=== PATIENT | female | born 1955 | race Caucasian/White ===

== ENCOUNTER 2016-07-24 06:30 | Day surgery (SDC) | payer MEDICARE, OTHER ==
[2016-07-21 16:26] VITALS: BMI 37.9
[~2016-07-24 06:30] MED LIST: ALPRAZolam 0.25 MG TAB PO PRN; ALPRAZolam 0.5 MG TAB PO PRN; ASPIRIN 325 MG TAB PO STA; ATORVASTATIN 80 MG TAB PO STA; NITROGLYCERIN SL TABS 0.4 MG TAB SUBLINGUAL PRN; SODIUM CHLORIDE 0.9% 1,000 ML in EMPTY BAG 1 BAG IV ONE
[2016-07-24 07:05] VITALS: TEMP 98.5
[2016-07-24] MEDS ORDERED: SODIUM CHLORIDE 0.9% 1,000 ML IV ONE (07:09)
[2016-07-24] MEDS ORDERED: LIDOCAINE 2% INJ 20 MG/ML (20 ML MDV) ONE (07:17)
[2016-07-24] MEDS ORDERED: MIDAZOLAM 2 MG/2 ML VIAL ONE (07:46)
[2016-07-24] MEDS ORDERED: MIDAZOLAM 2 MG/2 ML VIAL IVP ONE (07:47)
[2016-07-24] MEDS ORDERED: LIDOCAINE 2% INJ 20 MG/ML SQ ONE (07:48)
[2016-07-24] MEDS ORDERED: IOHEXOL 300 MG/ML 100 ML BOTTLE IV ONE (08:03)
[2016-07-24] MEDS ORDERED: RX INFO: IV CONTRAST WAS GIVEN 1 EACH MISC MISCELLANE PRN (08:05)
[2016-07-24] MEDS ORDERED: ATORVASTATIN 20 MG TAB PO STA (08:10)
[2016-07-24] MEDS ORDERED: SODIUM CHLORIDE 0.9% 1,000 ML IV SCH (08:15)
[2016-07-24 08:42] LABS: Cholesterol 149 mg/dL (<200); HDL Cholesterol 54 mg/dL (40-60); Triglycerides 65 mg/dL (<150)
--- NOTE | 2016-07-24 08:49 | CC ---
DATE OF SERVICE: INDICATION: Chest pain with abnormal stress test showing ischemia involving inferior wall. PROCEDURE NOTE: After obtaining informed consent, left heart catheterization and coronary angiogram are performed via the right femoral artery using standard Zachary catheters. Patient tolerated the procedure well without any obvious immediate complications. FINDINGS: 1. HEMODYNAMICS: Left ventricular end-diastolic pressure is 26 to 28 mm. There is no significant gradient across the aortic valve. 2. LEFT VENTRICULOGRAM: Left ventriculogram was not performed. 3. ANGIOGRAPHIC DATA: Left main coronary artery: Left main coronary artery is a normal size vessel and is free of stenosis. It divides into left anterior descending coronary artery and circumflex coronary artery. LAD shows a moderate atherosclerotic plaque in its midportion right at the origin of diagonal branch. It seems to be a 50% stenosis. Circumflex coronary artery is a nondominant vessel and is free of significant disease. Right coronary artery is a large dominant vessel and is free of significant stenosis. CONCLUSION: Moderate stenosis involving mid left anterior descending coronary artery right at the origin of diagonal branch. PLAN: Patient's chest discomfort was atypical. Stress test abnormality was in the inferior wall. Due to this, I am advising her medical therapy at this time with aspirin, beta blockers, nitrates and statins. If she has further episodes of chest pain, we are going to bring her back and perform angioplasty of the LAD. Thank you for allowing us to participate in the care of this pleasant lady.
[2016-07-24] MEDS ORDERED: ISOSORBIDE MONONITRATE ER 30 MG TAB.ER.24H PO SCH (09:00)
[2016-07-24] MEDS ORDERED: ATENOLOL 25 MG TAB PO SCH (09:00)
[2016-07-24 10:37] VITALS: RESP 18
[2016-07-24 11:30] VITALS: BP 132/70
== END 2016-07-24 16:10 | disposition home or self-care (01) ==
LOC: CATHCVL 06:30
PROVIDERS: ATTEND Internal Medicine Cardiovascular Disease
DX: I25.10 Atherosclerotic heart disease of native coronary artery without angina pectoris (principal); R94.39 Abnormal result of other cardiovascular function study; R07.2 Precordial pain; I10 Essential (primary) hypertension; E78.5 Hyperlipidemia, unspecified; Z79.82 Long term (current) use of aspirin; Z79.899 Other long term (current) drug therapy
CPT/HCPCS: 93458; 80061; C1894; C1769; J2001; J2250; Q9967

== ENCOUNTER 2016-07-26 21:33 | Observation (INO) | payer MEDICARE, OTHER ==
[2016-07-26 22:06] LABS: Basophils % (A) 0 %; CH 31.3; CHCM 32.7; Eosinophils # (A) 0.2 k/uL (0-0.7); Eosinophils % (A) 5 %; HCT 34.8 % (34.0-46.0); HDW 2.25; HGB 11.2 gm/dL (11.4-16.0); Luc # (Auto) 0.14; Luc % (Auto) 3; Lymphocytes # (A) 1.7 k/uL (1.0-4.8); Lymphocytes % (A) 36 %; MCHC 32.3 g/dL (31.0-37.0); MCV 95.9 fL (80.0-100.0); Mean Platelet Volume 8.1; Monocytes # (A) 0.2 k/uL (0-1.0); Monocytes % (A) 5 %; Neutrophils # (A) 2.4 k/uL (1.3-7.7); Neutrophils % (A) 51 %; RBC 3.63 m/uL (3.80-5.40); RDW 13.1 % (11.5-15.5); WBC 4.8 k/uL (3.8-10.6); WBC (Perox) 4.91
[2016-07-26 22:20] LABS: ALT 32 U/L (9-52); AST 26 U/L (14-36); Alkaline Phosphatase 84 U/L (38-126); Amylase 42 U/L (30-110); Anion Gap 8 mmol/L; Blood Urea Nitrogen 18 mg/dL (7-17); Calcium 8.9 mg/dL (8.4-10.2); Carbon Dioxide 30 mmol/L (22-30); Chloride 104 mmol/L (98-107); Glucose 108 mg/dL (74-99); Magnesium 1.7 mg/dL (1.6-2.3); Non-African American GFR(MDRD) 51 (>60 ml/min/1.73 sqM); Potassium 4.4 mmol/L (3.5-5.1); Sodium 142 mmol/L (137-145); Total Bilirubin 0.4 mg/dL (0.2-1.3); Total Protein 6.7 g/dL (6.3-8.2)
--- NOTE | 2016-07-26 22:24 | XR ---
EXAM: XR Chest, 1 View. CLINICAL HISTORY: Reason: chest pain TECHNIQUE: Frontal view of the chest. COMPARISON: Portal chest 06/02/2011 FINDINGS: Lungs: Lungs are clear Pleural space: Unremarkable. No pneumothorax. Heart: No cardiomegaly. Mediastinum: Unremarkable. Bones/joints: Unremarkable. IMPRESSION: No evidence of acute cardiopulmonary disease.
[2016-07-26 22:27] LABS: Creatine Kinase 99 U/L (30-135)
--- NOTE | 2016-07-26 22:35 | ED ---
Chest Pain HPI - General Chief Complaint: Chest Pain Stated Complaint: LALO/Chest Pain Time Seen by Provider: 07/26/16 21:47 Source: patient Mode of arrival: wheelchair Limitations: no limitations - History of Present Illness Initial Comments: This patient is 61-year-old woman who presents to be evaluated for substernal chest pain. She states that the pain is similar to pain she was having an last week when she had a heart catheterization. She was told she had a recurrence of similar pain to come back to the emergency department, as she may have to have stent placement. States that she was at rest today when the pain started, it is substernal, heavy sensation, and constant. She does not identify any worsening or relieving factors. MD Complaint: chest pain -: hour(s) Onset: during rest Pain Location: substernal Pain Radiation: LUE Severity: moderate Quality: heaviness Consistency: constant Improves With: nothing Worsens With: nothing Treatments Prior to Arrival: none - Related Data Home Medications Medication Instructions Recorded Confirmed Aspirin 81 mg PO DAILY 08/06/14 07/24/16 Cholecalciferol [Vitamin D3] 2,000 unit PO DAILY@1200 08/06/14 07/21/16 Citalopram Hydrobromide 40 mg PO DAILY 08/06/14 07/21/16 [Citalopram HBr] Cyanocobalamin [Vitamin B-12] 1,000 mcg PO Q2D 08/06/14 07/24/16 LORazepam [Ativan] 1 mg PO BID 08/06/14 07/21/16 Omeprazole [PriLOSEC] 40 mg PO AC-BRKFST 08/06/14 07/21/16 ARIPiprazole [Abilify] 20 mg PO DAILY 01/23/15 07/21/16 Ibuprofen [Motrin] 600 mg PO Q8HR PRN 01/23/15 07/24/16 QUEtiapine FUMARATE [SEROquel XR] 400 mg PO 1700 01/23/15 07/21/16 QUEtiapine [SEROquel] 400 mg PO HS 01/23/15 07/21/16 Atenolol [Tenormin] 25 mg PO DAILY 07/21/16 07/21/16 Gabapentin [Neurontin] 300 mg PO BID 07/21/16 07/21/16 Isosorbide Mononitrate [Isosorbide 30 mg PO DAILY 07/21/16 07/21/16 Mononitrate ER] Loratadine [Claritin] 10 mg PO DAILY 07/21/16 07/24/16 Sennosides [Senna] 8.6 mg PO BID 07/21/16 07/21/16 Acetaminophen [Pain Relief] 325 mg PO DIRECTED PRN 07/22/16 07/22/16 Nitroglycerin Sl Tabs [Nitrostat] 0.4 mg SUBLINGUAL Q5M PRN 07/22/16 07/22/16 Vit A/Vit C/Vit E/Zinc/Copper 1 cap PO DAILY 07/22/16 07/22/16 [ICAPS SOFTGEL] Allergies Allergy/AdvReac Type Severity Reaction Status Date / Time No Known Allergies Allergy Verified 07/21/16 16:09 Review of Systems ROS Statement: Those systems with pertinent positive or pertinent negative responses have been documented in the HPI. ROS Other: All systems not noted in ROS Statement are negative. Constitutional: Denies: fever, chills Respiratory: Denies: cough, dyspnea, wheezes Cardiovascular: Reports: as per HPI, chest pain. Denies: palpitations, dyspnea on exertion, orthopnea, edema, syncope Gastrointestinal: Denies: abdominal pain, nausea, vomiting Genitourinary: Denies: dysuria, frequency Skin: Denies: rash Neurological: Denies: headache, weakness EKG Findings - EKG Results: EKG: interpreted by CALE TORIBIO (Rate 81 bpm), sinus rhythm, normal axis, normal QRS, normal ST/T, no acute changes - [place], Pacemaker, Normal: Normal tracing: normal tracing Past Medical History Past Medical History: Asthma, CVA/TIA, Eye Disorder, GERD/Reflux, Hyperlipidemia , Hypertension Additional Past Medical History / Comment(s): Macular degeneration,bronchial asthma,Tamra-Caregiver at [facility] pt signs own consent. History of Any Multi-Drug Resistant Organisms: None Reported Past Surgical History: Back Surgery, Cholecystectomy, Ear Surgery, Hysterectomy , Tonsillectomy Additional Past Surgical History / Comment(s): eye surgery Past Anesthesia/Blood Transfusion Reactions: No Reported Reaction Past Psychological History: Anxiety, Schizoaffective Disorder Smoking Status: Never smoker Past Alcohol Use History: None Reported Past Drug Use History: None Reported - Past Family History Mother Family Medical History: Myocardial Infarction ([place]) Father Family Medical History: Cancer Additional Family Medical History / Comment(s): throat CA Brother(s) Family Medical History: Cancer Additional Family Medical History / Comment(s): liver General Exam Limitations: no limitations General appearance: alert, in no apparent distress Head exam: Present: atraumatic, normocephalic Eye exam: Present: normal appearance. Absent: scleral icterus, conjunctival injection ENT exam: Present: normal oropharynx Neck exam: Present: normal inspection Respiratory exam: Present: normal lung sounds bilaterally. Absent: respiratory distress, wheezes, rales, rhonchi, stridor Cardiovascular Exam: Present: regular rate, normal rhythm, normal heart sounds. Absent: systolic murmur, diastolic murmur, rubs, gallop GI/Abdominal exam: Present: soft. Absent: distended, tenderness, guarding, rebound, mass Extremities exam: Present: normal inspection, normal capillary refill. Absent: pedal edema, calf tenderness Back exam: Present: normal inspection. Absent: CVA tenderness (R), CVA tenderness (L) Neurological exam: Present: alert Skin exam: Present: warm, dry, intact, normal color. Absent: rash Course Vital Signs 07/26/16 07/26/16 07/26/16 21:37 22:31 22:44 Temperature 98.3 F 98 F Pulse Rate 81 69 72 Respiratory 20 20 18 Rate Blood Pressure 137/61 116/55 118/69 O2 Sat by Pulse 99 98 99 Oximetry 07/27/16 00:01 Temperature 97.7 F Pulse Rate 77 Respiratory 18 Rate Blood Pressure 142/83 O2 Sat by Pulse 98 Oximetry Disposition Clinical Impression: Chest pain Disposition: ADMITTED IP TO THIS HOSP Condition: Fair Instructions: Chest Pain (ED)
[2016-07-26 22:40] LABS: Creatine Kinase MB 0.9 ng/mL (0.0-2.4); Troponin I <0.012 ng/mL (0.000-0.034)
[2016-07-26] MEDS ORDERED: RX INFO: IV CONTRAST WAS GIVEN 1 EACH MISC MISCELLANE PRN (23:16)
--- NOTE | 2016-07-27 01:18 | CT ---
EXAM: CT Angiography Chest With Intravenous Contrast. CLINICAL HISTORY: Reason: Pain TECHNIQUE: Axial computed tomographic angiography images of the chest with intravenous contrast using pulmonary embolism protocol. CTDI is 13.20 mGy and DLP is 508.20 mGy-cm MIP reconstructed images were created and reviewed. COMPARISON: No relevant prior studies available. FINDINGS: Pulmonary arteries: No evidence of pulmonary emboli involving main pulmonary arteries or their major branches. Aorta: Heart size is within normal limits. No evidence of thoracic aortic aneurysm or dissection. Lungs: Strandy opacities anterior right upper lobe suggesting fibrotic scarring or subsegmental atelectasis. Strandy opacity involving the lingula and right lower lobe suggesting scarring or subsegmental atelectasis. Pleural space: No evidence of pericardial or pleural effusion. No pneumothorax. Heart: See above. Soft tissues: Unremarkable. Lymph nodes: Unremarkable. No enlarged lymph nodes. IMPRESSION: No evidence of pulmonary thromboembolic disease.
[2016-07-27] MEDS ORDERED: ENOXAPARIN 100 MG/ML SYRINGE SQ STA (01:31)
[2016-07-27] MEDS ORDERED: NITROGLYCERIN SL TABS 0.4 MG TAB SUBLINGUAL PRN (01:31)
[2016-07-27 02:23] VITALS: BMI 38.0
[2016-07-27 04:03] LABS: Creatine Kinase 78 U/L (30-135)
[2016-07-27 04:16] LABS: Creatine Kinase MB 0.8 ng/mL (0.0-2.4); Troponin I <0.012 ng/mL (0.000-0.034)
[2016-07-27] MEDS ORDERED: ISOSORBIDE MONONITRATE ER 30 MG TAB.ER.24H PO SCH (09:00)
[2016-07-27 11:30] LABS: Creatine Kinase 63 U/L (30-135)
[2016-07-27 11:40] LABS: Creatine Kinase MB 0.7 ng/mL (0.0-2.4)
[2016-07-27 11:44] LABS: Troponin I <0.012 ng/mL (0.000-0.034)
[2016-07-27] MEDS: CITALOPRAM HYDROBROMIDE 20 MG TAB PO SCH (11:52)
[2016-07-27] MEDS: SENNOSIDES 8.6 MG TAB PO SCH ×2 (11:52→20:28)
[2016-07-27] MEDS: ATENOLOL 25 MG TAB PO SCH (11:53)
[2016-07-27] MEDS: GABAPENTIN 300 MG CAP PO SCH ×2 (11:53→20:35)
[2016-07-27] MEDS: PANTOPRAZOLE 40 MG TABLET PO SCH (11:53)
[2016-07-27] MEDS: LORazepam 1 MG TAB PO SCH ×2 (11:56→20:31)
[2016-07-27] MEDS ORDERED: ISOSORBIDE MONONITRATE ER 30 MG TAB.ER.24H PO STA (12:19)
--- NOTE | 2016-07-27 12:40 | HP ---
DATE OF ADMISSION: Patient is a 61-year-old who came in with complaints of substernal chest pain. Patient had similar pain. Patient had a cardiac catheterization which showed 50% occlusion in the LAD. Patient was evaluated by Cardiology today. Patient was having some lightheadedness. Patient's pain was about 6/10 in severity, it lasted for a few minutes and patient denied any radiation of the chest pain. Patient denied any cough or runny nose. Patient's chest is nonpleuritic, not associated with food and patient had troponins that are negative. EKG's are normal sinus rhythm. Patient is being transferred to selective care as per recommendation from Cardiology with possibility of repeat cardiac catheterization. Patient had a recent cardiac cath which showed 58% occlusion in LAD as mentioned above because of the abnormal stress test. Patient's chest pain is nonreproducible. REVIEW OF SYSTEMS: CONSTITUTIONAL: No fever, no malaise, no fatigue. HEENT: No recent visual problems or hearing problems. Denied any sore throat. CARDIOVASCULAR: As described in HPI. PULMONARY: No shortness of breath, no cough, no hemoptysis. GASTROINTESTINAL: No diarrhea, no nausea, no vomiting, no abdominal pain. Normoactive bowel sounds. NEUROLOGICAL: No headaches, no weakness, no numbness. HEMATOLOGICAL: Denies any bleeding or petechiae. GENITOURINARY: Denies any burning micturition, frequency, or urgency. MUSCULOSKELETAL/RHEUMATOLOGICAL: Denies any joint pain, swelling, or any muscle pain. ENDOCRINE: Denies any polyuria or polydipsia. The rest of the 14 point review of systems is negative. Home medications include: 1. Aspirin. 2. Cholecalciferol. 3. Citalopram. 4. Cyanocobalamin. 5. Lorazepam. 6. Omeprazole. 7. Ibuprofen. 8. Seroquel. 9. Atenolol. 10. Gabapentin. 11. Isosorbide mononitrate. 12. Loratadine. 13. Senna. 14. Acetaminophen. 15. Sublingual nitroglycerin. 16. Vitamin supplementation. ALLERGIES: No known drug allergies. PAST MEDICAL HISTORY: Significant for CVA/TIA, gastroesophageal reflux disease, hyperlipidemia, hypertension, asthma, macular degeneration, bronchial asthma. Patient had a hysterectomy, tonsillectomy in the past. The patient has schizoaffective disorder. SOCIAL HISTORY: The patient denied any smoking, alcohol abuse or any drug abuse. FAMILY HISTORY: Mother had myocardial infarction. Denied any premature coronary artery disease. Father had throat cancer and brother had liver cancer. PHYSICAL EXAMINATION: Temperature 98.4, pulse of 79, respiratory rate of 16, blood pressure is 151/77, saturating at 94% on room air. GENERAL: The patient is alert and oriented x3, not in any acute distress. Well developed, well nourished. HEENT: Pupils are round and equally reacting to light. EOMI. No scleral icterus. No conjunctival pallor. Normocephalic, atraumatic. No pharyngeal erythema. No thyromegaly. CARDIOVASCULAR: S1 and S2 present. No murmurs, rubs, or gallops. PULMONARY: Chest is clear to auscultation, no wheezing or crackles. ABDOMEN: Soft, nontender, nondistended, normoactive bowel sounds. No palpable organomegaly. MUSCULOSKELETAL: No joint swelling or deformity. EXTREMITIES: No cyanosis, clubbing, or pedal edema. NEUROLOGICAL: Gross neurological examination did not reveal any focal deficits. SKIN: No rashes. LABORATORY DATA: EKG as mentioned above. Troponins as mentioned above. CBC, CMP are essentially abnormal for mildly elevated creatinine of 1.1. D-dimer is 3.96. CT angio of the chest did not show any pulmonary embolism. No pneumonic process in the x-ray. ASSESSMENT AND PLAN: 1. Chest pain; unsure of the exact etiology. Patient underwent cardiac catheterization which showed about 50% occlusion in the LAD. Further management as per Cardiology. 2. Gastroesophageal reflux disease. 3. Schizoaffective disorder. 4. Peripheral neuropathy for which patient is on Gabapentin, unsure of the etiology of neuropathy. 5. Hyperlipidemia. 6. Hypertension. 7. Asthma not in acute exacerbation. 8. History of cerebrovascular accident, transient ischemic attack in the past. PLAN: As per Cardiology, patient is being transferred to selective unit. Further management. Cardiac catheterization versus medical management as per Cardiology as recent cardiac did not show any stentible occlusion. I cannot find any other etiology for her chest pain, can be musculoskeletal though. Will continue the present medications including beta kathy. Patient has mild adrenal failure not sure whether patient has acute renal failure or CKD.
[2016-07-27] MEDS: VIT A,C & E-LUTEIN-MINERALS 1 EACH TAB PO SCH (13:10)
[2016-07-27] MEDS ORDERED: QUEtiapine XR 200 MG TAB.ER.24H PO SCH (17:00)
[2016-07-27] MEDS ORDERED: QUEtiapine 200 MG TAB PO SCH (21:00)
[2016-07-27] MEDS ORDERED: ACETAMINOPHEN TAB 325 MG TAB PO PRN (23:19)
[2016-07-28 06:46] LABS: Cholesterol 114 mg/dL (<200); HDL Cholesterol 53 mg/dL (40-60); Triglycerides 101 mg/dL (<150)
[2016-07-28] MEDS: CITALOPRAM HYDROBROMIDE 20 MG TAB PO SCH (08:51)
[2016-07-28] MEDS: PANTOPRAZOLE 40 MG TABLET PO SCH (08:51)
[2016-07-28] MEDS: SENNOSIDES 8.6 MG TAB PO SCH (08:51)
[2016-07-28] MEDS: ATENOLOL 25 MG TAB PO SCH (08:51)
[2016-07-28] MEDS: LORazepam 1 MG TAB PO SCH (08:51)
[2016-07-28] MEDS: GABAPENTIN 300 MG CAP PO SCH (08:52)
[2016-07-28] MEDS ORDERED: ISOSORBIDE MONONITRATE ER 60 MG TAB.ER.24H PO SCH (09:00)
[2016-07-28] MEDS ORDERED: ASPIRIN 325 MG TAB PO SCH (09:00)
[2016-07-28] MEDS: VIT A,C & E-LUTEIN-MINERALS 1 EACH TAB PO SCH (12:27)
[2016-07-28 13:11] VITALS: RESP 18
--- NOTE | 2016-07-28 14:16 | P.PN ---
Subjective Date of service 07/28/2016. Progress note being dictated for Dr. Mccarthy. Interval history: This a 61-year-old female admitted with chest pain and multiple other medical issues, including recent cardiac cath. Earlier this morning with episode of chest pain located at the base of the throat, level of hortensia radiating to bilateral sides of neck, greater on the right lasting greater than half an hour, relieved by 2 nitroglycerin sl. Afebrile, T-max 100.1. Objective - Vital Signs Vital signs: Vital Signs Temp 97.8 F 07/28/16 12:00 Pulse 58 L 07/28/16 12:00 Resp 18 07/28/16 12:00 BP 121/73 07/28/16 12:00 Pulse Ox 94 L 07/28/16 12:00 Intake & Output 07/27/16 07/28/16 07/28/16 18:59 06:59 18:59 Intake Total 836 0 600 Output Total 350 Balance 836 -350 600 Weight 97.7 kg Intake: Oral 836 0 600 Output: Urine 350 Other: Voiding Method Toilet Toilet # Voids 1 1 0 - Exam PHYSICAL EXAM: VITAL SIGNS: As above GENERAL: [Sitting up in bed, no acute distress] HEENT: [Pupils equal conjunctiva normal. No conjunctival pallor, normocephalic , atraumatic.] NECK: [Supple, no JVD] RESPIRATORY EFFORT:[Normal] LUNGS: [Clear to auscultation, no wheezing crackles or rhonchi] CARDIOVASCULAR[regular S1 and S2, no murmurs rubs or gallops, no edema] GI: [Abdomen soft, nontender, positive bowel sounds.] PSYCH: [Alert and oriented -3, mood and affect normal.] NEURO: No focal deficits, moves all 4 extremities ,strength and sensation intact - Labs CBC & Chem 7: 07/26/16 21:53 07/26/16 21:53 Assessment and Plan Plan: 1. [Chest pain, etiology unclear. Recent cardiac cath revealing 50% occluded LAD]. 2. [Gastroesophageal reflux disease]. 3. [Schizoaffective disorder]. 4. [Peripheral neuropathy ]. 5. [Hyperlipidemia]. 6. [Hypertension]. 7. [Asthma, no acute exacerbation of]. 8. History of CVA, TIA 9. Acute renal failure, possibly CKD, stage 3 Plan: Continue on current medication regime , beta kathy, monitoring and symptomatic treatment. Close monitoring of renal function with BMP pending. Follow closely with cardiology. Further recommendations to follow. The impression and plan of care has been dictated as directed. : I performed a H&P examination of this patient and discussed the same with the dictator. I agree with the dictator's note. Any additional findings/opinions/ etc. will be noted.
--- NOTE | 2016-07-28 15:54 | P.DS ---
Providers Date of admission: 07/27/16 01:33 Attending physician: Pardeep Connell Primary care physician: Loki Gomes [facility] Course: Final diagnoses: 1. [Chest pain, etiology unclear. Recent cardiac cath revealing 50% occluded LAD]. 2. [Gastroesophageal reflux disease]. 3. [Schizoaffective disorder]. 4. [Peripheral neuropathy ]. 5. [Hyperlipidemia]. 6. [Hypertension]. 7. [Asthma, no acute exacerbation of]. 8. History of CVA, TIA 9. Acute renal failure, possibly CKD, stage 3 Hospital course:This a 61-year-old female admitted with chest pain in a patient with cardiac cath last week which showed 58% occluded LAD and multiple other medical issues. EKG normal sinus rhythm, troponins negative 3. D-dimer elevated, CTA negative for PE. Evaluated by cardiology. Imdur added to med regime. Significant clinical improvement. Patient has been cleared for discharge by cardiology. Patient is being discharged home in a stable condition with guarded prognosis. Patient Condition at Discharge: Stable Plan - Discharge Summary New Discharge Prescriptions: Isosorbide Mononitrate ER [Imdur] 60 mg PO DAILY #30 tab.er.24h Discharge Medication List Cholecalciferol [Vitamin D3] 2,000 unit PO DAILY 08/06/14 [History] Citalopram Hydrobromide [Citalopram HBr] 40 mg PO DAILY 08/06/14 [History] Cyanocobalamin [Vitamin B-12] 1,000 mcg PO Q2D 08/06/14 [History] LORazepam [Ativan] 1 mg PO BID 08/06/14 [History] Omeprazole [PriLOSEC] 40 mg PO AC-BRKFST 08/06/14 [History] Atenolol [Tenormin] 25 mg PO DAILY 07/21/16 [History] Gabapentin [Neurontin] 300 mg PO BID 07/21/16 [History] Isosorbide Mononitrate [Isosorbide Mononitrate ER] 30 mg PO DAILY 07/21/16 [ History] Loratadine [Claritin] 10 mg PO DAILY 07/21/16 [History] Sennosides [Senna] 8.6 mg PO BID 07/21/16 [History] Acetaminophen [Pain Relief] 650 mg PO Q6H PRN 07/22/16 [History] Nitroglycerin Sl Tabs [Nitrostat] 0.4 mg SUBLINGUAL Q5M PRN 07/22/16 [History] Vit A/Vit C/Vit E/Zinc/Copper [ICAPS SOFTGEL] 1 cap PO DAILY 07/22/16 [History] ARIPiprazole [Abilify] 20 mg PO DAILY 07/27/16 [History] Aspirin EC [Ecotrin Low Dose] 81 mg PO DAILY 07/27/16 [History] Calcium Carbonate [Tums] 500 mg PO TID PRN 07/27/16 [History] QUEtiapine FUMARATE [Seroquel Xr] 400 mg PO DAILY@1600 07/27/16 [History] QUEtiapine [SEROquel] 400 mg PO HS 07/27/16 [History] Simvastatin [Zocor] 20 mg PO HS 07/27/16 [History] Isosorbide Mononitrate ER [Imdur] 60 mg PO DAILY #30 tab.er.24h 07/28/16 [Rx] Follow up Appointment(s)/Referral(s): Loki Gomes MD [Primary Care Provider] - 3 Days Patient Instructions/Handouts: Chest Pain (ED) Activity/Diet/Wound Care/Special Instructions: Pending cardiology clearance .Confirm cardiology follow-up appointment prior to discharge
[2016-07-28 16:04] VITALS: BP 110/68; PULSE 63; TEMP 98.1
--- NOTE | 2016-07-28 16:19 | P.PN ---
Subjective Principal diagnosis: Chest pain This is a 61-year-old female patient admitted to the hospital with symptoms of substernal chest discomfort. Patient did undergo cardiac catheterization recently which revealed a 50% occlusion in the LAD. These films were reviewed by Dr. Oleary, and a discussion was made with him by Dr. VC Hsu, decision was made to continue maximal medical therapy. Patient was seen and examined this morning, denies any further chest pain or difficulty in breathing. She's been up ambulating without any difficulty. The stable. Objective - Vital Signs Vital signs: Vital Signs Temp 98.1 F 07/28/16 15:40 Pulse 63 07/28/16 15:40 Resp 18 07/28/16 15:40 BP 110/68 07/28/16 15:40 Pulse Ox 92 L 07/28/16 15:40 Intake & Output 07/27/16 07/28/16 07/28/16 18:59 06:59 18:59 Intake Total 836 0 600 Output Total 350 Balance 836 -350 600 Weight 97.7 kg Intake: Oral 836 0 600 Output: Urine 350 Other: Voiding Method Toilet Toilet # Voids 1 1 0 - Exam PHYSICAL EXAMINATION: HEENT: Head is atraumatic, normocephalic. Pupils equal, round. Neck is supple. There is no elevated jugular venous pressure. HEART EXAMINATION: Heart S1, S2 normal. No murmur or gallop heard. CHEST EXAMINATION: Lungs are clear to auscultation and precussion. No chest wall tenderness is noted on palpation or with deep breathing. ABDOMEN: Soft, nontender. Bowel sounds are heard. No organomegaly noted. EXTREMITIES: 2+ peripheral pulses with no evidence of peripheral edema and no calf tenderness noted. NEUROLOGIC patient is awake, alert and oriented -3. . - Labs CBC & Chem 7: 07/26/16 21:53 07/26/16 21:53 Assessment and Plan (1) CAD (coronary artery disease) Status: Acute (2) GERD (gastroesophageal reflux disease) Status: Acute (3) Schizo affective schizophrenia Status: Acute (4) HTN (hypertension) Status: Acute (5) Hypertension Status: Acute (6) Asthma Status: Acute (7) CVA (cerebral vascular accident) Status: Acute (8) Chest pain Status: Acute Plan: Cardiology's perspective, patient may be able to be discharged home today. We' ll make a follow-up appointment for her to see Dr. Oleary in the office post discharge. DNP note has been reviewed, I agree with a documented findings and plan of care. Patient was seen and examined.
[2016-07-28 18:41] LABS: Anion Gap 8 mmol/L; Blood Urea Nitrogen 20 mg/dL (7-17); Carbon Dioxide 31 mmol/L (22-30); Chloride 103 mmol/L (98-107); Glucose 87 mg/dL (74-99); Non-African American GFR(MDRD) 55 (>60 ml/min/1.73 sqM); Potassium 5.1 mmol/L (3.5-5.1); Sodium 142 mmol/L (137-145)
--- NOTE | 2016-07-28 21:13 | CONS ---
DATE OF CONSULTATION: 07/27/2016 Mrs. Corey is a 61-year-old female who is seen for evaluation of chest pain. Patient's medical records were reviewed. Patient was admitted through the emergency room with the complaint of intermittent substernal and epigastric pain. The pain does not radiate to the arm, neck or jaw. This patient recently underwent cardiac catheterization 2 days ago. Patient was found to have only mild disease in the LAD and was advised medical treatment. Patient's films were the reviewed with Dr. Oleary. There is only mild disease in the LAD and does not require FFR. In view of that, I would recommend that the patient be treated medically. Patient's EKG and cardiac enzymes are normal. Physical examination at present reveals blood pressure to be 118/67 mmHg. Head/ENT examination is negative. Neck is supple. There is no increase in jugular venous pressure. Lungs are clinically clear to auscultation and percussion. Abdomen is negative. EXTREMITIES: Peripheral pulsations are 2+. EKG shows normal sinus rhythm without any acute ischemic changes. Cardiac enzymes are normal. Patient's cardiac catheterization films were reviewed. Patient has only mild disease in the mid LAD; does not require further evaluation with FFR and her stress test did not show any evidence of ischemia in LAD distribution. Clinically patient's chest pains are atypical angina pain. We will recommend symptomatic medical therapy. Patient will follow with Dr. Jade as an outpatient.
== END 2016-07-28 18:07 ==
LOC: EC 21:33 → 3OBS 07-27 01:33 → OBSVTOIN 07-27 11:18 → INTOOBSV 07-27 11:18 → 6SEL 07-27 18:43
PROVIDERS: ADMIT Hospitalist; ATTEND Hospitalist
DX: R07.89 Other chest pain (principal); R42 Dizziness and giddiness; F25.9 Schizoaffective disorder, unspecified; K21.9 Gastro-esophageal reflux disease without esophagitis; G62.9 Polyneuropathy, unspecified; E78.5 Hyperlipidemia, unspecified; I10 Essential (primary) hypertension; J45.909 Unspecified asthma, uncomplicated; N17.9 Acute kidney failure, unspecified; I25.10 Atherosclerotic heart disease of native coronary artery without angina pectoris; R79.89 Other specified abnormal findings of blood chemistry; F41.9 Anxiety disorder, unspecified; H35.30 Unspecified macular degeneration; Z79.82 Long term (current) use of aspirin; Z79.899 Other long term (current) drug therapy; Z86.73 Personal history of transient ischemic attack (TIA), and cerebral infarction without residual deficits; Z82.49 Family history of ischemic heart disease and other diseases of the circulatory system
CPT/HCPCS: 36415; 93005; 85379; 80061; 80053; 80048; 82150; 82550 ×2; 82553 ×2; 83690; 83735; 84484 ×2; 85025; 71010; 71275; 99285; 96372; G0378 ×3; Q9967; J1650

== ENCOUNTER 2016-12-04 19:09 | Inpatient (IN) | payer MEDICARE, OTHER ==
[2016-12-04] MEDS ORDERED: SODIUM CHLORIDE 0.9% 1,000 ML IV STA (19:37)
[2016-12-04] MEDS: SODIUM CHLORIDE 0.9% 1,000 ML IV STA ×4 (19:38→21:49)
[2016-12-04] MEDS ORDERED: methylPREDNISolone SOD SUCCI 125 MG/2 ML VIAL IV STA (19:38)
[2016-12-04] MEDS ORDERED: FAMOTIDINE 20 MG/2 ML VIAL IV STA (19:39)
[2016-12-04] MEDS ORDERED: NALOXONE 0.4 MG/ML 1 ML VIAL IV STA (19:40)
--- NOTE | 2016-12-04 19:43 | ED ---
General Adult HPI - General Chief complaint: Weakness Stated complaint: allergic reaction Time Seen by Provider: 12/04/16 19:31 Source: patient, EMS Mode of arrival: EMS - History of Present Illness Initial comments: This 61-year-old white female presents with the complaint of some weakness which is generalized as well as some shortness of breath which is been present for approximately 3 days. She then developed a hive-like moderately itchy rash starting at approximately 4:00 today. This is diffuse in nature. She denies any chest pain. She denies any new medications. She denies any insect stings. She's never had this similar type of rash. She denies any recent infections or fevers. She does present via EMS and did receive a breathing treatment as well as epinephrine and Benadryl and route. She is presenting with some slurred speech as well. She is hypotensive upon arrival. No other complaints or modifying factors. Overall she is a fairly poor historian. The patient admits on recheck that she may actually have been stung by something 2 days ago. She is unsure exactly what may have happened but she did get some significant swelling and induration in her left lateral breast and axillary region. There are no family members with her. She apparently is [facility]. 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 They relate that the rash came on tonight though. - Related Data Home Medications Medication Instructions Recorded Confirmed Cholecalciferol [Vitamin D3] 2,000 unit PO DAILY 08/06/14 12/04/16 Citalopram Hydrobromide 40 mg PO DAILY 08/06/14 12/04/16 [Citalopram HBr] Cyanocobalamin [Vitamin B-12] 1,000 mcg PO Q48H 08/06/14 12/04/16 LORazepam [Ativan] 1 mg PO BID 08/06/14 12/04/16 Omeprazole [PriLOSEC] 40 mg PO AC-BRKFST 08/06/14 12/04/16 Atenolol [Tenormin] 25 mg PO DAILY 07/21/16 12/04/16 Gabapentin [Neurontin] 300 mg PO BID 07/21/16 12/04/16 Loratadine [Claritin] 10 mg PO DAILY 07/21/16 12/04/16 Sennosides [Senna] 8.6 mg PO BID 07/21/16 12/04/16 Nitroglycerin Sl Tabs [Nitrostat] 0.4 mg SUBLINGUAL Q5M PRN 07/22/16 12/04/16 Vit A/Vit C/Vit E/Zinc/Copper 1 cap PO DAILY 07/22/16 12/04/16 [ICAPS SOFTGEL] Aspirin EC [Ecotrin Low Dose] 81 mg PO DAILY 07/27/16 12/04/16 Calcium Carbonate [Tums] 500 mg PO TID PRN 07/27/16 12/04/16 QUEtiapine FUMARATE [Seroquel Xr] 400 mg PO DAILY@1600 07/27/16 12/04/16 QUEtiapine [SEROquel] 400 mg PO HS 07/27/16 12/04/16 Simvastatin [Zocor] 20 mg PO HS 07/27/16 12/04/16 Ibuprofen [Motrin] 600 mg PO Q6H PRN 12/04/16 12/04/16 Allergies Allergy/AdvReac Type Severity Reaction Status Date / Time No Known Allergies Allergy Verified 12/04/16 20:00 Review of Systems ROS Statement: Those systems with pertinent positive or pertinent negative responses have been documented in the HPI. ROS Other: All systems not noted in ROS Statement are negative. 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 History of Any Multi-Drug Resistant Organisms: None Reported Past Surgical History: Back Surgery, Cholecystectomy, Ear Surgery, Heart Catheterization, Hysterectomy, Tonsillectomy Additional Past Surgical History / Comment(s): eye surgery, cardiac cath on 2016 with moderate stenosis of LAD noted - no stenting at that time recommend medical management and return for angioplasty if sx persist Past Anesthesia/Blood Transfusion Reactions: No Reported Reaction Past Psychological History: Anxiety, Schizoaffective Disorder Smoking Status: Never smoker Past Alcohol Use History: None Reported Past Drug Use History: None Reported - Past Family History Mother Family Medical History: Myocardial Infarction ([place]) Father Family Medical History: Cancer Additional Family Medical History / Comment(s): throat CA Brother(s) Family Medical History: Cancer Additional Family Medical History / Comment(s): liver General Exam - General Exam Comments Initial Comments: GENERAL: The patient is well nourished and well hydrated. VITAL SIGNS: Heart rate, blood pressure, respiratory rate reviewed as recorded in nurse's notes. EYES: Pupils are round and reactive. Extraocular movements are intact. No conjunctival / lid redness or swelling. ENT: No external evidence of injury, swelling, or ecchymosis. Airway is patent. Throat is clear. NECK: Nontender. No swelling or evidence of injury. No subcutaneous emphysema. Trachea is midline. No thyroid mass. HEART: Regular rate and rhythm. Good peripheral pulses. LUNGS/CHEST: Breath sounds clear and equal bilaterally. No rales, rhonchi, or wheezes. No ecchymosis, subcutaneous emphysema, or tenderness. ABDOMEN: Abdomen soft without tenderness. No palpable masses or organomegaly. No peritoneal signs. No abdominal wall swelling or ecchymosis. EXTREMITIES: No extremity tenderness. Normal muscle tone and function. No thoracolumbar tenderness. NEUROLOGIC: Sensation is grossly intact. Cranial nerve exam reveals face is symmetrical, tongue is midline, speech is slurred which is apparently chronic for her. SKIN: There is a diffuse erythematous hive-like rash noted throughout most of body. There is also induration and erythema with mild ecchymosis noted to the lateral breast and into the axillary region that extends posteriorly and into the proximal left arm. PSYCHIATRIC: Alert and oriented. Appropriate behavior and judgment. Course Vital Signs 12/04/16 12/04/16 12/04/16 19:17 19:29 19:51 Temperature 97.2 F L Pulse Rate 89 91 Respiratory 17 Rate Blood Pressure 82/46 76/52 98/56 O2 Sat by Pulse 93 L 95 Oximetry 12/04/16 12/04/16 12/04/16 20:03 20:20 20:26 Temperature Pulse Rate 91 100 Respiratory 89 H Rate Blood Pressure 78/52 89/62 O2 Sat by Pulse 100 98 Oximetry 12/04/16 20:36 Temperature Pulse Rate 95 Respiratory Rate Blood Pressure 103/62 O2 Sat by Pulse 100 Oximetry Medical Decision Making - Medical Decision Making The patient was seen and examined. All diagnostics are reviewed. The EKG shows a normal sinus rhythm at a rate of 92. There is no acute ST-T wave changes identified. The VT interval is 138, QRS duration is 84, and QTC intervals 440. An IV is established and she is hydrated. She remains hypotensive and receives additional IV fluids. Narcan is administered without any significant change in her condition. She also receives some Pepcid and Solu -Medrol intravenously and a DuoNeb breathing treatment. Due to her hypotension and possibility of an anaphylactic reaction she is administered 0.5 mg of epinephrine intramuscularly. The rash also looks like it potentially could be a an erythema multiforme type of rash. The rash disappears with the epinephrine given in the emergency department. It is felt as though she does have a cellulitis in her left axillary region and she is started on IV antibiotics. She does receive ample fluid hydration and is currently on her third liter of fluids. The chest x-ray does not show any acute processes. Does appear that she is in acute renal failure and this isn't markedly changed to previous labs done several months ago. Her d-dimer is significantly elevated as well. Due to her renal failure I am unable to perform a computed tomography scan of her thorax at this time and a PE is not definitively ruled out at this point. She'll be started on some heparin. The BNP is significantly elevated but there are no signs of heart failure on chest x-ray. The computed tomography scan of the brain was negative for acute process. Her CO2 is low likely representing dehydration and prerenal failure. She is agreeable to admission. Case is discussed with internal medicine and they are agreeable to admission with infectious disease to consult. It appears that she likely does have an anaphylaxis type of syndrome but also potentially a septic syndrome with the cellulitis. She will be admitted to the hospital for full admit. Approximately 30 minutes of critical care time is utilized and the treatment of the patient. - Lab Data Result diagrams: 12/04/16 19:36 12/04/16 19:36 Lab Results 12/04/16 12/04/16 12/04/16 Range/Units 19:36 19:36 19:36 WBC 4.5 (3.8-10.6) k/uL RBC 3.67 L (3.80-5.40) m/uL Hgb 11.9 (11.4-16.0) gm/dL Hct 34.7 (34.0-46.0) % MCV 94.5 (80.0-100.0) fL MCH 32.5 (25.0-35.0) pg MCHC 34.3 (31.0-37.0) g/dL RDW 12.3 (11.5-15.5) % Plt Count 186 (150-450) k/uL Neutrophils % (Manual) 58.0 % Band Neutrophils % 3.0 % Lymphocytes % (Manual) 12.0 % Monocytes % (Manual) 25.0 % Eosinophils % (Manual) 2.0 % Neutrophils # (Manual) 2.7 (1.3-7.7) k/uL Lymphocytes # (Manual) 0.5 L (1.0-4.8) k/uL Monocytes # (Manual) 1.1 H (0-1.0) k/uL Eosinophils # (Manual) 0.1 (0-0.7) k/uL Nucleated RBCs 0 (0-0) /100 WBC Polychromasia Present PT (9.0-12.0) sec INR (<1.2) APTT (22.0-30.0) sec D-Dimer (<0.60) mg/L FEU Sodium 127 L (137-145) mmol/L Potassium 4.3 (3.5-5.1) mmol/L Chloride 96 L (98-107) mmol/L Carbon Dioxide 18 L (22-30) mmol/L Anion Gap 13 mmol/L BUN 57 H (7-17) mg/dL Creatinine 3.40 H (0.52-1.04) mg/dL Est GFR (MDRD) Af Amer 17 (>60 ml/min/1.73 sqM) Est GFR (MDRD) Non-Af 14 (>60 ml/min/1.73 sqM) Glucose 130 H (74-99) mg/dL POC Glucose (mg/dL) (75-99) mg/dL POC Glu Psychology Fellow ID Plasma Lactic Acid Britton (0.7-2.0) mmol/L Calcium 8.4 (8.4-10.2) mg/dL Phosphorus 4.8 H (2.5-4.5) mg/dL Magnesium 1.8 (1.6-2.3) mg/dL Total Bilirubin 1.3 (0.2-1.3) mg/dL AST 53 H (14-36) U/L ALT 37 (9-52) U/L Alkaline Phosphatase 69 (38-126) U/L Total Creatine Kinase 567 H (30-135) U/L CK-MB (CK-2) 5.4 H* (0.0-2.4) ng/mL CK-MB (CK-2) Rel Index 1.0 Troponin I <0.012 (0.000-0.034) ng/mL NT-Pro-B Natriuret Pep pg/mL Total Protein 5.3 L (6.3-8.2) g/dL Albumin 2.6 L (3.5-5.0) g/dL Urine Color Urine Appearance (Clear) Urine pH (5.0-8.0) Ur Specific [place] (1.001-1.035) Urine Protein (Negative) Urine Glucose (UA) (Negative) Urine Ketones (Negative) Urine Blood (Negative) Urine Nitrite (Negative) Urine Bilirubin (Negative) Urine Urobilinogen (<2.0) mg/dL Ur Leukocyte Esterase (Negative) Urine RBC (0-5) /hpf Urine WBC (0-5) /hpf Urine Bacteria (None) /hpf Hyaline Casts (0-2) /lpf Urine Yeast (Budding) (None) /hpf Urine Opiates Screen (NotDetected) Ur Oxycodone Screen (NotDetected) Urine Methadone Screen (NotDetected) Ur Propoxyphene Screen (NotDetected) Ur Barbiturates Screen (NotDetected) U Tricyclic Antidepress (NotDetected) Ur Phencyclidine Scrn (NotDetected) Ur Amphetamines Screen (NotDetected) U Methamphetamines Scrn (NotDetected) U Benzodiazepines Scrn (NotDetected) Urine Cocaine Screen (NotDetected) U Marijuana (THC) Screen (NotDetected) 12/04/16 12/04/16 12/04/16 Range/Units 19:36 19:36 19:36 WBC (3.8-10.6) k/uL RBC (3.80-5.40) m/uL Hgb (11.4-16.0) gm/dL Hct (34.0-46.0) % MCV (80.0-100.0) fL MCH (25.0-35.0) pg MCHC (31.0-37.0) g/dL RDW (11.5-15.5) % Plt Count (150-450) k/uL Neutrophils % (Manual) % Band Neutrophils % % Lymphocytes % (Manual) % Monocytes % (Manual) % Eosinophils % (Manual) % Neutrophils # (Manual) (1.3-7.7) k/uL Lymphocytes # (Manual) (1.0-4.8) k/uL Monocytes # (Manual) (0-1.0) k/uL Eosinophils # (Manual) (0-0.7) k/uL Nucleated RBCs (0-0) /100 WBC Polychromasia PT 10.6 (9.0-12.0) sec INR 1.0 (<1.2) APTT 30.1 H (22.0-30.0) sec D-Dimer 5.28 H (<0.60) mg/L FEU Sodium (137-145) mmol/L Potassium (3.5-5.1) mmol/L Chloride (98-107) mmol/L Carbon Dioxide (22-30) mmol/L Anion Gap mmol/L BUN (7-17) mg/dL Creatinine (0.52-1.04) mg/dL Est GFR (MDRD) Af Amer (>60 ml/min/1.73 sqM) Est GFR (MDRD) Non-Af (>60 ml/min/1.73 sqM) Glucose (74-99) mg/dL POC Glucose (mg/dL) (75-99) mg/dL POC Glu Psychology Fellow ID Plasma Lactic Acid Britton 2.5 H* (0.7-2.0) mmol/L Calcium (8.4-10.2) mg/dL Phosphorus (2.5-4.5) mg/dL Magnesium (1.6-2.3) mg/dL Total Bilirubin (0.2-1.3) mg/dL AST (14-36) U/L ALT (9-52) U/L Alkaline Phosphatase (38-126) U/L Total Creatine Kinase (30-135) U/L CK-MB (CK-2) (0.0-2.4) ng/mL CK-MB (CK-2) Rel Index Troponin I (0.000-0.034) ng/mL NT-Pro-B Natriuret Pep 8270 pg/mL Total Protein (6.3-8.2) g/dL Albumin (3.5-5.0) g/dL Urine Color Urine Appearance (Clear) Urine pH (5.0-8.0) Ur Specific [place] (1.001-1.035) Urine Protein (Negative) Urine Glucose (UA) (Negative) Urine Ketones (Negative) Urine Blood (Negative) Urine Nitrite (Negative) Urine Bilirubin (Negative) Urine Urobilinogen (<2.0) mg/dL Ur Leukocyte Esterase (Negative) Urine RBC (0-5) /hpf Urine WBC (0-5) /hpf Urine Bacteria (None) /hpf Hyaline Casts (0-2) /lpf Urine Yeast (Budding) (None) /hpf Urine Opiates Screen (NotDetected) Ur Oxycodone Screen (NotDetected) Urine Methadone Screen (NotDetected) Ur Propoxyphene Screen (NotDetected) Ur Barbiturates Screen (NotDetected) U Tricyclic Antidepress (NotDetected) Ur Phencyclidine Scrn (NotDetected) Ur Amphetamines Screen (NotDetected) U Methamphetamines Scrn (NotDetected) U Benzodiazepines Scrn (NotDetected) Urine Cocaine Screen (NotDetected) U Marijuana (THC) Screen (NotDetected) 12/04/16 12/04/16 12/04/16 Range/Units 19:44 20:18 20:18 WBC (3.8-10.6) k/uL RBC (3.80-5.40) m/uL Hgb (11.4-16.0) gm/dL Hct (34.0-46.0) % MCV (80.0-100.0) fL MCH (25.0-35.0) pg MCHC (31.0-37.0) g/dL RDW (11.5-15.5) % Plt Count (150-450) k/uL Neutrophils % (Manual) % Band Neutrophils % % Lymphocytes % (Manual) % Monocytes % (Manual) % Eosinophils % (Manual) % Neutrophils # (Manual) (1.3-7.7) k/uL Lymphocytes # (Manual) (1.0-4.8) k/uL Monocytes # (Manual) (0-1.0) k/uL Eosinophils # (Manual) (0-0.7) k/uL Nucleated RBCs (0-0) /100 WBC Polychromasia PT (9.0-12.0) sec INR (<1.2) APTT (22.0-30.0) sec D-Dimer (<0.60) mg/L FEU Sodium (137-145) mmol/L Potassium (3.5-5.1) mmol/L Chloride (98-107) mmol/L Carbon Dioxide (22-30) mmol/L Anion Gap mmol/L BUN (7-17) mg/dL Creatinine (0.52-1.04) mg/dL Est GFR (MDRD) Af Amer (>60 ml/min/1.73 sqM) Est GFR (MDRD) Non-Af (>60 ml/min/1.73 sqM) Glucose (74-99) mg/dL POC Glucose (mg/dL) 137 H (75-99) mg/dL POC Glu Psychology Fellow Bill Amador Plasma Lactic Acid Britton (0.7-2.0) mmol/L Calcium (8.4-10.2) mg/dL Phosphorus (2.5-4.5) mg/dL Magnesium (1.6-2.3) mg/dL Total Bilirubin (0.2-1.3) mg/dL AST (14-36) U/L ALT (9-52) U/L Alkaline Phosphatase (38-126) U/L Total Creatine Kinase (30-135) U/L CK-MB (CK-2) (0.0-2.4) ng/mL CK-MB (CK-2) Rel Index Troponin I (0.000-0.034) ng/mL NT-Pro-B Natriuret Pep pg/mL Total Protein (6.3-8.2) g/dL Albumin (3.5-5.0) g/dL Urine Color Dark Brown Urine Appearance Cloudy H (Clear) Urine pH 5.0 (5.0-8.0) Ur Specific [place] 1.018 (1.001-1.035) Urine Protein 1+ H (Negative) Urine Glucose (UA) Negative (Negative) Urine Ketones Negative (Negative) Urine Blood Negative (Negative) Urine Nitrite Negative (Negative) Urine Bilirubin 1+ H (Negative) Urine Urobilinogen 4.0 (<2.0) mg/dL Ur Leukocyte Esterase Negative (Negative) Urine RBC 1 (0-5) /hpf Urine WBC 3 (0-5) /hpf Urine Bacteria Rare H (None) /hpf Hyaline Casts 4 H (0-2) /lpf Urine Yeast (Budding) Few H (None) /hpf Urine Opiates Screen Not Detected (NotDetected) Ur Oxycodone Screen Not Detected (NotDetected) Urine Methadone Screen Not Detected (NotDetected) Ur Propoxyphene Screen Not Detected (NotDetected) Ur Barbiturates Screen Not Detected (NotDetected) U Tricyclic Antidepress Detected H (NotDetected) Ur Phencyclidine Scrn Not Detected (NotDetected) Ur Amphetamines Screen Not Detected (NotDetected) U Methamphetamines Scrn Not Detected (NotDetected) U Benzodiazepines Scrn Detected H (NotDetected) Urine Cocaine Screen Not Detected (NotDetected) U Marijuana (THC) Screen Not Detected (NotDetected) Disposition Clinical Impression: Hypotension, Rash, Dyspnea, Hypoxia, Slurred speech, Anaphylactic reaction, Cellulitis, Acute kidney injury, Dehydration, Elevated d-dimer Disposition: ADMITTED IP TO THIS [facility] Condition: Fair Time of Disposition: 21:54 Decision Date: 12/04/16 Decision Time: 21:54
[2016-12-04 19:49] LABS: Glucose,Whole Blood 137 mg/dL (75-99)
[2016-12-04] MEDS ORDERED: EPINEPHrine 1 MG/ML 1 ML AMP IM STA (20:05)
[2016-12-04] MEDS ORDERED: IPRATROPIUM-ALBUTEROL 3 ML NEB INHALATION STA (20:05)
[2016-12-04 20:10] LABS: CH 31.7; CHCM 33.7; HCT 34.7 % (34.0-46.0); HDW 2.44; HGB 11.9 gm/dL (11.4-16.0); Immature Gran Flag Marked; MCH 32.5 pg (25.0-35.0); MCHC 34.3 g/dL (31.0-37.0); MCV 94.5 fL (80.0-100.0); RBC 3.67 m/uL (3.80-5.40); RDW 12.3 % (11.5-15.5); WBC 4.5 k/uL (3.8-10.6); WBC (Perox) 4.22
[2016-12-04 20:14] LABS: Calcium 8.4 mg/dL (8.4-10.2); Magnesium 1.8 mg/dL (1.6-2.3); Phosphorous 4.8 mg/dL (2.5-4.5); Potassium 4.3 mmol/L (3.5-5.1); Total Bilirubin 1.3 mg/dL (0.2-1.3); Total Protein 5.3 g/dL (6.3-8.2)
[2016-12-04 20:18] LABS: Partial Thromboplastin Time 30.1 sec (22.0-30.0); Prothrombin Time 10.6 sec (9.0-12.0)
[2016-12-04 20:25] LABS: Creatine Kinase 567 U/L (30-135)
[2016-12-04 20:37] LABS: Appearance,Urine Cloudy (Clear); Bacteria,Urine Rare /hpf; Bilirubin,Urine 1+ (Negative); Glucose,Urine (UA) Negative (Negative); Ketones,Urine Negative (Negative); Leukocyte Esterase,Urine Negative (Negative); Nitrite,Urine Negative (Negative); Particle Count 37964; Protein,Urine 1+ (Negative); RBC,Urine 1 /hpf (0-5); Specific Gravity,Urine 1.018 (1.001-1.035); UA Billing (MACRO vs. MICRO) MICRO; WBC,Urine 3 /hpf (0-5)
[2016-12-04 20:38] LABS: Troponin I <0.012 ng/mL (0.000-0.034)
[2016-12-04 20:43] LABS: Creatine Kinase MB 5.4 ng/mL (0.0-2.4)
[2016-12-04 20:46] LABS: Add Differential Manual Differential
[2016-12-04 20:50] LABS: Nucleated Red Blood Cells 0 /100 WBC (0-0); Polychromasia Present; Total Cells Counted 100
--- NOTE | 2016-12-04 21:19 | XR ---
EXAMINATION TYPE: XR chest 1V portable DATE OF EXAM: 12/04/2016 COMPARISON: 07/26/2016 HISTORY: Dyspnea TECHNIQUE: Single frontal view of the chest is obtained. FINDINGS: There is no focal air space opacity, pleural effusion, or pneumothorax seen. The cardiac silhouette size is within normal limits. The osseous structures are intact. IMPRESSION: No acute process.
--- NOTE | 2016-12-04 21:25 | CT ---
EXAMINATION TYPE: CT brain wo con DATE OF EXAM: 12/04/2016 COMPARISON: NONE HISTORY: Patient poor historian. Patient displays weakness. CT DLP: 758.1 mGycm. Automated exposure control for dose reduction was used. FINDINGS: There is no fracture or hemorrhage. No mass or mass effect. No definite new attenuation def ect. The paranasal sinuses are clear, as are the middle ear cavities and the mastoid sinus air cells. IMPRESSION: NO ACUTE PROCESS.
[2016-12-04] MEDS ORDERED: VANCOMYCIN 1,500 MG in SODIUM CHLORIDE 0.9% 250 ML IVPB STA (21:43)
[2016-12-04] MEDS ORDERED: AMPICILLIN-SULBACTAM 3 GM in SODIUM CHLORIDE 0.9% 100 ML IVPB STA (21:43)
[2016-12-04] MEDS ORDERED: IV VANCOMYCIN PER PHARMACY 1 EACH MISC MISCELLANE PRN (21:43)
[2016-12-04] MEDS ORDERED: HEPARIN SODIUM,PORCINE 10,000 UNIT/ML 1 ML VIAL IV ONE (21:44)
[2016-12-04] MEDS ORDERED: HEPARIN SODIUM,PORCINE 5,000 UNIT/ML 1 ML VIAL IV PRN (21:44)
[2016-12-04] MEDS: HEPARIN SODIUM,PORCINE/D5W PMX 25,000 UNIT in DEXTROSE/WATER 1 500ML.BAG IV SCH (22:12)
[2016-12-04] MEDS ORDERED: NALOXONE 0.4 MG/ML 1 ML VIAL IV PRN (22:32)
[2016-12-04] MEDS ORDERED: ONDANSETRON 4 MG/2 ML VIAL IVP PRN (22:32)
[2016-12-04] MEDS: SODIUM CHLORIDE 0.9% 1,000 ML IV SCH (23:12)
[2016-12-05] MEDS: diphenhydrAMINE 50 MG/ML 1 ML VIAL IVP SCH ×2 (00:10→06:01)
[2016-12-05 00:35] LABS: Creatine Kinase 657 U/L (30-135)
[2016-12-05 00:48] LABS: Troponin I <0.012 ng/mL (0.000-0.034)
[2016-12-05 01:01] LABS: Creatine Kinase MB 7.5 ng/mL (0.0-2.4)
[2016-12-05] MEDS: SODIUM CHLORIDE 0.9% 1,000 ML IV SCH ×2 (03:48→08:46)
[2016-12-05 04:36] LABS: CH 31.7; CHCM 32.6; HCT 32.9 % (34.0-46.0); HDW 2.42; Immature Gran Flag Marked; MCH 32.5 pg (25.0-35.0); MCHC 33.3 g/dL (31.0-37.0); MCV 97.4 fL (80.0-100.0); Mean Platelet Volume 8.4; RBC 3.38 m/uL (3.80-5.40); RDW 12.4 % (11.5-15.5); WBC 4.5 k/uL (3.8-10.6); WBC (Perox) 5.04
[2016-12-05 05:05] LABS: Add Differential Manual Differential
[2016-12-05 05:09] LABS: Nucleated Red Blood Cells 0 /100 WBC (0-0); Total Cells Counted 100
[2016-12-05 05:10] LABS: Manual Review Performed
[2016-12-05 05:59] LABS: Calcium 7.2 mg/dL (8.4-10.2); Magnesium 1.8 mg/dL (1.6-2.3); Phosphorous 4.9 mg/dL (2.5-4.5); Potassium 3.7 mmol/L (3.5-5.1)
[2016-12-05] MEDS: methylPREDNISolone SOD SUCCI 40 MG/ML 1 ML VIAL IV SCH ×2 (06:01→11:17)
[2016-12-05] MEDS: PANTOPRAZOLE 40 MG TABLET PO SCH (06:02)
[2016-12-05 07:58] LABS: Creatine Kinase 504 U/L (30-135)
[2016-12-05 08:10] LABS: Troponin I <0.012 ng/mL (0.000-0.034)
[2016-12-05 08:15] LABS: Creatine Kinase MB 7.8 ng/mL (0.0-2.4)
[2016-12-05] MEDS: SENNOSIDES 8.6 MG TAB PO SCH ×2 (08:38→21:21)
[2016-12-05] MEDS: ASPIRIN 81 MG CHEW PO SCH (08:38)
[2016-12-05] MEDS: GABAPENTIN 300 MG CAP PO SCH ×2 (08:38→20:54)
[2016-12-05] MEDS: CITALOPRAM HYDROBROMIDE 20 MG TAB PO SCH (08:38)
[2016-12-05] MEDS: LORATADINE 10 MG TAB PO SCH (08:39)
[2016-12-05] MEDS ORDERED: FAMOTIDINE 20 MG/2 ML VIAL IV SCH (09:00)
[2016-12-05] MEDS ORDERED: VANCOMYCIN 1,500 MG in SODIUM CHLORIDE 0.9% 250 ML IVPB ONE (09:00)
[2016-12-05] MEDS ORDERED: LORazepam 1 MG TAB PO SCH (09:00)
[2016-12-05] MEDS ORDERED: AMPICILLIN-SULBACTAM 3 GM in SODIUM CHLORIDE 0.9% 100 ML IVPB SCH (09:00)
[2016-12-05 10:28] LABS: Glucose,Whole Blood 162 mg/dL (75-99)
[2016-12-05] MEDS ORDERED: FLUMAZENIL 0.1 MG/ML 5 ML VIAL IVP ONE (11:30)
[2016-12-05] MEDS ORDERED: diphenhydrAMINE 50 MG/ML 1 ML VIAL IVP PRN (11:45)
[2016-12-05] MEDS ORDERED: FAMOTIDINE 20 MG TAB PO SCH (11:45)
[2016-12-05] MEDS: CHOLECALCIFEROL 1,000 UNIT TAB PO SCH (11:50)
[2016-12-05] MEDS: VIT A,C & E-LUTEIN-MINERALS 1 EACH TAB PO SCH (11:50)
[2016-12-05 11:52] LABS: ABG Base Excess -12.9 mmol/L; ABG HCO3 15 mmol/L (21-25); ABG Oxygen Saturation 98.7 % (94-97); ABG PCO2 45 mmHg (35-45); ABG PO2 191 mmHg (83-108)
[2016-12-05 11:53] LABS: ABG PH 7.16 (7.35-7.45)
[2016-12-05] MEDS: ALBUTEROL NEBULIZED 2.5 MG/3 ML INHALATION PRN ×2 (11:53→19:32)
[2016-12-05] MEDS: HEPARIN SODIUM,PORCINE/D5W PMX 25,000 UNIT in DEXTROSE/WATER 1 500ML.BAG IV SCH (11:55)
[2016-12-05] MEDS: methylPREDNISolone SOD SUCCI 125 MG/2 ML VIAL IV SCH ×2 (12:10→18:11)
[2016-12-05 12:16] LABS: Calcium 7.1 mg/dL (8.4-10.2); Magnesium 1.7 mg/dL (1.6-2.3); Potassium 4.1 mmol/L (3.5-5.1)
[2016-12-05] MEDS ORDERED: Magnesium Replacement Protocol 1 EACH MISC MISCELLANE PRN (12:37)
[2016-12-05] MEDS: MAGNESIUM SULFATE-D5W PMX 1 GM in DEXTROSE/WATER 1 100ML.BAG IVPB SCH ×2 (12:49→14:10)
[2016-12-05] MEDS ORDERED: DEXTROSE 5% IN WATER 1,000 ML with SODIUM BICARB (1 MEQ/ML) 150 ML IV ONE (13:00)
[2016-12-05 14:18] LABS: Glucose,Whole Blood 229 mg/dL (75-99)
[2016-12-05 14:30] LABS: Hemoglobin A1C 6.1 % (4.2-6.1)
[2016-12-05 15:36] LABS: Glucose,Whole Blood 201 mg/dL (75-99)
[2016-12-05] MEDS ORDERED: QUETIAPINE FUMARATE 400 MG PO SCH (16:00)
--- NOTE | 2016-12-05 17:21 | CONS ---
Diana Corey is a 61 year old female who presented to [facility] with generalized weakness. This had been associated with some shortness of breath for approximately three days. She developed moderately itchy rash 4 p.m. on the day of admission. This was diffuse in nature. She received breathing treatments as well as Epi pen and Benadryl by EMS. She subsequently was admitted to the hospital. She has a history of being mentally challenged and lives in a [facility]. She was given a dose of Ativan. Subsequently, she was found to be somnolent. Her oxygen saturation had about 49%. She subsequently was transferred emergently to the ICU. She was given Flomazinale and started to wake up. Past medical history is positive for asthma, coronary artery disease, CVA, TIA, gastroesophageal reflux disease, hyperlipidemia, hypertension, macular degeneration, cholecystectomy, back surgery, cardiac cath, tonsillectomy, hysterectomy, eye surgery, schizoaffective disorder. SOCIAL: The patient is a never smoker. Does not drink alcohol excessively. Family history is positive for [place] in her mother. Throat cancer in her father. Medications prior to admission were I-caps soft gel, Zocor, Senna, Seroquel XR, Prilosec, Nitrostat, Claritin, Ativan, Motrin, Neurontin, Vitamin B12, Citalopram, Vitamin D3, TUMS, Tenormin and low dose Ecotrin. Review of systems positive for obesity. On physical examination, blood pressure was 106/62. Respiratory rate is 16. Pulse rate is 99. O2 sat is 98%. HEENT reveals pupils that are equal. She has redundant tissue in the posterior pharynx. Chest revealed decreased breath sounds. Prolonged expiration. No clear wheeze. Cardiovascular system revealed an S1, S2. Abdomen is soft. There is trace pedal edema. Sodium is 131. Potassium 4.1. Chloride 108. Bicarb 13. BUN 54. Creatinine 2.5. White count 4.5. Hemoglobin 11.9. Tricyclic antidepressants were positive. Benzodiazepines were positive in the urine. IMPRESSION: 1. Acute allergic reaction, possible early anaphylaxis. 2. Acute respiratory failure. 3. Asthma with exacerbation. 4. Diabetes mellitus. 5. Possible obstructive sleep apnea. 6. Schizoaffective disorder. At this point in time, keep her on IV steroids. Aerosolized steroids. Benadryl and Pepcid. Continue on antibiotics. Avoid respiratory center suppressive drugs. Watch her closely in the ICU. She may require BIPAP versus intubation. Depending on how she does, we shall make further changes to her care. KRYSTYNA
--- NOTE | 2016-12-05 17:31 | P.CONS ---
History of Present Illness - Reason for Consult Consult date: 12/05/16 - Chief Complaint Generalized weakness - History of Present Illness 61-year-old female is underlying history of schizophrenia and is cared for in a assisted environment has been ill for approximately 3 days. It is noted by the current available evidence. She does have a caregiver that help with the information admission. She is having difficulties with her left axillary area with some drainage. Then it was noted that she suffered what was thought to be a bee sting on to the left arm area. Developed extensive rash and hives and some shortness of breath. She was treated with Benadryl as well as epinephrine and Solu-Medrol. She is brought to the intensive care unit. She 'sbeen hypotensive and was having difficulty with her speech. Speech however is at its baseline abnormal. She recovered from the hives. Continues to have extensive cellulitis of the left axillary area for which the infectious diseases consultation was requested The patient does respond to simple questions. Review of Systems ROS unobtainable: due to mental status Past Medical History Past Medical History: Asthma, Coronary Artery Disease (CAD), CVA/TIA, Eye Disorder, GERD/Reflux, Hyperlipidemia, Hypertension Additional Past Medical History / Comment(s): Macular degeneration,bronchial asthma,Atmra-Caregiver at [facility] pt signs own consent. History of Any Multi-Drug Resistant Organisms: None Reported Past Surgical History: Back Surgery, Cholecystectomy, Ear Surgery, Heart Catheterization, Hysterectomy, Tonsillectomy Additional Past Surgical History / Comment(s): eye surgery, cardiac cath on 2016 with moderate stenosis of LAD noted - no stenting at that time recommend medical management and return for angioplasty if sx persist Past Anesthesia/Blood Transfusion Reactions: No Reported Reaction Past Psychological History: Anxiety, Schizoaffective Disorder Additional Psychological History / Comment(s): Resident of a [facility] Smoking Status: Never smoker - Past Family History Mother Family Medical History: Myocardial Infarction (AR) Father Family Medical History: Cancer Additional Family Medical History / Comment(s): throat CA Brother(s) Family Medical History: Cancer Additional Family Medical History / Comment(s): liver Medications and Allergies Home Medications and Allergies Comment(s): Current Medications Acetaminophen (Tylenol Tab) 650 mg PO Q6HR PRN PRN Reason: Mild Pain or Fever > 100.5 Albuterol Sulfate (Ventolin Nebulized) 2.5 mg INHALATION RT-QID PRN PRN Reason: Shortness Of Breath Or Wheezing Last Admin: 12/05/16 11:53 Dose: 2.5 mg Aspirin (Aspirin) 81 mg PO DAILY [facility] Last Admin: 12/05/16 08:38 Dose: 81 mg Atorvastatin Calcium (Lipitor) 10 mg PO HS [facility] Budesonide (Pulmicort) 0.5 mg INHALATION RT-BID [facility] Calcium Carbonate/Glycine (Tums) 500 mg PO TID PRN PRN Reason: Indigestion Cholecalciferol (Vitamin D3) 2,000 unit PO 1200 [facility] Last Admin: 12/05/16 11:50 Dose: Not Given Citalopram Hydrobromide (Celexa) 40 mg PO DAILY [facility] Last Admin: 12/05/16 08:38 Dose: 40 mg Cyanocobalamin (Vitamin B-12) 1,000 mcg PO Q48H [facility] Diphenhydramine HCl (Benadryl) 12.5 mg IVP Q6H PRN PRN Reason: Rash Famotidine (Pepcid) 20 mg IV Q12HR [facility] Gabapentin (Neurontin) 300 mg PO BID [facility] Last Admin: 12/05/16 08:38 Dose: 300 mg Heparin Sodium (Porcine) (Heparin) 0 unit IV PER PROTOCOL PRN; Protocol PRN Reason: Low PTT Heparin Sodium/Dextrose 25,000 (unit/ IV Solution) 500 mls @ 36.25 mls/hr IV .[id number] [facility]; 18 UNITS/KG/HR PRN Reason: Protocol Last Admin: 12/05/16 11:55 Dose: Not Given Ampicillin Sodium/Sulbactam (Sodium 3 gm/ Sodium Chloride) 100 mls @ 100 mls/ hr IVPB Q12HR [facility] Last Admin: 12/05/16 08:45 Dose: 100 mls/hr Sodium Bicarbonate 150 ml/ (Dextrose/Water) 1,150 mls @ 50 mls/hr IV .Q23H ONE Stop: 12/06/16 11:59 Last Admin: 12/05/16 12:49 Dose: 50 mls/hr Insulin Human Lispro (Humalog) 0 unit SQ Q6HR [facility] PRN Reason: Protocol Loratadine (Claritin) 10 mg PO DAILY [facility] Last Admin: 12/05/16 08:39 Dose: 10 mg Methylprednisolone Sodium Succinate (Solu-Medrol) 60 mg IV Q6HR [facility] Last Admin: 12/05/16 12:10 Dose: Not Given Miscellaneous Information (Pharmacy To Dose Iv Vancomycin) 1 each MISCELLANE DIRECTED PRN PRN Reason: Per Protocol Miscellaneous Information (Magnesium Per Protocol) 1 each MISCELLANE DAILY PRN ; Protocol PRN Reason: Per Protocol Multivitamins/Minerals (Ivite) 1 each PO 1200 [facility] Last Admin: 12/05/16 11:50 Dose: Not Given Naloxone HCl (Narcan) 0.2 mg IV Q2M PRN PRN Reason: Opioid Reversal Ondansetron HCl (Zofran) 4 mg IVP Q4H PRN PRN Reason: Nausea And Vomiting Pantoprazole Sodium (Protonix) 40 mg PO [facility] Last Admin: 12/05/16 06:02 Dose: 40 mg Quetiapine Fumarate (Seroquel) 400 mg PO HS [facility] Quetiapine Fumarate (Seroquel Xr) 300 mg PO DAILY@1600 [facility] Last Admin: 12/05/16 15:13 Dose: Not Given Quetiapine Fumarate (Seroquel Xr) 100 mg PO DAILY@1600 [facility] Last Admin: 12/05/16 15:13 Dose: Not Given Senna (Senokot) 8.6 mg PO BID [facility] Last Admin: 12/05/16 08:38 Dose: 8.6 mg Home Medications Medication Instructions Recorded Confirmed Type Cholecalciferol [Vitamin D3] 2,000 unit PO DAILY 08/06/14 12/04/16 History Citalopram Hydrobromide 40 mg PO DAILY 08/06/14 12/04/16 History [Citalopram HBr] Cyanocobalamin [Vitamin B-12] 1,000 mcg PO Q48H 08/06/14 12/04/16 History LORazepam [Ativan] 1 mg PO BID 08/06/14 12/04/16 History Omeprazole [PriLOSEC] 40 mg PO [facility] 08/06/14 12/04/16 History Atenolol [Tenormin] 25 mg PO DAILY 07/21/16 12/04/16 History Gabapentin [Neurontin] 300 mg PO BID 07/21/16 12/04/16 History Loratadine [Claritin] 10 mg PO DAILY 07/21/16 12/04/16 History Sennosides [Senna] 8.6 mg PO BID 07/21/16 12/04/16 History Nitroglycerin Sl Tabs [Nitrostat] 0.4 mg SUBLINGUAL Q5M PRN 07/22/16 12/04/16 History Vit A/Vit C/Vit E/Zinc/Copper 1 cap PO DAILY 07/22/16 12/04/16 History [ICAPS SOFTGEL] Aspirin EC [Ecotrin Low Dose] 81 mg PO DAILY 07/27/16 12/04/16 History Calcium Carbonate [Tums] 500 mg PO TID PRN 07/27/16 12/04/16 History QUEtiapine FUMARATE [Seroquel Xr] 400 mg PO DAILY@1600 07/27/16 12/04/16 History QUEtiapine [SEROquel] 400 mg PO HS 07/27/16 12/04/16 History Simvastatin [Zocor] 20 mg PO HS 07/27/16 12/04/16 History Ibuprofen [Motrin] 600 mg PO Q6H PRN 12/04/16 12/04/16 History Allergies Allergy/AdvReac Type Severity Reaction Status Date / Time No Known Allergies Allergy Verified 12/04/16 20:00 Physical Exam Vitals: Vital Signs Temp Pulse Pulse Resp BP BP Pulse Ox 12/05/16 16:00 97.2 F L 92 14 83/52 97 12/05/16 15:50 91 14 85/54 98 12/05/16 15:40 92 14 85/54 98 12/05/16 15:33 14 12/05/16 15:30 96 14 85/54 97 12/05/16 15:20 92 14 85/54 98 12/05/16 15:10 90 14 85/54 98 12/05/16 15:00 89 14 85/54 98 12/05/16 14:50 91 14 93/56 98 12/05/16 14:40 96 14 93/56 98 12/05/16 14:30 95 14 93/56 98 12/05/16 14:20 93 14 93/56 98 12/05/16 14:10 92 16 93/56 98 12/05/16 14:00 94 16 93/56 98 12/05/16 13:50 97 16 106/62 98 12/05/16 13:40 99 16 106/62 98 12/05/16 13:30 101 H 16 106/62 98 12/05/16 13:20 106 H 16 106/62 98 12/05/16 13:10 104 H 16 106/62 98 12/05/16 13:00 109 H 16 106/62 98 12/05/16 12:50 109 H 16 108/56 98 12/05/16 12:49 98.4 F 109 H 16 108/56 98 12/05/16 12:06 118 H 12/05/16 12:00 18 12/05/16 11:53 103 H 12/05/16 08:00 98.8 F 86 18 96/64 98 12/05/16 03:48 88 18 12/05/16 03:43 97.1 F L 88 18 97/56 96 12/05/16 00:00 98 F 85 18 86/64 98 12/04/16 23:13 97.1 F L 12/04/16 22:59 92 16 82/49 96 12/04/16 21:41 89 18 85/51 98 12/04/16 21:21 91 18 90/60 96 12/04/16 20:36 95 103/62 100 12/04/16 20:26 100 12/04/16 20:20 91 89/62 98 12/04/16 20:03 89 78/52 100 12/04/16 19:51 91 98/56 95 12/04/16 19:29 76/52 12/04/16 19:17 97.2 F L 89 17 82/46 93 L Intake and Output 12/05/16 12/05/16 12/05/16 06:59 14:59 22:59 Intake Total 270.667 200 100 Output Total 890 135 Balance 270.667 -690 -35 Intake: IV 200 100 Dextrose 5% in Water 1, 100 100 000 ml @ 50 mls/hr IV . Q23H ONE with Sodium Bicarb (1 Meq/ml) 150 ml Rx#:[id number] Sodium Chloride 0.9% 1, 100 000 ml @ 100 mls/hr IV . Q10H STA Rx#:[id number] Intake, IV Titration 270.667 Amount Heparin Sodium,Porcine/ 270.667 D5w Pmx 25,000 unit In Dextrose/Water 1 500ml. bag @ 18 UNITS/KG/HR 36. 25 mls/hr IV .[id number] [facility] Rx#:[id number] Oral 0 Output: Urine 890 135 Other: Voiding Method Indwelling Catheter Indwelling Catheter # Voids 0 Weight 101.5 kg 61-year-old woman who appears older than her stated age. Occasionally open eyes to the exam. Occasional responses are noted. HEENT: Anicteric conjunctiva are pink and moist nasal mucosa grossly intact without significant lesions, there is no thrush. Oral mucosa is dry Neck: The neck is supple without significant lymphadenopathy or thyromegaly. Lungs: Good bilateral air entry without significant crackles or wheezing. There is no significant bronchial sounds. There is no egophony or dullness. Heart: Regular rate and rhythm with an audible S1-S2, no S3 no S4. There is no significant murmur click or rub, PMI was nondisplaced. Abdomen: Positive bowel sounds soft and nontender without palpable masses or organomegaly. There was no guarding or rebound. Extremities: The upper extremities have excellent pulses they are symmetric, no significant petechiae or telangiectasia. No splinter hemorrhages were noted. The left axillary area is evidence of the distinct pattern of erythema as well as a pustule at the midpoint of the axilla. Print material has been sent to the laboratory for culture there is no severe arm swelling. The lower extremities are free from significant lesions the peripheral pulses were 2+ and symmetric. Neuro: Arousable did have some interaction to some simple questions. In general withdrawn. Results CBC & Chem 7: 12/05/16 04:12 12/05/16 11:17 Labs: Abnormal Lab Results - Last 24 Hours (Table) 12/04/16 12/04/16 12/04/16 Range/Units 19:36 19:36 19:36 RBC 3.67 L (3.80-5.40) m/uL Hgb (11.4-16.0) gm/dL Hct (34.0-46.0) % Lymphocytes # (Manual) 0.5 L (1.0-4.8) k/uL Monocytes # (Manual) 1.1 H (0-1.0) k/uL APTT (22.0-30.0) sec D-Dimer (<0.60) mg/L FEU ABG pH (7.35-7.45) ABG pO2 (83-108) mmHg ABG HCO3 (21-25) mmol/L ABG O2 Saturation (94-97) % Sodium 127 L (137-145) mmol/L Chloride 96 L (98-107) mmol/L Carbon Dioxide 18 L (22-30) mmol/L BUN 57 H (7-17) mg/dL Creatinine 3.40 H (0.52-1.04) mg/dL Glucose 130 H (74-99) mg/dL POC Glucose (mg/dL) (75-99) mg/dL Plasma Lactic Acid Britton (0.7-2.0) mmol/L Calcium (8.4-10.2) mg/dL Phosphorus 4.8 H (2.5-4.5) mg/dL AST 53 H (14-36) U/L Total Creatine Kinase 567 H (30-135) U/L CK-MB (CK-2) 5.4 H* (0.0-2.4) ng/mL Total Protein 5.3 L (6.3-8.2) g/dL Albumin 2.6 L (3.5-5.0) g/dL Urine Appearance (Clear) Urine Protein (Negative) Urine Bilirubin (Negative) Urine Bacteria (None) /hpf Hyaline Casts (0-2) /lpf Urine Yeast (Budding) (None) /hpf U Tricyclic Antidepress (NotDetected) U Benzodiazepines Scrn (NotDetected) 12/04/16 12/04/16 12/04/16 Range/Units 19:36 19:36 19:44 RBC (3.80-5.40) m/uL Hgb (11.4-16.0) gm/dL Hct (34.0-46.0) % Lymphocytes # (Manual) (1.0-4.8) k/uL Monocytes # (Manual) (0-1.0) k/uL APTT 30.1 H (22.0-30.0) sec D-Dimer 5.28 H (<0.60) mg/L FEU ABG pH (7.35-7.45) ABG pO2 (83-108) mmHg ABG HCO3 (21-25) mmol/L ABG O2 Saturation (94-97) % Sodium (137-145) mmol/L Chloride (98-107) mmol/L Carbon Dioxide (22-30) mmol/L BUN (7-17) mg/dL Creatinine (0.52-1.04) mg/dL Glucose (74-99) mg/dL POC Glucose (mg/dL) 137 H (75-99) mg/dL Plasma Lactic Acid Britton 2.5 H* (0.7-2.0) mmol/L Calcium (8.4-10.2) mg/dL Phosphorus (2.5-4.5) mg/dL AST (14-36) U/L Total Creatine Kinase (30-135) U/L CK-MB (CK-2) (0.0-2.4) ng/mL Total Protein (6.3-8.2) g/dL Albumin (3.5-5.0) g/dL Urine Appearance (Clear) Urine Protein (Negative) Urine Bilirubin (Negative) Urine Bacteria (None) /hpf Hyaline Casts (0-2) /lpf Urine Yeast (Budding) (None) /hpf U Tricyclic Antidepress (NotDetected) U Benzodiazepines Scrn (NotDetected) 12/04/16 12/04/16 12/05/16 Range/Units 20:18 20:18 00:02 RBC (3.80-5.40) m/uL Hgb (11.4-16.0) gm/dL Hct (34.0-46.0) % Lymphocytes # (Manual) (1.0-4.8) k/uL Monocytes # (Manual) (0-1.0) k/uL APTT (22.0-30.0) sec D-Dimer (<0.60) mg/L FEU ABG pH (7.35-7.45) ABG pO2 (83-108) mmHg ABG HCO3 (21-25) mmol/L ABG O2 Saturation (94-97) % Sodium (137-145) mmol/L Chloride (98-107) mmol/L Carbon Dioxide (22-30) mmol/L BUN (7-17) mg/dL Creatinine (0.52-1.04) mg/dL Glucose (74-99) mg/dL POC Glucose (mg/dL) (75-99) mg/dL Plasma Lactic Acid Britton (0.7-2.0) mmol/L Calcium (8.4-10.2) mg/dL Phosphorus (2.5-4.5) mg/dL AST (14-36) U/L Total Creatine Kinase 657 H (30-135) U/L CK-MB (CK-2) 7.5 H* (0.0-2.4) ng/mL Total Protein (6.3-8.2) g/dL Albumin (3.5-5.0) g/dL Urine Appearance Cloudy H (Clear) Urine Protein 1+ H (Negative) Urine Bilirubin 1+ H (Negative) Urine Bacteria Rare H (None) /hpf Hyaline Casts 4 H (0-2) /lpf Urine Yeast (Budding) Few H (None) /hpf U Tricyclic Antidepress Detected H (NotDetected) U Benzodiazepines Scrn Detected H (NotDetected) 12/05/16 12/05/16 12/05/16 Range/Units 04:12 04:12 04:12 RBC 3.38 L (3.80-5.40) m/uL Hgb 11.0 L (11.4-16.0) gm/dL Hct 32.9 L (34.0-46.0) % Lymphocytes # (Manual) 0.2 L (1.0-4.8) k/uL Monocytes # (Manual) (0-1.0) k/uL APTT 146.6 H* (22.0-30.0) sec D-Dimer (<0.60) mg/L FEU ABG pH (7.35-7.45) ABG pO2 (83-108) mmHg ABG HCO3 (21-25) mmol/L ABG O2 Saturation (94-97) % Sodium 130 L (137-145) mmol/L Chloride (98-107) mmol/L Carbon Dioxide 16 L (22-30) mmol/L BUN 55 H (7-17) mg/dL Creatinine 2.70 H (0.52-1.04) mg/dL Glucose 173 H (74-99) mg/dL POC Glucose (mg/dL) (75-99) mg/dL Plasma Lactic Acid Britton (0.7-2.0) mmol/L Calcium 7.2 L (8.4-10.2) mg/dL Phosphorus 4.9 H (2.5-4.5) mg/dL AST (14-36) U/L Total Creatine Kinase (30-135) U/L CK-MB (CK-2) (0.0-2.4) ng/mL Total Protein (6.3-8.2) g/dL Albumin (3.5-5.0) g/dL Urine Appearance (Clear) Urine Protein (Negative) Urine Bilirubin (Negative) Urine Bacteria (None) /hpf Hyaline Casts (0-2) /lpf Urine Yeast (Budding) (None) /hpf U Tricyclic Antidepress (NotDetected) U Benzodiazepines Scrn (NotDetected) 12/05/16 12/05/16 12/05/16 Range/Units 07:24 10:17 11:17 RBC (3.80-5.40) m/uL Hgb (11.4-16.0) gm/dL Hct (34.0-46.0) % Lymphocytes # (Manual) (1.0-4.8) k/uL Monocytes # (Manual) (0-1.0) k/uL APTT 47.1 H (22.0-30.0) sec D-Dimer (<0.60) mg/L FEU ABG pH (7.35-7.45) ABG pO2 (83-108) mmHg ABG HCO3 (21-25) mmol/L ABG O2 Saturation (94-97) % Sodium (137-145) mmol/L Chloride (98-107) mmol/L Carbon Dioxide (22-30) mmol/L BUN (7-17) mg/dL Creatinine (0.52-1.04) mg/dL Glucose (74-99) mg/dL POC Glucose (mg/dL) 162 H (75-99) mg/dL Plasma Lactic Acid Britton (0.7-2.0) mmol/L Calcium (8.4-10.2) mg/dL Phosphorus (2.5-4.5) mg/dL AST (14-36) U/L Total Creatine Kinase 504 H (30-135) U/L CK-MB (CK-2) 7.8 H* (0.0-2.4) ng/mL Total Protein (6.3-8.2) g/dL Albumin (3.5-5.0) g/dL Urine Appearance (Clear) Urine Protein (Negative) Urine Bilirubin (Negative) Urine Bacteria (None) /hpf Hyaline Casts (0-2) /lpf Urine Yeast (Budding) (None) /hpf U Tricyclic Antidepress (NotDetected) U Benzodiazepines Scrn (NotDetected) 12/05/16 12/05/16 12/05/16 Range/Units 11:17 11:45 14:15 RBC (3.80-5.40) m/uL Hgb (11.4-16.0) gm/dL Hct (34.0-46.0) % Lymphocytes # (Manual) (1.0-4.8) k/uL Monocytes # (Manual) (0-1.0) k/uL APTT (22.0-30.0) sec D-Dimer (<0.60) mg/L FEU ABG pH 7.16 L* (7.35-7.45) ABG pO2 191 H (83-108) mmHg ABG HCO3 15 L (21-25) mmol/L ABG O2 Saturation 98.7 H (94-97) % Sodium 131 L (137-145) mmol/L Chloride 108 H (98-107) mmol/L Carbon Dioxide 13 L (22-30) mmol/L BUN 54 H (7-17) mg/dL Creatinine 2.50 H (0.52-1.04) mg/dL Glucose 163 H (74-99) mg/dL POC Glucose (mg/dL) 229 H (75-99) mg/dL Plasma Lactic Acid Britton (0.7-2.0) mmol/L Calcium 7.1 L (8.4-10.2) mg/dL Phosphorus (2.5-4.5) mg/dL AST (14-36) U/L Total Creatine Kinase (30-135) U/L CK-MB (CK-2) (0.0-2.4) ng/mL Total Protein (6.3-8.2) g/dL Albumin (3.5-5.0) g/dL Urine Appearance (Clear) Urine Protein (Negative) Urine Bilirubin (Negative) Urine Bacteria (None) /hpf Hyaline Casts (0-2) /lpf Urine Yeast (Budding) (None) /hpf U Tricyclic Antidepress (NotDetected) U Benzodiazepines Scrn (NotDetected) 12/05/16 Range/Units 15:35 RBC (3.80-5.40) m/uL Hgb (11.4-16.0) gm/dL Hct (34.0-46.0) % Lymphocytes # (Manual) (1.0-4.8) k/uL Monocytes # (Manual) (0-1.0) k/uL APTT (22.0-30.0) sec D-Dimer (<0.60) mg/L FEU ABG pH (7.35-7.45) ABG pO2 (83-108) mmHg ABG HCO3 (21-25) mmol/L ABG O2 Saturation (94-97) % Sodium (137-145) mmol/L Chloride (98-107) mmol/L Carbon Dioxide (22-30) mmol/L BUN (7-17) mg/dL Creatinine (0.52-1.04) mg/dL Glucose (74-99) mg/dL POC Glucose (mg/dL) 201 H (75-99) mg/dL Plasma Lactic Acid Britton (0.7-2.0) mmol/L Calcium (8.4-10.2) mg/dL Phosphorus (2.5-4.5) mg/dL AST (14-36) U/L Total Creatine Kinase (30-135) U/L CK-MB (CK-2) (0.0-2.4) ng/mL Total Protein (6.3-8.2) g/dL Albumin (3.5-5.0) g/dL Urine Appearance (Clear) Urine Protein (Negative) Urine Bilirubin (Negative) Urine Bacteria (None) /hpf Hyaline Casts (0-2) /lpf Urine Yeast (Budding) (None) /hpf U Tricyclic Antidepress (NotDetected) U Benzodiazepines Scrn (NotDetected) Microbiology - Last 24 Hours (Table) 12/04/16 21:30 Gram Stain - Preliminary Axilla - Left Wound Culture - Preliminary 12/04/16 20:18 Urine Culture - Preliminary Urine,Catheterized Laboratory Results WBC 4.5 k/uL (3.8-10.6) 12/05/16 04:12 RBC 3.38 m/uL (3.80-5.40) L 12/05/16 04:12 Hgb 11.0 gm/dL (11.4-16.0) L 12/05/16 04:12 Hct 32.9 % (34.0-46.0) L 12/05/16 04:12 MCV 97.4 fL (80.0-100.0) 12/05/16 04:12 MCH 32.5 pg (25.0-35.0) 12/05/16 04:12 MCHC 33.3 g/dL (31.0-37.0) 12/05/16 04:12 RDW 12.4 % (11.5-15.5) 12/05/16 04:12 Plt Count 172 k/uL (150-450) 12/05/16 04:12 Neutrophils % (Manual) 19.0 % 12/05/16 04:12 Band Neutrophils % 61.0 % 12/05/16 04:12 Lymphocytes % (Manual) 4.0 % 12/05/16 04:12 Monocytes % (Manual) 9.0 % 12/05/16 04:12 Eosinophils % (Manual) 2.0 % 12/04/16 19:36 Metamyelocytes % 7.0 % 12/05/16 04:12 Neutrophils # (Manual) 3.6 k/uL (1.3-7.7) 12/05/16 04:12 Lymphocytes # (Manual) 0.2 k/uL (1.0-4.8) L 12/05/16 04:12 Monocytes # (Manual) 0.4 k/uL (0-1.0) 12/05/16 04:12 Eosinophils # (Manual) 0.1 k/uL (0-0.7) 12/04/16 19:36 Nucleated RBCs 0 /100 WBC (0-0) 12/05/16 04:12 Manual Slide Review Performed 12/05/16 04:12 Polychromasia Present 12/04/16 19:36 PT 10.6 sec (9.0-12.0) 12/04/16 19:36 INR 1.0 (<1.2) 12/04/16 19:36 APTT 47.1 sec (22.0-30.0) H 12/05/16 11:17 D-Dimer 5.28 mg/L FEU (<0.60) H 12/04/16 19:36 Sample Site Left Radial 12/05/16 11:45 ABG pH 7.16 (7.35-7.45) L* 12/05/16 11:45 ABG pCO2 45 mmHg (35-45) 12/05/16 11:45 ABG pO2 191 mmHg (83-108) H 12/05/16 11:45 ABG HCO3 15 mmol/L (21-25) L 12/05/16 11:45 ABG O2 Saturation 98.7 % (94-97) H 12/05/16 11:45 ABG Base Excess -12.9 mmol/L 12/05/16 11:45 ABG Hematocrit 34 % (34.0-46.0) 12/05/16 11:45 FiO2 60 % 12/05/16 11:45 Sodium 131 mmol/L (137-145) L 12/05/16 11:17 Potassium 4.1 mmol/L (3.5-5.1) 12/05/16 11:17 Chloride 108 mmol/L (98-107) H 12/05/16 11:17 Carbon Dioxide 13 mmol/L (22-30) L 12/05/16 11:17 Anion Gap 10 mmol/L 12/05/16 11:17 BUN 54 mg/dL (7-17) H 12/05/16 11:17 Creatinine 2.50 mg/dL (0.52-1.04) H 12/05/16 11:17 Est GFR (MDRD) Af Amer 24 (>60 ml/min/1.73 sqM) 12/05/16 11:17 Est GFR (MDRD) Non-Af 20 (>60 ml/min/1.73 sqM) 12/05/16 11:17 Glucose 163 mg/dL (74-99) H 12/05/16 11:17 POC Glucose (mg/dL) 201 mg/dL (75-99) H 12/05/16 15:35 POC Glu [employer]unk [employer]er ID Megan Wilson 12/05/16 15:[address] Glu mg/dL 128 mg/dL 12/05/16 04:12 Hemoglobin A1c 6.1 % (4.2-6.1) 12/05/16 04:12 Lactic Ac Sepsis Rflx Y 12/04/16 20:23 Plasma Lactic Acid Britton 2.0 mmol/L (0.7-2.0) 12/05/16 00:02 Calcium 7.1 mg/dL (8.4-10.2) L 12/05/16 11:17 Phosphorus 4.9 mg/dL (2.5-4.5) H 12/05/16 04:12 Magnesium 1.7 mg/dL (1.6-2.3) 12/05/16 11:17 Total Bilirubin 1.3 mg/dL (0.2-1.3) 12/04/16 19:36 AST 53 U/L (14-36) H 12/04/16 19:36 ALT 37 U/L (9-52) 12/04/16 19:36 Alkaline Phosphatase 69 U/L (38-126) 12/04/16 19:36 Total Creatine Kinase 504 U/L (30-135) H 12/05/16 07:24 CK-MB (CK-2) 7.8 ng/mL (0.0-2.4) H* 12/05/16 07:24 CK-MB (CK-2) Rel Index 1.5 12/05/16 07:24 Troponin I <0.012 ng/mL (0.000-0.034) 12/05/16 07:24 NT-Pro-B Natriuret Pep 8270 pg/mL 12/04/16 19:36 Total Protein 5.3 g/dL (6.3-8.2) L 12/04/16 19:36 Albumin 2.6 g/dL (3.5-5.0) L 12/04/16 19:36 Urine Color Dark Brown 12/04/16 20:18 Urine Appearance Cloudy (Clear) H 12/04/16 20:18 Urine pH 5.0 (5.0-8.0) 12/04/16 20:18 Ur Specific [place] 1.018 (1.001-1.035) 12/04/16 20:18 Urine Protein 1+ (Negative) H 12/04/16 20:18 Urine Glucose (UA) Negative (Negative) 12/04/16 20:18 Urine Ketones Negative (Negative) 12/04/16 20:18 Urine Blood Negative (Negative) 12/04/16 20:18 Urine Nitrite Negative (Negative) 12/04/16 20:18 Urine Bilirubin 1+ (Negative) H 12/04/16 20:18 Urine Urobilinogen 4.0 mg/dL (<2.0) 12/04/16 20:18 Ur Leukocyte Esterase Negative (Negative) 12/04/16 20:18 Urine RBC 1 /hpf (0-5) 12/04/16 20:18 Urine WBC 3 /hpf (0-5) 12/04/16 20:18 Urine Bacteria Rare /hpf (None) H 12/04/16 20:18 Hyaline Casts 4 /lpf (0-2) H 12/04/16 20:18 Urine Yeast (Budding) Few /hpf (None) H 12/04/16 20:18 Urine Opiates Screen Not Detected (NotDetected) 12/04/16 20:18 Ur Oxycodone Screen Not Detected (NotDetected) 12/04/16 20:18 Urine Methadone Screen Not Detected (NotDetected) 12/04/16 20:18 Ur Propoxyphene Screen Not Detected (NotDetected) 12/04/16 20:18 Ur Barbiturates Screen Not Detected (NotDetected) 12/04/16 20:18 U Tricyclic Antidepress Detected (NotDetected) H 12/04/16 20:18 Ur Phencyclidine Scrn Not Detected (NotDetected) 12/04/16 20:18 Ur Amphetamines Screen Not Detected (NotDetected) 12/04/16 20:18 U Methamphetamines Scrn Not Detected (NotDetected) 12/04/16 20:18 U Benzodiazepines Scrn Detected (NotDetected) H 12/04/16 20:18 Urine Cocaine Screen Not Detected (NotDetected) 12/04/16 20:18 U Marijuana (THC) Screen Not Detected (NotDetected) 12/04/16 20:18 Microbiology 12/04/16 21:30 Axilla - Left Gram Stain - Preliminary 12/04/16 21:30 Axilla - Left Wound Culture - Preliminary 12/04/16 20:18 Urine,Catheterized Urine Culture - Preliminary Assessment and Plan (1) Anaphylactic reaction Status: Acute (2) Abscess of axilla, left Narrative/Plan: 61-year-old female presents from her [facility] with some increasing weakness. Admission without evidence of sepsis apparently in the base of the significant cellulitis and abscess to her left axillary area. She hasn't had the significant hives and swelling responded well to intervention with Benadryl , epinephrine and steroids. She apparently is improved from her admission. The extensive acidosis was noted and is being corrected. Antibiotic therapy was initiated with vancomycin and ampicillin sulbactam. Given her acute renal failure we'll avoid further doses of vancomycin in utilize Ceftaroline was to give coverage for MRSA as well as staph and strep which we, pathogens of the axillary area. Continue ongoing supportive care. Dry dressing for the drainage. Cultures in process. Despite her acidosis she does not have significant leukocytosis. The patient does have evidence of active infection. Continue ongoing supportive care. Nursing staff relates that her mental status as per her education professional is near her baseline. Does not appear to have significant concerns to infection of the central nervous system. Status: Acute
[2016-12-05 18:10] LABS: Glucose,Whole Blood 162 mg/dL (75-99)
[2016-12-05] MEDS: INSULIN LISPRO (humaLOG) 300 UNIT/3 ML VIAL SQ SCH (18:11)
[2016-12-05] MEDS: BUDESONIDE 0.5 MG/2 ML NEBU INHALATION SCH (19:32)
--- NOTE | 2016-12-05 19:34 | P.HPIM ---
History of Present Illness H&P Date: 12/05/16 Chief Complaint: Multiple problems This is a 61-year-old patient of visiting physicians Dr. Muro. Patient is resident [facility] a [facility]. Patient's chronic stable medical conditions include coronary artery disease with a 50% LAD lesion, GERD, hypertension, hyperlipidemia, schizoaffective disorder, anxiety, peripheral neuropathy and macular degeneration. Patient apparently for 3 days had noticed swelling and redness of the left arm not sure if something can better and presented to ER. Patient was found to be hypotensive with extensive rash and patient is given IV Solu-Medrol IV Benadryl and Pepcid and admitted to the medical floor. Patient became hypotensive and hypoxic was transferred to the intensive care unit with a consultation to critical care and infectious disease. Patient got a definite induration and redness in the left axillary area. Patient does confirm that she does use a razor in the left armpit. Patient was rather acidotic earlier was put on a bicarbonate drip patient also found to be in acute renal failure. Patient is on the high flow oxygen currently not able to give much of history that can answer simple questions. Significant past medical history Asthma, nonobstructive coronary artery disease with 50% LAD lesion, GERD, hyperlipidemia, hypertension, macular degeneration, schizoaffective disorder, anxiety, peripheral neuropathy. Review of Systems Review of systems-difficult to obtain as patient is rather lethargic on high flow oxygen not able to really give much of history Past Medical History Past Medical History: Asthma, Coronary Artery Disease (CAD), CVA/TIA, Eye Disorder, GERD/Reflux, Hyperlipidemia, Hypertension Additional Past Medical History / Comment(s): Macular degeneration,bronchial asthma,Tamra-Caregiver at [facility] states pt signs own consent. History of Any Multi-Drug Resistant Organisms: None Reported Past Surgical History: Back Surgery, Cholecystectomy, Ear Surgery, Heart Catheterization, Hysterectomy, Tonsillectomy Additional Past Surgical History / Comment(s): eye surgery, cardiac cath on 2016 with moderate stenosis of LAD noted - no stenting at that time recommend medical management and return for angioplasty if sx persist Past Anesthesia/Blood Transfusion Reactions: No Reported Reaction Past Psychological History: Anxiety, Schizoaffective Disorder Additional Psychological History / Comment(s): Resident of a jail Smoking Status: Never smoker - Past Family History Mother Family Medical History: Myocardial Infarction ([place]) Father Family Medical History: Cancer Additional Family Medical History / Comment(s): throat CA Brother(s) Family Medical History: Cancer Additional Family Medical History / Comment(s): liver Medications and Allergies Home Medications Medication Instructions Recorded Confirmed Type Cholecalciferol [Vitamin D3] 2,000 unit PO DAILY 08/06/14 12/04/16 History Citalopram Hydrobromide 40 mg PO DAILY 08/06/14 12/04/16 History [Citalopram HBr] Cyanocobalamin [Vitamin B-12] 1,000 mcg PO Q48H 08/06/14 12/04/16 History LORazepam [Ativan] 1 mg PO BID 08/06/14 12/04/16 History Omeprazole [PriLOSEC] 40 mg PO AC-BRKFST 08/06/14 12/04/16 History Atenolol [Tenormin] 25 mg PO DAILY 07/21/16 12/04/16 History Gabapentin [Neurontin] 300 mg PO BID 07/21/16 12/04/16 History Loratadine [Claritin] 10 mg PO DAILY 07/21/16 12/04/16 History Sennosides [Senna] 8.6 mg PO BID 07/21/16 12/04/16 History Nitroglycerin Sl Tabs [Nitrostat] 0.4 mg SUBLINGUAL Q5M PRN 07/22/16 12/04/16 History Vit A/Vit C/Vit E/Zinc/Copper 1 cap PO DAILY 07/22/16 12/04/16 History [ICAPS SOFTGEL] Aspirin EC [Ecotrin Low Dose] 81 mg PO DAILY 07/27/16 12/04/16 History Calcium Carbonate [Tums] 500 mg PO TID PRN 07/27/16 12/04/16 History QUEtiapine FUMARATE [Seroquel Xr] 400 mg PO DAILY@1600 07/27/16 12/04/16 History QUEtiapine [SEROquel] 400 mg PO HS 07/27/16 12/04/16 History Simvastatin [Zocor] 20 mg PO HS 07/27/16 12/04/16 History Ibuprofen [Motrin] 600 mg PO Q6H PRN 12/04/16 12/04/16 History Allergies Allergy/AdvReac Type Severity Reaction Status Date / Time No Known Allergies Allergy Verified 12/04/16 20:00 Physical Exam Vitals: VITAL SIGNS: Afebrile, heart rate about 110 respiration 22 blood pressure 106/62 , pulse of 98% on high flow oxygen GENERAL: Well built, BMI 37.2 sitting up, very short of breath with a Ventimask in place. EYES: Pupils equal. Conjunctiva normal. HEENT: External appearance of nose and ears normal, oral cavity grossly normal. NECK: JVD not raised; masses not palpable. HEART: First and second heart sounds are normal; no edema. LUNGS: Respiratory rate increased, diminished breath sounds prolonged expiration and wheezing. ABDOMEN: Soft, nontender, liver spleen not palpable, no masses palpable. LYMPHATICS: No lymph nodes palpable in the axilla and neck. PSYCH: Lethargic, able to answer simple questions and dozes off easilyl. NEUROLOGICAL: Cranial nerves grossly intact; no facial asymmetry, power and sensation grossly intact. Dermatological: 80 of induration cellulitis from the armpit and his left arm area, the diffuse rash and about is greatly improved Results CBC & Chem 7: 12/05/16 04:12 12/05/16 11:17 Labs: Investigations: White count 4.5, hemoglobin 11.9, it is 186, sodium 127, BUN 57, creatinine 3.40 , lactic acid 2.5, troponin negative Urine drenching positive for benzodiazepine and tricyclics Chest x-ray- Acute Thrombosis Risk Factor Assmnt - Choose All That Apply Each Factor Represents 1 point: Age 41-60 years, Medical pt on bed rest, Swollen legs (current) Thrombosis Risk Factor Assessment Total Risk Factor Score: 3 Thrombosis Risk Factor Assessment Level: Moderate Risk Assessment and Plan Plan: Assessment: -Acute ALLERGIC reaction could be from an insect bite exact cause unknown responded well -Acute exacerbation of intermittent asthma causing acute hypoxic respiratory failure -Coronary artery disease with nonobstructive 50% LAD lesion -GERD -Essential hypertension -Hyperlipidemia -Metabolic degeneration -Hyponatremia suspect hypoosmolar -Schizoaffective disorder, chronic -Anxiety disorder and otherwise specified -Peripheral neuropathy cause unknown -Acute metabolic encephalopathy multifactorial -Acute renal failure, nonoliguric probably ATN ATN, could be a prerenal component CODE STATUS full code Plan: Patient is put on aggressive bronchodilators, Dr. Elmore from infectious disease but the patient on iv ceftroline, also getting bicarbonate ip, and IV Solu-Medrol. Dr. Yamileth rosario from critical care is following the patient. Oxygen is being supplemented.
[2016-12-05] MEDS: ATORVASTATIN 10 MG TAB PO SCH (20:53)
[2016-12-05] MEDS: QUEtiapine 400 MG TAB PO SCH (20:54)
[2016-12-05] MEDS ORDERED: CEFTAROLINE FOSAMIL 600 MG in SODIUM CHLORIDE 0.9% 250 ML IVPB SCH (21:00)
[2016-12-05] MEDS: FAMOTIDINE 20 MG/2 ML VIAL IV SCH (21:21)
[2016-12-05] MEDS: DEXTROSE 5%-0.9% NACL 500 ML IV SCH (23:41)
[2016-12-06 00:06] LABS: Glucose,Whole Blood 211 mg/dL (75-99)
[2016-12-06] MEDS: INSULIN LISPRO (humaLOG) 300 UNIT/3 ML VIAL SQ SCH ×4 (00:19→18:14)
[2016-12-06] MEDS: methylPREDNISolone SOD SUCCI 125 MG/2 ML VIAL IV SCH ×4 (00:20→18:15)
[2016-12-06] MEDS ORDERED: SODIUM CHLORIDE 0.9% 500 ML IV ONE (01:05)
[2016-12-06 04:59] LABS: CH 31.7; CHCM 32.8; HCT 34.2 % (34.0-46.0); HDW 2.57; Immature Gran Flag Marked; MCH 31.3 pg (25.0-35.0); MCHC 32.2 g/dL (31.0-37.0); MCV 97.1 fL (80.0-100.0); Mean Platelet Volume 8.2; RBC 3.53 m/uL (3.80-5.40); RDW 12.6 % (11.5-15.5); WBC (Perox) 6.49
[2016-12-06 06:12] LABS: Add Differential Manual Differential
[2016-12-06 06:24] LABS: Glucose,Whole Blood 194 mg/dL (75-99)
[2016-12-06 06:25] LABS: Nucleated Red Blood Cells 0 /100 WBC (0-0); Total Cells Counted 200
[2016-12-06 06:26] LABS: Crenated RBC Present
[2016-12-06 06:27] LABS: Polychromasia Present
[2016-12-06 06:30] LABS: Toxic Vacuolation Present
[2016-12-06 06:37] LABS: Calcium 7.2 mg/dL (8.4-10.2); Magnesium 2.4 mg/dL (1.6-2.3); Potassium 3.2 mmol/L (3.5-5.1)
[2016-12-06] MEDS: HEPARIN SODIUM,PORCINE/D5W PMX 25,000 UNIT in DEXTROSE/WATER 1 500ML.BAG IV SCH ×2 (07:03→17:12)
[2016-12-06] MEDS ORDERED: Potassium Replacement Protocol 1 EACH MISC MISCELLANE PRN ×2 (07:09→18:18)
[2016-12-06] MEDS: BUDESONIDE 0.5 MG/2 ML NEBU INHALATION SCH ×2 (08:10→19:25)
[2016-12-06] MEDS: ALBUTEROL NEBULIZED 2.5 MG/3 ML INHALATION PRN ×3 (08:10→19:25)
[2016-12-06] MEDS: DEXTROSE 5%-0.9% NACL 500 ML IV SCH ×2 (08:58→08:59)
[2016-12-06] MEDS: CEFTAROLINE FOSAMIL 300 MG in SODIUM CHLORIDE 0.9% 250 ML IVPB SCH ×2 (09:00→21:36)
[2016-12-06] MEDS: POTASSIUM CHLORIDE 10 MEQ, LIDOCAINE 2% INJ 10 MG in SODIUM CHLORIDE 0.9% 100 ML IV SCH ×4 (09:00→20:30)
[2016-12-06] MEDS: FAMOTIDINE 20 MG/2 ML VIAL IV SCH ×2 (09:01→21:34)
--- NOTE | 2016-12-06 09:14 | P.PN ---
Subjective This is a 61-year-old female who came into emergency department with shortness of breath and generalized weakness that had been developing over the last 3-4 days. Apparently the patient was stung by a bee in her left axilla, the area became extremely itchy with a diffuse reddened rash. The patient states she also shaved her left axilla in the cellulitis developed. The patient became unresponsive and received an EpiPen injection as well as Benadryl with EMS. This patient lives at a assisted. In the emergency room the patient was noted to have a d-dimer of 5.28 so she was also started on heparin drip, which is currently therapeutic. She was also noted to the septic with a lactic acid of 2.5. Urine drug screen was completed and was positive for tricyclic antidepressants and benzodiazepines. She she was admitted to the medical floor and was also given a dose of Ativan. The patient became somnolent with oxygen saturations 49%. Subsequently she was transferred to the ICU. The patient has since been on BiPAP and her oxygen saturations have improved. However throughout the night the patient was hypotensive but maintained her urine output therefore she was given IV boluses which was effective in bringing up her blood pressure. Patient is also on Solu-Medrol, antibiotics and IV Benadryl. Patient is also noted to be acidotic tenderness on IV fluids of D5W with 3 A of bicarb at 50ml/hr. Wound culture of the left axilla has been taken and is presumptive staph aureus. Upon examination the patient's resting in bed on BiPAP she continues to be somewhat somnolent however responds to voice commands slowly. BiPAP settings IPAP of 12 EPAP of 5 FiO2 35% oxygen saturations 98%. Patient also has a history of being mentally challenged and slurs her speech as a baseline due to a deficit of a previous CVA/TIA. Objective - Vital Signs Vital signs: Vital Signs Temp 96.8 F L 12/05/16 20:30 Pulse 77 12/06/16 08:31 Resp 16 12/06/16 04:00 BP 105/63 12/06/16 08:00 Pulse Ox 96 12/06/16 08:00 Intake & Output 12/05/16 12/06/16 12/06/16 18:59 06:59 18:59 Intake Total 787.145 5455 100 Output Total 1105 1440 225 Balance -475.667 160 -125 Weight 110 kg Intake: IV 400 1600 100 Dextrose 5% in Water 1, 300 600 100 000 ml @ 50 mls/hr IV . Q23H ONE with Sodium Bicarb (1 Meq/ml) 150 ml Rx#:[id number] Dextrose 5%-0.9% NaCl 500 500 ml @ 999 mls/hr IV .Q31M [facility] Rx#:[id number] Sodium Chloride 0.9% 1, 100 000 ml @ 100 mls/hr IV . Q10H [facility] Rx#:[id number] Sodium Chloride 0.9% 500 500 ml @ 999 mls/hr IV .Q31M ONE Rx#:[id number] Intake, IV Titration 229.333 Amount Heparin Sodium,Porcine/ 229.333 D5w Pmx 25,000 unit In Dextrose/Water 1 500ml. bag @ 18 UNITS/KG/HR 36. 25 mls/hr IV .[id number] [facility] Rx#:[id number] Output: Urine 1105 1440 225 Other: Voiding Method Indwelling Catheter Indwelling Catheter - Exam GENERAL EXAM: Somewhat Somnolent, comfortable in no apparent distress. HEAD: Normocephalic. EYES: Normal reaction of pupils, equal size. Dry eyes NOSE: Clear with pink turbinates. THROAT: No erythema or exudates. NECK: No masses, no JVD. CHEST: No chest wall deformity. LUNGS: Equal air entry with no crackles, wheeze, rhonchi or dullness. CVS: S1 and S2 normal with no audible mumurs, regular rhythm. ABDOMEN: No hepatosplenomegaly, normal bowel sounds, no guarding or rigidity. EXTREMITIES: No edema noted, pedal pulses palpable. SKIN: Left axilla noted to have an definite indurated area of erythema the area is firm and hot. The small less than 1 cm pustule is noted in the middle of the axilla currently no drainage is seen. However previously the area was draining yesterday. CENTRAL NERVOUS SYSTEM: No focal deficits, tone is normal in all 4 extremities. - Labs CBC & Chem 7: 12/07/16 06:43 12/07/16 06:43 Labs: Abnormal Lab Results - Last 24 Hours (Table) 12/05/16 12/05/16 12/05/16 Range/Units 10:17 11:17 11:17 RBC (3.80-5.40) m/uL Hgb (11.4-16.0) gm/dL Plt Count (150-450) k/uL Lymphocytes # (Manual) (1.0-4.8) k/uL APTT 47.1 H (22.0-30.0) sec ABG pH (7.35-7.45) ABG pO2 (83-108) mmHg ABG HCO3 (21-25) mmol/L ABG O2 Saturation (94-97) % Sodium 131 L (137-145) mmol/L Potassium (3.5-5.1) mmol/L Chloride 108 H (98-107) mmol/L Carbon Dioxide 13 L (22-30) mmol/L BUN 54 H (7-17) mg/dL Creatinine 2.50 H (0.52-1.04) mg/dL Glucose 163 H (74-99) mg/dL POC Glucose (mg/dL) 162 H (75-99) mg/dL Calcium 7.1 L (8.4-10.2) mg/dL Magnesium (1.6-2.3) mg/dL 12/05/16 12/05/16 12/05/16 Range/Units 11:45 14:15 15:35 RBC (3.80-5.40) m/uL Hgb (11.4-16.0) gm/dL Plt Count (150-450) k/uL Lymphocytes # (Manual) (1.0-4.8) k/uL APTT (22.0-30.0) sec ABG pH 7.16 L* (7.35-7.45) ABG pO2 191 H (83-108) mmHg ABG HCO3 15 L (21-25) mmol/L ABG O2 Saturation 98.7 H (94-97) % Sodium (137-145) mmol/L Potassium (3.5-5.1) mmol/L Chloride (98-107) mmol/L Carbon Dioxide (22-30) mmol/L BUN (7-17) mg/dL Creatinine (0.52-1.04) mg/dL Glucose (74-99) mg/dL POC Glucose (mg/dL) 229 H 201 H (75-99) mg/dL Calcium (8.4-10.2) mg/dL Magnesium (1.6-2.3) mg/dL 12/05/16 12/06/16 12/06/16 Range/Units 18:08 00:04 04:25 RBC 3.53 L (3.80-5.40) m/uL Hgb 11.0 L (11.4-16.0) gm/dL Plt Count 128 L (150-450) k/uL Lymphocytes # (Manual) 0.4 L (1.0-4.8) k/uL APTT (22.0-30.0) sec ABG pH (7.35-7.45) ABG pO2 (83-108) mmHg ABG HCO3 (21-25) mmol/L ABG O2 Saturation (94-97) % Sodium (137-145) mmol/L Potassium (3.5-5.1) mmol/L Chloride (98-107) mmol/L Carbon Dioxide (22-30) mmol/L BUN (7-17) mg/dL Creatinine (0.52-1.04) mg/dL Glucose (74-99) mg/dL POC Glucose (mg/dL) 162 H 211 H (75-99) mg/dL Calcium (8.4-10.2) mg/dL Magnesium (1.6-2.3) mg/dL 12/06/16 12/06/16 12/06/16 Range/Units 05:29 05:29 06:22 RBC (3.80-5.40) m/uL Hgb (11.4-16.0) gm/dL Plt Count (150-450) k/uL Lymphocytes # (Manual) (1.0-4.8) k/uL APTT 64.1 H (22.0-30.0) sec ABG pH (7.35-7.45) ABG pO2 (83-108) mmHg ABG HCO3 (21-25) mmol/L ABG O2 Saturation (94-97) % Sodium 135 L (137-145) mmol/L Potassium 3.2 L (3.5-5.1) mmol/L Chloride 108 H (98-107) mmol/L Carbon Dioxide 16 L (22-30) mmol/L BUN 53 H (7-17) mg/dL Creatinine 1.80 H (0.52-1.04) mg/dL Glucose 193 H (74-99) mg/dL POC Glucose (mg/dL) 194 H (75-99) mg/dL Calcium 7.2 L (8.4-10.2) mg/dL Magnesium 2.4 H (1.6-2.3) mg/dL Microbiology - Last 24 Hours (Table) 12/04/16 20:18 Urine Culture - Final Urine,Catheterized 12/04/16 19:36 Blood Culture - Preliminary Blood No Growth after 24 hours 12/04/16 21:30 Gram Stain - Preliminary Axilla - Left Wound Culture - Preliminary Presumptive Staph aureus Assessment and Plan Plan: Assessment Anaphylaxis reaction Metabolic acidosis and elevated d-dimer due to severe sepsis, related to staph wound infection and acute renal failure Acute hypoxic respiratory failure, can not exclude PE at this time. Hypotension Left abscess of the axilla Cellulitis of the left axilla Schizoaffective disorder Anxiety Hypokalemic Morbid obesity Plan Medications have been reviewed and will be continued as ordered. We will continue to monitor her blood pressures closely as well as urine output. Currently the patient is hemodynamically stable. Patient is still somewhat somnolent, however does respond to voice commands. Continue with IV antibiotics , IV Benadryl and steroids. Replace electrolytes and monitor per protocol. Continue heparin, may do CTA when renal function improves. Continue with pulmonary hygiene, coughing and deep breathing exercises, and supportive care. Supplemental oxygen or BiPAP to maintain oxygen saturations of 92% or better. Continue nebulizer treatments. GI and DVT prophylaxis. Continue with Neuro, ID , and nephro consults and appreciate recommendations. We will continue to monitor labs/results and adjust treatment as necessary. Further recommendations pending. I performed an examination of the patient and discussed their management with the nurse practitioner. I have reviewed the nurse practitioner's note and agree with the documented findings and plan of care. Critical care consult time 60 min
--- NOTE | 2016-12-06 09:26 | P.NPCON ---
History of Present Illness - Reason for Consult acute renal failure - History of Present Illness Reason for consultation: Acute kidney injury History of present illness: Patient is a 61-year-old female seen in renal consultation for acute kidney injury. Patient's currently seen in the intensive care unit and she is a BiPAP in place. She is quite lethargic and not really responding much to verbal commands. Patient came to the hospital with generalized weakness and some dyspnea. She was noted to be extremely hypotensive on admission with systolic blood pressure in the 70s. She was noted to have a rash in her left upper extremity and there is a question of an insect sting. She is also noted to have erythema in her left axillary region and a culture was obtained which reveals staph aureus. She is currently maintained on IV antibiotics and infectious disease is following. Hemodynamically she is more stable now. She is currently maintained on isotonic sodium bicarbonate drip. She is not tolerating much oral intake at this time. Her creatinine was 3.4 on admission and is down to 1.8 today. She is nonoliguric. Her baseline creatinine is near 1. Vital signs are stable. General: The patient appeared well nourished and normally developed. HEENT: Head exam is unremarkable. Neck is without jugular venous distension. LUNGS: Lungs are clear to auscultation and percussion. Breath sounds decreased. HEART: Rate and Rhythm are regular. First and second heart sounds normal. No murmurs, rubs or gallops. ABDOMEN: Abdominal exam reveals normal bowel sounds. Non-tender and non- distended. No evidence of peritonitis. EXTREMITITES: No clubbing, cyanosis, or edema. Left axillary erythema noted. No obvious drainage. Past Medical History Past Medical History: Asthma, Coronary Artery Disease (CAD), CVA/TIA, Eye Disorder, GERD/Reflux, Hyperlipidemia, Hypertension Additional Past Medical History / Comment(s): Macular degeneration,bronchial asthma,Tamra-Caregiver at [facility] pt signs own consent. History of Any Multi-Drug Resistant Organisms: None Reported Past Surgical History: Back Surgery, Cholecystectomy, Ear Surgery, Heart Catheterization, Hysterectomy, Tonsillectomy Additional Past Surgical History / Comment(s): eye surgery, cardiac cath on 2016 with moderate stenosis of LAD noted - no stenting at that time recommend medical management and return for angioplasty if sx persist Past Anesthesia/Blood Transfusion Reactions: No Reported Reaction Past Psychological History: Anxiety, Schizoaffective Disorder Additional Psychological History / Comment(s): Resident of a correction Smoking Status: Never smoker - Past Family History Mother Family Medical History: Myocardial Infarction ([place]) Father Family Medical History: Cancer Additional Family Medical History / Comment(s): throat CA Brother(s) Family Medical History: Cancer Additional Family Medical History / Comment(s): liver Medications and Allergies Home Medications Medication Instructions Recorded Confirmed Type Cholecalciferol [Vitamin D3] 2,000 unit PO DAILY 08/06/14 12/04/16 History Citalopram Hydrobromide 40 mg PO DAILY 08/06/14 12/04/16 History [Citalopram HBr] Cyanocobalamin [Vitamin B-12] 1,000 mcg PO Q48H 08/06/14 12/04/16 History LORazepam [Ativan] 1 mg PO BID 08/06/14 12/04/16 History Omeprazole [PriLOSEC] 40 mg PO AC-BRKFST 08/06/14 12/04/16 History Atenolol [Tenormin] 25 mg PO DAILY 07/21/16 12/04/16 History Gabapentin [Neurontin] 300 mg PO BID 07/21/16 12/04/16 History Loratadine [Claritin] 10 mg PO DAILY 07/21/16 12/04/16 History Sennosides [Senna] 8.6 mg PO BID 07/21/16 12/04/16 History Nitroglycerin Sl Tabs [Nitrostat] 0.4 mg SUBLINGUAL Q5M PRN 07/22/16 12/04/16 History Vit A/Vit C/Vit E/Zinc/Copper 1 cap PO DAILY 07/22/16 12/04/16 History [ICAPS SOFTGEL] Aspirin EC [Ecotrin Low Dose] 81 mg PO DAILY 07/27/16 12/04/16 History Calcium Carbonate [Tums] 500 mg PO TID PRN 07/27/16 12/04/16 History QUEtiapine FUMARATE [Seroquel Xr] 400 mg PO DAILY@1600 07/27/16 12/04/16 History QUEtiapine [SEROquel] 400 mg PO HS 07/27/16 12/04/16 History Simvastatin [Zocor] 20 mg PO HS 07/27/16 12/04/16 History Ibuprofen [Motrin] 600 mg PO Q6H PRN 12/04/16 12/04/16 History Allergies Allergy/AdvReac Type Severity Reaction Status Date / Time No Known Allergies Allergy Verified 12/04/16 20:00 Physical Exam Vitals: Vital Signs Temp Pulse Pulse Resp BP Pulse Ox 12/06/16 09:00 78 100/64 97 12/06/16 08:31 77 12/06/16 08:30 97.6 F 77 102/64 97 12/06/16 08:10 78 12/06/16 08:00 78 105/63 96 12/06/16 07:30 79 92/62 97 12/06/16 07:00 76 91/59 95 12/06/16 06:30 77 99/66 97 12/06/16 06:00 72 91/54 97 12/06/16 05:30 73 98/55 97 12/06/16 05:00 74 97/59 98 12/06/16 04:30 73 94/58 97 12/06/16 04:00 75 86 16 93/62 97 12/06/16 03:30 75 98/57 97 12/06/16 03:00 74 99/57 98 12/06/16 02:30 73 94/55 97 12/06/16 02:00 82 100/63 98 12/06/16 01:30 74 78/47 96 12/06/16 01:00 77 75/50 97 12/06/16 00:30 78 74/50 97 12/06/16 00:00 76 86 16 76/45 97 12/05/16 23:32 76 79/50 97 12/05/16 23:30 76 79/50 97 12/05/16 23:00 84 71/49 96 12/05/16 22:30 77 84/52 97 12/05/16 22:00 79 75/46 97 12/05/16 21:30 77 84/54 97 12/05/16 21:00 90 16 84/54 97 12/05/16 20:30 96.8 F L 80 86/60 97 12/05/16 20:00 82 14 86/60 97 12/05/16 19:50 81 12/05/16 19:32 81 12/05/16 19:30 84 84/54 97 07/15/17 19:00 85 14 84/54 96 07/15/17 18:50 87 14 92/52 96 07/15/17 18:40 89 14 92/52 96 07/15/17 18:30 90 14 92/52 96 07/15/17 18:20 92 14 92/52 96 07/15/17 18:10 95 14 92/52 97 07/15/17 18:00 98 92/52 97 07/15/17 17:50 96 92/61 97 07/15/17 17:40 96 92/61 97 07/15/17 17:30 93 92/61 98 07/15/17 17:20 92 92/61 97 07/15/17 17:10 94 92/61 98 07/15/17 17:00 96 14 92/61 98 07/15/17 16:50 107 H 14 83/52 97 07/15/17 16:40 96 14 83/52 98 07/15/17 16:30 95 14 83/52 98 07/15/17 16:20 94 14 83/52 98 07/15/17 16:10 91 14 83/52 98 07/15/17 16:00 97.2 F L 92 14 83/52 97 07/15/17 15:50 91 14 85/54 98 07/15/17 15:40 92 14 85/54 98 07/15/17 15:33 14 07/15/17 15:30 96 14 85/54 97 07/15/17 15:20 92 14 85/54 98 07/15/17 15:10 90 14 85/54 98 07/15/17 15:00 89 14 85/54 98 07/15/17 14:50 91 14 93/56 98 07/15/17 14:40 96 14 93/56 98 07/15/17 14:30 95 14 93/56 98 07/15/17 14:20 93 14 93/56 98 07/15/17 14:10 92 16 93/56 98 07/15/17 14:00 94 16 93/56 98 07/15/17 13:50 97 16 106/62 98 07/15/17 13:40 99 16 106/62 98 07/15/17 13:30 101 H 16 106/62 98 07/15/17 13:20 106 H 16 106/62 98 07/15/17 13:10 104 H 16 106/62 98 12/05/16 13:00 109 H 16 106/62 98 12/05/16 12:50 109 H 16 108/56 98 12/05/16 12:49 98.4 F 109 H 16 108/56 98 12/05/16 12:06 118 H 12/05/16 12:00 18 12/05/16 11:53 103 H Intake and Output 12/05/16 12/06/16 12/06/16 22:59 06:59 14:59 Intake Total 400 1400 160 Output Total 765 890 300 Balance -365 510 -140 Intake: IV 400 1400 160 0.9 NACL 10 Dextrose 5% in Water 1, 400 400 150 000 ml @ 50 mls/hr IV . Q23H ONE with Sodium Bicarb (1 Meq/ml) 150 ml Rx#:[id number] Dextrose 5%-0.9% NaCl 500 500 ml @ 999 mls/hr IV .Q31M [facility] Rx#:[id number] Sodium Chloride 0.9% 500 500 ml @ 999 mls/hr IV .Q31M [facility] Rx#:[id number] Output: Urine 765 890 300 Other: Voiding Method Indwelling Catheter Indwelling Catheter Weight 110 kg Results - Lab Results Most recent lab results ABG pH 7.16 (7.35-7.45) L* 12/05/16 11:45 ABG pCO2 45 mmHg (35-45) 12/05/16 11:45 ABG pO2 191 mmHg (83-108) H 12/05/16 11:45 ABG HCO3 15 mmol/L (21-25) L 12/05/16 11:45 ABG O2 Saturation 98.7 % (94-97) H 12/05/16 11:45 Calcium 7.2 mg/dL (8.4-10.2) L 12/06/16 05:29 Phosphorus 4.9 mg/dL (2.5-4.5) H 12/05/16 04:12 Magnesium 2.4 mg/dL (1.6-2.3) H 12/06/16 05:29 12/06/16 04:25 12/06/16 05:29 Assessment and Plan Plan: Assessment: #1. Nonoliguric acute kidney injury mostly prerenal secondary to hypotension. Improving. Creatinine was 3.4 on admission and is down to 1.8 today. #2. Hypotension possibly related to anaphylactic reaction. Improved. #3. Metabolic acidosis secondary to acute kidney injury. Improving. #4. Hypovolemic hyponatremia. Improved with IV hydration. #5. Hypokalemia from renal potassium wasting with recovering renal function. Magnesium and replete. #6. Left axillary cellulitis with questionable insect sting. Plan: I will increase isotonic sodium bicarbonate drip to 75 mL an hour. Replace potassium. Avoid nephrotoxic agents and hypotensive episodes. Encourage oral intake as tolerated. Repeat electrolytes in the morning. Antibiotics per infectious disease recommendations. Thank you for the consultation. I will continue to follow the patient with you during her hospital stay.
[2016-12-06 11:31] LABS: ABG Base Excess -6.7 mmol/L; ABG HCO3 18 mmol/L (21-25); ABG PCO2 36 mmHg (35-45); ABG PH 7.32 (7.35-7.45); ABG PO2 102 mmHg (83-108); ABG TCO2 19 mmol/L (19-24)
[2016-12-06] MEDS: GABAPENTIN 300 MG CAP PO SCH ×2 (11:33→20:23)
[2016-12-06] MEDS: LORATADINE 10 MG TAB PO SCH (11:33)
[2016-12-06] MEDS: ASPIRIN 81 MG CHEW PO SCH (11:33)
[2016-12-06] MEDS: CITALOPRAM HYDROBROMIDE 20 MG TAB PO SCH (11:33)
[2016-12-06] MEDS: SENNOSIDES 8.6 MG TAB PO SCH ×2 (11:33→20:23)
[2016-12-06] MEDS: PANTOPRAZOLE 40 MG TABLET PO SCH (11:33)
[2016-12-06] MEDS ORDERED: DEXTROSE 5% IN WATER 1,000 ML with SODIUM BICARB (1 MEQ/ML) 150 ML IV ONE (12:30)
[2016-12-06 13:52] LABS: Glucose,Whole Blood 179 mg/dL (75-99)
[2016-12-06] MEDS: CHOLECALCIFEROL 1,000 UNIT TAB PO SCH (14:02)
[2016-12-06] MEDS: VIT A,C & E-LUTEIN-MINERALS 1 EACH TAB PO SCH (14:02)
[2016-12-06] MEDS: CYANOCOBALAMIN 500 MCG TAB PO SCH (14:02)
[2016-12-06 15:33] LABS: Potassium 3.3 mmol/L (3.5-5.1)
--- NOTE | 2016-12-06 16:05 | PN ---
DATE OF SERVICE: 12/06/16 The patient was seen again on 12/06/16. She is sleep but arousable. She continues to be on BIPAP. She is on heparin at this time because of the possibility of PE. Hemodynamically she is more stable today. On physical examination, her blood pressure is 107/57. Respiratory rate is 15. Pulse rate 83. O2 sat on 35% FIO2 is 96%. Labs revealed an ABG, pH 7.32, pCO2 36, pO2 102, bicarb 18. O2 sat 97%. Sodium 135. Potassium 3.2, chloride 108, bicarb 16, BUN 53, creatinine 1.8, magnesium 2.4. IMPRESSION: 1. Anaphylaxis with allergic reaction with which the patient is doing better. 2. Acute respiratory failure with hypercarbia which the patient is on bicarb. 3. Metabolic encephalopathy. 4. Hypokalemia. 5. Metabolic acidosis secondary to acute renal failure. 6. Possible pulmonary embolism as D. dimer is elevated though and CTA cannot be done at this time because of renal function. Continue heparin. When her renal function is optimized, considered doing CTA. Continue heparin. Continue BIPAP. Her prognosis at this time is fair. MTDD
[2016-12-06 16:21] LABS: Vitamin B12 >1000 pg/mL (239-931)
[2016-12-06 16:46] LABS: C Reactive Protein 401.6 mg/L (<10.0)
--- NOTE | 2016-12-06 17:45 | CONS ---
This is a 61 year old lady who has been transferred yesterday from the floor after becoming hypoxic with Ativan to the ICU. She is a resident of a [facility]. She has history of underlying schizophrenic issues. She has hypertension. Hyperlipidemia. She has some depression. She came into the hospital after being seen by visiting physicians. She has a question of an insect bite three days ago. After which she came into the hospital, had extensive rash, given Solu-Medrol, Pepcid and Ativan. Then became hypoxic and transferred to the ICU. I was asked to see her to rule out any myocardial ischemia. Apparently she had a previous cardiac cath that was performed by Dr. Jade in July of this year. Cardiac cath revealed moderate 50% stenosis in the mid LAD without significant disease in the dominant RCA or circumflex. LV gram was not performed. At that time, she had presented with what seems to be an episode of chest pain and also had an abnormal stress test suggesting inferior wall ischemic which turned out to be a false negative finding. LV end diastolic pressures were elevated. In July, the patient's presentation was mainly with an episode of chest discomfort. she did not have any major issues and there was question whether the LAD lesion was significant but on looking at angiogram, this seems to be insignificant lesion which does not require attention. Since her transfer to ICU, she remains somewhat drowsy but hemodynamically stable. Oxygenation has improved. She is resting comfortably and she has a BIPAP in place with which she has improved. She is however, lethargic and seems to respond inconsistently to verbal commands. Past medical history: 1. Noncritical CAD. 2. Hypertension. 3. Hyperlipidemia. 4. Also history of underlying psychiatric issues. Laboratory data suggests that her creatinine is up and she has improved urine output but still remains somewhat oliguric. Medications at home include: 1. Vitamin supplements. 2. Omeprazole. 3. Atenolol. 4. Seroquel. 5. Calcium supplements. 6. Aspirin 81 mg daily. 7. Motrin. 8. Simvastatin 20 mg daily. On examination, blood pressure is 108/70. Pulse rate is 80 per minute. HEENT limited examination is unremarkable. Neck is supple. Short and thick. I cannot appreciate JVD. Heart exam reveals S1, S2 with somewhat distant heart sounds. Lungs revealed bilateral diminished air entry. Abdomen soft. Lower extremities revealed diminished pulses. Trace edema. Central nervous system grossly within normal limits. EKG revealed sinus mechanism without significant ST-T changes. IMPRESSION: 1. Probable underlying chronic obstructive pulmonary disease/sleep apnea, on BIPAP. 2. Obesity. 3. Underlying schizophrenia with underlying depression as well. 4. Noncritical coronary artery disease. 5. No evidence to suggest ongoing myocardial ischemia. RECOMMENDATIONS: From a cardiac standpoint, I have no specific recommendations. I will obtain echocardiogram to assess LV function. Recent cardiac cath suggests that she has only moderate noncritical disease. The patient is being considered for a CT angio in view of her abnormal D. dimer and I do not have any major objection at this time. Her creatinine is somewhat high but if it okay with nephrology, we can proceed with CT angiography. The patient is on IV heparin. We will continue the same until the CT angiography results or VQ scan results are back. I will see the patient as needed. Thank you very much for the consult. KRYSTYNA
[2016-12-06 18:07] LABS: Glucose,Whole Blood 188 mg/dL (75-99)
[2016-12-06] MEDS: ATORVASTATIN 10 MG TAB PO SCH (20:22)
[2016-12-06] MEDS: QUEtiapine 400 MG TAB PO SCH (20:23)
--- NOTE | 2016-12-06 22:55 | P.CNNES ---
History of Present Illness Consult date: 12/06/16 Requesting physician: Adal Juarez Reason for Consult: Rule out CVA/TIA Chief complaint: CVA/TIAlethargy History of Present Illness: Neurology is being asked to consult on a 61-year-old female who presented to the emergency room with shortness of breath and generalized weakness that was developing over the last 3-4 days. Patient was stung by a bee in her left axilla, became itchy with diffuse reddened rash. The patient then shaved her axilla with a razor and developed cellulitis. Patient became unresponsive and received an epinephrine injection as well as Benadryl with EMS. Patient is a [facility] resident with unknown baseline cognitive function. Patient is known to be schizophrenic with a possible history of prior CVA or TIA. In the emergency room the patient was noted to have a d-dimer of 5.28. She was also started on heparin drip which is currently therapeutic. She is septic with a lactic acid of 2.5. Urine drug screen was completed and was positive for tricyclic antidepressants and benzodiazepines. She was originally admitted to the general medical floor and was also given Ativan. Patient became somnolent with oxygen saturations of 49%. Patient transferred to ICU. Patient then placed on BiPAP and oxygen saturations improved. Patient did have hypotensive occurrences during the nighttime but did maintain urine output. IV boluses were utilized to maintain elevated blood pressure. Patient is also on Solu- Medrol, antibiotics and IV Benadryl. Wound culture of left axilla is known to have staph aureus. On contact, the patient is supine in bed with BiPAP machine active. Patient has a history of being mentally challenged, slurred speech as her last known baseline. Providers have very limited information as to the prehospital/ preinfectious state cognitive function at this time. Patient would intermittently open her eyes to verbal commands but would also need redirection and slight sternal rub to maintain alertness. Review of Systems All systems not noted in HPI or negative Past Medical History Past Medical History: Asthma, Coronary Artery Disease (CAD), CVA/TIA, Eye Disorder, GERD/Reflux, Hyperlipidemia, Hypertension Additional Past Medical History / Comment(s): Macular degeneration,bronchial asthma,Tamra-Caregiver at [facility] states pt signs own consent. History of Any Multi-Drug Resistant Organisms: None Reported Past Surgical History: Back Surgery, Cholecystectomy, Ear Surgery, Heart Catheterization, Hysterectomy, Tonsillectomy Additional Past Surgical History / Comment(s): eye surgery, cardiac cath on 2016 with moderate stenosis of LAD noted - no stenting at that time recommend medical management and return for angioplasty if sx persist Past Anesthesia/Blood Transfusion Reactions: No Reported Reaction Past Psychological History: Anxiety, Schizoaffective Disorder Additional Psychological History / Comment(s): Resident of a correction Smoking Status: Never smoker - Past Family History Mother Family Medical History: Myocardial Infarction ([place]) Father Family Medical History: Cancer Additional Family Medical History / Comment(s): throat CA Brother(s) Family Medical History: Cancer Additional Family Medical History / Comment(s): liver Medications and Allergies Home Medications Medication Instructions Recorded Confirmed Type Cholecalciferol [Vitamin D3] 2,000 unit PO DAILY 08/06/14 12/04/16 History Citalopram Hydrobromide 40 mg PO DAILY 08/06/14 12/04/16 History [Citalopram HBr] Cyanocobalamin [Vitamin B-12] 1,000 mcg PO Q48H 08/06/14 12/04/16 History LORazepam [Ativan] 1 mg PO BID 08/06/14 12/04/16 History Omeprazole [PriLOSEC] 40 mg PO AC-BRKFST 08/06/14 12/04/16 History Atenolol [Tenormin] 25 mg PO DAILY 07/21/16 12/04/16 History Gabapentin [Neurontin] 300 mg PO BID 07/21/16 12/04/16 History Loratadine [Claritin] 10 mg PO DAILY 07/21/16 12/04/16 History Sennosides [Senna] 8.6 mg PO BID 07/21/16 12/04/16 History Nitroglycerin Sl Tabs [Nitrostat] 0.4 mg SUBLINGUAL Q5M PRN 07/22/16 12/04/16 History Vit A/Vit C/Vit E/Zinc/Copper 1 cap PO DAILY 07/22/16 12/04/16 History [ICAPS SOFTGEL] Aspirin EC [Ecotrin Low Dose] 81 mg PO DAILY 07/27/16 12/04/16 History Calcium Carbonate [Tums] 500 mg PO TID PRN 07/27/16 12/04/16 History QUEtiapine FUMARATE [Seroquel Xr] 400 mg PO DAILY@1600 07/27/16 12/04/16 History QUEtiapine [SEROquel] 400 mg PO HS 07/27/16 12/04/16 History Simvastatin [Zocor] 20 mg PO HS 07/27/16 12/04/16 History Ibuprofen [Motrin] 600 mg PO Q6H PRN 12/04/16 12/04/16 History Allergies Allergy/AdvReac Type Severity Reaction Status Date / Time No Known Allergies Allergy Verified 12/04/16 20:00 Physical Examination - Vital Signs Vital Signs: Vital Signs Temp Pulse Pulse Resp BP Pulse Ox 12/06/16 21:30 90 18 109/52 96 12/06/16 21:00 96 24 108/56 96 12/06/16 20:30 91 13 105/57 97 12/06/16 20:00 98.2 F 91 94 13 107/49 96 12/06/16 19:42 92 12/06/16 19:30 92 24 103/55 99 12/06/16 19:25 88 12/06/16 19:00 88 15 106/56 96 12/06/16 18:30 86 13 104/54 96 12/06/16 18:00 87 13 105/53 96 12/06/16 17:30 87 18 100/52 97 12/06/16 17:00 91 16 94/52 97 12/06/16 16:30 90 22 101/53 97 12/06/16 16:00 85 86 16 91/48 97 12/06/16 15:44 84 12/06/16 15:33 83 12/06/16 15:30 83 14 86/47 96 12/06/16 15:00 87 17 90/52 96 12/06/16 14:30 87 29 H 97/54 97 12/06/16 14:00 86 18 87/47 96 12/06/16 13:30 91 22 103/59 94 L 12/06/16 13:00 82 13 96/51 97 12/06/16 12:30 83 13 105/59 97 12/06/16 12:00 81 86 12 116/61 97 12/06/16 11:30 83 13 107/57 98 12/06/16 11:00 83 15 107/57 96 07/16/17 10:30 83 14 104/66 96 12/06/16 10:00 79 13 110/65 97 12/06/16 09:30 79 108/66 96 12/06/16 09:00 78 100/64 97 12/06/16 08:31 77 12/06/16 08:30 97.6 F 77 102/64 97 12/06/16 08:10 78 12/06/16 08:00 78 86 15 105/63 96 12/06/16 07:30 79 92/62 97 12/06/16 07:00 76 91/59 95 12/06/16 06:30 77 99/66 97 12/06/16 06:00 72 91/54 97 12/06/16 05:30 73 98/55 97 12/06/16 05:00 74 97/59 98 12/06/16 04:30 73 94/58 97 12/06/16 04:00 75 86 16 93/62 97 12/06/16 03:30 75 98/57 97 12/06/16 03:00 74 99/57 98 12/06/16 02:30 73 94/55 97 12/06/16 02:00 82 100/63 98 12/06/16 01:30 74 78/47 96 12/06/16 01:00 77 75/50 97 12/06/16 00:30 78 74/50 97 12/06/16 00:00 76 86 16 76/45 97 12/05/16 23:32 76 79/50 97 12/05/16 23:30 76 79/50 97 12/05/16 23:00 84 71/49 96 12/05/16 22:30 77 84/52 97 Intake and Output 12/06/16 12/06/16 12/06/16 06:59 14:59 22:59 Intake Total 1400 575 949.913 Output Total 890 710 755 Balance 510 -135 194.913 Intake: IV 1400 575 510 0.9 NACL 50 60 Dextrose 5% in Water 1, 400 525 450 000 ml @ 75 mls/hr IV . [id number] ONE with Sodium Bicarb (1 Meq/ml) 150 ml Rx#:[id number] Dextrose 5%-0.9% NaCl 500 500 ml @ 999 mls/hr IV .Q31M [facility] Rx#:[id number] Sodium Chloride 0.9% 500 500 ml @ 999 mls/hr IV .Q31M ONE Rx#:[id number] Intake, IV Titration 439.913 Amount Heparin Sodium,Porcine/ 439.913 D5w Pmx 25,000 unit In Dextrose/Water 1 500ml. bag @ 18 UNITS/KG/HR 36. 25 mls/hr IV .[id number] [facility] Rx#:[id number] Output: Urine 890 710 755 Other: Voiding Method Indwelling Catheter Indwelling Catheter Indwelling Catheter Weight 110 kg Constitutional: AOx1, cooperative, Fatigued HEENT: NC/AT, no facial asymmetry is seen. Throat: Supple, no masses Respiratory: Patient on BiPAP Cardiac: Regular rate and Rhythm GI: non tender, non distended Musculoskeletal: Planning Manager strengths are equal bilaterally 3/5, Lower extremity strengths are equal bilaterally at 3/5. Neurological: CN II-XII in tact, patient was AOx1, speech and language are Slurred, no unilateralizing weakness, no seizure activity note on physical exam. Sensation was normal. Integementary: cellulitis- left axilla Psychiatric: flat and appropriate Results Chest x-rayno acute process CT brainno acute process Abnormal pertinent laboratory blood work results: PH 7.3 Bicarbonate 18 Glucose 193 CRP 401.6 B12 greater than 1000 ESR 110 K+ 3.3 Na 135 Chloride 108 Carbon dioxide 16 BUN 53 Creatinine 1.8 Calcium 7.2 Magnesium 2.4 - Laboratory Findings CBC and BMP: 12/06/16 04:25 12/06/16 14:55 Abnormal Lab Findings: Abnormal Labs 12/04/16 12/04/16 12/04/16 19:36 19:36 19:36 RBC 3.67 L Hgb Hct Plt Count Lymphocytes # (Manual) 0.5 L Monocytes # (Manual) 1.1 H ESR APTT D-Dimer ABG pH ABG pO2 ABG HCO3 ABG O2 Saturation Sodium 127 L Potassium Chloride 96 L Carbon Dioxide 18 L BUN 57 H Creatinine 3.40 H Glucose 130 H POC Glucose (mg/dL) Plasma Lactic Acid Britton Calcium Phosphorus 4.8 H Magnesium AST 53 H Total Creatine Kinase 567 H CK-MB (CK-2) 5.4 H* C-Reactive Protein Total Protein 5.3 L Albumin 2.6 L Vitamin B12 Urine Appearance Urine Protein Urine Bilirubin Urine Bacteria Hyaline Casts Urine Yeast (Budding) U Tricyclic Antidepress U Benzodiazepines Scrn 12/04/16 12/04/16 12/04/16 19:36 19:36 19:44 RBC Hgb Hct Plt Count Lymphocytes # (Manual) Monocytes # (Manual) ESR APTT 30.1 H D-Dimer 5.28 H ABG pH ABG pO2 ABG HCO3 ABG O2 Saturation Sodium Potassium Chloride Carbon Dioxide BUN Creatinine Glucose POC Glucose (mg/dL) 137 H Plasma Lactic Acid Britton 2.5 H* Calcium Phosphorus Magnesium AST Total Creatine Kinase CK-MB (CK-2) C-Reactive Protein Total Protein Albumin Vitamin B12 Urine Appearance Urine Protein Urine Bilirubin Urine Bacteria Hyaline Casts Urine Yeast (Budding) U Tricyclic Antidepress U Benzodiazepines Scrn 12/04/16 12/04/16 12/05/16 20:18 20:18 00:02 RBC Hgb Hct Plt Count Lymphocytes # (Manual) Monocytes # (Manual) ESR APTT D-Dimer ABG pH ABG pO2 ABG HCO3 ABG O2 Saturation Sodium Potassium Chloride Carbon Dioxide BUN Creatinine Glucose POC Glucose (mg/dL) Plasma Lactic Acid Britton Calcium Phosphorus Magnesium AST Total Creatine Kinase 657 H CK-MB (CK-2) 7.5 H* C-Reactive Protein Total Protein Albumin Vitamin B12 Urine Appearance Cloudy H Urine Protein 1+ H Urine Bilirubin 1+ H Urine Bacteria Rare H Hyaline Casts 4 H Urine Yeast (Budding) Few H U Tricyclic Antidepress Detected H U Benzodiazepines Scrn Detected H 12/05/16 12/05/16 12/05/16 04:12 04:12 04:12 RBC 3.38 L Hgb 11.0 L Hct 32.9 L Plt Count Lymphocytes # (Manual) 0.2 L Monocytes # (Manual) ESR APTT 146.6 H* D-Dimer ABG pH ABG pO2 ABG HCO3 ABG O2 Saturation Sodium 130 L Potassium Chloride Carbon Dioxide 16 L BUN 55 H Creatinine 2.70 H Glucose 173 H POC Glucose (mg/dL) Plasma Lactic Acid Britton Calcium 7.2 L Phosphorus 4.9 H Magnesium AST Total Creatine Kinase CK-MB (CK-2) C-Reactive Protein Total Protein Albumin Vitamin B12 Urine Appearance Urine Protein Urine Bilirubin Urine Bacteria Hyaline Casts Urine Yeast (Budding) U Tricyclic Antidepress U Benzodiazepines Scrn 12/05/16 12/05/16 12/05/16 07:24 10:17 11:17 RBC Hgb Hct Plt Count Lymphocytes # (Manual) Monocytes # (Manual) ESR APTT 47.1 H D-Dimer ABG pH ABG pO2 ABG HCO3 ABG O2 Saturation Sodium Potassium Chloride Carbon Dioxide BUN Creatinine Glucose POC Glucose (mg/dL) 162 H Plasma Lactic Acid Britton Calcium Phosphorus Magnesium AST Total Creatine Kinase 504 H CK-MB (CK-2) 7.8 H* C-Reactive Protein Total Protein Albumin Vitamin B12 Urine Appearance Urine Protein Urine Bilirubin Urine Bacteria Hyaline Casts Urine Yeast (Budding) U Tricyclic Antidepress U Benzodiazepines Scrn 12/05/16 12/05/16 12/05/16 11:17 11:45 14:15 RBC Hgb Hct Plt Count Lymphocytes # (Manual) Monocytes # (Manual) ESR APTT D-Dimer ABG pH 7.16 L* ABG pO2 191 H ABG HCO3 15 L ABG O2 Saturation 98.7 H Sodium 131 L Potassium Chloride 108 H Carbon Dioxide 13 L BUN 54 H Creatinine 2.50 H Glucose 163 H POC Glucose (mg/dL) 229 H Plasma Lactic Acid Britton Calcium 7.1 L Phosphorus Magnesium AST Total Creatine Kinase CK-MB (CK-2) C-Reactive Protein Total Protein Albumin Vitamin B12 Urine Appearance Urine Protein Urine Bilirubin Urine Bacteria Hyaline Casts Urine Yeast (Budding) U Tricyclic Antidepress U Benzodiazepines Scrn 12/05/16 12/05/16 12/06/16 15:35 18:08 00:04 RBC Hgb Hct Plt Count Lymphocytes # (Manual) Monocytes # (Manual) ESR APTT D-Dimer ABG pH ABG pO2 ABG HCO3 ABG O2 Saturation Sodium Potassium Chloride Carbon Dioxide BUN Creatinine Glucose POC Glucose (mg/dL) 201 H 162 H 211 H Plasma Lactic Acid Britton Calcium Phosphorus Magnesium AST Total Creatine Kinase CK-MB (CK-2) C-Reactive Protein Total Protein Albumin Vitamin B12 Urine Appearance Urine Protein Urine Bilirubin Urine Bacteria Hyaline Casts Urine Yeast (Budding) U Tricyclic Antidepress U Benzodiazepines Scrn 12/06/16 12/06/16 12/06/16 04:25 05:29 05:29 RBC 3.53 L Hgb 11.0 L Hct Plt Count 128 L Lymphocytes # (Manual) 0.4 L Monocytes # (Manual) ESR APTT 64.1 H D-Dimer ABG pH ABG pO2 ABG HCO3 ABG O2 Saturation Sodium 135 L Potassium 3.2 L Chloride 108 H Carbon Dioxide 16 L BUN 53 H Creatinine 1.80 H Glucose 193 H POC Glucose (mg/dL) Plasma Lactic Acid Britton Calcium 7.2 L Phosphorus Magnesium 2.4 H AST Total Creatine Kinase CK-MB (CK-2) C-Reactive Protein Total Protein Albumin Vitamin B12 Urine Appearance Urine Protein Urine Bilirubin Urine Bacteria Hyaline Casts Urine Yeast (Budding) U Tricyclic Antidepress U Benzodiazepines Scrn 12/06/16 12/06/16 12/06/16 06:22 11:20 13:49 RBC Hgb Hct Plt Count Lymphocytes # (Manual) Monocytes # (Manual) ESR APTT D-Dimer ABG pH 7.32 L ABG pO2 ABG HCO3 18 L ABG O2 Saturation Sodium Potassium Chloride Carbon Dioxide BUN Creatinine Glucose POC Glucose (mg/dL) 194 H 179 H Plasma Lactic Acid Britton Calcium Phosphorus Magnesium AST Total Creatine Kinase CK-MB (CK-2) C-Reactive Protein Total Protein Albumin Vitamin B12 Urine Appearance Urine Protein Urine Bilirubin Urine Bacteria Hyaline Casts Urine Yeast (Budding) U Tricyclic Antidepress U Benzodiazepines Scrn 12/06/16 12/06/16 12/06/16 14:55 14:55 18:05 RBC Hgb Hct Plt Count Lymphocytes # (Manual) Monocytes # (Manual) ESR 110 H APTT D-Dimer ABG pH ABG pO2 ABG HCO3 ABG O2 Saturation Sodium Potassium 3.3 L Chloride Carbon Dioxide BUN Creatinine Glucose POC Glucose (mg/dL) 188 H Plasma Lactic Acid Britton Calcium Phosphorus Magnesium AST Total Creatine Kinase CK-MB (CK-2) C-Reactive Protein 401.6 H Total Protein Albumin Vitamin B12 >1000 H Urine Appearance Urine Protein Urine Bilirubin Urine Bacteria Hyaline Casts Urine Yeast (Budding) U Tricyclic Antidepress U Benzodiazepines Scrn Assessment and Plan (1) Acute metabolic encephalopathy Status: Acute (2) Hypokalemia Status: Acute (3) Metabolic acidosis Status: Acute (4) Acute kidney injury Status: Acute (5) Anaphylactic reaction Status: Acute (6) Cellulitis Status: Acute (7) Slurred speech Status: Acute (8) CAD (coronary artery disease) Status: Acute (9) Schizo affective schizophrenia Status: Acute Plan: Patient"s current status is multifactorial in etiology due to multiple conditions: Acute metabolic encephalopathy, schizoaffective/schizophrenia, acute kidney injury,Metabolic acidosis, hypokalemia. Further complicating patient's current condition is the fact that providers have very limited information as to the patient's normal functional baseline level and level of communicative ability and cognitive function. Patient's kidney status complicates the ability to obtain imaging with contrast. Patient's schizophrenia /schizoaffective disorder also complicates the ability to obtain imaging as the patient has difficulty maintaining her lack of movement to facilitate imaging. On exam, the patient's will respond to verbal stimuli when physically prompted. Musculoskeletal exam was equal bilaterally although weak in both the upper and lower extremities, patient would verbally respond to pain and withdraw. Patient would also intermittently answer providers questions during physical exam. Given the patient's complicated medical status, we will not reimage the brain at this time. Staff has been instructed to notify neurology with any neurological decline. If the patient should decline, stat imaging will be obtained and neurology contacted Immediately. We will order an EEG at this time. Other laboratory blood work has been requested to further investigate the patient's symptoms including vitamin A, E, K, JANAK antibody, Vitamin D. Continue to correct the known underlying correctable etiologies. Continue neuro checks as previously ordered. Status: Neurology will continue to follow and provide updates as needed or warranted I discussed the patient's pertinent medical information with Dr. Del Angel. He agrees with the plan of care as implemented.
[2016-12-07 00:12] LABS: Glucose,Whole Blood 205 mg/dL (75-99)
[2016-12-07] MEDS: INSULIN LISPRO (humaLOG) 300 UNIT/3 ML VIAL SQ SCH ×4 (01:08→17:31)
[2016-12-07] MEDS: HEPARIN SODIUM,PORCINE/D5W PMX 25,000 UNIT in DEXTROSE/WATER 1 500ML.BAG IV SCH ×2 (01:09→17:45)
[2016-12-07] MEDS: methylPREDNISolone SOD SUCCI 125 MG/2 ML VIAL IV SCH ×4 (01:09→17:28)
[2016-12-07] MEDS: POTASSIUM CHLORIDE 10 MEQ, LIDOCAINE 2% INJ 10 MG in SODIUM CHLORIDE 0.9% 100 ML IV SCH ×3 (03:35→23:28)
[2016-12-07] MEDS ORDERED: DEXTROSE 5% IN WATER 1,000 ML with SODIUM BICARB (1 MEQ/ML) 150 ML IV SCH (03:45)
[2016-12-07 06:23] LABS: Glucose,Whole Blood 172 mg/dL (75-99)
[2016-12-07 06:56] LABS: CH 31.6; CHCM 32.4; HCT 31.5 % (34.0-46.0); HDW 2.58; HGB 10.5 gm/dL (11.4-16.0); Immature Gran Flag Marked; MCH 32.5 pg (25.0-35.0); MCHC 33.3 g/dL (31.0-37.0); MCV 97.9 fL (80.0-100.0); Mean Platelet Volume 8.4; RBC 3.22 m/uL (3.80-5.40); RDW 13.3 % (11.5-15.5); WBC 10.9 k/uL (3.8-10.6); WBC (Perox) 11.07
[2016-12-07 07:08] LABS: Add Differential Manual Differential
[2016-12-07] MEDS: BUDESONIDE 0.5 MG/2 ML NEBU INHALATION SCH ×2 (07:12→19:38)
[2016-12-07] MEDS: ALBUTEROL NEBULIZED 2.5 MG/3 ML INHALATION PRN ×2 (07:12→11:16)
[2016-12-07 07:15] LABS: Band Neutrophils % 16.5 %; Manual Review Performed; Myelocytes % 0.5 %; Nucleated Red Blood Cells 0 /100 WBC (0-0); Total Cells Counted 200
--- NOTE | 2016-12-07 07:26 | PN ---
DATE OF SERVICE: 12/06/16 PRESENTING COMPLAINT: Short of breath. INTERVAL HISTORY: This is a patient who is resident of a custodial with multiple issues. Admitted with acute allergic reaction that has responded well to antihistaminics. Also had exacerbation of asthma. The patient remains on high flow BIPAP. Also, the patient has been on renal failure. The patient currently in the ICU. ( ). The patient really does not give much of history ( ) respond. Review of systems really cannot be done. Current medications are reviewed that include IV Ceftaroline, bicarbonate drip. IV heparin. On examination, temperature 97.6, pulse 77. Respirations 22. Blood pressure 102/64. Pulse ox 97% on BIPAP. General appearing lying in bed, lethargic but arousal. Eyes: Pupils equal, conjunctivae normal. Neck JVD unable to assess. Mass not palpable. Respiratory effort increased. Lungs decreased breath sounds. Cardiovascular: First and second sounds normal. No edema. Abdomen soft, nontender. Liver and spleen not palpable. Psychiatric: Lethargic, does follow commands. Investigations: White count 16. Hemoglobin 11. Platelets 128. Potassium 3.2. BUN 53, creatinine 1.80. ASSESSMENT: 1. Acute allergic reaction could be from an insect bite, exact cause unknown. Responded well, present on admission. 2. Acute exacerbation intermittent asthma causing acute hypoxic respiratory failure currently on BIPAP. 3. Coronary artery disease with nonobstructive 50% LAD lesion from a prior cardiac catheterization. 4. Gastroesophageal reflux disease. 5. Essential hypertension, history of currently hypotensive. 6. Hyperlipidemia. 7. Metabolic encephalopathy, multifactorial. 8. Hyponatremia suspect hyposmolar. 9. Schizoaffective disorder, chronic. 10. Anxiety disorder, not otherwise specified. 11. Peripheral neuropathy, cause unknown. 12. Acute renal failure, non-oliguric probably acute tubular necrosis, slow to respond. 13. CODE STATUS: FULL. PLAN: Continue current medication and treatment plan, supportive care. The patient being followed by multiple specialities, prognosis guarded. Follow in the ICU. KRYSTYNA
[2016-12-07 07:33] LABS: Calcium 7.4 mg/dL (8.4-10.2); Magnesium 2.3 mg/dL (1.6-2.3); Potassium 3.3 mmol/L (3.5-5.1)
[2016-12-07 08:39] LABS: Glucose,Whole Blood 148 mg/dL (75-99)
[2016-12-07] MEDS: PANTOPRAZOLE 40 MG TABLET PO SCH (08:41)
[2016-12-07] MEDS: GABAPENTIN 300 MG CAP PO SCH ×2 (08:41→21:29)
[2016-12-07] MEDS: ASPIRIN 81 MG CHEW PO SCH (08:41)
[2016-12-07] MEDS: FAMOTIDINE 20 MG/2 ML VIAL IV SCH (08:42)
[2016-12-07] MEDS: CITALOPRAM HYDROBROMIDE 20 MG TAB PO SCH (08:42)
[2016-12-07] MEDS: SENNOSIDES 8.6 MG TAB PO SCH ×2 (08:43→21:31)
[2016-12-07] MEDS: CEFTAROLINE FOSAMIL 300 MG in SODIUM CHLORIDE 0.9% 250 ML IVPB SCH (08:44)
[2016-12-07] MEDS: LORATADINE 10 MG TAB PO SCH (08:44)
--- NOTE | 2016-12-07 10:30 | P.PN ---
Subjective 12/06/16- This is a 61-year-old female who came into emergency department with shortness of breath and generalized weakness that had been developing over the last 3-4 days. Apparently the patient was stung by a bee in her left axilla, the area became extremely itchy with a diffuse reddened rash. The patient states she also shaved her left axilla in the cellulitis developed. The patient became unresponsive and received an EpiPen injection as well as Benadryl with EMS. This patient lives at a long term. In the emergency room the patient was noted to have a d-dimer of 5.28 so she was also started on heparin drip, which is currently therapeutic. She was also noted to the septic with a lactic acid of 2.5. Urine drug screen was completed and was positive for tricyclic antidepressants and benzodiazepines. She she was admitted to the medical floor and was also given a dose of Ativan. The patient became somnolent with oxygen saturations 49%. Subsequently she was transferred to the ICU. The patient has since been on BiPAP and her oxygen saturations have improved. However throughout the night the patient was hypotensive but maintained her urine output therefore she was given IV boluses which was effective in bringing up her blood pressure. Patient is also on Solu-Medrol, antibiotics and IV Benadryl. Patient is also noted to be acidotic tenderness on IV fluids of D5W with 3 A of bicarb at 50ml/hr. Wound culture of the left axilla has been taken and is presumptive staph aureus. Upon examination the patient's resting in bed on BiPAP she continues to be somewhat somnolent however responds to voice commands slowly. BiPAP settings IPAP of 12 EPAP of 5 FiO2 35% oxygen saturations 98%. Patient also has a history of being mentally challenged and slurs her speech as a baseline due to a deficit of a previous CVA /TIA. 12/08/15- upon examination today the patient's resting up in bed on 3 L of supplemental oxygen. Patient is alert and oriented 1. Patient is less lethargic today than yesterday. Liver the patient still becomes short of breath with exertion or extensive conversation. States labs were reviewed and her white count is now to 10.9, sodium 140 potassium 3.3 chloride 111 carbon dioxide 22 BUN 45 creatinine 1.3. Patient should have a VQ scan once okayed by nephrology. Objective - Vital Signs Vital signs: Vital Signs Temp 98.7 F 12/07/16 04:00 Pulse 88 12/07/16 07:32 Resp 13 12/07/16 07:00 BP 123/58 12/07/16 07:00 Pulse Ox 94 L 12/07/16 07:15 Intake & Output 12/06/16 12/07/16 12/07/16 18:59 06:59 18:59 Intake Total 915 1520.000 255 Output Total 1265 879 101 Balance -350 641.000 154 Weight 116.7 kg Intake: IV 915 1020 255 0.9 NACL 90 120 30 Dextrose 5% in Water 1, 825 900 225 000 ml @ 75 mls/hr IV . [id number] ONE with Sodium Bicarb (1 Meq/ml) 150 ml Rx#:[id number] Intake, IV Titration 500.000 Amount Heparin Sodium,Porcine/ 500.000 D5w Pmx 25,000 unit In Dextrose/Water 1 500ml. bag @ 18 UNITS/KG/HR 36. 25 mls/hr IV .[id number] [facility] Rx#:[id number] Output: Urine 1265 879 101 Other: Voiding Method Indwelling Catheter Indwelling Catheter - Exam GENERAL EXAM: Less somnolent today, comfortable in no apparent distress. HEAD: Normocephalic. EYES: Normal reaction of pupils, equal size. Dry eyes NOSE: Clear with pink turbinates. THROAT: No erythema or exudates. NECK: No masses, no JVD. CHEST: No chest wall deformity. LUNGS: Equal air entry with no crackles, wheeze, rhonchi or dullness. Diminished CVS: S1 and S2 normal with no audible mumurs, regular rhythm. ABDOMEN: No hepatosplenomegaly, normal bowel sounds, no guarding or rigidity. EXTREMITIES: No edema noted, pedal pulses palpable. SKIN: Left axilla noted to have an definite indurated area of erythema the area is firm and hot. The small less than 1 cm pustule is noted in the middle of the axilla currently no drainage is seen. However previously the area was draining yesterday. CENTRAL NERVOUS SYSTEM: No focal deficits, tone is normal in all 4 extremities. - Labs CBC & Chem 7: 12/07/16 06:43 12/07/16 06:43 Labs: Abnormal Lab Results - Last 24 Hours (Table) 12/06/16 12/06/16 12/06/16 Range/Units 11:20 13:49 14:55 WBC (3.8-10.6) k/uL RBC (3.80-5.40) m/uL Hgb (11.4-16.0) gm/dL Hct (34.0-46.0) % Neutrophils # (Manual) (1.3-7.7) k/uL Lymphocytes # (Manual) (1.0-4.8) k/uL ESR (0-20) mm/hr ABG pH 7.32 L (7.35-7.45) ABG HCO3 18 L (21-25) mmol/L Potassium 3.3 L (3.5-5.1) mmol/L Chloride (98-107) mmol/L BUN (7-17) mg/dL Creatinine (0.52-1.04) mg/dL Glucose (74-99) mg/dL POC Glucose (mg/dL) 179 H (75-99) mg/dL Calcium (8.4-10.2) mg/dL C-Reactive Protein 401.6 H (<10.0) mg/L Vitamin B12 >1000 H (239-931) pg/mL 12/06/16 12/06/16 12/07/16 Range/Units 14:55 18:05 00:10 WBC (3.8-10.6) k/uL RBC (3.80-5.40) m/uL Hgb (11.4-16.0) gm/dL Hct (34.0-46.0) % Neutrophils # (Manual) (1.3-7.7) k/uL Lymphocytes # (Manual) (1.0-4.8) k/uL ESR 110 H (0-20) mm/hr ABG pH (7.35-7.45) ABG HCO3 (21-25) mmol/L Potassium (3.5-5.1) mmol/L Chloride (98-107) mmol/L BUN (7-17) mg/dL Creatinine (0.52-1.04) mg/dL Glucose (74-99) mg/dL POC Glucose (mg/dL) 188 H 205 H (75-99) mg/dL Calcium (8.4-10.2) mg/dL C-Reactive Protein (<10.0) mg/L Vitamin B12 (239-931) pg/mL 12/07/16 12/07/16 12/07/16 Range/Units 00:17 06:21 06:43 WBC 10.9 H (3.8-10.6) k/uL RBC 3.22 L (3.80-5.40) m/uL Hgb 10.5 L (11.4-16.0) gm/dL Hct 31.5 L (34.0-46.0) % Neutrophils # (Manual) 10.3 H (1.3-7.7) k/uL Lymphocytes # (Manual) 0.4 L (1.0-4.8) k/uL ESR (0-20) mm/hr ABG pH (7.35-7.45) ABG HCO3 (21-25) mmol/L Potassium 3.1 L (3.5-5.1) mmol/L Chloride (98-107) mmol/L BUN (7-17) mg/dL Creatinine (0.52-1.04) mg/dL Glucose (74-99) mg/dL POC Glucose (mg/dL) 172 H (75-99) mg/dL Calcium (8.4-10.2) mg/dL C-Reactive Protein (<10.0) mg/L Vitamin B12 (239-931) pg/mL 12/07/16 12/07/16 Range/Units 06:43 08:36 WBC (3.8-10.6) k/uL RBC (3.80-5.40) m/uL Hgb (11.4-16.0) gm/dL Hct (34.0-46.0) % Neutrophils # (Manual) (1.3-7.7) k/uL Lymphocytes # (Manual) (1.0-4.8) k/uL ESR (0-20) mm/hr ABG pH (7.35-7.45) ABG HCO3 (21-25) mmol/L Potassium 3.3 L (3.5-5.1) mmol/L Chloride 111 H (98-107) mmol/L BUN 45 H (7-17) mg/dL Creatinine 1.30 H (0.52-1.04) mg/dL Glucose 155 H (74-99) mg/dL POC Glucose (mg/dL) 148 H (75-99) mg/dL Calcium 7.4 L (8.4-10.2) mg/dL C-Reactive Protein (<10.0) mg/L Vitamin B12 (239-931) pg/mL Microbiology - Last 24 Hours (Table) 12/04/16 19:36 Blood Culture - Preliminary Blood No Growth after 48 hours 12/04/16 21:30 Gram Stain - Final Axilla - Left Wound Culture - Final Staphylococcus aureus Assessment and Plan Plan: Assessment Anaphylaxis reaction Metabolic acidosis and elevated d-dimer due to severe sepsis, related to staph wound infection and acute renal failure Acute hypoxic respiratory failure, can not exclude PE at this time. Hypotension Left abscess of the axilla Cellulitis of the left axilla Schizoaffective disorder Anxiety Hypokalemic Morbid obesity Plan Medications have been reviewed and will be continued as ordered. Patient should have a VQ scan once okayed by nephrology. We will continue to monitor her blood pressures closely as well as urine output. Currently the patient is hemodynamically stable. Patient is still somewhat somnolent, however does respond to voice commands. Continue with IV antibiotics, IV Benadryl and steroids. Replace electrolytes and monitor per protocol. Continue heparin, may do CTA when renal function improves. Continue with pulmonary hygiene, coughing and deep breathing exercises, and supportive care. Supplemental oxygen or BiPAP to maintain oxygen saturations of 92% or better. Continue nebulizer treatments. GI and DVT prophylaxis. Continue with Neuro, ID, and nephro consults and appreciate recommendations. We will continue to monitor labs/results and adjust treatment as necessary. Further recommendations pending. I performed an examination of the patient and discussed their management with the nurse practitioner. I have reviewed the nurse practitioner's note and agree with the documented findings and plan of care.
--- NOTE | 2016-12-07 11:34 | P.PN ---
Subjective Patient is seen in follow-up for acute kidney injury. Her baseline creatinine is 1 and was elevated at 3.4 on admission. It is down to 1.3 today. She is nonoliguric. Patient presented with left axillary cellulitis and a questionable insect sting. She was also hypotensive on admission and did receive IV fluids. She is currently maintained on isotonic sodium bicarbonate drip. Hemodynamically she stable. Patient is still quite confused and is not a reliable historian. Vital signs are stable. General: The patient appeared well nourished and normally developed. HEENT: Head exam is unremarkable. Neck is without jugular venous distension. LUNGS: Scattered rhonchi. Breath sounds decreased. HEART: Rate and Rhythm are regular. First and second heart sounds normal. No murmurs, rubs or gallops. ABDOMEN: Abdominal exam reveals normal bowel sounds. Non-tender and non- distended. No evidence of peritonitis. EXTREMITITES: No clubbing, cyanosis, or edema. Objective - Vital Signs Vital signs: Vital Signs Temp 98.7 F 12/07/16 04:00 Pulse 94 12/07/16 11:27 Resp 13 12/07/16 07:00 BP 123/58 12/07/16 07:00 Pulse Ox 94 L 12/07/16 07:15 Intake & Output 12/06/16 12/07/16 12/07/16 18:59 06:59 18:59 Intake Total 915 1520.000 255 Output Total 1265 879 101 Balance -350 641.000 154 Weight 116.7 kg Intake: IV 915 1020 255 0.9 NACL 90 120 30 Dextrose 5% in Water 1, 825 900 225 000 ml @ 75 mls/hr IV . [id number] ONE with Sodium Bicarb (1 Meq/ml) 150 ml Rx#:[id number] Intake, IV Titration 500.000 Amount Heparin Sodium,Porcine/ 500.000 D5w Pmx 25,000 unit In Dextrose/Water 1 500ml. bag @ 18 UNITS/KG/HR 36. 25 mls/hr IV .[id number] [facility] Rx#:[id number] Output: Urine 1265 879 101 Other: Voiding Method Indwelling Catheter Indwelling Catheter - Labs CBC & Chem 7: 12/07/16 06:43 12/07/16 06:43 Labs: Abnormal Lab Results - Last 24 Hours (Table) 12/06/16 12/06/16 12/06/16 Range/Units 11:20 13:49 14:55 WBC (3.8-10.6) k/uL RBC (3.80-5.40) m/uL Hgb (11.4-16.0) gm/dL Hct (34.0-46.0) % Neutrophils # (Manual) (1.3-7.7) k/uL Lymphocytes # (Manual) (1.0-4.8) k/uL ESR (0-20) mm/hr ABG pH 7.32 L (7.35-7.45) ABG HCO3 18 L (21-25) mmol/L Potassium 3.3 L (3.5-5.1) mmol/L Chloride (98-107) mmol/L BUN (7-17) mg/dL Creatinine (0.52-1.04) mg/dL Glucose (74-99) mg/dL POC Glucose (mg/dL) 179 H (75-99) mg/dL Calcium (8.4-10.2) mg/dL C-Reactive Protein 401.6 H (<10.0) mg/L Vitamin B12 >1000 H (239-931) pg/mL 12/06/16 12/06/16 12/07/16 Range/Units 14:55 18:05 00:10 WBC (3.8-10.6) k/uL RBC (3.80-5.40) m/uL Hgb (11.4-16.0) gm/dL Hct (34.0-46.0) % Neutrophils # (Manual) (1.3-7.7) k/uL Lymphocytes # (Manual) (1.0-4.8) k/uL ESR 110 H (0-20) mm/hr ABG pH (7.35-7.45) ABG HCO3 (21-25) mmol/L Potassium (3.5-5.1) mmol/L Chloride (98-107) mmol/L BUN (7-17) mg/dL Creatinine (0.52-1.04) mg/dL Glucose (74-99) mg/dL POC Glucose (mg/dL) 188 H 205 H (75-99) mg/dL Calcium (8.4-10.2) mg/dL C-Reactive Protein (<10.0) mg/L Vitamin B12 (239-931) pg/mL 12/07/16 12/07/16 12/07/16 Range/Units 00:17 06:21 06:43 WBC 10.9 H (3.8-10.6) k/uL RBC 3.22 L (3.80-5.40) m/uL Hgb 10.5 L (11.4-16.0) gm/dL Hct 31.5 L (34.0-46.0) % Neutrophils # (Manual) 10.3 H (1.3-7.7) k/uL Lymphocytes # (Manual) 0.4 L (1.0-4.8) k/uL ESR (0-20) mm/hr ABG pH (7.35-7.45) ABG HCO3 (21-25) mmol/L Potassium 3.1 L (3.5-5.1) mmol/L Chloride (98-107) mmol/L BUN (7-17) mg/dL Creatinine (0.52-1.04) mg/dL Glucose (74-99) mg/dL POC Glucose (mg/dL) 172 H (75-99) mg/dL Calcium (8.4-10.2) mg/dL C-Reactive Protein (<10.0) mg/L Vitamin B12 (239-931) pg/mL 12/07/16 12/07/16 Range/Units 06:43 08:36 WBC (3.8-10.6) k/uL RBC (3.80-5.40) m/uL Hgb (11.4-16.0) gm/dL Hct (34.0-46.0) % Neutrophils # (Manual) (1.3-7.7) k/uL Lymphocytes # (Manual) (1.0-4.8) k/uL ESR (0-20) mm/hr ABG pH (7.35-7.45) ABG HCO3 (21-25) mmol/L Potassium 3.3 L (3.5-5.1) mmol/L Chloride 111 H (98-107) mmol/L BUN 45 H (7-17) mg/dL Creatinine 1.30 H (0.52-1.04) mg/dL Glucose 155 H (74-99) mg/dL POC Glucose (mg/dL) 148 H (75-99) mg/dL Calcium 7.4 L (8.4-10.2) mg/dL C-Reactive Protein (<10.0) mg/L Vitamin B12 (239-931) pg/mL Microbiology - Last 24 Hours (Table) 12/04/16 19:36 Blood Culture - Preliminary Blood No Growth after 48 hours 12/04/16 21:30 Gram Stain - Final Axilla - Left Wound Culture - Final Staphylococcus aureus Assessment and Plan Plan: Assessment: #1. Nonoliguric acute kidney injury mostly prerenal secondary to hypotension. Improving. Creatinine was 3.4 on admission and is down to 1.3 today. #2. Hypotension possibly related to anaphylactic reaction. Improved. #3. Metabolic acidosis secondary to acute kidney injury. Improving. #4. Hypovolemic hyponatremia. Improved with IV hydration. #5. Hypokalemia from renal potassium wasting with recovering renal function. Magnesium replete. #6. Left axillary cellulitis with questionable insect sting. Plan: I will change IV fluids 0.9% at 50 mL an hour. Replace potassium. Avoid nephrotoxic agents and hypotensive episodes. Encourage oral intake as tolerated. Repeat electrolytes in the morning. Antibiotics per infectious disease recommendations. Cleared for VQ scan from nephrology standpoint.
--- NOTE | 2016-12-07 11:44 | ECHOF ---
Referral Reason:elevated d dimer MEASUREMENTS -------- HEIGHT: 165.1 cm WEIGHT: 109.8 kg BP: 122/69 IVSd: 0.9 cm (0.6 - 1.1) LVIDd: 4.1 cm (3.9 - 5.3) LVPWd: 1.2 cm (0.6 - 1.1) IVSs: 1.0 cm LVIDs: 3.3 cm LVPWs: 1.3 cm Ao Diam: 3.0 cm (2.0 - 3.7) LA Diam: 3.3 cm (2.7 - 3.8) MV E Ike: 0.89 m/s MV DecT: 163 ms MV A Ike: 0.77 m/s MV E/A Ratio: 1.15 RAP: 5.00 mmHg RVSP: 16.30 mmHg FINDINGS -------- Sinus rhythm. This was a techncally difficult study with suboptimal views, , Definity utilized for enhancement of images. The left ventricular size is normal. There is mild concentric left ventricular hypertrophy. Overall left ventricular systolic function is normal with, an EF between 55 - 60 %. The right ventricle is normal in size. The left atrial size is normal. The right atrial size is normal. 1.5MG OF DEFINITY UTLIZED: 2 OR MORE WALL SEGMENTS NOT VISUALIZED. The aortic valve was not well visualized. The mitral valve was not well visualized. Mild mitral regurgitation is present. Mild tricuspid regurgitation present. There is no evidence of pulmonary hypertension. The right ventricular systolic pressure, as measured by Doppler, is 16.30mmHg. The pulmonic valve was not well visualized. The aortic root size is normal. There is no pericardial effusion. CONCLUSIONS -------- 1. Sinus rhythm. 2. Mild tricuspid regurgitation present. 3. There is no evidence of pulmonary hypertension. 4. The pulmonic valve was not well visualized. 5. The aortic root size is normal. 6. There is no pericardial effusion. 7. This was a techncally difficult study with suboptimal views, , Definity utilized for enhancement of images. 8. There is mild concentric left ventricular hypertrophy. 9. Overall left ventricular systolic function is normal with, an EF between 55 - 60 %. 10. The left atrial size is normal. 11. 1.5MG OF DEFINITY UTLIZED: 2 OR MORE WALL SEGMENTS NOT VISUALIZED. 12. The aortic valve was not well visualized. 13. The mitral valve was not well visualized. 14. Mild mitral regurgitation is present. STROBOSCOPE OPERATOR: Monserrat Lindsey RDCS
[2016-12-07] MEDS ORDERED: SODIUM CHLORIDE 0.9% 1,000 ML IV SCH (12:00)
[2016-12-07] MEDS: SODIUM CHLORIDE 0.9% 1,000 ML IV SCH ×2 (13:57→23:29)
[2016-12-07] MEDS: VIT A,C & E-LUTEIN-MINERALS 1 EACH TAB PO SCH (13:57)
[2016-12-07] MEDS: CHOLECALCIFEROL 1,000 UNIT TAB PO SCH (13:58)
[2016-12-07 14:10] LABS: Glucose,Whole Blood 191 mg/dL (75-99)
[2016-12-07] MEDS ORDERED: Potassium Replacement Protocol 1 EACH MISC MISCELLANE PRN (14:13)
[2016-12-07] MEDS: POTASSIUM CHLORIDE ER 20 MEQ TAB.ER PO SCH ×3 (14:27→17:28)
[2016-12-07] MEDS: METOPROLOL TARTRATE 25 MG TAB PO SCH ×2 (16:01→21:29)
--- NOTE | 2016-12-07 16:42 | P.PN ---
Subjective Principal diagnosis: Acute ALLERGIC reaction Ms. Corey is a 61-year-old patient of visiting physicians Dr. Muro. Patient is resident of a halfway called [facility]. Patient's chronic stable medical conditions include coronary artery disease with a 50% LAD lesion, GERD, hypertension, hyperlipidemia, schizoaffective disorder, anxiety, peripheral neuropathy and macular degeneration. Patient apparently for 3 days had noticed swelling and redness of the left arm not sure if something can better and presented to ER. Patient was found to be hypotensive with extensive rash and patient is given IV Solu-Medrol IV Benadryl and Pepcid and admitted to the medical floor. Patient became hypotensive and hypoxic was transferred to the intensive care unit with a consultation to critical care and infectious disease. Patient got a definite induration and redness in the left axillary area. Patient does confirm that she does use a razor in the left armpit. Patient was acidotic and was put on a bicarbonate drip patient also found to be in acute renal failure. Review of systems - patient is lethargic, she is being fed by the nurse now. She states that she is feeling very weak and tired. She denies having any chest pain or cough. No complaints of any abdominal pain nausea vomiting or diarrhea. She has difficulty in breathing at baseline and she is on 3 L of supplemental oxygen entry. Objective - Vital Signs Vital signs: Vital Signs Temp 98.7 F 12/07/16 04:00 Pulse 94 12/07/16 13:00 Resp 16 12/07/16 13:00 BP 142/69 12/07/16 13:00 Pulse Ox 93 L 12/07/16 13:00 Intake & Output 12/06/16 12/07/16 12/07/16 18:59 06:59 18:59 Intake Total 915 1520.000 545 Output Total 1265 879 296 Balance -350 641.000 249 Weight 116.7 kg Intake: IV 915 1020 545 0.9 NACL 90 120 70 Dextrose 5% in Water 1, 825 900 375 000 ml @ 75 mls/hr IV . [id number] ONE with Sodium Bicarb (1 Meq/ml) 150 ml Rx#:[id number] Sodium Chloride 0.9% 1, 100 000 ml @ 100 mls/hr IV . Q10H [facility] Rx#:[id number] Intake, IV Titration 500.000 Amount Heparin Sodium,Porcine/ 500.000 D5w Pmx 25,000 unit In Dextrose/Water 1 500ml. bag @ 18 UNITS/KG/HR 36. 25 mls/hr IV .[id number] [facility] Rx#:[id number] Output: Urine 1265 879 296 Other: Voiding Method Indwelling Catheter Indwelling Catheter Indwelling Catheter # Voids 0 - Exam ENERAL EXAM: Less somnolent today, comfortable in no apparent distress. HEAD: Normocephalic. EYES: Normal reaction of pupils, equal size. Dry eyes NECK: No masses, no JVD. LUNGS: Equal air entry with no crackles, wheeze, rhonchi or dullness. Diminished CVS: S1 and S2 normal with no audible mumurs, regular rhythm. ABDOMEN: No hepatosplenomegaly, normal bowel sounds, no guarding or rigidity. EXTREMITIES: No edema noted, pedal pulses palpable. SKIN: Left axilla noted to have an induration that is firm and hot. A small pustule is noted in the middle of the axilla currently no drainage is seen. CENTRAL NERVOUS SYSTEM: No focal deficits, tone is normal in all 4 extremities. - Labs CBC & Chem 7: 12/07/16 06:43 12/07/16 12:07 Labs: Abnormal Lab Results - Last 24 Hours (Table) 12/06/16 12/06/16 12/06/16 Range/Units 14:55 14:55 18:05 WBC (3.8-10.6) k/uL RBC (3.80-5.40) m/uL Hgb (11.4-16.0) gm/dL Hct (34.0-46.0) % Neutrophils # (Manual) (1.3-7.7) k/uL Lymphocytes # (Manual) (1.0-4.8) k/uL ESR 110 H (0-20) mm/hr Potassium (3.5-5.1) mmol/L Chloride (98-107) mmol/L BUN (7-17) mg/dL Creatinine (0.52-1.04) mg/dL Glucose (74-99) mg/dL POC Glucose (mg/dL) 188 H (75-99) mg/dL Calcium (8.4-10.2) mg/dL C-Reactive Protein 401.6 H (<10.0) mg/L Vitamin B12 >1000 H (239-931) pg/mL 12/07/16 12/07/16 12/07/16 Range/Units 00:10 00:17 06:21 WBC (3.8-10.6) k/uL RBC (3.80-5.40) m/uL Hgb (11.4-16.0) gm/dL Hct (34.0-46.0) % Neutrophils # (Manual) (1.3-7.7) k/uL Lymphocytes # (Manual) (1.0-4.8) k/uL ESR (0-20) mm/hr Potassium 3.1 L (3.5-5.1) mmol/L Chloride (98-107) mmol/L BUN (7-17) mg/dL Creatinine (0.52-1.04) mg/dL Glucose (74-99) mg/dL POC Glucose (mg/dL) 205 H 172 H (75-99) mg/dL Calcium (8.4-10.2) mg/dL C-Reactive Protein (<10.0) mg/L Vitamin B12 (239-931) pg/mL 12/07/16 12/07/16 12/07/16 Range/Units 06:43 06:43 08:36 WBC 10.9 H (3.8-10.6) k/uL RBC 3.22 L (3.80-5.40) m/uL Hgb 10.5 L (11.4-16.0) gm/dL Hct 31.5 L (34.0-46.0) % Neutrophils # (Manual) 10.3 H (1.3-7.7) k/uL Lymphocytes # (Manual) 0.4 L (1.0-4.8) k/uL ESR (0-20) mm/hr Potassium 3.3 L (3.5-5.1) mmol/L Chloride 111 H (98-107) mmol/L BUN 45 H (7-17) mg/dL Creatinine 1.30 H (0.52-1.04) mg/dL Glucose 155 H (74-99) mg/dL POC Glucose (mg/dL) 148 H (75-99) mg/dL Calcium 7.4 L (8.4-10.2) mg/dL C-Reactive Protein (<10.0) mg/L Vitamin B12 (239-931) pg/mL 12/07/16 12/07/16 Range/Units 12:07 14:08 WBC (3.8-10.6) k/uL RBC (3.80-5.40) m/uL Hgb (11.4-16.0) gm/dL Hct (34.0-46.0) % Neutrophils # (Manual) (1.3-7.7) k/uL Lymphocytes # (Manual) (1.0-4.8) k/uL ESR (0-20) mm/hr Potassium 3.1 L (3.5-5.1) mmol/L Chloride (98-107) mmol/L BUN (7-17) mg/dL Creatinine (0.52-1.04) mg/dL Glucose (74-99) mg/dL POC Glucose (mg/dL) 191 H (75-99) mg/dL Calcium (8.4-10.2) mg/dL C-Reactive Protein (<10.0) mg/L Vitamin B12 (239-931) pg/mL Microbiology - Last 24 Hours (Table) 12/04/16 19:36 Blood Culture - Preliminary Blood No Growth after 48 hours 12/04/16 21:30 Gram Stain - Final Axilla - Left Wound Culture - Final Staphylococcus aureus Assessment and Plan Plan: Assessment - Acute ALLERGIC reaction could be from an insect bite exact cause unknown responded well - Left axillary cellulitis -Acute exacerbation of intermittent asthma causing acute hypoxic respiratory failure -Coronary artery disease with nonobstructive 50% LAD lesion -GERD -Essential hypertension -Hyperlipidemia -Metabolic acidosis -Hyponatremia - hypovolemic hyponatremia -Schizoaffective disorder, chronic -Anxiety disorder and otherwise specified -Peripheral neuropathy cause unknown -Acute metabolic encephalopathy multifactorial -Acute renal failure, nonoliguric probably ATN DUE TO HYPOTENSION CODE STATUS full code PLAN Will continue the patient on ceftaroline as the cultures from the left axilla are growing staph aureus. As the patient has acute hypoxic respiratory failure and PE could not be excluded she is still continued on heparin drip. Nephrology did give an okay for the VQ scan today which will be done. Continue with steroids, breathing treatments, incentive spirometry. We'll continue with the rest of her medication regimen. Overall prognosis is guarded.
[2016-12-07] MEDS ORDERED: RX INFO: IV CONTRAST WAS GIVEN 1 EACH MISC MISCELLANE PRN (17:02)
[2016-12-07 17:32] LABS: Glucose,Whole Blood 154 mg/dL (75-99)
--- NOTE | 2016-12-07 17:38 | CT ---
EXAMINATION TYPE: CT angio chest DATE OF EXAM: 12/07/2016 5:26 PM COMPARISON: 07/26/2016 HISTORY: Difficulty breathing CT DLP: 834.80 mGycm Automated exposure control for dose reduction was used. CONTRAST: CTA scan of the thorax is performed with IV Contrast, patient injected with 100 mL of Omnipaque 350, pulmonary embolism protocol. There are 3-D post processed images.. FINDINGS: There is patchy infiltrate and atelectasis in both lower lobes and more on the left side. There are s mall bilateral pleural effusions. Heart is enlarged. There is no pericardial effusion. There is no ev idence of aortic aneurysm or dissection. There are large central pulmonary arteries consistent with pulmonary hypertension. I see no filling d efects in the pulmonary arteries. Exam is limited by patient size. IMPRESSION: NO EVIDENCE OF PULMONARY EMBOLISM. INTERSTITIAL PULMONARY INFILTRATES WITH SOME ATELECTASIS AT THE GWENDOLYN NG BASES AND SMALL PLEURAL EFFUSIONS. THIS IS PROBABLY CONGESTIVE HEART FAILURE. THIS APPEARS NEW COM PARED TO OLD EXAM. CARDIOMEGALY.
--- NOTE | 2016-12-07 18:36 | PN ---
Mrs. Corey is ( ) LAD with some COPD, probably sleep apnea syndrome. She is in the ICU. Elevated D. Dimer but she is on heparin. She is known to have non-critical CAD and normal LV function by echo. Vital signs are stable. S1, S2 heard normally but distant. Lungs revealed improved air entry. Abdomen and lower extremity exam is unremarkable. I am recommending that she can go ahead with hydration and proceed with CT angiography to rule out pulmonary embolism and continue heparin for the time being. I spoke to Dr. Mantilla who is in agreement with this approach. KRYSTYNA
--- NOTE | 2016-12-07 19:24 | P.PN ---
Subjective Principal diagnosis: Generalized weakness 61-year-old female is underlying history of schizophrenia and is cared for in a assisted environment has been ill for approximately 3 days. It is noted by the current available evidence. She does have a caregiver that help with the information admission. She is having difficulties with her left axillary area with some drainage. Then it was noted that she suffered what was thought to be a bee sting on to the left arm area. Developed extensive rash and hives and some shortness of breath. She was treated with Benadryl as well as epinephrine and Solu-Medrol. She is brought to the intensive care unit. She 'was hypotensive and was having difficulty with her speech. Speech however is at its baseline abnormal. She recovered from the hives. Continues to have cellulitis of the left axillary area The patient does respond to simple questions. Seems to be more comfortable today. Denied new symptoms. Objective - Vital Signs Vital signs: Vital Signs Temp 98.4 F 12/07/16 17:00 Pulse 82 12/07/16 18:00 Resp 15 12/07/16 18:00 BP 129/64 12/07/16 18:00 Pulse Ox 94 L 12/07/16 18:00 Intake & Output 12/07/16 12/07/16 12/08/16 06:59 18:59 06:59 Intake Total 8085.335 5790 Output Total 879 526 Balance 641.000 719 Weight 116.7 kg Intake: IV 1020 745 0.9 NACL 120 270 Dextrose 5% in Water 1, 900 375 000 ml @ 75 mls/hr IV . [id number] ONE with Sodium Bicarb (1 Meq/ml) 150 ml Rx#:[id number] Sodium Chloride 0.9% 1, 100 000 ml @ 100 mls/hr IV . Q10H STA Rx#:[id number] Intake, IV Titration 500.000 500 Amount Heparin Sodium,Porcine/ 500.000 500 D5w Pmx 25,000 unit In Dextrose/Water 1 500ml. bag @ 18 UNITS/KG/HR 36. 25 mls/hr IV .[id number] AMADA Rx#:[id number] Output: Urine 879 526 Other: Voiding Method Indwelling Catheter Indwelling Catheter # Voids 0 - Exam 61-year-old woman who appears older than her stated age. Occasionally open eyes to the exam. Occasional responses are noted. HEENT: Anicteric conjunctiva are pink and moist nasal mucosa grossly intact without significant lesions, there is no thrush. Oral mucosa is dry Neck: The neck is supple without significant lymphadenopathy or thyromegaly. Lungs: Good bilateral air entry without significant crackles or wheezing. There is no significant bronchial sounds. There is no egophony or dullness. Heart: Regular rate and rhythm with an audible S1-S2, no S3 no S4. There is no significant murmur click or rub, PMI was nondisplaced. Abdomen: Positive bowel sounds soft and nontender without palpable masses or organomegaly. There was no guarding or rebound. Extremities: The upper extremities have excellent pulses they are symmetric, no significant petechiae or telangiectasia. No splinter hemorrhages were noted. The left axillary area is evidence of the distinct pattern of erythema as well as a pustule at the midpoint of the axilla. There is no further purulent drainage at this time. The lower extremities are free from significant lesions the peripheral pulses were 2+ and symmetric. Neuro: Arousable did have some interaction to some simple questions. In general withdrawn. - Labs CBC & Chem 7: 12/07/16 06:43 12/07/16 12:07 Labs: Abnormal Lab Results - Last 24 Hours (Table) 12/07/16 12/07/16 12/07/16 Range/Units 00:10 00:17 06:21 WBC (3.8-10.6) k/uL RBC (3.80-5.40) m/uL Hgb (11.4-16.0) gm/dL Hct (34.0-46.0) % Neutrophils # (Manual) (1.3-7.7) k/uL Lymphocytes # (Manual) (1.0-4.8) k/uL Potassium 3.1 L (3.5-5.1) mmol/L Chloride (98-107) mmol/L BUN (7-17) mg/dL Creatinine (0.52-1.04) mg/dL Glucose (74-99) mg/dL POC Glucose (mg/dL) 205 H 172 H (75-99) mg/dL Calcium (8.4-10.2) mg/dL 12/07/16 12/07/16 12/07/16 Range/Units 06:43 06:43 08:36 WBC 10.9 H (3.8-10.6) k/uL RBC 3.22 L (3.80-5.40) m/uL Hgb 10.5 L (11.4-16.0) gm/dL Hct 31.5 L (34.0-46.0) % Neutrophils # (Manual) 10.3 H (1.3-7.7) k/uL Lymphocytes # (Manual) 0.4 L (1.0-4.8) k/uL Potassium 3.3 L (3.5-5.1) mmol/L Chloride 111 H (98-107) mmol/L BUN 45 H (7-17) mg/dL Creatinine 1.30 H (0.52-1.04) mg/dL Glucose 155 H (74-99) mg/dL POC Glucose (mg/dL) 148 H (75-99) mg/dL Calcium 7.4 L (8.4-10.2) mg/dL 12/07/16 12/07/16 12/07/16 Range/Units 12:07 14:08 17:31 WBC (3.8-10.6) k/uL RBC (3.80-5.40) m/uL Hgb (11.4-16.0) gm/dL Hct (34.0-46.0) % Neutrophils # (Manual) (1.3-7.7) k/uL Lymphocytes # (Manual) (1.0-4.8) k/uL Potassium 3.1 L (3.5-5.1) mmol/L Chloride (98-107) mmol/L BUN (7-17) mg/dL Creatinine (0.52-1.04) mg/dL Glucose (74-99) mg/dL POC Glucose (mg/dL) 191 H 154 H (75-99) mg/dL Calcium (8.4-10.2) mg/dL Microbiology - Last 24 Hours (Table) 12/04/16 19:36 Blood Culture - Preliminary Blood No Growth after 48 hours 12/04/16 21:30 Gram Stain - Final Axilla - Left Wound Culture - Final Staphylococcus aureus Laboratory Results WBC 10.9 k/uL (3.8-10.6) H 12/07/16 06:43 RBC 3.22 m/uL (3.80-5.40) L 12/07/16 06:43 Hgb 10.5 gm/dL (11.4-16.0) L 12/07/16 06:43 Hct 31.5 % (34.0-46.0) L 12/07/16 06:43 MCV 97.9 fL (80.0-100.0) 12/07/16 06:43 MCH 32.5 pg (25.0-35.0) 12/07/16 06:43 MCHC 33.3 g/dL (31.0-37.0) 12/07/16 06:43 RDW 13.3 % (11.5-15.5) 12/07/16 06:43 Plt Count 187 k/uL (150-450) 12/07/16 06:43 Neutrophils % (Manual) 78.0 % 12/07/16 06:43 Band Neutrophils % 16.5 % 12/07/16 06:43 Lymphocytes % (Manual) 4.0 % 12/07/16 06:43 Monocytes % (Manual) 1.0 % 12/07/16 06:43 Eosinophils % (Manual) 0.5 % 12/06/16 04:25 Metamyelocytes % 1.0 % 12/06/16 04:25 Myelocytes % 0.5 % 12/07/16 06:43 Neutrophils # (Manual) 10.3 k/uL (1.3-7.7) H 12/07/16 06:43 Lymphocytes # (Manual) 0.4 k/uL (1.0-4.8) L 12/07/16 06:43 Monocytes # (Manual) 0.1 k/uL (0-1.0) 12/07/16 06:43 Eosinophils # (Manual) 0.0 k/uL (0-0.7) 12/06/16 04:25 Nucleated RBCs 0 /100 WBC (0-0) 12/07/16 06:43 Manual Slide Review Performed 12/07/16 06:43 Toxic Vacuolation Present 12/06/16 04:25 Polychromasia Present 12/06/16 04:25 Poikilocytosis (manual Present 12/06/16 04:25 Anisocytosis (manual) Present 12/06/16 04:25 Crenated Cell Present 12/06/16 04:25 ESR 110 mm/hr (0-20) H 12/06/16 14:55 PT 10.6 sec (9.0-12.0) 12/04/16 19:36 INR 1.0 (<1.2) 12/04/16 19:36 APTT 64.1 sec (22.0-30.0) H 12/06/16 05:29 D-Dimer 5.28 mg/L FEU (<0.60) H 12/04/16 19:36 Sample Site rrad 12/06/16 11:20 ABG pH 7.32 (7.35-7.45) L 12/06/16 11:20 ABG pCO2 36 mmHg (35-45) 12/06/16 11:20 ABG pO2 102 mmHg (83-108) 12/06/16 11:20 ABG HCO3 18 mmol/L (21-25) L 12/06/16 11:20 ABG Total CO2 19 mmol/L (19-24) 12/06/16 11:20 ABG O2 Saturation 97.0 % (94-97) 12/06/16 11:20 ABG Base Excess -6.7 mmol/L 12/06/16 11:20 ABG Hematocrit 34 % (34.0-46.0) 12/05/16 11:45 FiO2 35 % 12/06/16 11:20 Sodium 140 mmol/L (137-145) 12/07/16 06:43 Potassium 3.1 mmol/L (3.5-5.1) L 12/07/16 12:07 Chloride 111 mmol/L (98-107) H 12/07/16 06:43 Carbon Dioxide 22 mmol/L (22-30) 12/07/16 06:43 Anion Gap 7 mmol/L 12/07/16 06:43 BUN 45 mg/dL (7-17) H 12/07/16 06:43 Creatinine 1.30 mg/dL (0.52-1.04) H 12/07/16 06:43 Est GFR (MDRD) Af Amer 51 (>60 ml/min/1.73 sqM) 12/07/16 06:43 Est GFR (MDRD) Non-Af 42 (>60 ml/min/1.73 sqM) 12/07/16 06:43 Glucose 155 mg/dL (74-99) H 12/07/16 06:43 POC Glucose (mg/dL) 154 mg/dL (75-99) H 12/07/16 17:31 POC Glu Credit Investigator ID Thalia Zhang 12/07/16 17:[address] Glu mg/dL 128 mg/dL 12/05/16 04:12 Hemoglobin A1c 6.1 % (4.2-6.1) 12/05/16 04:12 Lactic Ac Sepsis Rflx Y 12/04/16 20:23 Plasma Lactic Acid [place] 2.0 mmol/L (0.7-2.0) 12/05/16 00:02 Calcium 7.4 mg/dL (8.4-10.2) L 12/07/16 06:43 Phosphorus 3.0 mg/dL (2.5-4.5) 12/07/16 06:43 Magnesium 2.3 mg/dL (1.6-2.3) 12/07/16 06:43 Total Bilirubin 1.3 mg/dL (0.2-1.3) 12/04/16 19:36 AST 53 U/L (14-36) H 12/04/16 19:36 ALT 37 U/L (9-52) 12/04/16 19:36 Alkaline Phosphatase 69 U/L (38-126) 12/04/16 19:36 Total Creatine Kinase 504 U/L (30-135) H 12/05/16 07:24 CK-MB (CK-2) 7.8 ng/mL (0.0-2.4) H* 12/05/16 07:24 CK-MB (CK-2) Rel Index 1.5 12/05/16 07:24 Troponin I <0.012 ng/mL (0.000-0.034) 12/05/16 07:24 C-Reactive Protein 401.6 mg/L (<10.0) H 12/06/16 14:55 NT-Pro-B Natriuret Pep 8270 pg/mL 12/04/16 19:36 Total Protein 5.3 g/dL (6.3-8.2) L 12/04/16 19:36 Albumin 2.6 g/dL (3.5-5.0) L 12/04/16 19:36 Vitamin B12 >1000 pg/mL (239-931) H 12/06/16 14:55 Urine Color Dark Brown 12/04/16 20:18 Urine Appearance Cloudy (Clear) H 12/04/16 20:18 Urine pH 5.0 (5.0-8.0) 12/04/16 20:18 Ur Specific [place] 1.018 (1.001-1.035) 12/04/16 20:18 Urine Protein 1+ (Negative) H 12/04/16 20:18 Urine Glucose (UA) Negative (Negative) 12/04/16 20:18 Urine Ketones Negative (Negative) 12/04/16 20:18 Urine Blood Negative (Negative) 12/04/16 20:18 Urine Nitrite Negative (Negative) 12/04/16 20:18 Urine Bilirubin 1+ (Negative) H 12/04/16 20:18 Urine Urobilinogen 4.0 mg/dL (<2.0) 12/04/16 20:18 Ur Leukocyte Esterase Negative (Negative) 12/04/16 20:18 Urine RBC 1 /hpf (0-5) 12/04/16 20:18 Urine WBC 3 /hpf (0-5) 12/04/16 20:18 Urine Bacteria Rare /hpf (None) H 12/04/16 20:18 Hyaline Casts 4 /lpf (0-2) H 12/04/16 20:18 Urine Yeast (Budding) Few /hpf (None) H 12/04/16 20:18 Random Vancomycin 6.2 ug/mL 12/07/16 06:43 Urine Opiates Screen Not Detected (NotDetected) 12/04/16 20:18 Ur Oxycodone Screen Not Detected (NotDetected) 12/04/16 20:18 Urine Methadone Screen Not Detected (NotDetected) 12/04/16 20:18 Ur Propoxyphene Screen Not Detected (NotDetected) 12/04/16 20:18 Ur Barbiturates Screen Not Detected (NotDetected) 12/04/16 20:18 U Tricyclic Antidepress Detected (NotDetected) H 12/04/16 20:18 Ur Phencyclidine Scrn Not Detected (NotDetected) 12/04/16 20:18 Ur Amphetamines Screen Not Detected (NotDetected) 12/04/16 20:18 U Methamphetamines Scrn Not Detected (NotDetected) 12/04/16 20:18 U Benzodiazepines Scrn Detected (NotDetected) H 12/04/16 20:18 Urine Cocaine Screen Not Detected (NotDetected) 12/04/16 20:18 U Marijuana (THC) Screen Not Detected (NotDetected) 12/04/16 20:18 Microbiology 12/04/16 19:36 Blood Blood Culture - Preliminary No Growth after 48 hours 12/04/16 21:30 Axilla - Left Gram Stain - Final 12/04/16 21:30 Axilla - Left Wound Culture - Final Staphylococcus aureus 12/04/16 20:18 Urine,Catheterized Urine Culture - Final Assessment and Plan (1) Anaphylactic reaction Status: Acute (2) Abscess of axilla, left Narrative/Plan: 61-year-old female [facility] with some increasing weakness. Admission without evidence of sepsis apparently in the base of the significant cellulitis and abscess to her left axillary area. She hasn't had the significant hives and swelling responded well to intervention with Benadryl , epinephrine and steroids. She apparently is improved from her admission. The extensive acidosis was noted and is being corrected. Antibiotic therapy was initiated with vancomycin and ampicillin sulbactam. Given her acute renal failure we'll avoid further doses of vancomycin in utilize Ceftaroline was to give coverage for MRSA as well as staph and strep which we, pathogens of the axillary area. Continue ongoing supportive care. Dry dressing for the drainage. Cultures in process. The patient is now improved. Cultures have come back as MSSA. Ceftaroline is transitioned to Ancef 2 g IVPB back every 8 hours given her marked improved renal failure. Her acidosis is generally resolved. Overall she is improving. With the improved renal function CT angiogram is been requested to ensure she did not have a pulmonary embolus. With negative blood cultures though he no plan for outpatient intravenous antibiotic therapy. Status: Acute
[2016-12-07] MEDS ORDERED: ceFAZolin 2 GM in SODIUM CHLORIDE 0.9% 100 ML IVPB SCH (19:30)
[2016-12-07] MEDS ORDERED: CEFTAROLINE FOSAMIL 400 MG in SODIUM CHLORIDE 0.9% 250 ML IVPB SCH (21:00)
[2016-12-07] MEDS: QUEtiapine 400 MG TAB PO SCH (21:29)
[2016-12-07] MEDS: ATORVASTATIN 10 MG TAB PO SCH (21:29)
--- NOTE | 2016-12-07 22:07 | P.PN ---
Subjective Principal diagnosis: Altered mental status Patient is a 61-year-old female being followed by neurology with a history of schizophrenia and resides in an assisted-living/intermediate. Prior to presentation at the ED she had been feeling ill for approximately 3 days. Patient was bit by a bee in the left axillary area and developed synovitis. She is treated with Benadryl as well as epinephrine and Solu-Medrol. She is an brought to the intensive care unit. Patient was hypotensive and was having difficulty with her speech. Speech however is at baseline but is abnormally normal. Patient recovered from the reaction but continues to have cellulitis. Patient does respond to simple questions and will follow simple verbal commands. She does appear to be more comfortable and resting easily compared to yesterday. Patient is alert and oriented to place and name. Patient is currently resting in no acute distress. Patient was on room air at time of rounding. Objective - Vital Signs Vital signs: Vital Signs Temp 98.0 F 12/07/16 20:00 Pulse 91 12/07/16 21:00 Resp 21 12/07/16 21:00 BP 129/67 12/07/16 21:00 Pulse Ox 91 L 12/07/16 21:00 Intake & Output 12/07/16 12/07/16 12/08/16 06:59 18:59 06:59 Intake Total 5056.941 5958 300 Output Total 879 576 170 Balance 641.000 769 130 Weight 116.7 kg Intake: IV 1020 845 300 0.9 NACL 120 370 300 Dextrose 5% in Water 1, 900 375 000 ml @ 75 mls/hr IV . [id number] ONE with Sodium Bicarb (1 Meq/ml) 150 ml Rx#:[id number] Sodium Chloride 0.9% 1, 100 000 ml @ 100 mls/hr IV . Q10H STA Rx#:[id number] Intake, IV Titration 500.000 500 Amount Heparin Sodium,Porcine/ 500.000 500 D5w Pmx 25,000 unit In Dextrose/Water 1 500ml. bag @ 18 UNITS/KG/HR 36. 25 mls/hr IV .[id number] AMADA Rx#:[id number] Output: Urine 879 576 170 Other: Voiding Method Indwelling Catheter Indwelling Catheter Indwelling Catheter # Voids 0 - Exam Constitutional: AOx2, cooperative HEENT: NC/AT, no facial asymmetry is seen. Throat: Supple, no masses Respiratory: Patient transitioned from BiPAP to room air are present. Patient is in no acute distress Cardiac: Regular rate and Rhythm GI: non tender, non distended Musculoskeletal: [place] strengths are equal bilaterally 3/5, Lower extremity strengths are equal bilaterally at 3/5. Neurological: CN II-XII in tact, patient was AOx2, speech and language are Slurredl, no unilateralizing weakness, no seizure activity note on physical exam. Sensation was normal. Integementary: no rash, no erythema Psychiatric: mood and affect appropriate - Labs CBC & Chem 7: 12/07/16 06:43 12/07/16 19:31 Labs: Abnormal Lab Results - Last 24 Hours (Table) 12/07/16 12/07/16 12/07/16 Range/Units 00:10 00:17 06:21 WBC (3.8-10.6) k/uL RBC (3.80-5.40) m/uL Hgb (11.4-16.0) gm/dL Hct (34.0-46.0) % Neutrophils # (Manual) (1.3-7.7) k/uL Lymphocytes # (Manual) (1.0-4.8) k/uL Potassium 3.1 L (3.5-5.1) mmol/L Chloride (98-107) mmol/L BUN (7-17) mg/dL Creatinine (0.52-1.04) mg/dL Glucose (74-99) mg/dL POC Glucose (mg/dL) 205 H 172 H (75-99) mg/dL Calcium (8.4-10.2) mg/dL 12/07/16 12/07/16 12/07/16 Range/Units 06:43 06:43 08:36 WBC 10.9 H (3.8-10.6) k/uL RBC 3.22 L (3.80-5.40) m/uL Hgb 10.5 L (11.4-16.0) gm/dL Hct 31.5 L (34.0-46.0) % Neutrophils # (Manual) 10.3 H (1.3-7.7) k/uL Lymphocytes # (Manual) 0.4 L (1.0-4.8) k/uL Potassium 3.3 L (3.5-5.1) mmol/L Chloride 111 H (98-107) mmol/L BUN 45 H (7-17) mg/dL Creatinine 1.30 H (0.52-1.04) mg/dL Glucose 155 H (74-99) mg/dL POC Glucose (mg/dL) 148 H (75-99) mg/dL Calcium 7.4 L (8.4-10.2) mg/dL 12/07/16 12/07/16 12/07/16 Range/Units 12:07 14:08 17:31 WBC (3.8-10.6) k/uL RBC (3.80-5.40) m/uL Hgb (11.4-16.0) gm/dL Hct (34.0-46.0) % Neutrophils # (Manual) (1.3-7.7) k/uL Lymphocytes # (Manual) (1.0-4.8) k/uL Potassium 3.1 L (3.5-5.1) mmol/L Chloride (98-107) mmol/L BUN (7-17) mg/dL Creatinine (0.52-1.04) mg/dL Glucose (74-99) mg/dL POC Glucose (mg/dL) 191 H 154 H (75-99) mg/dL Calcium (8.4-10.2) mg/dL Microbiology - Last 24 Hours (Table) 12/04/16 19:36 Blood Culture - Preliminary Blood No Growth after 72 hours 12/04/16 21:30 Gram Stain - Final Axilla - Left Wound Culture - Final Staphylococcus aureus Assessment and Plan (1) Acute metabolic encephalopathy Status: Acute (2) Hypokalemia Status: Acute (3) Metabolic acidosis Status: Acute (4) Acute kidney injury Status: Acute (5) Anaphylactic reaction Status: Acute (6) Cellulitis Status: Acute (7) Slurred speech Status: Acute (8) CAD (coronary artery disease) Status: Acute (9) Schizo affective schizophrenia Status: Acute Plan: Patient"s current status is multifactorial in etiology due to multiple conditions: Acute metabolic encephalopathy, schizoaffective/schizophrenia, acute kidney injury,Metabolic acidosis, hypokalemia. Further complicating patient's current condition is the fact that providers have very limited information as to the patient's normal functional baseline level and level of communicative ability and cognitive function. Patient's kidney status complicates the ability to obtain imaging with contrast. Patient's schizophrenia /schizoaffective disorder also complicates the ability to obtain imaging as the patient has difficulty maintaining her lack of movement to facilitate imaging. On exam, the patient's will respond to verbal stimuli when physically prompted. Musculoskeletal exam was equal bilaterally although weak in both the upper and lower extremities, patient would verbally respond to pain and withdraw. Patient would also intermittently answer providers questions during physical exam. Patient does appear to be improving since yesterday. She is less agitated , resting more comfortably and is somewhat more verbally responsive. Continue to correct the known underlying correctable etiologies. Continue neuro checks as previously ordered. Status: Neurology will continue to follow On an as-needed basis. I discussed the patient's pertinent medical information with Dr. Del Angel. He agrees with the plan of care as implemented.
[2016-12-08 00:13] LABS: Glucose,Whole Blood 139 mg/dL (75-99)
[2016-12-08] MEDS: INSULIN LISPRO (humaLOG) 300 UNIT/3 ML VIAL SQ SCH ×5 (01:23→20:46)
[2016-12-08] MEDS: POTASSIUM CHLORIDE 10 MEQ, LIDOCAINE 2% INJ 10 MG in SODIUM CHLORIDE 0.9% 100 ML IV SCH (01:24)
[2016-12-08] MEDS: methylPREDNISolone SOD SUCCI 125 MG/2 ML VIAL IV SCH ×5 (01:26→23:31)
[2016-12-08] MEDS: ceFAZolin 2 GM in SODIUM CHLORIDE 0.9% 100 ML IVPB SCH ×4 (02:41→23:31)
[2016-12-08 05:59] LABS: Glucose,Whole Blood 137 mg/dL (75-99)
[2016-12-08 06:16] LABS: Basophils # (A) 0.1 k/uL (0-0.2); Basophils % (A) 0 %; CH 31.4; CHCM 32.1; Eosinophils % (A) 0 %; HCT 32.3 % (34.0-46.0); HDW 2.62; HGB 10.4 gm/dL (11.4-16.0); Immature Gran Flag Marked; Luc # (Auto) 0.09; Luc % (Auto) 1; Lymphocytes # (A) 0.3 k/uL (1.0-4.8); Lymphocytes % (A) 3 %; MCH 31.6 pg (25.0-35.0); MCHC 32.1 g/dL (31.0-37.0); MCV 98.6 fL (80.0-100.0); Mean Platelet Volume 8.6; Monocytes # (A) 0.3 k/uL (0-1.0); Monocytes % (A) 3 %; Neutrophils % (A) 93 %; RBC 3.28 m/uL (3.80-5.40); RDW 13.6 % (11.5-15.5); WBC 10.7 k/uL (3.8-10.6); WBC (Perox) 11.08
[2016-12-08 06:27] LABS: Magnesium 2.3 mg/dL (1.6-2.3); Potassium 4.4 mmol/L (3.5-5.1); Total Bilirubin 0.5 mg/dL (0.2-1.3); Total Protein 4.6 g/dL (6.3-8.2)
[2016-12-08] MEDS: ALBUTEROL NEBULIZED 2.5 MG/3 ML INHALATION PRN ×4 (07:41→20:24)
[2016-12-08] MEDS: BUDESONIDE 0.5 MG/2 ML NEBU INHALATION SCH ×2 (07:41→20:24)
[2016-12-08 08:37] LABS: Glucose,Whole Blood 125 mg/dL (75-99)
[2016-12-08] MEDS: PANTOPRAZOLE 40 MG TABLET PO SCH (10:06)
[2016-12-08 10:20] LABS: Manual Review Performed
[2016-12-08] MEDS: FAMOTIDINE 20 MG/2 ML VIAL IV SCH (10:22)
[2016-12-08] MEDS: ASPIRIN 81 MG CHEW PO SCH (10:22)
[2016-12-08] MEDS: METOPROLOL TARTRATE 25 MG TAB PO SCH ×3 (10:22→20:46)
[2016-12-08] MEDS: LORATADINE 10 MG TAB PO SCH (10:23)
[2016-12-08] MEDS: GABAPENTIN 300 MG CAP PO SCH ×2 (10:23→20:46)
[2016-12-08] MEDS: SENNOSIDES 8.6 MG TAB PO SCH ×2 (10:23→20:46)
[2016-12-08] MEDS: CITALOPRAM HYDROBROMIDE 20 MG TAB PO SCH (10:23)
--- NOTE | 2016-12-08 11:42 | P.PN ---
Subjective 12/06/16- This is a 61-year-old female who came into emergency department with shortness of breath and generalized weakness that had been developing over the last 3-4 days. Apparently the patient was stung by a bee in her left axilla, the area became extremely itchy with a diffuse reddened rash. The patient states she also shaved her left axilla in the cellulitis developed. The patient became unresponsive and received an EpiPen injection as well as Benadryl with EMS. This patient lives at a [facility]. In the emergency room the patient was noted to have a d-dimer of 5.28 so she was also started on heparin drip, which is currently therapeutic. She was also noted to the septic with a lactic acid of 2.5. Urine drug screen was completed and was positive for tricyclic antidepressants and benzodiazepines. She she was admitted to the medical floor and was also given a dose of Ativan. The patient became somnolent with oxygen saturations 49%. Subsequently she was transferred to the ICU. The patient has since been on BiPAP and her oxygen saturations have improved. However throughout the night the patient was hypotensive but maintained her urine output therefore she was given IV boluses which was effective in bringing up her blood pressure. Patient is also on Solu-Medrol, antibiotics and IV Benadryl. Patient is also noted to be acidotic tenderness on IV fluids of D5W with 3 A of bicarb at 50ml/hr. Wound culture of the left axilla has been taken and is presumptive staph aureus. Upon examination the patient's resting in bed on BiPAP she continues to be somewhat somnolent however responds to voice commands slowly. BiPAP settings IPAP of 12 EPAP of 5 FiO2 35% oxygen saturations 98%. Patient also has a history of being mentally challenged and slurs her speech as a baseline due to a deficit of a previous CVA /TIA. 12/08/15- upon examination today the patient's resting up in bed on 3 L of supplemental oxygen. Patient is alert and oriented 1. Patient is less lethargic today than yesterday. Liver the patient still becomes short of breath with exertion or extensive conversation. States labs were reviewed and her white count is now to 10.9, sodium 140 potassium 3.3 chloride 111 carbon dioxide 22 BUN 45 creatinine 1.3. Patient should have a VQ scan once okayed by nephrology. 12/09/15- on examination today the patient is resting up in bed on 2 L of supplemental oxygen. The patient continues to be very sleepy and currently we are investigating her home medication and dosage of Seroquel that she receives at the [facility] she attends. Excessive sleepiness could be due to this medication and we will hold at this time. Neuro is also on consults. Patient did have her CT a of the chest yesterday which showed no evidence of pulmonary embolism, interstitial pulmonary infiltrates with some atelectasis at the lung bases and small pleural effusions were noted. It is suggested on the impression this could be due to congestive heart failure. Cardiology is also on consult. Patient's heparin drip could be stopped due to no pulmonary embolism. Patient continues to be short of breath with exertion. hemodynamically she is much better. Objective - Vital Signs Vital signs: Vital Signs Temp 98.2 F 12/08/16 08:00 Pulse 96 12/08/16 11:00 Resp 16 12/08/16 11:00 BP 156/74 12/08/16 11:00 Pulse Ox 92 L 12/08/16 11:00 Intake & Output 12/07/16 12/08/16 12/08/16 18:59 06:59 18:59 Intake Total 1345 1698.640 400 Output Total 576 571 170 Balance 769 1127.640 230 Weight 117.5 kg Intake: IV 845 1300 400 0.9 NACL 370 1300 400 Dextrose 5% in Water 1, 375 000 ml @ 75 mls/hr IV . [id number] ONE with Sodium Bicarb (1 Meq/ml) 150 ml Rx#:[id number] Sodium Chloride 0.9% 1, 100 000 ml @ 100 mls/hr IV . Q10H [facility] Rx#:[id number] Intake, IV Titration 500 398.640 Amount Heparin Sodium,Porcine/ 500 398.640 D5w Pmx 25,000 unit In Dextrose/Water 1 500ml. bag @ 18 UNITS/KG/HR 36. 25 mls/hr IV .[id number] [facility] Rx#:[id number] Output: Urine 576 571 170 Other: Voiding Method Indwelling Catheter Indwelling Catheter Indwelling Catheter # Voids 0 - Exam GENERAL EXAM: Continued somnolent today, comfortable in no apparent distress. HEAD: Normocephalic. EYES: Normal reaction of pupils, equal size. Dry eyes NOSE: Clear with pink turbinates. THROAT: No erythema or exudates. NECK: No masses, no JVD. CHEST: No chest wall deformity. LUNGS: Equal air entry with no crackles, wheeze, rhonchi or dullness. Diminished CVS: S1 and S2 normal with no audible mumurs, regular rhythm. ABDOMEN: No hepatosplenomegaly, normal bowel sounds, no guarding or rigidity. EXTREMITIES: No edema noted, pedal pulses palpable. SKIN: Left axilla noted to have an definite indurated area of erythema the area is firm and hot. The small less than 1 cm pustule is noted in the middle of the axilla currently no drainage is seen. However previously the area was draining. CENTRAL NERVOUS SYSTEM: No focal deficits, tone is normal in all 4 extremities. - Labs CBC & Chem 7: 12/08/16 05:52 12/08/16 05:52 Labs: Abnormal Lab Results - Last 24 Hours (Table) 12/07/16 12/07/16 12/07/16 Range/Units 12:07 14:08 17:31 WBC (3.8-10.6) k/uL RBC (3.80-5.40) m/uL Hgb (11.4-16.0) gm/dL Hct (34.0-46.0) % Neutrophils # (1.3-7.7) k/uL Lymphocytes # (1.0-4.8) k/uL APTT (22.0-30.0) sec Potassium 3.1 L (3.5-5.1) mmol/L Chloride (98-107) mmol/L Carbon Dioxide (22-30) mmol/L BUN (7-17) mg/dL Creatinine (0.52-1.04) mg/dL Glucose (74-99) mg/dL POC Glucose (mg/dL) 191 H 154 H (75-99) mg/dL Calcium (8.4-10.2) mg/dL Total Protein (6.3-8.2) g/dL Albumin (3.5-5.0) g/dL 12/08/16 12/08/16 12/08/16 Range/Units 00:12 05:52 05:52 WBC 10.7 H (3.8-10.6) k/uL RBC 3.28 L (3.80-5.40) m/uL Hgb 10.4 L (11.4-16.0) gm/dL Hct 32.3 L (34.0-46.0) % Neutrophils # 10.0 H (1.3-7.7) k/uL Lymphocytes # 0.3 L (1.0-4.8) k/uL APTT (22.0-30.0) sec Potassium (3.5-5.1) mmol/L Chloride 113 H (98-107) mmol/L Carbon Dioxide 20 L (22-30) mmol/L BUN 48 H (7-17) mg/dL Creatinine 1.20 H (0.52-1.04) mg/dL Glucose 130 H (74-99) mg/dL POC Glucose (mg/dL) 139 H (75-99) mg/dL Calcium 8.0 L (8.4-10.2) mg/dL Total Protein 4.6 L (6.3-8.2) g/dL Albumin 2.1 L (3.5-5.0) g/dL 12/08/16 12/08/16 12/08/16 Range/Units 05:52 05:57 08:36 WBC (3.8-10.6) k/uL RBC (3.80-5.40) m/uL Hgb (11.4-16.0) gm/dL Hct (34.0-46.0) % Neutrophils # (1.3-7.7) k/uL Lymphocytes # (1.0-4.8) k/uL APTT 34.1 H (22.0-30.0) sec Potassium (3.5-5.1) mmol/L Chloride (98-107) mmol/L Carbon Dioxide (22-30) mmol/L BUN (7-17) mg/dL Creatinine (0.52-1.04) mg/dL Glucose (74-99) mg/dL POC Glucose (mg/dL) 137 H 125 H (75-99) mg/dL Calcium (8.4-10.2) mg/dL Total Protein (6.3-8.2) g/dL Albumin (3.5-5.0) g/dL Microbiology - Last 24 Hours (Table) 12/04/16 19:36 Blood Culture - Preliminary Blood No Growth after 72 hours Assessment and Plan Plan: Assessment Anaphylaxis reaction Metabolic acidosis and elevated d-dimer due to severe sepsis, related to staph wound infection and acute renal failure Acute hypoxic respiratory failure, Hypotension Left abscess of the axilla Cellulitis of the left axilla Schizoaffective disorder Anxiety Hypokalemic Morbid obesity Plan Patient could be downgraded to the selective care unit. Medications have been reviewed and will be continued as ordered. CTA has been reviewed heparin will be discontinued. We will continue to monitor her blood pressures closely as well as urine output. Currently the patient is hemodynamically stable. Patient is still somewhat somnolent, however does respond to voice commands, we are currently investigating her home medications that she receives at the [facility]. Continue with IV antibiotics, Benadryl and steroids. Replace electrolytes and monitor per protocol. Cultures have come back as MSSA. Antibiotics had been adjusted by infectious disease. Continue with pulmonary hygiene, coughing and deep breathing exercises, and supportive care. Supplemental oxygen or BiPAP to maintain oxygen saturations of 92% or better. Continue nebulizer treatments. GI and DVT prophylaxis. Continue with Neuro, ID , and nephro consults and appreciate recommendations. We will continue to monitor labs/results and adjust treatment as necessary. Further recommendations pending. I performed an examination of the patient and discussed their management with the nurse practitioner. I have reviewed the nurse practitioner's note and agree with the documented findings and plan of care.
[2016-12-08] MEDS: CHOLECALCIFEROL 1,000 UNIT TAB PO SCH (13:17)
[2016-12-08] MEDS: VIT A,C & E-LUTEIN-MINERALS 1 EACH TAB PO SCH (13:18)
[2016-12-08] MEDS: CYANOCOBALAMIN 500 MCG TAB PO SCH (13:18)
--- NOTE | 2016-12-08 14:05 | P.PN ---
Subjective Patient is seen in follow-up for acute kidney injury. Her baseline creatinine is 1 and was elevated at 3.4 on admission. It is down to 1.2 today. She is nonoliguric. Patient presented with left axillary cellulitis and a questionable insect sting. She was also hypotensive on admission and did receive IV fluids. She is currently maintained on normal saline at 100 mL an hour. Hemodynamically she stable. Patient is still quite confused and is not a reliable historian. She is a little more awake today. Vital signs are stable. General: The patient appeared well nourished and normally developed. HEENT: Head exam is unremarkable. Neck is without jugular venous distension. LUNGS: Scattered rhonchi. Breath sounds decreased. HEART: Rate and Rhythm are regular. First and second heart sounds normal. No murmurs, rubs or gallops. ABDOMEN: Abdominal exam reveals normal bowel sounds. Non-tender and non- distended. No evidence of peritonitis. EXTREMITITES: No clubbing, cyanosis, or edema. Objective - Vital Signs Vital signs: Vital Signs Temp 97.5 F L 12/08/16 12:00 Pulse 91 12/08/16 13:00 Resp 19 12/08/16 13:00 BP 134/67 12/08/16 13:00 Pulse Ox 92 L 12/08/16 13:00 Intake & Output 12/07/16 12/08/16 12/08/16 18:59 06:59 18:59 Intake Total 1345 1698.640 600 Output Total 576 571 290 Balance 769 1127.640 310 Weight 117.5 kg Intake: IV 845 1300 600 0.9 NACL 370 1300 600 Dextrose 5% in Water 1, 375 000 ml @ 75 mls/hr IV . [id number] ONE with Sodium Bicarb (1 Meq/ml) 150 ml Rx#:[id number] Sodium Chloride 0.9% 1, 100 000 ml @ 100 mls/hr IV . Q10H [facility] Rx#:[id number] Intake, IV Titration 500 398.640 Amount Heparin Sodium,Porcine/ 500 398.640 D5w Pmx 25,000 unit In Dextrose/Water 1 500ml. bag @ 18 UNITS/KG/HR 36. 25 mls/hr IV .[id number] [facility] Rx#:[id number] Output: Urine 576 571 290 Other: Voiding Method Indwelling Catheter Indwelling Catheter Indwelling Catheter # Voids 0 0 - Labs CBC & Chem 7: 12/08/16 05:52 12/08/16 05:52 Labs: Abnormal Lab Results - Last 24 Hours (Table) 12/07/16 12/07/16 12/08/16 Range/Units 14:08 17:31 00:12 WBC (3.8-10.6) k/uL RBC (3.80-5.40) m/uL Hgb (11.4-16.0) gm/dL Hct (34.0-46.0) % Neutrophils # (1.3-7.7) k/uL Lymphocytes # (1.0-4.8) k/uL APTT (22.0-30.0) sec Chloride (98-107) mmol/L Carbon Dioxide (22-30) mmol/L BUN (7-17) mg/dL Creatinine (0.52-1.04) mg/dL Glucose (74-99) mg/dL POC Glucose (mg/dL) 191 H 154 H 139 H (75-99) mg/dL Calcium (8.4-10.2) mg/dL Total Protein (6.3-8.2) g/dL Albumin (3.5-5.0) g/dL 12/08/16 12/08/16 12/08/16 Range/Units 05:52 05:52 05:52 WBC 10.7 H (3.8-10.6) k/uL RBC 3.28 L (3.80-5.40) m/uL Hgb 10.4 L (11.4-16.0) gm/dL Hct 32.3 L (34.0-46.0) % Neutrophils # 10.0 H (1.3-7.7) k/uL Lymphocytes # 0.3 L (1.0-4.8) k/uL APTT 34.1 H (22.0-30.0) sec Chloride 113 H (98-107) mmol/L Carbon Dioxide 20 L (22-30) mmol/L BUN 48 H (7-17) mg/dL Creatinine 1.20 H (0.52-1.04) mg/dL Glucose 130 H (74-99) mg/dL POC Glucose (mg/dL) (75-99) mg/dL Calcium 8.0 L (8.4-10.2) mg/dL Total Protein 4.6 L (6.3-8.2) g/dL Albumin 2.1 L (3.5-5.0) g/dL 12/08/16 12/08/16 Range/Units 05:57 08:36 WBC (3.8-10.6) k/uL RBC (3.80-5.40) m/uL Hgb (11.4-16.0) gm/dL Hct (34.0-46.0) % Neutrophils # (1.3-7.7) k/uL Lymphocytes # (1.0-4.8) k/uL APTT (22.0-30.0) sec Chloride (98-107) mmol/L Carbon Dioxide (22-30) mmol/L BUN (7-17) mg/dL Creatinine (0.52-1.04) mg/dL Glucose (74-99) mg/dL POC Glucose (mg/dL) 137 H 125 H (75-99) mg/dL Calcium (8.4-10.2) mg/dL Total Protein (6.3-8.2) g/dL Albumin (3.5-5.0) g/dL Microbiology - Last 24 Hours (Table) 12/04/16 19:36 Blood Culture - Preliminary Blood No Growth after 72 hours Assessment and Plan Plan: Assessment: #1. Nonoliguric acute kidney injury mostly prerenal secondary to hypotension. Improving. Creatinine was 3.4 on admission and is down to 1.2 today. Monitor for contrast-induced nephropathy as she did receive IV dye on December 07. #2. Hypotension possibly related to anaphylactic reaction. Improved. #3. Metabolic acidosis secondary to acute kidney injury. Improving. #4. Hypovolemic hyponatremia. Improved with IV hydration. #5. Hypokalemia from renal potassium wasting with recovering renal function. Magnesium replete. #6. Left axillary cellulitis with questionable insect sting. Plan: Decreased rate of IV fluids to 50 mL an hour. Avoid nephrotoxic agents and hypotensive episodes. Encourage oral intake as tolerated. Repeat electrolytes in the morning. Antibiotics per infectious disease recommendations. Add oral sodium bicarbonate supplementation.
[2016-12-08] MEDS: HEPARIN SODIUM,PORCINE/D5W PMX 25,000 UNIT in DEXTROSE/WATER 1 500ML.BAG IV SCH (15:51)
[2016-12-08] MEDS: SODIUM CHLORIDE 0.9% 1,000 ML IV SCH (16:15)
[2016-12-08] MEDS: HEPARIN SODIUM,PORCINE 5,000 UNIT/ML 1 ML VIAL SQ SCH ×2 (16:15→23:32)
[2016-12-08 16:48] LABS: Glucose,Whole Blood 198 mg/dL (75-99)
[2016-12-08 18:21] LABS: Vitamin D, 1, 25-Dihydroxy 88 pg/mL (20 - 79)
[2016-12-08 20:43] LABS: Glucose,Whole Blood 139 mg/dL (75-99)
[2016-12-08] MEDS: SODIUM BICARBONATE TAB 650 MG TAB PO SCH (20:46)
[2016-12-08] MEDS: ATORVASTATIN 10 MG TAB PO SCH (20:46)
--- NOTE | 2016-12-08 22:03 | P.PN ---
Subjective Principal diagnosis: Generalized weakness 61-year-old female is underlying history of schizophrenia and is cared for in a assisted environment has been ill for approximately 3 days. It is noted by the current available evidence. She does have a caregiver that help with the information admission. She is having difficulties with her left axillary area with some drainage. Then it was noted that she suffered what was thought to be a bee sting on to the left arm area. Developed extensive rash and hives and some shortness of breath. She was treated with Benadryl as well as epinephrine and Solu-Medrol. She is brought to the intensive care unit. She 'was hypotensive and was having difficulty with her speech. Speech however is at its baseline abnormal. She recovered from the hives. Continues to have cellulitis of the left axillary area The patient does respond to simple questions. Seems to be more comfortable today. Denied new symptoms. Moving out of ICU today Objective - Vital Signs Vital signs: Vital Signs Temp 97.3 F L 12/08/16 20:00 Pulse 88 12/08/16 20:39 Resp 18 12/08/16 20:00 BP 144/73 12/08/16 20:00 Pulse Ox 98 12/08/16 20:00 Intake & Output 12/08/16 12/08/16 12/09/16 06:59 18:59 06:59 Intake Total 8695.087 6315 Output Total 571 985 Balance 1127.640 115 Weight 117.5 kg Intake: IV 1300 1100 0.9 NACL 1300 1100 Intake, IV Titration 398.640 Amount Heparin Sodium,Porcine/ 398.640 D5w Pmx 25,000 unit In Dextrose/Water 1 500ml. bag @ 18 UNITS/KG/HR 36. 25 mls/hr IV .[id number] [facility] Rx#:[id number] Output: Urine 571 985 Straight 600 Other: Voiding Method Indwelling Catheter Indwelling Catheter # Voids 0 - Exam 61-year-old woman who appears older than her stated age. Occasionally open eyes to the exam. Occasional responses are noted. HEENT: Anicteric conjunctiva are pink and moist nasal mucosa grossly intact without significant lesions, there is no thrush. Oral mucosa is dry Neck: The neck is supple without significant lymphadenopathy or thyromegaly. Lungs: Good bilateral air entry without significant crackles or wheezing. There is no significant bronchial sounds. There is no egophony or dullness. Heart: Regular rate and rhythm with an audible S1-S2, no S3 no S4. There is no significant murmur click or rub, PMI was nondisplaced. Abdomen: Positive bowel sounds soft and nontender without palpable masses or organomegaly. There was no guarding or rebound. Extremities: The upper extremities have excellent pulses they are symmetric, no significant petechiae or telangiectasia. No splinter hemorrhages were noted. The left axillary area is evidence of the distinct pattern of erythema as well as a pustule at the midpoint of the axilla. There is no further purulent drainage at this time. The lower extremities are free from significant lesions the peripheral pulses were 2+ and symmetric. Neuro: Arousable did have some interaction to some simple questions. In general withdrawn. - Labs CBC & Chem 7: 12/08/16 05:52 12/08/16 05:52 Labs: Abnormal Lab Results - Last 24 Hours (Table) 12/06/16 12/08/16 12/08/16 Range/Units 14:55 00:12 05:52 WBC 10.7 H (3.8-10.6) k/uL RBC 3.28 L (3.80-5.40) m/uL Hgb 10.4 L (11.4-16.0) gm/dL Hct 32.3 L (34.0-46.0) % Neutrophils # 10.0 H (1.3-7.7) k/uL Lymphocytes # 0.3 L (1.0-4.8) k/uL APTT (22.0-30.0) sec Chloride (98-107) mmol/L Carbon Dioxide (22-30) mmol/L BUN (7-17) mg/dL Creatinine (0.52-1.04) mg/dL Glucose (74-99) mg/dL POC Glucose (mg/dL) 139 H (75-99) mg/dL Calcium (8.4-10.2) mg/dL Total Protein (6.3-8.2) g/dL Albumin (3.5-5.0) g/dL Vit D 1,25-Dihydroxy 88 H (20 - 79) pg/mL 12/08/16 12/08/16 12/08/16 Range/Units 05:52 05:52 05:57 WBC (3.8-10.6) k/uL RBC (3.80-5.40) m/uL Hgb (11.4-16.0) gm/dL Hct (34.0-46.0) % Neutrophils # (1.3-7.7) k/uL Lymphocytes # (1.0-4.8) k/uL APTT 34.1 H (22.0-30.0) sec Chloride 113 H (98-107) mmol/L Carbon Dioxide 20 L (22-30) mmol/L BUN 48 H (7-17) mg/dL Creatinine 1.20 H (0.52-1.04) mg/dL Glucose 130 H (74-99) mg/dL POC Glucose (mg/dL) 137 H (75-99) mg/dL Calcium 8.0 L (8.4-10.2) mg/dL Total Protein 4.6 L (6.3-8.2) g/dL Albumin 2.1 L (3.5-5.0) g/dL Vit D 1,25-Dihydroxy (20 - 79) pg/mL 12/08/16 12/08/16 12/08/16 Range/Units 08:36 16:45 20:41 WBC (3.8-10.6) k/uL RBC (3.80-5.40) m/uL Hgb (11.4-16.0) gm/dL Hct (34.0-46.0) % Neutrophils # (1.3-7.7) k/uL Lymphocytes # (1.0-4.8) k/uL APTT (22.0-30.0) sec Chloride (98-107) mmol/L Carbon Dioxide (22-30) mmol/L BUN (7-17) mg/dL Creatinine (0.52-1.04) mg/dL Glucose (74-99) mg/dL POC Glucose (mg/dL) 125 H 198 H 139 H (75-99) mg/dL Calcium (8.4-10.2) mg/dL Total Protein (6.3-8.2) g/dL Albumin (3.5-5.0) g/dL Vit D 1,25-Dihydroxy (20 - 79) pg/mL Microbiology - Last 24 Hours (Table) 12/04/16 19:36 Blood Culture - Preliminary Blood No Growth after 96 hours Laboratory Results WBC 10.7 k/uL (3.8-10.6) H 12/08/16 05:52 RBC 3.28 m/uL (3.80-5.40) L 12/08/16 05:52 Hgb 10.4 gm/dL (11.4-16.0) L 12/08/16 05:52 Hct 32.3 % (34.0-46.0) L 12/08/16 05:52 MCV 98.6 fL (80.0-100.0) 12/08/16 05:52 MCH 31.6 pg (25.0-35.0) 12/08/16 05:52 MCHC 32.1 g/dL (31.0-37.0) 12/08/16 05:52 RDW 13.6 % (11.5-15.5) 12/08/16 05:52 Plt Count 221 k/uL (150-450) 12/08/16 05:52 Neutrophils % 93 % 12/08/16 05:52 Neutrophils % (Manual) 78.0 % 12/07/16 06:43 Band Neutrophils % 16.5 % 12/07/16 06:43 Lymphocytes % 3 % 12/08/16 05:52 Lymphocytes % (Manual) 4.0 % 12/07/16 06:43 Monocytes % 3 % 12/08/16 05:52 Monocytes % (Manual) 1.0 % 12/07/16 06:43 Eosinophils % 0 % 12/08/16 05:52 Eosinophils % (Manual) 0.5 % 12/06/16 04:25 Basophils % 0 % 12/08/16 05:52 Metamyelocytes % 1.0 % 12/06/16 04:25 Myelocytes % 0.5 % 12/07/16 06:43 Neutrophils # 10.0 k/uL (1.3-7.7) H 12/08/16 05:52 Neutrophils # (Manual) 10.3 k/uL (1.3-7.7) H 12/07/16 06:43 Lymphocytes # 0.3 k/uL (1.0-4.8) L 12/08/16 05:52 Lymphocytes # (Manual) 0.4 k/uL (1.0-4.8) L 12/07/16 06:43 Monocytes # 0.3 k/uL (0-1.0) 12/08/16 05:52 Monocytes # (Manual) 0.1 k/uL (0-1.0) 12/07/16 06:43 Eosinophils # 0.0 k/uL (0-0.7) 12/08/16 05:52 Eosinophils # (Manual) 0.0 k/uL (0-0.7) 12/06/16 04:25 Basophils # 0.1 k/uL (0-0.2) 12/08/16 05:52 Nucleated RBCs 0 /100 WBC (0-0) 12/07/16 06:43 Manual Slide Review Performed 12/08/16 05:52 Toxic Vacuolation Present 12/06/16 04:25 Polychromasia Present 12/06/16 04:25 Poikilocytosis (manual Present 12/08/16 05:52 Anisocytosis (manual) Present 12/06/16 04:25 Crenated Cell Present 12/06/16 04:25 ESR 110 mm/hr (0-20) H 12/06/16 14:55 PT 10.6 sec (9.0-12.0) 12/04/16 19:36 INR 1.0 (<1.2) 12/04/16 19:36 APTT 34.1 sec (22.0-30.0) H 12/08/16 05:52 D-Dimer 5.28 mg/L FEU (<0.60) H 12/04/16 19:36 Sample Site rrad 12/06/16 11:20 ABG pH 7.32 (7.35-7.45) L 12/06/16 11:20 ABG pCO2 36 mmHg (35-45) 12/06/16 11:20 ABG pO2 102 mmHg (83-108) 12/06/16 11:20 ABG HCO3 18 mmol/L (21-25) L 12/06/16 11:20 ABG Total CO2 19 mmol/L (19-24) 12/06/16 11:20 ABG O2 Saturation 97.0 % (94-97) 12/06/16 11:20 ABG Base Excess -6.7 mmol/L 12/06/16 11:20 ABG Hematocrit 34 % (34.0-46.0) 12/05/16 11:45 FiO2 35 % 12/06/16 11:20 Sodium 140 mmol/L (137-145) 12/08/16 05:52 Potassium 4.4 mmol/L (3.5-5.1) 12/08/16 05:52 Chloride 113 mmol/L (98-107) H 12/08/16 05:52 Carbon Dioxide 20 mmol/L (22-30) L 12/08/16 05:52 Anion Gap 7 mmol/L 12/08/16 05:52 BUN 48 mg/dL (7-17) H 12/08/16 05:52 Creatinine 1.20 mg/dL (0.52-1.04) H 12/08/16 05:52 Est GFR (MDRD) Af Amer 56 (>60 ml/min/1.73 sqM) 12/08/16 05:52 Est GFR (MDRD) Non-Af 46 (>60 ml/min/1.73 sqM) 12/08/16 05:52 Glucose 130 mg/dL (74-99) H 12/08/16 05:52 POC Glucose (mg/dL) 139 mg/dL (75-99) H 12/08/16 20:41 POC Glu Plating Engineer ID Sis Kumar 12/08/16 20:[address] Glu mg/dL 128 mg/dL 12/05/16 04:12 Hemoglobin A1c 6.1 % (4.2-6.1) 12/05/16 04:12 Lactic Ac Sepsis Rflx Y 12/04/16 20:23 Plasma Lactic Acid Britton 2.0 mmol/L (0.7-2.0) 12/05/16 00:02 Calcium 8.0 mg/dL (8.4-10.2) L 12/08/16 05:52 Phosphorus 3.0 mg/dL (2.5-4.5) 12/07/16 06:43 Magnesium 2.3 mg/dL (1.6-2.3) 12/08/16 05:52 Total Bilirubin 0.5 mg/dL (0.2-1.3) 12/08/16 05:52 AST 28 U/L (14-36) 12/08/16 05:52 ALT 38 U/L (9-52) 12/08/16 05:52 Alkaline Phosphatase 79 U/L (38-126) 12/08/16 05:52 Total Creatine Kinase 504 U/L (30-135) H 12/05/16 07:24 CK-MB (CK-2) 7.8 ng/mL (0.0-2.4) H* 12/05/16 07:24 CK-MB (CK-2) Rel Index 1.5 12/05/16 07:24 Troponin I <0.012 ng/mL (0.000-0.034) 12/05/16 07:24 C-Reactive Protein 401.6 mg/L (<10.0) H 12/06/16 14:55 NT-Pro-B Natriuret Pep 8270 pg/mL 12/04/16 19:36 Total Protein 4.6 g/dL (6.3-8.2) L 12/08/16 05:52 Albumin 2.1 g/dL (3.5-5.0) L 12/08/16 05:52 Vitamin B12 >1000 pg/mL (239-931) H 12/06/16 14:55 Vit D 1,25-Dihydroxy 88 pg/mL (20 - 79) H 12/06/16 14:55 Urine Color Dark Brown 12/04/16 20:18 Urine Appearance Cloudy (Clear) H 12/04/16 20:18 Urine pH 5.0 (5.0-8.0) 12/04/16 20:18 Ur Specific [place] 1.018 (1.001-1.035) 12/04/16 20:18 Urine Protein 1+ (Negative) H 12/04/16 20:18 Urine Glucose (UA) Negative (Negative) 12/04/16 20:18 Urine Ketones Negative (Negative) 12/04/16 20:18 Urine Blood Negative (Negative) 12/04/16 20:18 Urine Nitrite Negative (Negative) 12/04/16 20:18 Urine Bilirubin 1+ (Negative) H 12/04/16 20:18 Urine Urobilinogen 4.0 mg/dL (<2.0) 12/04/16 20:18 Ur Leukocyte Esterase Negative (Negative) 12/04/16 20:18 Urine RBC 1 /hpf (0-5) 12/04/16 20:18 Urine WBC 3 /hpf (0-5) 12/04/16 20:18 Urine Bacteria Rare /hpf (None) H 12/04/16 20:18 Hyaline Casts 4 /lpf (0-2) H 12/04/16 20:18 Urine Yeast (Budding) Few /hpf (None) H 12/04/16 20:18 Random Vancomycin 6.2 ug/mL 12/07/16 06:43 Urine Opiates Screen Not Detected (NotDetected) 12/04/16 20:18 Ur Oxycodone Screen Not Detected (NotDetected) 12/04/16 20:18 Urine Methadone Screen Not Detected (NotDetected) 12/04/16 20:18 Ur Propoxyphene Screen Not Detected (NotDetected) 12/04/16 20:18 Ur Barbiturates Screen Not Detected (NotDetected) 12/04/16 20:18 U Tricyclic Antidepress Detected (NotDetected) H 12/04/16 20:18 Ur Phencyclidine Scrn Not Detected (NotDetected) 12/04/16 20:18 Ur Amphetamines Screen Not Detected (NotDetected) 12/04/16 20:18 U Methamphetamines Scrn Not Detected (NotDetected) 12/04/16 20:18 U Benzodiazepines Scrn Detected (NotDetected) H 12/04/16 20:18 Urine Cocaine Screen Not Detected (NotDetected) 12/04/16 20:18 U Marijuana (THC) Screen Not Detected (NotDetected) 12/04/16 20:18 JANAK Antibody <5 IU/mL (<5) 12/06/16 14:55 Microbiology 12/04/16 19:36 Blood Blood Culture - Preliminary No Growth after 96 hours 12/04/16 21:30 Axilla - Left Gram Stain - Final 12/04/16 21:30 Axilla - Left Wound Culture - Final Staphylococcus aureus 12/04/16 20:18 Urine,Catheterized Urine Culture - Final Assessment and Plan (1) Anaphylactic reaction Status: Acute (2) Abscess of axilla, left Narrative/Plan: 61-year-old female presents from her correction with some increasing weakness. Admission without evidence of sepsis apparently in the base of the significant cellulitis and abscess to her left axillary area. She hasn't had the significant hives and swelling responded well to intervention with Benadryl , epinephrine and steroids. She apparently is improved from her admission. The extensive acidosis was noted and is being corrected. Antibiotic therapy was initiated with vancomycin and ampicillin sulbactam. Given her acute renal failure we'll avoid further doses of vancomycin in utilize Ceftaroline was to give coverage for MRSA as well as staph and strep which we, pathogens of the axillary area. Continue ongoing supportive care. Dry dressing for the drainage. Cultures in process. The patient is now improved. Cultures have come back as MSSA. Ceftaroline is transitioned to Ancef 2 g IVPB back every 8 hours given her marked improved renal failure. Her acidosis is generally resolved. Overall she is improving. With the improved renal function CT angiogram has been performed without evidence of a pulmonary embolus. With negative blood cultures though he no plan for outpatient intravenous antibiotic therapy. Status: Acute
--- NOTE | 2016-12-08 22:35 | P.PN ---
Subjective Principal diagnosis: ALLERGIC reaction Ms. Corey is a 61-year-old patient of visiting physicians Dr. Muro. Patient is resident of a [facility] called [facility]. Patient's chronic stable medical conditions include coronary artery disease with a 50% LAD lesion, GERD, hypertension, hyperlipidemia, schizoaffective disorder, anxiety, peripheral neuropathy and macular degeneration. Patient apparently for 3 days had noticed swelling and redness of the left arm not sure if something can better and presented to ER. Patient was found to be hypotensive with extensive rash and patient is given IV Solu-Medrol IV Benadryl and Pepcid and admitted to the medical floor. Patient became hypotensive and hypoxic was transferred to the intensive care unit with a consultation to critical care and infectious disease. Patient got a definite induration and redness in the left axillary area. Patient does confirm that she does use a razor in the left armpit. Patient was acidotic and was put on a bicarbonate drip patient also found to be in acute renal failure. Review of systems - patient is lethargic, she is being fed by the nurse now. She states that she is feeling very weak and tired. She denies having any chest pain or cough. No complaints of any abdominal pain nausea vomiting or diarrhea. She has difficulty in breathing at baseline and she is on 3 L of supplemental oxygen entry. Objective - Vital Signs Vital signs: Vital Signs Temp 97.3 F L 12/08/16 20:00 Pulse 88 12/08/16 20:39 Resp 18 12/08/16 20:00 BP 144/73 12/08/16 20:00 Pulse Ox 98 12/08/16 20:00 Intake & Output 12/08/16 12/08/16 12/09/16 06:59 18:59 06:59 Intake Total 8314.239 8026 Output Total 571 985 Balance 1127.640 115 Weight 117.5 kg Intake: IV 1300 1100 0.9 NACL 1300 1100 Intake, IV Titration 398.640 Amount Heparin Sodium,Porcine/ 398.640 D5w Pmx 25,000 unit In Dextrose/Water 1 500ml. bag @ 18 UNITS/KG/HR 36. 25 mls/hr IV .[id number] [facility] Rx#:[id number] Output: Urine 571 985 Straight 600 Other: Voiding Method Indwelling Catheter Indwelling Catheter # Voids 0 - Exam ENERAL EXAM: Less somnolent today, comfortable in no apparent distress. HEAD: Normocephalic. EYES: Normal reaction of pupils, equal size. Dry eyes NECK: No masses, no JVD. LUNGS: Equal air entry with no crackles, wheeze, rhonchi or dullness. Diminished CVS: S1 and S2 normal with no audible mumurs, regular rhythm. ABDOMEN: No hepatosplenomegaly, normal bowel sounds, no guarding or rigidity. EXTREMITIES: No edema noted, pedal pulses palpable. SKIN: Left axilla noted to have an induration that is firm and hot. A small pustule is noted in the middle of the axilla currently no drainage is seen. CENTRAL NERVOUS SYSTEM: No focal deficits, tone is normal in all 4 extremities. - Labs CBC & Chem 7: 12/08/16 05:52 12/08/16 05:52 Labs: Abnormal Lab Results - Last 24 Hours (Table) 12/06/16 12/08/16 12/08/16 Range/Units 14:55 00:12 05:52 WBC 10.7 H (3.8-10.6) k/uL RBC 3.28 L (3.80-5.40) m/uL Hgb 10.4 L (11.4-16.0) gm/dL Hct 32.3 L (34.0-46.0) % Neutrophils # 10.0 H (1.3-7.7) k/uL Lymphocytes # 0.3 L (1.0-4.8) k/uL APTT (22.0-30.0) sec Chloride (98-107) mmol/L Carbon Dioxide (22-30) mmol/L BUN (7-17) mg/dL Creatinine (0.52-1.04) mg/dL Glucose (74-99) mg/dL POC Glucose (mg/dL) 139 H (75-99) mg/dL Calcium (8.4-10.2) mg/dL Total Protein (6.3-8.2) g/dL Albumin (3.5-5.0) g/dL Vit D 1,25-Dihydroxy 88 H (20 - 79) pg/mL 12/08/16 12/08/16 12/08/16 Range/Units 05:52 05:52 05:57 WBC (3.8-10.6) k/uL RBC (3.80-5.40) m/uL Hgb (11.4-16.0) gm/dL Hct (34.0-46.0) % Neutrophils # (1.3-7.7) k/uL Lymphocytes # (1.0-4.8) k/uL APTT 34.1 H (22.0-30.0) sec Chloride 113 H (98-107) mmol/L Carbon Dioxide 20 L (22-30) mmol/L BUN 48 H (7-17) mg/dL Creatinine 1.20 H (0.52-1.04) mg/dL Glucose 130 H (74-99) mg/dL POC Glucose (mg/dL) 137 H (75-99) mg/dL Calcium 8.0 L (8.4-10.2) mg/dL Total Protein 4.6 L (6.3-8.2) g/dL Albumin 2.1 L (3.5-5.0) g/dL Vit D 1,25-Dihydroxy (20 - 79) pg/mL 12/08/16 12/08/16 12/08/16 Range/Units 08:36 16:45 20:41 WBC (3.8-10.6) k/uL RBC (3.80-5.40) m/uL Hgb (11.4-16.0) gm/dL Hct (34.0-46.0) % Neutrophils # (1.3-7.7) k/uL Lymphocytes # (1.0-4.8) k/uL APTT (22.0-30.0) sec Chloride (98-107) mmol/L Carbon Dioxide (22-30) mmol/L BUN (7-17) mg/dL Creatinine (0.52-1.04) mg/dL Glucose (74-99) mg/dL POC Glucose (mg/dL) 125 H 198 H 139 H (75-99) mg/dL Calcium (8.4-10.2) mg/dL Total Protein (6.3-8.2) g/dL Albumin (3.5-5.0) g/dL Vit D 1,25-Dihydroxy (20 - 79) pg/mL Microbiology - Last 24 Hours (Table) 12/04/16 19:36 Blood Culture - Preliminary Blood No Growth after 96 hours Assessment and Plan Plan: Assessment - Acute ALLERGIC reaction could be from an insect bite exact cause unknown responded well - Left axillary cellulitis -Acute exacerbation of intermittent asthma causing acute hypoxic respiratory failure -Coronary artery disease with nonobstructive 50% LAD lesion -GERD -Essential hypertension -Hyperlipidemia -Metabolic acidosis -Hyponatremia - hypovolemic hyponatremia -Schizoaffective disorder, chronic -Anxiety disorder and otherwise specified -Peripheral neuropathy cause unknown -Acute metabolic encephalopathy multifactorial -Acute renal failure, nonoliguric probably ATN DUE TO HYPOTENSION CODE STATUS full code PLAN Patient's blood cultures were positive for MSSA so the antibiotic has been changed to cefazolin. Patient did get a CT for PE today that was negative for PE so the heparin drip was discontinued. Continue with steroids, breathing treatments, incentive spirometry. We'll continue with the rest of her medication regimen. Overall prognosis is guarded.
[2016-12-09 05:47] LABS: Glucose,Whole Blood 128 mg/dL (75-99)
[2016-12-09] MEDS: INSULIN LISPRO (humaLOG) 300 UNIT/3 ML VIAL SQ SCH ×4 (06:15→21:32)
[2016-12-09] MEDS: SODIUM CHLORIDE 0.9% 1,000 ML IV SCH (06:28)
[2016-12-09] MEDS: methylPREDNISolone SOD SUCCI 125 MG/2 ML VIAL IV SCH ×3 (06:29→17:18)
[2016-12-09 07:11] LABS: Vitamin E (Alpha Tocopherol) 1512 ug/dL (500-1800)
--- NOTE | 2016-12-09 08:41 | PN ---
Mrs. Corey had a CT angio which revealed no evidence of pulmonary embolism. She is doing better clinically and remains in sinus rhythm. She has noncritical CAD. Vital signs are stable. S1, S2 heard normally, but distantly. Lungs are clear. Abdomen and lower extremity exams are unchanged. Plan is to continue current medications, increase activity, move her telemetry and place her on subcu heparin and discontinue IV heparin. KRYSTYNA
[2016-12-09] MEDS: BUDESONIDE 0.5 MG/2 ML NEBU INHALATION SCH ×2 (08:47→20:11)
[2016-12-09] MEDS: ALBUTEROL NEBULIZED 2.5 MG/3 ML INHALATION PRN ×4 (08:47→20:11)
[2016-12-09] MEDS: CHOLECALCIFEROL 1,000 UNIT TAB PO SCH (10:02)
[2016-12-09] MEDS: HEPARIN SODIUM,PORCINE 5,000 UNIT/ML 1 ML VIAL SQ SCH ×2 (10:02→17:18)
[2016-12-09] MEDS: VIT A,C & E-LUTEIN-MINERALS 1 EACH TAB PO SCH (10:02)
[2016-12-09] MEDS: ASPIRIN 81 MG CHEW PO SCH (10:02)
[2016-12-09] MEDS: CITALOPRAM HYDROBROMIDE 20 MG TAB PO SCH (10:03)
[2016-12-09] MEDS: FAMOTIDINE 20 MG/2 ML VIAL IV SCH (10:03)
[2016-12-09] MEDS: LORATADINE 10 MG TAB PO SCH (10:04)
[2016-12-09] MEDS: METOPROLOL TARTRATE 25 MG TAB PO SCH ×3 (10:04→21:43)
[2016-12-09] MEDS: GABAPENTIN 300 MG CAP PO SCH ×2 (10:04→21:43)
[2016-12-09] MEDS: SENNOSIDES 8.6 MG TAB PO SCH ×2 (10:04→21:43)
[2016-12-09] MEDS: SODIUM BICARBONATE TAB 650 MG TAB PO SCH ×2 (10:05→21:43)
[2016-12-09 11:31] LABS: Glucose,Whole Blood 130 mg/dL (75-99)
--- NOTE | 2016-12-09 12:34 | P.PN ---
Subjective 12/06/16- This is a 61-year-old female who came into emergency department with shortness of breath and generalized weakness that had been developing over the last 3-4 days. Apparently the patient was stung by a bee in her left axilla, the area became extremely itchy with a diffuse reddened rash. The patient states she also shaved her left axilla in the cellulitis developed. The patient became unresponsive and received an EpiPen injection as well as Benadryl with EMS. This patient lives at a [facility]. In the emergency room the patient was noted to have a d-dimer of 5.28 so she was also started on heparin drip, which is currently therapeutic. She was also noted to the septic with a lactic acid of 2.5. Urine drug screen was completed and was positive for tricyclic antidepressants and benzodiazepines. She she was admitted to the medical floor and was also given a dose of Ativan. The patient became somnolent with oxygen saturations 49%. Subsequently she was transferred to the ICU. The patient has since been on BiPAP and her oxygen saturations have improved. However throughout the night the patient was hypotensive but maintained her urine output therefore she was given IV boluses which was effective in bringing up her blood pressure. Patient is also on Solu-Medrol, antibiotics and IV Benadryl. Patient is also noted to be acidotic tenderness on IV fluids of D5W with 3 A of bicarb at 50ml/hr. Wound culture of the left axilla has been taken and is presumptive staph aureus. Upon examination the patient's resting in bed on BiPAP she continues to be somewhat somnolent however responds to voice commands slowly. BiPAP settings IPAP of 12 EPAP of 5 FiO2 35% oxygen saturations 98%. Patient also has a history of being mentally challenged and slurs her speech as a baseline due to a deficit of a previous CVA /TIA. 12/08/15- upon examination today the patient's resting up in bed on 3 L of supplemental oxygen. Patient is alert and oriented 1. Patient is less lethargic today than yesterday. Liver the patient still becomes short of breath with exertion or extensive conversation. States labs were reviewed and her white count is now to 10.9, sodium 140 potassium 3.3 chloride 111 carbon dioxide 22 BUN 45 creatinine 1.3. Patient should have a VQ scan once okayed by nephrology. 12/09/15- on examination today the patient is resting up in bed on 2 L of supplemental oxygen. The patient continues to be very sleepy and currently we are investigating her home medication and dosage of Seroquel that she receives at the [facility] she attends. Excessive sleepiness could be due to this medication and we will hold at this time. Neuro is also on consults. Patient did have her CT a of the chest yesterday which showed no evidence of pulmonary embolism, interstitial pulmonary infiltrates with some atelectasis at the lung bases and small pleural effusions were noted. It is suggested on the impression this could be due to congestive heart failure. Cardiology is also on consult. Patient's heparin drip could be stopped due to no pulmonary embolism. Patient continues to be short of breath with exertion. hemodynamically she is much better. 12/09/16- the patient was downgraded yesterday from the ICU. Today she is seen on the selective care unit resting up in bed on 2-3 L of supplemental oxygen. She continues to be sleepy however less sleepy than yesterday. She does state she has intermittent shortness of breath with exertion. She denies any cough or congestion. Per the nursing staff the patient has been intermittently taking off her oxygen. The patient has been educated on the importance of keeping the oxygen on at this time. Her cellulitis is slowly improving. Mentation remains about the same. Objective - Vital Signs Vital signs: Vital Signs Temp 97.8 F 12/09/16 08:00 Pulse 72 12/09/16 12:20 Resp 18 12/09/16 08:00 BP 131/62 12/09/16 08:00 Pulse Ox 94 L 12/09/16 08:00 Intake & Output 12/08/16 12/09/16 12/09/16 18:59 06:59 18:59 Intake Total 1100 400 Output Total 985 500 Balance 115 -100 Intake: IV 1100 300 0.9 NACL 1100 300 Intake, IV Titration 100 Amount ceFAZolin 2 gm In Sodium 100 Chloride 0.9% 100 ml @ 100 mls/hr IVPB Q8HR [facility] Rx#:[id number] Output: Urine 985 500 Straight 600 500 Other: Voiding Method Indwelling Catheter Indwelling Catheter # Voids 0 - Exam GENERAL EXAM: Continued somnolent today, however less than previous, comfortable in no apparent distress. HEAD: Normocephalic. EYES: Normal reaction of pupils, equal size. Dry eyes NOSE: Clear with pink turbinates. THROAT: No erythema or exudates. NECK: No masses, no JVD. CHEST: No chest wall deformity. LUNGS: Equal air entry with no crackles, wheeze, rhonchi or dullness. Diminished CVS: S1 and S2 normal with no audible mumurs, regular rhythm. ABDOMEN: No hepatosplenomegaly, normal bowel sounds, no guarding or rigidity. EXTREMITIES: No edema noted, pedal pulses palpable. SKIN: Left axilla noted to have an definite indurated area of erythema the area is firm and hot. The small less than 1 cm pustule is noted in the middle of the axilla currently no drainage is seen. However previously the area was draining. Cellulitis improving CENTRAL NERVOUS SYSTEM: No focal deficits, tone is normal in all 4 extremities. - Labs CBC & Chem 7: 12/08/16 05:52 12/08/16 05:52 Labs: Abnormal Lab Results - Last 24 Hours (Table) 12/06/16 12/08/16 12/08/16 Range/Units 14:55 16:45 20:41 POC Glucose (mg/dL) 198 H 139 H (75-99) mg/dL Vit D 1,25-Dihydroxy 88 H (20 - 79) pg/mL 12/09/16 12/09/16 Range/Units 05:45 11:29 POC Glucose (mg/dL) 128 H 130 H (75-99) mg/dL Vit D 1,25-Dihydroxy (20 - 79) pg/mL Microbiology - Last 24 Hours (Table) 12/04/16 19:36 Blood Culture - Preliminary Blood No Growth after 96 hours Assessment and Plan Plan: Assessment Anaphylaxis reaction Metabolic acidosis and elevated d-dimer due to severe sepsis, related to staph wound infection and acute renal failure Acute hypoxic respiratory failure, Hypotension Left abscess of the axilla Cellulitis of the left axilla Schizoaffective disorder Anxiety Hypokalemic Morbid obesity Plan Medications have been reviewed and will be continued as ordered. We will continue to monitor her blood pressures closely as well as urine output. Currently the patient is hemodynamically stable. Continue with IV antibiotics, Benadryl and steroids. Replace electrolytes and monitor per protocol. Cultures have come back as MSSA. Antibiotics had been adjusted by infectious disease. Continue with pulmonary hygiene, coughing and deep breathing exercises , and supportive care. Supplemental oxygen or BiPAP to maintain oxygen saturations of 92% or better. Continue nebulizer treatments. GI and DVT prophylaxis. Continue with Neuro, ID, and nephro consults and appreciate recommendations. We will continue to monitor labs/results and adjust treatment as necessary. Further recommendations pending. I performed an examination of the patient and discussed their management with the nurse practitioner. I have reviewed the nurse practitioner's note and agree with the documented findings and plan of care.
[2016-12-09] MEDS: ceFAZolin 2 GM in SODIUM CHLORIDE 0.9% 100 ML IVPB SCH ×2 (13:26→17:18)
[2016-12-09 16:53] LABS: Glucose,Whole Blood 134 mg/dL (75-99)
[2016-12-09 20:46] LABS: Glucose,Whole Blood 131 mg/dL (75-99)
[2016-12-09] MEDS: ATORVASTATIN 10 MG TAB PO SCH (21:43)
--- NOTE | 2016-12-09 21:55 | P.PN ---
Subjective Principal diagnosis: Generalized weakness 61-year-old female is underlying history of schizophrenia and is cared for in a assisted environment has been ill for approximately 3 days. It is noted by the current available evidence. She does have a caregiver that help with the information admission. She is having difficulties with her left axillary area with some drainage. Then it was noted that she suffered what was thought to be a bee sting on to the left arm area. Developed extensive rash and hives and some shortness of breath. She was treated with Benadryl as well as epinephrine and Solu-Medrol. She is brought to the intensive care unit. She 'was hypotensive and was having difficulty with her speech. Speech however is at its baseline abnormal. She recovered from the hives. Continues to have cellulitis of the left axillary area The patient does respond to simple questions. Seems to be more comfortable today. Denied new symptoms. Doing well but has confusion, has a sitter for safety. Objective - Vital Signs Vital signs: Vital Signs Temp 99.0 F 12/09/16 20:00 Pulse 76 12/09/16 20:24 Resp 18 12/09/16 20:00 BP 133/63 12/09/16 20:00 Pulse Ox 95 12/09/16 20:00 Intake & Output 12/09/16 12/09/16 12/10/16 06:59 18:59 06:59 Intake Total 400 Output Total 500 600 700 Balance -100 -600 -700 Intake: IV 300 0.9 NACL 300 Intake, IV Titration 100 Amount ceFAZolin 2 gm In Sodium 100 Chloride 0.9% 100 ml @ 100 mls/hr IVPB Q8HR [facility] Rx#:[id number] Output: Urine 500 600 700 Straight 500 Other: Voiding Method Indwelling Catheter Indwelling Catheter - Exam 61-year-old woman who appears older than her stated age. Occasionally open eyes to the exam. Occasional responses are noted. HEENT: Anicteric conjunctiva are pink and moist nasal mucosa grossly intact without significant lesions, there is no thrush. Oral mucosa is dry Neck: The neck is supple without significant lymphadenopathy or thyromegaly. Lungs: Good bilateral air entry without significant crackles or wheezing. There is no significant bronchial sounds. There is no egophony or dullness. Heart: Regular rate and rhythm with an audible S1-S2, no S3 no S4. There is no significant murmur click or rub, PMI was nondisplaced. Abdomen: Positive bowel sounds soft and nontender without palpable masses or organomegaly. There was no guarding or rebound. Extremities: The upper extremities have excellent pulses they are symmetric, no significant petechiae or telangiectasia. No splinter hemorrhages were noted. The left axillary area is evidence of the distinct pattern of erythema as well as a pustule at the midpoint of the axilla. There is no further purulent drainage at this time. The lower extremities are free from significant lesions the peripheral pulses were 2+ and symmetric. Neuro: Arousable did have some interaction to some simple questions. In general withdrawn. - Labs CBC & Chem 7: 12/08/16 05:52 12/08/16 05:52 Labs: Abnormal Lab Results - Last 24 Hours (Table) 12/09/16 12/09/16 12/09/16 Range/Units 05:45 11:29 16:51 POC Glucose (mg/dL) 128 H 130 H 134 H (75-99) mg/dL 12/09/16 Range/Units 20:44 POC Glucose (mg/dL) 131 H (75-99) mg/dL Microbiology - Last 24 Hours (Table) 12/04/16 19:36 Blood Culture - Preliminary Blood No Growth after 96 hours Laboratory Results WBC 10.7 k/uL (3.8-10.6) H 12/08/16 05:52 RBC 3.28 m/uL (3.80-5.40) L 12/08/16 05:52 Hgb 10.4 gm/dL (11.4-16.0) L 12/08/16 05:52 Hct 32.3 % (34.0-46.0) L 12/08/16 05:52 MCV 98.6 fL (80.0-100.0) 12/08/16 05:52 MCH 31.6 pg (25.0-35.0) 12/08/16 05:52 MCHC 32.1 g/dL (31.0-37.0) 12/08/16 05:52 RDW 13.6 % (11.5-15.5) 12/08/16 05:52 Plt Count 221 k/uL (150-450) 12/08/16 05:52 Neutrophils % 93 % 12/08/16 05:52 Neutrophils % (Manual) 78.0 % 12/07/16 06:43 Band Neutrophils % 16.5 % 12/07/16 06:43 Lymphocytes % 3 % 12/08/16 05:52 Lymphocytes % (Manual) 4.0 % 12/07/16 06:43 Monocytes % 3 % 12/08/16 05:52 Monocytes % (Manual) 1.0 % 12/07/16 06:43 Eosinophils % 0 % 12/08/16 05:52 Eosinophils % (Manual) 0.5 % 12/06/16 04:25 Basophils % 0 % 12/08/16 05:52 Metamyelocytes % 1.0 % 12/06/16 04:25 Myelocytes % 0.5 % 12/07/16 06:43 Neutrophils # 10.0 k/uL (1.3-7.7) H 12/08/16 05:52 Neutrophils # (Manual) 10.3 k/uL (1.3-7.7) H 12/07/16 06:43 Lymphocytes # 0.3 k/uL (1.0-4.8) L 12/08/16 05:52 Lymphocytes # (Manual) 0.4 k/uL (1.0-4.8) L 12/07/16 06:43 Monocytes # 0.3 k/uL (0-1.0) 12/08/16 05:52 Monocytes # (Manual) 0.1 k/uL (0-1.0) 12/07/16 06:43 Eosinophils # 0.0 k/uL (0-0.7) 12/08/16 05:52 Eosinophils # (Manual) 0.0 k/uL (0-0.7) 12/06/16 04:25 Basophils # 0.1 k/uL (0-0.2) 12/08/16 05:52 Nucleated RBCs 0 /100 WBC (0-0) 12/07/16 06:43 Manual Slide Review Performed 12/08/16 05:52 Toxic Vacuolation Present 12/06/16 04:25 Polychromasia Present 12/06/16 04:25 Poikilocytosis (manual Present 12/08/16 05:52 Anisocytosis (manual) Present 12/06/16 04:25 Crenated Cell Present 12/06/16 04:25 ESR 110 mm/hr (0-20) H 12/06/16 14:55 PT 10.6 sec (9.0-12.0) 12/04/16 19:36 INR 1.0 (<1.2) 12/04/16 19:36 APTT 34.1 sec (22.0-30.0) H 12/08/16 05:52 D-Dimer 5.28 mg/L FEU (<0.60) H 12/04/16 19:36 Sample Site rrad 12/06/16 11:20 ABG pH 7.32 (7.35-7.45) L 12/06/16 11:20 ABG pCO2 36 mmHg (35-45) 12/06/16 11:20 ABG pO2 102 mmHg (83-108) 12/06/16 11:20 ABG HCO3 18 mmol/L (21-25) L 12/06/16 11:20 ABG Total CO2 19 mmol/L (19-24) 12/06/16 11:20 ABG O2 Saturation 97.0 % (94-97) 12/06/16 11:20 ABG Base Excess -6.7 mmol/L 12/06/16 11:20 ABG Hematocrit 34 % (34.0-46.0) 12/05/16 11:45 FiO2 35 % 12/06/16 11:20 Sodium 140 mmol/L (137-145) 12/08/16 05:52 Potassium 4.4 mmol/L (3.5-5.1) 12/08/16 05:52 Chloride 113 mmol/L (98-107) H 12/08/16 05:52 Carbon Dioxide 20 mmol/L (22-30) L 12/08/16 05:52 Anion Gap 7 mmol/L 12/08/16 05:52 BUN 48 mg/dL (7-17) H 12/08/16 05:52 Creatinine 1.20 mg/dL (0.52-1.04) H 12/08/16 05:52 Est GFR (MDRD) Af Amer 56 (>60 ml/min/1.73 sqM) 12/08/16 05:52 Est GFR (MDRD) Non-Af 46 (>60 ml/min/1.73 sqM) 12/08/16 05:52 Glucose 130 mg/dL (74-99) H 12/08/16 05:52 POC Glucose (mg/dL) 131 mg/dL (75-99) H 12/09/16 20:44 POC Glu [employer] ID Azul Matthew 12/09/16 20:[address] Glu mg/dL 128 mg/dL 12/05/16 04:12 Hemoglobin A1c 6.1 % (4.2-6.1) 12/05/16 04:12 Lactic Ac Sepsis Rflx Y 12/04/16 20:23 Plasma Lactic Acid Britton 2.0 mmol/L (0.7-2.0) 12/05/16 00:02 Calcium 8.0 mg/dL (8.4-10.2) L 12/08/16 05:52 Phosphorus 3.0 mg/dL (2.5-4.5) 12/07/16 06:43 Magnesium 2.3 mg/dL (1.6-2.3) 12/08/16 05:52 Total Bilirubin 0.5 mg/dL (0.2-1.3) 12/08/16 05:52 AST 28 U/L (14-36) 12/08/16 05:52 ALT 38 U/L (9-52) 12/08/16 05:52 Alkaline Phosphatase 79 U/L (38-126) 12/08/16 05:52 Total Creatine Kinase 504 U/L (30-135) H 12/05/16 07:24 CK-MB (CK-2) 7.8 ng/mL (0.0-2.4) H* 12/05/16 07:24 CK-MB (CK-2) Rel Index 1.5 12/05/16 07:24 Troponin I <0.012 ng/mL (0.000-0.034) 12/05/16 07:24 C-Reactive Protein 401.6 mg/L (<10.0) H 12/06/16 14:55 NT-Pro-B Natriuret Pep 8270 pg/mL 12/04/16 19:36 Total Protein 4.6 g/dL (6.3-8.2) L 12/08/16 05:52 Albumin 2.1 g/dL (3.5-5.0) L 12/08/16 05:52 Vitamin B12 >1000 pg/mL (239-931) H 12/06/16 14:55 Vit D 1,25-Dihydroxy 88 pg/mL (20 - 79) H 12/06/16 14:55 Alpha-Tocopherol 1512 ug/dL (500-1800) 12/06/16 14:55 Urine Color Dark Brown 12/04/16 20:18 Urine Appearance Cloudy (Clear) H 12/04/16 20:18 Urine pH 5.0 (5.0-8.0) 12/04/16 20:18 Ur Specific Brule 1.018 (1.001-1.035) 12/04/16 20:18 Urine Protein 1+ (Negative) H 12/04/16 20:18 Urine Glucose (UA) Negative (Negative) 12/04/16 20:18 Urine Ketones Negative (Negative) 12/04/16 20:18 Urine Blood Negative (Negative) 12/04/16 20:18 Urine Nitrite Negative (Negative) 12/04/16 20:18 Urine Bilirubin 1+ (Negative) H 12/04/16 20:18 Urine Urobilinogen 4.0 mg/dL (<2.0) 12/04/16 20:18 Ur Leukocyte Esterase Negative (Negative) 12/04/16 20:18 Urine RBC 1 /hpf (0-5) 12/04/16 20:18 Urine WBC 3 /hpf (0-5) 12/04/16 20:18 Urine Bacteria Rare /hpf (None) H 12/04/16 20:18 Hyaline Casts 4 /lpf (0-2) H 12/04/16 20:18 Urine Yeast (Budding) Few /hpf (None) H 12/04/16 20:18 Random Vancomycin 6.2 ug/mL 12/07/16 06:43 Urine Opiates Screen Not Detected (NotDetected) 12/04/16 20:18 Ur Oxycodone Screen Not Detected (NotDetected) 12/04/16 20:18 Urine Methadone Screen Not Detected (NotDetected) 12/04/16 20:18 Ur Propoxyphene Screen Not Detected (NotDetected) 12/04/16 20:18 Ur Barbiturates Screen Not Detected (NotDetected) 12/04/16 20:18 U Tricyclic Antidepress Detected (NotDetected) H 12/04/16 20:18 Ur Phencyclidine Scrn Not Detected (NotDetected) 12/04/16 20:18 Ur Amphetamines Screen Not Detected (NotDetected) 12/04/16 20:18 U Methamphetamines Scrn Not Detected (NotDetected) 12/04/16 20:18 U Benzodiazepines Scrn Detected (NotDetected) H 12/04/16 20:18 Urine Cocaine Screen Not Detected (NotDetected) 12/04/16 20:18 U Marijuana (THC) Screen Not Detected (NotDetected) 12/04/16 20:18 JANAK Antibody <5 IU/mL (<5) 12/06/16 14:55 Microbiology 12/04/16 19:36 Blood Blood Culture - Preliminary No Growth after 96 hours 12/04/16 21:30 Axilla - Left Gram Stain - Final 12/04/16 21:30 Axilla - Left Wound Culture - Final Staphylococcus aureus 12/04/16 20:18 Urine,Catheterized Urine Culture - Final Assessment and Plan (1) Anaphylactic reaction Status: Acute (2) Abscess of axilla, left Narrative/Plan: 61-year-old female [facility] with some increasing weakness. Admission without evidence of sepsis apparently in the base of the significant cellulitis and abscess to her left axillary area. She hasn't had the significant hives and swelling responded well to intervention with Benadryl , epinephrine and steroids. She apparently is improved from her admission. The extensive acidosis was noted and is being corrected. Antibiotic therapy was initiated with vancomycin and ampicillin sulbactam. Given her acute renal failure we'll avoid further doses of vancomycin in utilize Ceftaroline was to give coverage for MRSA as well as staph and strep which we, pathogens of the axillary area. Continue ongoing supportive care. Dry dressing for the drainage. Cultures in process. The patient is now improved. Cultures have come back as MSSA. Ceftaroline was transitioned to Ancef 2 g IVPB back every 8 hours given her marked improved renal failure. Continue for now. Her acidosis is generally resolved. Overall she is improving. With the improved renal function CT angiogram has been performed without evidence of a pulmonary embolus. With negative blood cultures will not plan for outpatient intravenous antibiotic therapy. Status: Acute
--- NOTE | 2016-12-09 22:11 | P.PN ---
Subjective Principal diagnosis: ALLERGIC reaction Ms. Corey is a 61-year-old patient of visiting physicians Dr. Muro. Patient is resident of a intermediate called [facility]. Patient's chronic stable medical conditions include coronary artery disease with a 50% LAD lesion, GERD, hypertension, hyperlipidemia, schizoaffective disorder, anxiety, peripheral neuropathy and macular degeneration. Patient apparently for 3 days had noticed swelling and redness of the left arm not sure if something can better and presented to ER. Patient was found to be hypotensive with extensive rash and patient is given IV Solu-Medrol IV Benadryl and Pepcid and admitted to the medical floor. Patient became hypotensive and hypoxic was transferred to the intensive care unit with a consultation to critical care and infectious disease. Patient got a definite induration and redness in the left axillary area. Patient does confirm that she does use a razor in the left armpit. Patient was acidotic and was put on a bicarbonate drip patient also found to be in acute renal failure. Patient's condition improved with IV antibiotics. She has been transferred out of the ICU yesterday. Review of systems - She states that she is feeling very weak and tired. She denies having any chest pain or cough. No complaints of any abdominal pain nausea vomiting or diarrhea. She has difficulty in breathing at baseline and she is on 3 L of supplemental oxygen entry. Objective - Vital Signs Vital signs: Vital Signs Temp 99.0 F 12/09/16 20:00 Pulse 76 12/09/16 20:24 Resp 18 12/09/16 20:00 BP 133/63 12/09/16 20:00 Pulse Ox 95 12/09/16 20:00 Intake & Output 12/09/16 12/09/16 12/10/16 06:59 18:59 06:59 Intake Total 400 Output Total 500 600 700 Balance -100 -600 -700 Intake: IV 300 0.9 NACL 300 Intake, IV Titration 100 Amount ceFAZolin 2 gm In Sodium 100 Chloride 0.9% 100 ml @ 100 mls/hr IVPB Q8HR [facility] Rx#:[id number] Output: Urine 500 600 700 Straight 500 Other: Voiding Method Indwelling Catheter Indwelling Catheter - Exam ENERAL EXAM: Less somnolent today, comfortable in no apparent distress. HEAD: Normocephalic. EYES: Normal reaction of pupils, equal size. Dry eyes NECK: No masses, no JVD. LUNGS: Equal air entry with no crackles, wheeze, rhonchi or dullness. Diminished CVS: S1 and S2 normal with no audible mumurs, regular rhythm. ABDOMEN: No hepatosplenomegaly, normal bowel sounds, no guarding or rigidity. EXTREMITIES: No edema noted, pedal pulses palpable. SKIN: Left axilla noted to have an induration that is firm and hot. A small pustule is noted in the middle of the axilla currently no drainage is seen. CENTRAL NERVOUS SYSTEM: No focal deficits, tone is normal in all 4 extremities. - Labs CBC & Chem 7: 12/08/16 05:52 12/08/16 05:52 Labs: Abnormal Lab Results - Last 24 Hours (Table) 12/09/16 12/09/16 12/09/16 Range/Units 05:45 11:29 16:51 POC Glucose (mg/dL) 128 H 130 H 134 H (75-99) mg/dL 12/09/16 Range/Units 20:44 POC Glucose (mg/dL) 131 H (75-99) mg/dL Microbiology - Last 24 Hours (Table) 12/04/16 19:36 Blood Culture - Preliminary Blood No Growth after 120 hours Assessment and Plan Plan: Assessment - Acute ALLERGIC reaction could be from an insect bite exact cause unknown responded well - Left axillary cellulitis -Acute exacerbation of intermittent asthma causing acute hypoxic respiratory failure -Coronary artery disease with nonobstructive 50% LAD lesion -GERD -Essential hypertension -Hyperlipidemia -Metabolic acidosis -Hyponatremia - hypovolemic hyponatremia -Schizoaffective disorder, chronic -Anxiety disorder and otherwise specified -Peripheral neuropathy cause unknown -Acute metabolic encephalopathy multifactorial -Acute renal failure, nonoliguric probably ATN DUE TO HYPOTENSION CODE STATUS full code PLAN Patient's blood cultures were positive for MSSA so the antibiotic has been changed to cefazolin. Patient did get a CT for PE today that was negative for PE so the heparin drip was discontinued. Continue with steroids, breathing treatments, incentive spirometry. We'll continue with the rest of her medication regimen. Overall prognosis is guarded.
[2016-12-10] MEDS: ceFAZolin 2 GM in SODIUM CHLORIDE 0.9% 100 ML IVPB SCH ×4 (00:04→23:42)
[2016-12-10] MEDS: HEPARIN SODIUM,PORCINE 5,000 UNIT/ML 1 ML VIAL SQ SCH ×4 (00:05→23:42)
[2016-12-10] MEDS: ACETAMINOPHEN TAB 325 MG TAB PO PRN ×2 (00:05→23:42)
[2016-12-10] MEDS: methylPREDNISolone SOD SUCCI 125 MG/2 ML VIAL IV SCH ×5 (00:05→23:42)
[2016-12-10 06:05] LABS: Glucose,Whole Blood 129 mg/dL (75-99)
[2016-12-10] MEDS: INSULIN LISPRO (humaLOG) 300 UNIT/3 ML VIAL SQ SCH ×4 (06:39→21:31)
[2016-12-10 06:40] LABS: Anion Gap 10 mmol/L; Blood Urea Nitrogen 55 mg/dL (7-17); Calcium 8.5 mg/dL (8.4-10.2); Carbon Dioxide 21 mmol/L (22-30); Chloride 118 mmol/L (98-107); Glucose 122 mg/dL (74-99); Non-African American GFR(MDRD) 51 (>60 ml/min/1.73 sqM); Potassium 4.4 mmol/L (3.5-5.1); Sodium 149 mmol/L (137-145)
[2016-12-10] MEDS: SODIUM CHLORIDE 0.9% 1,000 ML IV SCH (06:41)
[2016-12-10] MEDS: ALBUTEROL NEBULIZED 2.5 MG/3 ML INHALATION PRN ×4 (08:23→19:42)
[2016-12-10] MEDS: BUDESONIDE 0.5 MG/2 ML NEBU INHALATION SCH ×2 (08:23→19:42)
--- NOTE | 2016-12-10 08:38 | P.PN ---
Subjective Patient is seen in follow-up for acute kidney injury. Her baseline creatinine is 1 and was elevated at 3.4 on admission. It is down to 1.1 today. She is nonoliguric. Patient presented with left axillary cellulitis and a questionable insect sting. She was also hypotensive on admission and did receive IV fluids. She is currently maintained on normal saline at 50 mL an hour. Hemodynamically she stable. Patient is still quite confused and is not a reliable historian. Vital signs are stable. General: The patient appeared well nourished and normally developed. HEENT: Head exam is unremarkable. Neck is without jugular venous distension. LUNGS: Scattered rhonchi. Breath sounds decreased. HEART: Rate and Rhythm are regular. First and second heart sounds normal. No murmurs, rubs or gallops. ABDOMEN: Abdominal exam reveals normal bowel sounds. Non-tender and non- distended. No evidence of peritonitis. EXTREMITITES: No clubbing, cyanosis, or edema. Objective - Vital Signs Vital signs: Vital Signs Temp 98.1 F 12/10/16 03:19 Pulse 72 12/10/16 08:24 Resp 16 12/10/16 03:20 BP 128/62 12/10/16 03:19 Pulse Ox 94 L 12/10/16 08:24 Intake & Output 12/09/16 12/10/16 12/10/16 18:59 06:59 18:59 Intake Total 500 Output Total 600 700 Balance -600 -200 Intake: IV 500 0.9 NACL 500 Output: Urine 600 700 Other: Voiding Method Indwelling Catheter Indwelling Catheter - Labs CBC & Chem 7: 12/08/16 05:52 12/10/16 05:48 Labs: Abnormal Lab Results - Last 24 Hours (Table) 12/09/16 12/09/16 12/09/16 Range/Units 11:29 16:51 20:44 Sodium (137-145) mmol/L Chloride (98-107) mmol/L Carbon Dioxide (22-30) mmol/L BUN (7-17) mg/dL Creatinine (0.52-1.04) mg/dL Glucose (74-99) mg/dL POC Glucose (mg/dL) 130 H 134 H 131 H (75-99) mg/dL 12/10/16 12/10/16 Range/Units 05:48 06:02 Sodium 149 H (137-145) mmol/L Chloride 118 H (98-107) mmol/L Carbon Dioxide 21 L (22-30) mmol/L BUN 55 H (7-17) mg/dL Creatinine 1.10 H (0.52-1.04) mg/dL Glucose 122 H (74-99) mg/dL POC Glucose (mg/dL) 129 H (75-99) mg/dL Microbiology - Last 24 Hours (Table) 12/04/16 19:36 Blood Culture - Preliminary Blood No Growth after 120 hours Assessment and Plan Plan: Assessment: #1. Nonoliguric acute kidney injury mostly prerenal secondary to hypotension. Improving. Creatinine was 3.4 on admission and is down to 1.1 today. Monitor for contrast-induced nephropathy as she did receive IV dye on December 07. #2. Hypotension possibly related to anaphylactic reaction. Improved. #3. Metabolic acidosis secondary to acute kidney injury. Improving. #4. Hypernatremia secondary to lack of oral water intake. #5. Hypokalemia from renal potassium wasting with recovering renal function. Magnesium replete. Resolved. #6. Left axillary cellulitis with questionable insect sting. Plan: I will change IV fluids to half-normal saline to be run at 75 mL an hour. Avoid nephrotoxic agents and hypotensive episodes. Encourage oral intake as tolerated. Repeat electrolytes in the morning. Antibiotics per infectious disease recommendations. Continue oral sodium bicarbonate supplementation.
[2016-12-10] MEDS: SODIUM BICARBONATE TAB 650 MG TAB PO SCH ×2 (09:10→21:31)
[2016-12-10] MEDS: SODIUM CHLORIDE 0.45% 1,000 ML IV SCH ×2 (09:11→23:43)
[2016-12-10] MEDS: ASPIRIN 81 MG CHEW PO SCH (09:11)
[2016-12-10] MEDS: CITALOPRAM HYDROBROMIDE 20 MG TAB PO SCH (09:12)
[2016-12-10] MEDS: GABAPENTIN 300 MG CAP PO SCH ×2 (09:12→21:31)
[2016-12-10] MEDS: FAMOTIDINE 20 MG TAB PO SCH (09:12)
[2016-12-10] MEDS: METOPROLOL TARTRATE 25 MG TAB PO SCH ×3 (09:12→21:30)
[2016-12-10] MEDS: LORATADINE 10 MG TAB PO SCH (09:12)
[2016-12-10] MEDS: SENNOSIDES 8.6 MG TAB PO SCH ×2 (09:13→21:31)
--- NOTE | 2016-12-10 11:21 | P.PN ---
Subjective 12/06/16- This is a 61-year-old female who came into emergency department with shortness of breath and generalized weakness that had been developing over the last 3-4 days. Apparently the patient was stung by a bee in her left axilla, the area became extremely itchy with a diffuse reddened rash. The patient states she also shaved her left axilla in the cellulitis developed. The patient became unresponsive and received an EpiPen injection as well as Benadryl with EMS. This patient lives at a shelter. In the emergency room the patient was noted to have a d-dimer of 5.28 so she was also started on heparin drip, which is currently therapeutic. She was also noted to the septic with a lactic acid of 2.5. Urine drug screen was completed and was positive for tricyclic antidepressants and benzodiazepines. She she was admitted to the medical floor and was also given a dose of Ativan. The patient became somnolent with oxygen saturations 49%. Subsequently she was transferred to the ICU. The patient has since been on BiPAP and her oxygen saturations have improved. However throughout the night the patient was hypotensive but maintained her urine output therefore she was given IV boluses which was effective in bringing up her blood pressure. Patient is also on Solu-Medrol, antibiotics and IV Benadryl. Patient is also noted to be acidotic tenderness on IV fluids of D5W with 3 A of bicarb at 50ml/hr. Wound culture of the left axilla has been taken and is presumptive staph aureus. Upon examination the patient's resting in bed on BiPAP she continues to be somewhat somnolent however responds to voice commands slowly. BiPAP settings IPAP of 12 EPAP of 5 FiO2 35% oxygen saturations 98%. Patient also has a history of being mentally challenged and slurs her speech as a baseline due to a deficit of a previous CVA /TIA. 12/08/15- upon examination today the patient's resting up in bed on 3 L of supplemental oxygen. Patient is alert and oriented 1. Patient is less lethargic today than yesterday. Liver the patient still becomes short of breath with exertion or extensive conversation. States labs were reviewed and her white count is now to 10.9, sodium 140 potassium 3.3 chloride 111 carbon dioxide 22 BUN 45 creatinine 1.3. Patient should have a VQ scan once okayed by nephrology. 12/09/15- on examination today the patient is resting up in bed on 2 L of supplemental oxygen. The patient continues to be very sleepy and currently we are investigating her home medication and dosage of Seroquel that she receives at the shelter she attends. Excessive sleepiness could be due to this medication and we will hold at this time. Neuro is also on consults. Patient did have her CT a of the chest yesterday which showed no evidence of pulmonary embolism, interstitial pulmonary infiltrates with some atelectasis at the lung bases and small pleural effusions were noted. It is suggested on the impression this could be due to congestive heart failure. Cardiology is also on consult. Patient's heparin drip could be stopped due to no pulmonary embolism. Patient continues to be short of breath with exertion. hemodynamically she is much better. 12/09/16- the patient was downgraded yesterday from the ICU. Today she is seen on the selective care unit resting up in bed on 2-3 L of supplemental oxygen. She continues to be sleepy however less sleepy than yesterday. She does state she has intermittent shortness of breath with exertion. She denies any cough or congestion. Per the nursing staff the patient has been intermittently taking off her oxygen. The patient has been educated on the importance of keeping the oxygen on at this time. Her cellulitis is slowly improving. Mentation remains about the same. 12/10/16- on examination the patient is not orientated. The patient continuously mumbles and it is unclear whether she is trying to say. The patient's states this is not the patient's baseline. She is awake and can make eye contact, she listens when spoken to however she does not respond to commands. Apparently the patient did have oxygen saturations above 92% earlier this morning therefore she was switched to room air however on examination she is noted to have a decreased oxygen saturation in the 80s so supplemental oxygen is put back on the patient. The patient is known to continue to take her oxygen on and off intermittently. Education has been provided to the patient on importance of keeping her oxygen on at this time however is not clear if the patient is understanding due to her mentation. We will obtain stat ABGs as well as what neurology no about the patient's decline in mentation. Objective - Vital Signs Vital signs: Vital Signs Temp 97.6 F 12/10/16 08:00 Pulse 70 12/10/16 08:34 Resp 20 12/10/16 08:00 BP 132/76 12/10/16 08:00 Pulse Ox 94 L 12/10/16 08:24 Intake & Output 12/09/16 12/10/16 12/10/16 18:59 06:59 18:59 Intake Total 500 Output Total 600 700 Balance -600 -200 Intake: IV 500 0.9 NACL 500 Output: Urine 600 700 Other: Voiding Method Indwelling Catheter Indwelling Catheter - Exam GENERAL EXAM: Awake, slightly restless, in no apparent distress. HEAD: Normocephalic. EYES: Normal reaction of pupils, equal size. Dry eyes NOSE: Clear with pink turbinates. THROAT: No erythema or exudates. NECK: No masses, no JVD. CHEST: No chest wall deformity. LUNGS: Equal air entry with no crackles, wheeze, rhonchi or dullness. Diminished CVS: S1 and S2 normal with no audible mumurs, regular rhythm. ABDOMEN: No hepatosplenomegaly, normal bowel sounds, no guarding or rigidity. EXTREMITIES: No edema noted, pedal pulses palpable. SKIN: Left axilla noted to have an definite indurated area of erythema the area is firm and hot. The small less than 1 cm pustule is noted in the middle of the axilla currently no drainage is seen. However previously the area was draining. Cellulitis improving CENTRAL NERVOUS SYSTEM: No focal deficits, tone is normal in all 4 extremities. - Labs CBC & Chem 7: 12/08/16 05:52 12/10/16 05:48 Labs: Abnormal Lab Results - Last 24 Hours (Table) 12/09/16 12/09/16 12/09/16 Range/Units 11:29 16:51 20:44 Sodium (137-145) mmol/L Chloride (98-107) mmol/L Carbon Dioxide (22-30) mmol/L BUN (7-17) mg/dL Creatinine (0.52-1.04) mg/dL Glucose (74-99) mg/dL POC Glucose (mg/dL) 130 H 134 H 131 H (75-99) mg/dL 12/10/16 12/10/16 Range/Units 05:48 06:02 Sodium 149 H (137-145) mmol/L Chloride 118 H (98-107) mmol/L Carbon Dioxide 21 L (22-30) mmol/L BUN 55 H (7-17) mg/dL Creatinine 1.10 H (0.52-1.04) mg/dL Glucose 122 H (74-99) mg/dL POC Glucose (mg/dL) 129 H (75-99) mg/dL Microbiology - Last 24 Hours (Table) 12/04/16 19:36 Blood Culture - Preliminary Blood No Growth after 120 hours Assessment and Plan Plan: Assessment Anaphylaxis reaction Metabolic acidosis and elevated d-dimer due to severe sepsis, related to staph wound infection and acute renal failure Acute hypoxic respiratory failure, Hypotension Left abscess of the axilla Cellulitis of the left axilla Schizoaffective disorder Anxiety Hypokalemic Morbid obesity Plan We will obtain stat ABGs as well as update neurology on the patient's condition and mentation. Medications have been reviewed and will be continued as ordered. Continue with IV antibiotics, Benadryl and steroids. Replace electrolytes and monitor per protocol. Cultures have come back as MSSA. Antibiotics had been adjusted by infectious disease. Continue with pulmonary hygiene, coughing and deep breathing exercises, and supportive care. Supplemental oxygen or BiPAP to maintain oxygen saturations of 92% or better. Continue nebulizer treatments. GI and DVT prophylaxis. Continue with Neuro, ID , and nephro consults and appreciate recommendations. We will continue to monitor labs/results and adjust treatment as necessary. Further recommendations pending. I performed an examination of the patient and discussed their management with the nurse practitioner. I have reviewed the nurse practitioner's note and agree with the documented findings and plan of care.
[2016-12-10 11:59] LABS: ABG Base Excess -1.5 mmol/L; ABG HCO3 22 mmol/L (21-25); ABG PCO2 29 mmHg (35-45); ABG PH 7.49 (7.35-7.45); ABG PO2 83 mmHg (83-108); ABG TCO2 22 mmol/L (19-24)
[2016-12-10 12:06] LABS: Glucose,Whole Blood 130 mg/dL (75-99)
[2016-12-10] MEDS: CHOLECALCIFEROL 1,000 UNIT TAB PO SCH (12:09)
[2016-12-10] MEDS: CYANOCOBALAMIN 500 MCG TAB PO SCH (12:10)
[2016-12-10] MEDS: VIT A,C & E-LUTEIN-MINERALS 1 EACH TAB PO SCH (12:10)
[2016-12-10 16:45] LABS: Glucose,Whole Blood 143 mg/dL (75-99)
[2016-12-10 20:52] LABS: Glucose,Whole Blood 170 mg/dL (75-99)
[2016-12-10] MEDS: ATORVASTATIN 10 MG TAB PO SCH (21:31)
[2016-12-10 22:34] LABS: Vitamin K 73 pg/mL (80-1160)
[2016-12-11 00:28] LABS: Glucose,Whole Blood 195 mg/dL (75-99)
[2016-12-11 06:10] LABS: Glucose,Whole Blood 201 mg/dL (75-99)
[2016-12-11] MEDS: methylPREDNISolone SOD SUCCI 125 MG/2 ML VIAL IV SCH ×4 (06:36→23:55)
[2016-12-11] MEDS: INSULIN LISPRO (humaLOG) 300 UNIT/3 ML VIAL SQ SCH ×4 (06:36→21:59)
[2016-12-11 06:37] LABS: Basophils % (A) 0 %; CH 31.2; CHCM 31.9; Eosinophils % (A) 0 %; HCT 29.7 % (34.0-46.0); HDW 2.49; HGB 9.6 gm/dL (11.4-16.0); Luc # (Auto) 0.09; Luc % (Auto) 2; Lymphocytes # (A) 0.4 k/uL (1.0-4.8); Lymphocytes % (A) 7 %; MCH 31.8 pg (25.0-35.0); MCHC 32.3 g/dL (31.0-37.0); MCV 98.4 fL (80.0-100.0); Mean Platelet Volume 8.5; Monocytes # (A) 0.1 k/uL (0-1.0); Monocytes % (A) 2 %; Neutrophils # (A) 5.2 k/uL (1.3-7.7); Neutrophils % (A) 90 %; RBC 3.02 m/uL (3.80-5.40); RDW 13.6 % (11.5-15.5); WBC 5.7 k/uL (3.8-10.6); WBC (Perox) 6.11
[2016-12-11 07:24] LABS: Anion Gap 6 mmol/L; Blood Urea Nitrogen 49 mg/dL (7-17); Carbon Dioxide 26 mmol/L (22-30); Chloride 116 mmol/L (98-107); Glucose 178 mg/dL (74-99); Non-African American GFR(MDRD) 57 (>60 ml/min/1.73 sqM); Potassium 4.5 mmol/L (3.5-5.1); Sodium 148 mmol/L (137-145)
[2016-12-11] MEDS: ALBUTEROL NEBULIZED 2.5 MG/3 ML INHALATION PRN ×2 (07:41→19:28)
[2016-12-11] MEDS: BUDESONIDE 0.5 MG/2 ML NEBU INHALATION SCH ×2 (07:41→19:28)
--- NOTE | 2016-12-11 07:46 | P.PN ---
Subjective Patient is seen in follow-up for acute kidney injury. Her baseline creatinine is 1 and was elevated at 3.4 on admission. It is down to 1.0 today. She is nonoliguric. Patient presented with left axillary cellulitis and a questionable insect sting. She was also hypotensive on admission and did receive IV fluids. She is currently maintained on half-normal saline at 75 mL an hour. Hemodynamically she stable. Patient is still quite confused and is not a reliable historian but does seem improved today. Sodium level is a little improved at 148. Vital signs are stable. General: The patient appeared well nourished and normally developed. HEENT: Head exam is unremarkable. Neck is without jugular venous distension. LUNGS: Scattered rhonchi. Breath sounds decreased. HEART: Rate and Rhythm are regular. First and second heart sounds normal. No murmurs, rubs or gallops. ABDOMEN: Abdominal exam reveals normal bowel sounds. Non-tender and non- distended. No evidence of peritonitis. EXTREMITITES: No clubbing, cyanosis, or edema. Objective - Vital Signs Vital signs: Vital Signs Temp 98.2 F 12/11/16 04:57 Pulse 60 12/11/16 07:43 Resp 16 12/11/16 04:57 BP 119/61 12/11/16 04:57 Pulse Ox 96 12/11/16 07:43 Intake & Output 12/10/16 12/11/16 12/11/16 18:59 06:59 18:59 Intake Total 840 Output Total 700 950 Balance 140 -950 Weight 117.5 kg 122.9 kg Intake: IV 600 0.9 NACL 200 Sodium Chloride 0.45% 1, 300 000 ml @ 75 mls/hr IV . [id number] [facility] Rx#:[id number] ceFAZolin 2 gm In Sodium 100 Chloride 0.9% 100 ml @ 100 mls/hr IVPB Q8HR [facility] Rx#:[id number] Oral 240 Output: Urine 700 950 Other: Voiding Method Indwelling Catheter Indwelling Catheter # Bowel Movements 3 1 - Labs CBC & Chem 7: 12/11/16 05:52 12/11/16 05:52 Labs: Abnormal Lab Results - Last 24 Hours (Table) 12/06/16 12/10/16 12/10/16 Range/Units 14:55 11:45 12:04 RBC (3.80-5.40) m/uL Hgb (11.4-16.0) gm/dL Hct (34.0-46.0) % Lymphocytes # (1.0-4.8) k/uL ABG pH 7.49 H (7.35-7.45) ABG pCO2 29 L (35-45) mmHg Sodium (137-145) mmol/L Chloride (98-107) mmol/L BUN (7-17) mg/dL Glucose (74-99) mg/dL POC Glucose (mg/dL) 130 H (75-99) mg/dL Calcium (8.4-10.2) mg/dL Vitamin K 73 L (80-1160) pg/mL 12/10/16 12/10/16 12/11/16 Range/Units 16:43 20:49 00:26 RBC (3.80-5.40) m/uL Hgb (11.4-16.0) gm/dL Hct (34.0-46.0) % Lymphocytes # (1.0-4.8) k/uL ABG pH (7.35-7.45) ABG pCO2 (35-45) mmHg Sodium (137-145) mmol/L Chloride (98-107) mmol/L BUN (7-17) mg/dL Glucose (74-99) mg/dL POC Glucose (mg/dL) 143 H 170 H 195 H (75-99) mg/dL Calcium (8.4-10.2) mg/dL Vitamin K (80-1160) pg/mL 12/11/16 12/11/16 12/11/16 Range/Units 05:52 05:52 06:09 RBC 3.02 L (3.80-5.40) m/uL Hgb 9.6 L (11.4-16.0) gm/dL Hct 29.7 L (34.0-46.0) % Lymphocytes # 0.4 L (1.0-4.8) k/uL ABG pH (7.35-7.45) ABG pCO2 (35-45) mmHg Sodium 148 H (137-145) mmol/L Chloride 116 H (98-107) mmol/L BUN 49 H (7-17) mg/dL Glucose 178 H (74-99) mg/dL POC Glucose (mg/dL) 201 H (75-99) mg/dL Calcium 8.0 L (8.4-10.2) mg/dL Vitamin K (80-1160) pg/mL Microbiology - Last 24 Hours (Table) 12/04/16 19:36 Blood Culture - Final Blood No Growth after 144 hours Assessment and Plan Plan: Assessment: #1. Nonoliguric acute kidney injury mostly prerenal secondary to hypotension. Improving. Creatinine was 3.4 on admission and is down to 1.0 today. Monitor for contrast-induced nephropathy as she did receive IV dye on December 07. #2. Hypotension possibly related to anaphylactic reaction. Improved. #3. Metabolic acidosis secondary to acute kidney injury. Improving. #4. Hypernatremia secondary to lack of oral water intake. #5. Hypokalemia from renal potassium wasting with recovering renal function. Magnesium replete. Resolved. #6. Left axillary cellulitis with questionable insect sting. Plan: I Will increase rate of half-normal saline to be run at 100 mL an hour. Avoid nephrotoxic agents and hypotensive episodes. Encourage oral intake as tolerated. Repeat electrolytes in the morning. Antibiotics per infectious disease recommendations. Discontinue sodium bicarbonate.
[2016-12-11] MEDS: SODIUM CHLORIDE 0.45% 1,000 ML IV SCH ×2 (08:34→09:05)
--- NOTE | 2016-12-11 08:34 | XR ---
EXAMINATION TYPE: XR chest 1V portable DATE OF EXAM: 12/11/2016 COMPARISON: 12/04/2016 HISTORY: Shortness of breath TECHNIQUE: Single frontal view of the chest is obtained. FINDINGS: Postsurgical change overlying the cervical spine. There is left basilar infiltrate and sma ll effusion. Diffuse central interstitial pattern with no pneumothorax. IMPRESSION: 1. Left basilar infiltrate and small effusion with central interstitial pattern correlate for interst itial pneumonitis or venous congestion.
[2016-12-11] MEDS: HEPARIN SODIUM,PORCINE 5,000 UNIT/ML 1 ML VIAL SQ SCH ×3 (08:53→23:55)
[2016-12-11] MEDS: ASPIRIN 81 MG CHEW PO SCH (08:53)
[2016-12-11] MEDS: CITALOPRAM HYDROBROMIDE 20 MG TAB PO SCH (08:53)
[2016-12-11] MEDS: SENNOSIDES 8.6 MG TAB PO SCH ×2 (08:54→21:58)
[2016-12-11] MEDS: GABAPENTIN 300 MG CAP PO SCH ×2 (08:54→21:57)
[2016-12-11] MEDS: LORATADINE 10 MG TAB PO SCH (08:54)
[2016-12-11] MEDS: FAMOTIDINE 20 MG TAB PO SCH ×3 (08:54→22:50)
[2016-12-11] MEDS: METOPROLOL TARTRATE 25 MG TAB PO SCH ×3 (08:54→21:58)
[2016-12-11] MEDS: VIT A,C & E-LUTEIN-MINERALS 1 EACH TAB PO SCH (08:55)
[2016-12-11] MEDS: CHOLECALCIFEROL 1,000 UNIT TAB PO SCH (08:55)
[2016-12-11] MEDS: ceFAZolin 2 GM in SODIUM CHLORIDE 0.9% 100 ML IVPB SCH ×3 (09:05→23:55)
[2016-12-11 11:20] VITALS: BMI 45.1
--- NOTE | 2016-12-11 11:53 | P.PN ---
Subjective 12/06/16- This is a 61-year-old female who came into emergency department with shortness of breath and generalized weakness that had been developing over the last 3-4 days. Apparently the patient was stung by a bee in her left axilla, the area became extremely itchy with a diffuse reddened rash. The patient states she also shaved her left axilla in the cellulitis developed. The patient became unresponsive and received an EpiPen injection as well as Benadryl with EMS. This patient lives at a nursing home. In the emergency room the patient was noted to have a d-dimer of 5.28 so she was also started on heparin drip, which is currently therapeutic. She was also noted to the septic with a lactic acid of 2.5. Urine drug screen was completed and was positive for tricyclic antidepressants and benzodiazepines. She she was admitted to the medical floor and was also given a dose of Ativan. The patient became somnolent with oxygen saturations 49%. Subsequently she was transferred to the ICU. The patient has since been on BiPAP and her oxygen saturations have improved. However throughout the night the patient was hypotensive but maintained her urine output therefore she was given IV boluses which was effective in bringing up her blood pressure. Patient is also on Solu-Medrol, antibiotics and IV Benadryl. Patient is also noted to be acidotic tenderness on IV fluids of D5W with 3 A of bicarb at 50ml/hr. Wound culture of the left axilla has been taken and is presumptive staph aureus. Upon examination the patient's resting in bed on BiPAP she continues to be somewhat somnolent however responds to voice commands slowly. BiPAP settings IPAP of 12 EPAP of 5 FiO2 35% oxygen saturations 98%. Patient also has a history of being mentally challenged and slurs her speech as a baseline due to a deficit of a previous CVA /TIA. 12/08/15- upon examination today the patient's resting up in bed on 3 L of supplemental oxygen. Patient is alert and oriented 1. Patient is less lethargic today than yesterday. Liver the patient still becomes short of breath with exertion or extensive conversation. States labs were reviewed and her white count is now to 10.9, sodium 140 potassium 3.3 chloride 111 carbon dioxide 22 BUN 45 creatinine 1.3. Patient should have a VQ scan once okayed by nephrology. 12/09/15- on examination today the patient is resting up in bed on 2 L of supplemental oxygen. The patient continues to be very sleepy and currently we are investigating her home medication and dosage of Seroquel that she receives at the nursing home she attends. Excessive sleepiness could be due to this medication and we will hold at this time. Neuro is also on consults. Patient did have her CT a of the chest yesterday which showed no evidence of pulmonary embolism, interstitial pulmonary infiltrates with some atelectasis at the lung bases and small pleural effusions were noted. It is suggested on the impression this could be due to congestive heart failure. Cardiology is also on consult. Patient's heparin drip could be stopped due to no pulmonary embolism. Patient continues to be short of breath with exertion. hemodynamically she is much better. 12/09/16- the patient was downgraded yesterday from the ICU. Today she is seen on the selective care unit resting up in bed on 2-3 L of supplemental oxygen. She continues to be sleepy however less sleepy than yesterday. She does state she has intermittent shortness of breath with exertion. She denies any cough or congestion. Per the nursing staff the patient has been intermittently taking off her oxygen. The patient has been educated on the importance of keeping the oxygen on at this time. Her cellulitis is slowly improving. Mentation remains about the same. 12/10/16- on examination the patient is not orientated. The patient continuously mumbles and it is unclear whether she is trying to say. The patient's states this is not the patient's baseline. She is awake and can make eye contact, she listens when spoken to however she does not respond to commands. Apparently the patient did have oxygen saturations above 92% earlier this morning therefore she was switched to room air however on examination she is noted to have a decreased oxygen saturation in the 80s so supplemental oxygen is put back on the patient. The patient is known to continue to take her oxygen on and off intermittently. Education has been provided to the patient on importance of keeping her oxygen on at this time however is not clear if the patient is understanding due to her mentation. We will obtain stat ABGs as well as what neurology no about the patient's decline in mentation. 7/21/17-today and the patient is much more alert, continues with intermittent confusion. I am able to make out what he says speech is much more clear today however she still mumbles on occasion. More dynamically she is stable. Currently she is on 4 L of supplemental oxygen via nasal cannula. Oxygen saturations in the mid 90s. She does respond to commands today. She is keeping her oxygen on today as well. ABGs from yesterday were obtained and were normal. Patient is still being seen by nephrology. Labs and chest x-ray are reviewed. Chest x-ray shows left basilar infiltrate and small effusion with central interstitial pattern correlate for interstitial pneumonitis versus venous congestion. Objective - Vital Signs Vital signs: Vital Signs Temp 98.5 F 12/11/16 09:00 Pulse 81 12/11/16 09:00 Resp 18 12/11/16 09:00 BP 133/63 12/11/16 09:00 Pulse Ox 95 12/11/16 09:00 Intake & Output 12/10/16 12/11/16 12/11/16 18:59 06:59 18:59 Intake Total 840 250 Output Total 700 950 Balance 140 -950 250 Weight 117.5 kg 122.9 kg 122.9 kg Intake: IV 600 0.9 NACL 200 Sodium Chloride 0.45% 1, 300 000 ml @ 75 mls/hr IV . [id number] [facility] Rx#:[id number] ceFAZolin 2 gm In Sodium 100 Chloride 0.9% 100 ml @ 100 mls/hr IVPB Q8HR [facility] Rx#:[id number] Oral 240 250 Output: Urine 700 950 Other: Voiding Method Indwelling Catheter Indwelling Catheter Indwelling Catheter # Bowel Movements 3 1 - Exam GENERAL EXAM: Awake, intermittent confusion noted slightly restless, in no apparent distress. HEAD: Normocephalic. EYES: Normal reaction of pupils, equal size. Dry eyes NOSE: Clear with pink turbinates. THROAT: No erythema or exudates. NECK: No masses, no JVD. CHEST: No chest wall deformity. LUNGS: Equal air entry with no crackles, wheeze, rhonchi or dullness. Diminished CVS: S1 and S2 normal with no audible mumurs, regular rhythm. ABDOMEN: No hepatosplenomegaly, normal bowel sounds, no guarding or rigidity. EXTREMITIES: No edema noted, pedal pulses palpable. SKIN: Left axilla noted to have an definite indurated area of erythema the area is firm and hot. The small less than 1 cm pustule is noted in the middle of the axilla currently no drainage is seen. Cellulitis improving CENTRAL NERVOUS SYSTEM: No focal deficits, tone is normal in all 4 extremities. - Labs CBC & Chem 7: 12/11/16 05:52 12/11/16 05:52 Labs: Abnormal Lab Results - Last 24 Hours (Table) 12/06/16 12/10/16 12/10/16 Range/Units 14:55 11:45 12:04 RBC (3.80-5.40) m/uL Hgb (11.4-16.0) gm/dL Hct (34.0-46.0) % Lymphocytes # (1.0-4.8) k/uL ABG pH 7.49 H (7.35-7.45) ABG pCO2 29 L (35-45) mmHg Sodium (137-145) mmol/L Chloride (98-107) mmol/L BUN (7-17) mg/dL Glucose (74-99) mg/dL POC Glucose (mg/dL) 130 H (75-99) mg/dL Calcium (8.4-10.2) mg/dL Vitamin K 73 L (80-1160) pg/mL 12/10/16 12/10/16 12/11/16 Range/Units 16:43 20:49 00:26 RBC (3.80-5.40) m/uL Hgb (11.4-16.0) gm/dL Hct (34.0-46.0) % Lymphocytes # (1.0-4.8) k/uL ABG pH (7.35-7.45) ABG pCO2 (35-45) mmHg Sodium (137-145) mmol/L Chloride (98-107) mmol/L BUN (7-17) mg/dL Glucose (74-99) mg/dL POC Glucose (mg/dL) 143 H 170 H 195 H (75-99) mg/dL Calcium (8.4-10.2) mg/dL Vitamin K (80-1160) pg/mL 12/11/16 12/11/16 12/11/16 Range/Units 05:52 05:52 06:09 RBC 3.02 L (3.80-5.40) m/uL Hgb 9.6 L (11.4-16.0) gm/dL Hct 29.7 L (34.0-46.0) % Lymphocytes # 0.4 L (1.0-4.8) k/uL ABG pH (7.35-7.45) ABG pCO2 (35-45) mmHg Sodium 148 H (137-145) mmol/L Chloride 116 H (98-107) mmol/L BUN 49 H (7-17) mg/dL Glucose 178 H (74-99) mg/dL POC Glucose (mg/dL) 201 H (75-99) mg/dL Calcium 8.0 L (8.4-10.2) mg/dL Vitamin K (80-1160) pg/mL Microbiology - Last 24 Hours (Table) 12/04/16 19:36 Blood Culture - Final Blood No Growth after 144 hours - Imaging and Cardiology Chest x-ray: report reviewed, image reviewed Assessment and Plan Plan: Assessment Anaphylaxis reaction Metabolic acidosis and elevated d-dimer due to severe sepsis, related to staph wound infection and acute renal failure Acute hypoxic respiratory failure, Hypotension Left abscess of the axilla Cellulitis of the left axilla Schizoaffective disorder Anxiety Hypokalemic Morbid obesity Plan Social work and is currently working on ECF placement, on discharge. Medications have been reviewed and will be continued as ordered. Continue with IV antibiotics, Benadryl and steroids. Replace electrolytes and monitor per protocol. Cultures have come back as MSSA. Antibiotics had been adjusted by infectious disease. Continue with pulmonary hygiene, coughing and deep breathing exercises, and supportive care. Supplemental oxygen or BiPAP to maintain oxygen saturations of 92% or better. Continue nebulizer treatments. GI and DVT prophylaxis. Continue with Neuro, ID, and nephro consults and appreciate recommendations. We will continue to monitor labs/results and adjust treatment as necessary. Further recommendations pending. I performed an examination of the patient and discussed their management with the nurse practitioner. I have reviewed the nurse practitioner's note and agree with the documented findings and plan of care.
[2016-12-11 11:58] LABS: Glucose,Whole Blood 196 mg/dL (75-99)
[2016-12-11 17:07] LABS: Glucose,Whole Blood 140 mg/dL (75-99)
--- NOTE | 2016-12-11 21:48 | P.PN ---
Subjective Principal diagnosis: ALLERGIC reaction Ms. Corey is a 61-year-old patient of visiting physicians Dr. Muro. Patient is resident of a [facility] called [facility]. Patient's chronic stable medical conditions include coronary artery disease with a 50% LAD lesion, GERD, hypertension, hyperlipidemia, schizoaffective disorder, anxiety, peripheral neuropathy and macular degeneration. Patient apparently for 3 days had noticed swelling and redness of the left arm not sure if something can better and presented to ER. Patient was found to be hypotensive with extensive rash and patient is given IV Solu-Medrol IV Benadryl and Pepcid and admitted to the medical floor. Patient became hypotensive and hypoxic was transferred to the intensive care unit with a consultation to critical care and infectious disease. Patient got a definite induration and redness in the left axillary area. Patient does confirm that she does use a razor in the left armpit. Patient was acidotic and was put on a bicarbonate drip patient also found to be in acute renal failure. Patient's condition improved with IV antibiotics. On 12/10/16 - Pt was found to be Hypoxic , so ABG obtained and she was then placed on BiPAP . She is currently on Bipap not in respiratory distress. Review of systems - She states that she is feeling very weak and tired. She denies having any chest pain or cough. No complaints of any abdominal pain nausea vomiting or diarrhea. She has difficulty in breathing . Objective - Vital Signs Vital signs: Vital Signs Vital Signs Temp 97.6 F 12/10/16 08:00 Pulse 70 12/10/16 08:34 Resp 20 12/10/16 08:00 BP 132/76 12/10/16 08:00 Pulse Ox 94 L 12/10/16 08:24 Intake & Output 12/09/16 12/10/16 12/10/16 18:59 06:59 18:59 Intake Total 500 Output Total 600 700 Balance -600 -200 Intake: IV 500 0.9 NACL 500 Output: Urine 600 700 Other: Voiding Method Indwelling Catheter Indwelling Catheter - Exam ENERAL EXAM: Less somnolent today, comfortable in no apparent distress. HEAD: Normocephalic. EYES: Normal reaction of pupils, equal size. Dry eyes NECK: No masses, no JVD. LUNGS: Equal air entry . Diminished BS in all lung doyle. Coarse breath sounds at the lower bases. CVS: S1 and S2 normal with no audible mumurs, regular rhythm. ABDOMEN: No hepatosplenomegaly, normal bowel sounds, no guarding or rigidity. EXTREMITIES: No edema noted, pedal pulses palpable. SKIN: Left axilla noted to have an induration that is firm and hot. A small pustule is noted in the middle of the axilla currently no drainage is seen. CENTRAL NERVOUS SYSTEM: No focal deficits, tone is normal in all 4 extremities. - Labs CBC & Chem 7: 12/11/16 05:52 12/11/16 05:52 Labs: Abnormal Lab Results - Last 24 Hours (Table) 12/06/16 12/11/16 12/11/16 Range/Units 14:55 00:26 05:52 RBC (3.80-5.40) m/uL Hgb (11.4-16.0) gm/dL Hct (34.0-46.0) % Lymphocytes # (1.0-4.8) k/uL Sodium 148 H (137-145) mmol/L Chloride 116 H (98-107) mmol/L BUN 49 H (7-17) mg/dL Glucose 178 H (74-99) mg/dL POC Glucose (mg/dL) 195 H (75-99) mg/dL Calcium 8.0 L (8.4-10.2) mg/dL Vitamin K 73 L (80-1160) pg/mL 12/11/16 12/11/16 12/11/16 Range/Units 05:52 06:09 11:56 RBC 3.02 L (3.80-5.40) m/uL Hgb 9.6 L (11.4-16.0) gm/dL Hct 29.7 L (34.0-46.0) % Lymphocytes # 0.4 L (1.0-4.8) k/uL Sodium (137-145) mmol/L Chloride (98-107) mmol/L BUN (7-17) mg/dL Glucose (74-99) mg/dL POC Glucose (mg/dL) 201 H 196 H (75-99) mg/dL Calcium (8.4-10.2) mg/dL Vitamin K (80-1160) pg/mL 12/11/16 Range/Units 17:04 RBC (3.80-5.40) m/uL Hgb (11.4-16.0) gm/dL Hct (34.0-46.0) % Lymphocytes # (1.0-4.8) k/uL Sodium (137-145) mmol/L Chloride (98-107) mmol/L BUN (7-17) mg/dL Glucose (74-99) mg/dL POC Glucose (mg/dL) 140 H (75-99) mg/dL Calcium (8.4-10.2) mg/dL Vitamin K (80-1160) pg/mL Microbiology - Last 24 Hours (Table) 12/04/16 19:36 Blood Culture - Final Blood No Growth after 144 hours Assessment and Plan Plan: Assessment - Acute Hypoxic respiratory failure - placed on BiPAP - Acute ALLERGIC reaction could be from an insect bite exact cause unknown responded well - Left axillary cellulitis -Acute exacerbation of intermittent asthma causing acute hypoxic respiratory failure -Coronary artery disease with nonobstructive 50% LAD lesion -GERD -Essential hypertension -Hyperlipidemia -Metabolic acidosis -Hyponatremia - hypovolemic hyponatremia -Schizoaffective disorder, chronic -Anxiety disorder and otherwise specified -Peripheral neuropathy cause unknown -Acute metabolic encephalopathy multifactorial -Acute renal failure, nonoliguric probably ATN DUE TO HYPOTENSION CODE STATUS full code PLAN C/w Bi PAP. Patient's blood cultures were positive for MSSA so the antibiotic has been changed to cefazolin. Patient did get a CT for PE today that was negative for PE so the heparin drip was discontinued. Continue with steroids, breathing treatments, incentive spirometry. We'll continue with the rest of her medication regimen. Overall prognosis is guarded.
[2016-12-11 21:55] LABS: Glucose,Whole Blood 154 mg/dL (75-99)
--- NOTE | 2016-12-11 21:55 | P.PN ---
Subjective Principal diagnosis: Generalized weakness 61-year-old female is underlying history of schizophrenia and is cared for in a assisted environment has been ill for approximately 3 days. It is noted by the current available evidence. She does have a caregiver that help with the information admission. She is having difficulties with her left axillary area with some drainage. Then it was noted that she suffered what was thought to be a bee sting on to the left arm area. Developed extensive rash and hives and some shortness of breath. She was treated with Benadryl as well as epinephrine and Solu-Medrol. She is brought to the intensive care unit. She 'was hypotensive and was having difficulty with her speech. Speech however is at its baseline abnormal. She recovered from the hives. Continues to have cellulitis of the left axillary area The patient does respond to simple questions. Seems to be more comfortable today. Denied new symptoms. Doing Less confused able to answer that she is in the hospital. She's in the [facility]. Much improved mental status. Objective - Vital Signs Vital signs: Vital Signs Temp 97.9 F 12/11/16 15:45 Pulse 71 12/11/16 19:42 Resp 18 12/11/16 15:45 BP 151/72 12/11/16 15:45 Pulse Ox 96 12/11/16 15:45 Intake & Output 12/11/16 12/11/16 12/12/16 06:59 18:59 06:59 Intake Total 1105 Output Total 950 600 Balance -950 505 Weight 122.9 kg 122.9 kg Intake: Oral 1105 Output: Urine 950 600 Other: Voiding Method Indwelling Catheter Indwelling Catheter # Bowel Movements 1 1 - Exam 61-year-old woman who appears older than her stated age. Occasionally open eyes to the exam. Occasional responses are noted. HEENT: Anicteric conjunctiva are pink and moist nasal mucosa grossly intact without significant lesions, there is no thrush. Oral mucosa is dry Neck: The neck is supple without significant lymphadenopathy or thyromegaly. Lungs: Good bilateral air entry without significant crackles or wheezing. There is no significant bronchial sounds. There is no egophony or dullness. Heart: Regular rate and rhythm with an audible S1-S2, no S3 no S4. There is no significant murmur click or rub, PMI was nondisplaced. Abdomen: Positive bowel sounds soft and nontender without palpable masses or organomegaly. There was no guarding or rebound. Extremities: The upper extremities have excellent pulses they are symmetric, no significant petechiae or telangiectasia. No splinter hemorrhages were noted. The left axillary area is evidence of the distinct pattern of erythema as well as a pustule at the midpoint of the axilla. There is no further purulent drainage at this time. The lower extremities are free from significant lesions the peripheral pulses were 2+ and symmetric. Neuro: Arousable mproved mental status answering simple - Labs CBC & Chem 7: 12/11/16 05:52 12/11/16 05:52 Labs: Abnormal Lab Results - Last 24 Hours (Table) 12/06/16 12/11/16 12/11/16 Range/Units 14:55 00:26 05:52 RBC (3.80-5.40) m/uL Hgb (11.4-16.0) gm/dL Hct (34.0-46.0) % Lymphocytes # (1.0-4.8) k/uL Sodium 148 H (137-145) mmol/L Chloride 116 H (98-107) mmol/L BUN 49 H (7-17) mg/dL Glucose 178 H (74-99) mg/dL POC Glucose (mg/dL) 195 H (75-99) mg/dL Calcium 8.0 L (8.4-10.2) mg/dL Vitamin K 73 L (80-1160) pg/mL 12/11/16 12/11/16 12/11/16 Range/Units 05:52 06:09 11:56 RBC 3.02 L (3.80-5.40) m/uL Hgb 9.6 L (11.4-16.0) gm/dL Hct 29.7 L (34.0-46.0) % Lymphocytes # 0.4 L (1.0-4.8) k/uL Sodium (137-145) mmol/L Chloride (98-107) mmol/L BUN (7-17) mg/dL Glucose (74-99) mg/dL POC Glucose (mg/dL) 201 H 196 H (75-99) mg/dL Calcium (8.4-10.2) mg/dL Vitamin K (80-1160) pg/mL 07/21/17 Range/Units 17:04 RBC (3.80-5.40) m/uL Hgb (11.4-16.0) gm/dL Hct (34.0-46.0) % Lymphocytes # (1.0-4.8) k/uL Sodium (137-145) mmol/L Chloride (98-107) mmol/L BUN (7-17) mg/dL Glucose (74-99) mg/dL POC Glucose (mg/dL) 140 H (75-99) mg/dL Calcium (8.4-10.2) mg/dL Vitamin K (80-1160) pg/mL Microbiology - Last 24 Hours (Table) 12/04/16 19:36 Blood Culture - Final Blood No Growth after 144 hours Laboratory Results WBC 5.7 k/uL (3.8-10.6) 12/11/16 05:52 RBC 3.02 m/uL (3.80-5.40) L 12/11/16 05:52 Hgb 9.6 gm/dL (11.4-16.0) L 12/11/16 05:52 Hct 29.7 % (34.0-46.0) L 12/11/16 05:52 MCV 98.4 fL (80.0-100.0) 12/11/16 05:52 MCH 31.8 pg (25.0-35.0) 12/11/16 05:52 MCHC 32.3 g/dL (31.0-37.0) 12/11/16 05:52 RDW 13.6 % (11.5-15.5) 12/11/16 05:52 Plt Count 215 k/uL (150-450) 12/11/16 05:52 Neutrophils % 90 % 12/11/16 05:52 Neutrophils % (Manual) 78.0 % 12/07/16 06:43 Band Neutrophils % 16.5 % 12/07/16 06:43 Lymphocytes % 7 % 12/11/16 05:52 Lymphocytes % (Manual) 4.0 % 12/07/16 06:43 Monocytes % 2 % 12/11/16 05:52 Monocytes % (Manual) 1.0 % 12/07/16 06:43 Eosinophils % 0 % 12/11/16 05:52 Eosinophils % (Manual) 0.5 % 12/06/16 04:25 Basophils % 0 % 12/11/16 05:52 Metamyelocytes % 1.0 % 12/06/16 04:25 Myelocytes % 0.5 % 12/07/16 06:43 Neutrophils # 5.2 k/uL (1.3-7.7) 12/11/16 05:52 Neutrophils # (Manual) 10.3 k/uL (1.3-7.7) H 12/07/16 06:43 Lymphocytes # 0.4 k/uL (1.0-4.8) L 12/11/16 05:52 Lymphocytes # (Manual) 0.4 k/uL (1.0-4.8) L 12/07/16 06:43 Monocytes # 0.1 k/uL (0-1.0) 12/11/16 05:52 Monocytes # (Manual) 0.1 k/uL (0-1.0) 12/07/16 06:43 Eosinophils # 0.0 k/uL (0-0.7) 12/11/16 05:52 Eosinophils # (Manual) 0.0 k/uL (0-0.7) 12/06/16 04:25 Basophils # 0.0 k/uL (0-0.2) 12/11/16 05:52 Nucleated RBCs 0 /100 WBC (0-0) 12/07/16 06:43 Manual Slide Review Performed 12/08/16 05:52 Toxic Vacuolation Present 12/06/16 04:25 Polychromasia Present 12/06/16 04:25 Poikilocytosis (manual Present 12/08/16 05:52 Anisocytosis (manual) Present 12/06/16 04:25 Crenated Cell Present 12/06/16 04:25 ESR 110 mm/hr (0-20) H 12/06/16 14:55 PT 10.6 sec (9.0-12.0) 12/04/16 19:36 INR 1.0 (<1.2) 12/04/16 19:36 APTT 34.1 sec (22.0-30.0) H 12/08/16 05:52 D-Dimer 5.28 mg/L FEU (<0.60) H 12/04/16 19:36 Sample Site [facility] 12/10/16 11:45 ABG pH 7.49 (7.35-7.45) H 12/10/16 11:45 ABG pCO2 29 mmHg (35-45) L 12/10/16 11:45 ABG pO2 83 mmHg (83-108) 12/10/16 11:45 ABG HCO3 22 mmol/L (21-25) 12/10/16 11:45 ABG Total CO2 22 mmol/L (19-24) 12/10/16 11:45 ABG O2 Saturation 97.0 % (94-97) 12/10/16 11:45 ABG Base Excess -1.5 mmol/L 12/10/16 11:45 ABG Hematocrit 34 % (34.0-46.0) 12/05/16 11:45 FiO2 32 % 12/10/16 11:45 Sodium 148 mmol/L (137-145) H 12/11/16 05:52 Potassium 4.5 mmol/L (3.5-5.1) 12/11/16 05:52 Chloride 116 mmol/L (98-107) H 12/11/16 05:52 Carbon Dioxide 26 mmol/L (22-30) 12/11/16 05:52 Anion Gap 6 mmol/L 12/11/16 05:52 BUN 49 mg/dL (7-17) H 12/11/16 05:52 Creatinine 1.00 mg/dL (0.52-1.04) 12/11/16 05:52 Est GFR (MDRD) Af Amer >60 (>60 ml/min/1.73 sqM) 12/11/16 05:52 Est GFR (MDRD) Non-Af 57 (>60 ml/min/1.73 sqM) 12/11/16 05:52 Glucose 178 mg/dL (74-99) H 12/11/16 05:52 POC Glucose (mg/dL) 140 mg/dL (75-99) H 12/11/16 17:04 POC Glu Compliance Mgr ID Tanja Colbert 12/11/16 17:[address] Glu mg/dL 128 mg/dL 12/05/16 04:12 Hemoglobin A1c 6.1 % (4.2-6.1) 12/05/16 04:12 Lactic Ac Sepsis Rflx Y 12/04/16 20:23 Plasma Lactic Acid Britton 2.0 mmol/L (0.7-2.0) 12/05/16 00:02 Calcium 8.0 mg/dL (8.4-10.2) L 12/11/16 05:52 Phosphorus 3.0 mg/dL (2.5-4.5) 12/07/16 06:43 Magnesium 2.3 mg/dL (1.6-2.3) 12/08/16 05:52 Total Bilirubin 0.5 mg/dL (0.2-1.3) 12/08/16 05:52 AST 28 U/L (14-36) 12/08/16 05:52 ALT 38 U/L (9-52) 12/08/16 05:52 Alkaline Phosphatase 79 U/L (38-126) 12/08/16 05:52 Total Creatine Kinase 504 U/L (30-135) H 12/05/16 07:24 CK-MB (CK-2) 7.8 ng/mL (0.0-2.4) H* 12/05/16 07:24 CK-MB (CK-2) Rel Index 1.5 12/05/16 07:24 Troponin I <0.012 ng/mL (0.000-0.034) 12/05/16 07:24 C-Reactive Protein 401.6 mg/L (<10.0) H 12/06/16 14:55 NT-Pro-B Natriuret Pep 8270 pg/mL 12/04/16 19:36 Total Protein 4.6 g/dL (6.3-8.2) L 12/08/16 05:52 Albumin 2.1 g/dL (3.5-5.0) L 12/08/16 05:52 Vitamin B12 >1000 pg/mL (239-931) H 12/06/16 14:55 Vit D 1,25-Dihydroxy 88 pg/mL (20 - 79) H 12/06/16 14:55 Alpha-Tocopherol 1512 ug/dL (500-1800) 12/06/16 14:55 Vitamin K 73 pg/mL (80-1160) L 12/06/16 14:55 Urine Color Dark Brown 12/04/16 20:18 Urine Appearance Cloudy (Clear) H 12/04/16 20:18 Urine pH 5.0 (5.0-8.0) 12/04/16 20:18 Ur Specific Homer 1.018 (1.001-1.035) 12/04/16 20:18 Urine Protein 1+ (Negative) H 12/04/16 20:18 Urine Glucose (UA) Negative (Negative) 12/04/16 20:18 Urine Ketones Negative (Negative) 12/04/16 20:18 Urine Blood Negative (Negative) 12/04/16 20:18 Urine Nitrite Negative (Negative) 12/04/16 20:18 Urine Bilirubin 1+ (Negative) H 12/04/16 20:18 Urine Urobilinogen 4.0 mg/dL (<2.0) 12/04/16 20:18 Ur Leukocyte Esterase Negative (Negative) 12/04/16 20:18 Urine RBC 1 /hpf (0-5) 12/04/16 20:18 Urine WBC 3 /hpf (0-5) 12/04/16 20:18 Urine Bacteria Rare /hpf (None) H 12/04/16 20:18 Hyaline Casts 4 /lpf (0-2) H 12/04/16 20:18 Urine Yeast (Budding) Few /hpf (None) H 12/04/16 20:18 Random Vancomycin 6.2 ug/mL 12/07/16 06:43 Urine Opiates Screen Not Detected (NotDetected) 12/04/16 20:18 Ur Oxycodone Screen Not Detected (NotDetected) 12/04/16 20:18 Urine Methadone Screen Not Detected (NotDetected) 12/04/16 20:18 Ur Propoxyphene Screen Not Detected (NotDetected) 12/04/16 20:18 Ur Barbiturates Screen Not Detected (NotDetected) 12/04/16 20:18 U Tricyclic Antidepress Detected (NotDetected) H 12/04/16 20:18 Ur Phencyclidine Scrn Not Detected (NotDetected) 12/04/16 20:18 Ur Amphetamines Screen Not Detected (NotDetected) 12/04/16 20:18 U Methamphetamines Scrn Not Detected (NotDetected) 12/04/16 20:18 U Benzodiazepines Scrn Detected (NotDetected) H 12/04/16 20:18 Urine Cocaine Screen Not Detected (NotDetected) 12/04/16 20:18 U Marijuana (THC) Screen Not Detected (NotDetected) 12/04/16 20:18 JANAK Antibody <5 IU/mL (<5) 12/06/16 14:55 Microbiology 12/04/16 19:36 Blood Blood Culture - Final No Growth after 144 hours 12/04/16 21:30 Axilla - Left Gram Stain - Final 12/04/16 21:30 Axilla - Left Wound Culture - Final Staphylococcus aureus 12/04/16 20:18 Urine,Catheterized Urine Culture - Final Assessment and Plan (1) Anaphylactic reaction Status: Acute (2) Abscess of axilla, left Narrative/Plan: 61-year-old female presents from her shelter with some increasing weakness. Admission without evidence of sepsis apparently in the base of the significant cellulitis and abscess to her left axillary area. She hasn't had the significant hives and swelling responded well to intervention with Benadryl , epinephrine and steroids. She apparently is improved from her admission. The extensive acidosis was noted and is being corrected. Antibiotic therapy was initiated with vancomycin and ampicillin sulbactam. Given her acute renal failure we'll avoid further doses of vancomycin in utilize Ceftaroline was to give coverage for MRSA as well as staph and strep which we, pathogens of the axillary area. Continue ongoing supportive care. Dry dressing for the drainage. Cultures in process. The patient is now improved. Cultures have come back as MSSA. Ceftaroline was transitioned to Ancef 2 g IVPB back every 8 hours given her marked improved renal failure. Continue for now. Her acidosis is generally resolved. Overall she is improving. With the improved renal function CT angiogram has been performed without evidence of a pulmonary embolus. With negative blood cultures will not plan for outpatient intravenous antibiotic therapy. the axillary areas improving. Status: Acute
[2016-12-11] MEDS: ATORVASTATIN 10 MG TAB PO SCH (21:58)
--- NOTE | 2016-12-12 01:06 | P.PN ---
Subjective Principal diagnosis: ALLERGIC reaction Ms. Corey is a 61-year-old patient of visiting physicians Dr. Muro. Patient is resident of a [facility] called [facility]. Patient's chronic stable medical conditions include coronary artery disease with a 50% LAD lesion, GERD, hypertension, hyperlipidemia, schizoaffective disorder, anxiety, peripheral neuropathy and macular degeneration. Patient apparently for 3 days had noticed swelling and redness of the left arm not sure if something can better and presented to ER. Patient was found to be hypotensive with extensive rash and patient is given IV Solu-Medrol IV Benadryl and Pepcid and admitted to the medical floor. Patient became hypotensive and hypoxic was transferred to the intensive care unit with a consultation to critical care and infectious disease. Patient got a definite induration and redness in the left axillary area. Patient does confirm that she does use a razor in the left armpit. Patient was acidotic and was put on a bicarbonate drip patient also found to be in acute renal failure. Patient's condition improved with IV antibiotics. On 12/10/16 - Pt was found to be Hypoxic , so ABG obtained and she was then placed on BiPAP . She is currently on Bipap not in respiratory distress. On 12/11/16 Pt.s respiratory status much improved. saturating well on NC. was able to answer. no fever/chils. no overnight issues. Review of systems - She states that she is feeling very weak and tired. She denies having any chest pain or cough. No complaints of any abdominal pain nausea vomiting or diarrhea. She has difficulty in breathing . Objective - Vital Signs Vital signs: Vital Signs Temp 97.9 F 12/11/16 15:45 Pulse 71 12/11/16 19:42 Resp 18 12/11/16 15:45 BP 151/72 12/11/16 15:45 Pulse Ox 96 12/11/16 15:45 Intake & Output 12/11/16 12/11/16 12/12/16 06:59 18:59 06:59 Intake Total 1105 Output Total 950 600 Balance -950 505 Weight 122.9 kg 122.9 kg Intake: Oral 1105 Output: Urine 950 600 Other: Voiding Method Indwelling Catheter Indwelling Catheter # Bowel Movements 1 1 - Exam ENERAL EXAM: Less somnolent today, comfortable in no apparent distress. HEAD: Normocephalic. EYES: Normal reaction of pupils, equal size. Dry eyes NECK: No masses, no JVD. LUNGS: Equal air entry . Diminished BS in all lung doyle. Coarse breath sounds at the lower bases. CVS: S1 and S2 normal with no audible mumurs, regular rhythm. ABDOMEN: No hepatosplenomegaly, normal bowel sounds, no guarding or rigidity. EXTREMITIES: No edema noted, pedal pulses palpable. SKIN: Left axilla noted to have an induration that is firm and hot. A small pustule is noted in the middle of the axilla currently no drainage is seen. CENTRAL NERVOUS SYSTEM: No focal deficits, tone is normal in all 4 extremities. - Labs CBC & Chem 7: 12/11/16 05:52 12/11/16 05:52 Labs: Abnormal Lab Results - Last 24 Hours (Table) 12/11/16 12/11/16 12/11/16 Range/Units 00:26 05:52 05:52 RBC 3.02 L (3.80-5.40) m/uL Hgb 9.6 L (11.4-16.0) gm/dL Hct 29.7 L (34.0-46.0) % Lymphocytes # 0.4 L (1.0-4.8) k/uL Sodium 148 H (137-145) mmol/L Chloride 116 H (98-107) mmol/L BUN 49 H (7-17) mg/dL Glucose 178 H (74-99) mg/dL POC Glucose (mg/dL) 195 H (75-99) mg/dL Calcium 8.0 L (8.4-10.2) mg/dL 12/11/16 12/11/16 12/11/16 Range/Units 06:09 11:56 17:04 RBC (3.80-5.40) m/uL Hgb (11.4-16.0) gm/dL Hct (34.0-46.0) % Lymphocytes # (1.0-4.8) k/uL Sodium (137-145) mmol/L Chloride (98-107) mmol/L BUN (7-17) mg/dL Glucose (74-99) mg/dL POC Glucose (mg/dL) 201 H 196 H 140 H (75-99) mg/dL Calcium (8.4-10.2) mg/dL 12/11/16 Range/Units 21:38 RBC (3.80-5.40) m/uL Hgb (11.4-16.0) gm/dL Hct (34.0-46.0) % Lymphocytes # (1.0-4.8) k/uL Sodium (137-145) mmol/L Chloride (98-107) mmol/L BUN (7-17) mg/dL Glucose (74-99) mg/dL POC Glucose (mg/dL) 154 H (75-99) mg/dL Calcium (8.4-10.2) mg/dL Microbiology - Last 24 Hours (Table) 12/04/16 19:36 Blood Culture - Final Blood No Growth after 144 hours Assessment and Plan Plan: Assessment - Acute Hypoxic respiratory failure - resolved . was placed on BiPAP. on NC now. - Acute ALLERGIC reaction could be from an insect bite exact cause unknown responded well - Left axillary cellulitis -Acute exacerbation of intermittent asthma causing acute hypoxic respiratory failure -Coronary artery disease with non-obstructive 50% LAD lesion -GERD -Essential hypertension -Hyperlipidemia -Metabolic acidosis -Hyponatremia - hypovolemic hyponatremia -Schizoaffective disorder, chronic -Anxiety disorder and otherwise specified -Peripheral neuropathy cause unknown -Acute metabolic encephalopathy multifactorial -Acute renal failure, nonoliguric probably ATN DUE TO HYPOTENSION CODE STATUS full code PLAN -Patient's blood cultures were positive for MSSA so the antibiotic has been changed to cefazolin. - Continue with steroids, breathing treatments, incentive spirometry. We'll continue with the rest of her medication regimen. Overall prognosis is guarded. Awaiting final abx recommendations. possible ECF transfer. Time with Patient: Greater than 30
[2016-12-12] MEDS: SODIUM CHLORIDE 0.45% 1,000 ML IV SCH ×2 (03:47→15:40)
[2016-12-12] MEDS: CALCIUM CARBONATE 500 MG CHEWABLE PO PRN ×2 (04:18→13:08)
[2016-12-12] MEDS: methylPREDNISolone SOD SUCCI 125 MG/2 ML VIAL IV SCH ×3 (06:02→18:05)
[2016-12-12 07:49] LABS: Basophils % (A) 0 %; CH 31.7; Eosinophils % (A) 0 %; HCT 31.8 % (34.0-46.0); HDW 2.32; HGB 10.1 gm/dL (11.4-16.0); Hypochromasia Slight; Luc # (Auto) 0.07; Luc % (Auto) 1; Lymphocytes # (A) 0.4 k/uL (1.0-4.8); Lymphocytes % (A) 6 %; MCH 32.7 pg (25.0-35.0); MCHC 31.9 g/dL (31.0-37.0); MCV 102.6 fL (80.0-100.0); Macrocytosis Slight; Mean Platelet Volume 9.3; Monocytes # (A) 0.2 k/uL (0-1.0); Monocytes % (A) 3 %; Neutrophils # (A) 6.6 k/uL (1.3-7.7); Neutrophils % (A) 90 %; RDW 14.3 % (11.5-15.5); WBC 7.3 k/uL (3.8-10.6); WBC (Perox) 7.15
[2016-12-12 08:04] LABS: Anion Gap 6 mmol/L; Blood Urea Nitrogen 39 mg/dL (7-17); Carbon Dioxide 27 mmol/L (22-30); Chloride 109 mmol/L (98-107); Glucose 111 mg/dL (74-99); Non-African American GFR(MDRD) >60 (>60 ml/min/1.73 sqM); Potassium 4.4 mmol/L (3.5-5.1); Sodium 142 mmol/L (137-145)
[2016-12-12] MEDS: HEPARIN SODIUM,PORCINE 5,000 UNIT/ML 1 ML VIAL SQ SCH ×3 (08:12→23:25)
[2016-12-12] MEDS: INSULIN LISPRO (humaLOG) 300 UNIT/3 ML VIAL SQ SCH ×4 (08:12→21:25)
[2016-12-12] MEDS: ASPIRIN 81 MG CHEW PO SCH (08:13)
[2016-12-12] MEDS: GABAPENTIN 300 MG CAP PO SCH ×2 (08:13→21:25)
[2016-12-12] MEDS: LORATADINE 10 MG TAB PO SCH (08:13)
[2016-12-12] MEDS: FAMOTIDINE 20 MG TAB PO SCH ×2 (08:13→21:26)
[2016-12-12] MEDS: CITALOPRAM HYDROBROMIDE 20 MG TAB PO SCH (08:13)
[2016-12-12] MEDS: SENNOSIDES 8.6 MG TAB PO SCH ×2 (08:14→21:25)
[2016-12-12] MEDS: METOPROLOL TARTRATE 25 MG TAB PO SCH ×3 (08:14→21:25)
[2016-12-12 08:16] LABS: Glucose,Whole Blood 122 mg/dL (75-99)
[2016-12-12] MEDS: BUDESONIDE 0.5 MG/2 ML NEBU INHALATION SCH ×2 (09:06→20:11)
[2016-12-12] MEDS: ceFAZolin 2 GM in SODIUM CHLORIDE 0.9% 100 ML IVPB SCH ×3 (09:26→23:25)
[2016-12-12] MEDS: CYANOCOBALAMIN 500 MCG TAB PO SCH (11:56)
[2016-12-12] MEDS: CHOLECALCIFEROL 1,000 UNIT TAB PO SCH (11:56)
[2016-12-12] MEDS: VIT A,C & E-LUTEIN-MINERALS 1 EACH TAB PO SCH (11:57)
--- NOTE | 2016-12-12 12:11 | P.PN ---
Subjective 12/06/16- This is a 61-year-old female who came into emergency department with shortness of breath and generalized weakness that had been developing over the last 3-4 days. Apparently the patient was stung by a bee in her left axilla, the area became extremely itchy with a diffuse reddened rash. The patient states she also shaved her left axilla in the cellulitis developed. The patient became unresponsive and received an EpiPen injection as well as Benadryl with EMS. This patient lives at a longterm. In the emergency room the patient was noted to have a d-dimer of 5.28 so she was also started on heparin drip, which is currently therapeutic. She was also noted to the septic with a lactic acid of 2.5. Urine drug screen was completed and was positive for tricyclic antidepressants and benzodiazepines. She she was admitted to the medical floor and was also given a dose of Ativan. The patient became somnolent with oxygen saturations 49%. Subsequently she was transferred to the ICU. The patient has since been on BiPAP and her oxygen saturations have improved. However throughout the night the patient was hypotensive but maintained her urine output therefore she was given IV boluses which was effective in bringing up her blood pressure. Patient is also on Solu-Medrol, antibiotics and IV Benadryl. Patient is also noted to be acidotic tenderness on IV fluids of D5W with 3 A of bicarb at 50ml/hr. Wound culture of the left axilla has been taken and is presumptive staph aureus. Upon examination the patient's resting in bed on BiPAP she continues to be somewhat somnolent however responds to voice commands slowly. BiPAP settings IPAP of 12 EPAP of 5 FiO2 35% oxygen saturations 98%. Patient also has a history of being mentally challenged and slurs her speech as a baseline due to a deficit of a previous CVA /TIA. 12/08/15- upon examination today the patient's resting up in bed on 3 L of supplemental oxygen. Patient is alert and oriented 1. Patient is less lethargic today than yesterday. Liver the patient still becomes short of breath with exertion or extensive conversation. States labs were reviewed and her white count is now to 10.9, sodium 140 potassium 3.3 chloride 111 carbon dioxide 22 BUN 45 creatinine 1.3. Patient should have a VQ scan once okayed by nephrology. 12/09/15- on examination today the patient is resting up in bed on 2 L of supplemental oxygen. The patient continues to be very sleepy and currently we are investigating her home medication and dosage of Seroquel that she receives at the longterm she attends. Excessive sleepiness could be due to this medication and we will hold at this time. Neuro is also on consults. Patient did have her CT a of the chest yesterday which showed no evidence of pulmonary embolism, interstitial pulmonary infiltrates with some atelectasis at the lung bases and small pleural effusions were noted. It is suggested on the impression this could be due to congestive heart failure. Cardiology is also on consult. Patient's heparin drip could be stopped due to no pulmonary embolism. Patient continues to be short of breath with exertion. hemodynamically she is much better. 12/09/16- the patient was downgraded yesterday from the ICU. Today she is seen on the selective care unit resting up in bed on 2-3 L of supplemental oxygen. She continues to be sleepy however less sleepy than yesterday. She does state she has intermittent shortness of breath with exertion. She denies any cough or congestion. Per the nursing staff the patient has been intermittently taking off her oxygen. The patient has been educated on the importance of keeping the oxygen on at this time. Her cellulitis is slowly improving. Mentation remains about the same. 12/10/16- on examination the patient is not orientated. The patient continuously mumbles and it is unclear whether she is trying to say. The patient's states this is not the patient's baseline. She is awake and can make eye contact, she listens when spoken to however she does not respond to commands. Apparently the patient did have oxygen saturations above 92% earlier this morning therefore she was switched to room air however on examination she is noted to have a decreased oxygen saturation in the 80s so supplemental oxygen is put back on the patient. The patient is known to continue to take her oxygen on and off intermittently. Education has been provided to the patient on importance of keeping her oxygen on at this time however is not clear if the patient is understanding due to her mentation. We will obtain stat ABGs as well as what neurology no about the patient's decline in mentation. 7/21/17-today and the patient is much more alert, continues with intermittent confusion. I am able to make out what he says speech is much more clear today however she still mumbles on occasion. More dynamically she is stable. Currently she is on 4 L of supplemental oxygen via nasal cannula. Oxygen saturations in the mid 90s. She does respond to commands today. She is keeping her oxygen on today as well. ABGs from yesterday were obtained and were normal. Patient is still being seen by nephrology. Labs and chest x-ray are reviewed. Chest x-ray shows left basilar infiltrate and small effusion with central interstitial pattern correlate for interstitial pneumonitis versus venous congestion. 12/10 217 patient seen and evaluated examined today she is awake but intermittently confused as [facility] however continued to require supplemental oxygen oxygen saturation has been stable limited data reviewed radiographic studies reviewed as well Objective - Vital Signs Vital signs: Vital Signs Temp 97.6 F 12/12/16 07:00 Pulse 72 12/12/16 09:19 Resp 17 12/12/16 07:00 BP 148/74 12/12/16 07:00 Pulse Ox 96 12/12/16 00:00 Intake & Output 12/11/16 12/12/16 12/12/16 18:59 06:59 18:59 Intake Total 1105 800 Output Total 600 925 Balance 505 -125 Weight 122.9 kg Intake: IV 800 Sodium Chloride 0.45% 1, 700 000 ml @ 100 mls/hr IV . Q10H [facility]ADA Rx#:[id number] ceFAZolin 2 gm In Sodium 100 Chloride 0.9% 100 ml @ 100 mls/hr IVPB Q8HR [facility]ADA Rx#:[id number] Oral 1105 Output: Urine 600 925 Other: Voiding Method Indwelling Catheter Indwelling Catheter Indwelling Catheter # Bowel Movements 1 - Exam GENERAL EXAM: Awake, intermittent confusion noted slightly restless, in no apparent distress. HEAD: Normocephalic. EYES: Normal reaction of pupils, equal size. Dry eyes NOSE: Clear with pink turbinates. THROAT: No erythema or exudates. NECK: No masses, no JVD. CHEST: No chest wall deformity. LUNGS: Equal air entry with no crackles, wheeze, rhonchi or dullness. Diminished CVS: S1 and S2 normal with no audible mumurs, regular rhythm. ABDOMEN: No hepatosplenomegaly, normal bowel sounds, no guarding or rigidity. EXTREMITIES: No edema noted, pedal pulses palpable. SKIN: Left axilla noted to have an definite indurated area of erythema the area is firm and hot. The small less than 1 cm pustule is noted in the middle of the axilla currently no drainage is seen. Cellulitis improving CENTRAL NERVOUS SYSTEM: No focal deficits, tone is normal in all 4 extremities. - Labs CBC & Chem 7: 12/12/16 07:00 12/12/16 07:00 Labs: Abnormal Lab Results - Last 24 Hours (Table) 12/11/16 12/11/16 12/12/16 Range/Units 17:04 21:38 07:00 RBC (3.80-5.40) m/uL Hgb (11.4-16.0) gm/dL Hct (34.0-46.0) % MCV (80.0-100.0) fL Lymphocytes # (1.0-4.8) k/uL Chloride 109 H (98-107) mmol/L BUN 39 H (7-17) mg/dL Glucose 111 H (74-99) mg/dL POC Glucose (mg/dL) 140 H 154 H (75-99) mg/dL Calcium 8.0 L (8.4-10.2) mg/dL 12/12/16 12/12/16 Range/Units 07:00 08:09 RBC 3.10 L (3.80-5.40) m/uL Hgb 10.1 L (11.4-16.0) gm/dL Hct 31.8 L (34.0-46.0) % MCV 102.6 H (80.0-100.0) fL Lymphocytes # 0.4 L (1.0-4.8) k/uL Chloride (98-107) mmol/L BUN (7-17) mg/dL Glucose (74-99) mg/dL POC Glucose (mg/dL) 122 H (75-99) mg/dL Calcium (8.4-10.2) mg/dL Assessment and Plan Plan: Assessment Anaphylaxis reaction, related to bee sting Metabolic acidosis and elevated d-dimer due to severe sepsis, related to staph wound infection and acute renal failure Acute hypoxic respiratory failure, Hypotension Left abscess of the axilla, related to above and bee sting Cellulitis of the left axilla Schizoaffective disorder Anxiety Hypokalemic Morbid obesity Plan As noted previously, Social work and is currently working on ECF placement, on discharge. Medications have been reviewed and will be continued as ordered. Continue with IV antibiotics, Benadryl and steroids. Replace electrolytes and monitor per protocol. Cultures have come back as MSSA. Antibiotics had been adjusted by infectious disease. Continue with pulmonary hygiene, coughing and deep breathing exercises, and supportive care. Supplemental oxygen or BiPAP to maintain oxygen saturations of 92% or better. Continue nebulizer treatments. GI and DVT prophylaxis. She will likely need a polysomnogram an outpatient basis Continue with Neuro, ID, and nephro consults and appreciate recommendations. We will continue to monitor labs/results and adjust treatment as necessary. Further recommendations pending.
[2016-12-12 12:36] LABS: Glucose,Whole Blood 112 mg/dL (75-99)
[2016-12-12 18:07] LABS: Glucose,Whole Blood 138 mg/dL (75-99)
--- NOTE | 2016-12-12 19:28 | P.PN ---
Subjective Ms. Corey is a 61-year-old patient of visiting physicians Dr. Muro. Patient is resident of a [facility] called [facility]. Patient's chronic stable medical conditions include coronary artery disease with a 50% LAD lesion, GERD, hypertension, hyperlipidemia, schizoaffective disorder, anxiety, peripheral neuropathy and macular degeneration. Patient apparently for 3 days had noticed swelling and redness of the left arm not sure if something can better and presented to ER. Patient was found to be hypotensive with extensive rash and patient is given IV Solu-Medrol IV Benadryl and Pepcid and admitted to the medical floor. Patient became hypotensive and hypoxic was transferred to the intensive care unit with a consultation to critical care and infectious disease. Patient got a definite induration and redness in the left axillary area. Patient does confirm that she does use a razor in the left armpit. Patient was acidotic and was put on a bicarbonate drip patient also found to be in acute renal failure. Patient's condition improved with IV antibiotics. On 12/10/16 - Pt was found to be Hypoxic , so ABG obtained and she was then placed on BiPAP . She is currently on Bipap not in respiratory distress. On 12/11/16 Pt.s respiratory status much improved. saturating well on NC. was able to answer. no fever/chils. no overnight issues. Review of systems - She states that she is feeling very weak and tired. She denies having any chest pain or cough. No complaints of any abdominal pain nausea vomiting or diarrhea. She has difficulty in breathing . 12/12/16 states that she feels more cloudy today no fevers, chills, nausea, vomiting, diarrhea reported discharge from her axilla is reported - Exam GENERAL EXAM: Less somnolent today, comfortable in no apparent distress. HEAD: Normocephalic. EYES: Normal reaction of pupils, equal size. Dry eyes NECK: No masses, no JVD. LUNGS: Equal air entry . Diminished BS in all lung doyle. Coarse breath sounds at the lower bases. CVS: S1 and S2 normal with no audible mumurs, regular rhythm. ABDOMEN: No hepatosplenomegaly, normal bowel sounds, no guarding or rigidity. EXTREMITIES: No edema noted, pedal pulses palpable. SKIN: Left axilla noted to have an induration that is firm and hot. A small pustule is noted in the middle of the axilla currently drainage is seen. light yellowish foul smelling CENTRAL NERVOUS SYSTEM: No focal deficits, tone is normal in all 4 extremities. Assessment and Plan Plan: Assessment - Acute Hypoxic respiratory failure - resolved . was placed on BiPAP. on NC now. - Acute ALLERGIC reaction could be from an insect bite exact cause unknown responded well - Left axillary cellulitis -Acute exacerbation of intermittent asthma causing acute hypoxic respiratory failure -Coronary artery disease with non-obstructive 50% LAD lesion -GERD -Essential hypertension -Hyperlipidemia -Metabolic acidosis -Hyponatremia - hypovolemic hyponatremia -Schizoaffective disorder, chronic -Anxiety disorder and otherwise specified -Peripheral neuropathy cause unknown -Acute metabolic encephalopathy multifactorial -Acute renal failure, nonoliguric probably ATN DUE TO HYPOTENSION CODE STATUS full code PLAN will obtain a ct scan of the chest wall as pt has a lot of drainage. consideration for I/D continue iv abx DC IVF DVT prophylaxis Objective - Vital Signs Vital signs: Vital Signs Temp 98 F 12/12/16 15:00 Pulse 74 12/12/16 15:00 Resp 18 12/12/16 15:00 BP 140/81 12/12/16 15:00 Pulse Ox 91 L 12/12/16 15:00 Intake & Output 12/12/16 12/12/16 12/13/16 06:59 18:59 06:59 Intake Total 800 800 Output Total 925 600 Balance -125 200 Intake: IV 800 800 Sodium Chloride 0.45% 1, 700 800 000 ml @ 100 mls/hr IV . Q10H [facility]ADA Rx#:[id number] ceFAZolin 2 gm In Sodium 100 Chloride 0.9% 100 ml @ 100 mls/hr IVPB Q8HR [facility]ADA Rx#:[id number] Output: Urine 925 600 Other: Voiding Method Indwelling Catheter Indwelling Catheter - Labs CBC & Chem 7: 12/12/16 07:00 12/12/16 07:00 Labs: Abnormal Lab Results - Last 24 Hours (Table) 12/11/16 12/12/16 12/12/16 Range/Units 21:38 07:00 07:00 RBC 3.10 L (3.80-5.40) m/uL Hgb 10.1 L (11.4-16.0) gm/dL Hct 31.8 L (34.0-46.0) % MCV 102.6 H (80.0-100.0) fL Lymphocytes # 0.4 L (1.0-4.8) k/uL Chloride 109 H (98-107) mmol/L BUN 39 H (7-17) mg/dL Glucose 111 H (74-99) mg/dL POC Glucose (mg/dL) 154 H (75-99) mg/dL Calcium 8.0 L (8.4-10.2) mg/dL 12/12/16 12/12/16 12/12/16 Range/Units 08:09 12:11 18:04 RBC (3.80-5.40) m/uL Hgb (11.4-16.0) gm/dL Hct (34.0-46.0) % MCV (80.0-100.0) fL Lymphocytes # (1.0-4.8) k/uL Chloride (98-107) mmol/L BUN (7-17) mg/dL Glucose (74-99) mg/dL POC Glucose (mg/dL) 122 H 112 H 138 H (75-99) mg/dL Calcium (8.4-10.2) mg/dL
[2016-12-12] MEDS ORDERED: RX INFO: IV CONTRAST WAS GIVEN 1 EACH MISC MISCELLANE PRN (19:29)
[2016-12-12 20:21] LABS: Glucose,Whole Blood 136 mg/dL (75-99)
[2016-12-12] MEDS: ATORVASTATIN 10 MG TAB PO SCH (21:25)
[2016-12-12] MEDS: NYSTATIN 100,000 UNIT/ML SUSP 500,000 UNIT/5 ML CUP PO SCH (21:25)
[2016-12-12] MEDS: methylPREDNISolone SOD SUCCI 40 MG/ML 1 ML VIAL IV SCH (22:29)
[2016-12-13 07:47] LABS: Basophils % (A) 0 %; CH 31.6; CHCM 31.3; Eosinophils % (A) 0 %; HCT 33.7 % (34.0-46.0); HDW 2.22; HGB 10.7 gm/dL (11.4-16.0); Luc % (Auto) 1; Lymphocytes # (A) 0.6 k/uL (1.0-4.8); Lymphocytes % (A) 5 %; MCH 32.3 pg (25.0-35.0); MCHC 31.8 g/dL (31.0-37.0); MCV 101.5 fL (80.0-100.0); Macrocytosis Slight; Mean Platelet Volume 9.6; Monocytes # (A) 0.4 k/uL (0-1.0); Monocytes % (A) 3 %; Neutrophils # (A) 9.5 k/uL (1.3-7.7); Neutrophils % (A) 90 %; RBC 3.32 m/uL (3.80-5.40); RDW 13.8 % (11.5-15.5); WBC 10.5 k/uL (3.8-10.6); WBC (Perox) 11.08
[2016-12-13 07:55] LABS: ALT 23 U/L (9-52); AST 25 U/L (14-36); Alkaline Phosphatase 75 U/L (38-126); Anion Gap 4 mmol/L; Blood Urea Nitrogen 35 mg/dL (7-17); Calcium 8.4 mg/dL (8.4-10.2); Carbon Dioxide 29 mmol/L (22-30); Chloride 107 mmol/L (98-107); Glucose 93 mg/dL (74-99); Non-African American GFR(MDRD) >60 (>60 ml/min/1.73 sqM); Potassium 4.9 mmol/L (3.5-5.1); Sodium 140 mmol/L (137-145); Total Bilirubin 0.4 mg/dL (0.2-1.3); Total Protein 4.8 g/dL (6.3-8.2)
[2016-12-13 07:56] LABS: Glucose,Whole Blood 91 mg/dL (75-99)
[2016-12-13] MEDS: ALBUTEROL NEBULIZED 2.5 MG/3 ML INHALATION PRN ×3 (08:14→20:46)
[2016-12-13] MEDS: BUDESONIDE 0.5 MG/2 ML NEBU INHALATION SCH ×2 (08:14→20:44)
[2016-12-13] MEDS: SENNOSIDES 8.6 MG TAB PO SCH ×3 (08:34→20:14)
[2016-12-13] MEDS: NYSTATIN 100,000 UNIT/ML SUSP 500,000 UNIT/5 ML CUP PO SCH ×4 (08:34→20:15)
[2016-12-13] MEDS: METOPROLOL TARTRATE 25 MG TAB PO SCH ×3 (08:34→21:40)
[2016-12-13] MEDS: methylPREDNISolone SOD SUCCI 40 MG/ML 1 ML VIAL IV SCH ×2 (08:34→20:14)
[2016-12-13] MEDS: HEPARIN SODIUM,PORCINE 5,000 UNIT/ML 1 ML VIAL SQ SCH ×3 (08:35→23:25)
[2016-12-13] MEDS: ASPIRIN 81 MG CHEW PO SCH (08:35)
[2016-12-13] MEDS: LORATADINE 10 MG TAB PO SCH (08:35)
[2016-12-13] MEDS: FAMOTIDINE 20 MG TAB PO SCH ×2 (08:35→20:15)
[2016-12-13] MEDS: CITALOPRAM HYDROBROMIDE 20 MG TAB PO SCH (08:35)
[2016-12-13] MEDS: GABAPENTIN 300 MG CAP PO SCH ×2 (08:35→20:15)
[2016-12-13] MEDS: INSULIN LISPRO (humaLOG) 300 UNIT/3 ML VIAL SQ SCH ×4 (08:36→20:17)
[2016-12-13] MEDS: ceFAZolin 2 GM in SODIUM CHLORIDE 0.9% 100 ML IVPB SCH ×3 (08:36→23:24)
--- NOTE | 2016-12-13 09:25 | CT ---
EXAMINATION TYPE: CT upper extremity LT w con DATE OF EXAM: 12/13/2016 COMPARISON: NONE HISTORY: redness swelling under Lt armpit CT DLP: 366.1 mGycm TECHNIQUE: CT of the left shoulder was performed following the administration of contrast. Given tran ent's size or significant difficulty in patient positioning as well as extensive artifact. Portions o f the soft tissues are not included on the [id number]. CONTRAST: Performed with IV Contrast, patient injected with 100 mL of Omnipaque 300. FINDINGS: There is extensive artifact within the region of interest. There is advanced inflammatory phlegmon id entified within the region of the left axilla extending along the left lateral chest wall. A drainabl e collection is not identified with absolute certainty at this time. Several mildly prominent lymph n odes identified. The left shoulder is intact. No evidence for dislocation or fracture. Left-sided ple ural effusion incompletely imaged. IMPRESSION: LIMITED STUDY HOWEVER THERE IS MODERATE SIZED AREA OF INFLAMMATORY PHLEGMON IN THE REGION OF THE LEF T AXILLA EXTENDING ALONG THE LEFT LATERAL CHEST WALL. A DRAINABLE COLLECTION IS NOT APPRECIATED WITH ABSOLUTE CERTAINTY.
[2016-12-13] MEDS ORDERED: FUROSEMIDE 10 MG/ML 2 ML VIAL IV ONE (11:01)
[2016-12-13] MEDS: ALPRAZolam 0.5 MG TAB PO PRN (11:31)
--- NOTE | 2016-12-13 11:34 | P.PN ---
Subjective 12/06/16- This is a 61-year-old female who came into emergency department with shortness of breath and generalized weakness that had been developing over the last 3-4 days. Apparently the patient was stung by a bee in her left axilla, the area became extremely itchy with a diffuse reddened rash. The patient states she also shaved her left axilla in the cellulitis developed. The patient became unresponsive and received an EpiPen injection as well as Benadryl with EMS. This patient [facility] at a detention. In the emergency room the patient was noted to have a d-dimer of 5.28 so she was also started on heparin drip, which is currently therapeutic. She was also noted to the septic with a lactic acid of 2.5. Urine drug screen was completed and was positive for tricyclic antidepressants and benzodiazepines. She she was admitted to the medical floor and was also given a dose of Ativan. The patient became somnolent with oxygen saturations 49%. Subsequently she was transferred to the ICU. The patient has since been on BiPAP and her oxygen saturations have improved. However throughout the night the patient was hypotensive but maintained her urine output therefore she was given IV boluses which was effective in bringing up her blood pressure. Patient is also on Solu-Medrol, antibiotics and IV Benadryl. Patient is also noted to be acidotic tenderness on IV fluids of D5W with 3 A of bicarb at 50ml/hr. Wound culture of the left axilla has been taken and is presumptive staph aureus. Upon examination the patient's resting in bed on BiPAP she continues to be somewhat somnolent however responds to voice commands slowly. BiPAP settings IPAP of 12 EPAP of 5 FiO2 35% oxygen saturations 98%. Patient also has a history of being mentally challenged and slurs her speech as a baseline due to a deficit of a previous CVA /TIA. 12/08/15- upon examination today the patient's resting up in bed on 3 L of supplemental oxygen. Patient is alert and oriented 1. Patient is less lethargic today than yesterday. Liver the patient still becomes short of breath with exertion or extensive conversation. States labs were reviewed and her white count is now to 10.9, sodium 140 potassium 3.3 chloride 111 carbon dioxide 22 BUN 45 creatinine 1.3. Patient should have a VQ scan once okayed by nephrology. 12/09/15- on examination today the patient is resting up in bed on 2 L of supplemental oxygen. The patient continues to be very sleepy and currently we are investigating her home medication and dosage of Seroquel that she receives at the detention she att[facility]. Excessive sleepiness could be due to this medication and we will hold at this time. Neuro is also on consults. Patient did have her CT a of the chest yesterday which showed no evidence of pulmonary embolism, interstitial pulmonary infiltrates with some atelectasis at the lung bases and small pleural effusions were noted. It is suggested on the impression this could be due to congestive heart failure. Cardiology is also on consult. Patient's heparin drip could be stopped due to no pulmonary embolism. Patient continues to be short of breath with exertion. hemodynamically she is much better. 12/09/16- the patient was downgraded yesterday from the ICU. Today she is seen on the selective care unit resting up in bed on 2-3 L of supplemental oxygen. She continues to be sleepy however less sleepy than yesterday. She does state she has intermittent shortness of breath with exertion. She denies any cough or congestion. Per the nursing staff the patient has been intermittently taking off her oxygen. The patient has been educated on the importance of keeping the oxygen on at this time. Her cellulitis is slowly improving. Mentation remains about the same. 12/10/16- on examination the patient is not orientated. The patient continuously mumbles and it is unclear whether she is trying to say. The patient's states this is not the patient's baseline. She is awake and can make eye contact, she listens when spoken to however she does not respond to commands. Apparently the patient did have oxygen saturations above 92% earlier this morning therefore she was switched to room air however on examination she is noted to have a decreased oxygen saturation in the 80s so supplemental oxygen is put back on the patient. The patient is known to continue to take her oxygen on and off intermittently. Education has been provided to the patient on importance of keeping her oxygen on at this time however is not clear if the patient is understanding due to her mentation. We will obtain stat ABGs as well as what neurology no about the patient's decline in mentation. 12/11/16-today and the patient is much more alert, continues with intermittent confusion. I am able to make out what he says speech is much more clear today however she still mumbles on occasion. More dynamically she is stable. Currently she is on 4 L of supplemental oxygen via nasal cannula. Oxygen saturations in the mid 90s. She does respond to commands today. She is keeping her oxygen on today as well. ABGs from yesterday were obtained and were normal. Patient is still being seen by nephrology. Labs and chest x-ray are reviewed. Chest x-ray shows left basilar infiltrate and small effusion with central interstitial pattern correlate for interstitial pneumonitis versus venous congestion. patient seen and evaluated examined today she is awake but intermittently confused as any [facility] symptoms however continued to require supplemental oxygen oxygen saturation has been stable limited data reviewed radiographic studies reviewed as well 12/13/16, patient seen and evaluated examined regularly she is doing better more awake and alert breathing comfortably cuff congestion shortness of breath has improved she remains on broad IV cefazolin ID service is following Objective - Vital Signs Vital signs: Vital Signs Temp 98.2 F 12/13/16 07:00 Pulse 68 12/13/16 08:30 Resp 20 12/13/16 07:00 BP 161/77 12/13/16 07:00 Pulse Ox 97 12/13/16 07:00 Intake & Output 12/12/16 12/13/16 12/13/16 18:59 06:59 18:59 Intake Total 800 Output Total 600 700 Balance 200 -700 Intake: IV 800 Sodium Chloride 0.45% 1, 800 000 ml @ 100 mls/hr IV . Q10H [facility] Rx#:[id number] Output: Urine 600 700 Other: Voiding Method Indwelling Catheter Indwelling Catheter Indwelling Catheter # Bowel Movements 1 - Exam GENERAL EXAM: Awake, intermittent confusion noted slightly restless, in no apparent distress. HEAD: Normocephalic. EYES: Normal reaction of pupils, equal size. Dry eyes NOSE: Clear with pink turbinates. THROAT: No erythema or exudates. NECK: No masses, no JVD. CHEST: No chest wall deformity. LUNGS: Equal air entry with no crackles, wheeze, rhonchi or dullness. Diminished CVS: S1 and S2 normal with no audible mumurs, regular rhythm. ABDOMEN: No hepatosplenomegaly, normal bowel sounds, no guarding or rigidity. EXTREMITIES: No edema noted, pedal pulses palpable. SKIN: Left axilla noted to have an definite indurated area of erythema the area is firm and hot. The small less than 1 cm pustule is noted in the middle of the axilla currently no drainage is seen. Cellulitis improving CENTRAL NERVOUS SYSTEM: No focal deficits, tone is normal in all 4 extremities. - Labs CBC & Chem 7: 12/13/16 06:54 12/13/16 06:54 Labs: Abnormal Lab Results - Last 24 Hours (Table) 12/12/16 12/12/16 12/12/16 Range/Units 12:11 18:04 20:15 RBC (3.80-5.40) m/uL Hgb (11.4-16.0) gm/dL Hct (34.0-46.0) % MCV (80.0-100.0) fL Neutrophils # (1.3-7.7) k/uL Lymphocytes # (1.0-4.8) k/uL BUN (7-17) mg/dL POC Glucose (mg/dL) 112 H 138 H 136 H (75-99) mg/dL Total Protein (6.3-8.2) g/dL Albumin (3.5-5.0) g/dL 12/13/16 12/13/16 Range/Units 06:54 06:54 RBC 3.32 L (3.80-5.40) m/uL Hgb 10.7 L (11.4-16.0) gm/dL Hct 33.7 L (34.0-46.0) % MCV 101.5 H (80.0-100.0) fL Neutrophils # 9.5 H (1.3-7.7) k/uL Lymphocytes # 0.6 L (1.0-4.8) k/uL BUN 35 H (7-17) mg/dL POC Glucose (mg/dL) (75-99) mg/dL Total Protein 4.8 L (6.3-8.2) g/dL Albumin 2.2 L (3.5-5.0) g/dL Assessment and Plan Plan: Assessment Left abscess of the axilla, related to above and bee sting, Cellulitis of the left axilla Metabolic acidosis and elevated d-dimer due to severe sepsis, related to staph wound infection and acute renal failure Acute hypoxic respiratory failure, Hypotension Anaphylaxis reaction, related to bee sting Schizoaffective disorder Anxiety Hypokalemic Morbid obesity Plan As noted previously, Social work and is currently working on ECF placement, on discharge. Medications have been reviewed and will be continued as ordered. Continue with IV antibiotics, Benadryl and steroids. Replace electrolytes and monitor per protocol. Cultures have come back as MSSA. Antibiotics had been adjusted by infectious disease. Continue with pulmonary hygiene, coughing and deep breathing exercises, and supportive care. Supplemental oxygen or BiPAP to maintain oxygen saturations of 92% or better. Continue nebulizer treatments. GI and DVT prophylaxis. She will likely need a polysomnogram an outpatient basis Continue with Neuro, ID, and nephro consults and appreciate recommendations. We will continue to monitor labs/results and adjust treatment as necessary. Further recommendations pending. Time with Patient: Less than 30
[2016-12-13 11:53] LABS: Glucose,Whole Blood 96 mg/dL (75-99)
[2016-12-13] MEDS: CHOLECALCIFEROL 1,000 UNIT TAB PO SCH (12:46)
[2016-12-13] MEDS: VIT A,C & E-LUTEIN-MINERALS 1 EACH TAB PO SCH (12:46)
--- NOTE | 2016-12-13 14:44 | P.PN ---
Subjective Ms. Corey is a 61-year-old patient of visiting physicians Dr. Muro. Patient is resident of a custodial called [facility]. Patient's chronic stable medical conditions include coronary artery disease with a 50% LAD lesion, GERD, hypertension, hyperlipidemia, schizoaffective disorder, anxiety, peripheral neuropathy and macular degeneration. Patient apparently for 3 days had noticed swelling and redness of the left arm not sure if something can better and presented to ER. Patient was found to be hypotensive with extensive rash and patient is given IV Solu-Medrol IV Benadryl and Pepcid and admitted to the medical floor. Patient became hypotensive and hypoxic was transferred to the intensive care unit with a consultation to critical care and infectious disease. Patient got a definite induration and redness in the left axillary area. Patient does confirm that she does use a razor in the left armpit. Patient was acidotic and was put on a bicarbonate drip patient also found to be in acute renal failure. Patient's condition improved with IV antibiotics. On 12/10/16 - Pt was found to be Hypoxic , so ABG obtained and she was then placed on BiPAP . She is currently on Bipap not in respiratory distress. On 12/11/16 Pt.s respiratory status much improved. saturating well on NC. was able to answer. no fever/chils. no overnight issues. Review of systems - She states that she is feeling very weak and tired. She denies having any chest pain or cough. No complaints of any abdominal pain nausea vomiting or diarrhea. She has difficulty in breathing . 12/12/16 states that she feels more cloudy today no fevers, chills, nausea, vomiting, diarrhea reported discharge from her axilla is reported 06/26/2016 Patient states to be slightly improved however continues to have discharge from her axillary region No fevers chills nausea vomiting or diarrhea reported - Exam GENERAL EXAM: Less somnolent today, comfortable in no apparent distress. HEAD: Normocephalic. EYES: Normal reaction of pupils, equal size. Dry eyes NECK: No masses, no JVD. LUNGS: Equal air entry . Diminished BS in all lung doyle. Coarse breath sounds at the lower bases. CVS: S1 and S2 normal with no audible mumurs, regular rhythm. ABDOMEN: No hepatosplenomegaly, normal bowel sounds, no guarding or rigidity. EXTREMITIES: No edema noted, pedal pulses palpable. SKIN: Left axilla noted to have an induration that is firm and hot. A small pustule is noted in the middle of the axilla currently drainage is seen. light yellowish foul smelling CENTRAL NERVOUS SYSTEM: No focal deficits, tone is normal in all 4 extremities. Assessment and Plan Plan: Assessment - Acute Hypoxic respiratory failure - resolved . was placed on BiPAP. on NC now. - Acute ALLERGIC reaction could be from an insect bite exact cause unknown responded well - Left axillary cellulitis -Acute exacerbation of intermittent asthma causing acute hypoxic respiratory failure -Coronary artery disease with non-obstructive 50% LAD lesion -GERD -Essential hypertension -Hyperlipidemia -Metabolic acidosis -Hyponatremia - hypovolemic hyponatremia -Schizoaffective disorder, chronic -Anxiety disorder and otherwise specified -Peripheral neuropathy cause unknown -Acute metabolic encephalopathy multifactorial -Acute renal failure, nonoliguric probably ATN DUE TO HYPOTENSION CODE STATUS full code PLAN Computed tomography scan is reviewed however there is significant amount of drainage that is noted there is a large phlegmon there is no drainable pus cavity however will consult general surgery for a slight I/D in order to decrease the area of infection thereafter could be dressed appropriately and treated with antibiotics Objective - Vital Signs Vital signs: Vital Signs Temp 98.2 F 12/13/16 07:00 Pulse 72 12/13/16 12:16 Resp 20 12/13/16 07:00 BP 161/77 12/13/16 07:00 Pulse Ox 97 12/13/16 07:00 Intake & Output 12/12/16 12/13/16 12/13/16 18:59 06:59 18:59 Intake Total 800 Output Total 600 700 Balance 200 -700 Intake: IV 800 Sodium Chloride 0.45% 1, 800 000 ml @ 100 mls/hr IV . Q10H [facility] Rx#:[id number] Output: Urine 600 700 Other: Voiding Method Indwelling Catheter Indwelling Catheter Indwelling Catheter # Bowel Movements 1 - Labs CBC & Chem 7: 12/13/16 06:54 12/13/16 06:54 Labs: Abnormal Lab Results - Last 24 Hours (Table) 12/12/16 12/12/16 12/13/16 Range/Units 18:04 20:15 06:54 RBC 3.32 L (3.80-5.40) m/uL Hgb 10.7 L (11.4-16.0) gm/dL Hct 33.7 L (34.0-46.0) % MCV 101.5 H (80.0-100.0) fL Neutrophils # 9.5 H (1.3-7.7) k/uL Lymphocytes # 0.6 L (1.0-4.8) k/uL BUN (7-17) mg/dL POC Glucose (mg/dL) 138 H 136 H (75-99) mg/dL Total Protein (6.3-8.2) g/dL Albumin (3.5-5.0) g/dL 12/13/16 Range/Units 06:54 RBC (3.80-5.40) m/uL Hgb (11.4-16.0) gm/dL Hct (34.0-46.0) % MCV (80.0-100.0) fL Neutrophils # (1.3-7.7) k/uL Lymphocytes # (1.0-4.8) k/uL BUN 35 H (7-17) mg/dL POC Glucose (mg/dL) (75-99) mg/dL Total Protein 4.8 L (6.3-8.2) g/dL Albumin 2.2 L (3.5-5.0) g/dL
[2016-12-13 17:11] LABS: Glucose,Whole Blood 120 mg/dL (75-99)
[2016-12-13] MEDS: ACETAMINOPHEN TAB 325 MG TAB PO PRN (17:37)
[2016-12-13] MEDS: ATORVASTATIN 10 MG TAB PO SCH (20:13)
[2016-12-13 20:19] LABS: Glucose,Whole Blood 105 mg/dL (75-99)
[2016-12-14 07:19] LABS: Glucose,Whole Blood 79 mg/dL (75-99)
[2016-12-14] MEDS: INSULIN LISPRO (humaLOG) 300 UNIT/3 ML VIAL SQ SCH ×4 (08:18→22:23)
[2016-12-14 08:24] LABS: ALT 19 U/L (9-52); AST 24 U/L (14-36); Alkaline Phosphatase 68 U/L (38-126); Anion Gap 2 mmol/L; Blood Urea Nitrogen 25 mg/dL (7-17); Calcium 7.8 mg/dL (8.4-10.2); Carbon Dioxide 29 mmol/L (22-30); Chloride 104 mmol/L (98-107); Glucose 81 mg/dL (74-99); Non-African American GFR(MDRD) >60 (>60 ml/min/1.73 sqM); Potassium 4.1 mmol/L (3.5-5.1); Sodium 135 mmol/L (137-145); Total Bilirubin 0.4 mg/dL (0.2-1.3); Total Protein 4.6 g/dL (6.3-8.2)
[2016-12-14] MEDS: BUDESONIDE 0.5 MG/2 ML NEBU INHALATION SCH ×2 (08:38→20:47)
[2016-12-14] MEDS: ALBUTEROL NEBULIZED 2.5 MG/3 ML INHALATION PRN ×3 (08:38→20:47)
[2016-12-14] MEDS: HEPARIN SODIUM,PORCINE 5,000 UNIT/ML 1 ML VIAL SQ SCH ×3 (08:54→23:59)
[2016-12-14] MEDS: ceFAZolin 2 GM in SODIUM CHLORIDE 0.9% 100 ML IVPB SCH ×3 (08:54→23:59)
[2016-12-14] MEDS: CITALOPRAM HYDROBROMIDE 20 MG TAB PO SCH (08:54)
[2016-12-14] MEDS: ASPIRIN 81 MG CHEW PO SCH (08:54)
[2016-12-14] MEDS: FAMOTIDINE 20 MG TAB PO SCH ×2 (08:55→22:22)
[2016-12-14] MEDS: methylPREDNISolone SOD SUCCI 40 MG/ML 1 ML VIAL IV SCH ×2 (08:55→22:23)
[2016-12-14] MEDS: GABAPENTIN 300 MG CAP PO SCH ×2 (08:55→22:22)
[2016-12-14] MEDS: LORATADINE 10 MG TAB PO SCH (08:55)
[2016-12-14] MEDS: METOPROLOL TARTRATE 25 MG TAB PO SCH ×3 (08:56→22:24)
[2016-12-14] MEDS: NYSTATIN 100,000 UNIT/ML SUSP 500,000 UNIT/5 ML CUP PO SCH ×4 (08:56→22:24)
[2016-12-14] MEDS: SENNOSIDES 8.6 MG TAB PO SCH ×2 (08:59→22:24)
--- NOTE | 2016-12-14 10:12 | P.PN ---
Subjective Patient is seen in follow-up for acute kidney injury. Her baseline creatinine is 1 and was elevated at 3.4 on admission. It is down to 0.7 today. She is nonoliguric. Patient presented with left axillary cellulitis and a questionable insect sting. She was also hypotensive on admission and did receive IV fluids. She was then changed to half-normal saline due to hypernatremia. She is currently off all IV fluids. Sodium level today is 135. Hemodynamically she stable. She did undergo a CT of the upper extremity with contrast on December 13 which revealed moderate sized inflammation in the left axilla. Vital signs are stable. General: The patient appeared well nourished and normally developed. HEENT: Head exam is unremarkable. Neck is without jugular venous distension. LUNGS: Scattered rhonchi. Breath sounds decreased. HEART: Rate and Rhythm are regular. First and second heart sounds normal. No murmurs, rubs or gallops. ABDOMEN: Abdominal exam reveals normal bowel sounds. Non-tender and non- distended. No evidence of peritonitis. EXTREMITITES: No clubbing, cyanosis, or edema. Objective - Vital Signs Vital signs: Vital Signs Temp 98.4 F 12/14/16 07:00 Pulse 72 12/14/16 08:49 Resp 18 12/14/16 07:00 BP 152/74 12/14/16 07:00 Pulse Ox 97 12/14/16 08:39 Intake & Output 12/13/16 12/14/16 12/14/16 18:59 06:59 18:59 Intake Total 200 Output Total 1900 1825 750 Balance -1900 -1625 -750 Intake: IV 200 ceFAZolin 2 gm In Sodium 200 Chloride 0.9% 100 ml @ 100 mls/hr IVPB Q8HR [facility] Rx#:[id number] Output: Urine 1900 1825 750 Straight 1825 Other: Voiding Method Indwelling Catheter Indwelling Catheter # Bowel Movements 1 - Labs CBC & Chem 7: 12/13/16 06:54 12/14/16 07:39 Labs: Abnormal Lab Results - Last 24 Hours (Table) 12/13/16 12/13/16 12/14/16 Range/Units 17:08 20:16 07:39 Sodium 135 L (137-145) mmol/L BUN 25 H (7-17) mg/dL POC Glucose (mg/dL) 120 H 105 H (75-99) mg/dL Calcium 7.8 L (8.4-10.2) mg/dL Total Protein 4.6 L (6.3-8.2) g/dL Albumin 2.1 L (3.5-5.0) g/dL Assessment and Plan Plan: Assessment: #1. Nonoliguric acute kidney injury mostly prerenal secondary to hypotension. Resolved. Creatinine was 3.4 on admission and is down to 0.7 today. Monitor for contrast-induced nephropathy as she did receive IV dye on December 13. #2. Hypotension possibly related to anaphylactic reaction. Resolved. #3. Metabolic acidosis secondary to acute kidney injury. Resolved. #4. Hypernatremia secondary to lack of oral water intake. Resolved. #5. Hypokalemia from renal potassium wasting with recovering renal function. Magnesium replete. Resolved. #6. Left axillary cellulitis with questionable insect sting. Plan: Remains off all IV fluids. Avoid nephrotoxic agents and hypotensive episodes. Encourage oral intake as tolerated. Repeat electrolytes in the morning. Antibiotics per infectious disease recommendations.
[2016-12-14 11:44] LABS: Glucose,Whole Blood 119 mg/dL (75-99)
[2016-12-14] MEDS: VIT A,C & E-LUTEIN-MINERALS 1 EACH TAB PO SCH (12:02)
[2016-12-14] MEDS: CHOLECALCIFEROL 1,000 UNIT TAB PO SCH (12:02)
[2016-12-14] MEDS: CYANOCOBALAMIN 500 MCG TAB PO SCH (12:02)
[2016-12-14] MEDS ORDERED: FUROSEMIDE 10 MG/ML 4 ML VIAL IV STA (13:44)
--- NOTE | 2016-12-14 15:19 | P.PN ---
Subjective 12/06/16- This is a 61-year-old female who came into emergency department with shortness of breath and generalized weakness that had been developing over the last 3-4 days. Apparently the patient was stung by a bee in her left axilla, the area became extremely itchy with a diffuse reddened rash. The patient states she also shaved her left axilla in the cellulitis developed. The patient became unresponsive and received an EpiPen injection as well as Benadryl with EMS. This patient lives at a [facility]. In the emergency room the patient was noted to have a d-dimer of 5.28 so she was also started on heparin drip, which is currently therapeutic. She was also noted to the septic with a lactic acid of 2.5. Urine drug screen was completed and was positive for tricyclic antidepressants and benzodiazepines. She she was admitted to the medical floor and was also given a dose of Ativan. The patient became somnolent with oxygen saturations 49%. Subsequently she was transferred to the ICU. The patient has since been on BiPAP and her oxygen saturations have improved. However throughout the night the patient was hypotensive but maintained her urine output therefore she was given IV boluses which was effective in bringing up her blood pressure. Patient is also on Solu-Medrol, antibiotics and IV Benadryl. Patient is also noted to be acidotic tenderness on IV fluids of D5W with 3 A of bicarb at 50ml/hr. Wound culture of the left axilla has been taken and is presumptive staph aureus. Upon examination the patient's resting in bed on BiPAP she continues to be somewhat somnolent however responds to voice commands slowly. BiPAP settings IPAP of 12 EPAP of 5 FiO2 35% oxygen saturations 98%. Patient also has a history of being mentally challenged and slurs her speech as a baseline due to a deficit of a previous CVA /TIA. 12/08/15- upon examination today the patient's resting up in bed on 3 L of supplemental oxygen. Patient is alert and oriented 1. Patient is less lethargic today than yesterday. Liver the patient still becomes short of breath with exertion or extensive conversation. States labs were reviewed and her white count is now to 10.9, sodium 140 potassium 3.3 chloride 111 carbon dioxide 22 BUN 45 creatinine 1.3. Patient should have a VQ scan once okayed by nephrology. 12/09/15- on examination today the patient is resting up in bed on 2 L of supplemental oxygen. The patient continues to be very sleepy and currently we are investigating her home medication and dosage of Seroquel that she receives at the [facility] she attends. Excessive sleepiness could be due to this medication and we will hold at this time. Neuro is also on consults. Patient did have her CT a of the chest yesterday which showed no evidence of pulmonary embolism, interstitial pulmonary infiltrates with some atelectasis at the lung bases and small pleural effusions were noted. It is suggested on the impression this could be due to congestive heart failure. Cardiology is also on consult. Patient's heparin drip could be stopped due to no pulmonary embolism. Patient continues to be short of breath with exertion. hemodynamically she is much better. 12/09/16- the patient was downgraded yesterday from the ICU. Today she is seen on the selective care unit resting up in bed on 2-3 L of supplemental oxygen. She continues to be sleepy however less sleepy than yesterday. She does state she has intermittent shortness of breath with exertion. She denies any cough or congestion. Per the nursing staff the patient has been intermittently taking off her oxygen. The patient has been educated on the importance of keeping the oxygen on at this time. Her cellulitis is slowly improving. Mentation remains about the same. 12/10/16- on examination the patient is not orientated. The patient continuously mumbles and it is unclear whether she is trying to say. The patient's states this is not the patient's baseline. She is awake and can make eye contact, she listens when spoken to however she does not respond to commands. Apparently the patient did have oxygen saturations above 92% earlier this morning therefore she was switched to room air however on examination she is noted to have a decreased oxygen saturation in the 80s so supplemental oxygen is put back on the patient. The patient is known to continue to take her oxygen on and off intermittently. Education has been provided to the patient on importance of keeping her oxygen on at this time however is not clear if the patient is understanding due to her mentation. We will obtain stat ABGs as well as what neurology no about the patient's decline in mentation. 12/11/16-today and the patient is much more alert, continues with intermittent confusion. I am able to make out what he says speech is much more clear today however she still mumbles on occasion. More dynamically she is stable. Currently she is on 4 L of supplemental oxygen via nasal cannula. Oxygen saturations in the mid 90s. She does respond to commands today. She is keeping her oxygen on today as well. ABGs from yesterday were obtained and were normal. Patient is still being seen by nephrology. Labs and chest x-ray are reviewed. Chest x-ray shows left basilar infiltrate and small effusion with central interstitial pattern correlate for interstitial pneumonitis versus venous congestion. patient seen and evaluated examined today she is awake but intermittently confused as any [facility] symptoms however continued to require supplemental oxygen oxygen saturation has been stable limited data reviewed radiographic studies reviewed as well 12/13/16, patient seen and evaluated examined regularly she is doing better more awake and alert breathing comfortably cuff congestion shortness of breath has improved she remains on broad IV cefazolin ID service is following 12/14/16, patient is seen and examined today and is much more awake today. She continues to use supplemental oxygen. She continues to get short of breath with exertion. Patient does continue to complain of some oropharyngeal thrush. She is already on medications for this. CT of the left upper extremity is reviewed from yesterday which shows a limited study however there is a moderate- sized area of inflammatory phlegmon in the region of the left axilla extending along the left lateral chest wall, a drainable collection is not appreciated with absolute certainty. Objective - Vital Signs Vital signs: Vital Signs Temp 98.5 F 12/14/16 15:00 Pulse 73 12/14/16 15:00 Resp 18 12/14/16 15:00 BP 131/65 12/14/16 15:00 Pulse Ox 96 12/14/16 15:00 Intake & Output 12/13/16 12/14/16 12/14/16 18:59 06:59 18:59 Intake Total 200 Output Total 1900 1825 1750 Balance -1900 -1625 -1750 Intake: IV 200 ceFAZolin 2 gm In Sodium 200 Chloride 0.9% 100 ml @ 100 mls/hr IVPB Q8HR [facility] Rx#:[id number] Output: Urine 1900 1825 1750 Straight 1825 Other: Voiding Method Indwelling Catheter Indwelling Catheter Indwelling Catheter # Bowel Movements 1 - Exam GENERAL EXAM: Awake, intermittent confusion noted slightly restless, in no apparent distress. HEAD: Normocephalic. EYES: Normal reaction of pupils, equal size. Dry eyes NOSE: Clear with pink turbinates. THROAT: No erythema or exudates. Oropharyngeal thrush NECK: No masses, no JVD. CHEST: No chest wall deformity. LUNGS: Equal air entry with no crackles, wheeze, rhonchi or dullness. Diminished CVS: S1 and S2 normal with no audible mumurs, regular rhythm. ABDOMEN: No hepatosplenomegaly, normal bowel sounds, no guarding or rigidity. EXTREMITIES: No edema noted, pedal pulses palpable. SKIN: Left axilla noted to have an definite indurated area of erythema the area is firm and hot. The small less than 1 cm pustule is noted in the middle of the axilla currently no drainage is seen. Cellulitis improving CENTRAL NERVOUS SYSTEM: No focal deficits, tone is normal in all 4 extremities. - Labs CBC & Chem 7: 12/13/16 06:54 12/14/16 07:39 Labs: Abnormal Lab Results - Last 24 Hours (Table) 12/13/16 12/13/16 12/14/16 Range/Units 17:08 20:16 07:39 Sodium 135 L (137-145) mmol/L BUN 25 H (7-17) mg/dL POC Glucose (mg/dL) 120 H 105 H (75-99) mg/dL Calcium 7.8 L (8.4-10.2) mg/dL Total Protein 4.6 L (6.3-8.2) g/dL Albumin 2.1 L (3.5-5.0) g/dL 12/14/16 Range/Units 11:38 Sodium (137-145) mmol/L BUN (7-17) mg/dL POC Glucose (mg/dL) 119 H (75-99) mg/dL Calcium (8.4-10.2) mg/dL Total Protein (6.3-8.2) g/dL Albumin (3.5-5.0) g/dL Assessment and Plan Plan: Assessment Anaphylaxis reaction related to bee sting Metabolic acidosis and elevated d-dimer due to severe sepsis, related to staph wound infection and acute renal failure Acute hypoxic respiratory failure, Hypotension Left abscess of the axilla Cellulitis of the left axilla Schizoaffective disorder Anxiety Hypokalemic Morbid obesity Plan Social work and is currently working on ECF placement, on discharge. Medications have been reviewed and will be continued as ordered. Continue with nystatin for thrush. Continue with IV antibiotics, Benadryl and steroids. Replace electrolytes and monitor per protocol. Cultures have come back as MSSA. Antibiotics had been adjusted by infectious disease. Continue with pulmonary hygiene, coughing and deep breathing exercises, and supportive care. Supplemental oxygen or BiPAP to maintain oxygen saturations of 92% or better. She will require a polysomnogram in the outpatient setting. Continue nebulizer treatments. GI and DVT prophylaxis. Continue with Neuro, ID, and nephro consults and appreciate recommendations. We will continue to monitor labs/ results and adjust treatment as necessary. Further recommendations pending. I performed an examination of the patient and discussed their management with the nurse practitioner. I have reviewed the nurse practitioner's note and agree with the documented findings and plan of care.
[2016-12-14 17:15] LABS: Glucose,Whole Blood 122 mg/dL (75-99)
--- NOTE | 2016-12-14 17:31 | P.PN ---
Subjective Ms. Corey is a 61-year-old patient of visiting physicians Dr. Muro. Patient is resident of a [facility] called [facility]. Patient's chronic stable medical conditions include coronary artery disease with a 50% LAD lesion, GERD, hypertension, hyperlipidemia, schizoaffective disorder, anxiety, peripheral neuropathy and macular degeneration. Patient apparently for 3 days had noticed swelling and redness of the left arm not sure if something can better and presented to ER. Patient was found to be hypotensive with extensive rash and patient is given IV Solu-Medrol IV Benadryl and Pepcid and admitted to the medical floor. Patient became hypotensive and hypoxic was transferred to the intensive care unit with a consultation to critical care and infectious disease. Patient got a definite induration and redness in the left axillary area. Patient does confirm that she does use a razor in the left armpit. Patient was acidotic and was put on a bicarbonate drip patient also found to be in acute renal failure. Patient's condition improved with IV antibiotics. On 12/10/16 - Pt was found to be Hypoxic , so ABG obtained and she was then placed on BiPAP . She is currently on Bipap not in respiratory distress. On 12/11/16 Pt.s respiratory status much improved. saturating well on NC. was able to answer. no fever/chils. no overnight issues. Review of systems - She states that she is feeling very weak and tired. She denies having any chest pain or cough. No complaints of any abdominal pain nausea vomiting or diarrhea. She has difficulty in breathing . 12/12/16 states that she feels more cloudy today no fevers, chills, nausea, vomiting, diarrhea reported discharge from her axilla is reported 06/26/2016 Patient states to be slightly improved however continues to have discharge from her axillary region No fevers chills nausea vomiting or diarrhea reported 12/14/16 slightly improved continues to have drainage from her left axilla - Exam GENERAL EXAM: Less somnolent today, comfortable in no apparent distress. HEAD: Normocephalic. EYES: Normal reaction of pupils, equal size. Dry eyes NECK: No masses, no JVD. LUNGS: Equal air entry . Diminished BS in all lung doyle. Coarse breath sounds at the lower bases. CVS: S1 and S2 normal with no audible mumurs, regular rhythm. ABDOMEN: No hepatosplenomegaly, normal bowel sounds, no guarding or rigidity. EXTREMITIES: No edema noted, pedal pulses palpable. SKIN: Left axilla noted to have an induration that is firm and hot. A small pustule is noted in the middle of the axilla currently drainage is seen. light yellowish foul smelling extending into the upper left scapular region CENTRAL NERVOUS SYSTEM: No focal deficits, tone is normal in all 4 extremities. Assessment and Plan Plan: Assessment - Acute Hypoxic respiratory failure - resolved . was placed on BiPAP. on NC now. - Acute ALLERGIC reaction could be from an insect bite exact cause unknown responded well - Left axillary cellulitis -Acute exacerbation of intermittent asthma causing acute hypoxic respiratory failure -Coronary artery disease with non-obstructive 50% LAD lesion -GERD -Essential hypertension -Hyperlipidemia -Metabolic acidosis -Hyponatremia - hypovolemic hyponatremia -Schizoaffective disorder, chronic -Anxiety disorder and otherwise specified -Peripheral neuropathy cause unknown -Acute metabolic encephalopathy multifactorial -Acute renal failure, nonoliguric probably ATN DUE TO HYPOTENSION CODE STATUS full code PLAN Computed tomography scan is reviewed however there is significant amount of drainage that is noted there is a large phlegmon there is no drainable pus cavity however will consult general surgery for a slight I/D in order to decrease the area of infection thereafter could be dressed appropriately and treated with antibiotics one dose of lasix repeat cxr jermaine Objective - Vital Signs Vital signs: Vital Signs Temp 98.5 F 12/14/16 15:00 Pulse 73 12/14/16 15:00 Resp 18 12/14/16 15:00 BP 131/65 12/14/16 15:00 Pulse Ox 96 12/14/16 15:00 Intake & Output 12/13/16 12/14/16 12/14/16 18:59 06:59 18:59 Intake Total 200 Output Total 1900 1825 2650 Balance -1900 1625 -2650 Intake: IV 200 ceFAZolin 2 gm In Sodium 200 Chloride 0.9% 100 ml @ 100 mls/hr IVPB Q8HR [facility]PLACED [facility] Rx#:[id number] Output: Urine 1900 1825 2650 Straight 1825 Other: Voiding Method Indwelling Catheter Indwelling Catheter Indwelling Catheter # Bowel Movements 1 - Labs CBC & Chem 7: 12/13/16 06:54 12/14/16 07:39 Labs: Abnormal Lab Results - Last 24 Hours (Table) 12/13/16 12/14/16 12/14/16 Range/Units 20:16 07:39 11:38 Sodium 135 L (137-145) mmol/L BUN 25 H (7-17) mg/dL POC Glucose (mg/dL) 105 H 119 H (75-99) mg/dL Calcium 7.8 L (8.4-10.2) mg/dL Total Protein 4.6 L (6.3-8.2) g/dL Albumin 2.1 L (3.5-5.0) g/dL 12/14/16 Range/Units 17:13 Sodium (137-145) mmol/L BUN (7-17) mg/dL POC Glucose (mg/dL) 122 H (75-99) mg/dL Calcium (8.4-10.2) mg/dL Total Protein (6.3-8.2) g/dL Albumin (3.5-5.0) g/dL
--- NOTE | 2016-12-14 17:34 | P.GSCN ---
History of Present Illness Consult date: 12/14/16 Reason for Consult: Left axillary pain and induration History of present illness: This is a 7-year-old female who is admitted to hospital for treatment of left exercise. Patient developed pain and swelling in the area. She is currently on IV antibiotic. Her recent CAT scan shows no evidence of an abscess. Past Medical History Past Medical History: Asthma, Coronary Artery Disease (CAD), CVA/TIA, Eye Disorder, GERD/Reflux, Hyperlipidemia, Hypertension Additional Past Medical History / Comment(s): Macular degeneration,bronchial asthma,Tamra-Caregiver at [facility] pt signs own consent. History of Any Multi-Drug Resistant Organisms: None Reported Past Surgical History: Back Surgery, Cholecystectomy, Ear Surgery, Heart Catheterization, Hysterectomy, Tonsillectomy Additional Past Surgical History / Comment(s): eye surgery, cardiac cath on 2016 with moderate stenosis of LAD noted - no stenting at that time recommend medical management and return for angioplasty if sx persist Past Anesthesia/Blood Transfusion Reactions: No Reported Reaction Past Psychological History: Anxiety, Schizoaffective Disorder Additional Psychological History / Comment(s): Resident of [place] [facility] Smoking Status: Never smoker - Past Family History Mother Family Medical History: Myocardial Infarction ([place]) Father Family Medical History: Cancer Additional Family Medical History / Comment(s): throat CA Brother(s) Family Medical History: Cancer Additional Family Medical History / Comment(s): liver Medications and Allergies Home Medications Medication Instructions Recorded Confirmed Type Cholecalciferol [Vitamin D3] 2,000 unit PO DAILY 08/06/14 12/04/16 History Citalopram Hydrobromide 40 mg PO DAILY 08/06/14 12/04/16 History [Citalopram HBr] Cyanocobalamin [Vitamin B-12] 1,000 mcg PO Q48H 08/06/14 12/04/16 History LORazepam [Ativan] 1 mg PO BID 08/06/14 12/04/16 History Omeprazole [PriLOSEC] 40 mg PO AC-BRKFST 08/06/14 12/04/16 History Atenolol [Tenormin] 25 mg PO DAILY 07/21/16 12/04/16 History Gabapentin [Neurontin] 300 mg PO BID 07/21/16 12/04/16 History Loratadine [Claritin] 10 mg PO DAILY 07/21/16 12/04/16 History Sennosides [Senna] 8.6 mg PO BID 07/21/16 12/04/16 History Nitroglycerin Sl Tabs [Nitrostat] 0.4 mg SUBLINGUAL Q5M PRN 07/22/16 12/04/16 History Vit A/Vit C/Vit E/Zinc/Copper 1 cap PO DAILY 07/22/16 12/04/16 History [ICAPS SOFTGEL] Aspirin EC [Ecotrin Low Dose] 81 mg PO DAILY 07/27/16 12/04/16 History Calcium Carbonate [Tums] 500 mg PO TID PRN 07/27/16 12/04/16 History QUEtiapine FUMARATE [Seroquel Xr] 400 mg PO DAILY@1600 07/27/16 12/04/16 History QUEtiapine [SEROquel] 400 mg PO HS 07/27/16 12/04/16 History Simvastatin [Zocor] 20 mg PO HS 07/27/16 12/04/16 History Ibuprofen [Motrin] 600 mg PO Q6H PRN 12/04/16 12/04/16 History Allergies Allergy/AdvReac Type Severity Reaction Status Date / Time bee venom protein (honey bee) Allergy Anaphylaxis Verified 12/11/16 17:22 Surgical - Exam Vital Signs Temp Pulse Resp BP Pulse Ox 97.2 F L 89 17 82/46 93 L 12/04/16 19:17 12/04/16 19:17 12/04/16 19:17 12/04/16 19:17 12/04/16 19:17 Morbidly obese - General well developed, no distress - Eyes PERRL - ENT normal pinna - Respiratory normal expansion - Abdomen Abdomen: soft, non tender - Integumentary Slight area induration near the left axilla. There is no definite abscess cavity palpated. There is no significant drainage. Results - Labs 12/13/16 06:54 12/14/16 07:39 Abnormal Lab Results - Last 24 Hours (Table) 12/13/16 12/14/16 12/14/16 Range/Units 20:16 07:39 11:38 Sodium 135 L (137-145) mmol/L BUN 25 H (7-17) mg/dL POC Glucose (mg/dL) 105 H 119 H (75-99) mg/dL Calcium 7.8 L (8.4-10.2) mg/dL Total Protein 4.6 L (6.3-8.2) g/dL Albumin 2.1 L (3.5-5.0) g/dL 12/14/16 Range/Units 17:13 Sodium (137-145) mmol/L BUN (7-17) mg/dL POC Glucose (mg/dL) 122 H (75-99) mg/dL Calcium (8.4-10.2) mg/dL Total Protein (6.3-8.2) g/dL Albumin (3.5-5.0) g/dL Diabetes panel 12/14/16 Range/Units 07:39 Sodium 135 L (137-145) mmol/L Potassium 4.1 (3.5-5.1) mmol/L Chloride 104 (98-107) mmol/L Carbon Dioxide 29 (22-30) mmol/L BUN 25 H (7-17) mg/dL Creatinine 0.71 (0.52-1.04) mg/dL Glucose 81 (74-99) mg/dL Calcium 7.8 L (8.4-10.2) mg/dL AST 24 (14-36) U/L ALT 19 (9-52) U/L Alkaline Phosphatase 68 (38-126) U/L Total Protein 4.6 L (6.3-8.2) g/dL Albumin 2.1 L (3.5-5.0) g/dL Calcium panel 12/14/16 Range/Units 07:39 Calcium 7.8 L (8.4-10.2) mg/dL Albumin 2.1 L (3.5-5.0) g/dL Pituitary panel 12/14/16 Range/Units 07:39 Sodium 135 L (137-145) mmol/L Potassium 4.1 (3.5-5.1) mmol/L Chloride 104 (98-107) mmol/L Carbon Dioxide 29 (22-30) mmol/L BUN 25 H (7-17) mg/dL Creatinine 0.71 (0.52-1.04) mg/dL Glucose 81 (74-99) mg/dL Calcium 7.8 L (8.4-10.2) mg/dL Adrenal panel 12/14/16 Range/Units 07:39 Sodium 135 L (137-145) mmol/L Potassium 4.1 (3.5-5.1) mmol/L Chloride 104 (98-107) mmol/L Carbon Dioxide 29 (22-30) mmol/L BUN 25 H (7-17) mg/dL Creatinine 0.71 (0.52-1.04) mg/dL Glucose 81 (74-99) mg/dL Calcium 7.8 L (8.4-10.2) mg/dL Total Bilirubin 0.4 (0.2-1.3) mg/dL AST 24 (14-36) U/L ALT 19 (9-52) U/L Alkaline Phosphatase 68 (38-126) U/L Total Protein 4.6 L (6.3-8.2) g/dL Albumin 2.1 L (3.5-5.0) g/dL Assessment and Plan Plan: Left axillary cellulitis. Patient will continue receive IV antibiotic. There is no drainable abscess per CAT scan. We will follow with you.
[2016-12-14 19:59] LABS: Glucose,Whole Blood 113 mg/dL (75-99)
--- NOTE | 2016-12-14 21:22 | P.PN ---
Subjective Principal diagnosis: Generalized weakness 61-year-old female is underlying history of schizophrenia and is cared for in a assisted environment has been ill for approximately 3 days. It is noted by the current available evidence. She does have a caregiver that help with the information admission. She is having difficulties with her left axillary area with some drainage. Then it was noted that she suffered what was thought to be a bee sting on to the left arm area. Developed extensive rash and hives and some shortness of breath. She was treated with Benadryl as well as epinephrine and Solu-Medrol. She is brought to the intensive care unit. She 'was hypotensive and was having difficulty with her speech. Speech however is at its baseline abnormal. She recovered from the hives. Continues to have cellulitis of the left axillary area The patient does respond to simple questions. Seems to be more comfortable today. Denied new symptoms. Doing Less confused able to answer that she is in the hospital. She's in the [facility]. Much improved mental status. Computed tomography scan has been performed revealing evidence of some phlegmon the left axillary area Objective - Vital Signs Vital signs: Vital Signs Temp 98.5 F 12/14/16 15:00 Pulse 74 12/14/16 21:04 Resp 18 12/14/16 15:00 BP 131/65 12/14/16 15:00 Pulse Ox 96 12/14/16 15:00 Intake & Output 12/14/16 12/14/16 12/15/16 06:59 18:59 06:59 Intake Total 200 Output Total 1825 4050 Balance -1625 -4050 Intake: IV 200 ceFAZolin 2 gm In Sodium 200 Chloride 0.9% 100 ml @ 100 mls/hr IVPB Q8HR [facility] Rx#:[id number] Output: Urine 1825 4050 Straight 1825 Other: Voiding Method Indwelling Catheter Indwelling Catheter # Bowel Movements 1 - Exam 61-year-old woman who appears older than her stated age. Occasionally open eyes to the exam. Occasional responses are noted. HEENT: Anicteric conjunctiva are pink and moist nasal mucosa grossly intact without significant lesions, there is no thrush. Oral mucosa is dry Neck: The neck is supple without significant lymphadenopathy or thyromegaly. Lungs: Good bilateral air entry without significant crackles or wheezing. There is no significant bronchial sounds. There is no egophony or dullness. Heart: Regular rate and rhythm with an audible S1-S2, no S3 no S4. There is no significant murmur click or rub, PMI was nondisplaced. Abdomen: Positive bowel sounds soft and nontender without palpable masses or organomegaly. There was no guarding or rebound. Extremities: The upper extremities have excellent pulses they are symmetric, no significant petechiae or telangiectasia. No splinter hemorrhages were noted. The left axillary area is evidence of the improved erythema, the pustule is improved. There is no further purulent drainage at this time. The lower extremities are free from significant lesions the peripheral pulses were 2+ and symmetric. Neuro: Arousable mproved mental status answering simple - Labs CBC & Chem 7: 12/13/16 06:54 12/14/16 07:39 Labs: Abnormal Lab Results - Last 24 Hours (Table) 12/14/16 12/14/16 12/14/16 Range/Units 07:39 11:38 17:13 Sodium 135 L (137-145) mmol/L BUN 25 H (7-17) mg/dL POC Glucose (mg/dL) 119 H 122 H (75-99) mg/dL Calcium 7.8 L (8.4-10.2) mg/dL Total Protein 4.6 L (6.3-8.2) g/dL Albumin 2.1 L (3.5-5.0) g/dL 12/14/16 Range/Units 19:58 Sodium (137-145) mmol/L BUN (7-17) mg/dL POC Glucose (mg/dL) 113 H (75-99) mg/dL Calcium (8.4-10.2) mg/dL Total Protein (6.3-8.2) g/dL Albumin (3.5-5.0) g/dL Laboratory Results WBC 10.5 k/uL (3.8-10.6) 12/13/16 06:54 RBC 3.32 m/uL (3.80-5.40) L 12/13/16 06:54 Hgb 10.7 gm/dL (11.4-16.0) L 12/13/16 06:54 Hct 33.7 % (34.0-46.0) L 12/13/16 06:54 MCV 101.5 fL (80.0-100.0) H 12/13/16 06:54 MCH 32.3 pg (25.0-35.0) 12/13/16 06:54 MCHC 31.8 g/dL (31.0-37.0) 12/13/16 06:54 RDW 13.8 % (11.5-15.5) 12/13/16 06:54 Plt Count 275 k/uL (150-450) 12/13/16 06:54 Neutrophils % 90 % 12/13/16 06:54 Neutrophils % (Manual) 78.0 % 12/07/16 06:43 Band Neutrophils % 16.5 % 12/07/16 06:43 Lymphocytes % 5 % 12/13/16 06:54 Lymphocytes % (Manual) 4.0 % 12/07/16 06:43 Monocytes % 3 % 12/13/16 06:54 Monocytes % (Manual) 1.0 % 12/07/16 06:43 Eosinophils % 0 % 12/13/16 06:54 Eosinophils % (Manual) 0.5 % 12/06/16 04:25 Basophils % 0 % 12/13/16 06:54 Metamyelocytes % 1.0 % 12/06/16 04:25 Myelocytes % 0.5 % 12/07/16 06:43 Neutrophils # 9.5 k/uL (1.3-7.7) H 12/13/16 06:54 Neutrophils # (Manual) 10.3 k/uL (1.3-7.7) H 12/07/16 06:43 Lymphocytes # 0.6 k/uL (1.0-4.8) L 12/13/16 06:54 Lymphocytes # (Manual) 0.4 k/uL (1.0-4.8) L 12/07/16 06:43 Monocytes # 0.4 k/uL (0-1.0) 12/13/16 06:54 Monocytes # (Manual) 0.1 k/uL (0-1.0) 12/07/16 06:43 Eosinophils # 0.0 k/uL (0-0.7) 12/13/16 06:54 Eosinophils # (Manual) 0.0 k/uL (0-0.7) 12/06/16 04:25 Basophils # 0.0 k/uL (0-0.2) 12/13/16 06:54 Nucleated RBCs 0 /100 WBC (0-0) 12/07/16 06:43 Manual Slide Review Performed 12/08/16 05:52 Toxic Vacuolation Present 12/06/16 04:25 Polychromasia Present 12/06/16 04:25 Hypochromasia Slight 12/12/16 07:00 Poikilocytosis (manual Present 12/08/16 05:52 Anisocytosis (manual) Present 12/06/16 04:25 Macrocytosis Slight 12/13/16 06:54 Crenated Cell Present 12/06/16 04:25 ESR 110 mm/hr (0-20) H 12/06/16 14:55 PT 10.6 sec (9.0-12.0) 12/04/16 19:36 INR 1.0 (<1.2) 12/04/16 19:36 APTT 34.1 sec (22.0-30.0) H 12/08/16 05:52 D-Dimer 5.28 mg/L FEU (<0.60) H 12/04/16 19:36 Sample Site [facility] 12/10/16 11:45 ABG pH 7.49 (7.35-7.45) H 12/10/16 11:45 ABG pCO2 29 mmHg (35-45) L 12/10/16 11:45 ABG pO2 83 mmHg (83-108) 12/10/16 11:45 ABG HCO3 22 mmol/L (21-25) 12/10/16 11:45 ABG Total CO2 22 mmol/L (19-24) 12/10/16 11:45 ABG O2 Saturation 97.0 % (94-97) 12/10/16 11:45 ABG Base Excess -1.5 mmol/L 12/10/16 11:45 ABG Hematocrit 34 % (34.0-46.0) 12/05/16 11:45 FiO2 32 % 12/10/16 11:45 Sodium 135 mmol/L (137-145) L 12/14/16 07:39 Potassium 4.1 mmol/L (3.5-5.1) 12/14/16 07:39 Chloride 104 mmol/L (98-107) 12/14/16 07:39 Carbon Dioxide 29 mmol/L (22-30) 12/14/16 07:39 Anion Gap 2 mmol/L 12/14/16 07:39 BUN 25 mg/dL (7-17) H 12/14/16 07:39 Creatinine 0.71 mg/dL (0.52-1.04) 12/14/16 07:39 Est GFR (MDRD) Af Amer >60 (>60 ml/min/1.73 sqM) 12/14/16 07:39 Est GFR (MDRD) Non-Af >60 (>60 ml/min/1.73 sqM) 12/14/16 07:39 Glucose 81 mg/dL (74-99) 12/14/16 07:39 POC Glucose (mg/dL) 113 mg/dL (75-99) H 12/14/16 19:58 POC Glu Behavioral Health Counselor ID Shavon Nieves 12/14/16 19:[address] Glu mg/dL 128 mg/dL 12/05/16 04:12 Hemoglobin A1c 6.1 % (4.2-6.1) 12/05/16 04:12 Lactic Ac Sepsis Rflx Y 12/04/16 20:23 Plasma Lactic Acid Britton 2.0 mmol/L (0.7-2.0) 12/05/16 00:02 Calcium 7.8 mg/dL (8.4-10.2) L 12/14/16 07:39 Phosphorus 3.0 mg/dL (2.5-4.5) 12/07/16 06:43 Magnesium 2.3 mg/dL (1.6-2.3) 12/08/16 05:52 Total Bilirubin 0.4 mg/dL (0.2-1.3) 12/14/16 07:39 AST 24 U/L (14-36) 12/14/16 07:39 ALT 19 U/L (9-52) 12/14/16 07:39 Alkaline Phosphatase 68 U/L (38-126) 12/14/16 07:39 Total Creatine Kinase 504 U/L (30-135) H 12/05/16 07:24 CK-MB (CK-2) 7.8 ng/mL (0.0-2.4) H* 12/05/16 07:24 CK-MB (CK-2) Rel Index 1.5 12/05/16 07:24 Troponin I <0.012 ng/mL (0.000-0.034) 12/05/16 07:24 C-Reactive Protein 401.6 mg/L (<10.0) H 12/06/16 14:55 NT-Pro-B Natriuret Pep 8270 pg/mL 12/04/16 19:36 Total Protein 4.6 g/dL (6.3-8.2) L 12/14/16 07:39 Albumin 2.1 g/dL (3.5-5.0) L 12/14/16 07:39 Vitamin B12 >1000 pg/mL (239-931) H 12/06/16 14:55 Vit D 1,25-Dihydroxy 88 pg/mL (20 - 79) H 12/06/16 14:55 Alpha-Tocopherol 1512 ug/dL (500-1800) 12/06/16 14:55 Vitamin K 73 pg/mL (80-1160) L 12/06/16 14:55 Urine Color Dark Brown 12/04/16 20:18 Urine Appearance Cloudy (Clear) H 12/04/16 20:18 Urine pH 5.0 (5.0-8.0) 12/04/16 20:18 Ur Specific [place] 1.018 (1.001-1.035) 12/04/16 20:18 Urine Protein 1+ (Negative) H 12/04/16 20:18 Urine Glucose (UA) Negative (Negative) 12/04/16 20:18 Urine Ketones Negative (Negative) 12/04/16 20:18 Urine Blood Negative (Negative) 12/04/16 20:18 Urine Nitrite Negative (Negative) 12/04/16 20:18 Urine Bilirubin 1+ (Negative) H 12/04/16 20:18 Urine Urobilinogen 4.0 mg/dL (<2.0) 12/04/16 20:18 Ur Leukocyte Esterase Negative (Negative) 12/04/16 20:18 Urine RBC 1 /hpf (0-5) 12/04/16 20:18 Urine WBC 3 /hpf (0-5) 12/04/16 20:18 Urine Bacteria Rare /hpf (None) H 12/04/16 20:18 Hyaline Casts 4 /lpf (0-2) H 12/04/16 20:18 Urine Yeast (Budding) Few /hpf (None) H 12/04/16 20:18 Random Vancomycin 6.2 ug/mL 12/07/16 06:43 Urine Opiates Screen Not Detected (NotDetected) 12/04/16 20:18 Ur Oxycodone Screen Not Detected (NotDetected) 12/04/16 20:18 Urine Methadone Screen Not Detected (NotDetected) 12/04/16 20:18 Ur Propoxyphene Screen Not Detected (NotDetected) 12/04/16 20:18 Ur Barbiturates Screen Not Detected (NotDetected) 12/04/16 20:18 U Tricyclic Antidepress Detected (NotDetected) H 12/04/16 20:18 Ur Phencyclidine Scrn Not Detected (NotDetected) 12/04/16 20:18 Ur Amphetamines Screen Not Detected (NotDetected) 12/04/16 20:18 U Methamphetamines Scrn Not Detected (NotDetected) 12/04/16 20:18 U Benzodiazepines Scrn Detected (NotDetected) H 12/04/16 20:18 Urine Cocaine Screen Not Detected (NotDetected) 12/04/16 20:18 U Marijuana (THC) Screen Not Detected (NotDetected) 12/04/16 20:18 JANAK Antibody <5 IU/mL (<5) 12/06/16 14:55 Microbiology 12/04/16 19:36 Blood Blood Culture - Final No Growth after 144 hours 12/04/16 21:30 Axilla - Left Gram Stain - Final 12/04/16 21:30 Axilla - Left Wound Culture - Final Staphylococcus aureus 12/04/16 20:18 Urine,Catheterized Urine Culture - Final - Imaging and Cardiology CT scan - chest: report reviewed (Phlegmon without evidence of distinct abscess) Assessment and Plan (1) Anaphylactic reaction Status: Acute (2) Abscess of axilla, left Narrative/Plan: 61-year-old female presents from her residential with some increasing weakness. Admission without evidence of sepsis apparently in the base of the significant cellulitis and abscess to her left axillary area. She hasn't had the significant hives and swelling responded well to intervention with Benadryl , epinephrine and steroids. She apparently is improved from her admission. The extensive acidosis was noted and is being corrected. Antibiotic therapy was initiated with vancomycin and ampicillin sulbactam. Given her acute renal failure we'll avoid further doses of vancomycin in utilize Ceftaroline was to give coverage for MRSA as well as staph and strep which we, pathogens of the axillary area. Continue ongoing supportive care. Dry dressing for the drainage. Cultures in process. The patient is now improved. Cultures have come back as MSSA. Ceftaroline was transitioned to Ancef 2 g IVPB back every 8 hours given her marked improved renal failure. Continue for now. Her acidosis has resolved. Overall she is improving. With the improved renal function CT angiogram has been performed without evidence of a pulmonary embolus. With negative blood cultures will not plan for outpatient intravenous antibiotic therapy. the axillary areas improving. Computed tomography scan of the area was performed without evidence of an axillary abscess that can be drained. Continue antibiotic therapy. Status: Acute
[2016-12-14] MEDS: ATORVASTATIN 10 MG TAB PO SCH (22:22)
[2016-12-14] MEDS: ALPRAZolam 0.5 MG TAB PO PRN (23:59)
[2016-12-15 07:08] LABS: Glucose,Whole Blood 107 mg/dL (75-99)
[2016-12-15] MEDS: ALBUTEROL NEBULIZED 2.5 MG/3 ML INHALATION PRN ×2 (07:11→19:53)
[2016-12-15] MEDS: BUDESONIDE 0.5 MG/2 ML NEBU INHALATION SCH ×2 (07:11→19:53)
[2016-12-15] MEDS: INSULIN LISPRO (humaLOG) 300 UNIT/3 ML VIAL SQ SCH ×4 (07:29→21:45)
[2016-12-15 08:47] LABS: ALT 23 U/L (9-52); AST 25 U/L (14-36); Alkaline Phosphatase 69 U/L (38-126); Anion Gap 3 mmol/L; Blood Urea Nitrogen 20 mg/dL (7-17); Calcium 8.1 mg/dL (8.4-10.2); Carbon Dioxide 34 mmol/L (22-30); Chloride 98 mmol/L (98-107); Glucose 88 mg/dL (74-99); Non-African American GFR(MDRD) >60 (>60 ml/min/1.73 sqM); Potassium 4.9 mmol/L (3.5-5.1); Sodium 135 mmol/L (137-145); Total Bilirubin 0.5 mg/dL (0.2-1.3); Total Protein 4.8 g/dL (6.3-8.2)
[2016-12-15] MEDS: HEPARIN SODIUM,PORCINE 5,000 UNIT/ML 1 ML VIAL SQ SCH ×2 (08:53→16:32)
[2016-12-15] MEDS: ASPIRIN 81 MG CHEW PO SCH (08:53)
[2016-12-15] MEDS: ceFAZolin 2 GM in SODIUM CHLORIDE 0.9% 100 ML IVPB SCH ×2 (08:53→16:32)
[2016-12-15] MEDS: CITALOPRAM HYDROBROMIDE 20 MG TAB PO SCH (08:54)
[2016-12-15] MEDS: GABAPENTIN 300 MG CAP PO SCH ×2 (08:54→21:41)
[2016-12-15] MEDS: FAMOTIDINE 20 MG TAB PO SCH ×2 (08:54→21:42)
[2016-12-15] MEDS: METOPROLOL TARTRATE 25 MG TAB PO SCH ×3 (08:55→21:41)
[2016-12-15] MEDS: NYSTATIN 100,000 UNIT/ML SUSP 500,000 UNIT/5 ML CUP PO SCH ×4 (08:55→21:41)
[2016-12-15] MEDS: SENNOSIDES 8.6 MG TAB PO SCH ×2 (08:55→21:42)
[2016-12-15] MEDS: LORATADINE 10 MG TAB PO SCH (08:55)
[2016-12-15] MEDS: methylPREDNISolone SOD SUCCI 40 MG/ML 1 ML VIAL IV SCH ×2 (08:55→21:42)
[2016-12-15 09:04] LABS: Basophils % (A) 0 %; CHCM 31.9; Eosinophils % (A) 0 %; HCT 35.5 % (34.0-46.0); HDW 2.13; HGB 11.5 gm/dL (11.4-16.0); Luc # (Auto) 0.07; Luc % (Auto) 1; Lymphocytes # (A) 0.6 k/uL (1.0-4.8); Lymphocytes % (A) 7 %; MCH 32.8 pg (25.0-35.0); MCHC 32.5 g/dL (31.0-37.0); MCV 100.9 fL (80.0-100.0); Macrocytosis Slight; Mean Platelet Volume 8.9; Monocytes # (A) 0.3 k/uL (0-1.0); Monocytes % (A) 3 %; Neutrophils # (A) 6.9 k/uL (1.3-7.7); Neutrophils % (A) 88 %; RBC 3.52 m/uL (3.80-5.40); RDW 13.7 % (11.5-15.5); WBC 7.9 k/uL (3.8-10.6); WBC (Perox) 7.83
--- NOTE | 2016-12-15 11:24 | XR ---
EXAMINATION TYPE: XR chest 1V portable DATE OF EXAM: 12/15/2016 COMPARISON: Prior chest x-ray 12/11/2016 HISTORY: Shortness of breath, difficulty breathing TECHNIQUE: Single frontal view of the chest is obtained. FINDINGS: Patient is rotated. Postop change noted to the cervical spine. Heart size is again increas ed. Retrocardiac density is suspected. No evident pneumothorax. IMPRESSION: There may be left lower lobe atelectasis and possible associated effusion. Cardiomegaly. Rotated exam. Follow-up PA and lateral chest x-ray is suggested.
[2016-12-15 11:59] LABS: Glucose,Whole Blood 166 mg/dL (75-99)
--- NOTE | 2016-12-15 12:22 | P.PN ---
Subjective 12/06/16- This is a 61-year-old female who came into emergency department with shortness of breath and generalized weakness that had been developing over the last 3-4 days. Apparently the patient was stung by a bee in her left axilla, the area became extremely itchy with a diffuse reddened rash. The patient states she also shaved her left axilla in the cellulitis developed. The patient became unresponsive and received an EpiPen injection as well as Benadryl with EMS. This [facility] at a [facility]. In the emergency room the patient was noted to have a d-dimer of 5.28 so she was also started on heparin drip, which is currently therapeutic. She was also noted to the septic with a lactic acid of 2.5. Urine drug screen was completed and was positive for tricyclic antidepressants and benzodiazepines. She she was admitted to the medical floor and was also given a dose of Ativan. The patient became somnolent with oxygen saturations 49%. Subsequently she was transferred to the ICU. The patient has since been on BiPAP and her oxygen saturations have improved. However throughout the night the patient was hypotensive but maintained her urine output therefore she was given IV boluses which was effective in bringing up her blood pressure. Patient is also on Solu-Medrol, antibiotics and IV Benadryl. Patient is also noted to be acidotic tenderness on IV fluids of D5W with 3 A of bicarb at 50ml/hr. Wound culture of the left axilla has been taken and is presumptive staph aureus. Upon examination the patient's resting in bed on BiPAP she continues to be somewhat somnolent however responds to voice commands slowly. BiPAP settings IPAP of 12 EPAP of 5 FiO2 35% oxygen saturations 98%. Patient also has a history of being mentally challenged and slurs her speech as a baseline due to a deficit of a previous CVA /TIA. 12/08/15- upon examination today the patient's resting up in bed on 3 L of supplemental oxygen. Patient is alert and oriented 1. Patient is less lethargic today than yesterday. Liver the patient still becomes short of breath with exertion or extensive conversation. States labs were reviewed and her white count is now to 10.9, sodium 140 potassium 3.3 chloride 111 carbon dioxide 22 BUN 45 creatinine 1.3. Patient should have a VQ scan once okayed by nephrology. 12/09/15- on examination today the patient is resting up in bed on 2 L of supplemental oxygen. The patient continues to be very sleepy and currently we are investigating her home medication and dosage of Seroquel that she [facility] at the [facility]. Excessive sleepiness could be due to this medication and we will hold at this time. Neuro is also on consults. Patient did have her CT a of the chest yesterday which showed no evidence of pulmonary embolism, interstitial pulmonary infiltrates with some atelectasis at the lung bases and small pleural effusions were noted. It is suggested on the impression this could be due to congestive heart failure. Cardiology is also on consult. Patient's heparin drip could be stopped due to no pulmonary embolism. Patient continues to be short of breath with exertion. hemodynamically she is much better. 12/09/16- the patient was downgraded yesterday from the ICU. Today she is seen on the selective care unit resting up in bed on 2-3 L of supplemental oxygen. She continues to be sleepy however less sleepy than yesterday. She does state she has intermittent shortness of breath with exertion. She denies any cough or congestion. Per the nursing staff the patient has been intermittently taking off her oxygen. The patient has been educated on the importance of keeping the oxygen on at this time. Her cellulitis is slowly improving. Mentation remains about the same. 12/10/16- on examination the patient is not orientated. The patient continuously mumbles and it is unclear whether she is trying to say. The patient's states this is not the patient's baseline. She is awake and can make eye contact, she listens when spoken to however she does not respond to commands. Apparently the patient did have oxygen saturations above 92% earlier this morning therefore she was switched to room air however on examination she is noted to have a decreased oxygen saturation in the 80s so supplemental oxygen is put back on the patient. The patient is known to continue to take her oxygen on and off intermittently. Education has been provided to the patient on importance of keeping her oxygen on at this time however is not clear if the patient is understanding due to her mentation. We will obtain stat ABGs as well as what neurology no about the patient's decline in mentation. 12/11/16-today and the patient is much more alert, continues with intermittent confusion. I am able to make out what he says speech is much more clear today however she still mumbles on occasion. More dynamically she is stable. Currently she is on 4 L of supplemental oxygen via nasal cannula. Oxygen saturations in the mid 90s. She does respond to commands today. She is keeping her oxygen on today as well. ABGs from yesterday were obtained and were normal. Patient is still being seen by nephrology. Labs and chest x-ray are reviewed. Chest x-ray shows left basilar infiltrate and small effusion with central interstitial pattern correlate for interstitial pneumonitis versus venous congestion. patient seen and evaluated examined today she is awake but intermittently confused as any [facility] symptoms however continued to require supplemental oxygen oxygen saturation has been stable limited data reviewed radiographic studies reviewed as well 12/13/16, patient seen and evaluated examined regularly she is doing better more awake and alert breathing comfortably cuff congestion shortness of breath has improved she remains on broad IV cefazolin ID service is following 12/14/16, patient is seen and examined today and is much more awake today. She continues to use supplemental oxygen. She continues to get short of breath with exertion. Patient does continue to complain of some oropharyngeal thrush. She is already on medications for this. CT of the left upper extremity is reviewed from yesterday which shows a limited study however there is a moderate- sized area of inflammatory phlegmon in the region of the left axilla extending along the left lateral chest wall, a drainable collection is not appreciated with absolute certainty. 12/15/16 patient is seen and examined today and appears much more comfortable though. She is currently on room air. She does have intermittent shortness of breath with exertion. Her oropharyngeal thrush has improved. Surgical will not go forth with training due to lack of CT showing an abscess that can be drained. Blood cultures were negative therefore she will not need outpatient IV therapy. Labs are reviewed. Patient's portable chest x-ray does show left lower lobe atelectasis and possible associated effusion follow-up chest x-ray 2 view is advised. Objective - Vital Signs Vital signs: Vital Signs Temp 98.1 F 12/15/16 07:00 Pulse 68 12/15/16 07:27 Resp 16 12/15/16 07:00 BP 118/66 12/15/16 07:00 Pulse Ox 96 12/15/16 07:00 Intake & Output 12/14/16 12/15/16 12/15/16 18:59 06:59 18:59 Intake Total 690 Output Total 4050 1300 Balance -4050 -610 Intake: Oral 690 Output: Urine 4050 1300 Other: Voiding Method Indwelling Catheter Indwelling Catheter Indwelling Catheter # Bowel Movements 1 - Exam GENERAL EXAM: Awake, intermittent confusion noted slightly restless, in no apparent distress. HEAD: Normocephalic. EYES: Normal reaction of pupils, equal size. Dry eyes NOSE: Clear with pink turbinates. THROAT: No erythema or exudates. Oropharyngeal thrush NECK: No masses, no JVD. CHEST: No chest wall deformity. LUNGS: Equal air entry with no crackles, wheeze, rhonchi or dullness. Diminished CVS: S1 and S2 normal with no audible mumurs, regular rhythm. ABDOMEN: No hepatosplenomegaly, normal bowel sounds, no guarding or rigidity. EXTREMITIES: No edema noted, pedal pulses palpable. SKIN: Left axilla noted to have an definite indurated area of erythema the area is firm and hot. The small less than 1 cm pustule is noted in the middle of the axilla currently no drainage is seen. Cellulitis improving CENTRAL NERVOUS SYSTEM: No focal deficits, tone is normal in all 4 extremities. - Labs CBC & Chem 7: 12/15/16 08:07 12/15/16 08:07 Labs: Abnormal Lab Results - Last 24 Hours (Table) 12/14/16 12/14/16 12/15/16 Range/Units 17:13 19:58 07:00 RBC (3.80-5.40) m/uL MCV (80.0-100.0) fL Lymphocytes # (1.0-4.8) k/uL Sodium (137-145) mmol/L Carbon Dioxide (22-30) mmol/L BUN (7-17) mg/dL POC Glucose (mg/dL) 122 H 113 H 107 H (75-99) mg/dL Calcium (8.4-10.2) mg/dL Total Protein (6.3-8.2) g/dL Albumin (3.5-5.0) g/dL 12/15/16 12/15/16 12/15/16 Range/Units 08:07 08:07 11:56 RBC 3.52 L (3.80-5.40) m/uL MCV 100.9 H (80.0-100.0) fL Lymphocytes # 0.6 L (1.0-4.8) k/uL Sodium 135 L (137-145) mmol/L Carbon Dioxide 34 H (22-30) mmol/L BUN 20 H (7-17) mg/dL POC Glucose (mg/dL) 166 H (75-99) mg/dL Calcium 8.1 L (8.4-10.2) mg/dL Total Protein 4.8 L (6.3-8.2) g/dL Albumin 2.2 L (3.5-5.0) g/dL Assessment and Plan Plan: Assessment Anaphylaxis reaction related to bee sting Metabolic acidosis and elevated d-dimer due to severe sepsis, related to staph wound infection and acute renal failure Acute hypoxic respiratory failure, Hypotension Left abscess of the axilla Cellulitis of the left axilla Schizoaffective disorder Anxiety Hypokalemic Morbid obesity Plan We will obtain a two-view chest x-ray in the morning. Patient's mentation has improved. Medications have been reviewed and will be continued as ordered. Continue with IV antibiotics, Benadryl and steroids. Replace electrolytes and monitor per protocol. Cultures have come back as MSSA. Antibiotics had been adjusted by infectious disease. Continue with pulmonary hygiene, coughing and deep breathing exercises, and supportive care. Supplemental oxygen or BiPAP to maintain oxygen saturations of 92% or better. She will require a polysomnogram in the outpatient setting. Continue nebulizer treatments. GI and DVT prophylaxis. Continue with Neuro, ID, and nephro consults and appreciate recommendations. We will continue to monitor labs/results and adjust treatment as necessary. Further recommendations pending. I performed an examination of the patient and discussed their management with the nurse practitioner. I have reviewed the nurse practitioner's note and agree with the documented findings and plan of care.
[2016-12-15] MEDS: CHOLECALCIFEROL 1,000 UNIT TAB PO SCH (12:44)
[2016-12-15] MEDS: VIT A,C & E-LUTEIN-MINERALS 1 EACH TAB PO SCH (12:44)
[2016-12-15 17:22] LABS: Glucose,Whole Blood 122 mg/dL (75-99)
--- NOTE | 2016-12-15 17:40 | P.PN ---
Subjective Ms. Corey is a 61-year-old patient of visiting physicians Dr. Muro. Patient is resident of a [facility]. Patient's chronic stable medical conditions include coronary artery disease with a 50% LAD lesion, GERD, hypertension, hyperlipidemia, schizoaffective disorder, anxiety, peripheral neuropathy and macular degeneration. Patient apparently for 3 days had noticed swelling and redness of the left arm not sure if something can better and presented to ER. Patient was found to be hypotensive with extensive rash and patient is given IV Solu-Medrol IV Benadryl and Pepcid and admitted to the medical floor. Patient became hypotensive and hypoxic was transferred to the intensive care unit with a consultation to critical care and infectious disease. Patient got a definite induration and redness in the left axillary area. Patient does confirm that she does use a razor in the left armpit. Patient was acidotic and was put on a bicarbonate drip patient also found to be in acute renal failure. Patient's condition improved with IV antibiotics. On 12/10/16 - Pt was found to be Hypoxic , so ABG obtained and she was then placed on BiPAP . She is currently on Bipap not in respiratory distress. On 12/11/16 Pt.s respiratory status much improved. saturating well on NC. was able to answer. no fever/chils. no overnight issues. Review of systems - She states that she is feeling very weak and tired. She denies having any chest pain or cough. No complaints of any abdominal pain nausea vomiting or diarrhea. She has difficulty in breathing . 12/12/16 states that she feels more cloudy today no fevers, chills, nausea, vomiting, diarrhea reported discharge from her axilla is reported 06/26/2016 Patient states to be slightly improved however continues to have discharge from her axillary region No fevers chills nausea vomiting or diarrhea reported 12/14/16 slightly improved continues to have drainage from her left axilla 12/15/16 increased drainage is reported from the left axilla NO fevers - Exam GENERAL EXAM: Less somnolent today, comfortable in no apparent distress. HEAD: Normocephalic. EYES: Normal reaction of pupils, equal size. Dry eyes NECK: No masses, no JVD. LUNGS: Equal air entry . Diminished BS in all lung doyle. Coarse breath sounds at the lower bases. CVS: S1 and S2 normal with no audible mumurs, regular rhythm. ABDOMEN: No hepatosplenomegaly, normal bowel sounds, no guarding or rigidity. EXTREMITIES: No edema noted, pedal pulses palpable. SKIN: Left axilla noted to have an induration that is firm and hot. A small pustule is noted in the middle of the axilla currently drainage is seen. light yellowish foul smelling extending into the upper left scapular region CENTRAL NERVOUS SYSTEM: No focal deficits, tone is normal in all 4 extremities. Assessment and Plan Plan: Assessment - Acute Hypoxic respiratory failure - resolved . was placed on BiPAP. on NC now. - Acute ALLERGIC reaction could be from an insect bite exact cause unknown responded well - Left axillary cellulitis -Acute exacerbation of intermittent asthma causing acute hypoxic respiratory failure -Coronary artery disease with non-obstructive 50% LAD lesion -GERD -Essential hypertension -Hyperlipidemia -Metabolic acidosis -Hyponatremia - hypovolemic hyponatremia -Schizoaffective disorder, chronic -Anxiety disorder and otherwise specified -Peripheral neuropathy cause unknown -Acute metabolic encephalopathy multifactorial -Acute renal failure, nonoliguric probably ATN DUE TO HYPOTENSION CODE STATUS full code PLAN Computed tomography scan is reviewed however there is significant amount of drainage that is noted there is a large phlegmon there is no drainable pus cavity however will consult general surgery for a slight I/D in order to decrease the area of infection thereafter could be dressed appropriately and treated with antibiotics discussed regarding reeval with Dr Alvarez Objective - Vital Signs Vital signs: Vital Signs Temp 98.1 F 12/15/16 07:00 Pulse 68 12/15/16 07:27 Resp 16 12/15/16 07:00 BP 118/66 12/15/16 07:00 Pulse Ox 96 12/15/16 07:00 Intake & Output 12/14/16 12/15/16 12/15/16 18:59 06:59 18:59 Intake Total 690 100 Output Total 4050 1300 Balance -4050 -610 100 Weight 122.9 kg Intake: IV 100 ceFAZolin 2 gm In Sodium 100 Chloride 0.9% 100 ml @ 100 mls/hr IVPB Q8HR [facility] Rx#:[id number] Oral 690 Output: Urine 4050 1300 Other: Voiding Method Indwelling Catheter Indwelling Catheter Indwelling Catheter # Bowel Movements 1 - Labs CBC & Chem 7: 12/15/16 08:07 07/25/17 08:07 Labs: Abnormal Lab Results - Last 24 Hours (Table) 12/14/16 12/15/16 12/15/16 Range/Units 19:58 07:00 08:07 RBC 3.52 L (3.80-5.40) m/uL MCV 100.9 H (80.0-100.0) fL Lymphocytes # 0.6 L (1.0-4.8) k/uL Sodium (137-145) mmol/L Carbon Dioxide (22-30) mmol/L BUN (7-17) mg/dL POC Glucose (mg/dL) 113 H 107 H (75-99) mg/dL Calcium (8.4-10.2) mg/dL Total Protein (6.3-8.2) g/dL Albumin (3.5-5.0) g/dL 12/15/16 12/15/16 12/15/16 Range/Units 08:07 11:56 17:20 RBC (3.80-5.40) m/uL MCV (80.0-100.0) fL Lymphocytes # (1.0-4.8) k/uL Sodium 135 L (137-145) mmol/L Carbon Dioxide 34 H (22-30) mmol/L BUN 20 H (7-17) mg/dL POC Glucose (mg/dL) 166 H 122 H (75-99) mg/dL Calcium 8.1 L (8.4-10.2) mg/dL Total Protein 4.8 L (6.3-8.2) g/dL Albumin 2.2 L (3.5-5.0) g/dL
--- NOTE | 2016-12-15 19:17 | P.PN ---
Progress Note - Text The patient is resting comfortably in bed. She still has some pain near her left examined. There was some concern that she had some drainage. On exam her vital signs appear stable. Her white count was normal. The induration and cellulitis of the left insula has slightly improved. I do not feel an abscess which is drainable. Patient to receive IV antibiotic. We will reassess her in the a.m.
[2016-12-15 20:49] LABS: Glucose,Whole Blood 153 mg/dL (75-99)
[2016-12-15] MEDS: ATORVASTATIN 10 MG TAB PO SCH (21:42)
[2016-12-16] MEDS: ceFAZolin 2 GM in SODIUM CHLORIDE 0.9% 100 ML IVPB SCH ×4 (00:06→23:36)
[2016-12-16] MEDS: HEPARIN SODIUM,PORCINE 5,000 UNIT/ML 1 ML VIAL SQ SCH ×4 (00:06→23:18)
[2016-12-16] MEDS: ALPRAZolam 0.5 MG TAB PO PRN (00:29)
[2016-12-16 07:42] LABS: Glucose,Whole Blood 115 mg/dL (75-99)
[2016-12-16] MEDS: INSULIN LISPRO (humaLOG) 300 UNIT/3 ML VIAL SQ SCH ×4 (08:04→20:24)
[2016-12-16] MEDS: LORATADINE 10 MG TAB PO SCH (08:10)
[2016-12-16] MEDS: GABAPENTIN 300 MG CAP PO SCH ×2 (08:10→23:18)
[2016-12-16] MEDS: methylPREDNISolone SOD SUCCI 40 MG/ML 1 ML VIAL IV SCH ×2 (08:10→23:17)
[2016-12-16] MEDS: CITALOPRAM HYDROBROMIDE 20 MG TAB PO SCH (08:10)
[2016-12-16] MEDS: FAMOTIDINE 20 MG TAB PO SCH ×2 (08:11→23:18)
[2016-12-16] MEDS: NYSTATIN 100,000 UNIT/ML SUSP 500,000 UNIT/5 ML CUP PO SCH ×4 (08:11→23:18)
[2016-12-16] MEDS: SENNOSIDES 8.6 MG TAB PO SCH ×2 (08:12→23:18)
[2016-12-16] MEDS: METOPROLOL TARTRATE 25 MG TAB PO SCH ×3 (08:13→23:18)
[2016-12-16] MEDS: BUDESONIDE 0.5 MG/2 ML NEBU INHALATION SCH ×2 (09:03→20:34)
[2016-12-16 09:36] LABS: Anion Gap 2 mmol/L; Blood Urea Nitrogen 21 mg/dL (7-17); Calcium 7.6 mg/dL (8.4-10.2); Carbon Dioxide 31 mmol/L (22-30); Chloride 99 mmol/L (98-107); Glucose 92 mg/dL (74-99); Non-African American GFR(MDRD) >60 (>60 ml/min/1.73 sqM); Sodium 132 mmol/L (137-145)
[2016-12-16 09:44] LABS: Potassium 5.1 mmol/L (3.5-5.1)
--- NOTE | 2016-12-16 10:55 | P.PN ---
Subjective Patient is seen in follow-up for acute kidney injury. Her baseline creatinine is 1 and was elevated at 3.4 on admission. Acute kidney injury is now resolved. She is nonoliguric. Patient presented with left axillary cellulitis and a questionable insect sting. She was also hypotensive on admission and did receive IV fluids. She was then changed to half-normal saline due to hypernatremia. She is currently off all IV fluids. Sodium level today is 132. Hemodynamically she is stable. She did undergo a CT of the upper extremity with contrast on December 13 which revealed moderate sized inflammation in the left axilla. She scheduled to undergo drainage of abscess today. Vital signs are stable. General: The patient appeared well nourished and normally developed. HEENT: Head exam is unremarkable. Neck is without jugular venous distension. LUNGS: Scattered rhonchi. Breath sounds decreased. HEART: Rate and Rhythm are regular. First and second heart sounds normal. No murmurs, rubs or gallops. ABDOMEN: Abdominal exam reveals normal bowel sounds. Non-tender and non- distended. No evidence of peritonitis. EXTREMITITES: No clubbing, cyanosis, or edema. Objective - Vital Signs Vital signs: Vital Signs Temp 98.6 F 12/16/16 07:00 Pulse 67 12/16/16 08:00 Resp 18 12/16/16 08:00 BP 114/65 12/16/16 07:00 Pulse Ox 95 12/16/16 07:00 Intake & Output 12/15/16 12/16/16 12/16/16 18:59 06:59 18:59 Intake Total 100 1180 Output Total 1500 1600 Balance -1400 -420 Weight 122.9 kg 122.9 kg Intake: IV 100 ceFAZolin 2 gm In Sodium 100 Chloride 0.9% 100 ml @ 100 mls/hr IVPB Q8HR [facility] Rx#:[id number] Oral 1180 Output: Urine 1500 1600 Other: Voiding Method Indwelling Catheter Indwelling Catheter Indwelling Catheter # Bowel Movements 1 - Labs CBC & Chem 7: 12/15/16 08:07 12/16/16 08:21 Labs: Abnormal Lab Results - Last 24 Hours (Table) 12/15/16 12/15/16 12/15/16 Range/Units 11:56 17:20 20:48 Sodium (137-145) mmol/L Carbon Dioxide (22-30) mmol/L BUN (7-17) mg/dL POC Glucose (mg/dL) 166 H 122 H 153 H (75-99) mg/dL Calcium (8.4-10.2) mg/dL 12/16/16 12/16/16 Range/Units 07:22 08:21 Sodium 132 L (137-145) mmol/L Carbon Dioxide 31 H (22-30) mmol/L BUN 21 H (7-17) mg/dL POC Glucose (mg/dL) 115 H (75-99) mg/dL Calcium 7.6 L (8.4-10.2) mg/dL Assessment and Plan Plan: Assessment: #1. Nonoliguric acute kidney injury mostly prerenal secondary to hypotension. Resolved. Creatinine was 3.4 on admission and is down to 0.6 today. Monitor for contrast-induced nephropathy as she did receive IV dye on December 13. #2. Hypotension possibly related to anaphylactic reaction. Resolved. #3. Metabolic acidosis secondary to acute kidney injury. Resolved. #4. Hypernatremia secondary to lack of oral water intake. Resolved. Now hyponatremic. #5. Hypokalemia from renal potassium wasting with recovering renal function. Magnesium replete. Resolved. #6. Left axillary cellulitis with questionable insect sting. Plan: Remains off all IV fluids. Avoid nephrotoxic agents and hypotensive episodes. Encourage oral intake as tolerated. 1.2 L fluid restriction. Repeat electrolytes in the morning. Antibiotics per infectious disease recommendations.
[2016-12-16 11:34] LABS: Glucose,Whole Blood 109 mg/dL (75-99)
--- NOTE | 2016-12-16 12:31 | P.PN ---
Subjective 12/06/16- This is a 61-year-old female who came into emergency department with shortness of breath and generalized weakness that had been developing over the last 3-4 days. Apparently the patient was stung by a bee in her left axilla, the area became extremely itchy with a diffuse reddened rash. The patient states she also shaved her left axilla in the cellulitis developed. The patient became unresponsive and received an EpiPen injection as well as Benadryl with EMS. This patient lives at a custodial. In the emergency room the patient was noted to have a d-dimer of 5.28 so she was also started on heparin drip, which is currently therapeutic. She was also noted to the septic with a lactic acid of 2.5. Urine drug screen was completed and was positive for tricyclic antidepressants and benzodiazepines. She she was admitted to the medical floor and was also given a dose of Ativan. The patient became somnolent with oxygen saturations 49%. Subsequently she was transferred to the ICU. The patient has since been on BiPAP and her oxygen saturations have improved. However throughout the night the patient was hypotensive but maintained her urine output therefore she was given IV boluses which was effective in bringing up her blood pressure. Patient is also on Solu-Medrol, antibiotics and IV Benadryl. Patient is also noted to be acidotic tenderness on IV fluids of D5W with 3 A of bicarb at 50ml/hr. Wound culture of the left axilla has been taken and is presumptive staph aureus. Upon examination the patient's resting in bed on BiPAP she continues to be somewhat somnolent however responds to voice commands slowly. BiPAP settings IPAP of 12 EPAP of 5 FiO2 35% oxygen saturations 98%. Patient also has a history of being mentally challenged and slurs her speech as a baseline due to a deficit of a previous CVA /TIA. 12/08/15- upon examination today the patient's resting up in bed on 3 L of supplemental oxygen. Patient is alert and oriented 1. Patient is less lethargic today than yesterday. Liver the patient still becomes short of breath with exertion or extensive conversation. States labs were reviewed and her white count is now to 10.9, sodium 140 potassium 3.3 chloride 111 carbon dioxide 22 BUN 45 creatinine 1.3. Patient should have a VQ scan once okayed by nephrology. 12/09/15- on examination today the patient is resting up in bed on 2 L of supplemental oxygen. The patient continues to be very sleepy and currently we are investigating her home medication and dosage of Seroquel that she receives at the custodial she attends. Excessive sleepiness could be due to this medication and we will hold at this time. Neuro is also on consults. Patient did have her CT a of the chest yesterday which showed no evidence of pulmonary embolism, interstitial pulmonary infiltrates with some atelectasis at the lung bases and small pleural effusions were noted. It is suggested on the impression this could be due to congestive heart failure. Cardiology is also on consult. Patient's heparin drip could be stopped due to no pulmonary embolism. Patient continues to be short of breath with exertion. hemodynamically she is much better. 12/09/16- the patient was downgraded yesterday from the ICU. Today she is seen on the selective care unit resting up in bed on 2-3 L of supplemental oxygen. She continues to be sleepy however less sleepy than yesterday. She does state she has intermittent shortness of breath with exertion. She denies any cough or congestion. Per the nursing staff the patient has been intermittently taking off her oxygen. The patient has been educated on the importance of keeping the oxygen on at this time. Her cellulitis is slowly improving. Mentation remains about the same. 12/10/16- on examination the patient is not orientated. The patient continuously mumbles and it is unclear whether she is trying to say. The patient's states this is not the patient's baseline. She is awake and can make eye contact, she listens when spoken to however she does not respond to commands. Apparently the patient did have oxygen saturations above 92% earlier this morning therefore she was switched to room air however on examination she is noted to have a decreased oxygen saturation in the 80s so supplemental oxygen is put back on the patient. The patient is known to continue to take her oxygen on and off intermittently. Education has been provided to the patient on importance of keeping her oxygen on at this time however is not clear if the patient is understanding due to her mentation. We will obtain stat ABGs as well as what neurology no about the patient's decline in mentation. 12/11/16-today and the patient is much more alert, continues with intermittent confusion. I am able to make out what he says speech is much more clear today however she still mumbles on occasion. More dynamically she is stable. Currently she is on 4 L of supplemental oxygen via nasal cannula. Oxygen saturations in the mid 90s. She does respond to commands today. She is keeping her oxygen on today as well. ABGs from yesterday were obtained and were normal. Patient is still being seen by nephrology. Labs and chest x-ray are reviewed. Chest x-ray shows left basilar infiltrate and small effusion with central interstitial pattern correlate for interstitial pneumonitis versus venous congestion. patient seen and evaluated examined today she is awake but intermittently confused as any [facility] symptoms however continued to require supplemental oxygen oxygen saturation has been stable limited data reviewed radiographic studies reviewed as well 12/13/16, patient seen and evaluated examined regularly she is doing better more awake and alert breathing comfortably cuff congestion shortness of breath has improved she remains on broad IV cefazolin ID service is following 12/14/16, patient is seen and examined today and is much more awake today. She continues to use supplemental oxygen. She continues to get short of breath with exertion. Patient does continue to complain of some oropharyngeal thrush. She is already on medications for this. CT of the left upper extremity is reviewed from yesterday which shows a limited study however there is a moderate- sized area of inflammatory phlegmon in the region of the left axilla extending along the left lateral chest wall, a drainable collection is not appreciated with absolute certainty. 12/15/16 patient is seen and examined today and appears much more comfortable though. She is currently on room air. She does have intermittent shortness of breath with exertion. Her oropharyngeal thrush has improved. Surgical will not go forth with training due to lack of CT showing an abscess that can be drained. Blood cultures were negative therefore she will not need outpatient IV therapy. Labs are reviewed. Patient's portable chest x-ray does show left lower lobe atelectasis and possible associated effusion follow-up chest x-ray 2 view is advised. 12/16/16-patient is seen and examined today on rounds. We did order a 2 view x- ray to be done this morning however it has not been completed at this time currently we are waiting for those results. Patient continues on room air, continues to have intermittent shortness of breath with exertion. According to the nurse that the patient is going to go for an I&D today with surgical services. Currently we are unaware of what time. Has been increasing drainage from the left axilla wound site. Objective - Vital Signs Vital signs: Vital Signs Temp 98.6 F 12/16/16 07:00 Pulse 67 12/16/16 08:00 Resp 18 12/16/16 08:00 BP 114/65 12/16/16 07:00 Pulse Ox 95 12/16/16 07:00 Intake & Output 12/15/16 12/16/16 12/16/16 18:59 06:59 18:59 Intake Total 100 1180 Output Total 1500 1600 Balance -1400 -420 Weight 122.9 kg 122.9 kg Intake: IV 100 ceFAZolin 2 gm In Sodium 100 Chloride 0.9% 100 ml @ 100 mls/hr IVPB Q8HR [facility] Rx#:[id number] Oral 1180 Output: Urine 1500 1600 Other: Voiding Method Indwelling Catheter Indwelling Catheter Indwelling Catheter # Bowel Movements 1 - Exam GENERAL EXAM: Awake, intermittent confusion noted slightly restless, in no apparent distress. HEAD: Normocephalic. EYES: Normal reaction of pupils, equal size. Dry eyes NOSE: Clear with pink turbinates. THROAT: No erythema or exudates. Oropharyngeal thrush NECK: No masses, no JVD. CHEST: No chest wall deformity. LUNGS: Equal air entry with no crackles, wheeze, rhonchi or dullness. Diminished CVS: S1 and S2 normal with no audible mumurs, regular rhythm. ABDOMEN: No hepatosplenomegaly, normal bowel sounds, no guarding or rigidity. EXTREMITIES: No edema noted, pedal pulses palpable. SKIN: Left axilla noted to have an definite indurated area of erythema the area is firm and hot. The small pustule of the axilla currently increased in drainage. Cellulitis improving CENTRAL NERVOUS SYSTEM: No focal deficits, tone is normal in all 4 extremities. - Labs CBC & Chem 7: 12/15/16 08:07 12/16/16 08:21 Labs: Abnormal Lab Results - Last 24 Hours (Table) 12/15/16 12/15/16 12/16/16 Range/Units 17:20 20:48 07:22 Sodium (137-145) mmol/L Carbon Dioxide (22-30) mmol/L BUN (7-17) mg/dL POC Glucose (mg/dL) 122 H 153 H 115 H (75-99) mg/dL Calcium (8.4-10.2) mg/dL 12/16/16 12/16/16 Range/Units 08:21 11:05 Sodium 132 L (137-145) mmol/L Carbon Dioxide 31 H (22-30) mmol/L BUN 21 H (7-17) mg/dL POC Glucose (mg/dL) 109 H (75-99) mg/dL Calcium 7.6 L (8.4-10.2) mg/dL Assessment and Plan Plan: Assessment Anaphylaxis reaction related to bee sting Metabolic acidosis and elevated d-dimer due to severe sepsis, related to staph wound infection and acute renal failure Acute hypoxic respiratory failure, Hypotension Left abscess of the axilla Cellulitis of the left axilla Schizoaffective disorder Anxiety Hypokalemic Morbid obesity Plan Currently awaiting 2 view x-ray to be completed. Patient will go for an I&D of her left axilla today. Patient's mentation has improved. Medications have been reviewed and will be continued as ordered. Continue with IV antibiotics, Benadryl and steroids. Replace electrolytes and monitor per protocol. Cultures have come back as MSSA. Antibiotics had been adjusted by infectious disease. Continue with pulmonary hygiene, coughing and deep breathing exercises , and supportive care. Supplemental oxygen or BiPAP to maintain oxygen saturations of 92% or better. She will require a polysomnogram in the outpatient setting. Continue nebulizer treatments. GI and DVT prophylaxis. Continue with Neuro, ID, and nephro consults and appreciate recommendations. We will continue to monitor labs/results and adjust treatment as necessary. Further recommendations pending. I performed an examination of the patient and discussed their management with the nurse practitioner. I have reviewed the nurse practitioner's note and agree with the documented findings and plan of care.
--- NOTE | 2016-12-16 14:15 | XR ---
EXAMINATION TYPE: XR chest 2V DATE OF EXAM: 12/16/2016 HISTORY: shortness of breath. REFERENCE: Previous study dated 12/15/2016. FINDINGS: There has been a previous ACDF of the lower cervical spine. The heart is mildly enlarged. There is left lower lobe airspace disease. No definite pleural effusion s are seen. IMPRESSION: 1. CARDIOMEGALY. 2. AIRSPACE DISEASE VERSUS VOLUME LOSS, LEFT LOWER LOBE.
--- NOTE | 2016-12-16 16:42 | P.PN ---
Subjective Ms. Corey is a 61-year-old patient of visiting physicians Dr. Muro. Patient is resident of a senior care called [facility]. Patient's chronic stable medical conditions include coronary artery disease with a 50% LAD lesion, GERD, hypertension, hyperlipidemia, schizoaffective disorder, anxiety, peripheral neuropathy and macular degeneration. Patient apparently for 3 days had noticed swelling and redness of the left arm not sure if something can better and presented to ER. Patient was found to be hypotensive with extensive rash and patient is given IV Solu-Medrol IV Benadryl and Pepcid and admitted to the medical floor. Patient became hypotensive and hypoxic was transferred to the intensive care unit with a consultation to critical care and infectious disease. Patient got a definite induration and redness in the left axillary area. Patient does confirm that she does use a razor in the left armpit. Patient was acidotic and was put on a bicarbonate drip patient also found to be in acute renal failure. Patient's condition improved with IV antibiotics. On 12/10/16 - Pt was found to be Hypoxic , so ABG obtained and she was then placed on BiPAP . She is currently on Bipap not in respiratory distress. On 12/11/16 Pt.s respiratory status much improved. saturating well on NC. was able to answer. no fever/chils. no overnight issues. Review of systems - She states that she is feeling very weak and tired. She denies having any chest pain or cough. No complaints of any abdominal pain nausea vomiting or diarrhea. She has difficulty in breathing . 12/12/16 states that she feels more cloudy today no fevers, chills, nausea, vomiting, diarrhea reported discharge from her axilla is reported 06/26/2016 Patient states to be slightly improved however continues to have discharge from her axillary region No fevers chills nausea vomiting or diarrhea reported 12/14/16 slightly improved continues to have drainage from her left axilla 12/15/16 increased drainage is reported from the left axilla NO fevers - Exam GENERAL EXAM: Less somnolent today, comfortable in no apparent distress. HEAD: Normocephalic. EYES: Normal reaction of pupils, equal size. Dry eyes NECK: No masses, no JVD. LUNGS: Equal air entry . Diminished BS in all lung doyle. Coarse breath sounds at the lower bases. CVS: S1 and S2 normal with no audible mumurs, regular rhythm. ABDOMEN: No hepatosplenomegaly, normal bowel sounds, no guarding or rigidity. EXTREMITIES: No edema noted, pedal pulses palpable. SKIN: Left axilla noted to have an induration that is firm and hot. A small pustule is noted in the middle of the axilla currently drainage is seen. light yellowish foul smelling extending into the upper left scapular region CENTRAL NERVOUS SYSTEM: No focal deficits, tone is normal in all 4 extremities. Assessment and Plan Plan: Assessment - Acute Hypoxic respiratory failure - resolved . was placed on BiPAP. on NC now. - Acute ALLERGIC reaction could be from an insect bite exact cause unknown responded well - Left axillary cellulitis -Acute exacerbation of intermittent asthma causing acute hypoxic respiratory failure -Coronary artery disease with non-obstructive 50% LAD lesion -GERD -Essential hypertension -Hyperlipidemia -Metabolic acidosis -Hyponatremia - hypovolemic hyponatremia -Schizoaffective disorder, chronic -Anxiety disorder and otherwise specified -Peripheral neuropathy cause unknown -Acute metabolic encephalopathy multifactorial -Acute renal failure, nonoliguric probably ATN DUE TO HYPOTENSION CODE STATUS full code PLAN attempted to see the pt twice in the OR discussed the case with the RN and Dr Alvarez Objective - Vital Signs Vital signs: Vital Signs Temp 99.1 F 12/16/16 15:00 Pulse 64 12/16/16 16:00 Resp 18 12/16/16 16:00 BP 128/66 12/16/16 15:00 Pulse Ox 94 L 12/16/16 15:00 Intake & Output 12/15/16 12/16/16 12/16/16 18:59 06:59 18:59 Intake Total 100 1180 800 Output Total 1500 1600 2275 Balance -1400 420 -1475 Weight 122.9 kg 122.9 kg Intake: IV 100 800 Sodium Chloride 0.45% 1, 800 000 ml @ 100 mls/hr IV . Q10H AMADA Rx#:[id number] ceFAZolin 2 gm In Sodium 100 Chloride 0.9% 100 ml @ 100 mls/hr IVPB Q8HR AMADA Rx#:[id number] Oral 1180 Output: Urine 1500 1600 2275 Straight 675 Other: Voiding Method Indwelling Catheter Indwelling Catheter Indwelling Catheter # Voids 0 # Bowel Movements 1 1 - Labs CBC & Chem 7: 12/15/16 08:07 12/16/16 08:21 Labs: Abnormal Lab Results - Last 24 Hours (Table) 12/15/16 12/15/16 12/16/16 Range/Units 17:20 20:48 07:22 Sodium (137-145) mmol/L Carbon Dioxide (22-30) mmol/L BUN (7-17) mg/dL POC Glucose (mg/dL) 122 H 153 H 115 H (75-99) mg/dL Calcium (8.4-10.2) mg/dL 12/16/16 12/16/16 Range/Units 08:21 11:05 Sodium 132 L (137-145) mmol/L Carbon Dioxide 31 H (22-30) mmol/L BUN 21 H (7-17) mg/dL POC Glucose (mg/dL) 109 H (75-99) mg/dL Calcium 7.6 L (8.4-10.2) mg/dL
[2016-12-16] MEDS: CYANOCOBALAMIN 500 MCG TAB PO SCH (17:33)
[2016-12-16] MEDS: CHOLECALCIFEROL 1,000 UNIT TAB PO SCH (17:33)
[2016-12-16] MEDS: VIT A,C & E-LUTEIN-MINERALS 1 EACH TAB PO SCH (17:34)
[2016-12-16] MEDS: ASPIRIN 81 MG CHEW PO SCH (17:34)
[2016-12-16 18:02] LABS: Glucose,Whole Blood 74 mg/dL (75-99)
[2016-12-16 20:24] LABS: Glucose,Whole Blood 70 mg/dL (75-99)
[2016-12-16] MEDS ORDERED: IV FLUID CONTINUATION 1,000 ML IV ONE (20:59)
--- NOTE | 2016-12-16 21:02 | P.PN ---
Subjective Principal diagnosis: Generalized weakness 61-year-old female is underlying history of schizophrenia and is cared for in a assisted environment has been ill for approximately 3 days. It is noted by the current available evidence. She does have a caregiver that help with the information admission. She is having difficulties with her left axillary area with some drainage. Then it was noted that she suffered what was thought to be a bee sting on to the left arm area. Developed extensive rash and hives and some shortness of breath. She was treated with Benadryl as well as epinephrine and Solu-Medrol. She is brought to the intensive care unit. She 'was hypotensive and was having difficulty with her speech. Speech however is at its baseline abnormal. She recovered from the hives. Continues to have cellulitis of the left axillary area The patient does respond to simple questions. Seems to be more comfortable today. Denied new symptoms. Doing Less confused able to answer that she is in the hospital. She's in the [facility]. improved mental status. Computed tomography scan has been performed revealing evidence of some phlegmon the left axillary area Case is discussed with the hospitalist. Requesting that the surgeon consider incision and drainage of the area that appears to be fluctuant Objective - Vital Signs Vital signs: Vital Signs Temp 99.1 F 12/16/16 15:00 Pulse 64 12/16/16 16:00 Resp 18 12/16/16 16:00 BP 128/66 12/16/16 15:00 Pulse Ox 94 L 12/16/16 15:00 Intake & Output 12/16/16 12/16/16 12/17/16 06:59 18:59 06:59 Intake Total 1180 800 Output Total 1600 2750 Balance -420 -1950 Weight 122.9 kg Intake: IV 800 Sodium Chloride 0.45% 1, 800 000 ml @ 100 mls/hr IV . Q10H AMADA Rx#:[id number] Oral 1180 Output: Urine 1600 2750 Straight 1150 Other: Voiding Method Indwelling Catheter Indwelling Catheter # Voids 0 # Bowel Movements 1 1 - Exam 61-year-old woman who appears older than her stated age. Occasionally open eyes to the exam. Occasional responses are noted. HEENT: Anicteric conjunctiva are pink and moist nasal mucosa grossly intact without significant lesions, there is no thrush. Oral mucosa is dry Neck: The neck is supple without significant lymphadenopathy or thyromegaly. Lungs: Good bilateral air entry without significant crackles or wheezing. There is no significant bronchial sounds. There is no egophony or dullness. Heart: Regular rate and rhythm with an audible S1-S2, no S3 no S4. There is no significant murmur click or rub, PMI was nondisplaced. Abdomen: Positive bowel sounds soft and nontender without palpable masses or organomegaly. There was no guarding or rebound. Extremities: The upper extremities have excellent pulses they are symmetric, no significant petechiae or telangiectasia. No splinter hemorrhages were noted. The left axillary area is evidence of the improved erythema, the pustule is improved. Earlier there was significant drainage and there is the fluctuant area more posterior to the chest wall The lower extremities are free from significant lesions the peripheral pulses were 2+ and symmetric. Neuro: Arousable mproved mental status answering simple - Labs CBC & Chem 7: 12/15/16 08:07 12/16/16 08:21 Labs: Abnormal Lab Results - Last 24 Hours (Table) 12/16/16 12/16/16 12/16/16 Range/Units 07:22 08:21 11:05 Sodium 132 L (137-145) mmol/L Carbon Dioxide 31 H (22-30) mmol/L BUN 21 H (7-17) mg/dL POC Glucose (mg/dL) 115 H 109 H (75-99) mg/dL Calcium 7.6 L (8.4-10.2) mg/dL 12/16/16 12/16/16 Range/Units 17:37 20:21 Sodium (137-145) mmol/L Carbon Dioxide (22-30) mmol/L BUN (7-17) mg/dL POC Glucose (mg/dL) 74 L 70 L (75-99) mg/dL Calcium (8.4-10.2) mg/dL Laboratory Results WBC 7.9 k/uL (3.8-10.6) 12/15/16 08:07 RBC 3.52 m/uL (3.80-5.40) L 12/15/16 08:07 Hgb 11.5 gm/dL (11.4-16.0) 12/15/16 08:07 Hct 35.5 % (34.0-46.0) 12/15/16 08:07 MCV 100.9 fL (80.0-100.0) H 12/15/16 08:07 MCH 32.8 pg (25.0-35.0) 12/15/16 08:07 MCHC 32.5 g/dL (31.0-37.0) 12/15/16 08:07 RDW 13.7 % (11.5-15.5) 12/15/16 08:07 Plt Count 337 k/uL (150-450) 12/15/16 08:07 Neutrophils % 88 % 12/15/16 08:07 Neutrophils % (Manual) 78.0 % 12/07/16 06:43 Band Neutrophils % 16.5 % 12/07/16 06:43 Lymphocytes % 7 % 12/15/16 08:07 Lymphocytes % (Manual) 4.0 % 12/07/16 06:43 Monocytes % 3 % 12/15/16 08:07 Monocytes % (Manual) 1.0 % 12/07/16 06:43 Eosinophils % 0 % 12/15/16 08:07 Eosinophils % (Manual) 0.5 % 12/06/16 04:25 Basophils % 0 % 12/15/16 08:07 Metamyelocytes % 1.0 % 12/06/16 04:25 Myelocytes % 0.5 % 12/07/16 06:43 Neutrophils # 6.9 k/uL (1.3-7.7) 12/15/16 08:07 Neutrophils # (Manual) 10.3 k/uL (1.3-7.7) H 12/07/16 06:43 Lymphocytes # 0.6 k/uL (1.0-4.8) L 12/15/16 08:07 Lymphocytes # (Manual) 0.4 k/uL (1.0-4.8) L 12/07/16 06:43 Monocytes # 0.3 k/uL (0-1.0) 12/15/16 08:07 Monocytes # (Manual) 0.1 k/uL (0-1.0) 12/07/16 06:43 Eosinophils # 0.0 k/uL (0-0.7) 12/15/16 08:07 Eosinophils # (Manual) 0.0 k/uL (0-0.7) 12/06/16 04:25 Basophils # 0.0 k/uL (0-0.2) 12/15/16 08:07 Nucleated RBCs 0 /100 WBC (0-0) 12/07/16 06:43 Manual Slide Review Performed 12/08/16 05:52 Toxic Vacuolation Present 12/06/16 04:25 Polychromasia Present 12/06/16 04:25 Hypochromasia Slight 12/12/16 07:00 Poikilocytosis (manual Present 12/08/16 05:52 Anisocytosis (manual) Present 12/06/16 04:25 Macrocytosis Slight 12/15/16 08:07 Crenated Cell Present 12/06/16 04:25 ESR 110 mm/hr (0-20) H 12/06/16 14:55 PT 10.6 sec (9.0-12.0) 12/04/16 19:36 INR 1.0 (<1.2) 12/04/16 19:36 APTT 34.1 sec (22.0-30.0) H 12/08/16 05:52 D-Dimer 5.28 mg/L FEU (<0.60) H 12/04/16 19:36 Sample Site [facility] 12/10/16 11:45 ABG pH 7.49 (7.35-7.45) H 12/10/16 11:45 ABG pCO2 29 mmHg (35-45) L 12/10/16 11:45 ABG pO2 83 mmHg (83-108) 12/10/16 11:45 ABG HCO3 22 mmol/L (21-25) 12/10/16 11:45 ABG Total CO2 22 mmol/L (19-24) 12/10/16 11:45 ABG O2 Saturation 97.0 % (94-97) 12/10/16 11:45 ABG Base Excess -1.5 mmol/L 12/10/16 11:45 ABG Hematocrit 34 % (34.0-46.0) 12/05/16 11:45 FiO2 32 % 12/10/16 11:45 Sodium 132 mmol/L (137-145) L 12/16/16 08:21 Potassium 5.1 mmol/L (3.5-5.1) 12/16/16 08:21 Chloride 99 mmol/L (98-107) 12/16/16 08:21 Carbon Dioxide 31 mmol/L (22-30) H 12/16/16 08:21 Anion Gap 2 mmol/L 12/16/16 08:21 BUN 21 mg/dL (7-17) H 12/16/16 08:21 Creatinine 0.59 mg/dL (0.52-1.04) 12/16/16 08:21 Est GFR (MDRD) Af Amer >60 (>60 ml/min/1.73 sqM) 12/16/16 08:21 Est GFR (MDRD) Non-Af >60 (>60 ml/min/1.73 sqM) 12/16/16 08:21 Glucose 92 mg/dL (74-99) 12/16/16 08:21 POC Glucose (mg/dL) 70 mg/dL (75-99) L 12/16/16 20:21 POC Glu [employer] DALIA Areli Brian 12/16/16 20:[address] Glu mg/dL 128 mg/dL 12/05/16 04:12 Hemoglobin A1c 6.1 % (4.2-6.1) 12/05/16 04:12 Lactic Ac Sepsis Rflx Y 12/04/16 20:23 Plasma Lactic Acid Britton 2.0 mmol/L (0.7-2.0) 12/05/16 00:02 Calcium 7.6 mg/dL (8.4-10.2) L 12/16/16 08:21 Phosphorus 3.0 mg/dL (2.5-4.5) 12/07/16 06:43 Magnesium 2.3 mg/dL (1.6-2.3) 12/08/16 05:52 Total Bilirubin 0.5 mg/dL (0.2-1.3) 12/15/16 08:07 AST 25 U/L (14-36) 12/15/16 08:07 ALT 23 U/L (9-52) 12/15/16 08:07 Alkaline Phosphatase 69 U/L (38-126) 12/15/16 08:07 Total Creatine Kinase 504 U/L (30-135) H 12/05/16 07:24 CK-MB (CK-2) 7.8 ng/mL (0.0-2.4) H* 12/05/16 07:24 CK-MB (CK-2) Rel Index 1.5 12/05/16 07:24 Troponin I <0.012 ng/mL (0.000-0.034) 12/05/16 07:24 C-Reactive Protein 401.6 mg/L (<10.0) H 12/06/16 14:55 NT-Pro-B Natriuret Pep 8270 pg/mL 12/04/16 19:36 Total Protein 4.8 g/dL (6.3-8.2) L 12/15/16 08:07 Albumin 2.2 g/dL (3.5-5.0) L 12/15/16 08:07 Vitamin B12 >1000 pg/mL (239-931) H 12/06/16 14:55 Vit D 1,25-Dihydroxy 88 pg/mL (20 - 79) H 12/06/16 14:55 Alpha-Tocopherol 1512 ug/dL (500-1800) 12/06/16 14:55 Vitamin K 73 pg/mL (80-1160) L 12/06/16 14:55 Urine Color Dark Brown 12/04/16 20:18 Urine Appearance Cloudy (Clear) H 12/04/16 20:18 Urine pH 5.0 (5.0-8.0) 12/04/16 20:18 Ur Specific [place] 1.018 (1.001-1.035) 12/04/16 20:18 Urine Protein 1+ (Negative) H 12/04/16 20:18 Urine Glucose (UA) Negative (Negative) 12/04/16 20:18 Urine Ketones Negative (Negative) 12/04/16 20:18 Urine Blood Negative (Negative) 12/04/16 20:18 Urine Nitrite Negative (Negative) 12/04/16 20:18 Urine Bilirubin 1+ (Negative) H 12/04/16 20:18 Urine Urobilinogen 4.0 mg/dL (<2.0) 12/04/16 20:18 Ur Leukocyte Esterase Negative (Negative) 12/04/16 20:18 Urine RBC 1 /hpf (0-5) 12/04/16 20:18 Urine WBC 3 /hpf (0-5) 12/04/16 20:18 Urine Bacteria Rare /hpf (None) H 12/04/16 20:18 Hyaline Casts 4 /lpf (0-2) H 12/04/16 20:18 Urine Yeast (Budding) Few /hpf (None) H 12/04/16 20:18 Random Vancomycin 6.2 ug/mL 12/07/16 06:43 Urine Opiates Screen Not Detected (NotDetected) 12/04/16 20:18 Ur Oxycodone Screen Not Detected (NotDetected) 12/04/16 20:18 Urine Methadone Screen Not Detected (NotDetected) 12/04/16 20:18 Ur Propoxyphene Screen Not Detected (NotDetected) 12/04/16 20:18 Ur Barbiturates Screen Not Detected (NotDetected) 12/04/16 20:18 U Tricyclic Antidepress Detected (NotDetected) H 12/04/16 20:18 Ur Phencyclidine Scrn Not Detected (NotDetected) 12/04/16 20:18 Ur Amphetamines Screen Not Detected (NotDetected) 12/04/16 20:18 U Methamphetamines Scrn Not Detected (NotDetected) 12/04/16 20:18 U Benzodiazepines Scrn Detected (NotDetected) H 12/04/16 20:18 Urine Cocaine Screen Not Detected (NotDetected) 12/04/16 20:18 U Marijuana (THC) Screen Not Detected (NotDetected) 12/04/16 20:18 JANAK Antibody <5 IU/mL (<5) 12/06/16 14:55 Microbiology 12/04/16 19:36 Blood Blood Culture - Final No Growth after 144 hours 12/04/16 21:30 Axilla - Left Gram Stain - Final 12/04/16 21:30 Axilla - Left Wound Culture - Final Staphylococcus aureus 12/04/16 20:18 Urine,Catheterized Urine Culture - Final Assessment and Plan (1) Anaphylactic reaction Status: Acute (2) Abscess of axilla, left Narrative/Plan: 61-year-old female presents from her fdc with some increasing weakness. Admission without evidence of sepsis apparently in the base of the significant cellulitis and abscess to her left axillary area. She hasn't had the significant hives and swelling responded well to intervention with Benadryl , epinephrine and steroids. She apparently is improved from her admission. The extensive acidosis was noted and is being corrected. Antibiotic therapy was initiated with vancomycin and ampicillin sulbactam. Given her acute renal failure we'll avoid further doses of vancomycin in utilize Ceftaroline was to give coverage for MRSA as well as staph and strep which we, pathogens of the axillary area. Continue ongoing supportive care. Dry dressing for the drainage. Cultures in process. The patient is now improved. Cultures have come back as MSSA. Ceftaroline was transitioned to Ancef 2 g IVPB back every 8 hours given her marked improved renal failure. Continue for now. Her acidosis has resolved. Overall she is improving. With the improved renal function CT angiogram has been performed without evidence of a pulmonary embolus. The axillary area started to have more drainage. The area became more fluctuant. Surgeon has been contacted and will plan for incision and drainage of the site today. Over this will allow some further resolution. The findings at surgery will help develop the plans for antibiotics at discharge. Status: Acute
[2016-12-16] MEDS ORDERED: BUPIVACAIN-EPI 0.25%-1:200,000 30 ML VIAL SQ ONE (21:05)
[2016-12-16] MEDS ORDERED: LACTATED RINGERS 1,000 ML IV ONE (21:06)
[2016-12-16] MEDS ORDERED: PROPOFOL 10 MG/ML 20 ML VIAL IV ONE (21:06)
[2016-12-16] MEDS ORDERED: fentaNYL (PF) 50 MCG/ML 2 ML AMP ONE (21:06)
[2016-12-16] MEDS ORDERED: MIDAZOLAM 2 MG/2 ML VIAL ONE (21:06)
[2016-12-16] MEDS ORDERED: SUCCINYLCHOLINE CHLORIDE 100 MG/5 ML SYR IV ONE (21:06)
[2016-12-16] MEDS ORDERED: LIDOCAINE 1% INJ 10MG/ML (20 ML MDV) ONE (21:06)
--- NOTE | 2016-12-16 21:33 | P.OP ---
Date of Procedure: 12/16/16 Preoperative Diagnosis: Left axillary abscess Postoperative Diagnosis: Left axillary abscess Procedure(s) Performed: Incision and drainage of left axillary abscess Implants: Anesthesia: ANDRIY Surgeon: Darian Alvarez Estimated Blood Loss (ml): 25 Pathology: other (Culture) Condition: stable Disposition: PACU Indications for Procedure: Operative Findings: Description of Procedure: The patient's placed on the operative table in the supine position she received general anesthesia. Her left axilla was prepped and draped usual sterile fashion. A skin incision was made over the sella and a possible pocket was entered. This area was cultured. The incision was extended inferiorly. There was a large abscess cavity entered. cavity was irrigated. It was then packed with 3 inch Kerlix and 2 inch Kerlix. Patient tolerated the procedure well and was sent to recovery in stable condition.
[2016-12-16] MEDS ORDERED: ALBUTEROL NEBULIZED 2.5 MG/3 ML INHALATION ONE (21:42)
[2016-12-16 22:12] LABS: Glucose,Whole Blood 83 mg/dL (75-99)
[2016-12-16] MEDS: ATORVASTATIN 10 MG TAB PO SCH (23:17)
[2016-12-16] MEDS: HYDROmorphone 1 MG/ML 1 ML SYRINGE IVP PRN (23:23)
[2016-12-17] MEDS: BUDESONIDE 0.5 MG/2 ML NEBU INHALATION SCH ×2 (07:26→19:40)
[2016-12-17 07:39] LABS: Glucose,Whole Blood 117 mg/dL (75-99)
[2016-12-17] MEDS: ceFAZolin 2 GM in SODIUM CHLORIDE 0.9% 100 ML IVPB SCH ×2 (08:19→16:57)
[2016-12-17] MEDS: INSULIN LISPRO (humaLOG) 300 UNIT/3 ML VIAL SQ SCH ×4 (08:23→21:37)
[2016-12-17] MEDS: HEPARIN SODIUM,PORCINE 5,000 UNIT/ML 1 ML VIAL SQ SCH ×2 (08:24→16:57)
[2016-12-17] MEDS: FAMOTIDINE 20 MG TAB PO SCH ×2 (08:25→21:19)
[2016-12-17] MEDS: SENNOSIDES 8.6 MG TAB PO SCH ×2 (08:25→21:18)
[2016-12-17] MEDS: NYSTATIN 100,000 UNIT/ML SUSP 500,000 UNIT/5 ML CUP PO SCH ×4 (08:25→21:18)
[2016-12-17] MEDS: METOPROLOL TARTRATE 25 MG TAB PO SCH ×3 (08:25→21:19)
[2016-12-17] MEDS: methylPREDNISolone SOD SUCCI 40 MG/ML 1 ML VIAL IV SCH ×2 (08:26→21:19)
[2016-12-17] MEDS: CITALOPRAM HYDROBROMIDE 20 MG TAB PO SCH (08:28)
[2016-12-17] MEDS: GABAPENTIN 300 MG CAP PO SCH ×2 (08:28→21:19)
[2016-12-17] MEDS: LORATADINE 10 MG TAB PO SCH (08:28)
[2016-12-17] MEDS: ASPIRIN 81 MG CHEW PO SCH (08:29)
[2016-12-17 08:47] LABS: Anion Gap 2 mmol/L; Blood Urea Nitrogen 21 mg/dL (7-17); Calcium 7.9 mg/dL (8.4-10.2); Carbon Dioxide 31 mmol/L (22-30); Chloride 101 mmol/L (98-107); Glucose 105 mg/dL (74-99); Non-African American GFR(MDRD) >60 (>60 ml/min/1.73 sqM); Potassium 4.8 mmol/L (3.5-5.1); Sodium 134 mmol/L (137-145)
--- NOTE | 2016-12-17 09:33 | P.PN ---
Subjective Patient is seen in follow-up for acute kidney injury. Her baseline creatinine is 1 and was elevated at 3.4 on admission. Acute kidney injury is now resolved. She is nonoliguric. Patient presented with left axillary cellulitis and a questionable insect sting. She was also hypotensive on admission and did receive IV fluids. She was then changed to half-normal saline due to hypernatremia. She is currently off all IV fluids. Sodium level today is 134. Hemodynamically she is stable. She did undergo a CT of the upper extremity with contrast on December 13 which revealed moderate sized inflammation in the left axilla. She underwent incision and drainage of abscess on December 16. No active complaints at this time. Vital signs are stable. General: The patient appeared well nourished and normally developed. HEENT: Head exam is unremarkable. Neck is without jugular venous distension. LUNGS: Scattered rhonchi. Breath sounds decreased. HEART: Rate and Rhythm are regular. First and second heart sounds normal. No murmurs, rubs or gallops. ABDOMEN: Abdominal exam reveals normal bowel sounds. Non-tender and non- distended. No evidence of peritonitis. EXTREMITITES: No clubbing, cyanosis, or edema. Objective - Vital Signs Vital signs: Vital Signs Temp 98.2 F 12/17/16 07:00 Pulse 57 L 12/17/16 07:00 Resp 18 12/17/16 07:00 BP 119/58 12/17/16 07:00 Pulse Ox 99 12/17/16 07:00 Intake & Output 12/16/16 12/17/16 12/17/16 18:59 06:59 18:59 Intake Total 800 620 Output Total 2750 605 Balance -1949 15 Weight 122.9 kg Intake: IV 800 400 Sodium Chloride 0.45% 1, 800 000 ml @ 100 mls/hr IV . Q10H AMADA Rx#:[id number] ceFAZolin 2 gm In Sodium 100 Chloride 0.9% 100 ml @ 100 mls/hr IVPB Q8HR AMADA Rx#:[id number] Oral 220 Output: Urine 2750 600 Straight 1150 600 Estimated Blood Loss 5 Other: Voiding Method Indwelling Catheter Indwelling Catheter # Voids 0 # Bowel Movements 1 - Labs CBC & Chem 7: 12/15/16 08:07 12/17/16 07:27 Labs: Abnormal Lab Results - Last 24 Hours (Table) 12/16/16 12/16/16 12/16/16 Range/Units 08:21 11:05 17:37 Sodium 132 L (137-145) mmol/L Carbon Dioxide 31 H (22-30) mmol/L BUN 21 H (7-17) mg/dL Glucose (74-99) mg/dL POC Glucose (mg/dL) 109 H 74 L (75-99) mg/dL Calcium 7.6 L (8.4-10.2) mg/dL 12/16/16 12/17/16 12/17/16 Range/Units 20:21 07:05 07:27 Sodium 134 L (137-145) mmol/L Carbon Dioxide 31 H (22-30) mmol/L BUN 21 H (7-17) mg/dL Glucose 105 H (74-99) mg/dL POC Glucose (mg/dL) 70 L 117 H (75-99) mg/dL Calcium 7.9 L (8.4-10.2) mg/dL Assessment and Plan Plan: Assessment: #1. Nonoliguric acute kidney injury mostly prerenal secondary to hypotension. Resolved. Creatinine was 3.4 on admission and is down to 0.6 today. Monitor for contrast-induced nephropathy as she did receive IV dye on December 13. #2. Hypotension possibly related to anaphylactic reaction. Resolved. #3. Metabolic acidosis secondary to acute kidney injury. Resolved. #4. Hypernatremia secondary to lack of oral water intake. Resolved. Now hyponatremic. Improving. #5. Hypokalemia from renal potassium wasting with recovering renal function. Magnesium replete. Resolved. #6. Left axillary cellulitis with questionable insect sting status post incision and drainage on December 16. Plan: Remains off all IV fluids. Avoid nephrotoxic agents and hypotensive episodes. Encourage oral intake as tolerated. 1.2 L fluid restriction. Repeat electrolytes in the morning. Antibiotics per infectious disease recommendations.
[2016-12-17 11:24] LABS: Glucose,Whole Blood 158 mg/dL (75-99)
[2016-12-17] MEDS: CHOLECALCIFEROL 1,000 UNIT TAB PO SCH (12:31)
[2016-12-17] MEDS: VIT A,C & E-LUTEIN-MINERALS 1 EACH TAB PO SCH (12:31)
[2016-12-17] MEDS: HYDROmorphone 1 MG/ML 1 ML SYRINGE IVP PRN ×2 (13:10→21:38)
--- NOTE | 2016-12-17 15:26 | P.PN ---
Subjective Ms. Corey is a 61-year-old patient of visiting physicians Dr. Muro. Patient is resident of a skilled nursing called [facility]. Patient's chronic stable medical conditions include coronary artery disease with a 50% LAD lesion, GERD, hypertension, hyperlipidemia, schizoaffective disorder, anxiety, peripheral neuropathy and macular degeneration. Patient apparently for 3 days had noticed swelling and redness of the left arm not sure if something can better and presented to ER. Patient was found to be hypotensive with extensive rash and patient is given IV Solu-Medrol IV Benadryl and Pepcid and admitted to the medical floor. Patient became hypotensive and hypoxic was transferred to the intensive care unit with a consultation to critical care and infectious disease. Patient got a definite induration and redness in the left axillary area. Patient does confirm that she does use a razor in the left armpit. Patient was acidotic and was put on a bicarbonate drip patient also found to be in acute renal failure. Patient's condition improved with IV antibiotics. On 12/10/16 - Pt was found to be Hypoxic , so ABG obtained and she was then placed on BiPAP . She is currently on Bipap not in respiratory distress. On 12/11/16 Pt.s respiratory status much improved. saturating well on NC. was able to answer. no fever/chils. no overnight issues. Review of systems - She states that she is feeling very weak and tired. She denies having any chest pain or cough. No complaints of any abdominal pain nausea vomiting or diarrhea. She has difficulty in breathing . 12/12/16 states that she feels more cloudy today no fevers, chills, nausea, vomiting, diarrhea reported discharge from her axilla is reported 06/26/2016 Patient states to be slightly improved however continues to have discharge from her axillary region No fevers chills nausea vomiting or diarrhea reported 12/14/16 slightly improved continues to have drainage from her left axilla 12/15/16 increased drainage is reported from the left axilla NO fevers 12/17/2016 Patient is status post I&D a large abscess cavity was noted Dressing changes were done today. Patient states that she is feeling significantly better Denies having any fevers chills nausea vomiting or diarrhea - Exam GENERAL EXAM: Less somnolent today, comfortable in no apparent distress. HEAD: Normocephalic. EYES: Normal reaction of pupils, equal size. Dry eyes NECK: No masses, no JVD. LUNGS: Equal air entry . Diminished BS in all lung doyle. Coarse breath sounds at the lower bases. CVS: S1 and S2 normal with no audible mumurs, regular rhythm. ABDOMEN: No hepatosplenomegaly, normal bowel sounds, no guarding or rigidity. EXTREMITIES: No edema noted, pedal pulses palpable. SKIN: Dressing noted in the left axillary region No significant tenderness CENTRAL NERVOUS SYSTEM: No focal deficits, tone is normal in all 4 extremities. Assessment and Plan Plan: Assessment - Acute Hypoxic respiratory failure - resolved . was placed on BiPAP. on NC now. - Acute ALLERGIC reaction could be from an insect bite exact cause unknown responded well - Left axillary cellulitis -Acute exacerbation of intermittent asthma causing acute hypoxic respiratory failure -Coronary artery disease with non-obstructive 50% LAD lesion -GERD -Essential hypertension -Hyperlipidemia -Metabolic acidosis -Hyponatremia - hypovolemic hyponatremia -Schizoaffective disorder, chronic -Anxiety disorder and otherwise specified -Peripheral neuropathy cause unknown -Acute metabolic encephalopathy multifactorial -Acute renal failure, nonoliguric probably ATN DUE TO HYPOTENSION CODE STATUS full code Continue IV antibiotic A wound VAC on discharge was artery discussed with Dr. Elmore Patient will be discharged to a [facility] in the next 24 hours Objective - Vital Signs Vital signs: Vital Signs Temp 98.2 F 12/17/16 07:00 Pulse 57 L 12/17/16 08:00 Resp 18 12/17/16 08:00 BP 119/58 12/17/16 07:00 Pulse Ox 99 12/17/16 07:00 Intake & Output 12/16/16 12/17/16 12/17/16 18:59 06:59 18:59 Intake Total 800 620 Output Total 2750 605 Balance -1950 15 Weight 122.9 kg 122.9 kg Intake: IV 800 400 Sodium Chloride 0.45% 1, 800 000 ml @ 100 mls/hr IV . Q10H [facility]ADA Rx#:[id number] ceFAZolin 2 gm In Sodium 100 Chloride 0.9% 100 ml @ 100 mls/hr IVPB Q8HR [facility]ADA Rx#:[id number] Oral 220 Output: Urine 2750 600 Straight 1150 600 Estimated Blood Loss 5 Other: Voiding Method Indwelling Catheter Indwelling Catheter Indwelling Catheter # Voids 0 # Bowel Movements 1 - Labs CBC & Chem 7: 12/15/16 08:07 12/17/16 07:27 Labs: Abnormal Lab Results - Last 24 Hours (Table) 12/16/16 12/16/16 12/17/16 Range/Units 17:37 20:21 07:05 Sodium (137-145) mmol/L Carbon Dioxide (22-30) mmol/L BUN (7-17) mg/dL Glucose (74-99) mg/dL POC Glucose (mg/dL) 74 L 70 L 117 H (75-99) mg/dL Calcium (8.4-10.2) mg/dL 12/17/16 12/17/16 Range/Units 07:27 11:17 Sodium 134 L (137-145) mmol/L Carbon Dioxide 31 H (22-30) mmol/L BUN 21 H (7-17) mg/dL Glucose 105 H (74-99) mg/dL POC Glucose (mg/dL) 158 H (75-99) mg/dL Calcium 7.9 L (8.4-10.2) mg/dL Microbiology - Last 24 Hours (Table) 12/16/16 21:23 Anaerobic Culture - Preliminary Axilla - Left 12/16/16 21:23 Wound Culture - Preliminary Axilla - Left
--- NOTE | 2016-12-17 16:30 | P.PN ---
Subjective 12/06/16- This is a 61-year-old female who came into emergency department with shortness of breath and generalized weakness that had been developing over the last 3-4 days. Apparently the patient was stung by a bee in her left axilla, the area became extremely itchy with a diffuse reddened rash. The patient states she also shaved her left axilla in the cellulitis developed. The patient became unresponsive and received an EpiPen injection as well as Benadryl with EMS. This patient lives at a halfway. In the emergency room the patient was noted to have a d-dimer of 5.28 so she was also started on heparin drip, which is currently therapeutic. She was also noted to the septic with a lactic acid of 2.5. Urine drug screen was completed and was positive for tricyclic antidepressants and benzodiazepines. She she was admitted to the medical floor and was also given a dose of Ativan. The patient became somnolent with oxygen saturations 49%. Subsequently she was transferred to the ICU. The patient has since been on BiPAP and her oxygen saturations have improved. However throughout the night the patient was hypotensive but maintained her urine output therefore she was given IV boluses which was effective in bringing up her blood pressure. Patient is also on Solu-Medrol, antibiotics and IV Benadryl. Patient is also noted to be acidotic tenderness on IV fluids of D5W with 3 A of bicarb at 50ml/hr. Wound culture of the left axilla has been taken and is presumptive staph aureus. Upon examination the patient's resting in bed on BiPAP she continues to be somewhat somnolent however responds to voice commands slowly. BiPAP settings IPAP of 12 EPAP of 5 FiO2 35% oxygen saturations 98%. Patient also has a history of being mentally challenged and slurs her speech as a baseline due to a deficit of a previous CVA /TIA. 12/08/15- upon examination today the patient's resting up in bed on 3 L of supplemental oxygen. Patient is alert and oriented 1. Patient is less lethargic today than yesterday. Liver the patient still becomes short of breath with exertion or extensive conversation. States labs were reviewed and her white count is now to 10.9, sodium 140 potassium 3.3 chloride 111 carbon dioxide 22 BUN 45 creatinine 1.3. Patient should have a VQ scan once okayed by nephrology. 12/09/15- on examination today the patient is resting up in bed on 2 L of supplemental oxygen. The patient continues to be very sleepy and currently we are investigating her home medication and dosage of Seroquel that she receives at the halfway she attends. Excessive sleepiness could be due to this medication and we will hold at this time. Neuro is also on consults. Patient did have her CT a of the chest yesterday which showed no evidence of pulmonary embolism, interstitial pulmonary infiltrates with some atelectasis at the lung bases and small pleural effusions were noted. It is suggested on the impression this could be due to congestive heart failure. Cardiology is also on consult. Patient's heparin drip could be stopped due to no pulmonary embolism. Patient continues to be short of breath with exertion. hemodynamically she is much better. 12/09/16- the patient was downgraded yesterday from the ICU. Today she is seen on the selective care unit resting up in bed on 2-3 L of supplemental oxygen. She continues to be sleepy however less sleepy than yesterday. She does state she has intermittent shortness of breath with exertion. She denies any cough or congestion. Per the nursing staff the patient has been intermittently taking off her oxygen. The patient has been educated on the importance of keeping the oxygen on at this time. Her cellulitis is slowly improving. Mentation remains about the same. 12/10/16- on examination the patient is not orientated. The patient continuously mumbles and it is unclear whether she is trying to say. The patient's states this is not the patient's baseline. She is awake and can make eye contact, she listens when spoken to however she does not respond to commands. Apparently the patient did have oxygen saturations above 92% earlier this morning therefore she was switched to room air however on examination she is noted to have a decreased oxygen saturation in the 80s so supplemental oxygen is put back on the patient. The patient is known to continue to take her oxygen on and off intermittently. Education has been provided to the patient on importance of keeping her oxygen on at this time however is not clear if the patient is understanding due to her mentation. We will obtain stat ABGs as well as what neurology no about the patient's decline in mentation. 12/11/16-today and the patient is much more alert, continues with intermittent confusion. I am able to make out what he says speech is much more clear today however she still mumbles on occasion. More dynamically she is stable. Currently she is on 4 L of supplemental oxygen via nasal cannula. Oxygen saturations in the mid 90s. She does respond to commands today. She is keeping her oxygen on today as well. ABGs from yesterday were obtained and were normal. Patient is still being seen by nephrology. Labs and chest x-ray are reviewed. Chest x-ray shows left basilar infiltrate and small effusion with central interstitial pattern correlate for interstitial pneumonitis versus venous congestion. patient seen and evaluated examined today she is awake but intermittently confused as any [facility] symptoms however continued to require supplemental oxygen oxygen saturation has been stable limited data reviewed radiographic studies reviewed as well 12/13/16, patient seen and evaluated examined regularly she is doing better more awake and alert breathing comfortably cuff congestion shortness of breath has improved she remains on broad IV cefazolin ID service is following 12/14/16, patient is seen and examined today and is much more awake today. She continues to use supplemental oxygen. She continues to get short of breath with exertion. Patient does continue to complain of some oropharyngeal thrush. She is already on medications for this. CT of the left upper extremity is reviewed from yesterday which shows a limited study however there is a moderate- sized area of inflammatory phlegmon in the region of the left axilla extending along the left lateral chest wall, a drainable collection is not appreciated with absolute certainty. 12/15/16 patient is seen and examined today and appears much more comfortable though. She is currently on room air. She does have intermittent shortness of breath with exertion. Her oropharyngeal thrush has improved. Surgical will not go forth with training due to lack of CT showing an abscess that can be drained. Blood cultures were negative therefore she will not need outpatient IV therapy. Labs are reviewed. Patient's portable chest x-ray does show left lower lobe atelectasis and possible associated effusion follow-up chest x-ray 2 view is advised. 12/16/16-patient is seen and examined today on rounds. We did order a 2 view x- ray to be done this morning however it has not been completed at this time currently we are waiting for those results. Patient continues on room air, continues to have intermittent shortness of breath with exertion. According to the nurse that the patient is going to go for an I&D today with surgical services. Currently we are unaware of what time. Has been increasing drainage from the left axilla wound site. 12/17/16 upon examination today the patient's resting up in bed on room air. She states her breathing has improved. Patient did undergo an I&D with surgical services yesterday and a large abscess cavity was noted. The area was drained and currently has a dressing that is clean dry and intact. Patient states she is feeling significantly better. She has less pain to the abscess area. Cellulitis continues to improve. Patient has been afebrile. There has been mention of a possible wound VAC, although unclear if this will happen or not.. Objective - Vital Signs Vital signs: Vital Signs Temp 97.7 F 12/17/16 15:00 Pulse 64 12/17/16 15:38 Resp 18 12/17/16 15:38 BP 119/67 12/17/16 15:00 Pulse Ox 93 L 12/17/16 15:00 Intake & Output 12/16/16 12/17/16 12/17/16 18:59 06:59 18:59 Intake Total 800 620 100 Output Total 2750 605 2425 Balance -1949 Weight 122.9 kg 122.9 kg Intake: IV 800 400 100 Sodium Chloride 0.45% 1, 800 000 ml @ 100 mls/hr IV . Q10H [facility]ADA Rx#:[id number] ceFAZolin 2 gm In Sodium 100 100 Chloride 0.9% 100 ml @ 100 mls/hr IVPB Q8HR [facility]ADA Rx#:[id number] Oral 220 Output: Urine 2750 600 2425 Straight 1150 600 825 Estimated Blood Loss 5 Other: Voiding Method Indwelling Catheter Indwelling Catheter Indwelling Catheter # Voids 0 0 # Bowel Movements 1 - Exam GENERAL EXAM: Awake, intermittent confusion noted slightly restless, in no apparent distress. HEAD: Normocephalic. EYES: Normal reaction of pupils, equal size. Dry eyes NOSE: Clear with pink turbinates. THROAT: No erythema or exudates. NECK: No masses, no JVD. CHEST: No chest wall deformity. LUNGS: Equal air entry with no crackles, wheeze, rhonchi or dullness. Diminished CVS: S1 and S2 normal with no audible mumurs, regular rhythm. ABDOMEN: No hepatosplenomegaly, normal bowel sounds, no guarding or rigidity. EXTREMITIES: No edema noted, pedal pulses palpable. SKIN: Left axilla noted to have an definite indurated area of erythema the area , dressing noted to left axilla I&D site Cellulitis improving CENTRAL NERVOUS SYSTEM: No focal deficits, tone is normal in all 4 extremities. - Labs CBC & Chem 7: 12/15/16 08:07 12/17/16 07:27 Labs: Abnormal Lab Results - Last 24 Hours (Table) 12/16/16 12/16/16 12/17/16 Range/Units 17:37 20:21 07:05 Sodium (137-145) mmol/L Carbon Dioxide (22-30) mmol/L BUN (7-17) mg/dL Glucose (74-99) mg/dL POC Glucose (mg/dL) 74 L 70 L 117 H (75-99) mg/dL Calcium (8.4-10.2) mg/dL 12/17/16 12/17/16 Range/Units 07:27 11:17 Sodium 134 L (137-145) mmol/L Carbon Dioxide 31 H (22-30) mmol/L BUN 21 H (7-17) mg/dL Glucose 105 H (74-99) mg/dL POC Glucose (mg/dL) 158 H (75-99) mg/dL Calcium 7.9 L (8.4-10.2) mg/dL Microbiology - Last 24 Hours (Table) 12/16/16 21:23 Gram Stain - Preliminary Axilla - Left Wound Culture - Preliminary 12/16/16 21:23 Anaerobic Culture - Preliminary Axilla - Left Assessment and Plan Plan: Assessment Anaphylaxis reaction related to bee sting Metabolic acidosis and elevated d-dimer due to severe sepsis, related to staph wound infection and acute renal failure Acute hypoxic respiratory failure, Hypotension Left abscess of the axilla Cellulitis of the left axilla Schizoaffective disorder Anxiety Hypokalemic Morbid obesity Plan Patient could be discharged from a pulmonary standpoint in the near future. Discharge planning to a assisted facility has been suggested. Medications have been reviewed and will be continued as ordered. Continue with antibiotics. Replace electrolytes and monitor per protocol. Cultures have come back as MSSA. Antibiotics had been adjusted by infectious disease. Continue with pulmonary hygiene, coughing and deep breathing exercises, and supportive care. Supplemental oxygen or BiPAP to maintain oxygen saturations of 92% or better. She will require a polysomnogram in the outpatient setting. Continue nebulizer treatments. GI and DVT prophylaxis. Continue with Neuro, ID , and nephro consults and appreciate recommendations. We will continue to monitor labs/results and adjust treatment as necessary. Further recommendations pending. I performed an examination of the patient and discussed their management with the nurse practitioner. I have reviewed the nurse practitioner's note and agree with the documented findings and plan of care.
[2016-12-17 16:58] LABS: Glucose,Whole Blood 171 mg/dL (75-99)
--- NOTE | 2016-12-17 17:54 | P.PN ---
Progress Note - Text Patient is status post incision and drainage of her left axilla abscess. The abscess cavity was quite large at the time of surgery. A 3 inch Kerlix roll was used to pack the wound. Patient states she feels better. She's had some drainage from her eczema. On exam there is less swelling in the left eczema. There is decreased cellulitis. Status post incision and drainage of large left axillary abscess cavity. The patient may benefit from wound VAC. She will be seen by Dr. Elmore.
[2016-12-17 19:54] LABS: Glucose,Whole Blood 179 mg/dL (75-99)
[2016-12-17] MEDS: ATORVASTATIN 10 MG TAB PO SCH (21:19)
[2016-12-18] MEDS: ceFAZolin 2 GM in SODIUM CHLORIDE 0.9% 100 ML IVPB SCH ×4 (01:01→23:42)
[2016-12-18] MEDS: HEPARIN SODIUM,PORCINE 5,000 UNIT/ML 1 ML VIAL SQ SCH ×4 (01:01→23:43)
[2016-12-18 07:28] LABS: Glucose,Whole Blood 124 mg/dL (75-99)
[2016-12-18] MEDS: INSULIN LISPRO (humaLOG) 300 UNIT/3 ML VIAL SQ SCH ×4 (07:38→20:57)
[2016-12-18] MEDS: methylPREDNISolone SOD SUCCI 40 MG/ML 1 ML VIAL IV SCH ×2 (07:42→20:54)
[2016-12-18] MEDS: NYSTATIN 100,000 UNIT/ML SUSP 500,000 UNIT/5 ML CUP PO SCH ×4 (07:42→20:56)
[2016-12-18] MEDS: ASPIRIN 81 MG CHEW PO SCH (07:42)
[2016-12-18] MEDS: CITALOPRAM HYDROBROMIDE 20 MG TAB PO SCH (07:43)
[2016-12-18] MEDS: SENNOSIDES 8.6 MG TAB PO SCH ×2 (07:43→20:55)
[2016-12-18] MEDS: FAMOTIDINE 20 MG TAB PO SCH ×2 (07:43→20:54)
[2016-12-18] MEDS: LORATADINE 10 MG TAB PO SCH (07:43)
[2016-12-18] MEDS: GABAPENTIN 300 MG CAP PO SCH ×2 (07:44→20:54)
[2016-12-18] MEDS: METOPROLOL TARTRATE 25 MG TAB PO SCH ×3 (07:44→23:43)
[2016-12-18] MEDS: BUDESONIDE 0.5 MG/2 ML NEBU INHALATION SCH ×2 (07:50→19:45)
[2016-12-18 08:54] LABS: Anion Gap 2 mmol/L; Blood Urea Nitrogen 25 mg/dL (7-17); Calcium 8.2 mg/dL (8.4-10.2); Carbon Dioxide 32 mmol/L (22-30); Chloride 101 mmol/L (98-107); Glucose 103 mg/dL (74-99); Non-African American GFR(MDRD) >60 (>60 ml/min/1.73 sqM); Potassium 5.2 mmol/L (3.5-5.1); Sodium 135 mmol/L (137-145)
[2016-12-18] MEDS: HYDROmorphone 1 MG/ML 1 ML SYRINGE IVP PRN (09:17)
[2016-12-18] MEDS: VIT A,C & E-LUTEIN-MINERALS 1 EACH TAB PO SCH (11:31)
[2016-12-18] MEDS: CHOLECALCIFEROL 1,000 UNIT TAB PO SCH (11:31)
[2016-12-18] MEDS: CYANOCOBALAMIN 500 MCG TAB PO SCH (11:31)
[2016-12-18 11:58] LABS: Glucose,Whole Blood 158 mg/dL (75-99)
--- NOTE | 2016-12-18 12:44 | P.PN ---
Subjective 12/06/16- This is a 61-year-old female who came into emergency department with shortness of breath and generalized weakness that had been developing over the last 3-4 days. Apparently the patient was stung by a bee in her left axilla, the area became extremely itchy with a diffuse reddened rash. The patient states she also shaved her left axilla in the cellulitis developed. The patient became unresponsive and received an EpiPen injection as well as Benadryl with EMS. This patient lives at a prison. In the emergency room the patient was noted to have a d-dimer of 5.28 so she was also started on heparin drip, which is currently therapeutic. She was also noted to the septic with a lactic acid of 2.5. Urine drug screen was completed and was positive for tricyclic antidepressants and benzodiazepines. She she was admitted to the medical floor and was also given a dose of Ativan. The patient became somnolent with oxygen saturations 49%. Subsequently she was transferred to the ICU. The patient has since been on BiPAP and her oxygen saturations have improved. However throughout the night the patient was hypotensive but maintained her urine output therefore she was given IV boluses which was effective in bringing up her blood pressure. Patient is also on Solu-Medrol, antibiotics and IV Benadryl. Patient is also noted to be acidotic tenderness on IV fluids of D5W with 3 A of bicarb at 50ml/hr. Wound culture of the left axilla has been taken and is presumptive staph aureus. Upon examination the patient's resting in bed on BiPAP she continues to be somewhat somnolent however responds to voice commands slowly. BiPAP settings IPAP of 12 EPAP of 5 FiO2 35% oxygen saturations 98%. Patient also has a history of being mentally challenged and slurs her speech as a baseline due to a deficit of a previous CVA /TIA. 12/08/15- upon examination today the patient's resting up in bed on 3 L of supplemental oxygen. Patient is alert and oriented 1. Patient is less lethargic today than yesterday. Liver the patient still becomes short of breath with exertion or extensive conversation. States labs were reviewed and her white count is now to 10.9, sodium 140 potassium 3.3 chloride 111 carbon dioxide 22 BUN 45 creatinine 1.3. Patient should have a VQ scan once okayed by nephrology. 12/09/15- on examination today the patient is resting up in bed on 2 L of supplemental oxygen. The patient continues to be very sleepy and currently we are investigating her home medication and dosage of Seroquel that she receives at the prison she attends. Excessive sleepiness could be due to this medication and we will hold at this time. Neuro is also on consults. Patient did have her CT a of the chest yesterday which showed no evidence of pulmonary embolism, interstitial pulmonary infiltrates with some atelectasis at the lung bases and small pleural effusions were noted. It is suggested on the impression this could be due to congestive heart failure. Cardiology is also on consult. Patient's heparin drip could be stopped due to no pulmonary embolism. Patient continues to be short of breath with exertion. hemodynamically she is much better. 12/09/16- the patient was downgraded yesterday from the ICU. Today she is seen on the selective care unit resting up in bed on 2-3 L of supplemental oxygen. She continues to be sleepy however less sleepy than yesterday. She does state she has intermittent shortness of breath with exertion. She denies any cough or congestion. Per the nursing staff the patient has been intermittently taking off her oxygen. The patient has been educated on the importance of keeping the oxygen on at this time. Her cellulitis is slowly improving. Mentation remains about the same. 12/10/16- on examination the patient is not orientated. The patient continuously mumbles and it is unclear whether she is trying to say. The patient's states this is not the patient's baseline. She is awake and can make eye contact, she listens when spoken to however she does not respond to commands. Apparently the patient did have oxygen saturations above 92% earlier this morning therefore she was switched to room air however on examination she is noted to have a decreased oxygen saturation in the 80s so supplemental oxygen is put back on the patient. The patient is known to continue to take her oxygen on and off intermittently. Education has been provided to the patient on importance of keeping her oxygen on at this time however is not clear if the patient is understanding due to her mentation. We will obtain stat ABGs as well as what neurology no about the patient's decline in mentation. 12/11/16-today and the patient is much more alert, continues with intermittent confusion. I am able to make out what he says speech is much more clear today however she still mumbles on occasion. More dynamically she is stable. Currently she is on 4 L of supplemental oxygen via nasal cannula. Oxygen saturations in the mid 90s. She does respond to commands today. She is keeping her oxygen on today as well. ABGs from yesterday were obtained and were normal. Patient is still being seen by nephrology. Labs and chest x-ray are reviewed. Chest x-ray shows left basilar infiltrate and small effusion with central interstitial pattern correlate for interstitial pneumonitis versus venous congestion. patient seen and evaluated examined today she is awake but intermittently confused as any [facility] symptoms however continued to require supplemental oxygen oxygen saturation has been stable limited data reviewed radiographic studies reviewed as well 12/13/16, patient seen and evaluated examined regularly she is doing better more awake and alert breathing comfortably cuff congestion shortness of breath has improved she remains on broad IV cefazolin ID service is following 12/14/16, patient is seen and examined today and is much more awake today. She continues to use supplemental oxygen. She continues to get short of breath with exertion. Patient does continue to complain of some oropharyngeal thrush. She is already on medications for this. CT of the left upper extremity is reviewed from yesterday which shows a limited study however there is a moderate- sized area of inflammatory phlegmon in the region of the left axilla extending along the left lateral chest wall, a drainable collection is not appreciated with absolute certainty. 12/15/16 patient is seen and examined today and appears much more comfortable though. She is currently on room air. She does have intermittent shortness of breath with exertion. Her oropharyngeal thrush has improved. Surgical will not go forth with training due to lack of CT showing an abscess that can be drained. Blood cultures were negative therefore she will not need outpatient IV therapy. Labs are reviewed. Patient's portable chest x-ray does show left lower lobe atelectasis and possible associated effusion follow-up chest x-ray 2 view is advised. 12/16/16-patient is seen and examined today on rounds. We did order a 2 view x- ray to be done this morning however it has not been completed at this time currently we are waiting for those results. Patient continues on room air, continues to have intermittent shortness of breath with exertion. According to the nurse that the patient is going to go for an I&D today with surgical services. Currently we are unaware of what time. Has been increasing drainage from the left axilla wound site. 12/17/16 upon examination today the patient's resting up in bed on room air. She states her breathing has improved. Patient did undergo an I&D with surgical services yesterday and a large abscess cavity was noted. The area was drained and currently has a dressing that is clean dry and intact. Patient states she is feeling significantly better. She has less pain to the abscess area. Cellulitis continues to improve. Patient has been afebrile. There has been mention of a possible wound VAC, although unclear if this will happen or not. 12/18/16 upon examination today the patient's resting up in bed on room air. Breathing is currently at her baseline. Patient did undergo an I&D was surgical services on the and a large abscess cavity was drained. Dressing clean dry and intact. Patient continues to follow with infectious disease. Patient continues to be afebrile. Patient is currently being worked up to possibly go to rehab upon discharge.. Objective - Vital Signs Vital signs: Vital Signs Temp 98.5 F 12/18/16 07:00 Pulse 63 12/18/16 08:00 Resp 16 12/18/16 08:00 BP 134/69 12/18/16 07:00 Pulse Ox 93 L 12/18/16 07:51 Intake & Output 12/17/16 12/18/16 12/18/16 18:59 06:59 18:59 Intake Total 100 590 Output Total 2425 700 Balance -2325 -110 Weight 122.9 kg Intake: IV 100 ceFAZolin 2 gm In Sodium 100 Chloride 0.9% 100 ml @ 100 mls/hr IVPB Q8HR [facility] Rx#:[id number] Oral 590 Output: Urine 2425 700 Straight 825 Other: Voiding Method Indwelling Catheter Indwelling Catheter Indwelling Catheter # Voids 0 # Bowel Movements 1 - Exam GENERAL EXAM: Awake, intermittent confusion noted slightly restless, in no apparent distress. HEAD: Normocephalic. EYES: Normal reaction of pupils, equal size. Dry eyes NOSE: Clear with pink turbinates. THROAT: No erythema or exudates. NECK: No masses, no JVD. CHEST: No chest wall deformity. LUNGS: Equal air entry with no crackles, wheeze, rhonchi or dullness. Diminished CVS: S1 and S2 normal with no audible mumurs, regular rhythm. ABDOMEN: No hepatosplenomegaly, normal bowel sounds, no guarding or rigidity. EXTREMITIES: No edema noted, pedal pulses palpable. SKIN: Left axilla noted to have an definite indurated area of erythema the area , dressing noted to left axilla I&D site Cellulitis improving CENTRAL NERVOUS SYSTEM: No focal deficits, tone is normal in all 4 extremities. - Labs CBC & Chem 7: 12/15/16 08:07 12/18/16 07:36 Labs: Abnormal Lab Results - Last 24 Hours (Table) 12/17/16 12/17/16 12/18/16 Range/Units 16:55 19:53 07:13 Sodium (137-145) mmol/L Potassium (3.5-5.1) mmol/L Carbon Dioxide (22-30) mmol/L BUN (7-17) mg/dL Glucose (74-99) mg/dL POC Glucose (mg/dL) 171 H 179 H 124 H (75-99) mg/dL Calcium (8.4-10.2) mg/dL 12/18/16 12/18/16 Range/Units 07:36 11:50 Sodium 135 L (137-145) mmol/L Potassium 5.2 H (3.5-5.1) mmol/L Carbon Dioxide 32 H (22-30) mmol/L BUN 25 H (7-17) mg/dL Glucose 103 H (74-99) mg/dL POC Glucose (mg/dL) 158 H (75-99) mg/dL Calcium 8.2 L (8.4-10.2) mg/dL Microbiology - Last 24 Hours (Table) 12/16/16 21:23 Gram Stain - Preliminary Axilla - Left Wound Culture - Preliminary Presumptive Staph aureus 12/16/16 21:23 Anaerobic Culture - Preliminary Axilla - Left Assessment and Plan Plan: Assessment Anaphylaxis reaction related to bee sting Metabolic acidosis and elevated d-dimer due to severe sepsis, related to staph wound infection and acute renal failure Acute hypoxic respiratory failure, Hypotension Left abscess of the axilla Cellulitis of the left axilla Schizoaffective disorder Anxiety Hypokalemic Morbid obesity Plan Patient could be discharged from a pulmonary standpoint. Discharge planning to a snf facility has been suggested. Medications have been reviewed and will be continued as ordered. Continue with antibiotics. Replace electrolytes and monitor per protocol. Cultures have come back as MSSA. Antibiotics had been adjusted by infectious disease. Continue with pulmonary hygiene, coughing and deep breathing exercises, and supportive care. Supplemental oxygen or BiPAP to maintain oxygen saturations of 92% or better. She will require a polysomnogram in the outpatient setting. Continue nebulizer treatments. GI and DVT prophylaxis. . We will continue to monitor labs/ results and adjust treatment as necessary. Further recommendations pending. I performed an examination of the patient and discussed their management with the nurse practitioner. I have reviewed the nurse practitioner's note and agree with the documented findings and plan of care.
[2016-12-18] MEDS ORDERED: LIDOCAINE 2% INJ 20 MG/ML (20 ML MDV) ONE (14:39)
[2016-12-18] MEDS ORDERED: LIDOCAINE 2% INJ 20 MG/ML SQ ONE (15:04)
--- NOTE | 2016-12-18 15:43 | IR ---
EXAMINATION TYPE: IR cvc insert >=5 years DATE OF EXAM: 12/18/2016 COMPARISON: NONE CLINICAL HISTORY: Infection Needs long-term intravenous access for antibiotics. PROCEDURE: After informed consent, the skin overlying the right basilic vein was localized with ultrasound and n oted to be compressible and patent. An ultrasound image was obtained and submitted on the patient's chart. The overlying skin was prepped and draped and Lidocaine was used for local anesthesia. A ski n vero was made with a scalpel. Access was gained to the vein under ultrasound guidance with a 21 ga uge needle and a 0.018 inch wire was advanced. Access site was dilated with Peel-Away sheath and cat heter tailored to the appropriate length and advanced such that the distal tip is at the cavoatrial j unction. Spot image was obtained verifying placement. Catheter was fixed to the skin with suture an d a sterile dressing was placed following hemostasis. Catheter was aspirated and flushed with saline . Patient was discharged in stable condition without complication. Maximal barrier technique is util ized. Ultrasound image is documented on the chart. Ultrasound used with sterile technique. Fluoro time and fluoroscopic images submitted to document procedure: 24 intraoperative C-arm images, 0.6 minutes fluoroscopy time IMPRESSION: STATUS POST ULTRASOUND AND FLUOROSCOPIC GUIDED PICC LINE PLACEMENT, READY FOR USE. THIS PROCEDURE WAS PERFORMED BY THE UNDERSIGNED.
[2016-12-18] MEDS ORDERED: ceFAZolin 2 GM in SODIUM CHLORIDE 0.9% 100 ML IVPB SCH (16:00)
--- NOTE | 2016-12-18 16:25 | P.PN ---
Subjective Principal diagnosis: Left axillary abscess The patient is status post incision and drainage of left axillary abscess. She says it feels better. Objective - Vital Signs Vital signs: Vital Signs Temp 98.4 F 12/18/16 15:00 Pulse 76 12/18/16 15:00 Resp 16 12/18/16 15:21 BP 143/64 12/18/16 15:00 Pulse Ox 93 L 12/18/16 15:00 Intake & Output 12/17/16 12/18/16 12/18/16 18:59 06:59 18:59 Intake Total 100 590 100 Output Total 2425 700 700 Balance -2325 -110 -600 Weight 122.9 kg 122.9 kg Intake: IV 100 100 ceFAZolin 2 gm In Sodium 100 100 Chloride 0.9% 100 ml @ 100 mls/hr IVPB Q8HR [facility] Rx#:[id number] Oral 590 Output: Urine 2425 700 700 Straight 825 Other: Voiding Method Indwelling Catheter Indwelling Catheter Indwelling Catheter # Voids 0 0 # Bowel Movements 1 - Constitutional General appearance: Present: cooperative - Integumentary Integumentary Comment(s): Marked edema in both upper extremities. There is a incision in her left axilla with packing in place. No significant surrounding cellulitis today. The dressing will be changed by nursing this morning. - Labs CBC & Chem 7: 12/15/16 08:07 12/18/16 07:36 Labs: Abnormal Lab Results - Last 24 Hours (Table) 12/17/16 12/17/16 12/18/16 Range/Units 16:55 19:53 07:13 Sodium (137-145) mmol/L Potassium (3.5-5.1) mmol/L Carbon Dioxide (22-30) mmol/L BUN (7-17) mg/dL Glucose (74-99) mg/dL POC Glucose (mg/dL) 171 H 179 H 124 H (75-99) mg/dL Calcium (8.4-10.2) mg/dL 12/18/16 12/18/16 Range/Units 07:36 11:50 Sodium 135 L (137-145) mmol/L Potassium 5.2 H (3.5-5.1) mmol/L Carbon Dioxide 32 H (22-30) mmol/L BUN 25 H (7-17) mg/dL Glucose 103 H (74-99) mg/dL POC Glucose (mg/dL) 158 H (75-99) mg/dL Calcium 8.2 L (8.4-10.2) mg/dL Microbiology - Last 24 Hours (Table) 12/16/16 21:23 Gram Stain - Preliminary Axilla - Left Wound Culture - Preliminary Presumptive Staph aureus Assessment and Plan (1) Abscess of axilla, left Status: Acute Plan: Recommendation is start wound VAC. The abscess currently appears to be adequately drained. Continue IV antibiotics.
--- NOTE | 2016-12-18 16:53 | P.DS ---
Providers Date of admission: 12/04/16 21:54 Attending physician: Marvin Elizabeth Consults: 12/04/16 22:34 Consult Physician Urgent Consulting Provider: Simeon Mora Consult Reason/Comments: dypsnea, elevated d-dimer, r/o PE Do you want consulting provider notified?: Yes 12/05/16 12:05 Consult Physician Routine Consulting Provider: Medhat Mantilla Consult Reason/Comments: elevated creatnine Do you want consulting provider notified?: Yes 12/05/16 12:36 Consult Physician Routine Consulting Provider: Juan Juarez Consult Reason/Comments: elevated d dimer Do you want consulting provider notified?: Yes 12/05/16 12:38 Consult Physician Routine Consulting Provider: Matthew Elmore Consult Reason/Comments: cellulitis Do you want consulting provider notified?: Yes 12/06/16 01:01 Consult Physician Stat Consulting Provider: Shirley Del Angel Consult Reason/Comments: hx of cva/TIA, lethargy Do you want consulting provider notified?: Yes, Notify in am 12/13/16 10:59 Consult Physician Routine Consulting Provider: Darian Alvarez Consult Reason/Comments: left axilla abcess Do you want consulting provider notified?: Yes Primary care physician: [facility] Course: Ms. Corey is a 61-year-old patient of visiting physicians Dr. Muro. Patient is resident of a prison called [facility]. Patient's chronic stable medical conditions include coronary artery disease with a 50% LAD lesion, GERD, hypertension, hyperlipidemia, schizoaffective disorder, anxiety, peripheral neuropathy and macular degeneration. Patient apparently for 3 days had noticed swelling and redness of the left arm not sure if something can better and presented to ER. Patient was found to be hypotensive with extensive rash and patient is given IV Solu-Medrol IV Benadryl and Pepcid and admitted to the medical floor. Patient became hypotensive and hypoxic was transferred to the intensive care unit with a consultation to critical care and infectious disease. Patient got a definite induration and redness in the left axillary area. Patient does confirm that she does use a razor in the left armpit. Patient was acidotic and was put on a bicarbonate drip patient also found to be in acute renal failure. Patient's condition improved with IV antibiotics. On 12/10/16 - Pt was found to be Hypoxic , so ABG obtained and she was then placed on BiPAP . She is currently on Bipap not in respiratory distress. On 12/11/16 Pt.s respiratory status much improved. saturating well on NC. was able to answer. no fever/chils. no overnight issues. Review of systems - She states that she is feeling very weak and tired. She denies having any chest pain or cough. No complaints of any abdominal pain nausea vomiting or diarrhea. She has difficulty in breathing . 12/12/16 states that she feels more cloudy today no fevers, chills, nausea, vomiting, diarrhea reported discharge from her axilla is reported 06/26/2016 Patient states to be slightly improved however continues to have discharge from her axillary region No fevers chills nausea vomiting or diarrhea reported 12/14/16 slightly improved continues to have drainage from her left axilla 12/15/16 increased drainage is reported from the left axilla NO fevers 12/17/2016 Patient is status post I&D a large abscess cavity was noted Dressing changes were done today. Patient states that she is feeling significantly better Denies having any fevers chills nausea vomiting or diarrhea - Exam GENERAL EXAM: Less somnolent today, comfortable in no apparent distress. HEAD: Normocephalic. EYES: Normal reaction of pupils, equal size. Dry eyes NECK: No masses, no JVD. LUNGS: Equal air entry . Diminished BS in all lung doyle. Coarse breath sounds at the lower bases. CVS: S1 and S2 normal with no audible mumurs, regular rhythm. ABDOMEN: No hepatosplenomegaly, normal bowel sounds, no guarding or rigidity. EXTREMITIES: No edema noted, pedal pulses palpable. SKIN: Dressing noted in the left axillary region No significant tenderness CENTRAL NERVOUS SYSTEM: No focal deficits, tone is normal in all 4 extremities. Assessment and Plan Plan: Assessment - Acute Hypoxic respiratory failure - resolved . was placed on BiPAP. on NC now. - Acute ALLERGIC reaction could be from an insect bite exact cause unknown responded well - Left axillary cellulitis -Acute exacerbation of intermittent asthma causing acute hypoxic respiratory failure -Coronary artery disease with non-obstructive 50% LAD lesion -GERD -Essential hypertension -Hyperlipidemia -Metabolic acidosis -Hyponatremia - hypovolemic hyponatremia -Schizoaffective disorder, chronic -Anxiety disorder and otherwise specified -Peripheral neuropathy cause unknown -Acute metabolic encephalopathy multifactorial -Acute renal failure, nonoliguric probably ATN DUE TO HYPOTENSION CODE STATUS full code Continue IV antibiotic hence a PICC line is placed A wound VAC on discharge discussed with Dr. Elmore Patient [facility] Patient Condition at Discharge: Fair Plan - Discharge Summary New Discharge Prescriptions: New ALPRAZolam [Xanax] 0.5 mg PO TID PRN #10 tab PRN Reason: Anxiety Nystatin 100,000 Unit/ml Susp [Mycostatin Oral Susp] 500,000 unit PO QID dose Continue Omeprazole [PriLOSEC] 40 mg PO AC-BRKFST Cyanocobalamin [Vitamin B-12] 1,000 mcg PO Q48H Cholecalciferol [Vitamin D3] 2,000 unit PO DAILY Citalopram Hydrobromide [Citalopram HBr] 40 mg PO DAILY Atenolol [Tenormin] 25 mg PO DAILY Gabapentin [Neurontin] 300 mg PO BID Loratadine [Claritin] 10 mg PO DAILY Sennosides [Senna] 8.6 mg PO BID Nitroglycerin Sl Tabs [Nitrostat] 0.4 mg SUBLINGUAL Q5M PRN PRN Reason: Chest Pain Vit A/Vit C/Vit E/Zinc/Copper [ICAPS SOFTGEL] 1 cap PO DAILY QUEtiapine [SEROquel] 400 mg PO HS QUEtiapine FUMARATE [Seroquel Xr] 400 mg PO DAILY@1600 Calcium Carbonate [Tums] 500 mg PO TID PRN PRN Reason: Indigestion Simvastatin [Zocor] 20 mg PO HS Aspirin EC [Ecotrin Low Dose] 81 mg PO DAILY Discontinued LORazepam [Ativan] 1 mg PO BID Ibuprofen [Motrin] 600 mg PO Q6H PRN PRN Reason: Pain Discharge Medication List Cholecalciferol [Vitamin D3] 2,000 unit PO DAILY 08/06/14 [History] Citalopram Hydrobromide [Citalopram HBr] 40 mg PO DAILY 08/06/14 [History] Cyanocobalamin [Vitamin B-12] 1,000 mcg PO Q48H 08/06/14 [History] Omeprazole [PriLOSEC] 40 mg PO AC-BRKFST 08/06/14 [History] Atenolol [Tenormin] 25 mg PO DAILY 07/21/16 [History] Gabapentin [Neurontin] 300 mg PO BID 07/21/16 [History] Loratadine [Claritin] 10 mg PO DAILY 07/21/16 [History] Sennosides [Senna] 8.6 mg PO BID 07/21/16 [History] Nitroglycerin Sl Tabs [Nitrostat] 0.4 mg SUBLINGUAL Q5M PRN 07/22/16 [History] Vit A/Vit C/Vit E/Zinc/Copper [ICAPS SOFTGEL] 1 cap PO DAILY 07/22/16 [History] Aspirin EC [Ecotrin Low Dose] 81 mg PO DAILY 07/27/16 [History] Calcium Carbonate [Tums] 500 mg PO TID PRN 07/27/16 [History] QUEtiapine FUMARATE [Seroquel Xr] 400 mg PO DAILY@1600 07/27/16 [History] QUEtiapine [SEROquel] 400 mg PO HS 07/27/16 [History] Simvastatin [Zocor] 20 mg PO HS 07/27/16 [History] ALPRAZolam [Xanax] 0.5 mg PO TID PRN #10 tab 12/18/16 [Rx] Nystatin 100,000 Unit/ml Susp [Mycostatin Oral Susp] 500,000 unit PO QID dose 12/18/16 [Rx] Follow up Appointment(s)/Referral(s): Simeon Mora MD [STAFF PHYSICIAN] - 1 Week Darian Alvarez MD [STAFF PHYSICIAN] - 1 Week Activity/Diet/Wound Care/Special Instructions: use white foam with wound vac per Dr. Poole left axillary wound wound length =6cm,width=2cm,depth = 2.8cm tunneling [id number] =5.2cm tunneling at 3 oclock=0 tunneling at 6 oclock=5cm tunneling at 9oclock=4cm [ End ]
--- NOTE | 2016-12-18 16:57 | P.PN ---
Subjective Ms. Corey is a 61-year-old patient of visiting physicians Dr. Muro. Patient is resident of a [facility] called [facility]. Patient's chronic stable medical conditions include coronary artery disease with a 50% LAD lesion, GERD, hypertension, hyperlipidemia, schizoaffective disorder, anxiety, peripheral neuropathy and macular degeneration. Patient apparently for 3 days had noticed swelling and redness of the left arm not sure if something can better and presented to ER. Patient was found to be hypotensive with extensive rash and patient is given IV Solu-Medrol IV Benadryl and Pepcid and admitted to the medical floor. Patient became hypotensive and hypoxic was transferred to the intensive care unit with a consultation to critical care and infectious disease. Patient got a definite induration and redness in the left axillary area. Patient does confirm that she does use a razor in the left armpit. Patient was acidotic and was put on a bicarbonate drip patient also found to be in acute renal failure. Patient's condition improved with IV antibiotics. On 12/10/16 - Pt was found to be Hypoxic , so ABG obtained and she was then placed on BiPAP . She is currently on Bipap not in respiratory distress. On 12/11/16 Pt.s respiratory status much improved. saturating well on NC. was able to answer. no fever/chils. no overnight issues. Review of systems - She states that she is feeling very weak and tired. She denies having any chest pain or cough. No complaints of any abdominal pain nausea vomiting or diarrhea. She has difficulty in breathing . 12/12/16 states that she feels more cloudy today no fevers, chills, nausea, vomiting, diarrhea reported discharge from her axilla is reported 06/26/2016 Patient states to be slightly improved however continues to have discharge from her axillary region No fevers chills nausea vomiting or diarrhea reported 12/14/16 slightly improved continues to have drainage from her left axilla 12/15/16 increased drainage is reported from the left axilla NO fevers 12/17/2016 Patient is status post I&D a large abscess cavity was noted Dressing changes were done today. Patient states that she is feeling significantly better Denies having any fevers chills nausea vomiting or diarrhea - Exam GENERAL EXAM: Less somnolent today, comfortable in no apparent distress. HEAD: Normocephalic. EYES: Normal reaction of pupils, equal size. Dry eyes NECK: No masses, no JVD. LUNGS: Equal air entry . Diminished BS in all lung doyle. Coarse breath sounds at the lower bases. CVS: S1 and S2 normal with no audible mumurs, regular rhythm. ABDOMEN: No hepatosplenomegaly, normal bowel sounds, no guarding or rigidity. EXTREMITIES: No edema noted, pedal pulses palpable. SKIN: Dressing noted in the left axillary region No significant tenderness CENTRAL NERVOUS SYSTEM: No focal deficits, tone is normal in all 4 extremities. Assessment and Plan Plan: Assessment - Acute Hypoxic respiratory failure - resolved . was placed on BiPAP. on NC now. - Acute ALLERGIC reaction could be from an insect bite exact cause unknown responded well - Left axillary cellulitis -Acute exacerbation of intermittent asthma causing acute hypoxic respiratory failure -Coronary artery disease with non-obstructive 50% LAD lesion -GERD -Essential hypertension -Hyperlipidemia -Metabolic acidosis -Hyponatremia - hypovolemic hyponatremia -Schizoaffective disorder, chronic -Anxiety disorder and otherwise specified -Peripheral neuropathy cause unknown -Acute metabolic encephalopathy multifactorial -Acute renal failure, nonoliguric probably ATN DUE TO HYPOTENSION CODE STATUS full code Continue IV antibiotic A wound VAC on discharge was discussed with Dr. Elmore Patient will be discharged to a penitentiary Objective - Vital Signs Vital signs: Vital Signs Temp 98.4 F 12/18/16 15:00 Pulse 76 12/18/16 15:00 Resp 16 12/18/16 15:21 BP 143/64 12/18/16 15:00 Pulse Ox 93 L 12/18/16 15:00 Intake & Output 12/17/16 12/18/16 12/18/16 18:59 06:59 18:59 Intake Total 100 590 100 Output Total 2425 700 1200 Balance -2325 -110 -1100 Weight 122.9 kg 122.9 kg Intake: IV 100 100 ceFAZolin 2 gm In Sodium 100 100 Chloride 0.9% 100 ml @ 100 mls/hr IVPB Q8HR AMADA Rx#:[id number] Oral 590 Output: Urine 2425 700 1200 Straight 825 Other: Voiding Method Indwelling Catheter Indwelling Catheter Indwelling Catheter # Voids 0 0 # Bowel Movements 1 - Labs CBC & Chem 7: 12/15/16 08:07 12/18/16 07:36 Labs: Abnormal Lab Results - Last 24 Hours (Table) 12/17/16 12/17/16 12/18/16 Range/Units 16:55 19:53 07:13 Sodium (137-145) mmol/L Potassium (3.5-5.1) mmol/L Carbon Dioxide (22-30) mmol/L BUN (7-17) mg/dL Glucose (74-99) mg/dL POC Glucose (mg/dL) 171 H 179 H 124 H (75-99) mg/dL Calcium (8.4-10.2) mg/dL 12/18/16 12/18/16 Range/Units 07:36 11:50 Sodium 135 L (137-145) mmol/L Potassium 5.2 H (3.5-5.1) mmol/L Carbon Dioxide 32 H (22-30) mmol/L BUN 25 H (7-17) mg/dL Glucose 103 H (74-99) mg/dL POC Glucose (mg/dL) 158 H (75-99) mg/dL Calcium 8.2 L (8.4-10.2) mg/dL Microbiology - Last 24 Hours (Table) 12/16/16 21:23 Gram Stain - Preliminary Axilla - Left Wound Culture - Preliminary Presumptive Staph aureus
[2016-12-18 17:01] LABS: Glucose,Whole Blood 117 mg/dL (75-99)
--- NOTE | 2016-12-18 17:34 | P.PN ---
Subjective Principal diagnosis: Generalized weakness 61-year-old female is underlying history of schizophrenia and is cared for in a assisted environment has been ill for approximately 3 days. It is noted by the current available evidence. She does have a caregiver that help with the information admission. She is having difficulties with her left axillary area with some drainage. Then it was noted that she suffered what was thought to be a bee sting on to the left arm area. Developed extensive rash and hives and some shortness of breath. She was treated with Benadryl as well as epinephrine and Solu-Medrol. She is brought to the intensive care unit. She 'was hypotensive and was having difficulty with her speech. Speech however is at its baseline abnormal. She recovered from the hives. Continues to have cellulitis of the left axillary area The patient does respond to simple questions. Seems to be more comfortable today. Denied new symptoms. Doing Less confused able to answer that she is in the hospital. She's in the [facility]. improved mental status. Computed tomography scan has been performed revealing evidence of some phlegmon the left axillary area He has noted a case was discussed with the hospitalist and the surgeon. She's now had incision and drainage in the very large abscess cavity was found. It is packed with large amount of gauze. She is comfortable denies increased new discomforts Objective - Vital Signs Vital signs: Vital Signs Temp 98.4 F 12/18/16 15:00 Pulse 76 12/18/16 15:00 Resp 16 12/18/16 15:21 BP 143/64 12/18/16 15:00 Pulse Ox 93 L 12/18/16 15:00 Intake & Output 12/17/16 12/18/16 12/18/16 18:59 06:59 18:59 Intake Total 100 590 100 Output Total 2425 700 1200 Balance -2325 -110 -1100 Weight 122.9 kg 122.9 kg Intake: IV 100 100 ceFAZolin 2 gm In Sodium 100 100 Chloride 0.9% 100 ml @ 100 mls/hr IVPB Q8HR AMADA Rx#:[id number] Oral 590 Output: Urine 2425 700 1200 Straight 825 Other: Voiding Method Indwelling Catheter Indwelling Catheter Indwelling Catheter # Voids 0 0 # Bowel Movements 1 - Exam 61-year-old woman who appears older than her stated age. Occasionally open eyes to the exam. Occasional responses are noted. HEENT: Anicteric conjunctiva are pink and moist nasal mucosa grossly intact without significant lesions, there is no thrush. Oral mucosa is dry Neck: The neck is supple without significant lymphadenopathy or thyromegaly. Lungs: Good bilateral air entry without significant crackles or wheezing. There is no significant bronchial sounds. There is no egophony or dullness. Heart: Regular rate and rhythm with an audible S1-S2, no S3 no S4. There is no significant murmur click or rub, PMI was nondisplaced. Abdomen: Positive bowel sounds soft and nontender without palpable masses or organomegaly. There was no guarding or rebound. Extremities: The upper extremities have excellent pulses they are symmetric, no significant petechiae or telangiectasia. No splinter hemorrhages were noted. The surgical incision is noted. The large copious amounts of purulent material is no longer draining and the opened area. Large amount of gauze has been packed into the open ulceration. The surrounding erythema and tenderness have improved. The lower extremities are free from significant lesions the peripheral pulses were 2+ and symmetric. Neuro: Arousable mproved mental status answering simple questions - Labs CBC & Chem 7: 12/15/16 08:07 12/18/16 07:36 Labs: Abnormal Lab Results - Last 24 Hours (Table) 12/17/16 12/18/16 12/18/16 Range/Units 19:53 07:13 07:36 Sodium 135 L (137-145) mmol/L Potassium 5.2 H (3.5-5.1) mmol/L Carbon Dioxide 32 H (22-30) mmol/L BUN 25 H (7-17) mg/dL Glucose 103 H (74-99) mg/dL POC Glucose (mg/dL) 179 H 124 H (75-99) mg/dL Calcium 8.2 L (8.4-10.2) mg/dL 12/18/16 12/18/16 Range/Units 11:50 16:51 Sodium (137-145) mmol/L Potassium (3.5-5.1) mmol/L Carbon Dioxide (22-30) mmol/L BUN (7-17) mg/dL Glucose (74-99) mg/dL POC Glucose (mg/dL) 158 H 117 H (75-99) mg/dL Calcium (8.4-10.2) mg/dL Microbiology - Last 24 Hours (Table) 12/16/16 21:23 Gram Stain - Preliminary Axilla - Left Wound Culture - Preliminary Presumptive Staph aureus Laboratory Results WBC 7.9 k/uL (3.8-10.6) 12/15/16 08:07 RBC 3.52 m/uL (3.80-5.40) L 12/15/16 08:07 Hgb 11.5 gm/dL (11.4-16.0) 12/15/16 08:07 Hct 35.5 % (34.0-46.0) 12/15/16 08:07 MCV 100.9 fL (80.0-100.0) H 12/15/16 08:07 MCH 32.8 pg (25.0-35.0) 12/15/16 08:07 MCHC 32.5 g/dL (31.0-37.0) 12/15/16 08:07 RDW 13.7 % (11.5-15.5) 12/15/16 08:07 Plt Count 337 k/uL (150-450) 12/15/16 08:07 Neutrophils % 88 % 12/15/16 08:07 Neutrophils % (Manual) 78.0 % 12/07/16 06:43 Band Neutrophils % 16.5 % 12/07/16 06:43 Lymphocytes % 7 % 12/15/16 08:07 Lymphocytes % (Manual) 4.0 % 12/07/16 06:43 Monocytes % 3 % 12/15/16 08:07 Monocytes % (Manual) 1.0 % 12/07/16 06:43 Eosinophils % 0 % 12/15/16 08:07 Eosinophils % (Manual) 0.5 % 12/06/16 04:25 Basophils % 0 % 12/15/16 08:07 Metamyelocytes % 1.0 % 12/06/16 04:25 Myelocytes % 0.5 % 12/07/16 06:43 Neutrophils # 6.9 k/uL (1.3-7.7) 12/15/16 08:07 Neutrophils # (Manual) 10.3 k/uL (1.3-7.7) H 12/07/16 06:43 Lymphocytes # 0.6 k/uL (1.0-4.8) L 12/15/16 08:07 Lymphocytes # (Manual) 0.4 k/uL (1.0-4.8) L 12/07/16 06:43 Monocytes # 0.3 k/uL (0-1.0) 12/15/16 08:07 Monocytes # (Manual) 0.1 k/uL (0-1.0) 12/07/16 06:43 Eosinophils # 0.0 k/uL (0-0.7) 12/15/16 08:07 Eosinophils # (Manual) 0.0 k/uL (0-0.7) 12/06/16 04:25 Basophils # 0.0 k/uL (0-0.2) 12/15/16 08:07 Nucleated RBCs 0 /100 WBC (0-0) 12/07/16 06:43 Manual Slide Review Performed 12/08/16 05:52 Toxic Vacuolation Present 12/06/16 04:25 Polychromasia Present 12/06/16 04:25 Hypochromasia Slight 12/12/16 07:00 Poikilocytosis (manual Present 12/08/16 05:52 Anisocytosis (manual) Present 12/06/16 04:25 Macrocytosis Slight 12/15/16 08:07 Crenated Cell Present 12/06/16 04:25 ESR 110 mm/hr (0-20) H 12/06/16 14:55 PT 10.6 sec (9.0-12.0) 12/04/16 19:36 INR 1.0 (<1.2) 12/04/16 19:36 APTT 34.1 sec (22.0-30.0) H 12/08/16 05:52 D-Dimer 5.28 mg/L FEU (<0.60) H 12/04/16 19:36 Sample Site rbrac 12/10/16 11:45 ABG pH 7.49 (7.35-7.45) H 12/10/16 11:45 ABG pCO2 29 mmHg (35-45) L 12/10/16 11:45 ABG pO2 83 mmHg (83-108) 12/10/16 11:45 ABG HCO3 22 mmol/L (21-25) 12/10/16 11:45 ABG Total CO2 22 mmol/L (19-24) 12/10/16 11:45 ABG O2 Saturation 97.0 % (94-97) 12/10/16 11:45 ABG Base Excess -1.5 mmol/L 12/10/16 11:45 ABG Hematocrit 34 % (34.0-46.0) 12/05/16 11:45 FiO2 32 % 12/10/16 11:45 Sodium 135 mmol/L (137-145) L 12/18/16 07:36 Potassium 5.2 mmol/L (3.5-5.1) H 12/18/16 07:36 Chloride 101 mmol/L (98-107) 12/18/16 07:36 Carbon Dioxide 32 mmol/L (22-30) H 12/18/16 07:36 Anion Gap 2 mmol/L 12/18/16 07:36 BUN 25 mg/dL (7-17) H 12/18/16 07:36 Creatinine 0.56 mg/dL (0.52-1.04) 12/18/16 07:36 Est GFR (MDRD) Af Amer >60 (>60 ml/min/1.73 sqM) 12/18/16 07:36 Est GFR (MDRD) Non-Af >60 (>60 ml/min/1.73 sqM) 12/18/16 07:36 Glucose 103 mg/dL (74-99) H 12/18/16 07:36 POC Glucose (mg/dL) 117 mg/dL (75-99) H 12/18/16 16:51 POC Glu Sheeter Waxer Operator ID Ashwin Kerr 12/18/16 16:[address] Glu mg/dL 128 mg/dL 12/05/16 04:12 Hemoglobin A1c 6.1 % (4.2-6.1) 12/05/16 04:12 Lactic Ac Sepsis Rflx Y 12/04/16 20:23 Plasma Lactic Acid Britton 2.0 mmol/L (0.7-2.0) 12/05/16 00:02 Calcium 8.2 mg/dL (8.4-10.2) L 12/18/16 07:36 Phosphorus 3.0 mg/dL (2.5-4.5) 12/07/16 06:43 Magnesium 2.3 mg/dL (1.6-2.3) 12/08/16 05:52 Total Bilirubin 0.5 mg/dL (0.2-1.3) 12/15/16 08:07 AST 25 U/L (14-36) 12/15/16 08:07 ALT 23 U/L (9-52) 12/15/16 08:07 Alkaline Phosphatase 69 U/L (38-126) 12/15/16 08:07 Total Creatine Kinase 504 U/L (30-135) H 12/05/16 07:24 CK-MB (CK-2) 7.8 ng/mL (0.0-2.4) H* 12/05/16 07:24 CK-MB (CK-2) Rel Index 1.5 12/05/16 07:24 Troponin I <0.012 ng/mL (0.000-0.034) 12/05/16 07:24 C-Reactive Protein 401.6 mg/L (<10.0) H 12/06/16 14:55 NT-Pro-B Natriuret Pep 8270 pg/mL 12/04/16 19:36 Total Protein 4.8 g/dL (6.3-8.2) L 12/15/16 08:07 Albumin 2.2 g/dL (3.5-5.0) L 12/15/16 08:07 Vitamin B12 >1000 pg/mL (239-931) H 12/06/16 14:55 Vit D 1,25-Dihydroxy 88 pg/mL (20 - 79) H 12/06/16 14:55 Alpha-Tocopherol 1512 ug/dL (500-1800) 12/06/16 14:55 Vitamin K 73 pg/mL (80-1160) L 12/06/16 14:55 Urine Color Dark Brown 12/04/16 20:18 Urine Appearance Cloudy (Clear) H 12/04/16 20:18 Urine pH 5.0 (5.0-8.0) 12/04/16 20:18 Ur Specific [place] 1.018 (1.001-1.035) 12/04/16 20:18 Urine Protein 1+ (Negative) H 12/04/16 20:18 Urine Glucose (UA) Negative (Negative) 12/04/16 20:18 Urine Ketones Negative (Negative) 12/04/16 20:18 Urine Blood Negative (Negative) 12/04/16 20:18 Urine Nitrite Negative (Negative) 12/04/16 20:18 Urine Bilirubin 1+ (Negative) H 12/04/16 20:18 Urine Urobilinogen 4.0 mg/dL (<2.0) 12/04/16 20:18 Ur Leukocyte Esterase Negative (Negative) 12/04/16 20:18 Urine RBC 1 /hpf (0-5) 12/04/16 20:18 Urine WBC 3 /hpf (0-5) 12/04/16 20:18 Urine Bacteria Rare /hpf (None) H 12/04/16 20:18 Hyaline Casts 4 /lpf (0-2) H 12/04/16 20:18 Urine Yeast (Budding) Few /hpf (None) H 12/04/16 20:18 Random Vancomycin 6.2 ug/mL 12/07/16 06:43 Urine Opiates Screen Not Detected (NotDetected) 12/04/16 20:18 Ur Oxycodone Screen Not Detected (NotDetected) 12/04/16 20:18 Urine Methadone Screen Not Detected (NotDetected) 12/04/16 20:18 Ur Propoxyphene Screen Not Detected (NotDetected) 12/04/16 20:18 Ur Barbiturates Screen Not Detected (NotDetected) 12/04/16 20:18 U Tricyclic Antidepress Detected (NotDetected) H 12/04/16 20:18 Ur Phencyclidine Scrn Not Detected (NotDetected) 12/04/16 20:18 Ur Amphetamines Screen Not Detected (NotDetected) 12/04/16 20:18 U Methamphetamines Scrn Not Detected (NotDetected) 12/04/16 20:18 U Benzodiazepines Scrn Detected (NotDetected) H 12/04/16 20:18 Urine Cocaine Screen Not Detected (NotDetected) 12/04/16 20:18 U Marijuana (THC) Screen Not Detected (NotDetected) 12/04/16 20:18 JANAK Antibody <5 IU/mL (<5) 12/06/16 14:55 Microbiology 12/16/16 21:23 Axilla - Left Gram Stain - Preliminary 12/16/16 21:23 Axilla - Left Wound Culture - Preliminary Presumptive Staph aureus 12/16/16 21:23 Axilla - Left Anaerobic Culture - Preliminary 12/04/16 19:36 Blood Blood Culture - Final No Growth after 144 hours 12/04/16 21:30 Axilla - Left Gram Stain - Final 12/04/16 21:30 Axilla - Left Wound Culture - Final Staphylococcus aureus 12/04/16 20:18 Urine,Catheterized Urine Culture - Final Assessment and Plan (1) Anaphylactic reaction Status: Acute (2) Abscess of axilla, left Narrative/Plan: 61-year-old female presents from her intermediate with some increasing weakness. Admission without evidence of sepsis apparently in the base of the significant cellulitis and abscess to her left axillary area. She hasn't had the significant hives and swelling responded well to intervention with Benadryl , epinephrine and steroids. She apparently is improved from her admission. The extensive acidosis was noted and is being corrected. Antibiotic therapy was initiated with vancomycin and ampicillin sulbactam. Given her acute renal failure we'll avoid further doses of vancomycin in utilize Ceftaroline was to give coverage for MRSA as well as staph and strep which we, pathogens of the axillary area. Continue ongoing supportive care. Dry dressing for the drainage. Cultures in process. The patient is now improved. Cultures have come back as MSSA. Ceftaroline was transitioned to Ancef 2 g IVPB back every 8 hours given her marked improved renal failure. Continue for now. Her acidosis has resolved. Overall she is improving. With the improved renal function CT angiogram has been performed without evidence of a pulmonary embolus. The axillary area started to have more drainage. The area became more fluctuant. Surgeon surgeon was called. She's now been taking for the incision and drainage. The large cavity was found. It is been debrided. He is now packed. Once infection is improved within be a candidate for negative pressure therapy system to this area. This could be on Wednesday. If she transferred to the extended care facility continued interest anabolic therapy for [address] orders for the negative pressure therapy system next week. Status: Acute
[2016-12-18 20:13] LABS: Glucose,Whole Blood 129 mg/dL (75-99)
[2016-12-18] MEDS: ATORVASTATIN 10 MG TAB PO SCH (20:54)
[2016-12-19 06:57] LABS: Glucose,Whole Blood 118 mg/dL (75-99)
[2016-12-19] MEDS: BUDESONIDE 0.5 MG/2 ML NEBU INHALATION SCH ×2 (07:20→20:16)
[2016-12-19 07:57] LABS: Anion Gap 4 mmol/L; Blood Urea Nitrogen 21 mg/dL (7-17); Carbon Dioxide 30 mmol/L (22-30); Chloride 101 mmol/L (98-107); Glucose 100 mg/dL (74-99); Non-African American GFR(MDRD) >60 (>60 ml/min/1.73 sqM); Potassium 4.1 mmol/L (3.5-5.1); Sodium 135 mmol/L (137-145)
[2016-12-19] MEDS: METOPROLOL TARTRATE 25 MG TAB PO SCH ×3 (08:50→21:02)
[2016-12-19] MEDS: HEPARIN SODIUM,PORCINE 5,000 UNIT/ML 1 ML VIAL SQ SCH ×3 (08:50→23:51)
[2016-12-19] MEDS: SENNOSIDES 8.6 MG TAB PO SCH ×2 (08:50→21:03)
[2016-12-19] MEDS: GABAPENTIN 300 MG CAP PO SCH ×2 (08:50→21:03)
[2016-12-19] MEDS: CITALOPRAM HYDROBROMIDE 20 MG TAB PO SCH (08:50)
[2016-12-19] MEDS: FAMOTIDINE 20 MG TAB PO SCH ×2 (08:50→21:03)
[2016-12-19] MEDS: ASPIRIN 81 MG CHEW PO SCH (08:50)
[2016-12-19] MEDS: INSULIN LISPRO (humaLOG) 300 UNIT/3 ML VIAL SQ SCH ×4 (08:51→21:09)
[2016-12-19] MEDS: NYSTATIN 100,000 UNIT/ML SUSP 500,000 UNIT/5 ML CUP PO SCH ×4 (08:52→21:03)
[2016-12-19] MEDS: methylPREDNISolone SOD SUCCI 40 MG/ML 1 ML VIAL IV SCH ×2 (08:56→21:02)
--- NOTE | 2016-12-19 09:00 | PN ---
The patient is seen for followup for acute kidney injury. Her renal function has resolved and improved with the serum creatinine of 0.56 down from 3.4 mg/ dL. Potassium is noted to be mildly elevated at 5.2 mEq/L. Currently, patient is maintained on IV antibiotics. She is not on any IV fluids. On examination, blood pressure was 138/71, heart rate 71 per minute. She is afebrile. EXAMINATION OF THE HEART: S1 and S2. EXAMINATION OF LUNGS: Bilateral breath sounds are heard. ABDOMEN: Soft, nontender. Examination of lower extremities shows no significant edema in the lower extremities. Area of left axillary abscess is dressed. Labs are not available from today. Potassium was 5.2 yesterday. ASSESSMENT: 1. Acute kidney injury, currently resolved. 2. Mild hyperkalemia, not on any medications to precipitate hyperkalemia at this time. Will repeat labs from today. 3. Status post bee sting and left axillary abscess, maintained on antibiotics and improving. PLAN: Repeat labs today. ESTEBAND
[2016-12-19] MEDS: ceFAZolin 2 GM in SODIUM CHLORIDE 0.9% 100 ML IVPB SCH ×3 (09:02→23:51)
[2016-12-19 12:06] LABS: Glucose,Whole Blood 104 mg/dL (75-99)
[2016-12-19] MEDS: HYDROmorphone 1 MG/ML 1 ML SYRINGE IVP PRN (12:14)
--- NOTE | 2016-12-19 12:17 | P.PN ---
Progress Note - Text Plans are for a wound VAC to be placed early in the week. We'll initiate local wound care. Continue IV antibiotics.
--- NOTE | 2016-12-19 12:49 | P.PN ---
Subjective Principal diagnosis: 12/06/16- This is a 61-year-old female who came into emergency department with shortness of breath and generalized weakness that had been developing over the last 3-4 days. Apparently the patient was stung by a bee in her left axilla, the area became extremely itchy with a diffuse reddened rash. The patient states she also shaved her left axilla in the cellulitis developed. The patient became unresponsive and received an EpiPen injection as well as Benadryl with EMS. This patient lives at a assisted. In the emergency room the patient was noted to have a d-dimer of 5.28 so she was also started on heparin drip, which is currently therapeutic. She was also noted to the septic with a lactic acid of 2.5. Urine drug screen was completed and was positive for tricyclic antidepressants and benzodiazepines. She she was admitted to the medical floor and was also given a dose of Ativan. The patient became somnolent with oxygen saturations 49%. Subsequently she was transferred to the ICU. The patient has since been on BiPAP and her oxygen saturations have improved. However throughout the night the patient was hypotensive but maintained her urine output therefore she was given IV boluses which was effective in bringing up her blood pressure. Patient is also on Solu-Medrol, antibiotics and IV Benadryl. Patient is also noted to be acidotic tenderness on IV fluids of D5W with 3 A of bicarb at 50ml/hr. Wound culture of the left axilla has been taken and is presumptive staph aureus. Upon examination the patient's resting in bed on BiPAP she continues to be somewhat somnolent however responds to voice commands slowly. BiPAP settings IPAP of 12 EPAP of 5 FiO2 35% oxygen saturations 98%. Patient also has a history of being mentally challenged and slurs her speech as a baseline due to a deficit of a previous CVA /TIA. 12/08/15- upon examination today the patient's resting up in bed on 3 L of supplemental oxygen. Patient is alert and oriented 1. Patient is less lethargic today than yesterday. Liver the patient still becomes short of breath with exertion or extensive conversation. States labs were reviewed and her white count is now to 10.9, sodium 140 potassium 3.3 chloride 111 carbon dioxide 22 BUN 45 creatinine 1.3. Patient should have a VQ scan once okayed by nephrology. 12/09/15- on examination today the patient is resting up in bed on 2 L of supplemental oxygen. The patient continues to be very sleepy and currently we are investigating her home medication and dosage of Seroquel that she receives at the assisted she attends. Excessive sleepiness could be due to this medication and we will hold at this time. Neuro is also on consults. Patient did have her CT a of the chest yesterday which showed no evidence of pulmonary embolism, interstitial pulmonary infiltrates with some atelectasis at the lung bases and small pleural effusions were noted. It is suggested on the impression this could be due to congestive heart failure. Cardiology is also on consult. Patient's heparin drip could be stopped due to no pulmonary embolism. Patient continues to be short of breath with exertion. hemodynamically she is much better. 12/09/16- the patient was downgraded yesterday from the ICU. Today she is seen on the selective care unit resting up in bed on 2-3 L of supplemental oxygen. She continues to be sleepy however less sleepy than yesterday. She does state she has intermittent shortness of breath with exertion. She denies any cough or congestion. Per the nursing staff the patient has been intermittently taking off her oxygen. The patient has been educated on the importance of keeping the oxygen on at this time. Her cellulitis is slowly improving. Mentation remains about the same. 12/10/16- on examination the patient is not orientated. The patient continuously mumbles and it is unclear whether she is trying to say. The patient's states this is not the patient's baseline. She is awake and can make eye contact, she listens when spoken to however she does not respond to commands. Apparently the patient did have oxygen saturations above 92% earlier this morning therefore she was switched to room air however on examination she is noted to have a decreased oxygen saturation in the 80s so supplemental oxygen is put back on the patient. The patient is known to continue to take her oxygen on and off intermittently. Education has been provided to the patient on importance of keeping her oxygen on at this time however is not clear if the patient is understanding due to her mentation. We will obtain stat ABGs as well as what neurology no about the patient's decline in mentation. 12/11/16-today and the patient is much more alert, continues with intermittent confusion. I am able to make out what he says speech is much more clear today however she still mumbles on occasion. More dynamically she is stable. Currently she is on 4 L of supplemental oxygen via nasal cannula. Oxygen saturations in the mid 90s. She does respond to commands today. She is keeping her oxygen on today as well. ABGs from yesterday were obtained and were normal. Patient is still being seen by nephrology. Labs and chest x-ray are reviewed. Chest x-ray shows left basilar infiltrate and small effusion with central interstitial pattern correlate for interstitial pneumonitis versus venous congestion. patient seen and evaluated examined today she is awake but intermittently confused as any [facility] symptoms however continued to require supplemental oxygen oxygen saturation has been stable limited data reviewed radiographic studies reviewed as well 12/13/16, patient seen and evaluated examined regularly she is doing better more awake and alert breathing comfortably cuff congestion shortness of breath has improved she remains on broad IV cefazolin ID service is following 12/14/16, patient is seen and examined today and is much more awake today. She continues to use supplemental oxygen. She continues to get short of breath with exertion. Patient does continue to complain of some oropharyngeal thrush. She is already on medications for this. CT of the left upper extremity is reviewed from yesterday which shows a limited study however there is a moderate- sized area of inflammatory phlegmon in the region of the left axilla extending along the left lateral chest wall, a drainable collection is not appreciated with absolute certainty. 12/15/16 patient is seen and examined today and appears much more comfortable though. She is currently on room air. She does have intermittent shortness of breath with exertion. Her oropharyngeal thrush has improved. Surgical will not go forth with training due to lack of CT showing an abscess that can be drained. Blood cultures were negative therefore she will not need outpatient IV therapy. Labs are reviewed. Patient's portable chest x-ray does show left lower lobe atelectasis and possible associated effusion follow-up chest x-ray 2 view is advised. 12/16/16-patient is seen and examined today on rounds. We did order a 2 view x- ray to be done this morning however it has not been completed at this time currently we are waiting for those results. Patient continues on room air, continues to have intermittent shortness of breath with exertion. According to the nurse that the patient is going to go for an I&D today with surgical services. Currently we are unaware of what time. Has been increasing drainage from the left axilla wound site. 12/17/16 upon examination today the patient's resting up in bed on room air. She states her breathing has improved. Patient did undergo an I&D with surgical services yesterday and a large abscess cavity was noted. The area was drained and currently has a dressing that is clean dry and intact. Patient states she is feeling significantly better. She has less pain to the abscess area. Cellulitis continues to improve. Patient has been afebrile. There has been mention of a possible wound VAC, although unclear if this will happen or not. 12/18/16 upon examination today the patient's resting up in bed on room air. Breathing is currently at her baseline. Patient did undergo an I&D was surgical services on the and a large abscess cavity was drained. Dressing clean dry and intact. Patient continues to follow with infectious disease. Patient continues to be afebrile. Patient is currently being worked up to possibly go to rehab upon discharge.. 12/19/16, patient seen and evaluated and examined on fifth floor no obvious respiratory distress presents her shortness of breath has been stab she is recovering from IND postoperative day #3 Objective - Vital Signs Vital signs: Vital Signs Temp 98.1 F 12/19/16 07:00 Pulse 62 12/19/16 08:00 Resp 16 12/19/16 08:00 BP 121/70 12/19/16 07:00 Pulse Ox 91 L 12/19/16 07:20 Intake & Output 12/18/16 12/19/16 12/19/16 18:59 06:59 18:59 Intake Total 100 180 Output Total 1200 200 Balance -1100 180 -200 Weight 122.9 kg Intake: IV 100 100 ceFAZolin 2 gm In Sodium 100 100 Chloride 0.9% 100 ml @ 100 mls/hr IVPB Q8HR [facility] Rx#:[id number] Oral 80 Output: Urine 1200 200 Other: Voiding Method Indwelling Catheter Indwelling Catheter Indwelling Catheter # Voids 0 0 - Exam GENERAL EXAM: Awake, intermittent confusion noted slightly restless, in no apparent distress. HEAD: Normocephalic. EYES: Normal reaction of pupils, equal size. Dry eyes NOSE: Clear with pink turbinates. THROAT: No erythema or exudates. NECK: No masses, no JVD. CHEST: No chest wall deformity. LUNGS: Equal air entry with no crackles, wheeze, rhonchi or dullness. Diminished CVS: S1 and S2 normal with no audible mumurs, regular rhythm. ABDOMEN: No hepatosplenomegaly, normal bowel sounds, no guarding or rigidity. EXTREMITIES: No edema noted, pedal pulses palpable. SKIN: Left axilla noted to have an definite indurated area of erythema the area , dressing noted to left axilla I&D site Cellulitis improving CENTRAL NERVOUS SYSTEM: No focal deficits, tone is normal in all 4 extremities. - Labs CBC & Chem 7: 12/15/16 08:07 12/19/16 06:40 Labs: Abnormal Lab Results - Last 24 Hours (Table) 12/18/16 12/18/16 12/19/16 Range/Units 16:51 20:12 06:40 Sodium 135 L (137-145) mmol/L BUN 21 H (7-17) mg/dL Glucose 100 H (74-99) mg/dL POC Glucose (mg/dL) 117 H 129 H (75-99) mg/dL Calcium 8.0 L (8.4-10.2) mg/dL 12/19/16 12/19/16 Range/Units 06:55 12:05 Sodium (137-145) mmol/L BUN (7-17) mg/dL Glucose (74-99) mg/dL POC Glucose (mg/dL) 118 H 104 H (75-99) mg/dL Calcium (8.4-10.2) mg/dL Microbiology - Last 24 Hours (Table) 12/16/16 21:23 Gram Stain - Final Axilla - Left Wound Culture - Final Staphylococcus aureus Assessment and Plan Plan: Assessment Anaphylaxis reaction related to bee sting Metabolic acidosis and elevated d-dimer due to severe sepsis, related to staph wound infection and acute renal failure Acute hypoxic respiratory failure, Hypotension Left abscess of the axilla, related to MSSA Cellulitis of the left axilla Schizoaffective disorder Anxiety Hypokalemic Morbid obesity Plan Patient could be discharged from a pulmonary standpoint. Discharge planning to a [facility] facility has been suggested. Medications have been reviewed and will be continued as ordered. Continue with antibiotics. Replace electrolytes and monitor per protocol. Cultures have come back as MSSA. Antibiotics had been adjusted by infectious disease. Continue with pulmonary hygiene, coughing and deep breathing exercises, and supportive care. Supplemental oxygen or BiPAP to maintain oxygen saturations of 92% or better. She will require a polysomnogram in the outpatient setting. Continue nebulizer treatments. GI and DVT prophylaxis. . We will continue to monitor labs/ results and adjust treatment as necessary. Further recommendations pending. Time with Patient: Less than 30
[2016-12-19] MEDS: LORATADINE 10 MG TAB PO SCH (13:43)
[2016-12-19] MEDS: CHOLECALCIFEROL 1,000 UNIT TAB PO SCH (13:45)
[2016-12-19] MEDS: VIT A,C & E-LUTEIN-MINERALS 1 EACH TAB PO SCH (13:45)
[2016-12-19 17:08] LABS: Glucose,Whole Blood 137 mg/dL (75-99)
[2016-12-19 20:39] LABS: Glucose,Whole Blood 129 mg/dL (75-99)
[2016-12-19] MEDS: ATORVASTATIN 10 MG TAB PO SCH (21:02)
[2016-12-20 07:09] LABS: Anion Gap 3 mmol/L; Blood Urea Nitrogen 20 mg/dL (7-17); Calcium 8.2 mg/dL (8.4-10.2); Carbon Dioxide 32 mmol/L (22-30); Chloride 101 mmol/L (98-107); Glucose 111 mg/dL (74-99); Non-African American GFR(MDRD) >60 (>60 ml/min/1.73 sqM); Potassium 4.1 mmol/L (3.5-5.1); Sodium 136 mmol/L (137-145)
[2016-12-20 07:09] LABS: Glucose,Whole Blood 123 mg/dL (75-99)
[2016-12-20] MEDS: BUDESONIDE 0.5 MG/2 ML NEBU INHALATION SCH ×2 (07:26→20:18)
[2016-12-20] MEDS: METOPROLOL TARTRATE 25 MG TAB PO SCH ×3 (09:29→23:17)
[2016-12-20] MEDS: LORATADINE 10 MG TAB PO SCH (09:29)
[2016-12-20] MEDS: methylPREDNISolone SOD SUCCI 40 MG/ML 1 ML VIAL IV SCH ×2 (09:29→20:10)
[2016-12-20] MEDS: CITALOPRAM HYDROBROMIDE 20 MG TAB PO SCH (09:29)
[2016-12-20] MEDS: ASPIRIN 81 MG CHEW PO SCH (09:29)
[2016-12-20] MEDS: GABAPENTIN 300 MG CAP PO SCH ×2 (09:29→20:09)
[2016-12-20] MEDS: SENNOSIDES 8.6 MG TAB PO SCH ×2 (09:29→20:09)
[2016-12-20] MEDS: FAMOTIDINE 20 MG TAB PO SCH ×2 (09:29→20:09)
[2016-12-20] MEDS: HEPARIN SODIUM,PORCINE 5,000 UNIT/ML 1 ML VIAL SQ SCH ×3 (09:30→23:19)
[2016-12-20] MEDS: INSULIN LISPRO (humaLOG) 300 UNIT/3 ML VIAL SQ SCH ×4 (09:43→23:15)
[2016-12-20] MEDS: ceFAZolin 2 GM in SODIUM CHLORIDE 0.9% 100 ML IVPB SCH ×3 (09:43→23:19)
[2016-12-20] MEDS: NYSTATIN 100,000 UNIT/ML SUSP 500,000 UNIT/5 ML CUP PO SCH ×4 (10:13→23:17)
--- NOTE | 2016-12-20 10:23 | P.PN ---
Subjective Principal diagnosis: 12/06/16- This is a 61-year-old female who came into emergency department with shortness of breath and generalized weakness that had been developing over the last 3-4 days. Apparently the patient was stung by a bee in her left axilla, the area became extremely itchy with a diffuse reddened rash. The patient states she also shaved her left axilla in the cellulitis developed. The patient became unresponsive and received an EpiPen injection as well as Benadryl with EMS. This patient lives at a skilled nursing. In the emergency room the patient was noted to have a d-dimer of 5.28 so she was also started on heparin drip, which is currently therapeutic. She was also noted to the septic with a lactic acid of 2.5. Urine drug screen was completed and was positive for tricyclic antidepressants and benzodiazepines. She she was admitted to the medical floor and was also given a dose of Ativan. The patient became somnolent with oxygen saturations 49%. Subsequently she was transferred to the ICU. The patient has since been on BiPAP and her oxygen saturations have improved. However throughout the night the patient was hypotensive but maintained her urine output therefore she was given IV boluses which was effective in bringing up her blood pressure. Patient is also on Solu-Medrol, antibiotics and IV Benadryl. Patient is also noted to be acidotic tenderness on IV fluids of D5W with 3 A of bicarb at 50ml/hr. Wound culture of the left axilla has been taken and is presumptive staph aureus. Upon examination the patient's resting in bed on BiPAP she continues to be somewhat somnolent however responds to voice commands slowly. BiPAP settings IPAP of 12 EPAP of 5 FiO2 35% oxygen saturations 98%. Patient also has a history of being mentally challenged and slurs her speech as a baseline due to a deficit of a previous CVA /TIA. 12/08/15- upon examination today the patient's resting up in bed on 3 L of supplemental oxygen. Patient is alert and oriented 1. Patient is less lethargic today than yesterday. Liver the patient still becomes short of breath with exertion or extensive conversation. States labs were reviewed and her white count is now to 10.9, sodium 140 potassium 3.3 chloride 111 carbon dioxide 22 BUN 45 creatinine 1.3. Patient should have a VQ scan once okayed by nephrology. 12/09/15- on examination today the patient is resting up in bed on 2 L of supplemental oxygen. The patient continues to be very sleepy and currently we are investigating her home medication and dosage of Seroquel that she receives at the skilled nursing she attends. Excessive sleepiness could be due to this medication and we will hold at this time. Neuro is also on consults. Patient did have her CT a of the chest yesterday which showed no evidence of pulmonary embolism, interstitial pulmonary infiltrates with some atelectasis at the lung bases and small pleural effusions were noted. It is suggested on the impression this could be due to congestive heart failure. Cardiology is also on consult. Patient's heparin drip could be stopped due to no pulmonary embolism. Patient continues to be short of breath with exertion. hemodynamically she is much better. 12/09/16- the patient was downgraded yesterday from the ICU. Today she is seen on the selective care unit resting up in bed on 2-3 L of supplemental oxygen. She continues to be sleepy however less sleepy than yesterday. She does state she has intermittent shortness of breath with exertion. She denies any cough or congestion. Per the nursing staff the patient has been intermittently taking off her oxygen. The patient has been educated on the importance of keeping the oxygen on at this time. Her cellulitis is slowly improving. Mentation remains about the same. 12/10/16- on examination the patient is not orientated. The patient continuously mumbles and it is unclear whether she is trying to say. The patient's states this is not the patient's baseline. She is awake and can make eye contact, she listens when spoken to however she does not respond to commands. Apparently the patient did have oxygen saturations above 92% earlier this morning therefore she was switched to room air however on examination she is noted to have a decreased oxygen saturation in the 80s so supplemental oxygen is put back on the patient. The patient is known to continue to take her oxygen on and off intermittently. Education has been provided to the patient on importance of keeping her oxygen on at this time however is not clear if the patient is understanding due to her mentation. We will obtain stat ABGs as well as what neurology no about the patient's decline in mentation. 12/11/16-today and the patient is much more alert, continues with intermittent confusion. I am able to make out what he says speech is much more clear today however she still mumbles on occasion. More dynamically she is stable. Currently she is on 4 L of supplemental oxygen via nasal cannula. Oxygen saturations in the mid 90s. She does respond to commands today. She is keeping her oxygen on today as well. ABGs from yesterday were obtained and were normal. Patient is still being seen by nephrology. Labs and chest x-ray are reviewed. Chest x-ray shows left basilar infiltrate and small effusion with central interstitial pattern correlate for interstitial pneumonitis versus venous congestion. patient seen and evaluated examined today she is awake but intermittently confused as any [facility] symptoms however continued to require supplemental oxygen oxygen saturation has been stable limited data reviewed radiographic studies reviewed as well 12/13/16, patient seen and evaluated examined regularly she is doing better more awake and alert breathing comfortably cuff congestion shortness of breath has improved she remains on broad IV cefazolin ID service is following 12/14/16, patient is seen and examined today and is much more awake today. She continues to use supplemental oxygen. She continues to get short of breath with exertion. Patient does continue to complain of some oropharyngeal thrush. She is already on medications for this. CT of the left upper extremity is reviewed from yesterday which shows a limited study however there is a moderate- sized area of inflammatory phlegmon in the region of the left axilla extending along the left lateral chest wall, a drainable collection is not appreciated with absolute certainty. 12/15/16 patient is seen and examined today and appears much more comfortable though. She is currently on room air. She does have intermittent shortness of breath with exertion. Her oropharyngeal thrush has improved. Surgical will not go forth with training due to lack of CT showing an abscess that can be drained. Blood cultures were negative therefore she will not need outpatient IV therapy. Labs are reviewed. Patient's portable chest x-ray does show left lower lobe atelectasis and possible associated effusion follow-up chest x-ray 2 view is advised. 12/16/16-patient is seen and examined today on rounds. We did order a 2 view x- ray to be done this morning however it has not been completed at this time currently we are waiting for those results. Patient continues on room air, continues to have intermittent shortness of breath with exertion. According to the nurse that the patient is going to go for an I&D today with surgical services. Currently we are unaware of what time. Has been increasing drainage from the left axilla wound site. 12/17/16 upon examination today the patient's resting up in bed on room air. She states her breathing has improved. Patient did undergo an I&D with surgical services yesterday and a large abscess cavity was noted. The area was drained and currently has a dressing that is clean dry and intact. Patient states she is feeling significantly better. She has less pain to the abscess area. Cellulitis continues to improve. Patient has been afebrile. There has been mention of a possible wound VAC, although unclear if this will happen or not. 12/18/16 upon examination today the patient's resting up in bed on room air. Breathing is currently at her baseline. Patient did undergo an I&D was surgical services on the and a large abscess cavity was drained. Dressing clean dry and intact. Patient continues to follow with infectious disease. Patient continues to be afebrile. Patient is currently being worked up to possibly go to rehab upon discharge.. 12/19/16, patient seen and evaluated and examined on fifth floor no obvious respiratory distress presents her shortness of breath has been stab she is recovering from IND postoperative day #3 12/06/16- This is a 61-year-old female who came into emergency department with shortness of breath and generalized weakness that had been developing over the last 3-4 days. Apparently the patient was stung by a bee in her left axilla, the area became extremely itchy with a diffuse reddened rash. The patient states she also shaved her left axilla in the cellulitis developed. The patient became unresponsive and received an EpiPen injection as well as Benadryl with EMS. This patient lives at a skilled nursing. In the emergency room the patient was noted to have a d-dimer of 5.28 so she was also started on heparin drip, which is currently therapeutic. She was also noted to the septic with a lactic acid of 2.5. Urine drug screen was completed and was positive for tricyclic antidepressants and benzodiazepines. She she was admitted to the medical floor and was also given a dose of Ativan. The patient became somnolent with oxygen saturations 49%. Subsequently she was transferred to the ICU. The patient has since been on BiPAP and her oxygen saturations have improved. However throughout the night the patient was hypotensive but maintained her urine output therefore she was given IV boluses which was effective in bringing up her blood pressure. Patient is also on Solu-Medrol, antibiotics and IV Benadryl. Patient is also noted to be acidotic tenderness on IV fluids of D5W with 3 A of bicarb at 50ml/hr. Wound culture of the left axilla has been taken and is presumptive staph aureus. Upon examination the patient's resting in bed on BiPAP she continues to be somewhat somnolent however responds to voice commands slowly. BiPAP settings IPAP of 12 EPAP of 5 FiO2 35% oxygen saturations 98%. Patient also has a history of being mentally challenged and slurs her speech as a baseline due to a deficit of a previous CVA /TIA. 12/08/15- upon examination today the patient's resting up in bed on 3 L of supplemental oxygen. Patient is alert and oriented 1. Patient is less lethargic today than yesterday. Liver the patient still becomes short of breath with exertion or extensive conversation. States labs were reviewed and her white count is now to 10.9, sodium 140 potassium 3.3 chloride 111 carbon dioxide 22 BUN 45 creatinine 1.3. Patient should have a VQ scan once okayed by nephrology. 12/09/15- on examination today the patient is resting up in bed on 2 L of supplemental oxygen. The patient continues to be very sleepy and currently we are investigating her home medication and dosage of Seroquel that she receives at the skilled nursing she attends. Excessive sleepiness could be due to this medication and we will hold at this time. Neuro is also on consults. Patient did have her CT a of the chest yesterday which showed no evidence of pulmonary embolism, interstitial pulmonary infiltrates with some atelectasis at the lung bases and small pleural effusions were noted. It is suggested on the impression this could be due to congestive heart failure. Cardiology is also on consult. Patient's heparin drip could be stopped due to no pulmonary embolism. Patient continues to be short of breath with exertion. hemodynamically she is much better. 12/09/16- the patient was downgraded yesterday from the ICU. Today she is seen on the selective care unit resting up in bed on 2-3 L of supplemental oxygen. She continues to be sleepy however less sleepy than yesterday. She does state she has intermittent shortness of breath with exertion. She denies any cough or congestion. Per the nursing staff the patient has been intermittently taking off her oxygen. The patient has been educated on the importance of keeping the oxygen on at this time. Her cellulitis is slowly improving. Mentation remains about the same. 12/10/16- on examination the patient is not orientated. The patient continuously mumbles and it is unclear whether she is trying to say. The patient's states this is not the patient's baseline. She is awake and can make eye contact, she listens when spoken to however she does not respond to commands. Apparently the patient did have oxygen saturations above 92% earlier this morning therefore she was switched to room air however on examination she is noted to have a decreased oxygen saturation in the 80s so supplemental oxygen is put back on the patient. The patient is known to continue to take her oxygen on and off intermittently. Education has been provided to the patient on importance of keeping her oxygen on at this time however is not clear if the patient is understanding due to her mentation. We will obtain stat ABGs as well as what neurology no about the patient's decline in mentation. 12/11/16-today and the patient is much more alert, continues with intermittent confusion. I am able to make out what he says speech is much more clear today however she still mumbles on occasion. More dynamically she is stable. Currently she is on 4 L of supplemental oxygen via nasal cannula. Oxygen saturations in the mid 90s. She does respond to commands today. She is keeping her oxygen on today as well. ABGs from yesterday were obtained and were normal. Patient is still being seen by nephrology. Labs and chest x-ray are reviewed. Chest x-ray shows left basilar infiltrate and small effusion with central interstitial pattern correlate for interstitial pneumonitis versus venous congestion. patient seen and evaluated examined today she is awake but intermittently confused as any [employer] symptoms however continued to require supplemental oxygen oxygen saturation has been stable limited data reviewed radiographic studies reviewed as well 12/13/16, patient seen and evaluated examined regularly she is doing better more awake and alert breathing comfortably cuff congestion shortness of breath has improved she remains on broad IV cefazolin ID service is following Patient seen and evaluated examined during the rounds overall doing well remains on broad-spectrum antibiotics, patient has been found to have his staff in the wound shows MSSA Objective - Vital Signs Vital signs: Vital Signs Temp 98 F 12/20/16 07:00 Pulse 62 12/20/16 07:00 Resp 16 12/20/16 07:00 BP 130/61 12/20/16 07:00 Pulse Ox 93 L 12/20/16 07:00 Intake & Output 12/19/16 12/20/16 12/20/16 18:59 06:59 18:59 Intake Total 120 340 Output Total 1600 3000 Balance -1480 -2660 Intake: IV 100 ceFAZolin 2 gm In Sodium 100 Chloride 0.9% 100 ml @ 100 mls/hr IVPB Q8HR AMADA Rx#:[id number] Oral 120 240 Output: Urine 1600 3000 Straight 1200 2800 Other: Voiding Method Indwelling Catheter Indwelling Catheter # Voids 2 # Bowel Movements 1 - Exam GENERAL EXAM: Awake, intermittent confusion noted slightly restless, in no apparent distress. HEAD: Normocephalic. EYES: Normal reaction of pupils, equal size. Dry eyes NOSE: Clear with pink turbinates. THROAT: No erythema or exudates. NECK: No masses, no JVD. CHEST: No chest wall deformity. LUNGS: Equal air entry with no crackles, wheeze, rhonchi or dullness. Diminished CVS: S1 and S2 normal with no audible mumurs, regular rhythm. ABDOMEN: No hepatosplenomegaly, normal bowel sounds, no guarding or rigidity. EXTREMITIES: No edema noted, pedal pulses palpable. SKIN: Left axilla noted to have an definite indurated area of erythema the area , dressing noted to left axilla I&D site Cellulitis improving CENTRAL NERVOUS SYSTEM: No focal deficits, tone is normal in all 4 extremities. - Labs CBC & Chem 7: 12/15/16 08:07 12/20/16 06:41 Labs: Abnormal Lab Results - Last 24 Hours (Table) 12/19/16 12/19/16 12/19/16 Range/Units 12:05 17:07 20:28 Sodium (137-145) mmol/L Carbon Dioxide (22-30) mmol/L BUN (7-17) mg/dL Glucose (74-99) mg/dL POC Glucose (mg/dL) 104 H 137 H 129 H (75-99) mg/dL Calcium (8.4-10.2) mg/dL 12/20/16 12/20/16 Range/Units 06:41 06:56 Sodium 136 L (137-145) mmol/L Carbon Dioxide 32 H (22-30) mmol/L BUN 20 H (7-17) mg/dL Glucose 111 H (74-99) mg/dL POC Glucose (mg/dL) 123 H (75-99) mg/dL Calcium 8.2 L (8.4-10.2) mg/dL Microbiology - Last 24 Hours (Table) 12/16/16 21:23 Gram Stain - Final Axilla - Left Wound Culture - Final Staphylococcus aureus Assessment and Plan Plan: Assessment Anaphylaxis reaction related to bee sting Metabolic acidosis and elevated d-dimer due to severe sepsis, related to staph wound infection and acute renal failure Acute hypoxic respiratory failure, Hypotension Left abscess of the axilla, related to MSSA Cellulitis of the left axilla Schizoaffective disorder Anxiety Hypokalemic Morbid obesity Plan Patient could be discharged from a pulmonary standpoint. Discharge planning to a fdc facility has been suggested. Medications have been reviewed and will be continued as ordered. Continue with antibiotics. Replace electrolytes and monitor per protocol. Cultures have come back as MSSA. Antibiotics had been adjusted by infectious disease. Continue with pulmonary hygiene, coughing and deep breathing exercises, and supportive care. Supplemental oxygen or BiPAP to maintain oxygen saturations of 92% or better. She will require a polysomnogram in the outpatient setting. Continue nebulizer treatments. GI and DVT prophylaxis. . We will continue to monitor labs/ results and adjust treatment as necessary. Further recommendations pending. Time with Patient: Less than 30
--- NOTE | 2016-12-20 12:03 | P.PN ---
Progress Note - Text The patient is having less pain. Nursing is doing wound care. Anticipate that a wound VAC will be placed tomorrow.
[2016-12-20 12:08] LABS: Glucose,Whole Blood 116 mg/dL (75-99)
--- NOTE | 2016-12-20 12:45 | P.PN ---
<Carlotta Ibarra - Last Filed: 12/20/16 12:44> Progress Note - Text DATE OF SERVICE: 12/19/2016 PRESENTING COMPLAINT: Left arm redness and swelling INTERVAL HISTORY: This is a 61-year-old patient who presented with multiple medical problems, hypotensive extensive rash, acutely decompensated, taken to the ICU, found to have an induration in the left axilla, received antibiotic therapy and subsequently improved. Patient developed hypoxia and was placed on a BiPAP, subsequently improved. Has had continuous discharge from this induration in the left axilla since day of admission, and was noted to have increasing drainage and on 12/17/2016 patient had I&D of a large abscess located the left axilla. 12/19/2016: Patient's awake, able to answer questions, appears relaxed, states she most of her breakfast, had a bowel movement this morning, ambulatory with some assistance. REVIEW OF SYSTEMS: Done for constitutional ,cardiovascular, GI, pulmonary with relevant findings as above. CURRENT MEDICATIONS Ancef, Pulmicort, Ventolin, Xanax, Benadryl, Neurontin. PHYSICAL EXAM VITAL SIGNS: Temperature 98.5, pulse 63, respirations 16, blood pressure 134/69, oxygen saturation 94% on room air. GENERAL APPEARANCE: Lying in bed, not in distress. EYES: Pupils equal. Conjunctiva normal. NECK: JVD not raised. Mass not palpable. RESPIRATORY: Respiratory effort normal. Lungs clear to auscultation. CARDIOVASCULAR: First and second sounds normal. Generalized edema. ABDOMEN: Soft. Liver and spleen not palpable. No tenderness. No mass palpable. PSYCHIATRY: Alert and oriented x3. Mood and affect normal. NEUROLOGICAL: Able to answer simple straightforward questions. Alert and oriented 2-3 INVESTIGATIONS: Sodium 135, potassium 4.1, BUN 21, creatinine 0.65. Accu-Cheks noted ASSESSMENT: -Acute ALLERGIC reaction could be from an insect bite exact cause unknown responded well to antibiotic therapy -Left axillary cellulitis status post incision and drainage of large abscess. -Acute exacerbation of intermittent asthma causing acute hypoxic respiratory failure -Coronary artery disease with nonobstructive 50% LAD lesion -GERD -Essential hypertension -Hyperlipidemia -Metabolic acidosis -Hyponatremia, hypovolemic slowly improving -Schizoaffective disorder, chronic -Anxiety disorder not otherwise specified -Peripheral neuropathy, cause unknown -Acute metabolic encephalopathy multifactorial, resolving -Acute renal failure, nonoliguric probably ATN due to hypotension, resolved -CODE STATUS full code PLAN: Possible wound VAC placement on Wednesday, continue antibiotic therapy, possible discharge to half-way at the first of the week. Plan of care discussed with the patient and she is in agreement. RN SURGICAL statement: Patient was seen and examined by nurse practitioner Carlotta Ibarra and all elements of the case discussed with attending Dr. Elizabeth <Marvin Elizabeth - Last Filed: 12/20/16 12:56> Progress Note - Text Attending note. Date of service-12/19/2016 This patient was seen and examined by me . I reviewed the note of my nurse practitioner, Ms. Ibarra. Discussed with her, additional findings as below. Patient laying in bed. Did tolerate her diet.. Dressing of the left axilla. On examination: Afebrile, lungs decreased breath sounds, dressing the left axilla Investigations: Cultures growing staph aureus/MSSA and Peptostreptococcus Assessment and plan: Left axilla abscess status post I&D growing MSSA and Peptostreptococcus. Hyponatremia which improved Metabolic alkalosis -Continue current medication treatment plan we'll switch patient's IV Solu- Medrol to prednisone. antibiotics to continue patient will need inpatient rehab wound care to continue
--- NOTE | 2016-12-20 12:51 | P.PN ---
Progress Note - Text DATE OF SERVICE: 12/20/2016 PRESENTING COMPLAINT: Left arm redness and swelling INTERVAL HISTORY: This is a 61-year-old patient who presented with multiple medical problems, hypotensive extensive rash, acutely decompensated, taken to the ICU, found to have an induration in the left axilla, received antibiotic therapy and subsequently improved. Patient developed hypoxia and was placed on a BiPAP, subsequently improved. Has had continuous discharge from this induration in the left axilla since day of admission, and was noted to have increasing drainage and on 12/17/2016 patient had I&D of a large abscess located the left axilla. 12/19/2016: Patient's awake, able to answer questions, appears relaxed, states she most of her breakfast, had a bowel movement this morning, ambulatory with some assistance. 12/20/2016: Patient is awake, able to answer questions appears relaxed, has a good appetite , had a bowel movement this morning, ambulates in around the room, complains of left arm and axilla pain. REVIEW OF SYSTEMS: Done for constitutional ,cardiovascular, GI, pulmonary with relevant findings as above. CURRENT MEDICATIONS Ancef, Pulmicort, Ventolin, Xanax, Benadryl, Neurontin. PHYSICAL EXAM VITAL SIGNS: Temperature 98.0, pulse 62, respiratory rate 16, blood pressure 130/61, oxygen saturation 93% on room air. GENERAL APPEARANCE: Lying in bed, not in distress. EYES: Pupils equal. Conjunctiva normal. NECK: JVD not raised. Mass not palpable. RESPIRATORY: Respiratory effort normal. Lungs clear to auscultation. CARDIOVASCULAR: First and second sounds normal. Generalized edema. ABDOMEN: Soft. Liver and spleen not palpable. No tenderness. No mass palpable. PSYCHIATRY: Alert and oriented x3. Mood and affect normal. NEUROLOGICAL: Able to answer simple straightforward questions. Alert and oriented 2-3 INVESTIGATIONS: Sodium 136, potassium 4.1, BUN 20, creatinine 0.67. Accu-Cheks noted Left axilla culture: Peptostreptococcus, Staphylococcus aureus ASSESSMENT: -Acute ALLERGIC reaction could be from an insect bite exact cause unknown responded well to antibiotic therapy -Left axillary cellulitis status post incision and drainage of large abscess, growing staph aureus/MSSA and Peptostreptococcus -Acute exacerbation of intermittent asthma causing acute hypoxic respiratory failure -Coronary artery disease with nonobstructive 50% LAD lesion -GERD -Essential hypertension -Hyperlipidemia -Metabolic alkalosis -Hyponatremia, hypovolemic, improving -Schizoaffective disorder, chronic -Anxiety disorder not otherwise specified -Peripheral neuropathy, cause unknown -Acute metabolic encephalopathy multifactorial, resolving -Acute renal failure, nonoliguric probably ATN due to hypotension, resolved -CODE STATUS full code PLAN: Wound VAC placement on Wednesday per surgery, continue antibiotic therapy, possible discharge to longterm at the first of the week. Plan of care discussed with the patient and she is in agreement. PROJECT MANAGEMENT statement: Patient was seen and examined by nurse practitioner Carlotta Ibarra and all elements of the case discussed with attending Dr. Elizabeth
[2016-12-20] MEDS: VIT A,C & E-LUTEIN-MINERALS 1 EACH TAB PO SCH (15:20)
[2016-12-20] MEDS: CYANOCOBALAMIN 500 MCG TAB PO SCH (15:20)
[2016-12-20] MEDS: CHOLECALCIFEROL 1,000 UNIT TAB PO SCH (15:20)
[2016-12-20] MEDS: HYDROmorphone 1 MG/ML 1 ML SYRINGE IVP PRN (15:35)
[2016-12-20 17:15] LABS: Glucose,Whole Blood 137 mg/dL (75-99)
[2016-12-20] MEDS: ATORVASTATIN 10 MG TAB PO SCH (20:09)
[2016-12-20 20:50] LABS: Glucose,Whole Blood 124 mg/dL (75-99)
[2016-12-21 06:23] LABS: Basophils % (A) 0 %; CH 32.4; CHCM 32.7; Eosinophils % (A) 0 %; HCT 31.9 % (34.0-46.0); HDW 2.13; HGB 10.5 gm/dL (11.4-16.0); Luc # (Auto) 0.06; Luc % (Auto) 1; Lymphocytes # (A) 0.5 k/uL (1.0-4.8); Lymphocytes % (A) 5 %; MCH 32.5 pg (25.0-35.0); MCHC 32.8 g/dL (31.0-37.0); MCV 99.2 fL (80.0-100.0); Mean Platelet Volume 7.4; Monocytes # (A) 0.2 k/uL (0-1.0); Monocytes % (A) 2 %; Neutrophils # (A) 8.6 k/uL (1.3-7.7); Neutrophils % (A) 92 %; RBC 3.21 m/uL (3.80-5.40); RDW 14.1 % (11.5-15.5); WBC 9.4 k/uL (3.8-10.6); WBC (Perox) 10.26
[2016-12-21 06:47] LABS: Anion Gap 3 mmol/L; Blood Urea Nitrogen 20 mg/dL (7-17); Calcium 8.3 mg/dL (8.4-10.2); Carbon Dioxide 32 mmol/L (22-30); Chloride 100 mmol/L (98-107); Glucose 102 mg/dL (74-99); Non-African American GFR(MDRD) >60 (>60 ml/min/1.73 sqM); Potassium 4.1 mmol/L (3.5-5.1); Sodium 135 mmol/L (137-145)
[2016-12-21] MEDS: BUDESONIDE 0.5 MG/2 ML NEBU INHALATION SCH (07:42)
[2016-12-21 07:43] LABS: Glucose,Whole Blood 97 mg/dL (75-99)
[2016-12-21] MEDS: INSULIN LISPRO (humaLOG) 300 UNIT/3 ML VIAL SQ SCH ×2 (07:46→13:10)
[2016-12-21] MEDS: ceFAZolin 2 GM in SODIUM CHLORIDE 0.9% 100 ML IVPB SCH (07:47)
[2016-12-21] MEDS: HYDROmorphone 1 MG/ML 1 ML SYRINGE IVP PRN ×3 (07:47→15:19)
[2016-12-21 07:53] VITALS: BP 125/68; PULSE 60; RESP 16; TEMP 98.2
[2016-12-21] MEDS: HEPARIN SODIUM,PORCINE 5,000 UNIT/ML 1 ML VIAL SQ SCH (08:04)
[2016-12-21] MEDS: NYSTATIN 100,000 UNIT/ML SUSP 500,000 UNIT/5 ML CUP PO SCH ×2 (08:04→13:23)
[2016-12-21] MEDS: methylPREDNISolone SOD SUCCI 40 MG/ML 1 ML VIAL IV SCH (08:04)
[2016-12-21] MEDS: VIT A,C & E-LUTEIN-MINERALS 1 EACH TAB PO SCH (08:04)
[2016-12-21] MEDS: METOPROLOL TARTRATE 25 MG TAB PO SCH (08:04)
[2016-12-21] MEDS: LORATADINE 10 MG TAB PO SCH (08:04)
[2016-12-21] MEDS: CHOLECALCIFEROL 1,000 UNIT TAB PO SCH (08:05)
[2016-12-21] MEDS: GABAPENTIN 300 MG CAP PO SCH (08:05)
[2016-12-21] MEDS: CITALOPRAM HYDROBROMIDE 20 MG TAB PO SCH (08:05)
[2016-12-21] MEDS: FAMOTIDINE 20 MG TAB PO SCH (08:05)
[2016-12-21] MEDS: ASPIRIN 81 MG CHEW PO SCH (08:05)
[2016-12-21] MEDS: SENNOSIDES 8.6 MG TAB PO SCH (08:05)
--- NOTE | 2016-12-21 11:21 | P.PN ---
Subjective 12/06/16- This is a 61-year-old female who came into emergency department with shortness of breath and generalized weakness that had been developing over the last 3-4 days. Apparently the patient was stung by a bee in her left axilla, the area became extremely itchy with a diffuse reddened rash. The patient states she also shaved her left axilla in the cellulitis developed. The patient became unresponsive and received an EpiPen injection as well as Benadryl with EMS. This patient lives at a intermediate. In the emergency room the patient was noted to have a d-dimer of 5.28 so she was also started on heparin drip, which is currently therapeutic. She was also noted to the septic with a lactic acid of 2.5. Urine drug screen was completed and was positive for tricyclic antidepressants and benzodiazepines. She she was admitted to the medical floor and was also given a dose of Ativan. The patient became somnolent with oxygen saturations 49%. Subsequently she was transferred to the ICU. The patient has since been on BiPAP and her oxygen saturations have improved. However throughout the night the patient was hypotensive but maintained her urine output therefore she was given IV boluses which was effective in bringing up her blood pressure. Patient is also on Solu-Medrol, antibiotics and IV Benadryl. Patient is also noted to be acidotic tenderness on IV fluids of D5W with 3 A of bicarb at 50ml/hr. Wound culture of the left axilla has been taken and is presumptive staph aureus. Upon examination the patient's resting in bed on BiPAP she continues to be somewhat somnolent however responds to voice commands slowly. BiPAP settings IPAP of 12 EPAP of 5 FiO2 35% oxygen saturations 98%. Patient also has a history of being mentally challenged and slurs her speech as a baseline due to a deficit of a previous CVA /TIA. 12/08/15- upon examination today the patient's resting up in bed on 3 L of supplemental oxygen. Patient is alert and oriented 1. Patient is less lethargic today than yesterday. Liver the patient still becomes short of breath with exertion or extensive conversation. States labs were reviewed and her white count is now to 10.9, sodium 140 potassium 3.3 chloride 111 carbon dioxide 22 BUN 45 creatinine 1.3. Patient should have a VQ scan once okayed by nephrology. 12/09/15- on examination today the patient is resting up in bed on 2 L of supplemental oxygen. The patient continues to be very sleepy and currently we are investigating her home medication and dosage of Seroquel that she receives at the intermediate she attends. Excessive sleepiness could be due to this medication and we will hold at this time. Neuro is also on consults. Patient did have her CT a of the chest yesterday which showed no evidence of pulmonary embolism, interstitial pulmonary infiltrates with some atelectasis at the lung bases and small pleural effusions were noted. It is suggested on the impression this could be due to congestive heart failure. Cardiology is also on consult. Patient's heparin drip could be stopped due to no pulmonary embolism. Patient continues to be short of breath with exertion. hemodynamically she is much better. 12/09/16- the patient was downgraded yesterday from the ICU. Today she is seen on the selective care unit resting up in bed on 2-3 L of supplemental oxygen. She continues to be sleepy however less sleepy than yesterday. She does state she has intermittent shortness of breath with exertion. She denies any cough or congestion. Per the nursing staff the patient has been intermittently taking off her oxygen. The patient has been educated on the importance of keeping the oxygen on at this time. Her cellulitis is slowly improving. Mentation remains about the same. 12/10/16- on examination the patient is not orientated. The patient continuously mumbles and it is unclear whether she is trying to say. The patient's states this is not the patient's baseline. She is awake and can make eye contact, she listens when spoken to however she does not respond to commands. Apparently the patient did have oxygen saturations above 92% earlier this morning therefore she was switched to room air however on examination she is noted to have a decreased oxygen saturation in the 80s so supplemental oxygen is put back on the patient. The patient is known to continue to take her oxygen on and off intermittently. Education has been provided to the patient on importance of keeping her oxygen on at this time however is not clear if the patient is understanding due to her mentation. We will obtain stat ABGs as well as what neurology no about the patient's decline in mentation. 12/11/16-today and the patient is much more alert, continues with intermittent confusion. I am able to make out what he says speech is much more clear today however she still mumbles on occasion. More dynamically she is stable. Currently she is on 4 L of supplemental oxygen via nasal cannula. Oxygen saturations in the mid 90s. She does respond to commands today. She is keeping her oxygen on today as well. ABGs from yesterday were obtained and were normal. Patient is still being seen by nephrology. Labs and chest x-ray are reviewed. Chest x-ray shows left basilar infiltrate and small effusion with central interstitial pattern correlate for interstitial pneumonitis versus venous congestion. patient seen and evaluated examined today she is awake but intermittently confused as any [facility] symptoms however continued to require supplemental oxygen oxygen saturation has been stable limited data reviewed radiographic studies reviewed as well 12/13/16, patient seen and evaluated examined regularly she is doing better more awake and alert breathing comfortably cuff congestion shortness of breath has improved she remains on broad IV cefazolin ID service is following 12/14/16, patient is seen and examined today and is much more awake today. She continues to use supplemental oxygen. She continues to get short of breath with exertion. Patient does continue to complain of some oropharyngeal thrush. She is already on medications for this. CT of the left upper extremity is reviewed from yesterday which shows a limited study however there is a moderate- sized area of inflammatory phlegmon in the region of the left axilla extending along the left lateral chest wall, a drainable collection is not appreciated with absolute certainty. 12/15/16 patient is seen and examined today and appears much more comfortable though. She is currently on room air. She does have intermittent shortness of breath with exertion. Her oropharyngeal thrush has improved. Surgical will not go forth with training due to lack of CT showing an abscess that can be drained. Blood cultures were negative therefore she will not need outpatient IV therapy. Labs are reviewed. Patient's portable chest x-ray does show left lower lobe atelectasis and possible associated effusion follow-up chest x-ray 2 view is advised. 12/16/16-patient is seen and examined today on rounds. We did order a 2 view x- ray to be done this morning however it has not been completed at this time currently we are waiting for those results. Patient continues on room air, continues to have intermittent shortness of breath with exertion. According to the nurse that the patient is going to go for an I&D today with surgical services. Currently we are unaware of what time. Has been increasing drainage from the left axilla wound site. 12/17/16 upon examination today the patient's resting up in bed on room air. She states her breathing has improved. Patient did undergo an I&D with surgical services yesterday and a large abscess cavity was noted. The area was drained and currently has a dressing that is clean dry and intact. Patient states she is feeling significantly better. She has less pain to the abscess area. Cellulitis continues to improve. Patient has been afebrile. There has been mention of a possible wound VAC, although unclear if this will happen or not. 12/18/16 upon examination today the patient's resting up in bed on room air. Breathing is currently at her baseline. Patient did undergo an I&D was surgical services on the and a large abscess cavity was drained. Dressing clean dry and intact. Patient continues to follow with infectious disease. Patient continues to be afebrile. Patient is currently being worked up to possibly go to rehab upon discharge. 12/19/16, patient seen and evaluated and examined on fifth floor no obvious respiratory distress presents her shortness of breath has been stab she is recovering from IND postoperative day #3 . 12/20/16 Patient seen and evaluated examined during the rounds overall doing well remains on broad-spectrum antibiotics, patient has been found to have his staff in the wound shows MSSA 12/21/16 patient has been seen and examined and evaluated today during rounds. The patient is resting up in bed on room air. Patient states she no longer feels short of breath. Denies any cough or congestion. Patient is supposed to have a wound VAC placement today. She has a potential discharge later today after wound VAC or tomorrow. No overnight events. Afebrile. Patient will be going to a rehab facility upon discharge. Objective - Vital Signs Vital signs: Vital Signs Temp 98.2 F 12/21/16 07:00 Pulse 60 12/21/16 08:00 Resp 16 12/21/16 08:00 BP 125/68 12/21/16 07:00 Pulse Ox 94 L 12/21/16 07:00 Intake & Output 12/20/16 12/21/16 12/21/16 18:59 06:59 18:59 Intake Total 200 130 Output Total 575 1100 Balance -375 -970 Weight 122.9 kg Intake: IV 100 ceFAZolin 2 gm In Sodium 100 Chloride 0.9% 100 ml @ 100 mls/hr IVPB Q8HR [facility] Rx#:[id number] Oral 200 30 Output: Urine 575 1100 Straight 575 1100 Other: Voiding Method Indwelling Catheter Indwelling Catheter Indwelling Catheter # Voids 2 # Bowel Movements 1 - Exam GENERAL EXAM: Awake, intermittent confusion noted however improved, in no apparent distress. HEAD: Normocephalic. EYES: Normal reaction of pupils, equal size. Dry eyes NOSE: Clear with pink turbinates. THROAT: No erythema or exudates. NECK: No masses, no JVD. CHEST: No chest wall deformity. LUNGS: Equal air entry with no crackles, wheeze, rhonchi or dullness. Diminished CVS: S1 and S2 normal with no audible mumurs, regular rhythm. ABDOMEN: No hepatosplenomegaly, normal bowel sounds, no guarding or rigidity. EXTREMITIES: No edema noted, pedal pulses palpable. SKIN: Left axilla noted to have an definite indurated area of erythema the area , dressing noted to left axilla I&D site Cellulitis improving CENTRAL NERVOUS SYSTEM: No focal deficits, tone is normal in all 4 extremities. - Labs CBC & Chem 7: 12/21/16 06:10 12/21/16 06:10 Labs: Abnormal Lab Results - Last 24 Hours (Table) 12/20/16 12/20/16 12/20/16 Range/Units 12:06 17:13 20:47 RBC (3.80-5.40) m/uL Hgb (11.4-16.0) gm/dL Hct (34.0-46.0) % Neutrophils # (1.3-7.7) k/uL Lymphocytes # (1.0-4.8) k/uL Sodium (137-145) mmol/L Carbon Dioxide (22-30) mmol/L BUN (7-17) mg/dL Glucose (74-99) mg/dL POC Glucose (mg/dL) 116 H 137 H 124 H (75-99) mg/dL Calcium (8.4-10.2) mg/dL 12/21/16 12/21/16 Range/Units 06:10 06:10 RBC 3.21 L (3.80-5.40) m/uL Hgb 10.5 L (11.4-16.0) gm/dL Hct 31.9 L (34.0-46.0) % Neutrophils # 8.6 H (1.3-7.7) k/uL Lymphocytes # 0.5 L (1.0-4.8) k/uL Sodium 135 L (137-145) mmol/L Carbon Dioxide 32 H (22-30) mmol/L BUN 20 H (7-17) mg/dL Glucose 102 H (74-99) mg/dL POC Glucose (mg/dL) (75-99) mg/dL Calcium 8.3 L (8.4-10.2) mg/dL Microbiology - Last 24 Hours (Table) 12/16/16 21:23 Anaerobic Culture - Preliminary Axilla - Left Peptostreptococcus species Assessment and Plan Plan: Assessment Anaphylaxis reaction related to bee sting Metabolic acidosis and elevated d-dimer due to severe sepsis, related to staph wound infection and acute renal failure Acute hypoxic respiratory failure, Hypotension Left abscess of the axilla Cellulitis of the left axilla Schizoaffective disorder Anxiety Hypokalemic Morbid obesity Plan Patient could be discharged from a pulmonary standpoint. Discharge planning to a detention facility has been suggested. She is to have wound VAC placement today. All labs have been reviewed. Medications have been reviewed and will be continued as ordered. Continue with antibiotics. Replace electrolytes and monitor per protocol. Cultures have come back as MSSA. Antibiotics had been adjusted by infectious disease. Continue with pulmonary hygiene, coughing and deep breathing exercises, and supportive care. Supplemental oxygen or BiPAP to maintain oxygen saturations of 92% or better. She will require a polysomnogram in the outpatient setting. Continue nebulizer treatments. GI and DVT prophylaxis. . We will continue to monitor labs/ results and adjust treatment as necessary. Further recommendations pending. I performed an examination of the patient and discussed their management with the nurse practitioner. I have reviewed the nurse practitioner's note and agree with the documented findings and plan of care.
--- NOTE | 2016-12-21 11:26 | PN ---
DATE OF SERVICE: 12/20/2016 ATTENDING NOTE: This patient was seen and examined by me earlier today. I discussed this with my nurse practitioner Ms. Ibarra and reviewed her note. This patient with multiple problems including left axillary abscess, status post I&D. She is tolerating ( ). Has been out of bed with some assistance. ON EXAMINATION: Afebrile. Tenderness in the left axilla. LUNGS: Decreased breath sounds. ASSESSMENT: 1. Left axillary abscess growing MSSA and Peptostreptococcus. 2. Multiple medical other problems. 3. Hyponatremia, which improved. PLAN: Wound VAC will be placed. Looking at discharge planning to ECF. MTDD
[2016-12-21 12:14] LABS: Glucose,Whole Blood 150 mg/dL (75-99)
[2016-12-21] MEDS ORDERED: FUROSEMIDE 10 MG/ML 2 ML VIAL IV STA (13:08)
--- NOTE | 2016-12-21 14:28 | P.DS ---
Providers Date of admission: 12/04/16 21:54 Expected date of discharge: 12/21/16 Attending physician: Marvin Elizabeth Consults: 12/04/16 22:34 Consult Physician Urgent Consulting Provider: Simeon Mora Consult Reason/Comments: dypsnea, elevated d-dimer, r/o PE Do you want consulting provider notified?: Yes 12/05/16 12:05 Consult Physician Routine Consulting Provider: Medhat Mantilla Consult Reason/Comments: elevated creatnine Do you want consulting provider notified?: Yes 12/05/16 12:36 Consult Physician Routine Consulting Provider: Juan Juarez Consult Reason/Comments: elevated d dimer Do you want consulting provider notified?: Yes 12/05/16 12:38 Consult Physician Routine Consulting Provider: Matthew Elmore Consult Reason/Comments: cellulitis Do you want consulting provider notified?: Yes 12/06/16 01:01 Consult Physician Stat Consulting Provider: Shirley Del Angel Consult Reason/Comments: hx of cva/TIA, lethargy Do you want consulting provider notified?: Yes, Notify in am 12/13/16 10:59 Consult Physician Routine Consulting Provider: Darian Alvarez Consult Reason/Comments: left axilla abcess Do you want consulting provider notified?: Yes Primary care physician: Loki Gomes Hospital Course: Hospital course: This is a patient with multiple medical problems, admitted with what was felt to be insect bite and a rash. Patient found to have a large axilla abscess IND was carried out. Cultures positive for Peptostreptococcus and MSSA. Antibiotics will coordinate with Dr. Elmore of infectious disease. Patient initially was in the ICU. Walking with some assistance. Tolerating a diet. I DC trial of Mackenzie catheter will be done tomorrow morning. Patient will have a wound VAC in place. I discussed and Dr. Elmore today. Discharge planning more than 35 minutes Discharge diagnoses: -Acute ALLERGIC reaction could be from an insect bite exact cause unknown responded well to antibiotic therapy -Left axillary cellulitis status post incision and drainage of large abscess, growing staph aureus/MSSA and Peptostreptococcus -Acute exacerbation of intermittent asthma causing acute hypoxic respiratory failure -Coronary artery disease with nonobstructive 50% LAD lesion -GERD -Essential hypertension -Hyperlipidemia -Metabolic alkalosis -Hyponatremia, hypovolemic, improving -Schizoaffective disorder, chronic -Anxiety disorder not otherwise specified -Peripheral neuropathy, cause unknown -Acute metabolic encephalopathy multifactorial, resolving -Acute renal failure, nonoliguric probably ATN due to hypotension, resolved -CODE STATUS full code [facility]position: [facility] Patient Condition at Discharge: Fair Plan - Discharge Summary New Discharge Prescriptions: New Nystatin 100,000 Unit/ml Susp [Mycostatin Oral Susp] 500,000 unit PO QID dose predniSONE 20 mg PO DAILY #5 tab Albuterol Nebulized [Ventolin Nebulized] 2.5 mg INHALATION RT-QID PRN neb PRN Reason: Shortness Of Breath Or Wheezing Ancef 1 gm IVPB Q8HR #45 Budesonide [Pulmicort] 0.5 mg INHALATION RT-BID neb Metoprolol Tartrate [Lopressor] 25 mg PO TID tab Furosemide [Lasix] 20 mg PO DAILY #1 tab Continue Omeprazole [PriLOSEC] 40 mg PO AC-BRKFST Cyanocobalamin [Vitamin B-12] 1,000 mcg PO Q48H Cholecalciferol [Vitamin D3] 2,000 unit PO DAILY Citalopram Hydrobromide [Citalopram HBr] 40 mg PO DAILY Gabapentin [Neurontin] 300 mg PO BID Loratadine [Claritin] 10 mg PO DAILY Sennosides [Senna] 8.6 mg PO BID Nitroglycerin Sl Tabs [Nitrostat] 0.4 mg SUBLINGUAL Q5M PRN PRN Reason: Chest Pain Vit A/Vit C/Vit E/Zinc/Copper [ICAPS SOFTGEL] 1 cap PO DAILY QUEtiapine [SEROquel] 400 mg PO HS Calcium Carbonate [Tums] 500 mg PO TID PRN PRN Reason: Indigestion Simvastatin [Zocor] 20 mg PO HS Aspirin EC [Ecotrin Low Dose] 81 mg PO DAILY Discontinued LORazepam [Ativan] 1 mg PO BID Atenolol [Tenormin] 25 mg PO DAILY QUEtiapine FUMARATE [Seroquel Xr] 400 mg PO DAILY@1600 Ibuprofen [Motrin] 600 mg PO Q6H PRN PRN Reason: Pain Discharge Medication List Cholecalciferol [Vitamin D3] 2,000 unit PO DAILY 08/06/14 [History] Citalopram Hydrobromide [Citalopram HBr] 40 mg PO DAILY 08/06/14 [History] Cyanocobalamin [Vitamin B-12] 1,000 mcg PO Q48H 08/06/14 [History] Omeprazole [PriLOSEC] 40 mg PO AC-BRKFST 08/06/14 [History] Gabapentin [Neurontin] 300 mg PO BID 07/21/16 [History] Loratadine [Claritin] 10 mg PO DAILY 07/21/16 [History] Sennosides [Senna] 8.6 mg PO BID 07/21/16 [History] Nitroglycerin Sl Tabs [Nitrostat] 0.4 mg SUBLINGUAL Q5M PRN 07/22/16 [History] Vit A/Vit C/Vit E/Zinc/Copper [ICAPS SOFTGEL] 1 cap PO DAILY 07/22/16 [History] Aspirin EC [Ecotrin Low Dose] 81 mg PO DAILY 07/27/16 [History] Calcium Carbonate [Tums] 500 mg PO TID PRN 07/27/16 [History] QUEtiapine [SEROquel] 400 mg PO HS 07/27/16 [History] Simvastatin [Zocor] 20 mg PO HS 07/27/16 [History] Nystatin 100,000 Unit/ml Susp [Mycostatin Oral Susp] 500,000 unit PO QID dose 12/18/16 [Rx] predniSONE 20 mg PO DAILY #5 tab 12/18/16 [Rx] Albuterol Nebulized [Ventolin Nebulized] 2.5 mg INHALATION RT-QID PRN neb 12/21 [Rx] Ancef 1 gm IVPB Q8HR #45 12/21/16 [Rx] Budesonide [Pulmicort] 0.5 mg INHALATION RT-BID neb 12/21/16 [Rx] Furosemide [Lasix] 20 mg PO DAILY #1 tab 12/21/16 [Rx] Metoprolol Tartrate [Lopressor] 25 mg PO TID tab 12/21/16 [Rx] Follow up Appointment(s)/Referral(s): Thomas Chew MD [STAFF PHYSICIAN] - 12/22/16 Simeon Mora MD [STAFF PHYSICIAN] - 1 Week Darian Alvarez MD [STAFF PHYSICIAN] - 1 Week Ambulatory/Diagnostic Orders: Basic Metabolic Panel [LAB.AMB] Location: Determined By Patient Complete Blood Count w/diff [LAB.AMB] Location: Determined By Patient Activity/Diet/Wound Care/Special Instructions: use white foam with wound vac per Dr. Poole left axillary wound wound length =6cm,width=2cm,depth = 2.8cm tunneling [id number] =5.2cm tunneling at 3 oclock=0 tunneling at 6 oclock=5cm tunneling at 9oclock=4cm radha mackenzie trial at [facility] in am Discharge Disposition: TRANSFER TO SNF/ECF
[2016-12-21] MEDS: ALPRAZolam 0.5 MG TAB PO PRN (15:33)
--- NOTE | 2016-12-21 19:03 | P.PN ---
Subjective Principal diagnosis: Generalized weakness 61-year-old female is underlying history of schizophrenia and is cared for in a assisted environment has been ill for approximately 3 days. It is noted by the current available evidence. She does have a caregiver that help with the information admission. She is having difficulties with her left axillary area with some drainage. Then it was noted that she suffered what was thought to be a bee sting on to the left arm area. Developed extensive rash and hives and some shortness of breath. She was treated with Benadryl as well as epinephrine and Solu-Medrol. She is brought to the intensive care unit. She ' was hypotensive and was having difficulty with her speech. Speech however is at its baseline abnormal. She recovered from the hives. The patient does respond to simple questions. Seems to be more comfortable today. Denied new symptoms. Doing Less confused able to answer that she is in the hospital. She's in the [facility]. improved mental status. Computed tomography scan has been performed revealing evidence of some phlegmon the left axillary area He has noted a case was discussed with the hospitalist and the surgeon. She's now had incision and drainage in the very large abscess cavity was found. It is packed with large amount of gauze. She is comfortable denies increased new discomforts Objective - Vital Signs Vital signs: Vital Signs Temp 98.2 F 12/21/16 07:00 Pulse 60 12/21/16 08:00 Resp 16 12/21/16 08:00 BP 125/68 12/21/16 07:00 Pulse Ox 94 L 12/21/16 07:00 Intake & Output 12/20/16 12/21/16 12/21/16 18:59 06:59 18:59 Intake Total 200 130 510 Output Total 575 1100 1300 Balance -375 -970 -790 Weight 122.9 kg Intake: IV 100 ceFAZolin 2 gm In Sodium 100 Chloride 0.9% 100 ml @ 100 mls/hr IVPB Q8HR [facility] Rx#:[id number] Oral 200 30 510 Output: Urine 575 1100 1300 Straight 575 1100 500 Other: Voiding Method Indwelling Catheter Indwelling Catheter Indwelling Catheter # Voids 2 # Bowel Movements 1 - Exam 61-year-old woman who appears older than her stated age. Occasionally open eyes to the exam. Occasional responses are noted. HEENT: Anicteric conjunctiva are pink and moist nasal mucosa grossly intact without significant lesions, there is no thrush. Oral mucosa is dry Neck: The neck is supple without significant lymphadenopathy or thyromegaly. Lungs: Good bilateral air entry without significant crackles or wheezing. There is no significant bronchial sounds. There is no egophony or dullness. Heart: Regular rate and rhythm with an audible S1-S2, no S3 no S4. There is no significant murmur click or rub, PMI was nondisplaced. Abdomen: Positive bowel sounds soft and nontender without palpable masses or organomegaly. There was no guarding or rebound. Extremities: The upper extremities have excellent pulses they are symmetric, no significant petechiae or telangiectasia. No splinter hemorrhages were noted. The surgical incision is noted. The large copious amounts of purulent material is no longer draining and the opened area. Large amount of gauze has been packed into the open ulceration. The surrounding erythema and tenderness have improved. The lower extremities are free from significant lesions the peripheral pulses were 2+ and symmetric. Neuro: Arousable mproved mental status answering simple questions - Labs CBC & Chem 7: 12/21/16 06:10 12/21/16 06:10 Labs: Abnormal Lab Results - Last 24 Hours (Table) 12/20/16 12/21/16 12/21/16 Range/Units 20:47 06:10 06:10 RBC 3.21 L (3.80-5.40) m/uL Hgb 10.5 L (11.4-16.0) gm/dL Hct 31.9 L (34.0-46.0) % Neutrophils # 8.6 H (1.3-7.7) k/uL Lymphocytes # 0.5 L (1.0-4.8) k/uL Sodium 135 L (137-145) mmol/L Carbon Dioxide 32 H (22-30) mmol/L BUN 20 H (7-17) mg/dL Glucose 102 H (74-99) mg/dL POC Glucose (mg/dL) 124 H (75-99) mg/dL Calcium 8.3 L (8.4-10.2) mg/dL 12/21/16 Range/Units 12:04 RBC (3.80-5.40) m/uL Hgb (11.4-16.0) gm/dL Hct (34.0-46.0) % Neutrophils # (1.3-7.7) k/uL Lymphocytes # (1.0-4.8) k/uL Sodium (137-145) mmol/L Carbon Dioxide (22-30) mmol/L BUN (7-17) mg/dL Glucose (74-99) mg/dL POC Glucose (mg/dL) 150 H (75-99) mg/dL Calcium (8.4-10.2) mg/dL Laboratory Results WBC 9.4 k/uL (3.8-10.6) 12/21/16 06:10 RBC 3.21 m/uL (3.80-5.40) L 12/21/16 06:10 Hgb 10.5 gm/dL (11.4-16.0) L 12/21/16 06:10 Hct 31.9 % (34.0-46.0) L 12/21/16 06:10 MCV 99.2 fL (80.0-100.0) 12/21/16 06:10 MCH 32.5 pg (25.0-35.0) 12/21/16 06:10 MCHC 32.8 g/dL (31.0-37.0) 12/21/16 06:10 RDW 14.1 % (11.5-15.5) 12/21/16 06:10 Plt Count 316 k/uL (150-450) 12/21/16 06:10 Neutrophils % 92 % 12/21/16 06:10 Neutrophils % (Manual) 78.0 % 12/07/16 06:43 Band Neutrophils % 16.5 % 12/07/16 06:43 Lymphocytes % 5 % 12/21/16 06:10 Lymphocytes % (Manual) 4.0 % 12/07/16 06:43 Monocytes % 2 % 12/21/16 06:10 Monocytes % (Manual) 1.0 % 12/07/16 06:43 Eosinophils % 0 % 12/21/16 06:10 Eosinophils % (Manual) 0.5 % 12/06/16 04:25 Basophils % 0 % 12/21/16 06:10 Metamyelocytes % 1.0 % 12/06/16 04:25 Myelocytes % 0.5 % 12/07/16 06:43 Neutrophils # 8.6 k/uL (1.3-7.7) H 12/21/16 06:10 Neutrophils # (Manual) 10.3 k/uL (1.3-7.7) H 12/07/16 06:43 Lymphocytes # 0.5 k/uL (1.0-4.8) L 12/21/16 06:10 Lymphocytes # (Manual) 0.4 k/uL (1.0-4.8) L 12/07/16 06:43 Monocytes # 0.2 k/uL (0-1.0) 12/21/16 06:10 Monocytes # (Manual) 0.1 k/uL (0-1.0) 12/07/16 06:43 Eosinophils # 0.0 k/uL (0-0.7) 12/21/16 06:10 Eosinophils # (Manual) 0.0 k/uL (0-0.7) 12/06/16 04:25 Basophils # 0.0 k/uL (0-0.2) 12/21/16 06:10 Nucleated RBCs 0 /100 WBC (0-0) 12/07/16 06:43 Manual Slide Review Performed 12/08/16 05:52 Toxic Vacuolation Present 12/06/16 04:25 Polychromasia Present 12/06/16 04:25 Hypochromasia Slight 12/12/16 07:00 Poikilocytosis (manual Present 12/08/16 05:52 Anisocytosis (manual) Present 12/06/16 04:25 Macrocytosis Slight 12/15/16 08:07 Crenated Cell Present 12/06/16 04:25 ESR 110 mm/hr (0-20) H 12/06/16 14:55 PT 10.6 sec (9.0-12.0) 12/04/16 19:36 INR 1.0 (<1.2) 12/04/16 19:36 APTT 34.1 sec (22.0-30.0) H 12/08/16 05:52 D-Dimer 5.28 mg/L FEU (<0.60) H 12/04/16 19:36 Sample Site rbrac 12/10/16 11:45 ABG pH 7.49 (7.35-7.45) H 12/10/16 11:45 ABG pCO2 29 mmHg (35-45) L 12/10/16 11:45 ABG pO2 83 mmHg (83-108) 12/10/16 11:45 ABG HCO3 22 mmol/L (21-25) 12/10/16 11:45 ABG Total CO2 22 mmol/L (19-24) 12/10/16 11:45 ABG O2 Saturation 97.0 % (94-97) 12/10/16 11:45 ABG Base Excess -1.5 mmol/L 12/10/16 11:45 ABG Hematocrit 34 % (34.0-46.0) 12/05/16 11:45 FiO2 32 % 12/10/16 11:45 Sodium 135 mmol/L (137-145) L 12/21/16 06:10 Potassium 4.1 mmol/L (3.5-5.1) 12/21/16 06:10 Chloride 100 mmol/L (98-107) 12/21/16 06:10 Carbon Dioxide 32 mmol/L (22-30) H 12/21/16 06:10 Anion Gap 3 mmol/L 12/21/16 06:10 BUN 20 mg/dL (7-17) H 12/21/16 06:10 Creatinine 0.63 mg/dL (0.52-1.04) 12/21/16 06:10 Est GFR (MDRD) Af Amer >60 (>60 ml/min/1.73 sqM) 12/21/16 06:10 Est GFR (MDRD) Non-Af >60 (>60 ml/min/1.73 sqM) 12/21/16 06:10 Glucose 102 mg/dL (74-99) H 12/21/16 06:10 POC Glucose (mg/dL) 150 mg/dL (75-99) H 12/21/16 12:04 POC Glu [employer] ID Lisette Newsome 12/21/16 12:[address] Glu mg/dL 128 mg/dL 12/05/16 04:12 Hemoglobin A1c 6.1 % (4.2-6.1) 12/05/16 04:12 Lactic Ac Sepsis Rflx Y 12/04/16 20:23 Plasma Lactic Acid Britton 2.0 mmol/L (0.7-2.0) 12/05/16 00:02 Calcium 8.3 mg/dL (8.4-10.2) L 12/21/16 06:10 Phosphorus 3.0 mg/dL (2.5-4.5) 12/07/16 06:43 Magnesium 2.3 mg/dL (1.6-2.3) 12/08/16 05:52 Total Bilirubin 0.5 mg/dL (0.2-1.3) 12/15/16 08:07 AST 25 U/L (14-36) 12/15/16 08:07 ALT 23 U/L (9-52) 12/15/16 08:07 Alkaline Phosphatase 69 U/L (38-126) 12/15/16 08:07 Total Creatine Kinase 504 U/L (30-135) H 12/05/16 07:24 CK-MB (CK-2) 7.8 ng/mL (0.0-2.4) H* 12/05/16 07:24 CK-MB (CK-2) Rel Index 1.5 12/05/16 07:24 Troponin I <0.012 ng/mL (0.000-0.034) 12/05/16 07:24 C-Reactive Protein 401.6 mg/L (<10.0) H 12/06/16 14:55 NT-Pro-B Natriuret Pep 8270 pg/mL 12/04/16 19:36 Total Protein 4.8 g/dL (6.3-8.2) L 12/15/16 08:07 Albumin 2.2 g/dL (3.5-5.0) L 12/15/16 08:07 Vitamin B12 >1000 pg/mL (239-931) H 12/06/16 14:55 Vit D 1,25-Dihydroxy 88 pg/mL (20 - 79) H 12/06/16 14:55 Alpha-Tocopherol 1512 ug/dL (500-1800) 12/06/16 14:55 Vitamin K 73 pg/mL (80-1160) L 12/06/16 14:55 Urine Color Dark Brown 12/04/16 20:18 Urine Appearance Cloudy (Clear) H 12/04/16 20:18 Urine pH 5.0 (5.0-8.0) 12/04/16 20:18 Ur Specific [place] 1.018 (1.001-1.035) 12/04/16 20:18 Urine Protein 1+ (Negative) H 12/04/16 20:18 Urine Glucose (UA) Negative (Negative) 12/04/16 20:18 Urine Ketones Negative (Negative) 12/04/16 20:18 Urine Blood Negative (Negative) 12/04/16 20:18 Urine Nitrite Negative (Negative) 12/04/16 20:18 Urine Bilirubin 1+ (Negative) H 12/04/16 20:18 Urine Urobilinogen 4.0 mg/dL (<2.0) 12/04/16 20:18 Ur Leukocyte Esterase Negative (Negative) 12/04/16 20:18 Urine RBC 1 /hpf (0-5) 12/04/16 20:18 Urine WBC 3 /hpf (0-5) 12/04/16 20:18 Urine Bacteria Rare /hpf (None) H 12/04/16 20:18 Hyaline Casts 4 /lpf (0-2) H 12/04/16 20:18 Urine Yeast (Budding) Few /hpf (None) H 12/04/16 20:18 Random Vancomycin 6.2 ug/mL 12/07/16 06:43 Urine Opiates Screen Not Detected (NotDetected) 12/04/16 20:18 Ur Oxycodone Screen Not Detected (NotDetected) 12/04/16 20:18 Urine Methadone Screen Not Detected (NotDetected) 12/04/16 20:18 Ur Propoxyphene Screen Not Detected (NotDetected) 12/04/16 20:18 Ur Barbiturates Screen Not Detected (NotDetected) 12/04/16 20:18 U Tricyclic Antidepress Detected (NotDetected) H 12/04/16 20:18 Ur Phencyclidine Scrn Not Detected (NotDetected) 12/04/16 20:18 Ur Amphetamines Screen Not Detected (NotDetected) 12/04/16 20:18 U Methamphetamines Scrn Not Detected (NotDetected) 12/04/16 20:18 U Benzodiazepines Scrn Detected (NotDetected) H 12/04/16 20:18 Urine Cocaine Screen Not Detected (NotDetected) 12/04/16 20:18 U Marijuana (THC) Screen Not Detected (NotDetected) 12/04/16 20:18 JANAK Antibody <5 IU/mL (<5) 12/06/16 14:55 Microbiology 12/16/16 21:23 Axilla - Left Anaerobic Culture - Preliminary Peptostreptococcus species 12/16/16 21:23 Axilla - Left Gram Stain - Final 12/16/16 21:23 Axilla - Left Wound Culture - Final Staphylococcus aureus 12/04/16 19:36 Blood Blood Culture - Final No Growth after 144 hours 12/04/16 21:30 Axilla - Left Gram Stain - Final 12/04/16 21:30 Axilla - Left Wound Culture - Final Staphylococcus aureus 12/04/16 20:18 Urine,Catheterized Urine Culture - Final Assessment and Plan (1) Anaphylactic reaction Status: Acute (2) Abscess of axilla, left Narrative/Plan: 61-year-old female presents from her care home with some increasing weakness. Admission without evidence of sepsis apparently in the base of the significant cellulitis and abscess to her left axillary area. She hasn't had the significant hives and swelling responded well to intervention with Benadryl , epinephrine and steroids. She apparently is improved from her admission. The extensive acidosis was noted and is being corrected. Antibiotic therapy was initiated with vancomycin and ampicillin sulbactam. Given her acute renal failure we'll avoid further doses of vancomycin in utilize Ceftaroline was to give coverage for MRSA as well as staph and strep which we, pathogens of the axillary area. Continue ongoing supportive care. Dry dressing for the drainage. Cultures in process. The patient is now improved. Cultures have come back as MSSA. Ceftaroline was transitioned to Ancef 2 g IVPB back every 8 hours given her marked improved renal failure. Her acidosis has resolved. Overall she is improving. With the improved renal function CT angiogram has been performed without evidence of a pulmonary embolus. The axillary area started to have more drainage. The area became more fluctuant. Surgeon surgeon was called. She's now been taking for the incision and drainage. The large cavity was found. It is been debrided. He is now packed. Once infection is improved within be a candidate for negative pressure therapy system to this area. This could be on Wednesday. At the transfer to the extended care facility continued antibiotic therapy for [address] orders for the negative pressure therapy system next week. Status: Acute
== END 2016-12-21 15:38 | DRG 917 ==
LOC: EC 19:09 → 6SEL 21:54 → 6ICU 12-05 10:49 → 6SEL 12-08 15:30 → 5MS5E 12-11 17:36
PROVIDERS: ADMIT Hospitalist; ATTEND Hospitalist
PROC: 0T9B70Z Drainage of Bladder with Drainage Device, Via Natural or Artificial Opening (ICD-10-PCS; 2016-12-09)
PROC: 0X953ZZ Drainage of Left Axilla, Percutaneous Approach (ICD-10-PCS; 2016-12-16)
PROC: 02HV33Z Insertion of Infusion Device into Superior Vena Cava, Percutaneous Approach (ICD-10-PCS; principal; 2016-12-18 14:23)
DX: T63.441A Toxic effect of venom of bees, accidental (unintentional), initial encounter (principal); J96.01 Acute respiratory failure with hypoxia; N17.0 Acute kidney failure with tubular necrosis; R65.20 Severe sepsis without septic shock; G93.41 Metabolic encephalopathy; A41.9 Sepsis, unspecified organism; B37.89 Other sites of candidiasis; I95.9 Hypotension, unspecified; E87.1 Hypo-osmolality and hyponatremia; B37.0 Candidal stomatitis; L03.112 Cellulitis of left axilla; L02.412 Cutaneous abscess of left axilla; J45.21 Mild intermittent asthma with (acute) exacerbation; E87.0 Hyperosmolality and hypernatremia; E87.2 Acidosis; T78.2XXA Anaphylactic shock, unspecified, initial encounter; E86.0 Dehydration; E86.1 Hypovolemia; R34 Anuria and oliguria; E66.01 Morbid (severe) obesity due to excess calories; F25.9 Schizoaffective disorder, unspecified; I10 Essential (primary) hypertension; E78.5 Hyperlipidemia, unspecified; K21.9 Gastro-esophageal reflux disease without esophagitis; I25.10 Atherosclerotic heart disease of native coronary artery without angina pectoris; J44.9 Chronic obstructive pulmonary disease, unspecified; H35.30 Unspecified macular degeneration; E87.6 Hypokalemia; G47.30 Sleep apnea, unspecified; F41.9 Anxiety disorder, unspecified; R47.81 Slurred speech; F32.9 Major depressive disorder, single episode, unspecified; H04.129 Dry eye syndrome of unspecified lacrimal gland; L50.9 Urticaria, unspecified; G62.9 Polyneuropathy, unspecified; B95.61 Methicillin susceptible Staphylococcus aureus infection as the cause of diseases classified elsewhere; B99.8 Other infectious disease; L30.9 Dermatitis, unspecified; R53.1 Weakness; G47.33 Obstructive sleep apnea (adult) (pediatric); E87.5 Hyperkalemia; Z79.1 Long term (current) use of non-steroidal anti-inflammatories (NSAID); Z71.3 Dietary counseling and surveillance; Z80.0 Family history of malignant neoplasm of digestive organs; Z90.49 Acquired absence of other specified parts of digestive tract; Z86.73 Personal history of transient ischemic attack (TIA), and cerebral infarction without residual deficits; Z79.899 Other long term (current) drug therapy; Z82.49 Family history of ischemic heart disease and other diseases of the circulatory system; Z80.8 Family history of malignant neoplasm of other organs or systems; Z79.82 Long term (current) use of aspirin; Z90.710 Acquired absence of both cervix and uterus
CPT/HCPCS: 36415; 36569; 36600; 70450; 71010; 71020; 71275; 76937; 77001; 80048; 80053; 80202; 80306; 81001; 82550; 82553; 82607; 82652; 82805; 83036; 83519; 83605; 83735; 83880; 84100; 84132; 84446; 84484; 84597; 85025; 85379; 85610; 85652; 85730; 86140; 87040; 87070; 87075; 87077; 87086; 87186; 87205; 93005; 93308; 94640; 94660; 94760; 95819; 96361; 96365; 96372; 96375; 99291

== ENCOUNTER 2016-12-30 01:15 | Inpatient (IN) | payer MEDICARE, OTHER ==
[2016-12-30] MEDS ORDERED: SODIUM CHLORIDE 0.9% 1,000 ML IV STA ×2 (01:23)
[2016-12-30] MEDS ORDERED: KETOROLAC 30 MG/ML 1 ML VIAL IVP STA (01:23)
[2016-12-30] MEDS ORDERED: SODIUM CHLORIDE 0.9% 500 ML IV STA (01:23)
[2016-12-30] MEDS ORDERED: PIPERACILLIN-TAZOBACTAM 3.375 GM in DEXTROSE/WATER 1 50ML.BAG IVPB STA (01:23)
[2016-12-30] MEDS ORDERED: VANCOMYCIN IV PER PHARMACY 1 EACH MISC MISCELLANE PRN (01:23)
[2016-12-30] MEDS ORDERED: ACETAMINOPHEN IV (For NPO) 1,000 MG in EMPTY BAG 1 BAG IVPB STA (01:23)
[2016-12-30] MEDS ORDERED: VANCOMYCIN 1,500 MG in SODIUM CHLORIDE 0.9% 250 ML IVPB STA (01:30)
--- NOTE | 2016-12-30 01:33 | ED ---
General Adult HPI - General Chief complaint: Fever Stated complaint: infection Time Seen by Provider: 12/30/16 01:16 Source: patient, EMS, RN notes reviewed, old records reviewed Mode of arrival: EMS Limitations: no limitations - History of Present Illness Initial comments: This is a 7-year-old female to the ER for evaluation and transfer patient from assisted. Patient's and rule out sepsis, patient with new fever. Cough and difficulty breathing. Patient has underlying asthma. No recent prolonged hospital stay which included difficulty wound healing, current wound VAC with antibiotics for surrounding infection. Patient denies abdominal pain no nausea vomiting or diarrhea. Patient does not feel well. - Related Data Home Medications Medication Instructions Recorded Confirmed Cholecalciferol [Vitamin D3] 2,000 unit PO DAILY 08/06/14 12/04/16 Citalopram Hydrobromide 40 mg PO DAILY 08/06/14 12/04/16 [Citalopram HBr] Cyanocobalamin [Vitamin B-12] 1,000 mcg PO Q48H 08/06/14 12/04/16 Omeprazole [PriLOSEC] 40 mg PO AC-BRKFST 08/06/14 12/04/16 Gabapentin [Neurontin] 300 mg PO BID 07/21/16 12/04/16 Loratadine [Claritin] 10 mg PO DAILY 07/21/16 12/04/16 Sennosides [Senna] 8.6 mg PO BID 07/21/16 12/04/16 Nitroglycerin Sl Tabs [Nitrostat] 0.4 mg SUBLINGUAL Q5M PRN 07/22/16 12/04/16 Vit A/Vit C/Vit E/Zinc/Copper 1 cap PO DAILY 07/22/16 12/04/16 [ICAPS SOFTGEL] Aspirin EC [Ecotrin Low Dose] 81 mg PO DAILY 07/27/16 12/04/16 Calcium Carbonate [Tums] 500 mg PO TID PRN 07/27/16 12/04/16 QUEtiapine [SEROquel] 400 mg PO HS 07/27/16 12/04/16 Simvastatin [Zocor] 20 mg PO HS 07/27/16 12/04/16 Previous Rx's Medication Instructions Recorded Nystatin 100,000 Unit/ml Susp 500,000 unit PO QID dose 12/18/16 [Mycostatin Oral Susp] predniSONE 20 mg PO DAILY #5 tab 12/18/16 Albuterol Nebulized [Ventolin 2.5 mg INHALATION RT-QID PRN neb 12/21/16 Nebulized] Budesonide [Pulmicort] 0.5 mg INHALATION RT-BID neb 12/21/16 Furosemide [Lasix] 20 mg PO DAILY #1 tab 12/21/16 Metoprolol Tartrate [Lopressor] 25 mg PO TID tab 12/21/16 ceFAZolin [Kefzol] 2 gm IV Q8HR #45 bag 12/21/16 Allergies Allergy/AdvReac Type Severity Reaction Status Date / Time bee venom protein (honey bee) Allergy Anaphylaxis Verified 12/30/16 01:20 Review of Systems ROS Statement: Those systems with pertinent positive or pertinent negative responses have been documented in the HPI. ROS Other: All systems not noted in ROS Statement are negative. Past Medical History Past Medical History: Asthma, Coronary Artery Disease (CAD), CVA/TIA, Eye Disorder, GERD/Reflux, Hyperlipidemia, Hypertension Additional Past Medical History / Comment(s): Macular degeneration,bronchial asthma,Tamra-Caregiver at [facility] pt signs own consent. History of Any Multi-Drug Resistant Organisms: None Reported Past Surgical History: Back Surgery, Cholecystectomy, Ear Surgery, Heart Catheterization, Hysterectomy, Tonsillectomy Additional Past Surgical History / Comment(s): eye surgery, cardiac cath on 2016 with moderate stenosis of LAD noted - no stenting at that time recommend medical management and return for angioplasty if sx persist Past Anesthesia/Blood Transfusion Reactions: No Reported Reaction Past Psychological History: Anxiety, Schizoaffective Disorder Smoking Status: Never smoker Past Alcohol Use History: None Reported Past Drug Use History: None Reported - Past Family History Mother Family Medical History: Myocardial Infarction (MO) Father Family Medical History: Cancer Additional Family Medical History / Comment(s): throat CA Brother(s) Family Medical History: Cancer Additional Family Medical History / Comment(s): liver General Exam Limitations: no limitations General appearance: alert, in no apparent distress, anxious Head exam: Present: atraumatic, normocephalic, normal inspection Eye exam: Present: normal appearance, PERRL, EOMI. Absent: scleral icterus, conjunctival injection, periorbital swelling ENT exam: Present: normal exam, mucous membranes moist Neck exam: Present: normal inspection. Absent: tenderness, meningismus, lymphadenopathy Respiratory exam: Present: normal lung sounds bilaterally, wheezes, decreased breath sounds, prolonged expiratory. Absent: respiratory distress, rales, rhonchi, stridor Cardiovascular Exam: Present: normal rhythm, tachycardia, normal heart sounds. Absent: systolic murmur, diastolic murmur, rubs, gallop, clicks GI/Abdominal exam: Present: soft, normal bowel sounds. Absent: distended, tenderness, guarding, rebound, rigid Extremities exam: Present: normal inspection, full ROM, normal capillary refill. Absent: tenderness, pedal edema, joint swelling, calf tenderness Back exam: Present: normal inspection Neurological exam: Present: alert, oriented X3, CN II-XII intact Psychiatric exam: Present: normal affect, normal mood Skin exam: Present: warm, dry, intact, normal color. Absent: rash Course Vital Signs 12/30/16 12/30/16 01:21 02:24 Temperature 100 F H Pulse Rate 126 H 113 H Respiratory 20 20 Rate Blood Pressure 142/86 108/73 O2 Sat by Pulse 94 L 96 Oximetry - Reevaluation(s) Reevaluation #1: 12/30/16 02:39 Patient this point feels better with symptom control Medical Decision Making - Medical Decision Making 61 female in the ER for evaluation. Patient has existing soft tissue skin wound infection, patient now with superimposed pneumonia. Nosocomial, will be admitted for broad-spectrum antibiotics, patient also shortness of breath with underlying asthma. Breathing treatments - Lab Data Result diagrams: 12/30/16 01:20 12/30/16 01:20 Lab Results 12/30/16 12/30/16 12/30/16 Range/Units 01:20 01:20 01:20 WBC 10.0 (3.8-10.6) k/uL RBC 3.18 L (3.80-5.40) m/uL Hgb 10.0 L (11.4-16.0) gm/dL Hct 31.2 L (34.0-46.0) % MCV 98.2 (80.0-100.0) fL MCH 31.4 (25.0-35.0) pg MCHC 32.0 (31.0-37.0) g/dL RDW 13.9 (11.5-15.5) % Plt Count 176 (150-450) k/uL Neutrophils % 82 % Lymphocytes % 14 % Monocytes % 3 % Eosinophils % 0 % Basophils % 0 % Neutrophils # 8.2 H (1.3-7.7) k/uL Lymphocytes # 1.4 (1.0-4.8) k/uL Monocytes # 0.3 (0-1.0) k/uL Eosinophils # 0.0 (0-0.7) k/uL Basophils # 0.0 (0-0.2) k/uL PT (9.0-12.0) sec INR (<1.2) APTT (22.0-30.0) sec Sodium 130 L (137-145) mmol/L Potassium 3.3 L (3.5-5.1) mmol/L Chloride 87 L (98-107) mmol/L Carbon Dioxide 33 H (22-30) mmol/L Anion Gap 10 mmol/L BUN 30 H (7-17) mg/dL Creatinine 0.70 (0.52-1.04) mg/dL Est GFR (MDRD) Af Amer >60 (>60 ml/min/1.73 sqM) Est GFR (MDRD) Non-Af >60 (>60 ml/min/1.73 sqM) Glucose 160 H (74-99) mg/dL Plasma Lactic Acid Britton (0.7-2.0) mmol/L Calcium 8.6 (8.4-10.2) mg/dL Phosphorus 2.8 (2.5-4.5) mg/dL Magnesium 1.3 L (1.6-2.3) mg/dL Total Bilirubin 0.6 (0.2-1.3) mg/dL AST 25 (14-36) U/L ALT 24 (9-52) U/L Alkaline Phosphatase 116 (38-126) U/L Total Creatine Kinase <20 L (30-135) U/L CK-MB (CK-2) 0.4 (0.0-2.4) ng/mL CK-MB (CK-2) Rel Index 0.0 Troponin I <0.012 (0.000-0.034) ng/mL Total Protein 5.8 L (6.3-8.2) g/dL Albumin 2.8 L (3.5-5.0) g/dL 12/30/16 12/30/16 Range/Units 01:20 01:20 WBC (3.8-10.6) k/uL RBC (3.80-5.40) m/uL Hgb (11.4-16.0) gm/dL Hct (34.0-46.0) % MCV (80.0-100.0) fL MCH (25.0-35.0) pg MCHC (31.0-37.0) g/dL RDW (11.5-15.5) % Plt Count (150-450) k/uL Neutrophils % % Lymphocytes % % Monocytes % % Eosinophils % % Basophils % % Neutrophils # (1.3-7.7) k/uL Lymphocytes # (1.0-4.8) k/uL Monocytes # (0-1.0) k/uL Eosinophils # (0-0.7) k/uL Basophils # (0-0.2) k/uL PT 12.1 H (9.0-12.0) sec INR 1.2 H (<1.2) APTT 22.4 (22.0-30.0) sec Sodium (137-145) mmol/L Potassium (3.5-5.1) mmol/L Chloride (98-107) mmol/L Carbon Dioxide (22-30) mmol/L Anion Gap mmol/L BUN (7-17) mg/dL Creatinine (0.52-1.04) mg/dL Est GFR (MDRD) Af Amer (>60 ml/min/1.73 sqM) Est GFR (MDRD) Non-Af (>60 ml/min/1.73 sqM) Glucose (74-99) mg/dL Plasma Lactic Acid Britton 1.5 (0.7-2.0) mmol/L Calcium (8.4-10.2) mg/dL Phosphorus (2.5-4.5) mg/dL Magnesium (1.6-2.3) mg/dL Total Bilirubin (0.2-1.3) mg/dL AST (14-36) U/L ALT (9-52) U/L Alkaline Phosphatase (38-126) U/L Total Creatine Kinase (30-135) U/L CK-MB (CK-2) (0.0-2.4) ng/mL CK-MB (CK-2) Rel Index Troponin I (0.000-0.034) ng/mL Total Protein (6.3-8.2) g/dL Albumin (3.5-5.0) g/dL - Radiology Data Radiology results: report reviewed (Chest x-ray is positive for pneumonia), image reviewed Disposition Clinical Impression: Nosocomial pneumonia, Asthma Disposition: ADMITTED IP TO THIS [facility] Condition: Serious Referrals: Loki Gomes MD [Primary Care Provider] - 1-2 days
[2016-12-30 01:34] LABS: Basophils % (A) 0 %; CH 32.7; CHCM 33.4; Eosinophils % (A) 0 %; HCT 31.2 % (34.0-46.0); HDW 2.52; Luc # (Auto) 0.19; Luc % (Auto) 2; Lymphocytes # (A) 1.4 k/uL (1.0-4.8); Lymphocytes % (A) 14 %; MCH 31.4 pg (25.0-35.0); MCV 98.2 fL (80.0-100.0); Monocytes # (A) 0.3 k/uL (0-1.0); Monocytes % (A) 3 %; Neutrophils # (A) 8.2 k/uL (1.3-7.7); Neutrophils % (A) 82 %; RBC 3.18 m/uL (3.80-5.40); RDW 13.9 % (11.5-15.5); WBC (Perox) 10.22
[2016-12-30] MEDS ORDERED: ONDANSETRON 4 MG/2 ML VIAL IVP STA (01:44)
[2016-12-30] MEDS ORDERED: IPRATROPIUM-ALBUTEROL 3 ML NEB INHALATION STA (01:44)
[2016-12-30 01:45] LABS: ALT 24 U/L (9-52); AST 25 U/L (14-36); Alkaline Phosphatase 116 U/L (38-126); Anion Gap 10 mmol/L; Blood Urea Nitrogen 30 mg/dL (7-17); Calcium 8.6 mg/dL (8.4-10.2); Carbon Dioxide 33 mmol/L (22-30); Chloride 87 mmol/L (98-107); Glucose 160 mg/dL (74-99); INR 1.2 (<1.2); Magnesium 1.3 mg/dL (1.6-2.3); Non-African American GFR(MDRD) >60 (>60 ml/min/1.73 sqM); Partial Thromboplastin Time 22.4 sec (22.0-30.0); Phosphorus 2.8 mg/dL (2.5-4.5); Potassium 3.3 mmol/L (3.5-5.1); Prothrombin Time 12.1 sec (9.0-12.0); Sodium 130 mmol/L (137-145); Total Bilirubin 0.6 mg/dL (0.2-1.3); Total Protein 5.8 g/dL (6.3-8.2)
[2016-12-30 01:59] LABS: Creatine Kinase <20 U/L (30-135)
[2016-12-30 02:10] LABS: Creatine Kinase MB 0.4 ng/mL (0.0-2.4); Troponin I <0.012 ng/mL (0.000-0.034)
--- NOTE | 2016-12-30 02:33 | XR ---
EXAM: XR Chest, 2 Views CLINICAL HISTORY: Reason: Weakness TECHNIQUE: Frontal and lateral views of the chest. COMPARISON: Chest CT 07/26/16 and CXR 06/02/11, 07/26/16 and 12/16/16 FINDINGS: Lungs: Left lower lobe alveolar disease which may represent a pneumonia. Pleural space: Unremarkable. No pneumothorax. Heart: Unremarkable. No cardiomegaly. Mediastinum: Unremarkable. Bones/joints: Evidence of previous ACDF in the cervical spine. Soft tissues: Left-sided soft tissue gas of uncertain etiology. IMPRESSION: 1. Left lower lobe alveolar disease which may represent a pneumonia. 2. Left-sided soft tissue gas of uncertain etiology.
[2016-12-30] MEDS ORDERED: LEVOFLOXACIN 750MG-D5W PMX 750 MG in DEXTROSE/WATER 1 150ML.BAG IVPB STA (02:37)
[2016-12-30] MEDS ORDERED: PNEUMONIA PROTOCOL UTILIZED 1 EACH MISC PO PRN (02:37)
[2016-12-30 08:51] LABS: Appearance,Urine Cloudy (Clear); Bilirubin,Urine Negative (Negative); Calcium Oxalate Crystals,Urine Occasional /hpf; Glucose,Urine (UA) Negative (Negative); Ketones,Urine Trace (Negative); Leukocyte Esterase,Urine Moderate (Negative); Mucus,Urine Rare /hpf; Nitrite,Urine Negative (Negative); Particle Count 11392; Protein,Urine 1+ (Negative); RBC,Urine 5 /hpf (0-5); Specific Gravity,Urine 1.019 (1.001-1.035); Squamous Epithelial Cell,Urine 9 /hpf (0-4); UA Billing (MACRO vs. MICRO) MICRO; Urobilinogen,Urine <2.0 mg/dL (<2.0); WBC,Urine 19 /hpf (0-5)
[2016-12-30] MEDS ORDERED: ENOXAPARIN 40 MG/0.4 ML SYRINGE SQ SCH (09:00)
[2016-12-30] MEDS: IPRATROPIUM-ALBUTEROL 3 ML NEB INHALATION SCH ×5 (09:35→20:00)
[2016-12-30] MEDS ORDERED: VANCOMYCIN 1,750 MG in SODIUM CHLORIDE 0.9% 250 ML IVPB SCH ×2 (11:00→22:00)
--- NOTE | 2016-12-30 12:37 | P.HPIM ---
History of Present Illness H&P Date: 12/30/16 Chief Complaint: Tired History of present complaint: Patient was recently in the hospital initially what is felt to be insect bite and a rash. Patient subsequently had a large axilla abscess and incision and drainage was carried out. Cultures were positive for Peptostreptococcus and MSSA. Conrado Elmore infectious disease. Patient was discharged with the wound VAC. Patient's other chronic stable medical conditions include asthma, coronary artery disease with a 50% LAD lesion, GERD, hypertension, hyperlipidemia, schizoaffective disorder, anxiety disorder, peripheral neuropathy. Last admission patient also had acute renal failure that resolved. Patient was sent in from the [facility]. She has developed shingles in the neck and left upper chest area on the right side somewhat. painful with the vesicles in place. Patient doesn't think her breathing is different from her baseline and has a very slight cough. Wound VAC had been used and the F. She's been walking about 4 or 5 steps with a walker. She thinks her appetite is fair. Bowels are doing good. GEN.: Tired EYES: None HEENT: None NECK: None RESPIRATORY: None CARDIOVASCULAR: None GASTROINTESTINAL: None GENITOURINARY: None MUSCULOSKELETAL: Pain in the joints LYMPHATICS: None HEMATOLOGICAL: None PSYCHIATRY: [Anxious NEUROLOGICAL: None DERMATOLOGICAL: Abscess in the left axilla with the wound VAC in place, and shingles as above Past medical history: Left axilla abscesses growing MSSA and Peptostreptococcus, asthma, on artery disease with nonobstructive 50% LAD lesion, GERD, essential hypertension, hyperlipidemia, schizoaffective disorder, anxiety disorder not otherwise specified, peripheral neuropathy, TIA, hiatal hernia, uterine cancer with hysterectomy, tardive dyskinesia, migraines. Past surgical history: Adenoidectomy, back surgery, cholecystectomy, ear surgery, cardiac cath, history of acne, tonsillar be, IND of the left axilla, left eye surgery for lazy eye, myringotomy tubes, cardiac cath showing 50% LAD lesion Social history: Patient is a resident of [facility] using a walker drank alcohol occasionally no smoking Family history: Mother age of 72 probably from a heart attack Home medications: Medications reviewed in the computer and include Valtrex VITAL SIGNS: Temperature 100, pulse 126, respiration 20, blood pressure 142/86, pulse ox 94% on 2 L GENERAL: [Well-built, BMI 37.6 laying in bed somewhat uncomfortable,]. EYES: [Pupils equal. Conjunctiva jerry]l. HEENT: [External appearance of nose and ears normal, oral cavity grossly normal] . NECK: [JVD not raised; masses not palpable]. HEART: [First and second heart sounds are normal; no edema]. LUNGS:[ Respiratory rate normal; decreased breath]. ABDOMEN: [Soft, nontender, liver spleen not palpable, no masses palpable]. LYMPHATICS: [No lymph nodes palpable in the axilla and neck]. PSYCH: [Alert and oriented x3; mood and affect anxious l. NEUROLOGICAL: [Cranial nerves grossly intact; no facial asymmetry, power and sensation grossly intact patient has movements patient noted about a dyskinesia Axilla: Wound present DERMATOLOGICAL: Vesicles present on the right side of the neck and the adjoining part of the upper chest wall, tender fluid-filled Investigations: White count 10, hemoglobin 10, potassium 3.3, sodium 1:30, (30, creatinine 0.70 Chest [id number] infiltrate Assessment: -This patient who was in the hospital recently with axilla abscesses status post I&D presents with low-grade fever and tachycardia. This is likely from her axilla the fever. Patient has minimal respiratory symptoms if any and I doubt this is pneumonia -Intermittent asthma -Cor artery disease with nonobstructive 50% LAD lesion GERD Essential hypertension Hyperlipidemia Metabolic alkalosis Chronic tardive dyskinesia -Schizoaffective disorder chronic Anxiety disorder not otherwise specified -Peripheral neuropathy idiopathic -Cor status full -Herpes zoster type II in the neck and upper chest wall area Plan: Patient known to Dr. Mora from pulmonary and Dr. Elmore infectious disease, Dr. Desai from general surgery. We'll consult them for the same. Patient is already on Valtrex for the herpes zoster type II. Home medications were resumed. Wound VAC will be placed. Care was discussed with the patient. Antibiotics per Dr. Elmore. ]. Past Medical History Past Medical History: Asthma, Coronary Artery Disease (CAD), Cancer, Chest Pain / Angina, CVA/TIA, Eye Disorder, GERD/Reflux, Hyperlipidemia, Hypertension Additional Past Medical History / Comment(s): Pt recently admitted to [facility] on with allergic reaction possibly to insect bite, exacerbation of asthma, respiratory failure, L axillae cellulitis-cultures grew peptostreptococcus and MSSA-had I&D and has wound vac. 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 History of Any Multi-Drug Resistant Organisms: None Reported Past Surgical History: Adenoidectomy, Back Surgery, Cholecystectomy, Ear Surgery , Heart Catheterization, Hysterectomy, Tonsillectomy Additional Past Surgical History / Comment(s): I & D L axillae, L eye surgery for laxy eye, bilateral cataract removal, bilateral myringotomy/tubes, colonoscopy, cardiac cath on 07/24/2016 with moderate stenosis of LAD noted - no stenting at that time recommend medical management and return for angioplasty if sx persist Past Anesthesia/Blood Transfusion Reactions: No Reported Reaction Smoking Status: Never smoker - Past Family History Mother Family Medical History: Myocardial Infarction ([place]) Additional Family Medical History / Comment(s): Mother at 72 yrs. Father Family Medical History: Cancer Additional Family Medical History / Comment(s): throat CA. Father at 72 yrs. Brother(s) Family Medical History: Cancer Additional Family Medical History / Comment(s): liver Medications and Allergies Home Medications Medication Instructions Recorded Confirmed Type Cholecalciferol [Vitamin D3] 2,000 unit PO DAILY 08/06/14 12/30/16 History Citalopram Hydrobromide 40 mg PO DAILY 08/06/14 12/30/16 History [Citalopram HBr] Cyanocobalamin [Vitamin B-12] 1,000 mcg PO Q48H 08/06/14 12/30/16 History Gabapentin [Neurontin] 300 mg PO BID@0900,1700 07/21/16 12/30/16 History Loratadine [Claritin] 10 mg PO DAILY 07/21/16 12/30/16 History Sennosides [Senna] 8.6 mg PO BID@0900,1700 07/21/16 12/30/16 History Nitroglycerin Sl Tabs [Nitrostat] 0.4 mg SUBLINGUAL Q5M PRN 07/22/16 12/30/16 History Aspirin EC [Ecotrin Low Dose] 81 mg PO DAILY 07/27/16 12/30/16 History Calcium Carbonate [Tums] 500 mg PO TID PRN 07/27/16 12/30/16 History QUEtiapine [SEROquel] 400 mg PO HS 07/27/16 12/30/16 History Acetaminophen [Tylenol 8 Hour] 650 mg PO Q4H PRN 12/30/16 12/30/16 History Acetaminophen-Codeine 300-30mg 1 tab PO Q8H PRN 12/30/16 12/30/16 History [Tylenol #3] Albuterol Nebulized [Ventolin 2.5 mg INHALATION RT-Q6H PRN 12/30/16 12/30/16 History Nebulized] Amino Acids/Protein Hydrolys 30 ml PO BID 12/30/16 12/30/16 History [Pro-Stat Supplement] Atorvastatin [Lipitor] 10 mg PO HS 12/30/16 12/30/16 History Calamine/Zinc Oxide Lotion 1 applic TOPICAL Q6H PRN 12/30/16 12/30/16 History [Calamine Lotion] Dimethicone/Zinc Oxide [Inzo Zinc 1 applic TOPICAL DIRECTED PRN 12/30/1602/07 History Oxide Barrier Cream] Dimethicone/Zinc Oxide [Inzo Zinc 1 applic TOPICAL Q12H 12/30/16 12/30/16 History Oxide Barrier Cream] Ferrous Sulfate [Feosol] 325 mg PO DAILY@1700 12/30/16 12/30/16 History Omeprazole 20 mg PO AC-BRKFST 12/30/16 12/30/16 History Ondansetron [Zofran] 4 mg PO Q8HR PRN 12/30/16 12/30/16 History Potassium Chloride [Klor-Con 10] 10 meq PO DAILY 12/30/16 12/30/16 History Potassium Chloride [Klor-Con 20] 20 meq PO DIRECTED 12/30/16 12/30/16 History Vit C/E/Zn/Coppr/Lutein/Zeaxan 1 cap PO DAILY 12/30/16 12/30/16 History [Preservision Areds 2 Softgel] ceFAZolin [Kefzol] 2 gm IV TID@0600,1400,2200 12/30/16 12/30/16 History valACYclovir [Valtrex] 1,000 mg PO TID@0600,1400,2200 12/30/16 12/30/16 History Allergies Allergy/AdvReac Type Severity Reaction Status Date / Time bee venom protein (honey bee) Allergy Anaphylaxis Verified 12/30/16 06:57 Results CBC & Chem 7: 12/30/16 01:20 12/30/16 01:20
[2016-12-30] MEDS ORDERED: ALBUTEROL NEBULIZED 2.5 MG/3 ML INHALATION PRN (12:39)
[2016-12-30] MEDS ORDERED: ONDANSETRON 4 MG TAB PO PRN (12:39)
[2016-12-30] MEDS ORDERED: CALAMINE/ZINC OXIDE LOTION 177 ML BTL TOPICAL PRN (12:39)
[2016-12-30] MEDS ORDERED: CALCIUM CARBONATE 500 MG CHEWABLE PO PRN (12:39)
[2016-12-30] MEDS ORDERED: NITROGLYCERIN SL TABS 0.4 MG TAB SUBLINGUAL PRN (12:39)
[2016-12-30] MEDS ORDERED: NON-FORMULARY DRUG (Dimethicone/Zinc Oxide [Inzo Zinc Oxide Barrier Cream] 1 APPLIC) TOPICAL PRN (12:39)
[2016-12-30] MEDS: SODIUM CHLORIDE 0.9% 1,000 ML IV SCH ×2 (14:28→14:29)
[2016-12-30] MEDS: PIPERACILLIN-TAZOBACTAM 3.375 GM in DEXTROSE/WATER 1 50ML.BAG IVPB SCH ×3 (16:00→23:32)
[2016-12-30] MEDS: ZINC OXIDE 20% OINT 28.4 GM TUBE TOPICAL SCH ×2 (16:02→23:36)
[2016-12-30] MEDS: SENNOSIDES 8.6 MG TAB PO SCH (16:08)
[2016-12-30] MEDS: GABAPENTIN 300 MG CAP PO SCH (16:08)
[2016-12-30] MEDS: PANTOPRAZOLE 40 MG TABLET PO SCH (16:08)
[2016-12-30] MEDS: LORATADINE 10 MG TAB PO SCH (16:08)
[2016-12-30] MEDS: FERROUS SULFATE 325 MG TAB PO SCH (16:08)
[2016-12-30] MEDS: valACYclovir 500 MG TAB PO SCH ×2 (16:08→21:20)
[2016-12-30] MEDS: VIT A,C & E-LUTEIN-MINERALS 1 EACH TAB PO SCH (16:08)
[2016-12-30] MEDS: ASPIRIN 81 MG PO SCH (16:09)
[2016-12-30] MEDS: CITALOPRAM HYDROBROMIDE 20 MG TAB PO SCH (16:09)
[2016-12-30] MEDS: METOPROLOL TARTRATE 25 MG TAB PO SCH ×2 (16:09→21:20)
[2016-12-30] MEDS: CYANOCOBALAMIN 500 MCG TAB PO SCH (16:09)
[2016-12-30] MEDS: POTASSIUM CHLORIDE ER 10 MEQ TAB.ER.PRT PO SCH (16:09)
[2016-12-30] MEDS: ONDANSETRON 4 MG/2 ML VIAL IVP PRN (17:48)
[2016-12-30] MEDS: Acetaminophen-Codeine 300-30mg TAB PO PRN (19:43)
[2016-12-30] MEDS: BUDESONIDE 0.5 MG/2 ML NEBU INHALATION SCH (20:00)
[2016-12-30] MEDS ORDERED: NON-FORMULARY DRUG (Amino Acids/Protein Hydrolys [Pro-Stat Supplement] 30 ML) PO SCH (21:00)
[2016-12-30] MEDS ORDERED: POTASSIUM CHLORIDE ER 20 MEQ TAB.ER PO ONE (21:00)
[2016-12-30] MEDS: QUEtiapine 400 MG TAB PO SCH (21:20)
[2016-12-30] MEDS: ATORVASTATIN 10 MG TAB PO SCH (21:20)
--- NOTE | 2016-12-30 21:49 | P.CONS ---
History of Present Illness - Reason for Consult Consult date: 12/30/16 - Chief Complaint Pain to right neck - History of Present Illness 61-year-old female presents to the emergency center from the [facility] care facility where she has been receiving care for her significant abscess to her left axillary area status post incision and drainage. Apparently she started to have change in the drainage despite the wound VAC. She is having some increasing discomfort. She was becoming weak and tired. She then developed a significant rash that started at the base of the neck to the right side. It was a blistering rash that was extremely painful. She believes she had a low-grade fever. Because of her acute changes status she was sent to the emergency center and was admitted. With evidence of the significant rash and the ongoing infection to the left axillary area the infectious diseases consultation was requested. At this time she seems a bit more awake and alert than admission. She is able to relate to some pain at the left axillary area but it is not severe at this time. The wound VAC was minimally uncomfortable. She relates that her great amount of pain is to the right neck where she has the blistering rash. Does not believe she's had a high-grade fever or chills. Feels quite poorly overall. She's had some nausea without emesis. She denying significant abdominal pain at this time. She is not having significant cough or sputum production no hemoptysis. Review of Systems HEENT:Denies headache or acute visual change. Denies sinus or mouth discomforts. Denies neck stiffness or pain. Denies significant oral cavity pain. Denies difficulty on swallowing. Lungs: His breath is at baseline. Denies significant cough or sputum production. No hemoptysis. Cardiovascular: Denies significant shortness of breath, chest pain, chest wall pain, orthopnea, dyspnea on exertion, syncope Gastrointestinal:Denies nausea, vomiting, diarrhea, constipation, hematemesis, melena, hematochezia. No no significant change of bowel habit noticed. Musculoskeletal: denies significant myalgias or arthralgias. No new joint swelling. Denies new back pain. Skin: New blistering rash to the right neck. Neuro: Denies headache or visual change. Relates with her physical therapy her weakness was improving but is now feeling poorly again. No recent falls. Psychiatric: Chronic anxiety. Endocrine: Worsening fatigue and weight gain have occurred. Past Medical History Past Medical History: Asthma, Coronary Artery Disease (CAD), Cancer, Chest Pain / Angina, CVA/TIA, Eye Disorder, GERD/Reflux, Hyperlipidemia, Hypertension Additional Past Medical History / Comment(s): Pt recently admitted to [facility] on with allergic reaction possibly to insect bite, exacerbation of asthma, respiratory failure, L axillae cellulitis-cultures grew peptostreptococcus and MSSA-had I&D and has wound vac. 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 History of Any Multi-Drug Resistant Organisms: None Reported Past Surgical History: Adenoidectomy, Back Surgery, Cholecystectomy, Ear Surgery , Heart Catheterization, Hysterectomy, Tonsillectomy Additional Past Surgical History / Comment(s): I & D L axillae, L eye surgery for laxy eye, bilateral cataract removal, bilateral myringotomy/tubes, colonoscopy, cardiac cath on 07/24/2016 with moderate stenosis of LAD noted - no stenting at that time recommend medical management and return for angioplasty if sx persist Past Anesthesia/Blood Transfusion Reactions: No Reported Reaction Additional Psychological History / Comment(s): Is normally a resident of a prison Smoking Status: Never smoker - Past Family History Mother Family Medical History: Myocardial Infarction (OR) Additional Family Medical History / Comment(s): Mother at 72 yrs. Father Family Medical History: Cancer Additional Family Medical History / Comment(s): throat CA. Father at 72 yrs. Brother(s) Family Medical History: Cancer Additional Family Medical History / Comment(s): liver Medications and Allergies Home Medications and Allergies Comment(s): Current Medications Acetaminophen/Codeine Phosphate (Tylenol #3) 1 each PO Q8H PRN PRN Reason: mild/moderate pain Last Admin: 12/30/16 19:43 Dose: 1 each Albuterol Sulfate (Ventolin Nebulized) 2.5 mg INHALATION RT-Q6H PRN PRN Reason: Shortness Of Breath Or Wheezing Albuterol/Ipratropium (Duoneb 0.5 Mg-3 Mg/3 Ml Soln) 3 ml INHALATION RT-QID [facility]ADA Last Admin: 12/30/16 20:00 Dose: 3 ml Aspirin (Aspirin) 81 mg PO DAILY [facility] Last Admin: 12/30/16 16:09 Dose: 81 mg Atorvastatin Calcium (Lipitor) 10 mg PO HS [facility] Last Admin: 12/30/16 21:20 Dose: 10 mg Budesonide (Pulmicort) 0.5 mg INHALATION RT-BID [facility] Last Admin: 12/30/16 20:00 Dose: 0.5 mg Calamine (Calamine Lotion) 1 applic TOPICAL Q6H PRN PRN Reason: shoulder/chest rash Calcium Carbonate/Glycine (Tums) 500 mg PO TID PRN PRN Reason: Indigestion Cholecalciferol (Vitamin D3) 2,000 unit PO DAILY [facility] Citalopram Hydrobromide (Celexa) 40 mg PO DAILY [facility] Last Admin: 12/30/16 16:09 Dose: 40 mg Cyanocobalamin (Vitamin B-12) 1,000 mcg PO Q48H [facility] Last Admin: 12/30/16 16:09 Dose: 1,000 mcg Enoxaparin Sodium (Lovenox) 40 mg SQ DAILY [facility] Last Admin: 12/30/16 16:01 Dose: Not Given Ferrous Sulfate (Feosol) 325 mg PO DAILY@1700 [facility] Last Admin: 12/30/16 16:08 Dose: 325 mg Furosemide (Lasix) 20 mg PO DAILY [facility] Gabapentin (Neurontin) 300 mg PO BID@0900,1700 [facility] Last Admin: 12/30/16 16:08 Dose: 300 mg Levofloxacin 750 mg/ IV (Solution) 150 mls @ 100 mls/hr IVPB Q24H [facility] Stop: 01/12/17 09:01 Piperacillin/Tazobactam/ (Dextrose 3.375 gm/ IV Solution) 50 mls @ 12.5 mls/hr IVPB Q8HR [facility] Stop: 01/09/17 08:01 Last Admin: 12/30/16 16:07 Dose: 12.5 mls/hr Sodium Chloride (Saline 0.9%) 1,000 mls @ 100 mls/hr IV .Q10H [facility] Last Admin: 12/30/16 14:29 Dose: Not Given Vancomycin HCl 1,750 mg/ (Sodium Chloride) 250 mls @ 125 mls/hr IVPB Q12H [facility] Last Admin: 12/30/16 21:22 Dose: 125 mls/hr Loratadine (Claritin) 10 mg PO DAILY [facility] Last Admin: 12/30/16 16:08 Dose: 10 mg Metoprolol Tartrate (Lopressor) 25 mg PO TID [facility] Last Admin: 12/30/16 21:20 Dose: 25 mg Miscellaneous Information (Pneumonia Protocol Utilized) 1 each PO ONCE PRN PRN Reason: Per Protocol Multi-Ingredient Ointment (Zinc Oxide 20% Oint) 1 applic TOPICAL Q12H [facility] Last Admin: 12/30/16 16:02 Dose: Not Given Multivitamins/Minerals (Ivite) 1 each PO DAILY [facility] Last Admin: 12/30/16 16:08 Dose: 1 each Nitroglycerin (Nitrostat) 0.4 mg SUBLINGUAL Q5M PRN PRN Reason: Chest Pain Ondansetron HCl (Zofran) 4 mg IVP Q6HR PRN PRN Reason: Nausea And Vomiting Last Admin: 12/30/16 17:48 Dose: 4 mg Pantoprazole Sodium (Protonix) 40 mg PO AC-BRKFST [facility] Last Admin: 12/30/16 16:08 Dose: 40 mg Potassium Chloride (K-Dur 10) 10 meq PO DAILY [facility] Last Admin: 12/30/16 16:09 Dose: 10 meq Quetiapine Fumarate (Seroquel) 400 mg PO HS [facility] Last Admin: 12/30/16 21:20 Dose: 400 mg Senna (Senokot) 8.6 mg PO BID@0900,1700 [facility] Last Admin: 12/30/16 16:08 Dose: 8.6 mg Valacyclovir HCl (Valtrex) 1,000 mg PO TID@0600,1400,2200 [facility] Last Admin: 12/30/16 21:20 Dose: 1,000 mg Home Medications Medication Instructions Recorded Confirmed Type Cholecalciferol [Vitamin D3] 2,000 unit PO DAILY 08/06/14 12/30/16 History Citalopram Hydrobromide 40 mg PO DAILY 08/06/14 12/30/16 History [Citalopram HBr] Cyanocobalamin [Vitamin B-12] 1,000 mcg PO Q48H 08/06/14 12/30/16 History Gabapentin [Neurontin] 300 mg PO BID@0900,1700 07/21/16 12/30/16 History Loratadine [Claritin] 10 mg PO DAILY 07/21/16 12/30/16 History Sennosides [Senna] 8.6 mg PO BID@0900,1700 07/21/16 12/30/16 History Nitroglycerin Sl Tabs [Nitrostat] 0.4 mg SUBLINGUAL Q5M PRN 07/22/16 12/30/16 History Aspirin EC [Ecotrin Low Dose] 81 mg PO DAILY 07/27/16 12/30/16 History Calcium Carbonate [Tums] 500 mg PO TID PRN 07/27/16 12/30/16 History QUEtiapine [SEROquel] 400 mg PO HS 07/27/16 12/30/16 History Acetaminophen [Tylenol 8 Hour] 650 mg PO Q4H PRN 12/30/16 12/30/16 History Acetaminophen-Codeine 300-30mg 1 tab PO Q8H PRN 12/30/16 12/30/16 History [Tylenol #3] Albuterol Nebulized [Ventolin 2.5 mg INHALATION RT-Q6H PRN 12/30/16 12/30/16 History Nebulized] Amino Acids/Protein Hydrolys 30 ml PO BID 12/30/16 12/30/16 History [Pro-Stat Supplement] Atorvastatin [Lipitor] 10 mg PO HS 12/30/16 12/30/16 History Calamine/Zinc Oxide Lotion 1 applic TOPICAL Q6H PRN 12/30/16 12/30/16 History [Calamine Lotion] Dimethicone/Zinc Oxide [Inzo Zinc 1 applic TOPICAL DIRECTED PRN 12/30/1602/07 History Oxide Barrier Cream] Dimethicone/Zinc Oxide [Inzo Zinc 1 applic TOPICAL Q12H 12/30/16 12/30/16 History Oxide Barrier Cream] Ferrous Sulfate [Feosol] 325 mg PO DAILY@1700 12/30/16 12/30/16 History Omeprazole 20 mg PO AC-BRKFST 12/30/16 12/30/16 History Ondansetron [Zofran] 4 mg PO Q8HR PRN 12/30/16 12/30/16 History Potassium Chloride [Klor-Con 10] 10 meq PO DAILY 12/30/16 12/30/16 History Potassium Chloride [Klor-Con 20] 20 meq PO DIRECTED 12/30/16 12/30/16 History Vit C/E/Zn/Coppr/Lutein/Zeaxan 1 cap PO DAILY 12/30/16 12/30/16 History [Preservision Areds 2 Softgel] ceFAZolin [Kefzol] 2 gm IV TID@0600,1400,2200 12/30/16 12/30/16 History valACYclovir [Valtrex] 1,000 mg PO TID@0600,1400,2200 12/30/16 12/30/16 History Allergies Allergy/AdvReac Type Severity Reaction Status Date / Time bee venom protein (honey bee) Allergy Anaphylaxis Verified 12/30/16 06:57 Physical Exam Vitals: Vital Signs Temp Pulse Pulse Resp BP BP Pulse Ox 12/30/16 20:21 112 H 12/30/16 20:01 115 H 12/30/16 19:25 101.8 F H 128 H 17 116/64 95 12/30/16 16:00 118 H 12/30/16 15:52 110 H 12/30/16 15:39 108 H 12/30/16 15:05 98.3 F 118 H 18 130/57 97 12/30/16 09:51 92 12/30/16 09:35 92 12/30/16 07:20 97.8 F 91 18 122/71 97 12/30/16 06:16 98 16 122/76 94 L 12/30/16 04:15 99.3 F 95 20 121/55 95 12/30/16 02:24 113 H 20 108/73 96 12/30/16 01:21 100 F H 126 H 20 142/86 94 L Intake and Output 12/30/16 12/30/16 12/30/16 06:59 14:59 22:59 Intake Total 1360 Balance 1360 Intake: Intake, IV Titration 1000 Amount Levofloxacin 750Mg-D5w 150 Pmx 750 mg In Dextrose/ Water 1 150ml.bag @ 100 mls/hr IVPB Q24H [facility] Rx#: [id number] Sodium Chloride 0.9% 1, 600 000 ml @ 100 mls/hr IV . Q10H [facility] Rx#:[id number] Vancomycin 1,750 mg In 250 Sodium Chloride 0.9% 250 ml @ 125 mls/hr IVPB Q12H [facility] Rx#:[id number] Oral 360 Other: Voiding Method Incontinent Incontinent # Voids 2 Weight 99.337 kg 99.337 kg Patient Weight 12/31/16 06:59 Weight 99.337 kg 61-year-old woman who appears older than her stated age. More interactive than during her last hospital stay. But his still compromised. HEENT: Anicteric conjunctiva are pink and moist nasal mucosa grossly intact without significant lesions, there is no thrush. Oral mucosa is dry Neck: The neck is supple without significant lymphadenopathy or thyromegaly. Lungs: Good bilateral air entry without significant crackles or wheezing. There is no significant bronchial sounds. There is no egophony or dullness. Heart: Regular rate and rhythm with an audible S1-S2, no S3 no S4. There is no significant murmur click or rub, PMI was nondisplaced. Abdomen: Positive bowel sounds soft and nontender without palpable masses or organomegaly. There was no guarding or rebound. Extremities: The upper extremities have excellent pulses they are symmetric, no significant petechiae or telangiectasia. No splinter hemorrhages were noted. The left axillary area is evidence of site of the incision and drainage. The large cavity is noted. Please see the nursing photography for its site in measurement. There is evidence of some purulence at the base. Cultures have been obtained. Wound VAC was removed. Area was cleansed with saline and dressing is applied. It is slightly tender but not severely so. Skin: Evidence of the dermatomal rash onto the right neck onto the anterior chest wall. It does not penetrate over the midline of the shoulder. It is with vesicles are quite tender minimal erythema. Neuro: Arousable did interaction to some simple questions. In general withdrawn. More interactive than her last visit however. Results CBC & Chem 7: 12/30/16 01:20 12/30/16 01:20 Labs: Abnormal Lab Results - Last 24 Hours (Table) 12/30/16 12/30/16 12/30/16 Range/Units 01:20 01:20 01:20 RBC 3.18 L (3.80-5.40) m/uL Hgb 10.0 L (11.4-16.0) gm/dL Hct 31.2 L (34.0-46.0) % Neutrophils # 8.2 H (1.3-7.7) k/uL PT (9.0-12.0) sec INR (<1.2) Sodium 130 L (137-145) mmol/L Potassium 3.3 L (3.5-5.1) mmol/L Chloride 87 L (98-107) mmol/L Carbon Dioxide 33 H (22-30) mmol/L BUN 30 H (7-17) mg/dL Glucose 160 H (74-99) mg/dL Magnesium 1.3 L (1.6-2.3) mg/dL Total Creatine Kinase <20 L (30-135) U/L Total Protein 5.8 L (6.3-8.2) g/dL Albumin 2.8 L (3.5-5.0) g/dL Urine Appearance (Clear) Urine Protein (Negative) Urine Ketones (Negative) Ur Leukocyte Esterase (Negative) Urine WBC (0-5) /hpf Ur Squamous Epith Cells (0-4) /hpf Calcium Oxalate Crystal (None) /hpf Urine Mucus (None) /hpf Urine Yeast (Budding) (None) /hpf 12/30/16 12/30/16 Range/Units 01:20 08:30 RBC (3.80-5.40) m/uL Hgb (11.4-16.0) gm/dL Hct (34.0-46.0) % Neutrophils # (1.3-7.7) k/uL PT 12.1 H (9.0-12.0) sec INR 1.2 H (<1.2) Sodium (137-145) mmol/L Potassium (3.5-5.1) mmol/L Chloride (98-107) mmol/L Carbon Dioxide (22-30) mmol/L BUN (7-17) mg/dL Glucose (74-99) mg/dL Magnesium (1.6-2.3) mg/dL Total Creatine Kinase (30-135) U/L Total Protein (6.3-8.2) g/dL Albumin (3.5-5.0) g/dL Urine Appearance Cloudy H (Clear) Urine Protein 1+ H (Negative) Urine Ketones Trace H (Negative) Ur Leukocyte Esterase Moderate H (Negative) Urine WBC 19 H (0-5) /hpf Ur Squamous Epith Cells 9 H (0-4) /hpf Calcium Oxalate Crystal Occasional H (None) /hpf Urine Mucus Rare H (None) /hpf Urine Yeast (Budding) Many H (None) /hpf Microbiology - Last 24 Hours (Table) 12/30/16 08:30 Urine Culture - Preliminary Urine,Voided Laboratory Results WBC 10.0 k/uL (3.8-10.6) 12/30/16 01:20 RBC 3.18 m/uL (3.80-5.40) L 12/30/16 01:20 Hgb 10.0 gm/dL (11.4-16.0) L 12/30/16 01:20 Hct 31.2 % (34.0-46.0) L 12/30/16 01:20 MCV 98.2 fL (80.0-100.0) 12/30/16 01:20 MCH 31.4 pg (25.0-35.0) 12/30/16 01:20 MCHC 32.0 g/dL (31.0-37.0) 12/30/16 01:20 RDW 13.9 % (11.5-15.5) 12/30/16 01:20 Plt Count 176 k/uL (150-450) 12/30/16 01:20 Neutrophils % 82 % 12/30/16 01:20 Lymphocytes % 14 % 12/30/16 01:20 Monocytes % 3 % 12/30/16 01:20 Eosinophils % 0 % 12/30/16 01:20 Basophils % 0 % 12/30/16 01:20 Neutrophils # 8.2 k/uL (1.3-7.7) H 12/30/16 01:20 Lymphocytes # 1.4 k/uL (1.0-4.8) 12/30/16 01:20 Monocytes # 0.3 k/uL (0-1.0) 12/30/16 01:20 Eosinophils # 0.0 k/uL (0-0.7) 12/30/16 01:20 Basophils # 0.0 k/uL (0-0.2) 12/30/16 01:20 PT 12.1 sec (9.0-12.0) H 12/30/16 01:20 INR 1.2 (<1.2) H 12/30/16 01:20 APTT 22.4 sec (22.0-30.0) 12/30/16 01:20 Sodium 130 mmol/L (137-145) L 12/30/16 01:20 Potassium 3.3 mmol/L (3.5-5.1) L 12/30/16 01:20 Chloride 87 mmol/L (98-107) L 12/30/16 01:20 Carbon Dioxide 33 mmol/L (22-30) H 12/30/16 01:20 Anion Gap 10 mmol/L 12/30/16 01:20 BUN 30 mg/dL (7-17) H 12/30/16 01:20 Creatinine 0.70 mg/dL (0.52-1.04) 12/30/16 01:20 Est GFR (MDRD) Af Amer >60 (>60 ml/min/1.73 sqM) 12/30/16 01:20 Est GFR (MDRD) Non-Af >60 (>60 ml/min/1.73 sqM) 12/30/16 01:20 Glucose 160 mg/dL (74-99) H 12/30/16 01:20 Plasma Lactic Acid Britton 1.6 mmol/L (0.7-2.0) 12/30/16 10:36 Calcium 8.6 mg/dL (8.4-10.2) 12/30/16 01:20 Phosphorus 2.8 mg/dL (2.5-4.5) 12/30/16 01:20 Magnesium 1.3 mg/dL (1.6-2.3) L 12/30/16 01:20 Total Bilirubin 0.6 mg/dL (0.2-1.3) 12/30/16 01:20 AST 25 U/L (14-36) 12/30/16 01:20 ALT 24 U/L (9-52) 12/30/16 01:20 Alkaline Phosphatase 116 U/L (38-126) 12/30/16 01:20 Total Creatine Kinase <20 U/L (30-135) L 12/30/16 01:20 CK-MB (CK-2) 0.4 ng/mL (0.0-2.4) 12/30/16 01:20 CK-MB (CK-2) Rel Index 0.0 12/30/16 01:20 Troponin I <0.012 ng/mL (0.000-0.034) 12/30/16 01:20 Total Protein 5.8 g/dL (6.3-8.2) L 12/30/16 01:20 Albumin 2.8 g/dL (3.5-5.0) L 12/30/16 01:20 Urine Color Yellow 12/30/16 08:30 Urine Appearance Cloudy (Clear) H 12/30/16 08:30 Urine pH 6.0 (5.0-8.0) 12/30/16 08:30 Ur Specific Peck 1.019 (1.001-1.035) 12/30/16 08:30 Urine Protein 1+ (Negative) H 12/30/16 08:30 Urine Glucose (UA) Negative (Negative) 12/30/16 08:30 Urine Ketones Trace (Negative) H 12/30/16 08:30 Urine Blood Negative (Negative) 12/30/16 08:30 Urine Nitrite Negative (Negative) 12/30/16 08:30 Urine Bilirubin Negative (Negative) 12/30/16 08:30 Urine Urobilinogen <2.0 mg/dL (<2.0) 12/30/16 08:30 Ur Leukocyte Esterase Moderate (Negative) H 12/30/16 08:30 Urine RBC 5 /hpf (0-5) 12/30/16 08:30 Urine WBC 19 /hpf (0-5) H 12/30/16 08:30 Ur Squamous Epith Cells 9 /hpf (0-4) H 12/30/16 08:30 Calcium Oxalate Crystal Occasional /hpf (None) H 12/30/16 08:30 Urine Mucus Rare /hpf (None) H 12/30/16 08:30 Urine Yeast (Budding) Many /hpf (None) H 12/30/16 08:30 Microbiology 12/30/16 08:30 Urine,Voided Urine Culture - Preliminary Assessment and Plan (1) Varicella zoster Status: Acute (2) Schizo affective schizophrenia Status: Acute (3) Abscess of axilla, left Narrative/Plan: 61-year-old female presents from the extended care facility because of onset of severe rash to her right neck as well as low-grade fever and worsening overall status. Patient is evidence of the varicella-zoster of the right neck and upper chest. Classic blistering and tenderness is noted. She had been started on Valtrex and that shall continue. Steroids were not started and will not be initiated at this time. The patient has evidence of the extensive axillary abscesses status post incision and drainage. It is of decreased size with the local care of that she' s been receiving especially with the wound VAC. However now appears to have a secondary infection. Wound VAC is put on hold. We'll place silver dressing into the base. Further cultures obtained Antibiotic therapy with Zosyn will be utilized with covers for the MSSA, strep in the anaerobic gram-negative bacilli that were isolated. Repeat culture is in process. She does have moderate protein calorie malnutrition and will need further improved nutrition to help her healing. It appears that her psychiatric status is stable. Status: Acute (4) MSSA (methicillin susceptible Staphylococcus aureus) infection Status: Acute
[2016-12-31] MEDS ORDERED: DILTIAZEM 125 MG in SODIUM CHLORIDE 0.9% 100 ML IV SCH (02:45)
[2016-12-31] MEDS ORDERED: HEPARIN SODIUM,PORCINE 5,000 UNIT/ML 1 ML VIAL IV ONE (03:31)
[2016-12-31] MEDS ORDERED: HEPARIN SODIUM,PORCINE 5,000 UNIT/ML 1 ML VIAL IV PRN (03:31)
[2016-12-31 03:38] LABS: CH 32.2; CHCM 32.5; HDW 2.48; Immature Gran Flag Marked; MCH 31.1 pg (25.0-35.0); MCHC 31.3 g/dL (31.0-37.0); MCV 99.5 fL (80.0-100.0); Mean Platelet Volume 8.7; RBC 2.61 m/uL (3.80-5.40); RDW 13.5 % (11.5-15.5); WBC 8.1 k/uL (3.8-10.6); WBC (Perox) 8.69
[2016-12-31 03:42] LABS: Anion Gap 9 mmol/L; Blood Urea Nitrogen 24 mg/dL (7-17); Calcium 7.8 mg/dL (8.4-10.2); Carbon Dioxide 23 mmol/L (22-30); Chloride 96 mmol/L (98-107); Glucose 138 mg/dL (74-99); Non-African American GFR(MDRD) >60 (>60 ml/min/1.73 sqM); Potassium 3.7 mmol/L (3.5-5.1); Sodium 128 mmol/L (137-145)
[2016-12-31] MEDS: HEPARIN SODIUM,PORCINE/D5W PMX 25,000 UNIT in DEXTROSE/WATER 1 500ML.BAG IV SCH ×2 (04:13→23:25)
[2016-12-31] MEDS: SODIUM CHLORIDE 0.9% 1,000 ML IV SCH ×3 (04:13→21:23)
[2016-12-31] MEDS: Acetaminophen-Codeine 300-30mg TAB PO PRN ×3 (04:19→23:24)
[2016-12-31 04:21] LABS: INR 1.5 (<1.2); Partial Thromboplastin Time 28.6 sec (22.0-30.0); Prothrombin Time 14.8 sec (9.0-12.0)
[2016-12-31 04:26] LABS: HGB 8.1 gm/dL (11.4-16.0)
[2016-12-31] MEDS: METOPROLOL TARTRATE 25 MG TAB PO SCH ×3 (04:43→21:23)
[2016-12-31 05:07] LABS: Add Differential Manual Differential
[2016-12-31 05:11] LABS: Metamyelocytes % 1 %; Nucleated Red Blood Cells 0 /100 WBC (0-0); Total Cells Counted 200
[2016-12-31 05:12] LABS: Manual Review Performed
[2016-12-31] MEDS: valACYclovir 500 MG TAB PO SCH ×3 (06:34→21:22)
[2016-12-31] MEDS: PANTOPRAZOLE 40 MG TABLET PO SCH (06:34)
[2016-12-31] MEDS: IPRATROPIUM-ALBUTEROL 3 ML NEB INHALATION SCH ×4 (08:15→19:54)
[2016-12-31] MEDS: BUDESONIDE 0.5 MG/2 ML NEBU INHALATION SCH ×2 (08:15→19:54)
[2016-12-31] MEDS: PIPERACILLIN-TAZOBACTAM 3.375 GM in DEXTROSE/WATER 1 50ML.BAG IVPB SCH ×3 (08:36→23:25)
[2016-12-31] MEDS ORDERED: LEVOFLOXACIN 750MG-D5W PMX 750 MG in DEXTROSE/WATER 1 150ML.BAG IVPB SCH (09:00)
[2016-12-31] MEDS ORDERED: FUROSEMIDE 20 MG TAB PO SCH (09:00)
[2016-12-31] MEDS: GABAPENTIN 300 MG CAP PO SCH ×2 (09:01→16:57)
[2016-12-31] MEDS: VIT A,C & E-LUTEIN-MINERALS 1 EACH TAB PO SCH (09:01)
[2016-12-31] MEDS: CHOLECALCIFEROL 1,000 UNIT TAB PO SCH (09:01)
[2016-12-31] MEDS: SENNOSIDES 8.6 MG TAB PO SCH ×2 (09:01→16:57)
[2016-12-31] MEDS: CITALOPRAM HYDROBROMIDE 20 MG TAB PO SCH (09:01)
[2016-12-31] MEDS: LORATADINE 10 MG TAB PO SCH (09:02)
[2016-12-31] MEDS: ASPIRIN 81 MG PO SCH (09:02)
[2016-12-31] MEDS: POTASSIUM CHLORIDE ER 10 MEQ TAB.ER.PRT PO SCH (09:02)
--- NOTE | 2016-12-31 09:38 | P.CRDCN ---
History of Present Illness Consult date: 12/31/16 Chief complaint: Not feeling well History of present illness: This is a pleasant 61-year-old female patient who sees Dr. Jade as an outpatient with a past medical history significant for hypertension with no documentation of any coronary artery disease, congestive heart failure, or cardiac arrhythmia, presented to the hospital because she was not feeling well. The patient presented to the hospital with generalized weakness and fatigue as well as cough and fever. She had an insect bite a few weeks ago complicated by large abscess in the axilla on the left side. Currently the patient is on antibiotic but she is slightly hypotensive with heart rate in the 80s. We get involved in the care of the patient because during her hospitalization she went into an A. fib and subsequently she was started on Cardizem and drip and converted to normal sinus mechanism. The Cardizem drip was stopped because the patient was hypotensive. The patient has been maintaining normal sinus mechanism. She is not aware of any prior history of atrial fibrillation. Currently she is on metoprolol at 25 mg by mouth 3 times a day and also she is on heparin IV. Blood pressure is low but she is on IV fluid. She is on Lasix by mouth which I am going to stop at this point. Also I will obtain an echocardiogram was Doppler. Past Medical History Past Medical History: Asthma, Coronary Artery Disease (CAD), Cancer, Chest Pain / Angina, CVA/TIA, Eye Disorder, GERD/Reflux, Hyperlipidemia, Hypertension Additional Past Medical History / Comment(s): Pt recently admitted to [facility] on with allergic reaction possibly to insect bite, exacerbation of asthma, respiratory failure, L axillae cellulitis-cultures grew peptostreptococcus and MSSA-had I&D and has wound vac. 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 History of Any Multi-Drug Resistant Organisms: None Reported Past Surgical History: Adenoidectomy, Back Surgery, Cholecystectomy, Ear Surgery , Heart Catheterization, Hysterectomy, Tonsillectomy Additional Past Surgical History / Comment(s): I & D L axillae, L eye surgery for laxy eye, bilateral cataract removal, bilateral myringotomy/tubes, colonoscopy, cardiac cath on 07/24/2016 with moderate stenosis of LAD noted - no stenting at that time recommend medical management and return for angioplasty if sx persist Past Anesthesia/Blood Transfusion Reactions: No Reported Reaction Additional Psychological History / Comment(s): Is normally a resident of a [facility] Smoking Status: Never smoker - Past Family History Mother Family Medical History: Myocardial Infarction ([place]) Additional Family Medical History / Comment(s): Mother at 72 yrs. Father Family Medical History: Cancer Additional Family Medical History / Comment(s): throat CA. Father at 72 yrs. Brother(s) Family Medical History: Cancer Additional Family Medical History / Comment(s): liver Medications and Allergies Home Medications Medication Instructions Recorded Confirmed Type Cholecalciferol [Vitamin D3] 2,000 unit PO DAILY 08/06/14 12/30/16 History Citalopram Hydrobromide 40 mg PO DAILY 08/06/14 12/30/16 History [Citalopram HBr] Cyanocobalamin [Vitamin B-12] 1,000 mcg PO Q48H 08/06/14 12/30/16 History Gabapentin [Neurontin] 300 mg PO BID@0900,1700 07/21/16 12/30/16 History Loratadine [Claritin] 10 mg PO DAILY 07/21/16 12/30/16 History Sennosides [Senna] 8.6 mg PO BID@0900,1700 07/21/16 12/30/16 History Nitroglycerin Sl Tabs [Nitrostat] 0.4 mg SUBLINGUAL Q5M PRN 07/22/16 12/30/16 History Aspirin EC [Ecotrin Low Dose] 81 mg PO DAILY 07/27/16 12/30/16 History Calcium Carbonate [Tums] 500 mg PO TID PRN 07/27/16 12/30/16 History QUEtiapine [SEROquel] 400 mg PO HS 07/27/16 12/30/16 History Acetaminophen [Tylenol 8 Hour] 650 mg PO Q4H PRN 12/30/16 12/30/16 History Acetaminophen-Codeine 300-30mg 1 tab PO Q8H PRN 12/30/16 12/30/16 History [Tylenol #3] Albuterol Nebulized [Ventolin 2.5 mg INHALATION RT-Q6H PRN 12/30/16 12/30/16 History Nebulized] Amino Acids/Protein Hydrolys 30 ml PO BID 12/30/16 12/30/16 History [Pro-Stat Supplement] Atorvastatin [Lipitor] 10 mg PO HS 12/30/16 12/30/16 History Calamine/Zinc Oxide Lotion 1 applic TOPICAL Q6H PRN 12/30/16 12/30/16 History [Calamine Lotion] Dimethicone/Zinc Oxide [Inzo Zinc 1 applic TOPICAL DIRECTED PRN 12/30/1602/07 History Oxide Barrier Cream] Dimethicone/Zinc Oxide [Inzo Zinc 1 applic TOPICAL Q12H 12/30/16 12/30/16 History Oxide Barrier Cream] Ferrous Sulfate [Feosol] 325 mg PO DAILY@1700 12/30/16 12/30/16 History Omeprazole 20 mg PO AC-BRKFST 12/30/16 12/30/16 History Ondansetron [Zofran] 4 mg PO Q8HR PRN 12/30/16 12/30/16 History Potassium Chloride [Klor-Con 10] 10 meq PO DAILY 12/30/16 12/30/16 History Potassium Chloride [Klor-Con 20] 20 meq PO DIRECTED 12/30/16 12/30/16 History Vit C/E/Zn/Coppr/Lutein/Zeaxan 1 cap PO DAILY 12/30/16 12/30/16 History [Preservision Areds 2 Softgel] ceFAZolin [Kefzol] 2 gm IV TID@0600,1400,2200 12/30/16 12/30/16 History valACYclovir [Valtrex] 1,000 mg PO TID@0600,1400,2200 12/30/16 12/30/16 History Allergies Allergy/AdvReac Type Severity Reaction Status Date / Time bee venom protein (honey bee) Allergy Anaphylaxis Verified 12/30/16 06:57 Physical Exam Vitals: Vital Signs Temp Pulse Pulse Resp BP Pulse Ox 12/31/16 08:40 83 16 93/53 95 12/31/16 08:29 100 12/31/16 08:17 101 H 12/31/16 06:05 82/51 12/31/16 05:55 95/59 12/31/16 05:45 95/51 12/31/16 04:30 101 H 16 12/31/16 04:29 99.0 F 101 H 16 80/52 95 12/31/16 01:51 98.6 F 166 H 17 114/86 96 12/31/16 01:45 18 12/31/16 00:00 17 12/30/16 23:34 101.5 F H 12/30/16 21:31 99.5 F 12/30/16 20:21 112 H 12/30/16 20:01 115 H 12/30/16 20:00 17 12/30/16 19:25 101.8 F H 128 H 17 116/64 95 12/30/16 16:00 118 H 12/30/16 15:52 110 H 12/30/16 15:39 108 H 12/30/16 15:05 98.3 F 118 H 18 130/57 97 12/30/16 09:51 92 12/30/16 09:35 92 Intake and Output 12/30/16 12/31/16 12/31/16 22:59 06:59 14:59 Intake Total 353.417 Balance 353.417 Intake: Intake, IV Titration 353.417 Amount Diltiazem 125 mg In 13.417 Sodium Chloride 0.9% 100 ml @ 5 MG/HR 5 mls/hr IV .Q24H [facility] Rx#:[id number] Heparin Sodium,Porcine/ 40 D5w Pmx 25,000 unit In Dextrose/Water 1 500ml. bag @ 10.1 UNITS/KG/HR 20 .06 mls/hr IV .Q24H [facility] Rx#:[id number] Sodium Chloride 0.9% 1, 300 000 ml @ 100 mls/hr IV . Q10H [facility]ADA Rx#:[id number] Other: Voiding Method Incontinent Incontinent # Voids 2 1 - Constitutional General appearance: no acute distress - Respiratory Respiratory: bilateral: diminished - Cardiovascular Rhythm: regular Heart sounds: normal: S1, S2 Results 12/31/16 03:00 12/31/16 03:00 Coagulation 12/31/16 Range/Units 03:49 PT 14.8 H (9.0-12.0) sec APTT 28.6 (22.0-30.0) sec CBC 12/31/16 Range/Units 03:00 WBC 8.1 (3.8-10.6) k/uL RBC 2.61 L (3.80-5.40) m/uL Hgb 8.1 L D (11.4-16.0) gm/dL Hct 26.0 L (34.0-46.0) % Plt Count 147 L (150-450) k/uL Comprehensive Metabolic Panel 12/31/16 Range/Units 03:00 Sodium 128 L (137-145) mmol/L Potassium 3.7 (3.5-5.1) mmol/L Chloride 96 L (98-107) mmol/L Carbon Dioxide 23 (22-30) mmol/L BUN 24 H (7-17) mg/dL Creatinine 0.80 (0.52-1.04) mg/dL Glucose 138 H (74-99) mg/dL Calcium 7.8 L (8.4-10.2) mg/dL Current Medications Generic Name Dose Route Start Last Admin Trade Name Freq PRN Reason Stop Dose Admin Acetaminophen/Codeine Phosphate 1 each 12/30/16 12:39 12/31/16 04:19 Tylenol #3 PO 1 each Q8H PRN Administration mild/moderate pain Albuterol Sulfate 2.5 mg 12/30/16 12:39 Ventolin Nebulized INHALATION RT-Q6H PRN Shortness Of Breath Or Wheezing Albuterol/Ipratropium 3 ml 12/30/16 08:00 12/31/16 08:15 Duoneb 0.5 Mg-3 Mg/3 Ml Soln INHALATION 3 ml RT-QID AMADA Administration Aspirin 81 mg 12/30/16 13:00 12/31/16 09:02 Aspirin PO 81 mg DAILY AMADA Administration Atorvastatin Calcium 10 mg 12/30/16 21:00 12/30/16 21:20 Lipitor PO 10 mg HS AMADA Administration Budesonide 0.5 mg 12/30/16 20:00 12/31/16 08:15 Pulmicort INHALATION 0.5 mg RT-BID AMADA Administration Calamine 1 applic 12/30/16 12:39 Calamine Lotion TOPICAL Q6H PRN shoulder/chest rash Calcium Carbonate/Glycine 500 mg 12/30/16 12:39 Tums PO TID PRN Indigestion Cholecalciferol 2,000 unit 12/31/16 09:00 12/31/16 09:01 Vitamin D3 PO 2,000 unit DAILY [facility]ADA Administration Citalopram Hydrobromide 40 mg 12/30/16 13:05 12/31/16 09:01 Celexa PO 40 mg DAILY [facility]ADA Administration Cyanocobalamin 1,000 mcg 12/30/16 13:00 12/30/16 16:09 Vitamin B-12 PO 1,000 mcg Q48H [facility]ADA Administration Ferrous Sulfate 325 mg 12/30/16 17:00 12/30/16 16:08 Feosol PO 325 mg DAILY@1700 [facility]ADA Administration Gabapentin 300 mg 12/30/16 17:00 12/31/16 09:01 Neurontin PO 300 mg BID@0900,1700 [facility]ADA Administration Heparin Sodium (Porcine) 0 unit 12/31/16 03:31 Heparin IV PER PROTOCOL PRN Low PTT Protocol Levofloxacin 750 mg/ IV 150 mls @ 100 mls/hr 12/31/16 09:00 Solution IVPB 01/12/17 09:01 Q24H AMADA Piperacillin/Tazobactam/ 50 mls @ 12.5 mls/hr 12/30/16 08:00 12/31/16 08:36 Dextrose 3.375 gm/ IV Solution IVPB 01/09/17 08:01 12.5 mls/hr Q8HR AMADA Administration Sodium Chloride 1,000 mls @ 100 mls/hr 12/30/16 02:45 12/31/16 09:02 Saline 0.9% IV 100 mls/hr .Q10H AMADA Administration Heparin Sodium/Dextrose 25,000 500 mls @ 20.06 mls/hr 12/31/16 03:45 04:13 unit/ IV Solution IV 10.1 units/kg/hr .Q24H [facility]ADA 20.06 mls/hr Protocol Administration 10.1 UNITS/KG/HR Loratadine 10 mg 12/30/16 12:45 12/31/16 09:02 Claritin PO 10 mg DAILY AMADA Administration Metoprolol Tartrate 25 mg 12/30/16 16:00 12/31/16 04:43 Lopressor PO 25 mg TID AMADA Administration Miscellaneous Information 1 each 12/30/16 02:37 Pneumonia Protocol Utilized PO ONCE PRN Per Protocol Multi-Ingredient Ointment 1 applic 12/30/16 13:00 12/30/16 23:36 Zinc Oxide 20% Oint TOPICAL 1 applic Q12H [facility]ADA Administration Multivitamins/Minerals 1 each 12/30/16 12:45 12/31/16 09:01 Ivite PO 1 each DAILY [facility]ADA Administration Nitroglycerin 0.4 mg 12/30/16 12:39 Nitrostat SUBLINGUAL Q5M PRN Chest Pain Ondansetron HCl 4 mg 12/30/16 17:36 12/30/16 17:48 Zofran IVP 4 mg Q6HR PRN Administration Nausea And Vomiting Pantoprazole Sodium 40 mg 12/30/16 12:45 12/31/16 06:34 Protonix PO 40 mg AC-BRKFST AMADA Administration Potassium Chloride 10 meq 12/30/16 12:45 12/31/16 09:02 K-Dur 10 PO 10 meq DAILY AMADA Administration Quetiapine Fumarate 400 mg 12/30/16 21:00 12/30/16 21:20 Seroquel PO 400 mg HS AMADA Administration Senna 8.6 mg 12/30/16 17:00 12/31/16 09:01 Senokot PO 8.6 mg BID@0900,1700 AAMDA Administration Valacyclovir HCl 1,000 mg 12/30/16 14:00 12/31/16 06:34 Valtrex PO 1,000 mg TID@0600,1400,2200 AMADA Administration Intake and Output 12/30/16 12/31/16 12/31/16 22:59 06:59 14:59 Intake Total 353.417 Balance 353.417 Intake: Intake, IV Titration 353.417 Amount Diltiazem 125 mg In 13.417 Sodium Chloride 0.9% 100 ml @ 5 MG/HR 5 mls/hr IV .Q24H [facility]ADA Rx#:[id number] Heparin Sodium,Porcine/ 40 D5w Pmx 25,000 unit In Dextrose/Water 1 500ml. bag @ 10.1 UNITS/KG/HR 20 .06 mls/hr IV .Q24H [facility]ADA Rx#:[id number] Sodium Chloride 0.9% 1, 300 000 ml @ 100 mls/hr IV . Q10H [facility]ADA Rx#:[id number] Other: Voiding Method Incontinent Incontinent # Voids 2 1 12/31/16 03:00 12/31/16 03:00 Assessment and Plan Plan: This is a pleasant 61-year-old female patient who was admitted to the hospital with what it seems to be sepsis and currently she is on antibiotic. She developed an A. fib with RVR and converted to normal sinus mechanism. This is a newly diagnosed age of patient. I will continue the current dose of metoprolol which is 25 mg by mouth 3 times a day. Continue the heparin drip at this point. Obtain an echocardiogram was Doppler. Follow-up with the patient. I'm going to DC the Lasix in view of the low blood pressure.
[2016-12-31] MEDS ORDERED: Magnesium Replacement Protocol 1 EACH MISC MISCELLANE PRN (10:36)
[2016-12-31] MEDS ORDERED: Potassium Replacement Protocol 1 EACH MISC MISCELLANE PRN (10:36)
[2016-12-31] MEDS ORDERED: POTASSIUM CHLORIDE ER 20 MEQ TAB.ER PO SCH (11:00)
[2016-12-31] MEDS: MAGNESIUM SULFATE-D5W PMX 1 GM in DEXTROSE/WATER 1 100ML.BAG IVPB SCH ×3 (11:13→14:25)
--- NOTE | 2016-12-31 11:47 | ECHOF ---
Referral Reason:a.fib MEASUREMENTS -------- HEIGHT: 162.6 cm WEIGHT: 99.3 kg BP: 93/53 RVIDd: 2.4 cm (< 3.3) IVSd: 1.0 cm (0.6 - 1.1) LVIDd: 4.5 cm (3.9 - 5.3) LVPWd: 1.0 cm (0.6 - 1.1) IVSs: 1.3 cm LVIDs: 2.7 cm LVPWs: 1.3 cm LAESV Index (A-L): 25.35 ml/m Ao Diam: 2.7 cm (2.0 - 3.7) AV Cusp: 1.7 cm (1.5 - 2.6) LA Diam: 3.1 cm (2.7 - 3.8) MV EXCURSION: 20.130 mm (> 18.000) MV EF SLOPE: 116 mm/s (70 - 150) EPSS: 0.6 cm MV E Ike: 1.04 m/s MV DecT: 224 ms MV A Ike: 0.81 m/s MV E/A Ratio: 1.28 RAP: 5.00 mmHg RVSP: 33.51 mmHg FINDINGS -------- Sinus rhythm. This was a technically difficult study with suboptimal views. Overall left ventricular systolic function is normal with, an EF between 55 - 60 %. The right ventricle is normal in size and function. Normal LA size by volume 22+/-6 ml/m2. The right atrium is normal in size. 1.5mg of Definity was utilized for enhancement of images Aortic valve is trileaflet and is mildly thickened. There is no evidence of aortic regurgitation. There is no evidence of aortic stenosis. The mitral valve leaflets are mildly thickened. There is trace to mild mitral regurgitation. Trace tricuspid regurgitation present. There is no evidence of pulmonary hypertension. The right ventricular systolic pressure, as measured by Doppler, is 33.51mmHg. Trace/mild (physiologic) pulmonic regurgitation. The aortic root size is normal. Normal inferior vena cava with normal inspiratory collapse consistent with estimated right atrial pressure of 5 mmHg. The pericardium is normal. There is no pericardial effusion. CONCLUSIONS -------- 1. Sinus rhythm. 2. There is no evidence of pulmonary hypertension. 3. The right ventricular systolic pressure, as measured by Doppler, is 33.51mmHg. 4. Trace/mild (physiologic) pulmonic regurgitation. 5. The aortic root size is normal. 6. There is no pericardial effusion. 7. This was a technically difficult study with suboptimal views. 8. Overall left ventricular systolic function is normal with, an EF between 55 - 60 %. 9. Normal LA size by volume 22+/-6 ml/m2. 10. 1.5mg of Definity was utilized for enhancement of images 11. Aortic valve is trileaflet and is mildly thickened. 12. The mitral valve leaflets are mildly thickened. 13. There is trace to mild mitral regurgitation. 14. Trace tricuspid regurgitation present. SPARE PERSON: Manny Kaba RDCS
--- NOTE | 2016-12-31 13:55 | CDI ---
In responding to this query, please exercise your independent professional judgment. The [facility] Coding Staff and Clinical Documentation Specialists appreciate your assistance in clarifying documentation, maintaining compliance with coding guidelines, accurately documenting patients condition and capturing severity of illness. The fact that a question is asked does not imply that any particular answer is desired or expected. Communication forms are a method of clarifying documentation and are not made part of the Legal Health Record. Thank you in advance for your clarification. Last Revision, March 2015 Donta Brian [address] [place] [address] Documentation Clarification Form Date: 12/31/2016 1:45:00 PM From: Michaelle Shipley CCS, CCDS Admit Date: 12/30/2016 2:37:00 AM Patient Name: Diana Corey Visit Number: [id number] Discharge Date: Dr. Sukhdev Stevenson: Atrial fibrillation is documented in the cardiology consult as: We get involved in the care of the patient because during her hospitalization she went into an A. fib and subsequently she was started on Cardizem drip and converted to normal sinus mechanism. The Cardizem drip was stopped because the patient was hypotensive. The patient has been maintaining normal sinus mechanism. History: CAD w/known lesion, GERD, Hypertension, Hyperlipidemia. Clinical Indicators: 61 yo female. Presented with difficulty breathing & cough, has wound VAC for left axillary abscess, possibly new abscess. EKG/telemetry: R 108 sinus tachycardia. Treatment: Heparin drip started 12/31, Cardizem drip initially, O2 2Lnc, Cardiology consult. In your professional opinion, can you please clarify the type of atrial fibrillation, if known? Chronic/Permanent Paroxysmal Persistent Other, please specify Unable to determine Please document in your progress notes and discharge summary in order to capture severity of illness and risk of mortality. Include clinical findings that support your diagnosis. FYI: Press F11 to launch patient chart MTDD
--- NOTE | 2016-12-31 15:03 | XR ---
EXAMINATION TYPE: XR chest 1V portable DATE OF EXAM: 12/31/2016 COMPARISON: 12/30/2016 HISTORY: Pneumonia TECHNIQUE: Single frontal view of the chest is obtained. FINDINGS: Right-sided PICC line is noted is postsurgical change overlying the cervical spine. Heart is enlarged and there are surgical clips in the right upper quadrant of the abdomen. No overt congest ion or pneumothorax. No pleural effusion. IMPRESSION: 1. No acute infiltrate.
[2016-12-31] MEDS: FERROUS SULFATE 325 MG TAB PO SCH (16:57)
[2016-12-31] MEDS: ZINC OXIDE 20% OINT 28.4 GM TUBE TOPICAL SCH (16:58)
--- NOTE | 2016-12-31 20:20 | P.PN ---
Subjective Principal diagnosis: Pain to right neck 61-year-old female presents to the emergency center from the [facility] care facility where she has been receiving care for her significant abscess to her left axillary area status post incision and drainage. Apparently she started to have change in the drainage despite the wound VAC. She is having some increasing discomfort. She was becoming weak and tired. She then developed a significant rash that started at the base of the neck to the right side. It was a blistering rash that was extremely painful. She believes she had a low-grade fever. Because of her acute changes status she was sent to the emergency center and was admitted. With evidence of the significant rash and the ongoing infection to the left axillary area the infectious diseases consultation was requested. At this time she seems a bit more awake and alert than admission. She is able to relate to some pain at the left axillary area but it is not severe at this time. The wound VAC was minimally uncomfortable. She relates that her great amount of pain is to the right neck where she has the blistering rash. Does not believe she's had a high-grade fever or chills. Feels quite poorly overall. She's had some nausea without emesis. She denying significant abdominal pain at this time. She is not having significant cough or sputum production no hemoptysis. Feels slightly better today. Objective - Vital Signs Vital signs: Vital Signs Temp 97 F L 12/31/16 17:04 Pulse 88 12/31/16 20:03 Resp 16 12/31/16 17:04 BP 126/70 12/31/16 17:04 Pulse Ox 94 L 12/31/16 17:04 Intake & Output 12/31/16 12/31/16 01/01/17 06:59 18:59 06:59 Intake Total 429.176 6594.775 120 Output Total 300 Balance 790.154 7553.775 120 Intake: IV 160 Heparin Sodium,Porcine/ 160 D5w Pmx 25,000 unit In Dextrose/Water 1 500ml. bag @ 10.1 UNITS/KG/HR 20 .06 mls/hr IV .Q24H [facility] Rx#:[id number] Intake, IV Titration 369.676 5434.775 Amount Diltiazem 125 mg In 13.417 Sodium Chloride 0.9% 100 ml @ 5 MG/HR 5 mls/hr IV .Q24H [facility] Rx#:[id number] Heparin Sodium,Porcine/ 40 147.775 D5w Pmx 25,000 unit In Dextrose/Water 1 500ml. bag @ 10.1 UNITS/KG/HR 20 .06 mls/hr IV .Q24H [facility] Rx#:[id number] Levofloxacin 750Mg-D5w 150 Pmx 750 mg In Dextrose/ Water 1 150ml.bag @ 100 mls/hr IVPB Q24H [facility] Rx#: [id number] Magnesium Sulfate-D5w Pmx 300 1 gm In Dextrose/Water 1 100ml.bag @ 100 mls/hr IVPB Q1H [facility] Rx#: [id number] Piperacillin-Tazobactam 3 100 .375 gm In Dextrose/Water 1 50ml.bag @ 12.5 mls/hr IVPB Q8HR [facility] Rx#: [id number] Sodium Chloride 0.9% 1, 300 800 000 ml @ 100 mls/hr IV . Q10H [facility] Rx#:[id number] Oral 120 Output: Urine 300 Other: Voiding Method Incontinent Incontinent # Voids 1 2 - Exam 61-year-old woman who appears older than her stated age. More interactive than during her last hospital stay. But his still compromised. HEENT: Anicteric conjunctiva are pink and moist nasal mucosa grossly intact without significant lesions, there is no thrush. Oral mucosa is dry Neck: The neck is supple without significant lymphadenopathy or thyromegaly. Lungs: Good bilateral air entry without significant crackles or wheezing. There is no significant bronchial sounds. There is no egophony or dullness. Heart: Regular rate and rhythm with an audible S1-S2, no S3 no S4. There is no significant murmur click or rub, PMI was nondisplaced. Abdomen: Positive bowel sounds soft and nontender without palpable masses or organomegaly. There was no guarding or rebound. Extremities: The upper extremities have excellent pulses they are symmetric, no significant petechiae or telangiectasia. No splinter hemorrhages were noted. The left axillary area is evidence of site of the incision and drainage. The large cavity is noted. Please see the nursing photography for its site in measurement. There is evidence of some purulence at the base. Cultures have been obtained. Wound VAC was removed. Area was cleansed with saline and dressing is applied. It is slightly tender but not severely so. Skin: Evidence of the dermatomal rash onto the right neck onto the anterior chest wall. It does not penetrate over the midline of the shoulder. It is with vesicles are quite tender minimal erythema. Neuro: Arousable did interaction to some simple questions. More interactive than her last visit however. - Labs CBC & Chem 7: 12/31/16 03:00 12/31/16 03:00 Labs: Abnormal Lab Results - Last 24 Hours (Table) 12/31/16 12/31/16 12/31/16 Range/Units 03:00 03:00 03:00 RBC 2.61 L (3.80-5.40) m/uL Hgb 8.1 L D (11.4-16.0) gm/dL Hct 26.0 L (34.0-46.0) % Plt Count 147 L (150-450) k/uL Lymphocytes # (Manual) 0.97 L (1.0-4.8) k/uL PT (9.0-12.0) sec INR (<1.2) APTT (22.0-30.0) sec Sodium 128 L (137-145) mmol/L Chloride 96 L (98-107) mmol/L BUN 24 H (7-17) mg/dL Glucose 138 H (74-99) mg/dL Calcium 7.8 L (8.4-10.2) mg/dL Magnesium 1.0 L* (1.6-2.3) mg/dL 12/31/16 12/31/16 12/31/16 Range/Units 03:49 10:52 18:03 RBC (3.80-5.40) m/uL Hgb (11.4-16.0) gm/dL Hct (34.0-46.0) % Plt Count (150-450) k/uL Lymphocytes # (Manual) (1.0-4.8) k/uL PT 14.8 H (9.0-12.0) sec INR 1.5 H (<1.2) APTT 43.4 H 62.0 H (22.0-30.0) sec Sodium (137-145) mmol/L Chloride (98-107) mmol/L BUN (7-17) mg/dL Glucose (74-99) mg/dL Calcium (8.4-10.2) mg/dL Magnesium (1.6-2.3) mg/dL Microbiology - Last 24 Hours (Table) 12/30/16 03:15 Gram Stain - Preliminary Axilla - Left Wound Culture - Preliminary 12/30/16 08:30 Urine Culture - Final Urine,Voided 12/30/16 01:20 Blood Culture - Preliminary Blood No Growth after 24 hours Laboratory Results WBC 8.1 k/uL (3.8-10.6) 12/31/16 03:00 RBC 2.61 m/uL (3.80-5.40) L 12/31/16 03:00 Hgb 8.1 gm/dL (11.4-16.0) L D 12/31/16 03:00 Hct 26.0 % (34.0-46.0) L 12/31/16 03:00 MCV 99.5 fL (80.0-100.0) 12/31/16 03:00 MCH 31.1 pg (25.0-35.0) 12/31/16 03:00 MCHC 31.3 g/dL (31.0-37.0) 12/31/16 03:00 RDW 13.5 % (11.5-15.5) 12/31/16 03:00 Plt Count 147 k/uL (150-450) L 12/31/16 03:00 Neutrophils % 82 % 12/30/16 01:20 Neutrophils % (Manual) 51 % 12/31/16 03:00 Band Neutrophils % 33.0 % 12/31/16 03:00 Lymphocytes % 14 % 12/30/16 01:20 Lymphocytes % (Manual) 12 % 12/31/16 03:00 Monocytes % 3 % 12/30/16 01:20 Monocytes % (Manual) 3 % 12/31/16 03:00 Eosinophils % 0 % 12/30/16 01:20 Basophils % 0 % 12/30/16 01:20 Metamyelocytes % 1 % 12/31/16 03:00 Neutrophils # 8.2 k/uL (1.3-7.7) H 12/30/16 01:20 Neutrophils # (Manual) 6.80 k/uL (1.3-7.7) 12/31/16 03:00 Lymphocytes # 1.4 k/uL (1.0-4.8) 12/30/16 01:20 Lymphocytes # (Manual) 0.97 k/uL (1.0-4.8) L 12/31/16 03:00 Monocytes # 0.3 k/uL (0-1.0) 12/30/16 01:20 Monocytes # (Manual) 0.24 k/uL (0-1.0) 12/31/16 03:00 Eosinophils # 0.0 k/uL (0-0.7) 12/30/16 01:20 Basophils # 0.0 k/uL (0-0.2) 12/30/16 01:20 Nucleated RBCs 0 /100 WBC (0-0) 12/31/16 03:00 Manual Slide Review Performed 12/31/16 03:00 PT 14.8 sec (9.0-12.0) H 12/31/16 03:49 INR 1.5 (<1.2) H 12/31/16 03:49 APTT 62.0 sec (22.0-30.0) H 12/31/16 18:03 Sodium 128 mmol/L (137-145) L 12/31/16 03:00 Potassium 3.7 mmol/L (3.5-5.1) 12/31/16 03:00 Chloride 96 mmol/L (98-107) L 12/31/16 03:00 Carbon Dioxide 23 mmol/L (22-30) 12/31/16 03:00 Anion Gap 9 mmol/L 12/31/16 03:00 BUN 24 mg/dL (7-17) H 12/31/16 03:00 Creatinine 0.80 mg/dL (0.52-1.04) 12/31/16 03:00 Est GFR (MDRD) Af Amer >60 (>60 ml/min/1.73 sqM) 12/31/16 03:00 Est GFR (MDRD) Non-Af >60 (>60 ml/min/1.73 sqM) 12/31/16 03:00 Glucose 138 mg/dL (74-99) H 12/31/16 03:00 Plasma Lactic Acid [place]on 1.4 mmol/L (0.7-2.0) 12/31/16 02:50 Calcium 7.8 mg/dL (8.4-10.2) L 12/31/16 03:00 Phosphorus 2.8 mg/dL (2.5-4.5) 12/30/16 01:20 Magnesium 1.0 mg/dL (1.6-2.3) L* 12/31/16 03:00 Total Bilirubin 0.6 mg/dL (0.2-1.3) 12/30/16 01:20 AST 25 U/L (14-36) 12/30/16 01:20 ALT 24 U/L (9-52) 12/30/16 01:20 Alkaline Phosphatase 116 U/L (38-126) 12/30/16 01:20 Total Creatine Kinase <20 U/L (30-135) L 12/30/16 01:20 CK-MB (CK-2) 0.4 ng/mL (0.0-2.4) 12/30/16 01:20 CK-MB (CK-2) Rel Index 0.0 12/30/16 01:20 Troponin I <0.012 ng/mL (0.000-0.034) 12/30/16 01:20 Total Protein 5.8 g/dL (6.3-8.2) L 12/30/16 01:20 Albumin 2.8 g/dL (3.5-5.0) L 12/30/16 01:20 Urine Color Yellow 12/30/16 08:30 Urine Appearance Cloudy (Clear) H 12/30/16 08:30 Urine pH 6.0 (5.0-8.0) 12/30/16 08:30 Ur Specific [place] 1.019 (1.001-1.035) 12/30/16 08:30 Urine Protein 1+ (Negative) H 12/30/16 08:30 Urine Glucose (UA) Negative (Negative) 12/30/16 08:30 Urine Ketones Trace (Negative) H 12/30/16 08:30 Urine Blood Negative (Negative) 12/30/16 08:30 Urine Nitrite Negative (Negative) 12/30/16 08:30 Urine Bilirubin Negative (Negative) 12/30/16 08:30 Urine Urobilinogen <2.0 mg/dL (<2.0) 12/30/16 08:30 Ur Leukocyte Esterase Moderate (Negative) H 12/30/16 08:30 Urine RBC 5 /hpf (0-5) 12/30/16 08:30 Urine WBC 19 /hpf (0-5) H 12/30/16 08:30 Ur Squamous Epith Cells 9 /hpf (0-4) H 12/30/16 08:30 Calcium Oxalate Crystal Occasional /hpf (None) H 12/30/16 08:30 Urine Mucus Rare /hpf (None) H 12/30/16 08:30 Urine Yeast (Budding) Many /hpf (None) H 12/30/16 08:30 Microbiology 12/30/16 03:15 Axilla - Left Gram Stain - Preliminary 12/30/16 03:15 Axilla - Left Wound Culture - Preliminary 12/30/16 08:30 Urine,Voided Urine Culture - Final 12/30/16 01:20 Blood Blood Culture - Preliminary No Growth after 24 hours Assessment and Plan (1) Varicella zoster Status: Acute (2) Schizo affective schizophrenia Status: Acute (3) Abscess of axilla, left Narrative/Plan: 61-year-old female presents from the extended care facility because of onset of severe rash to her right neck as well as low-grade fever and worsening overall status. Patient is evidence of the varicella-zoster of the right neck and upper chest. Classic blistering and tenderness is noted. She had been started on Valtrex and that shall continue. Steroids were not started and will not be initiated at this time. The patient has evidence of the extensive axillary abscesses status post incision and drainage. It is of decreased size with the local care of that she' s been receiving especially with the wound VAC. However now appears to have a secondary infection. Wound VAC is put on hold. We'll place silver dressing into the base. Further cultures obtained Antibiotic therapy with Zosyn will be utilized with covers for the MSSA, strep in the anaerobic gram-negative bacilli that were isolated. Repeat culture is in process. She does have moderate protein calorie malnutrition and will need further improved nutrition to help her healing. It appears that her psychiatric status is stable. Status: Acute (4) MSSA (methicillin susceptible Staphylococcus aureus) infection Status: Acute
--- NOTE | 2016-12-31 20:22 | PN ---
DATE OF SERVICE: 12/31/2016 PRESENTING COMPLAINT: Shingles. INTERVAL HISTORY: This is a patient who was recently in the hospital with right axilla abscess with a wound V.A.C., readmitting with fever, supposed to be secondarily infected; also has shingles, for which she is on Valtrex. Patient appears more relaxed today. Did tolerate some diet. Patient last night had atrial fibrillation with rapid ventricular rate; has gone back into sinus rhythm ; hence moved to the telemetry floor. Lying in bed. Review of systems done for constitutional, cardiovascular, GI, pulmonary; relevant findings as above. Current medications are reviewed and include IV heparin, IV Levaquin, IV Zosyn and Valtrex. On examination, T-max 101.5, pulse 83, respiration 16, blood pressure 93/53, pulse ox 97% on nasal cannula. GENERAL APPEARANCE: Lying in bed. Tired-appearing. EYES: Pupils equal. Conjunctivae normal. NECK: JVD not raised. Mass not palpable. RESPIRATORY: Effort normal. LUNGS: Decreased breath sounds. CARDIOVASCULAR: First and second sounds normal. DERMATOLOGICAL: Patient has herpetic rash on the right side of the neck and the right upper chest wall with tender blisters. Dressing on the left axilla area. INVESTIGATIONS: Telemetry shows back in sinus rhythm. White count 8.1, hemoglobin 8.1. Sodium 128, potassium 3.7. Magnesium 1.0. ASSESSMENT: 1. Left axilla abscess with I&D on the last admission with secondary infection. 2. Intermittent asthma. 3. Paroxysmal atrial fibrillation, back into sinus rhythm. 4. Coronary artery disease with non-obstructive 50% LAD lesion. 5. Gastroesophageal reflux disease. 6. Essential hypertension. 7. Hyperlipidemia. 8. Metabolic alkalosis. 9. Chronic tardive dyskinesia. 10. Schizoaffective disorder, chronic. 11. Anxiety disorder, not otherwise specified. 12. Peripheral neuropathy, idiopathic. 13. CODE STATUS: FULL. 14. Herpes zoster, type II, acute, in the neck and upper chest wall area. PLAN: Antibiotics per Dr. Elmore. Patient looks a little bit settled. Cardiology was consulted. Patient is on IV heparin. Probably this is very brief ; will not need longer anticoagulation. Care was discussed with the patient. Dr. Elmore has held off the wound V.A.C. for right now. Given this short spell of atrial fibrillation, anticoagulation is not indicated. Beta kathy is appropriate. Keep a close eye on her blood pressure. Will follow. KRYSTYNA
[2016-12-31] MEDS: ATORVASTATIN 10 MG TAB PO SCH (21:22)
[2016-12-31] MEDS: QUEtiapine 400 MG TAB PO SCH (21:22)
[2017-01-01] MEDS: ZINC OXIDE 20% OINT 28.4 GM TUBE TOPICAL SCH ×2 (01:59→15:48)
[2017-01-01] MEDS: PANTOPRAZOLE 40 MG TABLET PO SCH (06:32)
[2017-01-01] MEDS: valACYclovir 500 MG TAB PO SCH (06:32)
[2017-01-01] MEDS: SODIUM CHLORIDE 0.9% 1,000 ML IV SCH ×2 (06:32→15:48)
[2017-01-01] MEDS: Acetaminophen-Codeine 300-30mg TAB PO PRN ×3 (06:35→23:01)
[2017-01-01 06:46] LABS: Basophils % (A) 0 %; CH 31.8; CHCM 31.2; Eosinophils % (A) 0 %; HCT 23.9 % (34.0-46.0); HDW 2.47; HGB 7.4 gm/dL (11.4-16.0); Hypochromasia Slight; Luc # (Auto) 0.16; Luc % (Auto) 2; Lymphocytes # (A) 0.9 k/uL (1.0-4.8); Lymphocytes % (A) 11 %; MCH 31.9 pg (25.0-35.0); MCHC 31.1 g/dL (31.0-37.0); MCV 102.6 fL (80.0-100.0); Macrocytosis Slight; Mean Platelet Volume 8.9; Monocytes # (A) 0.1 k/uL (0-1.0); Monocytes % (A) 2 %; Neutrophils % (A) 85 %; RBC 2.33 m/uL (3.80-5.40); RDW 13.7 % (11.5-15.5); WBC 8.3 k/uL (3.8-10.6); WBC (Perox) 8.96
[2017-01-01] MEDS: IPRATROPIUM-ALBUTEROL 3 ML NEB INHALATION SCH ×4 (08:24→20:05)
[2017-01-01] MEDS: BUDESONIDE 0.5 MG/2 ML NEBU INHALATION SCH ×2 (08:24→20:05)
[2017-01-01] MEDS: MAGNESIUM SULFATE-D5W PMX 1 GM in DEXTROSE/WATER 1 100ML.BAG IVPB SCH ×2 (08:25→09:38)
[2017-01-01 08:41] LABS: Calcium 7.8 mg/dL (8.4-10.2)
[2017-01-01] MEDS ORDERED: LEVOFLOXACIN 750 MG TAB PO SCH (09:00)
[2017-01-01] MEDS: PIPERACILLIN-TAZOBACTAM 3.375 GM in DEXTROSE/WATER 1 50ML.BAG IVPB SCH ×3 (09:38→23:00)
[2017-01-01] MEDS: CITALOPRAM HYDROBROMIDE 20 MG TAB PO SCH (09:41)
[2017-01-01] MEDS: METOPROLOL TARTRATE 25 MG TAB PO SCH ×3 (09:41→20:08)
[2017-01-01] MEDS: CHOLECALCIFEROL 1,000 UNIT TAB PO SCH (09:41)
[2017-01-01] MEDS: VIT A,C & E-LUTEIN-MINERALS 1 EACH TAB PO SCH (09:41)
[2017-01-01] MEDS: SENNOSIDES 8.6 MG TAB PO SCH ×2 (09:41→15:50)
[2017-01-01] MEDS: ASPIRIN 81 MG PO SCH (09:41)
[2017-01-01] MEDS: GABAPENTIN 300 MG CAP PO SCH ×2 (09:41→15:50)
[2017-01-01] MEDS: LORATADINE 10 MG TAB PO SCH (09:41)
[2017-01-01] MEDS: POTASSIUM CHLORIDE ER 10 MEQ TAB.ER.PRT PO SCH (09:41)
--- NOTE | 2017-01-01 11:09 | P.PN ---
Progress Note - Text This is a pleasant 61-year-old female patient who sees Dr. Jade as an outpatient with a past medical history significant for hypertension with no documentation of any coronary artery disease, congestive heart failure, or cardiac arrhythmia, presented to the hospital because she was not feeling well. The patient presented to the hospital with generalized weakness and fatigue as well as cough and fever. She had an insect bite a few weeks ago complicated by large abscess in the axilla on the left side. Currently the patient is on antibiotic but she is slightly hypotensive with heart rate in the 80s. We get involved in the care of the patient because during her hospitalization she went into an A. fib and subsequently she was started on Cardizem and drip and converted to normal sinus mechanism. The Cardizem drip was stopped because the patient was hypotensive. The patient has been maintaining normal sinus mechanism. She is not aware of any prior history of atrial fibrillation. Currently the patient is maintaining normal sinus mechanism was sinus tachycardia. The blood pressure continues to be on the low side. I am going to add digoxin to the current medical treatment and continue the metoprolol at 25 mg by mouth 3 times a day.
[2017-01-01] MEDS: CYANOCOBALAMIN 500 MCG TAB PO SCH (13:04)
[2017-01-01] MEDS: DIGOXIN 125 MCG TAB PO SCH (13:04)
[2017-01-01] MEDS: valACYclovir HCL 1,000 MG TABLET PO SCH ×2 (13:04→20:08)
--- NOTE | 2017-01-01 15:41 | P.GSCN ---
History of Present Illness Consult date: 01/01/17 Reason for Consult: History of left axillary abscess, left shoulder pain History of present illness: This is a 61-year-old female who underwent recent incision and drainage of a left axillary abscess. The patient was receiving care at a chronic care facility. She developed increased pain in her left shoulder. Patient was admitted to the hospital for possible wound infection. Patient then presented with a zoster inflammation of her shoulder. Patient has had minimal drainage from her wound. There is no evidence of any obvious wound infection. She is being currently seen by Dr. Elmore who is managing her zoster flareup. Past Medical History Past Medical History: Asthma, Coronary Artery Disease (CAD), Cancer, Chest Pain / Angina, CVA/TIA, Eye Disorder, GERD/Reflux, Hyperlipidemia, Hypertension Additional Past Medical History / Comment(s): Pt recently admitted to [facility] on with allergic reaction possibly to insect bite, exacerbation of asthma, respiratory failure, L axillae cellulitis-cultures grew peptostreptococcus and MSSA-had I&D and has wound vac. 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 History of Any Multi-Drug Resistant Organisms: None Reported Past Surgical History: Adenoidectomy, Back Surgery, Cholecystectomy, Ear Surgery , Heart Catheterization, Hysterectomy, Tonsillectomy Additional Past Surgical History / Comment(s): I & D L axillae, L eye surgery for laxy eye, bilateral cataract removal, bilateral myringotomy/tubes, colonoscopy, cardiac cath on 07/24/2016 with moderate stenosis of LAD noted - no stenting at that time recommend medical management and return for angioplasty if sx persist Past Anesthesia/Blood Transfusion Reactions: No Reported Reaction Additional Psychological History / Comment(s): Is normally a resident of a jail Smoking Status: Never smoker - Past Family History Mother Family Medical History: Myocardial Infarction ([place]) Additional Family Medical History / Comment(s): Mother at 72 yrs. Father Family Medical History: Cancer Additional Family Medical History / Comment(s): throat CA. Father at 72 yrs. Brother(s) Family Medical History: Cancer Additional Family Medical History / Comment(s): liver Medications and Allergies Home Medications Medication Instructions Recorded Confirmed Type Cholecalciferol [Vitamin D3] 2,000 unit PO DAILY 08/06/14 12/30/16 History Citalopram Hydrobromide 40 mg PO DAILY 08/06/14 12/30/16 History [Citalopram HBr] Cyanocobalamin [Vitamin B-12] 1,000 mcg PO Q48H 08/06/14 12/30/16 History Gabapentin [Neurontin] 300 mg PO BID@0900,1700 07/21/16 12/30/16 History Loratadine [Claritin] 10 mg PO DAILY 07/21/16 12/30/16 History Sennosides [Senna] 8.6 mg PO BID@0900,1700 07/21/16 12/30/16 History Nitroglycerin Sl Tabs [Nitrostat] 0.4 mg SUBLINGUAL Q5M PRN 07/22/16 12/30/16 History Aspirin EC [Ecotrin Low Dose] 81 mg PO DAILY 07/27/16 12/30/16 History Calcium Carbonate [Tums] 500 mg PO TID PRN 07/27/16 12/30/16 History QUEtiapine [SEROquel] 400 mg PO HS 07/27/16 12/30/16 History Acetaminophen [Tylenol 8 Hour] 650 mg PO Q4H PRN 12/30/16 12/30/16 History Acetaminophen-Codeine 300-30mg 1 tab PO Q8H PRN 12/30/16 12/30/16 History [Tylenol #3] Albuterol Nebulized [Ventolin 2.5 mg INHALATION RT-Q6H PRN 12/30/16 12/30/16 History Nebulized] Amino Acids/Protein Hydrolys 30 ml PO BID 12/30/16 12/30/16 History [Pro-Stat Supplement] Atorvastatin [Lipitor] 10 mg PO HS 12/30/16 12/30/16 History Calamine/Zinc Oxide Lotion 1 applic TOPICAL Q6H PRN 12/30/16 12/30/16 History [Calamine Lotion] Dimethicone/Zinc Oxide [Inzo Zinc 1 applic TOPICAL DIRECTED PRN 12/30/1602/07 History Oxide Barrier Cream] Dimethicone/Zinc Oxide [Inzo Zinc 1 applic TOPICAL Q12H 12/30/16 12/30/16 History Oxide Barrier Cream] Ferrous Sulfate [Feosol] 325 mg PO DAILY@1700 12/30/16 12/30/16 History Omeprazole 20 mg PO AC-BRKFST 12/30/16 12/30/16 History Ondansetron [Zofran] 4 mg PO Q8HR PRN 12/30/16 12/30/16 History Potassium Chloride [Klor-Con 10] 10 meq PO DAILY 12/30/16 12/30/16 History Potassium Chloride [Klor-Con 20] 20 meq PO DIRECTED 12/30/16 12/30/16 History Vit C/E/Zn/Coppr/Lutein/Zeaxan 1 cap PO DAILY 12/30/16 12/30/16 History [Preservision Areds 2 Softgel] ceFAZolin [Kefzol] 2 gm IV TID@0600,1400,2200 12/30/16 12/30/16 History valACYclovir [Valtrex] 1,000 mg PO TID@0600,1400,2200 12/30/16 12/30/16 History Allergies Allergy/AdvReac Type Severity Reaction Status Date / Time bee venom protein (honey bee) Allergy Anaphylaxis Verified 12/30/16 06:57 Surgical - Exam Vital Signs Temp Pulse Resp BP Pulse Ox 100 F H 126 H 20 142/86 94 L 12/30/16 01:21 12/30/16 01:21 12/30/16 01:21 12/30/16 01:21 12/30/16 01:21 - General well developed, no distress - Eyes PERRL - ENT normal pinna - Neck no masses - Respiratory normal expansion - Cardiovascular Rhythm: regular - Abdomen Abdomen: soft, non tender - Integumentary Left axillary wound. There is healthy granulation tissue the wound. There is no purulent drainage. There is an obvious zoster rash of the left shoulder. Results - Labs 01/01/17 06:07 01/01/17 06:07 Abnormal Lab Results - Last 24 Hours (Table) 12/31/16 01/01/17 01/01/17 Range/Units 18:03 06:07 06:07 RBC 2.33 L (3.80-5.40) m/uL Hgb 7.4 L (11.4-16.0) gm/dL Hct 23.9 L (34.0-46.0) % MCV 102.6 H (80.0-100.0) fL Lymphocytes # 0.9 L (1.0-4.8) k/uL APTT 62.0 H 62.6 H (22.0-30.0) sec Sodium (137-145) mmol/L Carbon Dioxide (22-30) mmol/L BUN (7-17) mg/dL Creatinine (0.52-1.04) mg/dL Glucose (74-99) mg/dL Calcium (8.4-10.2) mg/dL 01/01/17 Range/Units 06:07 RBC (3.80-5.40) m/uL Hgb (11.4-16.0) gm/dL Hct (34.0-46.0) % MCV (80.0-100.0) fL Lymphocytes # (1.0-4.8) k/uL APTT (22.0-30.0) sec Sodium 128 L (137-145) mmol/L Carbon Dioxide 20 L (22-30) mmol/L BUN 28 H (7-17) mg/dL Creatinine 1.25 H (0.52-1.04) mg/dL Glucose 110 H (74-99) mg/dL Calcium 7.8 L (8.4-10.2) mg/dL Microbiology - Last 24 Hours (Table) 01/01/17 12:58 Gram Stain - Preliminary Sputum Sputum Culture - Preliminary 12/30/16 03:15 Gram Stain - Preliminary Axilla - Left Wound Culture - Preliminary Ingrid albicans Group D Enterococcus 12/30/16 01:20 Blood Culture - Preliminary Blood No Growth after 48 hours 12/30/16 08:30 Urine Culture - Final Urine,Voided Diabetes panel 01/01/17 Range/Units 06:07 Sodium 128 L (137-145) mmol/L Potassium 4.0 (3.5-5.1) mmol/L Chloride 101 (98-107) mmol/L Carbon Dioxide 20 L (22-30) mmol/L BUN 28 H (7-17) mg/dL Creatinine 1.25 H (0.52-1.04) mg/dL Glucose 110 H (74-99) mg/dL Calcium 7.8 L (8.4-10.2) mg/dL Calcium panel 01/01/17 Range/Units 06:07 Calcium 7.8 L (8.4-10.2) mg/dL Pituitary panel 01/01/17 Range/Units 06:07 Sodium 128 L (137-145) mmol/L Potassium 4.0 (3.5-5.1) mmol/L Chloride 101 (98-107) mmol/L Carbon Dioxide 20 L (22-30) mmol/L BUN 28 H (7-17) mg/dL Creatinine 1.25 H (0.52-1.04) mg/dL Glucose 110 H (74-99) mg/dL Calcium 7.8 L (8.4-10.2) mg/dL Adrenal panel 01/01/17 Range/Units 06:07 Sodium 128 L (137-145) mmol/L Potassium 4.0 (3.5-5.1) mmol/L Chloride 101 (98-107) mmol/L Carbon Dioxide 20 L (22-30) mmol/L BUN 28 H (7-17) mg/dL Creatinine 1.25 H (0.52-1.04) mg/dL Glucose 110 H (74-99) mg/dL Calcium 7.8 L (8.4-10.2) mg/dL Assessment and Plan Plan: Status post debridement of left breast abscess. Patient had local wound care. She'll be managed by the medical team. No surgical intervention is planned.
[2017-01-01] MEDS: FERROUS SULFATE 325 MG TAB PO SCH (15:50)
--- NOTE | 2017-01-01 16:10 | US ---
EXAMINATION TYPE: US venous doppler duplex UE LT DATE OF EXAM: 01/01/2017 COMPARISON: CT CLINICAL HISTORY: R/O DVT. Left arm swelling, wound in left axilla SIDE PERFORMED: Left left lower arm edema noted, axilla vessels deferred due to dressing over area of open wound. Edema ch annels present within the left lower arm. Left Arm: Negative for DVT Grayscale, color Doppler, spectral Doppler imaging performed of deep veins of the left upper extremit y IMPRESSION: Grayscale, color doppler, spectral doppler imaging performed of the deep veins of the upper extremity . There is normal flow, compress ability and vascular waveforms. No evident deep venous thrombosis in the veins evaluated of the left upper extremity. No superficial venous thrombosis.
[2017-01-01] MEDS: QUEtiapine 400 MG TAB PO SCH (20:08)
[2017-01-01] MEDS: HEPARIN SODIUM,PORCINE/D5W PMX 25,000 UNIT in DEXTROSE/WATER 1 500ML.BAG IV SCH (20:08)
[2017-01-01] MEDS: ATORVASTATIN 10 MG TAB PO SCH (20:08)
[2017-01-02] MEDS: SODIUM CHLORIDE 0.9% 1,000 ML IV SCH ×3 (02:02→22:47)
[2017-01-02] MEDS: ZINC OXIDE 20% OINT 28.4 GM TUBE TOPICAL SCH ×2 (02:02→09:42)
[2017-01-02 06:14] LABS: CH 31.2; CHCM 31.5; HCT 24.3 % (34.0-46.0); HDW 2.55; HGB 7.7 gm/dL (11.4-16.0); Immature Gran Flag Marked; MCH 31.6 pg (25.0-35.0); MCHC 31.8 g/dL (31.0-37.0); MCV 99.4 fL (80.0-100.0); Mean Platelet Volume 7.7; RBC 2.44 m/uL (3.80-5.40); RDW 13.3 % (11.5-15.5); WBC 8.2 k/uL (3.8-10.6)
[2017-01-02] MEDS: valACYclovir HCL 1,000 MG TABLET PO SCH ×3 (06:18→22:48)
[2017-01-02] MEDS: PANTOPRAZOLE 40 MG TABLET PO SCH (06:18)
[2017-01-02] MEDS: Acetaminophen-Codeine 300-30mg TAB PO PRN (06:19)
[2017-01-02 07:06] LABS: Add Differential Manual Differential
[2017-01-02 07:07] LABS: Calcium 8.3 mg/dL (8.4-10.2); Magnesium 2.2 mg/dL (1.6-2.3); Potassium 3.8 mmol/L (3.5-5.1)
[2017-01-02 07:08] LABS: Nucleated Red Blood Cells 0 /100 WBC (0-0)
[2017-01-02 07:14] LABS: Metamyelocytes % 3 %; Polychromasia Present; Total Cells Counted 200
[2017-01-02] MEDS: BUDESONIDE 0.5 MG/2 ML NEBU INHALATION SCH ×2 (08:10→20:34)
[2017-01-02] MEDS: IPRATROPIUM-ALBUTEROL 3 ML NEB INHALATION SCH ×4 (08:10→20:34)
[2017-01-02] MEDS ORDERED: DIGOXIN 125 MCG TAB PO SCH (09:00)
[2017-01-02] MEDS: LORATADINE 10 MG TAB PO SCH (09:40)
[2017-01-02] MEDS: CITALOPRAM HYDROBROMIDE 20 MG TAB PO SCH (09:40)
[2017-01-02] MEDS: POTASSIUM CHLORIDE ER 10 MEQ TAB.ER.PRT PO SCH (09:40)
[2017-01-02] MEDS: CHOLECALCIFEROL 1,000 UNIT TAB PO SCH (09:40)
[2017-01-02] MEDS: ASPIRIN 81 MG PO SCH (09:41)
[2017-01-02] MEDS: FERROUS SULFATE 325 MG TAB PO SCH (09:41)
[2017-01-02] MEDS: GABAPENTIN 300 MG CAP PO SCH ×2 (09:41→18:09)
[2017-01-02] MEDS: VIT A,C & E-LUTEIN-MINERALS 1 EACH TAB PO SCH (09:41)
[2017-01-02] MEDS: DIGOXIN 125 MCG TAB PO SCH (09:41)
[2017-01-02] MEDS: METOPROLOL TARTRATE 25 MG TAB PO SCH ×3 (09:41→22:47)
[2017-01-02] MEDS: SENNOSIDES 8.6 MG TAB PO SCH ×2 (09:41→18:09)
[2017-01-02] MEDS: PIPERACILLIN-TAZOBACTAM 3.375 GM in DEXTROSE/WATER 1 50ML.BAG IVPB SCH ×2 (10:16→18:09)
--- NOTE | 2017-01-02 10:34 | P.PN ---
Progress Note - Text The patient is improving. She has less pain over her left shoulder. Her wound is stable. There is no significant drainage. Status post drainage of left axillary abscess 2 weeks ago. Patient's zoster rash will be managed by medicine. No surgical intervention is planned.
--- NOTE | 2017-01-02 11:02 | P.PN ---
Progress Note - Text This is a pleasant 61-year-old female patient who sees Dr. Jade as an outpatient with a past medical history significant for hypertension with no documentation of any coronary artery disease, congestive heart failure, or cardiac arrhythmia, presented to the hospital because she was not feeling well. The patient presented to the hospital with generalized weakness and fatigue as well as cough and fever. She had an insect bite a few weeks ago complicated by large abscess in the axilla on the left side. Currently the patient is on antibiotic but she is slightly hypotensive with heart rate in the 80s. We get involved in the care of the patient because during her hospitalization she went into an A. fib and subsequently she was started on Cardizem and drip and converted to normal sinus mechanism. The Cardizem drip was stopped because the patient was hypotensive. The patient has been maintaining normal sinus mechanism. She is not aware of any prior history of atrial fibrillation. Currently the patient is maintaining normal sinus mechanism was sinus tachycardia. We'll continue the patient on the current medical treatment. I'll well DC the heparin and start the patient on oral anticoagulation.
--- NOTE | 2017-01-02 13:51 | XR ---
EXAMINATION TYPE: XR chest 1V portable DATE OF EXAM: 01/02/2017 Comparison: 12/31/2016 Clinical History: 61-year-old female is of breath, suspect aspiration Findings: Right PICC tip at the mid SVC. ACDF hardware. Heart is borderline to mildly enlarged. Diffuse interstitial and vascular prominence has increased fr om prior. Patchy retrocardiac opacity appears new. Impression: Worsening interstitial lung disease and patchy retrocardiac opacity. Correlate to exclude CHF. Underl nataly interstitial infiltrates such as from aspiration not excluded.
--- NOTE | 2017-01-02 14:41 | XR ---
EXAMINATION TYPE: XR abdomen 1V DATE OF EXAM: 01/02/2017 CLINICAL DATA: 61-year-old female with edema, PHH COMPARISON: None FINDINGS: Severe air distention of the stomach. Dilated small bowel loops are also noted in the left abdomen me asuring up to 4.3 cm. While there is some colonic gas on the right, there is overall paucity of colon ic gas on the left and within the pelvis. Supine imaging limited for assessment of free air. IMPRESSION: Correlate for a generalized ileus or small bowel obstruction given small bowel loops dilated up to 4. 2 cm and marked distention of the stomach.
[2017-01-02] MEDS: APIXABAN 2.5 MG TABLET PO SCH ×2 (15:08→22:47)
--- NOTE | 2017-01-02 15:27 | P.PN ---
Subjective Principal diagnosis: Pain to right neck 61-year-old female presents to the emergency center from the [facility] care facility where she has been receiving care for her significant abscess to her left axillary area status post incision and drainage. Apparently she started to have change in the drainage despite the wound VAC. She is having some increasing discomfort. She was becoming weak and tired. She then developed a significant rash that started at the base of the neck to the right side. It was a blistering rash that was extremely painful. She believes she had a low-grade fever. Because of her acute changes status she was sent to the emergency center and was admitted. With evidence of the significant rash and the ongoing infection to the left axillary area the infectious diseases consultation was requested. At this time she seems a bit more awake and alert than admission. She is able to relate to some pain at the left axillary area but it is not severe at this time. The wound VAC was minimally uncomfortable. She relates that her great amount of pain is to the right neck where she has the blistering rash. Does not believe she's had a high-grade fever or chills. Feels quite poorly overall. She's had some nausea without emesis. She denying significant abdominal pain at this time. She is not having significant cough or sputum production no hemoptysis. Feels better today. Drainage is improved. Less pain to the left axilla. Otherwise been having some shortness of breath. Objective - Vital Signs Vital signs: Vital Signs Temp 97.3 F L 01/02/17 08:00 Pulse 86 01/02/17 12:00 Resp 17 01/02/17 12:00 BP 101/55 01/02/17 12:00 Pulse Ox 97 01/02/17 12:00 Intake & Output 01/01/17 01/02/17 01/02/17 18:59 06:59 18:59 Intake Total 700 1566.318 337 Balance 700 1566.318 337 Intake: IV 160 192 Heparin Sodium,Porcine/ 160 192 D5w Pmx 25,000 unit In Dextrose/Water 1 500ml. bag @ 10.1 UNITS/KG/HR 20 .06 mls/hr IV .Q24H [facility] Rx#:[id number] Intake, IV Titration 300 1374.318 Amount Heparin Sodium,Porcine/ 574.318 D5w Pmx 25,000 unit In Dextrose/Water 1 500ml. bag @ 10.1 UNITS/KG/HR 20 .06 mls/hr IV .Q24H [facility] Rx#:[id number] Magnesium Sulfate-D5w Pmx 200 1 gm In Dextrose/Water 1 100ml.bag @ 100 mls/hr IVPB Q1H [facility] Rx#: [id number] Piperacillin-Tazobactam 3 100 .375 gm In Dextrose/Water 1 50ml.bag @ 12.5 mls/hr IVPB Q8HR [facility] Rx#: [id number] Sodium Chloride 0.9% 1, 800 000 ml @ 100 mls/hr IV . Q10H [facility] Rx#:[id number] Oral 240 337 Other: Voiding Method Bedpan Bedpan Bedpan Incontinent Incontinent Incontinent # Voids 2 1 1 - Exam 61-year-old woman who appears older than her stated age. More interactive than during her last hospital stay. But his still compromised. HEENT: Anicteric conjunctiva are pink and moist nasal mucosa grossly intact without significant lesions, there is no thrush. Oral mucosa is dry Neck: The neck is supple without significant lymphadenopathy or thyromegaly. Lungs: Good bilateral air entry without significant crackles or wheezing. There is no significant bronchial sounds. There is no egophony or dullness. Heart: Regular rate and rhythm with an audible S1-S2, no S3 no S4. There is no significant murmur click or rub, PMI was nondisplaced. Abdomen: Positive bowel sounds soft and nontender without palpable masses or organomegaly. There was no guarding or rebound. Extremities: The upper extremities have excellent pulses they are symmetric, no significant petechiae or telangiectasia. No splinter hemorrhages were noted. The left axillary area is evidence of site of the incision and drainage. The cavity is noted. Please see the nursing photography for its site measurement. There is evidence of some purulence at the base. Cultures have been obtained. . Area was cleansed with saline and silver rope dressing is applied. It is slightly tender but not severely so. Skin: Evidence of the dermatomal rash onto the right neck onto the anterior chest wall. It does not penetrate over the midline of the shoulder. The vesicles are drying. It has not extended. Much less tender. Neuro: Arousable did interaction to some simple questions. More interactive than her last visit however. - Labs CBC & Chem 7: 01/02/17 05:53 01/02/17 05:53 Labs: Abnormal Lab Results - Last 24 Hours (Table) 01/02/17 01/02/17 01/02/17 Range/Units 05:53 05:53 05:53 RBC 2.44 L (3.80-5.40) m/uL Hgb 7.7 L (11.4-16.0) gm/dL Hct 24.3 L (34.0-46.0) % APTT 47.8 H (22.0-30.0) sec Sodium 130 L (137-145) mmol/L BUN 31 H (7-17) mg/dL Creatinine 1.47 H (0.52-1.04) mg/dL Calcium 8.3 L (8.4-10.2) mg/dL Microbiology - Last 24 Hours (Table) 12/30/16 03:15 Gram Stain - Preliminary Axilla - Left Wound Culture - Preliminary Ingrid albicans Enterococcus faecalis Presumptive Staph aureus 12/30/16 01:20 Blood Culture - Preliminary Blood No Growth after 72 hours 01/01/17 12:58 Gram Stain - Preliminary Sputum Sputum Culture - Preliminary Laboratory Results WBC 8.2 k/uL (3.8-10.6) 01/02/17 05:53 RBC 2.44 m/uL (3.80-5.40) L 01/02/17 05:53 Hgb 7.7 gm/dL (11.4-16.0) L 01/02/17 05:53 Hct 24.3 % (34.0-46.0) L 01/02/17 05:53 MCV 99.4 fL (80.0-100.0) 01/02/17 05:53 MCH 31.6 pg (25.0-35.0) 01/02/17 05:53 MCHC 31.8 g/dL (31.0-37.0) 01/02/17 05:53 RDW 13.3 % (11.5-15.5) 01/02/17 05:53 Plt Count 208 k/uL (150-450) 01/02/17 05:53 Neutrophils % 85 % 01/01/17 06:07 Neutrophils % (Manual) 70 % 01/02/17 05:53 Band Neutrophils % 2.0 % 01/02/17 05:53 Lymphocytes % 11 % 01/01/17 06:07 Lymphocytes % (Manual) 20 % 01/02/17 05:53 Monocytes % 2 % 01/01/17 06:07 Monocytes % (Manual) 5 % 01/02/17 05:53 Eosinophils % 0 % 01/01/17 06:07 Eosinophils % (Manual) 1 % 01/02/17 05:53 Basophils % 0 % 01/01/17 06:07 Metamyelocytes % 3 % 01/02/17 05:53 Neutrophils # 7.0 k/uL (1.3-7.7) 01/01/17 06:07 Neutrophils # (Manual) 5.90 k/uL (1.3-7.7) 01/02/17 05:53 Lymphocytes # 0.9 k/uL (1.0-4.8) L 01/01/17 06:07 Lymphocytes # (Manual) 1.64 k/uL (1.0-4.8) 01/02/17 05:53 Monocytes # 0.1 k/uL (0-1.0) 01/01/17 06:07 Monocytes # (Manual) 0.41 k/uL (0-1.0) 01/02/17 05:53 Eosinophils # 0.0 k/uL (0-0.7) 01/01/17 06:07 Eosinophils # (Manual) 0.08 k/uL (0-0.7) 01/02/17 05:53 Basophils # 0.0 k/uL (0-0.2) 01/01/17 06:07 Nucleated RBCs 0 /100 WBC (0-0) 01/02/17 05:53 Manual Slide Review Performed 12/31/16 03:00 Polychromasia Present 01/02/17 05:53 Hypochromasia Slight 01/01/17 06:07 Macrocytosis Slight 01/01/17 06:07 PT 14.8 sec (9.0-12.0) H 12/31/16 03:49 INR 1.5 (<1.2) H 12/31/16 03:49 APTT 47.8 sec (22.0-30.0) H 01/02/17 05:53 Sodium 130 mmol/L (137-145) L 01/02/17 05:53 Potassium 3.8 mmol/L (3.5-5.1) 01/02/17 05:53 Chloride 100 mmol/L (98-107) 01/02/17 05:53 Carbon Dioxide 22 mmol/L (22-30) 01/02/17 05:53 Anion Gap 8 mmol/L 01/02/17 05:53 BUN 31 mg/dL (7-17) H 01/02/17 05:53 Creatinine 1.47 mg/dL (0.52-1.04) H 01/02/17 05:53 Est GFR (MDRD) Af Amer 44 (>60 ml/min/1.73 sqM) 01/02/17 05:53 Est GFR (MDRD) Non-Af 36 (>60 ml/min/1.73 sqM) 01/02/17 05:53 Glucose 78 mg/dL (74-99) 01/02/17 05:53 Plasma Lactic Acid Britton 1.4 mmol/L (0.7-2.0) 12/31/16 02:50 Calcium 8.3 mg/dL (8.4-10.2) L 01/02/17 05:53 Phosphorus 2.8 mg/dL (2.5-4.5) 12/30/16 01:20 Magnesium 2.2 mg/dL (1.6-2.3) 01/02/17 05:53 Total Bilirubin 0.6 mg/dL (0.2-1.3) 12/30/16 01:20 AST 25 U/L (14-36) 12/30/16 01:20 ALT 24 U/L (9-52) 12/30/16 01:20 Alkaline Phosphatase 116 U/L (38-126) 12/30/16 01:20 Total Creatine Kinase <20 U/L (30-135) L 12/30/16 01:20 CK-MB (CK-2) 0.4 ng/mL (0.0-2.4) 12/30/16 01:20 CK-MB (CK-2) Rel Index 0.0 12/30/16 01:20 Troponin I <0.012 ng/mL (0.000-0.034) 12/30/16 01:20 Total Protein 5.8 g/dL (6.3-8.2) L 12/30/16 01:20 Albumin 2.8 g/dL (3.5-5.0) L 12/30/16 01:20 Urine Color Yellow 12/30/16 08:30 Urine Appearance Cloudy (Clear) H 12/30/16 08:30 Urine pH 6.0 (5.0-8.0) 12/30/16 08:30 Ur Specific Brethren 1.019 (1.001-1.035) 12/30/16 08:30 Urine Protein 1+ (Negative) H 12/30/16 08:30 Urine Glucose (UA) Negative (Negative) 12/30/16 08:30 Urine Ketones Trace (Negative) H 12/30/16 08:30 Urine Blood Negative (Negative) 12/30/16 08:30 Urine Nitrite Negative (Negative) 12/30/16 08:30 Urine Bilirubin Negative (Negative) 12/30/16 08:30 Urine Urobilinogen <2.0 mg/dL (<2.0) 12/30/16 08:30 Ur Leukocyte Esterase Moderate (Negative) H 12/30/16 08:30 Urine RBC 5 /hpf (0-5) 12/30/16 08:30 Urine WBC 19 /hpf (0-5) H 12/30/16 08:30 Ur Squamous Epith Cells 9 /hpf (0-4) H 12/30/16 08:30 Calcium Oxalate Crystal Occasional /hpf (None) H 12/30/16 08:30 Urine Mucus Rare /hpf (None) H 12/30/16 08:30 Urine Yeast (Budding) Many /hpf (None) H 12/30/16 08:30 Microbiology 12/30/16 03:15 Axilla - Left Gram Stain - Preliminary 12/30/16 03:15 Axilla - Left Wound Culture - Preliminary Ingrid albicans Enterococcus faecalis Presumptive Staph aureus 12/30/16 01:20 Blood Blood Culture - Preliminary No Growth after 72 hours 01/01/17 12:58 Sputum Gram Stain - Preliminary 01/01/17 12:58 Sputum Sputum Culture - Preliminary 12/30/16 08:30 Urine,Voided Urine Culture - Final Assessment and Plan (1) Varicella zoster Status: Acute (2) Schizo affective schizophrenia Status: Acute (3) Abscess of axilla, left Narrative/Plan: 61-year-old female presents from the [facility] care facility because of onset of severe rash to her right neck as well as low-grade fever and worsening overall status. Patient is evidence of the varicella-zoster of the right neck and upper chest. Classic blistering and tenderness is noted. She had been started on Valtrex and that shall continue. Steroids were not started and will not be initiated at this time. The patient has evidence of the extensive axillary abscesses status post incision and drainage. It is of decreased size with the local care of that she' s been receiving especially with the wound VAC. However now appears to have a secondary infection. Wound VAC is put on hold. We'll place silver dressing into the base. Further cultures obtained Antibiotic therapy with Zosyn will be utilized with covers for the MSSA, strep in the anaerobic gram-negative bacilli that were isolated. Enterococcus also isolated for which the piperacillin will give adequate coverage . She does have moderate protein calorie malnutrition and will need further improved nutrition to help her healing. It appears that her psychiatric status is stable. Status: Acute (4) MSSA (methicillin susceptible Staphylococcus aureus) infection Status: Acute
[2017-01-02] MEDS ORDERED: APIXABAN 5 MG TAB PO SCH (21:00)
[2017-01-02] MEDS: QUEtiapine 400 MG TAB PO SCH (22:47)
[2017-01-02] MEDS: ATORVASTATIN 10 MG TAB PO SCH (22:47)
[2017-01-03] MEDS: PIPERACILLIN-TAZOBACTAM 3.375 GM in DEXTROSE/WATER 1 50ML.BAG IVPB SCH ×3 (00:27→16:24)
[2017-01-03] MEDS: ZINC OXIDE 20% OINT 28.4 GM TUBE TOPICAL SCH ×3 (03:02→21:29)
[2017-01-03] MEDS: SODIUM CHLORIDE 0.9% 1,000 ML IV SCH ×2 (06:28→17:09)
[2017-01-03] MEDS: valACYclovir HCL 1,000 MG TABLET PO SCH ×2 (06:29→16:24)
[2017-01-03] MEDS: PANTOPRAZOLE 40 MG TABLET PO SCH (06:29)
[2017-01-03 06:52] LABS: Basophils % (A) 0 %; CH 31.7; CHCM 31.1; Eosinophils % (A) 1 %; HCT 24.2 % (34.0-46.0); HDW 2.49; HGB 7.5 gm/dL (11.4-16.0); Hypochromasia Slight; Immature Gran Flag Moderate; Luc # (Auto) 0.11; Luc % (Auto) 2; Lymphocytes % (A) 14 %; MCH 31.7 pg (25.0-35.0); MCV 102.4 fL (80.0-100.0); Macrocytosis Slight; Mean Platelet Volume 8.4; Monocytes # (A) 0.1 k/uL (0-1.0); Monocytes % (A) 2 %; Neutrophils # (A) 5.6 k/uL (1.3-7.7); Neutrophils % (A) 81 %; RBC 2.36 m/uL (3.80-5.40); RDW 13.7 % (11.5-15.5); WBC 6.9 k/uL (3.8-10.6); WBC (Perox) 7.74
[2017-01-03 07:00] LABS: Calcium 8.3 mg/dL (8.4-10.2); Potassium 3.6 mmol/L (3.5-5.1)
[2017-01-03 07:07] LABS: Manual Review Performed; Polychromasia Present
--- NOTE | 2017-01-03 07:16 | PN ---
DATE OF SERVICE: 01/01/17 PRESENTING COMPLAINT: Shingles. INTERVAL HISTORY: This patient was seen by me on 01/01/17. The patient appears a bit more relaxed. Did have paroxysmal atrial fibrillation. Now back in sinus rhythm. Lying in bed, more comfortable. Wound VAC remains to be off. Getting antibiotics. Still trouble with shingles on the right side of the neck. Review of systems was done for constitutional, cardiovascular, GI, pulmonary. Relevant findings as above. Current medications are reviewed. That include: IV heparin, po Levaquin, IV Zosyn, Valtrex. On examination, temperature 97.8, pulse 106. Respirations 16. Blood pressure 105/52. Pulse ox 92% on room air. General appearance lying up in bed, less anxious appearing. Eyes: Pupils equal. Conjunctivae normal. Neck: JVD not raised. Respiratory effort normal. Lungs diminished breath sounds. Cardiovascular: First and second sounds normal. No edema. Abdomen soft, nontender. Liver and spleen not palpable. Dermatological: Herpetic rash on the right side of the neck and upper chest wall with tender blisters. Dressing on the left axilla. Investigations: Telemetry shows sinus rhythm. White count 8.3. Hemoglobin 7.4. Sodium 128. BUN 28, creatinine 1.25. ASSESSMENT: 1. Left axillae abscess with I&D on the last admission with secondary infection, currently off wound VAC. Slow to respond. 2. Intermittent asthma. 3. Paroxysmal atrial fibrillation. Has been in sinus rhythm. 4. Coronary artery disease with nonobstructive lesion 50% LAD. 5. Gastroesophageal reflux disease. 6. Essential hypertension. 7. Hyperlipidemia. 8. Metabolic alkalosis. 9. Chronic tardive dyskinesia. 10. Schizoaffective disorder, chronic. 11. Anxiety disorder, not otherwise specified. 12. Peripheral neuropathy, idiopathy. 13. CODE STATUS: FULL. 14. Herpes zoster Type 2 acute in the neck and upper chest wall area. PLAN: Continue current medication and treatment plan. Antibiotics in the form of Levaquin and Zosyn per Dr. Elmore. Wound VAC remains ( ) local wound care is continued. The patients atrial fibrillation was short lived. We will let cardiology decide about anticoagulation. Care was discussed with the patient. KRYSTYNA
[2017-01-03] MEDS: GABAPENTIN 300 MG CAP PO SCH ×2 (07:47→17:10)
[2017-01-03] MEDS: CITALOPRAM HYDROBROMIDE 20 MG TAB PO SCH (07:48)
[2017-01-03] MEDS: METOPROLOL TARTRATE 25 MG TAB PO SCH ×3 (07:48→22:18)
[2017-01-03] MEDS: APIXABAN 2.5 MG TABLET PO SCH ×2 (07:48→22:18)
[2017-01-03] MEDS: CHOLECALCIFEROL 1,000 UNIT TAB PO SCH (07:49)
[2017-01-03] MEDS: CYANOCOBALAMIN 500 MCG TAB PO SCH (07:49)
[2017-01-03] MEDS: VIT A,C & E-LUTEIN-MINERALS 1 EACH TAB PO SCH (07:49)
[2017-01-03] MEDS: LORATADINE 10 MG TAB PO SCH (07:49)
[2017-01-03] MEDS: POTASSIUM CHLORIDE ER 10 MEQ TAB.ER.PRT PO SCH (07:49)
[2017-01-03] MEDS: DIGOXIN 125 MCG TAB PO SCH (07:49)
[2017-01-03] MEDS: ASPIRIN 81 MG PO SCH (07:50)
[2017-01-03] MEDS: SENNOSIDES 8.6 MG TAB PO SCH ×2 (07:50→17:10)
[2017-01-03] MEDS ORDERED: LEVOFLOXACIN 750 MG TAB PO SCH (09:00)
[2017-01-03] MEDS: IPRATROPIUM-ALBUTEROL 3 ML NEB INHALATION SCH ×4 (09:19→21:38)
[2017-01-03] MEDS: BUDESONIDE 0.5 MG/2 ML NEBU INHALATION SCH ×2 (09:19→21:38)
--- NOTE | 2017-01-03 10:18 | P.PN ---
Progress Note - Text This is a pleasant 61-year-old female patient who sees Dr. Jade as an outpatient with a past medical history significant for hypertension with no documentation of any coronary artery disease, congestive heart failure, or cardiac arrhythmia, presented to the hospital because she was not feeling well. The patient presented to the hospital with generalized weakness and fatigue as well as cough and fever. She had an insect bite a few weeks ago complicated by large abscess in the axilla on the left side. We get involved in the care of the patient because during her hospitalization she went into an A. fib and subsequently she was started on Cardizem and drip and converted to normal sinus mechanism. The Cardizem drip was stopped because the patient was hypotensive. The patient has been maintaining normal sinus mechanism. She is not aware of any prior history of atrial fibrillation. Currently the patient is maintaining normal sinus mechanism was sinus tachycardia. We'll continue the patient on the current medical treatment. She was started on oral anticoagulation yesterday. From the cardiac vascular standpoint of view, there is no need for any further cardiac workup and will follow-up with the patient on when necessary case.
[2017-01-03] MEDS ORDERED: RX INFO: IV CONTRAST WAS GIVEN 1 EACH MISC MISCELLANE PRN (10:28)
--- NOTE | 2017-01-03 10:28 | P.PN ---
Progress Note - Text The patient is resting comfortably in her bed. She states she has some mild abdominal pain. She still feels bloated. There is some bilious fluid in her NG tube. On exam her vital signs are stable. Her abdomen is soft, there is some distention. There is some mild tenderness throughout. Ileus versus partial small bowel charge. Patient undergo computed tomography scan of the abdomen and pelvis today.
--- NOTE | 2017-01-03 11:30 | PN ---
DATE OF SERVICE: 01/02/2017 PRESENTING COMPLAINT: Nausea. INTERVAL HISTORY: This is a patient in the hospital recently with left axilla abscess status post I&D. Had a wound VAC that has now been discontinued. Readmitted with secondary infection, on antibiotics per Dr. Elmore. Patient also has acute shingles on right-sided neck and upper chest wall. The shingles appear actually much improved. The patient threw up her breakfast. Abdomen is distended. Has not had a bowel movement she states for at least 3 or 4 days. Has got some edema. Started on Eliquis by cardiology. REVIEW OF SYSTEMS: CONSTITUTIONAL: None. CARDIOVASCULAR: None. : Findings as above. PULMONARY: Findings as above. CURRENT MEDICATIONS: Reviewed and include Levaquin and IV Zosyn. On examination, temperature 97.3, pulse 89, respirations 20, blood pressure 105/ 53, pulse ox 95% on 2 liters. GENERAL APPEARANCE: Laying in bed, tired appearing. EYES: Pupils equal. Conjunctivae normal. NECK: JVP not raised. Mass not palpable. RESPIRATORY EFFORT: Normal. LUNGS: Decreased breath sounds. CARDIOVASCULAR: First and second sounds normal. Edema present. ABDOMEN: Distended. Hypertympanitic bowel sounds. Liver and spleen not palpable. PSYCHIATRY: Alert and oriented x3. Mood and affect normal. DERMATOLOGIC: Herpetic rash on the right side of the neck and right upper chest wall. Tenderness has gone down. Dressing in the left axilla area. INVESTIGATIONS: X-ray reviewed by me shows dilated loops of bowel, no air fluid level. White count 8.2. Potassium 3.8. BUN 21, creatinine 1.47. Sodium 130. ASSESSMENT: 1. Acute bowel obstruction versus ileus, likely the latter, probably from immobility. 2. Left axilla abscess with incision and drainage on the last admission, now with secondary infection. 3. Insulin-dependent diabetes mellitus. 4. Paroxysmal atrial fibrillation, back on sinus rhythm, started on Eliquis by cardiology. 5. Coronary artery disease, nonobstructive, 50% left anterior descending lesion. 6. Gastroesophageal reflux disease. 7. Essential hypertension. 8. Hyperlipidemia. 9. Metabolic alkalosis. 10. Chronic dysdiadochokinesia. 11. Schizophrenic disorder, chronic. 12. Anxiety disorder, not otherwise specified. 13. Peripheral neuropathy, idiopathic. 14. CODE STATUS: FULL. 15. Herpes zoster, type 2, acute in the neck and upper chest wall area. PLAN: I called Dr. Alvarez, discussed with him. We will go ahead and put an NG tube for right now to low intermittent suction. Will hold off the suction to give her oral medications. Care was discussed with Dr. Alvarez. Follow. MTDD
[2017-01-03] MEDS: IOHEXOL 350 MG/ML 25 ML BOTTLE (ORAL USE) PO PRN ×2 (11:45→12:52)
--- NOTE | 2017-01-03 13:02 | P.CNPUL ---
History of Present Illness Consult date: 01/03/17 Reason for consult: dyspnea History of present illness: A 67-year-old female patient, halfway resident, presented to the hospital because of pain in her right neck area. The patient is currently being treated for shingles in her right neck and chest area. She is also found to have an abscess in her left axilla for which he underwent an incision and drainage and a once back was applied. ID was also evaluating this patient and handling the antibiotic treatment. The wound VAC itself was uncomfortable. This was subsequently removed and appropriate packing was applied. No fever. No chills. No emesis. Cultures showing Ingrid albicans, Enterococcus faecalis and MSSA. Currently the patient is on IV Zosyn. The patient subsequently started having feeling of bloating and developed abdominal distention. A fasting amount of the abdomen was done and showed ileus/bowel obstruction PA general surgery consultation was obtained. NG tube was placed and there is significant amount of output more than 600 mL since the NG tube was inserted. Currently the patient is resting comfortably in bed. No signs of any respiratory distress. She is on 2 L of oxygen nasal cannula. No cough or sputum production. No clear-cut history of aspiration. The patient apparently was throwing up earlier. The patient is denying have abdominal pain. Abdomen seems to be less distended. There is extensive lower extremity edema. The patient also has issues with proximity fibrillation and her current rhythm is sinus. She was started on anti-coagulation with cardiology. She is known to have coronary artery disease and she is also diabetic, insulin-dependent. She suffers from schizophrenic disorder. CODE STATUS is full. Review of Systems A full review of systems cannot be obtained. He had based on my conversation with the patient, she is resting comfortably in bed. She has chronic schizophrenia and she is chronically debilitated. Lower extremity edema is also chronic. Denies having any chest pain. Denies having any shortness of breath at this point. Abdomen is less distended and the patient is feeling more comfortable tolerating the NG tube. Past Medical History Past Medical History: Asthma, Coronary Artery Disease (CAD), Cancer, Chest Pain / Angina, CVA/TIA, Eye Disorder, GERD/Reflux, Hyperlipidemia, Hypertension Additional Past Medical History / Comment(s): Bronchial asthma, obesity, chronic lower extremity edema, L axillae cellulitis/abscess-cultures grew peptostreptococcus and MSSA-had I&D and has wound vac. 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, R eye macular degeneration, bronchial asthma, TIA, hiatal hernia, uterine cancer with hysterectomy, tardive dyskinesia, peripheral neuropathy cause unknown, migraines, sinus problems him a coronary artery disease with 50% lesion of the LAD, paroxysmal atrial fibrillation, hypertension , acid reflux, schizophrenic disorder, anxiety, peripheral neuropathy History of Any Multi-Drug Resistant Organisms: None Reported Past Surgical History: Adenoidectomy, Back Surgery, Cholecystectomy, Ear Surgery , Heart Catheterization, Hysterectomy, Tonsillectomy Additional Past Surgical History / Comment(s): I & D L axillae, L eye surgery for laxy eye, bilateral cataract removal, bilateral myringotomy/tubes, colonoscopy, cardiac cath on 07/24/2016 with moderate stenosis of LAD noted - no stenting at that time recommend medical management and return for angioplasty if sx persist Past Anesthesia/Blood Transfusion Reactions: No Reported Reaction Additional Psychological History / Comment(s): Is normally a [facility] Smoking Status: Never smoker - Past Family History Mother Family Medical History: Myocardial Infarction ([place]) Additional Family Medical History / Comment(s): Mother at 72 yrs. Father Family Medical History: Cancer Additional Family Medical History / Comment(s): throat CA. Father at 72 yrs. Brother(s) Family Medical History: Cancer Additional Family Medical History / Comment(s): liver Medications and Allergies Home Medications Medication Instructions Recorded Confirmed Type Cholecalciferol [Vitamin D3] 2,000 unit PO DAILY 08/06/14 12/30/16 History Citalopram Hydrobromide 40 mg PO DAILY 08/06/14 12/30/16 History [Citalopram HBr] Cyanocobalamin [Vitamin B-12] 1,000 mcg PO Q48H 08/06/14 12/30/16 History Gabapentin [Neurontin] 300 mg PO BID@0900,1700 07/21/16 12/30/16 History Loratadine [Claritin] 10 mg PO DAILY 07/21/16 12/30/16 History Sennosides [Senna] 8.6 mg PO BID@0900,1700 07/21/16 12/30/16 History Nitroglycerin Sl Tabs [Nitrostat] 0.4 mg SUBLINGUAL Q5M PRN 07/22/16 12/30/16 History Aspirin EC [Ecotrin Low Dose] 81 mg PO DAILY 07/27/16 12/30/16 History Calcium Carbonate [Tums] 500 mg PO TID PRN 07/27/16 12/30/16 History QUEtiapine [SEROquel] 400 mg PO HS 07/27/16 12/30/16 History Acetaminophen [Tylenol 8 Hour] 650 mg PO Q4H PRN 12/30/16 12/30/16 History Acetaminophen-Codeine 300-30mg 1 tab PO Q8H PRN 12/30/16 12/30/16 History [Tylenol #3] Albuterol Nebulized [Ventolin 2.5 mg INHALATION RT-Q6H PRN 12/30/16 12/30/16 History Nebulized] Amino Acids/Protein Hydrolys 30 ml PO BID 12/30/16 12/30/16 History [Pro-Stat Supplement] Atorvastatin [Lipitor] 10 mg PO HS 12/30/16 12/30/16 History Calamine/Zinc Oxide Lotion 1 applic TOPICAL Q6H PRN 12/30/16 12/30/16 History [Calamine Lotion] Dimethicone/Zinc Oxide [Inzo Zinc 1 applic TOPICAL DIRECTED PRN 12/30/1602/07 History Oxide Barrier Cream] Dimethicone/Zinc Oxide [Inzo Zinc 1 applic TOPICAL Q12H 12/30/16 12/30/16 History Oxide Barrier Cream] Ferrous Sulfate [Feosol] 325 mg PO DAILY@1700 12/30/16 12/30/16 History Omeprazole 20 mg PO AC-BRKFST 12/30/16 12/30/16 History Ondansetron [Zofran] 4 mg PO Q8HR PRN 12/30/16 12/30/16 History Potassium Chloride [Klor-Con 10] 10 meq PO DAILY 12/30/16 12/30/16 History Potassium Chloride [Klor-Con 20] 20 meq PO DIRECTED 12/30/16 12/30/16 History Vit C/E/Zn/Coppr/Lutein/Zeaxan 1 cap PO DAILY 12/30/16 12/30/16 History [Preservision Areds 2 Softgel] ceFAZolin [Kefzol] 2 gm IV TID@0600,1400,2200 12/30/16 12/30/16 History valACYclovir [Valtrex] 1,000 mg PO TID@0600,1400,2200 12/30/16 12/30/16 History Allergies Allergy/AdvReac Type Severity Reaction Status Date / Time bee venom protein (honey bee) Allergy Anaphylaxis Verified 12/30/16 06:57 Physical Exam Vitals: Vital Signs Temp Pulse Pulse Resp BP Pulse Ox 01/03/17 09:36 88 01/03/17 09:25 92 01/03/17 08:00 98.1 F 95 18 124/61 97 01/03/17 04:00 98 F 92 18 103/51 96 01/03/17 00:00 97.2 F L 88 18 97/55 97 01/02/17 20:00 97.1 F L 93 18 93/54 95 01/02/17 16:00 97.6 F 84 18 96/59 97 Intake and Output 01/02/17 01/03/17 01/03/17 22:59 06:59 14:59 Intake Total 750 0 Output Total 150 Balance 600 0 Intake: Intake, IV Titration 750 Amount Piperacillin-Tazobactam 3 50 .375 gm In Dextrose/Water 1 50ml.bag @ 12.5 mls/hr IVPB Q8HR [facility] Rx#: [id number] Sodium Chloride 0.9% 1, 700 000 ml @ 100 mls/hr IV . Q10H [facility] Rx#:[id number] Oral 0 Output: Gastric Drainage 150 Other: Voiding Method Bedpan Bedpan Diaper Incontinent Incontinent Incontinent # Voids 1 1 1 Weight 100.1 kg Head exam was generally normal. There was no scleral icterus or corneal arcus. Mucous membranes were moist. The patient is resting comfortably in bed and there is no signs of any respiratory distress or failure at this point. NG tube in place.Neck was supple and without jugular venous distension, thyromegaly , or carotid bruits. Carotids were easily palpable bilaterally. There was no adenopathy. Lung sounds are diminished bilaterally and there is few bibasilar crackles. Heart sounds are regular, normal S1-S2 and there is no significant murmurs appreciated. Abdomen is less distended compared to yesterday. Bowel sounds are present. There are however sluggish. No direct tenderness to no rebound tenderness. No guarding. Organs cannot be accurately palpated. Extremities reveal extensive edema both in the upper and lower extremities more than legs. No cyanosis or clubbing at this point. Skin, the patient has a dried up herpetic lesion over the right chest and neck area. Tenderness is improved. The left axillary abscess has been drained and the area is packed. No surrounding satellite is at this point. Psychiatric the patient is alert and awake and she follows some simple commands. No focal neurological deficit at this point. She has underlying schizophrenia. Results - Laboratory Findings CBC and BMP: 01/03/17 05:50 01/03/17 05:50 PT/INR, D-dimer PT 14.8 sec (9.0-12.0) H 12/31/16 03:49 INR 1.5 (<1.2) H 12/31/16 03:49 Abnormal lab findings: Abnormal Labs 12/30/16 12/30/16 12/30/16 01:20 01:20 01:20 RBC 3.18 L Hgb 10.0 L Hct 31.2 L MCV Plt Count Neutrophils # 8.2 H Lymphocytes # Lymphocytes # (Manual) PT INR APTT Sodium 130 L Potassium 3.3 L Chloride 87 L Carbon Dioxide 33 H BUN 30 H Creatinine Glucose 160 H Calcium Magnesium 1.3 L Total Creatine Kinase <20 L Total Protein 5.8 L Albumin 2.8 L Urine Appearance Urine Protein Urine Ketones Ur Leukocyte Esterase Urine WBC Ur Squamous Epith Cells Calcium Oxalate Crystal Urine Mucus Urine Yeast (Budding) 12/30/16 12/30/16 12/31/16 01:20 08:30 03:00 RBC 2.61 L Hgb 8.1 L D Hct 26.0 L MCV Plt Count 147 L Neutrophils # Lymphocytes # Lymphocytes # (Manual) 0.97 L PT 12.1 H INR 1.2 H APTT Sodium Potassium Chloride Carbon Dioxide BUN Creatinine Glucose Calcium Magnesium Total Creatine Kinase Total Protein Albumin Urine Appearance Cloudy H Urine Protein 1+ H Urine Ketones Trace H Ur Leukocyte Esterase Moderate H Urine WBC 19 H Ur Squamous Epith Cells 9 H Calcium Oxalate Crystal Occasional H Urine Mucus Rare H Urine Yeast (Budding) Many H 12/31/16 12/31/16 12/31/16 03:00 03:00 03:49 RBC Hgb Hct MCV Plt Count Neutrophils # Lymphocytes # Lymphocytes # (Manual) PT 14.8 H INR 1.5 H APTT Sodium 128 L Potassium Chloride 96 L Carbon Dioxide BUN 24 H Creatinine Glucose 138 H Calcium 7.8 L Magnesium 1.0 L* Total Creatine Kinase Total Protein Albumin Urine Appearance Urine Protein Urine Ketones Ur Leukocyte Esterase Urine WBC Ur Squamous Epith Cells Calcium Oxalate Crystal Urine Mucus Urine Yeast (Budding) 12/31/16 12/31/16 01/01/17 10:52 18:03 06:07 RBC 2.33 L Hgb 7.4 L Hct 23.9 L MCV 102.6 H Plt Count Neutrophils # Lymphocytes # 0.9 L Lymphocytes # (Manual) PT INR APTT 43.4 H 62.0 H Sodium Potassium Chloride Carbon Dioxide BUN Creatinine Glucose Calcium Magnesium Total Creatine Kinase Total Protein Albumin Urine Appearance Urine Protein Urine Ketones Ur Leukocyte Esterase Urine WBC Ur Squamous Epith Cells Calcium Oxalate Crystal Urine Mucus Urine Yeast (Budding) 01/01/17 01/01/17 01/02/17 06:07 06:07 05:53 RBC 2.44 L Hgb 7.7 L Hct 24.3 L MCV Plt Count Neutrophils # Lymphocytes # Lymphocytes # (Manual) PT INR APTT 62.6 H Sodium 128 L Potassium Chloride Carbon Dioxide 20 L BUN 28 H Creatinine 1.25 H Glucose 110 H Calcium 7.8 L Magnesium Total Creatine Kinase Total Protein Albumin Urine Appearance Urine Protein Urine Ketones Ur Leukocyte Esterase Urine WBC Ur Squamous Epith Cells Calcium Oxalate Crystal Urine Mucus Urine Yeast (Budding) 01/02/17 01/02/17 01/03/17 05:53 05:53 05:50 RBC 2.36 L Hgb 7.5 L Hct 24.2 L MCV 102.4 H Plt Count Neutrophils # Lymphocytes # Lymphocytes # (Manual) PT INR APTT 47.8 H Sodium 130 L Potassium Chloride Carbon Dioxide BUN 31 H Creatinine 1.47 H Glucose Calcium 8.3 L Magnesium Total Creatine Kinase Total Protein Albumin Urine Appearance Urine Protein Urine Ketones Ur Leukocyte Esterase Urine WBC Ur Squamous Epith Cells Calcium Oxalate Crystal Urine Mucus Urine Yeast (Budding) 01/03/17 05:50 RBC Hgb Hct MCV Plt Count Neutrophils # Lymphocytes # Lymphocytes # (Manual) PT INR APTT Sodium 132 L Potassium Chloride Carbon Dioxide 21 L BUN 33 H Creatinine 1.37 H Glucose 61 L Calcium 8.3 L Magnesium Total Creatine Kinase Total Protein Albumin Urine Appearance Urine Protein Urine Ketones Ur Leukocyte Esterase Urine WBC Ur Squamous Epith Cells Calcium Oxalate Crystal Urine Mucus Urine Yeast (Budding) - Diagnostic Findings Chest x-ray: image reviewed Assessment and Plan Plan: Assessment 1 left axillary abscess, status post incision and drainage with surrounding cellulitis. Cultures are showing Enterococcus faecalis and MSSA. The patient currently on IV Zosyn. The wound is packed. ID and general surgery are both on the case 2 small bowel obstruction/ileus, status post NG tube insertion, currently nothing by mouth 3 approximately 2 fibrillation currently in sinus rhythm 4 coronary artery disease with 50% lesion in the LAD 5 chronic lower extremities edema 6 schizophrenic disorder 7 hypertension 8 hyperlipidemia 9 generalized anxiety disorder 10 peripheral neuropathy 11 is independent diabetes mellitus 12 limited atelectatic changes in lung bases bilaterally, no signs of any acute respiratory failure 13 bronchial asthma currently inactive in stable 14 acute kidney injury, creatinine stable. 15 shingles affecting the right chest area, improved currently on Valtrex. Plan Bowel rest. NG tube in place. Gen. surgery is on the case. ID is on the case regarding the abscess and the patient is on the appropriate antibiotics. Monitor renal function. Respiratory status is stable. Aspiration precautions. We'll continue to follow.
--- NOTE | 2017-01-03 14:23 | P.PN ---
Subjective 67-year-old female came in for left axillary abscess. Abscess was drained during her previous hospitalization which appears to be infected again. And patient has a wound VAC in place. Inpatient the wound cultures are positive mild the bacterial including enterococcus, MSSA and patient is presently on Zosyn to cover anaerobes as well. I discontinue levofloxacin. Patient and that ended up having ileus versus partial small bowel obstruction for which patient will undergo abdominal CAT scan patient has an NG tube. And the patient went into atrial fibrillation couple days ago patient is presently rate controlled is on a small dose of her lip was and patient has acute renal failure secondary to intravascular volume depletion secondary to bowel obstruction and significant NG tube drainage yesterday. Patient did has minimal drainage today because of which I'll continue her on 100 mL of normal saline and the recheck the Trileptal lites and kidney function tomorrow. Patient does have some peripheral edema because of which I'm not hydrating headache aggressively. patient denied any chest pain palpitations, dysuria, denied any abdominal pain. Objective - Vital Signs Vital signs: Vital Signs Temp 98.1 F 01/03/17 08:00 Pulse 83 01/03/17 12:00 Resp 17 01/03/17 12:00 BP 103/58 01/03/17 12:00 Pulse Ox 99 01/03/17 12:00 Intake & Output 01/02/17 01/03/17 01/03/17 18:59 06:59 18:59 Intake Total 397 750 550 Output Total 150 Balance 397 600 550 Weight 100.1 kg Intake: Intake, IV Titration 750 550 Amount Piperacillin-Tazobactam 3 50 50 .375 gm In Dextrose/Water 1 50ml.bag @ 12.5 mls/hr IVPB Q8HR [facility] Rx#: [id number] Sodium Chloride 0.9% 1, 700 500 000 ml @ 100 mls/hr IV . Q10H [facility] Rx#:[id number] Oral 397 0 Output: Gastric Drainage 150 Other: Voiding Method Bedpan Bedpan Incontinent Incontinent Incontinent # Voids 1 1 1 - Exam PHYSICAL EXAMINATION: GENERAL: The patient is alert and oriented x3, not in any acute distress. Well developed, well nourished. HEENT: Pupils are round and equally reacting to light. EOMI. No scleral icterus. No conjunctival pallor. Normocephalic, atraumatic. No pharyngeal erythema. No thyromegaly. CARDIOVASCULAR: S1 and S2 present. No murmurs, rubs, or gallops. PULMONARY: Chest is clear to auscultation, no wheezing or crackles. ABDOMEN: Mildly distended abdomen sluggish bowel sounds patient has an NG tube in place. MUSCULOSKELETAL: No joint swelling or deformity. EXTREMITIES: No cyanosis, clubbing, or pedal edema. Does have left axillary abscess post packing and patient has a wound VAC in place. NEUROLOGICAL: Gross neurological examination did not reveal any focal deficits. SKIN: No rashes. - Labs CBC & Chem 7: 01/03/17 05:50 01/03/17 05:50 Labs: Abnormal Lab Results - Last 24 Hours (Table) 01/03/17 01/03/17 Range/Units 05:50 05:50 RBC 2.36 L (3.80-5.40) m/uL Hgb 7.5 L (11.4-16.0) gm/dL Hct 24.2 L (34.0-46.0) % MCV 102.4 H (80.0-100.0) fL Sodium 132 L (137-145) mmol/L Carbon Dioxide 21 L (22-30) mmol/L BUN 33 H (7-17) mg/dL Creatinine 1.37 H (0.52-1.04) mg/dL Glucose 61 L (74-99) mg/dL Calcium 8.3 L (8.4-10.2) mg/dL Microbiology - Last 24 Hours (Table) 12/30/16 03:15 Gram Stain - Preliminary Axilla - Left Wound Culture - Preliminary Ingrid albicans Enterococcus faecalis Staphylococcus aureus 12/30/16 01:20 Blood Culture - Preliminary Blood No Growth after 96 hours Assessment and Plan Plan: 1 left axillary abscess, status post incision and drainage with surrounding cellulitis. Cultures are showing Enterococcus faecalis and MSSA. The patient currently on IV Zosyn. The wound is packed. ID and general surgery are both on the case 2 small bowel obstruction/ileus, status post NG tube insertion, currently nothing by mouth 3 paroxysmal atrial fibrillation currently in sinus rhythm: Patient is on anticoagulation with Apaxiban. 4 coronary artery disease with 50% lesion in the LAD 5 chronic lower extremities edema 6 schizophrenic disorder 7 hypertension 8 hyperlipidemia 9 generalized anxiety disorder 10 peripheral neuropathy 11 Type 2 diabetes mellitus 12 acute renal failure and tachycardia: Secondary to intravascular depletion from significant NG tube drainage which is expected to improve with IV fluids. 13 bronchial asthma not in acute exacerbation 13 shingles affecting the right chest area, improved currently on Valtrex. For above-mentioned chronic medical problems patient will be continued on present medications will monitor and titrate as needed.
[2017-01-03] MEDS: FERROUS SULFATE 325 MG TAB PO SCH (17:09)
--- NOTE | 2017-01-03 19:31 | CT ---
EXAMINATION TYPE: CT abdomen pelvis wo con DATE OF EXAM: 01/03/2017 COMPARISON: Radiograph obtained on January 02. HISTORY: PNA, Fever and Sepsis CT DLP: 1902.30 mGycm Automated exposure control for dose reduction was used. TECHNIQUE: Helical acquisition of images was performed from the lung bases through the pelvis. FINDINGS: LUNG BASES: There is an opacity in the left lung base which likely represents a pneumonia. There is a lso dependent atelectasis noted bilaterally. There is a wound noted in the right chest wall. With ext ensive subcutaneous emphysema. LIVER/GB: Surgical clips are noted in the gallbladder fossa. The liver is unremarkable. PANCREAS: Diffuse fatty atrophy of the pancreas is noted. SPLEEN: No significant abnormality is seen. ADRENALS: No significant abnormality is seen. KIDNEYS: Mild hydronephrosis is noted in both kidneys which could be due to the patient not voiding a s the urinary bladder is very distended. FREE AIR: No free air is visualized RETROPERITONEAL ADENOPATHY: None visualized REPRODUCTIVE ORGANS: No significant abnormality is seen URINARY BLADDER: Urinary bladder is very distended. PELVIC ADENOPATHY: None visualized. OSSEOUS STRUCTURES: No significant abnormality is seen. BOWEL: No significant abnormality is seen. OTHER: None IMPRESSION: PATIENT URINARY BLADDER IS VERY DISTENDED AND THERE IS MILD HYDRONEPHROSIS. THE ETIOLOGY OF THE HYDRO NEPHROSIS IS FELT TO BE THE LACK OF VOIDING. Findings were discussed over the phone with the patient's nurse [place] by Dr. Shelton. It is unknown whe ther the patient has voided but the patient's nurse will investigate.
[2017-01-03] MEDS: valACYclovir 500 MG TAB PO SCH (22:17)
[2017-01-03] MEDS: QUEtiapine 400 MG TAB PO SCH (22:18)
[2017-01-03] MEDS: ATORVASTATIN 10 MG TAB PO SCH (22:18)
[2017-01-03] MEDS: Acetaminophen-Codeine 300-30mg TAB PO PRN (22:34)
[2017-01-04] MEDS: PIPERACILLIN-TAZOBACTAM 3.375 GM in DEXTROSE/WATER 1 50ML.BAG IVPB SCH ×4 (00:04→23:47)
[2017-01-04] MEDS: valACYclovir HCL 1,000 MG TABLET PO SCH (02:03)
[2017-01-04] MEDS: SODIUM CHLORIDE 0.9% 1,000 ML IV SCH (05:34)
[2017-01-04] MEDS: PANTOPRAZOLE 40 MG TABLET PO SCH (05:47)
[2017-01-04] MEDS: valACYclovir 500 MG TAB PO SCH ×3 (05:47→22:21)
[2017-01-04 06:31] LABS: Basophils % (A) 0 %; CH 31.7; CHCM 30.6; Eosinophils % (A) 1 %; HCT 24.6 % (34.0-46.0); HGB 7.4 gm/dL (11.4-16.0); Hypochromasia Slight; Luc % (Auto) 2; Lymphocytes # (A) 0.9 k/uL (1.0-4.8); Lymphocytes % (A) 17 %; MCH 31.2 pg (25.0-35.0); MCV 104.1 fL (80.0-100.0); Macrocytosis Slight; Mean Platelet Volume 8.4; Monocytes # (A) 0.2 k/uL (0-1.0); Monocytes % (A) 3 %; Neutrophils # (A) 4.2 k/uL (1.3-7.7); Neutrophils % (A) 77 %; RBC 2.36 m/uL (3.80-5.40); RDW 14.1 % (11.5-15.5); WBC 5.4 k/uL (3.8-10.6); WBC (Perox) 5.93
[2017-01-04 06:56] LABS: Calcium 8.4 mg/dL (8.4-10.2); Potassium 3.5 mmol/L (3.5-5.1)
[2017-01-04 07:03] LABS: Glucose,Whole Blood 45 mg/dL (75-99)
[2017-01-04] MEDS: IPRATROPIUM-ALBUTEROL 3 ML NEB INHALATION SCH ×4 (07:08→19:24)
[2017-01-04] MEDS: BUDESONIDE 0.5 MG/2 ML NEBU INHALATION SCH ×2 (07:08→19:23)
[2017-01-04] MEDS: DEXTROSE 5%-0.9% NACL 1,000 ML IV SCH ×2 (07:29→17:50)
[2017-01-04 07:35] LABS: Glucose,Whole Blood 63 mg/dL (75-99)
[2017-01-04 08:34] LABS: Glucose,Whole Blood 86 mg/dL (75-99)
[2017-01-04] MEDS: APIXABAN 2.5 MG TABLET PO SCH ×2 (09:30→22:04)
[2017-01-04] MEDS: ASPIRIN 81 MG PO SCH (09:31)
[2017-01-04] MEDS: CHOLECALCIFEROL 1,000 UNIT TAB PO SCH (09:31)
[2017-01-04] MEDS: CITALOPRAM HYDROBROMIDE 20 MG TAB PO SCH (09:31)
[2017-01-04] MEDS: GABAPENTIN 300 MG CAP PO SCH ×2 (09:31→17:50)
[2017-01-04] MEDS: DIGOXIN 125 MCG TAB PO SCH (09:31)
[2017-01-04] MEDS: LORATADINE 10 MG TAB PO SCH (09:32)
[2017-01-04] MEDS: VIT A,C & E-LUTEIN-MINERALS 1 EACH TAB PO SCH (09:32)
[2017-01-04] MEDS: SENNOSIDES 8.6 MG TAB PO SCH ×2 (09:32→17:50)
[2017-01-04] MEDS: METOPROLOL TARTRATE 25 MG TAB PO SCH ×3 (09:32→22:04)
[2017-01-04] MEDS: POTASSIUM CHLORIDE ER 10 MEQ TAB.ER.PRT PO SCH (09:32)
--- NOTE | 2017-01-04 13:53 | P.PN ---
Subjective Principal diagnosis: Acute left axillary abscess, status post incision and drainage. A 67-year-old female patient, correction resident, presented to the hospital because of pain in her right neck area. The patient is currently being treated for shingles in her right neck and chest area. She is also found to have an abscess in her left axilla for which he underwent an incision and drainage and a wound VAC was applied. ID was also evaluating this patient and handling the antibiotic treatment. The wound VAC itself was uncomfortable. This was subsequently removed and appropriate packing was applied. No fever. No chills. No emesis. Cultures showing Ingrid albicans, Enterococcus faecalis and MSSA. Currently the patient is on IV Zosyn. The patient subsequently started having feeling of bloating and developed abdominal distention. A fasting amount of the abdomen was done and showed ileus/bowel obstruction PA general surgery consultation was obtained. NG tube was placed and there is significant amount of output more than 600 mL since the NG tube was inserted. Currently the patient is resting comfortably in bed. No signs of any respiratory distress. She is on 2 L of oxygen nasal cannula. No cough or sputum production. No clear-cut history of aspiration. The patient apparently was throwing up earlier. The patient is denying have abdominal pain. Abdomen seems to be less distended. There is extensive lower extremity edema. The patient also has issues with proximity fibrillation and her current rhythm is sinus. She was started on anti-coagulation with cardiology. She is known to have coronary artery disease and she is also diabetic, insulin-dependent. She suffers from schizophrenic disorder. CODE STATUS is full. Patient was reevaluated today on 01/04/2017, basically she is about the same, remains on IV antibiotics, her wound VAC has been removed, patient is not in any form of distress. CBC showed WBC count of 5.4 hemoglobin is 7.4 BUN is 34 creatinine is 1.38. Blood sugar seems to be running low earlier today. That is being addressed by the admitting physician. Objective - Vital Signs Vital signs: Vital Signs Temp 97 F L 01/04/17 12:00 Pulse 99 01/04/17 12:00 Resp 20 01/04/17 12:00 BP 114/60 01/04/17 12:00 Pulse Ox 94 L 01/04/17 12:00 Intake & Output 01/03/17 01/04/17 01/04/17 18:59 06:59 18:59 Intake Total 550 800 Output Total 300 400 Balance 250 400 Weight 0 g 0 g Intake: Intake, IV Titration 550 800 Amount Piperacillin-Tazobactam 3 50 100 .375 gm In Dextrose/Water 1 50ml.bag @ 12.5 mls/hr IVPB Q8HR [facility] Rx#: [id number] Sodium Chloride 0.9% 1, 500 700 000 ml @ 100 mls/hr IV . Q10H [facility] Rx#:[id number] Oral 0 Output: Gastric Drainage 300 400 Other: Voiding Method Incontinent Incontinent Incontinent # Voids 1 1 1 - Exam Head exam was generally normal. There was no scleral icterus or corneal arcus. Mucous membranes were moist. The patient is resting comfortably in bed and there is no signs of any respiratory distress or failure at this point. NG tube in place.Neck was supple and without jugular venous distension, thyromegaly , or carotid bruits. Carotids were easily palpable bilaterally. There was no adenopathy. Lung sounds are diminished bilaterally and there is few bibasilar crackles. Heart sounds are regular, normal S1-S2 and there is no significant murmurs appreciated. Abdomen is less distended compared to yesterday. Bowel sounds are present. There are however sluggish. No direct tenderness to no rebound tenderness. No guarding. Organs cannot be accurately palpated. Extremities reveal extensive edema both in the upper and lower extremities more than legs. No cyanosis or clubbing at this point. Skin, the patient has a dried up herpetic lesion over the right chest and neck area. Tenderness is improved. The left axillary abscess has been drained and the area is packed. No surrounding satellite is at this point. Psychiatric the patient is alert and awake and she follows some simple commands. No focal neurological deficit at this point. She has underlying schizophrenia. - Labs CBC & Chem 7: 01/04/17 06:12 01/04/17 06:12 Labs: Abnormal Lab Results - Last 24 Hours (Table) 01/04/17 01/04/17 01/04/17 Range/Units 06:12 06:12 07:02 RBC 2.36 L (3.80-5.40) m/uL Hgb 7.4 L (11.4-16.0) gm/dL Hct 24.6 L (34.0-46.0) % MCV 104.1 H (80.0-100.0) fL MCHC 30.0 L (31.0-37.0) g/dL Lymphocytes # 0.9 L (1.0-4.8) k/uL Sodium 136 L (137-145) mmol/L Carbon Dioxide 17 L (22-30) mmol/L BUN 34 H (7-17) mg/dL Creatinine 1.38 H (0.52-1.04) mg/dL Glucose 42 L* (74-99) mg/dL POC Glucose (mg/dL) 45 L (75-99) mg/dL 01/04/17 Range/Units 07:33 RBC (3.80-5.40) m/uL Hgb (11.4-16.0) gm/dL Hct (34.0-46.0) % MCV (80.0-100.0) fL MCHC (31.0-37.0) g/dL Lymphocytes # (1.0-4.8) k/uL Sodium (137-145) mmol/L Carbon Dioxide (22-30) mmol/L BUN (7-17) mg/dL Creatinine (0.52-1.04) mg/dL Glucose (74-99) mg/dL POC Glucose (mg/dL) 63 L (75-99) mg/dL Microbiology - Last 24 Hours (Table) 12/30/16 03:15 Gram Stain - Final Axilla - Left Wound Culture - Final Ingrid albicans Enterococcus faecalis Staphylococcus aureus 01/01/17 12:58 Gram Stain - Final Sputum Sputum Culture - Final 12/30/16 01:20 Blood Culture - Preliminary Blood No Growth after 120 hours Assessment and Plan Plan: 1 left axillary abscess, status post incision and drainage with surrounding cellulitis. Cultures are showing Enterococcus faecalis and MSSA. The patient currently on IV Zosyn. The wound is packed. ID and general surgery are both on the case 2 small bowel obstruction/ileus, status post NG tube insertion, currently nothing by mouth 3 approximately 2 fibrillation currently in sinus rhythm 4 coronary artery disease with 50% lesion in the LAD 5 chronic lower extremities edema 6 schizophrenic disorder 7 hypertension 8 hyperlipidemia 9 generalized anxiety disorder 10 peripheral neuropathy 11 is independent diabetes mellitus 12 limited atelectatic changes in lung bases bilaterally, no signs of any acute respiratory failure 13 bronchial asthma currently inactive in stable 14 acute kidney injury, creatinine stable. 15 shingles affecting the right chest area, improved currently on Valtrex. Recommendation: Continue present treatment plan, patient is being followed by many consultants, we will sign off, and see on when necessary basis. Time with Patient: Less than 30
[2017-01-04] MEDS: FERROUS SULFATE 325 MG TAB PO SCH (17:49)
--- NOTE | 2017-01-04 17:56 | P.PN ---
Progress Note - Text the patient is resting comfortably in her bed. She is denying any significant abdominal pain. Her NG tube has put out approximately 400 mL during the day today. On exam her vital signs are stable. Her abdomen is soft. There is minimal epigastric tenderness. There is no rebound or guarding. Patient's CAT scan shows no sign of any intestinal obstruction. Patient's ileus is resolving. Hopefully we'll discontinue her NG tube in the a.m.
[2017-01-04] MEDS: ZINC OXIDE 20% OINT 28.4 GM TUBE TOPICAL SCH (17:57)
--- NOTE | 2017-01-04 20:37 | P.PN ---
Subjective Principal diagnosis: Pain to right neck 61-year-old female presents to the emergency center from the [facility] care facility where she has been receiving care for her significant abscess to her left axillary area status post incision and drainage. Apparently she started to have change in the drainage despite the wound VAC. She is having some increasing discomfort. She was becoming weak and tired. She then developed a significant rash that started at the base of the neck to the right side. It was a blistering rash that was extremely painful. She believes she had a low-grade fever. Because of her acute changes status she was sent to the emergency center and was admitted. With evidence of the significant rash and the ongoing infection to the left axillary area the infectious diseases consultation was requested. At this time she seems a bit more awake and alert than admission. She is able to relate to some pain at the left axillary area but it is not severe at this time. The wound VAC was minimally uncomfortable. She relates that her great amount of pain is to the right neck where she has the blistering rash. Does not believe she's had a high-grade fever or chills. Feels quite poorly overall. She's had some nausea without emesis. She denying significant abdominal pain at this time. She is not having significant cough or sputum production no hemoptysis. Feels better today. Drainage is improved. Less pain to the left axilla. Otherwise been having some shortness of breath. Objective - Vital Signs Vital signs: Vital Signs Temp 97.4 F L 01/04/17 16:00 Pulse 98 01/04/17 16:00 Resp 20 01/04/17 16:00 BP 105/66 01/04/17 16:00 Pulse Ox 94 L 01/04/17 16:00 Intake & Output 01/04/17 01/04/17 01/05/17 06:59 18:59 06:59 Intake Total 800 Output Total 400 Balance 400 Weight 0 g 99.337 kg Intake: Intake, IV Titration 800 Amount Piperacillin-Tazobactam 3 100 .375 gm In Dextrose/Water 1 50ml.bag @ 12.5 mls/hr IVPB Q8HR [facility] Rx#: [id number] Sodium Chloride 0.9% 1, 700 000 ml @ 100 mls/hr IV . Q10H [facility] Rx#:[id number] Output: Gastric Drainage 400 Other: Voiding Method Incontinent Incontinent # Voids 1 4 - Exam 61-year-old woman who appears older than her stated age. More interactive than during her last hospital stay. But his still compromised. HEENT: Anicteric conjunctiva are pink and moist nasal mucosa grossly intact without significant lesions, there is no thrush. Oral mucosa is dry Neck: The neck is supple without significant lymphadenopathy or thyromegaly. Lungs: Good bilateral air entry without significant crackles or wheezing. There is no significant bronchial sounds. There is no egophony or dullness. Heart: Regular rate and rhythm with an audible S1-S2, no S3 no S4. There is no significant murmur click or rub, PMI was nondisplaced. Abdomen: Positive bowel sounds soft and nontender without palpable masses or organomegaly. There was no guarding or rebound. Extremities: The upper extremities have excellent pulses they are symmetric, no significant petechiae or telangiectasia. No splinter hemorrhages were noted. The left axillary area is evidence of site of the incision and drainage. The cavity is noted. Please see the nursing photography for its site measurement. There is evidence of some purulence at the base. Cultures have been obtained. . Area was cleansed with saline and silver rope dressing is applied. It is slightly tender but not severely so. Skin: Evidence of the dermatomal rash onto the right neck onto the anterior chest wall. It does not penetrate over the midline of the shoulder. The vesicles are drying. It has not extended. Much less tender. Neuro: Arousable did interaction to some simple questions. More interactive than her last visit however. - Labs CBC & Chem 7: 01/04/17 06:12 01/04/17 06:12 Labs: Abnormal Lab Results - Last 24 Hours (Table) 01/04/17 01/04/17 01/04/17 Range/Units 06:12 06:12 07:02 RBC 2.36 L (3.80-5.40) m/uL Hgb 7.4 L (11.4-16.0) gm/dL Hct 24.6 L (34.0-46.0) % MCV 104.1 H (80.0-100.0) fL MCHC 30.0 L (31.0-37.0) g/dL Lymphocytes # 0.9 L (1.0-4.8) k/uL Sodium 136 L (137-145) mmol/L Carbon Dioxide 17 L (22-30) mmol/L BUN 34 H (7-17) mg/dL Creatinine 1.38 H (0.52-1.04) mg/dL Glucose 42 L* (74-99) mg/dL POC Glucose (mg/dL) 45 L (75-99) mg/dL 01/04/17 Range/Units 07:33 RBC (3.80-5.40) m/uL Hgb (11.4-16.0) gm/dL Hct (34.0-46.0) % MCV (80.0-100.0) fL MCHC (31.0-37.0) g/dL Lymphocytes # (1.0-4.8) k/uL Sodium (137-145) mmol/L Carbon Dioxide (22-30) mmol/L BUN (7-17) mg/dL Creatinine (0.52-1.04) mg/dL Glucose (74-99) mg/dL POC Glucose (mg/dL) 63 L (75-99) mg/dL Microbiology - Last 24 Hours (Table) 12/30/16 03:15 Gram Stain - Final Axilla - Left Wound Culture - Final Ingrid albicans Enterococcus faecalis Staphylococcus aureus 01/01/17 12:58 Gram Stain - Final Sputum Sputum Culture - Final 12/30/16 01:20 Blood Culture - Preliminary Blood No Growth after 120 hours Laboratory Results WBC 5.4 k/uL (3.8-10.6) 01/04/17 06:12 RBC 2.36 m/uL (3.80-5.40) L 01/04/17 06:12 Hgb 7.4 gm/dL (11.4-16.0) L 01/04/17 06:12 Hct 24.6 % (34.0-46.0) L 01/04/17 06:12 MCV 104.1 fL (80.0-100.0) H 01/04/17 06:12 MCH 31.2 pg (25.0-35.0) 01/04/17 06:12 MCHC 30.0 g/dL (31.0-37.0) L 01/04/17 06:12 RDW 14.1 % (11.5-15.5) 01/04/17 06:12 Plt Count 271 k/uL (150-450) 01/04/17 06:12 Neutrophils % 77 % 01/04/17 06:12 Neutrophils % (Manual) 70 % 01/02/17 05:53 Band Neutrophils % 2.0 % 01/02/17 05:53 Lymphocytes % 17 % 01/04/17 06:12 Lymphocytes % (Manual) 20 % 01/02/17 05:53 Monocytes % 3 % 01/04/17 06:12 Monocytes % (Manual) 5 % 01/02/17 05:53 Eosinophils % 1 % 01/04/17 06:12 Eosinophils % (Manual) 1 % 01/02/17 05:53 Basophils % 0 % 01/04/17 06:12 Metamyelocytes % 3 % 01/02/17 05:53 Neutrophils # 4.2 k/uL (1.3-7.7) 01/04/17 06:12 Neutrophils # (Manual) 5.90 k/uL (1.3-7.7) 01/02/17 05:53 Lymphocytes # 0.9 k/uL (1.0-4.8) L 01/04/17 06:12 Lymphocytes # (Manual) 1.64 k/uL (1.0-4.8) 01/02/17 05:53 Monocytes # 0.2 k/uL (0-1.0) 01/04/17 06:12 Monocytes # (Manual) 0.41 k/uL (0-1.0) 01/02/17 05:53 Eosinophils # 0.0 k/uL (0-0.7) 01/04/17 06:12 Eosinophils # (Manual) 0.08 k/uL (0-0.7) 01/02/17 05:53 Basophils # 0.0 k/uL (0-0.2) 01/04/17 06:12 Nucleated RBCs 0 /100 WBC (0-0) 01/02/17 05:53 Manual Slide Review Performed 01/03/17 05:50 Polychromasia Present 01/03/17 05:50 Hypochromasia Slight 01/04/17 06:12 Poikilocytosis (manual Present 01/03/17 05:50 Macrocytosis Slight 01/04/17 06:12 PT 14.8 sec (9.0-12.0) H 12/31/16 03:49 INR 1.5 (<1.2) H 12/31/16 03:49 APTT 29.1 sec (22.0-30.0) 01/03/17 05:50 Sodium 136 mmol/L (137-145) L 01/04/17 06:12 Potassium 3.5 mmol/L (3.5-5.1) 01/04/17 06:12 Chloride 107 mmol/L (98-107) 01/04/17 06:12 Carbon Dioxide 17 mmol/L (22-30) L 01/04/17 06:12 Anion Gap 12 mmol/L 01/04/17 06:12 BUN 34 mg/dL (7-17) H 01/04/17 06:12 Creatinine 1.38 mg/dL (0.52-1.04) H 01/04/17 06:12 Est GFR (MDRD) Af Amer 47 (>60 ml/min/1.73 sqM) 01/04/17 06:12 Est GFR (MDRD) Non-Af 39 (>60 ml/min/1.73 sqM) 01/04/17 06:12 Glucose 42 mg/dL (74-99) L* 01/04/17 06:12 POC Glucose (mg/dL) 86 mg/dL (75-99) 01/04/17 08:14 POC Glu Rip Sawyer DALIA Vickie Raya 01/04/17 08:14 Plasma Lactic Acid Britton 1.4 mmol/L (0.7-2.0) 12/31/16 02:50 Calcium 8.4 mg/dL (8.4-10.2) 01/04/17 06:12 Phosphorus 2.8 mg/dL (2.5-4.5) 12/30/16 01:20 Magnesium 2.2 mg/dL (1.6-2.3) 01/02/17 05:53 Total Bilirubin 0.6 mg/dL (0.2-1.3) 12/30/16 01:20 AST 25 U/L (14-36) 12/30/16 01:20 ALT 24 U/L (9-52) 12/30/16 01:20 Alkaline Phosphatase 116 U/L (38-126) 12/30/16 01:20 Total Creatine Kinase <20 U/L (30-135) L 12/30/16 01:20 CK-MB (CK-2) 0.4 ng/mL (0.0-2.4) 12/30/16 01:20 CK-MB (CK-2) Rel Index 0.0 12/30/16 01:20 Troponin I <0.012 ng/mL (0.000-0.034) 12/30/16 01:20 Total Protein 5.8 g/dL (6.3-8.2) L 12/30/16 01:20 Albumin 2.8 g/dL (3.5-5.0) L 12/30/16 01:20 Urine Color Yellow 12/30/16 08:30 Urine Appearance Cloudy (Clear) H 12/30/16 08:30 Urine pH 6.0 (5.0-8.0) 12/30/16 08:30 Ur Specific [place] 1.019 (1.001-1.035) 12/30/16 08:30 Urine Protein 1+ (Negative) H 12/30/16 08:30 Urine Glucose (UA) Negative (Negative) 12/30/16 08:30 Urine Ketones Trace (Negative) H 12/30/16 08:30 Urine Blood Negative (Negative) 12/30/16 08:30 Urine Nitrite Negative (Negative) 12/30/16 08:30 Urine Bilirubin Negative (Negative) 12/30/16 08:30 Urine Urobilinogen <2.0 mg/dL (<2.0) 12/30/16 08:30 Ur Leukocyte Esterase Moderate (Negative) H 12/30/16 08:30 Urine RBC 5 /hpf (0-5) 12/30/16 08:30 Urine WBC 19 /hpf (0-5) H 12/30/16 08:30 Ur Squamous Epith Cells 9 /hpf (0-4) H 12/30/16 08:30 Calcium Oxalate Crystal Occasional /hpf (None) H 12/30/16 08:30 Urine Mucus Rare /hpf (None) H 12/30/16 08:30 Urine Yeast (Budding) Many /hpf (None) H 12/30/16 08:30 Microbiology 12/30/16 03:15 Axilla - Left Gram Stain - Final 12/30/16 03:15 Axilla - Left Wound Culture - Final Ingrid albicans Enterococcus faecalis Staphylococcus aureus 01/01/17 12:58 Sputum Gram Stain - Final 01/01/17 12:58 Sputum Sputum Culture - Final 12/30/16 01:20 Blood Blood Culture - Preliminary No Growth after 120 hours 12/30/16 08:30 Urine,Voided Urine Culture - Final Assessment and Plan (1) Varicella zoster Status: Acute (2) Schizo affective schizophrenia Status: Acute (3) Abscess of axilla, left Narrative/Plan: 61-year-old female presents from the [facility] care facility because of onset of severe rash to her right neck as well as low-grade fever and worsening overall status. Patient is evidence of the varicella-zoster of the right neck and upper chest. Classic blistering and tenderness is noted. She had been started on Valtrex will complete soon. Steroids were not started and will not be initiated at this time. The patient has evidence of the extensive axillary abscesses status post incision and drainage. It is of decreased size with the local care of that she' s been receiving especially with the wound VAC. However now appears to have a secondary infection. Wound VAC is put on hold. We'll place silver dressing into the base. Further cultures obtained Antibiotic therapy with Zosyn will be utilized with covers for the MSSA, strep in the anaerobic gram-negative bacilli that were isolated. Enterococcus also isolated for which the piperacillin will give adequate coverage . She does have moderate protein calorie malnutrition and will need further improved nutrition to help her healing. It appears that her psychiatric status is stable. Status: Acute (4) MSSA (methicillin susceptible Staphylococcus aureus) infection Status: Acute
[2017-01-04] MEDS: QUEtiapine 400 MG TAB PO SCH (22:04)
[2017-01-04] MEDS: ATORVASTATIN 10 MG TAB PO SCH (22:04)
--- NOTE | 2017-01-04 22:26 | P.PN ---
Subjective Principal diagnosis: Left axillary abscess 67-year-old female came in for left axillary abscess. Abscess was drained during her previous hospitalization which appears to be infected again. And patient has a wound VAC in place. Inpatient the wound cultures are positive mild the bacterial including enterococcus, MSSA and patient is presently on Zosyn to cover anaerobes as well. I discontinue levofloxacin. Patient and that ended up having ileus versus partial small bowel obstruction for which patient will undergo abdominal CAT scan patient has an NG tube. And the patient went into atrial fibrillation couple days ago patient is presently rate controlled is on a small dose of her lip was and patient has acute renal failure secondary to intravascular volume depletion secondary to bowel obstruction and significant NG tube drainage yesterday. Patient did has minimal drainage today because of which I'll continue her on 100 mL of normal saline and the recheck the Trileptal lites and kidney function tomorrow. Patient does have some peripheral edema because of which I'm not hydrating headache aggressively. patient denied any chest pain palpitations, dysuria, denied any abdominal pain. On 01/04/2017 Patient denies any new complaints left axillary pain improved only work was removed. No fever no chills. Her CBCs and 40s this morning. Patient is currently nothing by mouth and is on NG tube. Abdominal pain improved computed tomography scan of the abdomen did not show any obstruction. Pulmonary and general surgery and ID is following this patient. Objective - Vital Signs Vital signs: Vital Signs Temp 97.4 F L 01/04/17 16:00 Pulse 98 01/04/17 16:00 Resp 20 01/04/17 16:00 BP 105/66 01/04/17 16:00 Pulse Ox 94 L 01/04/17 16:00 Intake & Output 01/04/17 01/04/17 01/05/17 06:59 18:59 06:59 Intake Total 800 Output Total 400 Balance 400 Weight 0 g 99.337 kg Intake: Intake, IV Titration 800 Amount Piperacillin-Tazobactam 3 100 .375 gm In Dextrose/Water 1 50ml.bag @ 12.5 mls/hr IVPB Q8HR [facility] Rx#: [id number] Sodium Chloride 0.9% 1, 700 000 ml @ 100 mls/hr IV . Q10H [facility] Rx#:[id number] Output: Gastric Drainage 400 Other: Voiding Method Incontinent Incontinent # Voids 1 4 - Exam GENERAL: The patient is alert and oriented x3, not in any acute distress. Well developed, well nourished. HEENT: Pupils are round and equally reacting to light. EOMI. No scleral icterus. No conjunctival pallor. Normocephalic, atraumatic. No pharyngeal erythema. No thyromegaly. CARDIOVASCULAR: S1 and S2 present. No murmurs, rubs, or gallops. PULMONARY: Chest is clear to auscultation, no wheezing or crackles. ABDOMEN: Mildly distended abdomen sluggish bowel sounds patient has an NG tube in place. MUSCULOSKELETAL: No joint swelling or deformity. EXTREMITIES: No cyanosis, clubbing, or pedal edema. Does have left axillary abscess post packing and patient has a wound VAC in place. NEUROLOGICAL: Gross neurological examination did not reveal any focal deficits. SKIN: No rashes. - Labs CBC & Chem 7: 01/04/17 06:12 01/04/17 06:12 Labs: Abnormal Lab Results - Last 24 Hours (Table) 01/04/17 01/04/17 01/04/17 Range/Units 06:12 06:12 07:02 RBC 2.36 L (3.80-5.40) m/uL Hgb 7.4 L (11.4-16.0) gm/dL Hct 24.6 L (34.0-46.0) % MCV 104.1 H (80.0-100.0) fL MCHC 30.0 L (31.0-37.0) g/dL Lymphocytes # 0.9 L (1.0-4.8) k/uL Sodium 136 L (137-145) mmol/L Carbon Dioxide 17 L (22-30) mmol/L BUN 34 H (7-17) mg/dL Creatinine 1.38 H (0.52-1.04) mg/dL Glucose 42 L* (74-99) mg/dL POC Glucose (mg/dL) 45 L (75-99) mg/dL 01/04/17 Range/Units 07:33 RBC (3.80-5.40) m/uL Hgb (11.4-16.0) gm/dL Hct (34.0-46.0) % MCV (80.0-100.0) fL MCHC (31.0-37.0) g/dL Lymphocytes # (1.0-4.8) k/uL Sodium (137-145) mmol/L Carbon Dioxide (22-30) mmol/L BUN (7-17) mg/dL Creatinine (0.52-1.04) mg/dL Glucose (74-99) mg/dL POC Glucose (mg/dL) 63 L (75-99) mg/dL Microbiology - Last 24 Hours (Table) 12/30/16 03:15 Gram Stain - Final Axilla - Left Wound Culture - Final Ingrid albicans Enterococcus faecalis Staphylococcus aureus 01/01/17 12:58 Gram Stain - Final Sputum Sputum Culture - Final 12/30/16 01:20 Blood Culture - Preliminary Blood No Growth after 120 hours Assessment and Plan Plan: 1 left axillary abscess, status post incision and drainage with surrounding cellulitis. Cultures are showing Enterococcus faecalis and MSSA. The patient currently on IV Zosyn. The wound is packed. ID and general surgery are both on the case. Wound VAC was removed. 2 small bowel obstruction/ileus, status post NG tube insertion, currently nothing by mouth. Abdominal pain improved, anticipate discontinue NG tube tomorrow. 3 paroxysmal atrial fibrillation currently in sinus rhythm: Patient is on anticoagulation with Apaxiban. 4 coronary artery disease with 50% lesion in the LAD 5 chronic lower extremities edema 6 schizophrenic disorder 7 hypertension 8 hyperlipidemia 9 generalized anxiety disorder 10 peripheral neuropathy 11 Type 2 diabetes mellitus 12 acute renal failure and tachycardia: Secondary to intravascular depletion from significant NG tube drainage which is expected to improve with IV fluids. 13 bronchial asthma not in acute exacerbation 13 shingles affecting the right chest area, improved currently on Valtrex. For above-mentioned chronic medical problems patient will be continued on present medications. will monitor and titrate as needed. Time with Patient: Greater than 30
[2017-01-05] MEDS: ZINC OXIDE 20% OINT 28.4 GM TUBE TOPICAL SCH ×3 (04:32→23:33)
[2017-01-05] MEDS: DEXTROSE 5%-0.9% NACL 1,000 ML IV SCH ×3 (06:25→23:32)
[2017-01-05] MEDS: valACYclovir 500 MG TAB PO SCH ×3 (06:25→20:29)
[2017-01-05] MEDS: PANTOPRAZOLE 40 MG TABLET PO SCH (06:26)
[2017-01-05 07:41] LABS: Calcium 8.3 mg/dL (8.4-10.2)
[2017-01-05 07:54] LABS: Potassium 4.7 mmol/L (3.5-5.1)
[2017-01-05 08:28] LABS: CH 31.1; CHCM 32.2; HCT 25.3 % (34.0-46.0); HDW 2.87; HGB 8.6 gm/dL (11.4-16.0); Immature Gran Flag Marked; MCH 33.1 pg (25.0-35.0); MCHC 34.2 g/dL (31.0-37.0); Mean Platelet Volume 8.2; RBC 2.61 m/uL (3.80-5.40); RDW 13.8 % (11.5-15.5); WBC 8.4 k/uL (3.8-10.6); WBC (Perox) 8.21
[2017-01-05 08:29] LABS: MCV 96.9 fL (80.0-100.0)
[2017-01-05 08:30] LABS: Glucose,Whole Blood 128 mg/dL (75-99)
[2017-01-05] MEDS: PIPERACILLIN-TAZOBACTAM 3.375 GM in DEXTROSE/WATER 1 50ML.BAG IVPB SCH ×3 (09:16→23:32)
[2017-01-05] MEDS: IPRATROPIUM-ALBUTEROL 3 ML NEB INHALATION SCH ×4 (09:32→20:04)
[2017-01-05] MEDS: BUDESONIDE 0.5 MG/2 ML NEBU INHALATION SCH ×2 (09:32→20:03)
[2017-01-05] MEDS: CITALOPRAM HYDROBROMIDE 20 MG TAB PO SCH (09:46)
[2017-01-05] MEDS: APIXABAN 2.5 MG TABLET PO SCH ×2 (09:46→20:29)
[2017-01-05] MEDS: CHOLECALCIFEROL 1,000 UNIT TAB PO SCH (09:46)
[2017-01-05] MEDS: ASPIRIN 81 MG PO SCH (09:46)
[2017-01-05] MEDS: POTASSIUM CHLORIDE ER 10 MEQ TAB.ER.PRT PO SCH (09:47)
[2017-01-05] MEDS: GABAPENTIN 300 MG CAP PO SCH ×2 (09:47→16:03)
[2017-01-05] MEDS: METOPROLOL TARTRATE 25 MG TAB PO SCH ×3 (09:47→20:29)
[2017-01-05] MEDS: SENNOSIDES 8.6 MG TAB PO SCH ×2 (09:47→16:03)
[2017-01-05] MEDS: LORATADINE 10 MG TAB PO SCH (09:47)
[2017-01-05] MEDS: DIGOXIN 125 MCG TAB PO SCH (09:47)
[2017-01-05] MEDS: VIT A,C & E-LUTEIN-MINERALS 1 EACH TAB PO SCH (09:48)
[2017-01-05] MEDS: CYANOCOBALAMIN 500 MCG TAB PO SCH (09:48)
[2017-01-05 10:50] LABS: Add Differential Manual Differential
[2017-01-05 10:56] LABS: Band Neutrophils % 1.5 %; Metamyelocytes % 2 %; Myelocytes % 3 %; Nucleated Red Blood Cells 0 /100 WBC (0-0); Total Cells Counted 200
[2017-01-05 10:57] LABS: Manual Review Performed; Polychromasia Present
--- NOTE | 2017-01-05 11:46 | CDI ---
In responding to this query, please exercise your independent professional judgment. The [facility] Coding Staff and Clinical Documentation Specialists appreciate your assistance in clarifying documentation, maintaining compliance with coding guidelines, accurately documenting patients condition and capturing severity of illness. The fact that a question is asked does not imply that any particular answer is desired or expected. Communication forms are a method of clarifying documentation and are not made part of the Legal Health Record. Thank you in advance for your clarification. Last Revision, Jun 2016 Donta Brian [address] [place] [address] Documentation Clarification Form Date: 01/05/2017 11:26:00 AM Resubmitted 01/18/2017 08:42 am From: Michaelle Shipley CCS, CCDS Resubmitted 02/23/2017 08:03 am Admit Date: 12/30/2016 2:37:00 AM Patient Name: Diana Corey Visit Number: [id number] Discharge Date: Dr. Vernon Dao: 61 yo female, Previous admit with possible inset bite & rash left axilla area, had I&D (12/17) for a large axilla abscess under general anesthesia. Developed ileus or SBO this admission. Discharged with packing & wound VAC to [facility], [facility]. Also had acute renal failure, resolved. History/Risk Factors: GERD, Cholecystectomy. Clinical Indicators: Per 01/03 attending progress note: Patient threw up her breakfast, abdomen is distended, has not had a bowel movement for at least 3 or 4 days, some edema. Receiving antibiotics: po Levaquin & IV Zosyn. Abdominal XR: Dilated loops of bowel. Diagnosed with acute bowel obstruction versus ileus, likely the latter, probably from immobility. Treatment: NGT inserted. IV fluids cont'd. Surgery & ID following. In order to accurately reflect this patients severity of illness, please clarify if the post-operative diagnosis (Ileus or bowel obstruction) is: An expected post-procedural or post-surgical condition Integral to the procedure Inherent to the procedure An unexpected post-procedural or post-surgical condition, related to surgical care Other, please specify Unable to determine Please document in your progress notes and discharge summary in order to capture severity of illness and risk of mortality. Include clinical findings that support your diagnosis. FYI: Press F11 to launch patient chart MTDD
[2017-01-05 12:06] LABS: Glucose,Whole Blood 133 mg/dL (75-99)
--- NOTE | 2017-01-05 12:40 | P.PN ---
Subjective Principal diagnosis: A 67-year-old female patient, alf resident, presented to the hospital because of pain in her right neck area. The patient is currently being treated for shingles in her right neck and chest area. She is also found to have an abscess in her left axilla for which he underwent an incision and drainage and a wound VAC was applied. ID was also evaluating this patient and handling the antibiotic treatment. The wound VAC itself was uncomfortable. This was subsequently removed and appropriate packing was applied. No fever. No chills. No emesis. Cultures showing Ingrid albicans, Enterococcus faecalis and MSSA. Currently the patient is on IV Zosyn. The patient subsequently started having feeling of bloating and developed abdominal distention. A fasting amount of the abdomen was done and showed ileus/bowel obstruction PA general surgery consultation was obtained. NG tube was placed and there is significant amount of output more than 600 mL since the NG tube was inserted. Currently the patient is resting comfortably in bed. No signs of any respiratory distress. She is on 2 L of oxygen nasal cannula. No cough or sputum production. No clear-cut history of aspiration. The patient apparently was throwing up earlier. The patient is denying have abdominal pain. Abdomen seems to be less distended. There is extensive lower extremity edema. The patient also has issues with proximity fibrillation and her current rhythm is sinus. She was started on anti-coagulation with cardiology. She is known to have coronary artery disease and she is also diabetic, insulin-dependent. She suffers from schizophrenic disorder. CODE STATUS is full. Patient was reevaluated today on 01/04/2017, basically she is about the same, remains on IV antibiotics, her wound VAC has been removed, patient is not in any form of distress. CBC showed WBC count of 5.4 hemoglobin is 7.4 BUN is 34 creatinine is 1.38. Blood sugar seems to be running low earlier today. That is being addressed by the admitting physician. Patient seen and evaluated examined today on , she has a NG tube she is mildly short of breath but denies any chest pain labs culture results had been reviewed and comfortably otherwise Objective - Vital Signs Vital signs: Vital Signs Temp 97.1 F L 01/05/17 06:21 Pulse 84 01/05/17 09:43 Resp 16 01/05/17 09:43 BP 109/58 01/05/17 09:43 Pulse Ox 97 01/05/17 09:43 Intake & Output 01/04/17 01/05/17 01/05/17 18:59 06:59 18:59 Intake Total 1000 Balance 1000 Weight 99.337 kg Intake: IV 1000 Dextrose 5%-0.9% NaCl 1, 1000 000 ml @ 100 mls/hr IV . Q10H [facility] Rx#:[id number] Other: Voiding Method Incontinent Diaper Diaper Incontinent Incontinent # Voids 4 1 GENERAL: The patient is alert and oriented x3, not in any acute distress. Well developed, well nourished. HEENT: Pupils are round and equally reacting to light. EOMI. No scleral icterus. No conjunctival pallor. Normocephalic, atraumatic. No pharyngeal erythema. No thyromegaly. CARDIOVASCULAR: S1 and S2 present. No murmurs, rubs, or gallops. PULMONARY: Chest is clear to auscultation, no wheezing or crackles. ABDOMEN: Mildly distended abdomen sluggish bowel sounds patient has an NG tube in place. MUSCULOSKELETAL: No joint swelling or deformity. EXTREMITIES: No cyanosis, clubbing, or pedal edema. Does have left axillary abscess post packing and patient has a wound VAC in place. NEUROLOGICAL: Gross neurological examination did not reveal any focal deficits. SKIN: No rashes. - Labs CBC & Chem 7: 01/05/17 06:36 01/05/17 06:36 Labs: Abnormal Lab Results - Last 24 Hours (Table) 01/05/17 01/05/17 01/05/17 Range/Units 06:36 06:36 08:10 RBC 2.61 L (3.80-5.40) m/uL Hgb 8.6 L (11.4-16.0) gm/dL Hct 25.3 L (34.0-46.0) % Chloride 113 H (98-107) mmol/L Carbon Dioxide 19 L (22-30) mmol/L BUN 33 H (7-17) mg/dL Creatinine 1.13 H (0.52-1.04) mg/dL Glucose 108 H (74-99) mg/dL POC Glucose (mg/dL) 128 H (75-99) mg/dL Calcium 8.3 L (8.4-10.2) mg/dL 01/05/17 Range/Units 12:02 RBC (3.80-5.40) m/uL Hgb (11.4-16.0) gm/dL Hct (34.0-46.0) % Chloride (98-107) mmol/L Carbon Dioxide (22-30) mmol/L BUN (7-17) mg/dL Creatinine (0.52-1.04) mg/dL Glucose (74-99) mg/dL POC Glucose (mg/dL) 133 H (75-99) mg/dL Calcium (8.4-10.2) mg/dL Microbiology - Last 24 Hours (Table) 12/30/16 03:15 Gram Stain - Final Axilla - Left Wound Culture - Final Ingrid albicans Enterococcus faecalis Staphylococcus aureus 12/30/16 01:20 Blood Culture - Final Blood No Growth after 144 hours 01/01/17 12:58 Gram Stain - Final Sputum Sputum Culture - Final Assessment and Plan Plan: 1 left axillary abscess, status post incision and drainage with surrounding cellulitis. Cultures are showing Enterococcus faecalis and MSSA. The patient currently on IV Zosyn. The wound is packed. ID and general surgery are both on the case. Wound VAC was removed. 2 small bowel obstruction/ileus, status post NG tube insertion, currently nothing by mouth. Abdominal pain improved, anticipate discontinue NG tube tomorrow. 3 obstructive sleep apnea and paroxysmal atrial fibrillation currently in sinus rhythm: Patient is on anticoagulation with Apaxiban., Patient to be evaluated for a sleep study on outpatient setting, component of obesity hypoventilation, continue to follow clinical course closely 4 coronary artery disease with 50% lesion in the LAD 5 chronic lower extremities edema 6 schizophrenic disorder 7 hypertension 8 hyperlipidemia 9 generalized anxiety disorder 10 peripheral neuropathy 11 Type 2 diabetes mellitus 12 acute renal failure and tachycardia: Secondary to intravascular depletion from significant NG tube drainage which is expected to improve with IV fluids. 13 bronchial asthma not in acute exacerbation 13 shingles affecting the right chest area, improved currently on Valtrex. For above-mentioned chronic medical problems patient will be continued on present medications. will monitor and titrate as needed. Time with Patient: Greater than 30
[2017-01-05] MEDS: Acetaminophen-Codeine 300-30mg TAB PO PRN (16:01)
[2017-01-05] MEDS: FERROUS SULFATE 325 MG TAB PO SCH (16:02)
--- NOTE | 2017-01-05 17:48 | P.PN ---
Progress Note - Text The patient states she feels better. On exam her vital signs appear stable. Her abdomen soft. There is less distention. Patient is a gastric tube can be removed today she will start on clear liquid diet.
[2017-01-05] MEDS: QUEtiapine 400 MG TAB PO SCH (20:29)
[2017-01-05] MEDS: ATORVASTATIN 10 MG TAB PO SCH (20:29)
--- NOTE | 2017-01-05 23:35 | P.PN ---
Subjective Principal diagnosis: Left axillary abscess 67-year-old female came in for left axillary abscess. Abscess was drained during her previous hospitalization which appears to be infected again. And patient has a wound VAC in place. Inpatient the wound cultures are positive mild the bacterial including enterococcus, MSSA and patient is presently on Zosyn to cover anaerobes as well. I discontinue levofloxacin. Patient and that ended up having ileus versus partial small bowel obstruction for which patient will undergo abdominal CAT scan patient has an NG tube. And the patient went into atrial fibrillation couple days ago patient is presently rate controlled is on a small dose of her lip was and patient has acute renal failure secondary to intravascular volume depletion secondary to bowel obstruction and significant NG tube drainage yesterday. Patient did has minimal drainage today because of which I'll continue her on 100 mL of normal saline and the recheck the Trileptal lites and kidney function tomorrow. Patient does have some peripheral edema because of which I'm not hydrating headache aggressively. patient denied any chest pain palpitations, dysuria, denied any abdominal pain. On 01/04/2017 Patient denies any new complaints left axillary pain improved only work was removed. No fever no chills. Her CBCs and 40s this morning. Patient is currently nothing by mouth and is on NG tube. Abdominal pain improved computed tomography scan of the abdomen did not show any obstruction. Pulmonary and general surgery and ID is following this patient. 01/05/2017. Patient did improve symptomatically. No nausea. Abdominal pain improved. Dialysis is planning for discontinuation of NG tube. Patient continues to be afebrile no acute or new tissues. Objective - Vital Signs Vital signs: Vital Signs Temp 97.1 F L 01/05/17 20:00 Pulse 70 01/05/17 20:00 Resp 16 01/05/17 20:00 BP 97/58 01/05/17 20:00 Pulse Ox 100 01/05/17 20:00 Intake & Output 01/05/17 01/05/17 01/06/17 06:59 18:59 06:59 Intake Total 1000 Balance 1000 Intake: IV 1000 Dextrose 5%-0.9% NaCl 1, 1000 000 ml @ 100 mls/hr IV . Q10H [facility] Rx#:[id number] Other: Voiding Method Diaper Diaper Incontinent Incontinent # Voids 1 - Exam GENERAL: The patient is alert and oriented x3, not in any acute distress. Well developed, well nourished. HEENT: Pupils are round and equally reacting to light. EOMI. No scleral icterus. No conjunctival pallor. Normocephalic, atraumatic. No pharyngeal erythema. No thyromegaly. CARDIOVASCULAR: S1 and S2 present. No murmurs, rubs, or gallops. PULMONARY: Chest is clear to auscultation, no wheezing or crackles. ABDOMEN: Mildly distended abdomen sluggish bowel sounds patient has an NG tube in place. MUSCULOSKELETAL: No joint swelling or deformity. EXTREMITIES: No cyanosis, clubbing, or pedal edema. Does have left axillary abscess post packing and patient has a wound VAC in place. NEUROLOGICAL: Gross neurological examination did not reveal any focal deficits. SKIN: No rashes. - Labs CBC & Chem 7: 01/05/17 06:36 01/05/17 06:36 Labs: Abnormal Lab Results - Last 24 Hours (Table) 01/05/17 01/05/17 01/05/17 Range/Units 06:36 06:36 08:10 RBC 2.61 L (3.80-5.40) m/uL Hgb 8.6 L (11.4-16.0) gm/dL Hct 25.3 L (34.0-46.0) % Chloride 113 H (98-107) mmol/L Carbon Dioxide 19 L (22-30) mmol/L BUN 33 H (7-17) mg/dL Creatinine 1.13 H (0.52-1.04) mg/dL Glucose 108 H (74-99) mg/dL POC Glucose (mg/dL) 128 H (75-99) mg/dL Calcium 8.3 L (8.4-10.2) mg/dL 01/05/17 Range/Units 12:02 RBC (3.80-5.40) m/uL Hgb (11.4-16.0) gm/dL Hct (34.0-46.0) % Chloride (98-107) mmol/L Carbon Dioxide (22-30) mmol/L BUN (7-17) mg/dL Creatinine (0.52-1.04) mg/dL Glucose (74-99) mg/dL POC Glucose (mg/dL) 133 H (75-99) mg/dL Calcium (8.4-10.2) mg/dL Microbiology - Last 24 Hours (Table) 12/30/16 03:15 Gram Stain - Final Axilla - Left Wound Culture - Final Ingrid albicans Enterococcus faecalis Staphylococcus aureus 12/30/16 01:20 Blood Culture - Final Blood No Growth after 144 hours Assessment and Plan Plan: 1 left axillary abscess, status post incision and drainage with surrounding cellulitis. Cultures are showing Enterococcus faecalis and MSSA. The patient currently on IV Zosyn. The wound is packed. ID and general surgery are both on the case. Wound VAC was removed. 2 small bowel obstruction/ileus, status post NG tube insertion, currently nothing by mouth. Abdominal pain improved, anticipate discontinue NG tube. 3 paroxysmal atrial fibrillation currently in sinus rhythm: Patient is on anticoagulation with Apaxiban. 4 coronary artery disease with 50% lesion in the LAD 5 chronic lower extremities edema 6 schizophrenic disorder 7 hypertension 8 hyperlipidemia 9 generalized anxiety disorder 10 peripheral neuropathy 11 Type 2 diabetes mellitus 12 acute renal failure and tachycardia: Secondary to intravascular depletion from significant NG tube drainage which is expected to improve with IV fluids. 13 bronchial asthma not in acute exacerbation 13 shingles affecting the right chest area, improved currently on Valtrex. For above-mentioned chronic medical problems patient will be continued on present medications. will monitor and titrate as needed.
[2017-01-06 00:10] LABS: Glucose,Whole Blood 117 mg/dL (75-99)
[2017-01-06 05:43] LABS: Glucose,Whole Blood 107 mg/dL (75-99)
[2017-01-06] MEDS: PANTOPRAZOLE 40 MG TABLET PO SCH (06:38)
[2017-01-06] MEDS: valACYclovir HCL 1,000 MG TABLET PO SCH ×3 (06:38→22:25)
[2017-01-06 06:59] LABS: CH 31.5; CHCM 32.4; HCT 26.5 % (34.0-46.0); HDW 2.83; HGB 8.5 gm/dL (11.4-16.0); Immature Gran Flag Marked; MCH 31.6 pg (25.0-35.0); MCHC 32.3 g/dL (31.0-37.0); MCV 97.8 fL (80.0-100.0); Mean Platelet Volume 7.3; RBC 2.71 m/uL (3.80-5.40); RDW 13.8 % (11.5-15.5); WBC 8.2 k/uL (3.8-10.6); WBC (Perox) 8.15
[2017-01-06] MEDS: BUDESONIDE 0.5 MG/2 ML NEBU INHALATION SCH ×2 (07:27→20:31)
[2017-01-06] MEDS: IPRATROPIUM-ALBUTEROL 3 ML NEB INHALATION SCH ×4 (07:27→20:31)
[2017-01-06 07:41] LABS: Add Differential Manual Differential
[2017-01-06 07:45] LABS: Manual Review Performed; Metamyelocytes % 3 %; Myelocytes % 1 %; Nucleated Red Blood Cells 0 /100 WBC (0-0); Total Cells Counted 200
[2017-01-06 07:46] LABS: Polychromasia Present; Toxic Granulation Present
[2017-01-06] MEDS: PIPERACILLIN-TAZOBACTAM 3.375 GM in DEXTROSE/WATER 1 50ML.BAG IVPB SCH ×2 (08:17→15:57)
[2017-01-06] MEDS: APIXABAN 2.5 MG TABLET PO SCH ×2 (08:18→22:24)
[2017-01-06] MEDS: CHOLECALCIFEROL 1,000 UNIT TAB PO SCH (08:18)
[2017-01-06] MEDS: ASPIRIN 81 MG PO SCH (08:18)
[2017-01-06] MEDS: CITALOPRAM HYDROBROMIDE 20 MG TAB PO SCH (08:19)
[2017-01-06] MEDS: POTASSIUM CHLORIDE ER 10 MEQ TAB.ER.PRT PO SCH (08:20)
[2017-01-06] MEDS: LORATADINE 10 MG TAB PO SCH (08:20)
[2017-01-06] MEDS: METOPROLOL TARTRATE 25 MG TAB PO SCH ×3 (08:20→22:24)
[2017-01-06] MEDS: DIGOXIN 125 MCG TAB PO SCH (08:20)
[2017-01-06] MEDS: SENNOSIDES 8.6 MG TAB PO SCH ×2 (08:21→15:52)
[2017-01-06] MEDS: VIT A,C & E-LUTEIN-MINERALS 1 EACH TAB PO SCH (08:21)
[2017-01-06] MEDS: GABAPENTIN 300 MG CAP PO SCH ×2 (08:21→15:52)
--- NOTE | 2017-01-06 11:18 | P.PN ---
Subjective Interval history this patient is seen and examined and evaluated today 2016 on the selective care unit. Patient is resting up in bed on 2 L of supplemental oxygen. She has intermittent shortness of breath with a cough and congestion. She did have her NG tube removed yesterday. She has been tolerating food and fluids this morning. Is any abdominal pain at this time. Wound culture has been completed and shows Ingrid albicans, enterococcus faecalis and staphylococcal aureus. Urine, sputum and blood cultures have been negative so far. She has been afebrile no further complaints. Objective - Vital Signs Vital signs: Vital Signs Temp 97.7 F 01/06/17 03:43 Pulse 88 01/06/17 07:41 Resp 16 01/06/17 03:43 BP 115/62 01/06/17 03:43 Pulse Ox 94 L 01/06/17 03:43 Intake & Output 01/05/17 01/06/17 01/06/17 18:59 06:59 18:59 Intake Total 1100 50 Balance 1100 50 Intake: IV 1100 Dextrose 5%-0.9% NaCl 1, 1100 000 ml @ 100 mls/hr IV . Q10H [facility] Rx#:[id number] Oral 50 Other: Voiding Method Diaper Diaper Incontinent Incontinent - Exam GENERAL EXAM: Alert, active, comfortable in no apparent distress. HEAD: Normocephalic. EYES: Normal reaction of pupils, equal size. NOSE: Clear with pink turbinates. THROAT: No erythema or exudates. NECK: No masses, no JVD. CHEST: No chest wall deformity. LUNGS: Equal air entry with no crackles, wheeze, rhonchi or dullness. Bases diminished CVS: S1 and S2 normal with no audible mumurs, regular rhythm. ABDOMEN: No hepatosplenomegaly, normal bowel sounds, no guarding or rigidity. EXTREMITIES: No edema noted, pedal pulses palpable. Agent does have a left axillary early dressing with packing clean dry and intact. SKIN: No rashes CENTRAL NERVOUS SYSTEM: No focal deficits, tone is normal in all 4 extremities. - Labs CBC & Chem 7: 01/06/17 06:45 01/06/17 08:11 Labs: Abnormal Lab Results - Last 24 Hours (Table) 01/05/17 01/06/17 01/06/17 Range/Units 12:02 00:08 05:34 RBC (3.80-5.40) m/uL Hgb (11.4-16.0) gm/dL Hct (34.0-46.0) % Metamyelocytes # (Man) (0) k/uL Myelocytes # (Manual) (0) k/uL Potassium (3.5-5.1) mmol/L POC Glucose (mg/dL) 133 H 117 H 107 H (75-99) mg/dL 01/06/17 01/06/17 Range/Units 06:45 08:11 RBC 2.71 L (3.80-5.40) m/uL Hgb 8.5 L (11.4-16.0) gm/dL Hct 26.5 L (34.0-46.0) % Metamyelocytes # (Man) 0.25 H (0) k/uL Myelocytes # (Manual) 0.08 H (0) k/uL Potassium 3.2 L (3.5-5.1) mmol/L POC Glucose (mg/dL) (75-99) mg/dL Microbiology - Last 24 Hours (Table) 12/30/16 03:15 Gram Stain - Final Axilla - Left Wound Culture - Final Ingrid albicans Enterococcus faecalis Staphylococcus aureus Assessment and Plan Plan: Assessment Left axillary abscess, status post I&D with surrounding cellulitis Small bowel obstruction/ileus Obstructive sleep apnea Paroxysmal atrial fibrillation, currently sinus rhythm Coronary artery disease Chronic lower extremity edema Schizophrenic disorder Hypertension Generalized anxiety disorder Peripheral neuropathy Diabetes mellitus type 2 Acute renal failure secondary to intravascular depletion Shingles affecting the right chest area, improved Plan Medications have been reviewed and will be continued as ordered. Appreciate consults and recommendations. Continue with pulmonary hygiene, coughing and deep breathing exercises, and supportive care. Supplemental oxygen to maintain oxygen saturations of 92% or better. Continue nebulizer treatments. GI and DVT prophylaxis. We will continue to monitor labs/results and adjust treatment as necessary. Further recommendations pending. I performed an examination of the patient and discussed their management with the nurse practitioner. I have reviewed the nurse practitioner's note and agree with the documented findings and plan of care.
[2017-01-06 11:46] LABS: Glucose,Whole Blood 153 mg/dL (75-99)
[2017-01-06] MEDS: MAGNESIUM SULFATE-D5W PMX 1 GM in DEXTROSE/WATER 1 100ML.BAG IVPB SCH ×2 (12:03→13:19)
[2017-01-06] MEDS: POTASSIUM CHLORIDE ER 20 MEQ TAB.ER PO SCH ×2 (12:04→13:20)
[2017-01-06] MEDS: ZINC OXIDE 20% OINT 28.4 GM TUBE TOPICAL SCH (12:07)
[2017-01-06] MEDS: Acetaminophen-Codeine 300-30mg TAB PO PRN (12:09)
[2017-01-06] MEDS: FERROUS SULFATE 325 MG TAB PO SCH (15:52)
[2017-01-06 18:07] LABS: Glucose,Whole Blood 160 mg/dL (75-99)
[2017-01-06] MEDS: ATORVASTATIN 10 MG TAB PO SCH (22:24)
[2017-01-06] MEDS: QUEtiapine 400 MG TAB PO SCH (22:24)
[2017-01-07 00:31] LABS: Glucose,Whole Blood 119 mg/dL (75-99)
[2017-01-07] MEDS: PIPERACILLIN-TAZOBACTAM 3.375 GM in DEXTROSE/WATER 1 50ML.BAG IVPB SCH ×4 (00:46→23:11)
--- NOTE | 2017-01-07 01:17 | P.PN ---
Subjective Principal diagnosis: Left axillary abscess 67-year-old female came in for left axillary abscess. Abscess was drained during her previous hospitalization which appears to be infected again. And patient has a wound VAC in place. Inpatient the wound cultures are positive mild the bacterial including enterococcus, MSSA and patient is presently on Zosyn to cover anaerobes as well. I discontinue levofloxacin. Patient and that ended up having ileus versus partial small bowel obstruction for which patient will undergo abdominal CAT scan patient has an NG tube. And the patient went into atrial fibrillation couple days ago patient is presently rate controlled is on a small dose of her lip was and patient has acute renal failure secondary to intravascular volume depletion secondary to bowel obstruction and significant NG tube drainage yesterday. Patient did has minimal drainage today because of which I'll continue her on 100 mL of normal saline and the recheck the Trileptal lites and kidney function tomorrow. Patient does have some peripheral edema because of which I'm not hydrating headache aggressively. patient denied any chest pain palpitations, dysuria, denied any abdominal pain. On 01/04/2017 Patient denies any new complaints left axillary pain improved only work was removed. No fever no chills. Her CBCs and 40s this morning. Patient is currently nothing by mouth and is on NG tube. Abdominal pain improved computed tomography scan of the abdomen did not show any obstruction. Pulmonary and general surgery and ID is following this patient. 01/05/2017. Patient did improve symptomatically. No nausea. Abdominal pain improved. Dialysis is planning for discontinuation of NG tube. Patient continues to be afebrile no acute or new tissues. 01/06/2017 Patient denied any complaints of abdominal pain today. Patient failed swallow solution and barium swallow was ordered. Currently patient is nothing by mouth. NG tube was removed. No fever no chills. Patient was on D5 normal saline. Objective - Vital Signs Vital signs: Vital Signs Temp 98.7 F 01/06/17 17:36 Pulse 90 01/06/17 20:44 Resp 22 01/06/17 17:36 BP 104/85 01/06/17 17:36 Pulse Ox 98 01/06/17 20:31 Intake & Output 01/06/17 01/06/17 01/07/17 06:59 18:59 06:59 Intake Total 1100 700 Balance 1100 700 Weight 99.337 kg Intake: IV 1100 300 Dextrose 5%-0.9% NaCl 1, 1100 300 000 ml @ 100 mls/hr IV . Q10H [facility] Rx#:[id number] Intake, IV Titration 350 Amount Magnesium Sulfate-D5w Pmx 300 1 gm In Dextrose/Water 1 100ml.bag @ 100 mls/hr IVPB Q1H [facility] Rx#: [id number] Piperacillin-Tazobactam 3 50 .375 gm In Dextrose/Water 1 50ml.bag @ 12.5 mls/hr IVPB Q8HR [facility] Rx#: [id number] Oral 50 Other: Voiding Method Diaper Diaper Incontinent Incontinent - Exam GENERAL: The patient is alert and oriented x3, not in any acute distress. Well developed, well nourished. HEENT: Pupils are round and equally reacting to light. EOMI. No scleral icterus. No conjunctival pallor. Normocephalic, atraumatic. No pharyngeal erythema. No thyromegaly. CARDIOVASCULAR: S1 and S2 present. No murmurs, rubs, or gallops. PULMONARY: Chest is clear to auscultation, no wheezing or crackles. ABDOMEN: Mildly distended abdomen sluggish bowel sounds. MUSCULOSKELETAL: No joint swelling or deformity. EXTREMITIES: No cyanosis, clubbing, or pedal edema. Does have left axillary abscess post packing and patient has a wound VAC in place. NEUROLOGICAL: Gross neurological examination did not reveal any focal deficits. SKIN: No rashes. - Labs CBC & Chem 7: 01/06/17 06:45 01/06/17 15:04 Labs: Abnormal Lab Results - Last 24 Hours (Table) 01/06/17 01/06/17 01/06/17 Range/Units 00:08 05:34 06:45 RBC 2.71 L (3.80-5.40) m/uL Hgb 8.5 L (11.4-16.0) gm/dL Hct 26.5 L (34.0-46.0) % Metamyelocytes # (Man) 0.25 H (0) k/uL Myelocytes # (Manual) 0.08 H (0) k/uL Potassium (3.5-5.1) mmol/L POC Glucose (mg/dL) 117 H 107 H (75-99) mg/dL 01/06/17 01/06/17 01/06/17 Range/Units 08:11 11:41 18:02 RBC (3.80-5.40) m/uL Hgb (11.4-16.0) gm/dL Hct (34.0-46.0) % Metamyelocytes # (Man) (0) k/uL Myelocytes # (Manual) (0) k/uL Potassium 3.2 L (3.5-5.1) mmol/L POC Glucose (mg/dL) 153 H 160 H (75-99) mg/dL Assessment and Plan Plan: 1 difficulty swallowing. Patient is currently nothing by mouth and barium swallow was ordered. 1 left axillary abscess, status post incision and drainage with surrounding cellulitis. Cultures are showing Enterococcus faecalis and MSSA. The patient currently on IV Zosyn. The wound is packed. ID and general surgery are both on the case. Wound VAC was removed. 2 small bowel obstruction/ileus, status post NG tube insertion. Abdominal pain improved, discontinued NG tube. 3 paroxysmal atrial fibrillation currently in sinus rhythm: Patient is on anticoagulation with Apaxiban. 4 coronary artery disease with 50% lesion in the LAD 5 chronic lower extremities edema 6 schizophrenic disorder 7 hypertension 8 hyperlipidemia 9 generalized anxiety disorder 10 peripheral neuropathy 11 Type 2 diabetes mellitus 12 acute renal failure and tachycardia: Secondary to intravascular depletion from significant NG tube drainage which is expected to improve with IV fluids. 13 bronchial asthma not in acute exacerbation 13 shingles affecting the right chest area, improved currently on Valtrex. For above-mentioned chronic medical problems patient will be continued on present medications. will monitor and titrate as needed.
[2017-01-07] MEDS: ZINC OXIDE 20% OINT 28.4 GM TUBE TOPICAL SCH ×2 (02:18→13:17)
[2017-01-07 06:02] LABS: Glucose,Whole Blood 104 mg/dL (75-99)
[2017-01-07] MEDS: BUDESONIDE 0.5 MG/2 ML NEBU INHALATION SCH ×2 (07:26→19:47)
[2017-01-07] MEDS: IPRATROPIUM-ALBUTEROL 3 ML NEB INHALATION SCH ×4 (07:26→19:47)
[2017-01-07] MEDS: valACYclovir HCL 1,000 MG TABLET PO SCH ×3 (07:36→21:04)
[2017-01-07 08:23] LABS: CH 31.1; CHCM 31.8; HCT 24.4 % (34.0-46.0); HDW 2.86; HGB 8.1 gm/dL (11.4-16.0); Hypochromasia Slight; Immature Gran Flag Marked; MCH 32.8 pg (25.0-35.0); MCHC 33.4 g/dL (31.0-37.0); MCV 98.3 fL (80.0-100.0); Mean Platelet Volume 7.1; RBC 2.48 m/uL (3.80-5.40); RDW 14.2 % (11.5-15.5); WBC 10.1 k/uL (3.8-10.6); WBC (Perox) 9.65
[2017-01-07] MEDS: PANTOPRAZOLE 40 MG/10 ML VIAL IVP SCH (08:59)
[2017-01-07 09:53] LABS: Anion Gap 5 mmol/L; Blood Urea Nitrogen 30 mg/dL (7-17); Calcium 8.2 mg/dL (8.4-10.2); Carbon Dioxide 21 mmol/L (22-30); Chloride 111 mmol/L (98-107); Glucose 90 mg/dL (74-99); Magnesium 1.9 mg/dL (1.6-2.3); Non-African American GFR(MDRD) >60 (>60 ml/min/1.73 sqM); Sodium 137 mmol/L (137-145)
[2017-01-07 10:15] LABS: Potassium 4.5 mmol/L (3.5-5.1)
--- NOTE | 2017-01-07 10:15 | FL ---
EXAMINATION TYPE: MODIFIED SWALLOW / DEGLUTITION STUDY DATE OF EXAM: 01/06/2017 CLINICAL HISTORY: Dysphagia and cough TECHNIQUE: Deglutition study is performed utilizing thin liquid barium, honey and nectar thick liqui d barium, barium thick applesauce, and barium coated cracker. COMPARISON: None. FINDINGS: The oral and pharyngeal phases show satisfactory initiation and propagation with all modali ties tested. Normal mastication is seen with solid modalities tested. There is no evidence of penet ration or aspiration with any modality tested. No significant pharyngeal residue was appreciated. IMPRESSION: Normal deglutition study. Please refer to speech therapist notes for further details if necessary.
[2017-01-07 10:47] LABS: Add Differential Manual Differential
[2017-01-07 10:54] LABS: Band Neutrophils % 1 %; Nucleated Red Blood Cells 0 /100 WBC (0-0); Total Cells Counted 100
[2017-01-07] MEDS: VIT A,C & E-LUTEIN-MINERALS 1 EACH TAB PO SCH (11:12)
[2017-01-07] MEDS: SENNOSIDES 8.6 MG TAB PO SCH ×2 (11:13→16:19)
[2017-01-07] MEDS: LORATADINE 10 MG TAB PO SCH (11:13)
[2017-01-07] MEDS: ASPIRIN 81 MG PO SCH (11:13)
[2017-01-07] MEDS: METOPROLOL TARTRATE 25 MG TAB PO SCH ×3 (11:13→21:04)
[2017-01-07] MEDS: APIXABAN 2.5 MG TABLET PO SCH ×2 (11:13→21:03)
[2017-01-07] MEDS: CHOLECALCIFEROL 1,000 UNIT TAB PO SCH (11:13)
[2017-01-07] MEDS: DIGOXIN 125 MCG TAB PO SCH (11:13)
[2017-01-07] MEDS: GABAPENTIN 300 MG CAP PO SCH ×2 (11:13→16:19)
[2017-01-07] MEDS: POTASSIUM CHLORIDE ER 10 MEQ TAB.ER.PRT PO SCH (11:13)
[2017-01-07] MEDS: CITALOPRAM HYDROBROMIDE 20 MG TAB PO SCH (11:13)
[2017-01-07 12:40] LABS: Glucose,Whole Blood 109 mg/dL (75-99)
[2017-01-07] MEDS: CYANOCOBALAMIN 500 MCG TAB PO SCH (13:17)
--- NOTE | 2017-01-07 13:28 | P.PN ---
Subjective Interval history: 01/06/17- this patient is seen and examined and evaluated today 01/06/2017 on the selective care unit. Patient is resting up in bed on 2 L of supplemental oxygen. She has intermittent shortness of breath with a cough and congestion. She did have her NG tube removed yesterday. She has been tolerating food and fluids this morning. Is any abdominal pain at this time. Wound culture has been completed and shows Ingrid albicans, enterococcus faecalis and staphylococcal aureus. Urine, sputum and blood cultures have been negative so far. She has been afebrile no further complaints. 01/07/17- patient underwent a barium swallow study this morning those results are not readily available at this time. Apparently the patient did fail her swallow evaluation at bedside yesterday. She was made nothing by mouth after failing the evening of impending barium swallow study. Currently the patient's resting up in bed on 3 LPM, of supplemental oxygen. Continues to have shortness of breath with activity or exertion. Continues with cough and congestion however has not brought up any sputum. Objective - Vital Signs Vital signs: Vital Signs Temp 97.2 F L 01/07/17 07:00 Pulse 77 01/07/17 08:00 Resp 18 01/07/17 11:00 BP 112/67 01/07/17 07:00 Pulse Ox 100 01/07/17 07:00 Intake & Output 01/06/17 01/07/17 01/07/17 18:59 06:59 18:59 Intake Total 700 Balance 700 Weight 99.337 kg 99.337 kg Intake: IV 300 Dextrose 5%-0.9% NaCl 1, 300 000 ml @ 100 mls/hr IV . Q10H [facility] Rx#:[id number] Intake, IV Titration 350 Amount Magnesium Sulfate-D5w Pmx 300 1 gm In Dextrose/Water 1 100ml.bag @ 100 mls/hr IVPB Q1H [facility] Rx#: [id number] Piperacillin-Tazobactam 3 50 .375 gm In Dextrose/Water 1 50ml.bag @ 12.5 mls/hr IVPB Q8HR [facility] Rx#: [id number] Oral 50 Other: Voiding Method Diaper Diaper Diaper Incontinent Incontinent Incontinent # Voids 1 - Exam GENERAL EXAM: Alert, active, comfortable in no apparent distress. HEAD: Normocephalic. EYES: Normal reaction of pupils, equal size. NOSE: Clear with pink turbinates. THROAT: No erythema or exudates. NECK: No masses, no JVD. CHEST: No chest wall deformity. LUNGS: Equal air entry slightly coarse with no crackles, wheeze, rhonchi or dullness. Bases diminished CVS: S1 and S2 normal with no audible mumurs, regular rhythm. ABDOMEN: No hepatosplenomegaly, normal bowel sounds, no guarding or rigidity. EXTREMITIES: No edema noted, pedal pulses palpable. Agent does have a left axillary early dressing with packing clean dry and intact. SKIN: No rashes CENTRAL NERVOUS SYSTEM: No focal deficits, tone is normal in all 4 extremities. - Labs CBC & Chem 7: 01/07/17 08:12 01/07/17 08:12 Labs: Abnormal Lab Results - Last 24 Hours (Table) 01/06/17 01/07/17 01/07/17 Range/Units 18:02 00:20 05:57 RBC (3.80-5.40) m/uL Hgb (11.4-16.0) gm/dL Hct (34.0-46.0) % Lymphocytes # (Manual) (1.0-4.8) k/uL Chloride (98-107) mmol/L Carbon Dioxide (22-30) mmol/L BUN (7-17) mg/dL POC Glucose (mg/dL) 160 H 119 H 104 H (75-99) mg/dL Calcium (8.4-10.2) mg/dL 01/07/17 01/07/17 01/07/17 Range/Units 08:12 08:12 12:35 RBC 2.48 L (3.80-5.40) m/uL Hgb 8.1 L (11.4-16.0) gm/dL Hct 24.4 L (34.0-46.0) % Lymphocytes # (Manual) 5.35 H (1.0-4.8) k/uL Chloride 111 H (98-107) mmol/L Carbon Dioxide 21 L (22-30) mmol/L BUN 30 H (7-17) mg/dL POC Glucose (mg/dL) 109 H (75-99) mg/dL Calcium 8.2 L (8.4-10.2) mg/dL Assessment and Plan Plan: Assessment Left axillary abscess, status post I&D with surrounding cellulitis Small bowel obstruction/ileus Obstructive sleep apnea Paroxysmal atrial fibrillation, currently sinus rhythm Coronary artery disease Chronic lower extremity edema Schizophrenic disorder Hypertension Generalized anxiety disorder Peripheral neuropathy Diabetes mellitus type 2 Acute renal failure secondary to intravascular depletion Shingles affecting the right chest area, improved Plan Medications have been reviewed and will be continued as ordered. Await barium swallow study results. Appreciate consults and recommendations. Continue with pulmonary hygiene, coughing and deep breathing exercises, and supportive care. Supplemental oxygen to maintain oxygen saturations of 92% or better. Continue nebulizer treatments. GI and DVT prophylaxis. We will continue to monitor labs/ results and adjust treatment as necessary. Further recommendations pending. I performed an examination of the patient and discussed their management with the nurse practitioner. I have reviewed the nurse practitioner's note and agree with the documented findings and plan of care.
[2017-01-07] MEDS: FERROUS SULFATE 325 MG TAB PO SCH (16:19)
[2017-01-07 17:06] LABS: Glucose,Whole Blood 90 mg/dL (75-99)
[2017-01-07] MEDS: QUEtiapine 400 MG TAB PO SCH (21:04)
[2017-01-07] MEDS: ATORVASTATIN 10 MG TAB PO SCH (21:04)
--- NOTE | 2017-01-07 22:56 | P.PN ---
Subjective Principal diagnosis: Pain to right neck 61-year-old female presents to the emergency center from the [facility] care facility where she has been receiving care for her significant abscess to her left axillary area status post incision and drainage. Apparently she started to have change in the drainage despite the wound VAC. She is having some increasing discomfort. She was becoming weak and tired. She then developed a significant rash that started at the base of the neck to the right side. It was a blistering rash that was extremely painful. She believes she had a low-grade fever. Because of her acute changes status she was sent to the emergency center and was admitted. With evidence of the significant rash and the ongoing infection to the left axillary area the infectious diseases consultation was requested. At this time she seems a bit more awake and alert than admission. She is able to relate to some pain at the left axillary area but it is not severe at this time. The wound VAC was minimally uncomfortable. She relates that her great amount of pain is to the right neck where she has the blistering rash. Does not believe she's had a high-grade fever or chills. Feels quite poorly overall. She's had some nausea without emesis. She denying significant abdominal pain at this time. She is not having significant cough or sputum production no hemoptysis. Feels better today. Ate better today Drainage is improved. Less pain to the left axilla. Otherwise been having shortness of breath. Objective - Vital Signs Vital signs: Vital Signs Temp 97.8 F 01/07/17 15:00 Pulse 77 01/07/17 15:56 Resp 18 01/07/17 18:29 BP 110/55 01/07/17 15:00 Pulse Ox 95 01/07/17 15:00 Intake & Output 01/07/17 01/07/17 01/08/17 06:59 18:59 06:59 Intake Total 250 Balance 250 Weight 99.337 kg Intake: IV 250 D5 @ 50ml/hr 200 Piperacillin-Tazobactam 3 50 .375 gm In Dextrose/Water 1 50ml.bag @ 12.5 mls/hr IVPB Q8HR [facility] Rx#: [id number] Other: Voiding Method Diaper Diaper Incontinent Incontinent # Voids 1 - Exam 61-year-old woman who appears older than her stated age. More interactive than during her last hospital stay. But his still compromised. HEENT: Anicteric conjunctiva are pink and moist nasal mucosa grossly intact without significant lesions, there is no thrush. Oral mucosa is dry Neck: The neck is supple without significant lymphadenopathy or thyromegaly. Lungs: Good bilateral air entry without significant crackles or wheezing. There is no significant bronchial sounds. There is no egophony or dullness. Heart: Regular rate and rhythm with an audible S1-S2, no S3 no S4. There is no significant murmur click or rub, PMI was nondisplaced. Abdomen: Positive bowel sounds soft and nontender without palpable masses or organomegaly. There was no guarding or rebound. Extremities: The upper extremities have excellent pulses they are symmetric, no significant petechiae or telangiectasia. No splinter hemorrhages were noted. The left axillary area is evidence of site of the incision and drainage. The cavity is noted. Please see the nursing photography for its site measurement. There is evidence of some purulence at the base. Cultures have been obtained. . Area was cleansed with saline and silver rope dressing is applied. It is slightly tender but not severely so. Skin: Evidence of the dermatomal rash onto the right neck onto the anterior chest wall. It does not penetrate over the midline of the shoulder. The vesicles are drying. It has not extended. Much less tender. Neuro: Arousable did interaction to some simple questions. More interactive - Labs CBC & Chem 7: 01/07/17 08:12 01/07/17 08:12 Labs: Abnormal Lab Results - Last 24 Hours (Table) 01/07/17 01/07/17 01/07/17 Range/Units 00:20 05:57 08:12 RBC (3.80-5.40) m/uL Hgb (11.4-16.0) gm/dL Hct (34.0-46.0) % Lymphocytes # (Manual) (1.0-4.8) k/uL Chloride 111 H (98-107) mmol/L Carbon Dioxide 21 L (22-30) mmol/L BUN 30 H (7-17) mg/dL POC Glucose (mg/dL) 119 H 104 H (75-99) mg/dL Calcium 8.2 L (8.4-10.2) mg/dL 01/07/17 01/07/17 Range/Units 08:12 12:35 RBC 2.48 L (3.80-5.40) m/uL Hgb 8.1 L (11.4-16.0) gm/dL Hct 24.4 L (34.0-46.0) % Lymphocytes # (Manual) 5.35 H (1.0-4.8) k/uL Chloride (98-107) mmol/L Carbon Dioxide (22-30) mmol/L BUN (7-17) mg/dL POC Glucose (mg/dL) 109 H (75-99) mg/dL Calcium (8.4-10.2) mg/dL Laboratory Results WBC 10.1 k/uL (3.8-10.6) 01/07/17 08:12 RBC 2.48 m/uL (3.80-5.40) L 01/07/17 08:12 Hgb 8.1 gm/dL (11.4-16.0) L 01/07/17 08:12 Hct 24.4 % (34.0-46.0) L 01/07/17 08:12 MCV 98.3 fL (80.0-100.0) 01/07/17 08:12 MCH 32.8 pg (25.0-35.0) 01/07/17 08:12 MCHC 33.4 g/dL (31.0-37.0) 01/07/17 08:12 RDW 14.2 % (11.5-15.5) 01/07/17 08:12 Plt Count 303 k/uL (150-450) 01/07/17 08:12 Neutrophils % 77 % 01/04/17 06:12 Neutrophils % (Manual) 42 % 01/07/17 08:12 Band Neutrophils % 1 % 01/07/17 08:12 Lymphocytes % 17 % 01/04/17 06:12 Lymphocytes % (Manual) 53 % 01/07/17 08:12 Monocytes % 3 % 01/04/17 06:12 Monocytes % (Manual) 4 % 01/07/17 08:12 Eosinophils % 1 % 01/04/17 06:12 Eosinophils % (Manual) 1 % 01/06/17 06:45 Basophils % 0 % 01/04/17 06:12 Metamyelocytes % 3 % 01/06/17 06:45 Myelocytes % 1 % 01/06/17 06:45 Neutrophils # 4.2 k/uL (1.3-7.7) 01/04/17 06:12 Neutrophils # (Manual) 4.30 k/uL (1.3-7.7) 01/07/17 08:12 Lymphocytes # 0.9 k/uL (1.0-4.8) L 01/04/17 06:12 Lymphocytes # (Manual) 5.35 k/uL (1.0-4.8) H 01/07/17 08:12 Monocytes # 0.2 k/uL (0-1.0) 01/04/17 06:12 Monocytes # (Manual) 0.40 k/uL (0-1.0) 01/07/17 08:12 Eosinophils # 0.0 k/uL (0-0.7) 01/04/17 06:12 Eosinophils # (Manual) 0.08 k/uL (0-0.7) 01/06/17 06:45 Basophils # 0.0 k/uL (0-0.2) 01/04/17 06:12 Metamyelocytes # (Man) 0.25 k/uL (0) H 01/06/17 06:45 Myelocytes # (Manual) 0.08 k/uL (0) H 01/06/17 06:45 Nucleated RBCs 0 /100 WBC (0-0) 01/07/17 08:12 Manual Slide Review Performed 01/06/17 06:45 Toxic Granulation Present 01/06/17 06:45 Polychromasia Present 01/06/17 06:45 Hypochromasia Slight 01/07/17 08:12 Poikilocytosis (manual Present 01/07/17 08:12 Anisocytosis (manual) Present 01/07/17 08:12 Macrocytosis Slight 01/04/17 06:12 PT 14.8 sec (9.0-12.0) H 12/31/16 03:49 INR 1.5 (<1.2) H 12/31/16 03:49 APTT 29.1 sec (22.0-30.0) 01/03/17 05:50 Sodium 137 mmol/L (137-145) 01/07/17 08:12 Potassium 4.5 mmol/L (3.5-5.1) 01/07/17 08:12 Chloride 111 mmol/L (98-107) H 01/07/17 08:12 Carbon Dioxide 21 mmol/L (22-30) L 01/07/17 08:12 Anion Gap 5 mmol/L 01/07/17 08:12 BUN 30 mg/dL (7-17) H 01/07/17 08:12 Creatinine 0.94 mg/dL (0.52-1.04) 01/07/17 08:12 Est GFR (MDRD) Af Amer >60 (>60 ml/min/1.73 sqM) 01/07/17 08:12 Est GFR (MDRD) Non-Af >60 (>60 ml/min/1.73 sqM) 01/07/17 08:12 Glucose 90 mg/dL (74-99) 01/07/17 08:12 POC Glucose (mg/dL) 90 mg/dL (75-99) 01/07/17 17:05 POC Glu [facility]adoop Admin ID Rodriguez Erica 01/07/17 17:05 Plasma Lactic Acid Britton 1.4 mmol/L (0.7-2.0) 12/31/16 02:50 Calcium 8.2 mg/dL (8.4-10.2) L 01/07/17 08:12 Phosphorus 2.8 mg/dL (2.5-4.5) 12/30/16 01:20 Magnesium 1.9 mg/dL (1.6-2.3) 01/07/17 08:12 Total Bilirubin 0.6 mg/dL (0.2-1.3) 12/30/16 01:20 AST 25 U/L (14-36) 12/30/16 01:20 ALT 24 U/L (9-52) 12/30/16 01:20 Alkaline Phosphatase 116 U/L (38-126) 12/30/16 01:20 Total Creatine Kinase <20 U/L (30-135) L 12/30/16 01:20 CK-MB (CK-2) 0.4 ng/mL (0.0-2.4) 12/30/16 01:20 CK-MB (CK-2) Rel Index 0.0 12/30/16 01:20 Troponin I <0.012 ng/mL (0.000-0.034) 12/30/16 01:20 Total Protein 5.8 g/dL (6.3-8.2) L 12/30/16 01:20 Albumin 2.8 g/dL (3.5-5.0) L 12/30/16 01:20 Urine Color Yellow 12/30/16 08:30 Urine Appearance Cloudy (Clear) H 12/30/16 08:30 Urine pH 6.0 (5.0-8.0) 12/30/16 08:30 Ur Specific [place] 1.019 (1.001-1.035) 12/30/16 08:30 Urine Protein 1+ (Negative) H 12/30/16 08:30 Urine Glucose (UA) Negative (Negative) 12/30/16 08:30 Urine Ketones Trace (Negative) H 12/30/16 08:30 Urine Blood Negative (Negative) 12/30/16 08:30 Urine Nitrite Negative (Negative) 12/30/16 08:30 Urine Bilirubin Negative (Negative) 12/30/16 08:30 Urine Urobilinogen <2.0 mg/dL (<2.0) 12/30/16 08:30 Ur Leukocyte Esterase Moderate (Negative) H 12/30/16 08:30 Urine RBC 5 /hpf (0-5) 12/30/16 08:30 Urine WBC 19 /hpf (0-5) H 12/30/16 08:30 Ur Squamous Epith Cells 9 /hpf (0-4) H 12/30/16 08:30 Calcium Oxalate Crystal Occasional /hpf (None) H 12/30/16 08:30 Urine Mucus Rare /hpf (None) H 12/30/16 08:30 Urine Yeast (Budding) Many /hpf (None) H 12/30/16 08:30 Microbiology 12/30/16 03:15 Axilla - Left Gram Stain - Final 12/30/16 03:15 Axilla - Left Wound Culture - Final Ingrid albicans Enterococcus faecalis Staphylococcus aureus 12/30/16 01:20 Blood Blood Culture - Final No Growth after 144 hours 01/01/17 12:58 Sputum Gram Stain - Final 01/01/17 12:58 Sputum Sputum Culture - Final 12/30/16 08:30 Urine,Voided Urine Culture - Final Assessment and Plan (1) Varicella zoster Status: Acute (2) Schizo affective schizophrenia Status: Acute (3) Abscess of axilla, left Narrative/Plan: 61-year-old female presents from the extended care facility because of onset of severe rash to her right neck as well as low-grade fever and worsening overall status. Patient is evidence of the varicella-zoster of the right neck and upper chest. Classic blistering and tenderness is noted. She had been started on Valtrex will complete soon. Steroids were not started and will not be initiated at this time. The patient has evidence of the extensive axillary abscesses status post incision and drainage. It is of decreased size with the local care of that she' s been receiving especially with the wound VAC. However now appears to have a secondary infection. Wound VAC is put on hold. We'll place silver dressing into the base. Further cultures obtained Antibiotic therapy with Zosyn will be utilized with covers for the MSSA, strep in the anaerobic gram-negative bacilli that were isolated. Enterococcus also isolated for which the piperacillin will give adequate coverage . She does have moderate protein calorie malnutrition and will need further improved nutrition to help her healing. It appears that her psychiatric status is stable. Status: Acute (4) MSSA (methicillin susceptible Staphylococcus aureus) infection Status: Acute
[2017-01-08 00:30] LABS: Glucose,Whole Blood 102 mg/dL (75-99)
[2017-01-08] MEDS: ZINC OXIDE 20% OINT 28.4 GM TUBE TOPICAL SCH ×3 (00:41→23:46)
[2017-01-08 06:08] LABS: Glucose,Whole Blood 91 mg/dL (75-99)
[2017-01-08] MEDS: valACYclovir HCL 1,000 MG TABLET PO SCH ×3 (06:11→21:30)
[2017-01-08] MEDS: BUDESONIDE 0.5 MG/2 ML NEBU INHALATION SCH ×2 (07:11→20:09)
[2017-01-08] MEDS: IPRATROPIUM-ALBUTEROL 3 ML NEB INHALATION SCH ×4 (07:11→20:09)
[2017-01-08] MEDS: GABAPENTIN 300 MG CAP PO SCH ×2 (08:27→16:36)
[2017-01-08] MEDS: LORATADINE 10 MG TAB PO SCH (08:27)
[2017-01-08] MEDS: APIXABAN 2.5 MG TABLET PO SCH ×2 (08:27→21:30)
[2017-01-08] MEDS: ASPIRIN 81 MG PO SCH (08:27)
[2017-01-08] MEDS: SENNOSIDES 8.6 MG TAB PO SCH ×2 (08:27→16:36)
[2017-01-08] MEDS: DIGOXIN 125 MCG TAB PO SCH (08:27)
[2017-01-08] MEDS: CHOLECALCIFEROL 1,000 UNIT TAB PO SCH (08:27)
[2017-01-08] MEDS: METOPROLOL TARTRATE 25 MG TAB PO SCH ×3 (08:27→21:30)
[2017-01-08] MEDS: PIPERACILLIN-TAZOBACTAM 3.375 GM in DEXTROSE/WATER 1 50ML.BAG IVPB SCH ×3 (08:27→23:46)
[2017-01-08] MEDS: VIT A,C & E-LUTEIN-MINERALS 1 EACH TAB PO SCH (08:27)
[2017-01-08] MEDS: CITALOPRAM HYDROBROMIDE 20 MG TAB PO SCH (08:27)
[2017-01-08] MEDS: POTASSIUM CHLORIDE ER 10 MEQ TAB.ER.PRT PO SCH (08:27)
[2017-01-08] MEDS: PANTOPRAZOLE 40 MG/10 ML VIAL IVP SCH (08:27)
[2017-01-08 12:16] LABS: Glucose,Whole Blood 102 mg/dL (75-99)
--- NOTE | 2017-01-08 12:35 | P.PN ---
Subjective Interval history: 01/06/17- this patient is seen and examined and evaluated today 01/06/2017 on the selective care unit. Patient is resting up in bed on 2 L of supplemental oxygen. She has intermittent shortness of breath with a cough and congestion. She did have her NG tube removed yesterday. She has been tolerating food and fluids this morning. Is any abdominal pain at this time. Wound culture has been completed and shows Ingrid albicans, enterococcus faecalis and staphylococcal aureus. Urine, sputum and blood cultures have been negative so far. She has been afebrile no further complaints. 01/07/17- patient underwent a barium swallow study this morning those results are not readily available at this time. Apparently the patient did fail her swallow evaluation at bedside yesterday. She was made nothing by mouth after failing the evening of impending barium swallow study. Currently the patient's resting up in bed on 3 LPM, of supplemental oxygen. Continues to have shortness of breath with activity or exertion. Continues with cough and congestion however has not brought up any sputum. 01/08/17- patient is being seen and examined and evaluated today on rounds. Currently she is resting up in bed on 3 L of nasal cannula. She continues to have shortness of breath with activity and exertion. She states her cough and congestion has significantly improved. Patient is being worked up for discharge planning back to rehab facility in the near future. Barium swallow study from yesterday was negative. Labs and reports have been reviewed. She is afebrile no overnight events. Continues to have some discomfort to the wound areas. Objective - Vital Signs Vital signs: Vital Signs Temp 96.2 F L 01/07/17 23:00 Pulse 88 01/08/17 11:50 Resp 16 01/08/17 08:00 BP 96/55 01/07/17 23:00 Pulse Ox 100 01/07/17 23:00 Intake & Output 01/07/17 01/08/17 01/08/17 18:59 06:59 18:59 Intake Total 250 Balance 250 Weight 99.337 kg Intake: IV 250 D5 @ 50ml/hr 200 Piperacillin-Tazobactam 3 50 .375 gm In Dextrose/Water 1 50ml.bag @ 12.5 mls/hr IVPB Q8HR [facility] Rx#: [id number] Other: Voiding Method Diaper Diaper Diaper Incontinent Incontinent Incontinent # Voids 1 - Exam GENERAL EXAM: Alert, active, comfortable in no apparent distress. HEAD: Normocephalic. EYES: Normal reaction of pupils, equal size. NOSE: Clear with pink turbinates. THROAT: No erythema or exudates. NECK: No masses, no JVD. CHEST: No chest wall deformity. LUNGS: Equal air entry slightly coarse with no crackles, wheeze, rhonchi or dullness. Bases diminished CVS: S1 and S2 normal with no audible mumurs, regular rhythm. ABDOMEN: No hepatosplenomegaly, normal bowel sounds, no guarding or rigidity. EXTREMITIES: No edema noted, pedal pulses palpable. Patient does have a left axillary early dressing with packing clean dry and intact. Tender SKIN: No rashes, shingles rash on right neck and anterior chest wall. Tender CENTRAL NERVOUS SYSTEM: No focal deficits, tone is normal in all 4 extremities. - Labs CBC & Chem 7: 01/07/17 08:12 01/07/17 08:12 Labs: Abnormal Lab Results - Last 24 Hours (Table) 01/07/17 01/08/17 01/08/17 Range/Units 12:35 00:27 12:15 POC Glucose (mg/dL) 109 H 102 H 102 H (75-99) mg/dL Assessment and Plan Plan: Assessment Left axillary abscess, status post I&D with surrounding cellulitis Small bowel obstruction/ileus Obstructive sleep apnea Paroxysmal atrial fibrillation, currently sinus rhythm Coronary artery disease Chronic lower extremity edema Schizophrenic disorder Hypertension Generalized anxiety disorder Peripheral neuropathy Diabetes mellitus type 2 Acute renal failure secondary to intravascular depletion Shingles affecting the right chest area, improved Plan Discharge planning in place to go back to extended care facility. It is unclear whether she will have a wound pack placed or not at this time. Labs and reports have been reviewed. Medications have been reviewed and will be continued as ordered. Appreciate consults and recommendations. Continue with pulmonary hygiene, coughing and deep breathing exercises, and supportive care. Supplemental oxygen to maintain oxygen saturations of 92% or better. Continue nebulizer treatments. GI and DVT prophylaxis. We will continue to monitor labs/ results and adjust treatment as necessary. Further recommendations pending. I performed an examination of the patient and discussed their management with the nurse practitioner. I have reviewed the nurse practitioner's note and agree with the documented findings and plan of care.
[2017-01-08] MEDS: FERROUS SULFATE 325 MG TAB PO SCH (16:36)
[2017-01-08 18:20] LABS: Glucose,Whole Blood 121 mg/dL (75-99)
[2017-01-08] MEDS: QUEtiapine 400 MG TAB PO SCH (21:30)
[2017-01-08] MEDS: ATORVASTATIN 10 MG TAB PO SCH (21:30)
--- NOTE | 2017-01-08 23:32 | P.PN ---
Subjective Principal diagnosis: Left axillary abscess 67-year-old female came in for left axillary abscess. Abscess was drained during her previous hospitalization which appears to be infected again. And patient has a wound VAC in place. Inpatient the wound cultures are positive mild the bacterial including enterococcus, MSSA and patient is presently on Zosyn to cover anaerobes as well. I discontinue levofloxacin. Patient and that ended up having ileus versus partial small bowel obstruction for which patient will undergo abdominal CAT scan patient has an NG tube. And the patient went into atrial fibrillation couple days ago patient is presently rate controlled is on a small dose of her lip was and patient has acute renal failure secondary to intravascular volume depletion secondary to bowel obstruction and significant NG tube drainage yesterday. Patient did has minimal drainage today because of which I'll continue her on 100 mL of normal saline and the recheck the Trileptal lites and kidney function tomorrow. Patient does have some peripheral edema because of which I'm not hydrating headache aggressively. patient denied any chest pain palpitations, dysuria, denied any abdominal pain. On 01/04/2017 Patient denies any new complaints left axillary pain improved only work was removed. No fever no chills. Her CBCs and 40s this morning. Patient is currently nothing by mouth and is on NG tube. Abdominal pain improved computed tomography scan of the abdomen did not show any obstruction. Pulmonary and general surgery and ID is following this patient. 01/05/2017. Patient did improve symptomatically. No nausea. Abdominal pain improved. Dialysis is planning for discontinuation of NG tube. Patient continues to be afebrile no acute or new tissues. 01/06/2017 Patient denied any complaints of abdominal pain today. Patient failed swallow solution and barium swallow was ordered. Currently patient is nothing by mouth. NG tube was removed. No fever no chills. Patient was on D5 normal saline. 01/07/2017 Patient had normal barium swallow study. Started on diet. Otherwise patient denied any fever or chills. No abdominal pain. Patient did have small bowel movement yesterday. No acute overnight issues. Continued on IV antibiotics. Objective - Vital Signs Vital signs: Vital Signs Temp 97.8 F 01/07/17 15:00 Pulse 77 01/07/17 15:56 Resp 18 01/07/17 18:29 BP 110/55 01/07/17 15:00 Pulse Ox 95 01/07/17 15:00 Intake & Output 01/07/17 01/07/17 01/08/17 06:59 18:59 06:59 Intake Total 250 Balance 250 Weight 99.337 kg Intake: IV 250 D5 @ 50ml/hr 200 Piperacillin-Tazobactam 3 50 .375 gm In Dextrose/Water 1 50ml.bag @ 12.5 mls/hr IVPB Q8HR [facility] Rx#: [id number] Other: Voiding Method Diaper Diaper Incontinent Incontinent # Voids 1 - Exam GENERAL: The patient is alert and oriented x3, not in any acute distress. Well developed, well nourished. HEENT: Pupils are round and equally reacting to light. EOMI. No scleral icterus. No conjunctival pallor. Normocephalic, atraumatic. No pharyngeal erythema. No thyromegaly. CARDIOVASCULAR: S1 and S2 present. No murmurs, rubs, or gallops. PULMONARY: Chest is clear to auscultation, no wheezing or crackles. ABDOMEN: Mildly distended abdomen sluggish bowel sounds. MUSCULOSKELETAL: No joint swelling or deformity. EXTREMITIES: No cyanosis, clubbing, or pedal edema. Does have left axillary abscess post packing and patient has a wound VAC in place. NEUROLOGICAL: Gross neurological examination did not reveal any focal deficits. SKIN: No rashes. - Labs CBC & Chem 7: 01/07/17 08:12 01/07/17 08:12 Labs: Abnormal Lab Results - Last 24 Hours (Table) 01/07/17 01/07/17 01/07/17 Range/Units 00:20 05:57 08:12 RBC (3.80-5.40) m/uL Hgb (11.4-16.0) gm/dL Hct (34.0-46.0) % Lymphocytes # (Manual) (1.0-4.8) k/uL Chloride 111 H (98-107) mmol/L Carbon Dioxide 21 L (22-30) mmol/L BUN 30 H (7-17) mg/dL POC Glucose (mg/dL) 119 H 104 H (75-99) mg/dL Calcium 8.2 L (8.4-10.2) mg/dL 01/07/17 01/07/17 Range/Units 08:12 12:35 RBC 2.48 L (3.80-5.40) m/uL Hgb 8.1 L (11.4-16.0) gm/dL Hct 24.4 L (34.0-46.0) % Lymphocytes # (Manual) 5.35 H (1.0-4.8) k/uL Chloride (98-107) mmol/L Carbon Dioxide (22-30) mmol/L BUN (7-17) mg/dL POC Glucose (mg/dL) 109 H (75-99) mg/dL Calcium (8.4-10.2) mg/dL Assessment and Plan Plan: 1 difficulty swallowing. Status post removal of NG tube. Patient does have normal barium study. Started on diet tolerating.. 1 left axillary abscess, status post incision and drainage with surrounding cellulitis. Cultures are showing Enterococcus faecalis and MSSA. The patient currently on IV Zosyn. ID and general surgery are both on the case. Wound VAC was removed. Conjunctivae antibiotics as per ID. 2 small bowel obstruction/ileus, status post NG tube insertion. Abdominal pain improved, discontinued NG tube. 3 paroxysmal atrial fibrillation currently in sinus rhythm: Patient is on anticoagulation with Apaxiban. 4 coronary artery disease with 50% lesion in the LAD 5 chronic lower extremities edema 6 schizophrenic disorder 7 hypertension 8 hyperlipidemia 9 generalized anxiety disorder 10 peripheral neuropathy 11 Type 2 diabetes mellitus 12 acute renal failure and tachycardia: Secondary to intravascular depletion from significant NG tube drainage which is expected to improve with IV fluids. 13 bronchial asthma not in acute exacerbation 13 shingles affecting the right chest area, improved currently on Valtrex. For above-mentioned chronic medical problems patient will be continued on present medications. will monitor and titrate as needed.
--- NOTE | 2017-01-08 23:38 | P.PN ---
Subjective Principal diagnosis: Left axillary abscess 67-year-old female came in for left axillary abscess. Abscess was drained during her previous hospitalization which appears to be infected again. And patient has a wound VAC in place. Inpatient the wound cultures are positive mild the bacterial including enterococcus, MSSA and patient is presently on Zosyn to cover anaerobes as well. I discontinue levofloxacin. Patient and that ended up having ileus versus partial small bowel obstruction for which patient will undergo abdominal CAT scan patient has an NG tube. And the patient went into atrial fibrillation couple days ago patient is presently rate controlled is on a small dose of her lip was and patient has acute renal failure secondary to intravascular volume depletion secondary to bowel obstruction and significant NG tube drainage yesterday. Patient did has minimal drainage today because of which I'll continue her on 100 mL of normal saline and the recheck the Trileptal lites and kidney function tomorrow. Patient does have some peripheral edema because of which I'm not hydrating headache aggressively. patient denied any chest pain palpitations, dysuria, denied any abdominal pain. On 01/04/2017 Patient denies any new complaints left axillary pain improved only work was removed. No fever no chills. Her CBCs and 40s this morning. Patient is currently nothing by mouth and is on NG tube. Abdominal pain improved computed tomography scan of the abdomen did not show any obstruction. Pulmonary and general surgery and ID is following this patient. 01/05/2017. Patient did improve symptomatically. No nausea. Abdominal pain improved. Dialysis is planning for discontinuation of NG tube. Patient continues to be afebrile no acute or new tissues. 01/06/2017 Patient denied any complaints of abdominal pain today. Patient failed swallow solution and barium swallow was ordered. Currently patient is nothing by mouth. NG tube was removed. No fever no chills. Patient was on D5 normal saline. 01/07/2017 Patient had normal barium swallow study. Started on diet. Otherwise patient denied any fever or chills. No abdominal pain. Patient did have small bowel movement yesterday. No acute overnight issues. Continued on IV antibiotics. 01/08/2017 Patient is tolerating by mouth diet. Currently on IV antibiotics for enterococcus staph wound infection. Rash over the right neck and anterior chest much improved now. No fever no chills. Anticipate discharge to extricated facility with final antibiotic recommendations. Objective - Vital Signs Vital signs: Vital Signs Temp 97.6 F 01/08/17 15:00 Pulse 86 01/08/17 16:16 Resp 18 01/08/17 15:00 BP 114/62 01/08/17 15:00 Pulse Ox 98 01/08/17 15:00 Intake & Output 01/08/17 01/08/17 01/09/17 06:59 18:59 06:59 Other: Voiding Method Diaper Diaper Incontinent Incontinent # Voids 1 2 - Exam GENERAL: The patient is alert and oriented x3, not in any acute distress. Well developed, well nourished. HEENT: Pupils are round and equally reacting to light. EOMI. No scleral icterus. No conjunctival pallor. Normocephalic, atraumatic. No pharyngeal erythema. No thyromegaly. CARDIOVASCULAR: S1 and S2 present. No murmurs, rubs, or gallops. Anterior chest wall rash improved PULMONARY: Chest is clear to auscultation, no wheezing or crackles. ABDOMEN: Mildly distended abdomen sluggish bowel sounds. MUSCULOSKELETAL: No joint swelling or deformity. EXTREMITIES: No cyanosis, clubbing, or pedal edema. Does have left axillary abscess post packing and patient has a wound VAC in place. NEUROLOGICAL: Gross neurological examination did not reveal any focal deficits. SKIN: No rashes. - Labs CBC & Chem 7: 01/07/17 08:12 01/07/17 08:12 Labs: Abnormal Lab Results - Last 24 Hours (Table) 01/08/17 01/08/17 01/08/17 Range/Units 00:27 12:15 18:18 POC Glucose (mg/dL) 102 H 102 H 121 H (75-99) mg/dL Assessment and Plan Plan: 1 difficulty swallowing. Status post removal of NG tube. Patient does have normal barium study. Started on diet tolerating.. 1 left axillary abscess, status post incision and drainage with surrounding cellulitis. Cultures are showing Enterococcus faecalis and MSSA. The patient currently on IV Zosyn. ID and general surgery are both on the case. Wound VAC was removed. Continue antibiotics in the form of Zosyn as per ID. 2 small bowel obstruction/ileus, status post NG tube insertion. Abdominal pain improved, discontinued NG tube. 3 paroxysmal atrial fibrillation currently in sinus rhythm: Patient is on anticoagulation with Apaxiban. 4 coronary artery disease with 50% lesion in the LAD 5 chronic lower extremities edema 6 schizophrenic disorder 7 hypertension 8 hyperlipidemia 9 generalized anxiety disorder 10 peripheral neuropathy 11 Type 2 diabetes mellitus 12 acute renal failure and tachycardia: Secondary to intravascular depletion from significant NG tube drainage which is expected to improve with IV fluids. 13 bronchial asthma not in acute exacerbation 13 shingles affecting the right chest area, improved. currently on Valtrex. For above-mentioned chronic medical problems patient will be continued on present medications. will monitor and titrate as needed.
[2017-01-09 01:21] LABS: Glucose,Whole Blood 84 mg/dL (75-99)
[2017-01-09] MEDS: valACYclovir HCL 1,000 MG TABLET PO SCH ×3 (06:14→21:02)
[2017-01-09 07:13] LABS: Glucose,Whole Blood 93 mg/dL (75-99)
[2017-01-09] MEDS: VIT A,C & E-LUTEIN-MINERALS 1 EACH TAB PO SCH (08:21)
[2017-01-09] MEDS: CITALOPRAM HYDROBROMIDE 20 MG TAB PO SCH (08:21)
[2017-01-09] MEDS: SENNOSIDES 8.6 MG TAB PO SCH ×2 (08:22→16:30)
[2017-01-09] MEDS: LORATADINE 10 MG TAB PO SCH (08:22)
[2017-01-09] MEDS: CHOLECALCIFEROL 1,000 UNIT TAB PO SCH (08:22)
[2017-01-09] MEDS: GABAPENTIN 300 MG CAP PO SCH ×2 (08:22→16:30)
[2017-01-09] MEDS: DIGOXIN 125 MCG TAB PO SCH (08:22)
[2017-01-09] MEDS: METOPROLOL TARTRATE 25 MG TAB PO SCH ×3 (08:22→21:02)
[2017-01-09] MEDS: PANTOPRAZOLE 40 MG TABLET PO SCH (08:23)
[2017-01-09] MEDS: PIPERACILLIN-TAZOBACTAM 3.375 GM in DEXTROSE/WATER 1 50ML.BAG IVPB SCH (08:23)
[2017-01-09] MEDS: ASPIRIN 81 MG PO SCH (08:23)
[2017-01-09] MEDS: APIXABAN 2.5 MG TABLET PO SCH ×2 (08:23→20:41)
[2017-01-09] MEDS: POTASSIUM CHLORIDE ER 10 MEQ TAB.ER.PRT PO SCH (08:30)
[2017-01-09] MEDS: IPRATROPIUM-ALBUTEROL 3 ML NEB INHALATION SCH ×5 (08:58→19:46)
[2017-01-09] MEDS: BUDESONIDE 0.5 MG/2 ML NEBU INHALATION SCH ×2 (08:58→19:46)
--- NOTE | 2017-01-09 09:25 | P.PN ---
Progress Note - Text Patient is being seen for Dr. Alvarez in his absence. The patient is stable. She is trying to eat some breakfast this morning. States she doesn't have an appetite. No nausea or vomiting. The abscess cavity in the left axilla is clear open and clean draining seropurulent material on the bandage. No significant cellulitis around it. The exam otherwise is unchanged. Abdomen is somewhat obese. Soft. Difficult to evaluate because of her weight. Does not appear to be distended. No significant tenderness. Impression. Resolving ileus. Improving abscess left axilla. Recommendation. Continued medical management. We will follow periodically.
[2017-01-09 12:15] LABS: Glucose,Whole Blood 95 mg/dL (75-99)
--- NOTE | 2017-01-09 12:46 | P.PN ---
Subjective Interval history: 01/06/17- this patient is seen and examined and evaluated today 01/06/2017 on the selective care unit. Patient is resting up in bed on 2 L of supplemental oxygen. She has intermittent shortness of breath with a cough and congestion. She did have her NG tube removed yesterday. She has been tolerating food and fluids this morning. Is any abdominal pain at this time. Wound culture has been completed and shows Ingrid albicans, enterococcus faecalis and staphylococcal aureus. Urine, sputum and blood cultures have been negative so far. She has been afebrile no further complaints. 01/07/17- patient underwent a barium swallow study this morning those results are not readily available at this time. Apparently the patient did fail her swallow evaluation at bedside yesterday. She was made nothing by mouth after failing the evening of impending barium swallow study. Currently the patient's resting up in bed on 3 LPM, of supplemental oxygen. Continues to have shortness of breath with activity or exertion. Continues with cough and congestion however has not brought up any sputum. 01/08/17- patient is being seen and examined and evaluated today on rounds. Currently she is resting up in bed on 3 L of nasal cannula. She continues to have shortness of breath with activity and exertion. She states her cough and congestion has significantly improved. Patient is being worked up for discharge planning back to rehab facility in the near future. Barium swallow study from yesterday was negative. Labs and reports have been reviewed. She is afebrile no overnight events. Continues to have some discomfort to the wound areas. 01/09/17- patient has been seen and examined and evaluated today on the fourth floor. Currently she is resting up in bed on 3 L of supplemental oxygen. Has minimal cough or congestion. Continues with shortness of breath with exertion. She did have a large bowel movement yesterday evening per the nurse. He has a good appetite and has been tolerating her diet well. She is afebrile, no overnight events. Objective - Vital Signs Vital signs: Vital Signs Temp 97.6 F 01/09/17 07:00 Pulse 92 01/09/17 11:43 Resp 18 01/09/17 07:00 BP 109/58 01/09/17 07:00 Pulse Ox 94 L 01/09/17 07:00 Intake & Output 01/08/17 01/09/17 01/09/17 18:59 06:59 18:59 Other: Voiding Method Diaper Diaper Diaper Incontinent Incontinent Incontinent # Voids 2 1 - Exam GENERAL EXAM: Alert, active, comfortable in no apparent distress. HEAD: Normocephalic. EYES: Normal reaction of pupils, equal size. NOSE: Clear with pink turbinates. THROAT: No erythema or exudates. NECK: No masses, no JVD. CHEST: No chest wall deformity. LUNGS: Equal air entry slightly coarse with no crackles, wheeze, rhonchi or dullness. Bases diminished CVS: S1 and S2 normal with no audible mumurs, regular rhythm. ABDOMEN: No hepatosplenomegaly, normal bowel sounds, no guarding or rigidity. EXTREMITIES: No edema noted, pedal pulses palpable. Patient does have a left axillary early dressing with packing clean dry and intact. Tender SKIN: No rashes, shingles rash on right neck and anterior chest wall. Tender CENTRAL NERVOUS SYSTEM: No focal deficits, tone is normal in all 4 extremities. - Labs CBC & Chem 7: 01/07/17 08:12 01/07/17 08:12 Labs: Abnormal Lab Results - Last 24 Hours (Table) 01/08/17 Range/Units 18:18 POC Glucose (mg/dL) 121 H (75-99) mg/dL Assessment and Plan Plan: Assessment Left axillary abscess, status post I&D with surrounding cellulitis Small bowel obstruction/ileus Obstructive sleep apnea Paroxysmal atrial fibrillation, currently sinus rhythm Coronary artery disease Chronic lower extremity edema Schizophrenic disorder Hypertension Generalized anxiety disorder Peripheral neuropathy Diabetes mellitus type 2 Acute renal failure secondary to intravascular depletion Shingles affecting the right chest area, improved Plan Patient can be cleared from a pulmonary standpoint for discharge. Discharge planning in place to go back to extended care facility. It is unclear whether she will have a wound pack placed or not at this time. Labs and reports have been reviewed. Medications have been reviewed and will be continued as ordered. Appreciate consults and recommendations. Continue with pulmonary hygiene, coughing and deep breathing exercises, and supportive care. Supplemental oxygen to maintain oxygen saturations of 92% or better. Continue nebulizer treatments. GI and DVT prophylaxis. We will continue to monitor labs/ results and adjust treatment as necessary. Further recommendations pending. I performed an examination of the patient and discussed their management with the nurse practitioner. I have reviewed the nurse practitioner's note and agree with the documented findings and plan of care.
[2017-01-09] MEDS: ZINC OXIDE 20% OINT 28.4 GM TUBE TOPICAL SCH (13:40)
[2017-01-09] MEDS: CYANOCOBALAMIN 500 MCG TAB PO SCH (13:40)
[2017-01-09] MEDS: FERROUS SULFATE 325 MG TAB PO SCH (16:30)
[2017-01-09 17:14] LABS: Glucose,Whole Blood 117 mg/dL (75-99)
[2017-01-09] MEDS: ONDANSETRON 4 MG/2 ML VIAL IVP PRN (17:20)
--- NOTE | 2017-01-09 18:31 | XR ---
EXAMINATION TYPE: XR abdomen 1V DATE OF EXAM: 01/09/2017 COMPARISON: NONE INDICATION: Previous abnormal abdomen, nausea vomiting abdominal pain TECHNIQUE: Single view abdomen supine view FINDINGS: Dilated small bowel loops are within the mid abdomen. The stomach is distended with air. Contrast is within the colon. Psoas margins are poorly visualized due to body habitus. No organomegaly is present. Cholecystectomy clips are in the right upper quadrant. IMPRESSION: 1. Findings appear suggestive for ileus, similar to prior study. The stomach is distended with air. C ontrast passes through to the colon.
[2017-01-09] MEDS: QUEtiapine 400 MG TAB PO SCH (20:41)
[2017-01-09] MEDS: ATORVASTATIN 10 MG TAB PO SCH (20:42)
[2017-01-10 00:09] LABS: Glucose,Whole Blood 102 mg/dL (75-99)
[2017-01-10] MEDS: ONDANSETRON 4 MG/2 ML VIAL IVP PRN (00:11)
--- NOTE | 2017-01-10 01:25 | P.PN ---
Subjective Principal diagnosis: Left axillary abscess 67-year-old female came in for left axillary abscess. Abscess was drained during her previous hospitalization which appears to be infected again. And patient has a wound VAC in place. Inpatient the wound cultures are positive mild the bacterial including enterococcus, MSSA and patient is presently on Zosyn to cover anaerobes as well. I discontinue levofloxacin. Patient and that ended up having ileus versus partial small bowel obstruction for which patient will undergo abdominal CAT scan patient has an NG tube. And the patient went into atrial fibrillation couple days ago patient is presently rate controlled is on a small dose of her lip was and patient has acute renal failure secondary to intravascular volume depletion secondary to bowel obstruction and significant NG tube drainage yesterday. Patient did has minimal drainage today because of which I'll continue her on 100 mL of normal saline and the recheck the Trileptal lites and kidney function tomorrow. Patient does have some peripheral edema because of which I'm not hydrating headache aggressively. patient denied any chest pain palpitations, dysuria, denied any abdominal pain. On 01/04/2017 Patient denies any new complaints left axillary pain improved only work was removed. No fever no chills. Her CBCs and 40s this morning. Patient is currently nothing by mouth and is on NG tube. Abdominal pain improved computed tomography scan of the abdomen did not show any obstruction. Pulmonary and general surgery and ID is following this patient. 01/05/2017. Patient did improve symptomatically. No nausea. Abdominal pain improved. Dialysis is planning for discontinuation of NG tube. Patient continues to be afebrile no acute or new tissues. 01/06/2017 Patient denied any complaints of abdominal pain today. Patient failed swallow solution and barium swallow was ordered. Currently patient is nothing by mouth. NG tube was removed. No fever no chills. Patient was on D5 normal saline. 01/07/2017 Patient had normal barium swallow study. Started on diet. Otherwise patient denied any fever or chills. No abdominal pain. Patient did have small bowel movement yesterday. No acute overnight issues. Continued on IV antibiotics. 01/08/2017 Patient is tolerating by mouth diet. Currently on IV antibiotics for enterococcus staph wound infection. Rash over the right neck and anterior chest much improved now. No fever no chills. Anticipate discharge to extricated facility with final antibiotic recommendations. 01/09/2017 Patient complains of abdominal discomfort today. Tolerating diet. Continues to be on IV antibiotics. No chest pain or trouble. Patient is passing flatus. No fever no chills no chest pain or shortness breath Objective - Vital Signs Vital signs: Vital Signs Temp 97.4 F L 01/09/17 15:00 Pulse 91 01/09/17 15:00 Resp 18 01/09/17 15:00 BP 112/66 01/09/17 15:00 Pulse Ox 95 01/09/17 15:00 Intake & Output 01/09/17 01/09/17 01/10/17 06:59 18:59 06:59 Intake Total 480 Output Total 3 Balance 477 Intake: Oral 480 Output: Emesis 3 Other: Voiding Method Diaper Diaper Incontinent Incontinent # Voids 1 3 # Bowel Movements 1 - Exam GENERAL: The patient is alert and oriented x3, not in any acute distress. Well developed, well nourished. HEENT: Pupils are round and equally reacting to light. EOMI. No scleral icterus. No conjunctival pallor. Normocephalic, atraumatic. No pharyngeal erythema. No thyromegaly. CARDIOVASCULAR: S1 and S2 present. No murmurs, rubs, or gallops. Anterior chest wall rash improved PULMONARY: Chest is clear to auscultation, no wheezing or crackles. ABDOMEN: Mildly distended abdomen sluggish bowel sounds. MUSCULOSKELETAL: No joint swelling or deformity. EXTREMITIES: No cyanosis, clubbing, or pedal edema. Does have left axillary abscess post packing and patient has a wound VAC in place. NEUROLOGICAL: Gross neurological examination did not reveal any focal deficits. SKIN: No rashes. - Labs CBC & Chem 7: 01/07/17 08:12 01/07/17 08:12 Labs: Abnormal Lab Results - Last 24 Hours (Table) 01/09/17 Range/Units 17:10 POC Glucose (mg/dL) 117 H (75-99) mg/dL Assessment and Plan Plan: 1 difficulty swallowing. Status post removal of NG tube. Patient does have normal barium study. Started on diet tolerating.. 1 left axillary abscess, status post incision and drainage with surrounding cellulitis. Cultures are showing Enterococcus faecalis and MSSA. The patient currently on IV Zosyn. ID and general surgery are both on the case. Wound VAC was removed. Continue antibiotics in the form of Zosyn as per ID. 2 small bowel obstruction/ileus, status post NG tube insertion. Abdominal pain improved, discontinued NG tube. 3 paroxysmal atrial fibrillation currently in sinus rhythm: Patient is on anticoagulation with Apaxiban. 4 coronary artery disease with 50% lesion in the LAD 5 chronic lower extremities edema 6 schizophrenic disorder 7 hypertension 8 hyperlipidemia 9 generalized anxiety disorder 10 peripheral neuropathy 11 Type 2 diabetes mellitus 12 acute renal failure and tachycardia: Secondary to intravascular depletion from significant NG tube drainage which is expected to improve with IV fluids. 13 bronchial asthma not in acute exacerbation 13 shingles affecting the right chest area, improved. currently on Valtrex. For above-mentioned chronic medical problems patient will be continued on present medications. will monitor and titrate as needed.
[2017-01-10] MEDS: ZINC OXIDE 20% OINT 28.4 GM TUBE TOPICAL SCH ×2 (06:08→12:53)
[2017-01-10] MEDS: valACYclovir HCL 1,000 MG TABLET PO SCH ×3 (06:09→21:21)
[2017-01-10 06:48] LABS: Glucose,Whole Blood 80 mg/dL (75-99)
[2017-01-10] MEDS: IPRATROPIUM-ALBUTEROL 3 ML NEB INHALATION SCH ×4 (08:15→19:26)
[2017-01-10] MEDS: BUDESONIDE 0.5 MG/2 ML NEBU INHALATION SCH ×2 (08:15→19:26)
[2017-01-10 08:41] LABS: Basophils % (A) 0 %; CH 31.9; CHCM 31.1; Eosinophils % (A) 0 %; HCT 24.1 % (34.0-46.0); HDW 2.69; HGB 7.2 gm/dL (11.4-16.0); Hypochromasia Slight; Luc # (Auto) 0.18; Luc % (Auto) 2; Lymphocytes # (A) 1.6 k/uL (1.0-4.8); Lymphocytes % (A) 15 %; MCH 30.7 pg (25.0-35.0); MCHC 29.9 g/dL (31.0-37.0); MCV 102.9 fL (80.0-100.0); Macrocytosis Slight; Mean Platelet Volume 7.7; Monocytes # (A) 0.4 k/uL (0-1.0); Monocytes % (A) 3 %; Neutrophils # (A) 8.6 k/uL (1.3-7.7); Neutrophils % (A) 80 %; RBC 2.34 m/uL (3.80-5.40); WBC 10.7 k/uL (3.8-10.6); WBC (Perox) 11.37
[2017-01-10] MEDS: APIXABAN 2.5 MG TABLET PO SCH ×2 (08:45→21:20)
[2017-01-10] MEDS: PANTOPRAZOLE 40 MG TABLET PO SCH (08:45)
[2017-01-10] MEDS: CHOLECALCIFEROL 1,000 UNIT TAB PO SCH (08:45)
[2017-01-10] MEDS: ASPIRIN 81 MG PO SCH (08:45)
[2017-01-10] MEDS: DIGOXIN 125 MCG TAB PO SCH (08:45)
[2017-01-10] MEDS: POTASSIUM CHLORIDE ER 10 MEQ TAB.ER.PRT PO SCH (08:46)
[2017-01-10] MEDS: GABAPENTIN 300 MG CAP PO SCH ×2 (08:46→16:44)
[2017-01-10] MEDS: CITALOPRAM HYDROBROMIDE 20 MG TAB PO SCH (08:46)
[2017-01-10] MEDS: METOPROLOL TARTRATE 25 MG TAB PO SCH ×3 (08:46→21:21)
[2017-01-10] MEDS: LORATADINE 10 MG TAB PO SCH (08:46)
[2017-01-10] MEDS: SENNOSIDES 8.6 MG TAB PO SCH ×2 (08:46→16:44)
[2017-01-10] MEDS: VIT A,C & E-LUTEIN-MINERALS 1 EACH TAB PO SCH (08:47)
[2017-01-10 08:50] LABS: Anion Gap 7 mmol/L; Blood Urea Nitrogen 22 mg/dL (7-17); Calcium 8.8 mg/dL (8.4-10.2); Carbon Dioxide 27 mmol/L (22-30); Chloride 105 mmol/L (98-107); Glucose 63 mg/dL (74-99); Non-African American GFR(MDRD) 51 (>60 ml/min/1.73 sqM); Potassium 3.9 mmol/L (3.5-5.1); Sodium 139 mmol/L (137-145)
--- NOTE | 2017-01-10 09:15 | XR ---
EXAMINATION TYPE: XR abdomen 1V DATE OF EXAM: 01/10/2017 COMPARISON: 01/09/2017 INDICATION: Pain history of ileus TECHNIQUE: Single view abdomen supine view FINDINGS: Contrast remains within the colon. Small bowel loops containing air remain present. The nasogastric t ube is been placed into the stomach with decompression of the stomach. Tip is in the left upper quadr ant of the abdomen. Psoas margins are normal. No organomegaly is present. IMPRESSION: 1. Ileus versus obstruction. 2. Placement of a nasogastric tube decompressing stomach air
[2017-01-10] MEDS: PIPERACILLIN-TAZOBACTAM 3.375 GM in DEXTROSE/WATER 1 50ML.BAG IVPB SCH ×3 (11:09→23:48)
[2017-01-10 12:04] LABS: Glucose,Whole Blood 80 mg/dL (75-99)
--- NOTE | 2017-01-10 12:16 | P.PN ---
Subjective Interval history: 01/06/17- this patient is seen and examined and evaluated today 01/06/2017 on the selective care unit. Patient is resting up in bed on 2 L of supplemental oxygen. She has intermittent shortness of breath with a cough and congestion. She did have her NG tube removed yesterday. She has been tolerating food and fluids this morning. Is any abdominal pain at this time. Wound culture has been completed and shows Ingrid albicans, enterococcus faecalis and staphylococcal aureus. Urine, sputum and blood cultures have been negative so far. She has been afebrile no further complaints. 01/07/17- patient underwent a barium swallow study this morning those results are not readily available at this time. Apparently the patient did fail her swallow evaluation at bedside yesterday. She was made nothing by mouth after failing the evening of impending barium swallow study. Currently the patient's resting up in bed on 3 LPM, of supplemental oxygen. Continues to have shortness of breath with activity or exertion. Continues with cough and congestion however has not brought up any sputum. 01/08/17- patient is being seen and examined and evaluated today on rounds. Currently she is resting up in bed on 3 L of nasal cannula. She continues to have shortness of breath with activity and exertion. She states her cough and congestion has significantly improved. Patient is being worked up for discharge planning back to rehab facility in the near future. Barium swallow study from yesterday was negative. Labs and reports have been reviewed. She is afebrile no overnight events. Continues to have some discomfort to the wound areas. 01/09/17- patient has been seen and examined and evaluated today on the fourth floor. Currently she is resting up in bed on 3 L of supplemental oxygen. Has minimal cough or congestion. Continues with shortness of breath with exertion. She did have a large bowel movement yesterday evening per the nurse. He has a good appetite and has been tolerating her diet well. She is afebrile, no overnight events. 01/10/17- patient is being seen examined and evaluated today on the fourth floor. Patient did have an abdominal x-ray last night and again this morning. Abdominal x-ray results shows ileus versus obstruction. An NG tube has also been placed and has had significant coffee ground output. Patient states she does feel slightly bloated. She continues to have shortness of breath with exertion. Does complain of some diffuse abdominal discomfort today. Objective - Vital Signs Vital signs: Vital Signs Temp 97.9 F 01/10/17 07:00 Pulse 64 01/10/17 07:00 Resp 18 01/10/17 07:00 BP 120/56 01/10/17 07:00 Pulse Ox 95 01/10/17 07:00 Intake & Output 01/09/17 01/10/17 01/10/17 18:59 06:59 18:59 Intake Total 480 Output Total 3 800 Balance 477 -800 Intake: Oral 480 Output: Gastric Drainage 800 Emesis 3 Other: Voiding Method Diaper Diaper Incontinent Incontinent Incontinent # Voids 3 1 # Bowel Movements 1 - Exam GENERAL EXAM: Alert, active, comfortable in no apparent distress. HEAD: Normocephalic. EYES: Normal reaction of pupils, equal size. NOSE: Clear with pink turbinates. NG tube present with dark coffee ground output THROAT: No erythema or exudates. NECK: No masses, no JVD. CHEST: No chest wall deformity. LUNGS: Equal air entry slightly coarse with no crackles, wheeze, rhonchi or dullness. Bases diminished CVS: S1 and S2 normal with no audible mumurs, regular rhythm. ABDOMEN: No hepatosplenomegaly, normal bowel sounds, no guarding or rigidity. EXTREMITIES: No edema noted, pedal pulses palpable. Patient does have a left axillary early dressing with packing clean dry and intact. Tender SKIN: No rashes, shingles rash on right neck and anterior chest wall. Tender CENTRAL NERVOUS SYSTEM: No focal deficits, tone is normal in all 4 extremities. - Labs CBC & Chem 7: 01/10/17 07:46 01/10/17 07:46 Labs: Abnormal Lab Results - Last 24 Hours (Table) 01/09/17 01/10/17 01/10/17 Range/Units 17:10 00:07 07:46 WBC 10.7 H (3.8-10.6) k/uL RBC 2.34 L (3.80-5.40) m/uL Hgb 7.2 L (11.4-16.0) gm/dL Hct 24.1 L (34.0-46.0) % MCV 102.9 H (80.0-100.0) fL MCHC 29.9 L (31.0-37.0) g/dL Neutrophils # 8.6 H (1.3-7.7) k/uL BUN (7-17) mg/dL Creatinine (0.52-1.04) mg/dL Glucose (74-99) mg/dL POC Glucose (mg/dL) 117 H 102 H (75-99) mg/dL 01/10/17 Range/Units 07:46 WBC (3.8-10.6) k/uL RBC (3.80-5.40) m/uL Hgb (11.4-16.0) gm/dL Hct (34.0-46.0) % MCV (80.0-100.0) fL MCHC (31.0-37.0) g/dL Neutrophils # (1.3-7.7) k/uL BUN 22 H (7-17) mg/dL Creatinine 1.10 H (0.52-1.04) mg/dL Glucose 63 L (74-99) mg/dL POC Glucose (mg/dL) (75-99) mg/dL Assessment and Plan Plan: Assessment Left axillary abscess, status post I&D with surrounding cellulitis Small bowel obstruction/ileus Obstructive sleep apnea Paroxysmal atrial fibrillation, currently sinus rhythm Coronary artery disease Chronic lower extremity edema Schizophrenic disorder Hypertension Generalized anxiety disorder Peripheral neuropathy Diabetes mellitus type 2 Acute renal failure secondary to intravascular depletion Shingles affecting the right chest area, improved Plan Discharge is currently being held at this time due to ileus/obstruction. Discharge planning in place to go back to extended care facility when stable. Labs and reports have been reviewed. Medications have been reviewed and will be continued as ordered. Appreciate consults and recommendations. Continue with pulmonary hygiene, coughing and deep breathing exercises, and supportive care. Supplemental oxygen to maintain oxygen saturations of 92% or better. Continue nebulizer treatments. GI and DVT prophylaxis. We will continue to monitor labs/results and adjust treatment as necessary. Further recommendations pending. I performed an examination of the patient and discussed their management with the nurse practitioner. I have reviewed the nurse practitioner's note and agree with the documented findings and plan of care.
--- NOTE | 2017-01-10 12:33 | P.PN ---
Progress Note - Text The patient had a few episodes of vomiting yesterday afternoon. Abdominal x- ray showed a distended stomach. There is contrast in the colon from her recent computed tomography scan however. NG tube was placed the yesterday. She feels much better. Had some diarrhea yesterday. Stool studies were negative for C. diff. On examination the patient is awake alert has NG tube in place. Greenish fluid in it. No fever. Vitals are stable. Abdomen is soft not particularly distended. No mass or organomegaly or hernias noted. Impression :ileus probably gastric ileus or gastroparesis. Recommendation. Continue NG tube. Repeat x-rays in the next day or 2. We will add Reglan.
[2017-01-10] MEDS: METOCLOPRAMIDE 5 MG/ML 2 ML VIAL IVP SCH ×3 (12:52→23:46)
[2017-01-10] MEDS ORDERED: METOCLOPRAMIDE 5 MG/ML 2 ML VIAL IVP SCH (16:00)
[2017-01-10] MEDS: FERROUS SULFATE 325 MG TAB PO SCH (16:44)
[2017-01-10] MEDS: DEXTROSE 5%-0.9% NACL 1,000 ML IV SCH (16:54)
[2017-01-10 18:25] LABS: Glucose,Whole Blood 84 mg/dL (75-99)
[2017-01-10] MEDS ORDERED: DEXTROSE 4 GM CHEWABLE ONE (21:15)
[2017-01-10] MEDS: ATORVASTATIN 10 MG TAB PO SCH (21:20)
[2017-01-10] MEDS: QUEtiapine 400 MG TAB PO SCH (21:21)
[2017-01-10 21:28] LABS: Glucose,Whole Blood 78 mg/dL (75-99)
[2017-01-11 00:03] LABS: Glucose,Whole Blood 89 mg/dL (75-99)
--- NOTE | 2017-01-11 01:27 | P.PN ---
Subjective Principal diagnosis: Left axillary abscess 67-year-old female came in for left axillary abscess. Abscess was drained during her previous hospitalization which appears to be infected again. And patient has a wound VAC in place. Inpatient the wound cultures are positive mild the bacterial including enterococcus, MSSA and patient is presently on Zosyn to cover anaerobes as well. I discontinue levofloxacin. Patient and that ended up having ileus versus partial small bowel obstruction for which patient will undergo abdominal CAT scan patient has an NG tube. And the patient went into atrial fibrillation couple days ago patient is presently rate controlled is on a small dose of her lip was and patient has acute renal failure secondary to intravascular volume depletion secondary to bowel obstruction and significant NG tube drainage yesterday. Patient did has minimal drainage today because of which I'll continue her on 100 mL of normal saline and the recheck the Trileptal lites and kidney function tomorrow. Patient does have some peripheral edema because of which I'm not hydrating headache aggressively. patient denied any chest pain palpitations, dysuria, denied any abdominal pain. On 01/04/2017 Patient denies any new complaints left axillary pain improved only work was removed. No fever no chills. Her CBCs and 40s this morning. Patient is currently nothing by mouth and is on NG tube. Abdominal pain improved computed tomography scan of the abdomen did not show any obstruction. Pulmonary and general surgery and ID is following this patient. 01/05/2017. Patient did improve symptomatically. No nausea. Abdominal pain improved. Dialysis is planning for discontinuation of NG tube. Patient continues to be afebrile no acute or new tissues. 01/06/2017 Patient denied any complaints of abdominal pain today. Patient failed swallow solution and barium swallow was ordered. Currently patient is nothing by mouth. NG tube was removed. No fever no chills. Patient was on D5 normal saline. 01/07/2017 Patient had normal barium swallow study. Started on diet. Otherwise patient denied any fever or chills. No abdominal pain. Patient did have small bowel movement yesterday. No acute overnight issues. Continued on IV antibiotics. 01/08/2017 Patient is tolerating by mouth diet. Currently on IV antibiotics for enterococcus staph wound infection. Rash over the right neck and anterior chest much improved now. No fever no chills. Anticipate discharge to extricated facility with final antibiotic recommendations. 01/09/2017 Patient complains of abdominal discomfort today. Tolerating diet. Continues to be on IV antibiotics. No chest pain or trouble. Patient is passing flatus. No fever no chills no chest pain or shortness breath 01/10/2017 Patient was found to have ileus again and was placed on NG tube. No fever no chills. No chest pain no trouble breath Objective - Vital Signs Vital signs: Vital Signs Temp 97.5 F L 01/10/17 14:07 Pulse 90 01/10/17 15:42 Resp 18 01/10/17 14:07 BP 98/52 01/10/17 14:07 Pulse Ox 96 01/10/17 14:07 Intake & Output 01/10/17 01/10/17 01/11/17 06:59 18:59 06:59 Output Total 800 600 Balance -800 -600 Output: Gastric Drainage 800 600 Other: Voiding Method Diaper Incontinent Incontinent # Voids 1 1 - Exam GENERAL: The patient is alert and oriented x3, not in any acute distress. Well developed, well nourished. HEENT: Pupils are round and equally reacting to light. EOMI. No scleral icterus. No conjunctival pallor. Normocephalic, atraumatic. No pharyngeal erythema. No thyromegaly. CARDIOVASCULAR: S1 and S2 present. No murmurs, rubs, or gallops. Anterior chest wall rash improved PULMONARY: Chest is clear to auscultation, no wheezing or crackles. ABDOMEN: Mildly distended abdomen sluggish bowel sounds. NG tube in place MUSCULOSKELETAL: No joint swelling or deformity. EXTREMITIES: No cyanosis, clubbing, or pedal edema. Does have left axillary wound NEUROLOGICAL: Gross neurological examination did not reveal any focal deficits. SKIN: No rashes. - Labs CBC & Chem 7: 01/10/17 07:46 01/10/17 07:46 Labs: Abnormal Lab Results - Last 24 Hours (Table) 01/10/17 01/10/17 01/10/17 Range/Units 00:07 07:46 07:46 WBC 10.7 H (3.8-10.6) k/uL RBC 2.34 L (3.80-5.40) m/uL Hgb 7.2 L (11.4-16.0) gm/dL Hct 24.1 L (34.0-46.0) % MCV 102.9 H (80.0-100.0) fL MCHC 29.9 L (31.0-37.0) g/dL Neutrophils # 8.6 H (1.3-7.7) k/uL BUN 22 H (7-17) mg/dL Creatinine 1.10 H (0.52-1.04) mg/dL Glucose 63 L (74-99) mg/dL POC Glucose (mg/dL) 102 H (75-99) mg/dL Assessment and Plan Plan: 1 difficulty swallowing. Status post removal of NG tube. Patient does have normal barium study. Started on diet tolerating.. 1 left axillary abscess, status post incision and drainage with surrounding cellulitis. Cultures are showing Enterococcus faecalis and MSSA. The patient currently on IV Zosyn. ID and general surgery are both on the case. Wound VAC was removed. Continue antibiotics in the form of Zosyn as per ID. 2 small bowel obstruction/ileus, status post NG tube insertion. Abdominal pain improved, discontinued NG tube. Patient was again having ileus on 01/09/2017 and was placed back on NG tube. 3 paroxysmal atrial fibrillation currently in sinus rhythm: Patient is on anticoagulation with Apaxiban. 4 coronary artery disease with 50% lesion in the LAD 5 chronic lower extremities edema 6 schizophrenic disorder 7 hypertension 8 hyperlipidemia 9 generalized anxiety disorder 10 peripheral neuropathy 11 Type 2 diabetes mellitus 12 acute renal failure and tachycardia: Secondary to intravascular depletion from significant NG tube drainage which is expected to improve with IV fluids. 13 bronchial asthma not in acute exacerbation 13 shingles affecting the right chest area, improved. currently on Valtrex. For above-mentioned chronic medical problems patient will be continued on present medications. will monitor and titrate as needed.
[2017-01-11] MEDS: ZINC OXIDE 20% OINT 28.4 GM TUBE TOPICAL SCH ×2 (05:04→14:16)
[2017-01-11] MEDS: valACYclovir HCL 1,000 MG TABLET PO SCH ×3 (06:36→21:36)
[2017-01-11] MEDS: METOCLOPRAMIDE 5 MG/ML 2 ML VIAL IVP SCH ×3 (06:37→18:57)
[2017-01-11 06:59] LABS: Glucose,Whole Blood 89 mg/dL (75-99)
[2017-01-11] MEDS: IPRATROPIUM-ALBUTEROL 3 ML NEB INHALATION SCH ×4 (07:18→19:28)
[2017-01-11] MEDS: BUDESONIDE 0.5 MG/2 ML NEBU INHALATION SCH ×2 (07:18→19:28)
[2017-01-11] MEDS: PIPERACILLIN-TAZOBACTAM 3.375 GM in DEXTROSE/WATER 1 50ML.BAG IVPB SCH ×2 (09:07→16:45)
[2017-01-11] MEDS: ASPIRIN 81 MG PO SCH (10:10)
[2017-01-11] MEDS: VIT A,C & E-LUTEIN-MINERALS 1 EACH TAB PO SCH (10:11)
[2017-01-11] MEDS: CHOLECALCIFEROL 1,000 UNIT TAB PO SCH (10:11)
[2017-01-11] MEDS: LORATADINE 10 MG TAB PO SCH (10:11)
[2017-01-11] MEDS: GABAPENTIN 300 MG CAP PO SCH ×2 (10:11→16:49)
[2017-01-11] MEDS: SENNOSIDES 8.6 MG TAB PO SCH ×2 (10:11→16:49)
[2017-01-11] MEDS: CITALOPRAM HYDROBROMIDE 20 MG TAB PO SCH (10:11)
[2017-01-11] MEDS: METOPROLOL TARTRATE 25 MG TAB PO SCH ×3 (10:11→21:35)
[2017-01-11] MEDS: POTASSIUM CHLORIDE ER 10 MEQ TAB.ER.PRT PO SCH (10:12)
[2017-01-11] MEDS: APIXABAN 2.5 MG TABLET PO SCH ×2 (10:12→21:35)
[2017-01-11] MEDS: DIGOXIN 125 MCG TAB PO SCH (10:12)
[2017-01-11] MEDS: PANTOPRAZOLE 40 MG/10 ML VIAL IVP SCH (10:12)
[2017-01-11] MEDS: ONDANSETRON 4 MG/2 ML VIAL IVP PRN (10:20)
--- NOTE | 2017-01-11 11:21 | P.PN ---
Subjective Interval history: 01/06/17- this patient is seen and examined and evaluated today 01/06/2017 on the selective care unit. Patient is resting up in bed on 2 L of supplemental oxygen. She has intermittent shortness of breath with a cough and congestion. She did have her NG tube removed yesterday. She has been tolerating food and fluids this morning. Is any abdominal pain at this time. Wound culture has been completed and shows Ingrid albicans, enterococcus faecalis and staphylococcal aureus. Urine, sputum and blood cultures have been negative so far. She has been afebrile no further complaints. 01/07/17- patient underwent a barium swallow study this morning those results are not readily available at this time. Apparently the patient did fail her swallow evaluation at bedside yesterday. She was made nothing by mouth after failing the evening of impending barium swallow study. Currently the patient's resting up in bed on 3 LPM, of supplemental oxygen. Continues to have shortness of breath with activity or exertion. Continues with cough and congestion however has not brought up any sputum. 01/08/17- patient is being seen and examined and evaluated today on rounds. Currently she is resting up in bed on 3 L of nasal cannula. She continues to have shortness of breath with activity and exertion. She states her cough and congestion has significantly improved. Patient is being worked up for discharge planning back to rehab facility in the near future. Barium swallow study from yesterday was negative. Labs and reports have been reviewed. She is afebrile no overnight events. Continues to have some discomfort to the wound areas. 01/09/17- patient has been seen and examined and evaluated today on the fourth floor. Currently she is resting up in bed on 3 L of supplemental oxygen. Has minimal cough or congestion. Continues with shortness of breath with exertion. She did have a large bowel movement yesterday evening per the nurse. He has a good appetite and has been tolerating her diet well. She is afebrile, no overnight events. 01/10/17- patient is being seen examined and evaluated today on the fourth floor. Patient did have an abdominal x-ray last night and again this morning. Abdominal x-ray results shows ileus versus obstruction. An NG tube has also been placed and has had significant coffee ground output. Patient states she does feel slightly bloated. She continues to have shortness of breath with exertion. Does complain of some diffuse abdominal discomfort today. 01/11/17- patient is being seen examined and evaluated today on the floor. She continues to have an NG tube with coffee-ground fluid obtained. She is also being seen by surgical services. She continues to feel bloated in her abdomen. Continues with diffuse abdominal discomfort. Shortness of breath with exertion. She does have a cough denies any congestion or sputum production. Afebrile, no overnight events no further complaints. Objective - Vital Signs Vital signs: Vital Signs Temp 97.4 F L 01/11/17 07:00 Pulse 86 01/11/17 11:00 Resp 16 01/11/17 07:00 BP 118/56 01/11/17 07:00 Pulse Ox 94 L 01/11/17 07:00 Intake & Output 01/10/17 01/11/17 01/11/17 18:59 06:59 18:59 Intake Total 0 Output Total 600 Balance -600 0 Intake: Oral 0 Output: Gastric Drainage 600 Other: Voiding Method Incontinent Incontinent # Voids 1 2 - Exam GENERAL EXAM: Alert, active, comfortable in no apparent distress. HEAD: Normocephalic. EYES: Normal reaction of pupils, equal size. NOSE: Clear with pink turbinates. NG tube present with dark coffee ground output THROAT: No erythema or exudates. NECK: No masses, no JVD. CHEST: No chest wall deformity. LUNGS: Equal air entry slightly coarse with no crackles, wheeze, rhonchi or dullness. Bases diminished CVS: S1 and S2 normal with no audible mumurs, regular rhythm. ABDOMEN: No hepatosplenomegaly, normal bowel sounds, no guarding or rigidity. EXTREMITIES: No edema noted, pedal pulses palpable. Patient does have a left axillary early dressing with packing clean dry and intact. Tender SKIN: No rashes, shingles rash on right neck and anterior chest wall. Tender CENTRAL NERVOUS SYSTEM: No focal deficits, tone is normal in all 4 extremities. - Labs CBC & Chem 7: 01/10/17 07:46 01/10/17 07:46 Assessment and Plan Plan: Assessment Left axillary abscess, status post I&D with surrounding cellulitis Small bowel obstruction/ileus Obstructive sleep apnea Paroxysmal atrial fibrillation, currently sinus rhythm Coronary artery disease Chronic lower extremity edema Schizophrenic disorder Hypertension Generalized anxiety disorder Peripheral neuropathy Diabetes mellitus type 2 Acute renal failure secondary to intravascular depletion Shingles affecting the right chest area, improved Plan Discharge is currently being held at this time due to ileus/obstruction. Discharge planning in place to go back to extended care facility when stable. Labs and reports have been reviewed. Medications have been reviewed and will be continued as ordered. Appreciate consults and recommendations. Continue with pulmonary hygiene, coughing and deep breathing exercises, and supportive care. Supplemental oxygen to maintain oxygen saturations of 92% or better. Continue nebulizer treatments. GI and DVT prophylaxis. We will continue to monitor labs/results and adjust treatment as necessary. Further recommendations pending. I performed an examination of the patient and discussed their management with the nurse practitioner. I have reviewed the nurse practitioner's note and agree with the documented findings and plan of care.
--- NOTE | 2017-01-11 11:54 | CDI ---
In responding to this query, please exercise your independent professional judgment. The [facility] Coding Staff and Clinical Documentation Specialists appreciate your assistance in clarifying documentation, maintaining compliance with coding guidelines, accurately documenting patients condition and capturing severity of illness. The fact that a question is asked does not imply that any particular answer is desired or expected. Communication forms are a method of clarifying documentation and are not made part of the Legal Health Record. Thank you in advance for your clarification. Last Revision, March 2015 Donta Brian [address] [place] [address] Documentation Clarification Form Date: 01/11/2017 11:46:00 AM From: Michaelle Shipley CCS, CCDS Admit Date: 01/08/2017 4:27:00 PM Patient Name: Arjun Barker Visit Number: [id number] Discharge Date: Dr. Jc Hoff: 78 yo male presented with near syncopal episode and new onset of paroxysmal atrial fibrillation and atrial flutter. Documented acute on chronic renal failure with worsening kidney function, unclear etiology. History/Risk Factors: Hypertension with left ventricular hypertrophy, moderate pulmonary hypertension and diastolic CHF. Also history of chronic hypoxic respiratory failure requiring 24/7 home O2. Admission BUN: 46, Admission Creatinine: 2.61, GFR: 24 Clinical Indicators: Presentation as above. Treatment: Heparin & Cardizem drips, minimal IV hydration, O2 4Lnc, pending cardiac ablation. In order to capture the severity of condition, please clarify if the condition signifies: CKD Stage 1 (GFR > 90) CKD Stage 2 (GFR 60-89) CKD Stage 3 (GFR 30-59) CKD Stage 4 (GFR 15-29) CKD Stage 5 (GFR <15) ESRD Unable to determine Other condition, please specify Please document in your progress notes and discharge summary in order to capture severity of illness and risk of mortality. Include clinical findings that support your diagnosis. FYI: Press F11 to launch patient chart. KRYSTYNA
[2017-01-11 12:32] LABS: Glucose,Whole Blood 76 mg/dL (75-99)
--- NOTE | 2017-01-11 14:13 | P.PN ---
<Donna Barton M - Last Filed: 01/11/17 13:59> Subjective 61-year-old female being seen this morning on rounds. Currently resting in bed. The nasal gastric tube has been clamped. Patient states there is less abdominal pain this morning. Patient had an episode the day before of nausea vomiting. Patient states the symptoms have improved. Stool studies were negative for evidence of C. diff. Patients being treated for resolving ileus. Patient initially was followed by surgical service for an incision and drainage of an abscess in the left axillary area. Patient currently is being followed by infectious disease. The abscess in the left axillary showed no significant cellulitis this morning packing is in place moderate amount of drainage serous noted on the 4 x 4 over the packing Objective - Vital Signs Vital signs: Vital Signs Temp 97.4 F L 01/11/17 07:00 Pulse 86 01/11/17 11:00 Resp 16 01/11/17 08:00 BP 118/56 01/11/17 07:00 Pulse Ox 94 L 01/11/17 07:00 Intake & Output 01/10/17 01/11/17 01/11/17 18:59 06:59 18:59 Intake Total 0 Output Total 600 Balance -600 0 Intake: Oral 0 Output: Gastric Drainage 600 Other: Voiding Method Incontinent Incontinent Incontinent # Voids 1 2 - Exam Physical exam 61-year-old female sitting up in bed nasal gastric tube clamped is pleasant oriented 3 Lungs essentially clear adequate air movement Heart S1 and S2 audible regular denying chest pain Abdomen obese soft bowel tones present no stool incontinently urine no reports of nausea vomiting no emesis Extremity trace pedal edema bilaterally - Labs CBC & Chem 7: 01/10/17 07:46 01/10/17 07:46 Assessment and Plan Plan: Impression Episode this admission nausea vomiting x-ray shows evidence of an ileus Loose stools with stool studies negative for C. diff Episode of diffuse abdominal discomfort suspect due to an ileus Schizoaffective schizophrenia Present on admission varicella zoster Present on admission abscess left axillary Moderate protein calorie malnutrition Status post incision and drainage left axillary abscess wound VAC on hold Plan Repeat an abdominal x-ray in the morning Continue the nasal gastric tube keep npo Continue with the Reglan 5 mg IV every 6 scheduled DVT and GI prophylaxis Further surgical recommendations pending Donna Barton dictating for dr pineda covering for dr haley The above impression and plan of care have been discussed and directed by signing physician. Donna Barton nurse practitioner acting as scribe for signing physician. <Vernon Pineda - Last Filed: 01/11/17 18:39> Objective - Vital Signs Vital signs: Vital Signs Temp 97 F L 01/11/17 15:00 Pulse 84 01/11/17 15:00 Resp 16 01/11/17 16:00 BP 99/44 01/11/17 15:00 Pulse Ox 98 01/11/17 15:00 Intake & Output 01/10/17 01/11/17 01/11/17 18:59 06:59 18:59 Intake Total 0 Output Total 600 Balance -600 0 Intake: Oral 0 Output: Gastric Drainage 600 Other: Voiding Method Incontinent Incontinent Incontinent # Voids 1 2 3 - Labs CBC & Chem 7: 01/10/17 07:46 01/10/17 07:46 Assessment and Plan Plan: Agree with above. Patient appears comfortable. She is passing flatus. Denies any bowel movement. Will review abdominal x-rays tomorrow and if improved plan discontinuation of nasogastric tube with initiation of diet.
[2017-01-11] MEDS: CYANOCOBALAMIN 500 MCG TAB PO SCH (14:15)
[2017-01-11] MEDS: DEXTROSE 5%-0.9% NACL 1,000 ML IV SCH (14:16)
[2017-01-11] MEDS: FERROUS SULFATE 325 MG TAB PO SCH (16:48)
[2017-01-11 18:10] LABS: Glucose,Whole Blood 76 mg/dL (75-99)
[2017-01-11] MEDS: QUEtiapine 400 MG TAB PO SCH (21:35)
[2017-01-11] MEDS: ATORVASTATIN 10 MG TAB PO SCH (21:35)
[2017-01-11] MEDS: HYDROmorphone 1 MG/ML 1 ML SYRINGE IVP PRN (21:41)
--- NOTE | 2017-01-11 22:52 | P.PN ---
Subjective Principal diagnosis: Pain to right neck 61-year-old female presents to the emergency center from the [facility] care facility where she has been receiving care for her significant abscess to her left axillary area status post incision and drainage. Apparently she started to have change in the drainage despite the wound VAC. She is having some increasing discomfort. She was becoming weak and tired. She then developed a significant rash that started at the base of the neck to the right side. It was a blistering rash that was extremely painful. She believes she had a low-grade fever. Because of her acute changes status she was sent to the emergency center and was admitted. With evidence of the significant rash and the ongoing infection to the left axillary area the infectious diseases consultation was requested. At this time she seems a bit more awake and alert than admission. She is able to relate to some pain at the left axillary area but it is not severe at this time. The wound VAC was minimally uncomfortable. She relates that her great amount of pain is to the right neck where she has the blistering rash. Does not believe she's had a high-grade fever or chills. Feels quite poorly overall. She's had some nausea without emesis. She denying significant abdominal pain at this time. She is not having significant cough or sputum production no hemoptysis. Developed ileus and an NG tube was placed. Denies much abdominal pain today. The axillary ulceration remains problematic. it will be unpacked and repacked today. Objective - Vital Signs Vital signs: Vital Signs Temp 97 F L 01/11/17 15:00 Pulse 84 01/11/17 15:00 Resp 16 01/11/17 16:00 BP 99/44 01/11/17 15:00 Pulse Ox 98 01/11/17 15:00 Intake & Output 01/11/17 01/11/17 01/12/17 06:59 18:59 06:59 Intake Total 0 Output Total 50 Balance 0 -50 Intake: Oral 0 Output: Gastric Drainage 50 Other: Voiding Method Incontinent Incontinent # Voids 2 3 - Exam 61-year-old woman who appears older than her stated age. More interactive than during her last hospital stay. But his still compromised. HEENT: Anicteric conjunctiva are pink and moist nasal mucosa grossly intact without significant lesions, there is no thrush. Oral mucosa is dry Neck: The neck is supple without significant lymphadenopathy or thyromegaly. Lungs: Good bilateral air entry without significant crackles or wheezing. There is no significant bronchial sounds. There is no egophony or dullness. Heart: Regular rate and rhythm with an audible S1-S2, no S3 no S4. There is no significant murmur click or rub, PMI was nondisplaced. Abdomen: Positive bowel sounds soft and nontender without palpable masses or organomegaly. There was no guarding or rebound. Extremities: The upper extremities have excellent pulses they are symmetric, no significant petechiae or telangiectasia. No splinter hemorrhages were noted. The left axillary area is evidence of site of the incision and drainage. The area is cleansed today is packed with rolled gauze. The entire 2 inch gauze packing of the cavity. Given the odor and lack of improvement will change the dressing products to Dakin's Skin: The VZV rash has resolved to the right neck area. Neuro: Arousable did interaction to some simple questions. - Labs CBC & Chem 7: 01/10/17 07:46 01/10/17 07:46 Assessment and Plan (1) Varicella zoster Status: Acute (2) Schizo affective schizophrenia Status: Acute (3) Abscess of axilla, left Narrative/Plan: 61-year-old female presents from the extended care facility because of onset of severe rash to her right neck as well as low-grade fever and worsening overall status. Patient is evidence of the varicella-zoster of the right neck and upper chest. Has now resolved. The patient has evidence of the extensive axillary abscesses status post incision and drainage. Site is and recultured. Continue antibiotic therapy at this time. Local wound care will be with Dakin's packed into the large axillary ulceration utilizing the 2 inch roll gauze. Negative pressure therapy is on hold due to the ongoing infection at this site. Antibiotic therapy with Zosyn will be utilized with covers for the MSSA, strep in the anaerobic gram-negative bacilli that were isolated. Enterococcus also isolated for which the piperacillin will give adequate coverage . She does have moderate protein calorie malnutrition and will need further improved nutrition to help her healing. It appears that her psychiatric status is stable. Status: Acute (4) MSSA (methicillin susceptible Staphylococcus aureus) infection Status: Acute
[2017-01-12] MEDS: METOCLOPRAMIDE 5 MG/ML 2 ML VIAL IVP SCH ×4 (01:17→17:15)
[2017-01-12] MEDS: PIPERACILLIN-TAZOBACTAM 3.375 GM in DEXTROSE/WATER 1 50ML.BAG IVPB SCH ×3 (01:18→15:30)
[2017-01-12 01:51] LABS: Glucose,Whole Blood 80 mg/dL (75-99)
[2017-01-12] MEDS ORDERED: DEXTROSE 4 GM CHEWABLE ONE ×2 (06:16→12:48)
[2017-01-12] MEDS: valACYclovir HCL 1,000 MG TABLET PO SCH ×3 (06:18→22:02)
[2017-01-12 06:20] LABS: Glucose,Whole Blood 67 mg/dL (75-99)
[2017-01-12] MEDS: ZINC OXIDE 20% OINT 28.4 GM TUBE TOPICAL SCH ×2 (06:20→11:12)
[2017-01-12 07:39] LABS: Glucose,Whole Blood 75 mg/dL (75-99)
[2017-01-12 07:39] LABS: Glucose,Whole Blood 78 mg/dL (75-99)
[2017-01-12] MEDS: IPRATROPIUM-ALBUTEROL 3 ML NEB INHALATION SCH ×4 (07:50→19:35)
[2017-01-12] MEDS: BUDESONIDE 0.5 MG/2 ML NEBU INHALATION SCH ×2 (07:50→19:35)
[2017-01-12] MEDS: HYDROmorphone 1 MG/ML 1 ML SYRINGE IVP PRN (08:13)
[2017-01-12] MEDS: GABAPENTIN 300 MG CAP PO SCH ×2 (08:13→17:11)
[2017-01-12] MEDS: PANTOPRAZOLE 40 MG/10 ML VIAL IVP SCH (08:13)
[2017-01-12] MEDS: DIGOXIN 125 MCG TAB PO SCH (08:14)
[2017-01-12] MEDS: POTASSIUM CHLORIDE ER 10 MEQ TAB.ER.PRT PO SCH (08:14)
[2017-01-12] MEDS: CITALOPRAM HYDROBROMIDE 20 MG TAB PO SCH (08:14)
[2017-01-12] MEDS: APIXABAN 2.5 MG TABLET PO SCH (08:14)
[2017-01-12] MEDS: METOPROLOL TARTRATE 25 MG TAB PO SCH ×3 (08:14→22:02)
[2017-01-12] MEDS: LORATADINE 10 MG TAB PO SCH (08:15)
[2017-01-12] MEDS: VIT A,C & E-LUTEIN-MINERALS 1 EACH TAB PO SCH (08:15)
[2017-01-12] MEDS: ASPIRIN 81 MG PO SCH (08:15)
[2017-01-12] MEDS: DEXTROSE 5%-0.9% NACL 1,000 ML IV SCH ×6 (08:15→17:11)
[2017-01-12] MEDS: SENNOSIDES 8.6 MG TAB PO SCH ×2 (08:15→17:11)
[2017-01-12] MEDS: CHOLECALCIFEROL 1,000 UNIT TAB PO SCH (08:15)
[2017-01-12 08:18] LABS: Basophils % (A) 1 %; CH 32.1; CHCM 30.8; Eosinophils # (A) 0.1 k/uL (0-0.7); Eosinophils % (A) 1 %; HCT 23.1 % (34.0-46.0); HDW 2.76; Hypochromasia Slight; Luc # (Auto) 0.14; Luc % (Auto) 2; Lymphocytes # (A) 1.6 k/uL (1.0-4.8); Lymphocytes % (A) 22 %; MCH 31.2 pg (25.0-35.0); MCHC 29.8 g/dL (31.0-37.0); MCV 104.6 fL (80.0-100.0); Macrocytosis Slight; Mean Platelet Volume 7.8; Monocytes # (A) 0.3 k/uL (0-1.0); Monocytes % (A) 5 %; Neutrophils # (A) 5.1 k/uL (1.3-7.7); Neutrophils % (A) 70 %; RBC 2.21 m/uL (3.80-5.40); RDW 15.5 % (11.5-15.5); WBC 7.3 k/uL (3.8-10.6); WBC (Perox) 7.64
[2017-01-12 08:21] LABS: HGB 6.9 gm/dL (11.4-16.0)
--- NOTE | 2017-01-12 09:49 | P.PN ---
Subjective Principal diagnosis: Patient seen and evaluated exam and clinically patient is not much change breathing. Denies any chest pain still of issues associated abdominal discomfort any ileus-like changes general surgery is following from [facility] standpoint cough congestion or shortness of breath is stable and improved Interval history: 01/06/17- this patient is seen and examined and evaluated today 01/06/2017 on the selective care unit. Patient is resting up in bed on 2 L of supplemental oxygen. She has intermittent shortness of breath with a cough and congestion. She did have her NG tube removed yesterday. She has been tolerating food and fluids this morning. Is any abdominal pain at this time. Wound culture has been completed and shows Ingrid albicans, enterococcus faecalis and staphylococcal aureus. Urine, sputum and blood cultures have been negative so far. She has been afebrile no further complaints. 01/07/17- patient underwent a barium swallow study this morning those results are not readily available at this time. Apparently the patient did fail her swallow evaluation at bedside yesterday. She was made nothing by mouth after failing the evening of impending barium swallow study. Currently the patient's resting up in bed on 3 LPM, of supplemental oxygen. Continues to have shortness of breath with activity or exertion. Continues with cough and congestion however has not brought up any sputum. 01/08/17- patient is being seen and examined and evaluated today on rounds. Currently she is resting up in bed on 3 L of nasal cannula. She continues to have shortness of breath with activity and exertion. She states her cough and congestion has significantly improved. Patient is being worked up for discharge planning back to rehab facility in the near future. Barium swallow study from yesterday was negative. Labs and reports have been reviewed. She is afebrile no overnight events. Continues to have some discomfort to the wound areas. 01/09/17- patient has been seen and examined and evaluated today on the fourth floor. Currently she is resting up in bed on 3 L of supplemental oxygen. Has minimal cough or congestion. Continues with shortness of breath with exertion. She did have a large bowel movement yesterday evening per the nurse. He has a good appetite and has been tolerating her diet well. She is afebrile, no overnight events. 01/10/17- patient is being seen examined and evaluated today on the fourth floor. Patient did have an abdominal x-ray last night and again this morning. Abdominal x-ray results shows ileus versus obstruction. An NG tube has also been placed and has had significant coffee ground output. Patient states she does feel slightly bloated. She continues to have shortness of breath with exertion. Does complain of some diffuse abdominal discomfort today. 01/11/17- patient is being seen examined and evaluated today on the floor. She continues to have an NG tube with coffee-ground fluid obtained. She is also being seen by surgical services. She continues to feel bloated in her abdomen. Continues with diffuse abdominal discomfort. Shortness of breath with exertion. She does have a cough denies any congestion or sputum production. Afebrile, no overnight events no further complaints. Objective - Vital Signs Vital signs: Vital Signs Temp 97.7 F 01/12/17 07:00 Pulse 87 01/12/17 08:10 Resp 16 01/12/17 07:00 BP 104/52 01/12/17 07:00 Pulse Ox 96 01/12/17 07:00 Intake & Output 01/11/17 01/12/17 01/12/17 18:59 06:59 18:59 Intake Total 0 Output Total 50 Balance -50 Intake: Oral 0 Output: Gastric Drainage 50 Other: Voiding Method Incontinent Incontinent # Voids 3 4 1 # Bowel Movements 1 - Exam GENERAL EXAM: Alert, active, comfortable in no apparent distress. HEAD: Normocephalic. EYES: Normal reaction of pupils, equal size. NOSE: Clear with pink turbinates. NG tube present with dark coffee ground output THROAT: No erythema or exudates. NECK: No masses, no JVD. CHEST: No chest wall deformity. LUNGS: Equal air entry slightly coarse with no crackles, wheeze, rhonchi or dullness. Bases diminished CVS: S1 and S2 normal with no audible mumurs, regular rhythm. ABDOMEN: No hepatosplenomegaly, normal bowel sounds, no guarding or rigidity. EXTREMITIES: No edema noted, pedal pulses palpable. Patient does have a left axillary early dressing with packing clean dry and intact. Tender SKIN: No rashes, shingles rash on right neck and anterior chest wall. Tender CENTRAL NERVOUS SYSTEM: No focal deficits, tone is normal in all 4 extremities. - Labs CBC & Chem 7: 01/12/17 07:37 01/10/17 07:46 Labs: Abnormal Lab Results - Last 24 Hours (Table) 01/12/17 01/12/17 Range/Units 06:12 07:37 RBC 2.21 L (3.80-5.40) m/uL Hgb 6.9 L* (11.4-16.0) gm/dL Hct 23.1 L (34.0-46.0) % MCV 104.6 H (80.0-100.0) fL MCHC 29.8 L (31.0-37.0) g/dL Plt Count 471 H (150-450) k/uL POC Glucose (mg/dL) 67 L (75-99) mg/dL Assessment and Plan Plan: Assessment Left axillary abscess, status post I&D with surrounding cellulitis Small bowel obstruction/ileus Obstructive sleep apnea Paroxysmal atrial fibrillation, currently sinus rhythm Coronary artery disease Chronic lower extremity edema Schizophrenic disorder Hypertension Generalized anxiety disorder Peripheral neuropathy Diabetes mellitus type 2 Acute renal failure secondary to intravascular depletion Shingles affecting the right chest area, improved Plan Discharge is currently being held at this time due to ileus/obstruction. Discharge planning in place to go back to extended care facility when stable. Labs and reports have been reviewed. Medications have been reviewed and will be continued as ordered. Appreciate consults and recommendations. Continue with pulmonary hygiene, coughing and deep breathing exercises, and supportive care. Supplemental oxygen to maintain oxygen saturations of 92% or better. Continue nebulizer treatments. GI and DVT prophylaxis. We will continue to monitor labs/results and adjust treatment as necessary. Further recommendations pending. Time with Patient: Greater than 30
--- NOTE | 2017-01-12 10:42 | XR ---
2 view abdomen HISTORY: Follow-up ileus, NG tube 2 views of the abdomen submitted on 4 images and correlated to prior abdomen film 01/10/2017, CT 2016 There is an NG tube coiled within the stomach. Contrast material is present within the colon, surgica l clips are present right upper quadrant. Retrocardiac density is present with some air bronchograms, days or bandlike area of increased attenuation also present at the right lung base. There is a PICC line present, distal tip is not seen. No pneumoperitoneum is evident. Abnormal attenuation in the lef t axilla compatible with wound. IMPRESSION: Correlate to exclude basilar pneumonia. Bowel obstruction is not evident. Contrast is cou rsing to the level of the rectum. Additional findings above.
[2017-01-12] MEDS: SODIUM HYPOCHLORITE 0.5% 480 ML BOT MISCELLANE SCH ×2 (10:57→22:03)
--- NOTE | 2017-01-12 11:41 | P.PN ---
<Donna Barton - Last Filed: 01/12/17 11:33> Subjective Female being seen by surgical service. Patient is status post left axillary abscess incision and drainage with surrounding cellulitis. Patient developed an ileus currently has a nasal gastric tube in place clamped. The plan is to start TPN for nutritional support. Abdomen is soft incontinent of urine no stool Dressing to the left axillary moderate amount of serous drainage noted packing into the left axillary area. The repeat chest x-ray this morning show bowel obstruction is not evident. Correlate to exclude basilar pneumonia Objective - Vital Signs Vital signs: Vital Signs Temp 97.7 F 01/12/17 07:00 Pulse 87 01/12/17 08:10 Resp 16 01/12/17 08:00 BP 104/52 01/12/17 07:00 Pulse Ox 96 01/12/17 07:00 Intake & Output 01/11/17 01/12/17 01/12/17 18:59 06:59 18:59 Intake Total 0 Output Total 50 Balance -50 Weight 99.337 kg Intake: Oral 0 Output: Gastric Drainage 50 Other: Voiding Method Incontinent Incontinent Incontinent # Voids 3 4 1 # Bowel Movements 1 - Exam Physical exam 61-year-old female resting in bed with nasal gastric tube clamped awake alert currently denying nausea vomiting Lungs anterior essentially clear with adequate air movement nasal cannula 3 L Heart S1-S2 audible and regular Abdomen obese soft a few hypoactive bowel tones noted nasal gastric tube clamped no facial grimacing with palpitation to the abdominal wall no nausea incontinent a urine Extremities bilateral pedal edema noted - Labs CBC & Chem 7: 01/12/17 07:37 01/10/17 07:46 Labs: Abnormal Lab Results - Last 24 Hours (Table) 01/12/17 01/12/17 Range/Units 06:12 07:37 RBC 2.21 L (3.80-5.40) m/uL Hgb 6.9 L* (11.4-16.0) gm/dL Hct 23.1 L (34.0-46.0) % MCV 104.6 H (80.0-100.0) fL MCHC 29.8 L (31.0-37.0) g/dL Plt Count 471 H (150-450) k/uL POC Glucose (mg/dL) 67 L (75-99) mg/dL Assessment and Plan Plan: Impression Episode this admission nausea vomiting x-ray shows evidence of an ileus Loose stools with stool studies negative for C. diff Episode of diffuse abdominal discomfort suspect due to an ileus Schizoaffective schizophrenia Present on admission varicella zoster Present on admission abscess left axillary Moderate protein calorie malnutrition Status post incision and drainage left axillary abscess wound VAC on hold Repeat two-view of the abdomen done on the 12 of January bowel obstruction is not evident Plan We'll start TPN per PICC line for nutritional support did discuss with the attending Continue the nasal gastric tube keep clamped keep npo Continue with the Reglan 5 mg IV every 6 scheduled DVT and GI prophylaxis Further surgical recommendations pending IV antibiotics per infectious diseases recommendations Dr. Elmore following Continue further recommendations by pulmonary service Donna Barton dictating for dr pineda covering for dr haley The above impression and plan of care have been discussed and directed by signing physician. Donna Barton nurse practitioner acting as scribe for signing physician. <Vernon Pineda - Last Filed: 01/12/17 12:49> Objective - Vital Signs Vital signs: Vital Signs Temp 97.7 F 01/12/17 07:00 Pulse 88 01/12/17 11:46 Resp 16 01/12/17 08:00 BP 104/52 01/12/17 07:00 Pulse Ox 96 01/12/17 07:00 Intake & Output 01/11/17 01/12/17 01/12/17 18:59 06:59 18:59 Intake Total 0 Output Total 50 Balance -50 Weight 99.337 kg Intake: Oral 0 Output: Gastric Drainage 50 Other: Voiding Method Incontinent Incontinent Incontinent # Voids 3 4 1 # Bowel Movements 1 - Labs CBC & Chem 7: 01/12/17 07:37 01/10/17 07:46 Labs: Abnormal Lab Results - Last 24 Hours (Table) 01/12/17 01/12/17 01/12/17 Range/Units 06:12 07:37 11:58 RBC 2.21 L (3.80-5.40) m/uL Hgb 6.9 L* (11.4-16.0) gm/dL Hct 23.1 L (34.0-46.0) % MCV 104.6 H (80.0-100.0) fL MCHC 29.8 L (31.0-37.0) g/dL Plt Count 471 H (150-450) k/uL POC Glucose (mg/dL) 67 L 66 L (75-99) mg/dL Assessment and Plan Plan: Patient seems to be doing well. X-rays nonspecific. Denies abdominal pain. She states that she is hungry. We'll remove the nasogastric tube at this point. Begin a liquid diet. We'll follow with you.
[2017-01-12 11:59] LABS: Glucose,Whole Blood 66 mg/dL (75-99)
[2017-01-12] MEDS ORDERED: DEXTROSE 4 GM CHEWABLE PO STA (12:09)
[2017-01-12 13:02] LABS: Glucose,Whole Blood 78 mg/dL (75-99)
[2017-01-12 15:58] LABS: Ionized Calcium 5.3 mg/dL (4.5-5.3)
[2017-01-12 16:14] LABS: Anion Gap 7 mmol/L; Blood Urea Nitrogen 16 mg/dL (7-17); Calcium 8.4 mg/dL (8.4-10.2); Carbon Dioxide 25 mmol/L (22-30); Chloride 109 mmol/L (98-107); Glucose 71 mg/dL (74-99); Magnesium 1.5 mg/dL (1.6-2.3); Non-African American GFR(MDRD) >60 (>60 ml/min/1.73 sqM); Phosphorus 3.7 mg/dL (2.5-4.5); Potassium 3.5 mmol/L (3.5-5.1); Sodium 141 mmol/L (137-145)
[2017-01-12] MEDS: MAGNESIUM SULFATE-D5W PMX 1 GM in DEXTROSE/WATER 1 100ML.BAG IVPB SCH ×2 (17:10→18:12)
[2017-01-12] MEDS: FERROUS SULFATE 325 MG TAB PO SCH (17:11)
[2017-01-12 17:36] LABS: Glucose,Whole Blood 144 mg/dL (75-99)
--- NOTE | 2017-01-12 17:39 | P.PN ---
Progress Note - Text DATE OF SERVICE: 01/11/2017 PRESENTING COMPLAINT: Tired INTERVAL HISTORY: 61-year-old female who was sent from the [facility], developed shingles in her neck left upper chest area and on the right somewhat painful vesicles. Patient had an extensive hospital stay not too long ago she developed a large axilla abscess secondary to an insect bite. At that time incision and drainage was completed, culture positive for Peptostreptococcus and MSSA, patient was started on Cipro per Dr. Elmore of infectious disease. There was also a wound VAC in place. Wound VAC was discontinued due to increased drainage concerns for infection. Patient developed a small bowel obstruction versus ileus on , NG tube placed, subsequently removed on 01/06/2017 and started on a liquid diet advance as tolerated. 01/09/2017 patient developed abdominal discomfort and on 01/10/2017 patient was found to have a second ileus NG tube replaced at that time. 01/11/2017: Patient seen in follow-up, no acute overnight events. NG tube remains in place patient complains of abdominal pain, not passing any gas, remains nothing by mouth. Left axilla continues to pain the patient, she complains that it smells. REVIEW OF SYSTEMS: Done for constitutional ,cardiovascular, GI, pulmonary with relevant findings as above. CURRENT MEDICATIONS DuoNeb, Eliquis, aspirin, Lipitor, Pulmicort, Tums, Protonix, piperacillin and tazobactam IV, Seroquel, PHYSICAL EXAM VITAL SIGNS: Temperature 97.7, pulse 79, respiratory rate 16, blood pressure 104/52, oxygen saturation 96% on 3 L nasal cannula. GENERAL APPEARANCE: Lying in bed, not in distress. EYES: Pupils equal. Conjunctiva normal. NECK: JVD not raised. Mass not palpable. RESPIRATORY: Respiratory effort normal. Lungs diminished with occasional scattered rhonchi to auscultation. CARDIOVASCULAR: First and second sounds normal. No edema. ABDOMEN: Soft. Liver and spleen not palpable. No tenderness. No mass palpable. PSYCHIATRY: Alert and oriented x3. Mood and affect normal. INTEGUMENT: Left axilla with dressing in place, Dakin solution wet-to-dry dressing utilized. Left upper neck and chest area vesicles healed. INVESTIGATIONS: Accu-Cheks noted ASSESSMENT: -Herpes zoster type II in the neck and upper chest wall area, improving -Unspecified open wound of left axilla, status post incision and drainage, wound VAC placement, wound VAC removal, slow to respond -Coronary artery disease with nonobstructive 50% LAD lesion -Gastroesophageal reflux disease. -Essential hypertension. -Hyperlipidemia. -Metabolic alkalosis, resolved -Chronic tardive dyskinesia. -Schizoaffective disorder chronic. -Anxiety disorder not otherwise specified. -Peripheral neuropathy idiopathic. -CODE STATUS full code PLAN: Continue NG tube to low intermittent suction, evaluate ileus tomorrow with x- ray with possibility of NG tube being removed. Continue dressing changes and antibiotic therapy for left axilla infection. Plan of care discussed at the bedside with patient and she is agreeable. VETERINARY SURGERY TECHNOLOGIST statement: Patient was seen and examined by nurse practitioner Carlotta Ibarra and all elements of the case discussed with attending Dr. Elizabeth
--- NOTE | 2017-01-12 17:47 | P.PN ---
<Carlotta Ibarra - Last Filed: 01/12/17 17:42> Progress Note - Text DATE OF SERVICE: 01/12/2017 PRESENTING COMPLAINT: Tired INTERVAL HISTORY: 61-year-old female who was sent from the [facility], developed shingles in her neck left upper chest area and on the right somewhat painful vesicles. Patient had an extensive hospital stay not too long ago she developed a large axilla abscess secondary to an insect bite. At that time incision and drainage was completed, culture positive for Peptostreptococcus and MSSA, patient was started on Cipro per Dr. Elmore of infectious disease. There was also a wound VAC in place. Wound VAC was discontinued due to increased drainage concerns for infection. Patient developed a small bowel obstruction versus ileus on , NG tube placed, subsequently removed on 01/06/2017 and started on a liquid diet advance as tolerated. 01/09/2017 patient developed abdominal discomfort and on 01/10/2017 patient was found to have a second ileus NG tube replaced at that time. 01/12/2017: Patient seen in follow-up no acute overnight events. NG tube remains in place, patient states her abdominal pain is better today, passing some gas, remains nothing by mouth. Discussed with surgery nutritional support TPN to be added today. Left axilla pain improved, she doesn't like the smell of the Dakin solution. 01/11/2017: Patient seen in follow-up, no acute overnight events. NG tube remains in place patient complains of abdominal pain, not passing any gas, remains nothing by mouth. Left axilla continues to pain the patient, she complains that it smells. REVIEW OF SYSTEMS: Done for constitutional ,cardiovascular, GI, pulmonary with relevant findings as above. CURRENT MEDICATIONS DuoNeb, Eliquis, aspirin, Lipitor, Pulmicort, Tums, Protonix, piperacillin and tazobactam IV, Seroquel, PHYSICAL EXAM VITAL SIGNS: 97.7 temperature, pulse 79, respiratory rate 16, blood pressure 05/27/1950, oxygen saturation 96% on 3 L nasal cannula. GENERAL APPEARANCE: Lying in bed, not in distress. EYES: Pupils equal. Conjunctiva normal. NECK: JVD not raised. Mass not palpable. RESPIRATORY: Respiratory effort normal. Lungs diminished with some scattered rhonchi to auscultation. CARDIOVASCULAR: First and second sounds normal. Moderate edema. ABDOMEN: Soft. Liver and spleen not palpable. No tenderness. No mass palpable. PSYCHIATRY: Alert and oriented x3. Mood and affect normal. INTEGUMENT: Left axilla with dressing in place, Dakin solution wet-to-dry dressing utilized. Left upper neck and chest area vesicles healed. INVESTIGATIONS: Hemoglobin 6.9, Accu-Cheks noted ASSESSMENT: -Herpes zoster type II in the neck and upper chest wall area, improving -Unspecified open wound of left axilla, status post incision and drainage, wound VAC placement, wound VAC removal, slow to respond -Coronary artery disease with nonobstructive 50% LAD lesion -Gastroesophageal reflux disease. -Essential hypertension. -Hyperlipidemia. -Metabolic alkalosis, resolved -Chronic tardive dyskinesia. -Schizoaffective disorder chronic. -Anxiety disorder not otherwise specified. -Peripheral neuropathy idiopathic. -CODE STATUS full code PLAN: Add TPN to patient's regimen per surgery, Continue dressing changes and antibiotic therapy for left axilla infection. Discharge planning for the next 24 -48 hours Plan of care discussed at the bedside with patient and she is agreeable. TUBE BENDER statement: Patient was seen and examined by nurse practitioner Carlotta Ibarra and all elements of the case discussed with attending Dr. Elizabeth <Marvin Elizabeth - Last Filed: 01/12/17 22:57> Progress Note - Text Date of service 01/12/2017 Attending note: This patient was seen and examined by me. Discussed with my nurse practitioner Miss Ibarra. TPN started this morning. NG tube was taken out. Patient had a large bowel movement today. Had a small bowel last night. Feels better. Shingles pain is greatly improved On examination: Abdomen soft, decreased tenderness, pulses present, lungs-decreased breath sounds Assessment and plan: Acute bowel obstruction with improvement. NG tube is out. Started on ice chips. TPN started. Care discussed with the patient. Looks much better today.
[2017-01-12] MEDS ORDERED: MVI, ADULT NO.4 WITH VIT K 10 ML, TRACE (CONC-1ML/DOSE) 1 ML in AMINO ACID 5%-D25W+LYTE... IV ONE ×3 (18:00)
[2017-01-12 21:10] LABS: Glucose,Whole Blood 128 mg/dL (75-99)
[2017-01-12] MEDS: APIXABAN 5 MG TAB PO SCH (22:02)
[2017-01-12] MEDS: ATORVASTATIN 10 MG TAB PO SCH (22:03)
[2017-01-12] MEDS: QUEtiapine 400 MG TAB PO SCH (22:03)
[2017-01-13] MEDS: PIPERACILLIN-TAZOBACTAM 3.375 GM in DEXTROSE/WATER 1 50ML.BAG IVPB SCH ×3 (00:11→15:37)
[2017-01-13] MEDS: METOCLOPRAMIDE 5 MG/ML 2 ML VIAL IVP SCH ×4 (00:13→17:18)
[2017-01-13] MEDS: ZINC OXIDE 20% OINT 28.4 GM TUBE TOPICAL SCH ×2 (01:17→13:06)
[2017-01-13] MEDS: valACYclovir HCL 1,000 MG TABLET PO SCH ×3 (06:28→21:41)
[2017-01-13] MEDS: IPRATROPIUM-ALBUTEROL 3 ML NEB INHALATION SCH ×4 (07:23→20:01)
[2017-01-13] MEDS: BUDESONIDE 0.5 MG/2 ML NEBU INHALATION SCH ×2 (07:23→20:01)
[2017-01-13 07:34] LABS: Glucose,Whole Blood 144 mg/dL (75-99)
[2017-01-13] MEDS: SENNOSIDES 8.6 MG TAB PO SCH ×2 (07:48→17:08)
[2017-01-13] MEDS: HYDROmorphone 1 MG/ML 1 ML SYRINGE IVP PRN (07:56)
[2017-01-13] MEDS: FAT EMULSION 20% 250 ML in EMPTY BAG 1 BAG IV SCH (08:03)
[2017-01-13] MEDS: POTASSIUM CHLORIDE ER 10 MEQ TAB.ER.PRT PO SCH (08:11)
[2017-01-13] MEDS: METOPROLOL TARTRATE 25 MG TAB PO SCH ×3 (08:11→21:42)
[2017-01-13] MEDS: PANTOPRAZOLE 40 MG/10 ML VIAL IVP SCH (08:11)
[2017-01-13] MEDS: VIT A,C & E-LUTEIN-MINERALS 1 EACH TAB PO SCH (08:12)
[2017-01-13] MEDS: GABAPENTIN 300 MG CAP PO SCH ×2 (08:12→17:08)
[2017-01-13] MEDS: CITALOPRAM HYDROBROMIDE 20 MG TAB PO SCH (08:12)
[2017-01-13] MEDS: CHOLECALCIFEROL 1,000 UNIT TAB PO SCH (08:12)
[2017-01-13] MEDS: LORATADINE 10 MG TAB PO SCH (08:12)
[2017-01-13] MEDS: ASPIRIN 81 MG PO SCH (08:12)
[2017-01-13] MEDS: APIXABAN 5 MG TAB PO SCH ×2 (08:12→21:41)
[2017-01-13] MEDS: DIGOXIN 125 MCG TAB PO SCH (08:13)
[2017-01-13 08:35] LABS: Basophils % (A) 1 %; CH 32.2; CHCM 30.9; Eosinophils # (A) 0.1 k/uL (0-0.7); Eosinophils % (A) 1 %; HCT 25.9 % (34.0-46.0); HDW 2.84; HGB 7.8 gm/dL (11.4-16.0); Hypochromasia Moderate; Luc # (Auto) 0.13; Luc % (Auto) 2; Lymphocytes # (A) 2.1 k/uL (1.0-4.8); Lymphocytes % (A) 28 %; MCH 31.6 pg (25.0-35.0); MCHC 30.1 g/dL (31.0-37.0); MCV 104.8 fL (80.0-100.0); Macrocytosis Moderate; Mean Platelet Volume 7.4; Monocytes # (A) 0.3 k/uL (0-1.0); Monocytes % (A) 4 %; Neutrophils # (A) 4.9 k/uL (1.3-7.7); Neutrophils % (A) 65 %; RBC 2.47 m/uL (3.80-5.40); RDW 15.8 % (11.5-15.5); WBC 7.6 k/uL (3.8-10.6); WBC (Perox) 7.97
[2017-01-13 08:38] LABS: Ionized Calcium 5.1 mg/dL (4.5-5.3)
[2017-01-13 08:50] LABS: Anion Gap 4 mmol/L; Blood Urea Nitrogen 14 mg/dL (7-17); Calcium 8.3 mg/dL (8.4-10.2); Carbon Dioxide 27 mmol/L (22-30); Chloride 107 mmol/L (98-107); Glucose 128 mg/dL (74-99); Magnesium 1.7 mg/dL (1.6-2.3); Non-African American GFR(MDRD) >60 (>60 ml/min/1.73 sqM); Phosphorus 2.9 mg/dL (2.5-4.5); Potassium 3.4 mmol/L (3.5-5.1); Sodium 138 mmol/L (137-145)
--- NOTE | 2017-01-13 11:45 | PN ---
DATE OF SERVICE: 01/11/2017 PRESENTING COMPLAINT: Bowel obstruction. INTERVAL HISTORY: This is a patient who was in the hospital recently with left axillary abscess, status post I&D. Had a wound VAC before she was admitted to this admission. This admission, patient was readmitted with secondary infection and also had acute shingles on the right neck and upper chest wall. On 01/02/17, the patient was found to have acute bowel obstruction/ileus. NG tube was placed. Continues to have ileus. Patient also had run of atrial fibrillation. The patient is lying in bed. NG tube remains in place. Some abdominal pain. Had some small bowel movement. Review of systems done for constitutional, cardiovascular, GI, pulmonary; relevant findings as above. Current medications are reviewed and include DuoNeb, Eliquis, IV fluids, IV Zosyn and Valtrex. On examination, temperature 97, pulse 84, respirations 16, blood pressure 99/44 , pulse ox 98% on 3 L. GENERAL APPEARANCE: Lying in bed, tired appearing. EYES: Pupils equal. Conjunctivae normal. NECK: JVD unable to assess. Mass not palpable. RESPIRATORY: Effort normal. LUNGS: Decreased breath sounds. CARDIOVASCULAR: First and second sounds normal. Mild edema. ABDOMEN: Mild distention. Liver and spleen not palpable. Bowel sounds are sluggish. RIGHT CHEST: Chest wall healing zoster ( ) lesions. INVESTIGATIONS: White count 10.7, hemoglobin 7.2. Potassium 3.9. BUN 22, creatinine 1.0. Accu-Cheks noted. Patient's abdominal x-ray showing ileus versus obstruction. ASSESSMENT: 1. Acute bowel obstruction with ileus, slow to respond. NG tube remains in place. 2. Left axillary abscess with I&D from the last admission with secondary infection. 3. Diabetes mellitus type 2, chronically on insulin. 4. Paroxysmal atrial fibrillation, back in sinus rhythm, on Eliquis. 5. Coronary artery disease, nonobstructive 50% left anterior descending artery lesion. 6. Gastroesophageal reflux disease. 7. Essential hypertension. 8. Hyperlipidemia. 9. Metabolic alkalosis. 10. Schizophrenia disorder, chronic. 11. Anxiety disorder, not otherwise specified. 12. Peripheral neuropathy idiopathic. 13. CODE STATUS: FULL. 14. Herpes zoster type 2, acute in the neck and upper chest wall, improved. PLAN: Will talk to Dr. Bhesania. In the meantime, will go and order TPN and lipids in the morning. Care was discussed with the patient. Prognosis guarded. MTDD
[2017-01-13] MEDS ORDERED: POTASSIUM CHLORIDE 20 MEQ in WATER FOR INJECTION 1 100ML.BAG IVPB ONE (12:00)
[2017-01-13] MEDS: SODIUM HYPOCHLORITE 0.5% 480 ML BOT MISCELLANE SCH ×2 (12:13→21:42)
[2017-01-13 12:24] LABS: Glucose,Whole Blood 161 mg/dL (75-99)
[2017-01-13] MEDS: CYANOCOBALAMIN 500 MCG TAB PO SCH (13:05)
--- NOTE | 2017-01-13 15:27 | P.PN ---
<MickDonna M - Last Filed: 01/13/17 15:06> Subjective 61-year-old female seen on rounds this morning is awake and alert sitting up in bed. The nasal gastric tube has been DC'd yesterday. Currently patient is indicating not having any abdominal pain is incontinent of urine had 1 bowel movement last evening. No stool this morning currently the patient is stating she did not like clear liquids and has no appetite. Patient states if I tried to eat something does not cause pain I do not feel nauseated when questioning. Bowel tones are present Patient is being followed by surgical service status post incision and drainage of a left axillary abscess. Currently there is a dressing and packing in place to the left axillary area. In the interim the patient had developed an ileus did have the nasal gastric tube placed which has been removed. Patient currently is on TPN for nutritional support Objective - Vital Signs Vital signs: Vital Signs Temp 97.6 F 01/13/17 07:00 Pulse 71 01/13/17 08:00 Resp 16 01/13/17 08:00 BP 94/55 01/13/17 07:00 Pulse Ox 99 01/13/17 07:00 Intake & Output 01/12/17 01/13/17 01/13/17 18:59 06:59 18:59 Intake Total 500 175 Balance 500 175 Weight 99.337 kg 103 kg Intake: Oral 500 175 Other: Voiding Method Incontinent Incontinent Incontinent # Voids 1 3 1 # Bowel Movements 1 - Exam Physical exam 61-year-old female resting in bed increasingly more awake and alert this morning is currently denying abdominal pain when questioning Lungs anterior essentially clear with adequate air movement nasal cannula 3 L Heart S1-S2 audible and regular Abdomen obese soft nondistended nontender bowel tones present no facial grimacing with palpitation to the abdominal wall incontinent urine no stool this morning. Patient states does not like clear liquids Extremities bilateral pedal edema noted - Labs CBC & Chem 7: 01/13/17 08:09 01/13/17 08:09 Labs: Abnormal Lab Results - Last 24 Hours (Table) 01/12/17 01/12/17 01/12/17 Range/Units 07:37 17:31 20:58 RBC (3.80-5.40) m/uL Hgb (11.4-16.0) gm/dL Hct (34.0-46.0) % MCV (80.0-100.0) fL MCHC (31.0-37.0) g/dL RDW (11.5-15.5) % Plt Count (150-450) k/uL Potassium (3.5-5.1) mmol/L Chloride 109 H (98-107) mmol/L Glucose 71 L (74-99) mg/dL POC Glucose (mg/dL) 144 H 128 H (75-99) mg/dL Calcium (8.4-10.2) mg/dL Magnesium 1.5 L (1.6-2.3) mg/dL 01/13/17 01/13/17 01/13/17 Range/Units 07:32 08:09 08:09 RBC 2.47 L (3.80-5.40) m/uL Hgb 7.8 L (11.4-16.0) gm/dL Hct 25.9 L (34.0-46.0) % MCV 104.8 H (80.0-100.0) fL MCHC 30.1 L (31.0-37.0) g/dL RDW 15.8 H (11.5-15.5) % Plt Count 526 H (150-450) k/uL Potassium 3.4 L (3.5-5.1) mmol/L Chloride (98-107) mmol/L Glucose 128 H (74-99) mg/dL POC Glucose (mg/dL) 144 H (75-99) mg/dL Calcium 8.3 L (8.4-10.2) mg/dL Magnesium (1.6-2.3) mg/dL 01/13/17 Range/Units 12:22 RBC (3.80-5.40) m/uL Hgb (11.4-16.0) gm/dL Hct (34.0-46.0) % MCV (80.0-100.0) fL MCHC (31.0-37.0) g/dL RDW (11.5-15.5) % Plt Count (150-450) k/uL Potassium (3.5-5.1) mmol/L Chloride (98-107) mmol/L Glucose (74-99) mg/dL POC Glucose (mg/dL) 161 H (75-99) mg/dL Calcium (8.4-10.2) mg/dL Magnesium (1.6-2.3) mg/dL Assessment and Plan Plan: Impression Episode this admission nausea vomiting x-ray shows evidence of an ileus Loose stools with stool studies negative for C. diff Episode of diffuse abdominal discomfort suspect due to an ileus Schizoaffective schizophrenia Present on admission varicella zoster Present on admission abscess left axillary Moderate protein calorie malnutrition Status post incision and drainage left axillary abscess wound VAC on hold Repeat two-view of the abdomen done on the 12 of January bowel obstruction is not evident Plan Continue TPN per PICC line for nutritional support did discuss with the attending Continue with the Reglan 5 mg IV every 6 scheduled DVT and GI prophylaxis Further surgical recommendations pending IV antibiotics per infectious diseases recommendations Dr. Elmore following Continue further recommendations by pulmonary service Donna Barton dictating for dr pineda covering for dr haley The above impression and plan of care have been discussed and directed by signing physician. Donna Barton nurse practitioner acting as scribe for signing physician. <Vernon Pineda - Last Filed: 01/13/17 19:29> Objective - Vital Signs Vital signs: Vital Signs Temp 97.1 F L 01/13/17 15:00 Pulse 71 01/13/17 16:00 Resp 14 01/13/17 16:00 BP 104/59 01/13/17 15:00 Pulse Ox 99 01/13/17 15:00 Intake & Output 01/13/17 01/13/17 01/14/17 06:59 18:59 06:59 Intake Total 375 Balance 375 Weight 103 kg Intake: Oral 375 Other: Voiding Method Incontinent Incontinent # Voids 3 1 - Labs CBC & Chem 7: 01/13/17 08:09 01/13/17 08:09 Labs: Abnormal Lab Results - Last 24 Hours (Table) 01/12/17 01/13/17 01/13/17 Range/Units 20:58 07:32 08:09 RBC 2.47 L (3.80-5.40) m/uL Hgb 7.8 L (11.4-16.0) gm/dL Hct 25.9 L (34.0-46.0) % MCV 104.8 H (80.0-100.0) fL MCHC 30.1 L (31.0-37.0) g/dL RDW 15.8 H (11.5-15.5) % Plt Count 526 H (150-450) k/uL Potassium (3.5-5.1) mmol/L Glucose (74-99) mg/dL POC Glucose (mg/dL) 128 H 144 H (75-99) mg/dL Calcium (8.4-10.2) mg/dL 01/13/17 01/13/17 01/13/17 Range/Units 08:09 12:22 16:45 RBC (3.80-5.40) m/uL Hgb (11.4-16.0) gm/dL Hct (34.0-46.0) % MCV (80.0-100.0) fL MCHC (31.0-37.0) g/dL RDW (11.5-15.5) % Plt Count (150-450) k/uL Potassium 3.4 L (3.5-5.1) mmol/L Glucose 128 H (74-99) mg/dL POC Glucose (mg/dL) 161 H 127 H (75-99) mg/dL Calcium 8.3 L (8.4-10.2) mg/dL Assessment and Plan Plan: As above. Patient says her abdominal pain is improving. She points to the right lower quadrant today. Abdominal examination reveals mild bilateral lower quadrant tenderness. She did have a bowel movement yesterday evening. She is tolerating her full liquids at this time in small volume.
[2017-01-13 16:48] LABS: Glucose,Whole Blood 127 mg/dL (75-99)
[2017-01-13] MEDS: FERROUS SULFATE 325 MG TAB PO SCH (17:08)
[2017-01-13] MEDS: MVI, ADULT NO.4 WITH VIT K 10 ML, TRACE (CONC-1ML/DOSE) 1 ML in AMINO ACID 5%-D25W+LYTE... IV SCH ×3 (17:11)
--- NOTE | 2017-01-13 17:28 | P.PN ---
<Carlotta Ibarra Wilder - Last Filed: 01/13/17 17:28> Progress Note - Text DATE OF SERVICE: 01/13/2017 PRESENTING COMPLAINT: Tired INTERVAL HISTORY: 61-year-old female who was sent from the [facility], developed shingles in her neck right upper chest area and on the right somewhat painful vesicles. Patient had an extensive hospital stay not too long ago she developed a large axilla abscess secondary to an insect bite. At that time incision and drainage was completed, culture positive for Peptostreptococcus and MSSA, patient was started on Cipro per Dr. Elmore of infectious disease. There was also a wound VAC in place. Wound VAC was discontinued due to increased drainage concerns for infection. Patient developed a small bowel obstruction versus ileus on , NG tube placed, subsequently removed on 01/06/2017 and started on a liquid diet advance as tolerated. 01/09/2017 patient developed abdominal discomfort and on 01/10/2017 patient was found to have a second ileus NG tube replaced at that time. 01/13/2017: Patient seen in follow-up no acute events overnight. NG tube is out, complains of some left lower quadrant abdominal pain. Had a large BM yesterday able to tolerate some of her liquid diet. TPN for nutritional support continues with lipids. Left axilla continues to be painful and slow to improve local wound care continues per ID. Shingles vesicles crusted over, pain improving 01/12/2017: Patient seen in follow-up no acute overnight events. NG tube remains in place, patient states her abdominal pain is better today, passing some gas, remains nothing by mouth. Discussed with surgery nutritional support TPN to be added today. Left axilla pain improved 01/11/2017: Patient seen in follow-up, no acute overnight events. NG tube remains in place patient complains of abdominal pain, not passing any gas, remains nothing by mouth. Left axilla continues to pain the patient, she complains that it smells. REVIEW OF SYSTEMS: Done for constitutional ,cardiovascular, GI, pulmonary integument with relevant findings as above. CURRENT MEDICATIONS DuoNeb, Eliquis, aspirin, Lipitor, Pulmicort, Tums, Protonix, piperacillin and tazobactam IV, Seroquel, PHYSICAL EXAM VITAL SIGNS: Temperature 97.6, pulse 71, respiratory rate 16, blood pressure 94/55, oxygen saturation 99% on 3 L. GENERAL APPEARANCE: Lying in bed, not in distress. EYES: Pupils equal. Conjunctiva normal. NECK: JVD not raised. Mass not palpable. RESPIRATORY: Respiratory effort normal. Lungs diminished with some scattered rhonchi to auscultation. CARDIOVASCULAR: First and second sounds normal. Moderate edema. ABDOMEN: Soft. Liver and spleen not palpable. Left lower quadrant tenderness. No mass palpable. PSYCHIATRY: Alert and oriented x3. Mood and affect normal. INTEGUMENT: Left axilla with dressing in place, Dakin solution wet-to-dry dressing utilized. Left upper neck and chest area vesicles healed. INVESTIGATIONS: Hemoglobin 7.8 potassium 3.4, Accu-Cheks noted ASSESSMENT: -Herpes zoster type II in the neck and upper chest wall area, improving -Unspecified open wound of left axilla, status post incision and drainage, wound VAC placement, wound VAC removal, slow to respond -Acute bowel obstruction with improvement -Coronary artery disease with nonobstructive 50% LAD lesion -Gastroesophageal reflux disease. -Essential hypertension. -Hyperlipidemia. -Metabolic alkalosis, resolved -Chronic tardive dyskinesia. -Schizoaffective disorder chronic. -Anxiety disorder not otherwise specified. -Peripheral neuropathy idiopathic. -Hypokalemia likely hypoosmolar, supplemented. -CODE STATUS full code PLAN: Add TPN to patient's regimen per surgery, potassium supplemented, Continue dressing changes and antibiotic therapy for left axilla infection. Plan of care discussed at the bedside with patient and she is agreeable. SKIING TEACHER statement: Patient was seen and examined by nurse practitioner Carlotta Ibarra and all elements of the case discussed with attending Dr. Elizabeth <Marvin Elizabeth - Last Filed: 01/13/17 21:21> Progress Note - Text Attending note. Date of service-01/13/2017 This patient was seen and examined by me . I reviewed the note of my nurse practitioner, Ms. Ibarra. Discussed with her, additional findings as below. Patient continues to better. NG tube is out. Had a large bowel movement yesterday. Did tolerate some liquids. Appears more comfortable laying in bed Getting TPN On examination: Lungs-decreased breath sounds, psych AAO 3 and anxious appearing, abdomen-soft , mild tenderness bowel sounds present Investigations: Assessment and plan: Acute bowel obstruction/ileus with clinical improvement. Diet be advanced per surgery, currently clear liquids today morning. Continue TPN.
[2017-01-13 21:23] LABS: Glucose,Whole Blood 111 mg/dL (75-99)
[2017-01-13] MEDS: QUEtiapine 400 MG TAB PO SCH (21:39)
[2017-01-13] MEDS: ATORVASTATIN 10 MG TAB PO SCH (21:39)
[2017-01-14] MEDS: METOCLOPRAMIDE 5 MG/ML 2 ML VIAL IVP SCH ×4 (00:31→17:08)
[2017-01-14] MEDS: PIPERACILLIN-TAZOBACTAM 3.375 GM in DEXTROSE/WATER 1 50ML.BAG IVPB SCH ×3 (00:31→16:59)
[2017-01-14] MEDS: ZINC OXIDE 20% OINT 28.4 GM TUBE TOPICAL SCH ×2 (01:12→13:09)
[2017-01-14] MEDS: valACYclovir HCL 1,000 MG TABLET PO SCH ×3 (06:36→22:24)
[2017-01-14 07:10] LABS: Glucose,Whole Blood 104 mg/dL (75-99)
[2017-01-14] MEDS: IPRATROPIUM-ALBUTEROL 3 ML NEB INHALATION SCH ×4 (07:48→20:09)
[2017-01-14] MEDS: BUDESONIDE 0.5 MG/2 ML NEBU INHALATION SCH ×2 (07:48→20:09)
[2017-01-14 08:34] LABS: Ionized Calcium 5.3 mg/dL (4.5-5.3)
[2017-01-14 09:02] LABS: Anion Gap 2 mmol/L; Blood Urea Nitrogen 16 mg/dL (7-17); Calcium 8.4 mg/dL (8.4-10.2); Carbon Dioxide 30 mmol/L (22-30); Chloride 107 mmol/L (98-107); Glucose 88 mg/dL (74-99); Magnesium 1.5 mg/dL (1.6-2.3); Non-African American GFR(MDRD) >60 (>60 ml/min/1.73 sqM); Phosphorus 2.8 mg/dL (2.5-4.5); Potassium 4.1 mmol/L (3.5-5.1); Sodium 139 mmol/L (137-145)
[2017-01-14] MEDS: GABAPENTIN 300 MG CAP PO SCH ×2 (09:18→16:57)
[2017-01-14] MEDS: METOPROLOL TARTRATE 25 MG TAB PO SCH ×3 (09:18→22:24)
[2017-01-14] MEDS: VIT A,C & E-LUTEIN-MINERALS 1 EACH TAB PO SCH (09:18)
[2017-01-14] MEDS: DIGOXIN 125 MCG TAB PO SCH (09:18)
[2017-01-14] MEDS: SENNOSIDES 8.6 MG TAB PO SCH ×2 (09:18→16:58)
[2017-01-14] MEDS: CITALOPRAM HYDROBROMIDE 20 MG TAB PO SCH (09:19)
[2017-01-14] MEDS: LORATADINE 10 MG TAB PO SCH (09:19)
[2017-01-14] MEDS: POTASSIUM CHLORIDE ER 10 MEQ TAB.ER.PRT PO SCH (09:19)
[2017-01-14] MEDS: APIXABAN 5 MG TAB PO SCH ×2 (09:19→22:24)
[2017-01-14] MEDS: CHOLECALCIFEROL 1,000 UNIT TAB PO SCH (09:19)
[2017-01-14] MEDS: ASPIRIN 81 MG PO SCH (09:19)
[2017-01-14] MEDS: SODIUM HYPOCHLORITE 0.5% 480 ML BOT MISCELLANE SCH ×2 (09:20→20:38)
[2017-01-14] MEDS: PANTOPRAZOLE 40 MG/10 ML VIAL IVP SCH (09:20)
--- NOTE | 2017-01-14 10:03 | P.PN ---
Subjective Principal diagnosis: Patient seen and evaluated during the rounds again patient NG tube has been removed still have intermittent pain patient finally started having bowel movements Patient seen and evaluated exam and clinically patient is not much change breathing. Denies any chest pain still of issues associated abdominal discomfort any ileus-like changes general surgery is following from [facility] standpoint cough congestion or shortness of breath is stable and improved Interval history: 01/06/17- this patient is seen and examined and evaluated today 01/06/2017 on the selective care unit. Patient is resting up in bed on 2 L of supplemental oxygen. She has intermittent shortness of breath with a cough and congestion. She did have her NG tube removed yesterday. She has been tolerating food and fluids this morning. Is any abdominal pain at this time. Wound culture has been completed and shows Ingrid albicans, enterococcus faecalis and staphylococcal aureus. Urine, sputum and blood cultures have been negative so far. She has been afebrile no further complaints. 01/07/17- patient underwent a barium swallow study this morning those results are not readily available at this time. Apparently the patient did fail her swallow evaluation at bedside yesterday. She was made nothing by mouth after failing the evening of impending barium swallow study. Currently the patient's resting up in bed on 3 LPM, of supplemental oxygen. Continues to have shortness of breath with activity or exertion. Continues with cough and congestion however has not brought up any sputum. 01/08/17- patient is being seen and examined and evaluated today on rounds. Currently she is resting up in bed on 3 L of nasal cannula. She continues to have shortness of breath with activity and exertion. She states her cough and congestion has significantly improved. Patient is being worked up for discharge planning back to rehab facility in the near future. Barium swallow study from yesterday was negative. Labs and reports have been reviewed. She is afebrile no overnight events. Continues to have some discomfort to the wound areas. 01/09/17- patient has been seen and examined and evaluated today on the fourth floor. Currently she is resting up in bed on 3 L of supplemental oxygen. Has minimal cough or congestion. Continues with shortness of breath with exertion. She did have a large bowel movement yesterday evening per the nurse. He has a good appetite and has been tolerating her diet well. She is afebrile, no overnight events. 01/10/17- patient is being seen examined and evaluated today on the fourth floor. Patient did have an abdominal x-ray last night and again this morning. Abdominal x-ray results shows ileus versus obstruction. An NG tube has also been placed and has had significant coffee ground output. Patient states she does feel slightly bloated. She continues to have shortness of breath with exertion. Does complain of some diffuse abdominal discomfort today. 01/11/17- patient is being seen examined and evaluated today on the floor. She continues to have an NG tube with coffee-ground fluid obtained. She is also being seen by surgical services. She continues to feel bloated in her abdomen. Continues with diffuse abdominal discomfort. Shortness of breath with exertion. She does have a cough denies any congestion or sputum production. Afebrile, no overnight events no further complaints. Objective - Vital Signs Vital signs: Vital Signs Temp 96.1 F L 01/14/17 07:00 Pulse 86 01/14/17 08:06 Resp 1 L 01/14/17 07:00 BP 101/51 01/14/17 07:00 Pulse Ox 91 L 01/14/17 07:00 Intake & Output 01/13/17 01/14/17 01/14/17 18:59 06:59 18:59 Intake Total 375 Balance 375 Weight 103 kg 104.5 kg Intake: Oral 375 Other: Voiding Method Incontinent Incontinent # Voids 1 3 # Bowel Movements 1 - Exam GENERAL EXAM: Alert, active, comfortable in no apparent distress. HEAD: Normocephalic. EYES: Normal reaction of pupils, equal size. NOSE: Clear with pink turbinates. NG tube present with dark coffee ground output THROAT: No erythema or exudates. NECK: No masses, no JVD. CHEST: No chest wall deformity. LUNGS: Equal air entry slightly coarse with no crackles, wheeze, rhonchi or dullness. Bases diminished CVS: S1 and S2 normal with no audible mumurs, regular rhythm. ABDOMEN: No hepatosplenomegaly, normal bowel sounds, no guarding or rigidity. EXTREMITIES: No edema noted, pedal pulses palpable. Patient does have a left axillary early dressing with packing clean dry and intact. Tender SKIN: No rashes, shingles rash on right neck and anterior chest wall. Tender CENTRAL NERVOUS SYSTEM: No focal deficits, tone is normal in all 4 extremities. - Labs CBC & Chem 7: 08/23/17 08:09 01/14/17 07:51 Labs: Abnormal Lab Results - Last 24 Hours (Table) 01/13/17 01/13/17 01/13/17 Range/Units 12:22 16:45 21:21 POC Glucose (mg/dL) 161 H 127 H 111 H (75-99) mg/dL Magnesium (1.6-2.3) mg/dL 01/14/17 01/14/17 Range/Units 06:54 07:51 POC Glucose (mg/dL) 104 H (75-99) mg/dL Magnesium 1.5 L (1.6-2.3) mg/dL Assessment and Plan Plan: Assessment Left axillary abscess, status post I&D with surrounding cellulitis Small bowel obstruction/ileus Obstructive sleep apnea Paroxysmal atrial fibrillation, currently sinus rhythm Coronary artery disease Chronic lower extremity edema Schizophrenic disorder Hypertension Generalized anxiety disorder Peripheral neuropathy Diabetes mellitus type 2 Acute renal failure secondary to intravascular depletion Shingles affecting the right chest area, improved Plan Discharge is currently being held at this time due to ileus/obstruction. Discharge planning in place to go back to extended care facility when stable. Labs and reports have been reviewed. Medications have been reviewed and will be continued as ordered. Appreciate consults and recommendations. Continue with pulmonary hygiene, coughing and deep breathing exercises, and supportive care. Supplemental oxygen to maintain oxygen saturations of 92% or better. Continue nebulizer treatments. GI and DVT prophylaxis. We will continue to monitor labs/results and adjust treatment as necessary. Further recommendations pending.
[2017-01-14 12:53] LABS: Glucose,Whole Blood 140 mg/dL (75-99)
[2017-01-14] MEDS: MAGNESIUM SULFATE-D5W PMX 1 GM in DEXTROSE/WATER 1 100ML.BAG IVPB SCH ×3 (13:09→17:39)
--- NOTE | 2017-01-14 13:58 | P.PN ---
<Carlotta Ibarra Wilder - Last Filed: 01/14/17 18:25> Progress Note - Text DATE OF SERVICE: 01/14/2017 PRESENTING COMPLAINT: Tired INTERVAL HISTORY: 61-year-old female who was sent from the [facility], developed shingles in her neck right upper chest area and on the right somewhat painful vesicles. Patient had an extensive hospital stay not too long ago she developed a large axilla abscess secondary to an insect bite. At that time incision and drainage was completed, culture positive for Peptostreptococcus and MSSA, patient was started on Cipro per Dr. Elmore of infectious disease. There was also a wound VAC in place. Wound VAC was discontinued due to increased drainage concerns for infection. Patient developed a small bowel obstruction versus ileus on , NG tube placed, subsequently removed on 01/06/2017 and started on a liquid diet advance as tolerated. 01/09/2017 patient developed abdominal discomfort and on 01/10/2017 patient was found to have a second ileus NG tube replaced at that time. 01/14/2017: Patient seen in follow-up no acute overnight events. Continues to complain of left lower quadrant abdominal pain, had a very large BM last night. Tolerating about 30% of her liquid diet, TPN/lipids continue for nutritional support. Left axilla continues to be painful, slow to respond to local wound care, continues per ID. Shingles vesicles to the right shoulder and neck crusted over , pain improving. 01/13/2017: Patient seen in follow-up no acute events overnight. NG tube is out, complains of some left lower quadrant abdominal pain. Had a large BM yesterday able to tolerate some of her liquid diet. TPN for nutritional support continues with lipids. Left axilla continues to be painful and slow to improve local wound care continues per ID. Shingles vesicles on right neck and shoulder crusted over, pain improving 01/12/2017: Patient seen in follow-up no acute overnight events. NG tube remains in place, patient states her abdominal pain is better today, passing some gas, remains nothing by mouth. Discussed with surgery nutritional support TPN to be added today. Left axilla pain improved 01/11/2017: Patient seen in follow-up, no acute overnight events. NG tube remains in place patient complains of abdominal pain, not passing any gas, remains nothing by mouth. Left axilla continues to pain the patient, she complains that it smells. REVIEW OF SYSTEMS: Done for constitutional ,cardiovascular, GI, pulmonary integument with relevant findings as above. CURRENT MEDICATIONS DuoNeb, Eliquis, aspirin, Lipitor, Pulmicort, Tums, Protonix, piperacillin and tazobactam IV, Seroquel, Valtrex. PHYSICAL EXAM VITAL SIGNS: Temperature 96.1, pulse 70, respiratory rate 18, blood pressure 101/51, oxygen saturation 91% on 3 L. GENERAL APPEARANCE: Lying in bed, not in distress. EYES: Pupils equal. Conjunctiva normal. NECK: JVD not raised. Mass not palpable. RESPIRATORY: Respiratory effort normal. Lungs diminished with some scattered rhonchi to auscultation. CARDIOVASCULAR: First and second sounds normal. Moderate edema. ABDOMEN: Soft. Liver and spleen not palpable. Left lower quadrant tenderness. PSYCHIATRY: Alert and oriented x3. Mood and affect normal. INTEGUMENT: Left axilla with dressing in place, Dakin solution wet-to-dry dressing utilized. Right upper neck and chest area vesicles healed. INVESTIGATIONS: Magnesium 1.5 Accu-Cheks noted ASSESSMENT: -Herpes zoster type II in the right neck and right upper chest wall area, improving -Unspecified open wound of left axilla, status post incision and drainage, wound VAC placement, wound VAC removal, slow to respond -Acute bowel obstruction with clinical improvement -Coronary artery disease with nonobstructive 50% LAD lesion -Gastroesophageal reflux disease. -Essential hypertension. -Hyperlipidemia. -Metabolic alkalosis, resolved -Chronic tardive dyskinesia. -Schizoaffective disorder chronic. -Anxiety disorder not otherwise specified. -Peripheral neuropathy idiopathic. -Hypokalemia likely hypoosmolar, supplemented. -acute urinary retention -CODE STATUS full code PLAN: Add TPN to patient's regimen per surgery, magnesium supplemented, diet advanced per surgery. Continue dressing changes and antibiotic therapy for left axilla infection. Plan of care discussed at the bedside with patient and she is agreeable. [employer]GEMENT CONSULTANT statement: Patient was seen and examined by nurse practitioner Carlotta Ibarra and all elements of the case discussed with attending Dr. Elizabeth <Marvin Elizabeth - Last Filed: 01/15/17 16:17> Progress Note - Text Attending note. Date of service-01/14/2017 This patient was seen and examined by me . Discussed the patient with my nurse practitioner Ms. Ibarra. Patient feeling better. Had large amount of urinary retention, 2000 mL obtained by Bell catheter. Eating better laying in bed more comfortable On examination: Lungs-decreased breath sounds, abdomen soft decreased tenderness, psych-Hill 3 Investigations: Potassium 4.1 Accu-Cheks noted Assessment and plan: Acute urinary retention, responded to Bell catheter. Other medical conditions improving. Overall doing better. Discharge antibiotics to be decided by Dr. Elmore. Care was discussed with the patient. Eating and having bowel movements better.
--- NOTE | 2017-01-14 14:34 | CDI ---
In responding to this query, please exercise your independent professional judgment. The [facility] Coding Staff and Clinical Documentation Specialists appreciate your assistance in clarifying documentation, maintaining compliance with coding guidelines, accurately documenting patients condition and capturing severity of illness. The fact that a question is asked does not imply that any particular answer is desired or expected. Communication forms are a method of clarifying documentation and are not made part of the Legal Health Record. Thank you in advance for your clarification. Last Revision, August 2016 Donta Brian [address] [facility] [place] [address] Documentation Clarification Form Date: 01/14/2017 2:04:00 PM From: Michaelle Shipley, [place], CCDS Admit Date: 12/30/2016 2:37:00 AM Patient Name: Diana Corey Visit Number: [id number] Discharge Date: Dr. Marvin Elizabeth: EC: 61 yo female admitted from retirement with fever, cough, LALO and non healing wound in left axilla, status post I&D, wound VAC placement and antibiotic treatment on recent admission. History: CAD with stent, Asthma, CVA, Hypertension & Macular Degeneration. Clinical Indicators: Existing soft tissue skin wound infection, per ER note, with superimposed pneumonia. Admit for broad spectrum antibiotics and breathing treatments. Has ostomy. VS: T 100, P 126, R 20, BP 142/86, PO 94 2Lnc. LAB: WBC (10.0), Neut 8.2, BUN 30, Gluc 160. UA: cloudy, 1+ prot, tr ket, mod est, WBC 19. Blood cx: neg, Would Cx: Catherine albicans, Enterococcus faecalis, Staphylococcus aureus. Treatment: Accuchecks, Nutritional supplements, IV Vanco, IV Toradol, IV Zosyn, IV Levaquin, IV fl rate 100, IV fluid bolus x2, Albuterol INH, IV Zofran. Consult: ID, Surgery, Pulmonary In your professional opinion, please clarify if these findings signify one of the following conditions, whether the condition is POA, and cause, if known: Sepsis, ruled out SIRS, without underlying infectious process Sepsis Severe Sepsis Septic Shock Unable to determine Other, please specify Present on Admission: Yes No * Identify the (suspected) organism * Link or clarify if there is associated (due to/with): - Organ failure - Shock It was sepsis present on admission secondary to left axilla infection with catherine albicans enterococcus faecalis and staphlococcus aureus. There was shock associated with the diagnosis. Carlotta Ibarra [facility]- Please document in your progress notes and discharge summary in order to capture severity of illness and risk of mortality. Include clinical findings that support your diagnosis. FYI: Press F11 to launch patient chart. KRYSTYNA
[2017-01-14] MEDS: MVI, ADULT NO.4 WITH VIT K 10 ML, TRACE (CONC-1ML/DOSE) 1 ML in AMINO ACID 5%-D25W+LYTE... IV SCH ×3 (14:41)
[2017-01-14] MEDS ORDERED: HYDROcodone/APAP 7.5-325MG 1 EACH TAB PO PRN (14:48)
[2017-01-14 15:03] VITALS: BMI 39.5
--- NOTE | 2017-01-14 15:40 | P.PN ---
Subjective Principal diagnosis: Abdominal pain Patient says her abdominal pain the lower abdomen is about the same as it was yesterday. She did have a large bowel movement. Denies nausea. Asking for more to eat. Objective - Vital Signs Vital signs: Vital Signs Temp 97.2 F L 01/14/17 15:00 Pulse 81 01/14/17 15:00 Resp 18 01/14/17 15:30 BP 111/45 01/14/17 15:00 Pulse Ox 98 01/14/17 15:00 Intake & Output 01/13/17 01/14/17 01/14/17 18:59 06:59 18:59 Intake Total 375 1011 Balance 375 1011 Weight 103 kg 104.5 kg 104.5 kg Intake: Intake, IV Titration 1011 Amount Mvi, Adult No.4 with Vit 1011 K 10 ml Trace (Conc-1Ml/ Dose) 1 ml In Amino Acid 5%-D25w+Lytes*E* 1,000 ml @ 60 mls/hr IV .[id number] [facility] Rx#:[id number] Oral 375 Other: Voiding Method Incontinent Incontinent # Voids 1 3 # Bowel Movements 1 - Exam Abdomen: Soft, nondistended, mild fullness in the lower midabdomen, mild tenderness - Labs CBC & Chem 7: 01/13/17 08:09 01/14/17 07:51 Labs: Abnormal Lab Results - Last 24 Hours (Table) 01/13/17 01/13/17 01/14/17 Range/Units 16:45 21:21 06:54 POC Glucose (mg/dL) 127 H 111 H 104 H (75-99) mg/dL Magnesium (1.6-2.3) mg/dL 01/14/17 01/14/17 Range/Units 07:51 12:24 POC Glucose (mg/dL) 140 H (75-99) mg/dL Magnesium 1.5 L (1.6-2.3) mg/dL Assessment and Plan (1) Ileus Narrative/Plan: Patient's prior CAT scan was reviewed. Her bladder at that time was quite distended. We'll order a bladder scan at this time. She may require Bell catheter placement. Continue advancing diet as tolerated. We'll sign off at this point. Please contact if needed. Status: Acute
[2017-01-14] MEDS: FERROUS SULFATE 325 MG TAB PO SCH (16:58)
[2017-01-14 17:07] LABS: Glucose,Whole Blood 138 mg/dL (75-99)
[2017-01-14] MEDS: OXYBUTYNIN CHLORIDE 5 MG TAB PO SCH (20:33)
[2017-01-14] MEDS: ATORVASTATIN 10 MG TAB PO SCH (20:33)
[2017-01-14] MEDS: QUEtiapine 400 MG TAB PO SCH (20:37)
[2017-01-14 20:46] LABS: Glucose,Whole Blood 179 mg/dL (75-99)
[2017-01-14] MEDS ORDERED: POLYETHYLENE GLYCOL 3350 17 GM POWD.PACK PO SCH (21:00)
--- NOTE | 2017-01-14 21:06 | P.PN ---
Subjective Principal diagnosis: Pain to right neck 61-year-old female presents to the emergency center from the [facility] care facility where she has been receiving care for her significant abscess to her left axillary area status post incision and drainage. Apparently she started to have change in the drainage despite the wound VAC. She is having some increasing discomfort. She was becoming weak and tired. She then developed a significant rash that started at the base of the neck to the right side. It was a blistering rash that was extremely painful. She believes she had a low-grade fever. Because of her acute changes status she was sent to the emergency center and was admitted. With evidence of the significant rash and the ongoing infection to the left axillary area the infectious diseases consultation was requested. At this time she seems a bit more awake and alert than admission. She is able to relate to some pain at the left axillary area but it is not severe at this time. The wound VAC was minimally uncomfortable. She relates that her great amount of pain is to the right neck where she has the blistering rash. Does not believe she's had a high-grade fever or chills. Feels quite poorly overall. She's had some nausea without emesis. She denying significant abdominal pain at this time. She is not having significant cough or sputum production no hemoptysis. Developed ileus and an NG tube was placed. Denies much abdominal pain today. The axillary ulceration remains problematic. it was unpacked and repacked today. Objective - Vital Signs Vital signs: Vital Signs Temp 97.2 F L 01/14/17 15:00 Pulse 81 01/14/17 15:00 Resp 18 01/14/17 15:30 BP 111/45 01/14/17 15:00 Pulse Ox 98 01/14/17 15:00 Intake & Output 01/14/17 01/14/17 01/15/17 06:59 18:59 06:59 Intake Total 1011 Output Total 4500 Balance -3489 Weight 104.5 kg 104.5 kg Intake: Intake, IV Titration 1011 Amount Mvi, Adult No.4 with Vit 1011 K 10 ml Trace (Conc-1Ml/ Dose) 1 ml In Amino Acid 5%-D25w+Lytes*E* 1,000 ml @ 60 mls/hr IV .[id number] [facility] Rx#:[id number] Output: Urine 4500 Straight 2000 Other: Voiding Method Incontinent # Voids 3 # Bowel Movements 1 1 - Exam 61-year-old woman who appears older than her stated age. More interactive than during her last hospital stay. But his still compromised. HEENT: Anicteric conjunctiva are pink and moist nasal mucosa grossly intact without significant lesions, there is no thrush. Oral mucosa is dry Neck: The neck is supple without significant lymphadenopathy or thyromegaly. Lungs: Good bilateral air entry without significant crackles or wheezing. There is no significant bronchial sounds. There is no egophony or dullness. Heart: Regular rate and rhythm with an audible S1-S2, no S3 no S4. There is no significant murmur click or rub, PMI was nondisplaced. Abdomen: Positive bowel sounds soft and nontender without palpable masses or organomegaly. There was no guarding or rebound. Extremities: The upper extremities have excellent pulses they are symmetric, no significant petechiae or telangiectasia. No splinter hemorrhages were noted. The left axillary area is evidence of site of the incision and drainage. The area is cleansed today is packed with rolled gauze. The entire 2 inch gauze packing of the cavity. Given the odor and lack of improvement will change the dressing products to Dakin's Skin: The VZV rash has resolved to the right neck area. Neuro: Arousable did interaction to some simple questions. - Labs CBC & Chem 7: 01/13/17 08:09 01/14/17 07:51 Labs: Abnormal Lab Results - Last 24 Hours (Table) 01/13/17 01/14/17 01/14/17 Range/Units 21:21 06:54 07:51 POC Glucose (mg/dL) 111 H 104 H (75-99) mg/dL Magnesium 1.5 L (1.6-2.3) mg/dL 01/14/17 01/14/17 01/14/17 Range/Units 12:24 16:42 20:44 POC Glucose (mg/dL) 140 H 138 H 179 H (75-99) mg/dL Magnesium (1.6-2.3) mg/dL Laboratory Results WBC 7.6 k/uL (3.8-10.6) 01/13/17 08:09 RBC 2.47 m/uL (3.80-5.40) L 01/13/17 08:09 Hgb 7.8 gm/dL (11.4-16.0) L 01/13/17 08:09 Hct 25.9 % (34.0-46.0) L 01/13/17 08:09 MCV 104.8 fL (80.0-100.0) H 01/13/17 08:09 MCH 31.6 pg (25.0-35.0) 01/13/17 08:09 MCHC 30.1 g/dL (31.0-37.0) L 01/13/17 08:09 RDW 15.8 % (11.5-15.5) H 01/13/17 08:09 Plt Count 526 k/uL (150-450) H 01/13/17 08:09 Neutrophils % 65 % 01/13/17 08:09 Neutrophils % (Manual) 42 % 01/07/17 08:12 Band Neutrophils % 1 % 01/07/17 08:12 Lymphocytes % 28 % 01/13/17 08:09 Lymphocytes % (Manual) 53 % 01/07/17 08:12 Monocytes % 4 % 01/13/17 08:09 Monocytes % (Manual) 4 % 01/07/17 08:12 Eosinophils % 1 % 01/13/17 08:09 Eosinophils % (Manual) 1 % 01/06/17 06:45 Basophils % 1 % 01/13/17 08:09 Metamyelocytes % 3 % 01/06/17 06:45 Myelocytes % 1 % 01/06/17 06:45 Neutrophils # 4.9 k/uL (1.3-7.7) 01/13/17 08:09 Neutrophils # (Manual) 4.30 k/uL (1.3-7.7) 01/07/17 08:12 Lymphocytes # 2.1 k/uL (1.0-4.8) 01/13/17 08:09 Lymphocytes # (Manual) 5.35 k/uL (1.0-4.8) H 01/07/17 08:12 Monocytes # 0.3 k/uL (0-1.0) 01/13/17 08:09 Monocytes # (Manual) 0.40 k/uL (0-1.0) 01/07/17 08:12 Eosinophils # 0.1 k/uL (0-0.7) 01/13/17 08:09 Eosinophils # (Manual) 0.08 k/uL (0-0.7) 01/06/17 06:45 Basophils # 0.0 k/uL (0-0.2) 01/13/17 08:09 Metamyelocytes # (Man) 0.25 k/uL (0) H 01/06/17 06:45 Myelocytes # (Manual) 0.08 k/uL (0) H 01/06/17 06:45 Nucleated RBCs 0 /100 WBC (0-0) 01/07/17 08:12 Manual Slide Review Performed 01/06/17 06:45 Toxic Granulation Present 01/06/17 06:45 Polychromasia Present 01/06/17 06:45 Hypochromasia Moderate 01/13/17 08:09 Poikilocytosis (manual Present 01/07/17 08:12 Anisocytosis (manual) Present 01/07/17 08:12 Macrocytosis Moderate 01/13/17 08:09 PT 14.8 sec (9.0-12.0) H 12/31/16 03:49 INR 1.5 (<1.2) H 12/31/16 03:49 APTT 29.1 sec (22.0-30.0) 01/03/17 05:50 Sodium 139 mmol/L (137-145) 01/14/17 07:51 Potassium 4.1 mmol/L (3.5-5.1) 01/14/17 07:51 Chloride 107 mmol/L (98-107) 01/14/17 07:51 Carbon Dioxide 30 mmol/L (22-30) 01/14/17 07:51 Anion Gap 2 mmol/L 01/14/17 07:51 BUN 16 mg/dL (7-17) 01/14/17 07:51 Creatinine 0.88 mg/dL (0.52-1.04) 01/14/17 07:51 Est GFR (MDRD) Af Amer >60 (>60 ml/min/1.73 sqM) 01/14/17 07:51 Est GFR (MDRD) Non-Af >60 (>60 ml/min/1.73 sqM) 01/14/17 07:51 Glucose 88 mg/dL (74-99) 01/14/17 07:51 POC Glucose (mg/dL) 179 mg/dL (75-99) H 01/14/17 20:44 POC Glu Board Hammer Operator Pilar Khanna 01/14/17 20:44 Plasma Lactic Acid Britton 1.4 mmol/L (0.7-2.0) 12/31/16 02:50 Calcium 8.4 mg/dL (8.4-10.2) 01/14/17 07:51 Ionized Calcium Dov 5.3 mg/dL (4.5-5.3) 01/14/17 07:51 Phosphorus 2.8 mg/dL (2.5-4.5) 01/14/17 07:51 Magnesium 1.5 mg/dL (1.6-2.3) L 01/14/17 07:51 Total Bilirubin 0.6 mg/dL (0.2-1.3) 12/30/16 01:20 AST 25 U/L (14-36) 12/30/16 01:20 ALT 24 U/L (9-52) 12/30/16 01:20 Alkaline Phosphatase 116 U/L (38-126) 12/30/16 01:20 Total Creatine Kinase <20 U/L (30-135) L 12/30/16 01:20 CK-MB (CK-2) 0.4 ng/mL (0.0-2.4) 12/30/16 01:20 CK-MB (CK-2) Rel Index 0.0 12/30/16 01:20 Troponin I <0.012 ng/mL (0.000-0.034) 12/30/16 01:20 Total Protein 5.8 g/dL (6.3-8.2) L 12/30/16 01:20 Albumin 2.8 g/dL (3.5-5.0) L 12/30/16 01:20 Triglycerides 64 mg/dL (<150) 01/12/17 07:37 Urine Color Yellow 12/30/16 08:30 Urine Appearance Cloudy (Clear) H 12/30/16 08:30 Urine pH 6.0 (5.0-8.0) 12/30/16 08:30 Ur Specific [place] 1.019 (1.001-1.035) 12/30/16 08:30 Urine Protein 1+ (Negative) H 12/30/16 08:30 Urine Glucose (UA) Negative (Negative) 12/30/16 08:30 Urine Ketones Trace (Negative) H 12/30/16 08:30 Urine Blood Negative (Negative) 12/30/16 08:30 Urine Nitrite Negative (Negative) 12/30/16 08:30 Urine Bilirubin Negative (Negative) 12/30/16 08:30 Urine Urobilinogen <2.0 mg/dL (<2.0) 12/30/16 08:30 Ur Leukocyte Esterase Moderate (Negative) H 12/30/16 08:30 Urine RBC 5 /hpf (0-5) 12/30/16 08:30 Urine WBC 19 /hpf (0-5) H 12/30/16 08:30 Ur Squamous Epith Cells 9 /hpf (0-4) H 12/30/16 08:30 Calcium Oxalate Crystal Occasional /hpf (None) H 12/30/16 08:30 Urine Mucus Rare /hpf (None) H 12/30/16 08:30 Urine Yeast (Budding) Many /hpf (None) H 12/30/16 08:30 Microbiology 12/30/16 03:15 Axilla - Left Gram Stain - Final 12/30/16 03:15 Axilla - Left Wound Culture - Final Ingrid albicans Enterococcus faecalis Staphylococcus aureus 12/30/16 01:20 Blood Blood Culture - Final No Growth after 144 hours 01/01/17 12:58 Sputum Gram Stain - Final 01/01/17 12:58 Sputum Sputum Culture - Final 12/30/16 08:30 Urine,Voided Urine Culture - Final Assessment and Plan (1) Varicella zoster Status: Acute (2) Schizo affective schizophrenia Status: Acute (3) Abscess of axilla, left Narrative/Plan: 61-year-old female presents from the [facility] care facility because of onset of severe rash to her right neck as well as low-grade fever and worsening overall status. Patient is evidence of the varicella-zoster of the right neck and upper chest. Has now resolved. The patient has evidence of the extensive axillary abscesses status post incision and drainage. Site is and recultured. Continue antibiotic therapy at this time. Local wound care will be with Dakin's packed into the large axillary ulceration utilizing the 2 inch roll gauze. Negative pressure therapy is on hold due to the ongoing infection at this site. Will be re-Considered in the next several days. Antibiotic therapy with Zosyn will be utilized with covers for the MSSA, strep in the anaerobic gram-negative bacilli that were isolated. Enterococcus also isolated for which the piperacillin will give adequate coverage . She does have moderate protein calorie malnutrition and will need further improved nutrition to help her healing. It appears that her psychiatric status is stable. Status: Acute (4) MSSA (methicillin susceptible Staphylococcus aureus) infection Status: Acute
[2017-01-14 22:30] VITALS: PULSE 74
[2017-01-15] MEDS: METOCLOPRAMIDE 5 MG/ML 2 ML VIAL IVP SCH ×3 (00:26→12:18)
[2017-01-15] MEDS: ZINC OXIDE 20% OINT 28.4 GM TUBE TOPICAL SCH ×2 (00:26→12:18)
[2017-01-15] MEDS: PIPERACILLIN-TAZOBACTAM 3.375 GM in DEXTROSE/WATER 1 50ML.BAG IVPB SCH ×2 (00:26→09:10)
[2017-01-15] MEDS: valACYclovir HCL 1,000 MG TABLET PO SCH ×2 (06:48→12:19)
[2017-01-15] MEDS: MVI, ADULT NO.4 WITH VIT K 10 ML, TRACE (CONC-1ML/DOSE) 1 ML in AMINO ACID 5%-D25W+LYTE... IV SCH ×3 (07:30)
[2017-01-15 07:42] LABS: Glucose,Whole Blood 114 mg/dL (75-99)
[2017-01-15 07:47] VITALS: BP 101/61; RESP 16; TEMP 98.1
[2017-01-15] MEDS: FAT EMULSION 20% 250 ML in EMPTY BAG 1 BAG IV SCH (08:30)
[2017-01-15] MEDS: IPRATROPIUM-ALBUTEROL 3 ML NEB INHALATION SCH ×2 (08:37→11:55)
[2017-01-15] MEDS: BUDESONIDE 0.5 MG/2 ML NEBU INHALATION SCH (08:37)
[2017-01-15] MEDS: PANTOPRAZOLE 40 MG/10 ML VIAL IVP SCH (09:10)
[2017-01-15] MEDS: VIT A,C & E-LUTEIN-MINERALS 1 EACH TAB PO SCH (09:11)
[2017-01-15] MEDS: GABAPENTIN 300 MG CAP PO SCH (09:11)
[2017-01-15] MEDS: APIXABAN 5 MG TAB PO SCH (09:11)
[2017-01-15] MEDS: CHOLECALCIFEROL 1,000 UNIT TAB PO SCH (09:11)
[2017-01-15] MEDS: CITALOPRAM HYDROBROMIDE 20 MG TAB PO SCH (09:11)
[2017-01-15] MEDS: SODIUM HYPOCHLORITE 0.5% 480 ML BOT MISCELLANE SCH (09:11)
[2017-01-15] MEDS: DIGOXIN 125 MCG TAB PO SCH (09:11)
[2017-01-15] MEDS: LORATADINE 10 MG TAB PO SCH (09:11)
[2017-01-15] MEDS: METOPROLOL TARTRATE 25 MG TAB PO SCH (09:11)
[2017-01-15] MEDS: ASPIRIN 81 MG PO SCH (09:11)
[2017-01-15] MEDS: OXYBUTYNIN CHLORIDE 5 MG TAB PO SCH (09:11)
[2017-01-15] MEDS: SENNOSIDES 8.6 MG TAB PO SCH (09:11)
[2017-01-15 09:24] LABS: Anion Gap 2 mmol/L; Blood Urea Nitrogen 24 mg/dL (7-17); Calcium 8.1 mg/dL (8.4-10.2); Carbon Dioxide 31 mmol/L (22-30); Chloride 105 mmol/L (98-107); Glucose 118 mg/dL (74-99); Magnesium 1.7 mg/dL (1.6-2.3); Non-African American GFR(MDRD) >60 (>60 ml/min/1.73 sqM); Phosphorus 2.8 mg/dL (2.5-4.5); Potassium 4.4 mmol/L (3.5-5.1); Sodium 138 mmol/L (137-145)
[2017-01-15 09:43] LABS: Ionized Calcium 5.3 mg/dL (4.5-5.3)
--- NOTE | 2017-01-15 11:57 | P.DS ---
<Carlotta Ibarra Wilder - Last Filed: 01/15/17 11:27> Providers Date of admission: 12/30/16 02:37 Expected date of discharge: 01/15/17 Attending physician: Marvin Elizabeth Consults: 12/30/16 12:38 Consult Physician Routine Consulting Provider: Darain Alvarez Consult Reason/Comments: axilla abscess Do you want consulting provider notified?: Yes Consult Physician Routine Consulting Provider: Matthew Elmore Consult Reason/Comments: fever/axilla abscess Do you want consulting provider notified?: Yes 12/30/16 12:39 Consult Physician Routine Consulting Provider: Simeon Mora Consult Reason/Comments: fever Do you want consulting provider notified?: Yes 01/02/17 14:19 Consult Physician Routine Consulting Provider: Srinivasa Snider Consult Reason/Comments: aspiration Do you want consulting provider notified?: Yes Primary care physician: [facility] Course: FINAL DIAGNOSES: -Herpes zoster type II in the right neck and right upper chest wall area, improving -Unspecified open wound of left axilla, status post incision and drainage, wound VAC placement, wound VAC removal, slow to respond -Acute bowel obstruction with clinical improvement -Coronary artery disease with nonobstructive 50% LAD lesion -Gastroesophageal reflux disease. -Essential hypertension. -Hyperlipidemia. -Metabolic alkalosis, resolved -Chronic tardive dyskinesia. -Schizoaffective disorder chronic. -Anxiety disorder not otherwise specified. -Peripheral neuropathy idiopathic. -Hypokalemia likely hypoosmolar, supplemented. -acute urinary retention -CODE STATUS full code HOSPTIAL COURSE: 61-year-old female was sent from [facility] with shingles on her right neck and upper chest, status post I&D left axilla secondary to an insect bite. Valtrex started for the shingles, patient whom cultures revealed anaerobic gram- negative bacilli and enterococcus.continued on Zosyn to provide coverage for enterococcus with local dressing changes with Dakin solution wet-to-dry dressings per ID. Developed a small bowel obstruction versus ileus NG tube placed subclinically removed started on liquid diet. Patient then again developed abdominal discomfort, found to have a second ileus, NG tube replaced and TPN initiated for nutritional support per surgery and subsequently removed. Lower abdominal pain persisted, developed urinary retention found to have 2000 mL's in her bladder, Mackenzie placed with resolution of abdominal pain. Patient is tolerating her diet, moving her bowels overall condition has improved and is stable for discharge back to [facility]. Patient will continue on IV antibiotic therapy per ID at the nursing facility. PHYSICAL EXAM: CARDIOVASCULAR: First and second sounds noted moderate edema RESPIRATORY: Effort normal, diminished breath sounds bilaterally GI: Left or right lower quadrant tenderness on palpation, liver and spleen not palpable INTEGUMENT: Right shoulder/right neck area with crusted vesicles no weeping noted, left axilla with wet-to-dry dressing in place, : Mackenzie in place for urinary retention Patient was seen and examined by nurse practitioner Carlotta Ibarra in all elements of the case discussed with attending Dr. Elizabeth DISPOSITION: Return to [facility] Patient Condition at Discharge: Stable Plan - Discharge Summary New Discharge Prescriptions: New Apixaban [Eliquis] 5 mg PO BID tab Digoxin [Lanoxin] 125 mcg PO DAILY tab Oxybutynin Chloride [Ditropan] 5 mg PO BID tab Piperacillin-Tazobactam [Zosyn] 3.375 gm IVPB Q8HR #30 bag Polyethylene Glycol 3350 [Miralax] 17 gm PO HS pack Continue Cyanocobalamin [Vitamin B-12] 1,000 mcg PO Q48H Cholecalciferol [Vitamin D3] 2,000 unit PO DAILY Citalopram Hydrobromide [Citalopram HBr] 40 mg PO DAILY Gabapentin [Neurontin] 300 mg PO BID@0900,1700 Loratadine [Claritin] 10 mg PO DAILY Sennosides [Senna] 8.6 mg PO BID@0900,1700 Nitroglycerin Sl Tabs [Nitrostat] 0.4 mg SUBLINGUAL Q5M PRN PRN Reason: Chest Pain QUEtiapine [SEROquel] 400 mg PO HS Calcium Carbonate [Tums] 500 mg PO TID PRN PRN Reason: Indigestion Aspirin EC [Ecotrin Low Dose] 81 mg PO DAILY Budesonide [Pulmicort] 0.5 mg INHALATION RT-BID neb Metoprolol Tartrate [Lopressor] 25 mg PO TID tab Ondansetron [Zofran] 4 mg PO Q8HR PRN PRN Reason: Nausea Dimethicone/Zinc Oxide [Inzo Zinc Oxide Barrier Cream] 1 applic TOPICAL Q12H Calamine/Zinc Oxide Lotion [Calamine Lotion] 1 applic TOPICAL Q6H PRN PRN Reason: shoulder/chest rash Albuterol Nebulized [Ventolin Nebulized] 2.5 mg INHALATION RT-Q6H PRN PRN Reason: Shortness Of Breath Or Wheezing valACYclovir [Valtrex] 1,000 mg PO TID@0600,1400,2200 Amino Acids/Protein Hydrolys [Pro-Stat Supplement] 30 ml PO BID Vit C/E/Zn/Coppr/Lutein/Zeaxan [Preservision Areds 2 Softgel] 1 cap PO DAILY Atorvastatin [Lipitor] 10 mg PO HS Omeprazole 20 mg PO AC-BRKFST Ferrous Sulfate [Iron (65 MG Elemental)] 325 mg PO DAILY@1700 Dimethicone/Zinc Oxide [Inzo Zinc Oxide Barrier Cream] 1 applic TOPICAL DIRECTED PRN PRN Reason: skin protectant Acetaminophen-Codeine 300-30mg [Tylenol w/codeine #3] 1 tab PO Q8H PRN #30 PRN Reason: mild/moderate pain Discontinued Furosemide [Lasix] 20 mg PO DAILY #1 tab Potassium Chloride [Klor-Con 20] 20 meq PO DIRECTED Acetaminophen [Tylenol 8 Hour] 650 mg PO Q4H PRN PRN Reason: Pain ceFAZolin [Kefzol] 2 gm IV TID@0600,1400,2200 Potassium Chloride [Klor-Con 10] 10 meq PO DAILY Discharge Medication List Cholecalciferol [Vitamin D3] 2,000 unit PO DAILY 08/06/14 [History] Citalopram Hydrobromide [Citalopram HBr] 40 mg PO DAILY 08/06/14 [History] Cyanocobalamin [Vitamin B-12] 1,000 mcg PO Q48H 08/06/14 [History] Gabapentin [Neurontin] 300 mg PO BID@0900,1700 07/21/16 [History] Loratadine [Claritin] 10 mg PO DAILY 07/21/16 [History] Sennosides [Senna] 8.6 mg PO BID@0900,1700 07/21/16 [History] Nitroglycerin Sl Tabs [Nitrostat] 0.4 mg SUBLINGUAL Q5M PRN 07/22/16 [History] Aspirin EC [Ecotrin Low Dose] 81 mg PO DAILY 07/27/16 [History] Calcium Carbonate [Tums] 500 mg PO TID PRN 07/27/16 [History] QUEtiapine [SEROquel] 400 mg PO HS 07/27/16 [History] Budesonide [Pulmicort] 0.5 mg INHALATION RT-BID neb 12/21/16 [Rx] Metoprolol Tartrate [Lopressor] 25 mg PO TID tab 12/21/16 [Rx] Albuterol Nebulized [Ventolin Nebulized] 2.5 mg INHALATION RT-Q6H PRN 12/30/16 [ History] Amino Acids/Protein Hydrolys [Pro-Stat Supplement] 30 ml PO BID 12/30/16 [ History] Atorvastatin [Lipitor] 10 mg PO HS 12/30/16 [History] Calamine/Zinc Oxide Lotion [Calamine Lotion] 1 applic TOPICAL Q6H PRN 12/30/16 [ History] Dimethicone/Zinc Oxide [Inzo Zinc Oxide Barrier Cream] 1 applic TOPICAL DIRECTED PRN 12/30/16 [History] Dimethicone/Zinc Oxide [Inzo Zinc Oxide Barrier Cream] 1 applic TOPICAL Q12H 02/07 [History] Ferrous Sulfate [Iron (65 MG Elemental)] 325 mg PO DAILY@1700 12/30/16 [History] Omeprazole 20 mg PO AC-BRKFST 12/30/16 [History] Ondansetron [Zofran] 4 mg PO Q8HR PRN 12/30/16 [History] Vit C/E/Zn/Coppr/Lutein/Zeaxan [Preservision Areds 2 Softgel] 1 cap PO DAILY 02/07 [History] valACYclovir [Valtrex] 1,000 mg PO TID@0600,1400,2200 12/30/16 [History] Acetaminophen-Codeine 300-30mg [Tylenol w/codeine #3] 1 tab PO Q8H PRN #30 [Rx] Apixaban [Eliquis] 5 mg PO BID tab 01/15/17 [Rx] Digoxin [Lanoxin] 125 mcg PO DAILY tab 01/15/17 [Rx] Oxybutynin Chloride [Ditropan] 5 mg PO BID tab 01/15/17 [Rx] Piperacillin-Tazobactam [Zosyn] 3.375 gm IVPB Q8HR #30 bag 01/15/17 [Rx] Polyethylene Glycol 3350 [Miralax] 17 gm PO HS pack 01/15/17 [Rx] Follow up Appointment(s)/Referral(s): Jaden Geronimo DO [STAFF PHYSICIAN] - 01/16/17 Loki Gomes MD [Primary Care Provider] - As Needed Darian Alvarez MD [STAFF PHYSICIAN] - 1 Week Patient Instructions/Handouts: Pneumonia (DC) Activity/Diet/Wound Care/Special Instructions: Soft diet Dressing change to left axilla twice daily with Dakins, 2 inch gauze packing and cover ABD. Maintain oxygen via nasal cannula to keep O2 sats greater than 94%. Change positions every 2 hours while awake. Maintain mackenzie due to retention. Reevaluate per facility protocol. Discharge Disposition: TRANSFER TO SNF/ECF <Marvin Elizabeth - Last Filed: 01/15/17 16:20> Hospital Course: Attending note. Date of service-01/15/2017 This patient was seen and examined by me . Discussed the patient with my nurse practitioner Ms. Ibarra. Feeling better. Tardive tolerating some diet. Abdominal pain better. Had a bowel movement. Mackenzie cath in place. On examination: Lungs have decreased breath sounds. Abdomen soft minimal tenderness, Mackenzie in place, psych-answering questions appropriately Investigations: Potassium 4.4 Assessment and plan: Acute herpes zoster type II with clinical improvement. Acute bowel obstruction resolved. Acute urine retention multifactorial with a Mackenzie cath in place. Discussed with Dr. Elmore. IV Zosyn for 10 more days and follow with him. Discharged to ECF. Discharge planning more than 35 minutes
[2017-01-15 12:13] LABS: Glucose,Whole Blood 125 mg/dL (75-99)
[2017-01-15] MEDS: CYANOCOBALAMIN 500 MCG TAB PO SCH (12:19)
--- NOTE | 2017-01-16 22:06 | PN ---
Ms. Corey is seen, evaluated and examined during rounds. She is overall awake and alert. No obvious distress present. The patient is being followed by infectious disease service and general surgery. Hemodynamic status is marginal but stable. Her care plan reviewed with the primary service. Her blood pressure 100/50. Respiratory rate is 16 to 18. Saturation 90 to 94% on 3 L oxygen. She remains afebrile. HEENT: Otherwise unremarkable. Neck supple. Lungs good air entry bilaterally. Heart regular rate and rhythm. S1, S2 audible. Abdomen is distended but soft, hyperactive bowel sounds. Mild tenderness cannot be excluded. Extremities: Trace edema. Neurological: Otherwise awake and alert. The left axilla is covered with dressing. IMPRESSION: 1. Left axillary wound status post I&D with wound VAC. 2. History of herpes zoster. 3. Dyslipidemia. 4. Hypertension. 5. Hypertensive cardiovascular disease. 6. Obstructive sleep apnea. 7. Small bowel obstruction. PLAN: As above. Continue supportive care. Increase activity as tolerated. Follow up on outpatient setting for consideration of sleep study. Will follow. KRYSTYNA
--- NOTE | 2017-01-18 08:38 | CDI ---
In responding to this query, please exercise your independent professional judgment. The [facility] Coding Staff and Clinical Documentation Specialists appreciate your assistance in clarifying documentation, maintaining compliance with coding guidelines, accurately documenting patients condition and capturing severity of illness. The fact that a question is asked does not imply that any particular answer is desired or expected. Communication forms are a method of clarifying documentation and are not made part of the Legal Health Record. Thank you in advance for your clarification. Last Revision, August 2016 Donta Brian [address] [facility] [place] [address] Documentation Clarification Form Date: 01/14/2017 2:04:00 PM From: Michaelle Shipley, [place], CCDS Admit Date: 12/30/2016 2:37:00 AM Patient Name: Diana Corey Visit Number: [id number] Discharge Date: 01/15/2017 Dr. Marvin Elizabeth: EC: 61 yo female admitted from senior living with fever, cough, LALO and non healing wound in left axilla, status post wound VAC placement and antibiotic treatment on recent admission. History/Risk Factors: CAD with stent, Asthma, CVA, Hypertension & Macular Degeneration. Clinical Indicators: Existing soft tissue skin wound infection, per ER note, with superimposed pneumonia. Admit for broad spectrum antibiotics and breathing treatments. Has ostomy. VS: T 100, P 126, R 20, BP 142/86, PO 94 2Lnc. LAB: WBC (10.0), Neut 8.2, BUN 30, Gluc 160. UA: cloudy, 1+ prot, tr ket, mod karie, WBC 19. Blood cx: neg, Would Cx: Ingrid albicans, Enterococcus faecalis, Staphylococcus aureus. Treatment: Accuchecks, Nutritional supplements, IV Vanco, IV Toradol, IV Zosyn, IV Levaquin, IV fl rate 100, IV fluid bolus x2, Albuterol INH, IV Zofran. Consult: ID, Surgery, Pulmonary In your professional opinion, please clarify if these findings signify one of the following conditions, whether the condition is POA, and cause, if known: Sepsis, ruled out SIRS, without underlying infectious process Sepsis Severe Sepsis Septic Shock Unable to determine Other, please specify Present on Admission: Yes No * Identify the (suspected) organism * Link or clarify if there is associated (due to/with): - Organ failure - Shock Please document in your progress notes and discharge summary in order to capture severity of illness and risk of mortality. Include clinical findings that support your diagnosis. FYI: Press F11 to launch patient chart. KRYSTYNA
--- NOTE | 2017-01-21 12:18 | CDI ---
In responding to this query, please exercise your independent professional judgment. The [facility] Coding Staff and Clinical Documentation Specialists appreciate your assistance in clarifying documentation, maintaining compliance with coding guidelines, accurately documenting patients condition and capturing severity of illness. The fact that a question is asked does not imply that any particular answer is desired or expected. Communication forms are a method of clarifying documentation and are not made part of the Legal Health Record. Thank you in advance for your clarification. Last Revision, August 2016 Donta Brian [address] [place] [address] Documentation Clarification Form Date: 01/14/2017 2:04:00 PM Resubmitted 01/21/2017 12:14 pm From: Michaelle Shipley CCS, CCDS Admit Date: 12/30/2016 2:37:00 AM Patient Name: Diana Corey Visit Number: [id number] Discharge Date: 01/15/2017 Dr. Marvin Elizabeth: EC: 61 yo female admitted from long-term with fever, cough, LALO and non healing wound in left axilla, status post wound VAC placement and antibiotic treatment on recent admission. History/Risk Factors: CAD with stent, Asthma, CVA, Hypertension & Macular Degeneration. Clinical Indicators: Existing soft tissue skin wound infection, per ER note, with superimposed pneumonia. Admit for broad spectrum antibiotics and breathing treatments. Has ostomy. VS: T 100, P 126, R 20, BP 142/86, PO 94 2Lnc. LAB: WBC (10.0), Neut 8.2, BUN 30, Gluc 160. UA: cloudy, 1+ prot, tr ketones, mod esterase, WBC 19. Blood cx: neg, Would Cx: Ingrid albicans, Enterococcus faecalis, Staphylococcus aureus. Treatment: Accuchecks, Nutritional supplements, IV Vanco, IV Toradol, IV Zosyn, IV Levaquin, IV fl rate 100, IV fluid bolus x2, Albuterol INH, IV Zofran. Consult: Infectious disease, Surgery, Pulmonary In your professional opinion, please clarify if these findings signify one of the following conditions, whether the condition is POA, and cause, if known: Sepsis, ruled out SIRS, without underlying infectious process Sepsis Severe Sepsis Septic Shock Unable to determine OR ruled out Other, please specify Present on Admission: Yes No * Identify the (suspected) organism * Link or clarify if there is associated (due to/with): - Organ failure - Shock Please document in your progress notes and discharge summary in order to capture severity of illness and risk of mortality. Include clinical findings that support your diagnosis. FYI: Press F11 to launch patient chart. KRYSTYNA
--- NOTE | 2017-01-27 10:08 | DS ---
DISCHARGE SUMMARY ADDENDUM: DATE OF ADMISSION: 12/30/2016 DATE OF DISCHARGE: 01/15/2017 FINAL DIAGNOSIS: Wound of the left axilla with a status post I&D previously with secondary infection now causing sepsis, present on admission. MMODL / IJN: [id number] /
--- NOTE | 2017-03-04 12:33 | CDI ---
In responding to this query, please exercise your independent professional judgment. The [facility] Coding Staff and Clinical Documentation Specialists appreciate your assistance in clarifying documentation, maintaining compliance with coding guidelines, accurately documenting patients condition and capturing severity of illness. The fact that a question is asked does not imply that any particular answer is desired or expected. Communication forms are a method of clarifying documentation and are not made part of the Legal Health Record. Thank you in advance for your clarification. Last Revision, Jun 2016 Donta Brian [address] [place] [address] Documentation Clarification Form Date: 01/05/2017 11:26:00 AM From: Michaelle Shipley CCS, CCDS Admit Date: 12/30/2016 2:37:00 AM Patient Name: Diana Corey Visit Number: [id number] Discharge Date: 01/15/3017 Dr. Vernon Dao: 61 yo female, Previous admit with possible inset bite & rash left axilla area, had I&D for a large axilla abscess under general anesthesia. Cultures: Peptostreptococcus & MSSA. Discharged with packing & wound VAC to [facility]. Also had acute renal failure, resolved. History/Risk Factors: GERD, Cholecystectomy. This admission, has shingles in neck & left upper chest area on the right, has wound VAC. Bowels were good. Developed bowel obstruction or ileus this admission. Clinical Indicators: Per 01/03 attending progress note: Patient threw up her breakfast, abdomen is distended, has not had a bowel movement for at least 3 or 4 days, some edema. Receiving antibiotics: po Levaquin & IV Zosyn. Abdominal XR: Dilated loops of bowel. Diagnosed with acute bowel obstruction versus ileus, likely the latter, probably from immobility. Treatment: NGT inserted. IV fluids cont'd. Surgery & ID following. In order to accurately reflect this patients severity of illness, please clarify if the post-operative diagnosis (bowel obstruction or ileus) is: An expected post-procedural or post-surgical condition Integral to the procedure Inherent to the procedure An unexpected post-procedural or post-surgical condition, related to surgical care Other, please specify Unable to determine Please document in your progress notes and discharge summary in order to capture severity of illness and risk of mortality. Include clinical findings that support your diagnosis. FYI: Press F11 to launch patient chart MTDD
--- NOTE | 2017-03-06 10:38 | P.PN ---
Subjective Progress Note Date: 01/13/17 Principal diagnosis: 01/13/2017, Patient seen and evaluated during the rounds again patient NG tube has been removed still have intermittent pain patient finally started having bowel movements. Denies any chest pain, overall issues associated abdominal discomfort any ileus-like changes slightly better now patient is being followed by general surgery, cough congestion or shortness of breath is stable and improved Interval history: 01/06/17- this patient is seen and examined and evaluated today 01/06/2017 on the selective care unit. Patient is resting up in bed on 2 L of supplemental oxygen. She has intermittent shortness of breath with a cough and congestion. She did have her NG tube removed yesterday. She has been tolerating food and fluids this morning. Is any abdominal pain at this time. Wound culture has been completed and shows Ingrid albicans, enterococcus faecalis and staphylococcal aureus. Urine, sputum and blood cultures have been negative so far. She has been afebrile no further complaints. 01/07/17- patient underwent a barium swallow study this morning those results are not readily available at this time. Apparently the patient did fail her swallow evaluation at bedside yesterday. She was made nothing by mouth after failing the evening of impending barium swallow study. Currently the patient's resting up in bed on 3 LPM, of supplemental oxygen. Continues to have shortness of breath with activity or exertion. Continues with cough and congestion however has not brought up any sputum. 01/08/17- patient is being seen and examined and evaluated today on rounds. Currently she is resting up in bed on 3 L of nasal cannula. She continues to have shortness of breath with activity and exertion. She states her cough and congestion has significantly improved. Patient is being worked up for discharge planning back to rehab facility in the near future. Barium swallow study from yesterday was negative. Labs and reports have been reviewed. She is afebrile no overnight events. Continues to have some discomfort to the wound areas. 01/09/17- patient has been seen and examined and evaluated today on the fourth floor. Currently she is resting up in bed on 3 L of supplemental oxygen. Has minimal cough or congestion. Continues with shortness of breath with exertion. She did have a large bowel movement yesterday evening per the nurse. He has a good appetite and has been tolerating her diet well. She is afebrile, no overnight events. 01/10/17- patient is being seen examined and evaluated today on the fourth floor. Patient did have an abdominal x-ray last night and again this morning. Abdominal x-ray results shows ileus versus obstruction. An NG tube has also been placed and has had significant coffee ground output. Patient states she does feel slightly bloated. She continues to have shortness of breath with exertion. Does complain of some diffuse abdominal discomfort today. 01/11/17- patient is being seen examined and evaluated today on the floor. She continues to have an NG tube with coffee-ground fluid obtained. She is also being seen by surgical services. She continues to feel bloated in her abdomen. Continues with diffuse abdominal discomfort. Shortness of breath with exertion. She does have a cough denies any congestion or sputum production. Afebrile, no overnight events no further complaints. Objective - Vital Signs Vital signs: Vital Signs Temp 98.1 F 01/15/17 07:00 Pulse 74 01/15/17 07:00 Resp 16 01/15/17 07:00 BP 101/61 01/15/17 07:00 Pulse Ox 99 01/15/17 07:00 - Exam GENERAL EXAM: Alert, active, comfortable in no apparent distress. HEAD: Normocephalic. EYES: Normal reaction of pupils, equal size. NOSE: Clear with pink turbinates. NG tube present with dark coffee ground output THROAT: No erythema or exudates. NECK: No masses, no JVD. CHEST: No chest wall deformity. LUNGS: Equal air entry slightly coarse with no crackles, wheeze, rhonchi or dullness. Bases diminished CVS: S1 and S2 normal with no audible mumurs, regular rhythm. ABDOMEN: No hepatosplenomegaly, normal bowel sounds, no guarding or rigidity. EXTREMITIES: No edema noted, pedal pulses palpable. Patient does have a left axillary early dressing with packing clean dry and intact. Tender SKIN: No rashes, shingles rash on right neck and anterior chest wall. Tender CENTRAL NERVOUS SYSTEM: No focal deficits, tone is normal in all 4 extremities. - Labs CBC & Chem 7: 01/13/17 08:09 01/15/17 08:27 Assessment and Plan Plan: Assessment Left axillary abscess, status post I&D with surrounding cellulitis Small bowel obstruction/ileus Obstructive sleep apnea Paroxysmal atrial fibrillation, currently sinus rhythm Coronary artery disease Chronic lower extremity edema Schizophrenic disorder Hypertension Generalized anxiety disorder Peripheral neuropathy Diabetes mellitus type 2 Acute renal failure secondary to intravascular depletion Shingles affecting the right chest area, improved Plan Discharge is currently being held at this time due to ileus/obstruction. Discharge planning in place to go back to extended care facility when stable. Labs and reports have been reviewed. Medications have been reviewed and will be continued as ordered. Appreciate consults and recommendations. Continue with pulmonary hygiene, coughing and deep breathing exercises, and supportive care. Supplemental oxygen to maintain oxygen saturations of 92% or better. Continue nebulizer treatments. GI and DVT prophylaxis. We will continue to monitor labs/results and adjust treatment as necessary. Further recommendations pending. Time with Patient: Less than 30
--- NOTE | 2017-03-17 12:37 | P.PN ---
Progress Note - Text Progress Note Date: 03/17/17 Patient developed a suspected ileus during her postoperative state. This is an unexpected finding. This is likely related to her immobility and not her recent surgery.
== END 2017-01-15 14:24 | DRG 872 ==
LOC: EC 01:15 → 4MS4W 02:37 → 3SUR 04:40 → 6SEL 12-31 02:59 → 4MS4W 01-06 17:35
PROVIDERS: ADMIT Hospitalist; ATTEND Hospitalist
PROC: 3E0436Z Introduction of Nutritional Substance into Central Vein, Percutaneous Approach (ICD-10-PCS; 2016-12-30)
PROC: 0D9670Z Drainage of Stomach with Drainage Device, Via Natural or Artificial Opening (ICD-10-PCS; principal; 2017-01-02)
DX: A41.9 Sepsis, unspecified organism (principal); N17.9 Acute kidney failure, unspecified; E87.3 Alkalosis; I95.9 Hypotension, unspecified; E44.0 Moderate protein-calorie malnutrition; K56.7 Ileus, unspecified; B02.9 Zoster without complications; I11.9 Hypertensive heart disease without heart failure; L03.112 Cellulitis of left axilla; L02.412 Cutaneous abscess of left axilla; F25.9 Schizoaffective disorder, unspecified; I48.0 Paroxysmal atrial fibrillation; E86.9 Volume depletion, unspecified; G60.9 Hereditary and idiopathic neuropathy, unspecified; E11.9 Type 2 diabetes mellitus without complications; G24.01 Drug induced subacute dyskinesia; B95.61 Methicillin susceptible Staphylococcus aureus infection as the cause of diseases classified elsewhere; I25.10 Atherosclerotic heart disease of native coronary artery without angina pectoris; J45.20 Mild intermittent asthma, uncomplicated; K21.9 Gastro-esophageal reflux disease without esophagitis; E78.5 Hyperlipidemia, unspecified; F41.1 Generalized anxiety disorder; S41.102A Unspecified open wound of left upper arm, initial encounter; E87.6 Hypokalemia; R32 Unspecified urinary incontinence; H35.30 Unspecified macular degeneration; G47.33 Obstructive sleep apnea (adult) (pediatric); E66.9 Obesity, unspecified; R33.9 Retention of urine, unspecified; G43.909 Migraine, unspecified, not intractable, without status migrainosus; K44.9 Diaphragmatic hernia without obstruction or gangrene; Z79.82 Long term (current) use of aspirin; Z79.51 Long term (current) use of inhaled steroids; Z79.2 Long term (current) use of antibiotics; Z79.899 Other long term (current) drug therapy; Z86.73 Personal history of transient ischemic attack (TIA), and cerebral infarction without residual deficits; Z85.42 Personal history of malignant neoplasm of other parts of uterus; Z90.710 Acquired absence of both cervix and uterus; Z90.49 Acquired absence of other specified parts of digestive tract; Z91.030 Bee allergy status
CPT/HCPCS: 36415; 71010; 71020; 74000; 74020; 74176; 74230; 80048; 80053; 81001; 82150; 82330; 82550; 82553; 83605; 83690; 83735; 84100; 84132; 84478; 84484; 85025; 85610; 85730; 87040; 87070; 87077; 87086; 87186; 87205; 93005; 93306; 94640; 94760; 96365; 96366; 96367; 96375; 99285

== ENCOUNTER 2017-01-18 21:35 | Inpatient (IN) | payer MEDICARE, OTHER ==
[2017-01-18] MEDS ORDERED: SODIUM CHLORIDE 0.9% 1,000 ML IV STA (22:22)
[2017-01-18] MEDS ORDERED: SODIUM CHLORIDE 0.9% 500 ML IV STA (22:22)
[2017-01-18] MEDS ORDERED: ACETAMINOPHEN TAB 500 MG TAB PO STA (22:23)
[2017-01-18] MEDS ORDERED: LEVOFLOXACIN 750MG-D5W PMX 750 MG in DEXTROSE/WATER 1 150ML.BAG IVPB STA (22:24)
--- NOTE | 2017-01-18 22:27 | ED ---
General Adult HPI - General Chief complaint: Recheck/Abnormal Lab/Rx Stated complaint: low hemoglobin Time Seen by Provider: 01/18/17 22:12 Source: patient, EMS Mode of arrival: EMS Limitations: no limitations - History of Present Illness Initial comments: This 61-year-old white female presents with a complaint of low hemoglobin. She states that she had some routine labs today and was called and told that her hemoglobin is 6.3. She is currently on aspirin as well as Eloquis. She denies any blood in her stool or black tarry stools. She denies any known blood loss. She also presents with a temperature of 101. She was unaware of any fever at home. She has had occasional cough which is nonproductive in nature. She denies any chest pain, shortness of breath, abdominal pain, or rashes. She does have a indwelling Bell catheter but denies frequent urinary infections. 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 She does have a wound VAC on this area with subsequent swelling and erythema which she states is essentially unchanged. No other complaints or modifying factors. - Related Data Home Medications Medication Instructions Recorded Confirmed Cholecalciferol [Vitamin D3] 2,000 unit PO DAILY 08/06/14 01/18/17 Citalopram Hydrobromide 40 mg PO DAILY 08/06/14 01/18/17 [Citalopram HBr] Cyanocobalamin [Vitamin B-12] 1,000 mcg PO Q48H 08/06/14 01/18/17 Gabapentin [Neurontin] 300 mg PO BID@0900,1700 07/21/16 01/18/17 Loratadine [Claritin] 10 mg PO DAILY 07/21/16 01/18/17 Sennosides [Senna] 8.6 mg PO BID@0900,1700 07/21/16 01/18/17 Nitroglycerin Sl Tabs [Nitrostat] 0.4 mg SUBLINGUAL Q5M PRN 07/22/16 01/18/17 Aspirin EC [Ecotrin Low Dose] 81 mg PO DAILY 07/27/16 01/18/17 Calcium Carbonate [Tums] 500 mg PO TID PRN 07/27/16 01/18/17 QUEtiapine [SEROquel] 400 mg PO HS 07/27/16 01/18/17 Albuterol Nebulized [Ventolin 2.5 mg INHALATION RT-Q6H PRN 12/30/16 01/18/17 Nebulized] Amino Acids/Protein Hydrolys 30 ml PO BID 12/30/16 01/18/17 [Pro-Stat Supplement] Atorvastatin [Lipitor] 10 mg PO HS 12/30/16 01/18/17 Calamine/Zinc Oxide Lotion 1 applic TOPICAL Q6H PRN 12/30/16 01/18/17 [Calamine Lotion] Ferrous Sulfate [Iron (65 MG 325 mg PO DAILY@1700 12/30/16 01/18/17 Elemental)] Omeprazole 20 mg PO AC-BRKFST 12/30/16 01/18/17 Ondansetron [Zofran] 4 mg PO Q8HR PRN 12/30/16 01/18/17 Vit C/E/Zn/Coppr/Lutein/Zeaxan 1 cap PO DAILY 12/30/16 01/18/17 [Preservision Areds 2 Softgel] Acetaminophen [Tylenol] 650 mg PO Q4H PRN 01/18/17 01/18/17 Previous Rx's Medication Instructions Recorded Budesonide [Pulmicort] 0.5 mg INHALATION RT-BID neb 12/21/16 Metoprolol Tartrate [Lopressor] 25 mg PO TID tab 12/21/16 Acetaminophen-Codeine 300-30mg 1 tab PO Q8H PRN #30 01/15/17 [Tylenol w/codeine #3] Apixaban [Eliquis] 5 mg PO BID tab 01/15/17 Digoxin [Lanoxin] 125 mcg PO DAILY tab 01/15/17 Oxybutynin Chloride [Ditropan] 5 mg PO BID tab 01/15/17 Piperacillin-Tazobactam [Zosyn] 3.375 gm IVPB Q8HR #30 bag 01/15/17 Polyethylene Glycol 3350 [Miralax] 17 gm PO HS pack 01/15/17 Allergies Allergy/AdvReac Type Severity Reaction Status Date / Time bee venom protein (honey bee) Allergy Anaphylaxis Verified 12/30/16 06:57 lorazepam [From Ativan] Allergy Unknown Verified 01/18/17 22:22 Review of Systems ROS Statement: Those systems with pertinent positive or pertinent negative responses have been documented in the HPI. ROS Other: All systems not noted in ROS Statement are negative. Past Medical History Past Medical History: Asthma, Coronary Artery Disease (CAD), Cancer, Chest Pain / Angina, CVA/TIA, Eye Disorder, GERD/Reflux, Hyperlipidemia, Hypertension Additional Past Medical History / Comment(s): Bronchial asthma, obesity, chronic lower extremity edema, L axillae cellulitis/abscess-cultures grew peptostreptococcus and MSSA-had I&D and has wound vac. 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, R eye macular degeneration, bronchial asthma, TIA, hiatal hernia, uterine cancer with hysterectomy, tardive dyskinesia, peripheral neuropathy cause unknown, migraines, sinus problems him a coronary artery disease with 50% lesion of the LAD, paroxysmal atrial fibrillation, hypertension , acid reflux, schizophrenic disorder, anxiety, peripheral neuropathy History of Any Multi-Drug Resistant Organisms: None Reported Past Surgical History: Adenoidectomy, Back Surgery, Cholecystectomy, Ear Surgery , Heart Catheterization, Hysterectomy, Tonsillectomy Additional Past Surgical History / Comment(s): I & D L axillae, L eye surgery for laxy eye, bilateral cataract removal, bilateral myringotomy/tubes, colonoscopy, cardiac cath on 07/24/2016 with moderate stenosis of LAD noted - no stenting at that time recommend medical management and return for angioplasty if sx persist Past Anesthesia/Blood Transfusion Reactions: No Reported Reaction Past Psychological History: Anxiety, Depression, Schizoaffective Disorder Smoking Status: Never smoker Past Alcohol Use History: None Reported Past Drug Use History: None Reported - Past Family History Mother Family Medical History: Myocardial Infarction ([place]) Additional Family Medical History / Comment(s): Mother at 72 yrs. Father Family Medical History: Cancer Additional Family Medical History / Comment(s): throat CA. Father at 72 yrs. Brother(s) Family Medical History: Cancer Additional Family Medical History / Comment(s): liver General Exam - General Exam Comments Initial Comments: GENERAL: The patient is well nourished and well hydrated. VITAL SIGNS: Heart rate, blood pressure, respiratory rate reviewed as recorded in nurse's notes. EYES: Pupils are round and reactive. Extraocular movements are intact. No conjunctival / lid redness or swelling. ENT: No external evidence of injury, swelling, or ecchymosis. Airway is patent. Throat is clear. NECK: Nontender. No swelling or evidence of injury. No subcutaneous emphysema. Trachea is midline. No thyroid mass. HEART: Regular rate and rhythm. Good peripheral pulses. LUNGS/CHEST: Breath sounds clear and equal bilaterally. No rales, rhonchi, or wheezes. No ecchymosis, subcutaneous emphysema, or tenderness. ABDOMEN: Abdomen soft without tenderness. No palpable masses or organomegaly. No peritoneal signs. No abdominal wall swelling or ecchymosis. EXTREMITIES: No extremity tenderness. Normal muscle tone and function. No thoracolumbar tenderness. NEUROLOGIC: Sensation is grossly intact. Cranial nerve exam reveals face is symmetrical, tongue is midline, speech is clear. SKIN: No abrasions or ecchymosis is noted. There is a wound VAC noted to the left upper chest. There is some surrounding erythema laterally. There is some mild fluid drainage which is clear in nature. PSYCHIATRIC: Alert and oriented. Appropriate behavior and judgment. Limitations: no limitations Course Vital Signs 01/18/17 21:45 Temperature 101 F H Pulse Rate 78 Respiratory 20 Rate Blood Pressure 99/56 O2 Sat by Pulse 97 Oximetry Medical Decision Making - Medical Decision Making The patient was seen and examined. All diagnostics were reviewed. The patient had a temperature of 101 and receives some Tylenol. Levaquin was given empirically intravenously. A type and screen is process. The hemoglobin is low at 6.8 and she is transfused 1 unit of packed red blood cells. Her urine does show significant evidence of urinary tract infection and a culture is taken. The laboratory also shows a significant decrease in her magnesium and this is replaced. There are other incidental abnormalities in her labs. The Hemoccult test was positive. This felt as though her anemia may be related to a GI bleed. Her fever is likely due to the urinary tract infection with indwelling Bell catheter. The possibility of this being related to her left chest wall and certainly is possible as well. Overall, it is felt as though she would require admission to the hospital for further treatment. She is agreeable. Case will be discussed with internal medicine in the near future. - Lab Data Result diagrams: 01/18/17 21:55 01/18/17 21:55 Lab Results 01/18/17 01/18/17 01/18/17 Range/Units 21:55 21:55 21:55 WBC 4.7 (3.8-10.6) k/uL RBC 2.18 L (3.80-5.40) m/uL Hgb 6.8 L* (11.4-16.0) gm/dL Hct 21.9 L (34.0-46.0) % MCV 100.8 H (80.0-100.0) fL MCH 31.4 (25.0-35.0) pg MCHC 31.2 (31.0-37.0) g/dL RDW 16.1 H (11.5-15.5) % Plt Count 383 (150-450) k/uL Neutrophils % 49 % Lymphocytes % 39 % Monocytes % 6 % Eosinophils % 2 % Basophils % 1 % Neutrophils # 2.3 (1.3-7.7) k/uL Lymphocytes # 1.8 (1.0-4.8) k/uL Monocytes # 0.3 (0-1.0) k/uL Eosinophils # 0.1 (0-0.7) k/uL Basophils # 0.0 (0-0.2) k/uL Hypochromasia Slight Anisocytosis Slight Macrocytosis Slight PT (9.0-12.0) sec INR (<1.2) APTT (22.0-30.0) sec Sodium 137 (137-145) mmol/L Potassium 4.4 (3.5-5.1) mmol/L Chloride 104 (98-107) mmol/L Carbon Dioxide 30 (22-30) mmol/L Anion Gap 3 mmol/L BUN 27 H (7-17) mg/dL Creatinine 0.90 (0.52-1.04) mg/dL Est GFR (MDRD) Af Amer >60 (>60 ml/min/1.73 sqM) Est GFR (MDRD) Non-Af >60 (>60 ml/min/1.73 sqM) Glucose 107 H (74-99) mg/dL Calcium 8.0 L (8.4-10.2) mg/dL Phosphorus 4.0 (2.5-4.5) mg/dL Magnesium 1.3 L (1.6-2.3) mg/dL Total Bilirubin <0.1 L (0.2-1.3) mg/dL AST 27 (14-36) U/L ALT 27 (9-52) U/L Alkaline Phosphatase 95 (38-126) U/L Total Creatine Kinase <20 L (30-135) U/L CK-MB (CK-2) 0.5 (0.0-2.4) ng/mL CK-MB (CK-2) Rel Index Troponin I <0.012 (0.000-0.034) ng/mL Total Protein 4.7 L (6.3-8.2) g/dL Albumin 1.9 L (3.5-5.0) g/dL Urine Color Urine Appearance (Clear) Urine pH (5.0-8.0) Ur Specific [place] (1.001-1.035) Urine Protein (Negative) Urine Glucose (UA) (Negative) Urine Ketones (Negative) Urine Blood (Negative) Urine Nitrite (Negative) Urine Bilirubin (Negative) Urine Urobilinogen (<2.0) mg/dL Ur Leukocyte Esterase (Negative) Urine RBC (0-5) /hpf Urine WBC (0-5) /hpf Urine Mucus (None) /hpf Stool Occult Blood (Negative) Digoxin 1.0 ng/mL Blood Type Blood Type Recheck Antibody Screen Spec Expiration Date 01/18/17 01/18/17 01/18/17 Range/Units 21:55 21:55 21:55 WBC (3.8-10.6) k/uL RBC (3.80-5.40) m/uL Hgb (11.4-16.0) gm/dL Hct (34.0-46.0) % MCV (80.0-100.0) fL MCH (25.0-35.0) pg MCHC (31.0-37.0) g/dL RDW (11.5-15.5) % Plt Count (150-450) k/uL Neutrophils % % Lymphocytes % % Monocytes % % Eosinophils % % Basophils % % Neutrophils # (1.3-7.7) k/uL Lymphocytes # (1.0-4.8) k/uL Monocytes # (0-1.0) k/uL Eosinophils # (0-0.7) k/uL Basophils # (0-0.2) k/uL Hypochromasia Anisocytosis Macrocytosis PT 11.2 (9.0-12.0) sec INR 1.1 (<1.2) APTT 25.5 (22.0-30.0) sec Sodium (137-145) mmol/L Potassium (3.5-5.1) mmol/L Chloride (98-107) mmol/L Carbon Dioxide (22-30) mmol/L Anion Gap mmol/L BUN (7-17) mg/dL Creatinine (0.52-1.04) mg/dL Est GFR (MDRD) Af Amer (>60 ml/min/1.73 sqM) Est GFR (MDRD) Non-Af (>60 ml/min/1.73 sqM) Glucose (74-99) mg/dL Calcium (8.4-10.2) mg/dL Phosphorus (2.5-4.5) mg/dL Magnesium (1.6-2.3) mg/dL Total Bilirubin (0.2-1.3) mg/dL AST (14-36) U/L ALT (9-52) U/L Alkaline Phosphatase (38-126) U/L Total Creatine Kinase (30-135) U/L CK-MB (CK-2) (0.0-2.4) ng/mL CK-MB (CK-2) Rel Index Troponin I (0.000-0.034) ng/mL Total Protein (6.3-8.2) g/dL Albumin (3.5-5.0) g/dL Urine Color Yellow Urine Appearance Cloudy H (Clear) Urine pH 6.5 (5.0-8.0) Ur Specific [place] 1.013 (1.001-1.035) Urine Protein 1+ H (Negative) Urine Glucose (UA) Negative (Negative) Urine Ketones Negative (Negative) Urine Blood Large H (Negative) Urine Nitrite Negative (Negative) Urine Bilirubin Negative (Negative) Urine Urobilinogen <2.0 (<2.0) mg/dL Ur Leukocyte Esterase Large H (Negative) Urine RBC >182 H (0-5) /hpf Urine WBC 79 H (0-5) /hpf Urine Mucus Rare H (None) /hpf Stool Occult Blood (Negative) Digoxin ng/mL Blood Type O Positive Blood Type Recheck No Antibody Screen NEGATIVE Spec Expiration Date 01/21/2017 - 235401/18/17 Range/Units 23:00 WBC (3.8-10.6) k/uL RBC (3.80-5.40) m/uL Hgb (11.4-16.0) gm/dL Hct (34.0-46.0) % MCV (80.0-100.0) fL MCH (25.0-35.0) pg MCHC (31.0-37.0) g/dL RDW (11.5-15.5) % Plt Count (150-450) k/uL Neutrophils % % Lymphocytes % % Monocytes % % Eosinophils % % Basophils % % Neutrophils # (1.3-7.7) k/uL Lymphocytes # (1.0-4.8) k/uL Monocytes # (0-1.0) k/uL Eosinophils # (0-0.7) k/uL Basophils # (0-0.2) k/uL Hypochromasia Anisocytosis Macrocytosis PT (9.0-12.0) sec INR (<1.2) APTT (22.0-30.0) sec Sodium (137-145) mmol/L Potassium (3.5-5.1) mmol/L Chloride (98-107) mmol/L Carbon Dioxide (22-30) mmol/L Anion Gap mmol/L BUN (7-17) mg/dL Creatinine (0.52-1.04) mg/dL Est GFR (MDRD) Af Amer (>60 ml/min/1.73 sqM) Est GFR (MDRD) Non-Af (>60 ml/min/1.73 sqM) Glucose (74-99) mg/dL Calcium (8.4-10.2) mg/dL Phosphorus (2.5-4.5) mg/dL Magnesium (1.6-2.3) mg/dL Total Bilirubin (0.2-1.3) mg/dL AST (14-36) U/L ALT (9-52) U/L Alkaline Phosphatase (38-126) U/L Total Creatine Kinase (30-135) U/L CK-MB (CK-2) (0.0-2.4) ng/mL CK-MB (CK-2) Rel Index Troponin I (0.000-0.034) ng/mL Total Protein (6.3-8.2) g/dL Albumin (3.5-5.0) g/dL Urine Color Urine Appearance (Clear) Urine pH (5.0-8.0) Ur Specific [place] (1.001-1.035) Urine Protein (Negative) Urine Glucose (UA) (Negative) Urine Ketones (Negative) Urine Blood (Negative) Urine Nitrite (Negative) Urine Bilirubin (Negative) Urine Urobilinogen (<2.0) mg/dL Ur Leukocyte Esterase (Negative) Urine RBC (0-5) /hpf Urine WBC (0-5) /hpf Urine Mucus (None) /hpf Stool Occult Blood Positive H (Negative) Digoxin ng/mL Blood Type Blood Type Recheck Antibody Screen Spec Expiration Date Disposition Clinical Impression: Anemia, Fever, Cough, UTI (urinary tract infection), Open chest wound, Chronic indwelling Bell catheter, Hypomagnesemia Disposition: ADMITTED IP TO THIS HOSP Condition: Fair Time of Disposition: 23:14 Decision Date: 01/18/17 Decision Time: 23:14
[2017-01-18 22:51] LABS: Appearance,Urine Cloudy (Clear); Bilirubin,Urine Negative (Negative); Glucose,Urine (UA) Negative (Negative); Ketones,Urine Negative (Negative); Leukocyte Esterase,Urine Large (Negative); Mucus,Urine Rare /hpf; Nitrite,Urine Negative (Negative); PH, Urine 6.5 (5.0-8.0); Particle Count 3179; Protein,Urine 1+ (Negative); RBC,Urine >182 /hpf (0-5); Specific Gravity,Urine 1.013 (1.001-1.035); UA Billing (MACRO vs. MICRO) MICRO; Urobilinogen,Urine <2.0 mg/dL (<2.0); WBC,Urine 79 /hpf (0-5)
[2017-01-18 22:55] LABS: Anisocytosis Slight; Basophils % (A) 1 %; CH 31.8; CHCM 31.7; Eosinophils # (A) 0.1 k/uL (0-0.7); Eosinophils % (A) 2 %; HCT 21.9 % (34.0-46.0); HDW 2.86; Hypochromasia Slight; Luc # (Auto) 0.15; Luc % (Auto) 3; Lymphocytes # (A) 1.8 k/uL (1.0-4.8); Lymphocytes % (A) 39 %; MCH 31.4 pg (25.0-35.0); MCHC 31.2 g/dL (31.0-37.0); MCV 100.8 fL (80.0-100.0); Macrocytosis Slight; Monocytes # (A) 0.3 k/uL (0-1.0); Monocytes % (A) 6 %; Neutrophils # (A) 2.3 k/uL (1.3-7.7); Neutrophils % (A) 49 %; RBC 2.18 m/uL (3.80-5.40); RDW 16.1 % (11.5-15.5); WBC 4.7 k/uL (3.8-10.6); WBC (Perox) 4.71
[2017-01-18 22:59] LABS: INR 1.1 (<1.2); Partial Thromboplastin Time 25.5 sec (22.0-30.0); Prothrombin Time 11.2 sec (9.0-12.0)
[2017-01-18 23:01] LABS: HGB 6.8 gm/dL (11.4-16.0)
[2017-01-18 23:10] LABS: ALT 27 U/L (9-52); AST 27 U/L (14-36); Alkaline Phosphatase 95 U/L (38-126); Anion Gap 3 mmol/L; Blood Urea Nitrogen 27 mg/dL (7-17); Carbon Dioxide 30 mmol/L (22-30); Chloride 104 mmol/L (98-107); Glucose 107 mg/dL (74-99); Magnesium 1.3 mg/dL (1.6-2.3); Non-African American GFR(MDRD) >60 (>60 ml/min/1.73 sqM); Potassium 4.4 mmol/L (3.5-5.1); Sodium 137 mmol/L (137-145); Total Bilirubin <0.1 mg/dL (0.2-1.3); Total Protein 4.7 g/dL (6.3-8.2)
[2017-01-18 23:14] LABS: Creatine Kinase <20 U/L (30-135)
[2017-01-18 23:26] LABS: Creatine Kinase MB 0.5 ng/mL (0.0-2.4); Troponin I <0.012 ng/mL (0.000-0.034)
[2017-01-18] MEDS ORDERED: NALOXONE 0.4 MG/ML 1 ML VIAL IV PRN (23:51)
[2017-01-18] MEDS ORDERED: ONDANSETRON 4 MG/2 ML VIAL IVP PRN (23:51)
[2017-01-18] MEDS ORDERED: ACETAMINOPHEN TAB 325 MG TAB PO PRN ×2 (23:51→23:54)
[2017-01-18] MEDS ORDERED: CALAMINE/ZINC OXIDE LOTION 177 ML BTL TOPICAL PRN (23:54)
[2017-01-18] MEDS ORDERED: CALCIUM CARBONATE 500 MG CHEWABLE PO PRN (23:54)
[2017-01-18] MEDS ORDERED: NITROGLYCERIN SL TABS 0.4 MG TAB SUBLINGUAL PRN (23:54)
[2017-01-19] MEDS ORDERED: PIPERACILLIN-TAZOBACTAM 3.375 GM VIAL IVPB SCH
[2017-01-19] MEDS ORDERED: SODIUM CHLORIDE 0.9% 1,000 ML IV STA (00:05)
[2017-01-19] MEDS: MAGNESIUM SULFATE-D5W PMX 1 GM in DEXTROSE/WATER 1 100ML.BAG IVPB SCH ×2 (00:16→02:44)
--- NOTE | 2017-01-19 00:20 | XR ---
EXAM: XR Chest, 2 Views CLINICAL HISTORY: Reason: Weakness TECHNIQUE: Frontal and lateral views of the chest. COMPARISON: 12/16/2016. FINDINGS: Lungs: Findings suggestive of mild pulmonary edema. Left lower lobe airspace disease is again seen, interval improvement since prior study. Pleural space: Probable small left pleural effusion. No pneumothorax. Heart: Unremarkable. No cardiomegaly. Mediastinum: Unremarkable. Bones/joints: Unchanged. Tubes, lines and devices: Right-sided central venous line is seen with tip overlying SVC. IMPRESSION: 1. Airspace disease involving the left lower lobe, likely representing pneumonia, interval improvement since prior study. 2. Findings suggestive of mild pulmonary edema.
[2017-01-19] MEDS: PIPERACILLIN-TAZOBACTAM 3.375 GM in DEXTROSE/WATER 1 50ML.BAG IVPB SCH ×4 (00:43→23:19)
[2017-01-19] MEDS: CYANOCOBALAMIN 500 MCG TAB PO SCH (04:57)
[2017-01-19 06:39] LABS: Anisocytosis Slight; CH 31.6; CHCM 32.4; HCT 24.2 % (34.0-46.0); HGB 8.1 gm/dL (11.4-16.0); Hypochromasia Slight; MCH 32.9 pg (25.0-35.0); MCHC 33.5 g/dL (31.0-37.0); MCV 98.1 fL (80.0-100.0); Macrocytosis Slight; Mean Platelet Volume 7.1; RBC 2.47 m/uL (3.80-5.40); RDW 16.3 % (11.5-15.5); WBC 5.9 k/uL (3.8-10.6); WBC (Perox) 5.83
[2017-01-19 06:58] LABS: Anion Gap 3 mmol/L; Blood Urea Nitrogen 26 mg/dL (7-17); Calcium 7.8 mg/dL (8.4-10.2); Carbon Dioxide 28 mmol/L (22-30); Chloride 109 mmol/L (98-107); Glucose 76 mg/dL (74-99); Magnesium 1.9 mg/dL (1.6-2.3); Non-African American GFR(MDRD) >60 (>60 ml/min/1.73 sqM); Phosphorous 3.9 mg/dL (2.5-4.5); Potassium 4.3 mmol/L (3.5-5.1); Sodium 140 mmol/L (137-145)
[2017-01-19] MEDS: ALBUTEROL NEBULIZED 2.5 MG/3 ML INHALATION PRN ×2 (07:15→20:17)
[2017-01-19] MEDS: BUDESONIDE 0.5 MG/2 ML NEBU INHALATION SCH ×2 (07:15→20:17)
[2017-01-19 07:57] LABS: Add Differential Manual Differential; Manual Review Performed
[2017-01-19 08:01] LABS: Band Neutrophils % 1 %; Metamyelocytes % 1 %; Myelocytes % 2 %; Nucleated Red Blood Cells 0 /100 WBC (0-0); Total Cells Counted 200
[2017-01-19] MEDS ORDERED: NON-FORMULARY DRUG (Amino Acids/Protein Hydrolys [Pro-Stat Supplement] 30 ML) PO SCH (09:00)
[2017-01-19] MEDS: CHOLECALCIFEROL 1,000 UNIT TAB PO SCH (09:01)
[2017-01-19] MEDS: FERROUS SULFATE 325 MG TAB PO SCH (09:01)
[2017-01-19] MEDS: VIT A,C & E-LUTEIN-MINERALS 1 EACH TAB PO SCH (09:01)
[2017-01-19] MEDS: OXYBUTYNIN CHLORIDE 5 MG TAB PO SCH ×2 (09:01→19:58)
[2017-01-19] MEDS: GABAPENTIN 300 MG CAP PO SCH ×2 (09:01→16:33)
[2017-01-19] MEDS: DIGOXIN 125 MCG TAB PO SCH (09:02)
[2017-01-19] MEDS: LORATADINE 10 MG TAB PO SCH (09:02)
[2017-01-19] MEDS: CITALOPRAM HYDROBROMIDE 20 MG TAB PO SCH (09:02)
[2017-01-19] MEDS: METOPROLOL TARTRATE 25 MG TAB PO SCH ×3 (09:02→20:00)
[2017-01-19] MEDS: PANTOPRAZOLE 40 MG/10 ML VIAL IV SCH (09:18)
[2017-01-19] MEDS: LEVOFLOXACIN 750MG-D5W PMX 750 MG in DEXTROSE/WATER 1 150ML.BAG IVPB SCH (09:18)
[2017-01-19] MEDS: SENNOSIDES 8.6 MG TAB PO SCH ×2 (09:19→16:34)
[2017-01-19 10:18] VITALS: BMI 39.7
--- NOTE | 2017-01-19 11:00 | P.CONS ---
History of Present Illness - Reason for Consult Consult date: 01/19/17 GI bleed Requesting physician: Marvin Elizabeth - History of Present Illness 61-year-old female PMH paroxysmal atrial fibrillation, CAD, GERD, hypertension, hyperlipidemia schizophrenia, MSSA, herpes zoster type II, left axilla abscess status post I & D 12/16/16 presents to the hospital with a low hemoglobin and fever of 101. Consult for evaluation of GI bleed. Recently hospitalized and discharged on 01/15 small bowel obstruction versus ileus development of shingles and ongoing left axilla wound possible aspiration pneumonia. Admission hemoglobin and 6.6. MCV 103. Platelets 327. INR 1.1. BUN 27. Creatinine 0.9. Platelets 327. Upon review of previous medical records over the last few weeks hemoglobin was as low as 6.9 on 01/12/2017 but on average between 8-10. She was discharged on Eliquis and aspirin. Stool occult blood positive. Last dose of Eliquis 01/18. She denies overt GI bleeding such as hematemesis hematochezia melena. CT abdomen and pelvis 01/03/2017 reported a very distended bladder. No significant abnormalities seen in the bowel. History of colonoscopy several years ago no EGD. Denies abdominal pain. No history of GI bleed. Review of Systems Constitutional: Denies fever, chills, sweats, weight gain, or loss. HEENT: Negative for migraines, blurred vision or loss, earaches, drainage, tinnitus, oral mucosal lesions, dysphagia, or odynophagia. CARDIAC: CAD. Paroxysmal atrial fibrillation. Negative for chest pain, arrhythmias, or palpitation. RESPIRATORY: Asthma. Negative for shortness of breath, hemoptysis, cough, or sputum production. GI: See HPI for pertinent findings. : Negative for hematuria, urgency, frequency, polyuria, or dysuria. GYNc: Denies possibility of . Negative vaginal discharge. MUSCULOSKELETAL: Peripheral neuropathy. Negative for muscle aches, swelling, arthritis, and arthralgias. NEUROLOGIC: CVA/TIA. ENDOCRINE: Negative for thyroid problems. SKIN: Shingles. Negative for rash or itching. PSYCHIATRIC: Anxiety. Schizophrenia. All systems: negative (See HPI) Past Medical History Past Medical History: Asthma, Coronary Artery Disease (CAD), Cancer, Chest Pain / Angina, CVA/TIA, Eye Disorder, GERD/Reflux, Hyperlipidemia, Hypertension Additional Past Medical History / Comment(s): Bronchial asthma, obesity, chronic lower extremity edema, L axillae cellulitis/abscess-cultures grew peptostreptococcus and MSSA-had I&D and has wound vac. 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, R eye macular degeneration, bronchial asthma, TIA, hiatal hernia, uterine cancer with hysterectomy, tardive dyskinesia, peripheral neuropathy cause unknown, migraines, sinus problems him a coronary artery disease with 50% lesion of the LAD, paroxysmal atrial fibrillation, hypertension , acid reflux, schizophrenic disorder, anxiety, peripheral neuropathy History of Any Multi-Drug Resistant Organisms: None Reported Past Surgical History: Adenoidectomy, Back Surgery, Cholecystectomy, Ear Surgery , Heart Catheterization, Hysterectomy, Tonsillectomy Additional Past Surgical History / Comment(s): I & D L axillae, L eye surgery for laxy eye, bilateral cataract removal, bilateral myringotomy/tubes, colonoscopy, cardiac cath on 07/24/2016 with moderate stenosis of LAD noted - no stenting at that time recommend medical management and return for angioplasty if sx persist Past Anesthesia/Blood Transfusion Reactions: No Reported Reaction Past Psychological History: Anxiety, Depression, Schizoaffective Disorder Additional Psychological History / Comment(s): Is normally a resident of a retirement Smoking Status: Never smoker Past Alcohol Use History: None Reported Additional Past Alcohol Use History / Comment(s): Pt states she used to drink occasionally but has not had any alcohol since 2006. Denies alcoholism. Past Drug Use History: None Reported - Past Family History Mother Family Medical History: Myocardial Infarction (AR) Additional Family Medical History / Comment(s): Mother at 72 yrs. Father Family Medical History: Cancer Additional Family Medical History / Comment(s): throat CA. Father at 72 yrs. Brother(s) Family Medical History: Cancer Additional Family Medical History / Comment(s): liver Medications and Allergies Home Medications Medication Instructions Recorded Confirmed Type Cholecalciferol [Vitamin D3] 2,000 unit PO DAILY 08/06/14 01/18/17 History Citalopram Hydrobromide 40 mg PO DAILY 08/06/14 01/18/17 History [Citalopram HBr] Cyanocobalamin [Vitamin B-12] 1,000 mcg PO Q48H 08/06/14 01/18/17 History Gabapentin [Neurontin] 300 mg PO BID@0900,1700 07/21/16 01/18/17 History Loratadine [Claritin] 10 mg PO DAILY 07/21/16 01/18/17 History Sennosides [Senna] 8.6 mg PO BID@0900,1700 07/21/16 01/18/17 History Nitroglycerin Sl Tabs [Nitrostat] 0.4 mg SUBLINGUAL Q5M PRN 07/22/16 01/18/17 History Aspirin EC [Ecotrin Low Dose] 81 mg PO DAILY 07/27/16 01/18/17 History Calcium Carbonate [Tums] 500 mg PO TID PRN 07/27/16 01/18/17 History QUEtiapine [SEROquel] 400 mg PO HS 07/27/16 01/18/17 History Albuterol Nebulized [Ventolin 2.5 mg INHALATION RT-Q6H PRN 12/30/16 01/18/17 History Nebulized] Amino Acids/Protein Hydrolys 30 ml PO BID 12/30/16 01/18/17 History [Pro-Stat Supplement] Atorvastatin [Lipitor] 10 mg PO HS 12/30/16 01/18/17 History Calamine/Zinc Oxide Lotion 1 applic TOPICAL Q6H PRN 12/30/16 01/18/17 History [Calamine Lotion] Ferrous Sulfate [Iron (65 MG 325 mg PO DAILY@1700 12/30/16 01/18/17 History Elemental)] Omeprazole 20 mg PO AC-BRKFST 12/30/16 01/18/17 History Ondansetron [Zofran] 4 mg PO Q8HR PRN 12/30/16 01/18/17 History Vit C/E/Zn/Coppr/Lutein/Zeaxan 1 cap PO DAILY 12/30/16 01/18/17 History [Preservision Areds 2 Softgel] Acetaminophen [Tylenol] 650 mg PO Q4H PRN 01/18/17 01/18/17 History Allergies Allergy/AdvReac Type Severity Reaction Status Date / Time bee venom protein (honey bee) Allergy Anaphylaxis Verified 12/30/16 06:57 lorazepam [From Ativan] Allergy Unknown Verified 01/18/17 22:22 Physical Exam Vitals: Vital Signs Temp Pulse Pulse Resp BP BP Pulse Ox 01/19/17 07:17 80 01/19/17 04:23 97.0 F L 62 17 84/48 98 01/19/17 04:19 97.0 F L 61 18 94/49 94 L 01/19/17 02:26 98 F 73 16 91/50 97 01/19/17 02:09 97.9 F 73 16 91/50 01/19/17 01:47 98.6 F 66 18 84/54 01/19/17 01:13 97.9 F 64 18 100/52 96 01/19/17 00:41 66 18 91/52 96 01/19/17 00:18 80 18 88/55 96 01/18/17 23:57 99.0 F 93 18 80/51 96 01/18/17 21:45 101 F H 78 20 99/56 97 Intake and Output 01/18/17 01/19/17 01/19/17 22:59 06:59 14:59 Intake Total 1060 Balance 1060 Intake: Intake, IV Titration 700 Amount Levofloxacin 750Mg-D5w 150 Pmx 750 mg In Dextrose/ Water 1 150ml.bag @ 100 mls/hr IVPB DAILY [facility] Rx# :[id number] Magnesium Sulfate-D5w Pmx 200 1 gm In Dextrose/Water 1 100ml.bag @ 100 mls/hr IVPB Q1H [facility] Rx#: [id number] Piperacillin-Tazobactam 3 50 .375 gm In Dextrose/Water 1 50ml.bag @ 12.5 mls/hr IVPB Q8HR [facility] Rx#: [id number] Sodium Chloride 0.9% 1, 300 000 ml @ 100 mls/hr IV . Q10H [facility] Rx#:[id number] Blood Product 310 Rc As-1 Unit 310 [id number] Other 50 Rc As-1 Unit 50 [id number] Other: Voiding Method Indwelling Catheter Weight 99.337 kg 105 kg General appearance: The patient is alert, oriented, in no acute distress. HET: Head is normocephalic and atraumatic. Pupils are equal and reactive. Oropharynx is clear without lesions. Neck: Supple without lymphadenopathy. Trachea midline. Heart: S1 S2. Regular rate and rhythm. Lungs: No crackles or wheezes are heard. Abdomen: Soft, nontender, nondistended with bowel sounds. No peritoneal signs. No palpable organomegaly or masses. Extremities: Left upper extremity +3 edema. Left axillary wound with packing dressing serosanguineous fluid. Bell with clear bruce urine. Radial pedal pulses palpable 2/4 bilaterally. Neurological: No focal deficits. Strength and sensation are grossly intact. Results CBC & Chem 7: 01/20/17 05:50 01/20/17 05:50 Labs: Abnormal Lab Results - Last 24 Hours (Table) 01/18/17 01/18/17 01/18/17 Range/Units 21:55 21:55 21:55 RBC 2.18 L (3.80-5.40) m/uL Hgb 6.8 L* (11.4-16.0) gm/dL Hct 21.9 L (34.0-46.0) % MCV 100.8 H (80.0-100.0) fL RDW 16.1 H (11.5-15.5) % Chloride (98-107) mmol/L BUN 27 H (7-17) mg/dL Glucose 107 H (74-99) mg/dL Calcium 8.0 L (8.4-10.2) mg/dL Magnesium 1.3 L (1.6-2.3) mg/dL Total Bilirubin <0.1 L (0.2-1.3) mg/dL Total Creatine Kinase <20 L (30-135) U/L Total Protein 4.7 L (6.3-8.2) g/dL Albumin 1.9 L (3.5-5.0) g/dL Urine Appearance (Clear) Urine Protein (Negative) Urine Blood (Negative) Ur Leukocyte Esterase (Negative) Urine RBC (0-5) /hpf Urine WBC (0-5) /hpf Urine Mucus (None) /hpf Stool Occult Blood (Negative) Crossmatch 01/18/17 01/18/17 01/18/17 Range/Units 21:55 21:55 23:00 RBC (3.80-5.40) m/uL Hgb (11.4-16.0) gm/dL Hct (34.0-46.0) % MCV (80.0-100.0) fL RDW (11.5-15.5) % Chloride (98-107) mmol/L BUN (7-17) mg/dL Glucose (74-99) mg/dL Calcium (8.4-10.2) mg/dL Magnesium (1.6-2.3) mg/dL Total Bilirubin (0.2-1.3) mg/dL Total Creatine Kinase (30-135) U/L Total Protein (6.3-8.2) g/dL Albumin (3.5-5.0) g/dL Urine Appearance Cloudy H (Clear) Urine Protein 1+ H (Negative) Urine Blood Large H (Negative) Ur Leukocyte Esterase Large H (Negative) Urine RBC >182 H (0-5) /hpf Urine WBC 79 H (0-5) /hpf Urine Mucus Rare H (None) /hpf Stool Occult Blood Positive H (Negative) Crossmatch See Detail 01/19/17 01/19/17 Range/Units 05:52 05:52 RBC 2.47 L (3.80-5.40) m/uL Hgb 8.1 L (11.4-16.0) gm/dL Hct 24.2 L (34.0-46.0) % MCV (80.0-100.0) fL RDW 16.3 H (11.5-15.5) % Chloride 109 H (98-107) mmol/L BUN 26 H (7-17) mg/dL Glucose (74-99) mg/dL Calcium 7.8 L (8.4-10.2) mg/dL Magnesium (1.6-2.3) mg/dL Total Bilirubin (0.2-1.3) mg/dL Total Creatine Kinase (30-135) U/L Total Protein (6.3-8.2) g/dL Albumin (3.5-5.0) g/dL Urine Appearance (Clear) Urine Protein (Negative) Urine Blood (Negative) Ur Leukocyte Esterase (Negative) Urine RBC (0-5) /hpf Urine WBC (0-5) /hpf Urine Mucus (None) /hpf Stool Occult Blood (Negative) Crossmatch Assessment and Plan (1) Anemia Narrative/Plan: Macrocytic anemia. Possible GI bleed on dual antiplatelet medication and positive Hemoccult testing with suspected component of acute blood loss. Status: Acute (2) Fever Status: Acute (3) Abscess of axilla, left Status: Acute (4) Paroxysmal atrial fibrillation Status: Chronic Plan: 1. Continue to hold Eliquis. Prefer holding Eliquis 48 hours before proceeding with endoscopic exams. Continue aspirin therapy. 2. Liquid diet. CBC monitoring. Iron indices. 3. Tentative plans to proceed with EGD colonoscopy on . The life manager has discussed the risks, benefits and alternative therapies for the above-mentioned procedure and for both sedation/analgesia as well as necessary blood product administration, if indicated, as they pertain to this patient. The patient has indicated understanding and acceptance of the risks and procedures discussed. Thank you for this kind referral and the opportunity to participate in the care of your patient. This consultation was discussed with Dr. Smith. The impression and plan of care have been directed as dictated.
[2017-01-19] MEDS: Acetaminophen-Codeine 300-30mg TAB PO PRN ×2 (12:05→19:59)
[2017-01-19] MEDS: POLYETHYLENE GLYCOL 3350 17 GM POWD.PACK PO SCH (19:58)
[2017-01-19] MEDS: ATORVASTATIN 10 MG TAB PO SCH (19:58)
[2017-01-19] MEDS: QUEtiapine 400 MG TAB PO SCH (19:59)
[2017-01-20 06:23] LABS: Anisocytosis Slight; Basophils % (A) 1 %; CH 31.3; CHCM 32.1; Eosinophils # (A) 0.1 k/uL (0-0.7); Eosinophils % (A) 3 %; HCT 23.3 % (34.0-46.0); HDW 3.37; HGB 7.7 gm/dL (11.4-16.0); Hypochromasia Slight; Luc # (Auto) 0.12; Luc % (Auto) 2; Lymphocytes # (A) 2.3 k/uL (1.0-4.8); Lymphocytes % (A) 44 %; MCH 32.2 pg (25.0-35.0); MCHC 32.9 g/dL (31.0-37.0); MCV 98.1 fL (80.0-100.0); Macrocytosis Slight; Monocytes # (A) 0.4 k/uL (0-1.0); Monocytes % (A) 7 %; Neutrophils # (A) 2.3 k/uL (1.3-7.7); Neutrophils % (A) 44 %; RBC 2.38 m/uL (3.80-5.40); RDW 16.3 % (11.5-15.5); WBC 5.3 k/uL (3.8-10.6); WBC (Perox) 5.51
[2017-01-20 06:50] LABS: Anion Gap 3 mmol/L; Blood Urea Nitrogen 17 mg/dL (7-17); Calcium 7.9 mg/dL (8.4-10.2); Carbon Dioxide 29 mmol/L (22-30); Chloride 110 mmol/L (98-107); Glucose 65 mg/dL (74-99); Non-African American GFR(MDRD) >60 (>60 ml/min/1.73 sqM); Potassium 4.1 mmol/L (3.5-5.1); Sodium 142 mmol/L (137-145)
[2017-01-20] MEDS: DIGOXIN 125 MCG TAB PO SCH (08:08)
[2017-01-20] MEDS: GABAPENTIN 300 MG CAP PO SCH ×2 (08:09→16:04)
[2017-01-20] MEDS: OXYBUTYNIN CHLORIDE 5 MG TAB PO SCH ×2 (08:09→21:11)
[2017-01-20] MEDS: VIT A,C & E-LUTEIN-MINERALS 1 EACH TAB PO SCH (08:09)
[2017-01-20] MEDS: METOPROLOL TARTRATE 25 MG TAB PO SCH ×3 (08:09→21:11)
[2017-01-20] MEDS: SENNOSIDES 8.6 MG TAB PO SCH ×2 (08:09→15:52)
[2017-01-20] MEDS: LORATADINE 10 MG TAB PO SCH (08:09)
[2017-01-20] MEDS: CITALOPRAM HYDROBROMIDE 20 MG TAB PO SCH (08:09)
[2017-01-20] MEDS: CHOLECALCIFEROL 1,000 UNIT TAB PO SCH (08:09)
[2017-01-20] MEDS: PANTOPRAZOLE 40 MG/10 ML VIAL IV SCH (08:11)
[2017-01-20] MEDS: PIPERACILLIN-TAZOBACTAM 3.375 GM in DEXTROSE/WATER 1 50ML.BAG IVPB SCH ×3 (08:12→23:34)
[2017-01-20] MEDS: ALBUTEROL NEBULIZED 2.5 MG/3 ML INHALATION PRN ×2 (08:41→20:27)
[2017-01-20] MEDS: BUDESONIDE 0.5 MG/2 ML NEBU INHALATION SCH ×2 (08:41→20:27)
[2017-01-20] MEDS: Acetaminophen-Codeine 300-30mg TAB PO PRN ×2 (09:43→21:11)
[2017-01-20] MEDS: LEVOFLOXACIN 750MG-D5W PMX 750 MG in DEXTROSE/WATER 1 150ML.BAG IVPB SCH (09:44)
--- NOTE | 2017-01-20 10:46 | P.PN ---
Subjective Principal diagnosis: anemia 61-year-old female admitted with anemia and positive Hemoccult receiving dual antiplatelet therapy. No witnessed episodes of hematemesis hematochezia melena. Denies abdominal pain. Hemoglobin 7.7. Received 1 unit of blood since admission. Objective - Vital Signs Vital signs: Vital Signs Temp 97.5 F L 01/20/17 08:00 Pulse 68 01/20/17 09:00 Resp 16 01/20/17 08:00 BP 106/52 01/20/17 08:00 Pulse Ox 96 01/20/17 08:00 Intake & Output 01/19/17 01/20/17 01/20/17 18:59 06:59 18:59 Intake Total 450 150 Output Total 1200 1425 Balance -750 -1275 Weight 105 kg 104.5 kg Intake: Intake, IV Titration 150 50 Amount Levofloxacin 750Mg-D5w 100 Pmx 750 mg In Dextrose/ Water 1 150ml.bag @ 100 mls/hr IVPB DAILY [facility] Rx# :[id number] Piperacillin-Tazobactam 3 50 50 .375 gm In Dextrose/Water 1 50ml.bag @ 12.5 mls/hr IVPB Q8HR [facility] Rx#: [id number] Oral 300 100 Output: Urine 1200 1425 Other: Voiding Method Indwelling Catheter Indwelling Catheter - Exam General appearance: The patient is alert, oriented, in no acute distress. HET: Head is normocephalic and atraumatic. Pupils are equal and reactive. Oropharynx is clear without lesions. Neck: Supple without lymphadenopathy. Trachea midline. Heart: S1 S2. Regular rate and rhythm. Lungs: No crackles or wheezes are heard. Abdomen: Soft, nontender, nondistended with bowel sounds. No peritoneal signs. No palpable organomegaly or masses. Extremities: Left upper extremity +3 edema. Left axillary wound with packing dressing serosanguineous fluid. Bell with clear bruce urine. Radial pedal pulses palpable 2/4 bilaterally. Neurological: No focal deficits. Strength and sensation are grossly inta - Labs CBC & Chem 7: 01/20/17 05:50 01/20/17 05:50 Labs: Abnormal Lab Results - Last 24 Hours (Table) 01/20/17 01/20/17 Range/Units 05:50 05:50 RBC 2.38 L (3.80-5.40) m/uL Hgb 7.7 L (11.4-16.0) gm/dL Hct 23.3 L (34.0-46.0) % RDW 16.3 H (11.5-15.5) % Chloride 110 H (98-107) mmol/L Glucose 65 L (74-99) mg/dL Calcium 7.9 L (8.4-10.2) mg/dL Microbiology - Last 24 Hours (Table) 01/18/17 21:55 Blood Culture - Preliminary Blood No Growth after 24 hours 01/18/17 21:55 Urine Culture - Preliminary Urine,Catheterized Assessment and Plan (1) Anemia Narrative/Plan: Macrocytic anemia. Possible GI bleed on dual antiplatelet medication and positive Hemoccult testing with suspected component of acute blood loss. Status: Acute (2) Fever Status: Acute (3) Abscess of axilla, left Status: Acute (4) Paroxysmal atrial fibrillation Status: Chronic Plan: 1. EGD colonoscopy tomorrow. Assessment and plan a care discussed with Dr. Smith
--- NOTE | 2017-01-20 13:06 | HP ---
DATE OF ADMISSION: 01/18/2017 PRESENTING COMPLAINT: Low hemoglobin. HISTORY OF PRESENTING COMPLAINT: This is a pleasant patient who was just recently discharged from the hospital on 01/15/17. The patient then was admitted on 12/30/16. The patient was admitted on last admission for acute herpes zoster type 2 on the right chest wall and also had a bowel obstruction for which she had NG tube in for quite some time. Eventually, was tolerating a diet by the time she was discharged. She had received TPN lipids. The patient also has an axilla wound status post I&D with a wound VAC, being followed by Dr. Alvarez. Other stable conditions include coronary artery disease, GERD, hypertension, hyperlipidemia, schizoaffective disorder, anxiety disorder, peripheral neuropathy, acute urinary retention and paroxysmal atrial fibrillation for which she was put on Eliquis. The patient also was getting IV Zosyn. The patient is resident of [facility]. Patient also, when presented, had a fever of 101. The patient is not really much aware of that. No cough. Denied any urinary symptoms. Bowel movements have been good. REVIEW OF SYSTEMS: CONSTITUTIONAL: Tired. HEENT: None. RESPIRATORY: None. CARDIOVASCULAR: None. GASTROINTESTINAL: None. GENITOURINARY: Urinary incontinence. DERMATOLOGIC: Left axilla wound. Right upper chest wall and neck herpes zoster , healing well. LYMPHATICS: None. PSYCHIATRY: Anxiety, schizoaffective disorder. NEUROLOGIC: Peripheral neuropathy. PAST MEDICAL HISTORY: 1. Herpes zoster 2 in the right upper neck and chest wall. 2. Left axilla wound status post I&D. 3. Coronary artery disease with known obstructive 50% LAD lesion. 4. Paroxysmal atrial fibrillation. 5. GERD. 6. Hypertension. 7. Hyperlipidemia. 8. Chronic tardive dyskinesia. 9. Schizoaffective disorder, chronic. 10. Anxiety disorder. 11. Peripheral neuropathy, idiopathic. 12. Right eye macular degeneration. 13. Hiatal hernia. 14. Uterine cancer. 15. Hysterectomy. PAST SURGICAL HISTORY: Adenoidectomy, back surgery, cholecystectomy, cardiac cath, tonsillectomy, left eye surgery for lazy eye, bilateral cataract surgery, bilateral myringotomy with tubes, cardiac cath in July of this year showing 50 % stenosis to LAD. SOCIAL HISTORY: The patient is normally a resident of [facility]. Drinks alcohol occasionally, ( ). No smoking. FAMILY HISTORY: Mother at age of 72 possibly from heart attack. HOME MEDICATIONS: 1. Zofran 4 mg q8 p.r.n. 2. Nitrostat 0.4 sublingual q5 p.r.n. 3. Tylenol 650 mg q4 p.r.n. 4. Vitamin B12 1000 mcg p.o. 48 hours. 5. TUMS 500 mg t.i.d. p.r.n. 6. Calamine lotion, topical, q6 p.r.n. 7. Ventolin 2.5 mg nebulizer q6 p.r.n. 8. Tylenol #3 one tablet q8 p.r.n. 9. Zosyn 3.375 gm IV piggyback q8. 10. Senna 8.6 mg p.o. b.i.d. 11. Lopressor 25 p.o. t.i.d. 12. Ditropan 5 mg p.o. b.i.d. 13. Prostat supplement 30 mL p.o. b.i.d. 14. Neurontin 100 mg p.o. b.i.d. 15. Pulmicort 0.5 mg inhalation b.i.d. 16. Eliquis 5 mg p.o. b.i.d. 17. Preservation one capsule p.o. daily. 18. Seroquel 400 mg p.o. q.h.s. 19. Vitamin D3, 2000 units per daily. 20. Omeprazole 20 mg at breakfast. 21. Claritin 10 mg p.o. daily. 22. MiraLAX 15 gm p.o. q.h.s. 23. Iron 325 mg p.o. daily at 5 p.m. 24. Digoxin 125 mcg p.o. daily. 25. Celexa 40 mg p.o. daily. 26. Lipitor 10 mg p.o. q.h.s. 27. Aspirin 81 mg p.o. daily. ALLERGIES: HONEY BEE AND ATIVAN. PHYSICAL EXAMINATION: VITAL SIGNS ON PRESENTATION: Temperature 101, pulse 78, respirations 20, blood pressure 99/56, pulse ox 97% on 2 liters. GENERAL APPEARANCE: Well built, BMI 39, laying in bed, tired appearing. EYES: Pupils equal. Conjunctivae normal. HENT: Oral cavity dry mucous membranes. NECK: Short, thick. JVD unable to assess. Mass not palpable. RESPIRATORY EFFORT: Normal. LUNGS: Diminished breath sounds. CARDIOVASCULAR: First and second sounds normal. Minimal edema. ABDOMEN: Soft, nontender. Liver and spleen not palpable. LYMPHATIC: No lymph node palpable in the neck. PSYCHIATRY: Alert and oriented x3. Mood and affect were normal. DERMATOLOGIC: Heeled lesions in the right upper chest wall from herpes zoster and wound in the left axilla. INVESTIGATIONS; White count 4.7, hemoglobin 6.8, platelets 383. Potassium 4.4 , BUN 27, creatinine 0.90. UA positive. Stool occult positive. Urine culture pending. Patient's culture from 12/30/16, left axilla had grown catherine, Enterococcus faecalis and staph aureus. ASSESSMENT: 1. Acute blood loss anemia, likely gastrointestinal. Patient has been on Eliquis. Requiring blood transfusion, one unit of blood was given. 2. Recent herpes zoster 2 on the right neck and right upper chest wall, now healed. 3. Left axilla wound status post incision and drainage, growing multiple organisms. Has been on wound VAC. 4. Coronary artery disease, nonobstructive 50% left anterior descending lesion. 5. Paroxysmal atrial fibrillation. 6. Gastroesophageal reflux disease. 7. Essential hypertension. 8. Hyperlipidemia. 9. Chronic tardive dyskinesia. 10. Schizophrenia disorder, chronic. 11. Anxiety disorder, not otherwise specified. 12. Peripheral neuropathy, idiopathic. 13. Obesity, body mass index 39.7. 14. Febrile. This well could be from a urinary tract infection. PLAN: Home medications are resumed. Patient is on IV Zosyn and Levaquin. Consultation to GI and infectious disease have been made. Care was discussed with the patient. Overall prognosis guarded. MTDD
[2017-01-20 13:51] LABS: % Iron Saturation 23.2 % (20-50)
[2017-01-20] MEDS ORDERED: PEG 3350-NA SULF,BICARB,CL/KCL 4,000 ML BOTTLE PO ONE (14:00)
--- NOTE | 2017-01-20 15:26 | P.CONS ---
History of Present Illness - Reason for Consult Consult date: 01/20/17 Wound care - History of Present Illness 61-year-old female recently hospitalized from December 29 through January 15 for her significant abscess to her left axillary area status post incision and drainage. Patient was discharged with a PICC line in place to the right arm and on Zosyn to complete another 10 days. Patient return to [facility] emergency center due to low hemoglobin which was 6.3 at [facility]. Upon arrival to [facility] and hostile she is found to have a fever of 101, white count was 4.7. Urinalysis was cloudy, blood large, the blister is large, RBCs greater than 182, WBC 79. Stool for occult blood was positive. Patient is on aspirin and eliquis for paroxysmal atrial fibrillation. She was started on Levaquin and Zosyn and admitted to the selective care unit. Her chest x-ray showed airspace disease involving the left lower lobe pneumonia interval improvement and mild pulmonary edema. Patient states that she has a chronic Bell catheter for urinary retention and this was placed on January 14. Urinalysis is cloudy, blood large, leukoesterase large, RBCs greater than 182, WBC 79. Regarding her left chest axilla wound, patient has had a wound VAC in place [facility] at the [facility]. Blood culture showing no growth after [address] Smith is on consult with plan for upper and lower scopes on . Review of Systems All systems: negative Constitutional: Denies chills, Denies fever Eyes: denies blurred vision, denies pain Ears, nose, mouth and throat: Denies headache, Denies sore throat Cardiovascular: Denies chest pain, Denies shortness of breath Respiratory: Denies cough Gastrointestinal: Denies abdominal pain, Denies diarrhea, Denies nausea, Denies vomiting Genitourinary: Denies dysuria, Denies hematuria Musculoskeletal: Denies myalgias Integumentary: Reports wounds, Denies pruritus, Denies rash Neurological: Denies numbness, Denies weakness Psychiatric: Denies anxiety, Denies depression Endocrine: Denies fatigue, Denies weight change Past Medical History Past Medical History: Asthma, Coronary Artery Disease (CAD), Cancer, Chest Pain / Angina, CVA/TIA, Eye Disorder, GERD/Reflux, Hyperlipidemia, Hypertension Additional Past Medical History / Comment(s): Bronchial asthma, obesity, chronic lower extremity edema, L axillae cellulitis/abscess-cultures grew peptostreptococcus and MSSA-had I&D and has wound vac. 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, R eye macular degeneration, bronchial asthma, TIA, hiatal hernia, uterine cancer with hysterectomy, tardive dyskinesia, peripheral neuropathy cause unknown, migraines, sinus problems him a coronary artery disease with 50% lesion of the LAD, paroxysmal atrial fibrillation, hypertension , acid reflux, schizophrenic disorder, anxiety, peripheral neuropathy History of Any Multi-Drug Resistant Organisms: None Reported Past Surgical History: Adenoidectomy, Back Surgery, Cholecystectomy, Ear Surgery , Heart Catheterization, Hysterectomy, Tonsillectomy Additional Past Surgical History / Comment(s): I & D L axillae, L eye surgery for laxy eye, bilateral cataract removal, bilateral myringotomy/tubes, colonoscopy, cardiac cath on 07/24/2016 with moderate stenosis of LAD noted - no stenting at that time recommend medical management and return for angioplasty if sx persist Past Anesthesia/Blood Transfusion Reactions: No Reported Reaction Past Psychological History: Anxiety, Depression, Schizoaffective Disorder Additional Psychological History / Comment(s): Is normally a resident of a long-term Smoking Status: Never smoker Past Alcohol Use History: None Reported Additional Past Alcohol Use History / Comment(s): Pt states she used to drink occasionally but has not had any alcohol since 2006. Denies alcoholism. Past Drug Use History: None Reported - Past Family History Mother Family Medical History: Myocardial Infarction (SD) Additional Family Medical History / Comment(s): Mother at 72 yrs. Father Family Medical History: Cancer Additional Family Medical History / Comment(s): throat CA. Father at 72 yrs. Brother(s) Family Medical History: Cancer Additional Family Medical History / Comment(s): liver Medications and Allergies Home Medications Medication Instructions Recorded Confirmed Type Cholecalciferol [Vitamin D3] 2,000 unit PO DAILY 08/06/14 01/18/17 History Citalopram Hydrobromide 40 mg PO DAILY 08/06/14 01/18/17 History [Citalopram HBr] Cyanocobalamin [Vitamin B-12] 1,000 mcg PO Q48H 08/06/14 01/18/17 History Gabapentin [Neurontin] 300 mg PO BID@0900,1700 07/21/16 01/18/17 History Loratadine [Claritin] 10 mg PO DAILY 07/21/16 01/18/17 History Sennosides [Senna] 8.6 mg PO BID@0900,1700 07/21/16 01/18/17 History Nitroglycerin Sl Tabs [Nitrostat] 0.4 mg SUBLINGUAL Q5M PRN 07/22/16 01/18/17 History Aspirin EC [Ecotrin Low Dose] 81 mg PO DAILY 07/27/16 01/18/17 History Calcium Carbonate [Tums] 500 mg PO TID PRN 07/27/16 01/18/17 History QUEtiapine [SEROquel] 400 mg PO HS 07/27/16 01/18/17 History Albuterol Nebulized [Ventolin 2.5 mg INHALATION RT-Q6H PRN 12/30/16 01/18/17 History Nebulized] Amino Acids/Protein Hydrolys 30 ml PO BID 12/30/16 01/18/17 History [Pro-Stat Supplement] Atorvastatin [Lipitor] 10 mg PO HS 12/30/16 01/18/17 History Calamine/Zinc Oxide Lotion 1 applic TOPICAL Q6H PRN 12/30/16 01/18/17 History [Calamine Lotion] Ferrous Sulfate [Iron (65 MG 325 mg PO DAILY@1700 12/30/16 01/18/17 History Elemental)] Omeprazole 20 mg PO AC-BRKFST 12/30/16 01/18/17 History Ondansetron [Zofran] 4 mg PO Q8HR PRN 12/30/16 01/18/17 History Vit C/E/Zn/Coppr/Lutein/Zeaxan 1 cap PO DAILY 12/30/16 01/18/17 History [Preservision Areds 2 Softgel] Acetaminophen [Tylenol] 650 mg PO Q4H PRN 01/18/17 01/18/17 History Allergies Allergy/AdvReac Type Severity Reaction Status Date / Time bee venom protein (honey bee) Allergy Anaphylaxis Verified 12/30/16 06:57 lorazepam [From Ativan] Allergy Unknown Verified 01/18/17 22:22 Physical Exam Vitals: Vital Signs Temp Pulse Pulse Resp BP Pulse Ox 01/20/17 09:00 68 01/20/17 08:42 68 01/20/17 08:00 97.5 F L 74 16 106/52 96 01/20/17 04:00 97.5 F L 67 18 100/48 94 L 01/19/17 23:51 67 18 80/53 99 01/19/17 20:30 68 01/19/17 20:18 68 01/19/17 20:00 98.1 F 69 19 94/52 96 01/19/17 16:00 65 18 115/56 94 L Intake and Output 01/19/17 01/20/17 01/20/17 22:59 06:59 14:59 Intake Total 150 480 Output Total 400 1425 Balance -250 -1425 480 Intake: Intake, IV Titration 50 Amount Piperacillin-Tazobactam 3 50 .375 gm In Dextrose/Water 1 50ml.bag @ 12.5 mls/hr IVPB Q8HR [facility] Rx#: [id number] Oral 100 480 Output: Urine 400 1425 Other: Voiding Method Indwelling Catheter Indwelling Catheter Weight 104.5 kg Gen: This is a 61-year-old morbidly obese female. She is in bed and appears to be comfortable. HEENT: Head is atraumatic, normocephalic. Pupils equal, round. Sclerae is anicteric. Conjunctiva pale. Mucous membranes of the mouth are very dry. NECK: Supple. No JVD. No lymphadenopathy. No thyromegaly. LUNGS: Diminished to the bilateral bases. No wheezing.. No intercostal retractions. HEART: Irregular rate and rhythm. No murmur. ABDOMEN: Morbidly obese. Soft. Bowel sounds are present. No masses. Tenderness to the bilateral lower quadrants. EXTREMITIES: Right arm has PICC line in place with no tenderness, erythema. Left axilla has dry dressing in place. No breakthrough bleeding or drainage. Surrounding erythema. Surrounding area very tender to touch. NEUROLOGICAL: Patient is awake, alert and oriented x3. Cranial nerves 2 through 12 are grossly intact. Results Results: Laboratory Results WBC 5.3 k/uL (3.8-10.6) 01/20/17 05:50 RBC 2.38 m/uL (3.80-5.40) L 01/20/17 05:50 Hgb 7.7 gm/dL (11.4-16.0) L 01/20/17 05:50 Hct 23.3 % (34.0-46.0) L 01/20/17 05:50 MCV 98.1 fL (80.0-100.0) 01/20/17 05:50 MCH 32.2 pg (25.0-35.0) 01/20/17 05:50 MCHC 32.9 g/dL (31.0-37.0) 01/20/17 05:50 RDW 16.3 % (11.5-15.5) H 01/20/17 05:50 Plt Count 308 k/uL (150-450) 01/20/17 05:50 Neutrophils % 44 % 01/20/17 05:50 Neutrophils % (Manual) 37 % 01/19/17 05:52 Band Neutrophils % 1 % 01/19/17 05:52 Lymphocytes % 44 % 01/20/17 05:50 Lymphocytes % (Manual) 49 % 01/19/17 05:52 Monocytes % 7 % 01/20/17 05:50 Monocytes % (Manual) 12 % 01/19/17 05:52 Eosinophils % 3 % 01/20/17 05:50 Basophils % 1 % 01/20/17 05:50 Metamyelocytes % 1 % 01/19/17 05:52 Myelocytes % 2 % 01/19/17 05:52 Neutrophils # 2.3 k/uL (1.3-7.7) 01/20/17 05:50 Neutrophils # (Manual) 2.20 k/uL (1.3-7.7) 01/19/17 05:52 Lymphocytes # 2.3 k/uL (1.0-4.8) 01/20/17 05:50 Lymphocytes # (Manual) 2.89 k/uL (1.0-4.8) 01/19/17 05:52 Monocytes # 0.4 k/uL (0-1.0) 01/20/17 05:50 Monocytes # (Manual) 0.71 k/uL (0-1.0) 01/19/17 05:52 Eosinophils # 0.1 k/uL (0-0.7) 01/20/17 05:50 Basophils # 0.0 k/uL (0-0.2) 01/20/17 05:50 Metamyelocytes # (Man) 0.06 k/uL (0) H 01/19/17 05:52 Myelocytes # (Manual) 0.12 k/uL (0) H 01/19/17 05:52 Nucleated RBCs 0 /100 WBC (0-0) 01/19/17 05:52 Manual Slide Review Performed 01/19/17 05:52 Hypochromasia Slight 01/20/17 05:50 Poikilocytosis (manual Present 01/19/17 05:52 Anisocytosis Slight 01/20/17 05:50 Macrocytosis Slight 01/20/17 05:50 PT 11.2 sec (9.0-12.0) 01/18/17 21:55 INR 1.1 (<1.2) 01/18/17 21:55 APTT 25.5 sec (22.0-30.0) 01/18/17 21:55 Sodium 142 mmol/L (137-145) 01/20/17 05:50 Potassium 4.1 mmol/L (3.5-5.1) 01/20/17 05:50 Chloride 110 mmol/L (98-107) H 01/20/17 05:50 Carbon Dioxide 29 mmol/L (22-30) 01/20/17 05:50 Anion Gap 3 mmol/L 01/20/17 05:50 BUN 17 mg/dL (7-17) 01/20/17 05:50 Creatinine 0.88 mg/dL (0.52-1.04) 01/20/17 05:50 Est GFR (MDRD) Af Amer >60 (>60 ml/min/1.73 sqM) 01/20/17 05:50 Est GFR (MDRD) Non-Af >60 (>60 ml/min/1.73 sqM) 01/20/17 05:50 Glucose 65 mg/dL (74-99) L 01/20/17 05:50 Plasma Lactic Acid Britton 1.3 mmol/L (0.7-2.0) 01/18/17 21:55 Calcium 7.9 mg/dL (8.4-10.2) L 01/20/17 05:50 Phosphorus 3.9 mg/dL (2.5-4.5) 01/19/17 05:52 Magnesium 1.9 mg/dL (1.6-2.3) 01/19/17 05:52 Iron 35 ug/dL (37-170) L 01/20/17 05:50 TIBC 151 ug/dL (265-497) L 01/20/17 05:50 % Saturation 23.2 % (20-50) 01/20/17 05:50 Total Bilirubin <0.1 mg/dL (0.2-1.3) L 01/18/17 21:55 AST 27 U/L (14-36) 01/18/17 21:55 ALT 27 U/L (9-52) 01/18/17 21:55 Alkaline Phosphatase 95 U/L (38-126) 01/18/17 21:55 Total Creatine Kinase <20 U/L (30-135) L 01/18/17 21:55 CK-MB (CK-2) 0.5 ng/mL (0.0-2.4) 01/18/17 21:55 CK-MB (CK-2) Rel Index 01/18/17 21:55 Troponin I <0.012 ng/mL (0.000-0.034) 01/18/17 21:55 Total Protein 4.7 g/dL (6.3-8.2) L 01/18/17 21:55 Albumin 1.9 g/dL (3.5-5.0) L 01/18/17 21:55 Urine Color Yellow 01/18/17 21:55 Urine Appearance Cloudy (Clear) H 01/18/17 21:55 Urine pH 6.5 (5.0-8.0) 01/18/17 21:55 Ur Specific [place] 1.013 (1.001-1.035) 01/18/17 21:55 Urine Protein 1+ (Negative) H 01/18/17 21:55 Urine Glucose (UA) Negative (Negative) 01/18/17 21:55 Urine Ketones Negative (Negative) 01/18/17 21:55 Urine Blood Large (Negative) H 01/18/17 21:55 Urine Nitrite Negative (Negative) 01/18/17 21:55 Urine Bilirubin Negative (Negative) 01/18/17 21:55 Urine Urobilinogen <2.0 mg/dL (<2.0) 01/18/17 21:55 Ur Leukocyte Esterase Large (Negative) H 01/18/17 21:55 Urine RBC >182 /hpf (0-5) H 01/18/17 21:55 Urine WBC 79 /hpf (0-5) H 01/18/17 21:55 Urine Mucus Rare /hpf (None) H 01/18/17 21:55 Stool Occult Blood Positive (Negative) H 01/18/17 23:00 Digoxin 1.0 ng/mL 01/18/17 21:55 Blood Type O Positive 01/18/17 21:55 Blood Type Recheck No 01/18/17 21:55 Antibody Screen NEGATIVE 01/18/17 21:55 Crossmatch See Detail 01/18/17 21:55 Spec Expiration Date 01/21/2017 - 20501/18/17 21:55 CBC & Chem 7: 01/20/17 05:50 01/20/17 05:50 Labs: Abnormal Lab Results - Last 24 Hours (Table) 01/20/17 01/20/17 Range/Units 05:50 05:50 RBC 2.38 L (3.80-5.40) m/uL Hgb 7.7 L (11.4-16.0) gm/dL Hct 23.3 L (34.0-46.0) % RDW 16.3 H (11.5-15.5) % Chloride 110 H (98-107) mmol/L Glucose 65 L (74-99) mg/dL Calcium 7.9 L (8.4-10.2) mg/dL Microbiology - Last 24 Hours (Table) 01/18/17 21:55 Blood Culture - Preliminary Blood No Growth after 24 hours 01/18/17 21:55 Urine Culture - Preliminary Urine,Catheterized Assessment and Plan Plan: This is a 61-year-old female who is well-known to ID service for treatment of an abscess in the left axilla with Zosyn. She has been maintained on a wound VAC. Local wound care will be addressed. She is currently on IV antibiotics in form of Levaquin and Zosyn. She now appears to have an acute urinary tract infection most likely due to the Bell catheter. Urine culture is in progress. Blood culture is showing no growth after 24 hours. She is being worked up and evaluated for acute GI bleed with acute blood loss anemia. Continue supportive care. Further recommendations as patient progresses. The above dictated assessment and findings were discussed with Dr. Elmore. The impression and plan of care have been directed as dictated. Corine Light nurse practitioner acting as scribe for Dr. Elmore.
[2017-01-20] MEDS: FERROUS SULFATE 325 MG TAB PO SCH (16:04)
--- NOTE | 2017-01-20 16:32 | P.PN ---
<Carlotta Ibarra - Last Filed: 01/20/17 16:10> Progress Note - Text DATE OF SERVICE: 01/20/2017 PRESENTING COMPLAINT: Low hemoglobin HISTORY OF PRESENT ILLNESS: 61-year-old female with recent discharged on 01/15/2017. Follow-up labs had been completed patient was found to have hemoglobin of 6.7 and was advised to be evaluated. Patient was on aspirin as well as Eliquis, denied any blood in her stools or any tarry black stools. Admitted for the same. Received 1 unit of packed red cells in the emergency department. INTERVAL HISTORY: 01/20/2017: Patient lying in the bed appears comfortable. Hemoglobin is 7.7 down from 8.1, no acute signs or symptoms of anemia/bleeding. Remains in atrial fibrillation, Eliquis on hold for tentative plans for EGD colonoscopy on . Tolerating her diet eating 75-100%, up with assistance, as BM prior to admission. Local wound care to left axilla status post I&D. REVIEW OF SYSTEMS: Done for constitutional ,cardiovascular, GI, pulmonary, integumentary with relevant findings as above. CURRENT MEDICATIONS Tylenol 3, Lipitor, Pulmicort, cholecalciferol levofloxacin Claritin, Neurontin , digoxin due to pain, Protonix, Zosyn, MiraLAX. PHYSICAL EXAM VITAL SIGNS: Temperature 97.8, pulse 72, respirations 16, blood pressure 116/58, oxygen saturation 99% on room air. GENERAL APPEARANCE: Lying in bed, not in distress. EYES: Pupils equal. Conjunctiva normal. NECK: JVD unable to assess. Mass not palpable. RESPIRATORY: Respiratory effort normal. Lungs diminished to auscultation. CARDIOVASCULAR: Irregular rhythm. No edema. ABDOMEN: Soft. Liver and spleen not palpable. No tenderness. No mass palpable. PSYCHIATRY: Alert and oriented x3. Mood and affect normal. INTEGUMENTARY: Healing lesions to the right upper chest wall from herpes zoster and complex wound in the left axilla with wet-to-dry dressing. INVESTIGATIONS: Hemoglobin 7.7, chloride 110, calcium 7.9, iron 35, TIBC 151 Urine culture: Ingrid albicans ASSESSMENT: -Acute blood loss anemia, likely gastrointestinal. Patient has been on Eliquis and aspirin, requiring a transfusion, 1 unit of blood was given. -Recent herpes zoster's 2 on the right neck and right upper chest wall now healed. -Left axilla wound status post incision and drainage growing multiple organisms. Has been on a wound VAC. -Coronary artery disease, obstructive 50% left anterior descending lesion. -Paroxysmal atrial fibrillation. -GERD -Essential hypertension. -Hyperlipidemia. -Chronic tardive dyskinesia. -Schizophrenia disorder, chronic. -Anxiety disorder not otherwise specific. -Peripheral neuropathy, idiopathic. -Obesity body mass index 39.7 point. -Febrile, likely urinary tract infection, improving PLAN: EGD/colonoscopy scheduled tentatively for tomorrow with GI, continue local wound care per ID recommendations as well as antibiotic therapy for urinary tract infection as well as axilla wound. Plan of care discussed with patient she is in agreement. 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 Elizabeth <Marvin Elizabeth - Last Filed: 01/20/17 18:25> Progress Note - Text Attending note. Date of service-01/20/2017 This patient was seen and examined by me . Discussed the patient with my nurse practitioner Ms. Ibarra. Admitted with anemia felt to be GI. Patient was on Eliquis and aspirin. Awaiting endoscopy on . Laying in bed tired appearing. Some abdominal pain. On examination: Abdomen-mid abdomen slight tenderness to, psych AO 3 Investigations: Hemoglobin 7.7 Assessment and plan: Acute blood loss anemia likely GI patient is an Eliquis and aspirin. Pending endoscopy. Eliquis held. Left axilla wound has been on wound VAC. Continue current medication treatment plan. Follow H&H. Pending Endoscopy
[2017-01-20] MEDS: ATORVASTATIN 10 MG TAB PO SCH (21:10)
[2017-01-20] MEDS: POLYETHYLENE GLYCOL 3350 17 GM POWD.PACK PO SCH (21:11)
[2017-01-20] MEDS: QUEtiapine 400 MG TAB PO SCH (21:11)
[2017-01-20] MEDS: CYANOCOBALAMIN 500 MCG TAB PO SCH (21:12)
--- NOTE | 2017-01-20 23:17 | P.CON ---
Consult Note - . Consult date: 01/20/17 Assessment/Plan:: 61-year-old female recently hospitalized from December 29 through January 15 for her significant abscess to her left axillary area status post incision and drainage. Patient was discharged with a PICC line in place to the right arm and on Zosyn to complete another 10 days. Patient return to [facility] emergency center due to low hemoglobin which was 6.3 at [facility]. Upon arrival to the ER she is found to have a fever of 101, white count was 4.7. Urinalysis was cloudy, blood large, the blister is large, RBCs greater than 182, WBC 79. Stool for occult blood was positive. Patient is on aspirin and eliquis for paroxysmal atrial fibrillation. She was started on Levaquin and Zosyn and admitted to the selective care unit. Her chest x-ray showed airspace disease involving the left lower lobe pneumonia interval improvement and mild pulmonary edema. Patient states that she has a chronic Bell catheter for urinary retention and this was placed on January 14. Urinalysis is cloudy, blood large, leukoesterase large, RBCs greater than 182, WBC 79. Regarding her left chest axilla wound, patient has had a wound VAC in place while at the custodial. Blood culture showing no growth after [address] Smith is on consult with plan for upper and lower scopes on . Please see the consult note as dictated by nurse practitioner Mrs. Corine Light. This 61-year-old relates that she was feeling poorly while she was extended care. Blood work was done that showed evidence of her significant anemia. Is evidence of a gastrointestinal bleed. She will undergo endoscopy tomorrow. She is currently receiving antibiotic therapy with Zosyn from significant infection to her left axillary area.local wound are is contine with the Dakins solution. If she resolves her current illnesses she then becomes a candidate for negative pressure therapy hopefully the near future. We will monitor for any further infection at this time. I agree with evaluation, assessment and plan as dictated by nurse practitioner Mrs. Corine Light.
[2017-01-21 06:45] LABS: Basophils % (A) 1 %; CH 31.1; CHCM 31.9; Eosinophils # (A) 0.1 k/uL (0-0.7); Eosinophils % (A) 2 %; HDW 3.15; HGB 7.4 gm/dL (11.4-16.0); Hypochromasia Slight; Luc # (Auto) 0.12; Luc % (Auto) 3; Lymphocytes # (A) 2.2 k/uL (1.0-4.8); Lymphocytes % (A) 45 %; MCH 31.8 pg (25.0-35.0); MCHC 32.4 g/dL (31.0-37.0); MCV 98.1 fL (80.0-100.0); Macrocytosis Slight; Monocytes # (A) 0.4 k/uL (0-1.0); Monocytes % (A) 8 %; Neutrophils % (A) 41 %; RBC 2.34 m/uL (3.80-5.40); RDW 15.9 % (11.5-15.5); WBC 4.9 k/uL (3.8-10.6); WBC (Perox) 4.86
[2017-01-21 06:57] LABS: Manual Review Performed
[2017-01-21 07:11] LABS: Anion Gap 3 mmol/L; Blood Urea Nitrogen 13 mg/dL (7-17); Calcium 7.8 mg/dL (8.4-10.2); Carbon Dioxide 31 mmol/L (22-30); Chloride 108 mmol/L (98-107); Glucose 61 mg/dL (74-99); Non-African American GFR(MDRD) >60 (>60 ml/min/1.73 sqM); Potassium 3.9 mmol/L (3.5-5.1); Sodium 142 mmol/L (137-145)
[2017-01-21] MEDS: SENNOSIDES 8.6 MG TAB PO SCH ×2 (08:20→17:37)
[2017-01-21] MEDS: PIPERACILLIN-TAZOBACTAM 3.375 GM in DEXTROSE/WATER 1 50ML.BAG IVPB SCH ×2 (08:53→17:37)
[2017-01-21] MEDS: LEVOFLOXACIN 750MG-D5W PMX 750 MG in DEXTROSE/WATER 1 150ML.BAG IVPB SCH (08:53)
[2017-01-21] MEDS: VIT A,C & E-LUTEIN-MINERALS 1 EACH TAB PO SCH (08:56)
[2017-01-21] MEDS: METOPROLOL TARTRATE 25 MG TAB PO SCH ×3 (08:56→20:34)
[2017-01-21] MEDS: LORATADINE 10 MG TAB PO SCH (08:56)
[2017-01-21] MEDS: GABAPENTIN 300 MG CAP PO SCH ×2 (08:56→17:37)
[2017-01-21] MEDS: DIGOXIN 125 MCG TAB PO SCH (08:56)
[2017-01-21] MEDS: PANTOPRAZOLE 40 MG/10 ML VIAL IV SCH (08:57)
[2017-01-21] MEDS: CITALOPRAM HYDROBROMIDE 20 MG TAB PO SCH (08:57)
[2017-01-21] MEDS: CHOLECALCIFEROL 1,000 UNIT TAB PO SCH (08:57)
[2017-01-21] MEDS: OXYBUTYNIN CHLORIDE 5 MG TAB PO SCH ×2 (08:57→20:33)
[2017-01-21] MEDS: BUDESONIDE 0.5 MG/2 ML NEBU INHALATION SCH ×2 (09:18→19:57)
[2017-01-21] MEDS: ALBUTEROL NEBULIZED 2.5 MG/3 ML INHALATION PRN ×2 (09:18→19:57)
[2017-01-21] MEDS ORDERED: SODIUM HYPOCHLORITE 0.5% 480 ML BOT MISCELLANE SCH ×2 (12:15→22:00)
[2017-01-21] MEDS ORDERED: LIDOCAINE 1% INJ 10MG/ML (20 ML MDV) ONE (14:52)
[2017-01-21] MEDS ORDERED: IV FLUID CONTINUATION 1,000 ML IV ONE (14:52)
[2017-01-21] MEDS ORDERED: PROPOFOL 10 MG/ML 20 ML VIAL IV ONE (14:52)
[2017-01-21] MEDS ORDERED: GLYCOPYRROLATE 0.2 MG/ML 2 ML VIAL ONE (14:52)
--- NOTE | 2017-01-21 15:37 | P.PCN ---
Date of Procedure: 01/21/17 Preoperative Diagnosis: Postoperative Diagnosis: Procedure(s) Performed: Procedure: 1. Esophagogastroduodenoscopy. 2. Total colonoscopy. Preoperative diagnosis: Anemia and Hemoccult-positive stools. Preoperative diagnosis: 1. Small sliding hiatal hernia with no obvious esophagitis or complicated reflux disease. 2. Mild gastritis with no ulcers or active bleeding. 3. Sigmoid diverticulosis with no evidence of acute diverticulitis, strictures, polyps, cancer, angiodysplasia or bleeding. Preparation: GoLYTELY prep. Sedation: Was provided by anesthesia. Brief clinical history: The patient is a 61-year-old female admitted with anemia and positive Hemoccult receiving dual antiplatelet therapy. No witnessed episodes of hematemesis or hematochezia or melena. Denies abdominal pain. Hemoglobin 7.7. Received 1 unit of blood since admission. No recent colonoscopy or EGD. The details are summarized in the history and physical and dictated consultation and progress notes. This evaluation is to assess for a source of bleeding. Procedure: With the patient on her left lateral decubitus position and after informed consent and adequate sedation, I passed the Olympus-GIF 160 video upper endoscope through the cricopharyngeus down the esophagus. GE junction was around 39 cm from the incisors and there was a very small sliding hiatal hernia. The esophagus did not show any erosions, ulcers, strictures, Lord's esophagus or any mucosal tears or varices. No evidence of bleeding. The endoscope was then passed into the stomach which was insufflated with air and inspected in detail including the retroflex view in the cardia. There was some diffuse mottling and erythema and occasional small circular areas of submucosal hemorrhage but no ulcers, erosions or active bleeding. Pyloric channel, duodenal bulb, post bulbar area and descending duodenum appeared healthy. All esophageal ,gastric and duodenal secretions were clear or bilious in color without any evidence of bleeding. No biopsies were indicated. The endoscope was then withdrawn and I proceeded with the colonoscopy. Perianal area did not show any fissures or fistulas. There were no masses felt on digital rectal examination. The Olympus CFQ 160L video colonoscope was then inserted in the rectum in the usual fashion and advanced to the cecum. There were several diverticular orifices seen scattered in the sigmoid with no evidence of acute diverticulitis or strictures. No polyps or tumors were seen. The mucosa appeared healthy without any evidence of colitis. No angiodysplasia or other potential sources of bleeding. I retroflexed the endoscope in the rectum before the endoscope was withdrawn. The patient tolerated the procedure well. Plan: The patient was reassured. Will allow diet as tolerated. Consideration can be made for capsule endoscopy if her problem recurs after restarting her antiplatelet therapy in the future. Implants: Indications for Procedure: Operative Findings: Description of Procedure:
--- NOTE | 2017-01-21 17:15 | P.PN ---
<Carlotta Ibarra - Last Filed: 01/21/17 17:54> Progress Note - Text DATE OF SERVICE: 01/21/2017 PRESENTING COMPLAINT: Low hemoglobin HISTORY OF PRESENT ILLNESS: 61-year-old female with recent discharged on 01/15/2017. Follow-up labs had been completed patient was found to have hemoglobin of 6.7 and was advised to be evaluated. Patient was on aspirin as well as Eliquis, denied any blood in her stools or any tarry black stools. Admitted for the same. Received 1 unit of packed red cells in the emergency department. INTERVAL HISTORY: 01/21/2017: Patient seen in follow-up today. Appears comfortable, no bleeding, hemoglobin 7.4, remains in atrial fibrillation with Eliquis on hold for colonoscopy EGD today. Remains nothing by mouth for procedure, up with assistance, BM 2016. Local wound care to left axilla continues per ID. 01/20/2017: Patient lying in the bed appears comfortable. Hemoglobin is 7.7 down from 8.1, no acute signs or symptoms of anemia/bleeding. Remains in atrial fibrillation, Eliquis on hold for tentative plans for EGD colonoscopy on . Tolerating her diet eating 75-100%, up with assistance, as BM prior to admission. Local wound care to left axilla status post I&D. Antibiotic therapy of levofloxacin and Zosyn continues for axilla wound. REVIEW OF SYSTEMS: Done for constitutional ,cardiovascular, GI, pulmonary, integumentary with relevant findings as above. CURRENT MEDICATIONS Tylenol 3, Lipitor, Pulmicort, cholecalciferol levofloxacin Claritin, Neurontin , digoxin due to pain, Protonix, Zosyn, MiraLAX. PHYSICAL EXAM VITAL SIGNS: Temperature 98.3, pulse 75, blood pressure 106/56, oxygen saturation 98% on 2 L respiratory rate 18. GENERAL APPEARANCE: Lying in bed, not in distress. EYES: Pupils equal. Conjunctiva normal. NECK: JVD unable to assess. Mass not palpable. RESPIRATORY: Respiratory effort normal. Lungs diminished to auscultation. CARDIOVASCULAR: Irregular rhythm. No edema. ABDOMEN: Soft. Liver and spleen not palpable. Mild tenderness mid abdomen. No mass palpable. PSYCHIATRY: Alert and oriented x3. Mood and affect normal. INTEGUMENTARY: Healing lesions to the right upper chest wall from herpes zoster and complex wound in the left axilla with wet-to-dry dressing. INVESTIGATIONS: Hemoglobin 7.7, chloride 110, calcium 7.9, iron 35, TIBC 151 Urine culture: Ingrid albicans ASSESSMENT: -Acute blood loss anemia, likely gastrointestinal. Patient has been on Eliquis and aspirin, requiring a transfusion, 1 unit of blood was given. -Recent herpes zoster's 2 on the right neck and right upper chest wall now healed. -Left axilla wound status post incision and drainage growing multiple organisms. Has been on a wound VAC. -Coronary artery disease, obstructive 50% left anterior descending lesion. -Paroxysmal atrial fibrillation. -GERD -Essential hypertension. -Hyperlipidemia. -Chronic tardive dyskinesia. -Schizophrenia disorder, chronic. -Anxiety disorder not otherwise specific. -Peripheral neuropathy, idiopathic. -Obesity body mass index 39.7 point. -Febrile, likely urinary tract infection, improving PLAN: EGD colonoscopy scheduled for 1:30 today, local wound care and antibiotic therapy continues per ID. Tentative discharge planning in the next 24-48 hours. Plan of care discussed with patient at the bedside she is in agreement. We will follow closely. ENFORCEMENT OFFICER statement: Patient was seen and examined by nurse practitioner Carlotta Ibarra and all elements of the case discussed with attending Dr. Elizabeth <Marvin Elizabeth - Last Filed: 01/21/17 18:06> Progress Note - Text Attending note. Date of service-01/21/2017 This patient was seen and examined by me . Discussed the patient with my nurse practitioner Ms. Ibarra. Admitted with anemia. Had endoscopy today. Showed gastritis and diverticulosis. On examination: Abdomen-mild tenderness. Patient awake answering questions comfortable Investigations: Hemoglobin 7.4 Assessment and plan: Gastritis and diverticulosis as per endoscopy. Patient be able to go back on Eliquis shortly. Looking and hopefully discharge tomorrow. Ingrid albicans in the urine.-Will get ID input. Discussed with patient.
[2017-01-21] MEDS: FERROUS SULFATE 325 MG TAB PO SCH (17:37)
--- NOTE | 2017-01-21 19:08 | P.PN ---
Subjective Principal diagnosis: Fever 61-year-old female recently hospitalized from December 29 through January 15 for her significant abscess to her left axillary area status post incision and drainage. Patient was discharged with a PICC line in place to the right arm and on Zosyn to complete another 10 days. Patient return to [facility] emergency center due to low hemoglobin which was 6.3 at [facility]. Upon arrival to [facility] and hostile she is found to have a fever of 101, white count was 4.7. Urinalysis was cloudy, blood large, the blister is large, RBCs greater than 182, WBC 79. Stool for occult blood was positive. Patient is on aspirin and eliquis for paroxysmal atrial fibrillation. She was started on Levaquin and Zosyn and admitted to the selective care unit. Her chest x-ray showed airspace disease involving the left lower lobe pneumonia interval improvement and mild pulmonary edema. Patient states that she has a chronic Bell catheter for urinary retention and this was placed on January 14. Urinalysis is cloudy, blood large, leukoesterase large, RBCs greater than 182, WBC 79. Regarding her left chest axilla wound, patient has had a wound VAC in place while at the [place]. Blood culture showing no growth after 24 hours. Patient has taken in her full dose of GoLYTELY and has had what appears to be a good prep and will have her upper and lower endoscopies later this afternoon. She has no other new complaints. Pain is under good control. Objective - Vital Signs Vital signs: Vital Signs Temp 98.0 F 01/21/17 15:00 Pulse 80 01/21/17 15:00 Resp 18 01/21/17 15:00 BP 127/56 01/21/17 15:00 Pulse Ox 98 01/21/17 15:00 Intake & Output 01/21/17 01/21/17 01/22/17 06:59 18:59 06:59 Intake Total 4050 200 Output Total 600 1150 Balance 3450 -950 Weight 105 kg Intake: IV 200 Intake, IV Titration 50 Amount Piperacillin-Tazobactam 3 50 .375 gm In Dextrose/Water 1 50ml.bag @ 12.5 mls/hr IVPB Q8HR AMADA Rx#: [id number] Oral 4000 Output: Urine 600 1150 Other: Voiding Method Indwelling Catheter Indwelling Catheter # Voids 1 1 # Bowel Movements 2 - Exam Gen: This is a 61-year-old morbidly obese female. She is in bed and appears to be comfortable. HEENT: Head is atraumatic, normocephalic. Pupils equal, round. Sclerae is anicteric. Conjunctiva pale. Mucous membranes of the mouth are very dry. NECK: Supple. No JVD. No lymphadenopathy. No thyromegaly. LUNGS: Diminished to the bilateral bases. No wheezing.. No intercostal retractions. HEART: Irregular rate and rhythm. No murmur. ABDOMEN: Morbidly obese. Soft. Bowel sounds are present. No masses. Tenderness to the bilateral lower quadrants. EXTREMITIES: Right arm has PICC line in place with no tenderness, erythema. Left axilla has been evaluated. A full role of 2 inch roll gauze with Dakin solution is packed into the area. She'll some tenderness to the surrounding area. Overall improving and less odor with the use of Dakin's. NEUROLOGICAL: Patient is awake, alert and oriented x3. - Labs CBC & Chem 7: 01/21/17 05:48 01/21/17 05:48 Labs: Abnormal Lab Results - Last 24 Hours (Table) 01/21/17 01/21/17 Range/Units 05:48 05:48 RBC 2.34 L (3.80-5.40) m/uL Hgb 7.4 L (11.4-16.0) gm/dL Hct 23.0 L (34.0-46.0) % RDW 15.9 H (11.5-15.5) % Chloride 108 H (98-107) mmol/L Carbon Dioxide 31 H (22-30) mmol/L Glucose 61 L (74-99) mg/dL Calcium 7.8 L (8.4-10.2) mg/dL Microbiology - Last 24 Hours (Table) 01/18/17 21:55 Blood Culture - Preliminary Blood No Growth after 48 hours 01/18/17 21:55 Urine Culture - Final Urine,Catheterized Ingrid albicans Laboratory Results WBC 4.9 k/uL (3.8-10.6) 01/21/17 05:48 RBC 2.34 m/uL (3.80-5.40) L 01/21/17 05:48 Hgb 7.4 gm/dL (11.4-16.0) L 01/21/17 05:48 Hct 23.0 % (34.0-46.0) L 01/21/17 05:48 MCV 98.1 fL (80.0-100.0) 01/21/17 05:48 MCH 31.8 pg (25.0-35.0) 01/21/17 05:48 MCHC 32.4 g/dL (31.0-37.0) 01/21/17 05:48 RDW 15.9 % (11.5-15.5) H 01/21/17 05:48 Plt Count 293 k/uL (150-450) 01/21/17 05:48 Neutrophils % 41 % 01/21/17 05:48 Neutrophils % (Manual) 37 % 01/19/17 05:52 Band Neutrophils % 1 % 01/19/17 05:52 Lymphocytes % 45 % 01/21/17 05:48 Lymphocytes % (Manual) 49 % 01/19/17 05:52 Monocytes % 8 % 01/21/17 05:48 Monocytes % (Manual) 12 % 01/19/17 05:52 Eosinophils % 2 % 01/21/17 05:48 Basophils % 1 % 01/21/17 05:48 Metamyelocytes % 1 % 01/19/17 05:52 Myelocytes % 2 % 01/19/17 05:52 Neutrophils # 2.0 k/uL (1.3-7.7) 01/21/17 05:48 Neutrophils # (Manual) 2.20 k/uL (1.3-7.7) 01/19/17 05:52 Lymphocytes # 2.2 k/uL (1.0-4.8) 01/21/17 05:48 Lymphocytes # (Manual) 2.89 k/uL (1.0-4.8) 01/19/17 05:52 Monocytes # 0.4 k/uL (0-1.0) 01/21/17 05:48 Monocytes # (Manual) 0.71 k/uL (0-1.0) 01/19/17 05:52 Eosinophils # 0.1 k/uL (0-0.7) 01/21/17 05:48 Basophils # 0.0 k/uL (0-0.2) 01/21/17 05:48 Metamyelocytes # (Man) 0.06 k/uL (0) H 01/19/17 05:52 Myelocytes # (Manual) 0.12 k/uL (0) H 01/19/17 05:52 Nucleated RBCs 0 /100 WBC (0-0) 01/19/17 05:52 Manual Slide Review Performed 01/21/17 05:48 Hypochromasia Slight 01/21/17 05:48 Poikilocytosis (manual Present 01/19/17 05:52 Anisocytosis Slight 01/20/17 05:50 Macrocytosis Slight 01/21/17 05:48 PT 11.2 sec (9.0-12.0) 01/18/17 21:55 INR 1.1 (<1.2) 01/18/17 21:55 APTT 25.5 sec (22.0-30.0) 01/18/17 21:55 Sodium 142 mmol/L (137-145) 01/21/17 05:48 Potassium 3.9 mmol/L (3.5-5.1) 01/21/17 05:48 Chloride 108 mmol/L (98-107) H 01/21/17 05:48 Carbon Dioxide 31 mmol/L (22-30) H 01/21/17 05:48 Anion Gap 3 mmol/L 01/21/17 05:48 BUN 13 mg/dL (7-17) 01/21/17 05:48 Creatinine 0.85 mg/dL (0.52-1.04) 01/21/17 05:48 Est GFR (MDRD) Af Amer >60 (>60 ml/min/1.73 sqM) 01/21/17 05:48 Est GFR (MDRD) Non-Af >60 (>60 ml/min/1.73 sqM) 01/21/17 05:48 Glucose 61 mg/dL (74-99) L 01/21/17 05:48 Plasma Lactic Acid Britton 1.3 mmol/L (0.7-2.0) 01/18/17 21:55 Calcium 7.8 mg/dL (8.4-10.2) L 01/21/17 05:48 Phosphorus 3.9 mg/dL (2.5-4.5) 01/19/17 05:52 Magnesium 1.9 mg/dL (1.6-2.3) 01/19/17 05:52 Iron 35 ug/dL (37-170) L 01/20/17 05:50 TIBC 151 ug/dL (265-497) L 01/20/17 05:50 % Saturation 23.2 % (20-50) 01/20/17 05:50 Ferritin 400.8 ng/mL (10.0-291.0) H 01/18/17 21:55 Total Bilirubin <0.1 mg/dL (0.2-1.3) L 01/18/17 21:55 AST 27 U/L (14-36) 01/18/17 21:55 ALT 27 U/L (9-52) 01/18/17 21:55 Alkaline Phosphatase 95 U/L (38-126) 01/18/17 21:55 Total Creatine Kinase <20 U/L (30-135) L 01/18/17 21:55 CK-MB (CK-2) 0.5 ng/mL (0.0-2.4) 01/18/17 21:55 CK-MB (CK-2) Rel Index 01/18/17 21:55 Troponin I <0.012 ng/mL (0.000-0.034) 01/18/17 21:55 Total Protein 4.7 g/dL (6.3-8.2) L 01/18/17 21:55 Albumin 1.9 g/dL (3.5-5.0) L 01/18/17 21:55 Urine Color Yellow 01/18/17 21:55 Urine Appearance Cloudy (Clear) H 01/18/17 21:55 Urine pH 6.5 (5.0-8.0) 01/18/17 21:55 Ur Specific [place] 1.013 (1.001-1.035) 01/18/17 21:55 Urine Protein 1+ (Negative) H 01/18/17 21:55 Urine Glucose (UA) Negative (Negative) 01/18/17 21:55 Urine Ketones Negative (Negative) 01/18/17 21:55 Urine Blood Large (Negative) H 01/18/17 21:55 Urine Nitrite Negative (Negative) 01/18/17 21:55 Urine Bilirubin Negative (Negative) 01/18/17 21:55 Urine Urobilinogen <2.0 mg/dL (<2.0) 01/18/17 21:55 Ur Leukocyte Esterase Large (Negative) H 01/18/17 21:55 Urine RBC >182 /hpf (0-5) H 01/18/17 21:55 Urine WBC 79 /hpf (0-5) H 01/18/17 21:55 Urine Mucus Rare /hpf (None) H 01/18/17 21:55 Stool Occult Blood Positive (Negative) H 01/18/17 23:00 Digoxin 1.0 ng/mL 01/18/17 21:55 Blood Type O Positive 01/18/17 21:55 Blood Type Recheck No 01/18/17 21:55 Antibody Screen NEGATIVE 01/18/17 21:55 Crossmatch See Detail 01/18/17 21:55 Spec Expiration Date 01/21/2017 - 8841 01/18/17 21:55 Microbiology 01/18/17 21:55 Blood Blood Culture - Preliminary No Growth after 48 hours 01/18/17 21:55 Urine,Catheterized Urine Culture - Final Ingrid albicans Assessment and Plan (1) Abscess of axilla, left Narrative/Plan: This 61-year-old relates that she was feeling poorly while she was extended care. Blood work was done that showed evidence of her significant anemia. Is evidence of a gastrointestinal bleed. She will undergo endoscopy tomorrow. She is currently receiving antibiotic therapy with Zosyn from significant infection to her left axillary area.local wound are is contine with the Dakins solution. If she resolves her current illnesses she then becomes a candidate for negative pressure therapy hopefully the near future. We'll have her endoscopy later today. Continue current antibiotic therapy for now. Urinalysis with some yeast. Does not appear to have evidence of urinary tract infection at this time. Status: Acute (2) GI bleed Status: Acute
[2017-01-21] MEDS: ATORVASTATIN 10 MG TAB PO SCH (20:33)
[2017-01-21] MEDS: Acetaminophen-Codeine 300-30mg TAB PO PRN (20:34)
[2017-01-21] MEDS: POLYETHYLENE GLYCOL 3350 17 GM POWD.PACK PO SCH (20:34)
[2017-01-21] MEDS: QUEtiapine 400 MG TAB PO SCH (20:34)
[2017-01-22] MEDS: PIPERACILLIN-TAZOBACTAM 3.375 GM in DEXTROSE/WATER 1 50ML.BAG IVPB SCH ×3 (00:01→17:30)
[2017-01-22] MEDS: LEVOFLOXACIN 750MG-D5W PMX 750 MG in DEXTROSE/WATER 1 150ML.BAG IVPB SCH (07:48)
[2017-01-22] MEDS: PANTOPRAZOLE 40 MG/10 ML VIAL IV SCH (07:50)
[2017-01-22] MEDS: SENNOSIDES 8.6 MG TAB PO SCH (07:50)
[2017-01-22] MEDS: METOPROLOL TARTRATE 25 MG TAB PO SCH ×2 (07:51→17:31)
[2017-01-22] MEDS: OXYBUTYNIN CHLORIDE 5 MG TAB PO SCH (07:51)
[2017-01-22] MEDS: GABAPENTIN 300 MG CAP PO SCH (07:51)
[2017-01-22] MEDS: CITALOPRAM HYDROBROMIDE 20 MG TAB PO SCH (07:51)
[2017-01-22] MEDS: VIT A,C & E-LUTEIN-MINERALS 1 EACH TAB PO SCH (07:51)
[2017-01-22] MEDS: LORATADINE 10 MG TAB PO SCH (07:52)
[2017-01-22] MEDS: Acetaminophen-Codeine 300-30mg TAB PO PRN (07:52)
[2017-01-22] MEDS: DIGOXIN 125 MCG TAB PO SCH (07:52)
[2017-01-22] MEDS: CHOLECALCIFEROL 1,000 UNIT TAB PO SCH (07:52)
[2017-01-22 08:05] LABS: Anisocytosis Slight; Basophils % (A) 0 %; CHCM 32.2; Eosinophils # (A) 0.1 k/uL (0-0.7); Eosinophils % (A) 2 %; HCT 23.3 % (34.0-46.0); HDW 2.98; HGB 7.3 gm/dL (11.4-16.0); Luc # (Auto) 0.09; Luc % (Auto) 2; Lymphocytes # (A) 2.1 k/uL (1.0-4.8); Lymphocytes % (A) 36 %; MCH 31.5 pg (25.0-35.0); MCHC 31.5 g/dL (31.0-37.0); MCV 100.1 fL (80.0-100.0); Macrocytosis Slight; Mean Platelet Volume 7.1; Monocytes # (A) 0.4 k/uL (0-1.0); Monocytes % (A) 6 %; Neutrophils # (A) 3.1 k/uL (1.3-7.7); Neutrophils % (A) 54 %; RBC 2.32 m/uL (3.80-5.40); RDW 16.1 % (11.5-15.5); WBC 5.7 k/uL (3.8-10.6); WBC (Perox) 5.61
[2017-01-22 08:30] LABS: Anion Gap 4 mmol/L; Blood Urea Nitrogen 10 mg/dL (7-17); Calcium 7.9 mg/dL (8.4-10.2); Carbon Dioxide 30 mmol/L (22-30); Chloride 106 mmol/L (98-107); Glucose 72 mg/dL (74-99); Non-African American GFR(MDRD) 56 (>60 ml/min/1.73 sqM); Potassium 3.9 mmol/L (3.5-5.1); Sodium 140 mmol/L (137-145)
[2017-01-22] MEDS: ALBUTEROL NEBULIZED 2.5 MG/3 ML INHALATION PRN (08:40)
[2017-01-22] MEDS: BUDESONIDE 0.5 MG/2 ML NEBU INHALATION SCH (08:40)
--- NOTE | 2017-01-22 14:49 | P.DS ---
<Carlotta Ibarra - Last Filed: 01/22/17 14:18> Providers Date of admission: 01/18/17 23:51 Expected date of discharge: 01/22/17 Attending physician: Marvin Elizabeth Consults: 01/19/17 16:44 Consult Physician Routine Consulting Provider: Matthew Elmore Consult Reason/Comments: Wound care Do you want consulting provider notified?: Yes Primary care physician: Thomas Medinaqvi Hospital Course: FINAL DIAGNOSES: -Acute blood loss anemia, likely gastrointestinal. Patient has been on Eliquis and aspirin, requiring a transfusion, 2 units of blood was given. -Recent herpes zoster's 2 on the right neck and right upper chest wall now healed. -Left axilla wound status post incision and drainage growing multiple organisms. Has been on a wound VAC. -Coronary artery disease, obstructive 50% left anterior descending lesion. -Paroxysmal atrial fibrillation. -GERD -Essential hypertension. -Hyperlipidemia. -Chronic tardive dyskinesia. -Schizophrenia disorder, chronic. -Anxiety disorder not otherwise specific. -Peripheral neuropathy, idiopathic. -Obesity body mass index 39.7 point. -Febrile, likely urinary tract infection HOSPTIAL COURSE: 61-year-old female recently discharged on 01/15/2017. Follow-up labs revealed hemoglobin of 6.7 and was admitted to be reevaluated for bleeding. On aspirin and Eliquis which were held. GI and infectious disease consulted. GI recommended Patient have an EGD colonoscopy which revealed small sliding hiatal hernia no esophagitis or complicated reflux disease, mild gastritis with no ulcers or active bleeding, sigmoid diverticulosis with no evidence of acute diverticulitis strictures polyps or cancer or bleeding. Eliquis to be resumed in 5 days and aspirin is been stopped. Should patient sustain a drop in hemoglobin Eliquis should be stopped. Infectious disease consulted to follow left axilla wound and antibiotic therapy which was treated on previous admission. Patient will be sent back on Unasyn 3 g every 6 hours for 2 weeks and wound will be continued to be evaluated by Dr. Elmore for negative pressure wound therapy. Patient has had no signs or symptoms of bleeding, hemoglobin stabilized. Patient will be transferred back to [facility]. PHYSICAL EXAM: CARDIOVASCULAR: Irregular rhythm mild edema RESPIRATORY: Effort normal, lungs diminished to auscultation GI: Soft, liver and spleen not palpable, mild tenderness to mid abdomen. No mass palpable. PSYCHIATRY: Alert and oriented 3 mood and affect a little flat. Patient was seen and examined by nurse practitioner Carlotta Ibarra in all elements of the case discussed with attending Dr. Elizabeth DISPOSITION: [facility] on the [facility] Patient Condition at Discharge: Fair Plan - Discharge Summary New Discharge Prescriptions: New Ampicillin-Sulbactam [Unasyn] 3 gm IVPB Q6HR 14 Days Continue Cyanocobalamin [Vitamin B-12] 1,000 mcg PO Q48H Cholecalciferol [Vitamin D3] 2,000 unit PO DAILY Citalopram Hydrobromide [Citalopram HBr] 40 mg PO DAILY Gabapentin [Neurontin] 300 mg PO BID@0900,1700 Sennosides [Senna] 8.6 mg PO BID@0900,1700 Nitroglycerin Sl Tabs [Nitrostat] 0.4 mg SUBLINGUAL Q5M PRN PRN Reason: Chest Pain QUEtiapine [SEROquel] 400 mg PO HS Calcium Carbonate [Tums] 500 mg PO TID PRN PRN Reason: Indigestion Budesonide [Pulmicort] 0.5 mg INHALATION RT-BID neb Metoprolol Tartrate [Lopressor] 25 mg PO TID tab Ondansetron [Zofran] 4 mg PO Q8HR PRN PRN Reason: Nausea Calamine/Zinc Oxide Lotion [Calamine Lotion] 1 applic TOPICAL Q6H PRN PRN Reason: shoulder/chest rash Albuterol Nebulized [Ventolin Nebulized] 2.5 mg INHALATION RT-Q6H PRN PRN Reason: Shortness Of Breath Or Wheezing Amino Acids/Protein Hydrolys [Pro-Stat Supplement] 30 ml PO BID Vit C/E/Zn/Coppr/Lutein/Zeaxan [Preservision Areds 2 Softgel] 1 cap PO DAILY Atorvastatin [Lipitor] 10 mg PO HS Omeprazole 20 mg PO AC-BRKFST Ferrous Sulfate [Iron (65 MG Elemental)] 325 mg PO DAILY@1700 Apixaban [Eliquis] 5 mg PO BID tab Digoxin [Lanoxin] 125 mcg PO DAILY tab Oxybutynin Chloride [Ditropan] 5 mg PO BID tab Polyethylene Glycol 3350 [Miralax] 17 gm PO HS pack Acetaminophen-Codeine 300-30mg [Tylenol w/codeine #3] 1 tab PO Q8H PRN #30 PRN Reason: mild/moderate pain Acetaminophen [Tylenol] 650 mg PO Q4H PRN PRN Reason: Mild Pain Discontinued Loratadine [Claritin] 10 mg PO DAILY Aspirin EC [Ecotrin Low Dose] 81 mg PO DAILY Piperacillin-Tazobactam [Zosyn] 3.375 gm IVPB Q8HR #30 bag Discharge Medication List Cholecalciferol [Vitamin D3] 2,000 unit PO DAILY 08/06/14 [History] Citalopram Hydrobromide [Citalopram HBr] 40 mg PO DAILY 08/06/14 [History] Cyanocobalamin [Vitamin B-12] 1,000 mcg PO Q48H 08/06/14 [History] Gabapentin [Neurontin] 300 mg PO BID@0900,1700 07/21/16 [History] Sennosides [Senna] 8.6 mg PO BID@0900,1700 07/21/16 [History] Nitroglycerin Sl Tabs [Nitrostat] 0.4 mg SUBLINGUAL Q5M PRN 07/22/16 [History] Calcium Carbonate [Tums] 500 mg PO TID PRN 07/27/16 [History] QUEtiapine [SEROquel] 400 mg PO HS 07/27/16 [History] Budesonide [Pulmicort] 0.5 mg INHALATION RT-BID neb 12/21/16 [Rx] Metoprolol Tartrate [Lopressor] 25 mg PO TID tab 12/21/16 [Rx] Albuterol Nebulized [Ventolin Nebulized] 2.5 mg INHALATION RT-Q6H PRN 12/30/16 [ History] Amino Acids/Protein Hydrolys [Pro-Stat Supplement] 30 ml PO BID 12/30/16 [ History] Atorvastatin [Lipitor] 10 mg PO HS 12/30/16 [History] Calamine/Zinc Oxide Lotion [Calamine Lotion] 1 applic TOPICAL Q6H PRN 12/30/16 [ History] Ferrous Sulfate [Iron (65 MG Elemental)] 325 mg PO DAILY@1700 12/30/16 [History] Omeprazole 20 mg PO AC-BRKFST 12/30/16 [History] Ondansetron [Zofran] 4 mg PO Q8HR PRN 12/30/16 [History] Vit C/E/Zn/Coppr/Lutein/Zeaxan [Preservision Areds 2 Softgel] 1 cap PO DAILY 02/07 [History] Acetaminophen-Codeine 300-30mg [Tylenol w/codeine #3] 1 tab PO Q8H PRN #30 [Rx] Apixaban [Eliquis] 5 mg PO BID tab 01/15/17 [Rx] Digoxin [Lanoxin] 125 mcg PO DAILY tab 01/15/17 [Rx] Oxybutynin Chloride [Ditropan] 5 mg PO BID tab 01/15/17 [Rx] Polyethylene Glycol 3350 [Miralax] 17 gm PO HS pack 01/15/17 [Rx] Acetaminophen [Tylenol] 650 mg PO Q4H PRN 01/18/17 [History] Ampicillin-Sulbactam [Unasyn] 3 gm IVPB Q6HR 14 Days 01/22/17 [Rx] Discharge Disposition: TRANSFER TO SNF/ECF <Marvin Elizabeth - Last Filed: 01/22/17 22:50> Hospital Course: Attending note. Date of service-01/22/2017 This patient was seen and examined by me . Discussed the patient with my nurse practitioner Ms. Ibarra. Blood pressure running on the lower side. We will transfuse 1 unit of blood and discharge the patient. On examination: Abdomen soft nontender psychiatry answering questions Investigations: Hemoglobin 7.3 Assessment and plan: Because of low blood pressure. Transfuse 1 unit of blood. Aspirin stopped. Because of paroxysmal atrial fibrillation resume Eliquis. The patient bleeds again and Eliquis may have to be stopped. Though no obvious source of bleeding was found. Per Dr. Elmore 2 more weeks of IV Unasyn. Discharge planning more than 35 minutes.
[2017-01-22 15:55] VITALS: RESP 16
[2017-01-22 16:09] VITALS: BP 92/53; PULSE 78; TEMP 98.9
[2017-01-23] MEDS ORDERED: LEVOFLOXACIN 750 MG TAB PO SCH (09:00)
== END 2017-01-22 18:31 | DRG 377 ==
LOC: EC 21:35 → SUPCPDRO 21:35 → 6SEL 23:51 → 4MS4W 01-21 12:15
PROVIDERS: ADMIT Hospitalist; ATTEND Hospitalist
PROC: 30233N1 Transfusion of Nonautologous Red Blood Cells into Peripheral Vein, Percutaneous Approach (ICD-10-PCS; 2017-01-19)
PROC: 0DJ08ZZ Inspection of Upper Intestinal Tract, Via Natural or Artificial Opening Endoscopic (ICD-10-PCS; principal; 2017-01-21 15:05)
PROC: 0DJD8ZZ Inspection of Lower Intestinal Tract, Via Natural or Artificial Opening Endoscopic (ICD-10-PCS; 2017-01-21 15:05)
DX: K92.2 Gastrointestinal hemorrhage, unspecified (principal); J18.9 Pneumonia, unspecified organism; T83.511A Infection and inflammatory reaction due to indwelling urethral catheter, initial encounter; N39.0 Urinary tract infection, site not specified; D62 Acute posthemorrhagic anemia; L02.412 Cutaneous abscess of left axilla; I48.0 Paroxysmal atrial fibrillation; B02.9 Zoster without complications; E83.42 Hypomagnesemia; E66.01 Morbid (severe) obesity due to excess calories; I10 Essential (primary) hypertension; G24.01 Drug induced subacute dyskinesia; F25.9 Schizoaffective disorder, unspecified; D53.9 Nutritional anemia, unspecified; E78.5 Hyperlipidemia, unspecified; F41.9 Anxiety disorder, unspecified; G60.9 Hereditary and idiopathic neuropathy, unspecified; H35.30 Unspecified macular degeneration; I25.10 Atherosclerotic heart disease of native coronary artery without angina pectoris; J45.909 Unspecified asthma, uncomplicated; K21.9 Gastro-esophageal reflux disease without esophagitis; K29.70 Gastritis, unspecified, without bleeding; K44.9 Diaphragmatic hernia without obstruction or gangrene; K57.30 Diverticulosis of large intestine without perforation or abscess without bleeding; F32.9 Major depressive disorder, single episode, unspecified; G43.909 Migraine, unspecified, not intractable, without status migrainosus; Z68.39 Body mass index [BMI] 39.0-39.9, adult; Z79.01 Long term (current) use of anticoagulants; Z79.82 Long term (current) use of aspirin; Z79.899 Other long term (current) drug therapy; Z85.42 Personal history of malignant neoplasm of other parts of uterus; Z82.49 Family history of ischemic heart disease and other diseases of the circulatory system; Y84.6 Urinary catheterization as the cause of abnormal reaction of the patient, or of later complication, without mention of misadventure at the time of the procedure
CPT/HCPCS: 36415; 43235; 45378; 71020; 80048; 80053; 80162; 81001; 82272; 82550; 82553; 82728; 83540; 83550; 83605; 83735; 84100; 84484; 85025; 85610; 85730; 86850; 86900; 86901; 86920; 87040; 87086; 93005; 94640; 94760; 96365; 96366; 96367; 96368; 99285

== ENCOUNTER 2017-02-24 18:56 | Inpatient (IN) | payer MEDICARE, OTHER ==
--- NOTE | 2017-02-24 19:45 | ED ---
Psych HPI - General Source: patient, EMS Mode of arrival: EMS Limitations: physical limitation - History of Present Illness MD Complaint: suicidal ideation Onset/Timin -: days(s) Associated Psychiatric Symptoms: depression, suicidal ideation History of same: Yes Quality: constant Worsens With: none Context: significant life stressor Associated Symptoms: denies other symptoms Treatments Prior to Arrival: none If Self Harm: admits thoughts of self harm, has plan <Deni Brantley - Last Filed: 02/24/17 20:54> <Jordi Berrios - Last Filed: 02/25/17 16:13> <Jordi Parr - Last Filed: 02/25/17 18:35> - General Chief Complaint: Psychiatric Symptoms Stated Complaint: Mental Health Time Seen by Provider: 02/24/17 19:01 - History of Present Illness Initial Comments: This is a 61-year-old female presents from extended care facility who presents with a chief complaint of depression, suicidal ideations. Patient states that she is currently extended care facility secondary to debility from an infected wound she had in her left axilla. Patient states that being at the home and seeing everybody else make progress when she feels that she is not is making her depressed. The patient has a history of depression in the past, her last hospitalization for psychiatric issue was 10 years ago. Patient says that she does have a significant history of previous suicide attempts. Patient states that she was asked at the alf if she had any thoughts or plans of hurting herself, she replied that she did, initially intended to choke herself with her oxygen cord or the call light button. On initial evaluation, patient is calm and cooperative. Vital signs are stable. Patient does have one other complaint of dysuria. (Deni Brantley) - Related Data Home Medications Medication Instructions Recorded Confirmed RX: Cholecalciferol [Vitamin D3] 2,000 unit PO HS 08/06/14 02/25/17 RX: Citalopram Hydrobromide 40 mg PO DAILY 08/06/14 02/25/17 [Citalopram HBr] RX: Cyanocobalamin [Vitamin B-12] 1,000 mcg PO Q48H 08/06/14 02/25/17 RX: Gabapentin [Neurontin] 300 mg PO BID@0900,1700 07/21/16 02/25/17 RX: Nitroglycerin Sl Tabs 0.4 mg SUBLINGUAL Q5M PRN 07/22/16 02/25/17 [Nitrostat] RX: Calcium Carbonate [Tums] 500 mg PO TID PRN 07/27/16 02/25/17 RX: QUEtiapine [SEROquel] 400 mg PO HS 07/27/16 02/25/17 RX: Albuterol Nebulized [Ventolin 2.5 mg INHALATION RT-Q6H PRN 12/30/16 02/25/17 Nebulized] RX: Atorvastatin [Lipitor] 10 mg PO HS 12/30/16 02/25/17 RX: Calamine/Zinc Oxide Lotion 1 applic TOPICAL Q6H PRN 12/30/16 02/25/17 [Calamine Lotion] RX: Ferrous Sulfate [Iron (65 MG 325 mg PO DAILY@1700 12/30/16 02/25/17 Elemental)] RX: Omeprazole 20 mg PO AC-BID 12/30/16 02/25/17 RX: Ondansetron [Zofran] 4 mg PO Q8HR PRN 12/30/16 02/25/17 RX: Vit C/E/Zn/Coppr/Lutein/Zeaxan 1 cap PO DAILY 12/30/16 02/25/17 [Preservision Areds 2 Softgel] RX: Acetaminophen [Tylenol] 650 mg PO Q4H PRN 01/18/17 02/25/17 Amino Acids/Protein Hydrolys 30 ml PO BID 02/16/17 02/25/17 [Pro-Stat Supplement] Artificial Tears-Hypromellose 2 drops RIGHT EYE Q4H PRN 02/25/17 02/25/17 [Artificial Tear Drops] Calazime 1 applic TOPICAL Q12H PRN 02/25/17 02/25/17 Clotrimazole/Betamethasone Dip 1 applic TOPICAL BID PRN 02/25/17 02/25/17 [Lotrisone Cream] Oxybutynin Xl [Ditropan Xl] 5 mg PO BID 02/25/17 02/25/17 RX: Lactulose 10 gm PO BID PRN 02/25/17 02/25/17 RX: Metoprolol Tartrate [Lopressor] 25 mg PO Q8H 02/25/17 02/25/17 Tobramycin 0.3% Ophth Soln [Tobrex 1 drop BOTH EYES Q4H 02/25/17 02/25/17 0.3% Ophth Soln] traMADol HCL [Ultram] 100 mg PO Q6H PRN 02/25/17 02/25/17 Previous Rx's Medication Instructions Recorded RX: Budesonide [Pulmicort] 0.5 mg INHALATION RT-BID neb 12/21/16 RX: Acetaminophen-Codeine 300-30mg 1 tab PO Q8H PRN #30 01/15/17 [Tylenol w/codeine #3] RX: Apixaban [Eliquis] 5 mg PO BID tab 01/15/17 RX: Digoxin [Lanoxin] 125 mcg PO DAILY tab 01/15/17 Allergies Allergy/AdvReac Type Severity Reaction Status Date / Time bee venom protein (honey bee) Allergy Anaphylaxis Verified 02/25/17 07:06 lorazepam [From Ativan] Allergy Unknown Verified 02/25/17 07:06 Review of Systems ROS Other: All systems not noted in ROS Statement are negative. Constitutional: Denies: fever Eyes: Denies: vision change ENT: Denies: congestion Endocrine: Denies: fatigue Gastrointestinal: Denies: abdominal pain Genitourinary: Reports: dysuria Neurological: Denies: headache Psychiatric: Reports: depression <Deni Brantley - Last Filed: 02/24/17 20:54> ROS Other: All systems not noted in ROS Statement are negative. <Jordi Berrios - Last Filed: 02/25/17 16:13> ROS Other: All systems not noted in ROS Statement are negative. <Jordi Parr - Last Filed: 02/25/17 18:35> ROS Statement: Those systems with pertinent positive or pertinent negative responses have been documented in the HPI. Past Medical History Past Medical History: Asthma, Coronary Artery Disease (CAD), Cancer, Chest Pain / Angina, CVA/TIA, Eye Disorder, GERD/Reflux, Hyperlipidemia, Hypertension Additional Past Medical History / Comment(s): Bronchial asthma, obesity, chronic lower extremity edema, L axillae cellulitis/abscess-cultures grew peptostreptococcus and MSSA-had I&D . 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, R eye macular degeneration, bronchial asthma, TIA, hiatal hernia, uterine cancer with hysterectomy, tardive dyskinesia, peripheral neuropathy cause unknown, migraines, sinus problems has coronary artery disease with 50% lesion of the LAD , paroxysmal atrial fibrillation, hypertension, acid reflux, schizophrenic disorder, anxiety, peripheral neuropathy History of Any Multi-Drug Resistant Organisms: None Reported Past Surgical History: Adenoidectomy, Back Surgery, Cholecystectomy, Ear Surgery , Heart Catheterization, Hysterectomy, Tonsillectomy Additional Past Surgical History / Comment(s): I & D L axillae, L eye surgery for lazy eye, bilateral cataract removal, bilateral myringotomy/tubes, colonoscopy, cardiac cath on 07/24/2016 with moderate stenosis of LAD noted - no stenting at that time recommend medical management and return for angioplasty if sx persist Past Anesthesia/Blood Transfusion Reactions: No Reported Reaction Past Psychological History: Anxiety, Depression, Schizoaffective Disorder Smoking Status: Never smoker Past Alcohol Use History: None Reported Past Drug Use History: None Reported - Past Family History Mother Family Medical History: Myocardial Infarction ([place]) Additional Family Medical History / Comment(s): Mother at 72 yrs. Father Family Medical History: Cancer Additional Family Medical History / Comment(s): throat CA. Father at 72 yrs. Brother(s) Family Medical History: Cancer Additional Family Medical History / Comment(s): liver <Deni Brantley - Last Filed: 02/24/17 20:54> General Exam Limitations: no limitations General appearance: alert, in no apparent distress Head exam: Present: atraumatic, normocephalic Eye exam: Present: normal appearance Respiratory exam: Present: normal lung sounds bilaterally Cardiovascular Exam: Present: regular rate, normal rhythm, normal heart sounds GI/Abdominal exam: Present: soft Rectal exam: Present: deferred Extremities exam: Present: normal inspection Neurological exam: Present: alert, oriented X3 Psychiatric exam: Present: depressed, suicidal ideation Skin exam: Present: warm, dry, intact, other (Patient has a wound VAC in place in the left axilla, the wound appears clean, well-maintained. There is no surrounding erythema or visible drainage.) <Deni Brantley - Last Filed: 02/24/17 20:54> Course <Deni Brantley - Filed: 02/24/17 20:54> <Jordi Berrios - Last Filed: 02/25/17 16:13> <Jordi Parr - Last Filed: 02/25/17 18:35> Vital Signs 02/24/17 02/25/17 19:10 06:55 Temperature 98.5 F 98.8 F Pulse Rate 92 101 H Respiratory 18 18 Rate Blood Pressure 148/81 154/67 O2 Sat by Pulse 96 93 L Oximetry - Reevaluation(s) Reevaluation #1: 02/25/17 18:34 Spoke with psychiatry, as well as EP, as well as admitting physician, further management will be done to get patient stable from a psychiatric point of view ( Jordi Parr) Medical Decision Making <Deni Brantley - Last Filed: 02/24/17 20:54> <Jordi Berrios - Last Filed: 02/25/17 16:13> - Lab Data Result diagrams: 02/25/17 16:27 02/25/17 16:27 <Jordi Parr - Last Filed: 02/25/17 18:35> - Medical Decision Making Patient presents with chief complaint of suicidal ideations, and suicidal plan. Patient will have a breathalyzer test, and be cleared for evaluation by EPS. We'll send a urinalysis as patient is complaining of dysuria, and urine is grossly contaminated at bedside. 8:54 PM Urinalysis shows strong evidence of urinary tract infection. A urine culture was sent, the patient was given her first dose of Bactrim in the emergency department. I wrote her a prescription for Bactrim. She was evaluated by EPS, they're going to attempt to place her in a geriatric psychiatric facility. This case will be signed out to the care of Dr. Chapin. (Deni Brantley) Dr. Parr taking over the care of this patient at 5 PM (Jordi Berrios) 61 female in the ER for evaluation of psychiatric and suicidal disease, patient will be admitted for psychiatric evaluation and treatment, patient's unsafe patient for floor secondary to decreased mobility no mobility state as well as wound VAC. Psychiatry did see patient here in the emergency room patient will be continued to be followed (Jordi Parr) - Lab Data Lab Results 10/09/0702/25/17 02/25/17 Range/Units 19:45 16:27 16:27 WBC 7.2 (3.8-10.6) k/uL RBC 3.08 L (3.80-5.40) m/uL Hgb 9.4 L (11.4-16.0) gm/dL Hct 30.0 L (34.0-46.0) % MCV 97.4 (80.0-100.0) fL MCH 30.6 (25.0-35.0) pg MCHC 31.5 (31.0-37.0) g/dL RDW 15.1 (11.5-15.5) % Plt Count 319 (150-450) k/uL Neutrophils % 63 % Lymphocytes % 25 % Monocytes % 6 % Eosinophils % 4 % Basophils % 1 % Neutrophils # 4.5 (1.3-7.7) k/uL Lymphocytes # 1.8 (1.0-4.8) k/uL Monocytes # 0.4 (0-1.0) k/uL Eosinophils # 0.3 (0-0.7) k/uL Basophils # 0.0 (0-0.2) k/uL Sodium 139 (137-145) mmol/L Potassium 3.8 (3.5-5.1) mmol/L Chloride 106 (98-107) mmol/L Carbon Dioxide 27 (22-30) mmol/L Anion Gap 6 mmol/L BUN 14 (7-17) mg/dL Creatinine 0.80 (0.52-1.04) mg/dL Est GFR (MDRD) Af Amer >60 (>60 ml/min/1.73 sqM) Est GFR (MDRD) Non-Af >60 (>60 ml/min/1.73 sqM) Glucose 98 (74-99) mg/dL Calcium 9.0 (8.4-10.2) mg/dL Total Bilirubin 0.2 (0.2-1.3) mg/dL AST 54 H (14-36) U/L ALT 47 (9-52) U/L Alkaline Phosphatase 120 (38-126) U/L Total Protein 5.7 L (6.3-8.2) g/dL Albumin 2.6 L (3.5-5.0) g/dL TSH 3.590 (0.465-4.680) mIU/L Urine Color Yellow Urine Appearance Cloudy H (Clear) Urine pH 6.5 (5.0-8.0) Ur Specific [place] 1.014 (1.001-1.035) Urine Protein 2+ H (Negative) Urine Glucose (UA) Negative (Negative) Urine Ketones Negative (Negative) Urine Blood Large H (Negative) Urine Nitrite Positive H (Negative) Urine Bilirubin Negative (Negative) Urine Urobilinogen <2.0 (<2.0) mg/dL Ur Leukocyte Esterase Large H (Negative) Urine RBC >182 H (0-5) /hpf Urine WBC 117 H (0-5) /hpf Urine WBC Clumps Few H (None) /hpf Urine Bacteria Rare H (None) /hpf Urine Mucus Rare H (None) /hpf Urine Yeast (Budding) Rare H (None) /hpf Disposition <Deni Brantley - Last Filed: 02/24/17 20:54> <Jordi Berrios - Last Filed: 02/25/17 16:13> <Jordi Parr - Last Filed: 02/25/17 18:35> Clinical Impression: Suicidal ideation Disposition: ADMITTED IP TO THIS HOSP Condition: Fair Referrals: Loki Gomes MD [Primary Care Provider] - 1-2 days
[2017-02-24 20:02] LABS: Appearance,Urine Cloudy (Clear); Bacteria,Urine Rare /hpf; Bilirubin,Urine Negative (Negative); Glucose,Urine (UA) Negative (Negative); Ketones,Urine Negative (Negative); Leukocyte Esterase,Urine Large (Negative); Mucus,Urine Rare /hpf; Nitrite,Urine Positive (Negative); PH, Urine 6.5 (5.0-8.0); Particle Count 20534; Protein,Urine 2+ (Negative); RBC,Urine >182 /hpf (0-5); Specific Gravity,Urine 1.014 (1.001-1.035); UA Billing (MACRO vs. MICRO) MICRO; Urobilinogen,Urine <2.0 mg/dL (<2.0); WBC,Urine 117 /hpf (0-5)
[2017-02-24] MEDS ORDERED: SULFAMETHOX-TMP 800-160MG 1 EACH TAB PO STA (20:22)
[2017-02-25] MEDS ORDERED: Acetaminophen-Codeine 300-30mg TAB PO STA ×2 (02:05→10:27)
[2017-02-25] MEDS ORDERED: HYDROCORTISONE 1% CREAM 30 GM TUBE TOPICAL PRN (06:13)
--- NOTE | 2017-02-25 06:32 | CDI ---
Documentation Clarification OP Dear Deni Win Please do addendum to ED report for missing clinical impression. Thank you, Agus Lima Premium Auditor If you have any questions, please contact Process Excellence Manager at [phone] [facility]
[2017-02-25] MEDS: SULFAMETHOX-TMP 800-160MG 1 EACH TAB PO SCH (10:32)
[2017-02-25 16:31] LABS: Basophils % (A) 1 %; CH 31.4; CHCM 32.4; Eosinophils # (A) 0.3 k/uL (0-0.7); Eosinophils % (A) 4 %; HDW 2.37; HGB 9.4 gm/dL (11.4-16.0); Luc # (Auto) 0.15; Luc % (Auto) 2; Lymphocytes # (A) 1.8 k/uL (1.0-4.8); Lymphocytes % (A) 25 %; MCH 30.6 pg (25.0-35.0); MCHC 31.5 g/dL (31.0-37.0); MCV 97.4 fL (80.0-100.0); Mean Platelet Volume 7.9; Monocytes # (A) 0.4 k/uL (0-1.0); Monocytes % (A) 6 %; Neutrophils # (A) 4.5 k/uL (1.3-7.7); Neutrophils % (A) 63 %; RBC 3.08 m/uL (3.80-5.40); RDW 15.1 % (11.5-15.5); WBC 7.2 k/uL (3.8-10.6); WBC (Perox) 7.24
[2017-02-25 16:48] LABS: ALT 47 U/L (9-52); AST 54 U/L (14-36); Alkaline Phosphatase 120 U/L (38-126); Anion Gap 6 mmol/L; Blood Urea Nitrogen 14 mg/dL (7-17); Carbon Dioxide 27 mmol/L (22-30); Chloride 106 mmol/L (98-107); Glucose 98 mg/dL (74-99); Non-African American GFR(MDRD) >60 (>60 ml/min/1.73 sqM); Potassium 3.8 mmol/L (3.5-5.1); Sodium 139 mmol/L (137-145); Total Bilirubin 0.2 mg/dL (0.2-1.3); Total Protein 5.7 g/dL (6.3-8.2)
[2017-02-25] MEDS ORDERED: SODIUM CHLORIDE 0.9% 1,000 ML IV ONE (18:31)
--- NOTE | 2017-02-25 20:53 | P.CN ---
Psychiatric Consult - . Consult:: Formal Consult to chemo: Briefly, Patient seen and evaluated in the ER prior to her being admitted onto the medical floor. Patient is a 61 year old female with a history of schizoaffective disorder, bipolar type. She currently requires inpatient psychiatric care due to a depressive episode and suicidal ideation but due to her wound vac requires inpatient admission to a facility capable of providing both psychiatric and wound care. This would ideally be a med/psych unit where patient could receive said services. Patient is calm, cooperative, pleasant. Her Serouquel has been increased to help with her AHs that have worsened over the last 2 weeks, and the patient has been started on bacolofen for muscle cramps and spasms and to help with sleep. Recommendations: * increase Seroquel to 600-mg PO QHS * decrease Celexa to 20-mg PO QAM * start Baclofen 10-mg PO QID PRN for muscle spasms/pain * patient will require inpatient med/psych admission once a bed is available ~ Rusty Centeno DO
[2017-02-25 23:00] LABS: Creatine Kinase 29 U/L (30-135)
[2017-02-25 23:12] LABS: Creatine Kinase MB 0.4 ng/mL (0.0-2.4); Troponin I <0.012 ng/mL (0.000-0.034)
[2017-02-26 00:26] VITALS: BMI 38.8
[2017-02-26] MEDS: BACLOFEN 10 MG TAB PO SCH ×5 (00:39→21:20)
[2017-02-26] MEDS: QUEtiapine 200 MG TAB PO SCH ×2 (00:39→20:04)
[2017-02-26] MEDS ORDERED: ARTIFICIAL TEARS-HYPROMELLOSE DROPS 15 ML BTL RIGHT EYE PRN (01:04)
[2017-02-26] MEDS ORDERED: CALAMINE/ZINC OXIDE LOTION 177 ML BTL TOPICAL PRN (01:04)
[2017-02-26] MEDS ORDERED: LACTULOSE 20 GM/30 ML CUP PO PRN (01:04)
[2017-02-26] MEDS ORDERED: NITROGLYCERIN SL TABS 0.4 MG TAB SUBLINGUAL PRN (01:04)
[2017-02-26] MEDS ORDERED: traMADol 50 MG TAB PO PRN (01:04)
[2017-02-26] MEDS ORDERED: CLOTRIMAZOLE/BETAMETH 1-0.05% CREAM 45 GM TUBE TOPICAL PRN (01:04)
[2017-02-26] MEDS ORDERED: CALAZIME TOPICAL PRN (01:04)
[2017-02-26] MEDS ORDERED: CALCIUM CARBONATE 500 MG CHEWABLE PO PRN (01:04)
[2017-02-26] MEDS ORDERED: ONDANSETRON 4 MG/2 ML VIAL IVP PRN (01:08)
[2017-02-26] MEDS: SULFAMETHOX-TMP 800-160MG 1 EACH TAB PO SCH ×3 (01:11→20:05)
[2017-02-26] MEDS: Acetaminophen-Codeine 300-30mg TAB PO PRN (01:51)
[2017-02-26] MEDS: DIGOXIN 125 MCG TAB PO SCH (07:51)
[2017-02-26] MEDS: CYANOCOBALAMIN 500 MCG TAB PO SCH (07:51)
[2017-02-26] MEDS: CITALOPRAM HYDROBROMIDE 20 MG TAB PO SCH (07:51)
[2017-02-26] MEDS: PANTOPRAZOLE 40 MG TABLET PO SCH ×2 (07:51→17:09)
[2017-02-26] MEDS: OXYBUTYNIN XL 5 MG TAB.ER.24 PO SCH ×2 (07:52→20:05)
[2017-02-26] MEDS: METOPROLOL TARTRATE 25 MG TAB PO SCH ×2 (07:52→17:09)
[2017-02-26] MEDS: GABAPENTIN 300 MG CAP PO SCH ×2 (07:52→17:09)
[2017-02-26] MEDS: VIT A,C & E-LUTEIN-MINERALS 1 EACH TAB PO SCH (07:53)
[2017-02-26] MEDS: ALBUTEROL NEBULIZED 2.5 MG/3 ML INHALATION PRN ×2 (08:18→20:08)
[2017-02-26] MEDS: BUDESONIDE 0.5 MG/2 ML NEBU INHALATION SCH ×2 (08:18→20:08)
[2017-02-26] MEDS ORDERED: NON-FORMULARY DRUG (Amino Acids/Protein Hydrolys [Pro-Stat Supplement] 30 ML) PO SCH (09:00)
[2017-02-26] MEDS ORDERED: CITALOPRAM HYDROBROMIDE 20 MG TAB PO SCH (09:00)
[2017-02-26] MEDS ORDERED: ENOXAPARIN 40 MG/0.4 ML SYRINGE SQ SCH (09:00)
[2017-02-26] MEDS ORDERED: ASPIRIN 81 MG PO SCH (09:30)
--- NOTE | 2017-02-26 09:50 | P.CRDCN ---
History of Present Illness Consult date: 02/26/17 History of present illness: This is a 61-year-old female patient of Dr. Jade. Past medical history significant for chronic stable coronary artery disease on chronic medical therapy, hyperlipidemia, hypertension and paroxysmal atrial fibrillation on long-term anticoagulation. She is being hospitalized for suicidal ideations and chronic infection. She came to the hospital from the [facility] after making statements about wanting to take her life. Upon examination she is seen sitting up in bed talking on the phone. She is in no acute distress. She states she had an episode of stabbing sharp chest pain yesterday evening while she was being brought in to her room on the fourth floor. She states to her it was more of an anxiety reaction because she was very upset after being in the emergency department for over 24 hours. She denies shortness of breath, dizziness or radiation of the pain to the arm neck jaw or back. She states she became mildly nauseous when this pain began felt very hot and flushed. These symptoms subsided on their own. Thus far she has had only one troponin drawn and it is negative. Potassium 3.8 , B1 14, creatinine 0.8, hemoglobin 9.4, TSH 3.5. Most recent echocardiogram was performed in December 2016 showed preserved left ventricular function with an ejection fraction of 55-60%. She underwent cardiac catheterization in July 2016 which showed a 50% LAD lesion in the mid-portion at the origin of the diagonal branch. No stents were placed at that time she was placed on maximum medical therapy. All other arteries were free of significant disease at that time. Last month during an admission for her wound care she was found to be in paroxysmal atrial fibrillation and was treated with digoxin, Lopressor and placed on long-term anticoagulation with Eliquis. She last saw Dr. Jade in the office in July 2016 and at that time her Imdur was decreased from 90 mg a day to 60 mg a day. She is not currently on Imdur since last admission. This will be addressed as an outpatient. Review of Systems CONSTITUTIONAL: Complains of fever and chills. EYES: Denies blurred vision. Denies vision changes. Denies eye pain. EARS, NOSE, MOUTH & THROAT: Denies headache. Denies sore throat. Denies ear pain. CARDIOVASCULAR: Complains of chest pain. Denies shortness of breath. Denies orthopnea. Denies PND. Denies palpitations. RESPIRATORY: Denies cough. GASTROINTESTINAL: Denies abdominal pain. Denies diarrhea. Denies constipation. Denies nausea. Denies vomitng. MUSCULOSKELETAL: Denies myalgias. INTEGUMENTARY: Denies pruitis. Denies rash. Chronic wound to left axilla. NEUROLOGIC: Denies numbness. Denies tingling. Denies weakness. PSYCHIATRIC: Complains of anxiety about being in the hospital and depression regarding ongoing wound and poor prognosis. ENDOCRINE: Denies fatigue. Denies weight change. Denies polydipsia. Denies polyurina. GENITOURINARY: Denies burning, hematuria or urgency with micturation. Complains of pain at catheter site. HEMATOLOGIC: Denies history of anemia. Denies bleeding. Past Medical History Past Medical History: Asthma, Coronary Artery Disease (CAD), Cancer, Chest Pain / Angina, CVA/TIA, Eye Disorder, GERD/Reflux, Hyperlipidemia, Hypertension Additional Past Medical History / Comment(s): Bronchial asthma, obesity, chronic lower extremity edema, L axillae cellulitis/abscess-cultures grew peptostreptococcus and MSSA-had I&D . Other hx: shingles/staph, R eye macular degeneration, TIA, hiatal hernia, uterine cancer with hysterectomy, tardive dyskinesia, peripheral neuropathy cause unknown, migraines, sinus problems has coronary artery disease with 50% lesion of the LAD, paroxysmal atrial fibrillation, hypertension, acid reflux, schizophrenic disorder, anxiety, peripheral neuropathy, wound vac, PICC line (removed), retention w/ chronic Bell. History of Any Multi-Drug Resistant Organisms: None Reported Past Surgical History: Adenoidectomy, Back Surgery, Cholecystectomy, Ear Surgery , Heart Catheterization, Hysterectomy, Tonsillectomy Additional Past Surgical History / Comment(s): I & D L axillae, L eye surgery for lazy eye, bilateral cataract removal, bilateral myringotomy/tubes, colonoscopy, cardiac cath on 07/24/2016 with moderate stenosis of LAD noted - no stenting at that time recommend medical management and return for angioplasty if sx persist Past Anesthesia/Blood Transfusion Reactions: No Reported Reaction Past Psychological History: Anxiety, Depression, Schizoaffective Disorder Additional Psychological History / Comment(s): Is normally a resident of a [facility]. Smoking Status: Never smoker Past Alcohol Use History: None Reported Additional Past Alcohol Use History / Comment(s): Pt states she used to drink occasionally but has not had any alcohol since 2006. Denies alcoholism. Past Drug Use History: None Reported - Past Family History Mother Family Medical History: Myocardial Infarction (SD) Additional Family Medical History / Comment(s): Mother at 72 yrs. Father Family Medical History: Cancer Additional Family Medical History / Comment(s): Throat cancer; father at 72 yrs. Brother(s) Family Medical History: Cancer Additional Family Medical History / Comment(s): Liver cancer Medications and Allergies Home Medications Medication Instructions Recorded Confirmed Type Cholecalciferol [Vitamin D3] 2,000 unit PO HS 08/06/14 02/25/17 History Citalopram Hydrobromide 40 mg PO DAILY 08/06/14 02/25/17 History [Citalopram HBr] Cyanocobalamin [Vitamin B-12] 1,000 mcg PO Q48H 08/06/14 02/25/17 History Gabapentin [Neurontin] 300 mg PO BID@0900,1700 07/21/16 02/25/17 History Nitroglycerin Sl Tabs [Nitrostat] 0.4 mg SUBLINGUAL Q5M PRN 07/22/16 02/25/17 History Calcium Carbonate [Tums] 500 mg PO TID PRN 07/27/16 02/25/17 History QUEtiapine [SEROquel] 400 mg PO HS 07/27/16 02/25/17 History Budesonide [Pulmicort] 0.5 mg INHALATION RT-BID neb 12/21/16 02/25/17 Rx Albuterol Nebulized [Ventolin 2.5 mg INHALATION RT-Q6H PRN 12/30/16 02/25/17 History Nebulized] Atorvastatin [Lipitor] 10 mg PO HS 12/30/16 02/25/17 History Calamine/Zinc Oxide Lotion 1 applic TOPICAL Q6H PRN 12/30/16 02/25/17 History [Calamine Lotion] Ferrous Sulfate [Iron (65 MG 325 mg PO DAILY@1700 12/30/16 02/25/17 History Elemental)] Omeprazole 20 mg PO AC-BID 12/30/16 02/25/17 History Ondansetron [Zofran] 4 mg PO Q8HR PRN 12/30/16 02/25/17 History Vit C/E/Zn/Coppr/Lutein/Zeaxan 1 cap PO DAILY 12/30/16 02/25/17 History [Preservision Areds 2 Softgel] Acetaminophen-Codeine 300-30mg 1 tab PO Q8H PRN #30 01/15/17 02/25/17 Rx [Tylenol w/codeine #3] Apixaban [Eliquis] 5 mg PO BID tab 01/15/17 02/25/17 Rx Digoxin [Lanoxin] 125 mcg PO DAILY tab 01/15/17 02/25/17 Rx Acetaminophen [Tylenol] 650 mg PO Q4H PRN 01/18/17 02/25/17 History Amino Acids/Protein Hydrolys 30 ml PO BID 02/16/17 02/25/17 History [Pro-Stat Supplement] Artificial Tears-Hypromellose 2 drops RIGHT EYE Q4H PRN 02/25/17 02/25/17 History [Artificial Tear Drops] Calazime 1 applic TOPICAL Q12H PRN 02/25/17 02/25/17 History Clotrimazole/Betamethasone Dip 1 applic TOPICAL BID PRN 02/25/17 02/25/17 History [Lotrisone Cream] Lactulose 10 gm PO BID PRN 02/25/17 02/25/17 History Metoprolol Tartrate [Lopressor] 25 mg PO Q8H 02/25/17 02/25/17 History Oxybutynin Xl [Ditropan Xl] 5 mg PO BID 02/25/17 02/25/17 History Tobramycin 0.3% Ophth Soln [Tobrex 1 drop BOTH EYES Q4H 02/25/17 02/25/17 History 0.3% Ophth Soln] traMADol HCL [Ultram] 100 mg PO Q6H PRN 02/25/17 02/25/17 History Allergies Allergy/AdvReac Type Severity Reaction Status Date / Time bee venom protein (honey bee) Allergy Anaphylaxis Verified 02/25/17 07:06 lorazepam [From Ativan] Allergy Unknown Verified 02/25/17 07:06 Physical Exam Vitals: Vital Signs Temp Pulse Pulse Resp BP BP Pulse Ox 02/26/17 08:31 100 02/26/17 08:21 100 02/26/17 07:00 98.6 F 108 H 18 119/54 92 L 02/25/17 23:00 99.2 F 97 16 129/78 93 L 02/25/17 19:35 101.0 F H 105 H 16 124/89 92 L 02/25/17 19:28 100.1 F H 99 17 133/67 96 Intake and Output 02/25/17 02/26/17 02/26/17 22:59 06:59 14:59 Intake Total 300 Output Total 250 1150 Balance 50 -1150 Intake: Oral 300 Output: Urine 250 1150 Other: Voiding Method Indwelling Catheter # Voids 1 1 Weight 99.5 kg GENERAL: This is a 61-year-old female in no apparent distress at the time of my examination. Morbid obesity. Appears older than stated age. HEENT: Head is atraumatic, normocephalic. Pupils are equal, round. Sclerae anicteric. Conjunctivae are clear. Mucous membranes of the mouth are moist. Neck is supple. There is no jugular venous distention. No carotid bruit is heard. LUNGS: Clear to auscultation no wheezes, rales or rhonchi. No chest wall tenderness is noted on palpation or with deep breathing. Breathing treatment ongoing during assessment. HEART: Regular rate and rhythm without murmurs, rubs or gallops. S1 and S2 heard. ABDOMEN: Soft, nontender. Bowel sounds are heard. No organomegaly noted. EXTREMITIES: 2+ peripheral pulses with no evidence of peripheral edema and no calf tenderness noted. Wound vac to left axilla. NEUROLOGIC: Patient is awake, alert and oriented x3. Results 02/25/17 16:27 02/25/17 16:27 Cardiac Enzymes 02/25/17 02/25/17 Range/Units 16:27 22:15 AST 54 H (14-36) U/L CK-MB (CK-2) 0.4 (0.0-2.4) ng/mL Troponin I <0.012 (0.000-0.034) ng/mL CBC 02/25/17 Range/Units 16:27 WBC 7.2 (3.8-10.6) k/uL RBC 3.08 L (3.80-5.40) m/uL Hgb 9.4 L (11.4-16.0) gm/dL Hct 30.0 L (34.0-46.0) % Plt Count 319 (150-450) k/uL Comprehensive Metabolic Panel 02/25/17 Range/Units 16:27 Sodium 139 (137-145) mmol/L Potassium 3.8 (3.5-5.1) mmol/L Chloride 106 (98-107) mmol/L Carbon Dioxide 27 (22-30) mmol/L BUN 14 (7-17) mg/dL Creatinine 0.80 (0.52-1.04) mg/dL Glucose 98 (74-99) mg/dL Calcium 9.0 (8.4-10.2) mg/dL AST 54 H (14-36) U/L ALT 47 (9-52) U/L Alkaline Phosphatase 120 (38-126) U/L Total Protein 5.7 L (6.3-8.2) g/dL Albumin 2.6 L (3.5-5.0) g/dL Current Medications Generic Name Dose Route Start Last Admin Trade Name Freq PRN Reason Stop Dose Admin Acetaminophen 650 mg 02/26/17 01:04 Tylenol Tab PO Q4H PRN Mild Pain Acetaminophen/Codeine Phosphate 1 each 02/26/17 01:04 02/26/17 01:51 Tylenol #3 PO 1 each Q8H PRN Administration moderate pain Albuterol Sulfate 2.5 mg 02/26/17 01:04 02/26/17 08:18 Ventolin Nebulized INHALATION 2.5 mg RT-Q6H PRN Administration Shortness Of Breath Or Wheezing Artificial Tears 2 drops 02/26/17 01:04 Artificial Tear Drops RIGHT EYE Q4H PRN DRY EYES Atorvastatin Calcium 10 mg 02/26/17 21:00 Lipitor PO HS AMADA Baclofen 10 mg 02/25/17 22:00 02/26/17 07:51 Lioresal PO 10 mg QID AMADA Administration Betamethasone/Clotrimazole 1 applic 02/26/17 01:04 Lotrisone TOPICAL BID PRN RASH/REDNESS Budesonide 0.5 mg 02/26/17 08:00 02/26/17 08:18 Pulmicort INHALATION 0.5 mg RT-BID AMADA Administration Calamine 1 applic 02/26/17 01:04 Calamine Lotion TOPICAL Q6H PRN shoulder/chest rash Calcium Carbonate/Glycine 500 mg 02/26/17 01:04 Tums PO TID PRN Indigestion Cholecalciferol 2,000 unit 02/26/17 21:00 Vitamin D3 PO HS [facility] Citalopram Hydrobromide 20 mg 02/26/17 09:00 02/26/17 07:51 Celexa PO 20 mg DAILY [facility] Administration Cyanocobalamin 1,000 mcg 02/26/17 09:00 02/26/17 07:51 Vitamin B-12 PO 1,000 mcg Q48H [facility] Administration Digoxin 125 mcg 02/26/17 09:00 02/26/17 07:51 Lanoxin PO 125 mcg DAILY [facility] Administration Enoxaparin Sodium 40 mg 02/26/17 09:00 02/26/17 07:52 Lovenox SQ 40 mg DAILY [facility] Administration Ferrous Sulfate 325 mg 02/26/17 17:00 Feosol PO DAILY@1700 [facility] Gabapentin 300 mg 02/26/17 09:00 02/26/17 07:52 Neurontin PO 300 mg BID@0900,1700 [facility] Administration Hydrocortisone 1 applic 02/25/17 06:13 02/25/17 06:40 Hydrocortisone 1% Cream TOPICAL 1 applic BID PRN Administration Skin Irritation Lactulose 10 gm 02/26/17 01:04 Cephulac PO BID PRN Constipation Metoprolol Tartrate 25 mg 02/26/17 09:00 02/26/17 07:52 Lopressor PO 25 mg Q8H [facility] Administration Multivitamins/Minerals 1 each 02/26/17 09:00 02/26/17 07:53 Ivite PO 1 each DAILY [facility] Administration Nitroglycerin 0.4 mg 02/26/17 01:04 Nitrostat SUBLINGUAL Q5M PRN Chest Pain Ondansetron HCl 4 mg 02/26/17 01:08 02/26/17 01:51 Zofran IVP 4 mg Q6HR PRN Administration Nausea And Vomiting Oxybutynin Chloride 5 mg 02/26/17 09:00 02/26/17 07:52 Ditropan Xl PO 5 mg BID [facility] Administration Pantoprazole Sodium 40 mg 02/26/17 07:30 02/26/17 07:51 Protonix PO 40 mg AC-BID [facility] Administration Quetiapine Fumarate 600 mg 02/25/17 21:00 02/26/17 00:39 Seroquel PO 600 mg HS [facility] Administration Tobramycin 1 drops 02/26/17 01:15 Tobrex BOTH EYES Q4H [facility] Tramadol HCl 100 mg 02/26/17 01:04 Ultram PO Q6H PRN MODERATE Pain Trimethoprim/Sulfamethoxazole 1 each 02/25/17 09:30 02/26/17 07:53 Bactrim Ds PO 1 each BID [facility] Administration Intake and Output 02/25/17 02/26/17 02/26/17 22:59 06:59 14:59 Intake Total 300 Output Total 250 1150 Balance 50 -1150 Intake: Oral 300 Output: Urine 250 1150 Other: Voiding Method Indwelling Catheter # Voids 1 1 Weight 99.5 kg 02/25/17 16:27 02/25/17 16:27 EKG Interpretations (text) EKG reveals sinus tachycardia with a heart rate of 101 with nonspecific T-wave abnormalities. Assessment and Plan Plan: ASSESSMENT 1. Chest pain, atypical 2. History of chronic stable coronary artery disease on maximum medical therapy 3. Paroxysmal atrial fibrillation with controlled ventricular response on long- term anticoagulation 4. Dyslipidemia PLAN Continue to obtain serial cardiac enzymes and EKGs. This patient on cardiac rotary drier to evaluate for any abnormal arrhythmia. From cardiac perspective this patient's episode of chest pain sounds to be anxiety related. We will rule out with cardiac enzymes. We will put her back on extended release nitrate Imdur 60 mg daily. Continue all cardiac medications as previously ordered. Upon discharge she should follow up with Dr. Jade. The above impression and plan of care have been discussed and directed by the signing physician. Bianka Chery, nurse practitioner, acting as scribe for signing physician.
[2017-02-26] MEDS: APIXABAN 5 MG TAB PO SCH ×2 (09:55→20:04)
[2017-02-26] MEDS: ISOSORBIDE MONONITRATE ER 60 MG TAB.ER.24H PO SCH (11:46)
--- NOTE | 2017-02-26 15:51 | HP ---
HISTORY AND PHYSICAL DATE OF ADMISSION: 02/25/2017 DATE OF SERVICE: 02/26/2017 PRESENTING COMPLAINT: Suicidal ideation. HISTORY OF PRESENTING COMPLAINT: This is a 61-year-old patient known to me from prior admissions, a resident of [facility]. The patient has an axilla wound, chronic, with a wound VAC in place. Patient's chronic stable medical conditions include coronary artery disease, GERD, hypertension, hyperlipidemia, schizoaffective disorder, anxiety, peripheral neuropathy, paroxysmal atrial fibrillation. At the [facility] she was able to do some parallel bars. Patient became rather depressed and told one of the aides at the skilled nursing that she wanted to pull the oxygen thing around her neck and strangulate herself; hence she was brought down here to the ER. Because of medical reasons she was not admitted to the psychiatric unit and because of wound VAC being in place. Otherwise, patient is tolerating a diet. She is able to communicate. REVIEW OF SYSTEMS: CONSTITUTIONAL: Tired. HEENT: None. RESPIRATORY: None. CARDIOVASCULAR: None. GASTROINTESTINAL: None. GENITOURINARY: Urinary incontinence. DERMATOLOGICAL: Left axilla wound. LYMPHATICS: None. PSYCHIATRY: Depressed, suicidal. NEUROLOGICAL: Peripheral neuropathy. PAST MEDICAL HISTORY: 1. Herpes zoster, type 2. 2. Left axillary wound. 3. Coronary artery disease with non-obstructive 50% LAD lesion. 4. Paroxysmal atrial fibrillation. 5. GERD. 6. Hypertension. 7. Hyperlipidemia. 8. Chronic tardive dyskinesia. 9. Schizoaffective disorder. 10.Anxiety disorder. 11.Peripheral neuropathy. 12.Right eye macular degeneration. 13.Hiatal hernia. 14.Uterine cancer. PAST SURGICAL HISTORY: 1. Adenoidectomy. 2. Back surgery. 3. Cholecystectomy. 4. Cardiac catheterization. 5. Tonsillectomy. 6. Left eye surgery for lazy eye. 7. Bilateral cataract surgery. 8. Bilateral myringotomy with tubes. 9. Cardiac catheterization in July of this year showing 50% LAD lesion. SOCIAL HISTORY: Patient used to [facility] a [facility]. Currently staying at [facility]. No smoking. Alcohol rarely. FAMILY HISTORY: Mother at the age of 72, possibly from heart attack. HOME MEDICATIONS: 1. Ultram 100 mg q.6 p.r.n. 2. PreserVision soft gel 1 capsule p.o. daily. 3. Tobrex 0.3% 1 drop to both eyes q.4. 4. Seroquel 400 mg at bedtime. 5. Ditropan XL 5 mg p.o. b.i.d. 6. Zofran 4 mg p.o. q.8 p.r.n. 7. Omeprazole 20 mg p.o. b.i.d. 8. Nitrostat 0.4 sublingually q.5 p.r.n. 9. Lopressor 25 mg p.o. q.8. 10.Lactulose 10 grams p.o. b.i.d. p.r.n. 11.Neurontin 300 mg p.o. b.i.d. 12.Iron 325 p.o. daily. 13.Digoxin 125 mcg p.o. daily. 14.Vitamin B12 1000 mcg p.o. q.48. 15.Lotrisone 1 application topically b.i.d. p.r.n. 16.Celexa 40 mg p.o. daily. 17.Vitamin D3 2000 units p.o. at bedtime. 18.TUMS 500 units p.o. t.i.d. p.r.n. 19.Calazime topically q.12 p.r.n. 20.Calamine lotion topically q.6 p.r.n. 21.Pulmicort 0.5 inhalation b.i.d. 22.Lipitor 10 mg p.o. at bedtime. 23.Artificial Tears 2 drops right eye q.4 p.r.n. 24.Eliquis 5 mg p.o. b.i.d. 25.Pro Stat supplement 30 mL p.o. b.i.d. 26.Ventolin 2.5 q.6 p.r.n. 27.Tylenol 3 one tablet q.8 p.r.n. 28.Tylenol 650 mg q.4 p.r.n. ALLERGIES: 1. HONEY BEE. 2. ATIVAN. PHYSICAL EXAMINATION: VITAL SIGNS ON PRESENTATION: Temperature 99.3, pulse 94, respiration 16, blood pressure 118/55, pulse ox 93% on 2 L. Patient was noted to have a fever of 101. GENERAL APPEARANCE: Lying in bed. Comfortable. EYES: Pupils equal. Conjunctivae normal. HEENT: Oral cavity normal. NECK: JVD unable to assess. Mass not palpable. RESPIRATORY: Effort normal. LUNGS: Fair air entry. CARDIOVASCULAR: First and second sounds normal. No edema. ABDOMEN: Soft, nontender. Liver and spleen not palpable. LYMPHATIC: No lymph node palpable in neck or axillae. PSYCHIATRY: Patient is awake, able to answer simple questions, though depressed- appearing. Does say she is suicidal. DERMATOLOGIC: Wound VAC in the left axilla. INVESTIGATIONS: White count 7.2, hemoglobin 9.4, potassium 3.8. UA positive. ASSESSMENT: 1. Major depression with suicidal ideation. 2. Acute urinary tract infection. 3. 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 4. Coronary artery disease with non-obstructive 50% LAD lesion. 5. Gastroesophageal reflux disease. 6. Essential hypertension. 7. Hyperlipidemia. 8. Schizoaffective disorder, chronic. 9. Anxiety disorder. 10.Peripheral neuropathy, idiopathic. 11.Hiatal hernia. 12.Medical debility. PLAN: Home medications are resumed. Dr. Elmore from Infectious Disease is consulted; also Psychiatry Dr. Centeno was consulted. Patient has a sitter at the bedside. I will see if the wound VAC is still needed. Antibiotics will be coordinated by Dr. Elmore. MMODL / IJN: [id number] /
[2017-02-26] MEDS: FERROUS SULFATE 325 MG TAB PO SCH (17:09)
[2017-02-26] MEDS: TOBRAMYCIN 0.3% OPHTH DROPS 5 ML BTL BOTH EYES SCH ×3 (17:09→23:24)
[2017-02-26] MEDS: CHOLECALCIFEROL 1,000 UNIT TAB PO SCH (20:04)
[2017-02-26] MEDS: ATORVASTATIN 10 MG TAB PO SCH (20:04)
[2017-02-26] MEDS: ACETAMINOPHEN TAB 325 MG TAB PO PRN (20:15)
[2017-02-26] MEDS ORDERED: QUEtiapine 400 MG TAB PO SCH (21:00)
--- NOTE | 2017-02-26 23:36 | P.CONS ---
History of Present Illness - Reason for Consult Consult date: 02/26/17 - Chief Complaint Left axillary abscess - History of Present Illness 61-year-old female known to the infectious disease service from her recent hospitalizations is brought back to hospital. Having ongoing difficulties with her psychiatric illness. She does have difficulties medically with a significant abscess and ulcer to the left axillary area. This was incised and drained several weeks ago. Negative pressure therapy is been utilized. She's been following the wound healing center with Dr. sade vides. Is also been evaluated by the ID service there. Because of her needs to be transferred to an inpatient psychiatric facility further any nausea was requested regarding her wound care. The patient herself is quite desponded. She is arousable but a poor historian at this time. Further information does come from the chart. Review of Systems ROS unobtainable: due to mental status Past Medical History Past Medical History: Asthma, Coronary Artery Disease (CAD), Cancer, Chest Pain / Angina, CVA/TIA, Eye Disorder, GERD/Reflux, Hyperlipidemia, Hypertension Additional Past Medical History / Comment(s): Bronchial asthma, obesity, chronic lower extremity edema, L axillae cellulitis/abscess-cultures grew peptostreptococcus and MSSA-had I&D . Other hx: shingles/staph, R eye macular degeneration, TIA, hiatal hernia, uterine cancer with hysterectomy, tardive dyskinesia, peripheral neuropathy cause unknown, migraines, sinus problems has coronary artery disease with 50% lesion of the LAD, paroxysmal atrial fibrillation, hypertension, acid reflux, schizophrenic disorder, anxiety, peripheral neuropathy, wound vac, PICC line (removed), retention w/ chronic Bell. History of Any Multi-Drug Resistant Organisms: None Reported Past Surgical History: Adenoidectomy, Back Surgery, Cholecystectomy, Ear Surgery , Heart Catheterization, Hysterectomy, Tonsillectomy Additional Past Surgical History / Comment(s): I & D L axillae, L eye surgery for lazy eye, bilateral cataract removal, bilateral myringotomy/tubes, colonoscopy, cardiac cath on 07/24/2016 with moderate stenosis of LAD noted - no stenting at that time recommend medical management and return for angioplasty if sx persist Past Anesthesia/Blood Transfusion Reactions: No Reported Reaction Past Psychological History: Anxiety, Depression, Schizoaffective Disorder Additional Psychological History / Comment(s): Is normally a resident of a [facility]. Smoking Status: Never smoker Past Alcohol Use History: None Reported Additional Past Alcohol Use History / Comment(s): Pt states she used to drink occasionally but has not had any alcohol since 2006. Denies alcoholism. Past Drug Use History: None Reported - Past Family History Mother Family Medical History: Myocardial Infarction (VT) Additional Family Medical History / Comment(s): Mother at 72 yrs. Father Family Medical History: Cancer Additional Family Medical History / Comment(s): Throat cancer; father at 72 yrs. Brother(s) Family Medical History: Cancer Additional Family Medical History / Comment(s): Liver cancer Medications and Allergies Home Medications and Allergies Comment(s): Current Medications Acetaminophen (Tylenol Tab) 650 mg PO Q4H PRN PRN Reason: Mild Pain Last Admin: 02/26/17 20:15 Dose: 650 mg Acetaminophen/Codeine Phosphate (Tylenol #3) 1 each PO Q8H PRN PRN Reason: moderate pain Last Admin: 02/26/17 01:51 Dose: 1 each Albuterol Sulfate (Ventolin Nebulized) 2.5 mg INHALATION RT-Q6H PRN PRN Reason: Shortness Of Breath Or Wheezing Last Admin: 02/26/17 20:08 Dose: 2.5 mg Apixaban (Eliquis) 5 mg PO BID [facility] Last Admin: 02/26/17 20:04 Dose: 5 mg Artificial Tears (Artificial Tear Drops) 2 drops RIGHT EYE Q4H PRN PRN Reason: DRY EYES Atorvastatin Calcium (Lipitor) 10 mg PO [facility] Last Admin: 02/26/17 20:04 Dose: 10 mg Baclofen (Lioresal) 10 mg PO QID [facility] Last Admin: 02/26/17 21:20 Dose: 10 mg Betamethasone/Clotrimazole (Lotrisone) 1 applic TOPICAL BID PRN PRN Reason: RASH/REDNESS Budesonide (Pulmicort) 0.5 mg INHALATION RT-BID [facility] Last Admin: 02/26/17 20:08 Dose: 0.5 mg Calamine (Calamine Lotion) 1 applic TOPICAL Q6H PRN PRN Reason: shoulder/chest rash Calcium Carbonate/Glycine (Tums) 500 mg PO TID PRN PRN Reason: Indigestion Cholecalciferol (Vitamin D3) 2,000 unit PO [facility] Last Admin: 02/26/17 20:04 Dose: 2,000 unit Citalopram Hydrobromide (Celexa) 20 mg PO DAILY [facility] Last Admin: 02/26/17 07:51 Dose: 20 mg Cyanocobalamin (Vitamin B-12) 1,000 mcg PO Q48H [facility] Last Admin: 02/26/17 07:51 Dose: 1,000 mcg Digoxin (Lanoxin) 125 mcg PO DAILY [facility] Last Admin: 02/26/17 07:51 Dose: 125 mcg Ferrous Sulfate (Feosol) 325 mg PO DAILY@1700 [facility] Last Admin: 02/26/17 17:09 Dose: 325 mg Gabapentin (Neurontin) 300 mg PO BID@0900,1700 [facility] Last Admin: 02/26/17 17:09 Dose: 300 mg Hydrocortisone (Hydrocortisone 1% Cream) 1 applic TOPICAL BID PRN PRN Reason: Skin Irritation Last Admin: 02/25/17 06:40 Dose: 1 applic Isosorbide Mononitrate (Imdur) 60 mg PO DAILY [facility] Last Admin: 02/26/17 11:46 Dose: 60 mg Lactulose (Cephulac) 10 gm PO BID PRN PRN Reason: Constipation Metoprolol Tartrate (Lopressor) 25 mg PO Q8H [facility] Last Admin: 02/26/17 17:09 Dose: 25 mg Multivitamins/Minerals (Ivite) 1 each PO DAILY [facility] Last Admin: 02/26/17 07:53 Dose: 1 each Nitroglycerin (Nitrostat) 0.4 mg SUBLINGUAL Q5M PRN PRN Reason: Chest Pain Ondansetron HCl (Zofran) 4 mg IVP Q6HR PRN PRN Reason: Nausea And Vomiting Last Admin: 02/26/17 01:51 Dose: 4 mg Oxybutynin Chloride (Ditropan Xl) 5 mg PO BID [facility] Last Admin: 02/26/17 20:05 Dose: 5 mg Pantoprazole Sodium (Protonix) 40 mg PO AC-BID [facility] Last Admin: 02/26/17 17:09 Dose: 40 mg Quetiapine Fumarate (Seroquel) 600 mg PO HS [facility] Last Admin: 02/26/17 20:04 Dose: 600 mg Tobramycin (Tobrex) 1 drops BOTH EYES Q4HR [facility] Last Admin: 02/26/17 23:24 Dose: 1 drops Tramadol HCl (Ultram) 100 mg PO Q6H PRN PRN Reason: MODERATE Pain Trimethoprim/Sulfamethoxazole (Bactrim Ds) 1 each PO BID [facility] Last Admin: 02/26/17 20:05 Dose: 1 each Home Medications Medication Instructions Recorded Confirmed Type Cholecalciferol [Vitamin D3] 2,000 unit PO HS 08/06/14 02/25/17 History Citalopram Hydrobromide 40 mg PO DAILY 08/06/14 02/25/17 History [Citalopram HBr] Cyanocobalamin [Vitamin B-12] 1,000 mcg PO Q48H 08/06/14 02/25/17 History Gabapentin [Neurontin] 300 mg PO BID@0900,1700 07/21/16 02/25/17 History Nitroglycerin Sl Tabs [Nitrostat] 0.4 mg SUBLINGUAL Q5M PRN 07/22/16 02/25/17 History Calcium Carbonate [Tums] 500 mg PO TID PRN 07/27/16 02/25/17 History QUEtiapine [SEROquel] 400 mg PO HS 07/27/16 02/25/17 History Budesonide [Pulmicort] 0.5 mg INHALATION RT-BID neb 12/21/16 02/25/17 Rx Albuterol Nebulized [Ventolin 2.5 mg INHALATION RT-Q6H PRN 12/30/16 02/25/17 History Nebulized] Atorvastatin [Lipitor] 10 mg PO HS 12/30/16 02/25/17 History Calamine/Zinc Oxide Lotion 1 applic TOPICAL Q6H PRN 12/30/16 02/25/17 History [Calamine Lotion] Ferrous Sulfate [Iron (65 MG 325 mg PO DAILY@1700 12/30/16 02/25/17 History Elemental)] Omeprazole 20 mg PO AC-BID 12/30/16 02/25/17 History Ondansetron [Zofran] 4 mg PO Q8HR PRN 12/30/16 02/25/17 History Vit C/E/Zn/Coppr/Lutein/Zeaxan 1 cap PO DAILY 12/30/16 02/25/17 History [Preservision Areds 2 Softgel] Acetaminophen-Codeine 300-30mg 1 tab PO Q8H PRN #30 01/15/17 02/25/17 Rx [Tylenol w/codeine #3] Apixaban [Eliquis] 5 mg PO BID tab 01/15/17 02/25/17 Rx Digoxin [Lanoxin] 125 mcg PO DAILY tab 01/15/17 02/25/17 Rx Acetaminophen [Tylenol] 650 mg PO Q4H PRN 01/18/17 02/25/17 History Amino Acids/Protein Hydrolys 30 ml PO BID 02/16/17 02/25/17 History [Pro-Stat Supplement] Artificial Tears-Hypromellose 2 drops RIGHT EYE Q4H PRN 02/25/17 02/25/17 History [Artificial Tear Drops] Calazime 1 applic TOPICAL Q12H PRN 02/25/17 02/25/17 History Clotrimazole/Betamethasone Dip 1 applic TOPICAL BID PRN 02/25/17 02/25/17 History [Lotrisone Cream] Lactulose 10 gm PO BID PRN 02/25/17 02/25/17 History Metoprolol Tartrate [Lopressor] 25 mg PO Q8H 02/25/17 02/25/17 History Oxybutynin Xl [Ditropan Xl] 5 mg PO BID 02/25/17 02/25/17 History Tobramycin 0.3% Ophth Soln [Tobrex 1 drop BOTH EYES Q4H 02/25/17 02/25/17 History 0.3% Ophth Soln] traMADol HCL [Ultram] 100 mg PO Q6H PRN 02/25/17 02/25/17 History Allergies Allergy/AdvReac Type Severity Reaction Status Date / Time bee venom protein (honey bee) Allergy Anaphylaxis Verified 02/25/17 07:06 lorazepam [From Ativan] Allergy Unknown Verified 02/25/17 07:06 Physical Exam Vitals: Vital Signs Temp Pulse Pulse Resp BP Pulse Ox 02/26/17 20:23 79 02/26/17 20:08 74 02/26/17 20:05 72 114/59 02/26/17 15:00 98.6 F 85 18 111/59 94 L 02/26/17 08:31 100 02/26/17 08:21 100 02/26/17 07:00 98.6 F 108 H 18 119/54 92 L Intake and Output 02/26/17 02/26/17 02/27/17 14:59 22:59 06:59 Intake Total 120 Output Total 350 Balance 120 -350 Intake: Oral 120 Output: Urine 350 Other: Voiding Method Indwelling Catheter Indwelling Catheter # Voids 1 # Bowel Movements 0 Weight 99.5 kg Patient Weight 02/27/17 06:59 Weight 99.5 kg Gen: This is a 61-year-old morbidly obese female. She is in bed and appears to be comfortable. HEENT: Head is atraumatic, normocephalic. Pupils equal, round. Sclerae is anicteric. Conjunctiva pale. Mucous membranes of the mouth are very dry. NECK: Supple. No JVD. No lymphadenopathy. No thyromegaly. LUNGS: Diminished to the bilateral bases. No wheezing.. No intercostal retractions. HEART: Irregular rate and rhythm. No murmur. ABDOMEN: Morbidly obese. Soft. Bowel sounds are present. No masses. Tenderness to the bilateral lower quadrants. EXTREMITIES: Prior PICC line site is noted without erythema. The patient self removed the line. Left axilla had a negative pressure wound therapy system in place. This is removed. And please refer to the nursing photography and measurements for the left axillary ulceration. Much improved from the last evaluation.Again drainage. NEUROLOGICAL: Patient is arousable but not very conversational Results CBC & Chem 7: 02/25/17 16:27 02/25/17 16:27 Labs: Microbiology - Last 24 Hours (Table) 02/25/17 05:22 Urine Culture - Preliminary Urine,Voided Group D Enterococcus Laboratory Results WBC 7.2 k/uL (3.8-10.6) 02/25/17 16:27 RBC 3.08 m/uL (3.80-5.40) L 02/25/17 16:27 Hgb 9.4 gm/dL (11.4-16.0) L 02/25/17 16:27 Hct 30.0 % (34.0-46.0) L 02/25/17 16:27 MCV 97.4 fL (80.0-100.0) 02/25/17 16:27 MCH 30.6 pg (25.0-35.0) 02/25/17 16:27 MCHC 31.5 g/dL (31.0-37.0) 02/25/17 16:27 RDW 15.1 % (11.5-15.5) 02/25/17 16:27 Plt Count 319 k/uL (150-450) 02/25/17 16:27 Neutrophils % 63 % 02/25/17 16:27 Lymphocytes % 25 % 02/25/17 16:27 Monocytes % 6 % 02/25/17 16:27 Eosinophils % 4 % 02/25/17 16:27 Basophils % 1 % 02/25/17 16:27 Neutrophils # 4.5 k/uL (1.3-7.7) 02/25/17 16:27 Lymphocytes # 1.8 k/uL (1.0-4.8) 02/25/17 16:27 Monocytes # 0.4 k/uL (0-1.0) 02/25/17 16:27 Eosinophils # 0.3 k/uL (0-0.7) 02/25/17 16:27 Basophils # 0.0 k/uL (0-0.2) 02/25/17 16:27 Sodium 139 mmol/L (137-145) 02/25/17 16:27 Potassium 3.8 mmol/L (3.5-5.1) 02/25/17 16:27 Chloride 106 mmol/L (98-107) 02/25/17 16:27 Carbon Dioxide 27 mmol/L (22-30) 02/25/17 16:27 Anion Gap 6 mmol/L 02/25/17 16:27 BUN 14 mg/dL (7-17) 02/25/17 16:27 Creatinine 0.80 mg/dL (0.52-1.04) 02/25/17 16:27 Est GFR (MDRD) Af Amer >60 (>60 ml/min/1.73 sqM) 02/25/17 16:27 Est GFR (MDRD) Non-Af >60 (>60 ml/min/1.73 sqM) 02/25/17 16:27 Glucose 98 mg/dL (74-99) 02/25/17 16:27 Calcium 9.0 mg/dL (8.4-10.2) 02/25/17 16:27 Total Bilirubin 0.2 mg/dL (0.2-1.3) 02/25/17 16:27 AST 54 U/L (14-36) H 02/25/17 16:27 ALT 47 U/L (9-52) 02/25/17 16:27 Alkaline Phosphatase 120 U/L (38-126) 02/25/17 16:27 Total Creatine Kinase 29 U/L (30-135) L 02/25/17 22:15 CK-MB (CK-2) 0.4 ng/mL (0.0-2.4) 02/25/17 22:15 CK-MB (CK-2) Rel Index 1.4 02/25/17 22:15 Troponin I <0.012 ng/mL (0.000-0.034) 02/26/17 09:06 Total Protein 5.7 g/dL (6.3-8.2) L 02/25/17 16: Albumin 2.6 g/dL (3.5-5.0) L 02/25/17 16:27 TSH 3.590 mIU/L (0.465-4.680) 02/25/17 16:27 Urine Color Yellow 02/24/17 19:45 Urine Appearance Cloudy (Clear) H 02/24/17 19:45 Urine pH 6.5 (5.0-8.0) 02/24/17 19:45 Ur Specific [place] 1.014 (1.001-1.035) 02/24/17 19:45 Urine Protein 2+ (Negative) H 02/24/17 19:45 Urine Glucose (UA) Negative (Negative) 02/24/17 19:45 Urine Ketones Negative (Negative) 02/24/17 19:45 Urine Blood Large (Negative) H 02/24/17 19:45 Urine Nitrite Positive (Negative) H 02/24/17 19:45 Urine Bilirubin Negative (Negative) 02/24/17 19:45 Urine Urobilinogen <2.0 mg/dL (<2.0) 02/24/17 19:45 Ur Leukocyte Esterase Large (Negative) H 02/24/17 19:45 Urine RBC >182 /hpf (0-5) H 02/24/17 19:45 Urine WBC 117 /hpf (0-5) H 02/24/17 19:45 Urine WBC Clumps Few /hpf (None) H 02/24/17 19:45 Urine Bacteria Rare /hpf (None) H 02/24/17 19:45 Urine Mucus Rare /hpf (None) H 02/24/17 19:45 Urine Yeast (Budding) Rare /hpf (None) H 02/24/17 19:45 Microbiology 02/25/17 05:22 Urine,Voided Urine Culture - Preliminary Group D Enterococcus Assessment and Plan (1) Abscess of axilla, left Narrative/Plan: 61-year-old female well-known to the infectious disease service presents to Hospital for further evaluation of the significant ulceration to her left axillary area. It however. The patient was brought to hospital because of worsening psychiatric issues. She is noted to be in need of placement in a radical psychiatric facility. There is great concerns because the negative pressure therapy system and its presence inhibiting her ability to be cared for other facilities. The ulceration is reviewed. At one point in time was more than 7 cm in depth. Now it is approximately 1 cm in depth. This is a marked improvement. We can discontinue the negative pressure therapy system using Aquacel silver rope to back and in the area utilize gauze to secure it. This can be changed Wednesday and Fridays. Nurses are instructed. There is evidence of urinary tract infection enterococcus is likely present. The Bactrim will be ineffective and Macrobid as requested. When she is medically cleared she may then go to the psychiatric facility on local wound care as noted with the Aquacel silver rope and 7 days of Macrobid for her urinary tract infection. Status: Acute (2) UTI (urinary tract infection) Status: Acute
[2017-02-27] MEDS: NITROFURANTOIN MONOHYD/M-CRYST 100 MG CAP PO SCH ×3 (01:07→20:08)
[2017-02-27] MEDS: METOPROLOL TARTRATE 25 MG TAB PO SCH ×4 (01:08→23:45)
--- NOTE | 2017-02-27 01:21 | P.CN ---
Psychiatric Consult - . Consult date: 02/26/17 Consult:: Vital Signs Temp 97.7 F 02/26/17 23:00 Pulse 77 02/27/17 01:08 Resp 16 02/26/17 23:05 BP 96/45 02/27/17 01:08 Pulse Ox 94 L 02/26/17 23:05 Intake & Output 02/26/17 02/26/17 02/27/17 06:59 18:59 06:59 Intake Total 300 120 Output Total 1400 350 Balance -1100 120 -350 Weight 99.5 kg 99.5 kg Intake: Oral 300 120 Output: Urine 1400 350 Other: Voiding Method Indwelling Catheter Indwelling Catheter Indwelling Catheter # Voids 1 1 # Bowel Movements 0 Laboratory Last Values WBC 7.2 k/uL (3.8-10.6) 02/25/17 16:27 RBC 3.08 m/uL (3.80-5.40) L 02/25/17 16:27 Hgb 9.4 gm/dL (11.4-16.0) L 02/25/17 16:27 Hct 30.0 % (34.0-46.0) L 02/25/17 16:27 MCV 97.4 fL (80.0-100.0) 02/25/17 16:27 MCH 30.6 pg (25.0-35.0) 02/25/17 16:27 MCHC 31.5 g/dL (31.0-37.0) 02/25/17 16:27 RDW 15.1 % (11.5-15.5) 02/25/17 16:27 Plt Count 319 k/uL (150-450) 02/25/17 16:27 Neutrophils % 63 % 02/25/17 16:27 Lymphocytes % 25 % 02/25/17 16:27 Monocytes % 6 % 02/25/17 16:27 Eosinophils % 4 % 02/25/17 16:27 Basophils % 1 % 02/25/17 16:27 Neutrophils # 4.5 k/uL (1.3-7.7) 02/25/17 16:27 Lymphocytes # 1.8 k/uL (1.0-4.8) 02/25/17 16:27 Monocytes # 0.4 k/uL (0-1.0) 02/25/17 16:27 Eosinophils # 0.3 k/uL (0-0.7) 02/25/17 16:27 Basophils # 0.0 k/uL (0-0.2) 02/25/17 16:27 Sodium 139 mmol/L (137-145) 02/25/17 16:27 Potassium 3.8 mmol/L (3.5-5.1) 02/25/17 16:27 Chloride 106 mmol/L (98-107) 02/25/17 16:27 Carbon Dioxide 27 mmol/L (22-30) 02/25/17 16:27 Anion Gap 6 mmol/L 02/25/17 16:27 BUN 14 mg/dL (7-17) 02/25/17 16:27 Creatinine 0.80 mg/dL (0.52-1.04) 02/25/17 16:27 Est GFR (MDRD) Af Amer >60 (>60 ml/min/1.73 sqM) 02/25/17 16:27 Est GFR (MDRD) Non-Af >60 (>60 ml/min/1.73 sqM) 02/25/17 16:27 Glucose 98 mg/dL (74-99) 02/25/17 16:27 Calcium 9.0 mg/dL (8.4-10.2) 02/25/17 16:27 Total Bilirubin 0.2 mg/dL (0.2-1.3) 02/25/17 16:27 AST 54 U/L (14-36) H 02/25/17 16:27 ALT 47 U/L (9-52) 02/25/17 16:27 Alkaline Phosphatase 120 U/L (38-126) 02/25/17 16:27 Total Creatine Kinase 29 U/L (30-135) L 02/25/17 22:15 CK-MB (CK-2) 0.4 ng/mL (0.0-2.4) 02/25/17 22:15 CK-MB (CK-2) Rel Index 1.4 02/25/17 22:15 Troponin I <0.012 ng/mL (0.000-0.034) 02/26/17 09:06 Total Protein 5.7 g/dL (6.3-8.2) L 02/25/17 16:27 Albumin 2.6 g/dL (3.5-5.0) L 02/25/17 16:27 TSH 3.590 mIU/L (0.465-4.680) 02/25/17 16:27 Urine Color Yellow 02/24/17 19:45 Urine Appearance Cloudy (Clear) H 02/24/17 19:45 Urine pH 6.5 (5.0-8.0) 02/24/17 19:45 Ur Specific [place] 1.014 (1.001-1.035) 02/24/17 19:45 Urine Protein 2+ (Negative) H 02/24/17 19:45 Urine Glucose (UA) Negative (Negative) 02/24/17 19:45 Urine Ketones Negative (Negative) 02/24/17 19:45 Urine Blood Large (Negative) H 02/24/17 19:45 Urine Nitrite Positive (Negative) H 02/24/17 19:45 Urine Bilirubin Negative (Negative) 02/24/17 19:45 Urine Urobilinogen <2.0 mg/dL (<2.0) 02/24/17 19:45 Ur Leukocyte Esterase Large (Negative) H 02/24/17 19:45 Urine RBC >182 /hpf (0-5) H 02/24/17 19:45 Urine WBC 117 /hpf (0-5) H 02/24/17 19:45 Urine WBC Clumps Few /hpf (None) H 02/24/17 19:45 Urine Bacteria Rare /hpf (None) H 02/24/17 19:45 Urine Mucus Rare /hpf (None) H 02/24/17 19:45 Urine Yeast (Budding) Rare /hpf (None) H 02/24/17 19:45 HPI: Patient is a 61 year old female who presented the ER from an extended care facility chief complaint of suicidal ideation with plan and depression. Patient has a history of schizoaffective disorder, bipolar type. She reports that is currently at an extended care facility due to debility from an infection in her left axilla. Patient does not feel like she is making progress , and this has lead to a increased depression. She has a history of multiple psychiatric hospitalizations, suicide attempts, and comorbid medical problems. Her last psychiatric hospitalization was over 10 years ago. Recently at [facility], she states that had been having suicidal thoughts and was asked at by staff if she had any thoughts of wanting to harm herself and patient endorsed hanging by strangling herself with an oxygen cord. Today, patient is laying in bed. Her tremors that she described as tardive dyskinesia in the ER are much suppressed by baclofen started in the ED. This make them unlikely to be TD, but nonetheless patient is very grateful. At this time, patient's wound vac has been removed, she is now on the medical floor and much more comfortable. She reports that she has had time to consider her situation and she truly does not want to . She identifies her and family as reasons to live. will visit patient tomorrow. At this time, she denies SI/HI/AVH. PSYCHIATRIC HISTORY: History of schizoaffective disorder, bipolar type (patient is able to clearly describe past manic episodes) multiple hospitalizations, multiple suicide attempts, first attempt was most severe when patient OD'd at the age of 17 and ended up on dialysis for 6-months. PMH: Past Medical History: Asthma, Coronary Artery Disease (CAD), Cancer, Chest Pain / Angina, CVA/TIA, Eye Disorder, GERD/Reflux, Hyperlipidemia, Hypertension Additional Past Medical History / Comment(s): Bronchial asthma, obesity, chronic lower extremity edema, L axillae cellulitis/abscess-cultures grew peptostreptococcus and MSSA-had I&D . Other hx: shingles/staph, R eye macular degeneration, TIA, hiatal hernia, uterine cancer with hysterectomy, tardive dyskinesia, peripheral neuropathy cause unknown, migraines, sinus problems has coronary artery disease with 50% lesion of the LAD, paroxysmal atrial fibrillation, hypertension, acid reflux, schizophrenic disorder, anxiety, peripheral neuropathy, wound vac, PICC line (removed), retention w/ chronic Bell. History of Any Multi-Drug Resistant Organisms: None Reported Past Surgical History: Adenoidectomy, Back Surgery, Cholecystectomy, Ear Surgery , Heart Catheterization, Hysterectomy, Tonsillectomy Additional Past Surgical History / Comment(s): I & D L axillae, L eye surgery for lazy eye, bilateral cataract removal, bilateral myringotomy/tubes, colonoscopy, cardiac cath on 07/24/2016 with moderate stenosis of LAD noted - no stenting at that time recommend medical management and return for angioplasty if sx persist Past Anesthesia/Blood Transfusion Reactions: No Reported Reaction Past Psychological History: Anxiety, Depression, Schizoaffective Disorder Additional Psychological History / Comment(s): Is normally a resident of a [place] [facility]. Smoking Status: Never smoker Past Alcohol Use History: None Reported Additional Past Alcohol Use History / Comment(s): Pt states she used to drink occasionally but has not had any alcohol since 2006. Denies alcoholism. Past Drug Use History: None Reported STRENGTHS/WEAKNESSES: fair insight into medical and mental illness/ chronic medical illnesses INTELLECTUAL FUNCTIONING: average MENTAL STATUS EXAM: Appearance: alert, dressed in hospital garb, appears stated age, unable to ambulate Behavior: psychomotor agitation++, LE tremors, fair eye contact Attitude: cooperative Speech: normal rate, rhythm, fluency, articulation; volume; and prosody; primary language: [place]kin[place] Mood: anxious Affect: congruent, restricted Thought processes: linear Thought content: patient does not appear to be responding to internal stimuli; patient denies auditory and visual hallucinations, no delusions appreciated Insight: fair Judgment: fair Assessment and Plan (1) Schizoaffective disorder, bipolar type Narrative/Plan: * continue Seroquel 600-mg PO QHS * continue Celexa 20-mg PO QAM Status: Acute Plan: * patient will be admitted to inpatient psychiatry once medically stable on voluntary status * discontinue suicide precautions, patient is no longer acutely suicidal and is has thus far been compliant and cooperative with treatment * Psychiatry will follow Time with Patient: Greater than 30
[2017-02-27] MEDS: SODIUM CHLORIDE 0.9% 1,000 ML IV SCH ×4 (01:47→23:46)
[2017-02-27] MEDS: TOBRAMYCIN 0.3% OPHTH DROPS 5 ML BTL BOTH EYES SCH ×6 (04:33→23:45)
[2017-02-27] MEDS: BACLOFEN 10 MG TAB PO SCH ×4 (07:39→21:21)
[2017-02-27] MEDS: DIGOXIN 125 MCG TAB PO SCH (07:47)
[2017-02-27] MEDS: OXYBUTYNIN XL 5 MG TAB.ER.24 PO SCH ×2 (07:47→20:09)
[2017-02-27] MEDS: PANTOPRAZOLE 40 MG TABLET PO SCH ×2 (07:48→17:10)
[2017-02-27] MEDS: GABAPENTIN 300 MG CAP PO SCH ×2 (07:48→17:09)
[2017-02-27] MEDS: ISOSORBIDE MONONITRATE ER 60 MG TAB.ER.24H PO SCH (07:49)
[2017-02-27] MEDS: CITALOPRAM HYDROBROMIDE 20 MG TAB PO SCH (07:49)
[2017-02-27] MEDS: APIXABAN 5 MG TAB PO SCH ×2 (07:50→20:09)
[2017-02-27] MEDS: VIT A,C & E-LUTEIN-MINERALS 1 EACH TAB PO SCH (08:13)
[2017-02-27] MEDS: BUDESONIDE 0.5 MG/2 ML NEBU INHALATION SCH ×2 (08:47→19:56)
--- NOTE | 2017-02-27 16:04 | P.PN ---
Progress Note - Text Progress Note Date: 02/27/17 DATE OF SERVICE: 02/27/2017 PRESENTING COMPLAINT: suicidal ideation HISTORY OF PRESENT ILLNESS: 61-year-old patient resident Sabino JJ. Has a history of an axilla wound chronic wound VAC in place. Because of her complicated course and slow recovery time, patient has become depressed regarding her slow process. Verbalized to one of the nursing aides that she wanted to put the oxygen tubing around her neck and strangulated herself admitted for the same. INTERVAL HISTORY: 02/27/2017: No acute overnight events,sitting up in a chair, patient continues to feel somewhat depressed although improving,patient seen by psychiatryand not feeling acutely suicidal bedside sitter has been discontinued. Infectious disease seen the patient and recommends stopping the wound VAC. We'll continue with local dressing changes to the axilla.patient is tolerating her diet able to get up with assistance. REVIEW OF SYSTEMS: Done for constitutional ,cardiovascular, GI, pulmonary, integument with relevant findings as above. CURRENT MEDICATIONS Tylenol No. 3, Eliquis, Lipitor, baclofen 10 mg by mouth 4 times a day, Lotrisone,Pulmicort, Feosol, gabapentin, Imdur, lactulose 10 g by mouth twice a day, Lopressor 25 mg by mouth every 8 hours, Macrobid 100 mg by mouth twice a day, Ditropan XL 5 mg by mouth twice a day, Protonix 40 mg by mouth before meals twice a day, Seroquel 600 mg by mouth at bedtime. PHYSICAL EXAM VITAL SIGNS: temperature 96.7, pulse 74, respiratory rate 17, blood pressure 116/64, oxygen saturation 93% on 2 L. GENERAL APPEARANCE: sitting up in a chair at the bedside appears a bit low. EYES: Pupils equal. Conjunctiva normal. NECK: JVD not raised. Mass not palpable. RESPIRATORY: Respiratory effort normal. Lungs diminished bilaterally to auscultation. CARDIOVASCULAR: First and second sounds normal. mild edema. ABDOMEN: Soft. Liver and spleen not palpable. No tenderness. No mass palpable. PSYCHIATRY: Alert and oriented x3. Mood and affect lowl. 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 -Gastroesophageal reflux disease. -Essential hypertension. -Hyperlipidemia. -Schizoaffective disorder, chronic. -Anxiety disorder. -Peripheral neuropathy, idiopathic. -Hiatal hernia. -Medical debility. PLAN: Macrobid added for urinary tract infection,wound VAC removed and local dressing changes to the left axilla on Wednesdays and Fridays with Aquasol rope and gauze to secure in place, psychiatry will continue to follow the patient until she is admitted to inpatient psychiatric unit.plan of care discussed with the patient the bedside she is in agreement we will follow closely. BABY STROLLER RENTAL CLERK statement: Patient was seen and examined by nurse practitioner Carlotta Ibarra and all elements of the case discussed with attending Dr. Elizabeth
[2017-02-27] MEDS: FERROUS SULFATE 325 MG TAB PO SCH (17:09)
[2017-02-27] MEDS: ATORVASTATIN 10 MG TAB PO SCH (20:08)
[2017-02-27] MEDS: QUEtiapine 200 MG TAB PO SCH (20:08)
[2017-02-27] MEDS: CHOLECALCIFEROL 1,000 UNIT TAB PO SCH (20:09)
--- NOTE | 2017-02-27 21:52 | PN ---
PROGRESS NOTE DATE OF SERVICE: 02/27/2017. ATTENDING NOTE: This patient was seen and examined by me. I discussed with my nurse practitioner, Ms. Ibarra. This patient admitted with suicidal ideation. Doing better today, eating better. Seen by Dr. Elmore from infectious disease, who has discontinued the wound VAC. The patient also has a UTI for which antibiotics have been changed to Macrobid. Sitting up in a chair. EXAMINATION: Afebrile, blood pressure 116/64. LUNGS: Clear. CARDIOVASCULAR: 1st and 2nd sounds normal. Awake, sitting up, more comfortable. INVESTIGATIONS: White count 7, hemoglobin 9.4. Urine cultures growing Enterococcus gallinarum and yeast species. ASSESSMENT: Acute urinary tract infection with culture positive for the stent Enterococcus gallinarum. PLAN: Macrobid has been added. Wound care per Dr. Elmore. Follow. Because patient may be requiring a medical bed, the patient this time has not been sent down to the psych unit. MMODL / IJN: [id number] /
[2017-02-28] MEDS: TOBRAMYCIN 0.3% OPHTH DROPS 5 ML BTL BOTH EYES SCH ×5 (04:39→21:40)
[2017-02-28] MEDS: CYANOCOBALAMIN 500 MCG TAB PO SCH (08:03)
[2017-02-28] MEDS: GABAPENTIN 300 MG CAP PO SCH ×2 (08:03→17:06)
[2017-02-28] MEDS: OXYBUTYNIN XL 5 MG TAB.ER.24 PO SCH ×2 (08:03→21:41)
[2017-02-28] MEDS: APIXABAN 5 MG TAB PO SCH ×2 (08:03→21:41)
[2017-02-28] MEDS: PANTOPRAZOLE 40 MG TABLET PO SCH ×2 (08:03→17:07)
[2017-02-28] MEDS: CITALOPRAM HYDROBROMIDE 20 MG TAB PO SCH (08:03)
[2017-02-28] MEDS: METOPROLOL TARTRATE 25 MG TAB PO SCH ×3 (08:04→21:41)
[2017-02-28] MEDS: BACLOFEN 10 MG TAB PO SCH ×4 (08:04→21:41)
[2017-02-28] MEDS: VIT A,C & E-LUTEIN-MINERALS 1 EACH TAB PO SCH (08:04)
[2017-02-28] MEDS: NITROFURANTOIN MONOHYD/M-CRYST 100 MG CAP PO SCH ×2 (08:04→21:41)
[2017-02-28] MEDS: ISOSORBIDE MONONITRATE ER 60 MG TAB.ER.24H PO SCH (08:04)
[2017-02-28] MEDS: DIGOXIN 125 MCG TAB PO SCH (08:04)
[2017-02-28] MEDS: BUDESONIDE 0.5 MG/2 ML NEBU INHALATION SCH ×2 (08:44→19:54)
[2017-02-28] MEDS: ALBUTEROL NEBULIZED 2.5 MG/3 ML INHALATION PRN (08:44)
--- NOTE | 2017-02-28 09:22 | P.PN ---
Subjective Progress Note Date: 02/27/17 Principal diagnosis: abscess left axilla 61-year-old female known to the infectious disease service from her recent hospitalizations is brought back to hospital. Having ongoing difficulties with her psychiatric illness. She does have difficulties medically with a significant abscess and ulcer to the left axillary area. This was incised and drained several weeks ago. Negative pressure therapy is been utilized. She's been following the wound healing center with Dr. sade vides. Is also been evaluated by the ID service there. Because of her needs to be transferred to an inpatient psychiatric facility further any nausea was requested regarding her wound care. The patient herself is quite desponded. She is arousable but a poor historian at this time. Further information does come from the chart. The patient is feeling somewhat better today. Wound VAC was removed yesterday. And with this she is having much less pain. Her affect was much brighter and more interactive with this observer them with the nursing staff. The staff comments on patient's lack of interaction and were very surprised that she opened her eyes and communicated with me. Objective - Vital Signs Vital signs: Vital Signs Temperature is 98.1 Blood pressure is 112/52 Heart rate is 73 respiratory rate is 16 - Exam Gen: This is a 61-year-old morbidly obese female. She is in bed and appears to be comfortable. HEENT: Head is atraumatic, normocephalic. Pupils equal, round. Sclerae is anicteric. Conjunctiva pale. Mucous membranes of the mouth are very dry. NECK: Supple. No JVD. No lymphadenopathy. No thyromegaly. LUNGS: Diminished to the bilateral bases. No wheezing.. No intercostal retractions. HEART: Irregular rate and rhythm. No murmur. ABDOMEN: Morbidly obese. Soft. Bowel sounds are present. No masses. Tenderness to the bilateral lower quadrants. EXTREMITIES: Prior PICC line site is noted without erythema. The patient self removed the line. Left axilla had a negative pressure wound therapy system in place. This is removed. And please refer to the nursing photography and measurements for the left axillary ulceration. Much improved from the last evaluation.Again drainage. NEUROLOGICAL: Patient is arousable is more interactive in conversation today. She is very pleased that the wound VAC has been removed because she is having so much less pain. - Labs CBC & Chem 7: 02/25/17 16:27 02/25/17 16:27 Labs: Microbiology - Last 24 Hours (Table) 02/25/17 05:22 Urine Culture - Preliminary Urine,Voided Enterococcus gallinarum Yeast species Laboratory Results WBC 7.2 k/uL (3.8-10.6) 02/25/17 16:27 RBC 3.08 m/uL (3.80-5.40) L 02/25/17 16:27 Hgb 9.4 gm/dL (11.4-16.0) L 02/25/17 16:27 Hct 30.0 % (34.0-46.0) L 02/25/17 16:27 MCV 97.4 fL (80.0-100.0) 02/25/17 16:27 MCH 30.6 pg (25.0-35.0) 02/25/17 16:27 MCHC 31.5 g/dL (31.0-37.0) 02/25/17 16:27 RDW 15.1 % (11.5-15.5) 02/25/17 16:27 Plt Count 319 k/uL (150-450) 02/25/17 16:27 Neutrophils % 63 % 02/25/17 16:27 Lymphocytes % 25 % 02/25/17 16:27 Monocytes % 6 % 02/25/17 16:27 Eosinophils % 4 % 02/25/17 16:27 Basophils % 1 % 02/25/17 16:27 Neutrophils # 4.5 k/uL (1.3-7.7) 02/25/17 16:27 Lymphocytes # 1.8 k/uL (1.0-4.8) 02/25/17 16:27 Monocytes # 0.4 k/uL (0-1.0) 02/25/17 16:27 Eosinophils # 0.3 k/uL (0-0.7) 02/25/17 16:27 Basophils # 0.0 k/uL (0-0.2) 02/25/17 16:27 Sodium 139 mmol/L (137-145) 02/25/17 16:27 Potassium 3.8 mmol/L (3.5-5.1) 02/25/17 16:27 Chloride 106 mmol/L (98-107) 02/25/17 16:27 Carbon Dioxide 27 mmol/L (22-30) 02/25/17 16:27 Anion Gap 6 mmol/L 02/25/17 16:27 BUN 14 mg/dL (7-17) 02/25/17 16:27 Creatinine 0.80 mg/dL (0.52-1.04) 02/25/17 16:27 Est GFR (MDRD) Af Amer >60 (>60 ml/min/1.73 sqM) 02/25/17 16:27 Est GFR (MDRD) Non-Af >60 (>60 ml/min/1.73 sqM) 02/25/17 16:27 Glucose 98 mg/dL (74-99) 02/25/17 16:27 Calcium 9.0 mg/dL (8.4-10.2) 02/25/17 16:27 Total Bilirubin 0.2 mg/dL (0.2-1.3) 02/25/17 16:27 AST 54 U/L (14-36) H 02/25/17 16:27 ALT 47 U/L (9-52) 02/25/17 16:27 Alkaline Phosphatase 120 U/L (38-126) 02/25/17 16:27 Total Creatine Kinase 29 U/L (30-135) L 02/25/17 22:15 CK-MB (CK-2) 0.4 ng/mL (0.0-2.4) 02/25/17 22:15 CK-MB (CK-2) Rel Index 1.4 02/25/17 22:15 Troponin I <0.012 ng/mL (0.000-0.034) 02/26/17 09:06 Total Protein 5.7 g/dL (6.3-8.2) L 02/25/17 16:27 Albumin 2.6 g/dL (3.5-5.0) L 02/25/17 16:27 TSH 3.590 mIU/L (0.465-4.680) 02/25/17 16:27 Urine Color Yellow 02/24/17 19:45 Urine Appearance Cloudy (Clear) H 02/24/17 19:45 Urine pH 6.5 (5.0-8.0) 02/24/17 19:45 Ur Specific [place] 1.014 (1.001-1.035) 02/24/17 19:45 Urine Protein 2+ (Negative) H 02/24/17 19:45 Urine Glucose (UA) Negative (Negative) 02/24/17 19:45 Urine Ketones Negative (Negative) 02/24/17 19:45 Urine Blood Large (Negative) H 02/24/17 19:45 Urine Nitrite Positive (Negative) H 02/24/17 19:45 Urine Bilirubin Negative (Negative) 02/24/17 19:45 Urine Urobilinogen <2.0 mg/dL (<2.0) 02/24/17 19:45 Ur Leukocyte Esterase Large (Negative) H 02/24/17 19:45 Urine RBC >182 /hpf (0-5) H 02/24/17 19:45 Urine WBC 117 /hpf (0-5) H 02/24/17 19:45 Urine WBC Clumps Few /hpf (None) H 02/24/17 19:45 Urine Bacteria Rare /hpf (None) H 02/24/17 19:45 Urine Mucus Rare /hpf (None) H 02/24/17 19:45 Urine Yeast (Budding) Rare /hpf (None) H 02/24/17 19:45 Microbiology 02/25/17 05:22 Urine,Voided Urine Culture - Preliminary Enterococcus gallinarum Yeast species Assessment and Plan (1) Abscess of axilla, left Narrative/Plan: 61-year-old female well-known to the infectious disease service presents to Hospital for further evaluation of the significant ulceration to her left axillary area. It however. The patient was brought to hospital because of worsening psychiatric issues. She is noted to be in need of placement in a radical psychiatric facility. There is great concerns because the negative pressure therapy system and its presence inhibiting her ability to be cared for other facilities. The ulceration is reviewed. At one point in time was more than 7 cm in depth. Now it is approximately 1 cm in depth. This is a marked improvement. We can discontinue the negative pressure therapy system using Aquacel silver rope to back and in the area utilize gauze to secure it. This can be changed Wednesday and Fridays. Nurses are instructed. There is evidence of urinary tract infection enterococcus is likely present. The Bactrim will be ineffective and Macrobid as requested. When she is medically cleared she may then go to the psychiatric facility on local wound care as noted with the Aquacel silver rope and 7 days of Macrobid for her urinary tract infection. Status: Acute (2) UTI (urinary tract infection) Status: Acute
[2017-02-28] MEDS: ACETAMINOPHEN TAB 325 MG TAB PO PRN ×2 (13:56→18:57)
--- NOTE | 2017-02-28 14:55 | P.PN ---
Progress Note - Text Progress Note Date: 02/28/17 DATE OF SERVICE: 02/28/2017 PRESENTING COMPLAINT: suicidal ideation HISTORY OF PRESENT ILLNESS: 61-year-old patient resident Sabino JJ. Has a history of an axilla wound chronic wound VAC in place. Because of her complicated course and slow recovery time, patient has become depressed regarding her slow process. Verbalized to one of the nursing aides that she wanted to put the oxygen tubing around her neck and strangulated herself admitted for the same. INTERVAL HISTORY: 02/28/2017: No acute overnight events, lying in bed, patient's mood does not characterize what she is feeling. Outwardly seems bright and perky, when asked about how she feels continues to feel sad and depressed. Not feeling acutely suicidal. Wound VAC removed by ID. Continue local dressing changes to axilla. Tolerating her diet up with assistance.agreeable to work with physical therapy. 02/27/2017: No acute overnight events,sitting up in a chair, patient continues to feel somewhat depressed although improving,patient seen by psychiatryand not feeling acutely suicidal bedside sitter has been discontinued. Infectious disease seen the patient and recommends stopping the wound VAC. We'll continue with local dressing changes to the axilla.patient is tolerating her diet able to get up with assistance. REVIEW OF SYSTEMS: Done for constitutional ,cardiovascular, GI, pulmonary, integument with relevant findings as above. CURRENT MEDICATIONS Tylenol No. 3, Eliquis, Lipitor, baclofen 10 mg by mouth 4 times a day, Lotrisone,Pulmicort, Feosol, gabapentin, Imdur, lactulose 10 g by mouth twice a day, Lopressor 25 mg by mouth every 8 hours, Macrobid 100 mg by mouth twice a day, Ditropan XL 5 mg by mouth twice a day, Protonix 40 mg by mouth before meals twice a day, Seroquel 600 mg by mouth at bedtime. PHYSICAL EXAM VITAL SIGNS: temperature 97.3, pulse 78, respiratory rate 18, blood pressure 115/67, oxygen saturation 94% on 2 L. GENERAL APPEARANCE: sitting up in The bed appears more perky, didn't know my name but recognized me. EYES: Pupils equal. Conjunctiva normal. NECK: JVD not raised. Mass not palpable. RESPIRATORY: Respiratory effort normal. Lungs diminished bilaterally to auscultation. CARDIOVASCULAR: First and second sounds normal. mild edema. ABDOMEN: Soft. Liver and spleen not palpable. No tenderness. No mass palpable. PSYCHIATRY: Alert and oriented x3. Mood and affect lowl. INTEGUMENT: Left axilla dressing in place wound VAC removed no drainage noted INVESTIGATIONS: none new ASSESSMENT: -schizoaffective disorder, bipolar type with suicidal ideation, present on admission. 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 -Gastroesophageal reflux disease. -Essential hypertension. -Hyperlipidemia. -Anxiety not otherwise specified -Peripheral neuropathy, idiopathic. -Hiatal hernia. -Medical debility. PLAN: continue Seroquel and Celexa per psychiatry to the plan to admit to inpatient psychiatry once medically stable.local dressing changes per infectious disease, work with physical therapy for gait training and strengthening. We'll continue to follow closely, plan of care discussed with the patient at the bedside she is in agreement. CONTINUOUS IMPROVEMENT COACH statement: Patient was seen and examined by nurse practitioner Carlotta Ibarra and all elements of the case discussed with attending Dr. Elizabeth
[2017-02-28] MEDS: FERROUS SULFATE 325 MG TAB PO SCH (17:06)
[2017-02-28] MEDS: ATORVASTATIN 10 MG TAB PO SCH (21:41)
[2017-02-28] MEDS: CHOLECALCIFEROL 1,000 UNIT TAB PO SCH (21:41)
[2017-02-28] MEDS: QUEtiapine 200 MG TAB PO SCH (21:41)
[2017-03-01] MEDS: TOBRAMYCIN 0.3% OPHTH DROPS 5 ML BTL BOTH EYES SCH ×7 (01:03→23:51)
--- NOTE | 2017-03-01 06:09 | PN ---
PROGRESS NOTE DATE OF SERVICE: 02/28/2017 ATTENDING NOTE: Patient was seen and examined by me. I discussed with nurse practitioner, Fred. Patient doing much better. Sitting up. is at bedside, playing cards. Actually far more cheerful. Wound VAC has been off. PHYSICAL EXAMINATION: On examination, afebrile. Blood pressure 105/67. LUNGS: Fair air entry. CARDIOVASCULAR: First and second sounds normal. White count 7.2. Potassium 3.8, ASSESSMENT: 1. Schizoaffective disorder, bipolar type with suicidal ideation, present on admission, now much improved. 2. Acute urinary tract infection, positive for Enterococcus gallinarum. PLAN: Overall, patient is doing better. Looking patient to go to a psychiatry facility. mop worker involved. Care was discussed with the patient and at the bedside. MMODL / IJN: [id number] /
[2017-03-01] MEDS: BUDESONIDE 0.5 MG/2 ML NEBU INHALATION SCH ×2 (07:32→20:26)
[2017-03-01] MEDS: METOPROLOL TARTRATE 25 MG TAB PO SCH ×3 (08:24→22:02)
[2017-03-01] MEDS: CITALOPRAM HYDROBROMIDE 20 MG TAB PO SCH (08:24)
[2017-03-01] MEDS: PANTOPRAZOLE 40 MG TABLET PO SCH ×2 (08:24→17:50)
[2017-03-01] MEDS: DIGOXIN 125 MCG TAB PO SCH (08:24)
[2017-03-01] MEDS: GABAPENTIN 300 MG CAP PO SCH ×2 (08:24→17:50)
[2017-03-01] MEDS: NITROFURANTOIN MONOHYD/M-CRYST 100 MG CAP PO SCH ×2 (08:25→21:27)
[2017-03-01] MEDS: ISOSORBIDE MONONITRATE ER 60 MG TAB.ER.24H PO SCH (08:25)
[2017-03-01] MEDS: OXYBUTYNIN XL 5 MG TAB.ER.24 PO SCH ×2 (08:25→21:28)
[2017-03-01] MEDS: BACLOFEN 10 MG TAB PO SCH ×4 (08:25→21:28)
[2017-03-01] MEDS: APIXABAN 5 MG TAB PO SCH ×2 (08:25→21:26)
[2017-03-01 09:55] LABS: Anion Gap 8 mmol/L; Blood Urea Nitrogen 7 mg/dL (7-17); Calcium 9.4 mg/dL (8.4-10.2); Carbon Dioxide 22 mmol/L (22-30); Chloride 112 mmol/L (98-107); Glucose 119 mg/dL (74-99); Non-African American GFR(MDRD) >60 (>60 ml/min/1.73 sqM); Potassium 4.5 mmol/L (3.5-5.1); Sodium 142 mmol/L (137-145)
[2017-03-01 10:03] LABS: Basophils % (A) 1 %; CH 30.9; CHCM 30.6; Eosinophils # (A) 0.2 k/uL (0-0.7); Eosinophils % (A) 6 %; HCT 33.9 % (34.0-46.0); HDW 2.38; HGB 10.2 gm/dL (11.4-16.0); Hypochromasia Slight; Luc # (Auto) 0.08; Luc % (Auto) 2; Lymphocytes # (A) 1.6 k/uL (1.0-4.8); Lymphocytes % (A) 42 %; MCH 30.5 pg (25.0-35.0); MCHC 30.1 g/dL (31.0-37.0); MCV 101.4 fL (80.0-100.0); Macrocytosis Slight; Mean Platelet Volume 7.2; Monocytes # (A) 0.2 k/uL (0-1.0); Monocytes % (A) 4 %; Neutrophils # (A) 1.7 k/uL (1.3-7.7); Neutrophils % (A) 45 %; RBC 3.34 m/uL (3.80-5.40); RDW 14.9 % (11.5-15.5); WBC 3.8 k/uL (3.8-10.6); WBC (Perox) 4.16
[2017-03-01] MEDS: VIT A,C & E-LUTEIN-MINERALS 1 EACH TAB PO SCH (10:20)
--- NOTE | 2017-03-01 12:51 | P.PN ---
Progress Note - Text Progress Note Date: 03/01/17 Vital Signs Temp 97.2 F L 03/01/17 07:00 Pulse 76 03/01/17 07:40 Resp 16 03/01/17 07:00 BP 108/62 03/01/17 07:00 Pulse Ox 96 03/01/17 07:00 Interval History: Patient interviewed sitting in her room in chair. Patient is more awake today than previous interview. She states that she has had time to reflect on her situation after her visited over the weekend and she wants to be able to walk again. Patient stated that she was able to walk on the parallel bars this weekend with PT which gave her hope for the first time in a long time. At this time, patient denies SI/HI/AVH. Mood is euthymic, affect is reactive, mobile, congruent. talked with patient on the phone briefly while during this interview and agrees that it would best for patient to discharge back to inpatient rehabilitation. Mental Status Exam: Appearance: alert, dressed in hospital garb, appears stated age, unable to ambulate Behavior: psychomotor agitation+, LE tremors, fair eye contact Attitude: cooperative Speech: normal rate, rhythm, fluency, articulation; volume; and prosody; primary language: Sami Mood: anxious Affect: congruent, restricted Thought processes: linear Thought content: patient does not appear to be responding to internal stimuli; patient denies auditory and visual hallucinations, no delusions appreciated, denies SI/HI Insight: fair Judgment: fair Plan: * continue Seroquel 600-mg PO QHS * continue Celexa 20-mg PO QAM * patient no longer meets criteria for inpatient admission to mental health; patient is no longer suicidal and has been compliant and cooperative with treatment * Psychiatry will follow
[2017-03-01] MEDS: Acetaminophen-Codeine 300-30mg TAB PO PRN (13:22)
--- NOTE | 2017-03-01 14:58 | P.DS ---
Providers Date of admission: 02/27/17 09:07 Expected date of discharge: 03/01/17 Attending physician: Marvin Elizabeth Consults: 02/25/17 18:33 Consult Physician Routine Consulting Provider: Rusyt Centeno Consult Reason/Comments: SI Do you want consulting provider notified?: Yes 02/26/17 12:06 Consult Physician Routine Consulting Provider: Matthew Elmore Consult Reason/Comments: wound vac, known to pt Do you want consulting provider notified?: Yes [facility]: FINAL DIAGNOSES: -schizoaffective disorder, bipolar type with suicidal ideation, present on admission. -Acute urinary tract infection,urine culture positive for enterococcus gallinarum -Chronic left axilla wound local dressing change per infectious disease -Coronary artery disease with nonobstructive 50% LAD lesion. -Gastroesophageal reflux disease. -Essential hypertension. -Hyperlipidemia. -Anxiety not otherwise specified -Peripheral neuropathy, idiopathic. -Hiatal hernia. -Medical debility. HOSPTIAL COURSE: 61-year-old patient resides at [facility], has a history of an left axilla wound chronic wound VAC in place due to her complicated course of recovery time patient became more depressed regarding her slow progress verbalized to one of the nurse aids that she wanted to put the oxygen tubing around her neck and strangulate herself, she was admitted for the same.home medications ordered, infectious disease and psychiatry were both consulted. Infectious disease evaluated the wound, came to the determination that wound healing has greatly improved, wound VAC is no longer necessary to promote healing and aqua cell silver rope secured with gauze will be sufficient to continue to promote wound healing. Patient was also found to have urinary tract infection for which current antibiotic therapy would not be sufficient, was switched to Macrobid for 7 days. Psychiatry evaluated the patient concluded patient doesn't fact have schizoaffective disorder, bipolar type recommended continuation of Seroquel was increased doses 600 mg at bedtime and Celexa 20 mg in the morning, additionally fell an inpatient psychiatry admission once patient is medically stable will be appropriate. Patient was no longer actively suicidal bedside sitter was discontinued, patient remained compliant throughout her stay and cooperative with treatment. follow-up exam from psychiatry has found patient is no longer appropriate for inpatient psychiatry admission,patient is no longer suicidal has been compliant and cooperative with all treatment. patient and wish for the patient to return to inpatient rehab. Bell catheter to remain in place upon discharge back to [facility]. Patient has a history of urinary retention, once at [facility] she will be evaluated for removal of said Bell. Overall patient is no longer suicidal, agreeable to work with physical therapy has a strong desire to improve her overall health, anxious to return to rehab to continue the work that she has started, tolerating her diet, transfers with assistance, moving her bowels. Overall condition stable and appropriate for discharge back to the rehabilitation Center. PHYSICAL EXAM: CARDIOVASCULAR: first and second sound noted, no edema RESPIRATORY: respiratory effort normal, lungs diminished bilaterally to auscultation. MUSCULOSKELETAL:some lower extremity weakness noted, fatigues quickly requires assistance with transfers. PSYCHIATRY: Alert and oriented 3 mood and affect, appropriate for the situation , appears to be happy to be returning to the rehabilitation Center. Patient was seen and examined by nurse practitioner Carlotta Ibarra in all elements of the case discussed with attending Dr. Elizabeth DISPOSITION:discharge to [facility] Patient Condition at Discharge: Stable Plan - Discharge Summary New Discharge Prescriptions: New Citalopram Hydrobromide [CeleXA] 20 mg PO DAILY tab Hydrocortisone Cream [Hydrocortisone 1% Cream] 1 applic TOPICAL BID PRN dose PRN Reason: Skin Irritation Isosorbide Mononitrate ER [Imdur] 60 mg PO DAILY tab Baclofen [Lioresal] 5 mg PO Q6H PRN #20 tablet PRN Reason: Spasms Nitrofurantoin Monohyd/M-Cryst [Macrobid] 100 mg PO Q12HR #8 cap traMADol HCL [Ultram] 50 mg PO Q6HR PRN #20 tab PRN Reason: Pain Continue Cyanocobalamin [Vitamin B-12] 1,000 mcg PO Q48H Cholecalciferol [Vitamin D3] 2,000 unit PO HS Gabapentin [Neurontin] 300 mg PO BID@0900,1700 Nitroglycerin Sl Tabs [Nitrostat] 0.4 mg SUBLINGUAL Q5M PRN PRN Reason: Chest Pain Calcium Carbonate [Tums] 500 mg PO TID PRN PRN Reason: Indigestion Budesonide [Pulmicort] 0.5 mg INHALATION RT-BID neb Ondansetron [Zofran] 4 mg PO Q8HR PRN PRN Reason: Nausea Calamine/Zinc Oxide Lotion [Calamine Lotion] 1 applic TOPICAL Q6H PRN PRN Reason: shoulder/chest rash Albuterol Nebulized [Ventolin Nebulized] 2.5 mg INHALATION RT-Q6H PRN PRN Reason: Shortness Of Breath Or Wheezing Vit C/E/Zn/Coppr/Lutein/Zeaxan [Preservision Areds 2 Softgel] 1 cap PO DAILY Atorvastatin [Lipitor] 10 mg PO HS Omeprazole 20 mg PO AC-BID Ferrous Sulfate [Iron (65 MG Elemental)] 325 mg PO DAILY@1700 Apixaban [Eliquis] 5 mg PO BID tab Digoxin [Lanoxin] 125 mcg PO DAILY tab Amino Acids/Protein Hydrolys [Pro-Stat Supplement] 30 ml PO BID Artificial Tears-Hypromellose [Artificial Tear Drops] 2 drops RIGHT EYE Q4H PRN PRN Reason: DRY EYES Tobramycin 0.3% Ophth Soln [Tobrex 0.3% Ophth Soln] 1 drop BOTH EYES Q4H Metoprolol Tartrate [Lopressor] 25 mg PO Q8H Lactulose 10 gm PO BID PRN PRN Reason: Constipation Oxybutynin Xl [Ditropan XL] 5 mg PO BID Clotrimazole/Betamethasone Dip [Lotrisone Cream] 1 applic TOPICAL BID PRN PRN Reason: RASH/REDNESS Calazime 1 applic TOPICAL Q12H PRN PRN Reason: REDNESS Acetaminophen-Codeine 300-30mg [Tylenol w/codeine #3] 1 tab PO Q8H PRN #30 PRN Reason: mild/moderate pain Changed QUEtiapine [SEROquel] 600 mg PO HS #45 Discontinued Citalopram Hydrobromide [Citalopram HBr] 40 mg PO DAILY Acetaminophen [Tylenol] 650 mg PO Q4H PRN PRN Reason: Mild Pain Discharge Medication List Cholecalciferol [Vitamin D3] 2,000 unit PO HS 08/06/14 [History] Cyanocobalamin [Vitamin B-12] 1,000 mcg PO Q48H 08/06/14 [History] Gabapentin [Neurontin] 300 mg PO BID@0900,1700 07/21/16 [History] Nitroglycerin Sl Tabs [Nitrostat] 0.4 mg SUBLINGUAL Q5M PRN 07/22/16 [History] Calcium Carbonate [Tums] 500 mg PO TID PRN 07/27/16 [History] Budesonide [Pulmicort] 0.5 mg INHALATION RT-BID neb 12/21/16 [Rx] Albuterol Nebulized [Ventolin Nebulized] 2.5 mg INHALATION RT-Q6H PRN 12/30/16 [ History] Atorvastatin [Lipitor] 10 mg PO HS 12/30/16 [History] Calamine/Zinc Oxide Lotion [Calamine Lotion] 1 applic TOPICAL Q6H PRN 12/30/16 [ History] Ferrous Sulfate [Iron (65 MG Elemental)] 325 mg PO DAILY@1700 12/30/16 [History] Omeprazole 20 mg PO AC-BID 12/30/16 [History] Ondansetron [Zofran] 4 mg PO Q8HR PRN 12/30/16 [History] Vit C/E/Zn/Coppr/Lutein/Zeaxan [Preservision Areds 2 Softgel] 1 cap PO DAILY 02/07 [History] Apixaban [Eliquis] 5 mg PO BID tab 01/15/17 [Rx] Digoxin [Lanoxin] 125 mcg PO DAILY tab 01/15/17 [Rx] Amino Acids/Protein Hydrolys [Pro-Stat Supplement] 30 ml PO BID 02/16/17 [ History] Artificial Tears-Hypromellose [Artificial Tear Drops] 2 drops RIGHT EYE Q4H PRN 02/25/17 [History] Calazime 1 applic TOPICAL Q12H PRN 02/25/17 [History] Clotrimazole/Betamethasone Dip [Lotrisone Cream] 1 applic TOPICAL BID PRN [History] Lactulose 10 gm PO BID PRN 02/25/17 [History] Metoprolol Tartrate [Lopressor] 25 mg PO Q8H 02/25/17 [History] Oxybutynin Xl [Ditropan XL] 5 mg PO BID 02/25/17 [History] Tobramycin 0.3% Ophth Soln [Tobrex 0.3% Ophth Soln] 1 drop BOTH EYES Q4H [History] Acetaminophen-Codeine 300-30mg [Tylenol w/codeine #3] 1 tab PO Q8H PRN #30 02/07 [Rx] Baclofen [Lioresal] 5 mg PO Q6H PRN #20 tablet 03/01/17 [Rx] Citalopram Hydrobromide [CeleXA] 20 mg PO DAILY tab 03/01/17 [Rx] Hydrocortisone Cream [Hydrocortisone 1% Cream] 1 applic TOPICAL BID PRN dose [Rx] Isosorbide Mononitrate ER [Imdur] 60 mg PO DAILY tab 03/01/17 [Rx] Nitrofurantoin Monohyd/M-Cryst [Macrobid] 100 mg PO Q12HR #8 cap 03/01/17 [Rx] QUEtiapine [SEROquel] 600 mg PO HS #45 03/01/17 [Rx] traMADol HCL [Ultram] 50 mg PO Q6HR PRN #20 tab 03/01/17 [Rx] Follow up Appointment(s)/Referral(s): Thomas Chew MD [STAFF PHYSICIAN] - 03/02/17 Matthew Elmore MD [STAFF PHYSICIAN] - 10 Days Loki Gomes MD [Primary Care Provider] - As Needed Brown Jade MD [STAFF PHYSICIAN] - 2 Weeks Ambulatory/Diagnostic Orders: Basic Metabolic Panel [LAB.AMB] Location: Determined By Patient Complete Blood Count w/diff [LAB.AMB] Location: Determined By Patient Activity/Diet/Wound Care/Special Instructions: pureed dysphagia diet I Wound Care to Left Axilla: Pack with Aquacel rope secure with gauze and tape should be done on Wednesday and Wednesday Discharge Disposition: TRANSFER TO PSYCH HOSP/UNIT
[2017-03-01] MEDS: FERROUS SULFATE 325 MG TAB PO SCH (17:50)
[2017-03-01] MEDS: ATORVASTATIN 10 MG TAB PO SCH (21:26)
--- NOTE | 2017-03-01 21:27 | P.PN ---
Subjective Progress Note Date: 03/01/17 Principal diagnosis: abscess left axilla 61-year-old female known to the infectious disease service from her recent hospitalizations is brought back to hospital. Having ongoing difficulties with her psychiatric illness. She does have difficulties medically with a significant abscess and ulcer to the left axillary area. This was incised and drained several weeks ago. Negative pressure therapy is been utilized. She's been following the wound healing center with Dr. sade vides. Is also been evaluated by the ID service there. Because of her needs to be transferred to an inpatient psychiatric facility further any nausea was requested regarding her wound care. The patient herself is quite desponded. She is arousable but a poor historian at this time. Further information does come from the chart. The patient is feeling somewhat better today. Wound VAC was removed yesterday. And with this she is having much less pain. Her affect was much brighter and more interactive with this observer them with the nursing staff. Does continue to have a waxing and waning mental status. Objective - Vital Signs Vital signs: Vital Signs Temp 98.2 F 03/01/17 15:00 Pulse 73 03/01/17 15:00 Resp 16 03/01/17 15:00 BP 124/64 03/01/17 15:00 Pulse Ox 97 03/01/17 15:00 Intake & Output 03/01/17 03/01/17 03/02/17 06:59 18:59 06:59 Intake Total 1500 300 Output Total 600 1800 700 Balance 900 -1500 -700 Intake: Intake, IV Titration 1000 Amount Sodium Chloride 0.9% 1, 1000 000 ml @ 100 mls/hr IV . Q10H [facility] Rx#:[id number] Oral 500 300 Output: Urine 600 1800 700 Other: Voiding Method Indwelling Catheter Indwelling Catheter # Bowel Movements 1 - Exam Gen: This is a 61-year-old morbidly obese female. She is in bed and appears to be comfortable. HEENT: Head is atraumatic, normocephalic. Pupils equal, round. Sclerae is anicteric. Conjunctiva pale. Mucous membranes of the mouth are very dry. NECK: Supple. No JVD. No lymphadenopathy. No thyromegaly. LUNGS: Diminished to the bilateral bases. No wheezing.. No intercostal retractions. HEART: Irregular rate and rhythm. No murmur. ABDOMEN: Morbidly obese. Soft. Bowel sounds are present. No masses. Tenderness to the bilateral lower quadrants. EXTREMITIES: Prior PICC line site is noted without erythema. The patient self removed the line. Left axilla is now packed with the silver alginate rope which is much less uncomfortable, please refer to the nursing photography and measurements for the left axillary ulceration. Much improved from the last evaluation. there is the lack of significant drainage at this time. NEUROLOGICAL: Patient is arousable is more interactive in conversation today. She is very pleased that the wound VAC has been removed because she is having so much less pain. - Labs CBC & Chem 7: 03/01/17 09:07 03/01/17 09:07 Labs: Abnormal Lab Results - Last 24 Hours (Table) 03/01/17 03/01/17 Range/Units : 09:07 RBC 3.34 L (3.80-5.40) m/uL Hgb 10.2 L (11.4-16.0) gm/dL Hct 33.9 L (34.0-46.0) % MCV 101.4 H (80.0-100.0) fL MCHC 30.1 L (31.0-37.0) g/dL Chloride 112 H (98-107) mmol/L Glucose 119 H (74-99) mg/dL Laboratory Results WBC 3.8 k/uL (3.8-10.6) 03/01/17 09:07 RBC 3.34 m/uL (3.80-5.40) L 03/01/17 09:07 Hgb 10.2 gm/dL (11.4-16.0) L 03/01/17 09:07 Hct 33.9 % (34.0-46.0) L 03/01/17 09:07 MCV 101.4 fL (80.0-100.0) H 03/01/17 09:07 MCH 30.5 pg (25.0-35.0) 03/01/17 09:07 MCHC 30.1 g/dL (31.0-37.0) L 03/01/17 09:07 RDW 14.9 % (11.5-15.5) 03/01/17 09:07 Plt Count 300 k/uL (150-450) 03/01/17 09:07 Neutrophils % 45 % 03/01/17 09:07 Lymphocytes % 42 % 03/01/17 09:07 Monocytes % 4 % 03/01/17 09:07 Eosinophils % 6 % 03/01/17 09:07 Basophils % 1 % 03/01/17 09:07 Neutrophils # 1.7 k/uL (1.3-7.7) 03/01/17 09:07 Lymphocytes # 1.6 k/uL (1.0-4.8) 03/01/17 09:07 Monocytes # 0.2 k/uL (0-1.0) 03/01/17 09:07 Eosinophils # 0.2 k/uL (0-0.7) 03/01/17 09:07 Basophils # 0.0 k/uL (0-0.2) 03/01/17 09:07 Hypochromasia Slight 03/01/17 09:07 Macrocytosis Slight 03/01/17 09:07 Sodium 142 mmol/L (137-145) 03/01/17 09:07 Potassium 4.5 mmol/L (3.5-5.1) 03/01/17 09:07 Chloride 112 mmol/L (98-107) H 03/01/17 09:07 Carbon Dioxide 22 mmol/L (22-30) 03/01/17 09:07 Anion Gap 8 mmol/L 03/01/17 09:07 BUN 7 mg/dL (7-17) 03/01/17 09:07 Creatinine 0.82 mg/dL (0.52-1.04) 03/01/17 09:07 Est GFR (MDRD) Af Amer >60 (>60 ml/min/1.73 sqM) 03/01/17 09:07 Est GFR (MDRD) Non-Af >60 (>60 ml/min/1.73 sqM) 03/01/17 09:07 Glucose 119 mg/dL (74-99) H 03/01/17 09:07 Calcium 9.4 mg/dL (8.4-10.2) 03/01/17 09:07 Total Bilirubin 0.2 mg/dL (0.2-1.3) 02/25/17 16:27 AST 54 U/L (14-36) H 02/25/17 16:27 ALT 47 U/L (9-52) 02/25/17 16:27 Alkaline Phosphatase 120 U/L (38-126) 02/25/17 16:27 Total Creatine Kinase 29 U/L (30-135) L 02/25/17 22:15 CK-MB (CK-2) 0.4 ng/mL (0.0-2.4) 02/25/17 22:15 CK-MB (CK-2) Rel Index 1.4 02/25/17 22:15 Troponin I <0.012 ng/mL (0.000-0.034) 02/26/17 09:06 Total Protein 5.7 g/dL (6.3-8.2) L 02/25/17 16:27 Albumin 2.6 g/dL (3.5-5.0) L 02/25/17 16:27 TSH 3.590 mIU/L (0.465-4.680) 02/25/17 16:27 Urine Color Yellow 02/24/17 19:45 Urine Appearance Cloudy (Clear) H 02/24/17 19:45 Urine pH 6.5 (5.0-8.0) 02/24/17 19:45 Ur Specific [place] 1.014 (1.001-1.035) 02/24/17 19:45 Urine Protein 2+ (Negative) H 02/24/17 19:45 Urine Glucose (UA) Negative (Negative) 02/24/17 19:45 Urine Ketones Negative (Negative) 02/24/17 19:45 Urine Blood Large (Negative) H 02/24/17 19:45 Urine Nitrite Positive (Negative) H 02/24/17 19:45 Urine Bilirubin Negative (Negative) 02/24/17 19:45 Urine Urobilinogen <2.0 mg/dL (<2.0) 02/24/17 19:45 Ur Leukocyte Esterase Large (Negative) H 02/24/17 19:45 Urine RBC >182 /hpf (0-5) H 02/24/17 19:45 Urine WBC 117 /hpf (0-5) H 02/24/17 19:45 Urine WBC Clumps Few /hpf (None) H 02/24/17 19:45 Urine Bacteria Rare /hpf (None) H 02/24/17 19:45 Urine Mucus Rare /hpf (None) H 02/24/17 19:45 Urine Yeast (Budding) Rare /hpf (None) H 02/24/17 19:45 Microbiology 02/25/17 05:22 Urine,Voided Urine Culture - Final Enterococcus gallinarum Ingrid albicans Assessment and Plan (1) Abscess of axilla, left Narrative/Plan: 61-year-old female well-known to the infectious disease service presents to Hospital for further evaluation of the significant ulceration to her left axillary area. It however. The patient was brought to hospital because of worsening psychiatric issues. She is noted to be in need of placement in a radical psychiatric facility. There is great concerns because the negative pressure therapy system and its presence inhibiting her ability to be cared for other facilities. The ulceration is reviewed. At one point in time was more than 7 cm in depth. Now it is approximately 1 cm in depth. This is a marked improvement. The negative pressure therapy system was discontinued and ulcer packed with Aquacel silver rope to back and in the area utilize gauze to secure it. This can be changed Wednesday and Fridays. Nurses are instructed. There is evidence of urinary tract infection enterococcus is likely present. The Bactrim will be ineffective and Macrobid was requested. When she is medically cleared she may then go to the psychiatric facility on local wound care as noted with the Aquacel silver rope and 7 days of Macrobid for her urinary tract infection. Status: Acute (2) UTI (urinary tract infection) Status: Acute
[2017-03-01] MEDS: CHOLECALCIFEROL 1,000 UNIT TAB PO SCH (21:28)
[2017-03-01] MEDS: QUEtiapine 200 MG TAB PO SCH (21:28)
[2017-03-02] MEDS: TOBRAMYCIN 0.3% OPHTH DROPS 5 ML BTL BOTH EYES SCH ×5 (05:38→20:12)
[2017-03-02] MEDS: BUDESONIDE 0.5 MG/2 ML NEBU INHALATION SCH ×2 (07:26→19:57)
[2017-03-02] MEDS: ALBUTEROL NEBULIZED 2.5 MG/3 ML INHALATION PRN (07:26)
[2017-03-02] MEDS: METOPROLOL TARTRATE 25 MG TAB PO SCH ×3 (08:28→22:11)
[2017-03-02] MEDS: PANTOPRAZOLE 40 MG TABLET PO SCH ×2 (08:29→17:02)
[2017-03-02] MEDS: APIXABAN 5 MG TAB PO SCH ×2 (08:30→20:13)
[2017-03-02] MEDS: CITALOPRAM HYDROBROMIDE 20 MG TAB PO SCH (08:31)
[2017-03-02] MEDS: BACLOFEN 10 MG TAB PO SCH ×4 (08:31→22:10)
[2017-03-02] MEDS: CYANOCOBALAMIN 500 MCG TAB PO SCH (08:32)
[2017-03-02] MEDS: ISOSORBIDE MONONITRATE ER 60 MG TAB.ER.24H PO SCH (08:34)
[2017-03-02] MEDS: DIGOXIN 125 MCG TAB PO SCH (08:34)
[2017-03-02] MEDS: GABAPENTIN 300 MG CAP PO SCH ×2 (08:34→17:02)
[2017-03-02] MEDS: NITROFURANTOIN MONOHYD/M-CRYST 100 MG CAP PO SCH ×2 (08:35→20:14)
[2017-03-02] MEDS: VIT A,C & E-LUTEIN-MINERALS 1 EACH TAB PO SCH (08:35)
[2017-03-02] MEDS: OXYBUTYNIN XL 5 MG TAB.ER.24 PO SCH ×2 (08:35→20:14)
[2017-03-02] MEDS ORDERED: RX INFO: IV CONTRAST WAS GIVEN 1 EACH MISC MISCELLANE PRN (10:33)
--- NOTE | 2017-03-02 11:04 | CT ---
EXAMINATION TYPE: CT brain wo con DATE OF EXAM: 03/02/2017 COMPARISON: 12/04/2016 HISTORY: Code stroke CT DLP: 1012.[address] of the brain was performed. The ventricles, basal cisterns and sulci overlying the cerebral convexities demonstrate mild enlargem ent. Remote occipital insults noted. There is no evidence for intracranial hemorrhage or sulcal effacement. There is decreased attenuation about the periventricular white matter and deep white matter of both c erebral hemispheres, compatible with chronic small vessel ischemia. Differential diagnosis does inclu de demyelination. No mass effects are seen.No midline shift. Osseous calvarium is intact. If symptoms persist consider MRI. IMPRESSION: 1. Age related atrophic and chronic small vessel ischemic change without acute intracranial process s een at this time.
--- NOTE | 2017-03-02 11:41 | CT ---
EXAMINATION TYPE: CT angio head neck DATE OF EXAM: 03/02/2017 COMPARISON: NONE HISTORY: Altered mental status CT DLP: 320.20 mGycm CONTRAST: Performed with IV Contrast, patient injected with 65 ml mL of Omnipaque 350. Combination Contrast CTA cervical carotids and [place] CTA cervical carotids with 3-D recons truction Contrast CTA of the cervical carotids was performed 3-D reconstruction imaging obtained at a separate workstation. Right carotid system: Mild plaque is seen of the right common carotid artery. There is mild plaque a lso noted at the carotid bulb and proximal ICA. No significant diameter reduction. ECA is patent. Right vertebral artery appears unremarkable. Left carotid system: Mild plaque is seen of the left common carotid artery. There is mild plaque als o noted at the carotid bulb and proximal ICS. No significant diameter reduction. ECA is patent. Lef t vertebral artery appears unremarkable. IMPRESSION: 1. No significant diameter reduction to account for the patient's symptoms. CTA [place] with 3-D reconstruction Contrast CTA of the [place] was performed 3-D reconstruction imaging obtained at a separate workstation. Vertebrobasilar system as well as intracranial portions of the internal carotid arteries and their ma ria tributaries are patent. I do not see evidence for sizable aneurysm or vascular malformation. Pl ease note MRI provides greater sensitivity and specificity. Visualized brain appears grossly unremar kable. IMPRESSION: 1. No siginificant abnormality.
[2017-03-02 11:58] LABS: Cholesterol 130 mg/dL (<200); HDL Cholesterol 40 mg/dL (40-60)
[2017-03-02 12:13] LABS: Glucose,Whole Blood 122 mg/dL (75-99)
[2017-03-02] MEDS: ASPIRIN 81 MG PO SCH (12:21)
[2017-03-02] MEDS: ACETAMINOPHEN TAB 325 MG TAB PO PRN ×2 (13:57→20:17)
[2017-03-02] MEDS: FERROUS SULFATE 325 MG TAB PO SCH (17:02)
--- NOTE | 2017-03-02 17:27 | P.PN ---
Progress Note - Text Progress Note Date: 03/01/17 DATE OF SERVICE: 03/01/2017 PRESENTING COMPLAINT: suicidal ideation HISTORY OF PRESENT ILLNESS: 61-year-old patient resident [facility]. Has a history of an axilla wound chronic wound VAC in place. Because of her complicated course and slow recovery time, patient has become depressed regarding her slow process. Verbalized to one of the nursing aides that she wanted to put the oxygen tubing around her neck and strangulated herself admitted for the same. INTERVAL HISTORY: 03/01/2017: No acute overnight events, patient sitting up in a chair, states she feels really good. Discussion was had with psychiatry patient is no longer a candidate for inpatient mental health admission she is no longer suicidal and feels that it would not be beneficial at this point. Psychiatry will continue to follow. Anxious to get back to [facility] and get back in the rehab and get stronger and go home. Transfers with assistance, tolerating her diet eating roughly 75-100% of each meal, moved her bowels. 02/28/2017: No acute overnight events, lying in bed, patient's mood does not characterize what she is feeling. Outwardly seems bright and perky, when asked about how she feels continues to feel sad and depressed. Not feeling acutely suicidal. Wound VAC removed by ID. Continue local dressing changes to axilla. Tolerating her diet up with assistance.agreeable to work with physical therapy. 02/27/2017: No acute overnight events,sitting up in a chair, patient continues to feel somewhat depressed although improving,patient seen by psychiatryand not feeling acutely suicidal bedside sitter has been discontinued. Infectious disease seen the patient and recommends stopping the wound VAC. We'll continue with local dressing changes to the axilla.patient is tolerating her diet able to get up with assistance. REVIEW OF SYSTEMS: Done for constitutional ,cardiovascular, GI, pulmonary, integument with relevant findings as above. CURRENT MEDICATIONS Tylenol No. 3, Eliquis, Lipitor, baclofen 10 mg by mouth 4 times a day, Lotrisone,Pulmicort, Feosol, gabapentin, Imdur, lactulose 10 g by mouth twice a day, Lopressor 25 mg by mouth every 8 hours, Macrobid 100 mg by mouth twice a day, Ditropan XL 5 mg by mouth twice a day, Protonix 40 mg by mouth before meals twice a day, Seroquel 600 mg by mouth at bedtime. PHYSICAL EXAM VITAL SIGNS: Temperature 97.2, pulse 75, respiratory rate 16, blood pressure 108/62, oxygen saturation 96% on room air. GENERAL APPEARANCE: sitting up in a chair appears more perky, Name and called it out EYES: Pupils equal. Conjunctiva normal. NECK: JVD not raised. Mass not palpable. RESPIRATORY: Respiratory effort normal. Lungs diminished bilaterally to auscultation. CARDIOVASCULAR: First and second sounds normal. mild edema. ABDOMEN: Soft. Liver and spleen not palpable. No tenderness. No mass palpable. PSYCHIATRY: Alert and oriented x3. Mood and affect lowl. INTEGUMENT: Left axilla dressing in place wound VAC removed no drainage noted INVESTIGATIONS: none new ASSESSMENT: -schizoaffective disorder, bipolar type with suicidal ideation, present on admission. 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 -Gastroesophageal reflux disease. -Essential hypertension. -Hyperlipidemia. -Anxiety not otherwise specified -Peripheral neuropathy, idiopathic. -Hiatal hernia. -Medical debility. PLAN: continue Seroquel and Celexa per psychiatry, patient no longer meets inpatient criteria for mental health admission plans to transfer patient back to [facility]. When bed available. Plan of care discussed with the patient the bedside she is in agreement. We'll follow EXTRACORPOREAL TECHNICIAN statement: Patient was seen and examined by nurse practitioner Carlotta Ibarra and all elements of the case discussed with attending Dr. Elizabeth
--- NOTE | 2017-03-02 17:47 | P.PN ---
Progress Note - Text Progress Note Date: 03/02/17 DATE OF SERVICE: 03/02/2017 PRESENTING COMPLAINT: suicidal ideation HISTORY OF PRESENT ILLNESS: 61-year-old patient resident Sabino JJ. Has a history of an axilla wound chronic wound VAC in place. Because of her complicated course and slow recovery time, patient has become depressed regarding her slow process. Verbalized to one of the nursing aides that she wanted to put the oxygen tubing around her neck and strangulated herself admitted for the same. INTERVAL HISTORY: 03/02/2017: Seeing the patient in follow-up, patient was unable to verbalize my name or her own name to me on exam. Right sided facial drooping noted unable to use her right hand, patient did appear to know what she wanted to say but was not able to verbalize. Code stroke called, stroke protocols initiated, on rounds with attending physician patient did appear to be somewhat better, although minor right-sided facial drooping continue to be present, continue to have some difficulty with word finding. Patient does have a history of stroke. Neurology consulted 03/01/2017: No acute overnight events, patient sitting up in a chair, states she feels really good. Discussion was had with psychiatry patient is no longer a candidate for inpatient mental health admission she is no longer suicidal and feels that it would not be beneficial at this point. Psychiatry will continue to follow. Anxious to get back to [facility] and get back in the rehab and get stronger and go home. Transfers with assistance, tolerating her diet eating roughly 75-100% of each meal, moved her bowels. 02/28/2017: No acute overnight events, lying in bed, patient's mood does not characterize what she is feeling. Outwardly seems bright and perky, when asked about how she feels continues to feel sad and depressed. Not feeling acutely suicidal. Wound VAC removed by ID. Continue local dressing changes to axilla. Tolerating her diet up with assistance.agreeable to work with physical therapy. 02/27/2017: No acute overnight events,sitting up in a chair, patient continues to feel somewhat depressed although improving,patient seen by psychiatryand not feeling acutely suicidal bedside sitter has been discontinued. Infectious disease seen the patient and recommends stopping the wound VAC. We'll continue with local dressing changes to the axilla.patient is tolerating her diet able to get up with assistance. REVIEW OF SYSTEMS: Done for constitutional ,cardiovascular, GI, pulmonary, integument with relevant findings as above. CURRENT MEDICATIONS Tylenol No. 3, Eliquis, Lipitor, baclofen 10 mg by mouth 4 times a day, Lotrisone,Pulmicort, Feosol, gabapentin, Imdur, lactulose 10 g by mouth twice a day, Lopressor 25 mg by mouth every 8 hours, Macrobid 100 mg by mouth twice a day, Ditropan XL 5 mg by mouth twice a day, Protonix 40 mg by mouth before meals twice a day, Seroquel 600 mg by mouth at bedtime. PHYSICAL EXAM VITAL SIGNS: Temperature 98.2, pulse 84, respirations 16, blood pressure 119/66, oxygen saturation 94% on room air. GENERAL APPEARANCE: Sitting up in bed, not able to verbalize her name, was able to recognize me. EYES: Pupils equal. Conjunctiva normal. NECK: JVD not raised. Mass not palpable. RESPIRATORY: Respiratory effort normal. Lungs diminished bilaterally to auscultation. CARDIOVASCULAR: First and second sounds normal. mild edema. ABDOMEN: Soft. Liver and spleen not palpable. No tenderness. No mass palpable. PSYCHIATRY: Unable to determine given patient's current condition NEUROLOGIC: Difficulty with speech, difficulty following command unable to perform push pull, INTEGUMENT: Left axilla dressing in place wound VAC removed no drainage noted INVESTIGATIONS: Accu-Cheks noted Brain CT: Age-related atrophic and chronic small vessel ischemic changes without acute intracranial process seen at this time. CT angiography: No significant diameter reduction to The patient's symptoms, CTA g[place] of [place] with 3-D reconstruction, no significant abnormality. Urine culture: Enterococcus, gallinarum ASSESSMENT: -Acute stroke difficulty finding words, performing activity, right-sided facial droop, imaging negative for an acute infarct, based on clinical symptoms in a patient with a prior history of stroke -schizoaffective disorder, bipolar type with suicidal ideation, present on admission, improving -Acute urinary tract infection,urine culture positive for enterococcus gallinarum improving -Chronic left axilla wound local dressing change per infectious disease -Coronary artery disease with nonobstructive 50% LAD lesion. -Gastroesophageal reflux disease. -Essential hypertension. -Hyperlipidemia. -Anxiety not otherwise specified -Peripheral neuropathy, idiopathic. -Hiatal hernia. -Medical debility. PLAN: continue Seroquel and Celexa per psychiatry, PT/OT and speech on consult, Lipitor added to patient's regimen neurology consulted await their input, patient was due to transfer back to [facility] discharge has been held for the time being. Patient transferred to [facility] selective for closer monitoring, plan of care discussed with the patient the bedside she is in agreement. We will follow closely. THIRD GRADE TEACHER statement: Patient was seen and examined by nurse practitioner Carltota Ibarra and all elements of the case discussed with attending Dr. Elizabeth
[2017-03-02] MEDS: CHOLECALCIFEROL 1,000 UNIT TAB PO SCH (20:13)
[2017-03-02] MEDS: QUEtiapine 200 MG TAB PO SCH (20:14)
[2017-03-02] MEDS ORDERED: ATORVASTATIN 40 MG TAB PO SCH (21:00)
--- NOTE | 2017-03-02 22:15 | P.PN ---
Subjective Progress Note Date: 03/02/17 Principal diagnosis: abscess left axilla 61-year-old female known to the infectious disease service from her recent hospitalizations is brought back to hospital. Having ongoing difficulties with her psychiatric illness. She does have difficulties medically with a significant abscess and ulcer to the left axillary area. This was incised and drained several weeks ago. Negative pressure therapy is been utilized. She's been following the wound healing center with Dr. sade vides. Is also been evaluated by the ID service there. Because of her needs to be transferred to an inpatient psychiatric facility further any nausea was requested regarding her wound care. The patient herself is quite desponded. She is arousable but a poor historian at this time. Further information does come from the chart. The patient is feeling somewhat better today. Wound VAC was removed and with this she is having much less pain. Her affect continues to wax and wane. However today she had a change of her neurological status. 18 was called. She was moved to intensive care unit. Nursing staff relates that she has now much improved. Objective - Vital Signs Vital signs: Vital Signs Temp 98.6 F 03/02/17 20:00 Pulse 72 03/02/17 20:07 Resp 14 03/02/17 20:00 BP 141/76 03/02/17 19:00 Pulse Ox 97 03/02/17 20:00 Intake & Output 03/02/17 03/02/17 03/03/17 06:59 18:59 06:59 Intake Total 600 1440 Output Total 1750 555 200 Balance -1150 885 -200 Weight 99.5 kg Intake: Oral 600 1440 Output: Urine 1750 555 200 Other: Voiding Method Indwelling Catheter Indwelling Catheter Indwelling Catheter # Voids 1 # Bowel Movements 1 - Exam Gen: This is a 61-year-old morbidly obese female. She is in bed and appears to be comfortable. HEENT: Head is atraumatic, normocephalic. Pupils equal, round. Sclerae is anicteric. Conjunctiva pale. Mucous membranes of the mouth are very dry. NECK: Supple. No JVD. No lymphadenopathy. No thyromegaly. LUNGS: Diminished to the bilateral bases. No wheezing.. No intercostal retractions. HEART: Irregular rate and rhythm. No murmur. ABDOMEN: Morbidly obese. Soft. Bowel sounds are present. No masses. Tenderness to the bilateral lower quadrants. EXTREMITIES: Prior PICC line site is noted without erythema. The patient self removed the line. Left axilla is now packed with the silver alginate rope which is much less uncomfortable, please refer to the nursing photography and measurements for the left axillary ulceration. Much improved from the last evaluation. there is the lack of significant drainage at this time. NEUROLOGICAL: Patient is arousable is more interactive and conversation today. She is very pleased that the wound VAC has been removed because she is having so much less pain. - Labs CBC & Chem 7: 03/01/17 09:07 03/01/17 09:07 Labs: Abnormal Lab Results - Last 24 Hours (Table) 03/01/17 03/02/17 Range/Units : 12:10 POC Glucose (mg/dL) 122 H (75-99) mg/dL Triglycerides 190 H (<150) mg/dL Laboratory Results WBC 3.8 k/uL (3.8-10.6) 03/01/17 09:07 RBC 3.34 m/uL (3.80-5.40) L 03/01/17 09:07 Hgb 10.2 gm/dL (11.4-16.0) L 03/01/17 09:07 Hct 33.9 % (34.0-46.0) L 03/01/17 09:07 MCV 101.4 fL (80.0-100.0) H 03/01/17 09:07 MCH 30.5 pg (25.0-35.0) 03/01/17 09:07 MCHC 30.1 g/dL (31.0-37.0) L 03/01/17 09:07 RDW 14.9 % (11.5-15.5) 03/01/17 09:07 Plt Count 300 k/uL (150-450) 03/01/17 09:07 Neutrophils % 45 % 03/01/17 09:07 Lymphocytes % 42 % 03/01/17 09:07 Monocytes % 4 % 03/01/17 09:07 Eosinophils % 6 % 03/01/17 09:07 Basophils % 1 % 03/01/17 09:07 Neutrophils # 1.7 k/uL (1.3-7.7) 03/01/17 09:07 Lymphocytes # 1.6 k/uL (1.0-4.8) 03/01/17 09:07 Monocytes # 0.2 k/uL (0-1.0) 03/01/17 09:07 Eosinophils # 0.2 k/uL (0-0.7) 03/01/17 09:07 Basophils # 0.0 k/uL (0-0.2) 03/01/17 09:07 Hypochromasia Slight 03/01/17 09:07 Macrocytosis Slight 03/01/17 09:07 Sodium 142 mmol/L (137-145) 03/01/17 09:07 Potassium 4.5 mmol/L (3.5-5.1) 03/01/17 09:07 Chloride 112 mmol/L (98-107) H 03/01/17 09:07 Carbon Dioxide 22 mmol/L (22-30) 03/01/17 09:07 Anion Gap 8 mmol/L 03/01/17 09:07 BUN 7 mg/dL (7-17) 03/01/17 09:07 Creatinine 0.82 mg/dL (0.52-1.04) 03/01/17 09:07 Est GFR (MDRD) Af Amer >60 (>60 ml/min/1.73 sqM) 03/01/17 09:07 Est GFR (MDRD) Non-Af >60 (>60 ml/min/1.73 sqM) 03/01/17 09:07 Glucose 119 mg/dL (74-99) H 03/01/17 09:07 POC Glucose (mg/dL) 122 mg/dL (75-99) H 03/02/17 12:10 POC Glu Technical Support Intern DALIA Neema John 03/02/17 12:10 Calcium 9.4 mg/dL (8.4-10.2) 03/01/17 09:07 Total Bilirubin 0.2 mg/dL (0.2-1.3) 02/25/17 16:27 AST 54 U/L (14-36) H 02/25/17 16:27 ALT 47 U/L (9-52) 02/25/17 16:27 Alkaline Phosphatase 120 U/L (38-126) 02/25/17 16:27 Total Creatine Kinase 29 U/L (30-135) L 02/25/17 22:15 CK-MB (CK-2) 0.4 ng/mL (0.0-2.4) 02/25/17 22:15 CK-MB (CK-2) Rel Index 1.4 02/25/17 22:15 Troponin I <0.012 ng/mL (0.000-0.034) 02/26/17 09:06 Total Protein 5.7 g/dL (6.3-8.2) L 02/25/17 16:27 Albumin 2.6 g/dL (3.5-5.0) L 02/25/17 16:27 Triglycerides 190 mg/dL (<150) H 03/01/17 09:07 Cholesterol 130 mg/dL (<200) 03/01/17 09:07 LDL Cholesterol, Calc 52 mg/dL (0-99) 03/01/17 09:07 HDL Cholesterol 40 mg/dL (40-60) 03/01/17 09:07 TSH 3.590 mIU/L (0.465-4.680) 02/25/17 16:27 Urine Color Yellow 02/24/17 19:45 Urine Appearance Cloudy (Clear) H 02/24/17 19:45 Urine pH 6.5 (5.0-8.0) 02/24/17 19:45 Ur Specific Boykins 1.014 (1.001-1.035) 02/24/17 19:45 Urine Protein 2+ (Negative) H 02/24/17 19:45 Urine Glucose (UA) Negative (Negative) 02/24/17 19:45 Urine Ketones Negative (Negative) 02/24/17 19:45 Urine Blood Large (Negative) H 02/24/17 19:45 Urine Nitrite Positive (Negative) H 02/24/17 19:45 Urine Bilirubin Negative (Negative) 02/24/17 19:45 Urine Urobilinogen <2.0 mg/dL (<2.0) 02/24/17 19:45 Ur Leukocyte Esterase Large (Negative) H 02/24/17 19:45 Urine RBC >182 /hpf (0-5) H 02/24/17 19:45 Urine WBC 117 /hpf (0-5) H 02/24/17 19:45 Urine WBC Clumps Few /hpf (None) H 02/24/17 19:45 Urine Bacteria Rare /hpf (None) H 02/24/17 19:45 Urine Mucus Rare /hpf (None) H 02/24/17 19:45 Urine Yeast (Budding) Rare /hpf (None) H 02/24/17 19:45 Microbiology 02/25/17 05:22 Urine,Voided Urine Culture - Final Enterococcus gallinarum Ingrid albicans Assessment and Plan (1) Abscess of axilla, left Narrative/Plan: 61-year-old female well-known to the infectious disease service presents to Hospital for further evaluation of the significant ulceration to her left axillary area. It however. The patient was brought to hospital because of worsening psychiatric issues. She is noted to be in need of placement in a radical psychiatric facility. There is great concerns because the negative pressure therapy system and its presence inhibiting her ability to be cared for other facilities. The ulceration is reviewed. At one point in time was more than 7 cm in depth. Now it is approximately 1 cm in depth. This is a marked improvement. The negative pressure therapy system was discontinued and ulcer packed with Aquacel silver rope to back and in the area utilize gauze to secure it. This can be changed Wednesday and Fridays. Nurses are instructed. There is evidence of urinary tract infection enterococcus is likely present. The Bactrim will be ineffective and Macrobid was requested. A 18 was called with code stroke with concerns to the change of her mental status. Since computed tomography scan is normal. Neurological follow-up is in progress. She is now improved this afternoon. We'll move out of the ICU soon. When she is medically cleared she may then go to the psychiatric facility on local wound care as noted with the Aquacel silver rope and 7 days of Macrobid for her urinary tract infection. Status: Acute (2) UTI (urinary tract infection) Status: Acute
--- NOTE | 2017-03-02 23:07 | PN ---
PROGRESS NOTE DATE OF SERVICE: 03/02/2017 ATTENDING NOTE: This patient was seen and examined by me. I discussed with the nurse practitioner, Ms. Ibarra. This patient was admitted with suicidal ideation. That actually is improved. This morning, the patient's speech became altered. I came down to see the patient. EXAMINATION: On examination, there was weakness on the left side of the face. Mouth was pulled a bit to the right. A stat CT scan came back negative. A CT angio that was done did not show any abnormalities. The patient is added on baby aspirin. Lipitor was increased to 40 mg a day. Sent up to the [facility] for stroke protocol. Neuro checks are in place. Patient will be observed at least 24 more hours, go from there. MMODL / IJN: [id number] /
--- NOTE | 2017-03-02 23:49 | PN ---
PROGRESS NOTE ATTENDING NOTE: This patient was seen and examined by me on 03/01/17. I discussed the case with my nurse practitioner, Ms. Ibarra. Patient was admitted with suicidal ideation; now doing better, tolerating a diet. Looking at going back to the ECF. Sitting up. PHYSICAL EXAMINATION: LUNGS: Fair air entry. CARDIOVASCULAR: First and second sounds normal. INVESTIGATIONS: White count 3.8, hemoglobin 10.2, potassium 4.5. ASSESSMENT: Schizophrenic disorder with bipolar with suicidal ideation, now improved. Continue current medication and treatment plan. Patient is getting treatment for UTI. Looking at the patient going to the ECF. MMODL / IJN: [id number] /
[2017-03-03] MEDS: TOBRAMYCIN 0.3% OPHTH DROPS 5 ML BTL BOTH EYES SCH ×4 (00:16→12:54)
[2017-03-03 05:57] LABS: Anion Gap 9 mmol/L; Blood Urea Nitrogen 9 mg/dL (7-17); Calcium 9.4 mg/dL (8.4-10.2); Carbon Dioxide 26 mmol/L (22-30); Chloride 108 mmol/L (98-107); Glucose 94 mg/dL (74-99); Non-African American GFR(MDRD) >60 (>60 ml/min/1.73 sqM); Potassium 4.1 mmol/L (3.5-5.1); Sodium 143 mmol/L (137-145)
[2017-03-03 05:59] LABS: CH 30.9; CHCM 30.9; HCT 33.9 % (34.0-46.0); HDW 2.38; HGB 10.5 gm/dL (11.4-16.0); Hypochromasia Slight; MCH 31.1 pg (25.0-35.0); MCV 100.5 fL (80.0-100.0); Macrocytosis Slight; Mean Platelet Volume 7.3; RBC 3.37 m/uL (3.80-5.40); RDW 14.7 % (11.5-15.5); WBC 4.4 k/uL (3.8-10.6); WBC (Perox) 4.46
[2017-03-03 06:22] LABS: Add Differential Manual Differential
[2017-03-03 06:25] LABS: Manual Review Performed; Nucleated Red Blood Cells 0 /100 WBC (0-0); Total Cells Counted 100
--- NOTE | 2017-03-03 06:39 | P.CNNES ---
History of Present Illness Consult date: 03/02/17 Reason for Consult: Patient with symptoms of acute stroke. History of Present Illness: This patient is a 61-year-old right-handed white female who was admitted to [facility] on 02/25/2017 as a transfer from [facility]. Patient has had recent hospitalizations for treatment of a abscess and also to her left axillary area. This was incised and drained several weeks ago. She had been following up in the wound care center for further treatment. She had to use a wound VAC for further treatment of this abscess area. Apparently while at the [facility] she had told several of the nursing staff there that she was feeling very depressed. She does have a history of schizoaffective disorder and has been seen and treated by psychiatry. She had told the nursing staff and several aides at the detention that she wanted to strangulate herself with her oxygen tubing. For this reason she was transferred to [facility] for further evaluation and possible admission to the inpatient psychiatric unit. Early this morning at about 10:27 AM the patient showed signs of acute stroke with bilateral arm and leg weakness. Apparently the admitting physician noted left-sided weakness and initiated a code stroke. Patient was transferred to the ICU for close monitoring. Late this evening she was transferred back to the medical floor where she is seen today. At this time the patient is arousable and is able to answer questions. She does not show any acute signs of stroke or focal weakness. During the code stroke she was evaluated via the stroke robotic by Dr. Hernández. Her initial NIH stroke scale was noted to be 13. Her repeat NIH showed a significant improvement in her score was noted to be 6.0. The neural interventionalists did not feel she was a candidate for TPA. She did not require mechanical thrombectomy. They recommended that she be admitted for complete stroke evaluation. As noted she showed significant improvement and was transferred to [facility] where she is now residing. Patient states she is unaware which side she had extreme weakness in her arms and legs. She is able to move all extremities at this time. She does have a known history of underlying paroxysmal atrial fibrillation. She is being treated for this condition and was taking Eliquis. The patient denies any headache or focal weakness at this time. Apparently this morning when the primary care physician evaluated her she showed right- sided facial drooping and right hand weakness. She is able to move both extremities without any focal weakness at this time. She was sent for any acute CAT scan of the brain following this event in the ICU. The CAT scan is reported to show age-related atrophy and chronic small vessel ischemic changes. There was no evidence of acute stroke or hemorrhage. She also underwent CTA of the head and neck. This is reported to be negative with no significant abnormalities. The patient is being followed by psychiatry for treatment of her schizoaffective disorder which is of bipolar type. She is currently on a combination of Seroquel and Celexa. She will be admitted to the inpatient psychiatric service once she is medically stable on a voluntary status. Suicide precautions were removed by psychiatry. She is now resting comfortably and neurology has been consulted for further evaluation and recommendations. Review of Systems Constitutional: Denies chills, Denies fever Eyes: denies blurred vision, denies pain Ears, nose, mouth and throat: Denies headache, Denies sore throat Cardiovascular: Denies chest pain, Denies shortness of breath Respiratory: Denies cough Gastrointestinal: Denies abdominal pain, Denies diarrhea, Denies nausea, Denies vomiting Genitourinary: Denies dysuria, Denies hematuria Musculoskeletal: Denies myalgias Integumentary: Denies pruritus, Denies rash Neurological: Reports aphasia, Reports change in mentation, Reports change in speech, Reports confusion, Reports paresthesias, Reports tingling, Denies numbness, Denies weakness Psychiatric: Reports disorientation, Reports memory loss, Reports mood swings, Denies anxiety, Denies depression Endocrine: Denies fatigue, Denies weight change Past Medical History Past Medical History: Asthma, Coronary Artery Disease (CAD), Cancer, Chest Pain / Angina, CVA/TIA, Eye Disorder, GERD/Reflux, Hyperlipidemia, Hypertension Additional Past Medical History / Comment(s): Bronchial asthma, obesity, chronic lower extremity edema, L axillae cellulitis/abscess-cultures grew peptostreptococcus and MSSA-had I&D . Other hx: shingles/staph, R eye macular degeneration, TIA, hiatal hernia, uterine cancer with hysterectomy, tardive dyskinesia, peripheral neuropathy cause unknown, migraines, sinus problems has coronary artery disease with 50% lesion of the LAD, paroxysmal atrial fibrillation, hypertension, acid reflux, schizophrenic disorder, anxiety, peripheral neuropathy, wound vac, PICC line (removed), retention w/ chronic Bell. History of Any Multi-Drug Resistant Organisms: None Reported Past Surgical History: Adenoidectomy, Back Surgery, Cholecystectomy, Ear Surgery , Heart Catheterization, Hysterectomy, Tonsillectomy Additional Past Surgical History / Comment(s): I & D L axillae, L eye surgery for lazy eye, bilateral cataract removal, bilateral myringotomy/tubes, colonoscopy, cardiac cath on 07/24/2016 with moderate stenosis of LAD noted - no stenting at that time recommend medical management and return for angioplasty if sx persist Past Anesthesia/Blood Transfusion Reactions: No Reported Reaction Past Psychological History: Anxiety, Depression, Schizoaffective Disorder Additional Psychological History / Comment(s): Is normally a resident of a [facility]. Smoking Status: Never smoker Past Alcohol Use History: None Reported Additional Past Alcohol Use History / Comment(s): Pt states she used to drink occasionally but has not had any alcohol since 2006. Denies alcoholism. Past Drug Use History: None Reported - Past Family History Mother Family Medical History: Myocardial Infarction (CT) Additional Family Medical History / Comment(s): Mother at 72 yrs. Father Family Medical History: Cancer Additional Family Medical History / Comment(s): Throat cancer; father at 72 yrs. Brother(s) Family Medical History: Cancer Additional Family Medical History / Comment(s): Liver cancer Medications and Allergies Home Medications Medication Instructions Recorded Confirmed Type Cholecalciferol [Vitamin D3] 2,000 unit PO HS 08/06/14 02/25/17 History Cyanocobalamin [Vitamin B-12] 1,000 mcg PO Q48H 08/06/14 02/25/17 History Gabapentin [Neurontin] 300 mg PO BID@0900,1700 07/21/16 02/25/17 History Nitroglycerin Sl Tabs [Nitrostat] 0.4 mg SUBLINGUAL Q5M PRN 07/22/16 02/25/17 History Calcium Carbonate [Tums] 500 mg PO TID PRN 07/27/16 02/25/17 History Budesonide [Pulmicort] 0.5 mg INHALATION RT-BID neb 12/21/16 02/25/17 Rx Albuterol Nebulized [Ventolin 2.5 mg INHALATION RT-Q6H PRN 12/30/16 02/25/17 History Nebulized] Atorvastatin [Lipitor] 10 mg PO HS 12/30/16 02/25/17 History Calamine/Zinc Oxide Lotion 1 applic TOPICAL Q6H PRN 12/30/16 02/25/17 History [Calamine Lotion] Ferrous Sulfate [Iron (65 MG 325 mg PO DAILY@1700 12/30/16 02/25/17 History Elemental)] Omeprazole 20 mg PO AC-BID 12/30/16 02/25/17 History Ondansetron [Zofran] 4 mg PO Q8HR PRN 12/30/16 02/25/17 History Vit C/E/Zn/Coppr/Lutein/Zeaxan 1 cap PO DAILY 12/30/16 02/25/17 History [Preservision Areds 2 Softgel] Apixaban [Eliquis] 5 mg PO BID tab 01/15/17 02/25/17 Rx Digoxin [Lanoxin] 125 mcg PO DAILY tab 01/15/17 02/25/17 Rx Amino Acids/Protein Hydrolys 30 ml PO BID 02/16/17 02/25/17 History [Pro-Stat Supplement] Artificial Tears-Hypromellose 2 drops RIGHT EYE Q4H PRN 02/25/17 02/25/17 History [Artificial Tear Drops] Calazime 1 applic TOPICAL Q12H PRN 02/25/17 02/25/17 History Clotrimazole/Betamethasone Dip 1 applic TOPICAL BID PRN 02/25/17 02/25/17 History [Lotrisone Cream] Lactulose 10 gm PO BID PRN 02/25/17 02/25/17 History Metoprolol Tartrate [Lopressor] 25 mg PO Q8H 02/25/17 02/25/17 History Oxybutynin Xl [Ditropan XL] 5 mg PO BID 02/25/17 02/25/17 History Tobramycin 0.3% Ophth Soln [Tobrex 1 drop BOTH EYES Q4H 02/25/17 02/25/17 History 0.3% Ophth Soln] Acetaminophen-Codeine 300-30mg 1 tab PO Q8H PRN #30 03/01/17 Rx [Tylenol w/codeine #3] Baclofen [Lioresal] 5 mg PO Q6H PRN #20 tablet 03/01/17 Rx Citalopram Hydrobromide [CeleXA] 20 mg PO DAILY tab 03/01/17 Rx Hydrocortisone Cream 1 applic TOPICAL BID PRN dose 03/01/17 Rx [Hydrocortisone 1% Cream] Isosorbide Mononitrate ER [Imdur] 60 mg PO DAILY tab 03/01/17 Rx Nitrofurantoin Monohyd/M-Cryst 100 mg PO Q12HR #8 cap 03/01/17 Rx [Macrobid] QUEtiapine [SEROquel] 600 mg PO HS #45 03/01/17 Rx traMADol HCL [Ultram] 50 mg PO Q6HR PRN #20 tab 03/01/17 Rx Allergies Allergy/AdvReac Type Severity Reaction Status Date / Time bee venom protein (honey bee) Allergy Anaphylaxis Verified 02/25/17 07:06 lorazepam [From Ativan] Allergy Unknown Verified 02/25/17 07:06 Physical Examination - Vital Signs Vital Signs: Vital Signs Temp Pulse Pulse Resp BP BP Pulse Ox 03/02/17 20:07 72 03/02/17 20:00 98.6 F 74 14 97 03/02/17 19:58 72 03/02/17 19:00 71 12 141/76 98 03/02/17 18:40 70 15 141/76 98 03/02/17 18:30 70 13 141/76 98 03/02/17 18:20 66 10 L 141/76 98 03/02/17 18:10 67 13 141/76 98 03/02/17 18:00 65 20 141/76 99 03/02/17 17:50 68 21 141/76 96 03/02/17 17:40 71 20 108/65 100 03/02/17 17:30 66 14 108/65 98 03/02/17 17:20 69 50 H 108/65 99 03/02/17 17:10 66 29 H 98/54 98 03/02/17 17:00 83 18 98/54 98 03/02/17 16:50 64 16 66/31 95 03/02/17 16:40 66 16 97/43 96 03/02/17 16:30 71 15 97/43 96 03/02/17 16:20 76 18 97/43 98 03/02/17 16:10 80 15 116/63 97 03/02/17 16:00 82 97 15 116/63 97 03/02/17 15:50 85 19 116/63 98 03/02/17 15:40 78 22 117/58 97 03/02/17 15:30 81 24 117/58 97 03/02/17 15:20 88 20 117/58 97 03/02/17 15:10 82 16 107/56 96 03/02/17 15:00 97.8 F 81 97 15 107/56 117/58 96 03/02/17 14:50 80 11 L 107/56 95 03/02/17 14:40 77 32 H 116/69 96 03/02/17 14:30 88 17 116/69 97 03/02/17 14:20 90 11 L 116/69 93 L 03/02/17 14:10 23 125/67 98 03/02/17 14:00 80 17 125/67 98 03/02/17 13:50 78 18 125/67 97 03/02/17 13:40 78 14 111/81 99 03/02/17 13:30 106 H 22 111/81 97 03/02/17 13:20 110 H 16 111/81 98 03/02/17 13:10 77 13 129/58 98 03/02/17 13:00 98.0 F 75 20 129/58 97 03/02/17 12:50 85 15 129/58 96 03/02/17 12:40 83 11 L 119/58 98 03/02/17 12:30 84 17 119/58 97 03/02/17 12:20 99.7 F H 85 11 L 119/58 97 03/02/17 12:10 82 03/02/17 11:48 82 18 103/45 95 03/02/17 11:30 16 116/85 94 L 03/02/17 11:11 90 16 119/66 94 L 03/02/17 10:28 98.2 F 84 16 119/66 94 L 03/02/17 07:40 62 03/02/17 07:27 68 95 03/02/17 07:00 96.9 F L 63 18 102/60 100 03/01/17 22:46 97.9 F 64 16 121/69 97 Intake and Output 03/02/17 03/02/17 03/02/17 06:59 14:59 22:59 Intake Total 720 720 Output Total 600 100 655 Balance -600 620 65 Intake: Oral 720 720 Output: Urine 600 100 655 Other: Voiding Method Indwelling Catheter Indwelling Catheter Indwelling Catheter # Voids 1 # Bowel Movements 1 Weight 99.5 kg 99.5 kg Patient Weight 03/03/17 06:59 Weight 99.5 kg - Constitutional General appearance: average body habitus, cooperative - EENT EENT: PERRL, mucous membranes moist - Respiratory Respiratory: lungs clear, normal breath sounds - Cardiovascular Cardiovascular: regular rate, normal S1, normal S2 Extremities: no peripheral edema bilaterally - Gastrointestinal Gastrointestinal: normoactive bowel sounds - Integumentary Integumentary: normal - Neurologic Cranial nerve examination: PERRL, EOMI, VFF, V1/V2/V3 grossly intact, face symmetric, intact gag reflex, intact corneal reflex, normal palatal elevation Speech examination: intact Sensorimotor examination: intact Motor examination - right side: 4/5: biceps, triceps, wrist flexion, wrist extension, home appliance technician, hip flexors, knee extensors, dorsiflexion, toe extension (EHL) , plantarflexion Motor examination - left side: 4/5: biceps, triceps, wrist flexion, wrist extension, home appliance technician, hip flexors, knee extensors, dorsiflexion, toe extension (EHL) , plantarflexion Detailed sensory examination: intact Reflex and gait examination: intact Reflexes: 1+: ankle, bicep, knee, tricep - Musculoskeletal Musculoskeletal: no pain - Psychiatric Psychiatric: mood/affect appropriate, cooperative Results - Laboratory Findings CBC and BMP: 03/03/17 05:14 03/03/17 05:14 Abnormal Lab Findings: Abnormal Labs 02/24/17 02/25/17 02/25/17 19:45 16:27 16:27 RBC 3.08 L Hgb 9.4 L Hct 30.0 L MCV MCHC Chloride Glucose POC Glucose (mg/dL) AST 54 H Total Creatine Kinase Total Protein 5.7 L Albumin 2.6 L Triglycerides Urine Appearance Cloudy H Urine Protein 2+ H Urine Blood Large H Urine Nitrite Positive H Ur Leukocyte Esterase Large H Urine RBC >182 H Urine WBC 117 H Urine WBC Clumps Few H Urine Bacteria Rare H Urine Mucus Rare H Urine Yeast (Budding) Rare H 02/25/17 03/01/17 03/01/17 22:15 09:07 09:07 RBC 3.34 L Hgb 10.2 L Hct 33.9 L MCV 101.4 H MCHC 30.1 L Chloride 112 H Glucose 119 H POC Glucose (mg/dL) AST Total Creatine Kinase 29 L Total Protein Albumin Triglycerides Urine Appearance Urine Protein Urine Blood Urine Nitrite Ur Leukocyte Esterase Urine RBC Urine WBC Urine WBC Clumps Urine Bacteria Urine Mucus Urine Yeast (Budding) 03/01/17 03/02/17 09:07 12:10 RBC Hgb Hct MCV MCHC Chloride Glucose POC Glucose (mg/dL) 122 H AST Total Creatine Kinase Total Protein Albumin Triglycerides 190 H Urine Appearance Urine Protein Urine Blood Urine Nitrite Ur Leukocyte Esterase Urine RBC Urine WBC Urine WBC Clumps Urine Bacteria Urine Mucus Urine Yeast (Budding) Assessment and Plan (1) TIA (transient ischemic attack) Status: Acute Code(s): G45.9 - TRANSIENT CEREBRAL ISCHEMIC ATTACK, UNSPECIFIED (2) Acute encephalopathy Status: Acute Code(s): G93.40 - ENCEPHALOPATHY, UNSPECIFIED (3) Schizoaffective disorder, bipolar type Status: Acute Code(s): F25.0 - SCHIZOAFFECTIVE DISORDER, BIPOLAR TYPE (4) Suicidal ideation Status: Acute Code(s): R45.851 - SUICIDAL IDEATIONS (5) Abscess of axilla, left Status: Acute Code(s): L02.412 - CUTANEOUS ABSCESS OF LEFT AXILLA Plan: This patient is a 61-year-old right-handed white female who was initially admitted to the ICU for treatment of recent and recurrent abscess. Patient had an episode this morning at 10:27 AM in which she showed focal weakness and sudden change in her neurological status. A code stroke was initiated and she was evaluated by the neuro public health microbiologist Dr. Hernández. Her initial NIH stroke scale was 13 and repeat evaluation revealed her NIH to significantly improve and was noted to be 6.0. Patient underwent acute computed tomography scan of the brain and CTA angiogram of the head and neck. Both of these studies were negative. She was not deemed to be a candidate for TPA or thrombectomy. She was subsequently transferred out of the ICU and is now one selective care. Patient seems to be back to baseline level of function. She does have a underlying history of schizoaffective disorder bipolar type and is being followed by psychiatry. She is waiting possible transfer into the inpatient psychiatric unit she did have mention of possible suicidal ideation at the detention. The patient neurologically at this time is stable. As noted her neuroimaging studies were all negative. She was knocked deemed to be a candidate for TPA. Her clinical history still suggest possibility of TIA. We have recommended a complete stroke evaluation. MRI of the brain has been recommended. At this time the patient is near baseline level of function. She shows no focal weakness. She does have history of underlying tardive dyskinesia in the past. We will continue to follow her progress closely along with further input from psychiatry. Her overall prognosis at this time remains very guarded. Time with Patient: Greater than 30
[2017-03-03] MEDS: METOPROLOL TARTRATE 25 MG TAB PO SCH (06:47)
[2017-03-03] MEDS: PANTOPRAZOLE 40 MG TABLET PO SCH (06:47)
[2017-03-03] MEDS: BUDESONIDE 0.5 MG/2 ML NEBU INHALATION SCH (07:41)
[2017-03-03] MEDS: ALBUTEROL NEBULIZED 2.5 MG/3 ML INHALATION PRN (07:41)
[2017-03-03] MEDS: DIGOXIN 125 MCG TAB PO SCH (10:21)
[2017-03-03] MEDS: APIXABAN 5 MG TAB PO SCH (10:21)
[2017-03-03] MEDS: BACLOFEN 10 MG TAB PO SCH ×2 (10:21→12:54)
[2017-03-03] MEDS: GABAPENTIN 300 MG CAP PO SCH (10:21)
[2017-03-03] MEDS: ASPIRIN 81 MG PO SCH (10:21)
[2017-03-03] MEDS: CITALOPRAM HYDROBROMIDE 20 MG TAB PO SCH (10:21)
[2017-03-03] MEDS: OXYBUTYNIN XL 5 MG TAB.ER.24 PO SCH (10:22)
[2017-03-03] MEDS: ISOSORBIDE MONONITRATE ER 60 MG TAB.ER.24H PO SCH (10:22)
[2017-03-03] MEDS: VIT A,C & E-LUTEIN-MINERALS 1 EACH TAB PO SCH (10:22)
[2017-03-03] MEDS: NITROFURANTOIN MONOHYD/M-CRYST 100 MG CAP PO SCH (10:22)
--- NOTE | 2017-03-03 13:06 | CT ---
EXAMINATION TYPE: CT brain wo con DATE OF EXAM: 03/03/2017 HISTORY: Follow up CT DLP: 1272 mGycm. Automated Exposure Control for Dose Reduction was Utilized. TECHNIQUE: CT scan of the head is performed without contrast. COMPARISON: CT brain dated from yesterday. FINDINGS: There is no acute intracranial hemorrhage or midline shift identified. There is diffuse v entricular and sulcal prominence consistent with diffuse age-related cerebral atrophy. Hyperostosis f rontalis is present. The globes are intact and the visualized sinuses are clear. Localizer shows pa rtial visualization of surgical change in the cervical spine with metallic disc material and anterior fusion plate. IMPRESSION: No acute intracranial hemorrhage or midline shift. There is mild diffuse age-related ce rebral atrophy and minimal chronic small vessel ischemic change noted. No significant change from pr ior.
--- NOTE | 2017-03-03 14:47 | DS ---
DISCHARGE SUMMARY DATE OF ADMISSION: 02/27/17. DATE OF DISCHARGE: 03/03/17. FINAL DIAGNOSIS: 1. Schizoaffective disorder, bipolar type with acute suicidal ideation. Present on admission. 2. Acute stroke probably in the right MCA territory in a right-handed patient likely ischemic in nature. 3. Acute urinary tract infection with cultures positive for enterococcus . 4. Chronic left axilla wound, had a wound VAC in place. Now discontinued. 5. Coronary artery disease with nonobstructive lesion, LAD 50%. 6. Gastroesophageal reflux disease. 7. Essential hypertension. 8. Hyperlipidemia. 9. Anxiety, not otherwise specified. 10.Peripheral neuropathy idiopathic. 11.Hiatal hernia. 12.Medical debility. HOSPITAL COURSE: This patient is a resident of [facility], came in with suicidal ideation. Wanted to tie her oxygen cord around her neck. The patient has a diagnosis of schizoaffective disorder, seen by Dr. Centeno from psychiatry. Patient doing much better now. The patient in the meantime clinically had a stroke with weakness on the left side of the face which actually had improved. The patient did have a CT scan of the brain and CT angio of the brain that came back to be unremarkable. The patient is quite back to her baseline. The wound VAC has been discontinued by Dr. Elmore. The patient has a UTI as above, completing a course of Macrobid for the same. On examination lungs decreased breath sounds. CARDIOVASCULAR: First and second are normal. Patient is answering questions. The patient at baseline does speak slowly. Dr. Jade did see the patient for some chest pain. He did add extended release Imdur. CONSULTATIONS: Dr. Elmore, infectious disease. Dr. Ramsey from Neurology and Dr. Centeno from Psychiatry and Dr. Sammy Jade from cardiology. DISCHARGE MEDICATIONS: 1. Vitamin D3 2000 units p.o. q.h.s. 2. Vitamin B12 1000 mcg p.o. q.48 hours. 3. Neurontin 300 mg p.o. b.i.d. 4. Nitrostat 0.4 sublingual q.5 p.r.n. 5. Tums 500 mg p.o. t.i.d. p.r.n. 6. Pulmicort 0.5 inhalation b.i.d. 7. Ventolin 2.5 q.6h p.r.n. 8. Lipitor 10 mg q.h.s. 9. Calamine lotion topical q.6h p.r.n. 10.Iron 325 p.o. daily. 11.Omeprazole 20 mg a.c. b.i.d. 12.Zofran 4 mg q.8h p.r.n. 13. one capsule p.o. daily. 14.Eliquis 5 mg p.o. b.i.d. 15.Digoxin 125 mcg p.o. daily. 16.ProStat supplement 30 mL p.o. b.i.d. 17.Artificial Tears 2 drops right eye q.4h p.r.n. 18.Lotrisone cream topical b.i.d. p.r.n. 19.Lactulose 10 grams p.o. b.i.d. p.r.n. 20.Lopressor 25 mg p.o. q.8. 21.Ditropan XL 5 mg p.o. b.i.d. 22.Tobrex 0.3% one drop to both eyes q.4. 23.Tylenol number 3 one tab q.8h p.r.n. 24.Baclofen 5 mg p.o. q.8h p.r.n. 25.Celexa 20 mg p.o. daily. 26.Hydrocortisone 1% topical b.i.d. p.r.n. 27.Imdur ER 60 mg p.o. daily. 28.Macrobid 100 mg p.o. q.12 8 capsules. 29.Seroquel 600 mg p.o. q.h.s. 30.Ultram 50 mg q.6h hours p.r.n. DISPOSITION: [facility]. Follow with Dr. Chew at [facility], Dr. Elmore in 10 days. Visiting physician, Dr. Gomes after discharge. Dr. Sammy Jade in 2 weeks. Discharge planning more than 35 minutes. MMODL / IJN: [id number] /
[2017-03-03 17:16] VITALS: BP 141/69; PULSE 64; RESP 16; TEMP 97.1
--- NOTE | 2017-03-03 20:04 | P.PN ---
Subjective Progress Note Date: 03/03/17 Principal diagnosis: abscess left axilla 61-year-old female known to the infectious disease service from her recent hospitalizations is brought back to hospital. Having ongoing difficulties with her psychiatric illness. She does have difficulties medically with a significant abscess and ulcer to the left axillary area. This was incised and drained several weeks ago. Negative pressure therapy is been utilized. She's been following the wound healing center with Dr. sade vides. Is also been evaluated by the ID service there. Because of her needs to be transferred to an inpatient psychiatric facility further any nausea was requested regarding her wound care. The patient herself is quite desponded. She is arousable but a poor historian at this time. Further information does come from the chart. The patient is feeling somewhat better today. Wound VAC was removed and with this she is having much less pain. Her affect continues to wax and wane. she had a change of her neurological status. An A team was called. She was moved to intensive care unit. Nursing staff relates that she has now much improved. She was seen by Neuro and not thought to have new CVA but possible TIA Objective - Vital Signs Vital signs: Vital Signs Temp 97.1 F L 03/03/17 17:15 Pulse 64 03/03/17 17:15 Resp 16 03/03/17 17:15 BP 141/69 03/03/17 17:15 Pulse Ox 93 L 03/03/17 08:00 Intake & Output 03/03/17 03/03/17 03/04/17 06:59 18:59 06:59 Intake Total 400 Output Total 1650 Balance -1650 400 Weight 99.5 kg Intake: Oral 400 Output: Urine 1650 Other: Voiding Method Indwelling Catheter Indwelling Catheter # Voids 1 - Exam Gen: This is a 61-year-old morbidly obese female. She is in bed and appears to be comfortable. HEENT: Head is atraumatic, normocephalic. Pupils equal, round. Sclerae is anicteric. Conjunctiva pale. Mucous membranes of the mouth are very dry. NECK: Supple. No JVD. No lymphadenopathy. No thyromegaly. LUNGS: Diminished to the bilateral bases. No wheezing.. No intercostal retractions. HEART: Irregular rate and rhythm. No murmur. ABDOMEN: Morbidly obese. Soft. Bowel sounds are present. No masses. Tenderness to the bilateral lower quadrants. EXTREMITIES: Prior PICC line site is noted without erythema. The patient self removed the line. Left axilla is now packed with the silver alginate rope which is much less uncomfortable, please refer to the nursing photography and measurements for the left axillary ulceration. Much improved from the last evaluation. there is the lack of significant drainage at this time. NEUROLOGICAL: Patient is arousable is more interactive and conversation today. She is very pleased that the wound VAC has been removed because she is having so much less pain. - Labs CBC & Chem 7: 03/03/17 05:14 03/03/17 05:14 Labs: Abnormal Lab Results - Last 24 Hours (Table) 03/03/17 03/03/17 Range/Units 05:14 05:14 RBC 3.37 L (3.80-5.40) m/uL Hgb 10.5 L (11.4-16.0) gm/dL Hct 33.9 L (34.0-46.0) % MCV 100.5 H (80.0-100.0) fL Chloride 108 H (98-107) mmol/L Laboratory Results WBC 4.4 k/uL (3.8-10.6) 03/03/17 05:14 RBC 3.37 m/uL (3.80-5.40) L 03/03/17 05:14 Hgb 10.5 gm/dL (11.4-16.0) L 03/03/17 05:14 Hct 33.9 % (34.0-46.0) L 03/03/17 05:14 MCV 100.5 fL (80.0-100.0) H 03/03/17 05:14 MCH 31.1 pg (25.0-35.0) 03/03/17 05:14 MCHC 31.0 g/dL (31.0-37.0) 03/03/17 05:14 RDW 14.7 % (11.5-15.5) 03/03/17 05:14 Plt Count 281 k/uL (150-450) 03/03/17 05:14 Neutrophils % 45 % 03/01/17 09:07 Neutrophils % (Manual) 44 % 03/03/17 05:14 Lymphocytes % 42 % 03/01/17 09:07 Lymphocytes % (Manual) 44 % 03/03/17 05:14 Monocytes % 4 % 03/01/17 09:07 Monocytes % (Manual) 4 % 03/03/17 05:14 Eosinophils % 6 % 03/01/17 09:07 Eosinophils % (Manual) 8 % 03/03/17 05:14 Basophils % 1 % 03/01/17 09:07 Neutrophils # 1.7 k/uL (1.3-7.7) 03/01/17 09:07 Neutrophils # (Manual) 1.94 k/uL (1.3-7.7) 03/03/17 05:14 Lymphocytes # 1.6 k/uL (1.0-4.8) 03/01/17 09:07 Lymphocytes # (Manual) 1.94 k/uL (1.0-4.8) 03/03/17 05:14 Monocytes # 0.2 k/uL (0-1.0) 03/01/17 09:07 Monocytes # (Manual) 0.18 k/uL (0-1.0) 03/03/17 05:14 Eosinophils # 0.2 k/uL (0-0.7) 03/01/17 09:07 Eosinophils # (Manual) 0.35 k/uL (0-0.7) 03/03/17 05:14 Basophils # 0.0 k/uL (0-0.2) 03/01/17 09:07 Nucleated RBCs 0 /100 WBC (0-0) 03/03/17 05:14 Manual Slide Review Performed 03/03/17 05:14 Hypochromasia Slight 03/03/17 05:14 Macrocytosis Slight 03/03/17 05:14 Sodium 143 mmol/L (137-145) 03/03/17 05:14 Potassium 4.1 mmol/L (3.5-5.1) 03/03/17 05:14 Chloride 108 mmol/L (98-107) H 03/03/17 05:14 Carbon Dioxide 26 mmol/L (22-30) 03/03/17 05:14 Anion Gap 9 mmol/L 03/03/17 05:14 BUN 9 mg/dL (7-17) 03/03/17 05:14 Creatinine 0.76 mg/dL (0.52-1.04) 03/03/17 05:14 Est GFR (MDRD) Af Amer >60 (>60 ml/min/1.73 sqM) 03/03/17 05:14 Est GFR (MDRD) Non-Af >60 (>60 ml/min/1.73 sqM) 03/03/17 05:14 Glucose 94 mg/dL (74-99) 03/03/17 05:14 POC Glucose (mg/dL) 122 mg/dL (75-99) H 03/02/17 12:10 POC Glu Casing Worker ID Neema John 03/02/17 12:10 Calcium 9.4 mg/dL (8.4-10.2) 03/03/17 05:14 Total Bilirubin 0.2 mg/dL (0.2-1.3) 02/25/17 16:27 AST 54 U/L (14-36) H 02/25/17 16:27 ALT 47 U/L (9-52) 02/25/17 16:27 Alkaline Phosphatase 120 U/L (38-126) 02/25/17 16:27 Total Creatine Kinase 29 U/L (30-135) L 02/25/17 22:15 CK-MB (CK-2) 0.4 ng/mL (0.0-2.4) 02/25/17 22:15 CK-MB (CK-2) Rel Index 1.4 02/25/17 22:15 Troponin I <0.012 ng/mL (0.000-0.034) 02/26/17 09:06 Total Protein 5.7 g/dL (6.3-8.2) L 02/25/17 16:27 Albumin 2.6 g/dL (3.5-5.0) L 02/25/17 16:27 Triglycerides 190 mg/dL (<150) H 03/01/17 09:07 Cholesterol 130 mg/dL (<200) 03/01/17 09:07 LDL Cholesterol, Calc 52 mg/dL (0-99) 03/01/17 09:07 HDL Cholesterol 40 mg/dL (40-60) 03/01/17 09:07 TSH 3.590 mIU/L (0.465-4.680) 02/25/17 16:27 Urine Color Yellow 02/24/17 19:45 Urine Appearance Cloudy (Clear) H 02/24/17 19:45 Urine pH 6.5 (5.0-8.0) 02/24/17 19:45 Ur Specific [place] 1.014 (1.001-1.035) 02/24/17 19:45 Urine Protein 2+ (Negative) H 02/24/17 19:45 Urine Glucose (UA) Negative (Negative) 02/24/17 19:45 Urine Ketones Negative (Negative) 02/24/17 19:45 Urine Blood Large (Negative) H 02/24/17 19:45 Urine Nitrite Positive (Negative) H 02/24/17 19:45 Urine Bilirubin Negative (Negative) 02/24/17 19:45 Urine Urobilinogen <2.0 mg/dL (<2.0) 02/24/17 19:45 Ur Leukocyte Esterase Large (Negative) H 02/24/17 19:45 Urine RBC >182 /hpf (0-5) H 02/24/17 19:45 Urine WBC 117 /hpf (0-5) H 02/24/17 19:45 Urine WBC Clumps Few /hpf (None) H 02/24/17 19:45 Urine Bacteria Rare /hpf (None) H 02/24/17 19:45 Urine Mucus Rare /hpf (None) H 02/24/17 19:45 Urine Yeast (Budding) Rare /hpf (None) H 02/24/17 19:45 Microbiology 02/25/17 05:22 Urine,Voided Urine Culture - Final Enterococcus gallinarum Ingrid albicans - Imaging and Cardiology CT Scan - head: report reviewed (no new CVA) Assessment and Plan (1) Abscess of axilla, left Narrative/Plan: 61-year-old female well-known to the infectious disease service presents to Hospital for further evaluation of the significant ulceration to her left axillary area. It however. The patient was brought to hospital because of worsening psychiatric issues. She is noted to be in need of placement in a radical psychiatric facility. There is great concerns because the negative pressure therapy system and its presence inhibiting her ability to be cared for other facilities. The ulceration is reviewed. At one point in time was more than 7 cm in depth. Now it is approximately 1 cm in depth. This is a marked improvement. The negative pressure therapy system was discontinued and ulcer packed with Aquacel silver rope to back and in the area utilize gauze to secure it. This can be changed Wednesday and Fridays. Nurses are instructed. There is evidence of urinary tract infection enterococcus is likely present. The Bactrim will be ineffective and Macrobid was requested. A 18 was called with code stroke with concerns to the change of her mental status. Since computed tomography scan is normal. Neurological follow-up is in progress. She is now improved this afternoon. We'll move out of the ICU soon. She appears ready for transfer to the psychiatric facility with local wound care as noted with the Aquacel silver rope tot he axilla and 7 days of Macrobid for her urinary tract infection. Status: Acute (2) UTI (urinary tract infection) Status: Acute
--- NOTE | 2017-03-03 23:20 | EEG ---
ELECTROENCEPHALOGRAM REPORT DATE OF EE03/03/2017. REFERRING PHYSICIAN: Dr. Elizabeth. INTERPRETING PHYSICIAN: Dr. Hanane Ramsey MD. INDICATION FOR EXAMINATION: This patient is a 61-year-old female with a history of tardive dyskinesia and altered mental status. The patient recently treated for acute stroke-like symptoms. AGE: 61. EEG FINDINGS: A routine 21-channel awake digital EEG recording was accomplished utilizing the 10-20 international system with bipolar and referential montages. The background activity in the most alert resting state consists of a low to medium amplitude, poorly developed, poorly sustained 5 Hz activity over the posterior head regions. This posterior rhythm attenuates to eye opening. There is a small amount of low amplitude 18-20 Hz beta activity seen maximally over the anterior head regions. Muscle and movement artifact was observed on a few occasions during the tracing. Hyperventilation was not performed. Photic stimulation at flash frequencies of 2-30 Hz produced a minimal occipital driving response. No epileptiform discharges were seen. IMPRESSION: This EEG gives evidence of a severe widespread diffuse disturbance in cerebral function. The EEG failed to reveal any focal, lateralized or epileptiform abnormalities. Clinical correlation is recommended. MMODL / IJN: [id number] /
== END 2017-03-03 18:32 | DRG 689 ==
LOC: EC 18:56 → 4MS4W 02-25 18:32 → OBSVTOIN 02-27 09:07 → 6ICU 03-02 11:58 → 6SEL 03-02 21:02
PROVIDERS: ADMIT Hospitalist; ATTEND Hospitalist
DX: N39.0 Urinary tract infection, site not specified (principal); I63.9 Cerebral infarction, unspecified; G93.40 Encephalopathy, unspecified; R45.851 Suicidal ideations; I48.0 Paroxysmal atrial fibrillation; I10 Essential (primary) hypertension; G24.01 Drug induced subacute dyskinesia; L02.412 Cutaneous abscess of left axilla; F32.9 Major depressive disorder, single episode, unspecified; F25.0 Schizoaffective disorder, bipolar type; G60.9 Hereditary and idiopathic neuropathy, unspecified; I25.10 Atherosclerotic heart disease of native coronary artery without angina pectoris; K21.9 Gastro-esophageal reflux disease without esophagitis; E78.5 Hyperlipidemia, unspecified; F41.9 Anxiety disorder, unspecified; K44.9 Diaphragmatic hernia without obstruction or gangrene; R53.81 Other malaise; J45.909 Unspecified asthma, uncomplicated; R29.706 NIHSS score 6; H35.30 Unspecified macular degeneration; B95.2 Enterococcus as the cause of diseases classified elsewhere; R33.9 Retention of urine, unspecified; Z91.030 Bee allergy status; Z88.8 Allergy status to other drugs, medicaments and biological substances; Z79.01 Long term (current) use of anticoagulants; Z79.899 Other long term (current) drug therapy; Z90.49 Acquired absence of other specified parts of digestive tract; Z98.41 Cataract extraction status, right eye; Z98.42 Cataract extraction status, left eye; Z86.69 Personal history of other diseases of the nervous system and sense organs; Z86.19 Personal history of other infectious and parasitic diseases; Z90.710 Acquired absence of both cervix and uterus; Z82.49 Family history of ischemic heart disease and other diseases of the circulatory system; Z80.8 Family history of malignant neoplasm of other organs or systems; Z91.5 Personal history of self-harm; Z80.0 Family history of malignant neoplasm of digestive organs; Z86.73 Personal history of transient ischemic attack (TIA), and cerebral infarction without residual deficits
CPT/HCPCS: 36415; 70450; 70496; 70498; 80048; 80053; 80061; 81001; 82075; 82550; 82553; 84443; 84484; 85025; 87077; 87086; 87186; 93005; 94640; 94760; 95819; 99285

== ENCOUNTER 2018-02-13 01:03 | Emergency (ER) | payer MEDICARE, OTHER ==
[2018-02-13 01:19] VITALS: TEMP 97.5
[2018-02-13] MEDS ORDERED: MORPHINE SULFATE 4 MG/ML SYRINGE IV STA (01:59)
[2018-02-13] MEDS ORDERED: ONDANSETRON 4 MG/2 ML VIAL IM STA (02:00)
[2018-02-13 02:10] LABS: Albumin 3.5 g/dL (3.5-5.0); Basophils % (A) 0 %; Calcium 8.8 mg/dL (8.4-10.2); Eosinophils # (A) 0.2 k/uL (0-0.7); Eosinophils % (A) 2 %; HCT 36.6 % (34.0-46.0); HGB 12.1 gm/dL (11.4-16.0); Lymphocytes # (A) 2.8 k/uL (1.0-4.8); Lymphocytes % (A) 35 %; MCH 30.7 pg (25.0-35.0); MCV 92.8 fL (80.0-100.0); Magnesium 1.6 mg/dL (1.6-2.3); Mean Platelet Volume 7.2; Monocytes # (A) 0.3 k/uL (0-1.0); Monocytes % (A) 3 %; Neutrophils # (A) 4.7 k/uL (1.3-7.7); Neutrophils % (A) 58 %; Platelet Count 245 k/uL (150-450); Potassium 3.6 mmol/L (3.5-5.1); RBC 3.94 m/uL (3.80-5.40); RDW 12.7 % (11.5-15.5); Total Bilirubin 0.2 mg/dL (0.2-1.3); Total Protein 6.3 g/dL (6.3-8.2); WBC 8.2 k/uL (3.8-10.6)
[2018-02-13] MEDS ORDERED: ONDANSETRON 4 MG/2 ML VIAL IVP STA (02:10)
[2018-02-13 02:20] LABS: D-Dimer 0.27 mg/L FEU (<0.60); Partial Thromboplastin Time 24.3 sec (22.0-30.0); Prothrombin Time 10.1 sec (9.0-12.0)
--- NOTE | 2018-02-13 02:23 | XR ---
EXAMINATION TYPE: XR chest 2V DATE OF EXAM: 02/13/2018 COMPARISON: 01/18/2017 HISTORY: Chest pain TECHNIQUE: Frontal and lateral views of the chest are obtained. FINDINGS: Heart and mediastinum are normal. Lungs are clear. Costophrenic angles are clear. There is no heart failure. There are chest leads. IMPRESSION: Normal chest. There is clearing of left lower lobe pneumonia compared to old exam.
[2018-02-13 02:26] LABS: Creatine Kinase 38 U/L (30-135)
[2018-02-13 02:37] LABS: Creatine Kinase MB 0.4 ng/mL (0.0-2.4); Troponin I <0.012 ng/mL (0.000-0.034)
--- NOTE | 2018-02-13 03:08 | ED ---
Chest Pain HPI - General Chief Complaint: Chest Pain Stated Complaint: Chest Pain Time Seen by Provider: 02/13/18 01:07 Source: patient Mode of arrival: EMS Limitations: no limitations - History of Present Illness Initial Comments: This patient is a 62-year-old woman who presents to be evaluated for right upper chest pain. It started approximately 10:30 PM tonight while she was sitting. The patient states that it is an aching. The pains moderate in intensity. It does get worse with movement. She has not noted any relieving factors. The pain does seem to radiate to her right upper arm. She has not noted any other related symptoms. They did try to give her some nitroglycerin at the long-term care facility and it did not really affect the pain. MD Complaint: chest pain Onset/Timin -: hour(s) Onset: during rest Pain Location: right chest Pain Radiation: RUE Severity: moderate Quality: aching Consistency: constant Improves With: nothing Worsens With: movement Treatments Prior to Arrival: nitroglycerin - Related Data Home Medications Medication Instructions Recorded Confirmed Cholecalciferol [Vitamin D3] 2,000 unit PO HS 08/06/14 02/13/18 Cyanocobalamin [Vitamin B-12] 1,000 mcg PO Q48H 08/06/14 02/13/18 Gabapentin [Neurontin] 300 mg PO BID@0900,1700 07/21/16 02/13/18 Nitroglycerin Sl Tabs [Nitrostat] 0.4 mg SUBLINGUAL Q5M PRN 07/22/16 02/13/18 Calcium Carbonate [Tums] 500 mg PO TID PRN 07/27/16 02/13/18 Albuterol Nebulized [Ventolin 2.5 mg INHALATION RT-Q6H PRN 12/30/16 02/13/18 Nebulized] Atorvastatin [Lipitor] 10 mg PO HS 12/30/16 02/13/18 Calamine/Zinc Oxide Lotion 1 applic TOPICAL Q6H PRN 12/30/16 02/13/18 [Calamine Lotion] Ferrous Sulfate [Iron (65 MG 325 mg PO DAILY@1700 12/30/16 02/13/18 Elemental)] Omeprazole 20 mg PO AC-BID 12/30/16 02/13/18 Ondansetron [Zofran] 4 mg PO Q8HR PRN 12/30/16 02/13/18 Vit C/E/Zn/Coppr/Lutein/Zeaxan 1 cap PO DAILY 12/30/16 02/13/18 [Preservision Areds 2 Softgel] Amino Acids/Protein Hydrolys 30 ml PO BID 02/16/17 02/13/18 [Pro-Stat Supplement] Artificial Tears-Hypromellose 2 drops RIGHT EYE Q4H PRN 02/25/17 02/13/18 [Artificial Tear Drops] Calazime 1 applic TOPICAL Q12H PRN 02/25/17 02/13/18 Clotrimazole/Betamethasone Dip 1 applic TOPICAL BID PRN 02/25/17 02/13/18 [Lotrisone Cream] Lactulose 10 gm PO BID PRN 02/25/17 02/13/18 Metoprolol Tartrate [Lopressor] 25 mg PO Q8H 02/25/17 02/13/18 Oxybutynin Xl [Ditropan XL] 5 mg PO BID 02/25/17 02/13/18 Tobramycin 0.3% Ophth Soln [Tobrex 1 drop BOTH EYES Q4H 02/25/17 02/13/18 0.3% Ophth Soln] Ferrous Sulfate [Feosol] 325 mg PO DAILY 03/09/17 02/13/18 Vit C/E/Zn/Coppr/Lutein/Zeaxan 1 each PO DAILY 03/09/17 02/13/18 [Preservision Areds 2 Softgel] Previous Rx's Medication Instructions Recorded Budesonide [Pulmicort] 0.5 mg INHALATION RT-BID neb 12/21/16 Apixaban [Eliquis] 5 mg PO BID tab 01/15/17 Digoxin [Lanoxin] 125 mcg PO DAILY tab 01/15/17 Acetaminophen-Codeine 300-30mg 1 tab PO Q8H PRN #30 03/01/17 [Tylenol w/codeine #3] Baclofen [Lioresal] 5 mg PO Q6H PRN #20 tablet 03/01/17 Citalopram Hydrobromide [CeleXA] 20 mg PO DAILY tab 03/01/17 Hydrocortisone Cream 1 applic TOPICAL BID PRN dose 03/01/17 [Hydrocortisone 1% Cream] Isosorbide Mononitrate ER [Imdur] 60 mg PO DAILY tab 03/01/17 Nitrofurantoin Monohyd/M-Cryst 100 mg PO Q12HR #8 cap 03/01/17 [Macrobid] QUEtiapine [SEROquel] 600 mg PO HS #45 03/01/17 traMADol HCL [Ultram] 50 mg PO Q6HR PRN #20 tab 03/01/17 Allergies Allergy/AdvReac Type Severity Reaction Status Date / Time bee venom protein (honey bee) Allergy Anaphylaxis Verified 03/09/17 13:06 lorazepam [From Ativan] Allergy Unknown Verified 03/09/17 13:06 Review of Systems ROS Statement: Those systems with pertinent positive or pertinent negative responses have been documented in the HPI. ROS Other: All systems not noted in ROS Statement are negative. Constitutional: Denies: fever, weakness ENT: Denies: throat pain Respiratory: Denies: cough, dyspnea Cardiovascular: Reports: as per HPI, chest pain. Denies: palpitations, orthopnea, edema, syncope Gastrointestinal: Denies: abdominal pain, nausea, vomiting Genitourinary: Denies: dysuria, hematuria Musculoskeletal: Denies: back pain Skin: Denies: rash Neurological: Denies: headache, weakness, numbness, paresthesias EKG Findings - EKG Results: EKG: interpreted by CATARINO, sinus rhythm (Rate 73 bpm), normal axis, normal QRS - Blocks, [place], Hypertrophy, ST Abn: Repolarization changes or abnormalities: nonspecific abnormality, ST segment, and/or T wave Past Medical History Past Medical History: Heart Failure, COPD, Diabetes Mellitus Additional Past Medical History / Comment(s): Bronchial asthma, obesity, chronic lower extremity edema, L axillae cellulitis/abscess-cultures grew peptostreptococcus and MSSA-had I&D . Other hx: shingles/staph, R eye macular degeneration, TIA, hiatal hernia, uterine cancer with hysterectomy, tardive dyskinesia, peripheral neuropathy cause unknown, migraines, sinus problems has coronary artery disease with 50% lesion of the LAD, paroxysmal atrial fibrillation, hypertension, acid reflux, schizophrenic disorder, anxiety, peripheral neuropathy, wound vac, PICC line (removed), retention w/ chronic Bell. History of Any Multi-Drug Resistant Organisms: None Reported Past Surgical History: Adenoidectomy, Back Surgery, Cholecystectomy, Ear Surgery , Heart Catheterization, Hysterectomy, Tonsillectomy Additional Past Surgical History / Comment(s): I & D L axillae, L eye surgery for lazy eye, bilateral cataract removal, bilateral myringotomy/tubes, colonoscopy, cardiac cath on 07/24/2016 with moderate stenosis of LAD noted - no stenting at that time recommend medical management and return for angioplasty if sx persist Past Anesthesia/Blood Transfusion Reactions: No Reported Reaction Past Psychological History: Anxiety, Depression, Schizoaffective Disorder Smoking Status: Never smoker Past Alcohol Use History: None Reported Past Drug Use History: None Reported - Past Family History Mother Family Medical History: Myocardial Infarction ([place]) Additional Family Medical History / Comment(s): Mother at 72 yrs. Father Family Medical History: Cancer Additional Family Medical History / Comment(s): Throat cancer; father at 72 yrs. Brother(s) Family Medical History: Cancer Additional Family Medical History / Comment(s): Liver cancer General Exam Limitations: no limitations General appearance: alert, in no apparent distress Head exam: Present: atraumatic, normocephalic Eye exam: Present: normal appearance ENT exam: Present: normal oropharynx Neck exam: Present: normal inspection, full ROM. Absent: tenderness Respiratory exam: Present: normal lung sounds bilaterally, chest wall tenderness (Palpation reproduce patient's symptoms). Absent: respiratory distress, wheezes, rales, rhonchi, stridor, accessory muscle use, decreased breath sounds, prolonged expiratory Cardiovascular Exam: Present: regular rate, normal rhythm, normal heart sounds. Absent: systolic murmur, diastolic murmur, rubs, gallop GI/Abdominal exam: Present: soft. Absent: distended, tenderness, guarding, rebound, rigid, mass Extremities exam: Present: normal inspection, normal capillary refill. Absent: pedal edema, calf tenderness Back exam: Present: normal inspection. Absent: CVA tenderness (R), CVA tenderness (L) Neurological exam: Present: alert Skin exam: Present: warm, dry, intact, normal color. Absent: rash Course Vital Signs 02/13/18 02/13/18 02/13/18 01:06 02:12 03:07 Temperature 97.5 F L Pulse Rate 74 72 70 Respiratory 20 20 20 Rate Blood Pressure 145/78 130/80 119/76 O2 Sat by Pulse 96 95 94 L Oximetry 02/13/18 04:07 Temperature Pulse Rate 68 Respiratory 18 Rate Blood Pressure 151/85 O2 Sat by Pulse 99 Oximetry Disposition Clinical Impression: Chest wall pain Disposition: HOME SELF-CARE Condition: Good Instructions: Chest Pain (ED) Is patient prescribed a controlled substance at d/c from ED?: No Referrals: Loki Gomes MD [Primary Care Provider] - 1-2 days
[2018-02-13 04:51] VITALS: RESP 18
[2018-02-13 05:47] VITALS: BP 153/90; PULSE 66
== END 2018-02-13 06:00 | disposition home or self-care (01) ==
LOC: EC 01:03
DX: R07.89 Other chest pain (principal); I50.9 Heart failure, unspecified; I11.0 Hypertensive heart disease with heart failure; J44.9 Chronic obstructive pulmonary disease, unspecified; E11.42 Type 2 diabetes mellitus with diabetic polyneuropathy; I48.91 Unspecified atrial fibrillation; K21.9 Gastro-esophageal reflux disease without esophagitis; F20.9 Schizophrenia, unspecified; F41.9 Anxiety disorder, unspecified; F32.9 Major depressive disorder, single episode, unspecified; Z79.899 Other long term (current) drug therapy; Z91.030 Bee allergy status; Z88.8 Allergy status to other drugs, medicaments and biological substances; Z95.818 Presence of other cardiac implants and grafts; Z53.8 Procedure and treatment not carried out for other reasons
CPT/HCPCS: 36415; 93005; 85379; 80053; 82150; 82550; 82553; 83690; 83735; 84484; 85025; 85610; 85730; 71046; 99285; 96374; 96375; J2270; J2405

== ENCOUNTER 2018-11-05 01:21 | Inpatient (IN) | payer MEDICARE, OTHER ==
[2018-11-05] MEDS ORDERED: ASPIRIN 81 MG PO STA (02:05)
[2018-11-05] MEDS ORDERED: SODIUM CHLORIDE 0.9% 1,000 ML IV STA (02:05)
[2018-11-05] MEDS ORDERED: ACETAMINOPHEN TAB 325 MG TAB PO STA (02:06)
[2018-11-05] MEDS ORDERED: methylPREDNISolone SOD SUCCI 125 MG/2 ML VIAL IV STA (02:15)
[2018-11-05] MEDS ORDERED: IPRATROPIUM-ALBUTEROL 3 ML NEB INHALATION STA ×2 (02:15→03:16)
[2018-11-05] MEDS ORDERED: cefTRIAXone IN SWFI 1,000 MG/10 ML SYRINGE IVP STA (02:15)
--- NOTE | 2018-11-05 02:39 | XR ---
EXAM: XR Chest, 2 Views CLINICAL HISTORY: ITS.REASON XR Reason: Chest Pain TECHNIQUE: Frontal and lateral views of the chest. COMPARISON: 02/13/2018. FINDINGS: Lungs: Small right pleural effusion with basilar atelectasis/infiltrate. Pleural space: No pneumothorax. Heart: Mildly prominent cardiomediastinal silhouette, may be related to technique or other etiology. Mediastinum: See above. Bones/joints: No acute fracture. IMPRESSION: 1. Small right pleural effusion with basilar atelectasis/infiltrate. 2. Mildly prominent cardiomediastinal silhouette, may be related to technique or other etiology.
[2018-11-05 03:02] LABS: Basophils % (A) 0 %; Eosinophils # (A) 0.3 k/uL (0-0.7); Eosinophils % (A) 4 %; HCT 39.8 % (34.0-46.0); Lymphocytes % (A) 26 %; MCHC 32.6 g/dL (31.0-37.0); MCV 91.9 fL (80.0-100.0); Mean Platelet Volume 7.5; Monocytes # (A) 0.4 k/uL (0-1.0); Monocytes % (A) 5 %; Neutrophils # (A) 4.8 k/uL (1.3-7.7); Neutrophils % (A) 64 %; Platelet Count 223 k/uL (150-450); RBC 4.33 m/uL (3.80-5.40); RDW 12.8 % (11.5-15.5); WBC 7.6 k/uL (3.8-10.6)
[2018-11-05 03:12] LABS: INR 0.9 (<1.2); Partial Thromboplastin Time 24.8 sec (22.0-30.0); Prothrombin Time 9.9 sec (9.0-12.0)
[2018-11-05 03:22] LABS: ALT 18 U/L (9-52); AST 23 U/L (14-36); African American GFR (CKD) >90 (>60 ml/min/1.73 sqM); Alkaline Phosphatase 110 U/L (38-126); Anion Gap 10 mmol/L; Blood Urea Nitrogen 15 mg/dL (7-17); Calcium 9.1 mg/dL (8.4-10.2); Carbon Dioxide 26 mmol/L (22-30); Chloride 104 mmol/L (98-107); Glucose 131 mg/dL (74-99); Magnesium 1.8 mg/dL (1.6-2.3); Potassium 3.7 mmol/L (3.5-5.1); Sodium 140 mmol/L (137-145); Total Bilirubin 0.5 mg/dL (0.2-1.3); Total Protein 6.8 g/dL (6.3-8.2)
--- NOTE | 2018-11-05 03:39 | ED ---
SOB HPI - General Source: patient, EMS Mode of arrival: EMS <Dana Canchola - Last Filed: 11/05/18 04:36> <Nyla Chapin - Last Filed: 11/05/18 22:13> - General Chief Complaint: Shortness of Breath Stated Complaint: LALO Time Seen by Provider: 11/05/18 02:05 - History of Present Illness Initial Comments: 63-year-old female presenting today for chief complaint of shortness of breath. Patient states she feels as though she has "bronchitis or pneumonia". She states she has had cough with green sputum production for the past 2 days, she states she has had chills she states she has occasional sharp pain in the center of her chest. Patient denies any upper extremity paresthesias nausea vomiting epigastric pain shoulder pain. Patient denies hemoptysis, history of cancer, unilateral leg swelling, history of DVT/PE. Patient denies any chest pressure. Patient states she has history of COPD and has increased wheezing. Remaining ROS (-). Upon arrival patient oxygen saturation low, HR 90's. Patient is febrile. Patient was given 1 DuoNeb treatment prior to arrival in the emergency department. Patient denies any recent hospitalizations within the last 90 days. (Dana Canchola) - Related Data Home Medications Medication Instructions Recorded Confirmed Gabapentin [Neurontin] 300 mg PO BID@0900,1700 07/21/16 11/05/18 Atorvastatin [Lipitor] 10 mg PO HS 12/30/16 11/05/18 Omeprazole 20 mg PO DAILY PRN 12/30/16 11/05/18 Vit C/E/Zn/Coppr/Lutein/Zeaxan 1 cap PO DAILY 12/30/16 11/05/18 [Preservision Areds 2 Softgel] Metoprolol Tartrate [Lopressor] 25 mg PO BID 02/25/17 11/05/18 Oxybutynin Xl [Ditropan XL] 5 mg PO BID 02/25/17 11/05/18 Citalopram Hydrobromide [CeleXA] 40 mg PO DAILY 11/05/18 11/05/18 Furosemide [Lasix] 20 mg PO DAILY 11/05/18 11/05/18 cloZAPine [Clozaril] 150 mg PO DAILY 06/15/19 06/15/19 metFORMIN HCL [Glucophage] 500 mg PO DAILY 11/05/18 11/05/18 Previous Rx's Medication Instructions Recorded Apixaban [Eliquis] 5 mg PO BID tab 01/15/17 Digoxin [Lanoxin] 125 mcg PO DAILY tab 01/15/17 Isosorbide Mononitrate ER [Imdur] 60 mg PO DAILY tab 03/01/17 Allergies Allergy/AdvReac Type Severity Reaction Status Date / Time bee venom protein (honey bee) Allergy Anaphylaxis Verified 11/05/18 08:37 lorazepam [From Ativan] Allergy Unknown Verified 11/05/18 08:37 Review of Systems ROS Other: All systems not noted in ROS Statement are negative. <Dana Canchola L - Last Filed: 11/05/18 04:36> ROS Other: All systems not noted in ROS Statement are negative. <Nyla Chapin P - Last Filed: 11/05/18 22:13> ROS Statement: Those systems with pertinent positive or pertinent negative responses have been documented in the HPI. Past Medical History Past Medical History: Heart Failure, COPD, Diabetes Mellitus Additional Past Medical History / Comment(s): Bronchial asthma, obesity, chronic lower extremity edema, L axillae cellulitis/abscess-cultures grew peptostr eptococcus and MSSA-had I&D . Other hx: shingles/staph, R eye macular degeneration, TIA, hiatal hernia, uterine cancer with hysterectomy, tardive dyskinesia, peripheral neuropathy cause unknown, migraines, sinus problems has coronary artery disease with 50% lesion of the LAD, paroxysmal atrial fib rillation, hypertension, acid reflux, schizophrenic disorder, anxiety, peripheral neuropathy, wound vac, PICC line (removed), retention w/ chronic Bell. History of Any Multi-Drug Resistant Organisms: None Reported Past Surgical History: Adenoidectomy, Back Surgery, Cholecystectomy, Ear Surgery, Heart Catheterization, Hysterectomy, Tonsillectomy Additional Past Surgical History / Comment(s): I & D L axillae, L eye surgery for lazy eye, bilateral cataract removal, bilateral myringotomy/tubes, colonoscopy, cardiac cath on 07/24/2016 with moderate stenosis of LAD noted - no stenting at that time recommend medical management and return for angioplasty if sx persist Past Anesthesia/Blood Transfusion Reactions: No Reported Reaction Past Psychological History: Anxiety, Depression, Schizoaffective Disorder Smoking Status: Never smoker Past Alcohol Use History: None Reported Past Drug Use History: None Reported - Past Family History Mother Family Medical History: Myocardial Infarction ([place]) Additional Family Medical History / Comment(s): Mother at 72 yrs. Father Family Medical History: Cancer Additional Family Medical History / Comment(s): Throat cancer; father at 72 yrs. Brother(s) Family Medical History: Cancer Additional Family Medical History / Comment(s): Liver cancer <Dana Canchola - Last Filed: 11/05/18 04:36> General Exam <Dana Canchola - Last Filed: 11/05/18 04:36> - General Exam Comments Initial Comments: General: The patient is awake and alert, in no distress Eye: Pupils are equal, round and reactive to light, extra-ocular movements are intact. No nystagmus. There is normal conjunctiva bilaterally. No signs of icterus. Ears, nose, mouth and throat: There are moist mucous membranes and no oral lesions. Neck: The neck is supple, there is no tenderness or JVD. Cardiovascular: There is a regular rate and rhythm. No murmur, rub or gallop is appreciated. Respiratory: Coarse lung sounds with expiratory wheeze and diminished air movement. r+Respirations are mildly-labored, breath sounds are equal, patient is speaking in full sentences. No stridos. Rale right lung base, diffuse rhonchi. Gastrointestinal: Soft, non-distended, non-tender abdomen without masses or organomegaly noted. There is no rebound or guarding present. No CVA tenderness. Bowel sounds are unremarkable. Musculoskeletal: Normal ROM, no tenderness. Strength 5/5. Sensation intact. Radial pulses equal bilaterally 2+. Neurological: A&O x 3. CN II-XII intact, There are no obvious motor or sensory deficits. Coordination appears grossly intact. Speech is normal. Skin: Skin is warm and dry and no rashes or lesions are noted. no LE pitting edema. Psychiatric: Cooperative, appropriate mood & affect, normal judgment. (Dana Canchola) Course Vital Signs 11/05/18 11/05/18 11/05/18 01:38 02:32 02:39 Temperature 101.3 F H Pulse Rate 91 90 93 Respiratory 20 22 20 Rate Blood Pressure 137/76 O2 Sat by Pulse 90 L Oximetry 11/05/18 11/05/18 11/05/18 03:45 03:56 04:09 Temperature 98.9 F Pulse Rate 92 91 92 Respiratory 19 Rate Blood Pressure 133/63 O2 Sat by Pulse 94 L Oximetry 11/05/18 06:15 Temperature 98.4 F Pulse Rate 106 H Respiratory 20 Rate Blood Pressure 120/61 O2 Sat by Pulse 93 L Oximetry Medical Decision Making - Lab Data Result diagrams: 11/05/18 01:35 11/05/18 01:35 <Dana Canchola - Last Filed: 11/05/18 04:36> - Lab Data Result diagrams: 11/05/18 01:35 11/05/18 11:46 <Nyla Chapin - Last Filed: 11/05/18 22:13> - Medical Decision Making 63-year-old male presenting today for evaluation of shortness of breath and upper respiratory symptoms. Patient states that she believes she has bronchitis or pneumonia. Patient febrile upon arrival. Patient hypoxic. Patient has history of COPD diffuse coarse lung sounds with right lower Rales on examination. Patient has diffuse expiratory wheeze. Patient given 1 DuoNeb treatment minor improvement of wheeze. Patient received second treatment emergency department. Imaging studies of the chest reveal a developing right lower lobe infiltrate, I feel this correlates clinically with pneumonia. Patient is no significant leukocytosis. Lactic acid is elevated. Patient will received IV hydration. Patient EKG was reviewed by my attending provider Dr. Chapin. No convinced evidence of ACS, troponin (-). She was dilated and person by the attending provider Dr. Chapin she is agreeable care plan and admission at this time. Patient has not had any recent admissions. Patient given 1g IVP ceftrixaone in the emergency department, does not appears septic and blood cultures are pending. Patient transferred to the floor in stable condition. I spoke with admitting provider Dr. Perkins who accepted admission. (Dana Canchola) I personally saw and evaluated the patient, I reviewed the patient's history, imaging and labs and agree with plan for admission for sepsis secondary to community-acquired pneumonia. Patient to be admitted to [facility] er PCP preference. (Nyla Chapin) - Lab Data Lab Results 11/05/18 11/05/18 11/05/18 Range/Units 01:35 01:35 01:35 WBC 7.6 (3.8-10.6) k/uL RBC 4.33 (3.80-5.40) m/uL Hgb 13.0 (11.4-16.0) gm/dL Hct 39.8 (34.0-46.0) % MCV 91.9 (80.0-100.0) fL MCH 30.0 (25.0-35.0) pg MCHC 32.6 (31.0-37.0) g/dL RDW 12.8 (11.5-15.5) % Plt Count 223 (150-450) k/uL Neutrophils % 64 % Lymphocytes % 26 % Monocytes % 5 % Eosinophils % 4 % Basophils % 0 % Neutrophils # 4.8 (1.3-7.7) k/uL Lymphocytes # 2.0 (1.0-4.8) k/uL Monocytes # 0.4 (0-1.0) k/uL Eosinophils # 0.3 (0-0.7) k/uL Basophils # 0.0 (0-0.2) k/uL PT (9.0-12.0) sec INR (<1.2) APTT (22.0-30.0) sec Sodium 140 (137-145) mmol/L Potassium 3.7 (3.5-5.1) mmol/L Chloride 104 (98-107) mmol/L Carbon Dioxide 26 (22-30) mmol/L Anion Gap 10 mmol/L BUN 15 (7-17) mg/dL Creatinine 0.80 (0.52-1.04) mg/dL Est GFR (CKD-EPI)AfAm >90 (>60 ml/min/1.73 sqM) Est GFR (CKD-EPI)NonAf 80 (>60 ml/min/1.73 sqM) Glucose 131 H (74-99) mg/dL Plasma Lactic Acid Britton (0.7-2.0) mmol/L Calcium 9.1 (8.4-10.2) mg/dL Magnesium 1.8 (1.6-2.3) mg/dL Total Bilirubin 0.5 (0.2-1.3) mg/dL AST 23 (14-36) U/L ALT 18 (9-52) U/L Alkaline Phosphatase 110 (38-126) U/L Troponin I (0.000-0.034) ng/mL NT-Pro-B Natriuret Pep 83 pg/mL Total Protein 6.8 (6.3-8.2) g/dL Albumin 4.0 (3.5-5.0) g/dL 11/05/18 11/05/18 11/05/18 Range/Units 01:35 01:35 01:35 WBC (3.8-10.6) k/uL RBC (3.80-5.40) m/uL Hgb (11.4-16.0) gm/dL Hct (34.0-46.0) % MCV (80.0-100.0) fL MCH (25.0-35.0) pg MCHC (31.0-37.0) g/dL RDW (11.5-15.5) % Plt Count (150-450) k/uL Neutrophils % % Lymphocytes % % Monocytes % % Eosinophils % % Basophils % % Neutrophils # (1.3-7.7) k/uL Lymphocytes # (1.0-4.8) k/uL Monocytes # (0-1.0) k/uL Eosinophils # (0-0.7) k/uL Basophils # (0-0.2) k/uL PT 9.9 (9.0-12.0) sec INR 0.9 (<1.2) APTT 24.8 (22.0-30.0) sec Sodium (137-145) mmol/L Potassium (3.5-5.1) mmol/L Chloride (98-107) mmol/L Carbon Dioxide (22-30) mmol/L Anion Gap mmol/L BUN (7-17) mg/dL Creatinine (0.52-1.04) mg/dL Est GFR (CKD-EPI)AfAm (>60 ml/min/1.73 sqM) Est GFR (CKD-EPI)NonAf (>60 ml/min/1.73 sqM) Glucose (74-99) mg/dL Plasma Lactic Acid Britton 2.8 H* (0.7-2.0) mmol/L Calcium (8.4-10.2) mg/dL Magnesium (1.6-2.3) mg/dL Total Bilirubin (0.2-1.3) mg/dL AST (14-36) U/L ALT (9-52) U/L Alkaline Phosphatase (38-126) U/L Troponin I <0.012 (0.000-0.034) ng/mL NT-Pro-B Natriuret Pep pg/mL Total Protein (6.3-8.2) g/dL Albumin (3.5-5.0) g/dL Disposition Is patient prescribed a controlled substance at d/c from ED?: No Time of Disposition: 04:05 Decision to Admit Reason: Admit from EC Decision Date: 11/05/18 Decision Time: 04:05 <Dana Canchola - Last Filed: 11/05/18 04:36> <Nyla Chapin - Last Filed: 11/05/18 22:13> Clinical Impression: Pneumonia, Shortness of breath, Cough, Hypoxia, Lactic acidosis Disposition: ADMITTED IP TO THIS HOSP Condition: Stable
[2018-11-05] MEDS ORDERED: IPRATROPIUM-ALBUTEROL 3 ML NEB INHALATION PRN ×3 (04:05→12:51)
[2018-11-05] MEDS ORDERED: AZITHROMYCIN 500 MG TAB PO STA (04:48)
--- NOTE | 2018-11-05 05:23 | P.HPIM ---
History of Present Illness H&P Date: 11/05/18 The patient is a 63 yo F with a PMH of COPD, Afib on Eliquis, HTN, HLD, and CAD presented to the ED for 2 days of cough productive of green phlegm with fever and chills. Patient reports that she was in her usual state of health when these symptoms began. She reports occasional substernal sharp pleuritic chest pain as well as wheezing and SOB, though notes compliance to her inhalers. She otherwise denied sick contacts, nausea, vomiting, or palpitations. Further denied headaches, dizziness, weakness, or numbness. Endorsed some chronic LE swelling bilaterally though denied calf pain, warmth, or redness. She underwent an extensive evaluation in the ED w/ Tmax of 101.3, with SpO2 of 90% via NC, with CXR revealing R basilar infiltrate with developing infiltrate vs atalectasis. Laboratory evaluation revealed lactic acid 2.8, WBC 7.6, Hgb 13, platelets 223, BNP 83, Trop < 0.012, BUN 15, and Cr 0.8. The patient is being admitted to the medicine service for sepsis from community acquired pneumonia. Review of Systems Pertinent positives and negatives as discussed in HPI, a complete review of systems was performed and all other systems are negative. Past Medical History Past Medical History: COPD, Diabetes Mellitus, Hyperlipidemia, Hypertension Additional Past Medical History / Comment(s): Bronchial asthma, obesity, chronic lower extremity edema, L axillae cellulitis/abscess-cultures grew peptos treptococcus and MSSA-had I&D . Other hx: shingles/staph, R eye macular degeneration, TIA, hiatal hernia, uterine cancer with hysterectomy, tardive dyskinesia, peripheral neuropathy cause unknown, migraines, sinus problems has coronary artery disease with 50% lesion of the LAD, paroxysmal atrial f ibrillation, hypertension, acid reflux, schizophrenic disorder, anxiety, peripheral neuropathy, wound vac, PICC line (removed), retention w/ chronic Bell. History of Any Multi-Drug Resistant Organisms: None Reported Past Surgical History: Adenoidectomy, Back Surgery, Cholecystectomy, Ear Surgery, Heart Catheterization, Hysterectomy, Tonsillectomy Additional Past Surgical History / Comment(s): I & D L axillae, L eye surgery for lazy eye, bilateral cataract removal, bilateral myringotomy/tubes, colonoscopy, cardiac cath on 07/24/2016 with moderate stenosis of LAD noted - no stenting at that time recommend medical management and return for angioplasty if sx persist Past Anesthesia/Blood Transfusion Reactions: No Reported Reaction Past Psychological History: Anxiety, Depression, Schizoaffective Disorder Smoking Status: Never smoker Past Alcohol Use History: None Reported Past Drug Use History: None Reported - Past Family History Mother Family Medical History: Myocardial Infarction ([place]) Additional Family Medical History / Comment(s): Mother at 72 yrs. Father Family Medical History: Cancer Additional Family Medical History / Comment(s): Throat cancer; father at 72 yrs. Brother(s) Family Medical History: Cancer Additional Family Medical History / Comment(s): Liver cancer Medications and Allergies Home Medications Medication Instructions Recorded Confirmed Type Cholecalciferol [Vitamin D3 (25 2,000 unit PO HS 08/06/14 02/13/18 History Mcg = 1000 Iu)] Cyanocobalamin [Vitamin B-12] 1,000 mcg PO Q48H 08/06/14 02/13/18 History Gabapentin [Neurontin] 300 mg PO BID@0900,1700 07/21/16 02/13/18 History Nitroglycerin Sl Tabs [Nitrostat] 0.4 mg SUBLINGUAL Q5M PRN 07/22/16 02/13/18 History Calcium Carbonate [Tums] 500 mg PO TID PRN 07/27/16 02/13/18 History Budesonide [Pulmicort] 0.5 mg INHALATION RT-BID neb 12/21/16 02/13/18 Rx Albuterol Nebulized [Ventolin 2.5 mg INHALATION RT-Q6H PRN 12/30/16 02/13/18 History Nebulized] Atorvastatin [Lipitor] 10 mg PO HS 12/30/16 02/13/18 History Calamine/Zinc Oxide Lotion 1 applic TOPICAL Q6H PRN 12/30/16 02/13/18 History [Calamine Lotion] Ferrous Sulfate [Iron (65 MG 325 mg PO DAILY@1700 12/30/16 02/13/18 History Elemental)] Omeprazole 20 mg PO AC-BID 12/30/16 02/13/18 History Ondansetron [Zofran] 4 mg PO Q8HR PRN 12/30/16 02/13/18 History Vit C/E/Zn/Coppr/Lutein/Zeaxan 1 cap PO DAILY 12/30/16 02/13/18 History [Preservision Areds 2 Softgel] Apixaban [Eliquis] 5 mg PO BID tab 01/15/17 02/13/18 Rx Digoxin [Lanoxin] 125 mcg PO DAILY tab 01/15/17 02/13/18 Rx Amino Acids/Protein Hydrolys 30 ml PO BID 02/16/17 02/13/18 History [Pro-Stat Supplement] Artificial Tears-Hypromellose 2 drops RIGHT EYE Q4H PRN 02/25/17 02/13/18 History [Artificial Tear Drops] Calazime 1 applic TOPICAL Q12H PRN 02/25/17 02/13/18 History Clotrimazole/Betamethasone Dip 1 applic TOPICAL BID PRN 02/25/17 02/13/18 History [Lotrisone Cream] Lactulose 10 gm PO BID PRN 02/25/17 02/13/18 History Metoprolol Tartrate [Lopressor] 25 mg PO Q8H 02/25/17 02/13/18 History Oxybutynin Xl [Ditropan XL] 5 mg PO BID 02/25/17 02/13/18 History Tobramycin 0.3% Ophth Soln [Tobrex 1 drop BOTH EYES Q4H 02/25/17 02/13/18 History 0.3% Ophth Soln] Acetaminophen-Codeine 300-30mg 1 tab PO Q8H PRN #30 03/01/17 02/13/18 Rx [Tylenol w/codeine #3] Baclofen [Lioresal] 5 mg PO Q6H PRN #20 tablet 03/01/17 02/13/18 Rx Citalopram Hydrobromide [CeleXA] 20 mg PO DAILY tab 03/01/17 02/13/18 Rx Hydrocortisone Cream 1 applic TOPICAL BID PRN dose 03/01/17 02/13/18 Rx [Hydrocortisone 1% Cream] Isosorbide Mononitrate ER [Imdur] 60 mg PO DAILY tab 03/01/17 02/13/18 Rx Nitrofurantoin Monohyd/M-Cryst 100 mg PO Q12HR #8 cap 03/01/17 02/13/18 Rx [Macrobid] QUEtiapine [SEROquel] 600 mg PO HS #45 03/01/17 02/13/18 Rx traMADol HCL [Ultram] 50 mg PO Q6HR PRN #20 tab 03/01/17 02/13/18 Rx Ferrous Sulfate [Feosol] 325 mg PO DAILY 03/09/17 02/13/18 History Vit C/E/Zn/Coppr/Lutein/Zeaxan 1 each PO DAILY 03/09/17 02/13/18 History [Preservision Areds 2 Softgel] Allergies Allergy/AdvReac Type Severity Reaction Status Date / Time bee venom protein (honey bee) Allergy Anaphylaxis Verified 11/05/18 01:41 lorazepam [From Ativan] Allergy Unknown Verified 11/05/18 01:41 Physical Exam Vitals: Vital Signs Temp Pulse Resp BP Pulse Ox 11/05/18 04:09 92 11/05/18 03:56 91 11/05/18 03:45 98.9 F 92 19 133/63 94 L 11/05/18 02:39 93 20 11/05/18 02:32 90 22 11/05/18 01:38 101.3 F H 91 20 137/76 90 L Intake and Output 11/04/18 11/04/18 11/05/18 14:59 22:59 06:59 Other: Weight 86.183 kg General: non toxic, in mild respirator distress, appears at stated age, obese Derm: no unusual rashes/lesions no unusual ecchymoses, warm, dry Head: atraumatic, normocephalic, symmetric Eyes: EOMI, no lid lag, anicteric sclera, pupils equal round reactive to light ENT: Nose and ears atraumatic, no thrush, no pharyngeal erythema Neck: No thyromegaly, no cervical lymphadenopathy, trachea midline, supple Mouth: no lip lesion, mucus membranes moist Cardiovascular: S1S2 reg, mildly tachycardic, no murmur, positive posterior tibial pulse bilateral, 1+ bbil LE pitting edema, capillary refill less than 2 seconds Lungs: Bilateral wheezing w/ coarse breath sounds diffusely, no accessory muscle use Abdominal: soft, nontender to palpation, no guarding, no appreciable organomegaly, normal bowel sounds Ext: no gross muscle atrophy, muscle strength 5 out of 5 in all 4 extremities grossly, no contractures, Neuro: CN II-XI grossly intact, light touch intact all 4 extremities, finger to nose within normal limits, Psych: Alert, oriented, appropriate affect Results CBC & Chem 7: 11/05/18 01:35 11/05/18 01:35 Labs: Abnormal Lab Results - Last 24 Hours (Table) 11/05/18 11/05/18 Range/Units 01:35 01:35 Glucose 131 H (74-99) mg/dL Plasma Lactic Acid Britton 2.8 H* (0.7-2.0) mmol/L Assessment and Plan Plan: Severe sepsis secondary to Community acquired pneumonia -C/w Azithromycin and Ceftriaxone -C/w IVFs -Monitor lactate until normalcy Acute COPD exacerbation in setting of pneumonia -C/w Bronchodilators -C/w Prednisone oral daily Paroxysmal Afib on Eliquis -Resume home dose of Eliquis HTN -Hold antihypertensives in setting of severe sepsis -Resume as warranted HLD, CAD, Depression, Anxiety -Resume home medications DVT prophylaxis -Eliquis The patient is admitted with an anticipated greater than 2 midnight stay for evaluation of sepsis from pneumonia. CODE STATUS:No Code w/ instructions Discussed with: Patient Anticipated discharge date: 11/07/[address]: Home A total of 45 minutes was spent on the care of this complex patient more than 50% of the time was spent in counseling and care coordination.
[2018-11-05 06:52] LABS: Glucose,Whole Blood 214 mg/dL (75-99)
[2018-11-05] MEDS: IPRATROPIUM-ALBUTEROL 3 ML NEB INHALATION SCH ×6 (07:17→22:47)
[2018-11-05] MEDS: AZITHROMYCIN 500 MG TAB PO SCH (08:32)
[2018-11-05] MEDS ORDERED: predniSONE 20 MG TAB PO SCH (09:00)
[2018-11-05] MEDS ORDERED: PANTOPRAZOLE 40 MG TABLET PO PRN (09:20)
[2018-11-05] MEDS: SODIUM CHLORIDE 0.9% 500 ML 500 ML IV SCH ×4 (10:38→12:04)
[2018-11-05] MEDS: FUROSEMIDE 20 MG TAB PO SCH ×2 (10:38→10:44)
[2018-11-05] MEDS: METOPROLOL TARTRATE 25 MG TAB PO SCH ×2 (10:44→22:27)
[2018-11-05] MEDS: CITALOPRAM HYDROBROMIDE 20 MG TAB PO SCH (10:44)
[2018-11-05] MEDS: APIXABAN 5 MG TAB PO SCH ×2 (10:44→22:26)
[2018-11-05] MEDS: DIGOXIN 125 MCG TAB PO SCH (10:45)
[2018-11-05] MEDS: cloZAPine 100 MG TAB PO SCH (10:45)
[2018-11-05] MEDS: ISOSORBIDE MONONITRATE ER 60 MG TAB.ER.24H PO SCH (10:46)
[2018-11-05] MEDS: OXYBUTYNIN XL 5 MG TAB.ER.24 PO SCH ×2 (10:47→22:27)
[2018-11-05 11:47] LABS: Glucose,Whole Blood 211 mg/dL (75-99)
[2018-11-05 13:24] LABS: African American GFR (CKD) >90 (>60 ml/min/1.73 sqM); Anion Gap 17 mmol/L; Blood Urea Nitrogen 12 mg/dL (7-17); Calcium 8.7 mg/dL (8.4-10.2); Carbon Dioxide 15 mmol/L (22-30); Chloride 111 mmol/L (98-107); Glucose 228 mg/dL (74-99); Potassium 3.8 mmol/L (3.5-5.1); Sodium 143 mmol/L (137-145)
[2018-11-05 14:10] LABS: ABG HCO3 16 mmol/L (21-25); ABG Oxygen Saturation 98.3 % (94-97); ABG PCO2 27 mmHg (35-45); ABG PH 7.38 (7.35-7.45); ABG PO2 113 mmHg (83-108); ABG TCO2 17 mmol/L (19-24); Allen Test Performed? Yes
[2018-11-05] MEDS ORDERED: SODIUM CHLORIDE 0.9% 1,000 ML IV ONE ×3 (14:43→21:04)
[2018-11-05] MEDS ORDERED: INSULIN ASPART (NovoLOG) 100 UNIT/ML VIAL SQ PRN (14:44)
[2018-11-05] MEDS: SODIUM CHLORIDE 0.9% 1,000 ML IV SCH (15:42)
[2018-11-05] MEDS: GABAPENTIN 300 MG CAP PO SCH (15:45)
[2018-11-05] MEDS: methylPREDNISolone SOD SUCCI 125 MG/2 ML VIAL IV SCH (15:45)
[2018-11-05 17:19] LABS: Glucose,Whole Blood 210 mg/dL (75-99)
[2018-11-05] MEDS: INSULIN ASPART (NovoLOG) 100 UNIT/ML VIAL SQ SCH ×2 (17:37→22:26)
[2018-11-05] MEDS ORDERED: RX INFO: IV CONTRAST WAS GIVEN 1 EACH MISC MISCELLANE PRN (19:59)
[2018-11-05 20:09] LABS: Glucose,Whole Blood 207 mg/dL (75-99)
--- NOTE | 2018-11-05 21:31 | CT ---
EXAMINATION TYPE: CT chest w con DATE OF EXAM: 11/05/2018 COMPARISON: 12/07/2016 HISTORY: 63-year-old female Shortness of breath and elevated lactic. TECHNIQUE: Contiguous axial scanning of the chest after the administration of 100 mL of Isovue 300. Coronal/sagittal reconstructions performed. CT DLP: 549mGycm. Automatic exposure control utilized for a dose reduction. FINDINGS: Heart normal size without pericardial effusion. Borderline caliber to the main pulmonary arteries measuring up to 2.5 cm on the right. Possible under lying pulmonary arterial hypertension. Aorta normal caliber with conventional branching anatomy. Some scattered calcified mediastinal lymph nodes compatible with granulomatous disease. No thoracic l ymphadenopathy. Scarring in the left axilla possibly from prior surgery. This may correlated clinical ly. There is right lower lobe collapse and consolidation with multiple air bronchograms. Right middle and lower lobar bronchial narrowing is noted. Bands of atelectasis or scarring at the posterior left bas e. No pleural effusion. Visualized upper abdomen shows cholecystectomy clips and fatty infiltration of the pancreas. Calcifie d granulomas within the spleen. Bones: ACF hardware. No osseous destructive process. IMPRESSION: 1. Right lower lobe collapse and consolidation. Underlying pneumonia should be excluded on clinical b asis. There is narrowing of the right middle lobe and right lower lobe bronchi. Possibly from broncho malacia. Mucous plugging or broncholith (given adjacent calcified lymph nodes) are also consideration s. 2. Possible pulmonary arterial hypertension. 3. Apparent scarring at the left axilla. Query prior surgery here.
--- NOTE | 2018-11-05 22:04 | P.PN ---
Progress Note - Text Progress Note Date: 11/05/18 Notified by the RN at 8 pm that the patient continues to be short of breath and had an elevated lactate of 11 earlier in the day. Patient seen and examined at the bedside. Patient was verbal and notes that she feels as though she hasn't improved since admission and continues to feel short of breath. She otherwise denied chest pain, fever, or additional complaints. General: Non-toxic, in mild resp distress, appears stated age Cardiovascular: S1/S2 wnl, tachycardic no murmurs, rubs, or gallops Lungs: Bilateral scattered ronchi w/ mild wheezing, no rales appreciated, normal respiratory effort, no accessory muscle use Abdominal: Soft, non-tender, non-distended, no guarding, rebound, or rigidity Skin: Warm, dry Extremities: Trace LE edema sukhjinder, no contractures Psychiatric: Alert and oriented to person, place and time, appropriate affect Neuro: CN II-XII grossly intact, Strength 5/5 in all 4 extremities, Speech intact, Sensation to light touch grossly intact throughout Assessment/Plan Sepsis from community acquired pneumonia, with SOB likely due to the pneumonia w/ component of COPD -Patient's oxygen requirement's increased and currently on High-flow NC at 8 L, w/ SpO2 94 % -Will upgrade patient to Selective in light of increased oxygen requirements -CT Chest w/ contrast reviewed - consistent w/ pneumonia -C/w current management w/ Abxs, IVFs, IV steroids and breathing treatments -Lactate improved, will continue to recheck until normal -Pulmonary consulted
[2018-11-05] MEDS: ATORVASTATIN 10 MG TAB PO SCH (22:26)
[2018-11-05] MEDS: guaiFENesin 600 MG TABLET.ER PO SCH (22:27)
[2018-11-06] MEDS: methylPREDNISolone SOD SUCCI 125 MG/2 ML VIAL IV SCH ×5 (00:37→23:26)
[2018-11-06] MEDS: SODIUM CHLORIDE 0.9% 1,000 ML IV SCH ×3 (00:39→21:28)
[2018-11-06 01:47] LABS: Hemoglobin A1C 6.6 % (4.0-6.0)
[2018-11-06] MEDS: IPRATROPIUM-ALBUTEROL 3 ML NEB INHALATION SCH ×6 (04:08→23:31)
[2018-11-06 05:43] LABS: Glucose,Whole Blood 160 mg/dL (75-99)
[2018-11-06 06:31] LABS: Glucose,Whole Blood 175 mg/dL (75-99)
[2018-11-06] MEDS: INSULIN ASPART (NovoLOG) 100 UNIT/ML VIAL SQ SCH ×4 (06:38→21:49)
[2018-11-06 07:03] LABS: Basophils % (A) 0 %; Eosinophils % (A) 0 %; HCT 36.3 % (34.0-46.0); HGB 11.5 gm/dL (11.4-16.0); Lymphocytes # (A) 0.8 k/uL (1.0-4.8); Lymphocytes % (A) 6 %; MCH 29.2 pg (25.0-35.0); MCHC 31.6 g/dL (31.0-37.0); MCV 92.5 fL (80.0-100.0); Monocytes # (A) 0.2 k/uL (0-1.0); Monocytes % (A) 1 %; Neutrophils # (A) 12.1 k/uL (1.3-7.7); Neutrophils % (A) 92 %; Platelet Count 241 k/uL (150-450); RBC 3.92 m/uL (3.80-5.40); RDW 13.1 % (11.5-15.5); WBC 13.2 k/uL (3.8-10.6)
[2018-11-06 07:21] LABS: African American GFR (CKD) >90 (>60 ml/min/1.73 sqM); Anion Gap 7 mmol/L; Blood Urea Nitrogen 12 mg/dL (7-17); Calcium 8.6 mg/dL (8.4-10.2); Carbon Dioxide 22 mmol/L (22-30); Chloride 115 mmol/L (98-107); Glucose 161 mg/dL (74-99); Potassium 4.1 mmol/L (3.5-5.1); Sodium 144 mmol/L (137-145)
[2018-11-06] MEDS: AZITHROMYCIN 500 MG TAB PO SCH (08:35)
[2018-11-06] MEDS: CITALOPRAM HYDROBROMIDE 20 MG TAB PO SCH (08:35)
[2018-11-06] MEDS: APIXABAN 5 MG TAB PO SCH ×2 (08:35→21:49)
[2018-11-06] MEDS: cloZAPine 100 MG TAB PO SCH (08:35)
[2018-11-06] MEDS: GABAPENTIN 300 MG CAP PO SCH ×2 (08:36→18:08)
[2018-11-06] MEDS: DIGOXIN 125 MCG TAB PO SCH (08:36)
[2018-11-06] MEDS: guaiFENesin 600 MG TABLET.ER PO SCH ×2 (08:36→21:48)
[2018-11-06] MEDS: ISOSORBIDE MONONITRATE ER 60 MG TAB.ER.24H PO SCH (08:37)
[2018-11-06] MEDS: OXYBUTYNIN XL 5 MG TAB.ER.24 PO SCH ×2 (08:37→21:48)
[2018-11-06] MEDS: METOPROLOL TARTRATE 25 MG TAB PO SCH ×2 (08:37→21:48)
--- NOTE | 2018-11-06 09:25 | P.PN ---
Subjective Progress Note Date: 11/06/18 Principal diagnosis: Patient seen and examined at bedside, reports that she's feeling a little bit better today. Patient continues on high flow nasal cannula @ 9. Serum lactate still elevated at 3.8 last night, patient no longer tachycardic, afebrile overnight with a mild leukocytosis of 13.[address] of the chest showing right lobe collapse and consolidation, with narrowing of the right middle lobe and right lower lobe bronchi, with possible mucus plugging. Objective - Vital Signs Vital signs: Vital Signs Temp 97.6 F 11/06/18 04:00 Pulse 88 11/06/18 07:51 Resp 22 11/06/18 04:00 BP 132/76 11/06/18 04:00 Pulse Ox 93 L 11/06/18 04:08 Intake & Output 11/05/18 11/06/18 11/06/18 18:59 06:59 18:59 Intake Total 120 2390 Balance 120 2390 Weight 91.3 kg Intake: IV 20 Invasive Line 1 20 Intake, IV Titration 2250 Amount Sodium Chloride 0.9% 1, 200 000 ml @ 100 mls/hr IV . Q10H [facility]ADA Rx#:[id number] Sodium Chloride 0.9% 1, 1000 000 ml @ 999 mls/hr IV . Q1H1M ONE Rx#:[id number] Sodium Chloride 0.9% 1, 1000 000 ml @ 999 mls/hr IV . Q1H1M ONE Rx#:[id number] cefTRIAXone 1 gm In 50 Sodium Chloride 0.9% 50 ml @ 100 mls/hr IVPB HS AMADA Rx#:[id number] Oral 120 120 Other: Voiding Method Toilet Bedside Commode # Voids 600 1 - Exam Constitutional: No acute distress, conversant, pleasant Eyes: Anicteric sclerae, moist conjunctiva, no lid-lag, PERRLA ENMT: NC/AT,Oropharynx clear, no erythema, exudates Neck:Supple, FROM, no masses, or JVD, No carotid bruits; No thyromegaly Lungs: Diminished in the bases, right-sided rales and rhonchi, no crackles Cardiovascular: Heart regular in rate and rhythm, No murmurs, gallops, or rubs, +1.5 peripheral edema Abdominal: Soft Nontender, nom distended, no guarding, no rebound or rigidity, Normoactive bowel sounds No hepatomegaly, No splenomegaly, No palpable mass No abdominal wall hernia noted Skin: Normal temperature, tone, texture, turgor, No induration No subcutaneous nodules, No rash, lesions, No ulcers Extremities:No digital cyanosis No clubbing, Pedal pulses intact and symmetrical Radial pulses intact and symmetrical Normal gait and station, No calf tenderness Psychiatric: Alert and oriented to person, place and time, Appropriate affect Intact judgement Neuro: Muscles Strength 5/5 in all 4 extremities, Sensation to light touch grossly present throughout, Cranial nerves II-XII grossly intact. No focal sensory deficits - Labs CBC & Chem 7: 11/06/18 06:14 11/06/18 06:14 Labs: Abnormal Lab Results - Last 24 Hours (Table) 11/05/18 11/05/18 11/05/18 Range/Units 11:46 11:46 11:46 WBC (3.8-10.6) k/uL Neutrophils # (1.3-7.7) k/uL Lymphocytes # (1.0-4.8) k/uL ABG pCO2 (35-45) mmHg ABG pO2 (83-108) mmHg ABG HCO3 (21-25) mmol/L ABG Total CO2 (19-24) mmol/L ABG O2 Saturation (94-97) % Chloride 111 H (98-107) mmol/L Carbon Dioxide 15 L (22-30) mmol/L Glucose 228 H (74-99) mg/dL POC Glucose (mg/dL) 211 H (75-99) mg/dL Hemoglobin A1c (4.0-6.0) % Plasma Lactic Acid Britton 11.2 H* (0.7-2.0) mmol/L 11/05/18 11/05/18 11/05/18 Range/Units 11:46 14:05 17:18 WBC (3.8-10.6) k/uL Neutrophils # (1.3-7.7) k/uL Lymphocytes # (1.0-4.8) k/uL ABG pCO2 27 L (35-45) mmHg ABG pO2 113 H (83-108) mmHg ABG HCO3 16 L (21-25) mmol/L ABG Total CO2 17 L (19-24) mmol/L ABG O2 Saturation 98.3 H (94-97) % Chloride (98-107) mmol/L Carbon Dioxide (22-30) mmol/L Glucose (74-99) mg/dL POC Glucose (mg/dL) 210 H (75-99) mg/dL Hemoglobin A1c 6.6 H (4.0-6.0) % Plasma Lactic Acid Britton (0.7-2.0) mmol/L 11/05/18 11/05/18 11/05/18 Range/Units 19:43 20:09 23:50 WBC (3.8-10.6) k/uL Neutrophils # (1.3-7.7) k/uL Lymphocytes # (1.0-4.8) k/uL ABG pCO2 (35-45) mmHg ABG pO2 (83-108) mmHg ABG HCO3 (21-25) mmol/L ABG Total CO2 (19-24) mmol/L ABG O2 Saturation (94-97) % Chloride (98-107) mmol/L Carbon Dioxide (22-30) mmol/L Glucose (74-99) mg/dL POC Glucose (mg/dL) 207 H (75-99) mg/dL Hemoglobin A1c (4.0-6.0) % Plasma Lactic Acid Britton 5.8 H* 3.8 H* (0.7-2.0) mmol/L 11/06/18 11/06/18 11/06/18 Range/Units 05:41 06:14 06:14 WBC 13.2 H (3.8-10.6) k/uL Neutrophils # 12.1 H (1.3-7.7) k/uL Lymphocytes # 0.8 L (1.0-4.8) k/uL ABG pCO2 (35-45) mmHg ABG pO2 (83-108) mmHg ABG HCO3 (21-25) mmol/L ABG Total CO2 (19-24) mmol/L ABG O2 Saturation (94-97) % Chloride 115 H (98-107) mmol/L Carbon Dioxide (22-30) mmol/L Glucose 161 H (74-99) mg/dL POC Glucose (mg/dL) 160 H (75-99) mg/dL Hemoglobin A1c (4.0-6.0) % Plasma Lactic Acid Britton (0.7-2.0) mmol/L 11/06/18 Range/Units 06:30 WBC (3.8-10.6) k/uL Neutrophils # (1.3-7.7) k/uL Lymphocytes # (1.0-4.8) k/uL ABG pCO2 (35-45) mmHg ABG pO2 (83-108) mmHg ABG HCO3 (21-25) mmol/L ABG Total CO2 (19-24) mmol/L ABG O2 Saturation (94-97) % Chloride (98-107) mmol/L Carbon Dioxide (22-30) mmol/L Glucose (74-99) mg/dL POC Glucose (mg/dL) 175 H (75-99) mg/dL Hemoglobin A1c (4.0-6.0) % Plasma Lactic Acid Britton (0.7-2.0) mmol/L Microbiology - Last 24 Hours (Table) 11/05/18 01:30 Blood Culture - Preliminary Blood No Growth after 24 hours Assessment and Plan (1) Severe sepsis Narrative/Plan: * The patient respiratory failure due to severe pneumonia with mucous plugging and COPD exacerbation * Remains normotensive and tachycardia has resolved, metabolic acidosis/ lactic acidosis is improving we'll discontinue any further rechecks at this time * Patient remains afebrile, mild leukocytosis (possibly secondary to steroids) * Continue empiric IV antibiotics with azithromycin and Rocephin Current Visit: Yes Status: Acute Code(s): A41.9 - SEPSIS, UNSPECIFIED ORGANISM; R65.20 - SEVERE SEPSIS WITHOUT SEPTIC SHOCK SNOMED Code(s): 77351176 (2) Acute respiratory failure with hypoxia Narrative/Plan: * Multifactorial secondary to community-acquired pneumonia in the setting of acute COPD exacerbation with possible mucus plugging * Continue supplemental oxygen currently on high flow to maintain oxygen sa turations * Continue breathing treatments * Pulmonary has been consult and Current Visit: Yes Status: Acute Code(s): J96.01 - ACUTE RESPIRATORY FAILURE WITH HYPOXIA SNOMED Code(s): 80322970 (3) Community acquired pneumonia Current Visit: Yes Status: Acute Code(s): J18.9 - PNEUMONIA, UNSPECIFIED ORG ANISM SNOMED Code(s): 150450799 (4) COPD with acute exacerbation Narrative/Plan: * Triggered by pneumonia and sepsis * Continue systemic steroids with Solu-Medrol 60 mg iv q 6, continue A/A Duo nebs Q 4 and PRN Current Visit: Yes Status: Acute Code(s): J44.1 - CHRONIC OBSTRUCTIVE PULMONARY DISEASE W (ACUTE) EXACERBATION SNOMED Code(s): 196409043 (5) Essential hypertension Narrative/Plan: * Blood pressure stable controlled on current home regimen * Continue metoprolol and Lasix Current Visit: Yes Status: Acute Code(s): I10 - ESSENTIAL (PRIMARY) HYPERTENSION SNOMED Code(s): 93389192 Plan: * Disposition * Anticipated discharge 2-3 days * Follow up with consultants recommendations
--- NOTE | 2018-11-06 11:23 | P.CNPUL ---
History of Present Illness Consult date: 11/06/18 Reason for consult: pneumonia History of present illness: 3-year-old female patient was hospitalized for a right lower lobe pneumonia. The patient lives in an AFC home and she is known to have asthma chronic paroxysmal atrial fibrillation maintained on long-term medical condition with Eliquis, hypertension and hyperlipidemia. She is also known to have coronary artery disease. She also has prison history of psychiatric disorder includin g schizophrenia and a component of tardive dyskinesia. Has been expressing increased dyspnea cough venous sputum production of fever and chills. She was admitted to the hospital and she was diagnosed having a right lower lobe pneumonia pH of present with some pleuritic chest pain increased shortness of breath. She was given Rocephin and Zithromax and admitted to the medical floor. Initial lactic acid level was at 2.8. Subsequently overnight lactic acid level gradually went up. Lactic acid level peaked at 11.2 and subsequently dropped down to 3.8. During this time the patient was receiving IV antibiotics and fluids. She continued to be awake and alert and there was no lethargy or alte red mentation. No further worsening in respiratory distress. A review the CAT scan of the chest that was on overnight and is clearly shows a right lower lobe pneumonia involving the posterior-superior segment which obviously raises the concern for aspiration. Nevertheless, the patient seems to be swallowing her food fine without any major difficulties. This morning, she is on 9 L of oxygen by nasal cannula with a pulse ox of 93% she is afebrile she is not tachycardic and her heart rate is sinus at the rate of 90. No nausea. No vomiting. No abdominal pain. He is receiving also IV fluids with normal state rate of 100 mL an hour. Overnight she was given more fluids and lites fluid balance is +2.5 L. Review of Systems Constitutional: Reports fatigue, Reports lethargy, Reports poor appetite, Reports weakness Eyes: denies blurred vision, denies bulging eye, denies decreased vision Ears: deny: decreased hearing, ear discharge, earache, tinnitus Ears, nose, mouth and throat: Reports as per HPI Cardiovascular: Reports decreased exercise tolerance, Reports dyspnea on exertion Respiratory: Reports cough, Reports cough with sputum, Reports dyspnea Gastrointestinal: Denies abdominal pain, Denies diarrhea, Denies nausea, Denies vomiting Genitourinary: Reports as per HPI Musculoskeletal: Reports as per HPI Musculoskeletal: absent: ankle pain, ankle stiffness, ankle swelling Integumentary: Reports as per HPI Neurological: Reports as per HPI Psychiatric: Reports as per HPI Endocrine: Reports as per HPI Hematologic/Lymphatic: Reports as per HPI Allergic/Immunologic: Reports as per HPI Past Medical History Past Medical History: COPD, Diabetes Mellitus, Hyperlipidemia, Hypertension Additional Past Medical History / Comment(s): Bronchial asthma, obesity, chronic lower extremity edema, L axillae cellulitis/abscess-cultures grew peptostreptococcus and MSSA-had I&D . Other hx: shingles/staph, R eye macular degeneration, TIA, hiatal hernia, uterine cancer with hysterectomy, tardive dyskinesia, peripheral neuropathy cause unknown, migraines, sinus problems has coronary artery disease with 50% lesion of the LAD, paroxysmal atrial fibrillation, hypertension, acid reflux, schizophrenic disorder, anxiety, peripheral neuropathy, wound vac, PICC line (removed), retention w/ chronic Bell. History of Any Multi-Drug Resistant Organisms: None Reported Past Surgical History: Adenoidectomy, Back Surgery, Cholecystectomy, Ear Surgery, Heart Catheterization, Hysterectomy, Tonsillectomy Additional Past Surgical History / Comment(s): I & D L axillae, L eye surgery for lazy eye, bilateral cataract removal, bilateral myringotomy/tubes, colonoscopy, cardiac cath on 07/24/2016 with moderate stenosis of LAD noted - no stenting at that time recommend medical management and return for angioplasty if sx persist Past Anesthesia/Blood Transfusion Reactions: No Reported Reaction Past Psychological History: Anxiety, Depression, Schizoaffective Disorder Additional Psychological History / Comment(s): Is normally a resident of a skilled nursing. [facility] Smoking Status: Never smoker Past Alcohol Use History: None Reported Additional Past Alcohol Use History / Comment(s): Pt states she used to drink occasionally but has not had any alcohol since 2006. Denies alcoholism. Past Drug Use History: None Reported - Past Family History Mother Family Medical History: Myocardial Infarction ([place]) Additional Family Medical History / Comment(s): Mother at 72 yrs. Father Family Medical History: Cancer Additional Family Medical History / Comment(s): Throat cancer; father at 72 yrs. Brother(s) Family Medical History: Cancer Additional Family Medical History / Comment(s): Liver cancer Medications and Allergies Home Medications Medication Instructions Recorded Confirmed Type Gabapentin [Neurontin] 300 mg PO BID@0900,1700 07/21/16 11/05/18 History Atorvastatin [Lipitor] 10 mg PO HS 12/30/16 11/05/18 History Omeprazole 20 mg PO DAILY PRN 12/30/16 11/05/18 History Vit C/E/Zn/Coppr/Lutein/Zeaxan 1 cap PO DAILY 12/30/16 11/05/18 History [Preservision Areds 2 Softgel] Apixaban [Eliquis] 5 mg PO BID tab 01/15/17 11/05/18 Rx Digoxin [Lanoxin] 125 mcg PO DAILY tab 01/15/17 11/05/18 Rx Metoprolol Tartrate [Lopressor] 25 mg PO BID 02/25/17 11/05/18 History Oxybutynin Xl [Ditropan XL] 5 mg PO BID 02/25/17 11/05/18 History Isosorbide Mononitrate ER [Imdur] 60 mg PO DAILY tab 03/01/17 11/05/18 Rx Citalopram Hydrobromide [CeleXA] 40 mg PO DAILY 11/05/18 11/05/18 History Furosemide [Lasix] 20 mg PO DAILY 11/05/18 11/05/18 History cloZAPine [Clozaril] 150 mg PO DAILY 11/05/18 11/05/18 History metFORMIN HCL [Glucophage] 500 mg PO DAILY 11/05/18 11/05/18 History Allergies Allergy/AdvReac Type Severity Reaction Status Date / Time bee venom protein (honey bee) Allergy Anaphylaxis Verified 11/05/18 08:37 lorazepam [From Ativan] Allergy Unknown Verified 11/05/18 08:37 Physical Exam Vitals: Vital Signs Temp Pulse Pulse Pulse Resp BP Pulse Ox 11/06/18 11:08 88 11/06/18 08:15 98.0 F 96 18 122/75 93 L 11/06/18 07:51 88 11/06/18 07:41 92 11/06/18 04:18 80 11/06/18 04:08 75 93 L 11/06/18 04:00 97.6 F 86 22 132/76 95 11/06/18 02:00 98.4 F 106 H 106 H 24 123/59 91 L 06/16/19 00:19 93 L 11/05/18 23:03 105 H 11/05/18 22:48 96 11/05/18 22:30 97.8 F 105 H 20 125/68 93 L 11/05/18 21:05 97.6 F 105 H 22 115/58 94 L 11/05/18 20:00 92 L 11/05/18 19:52 109 H 11/05/18 19:45 101 H 11/05/18 19:43 111 H 89 L 11/05/18 19:30 97.8 F 106 H 23 101/57 93 L 11/05/18 16:11 108 H 11/05/18 15:57 104 H 11/05/18 15:16 101 H 18 11/05/18 12:42 98 F 101 H 18 130/76 92 L Intake and Output 11/05/18 11/06/18 11/06/18 22:59 06:59 14:59 Intake Total 2370 20 250 Output Total 300 Balance 2370 20 -50 Intake: IV 20 10 Invasive Line 1 20 10 Intake, IV Titration 2250 Amount Sodium Chloride 0.9% 1, 200 000 ml @ 100 mls/hr IV . Q10H AMADA Rx#:[id number] Sodium Chloride 0.9% 1, 1000 000 ml @ 999 mls/hr IV . Q1H1M ONE Rx#:[id number] Sodium Chloride 0.9% 1, 1000 000 ml @ 999 mls/hr IV . Q1H1M ONE Rx#:[id number] cefTRIAXone 1 gm In 50 Sodium Chloride 0.9% 50 ml @ 100 mls/hr IVPB HS AMADA Rx#:[id number] Oral 120 240 Output: Urine 300 Other: Voiding Method Toilet Bedside Commode Bedside Commode # Voids 1 1 Weight 91.3 kg General: non toxic, in mild respirator distress, appears at stated age, obese Derm: no unusual rashes/lesions no unusual ecchymoses, warm, dry Head: Head exam was generally normal. There was no scleral icterus or corneal arcus. Mucous membranes were moist. Eyes: Neck was supple and without jugular venous distension, thyromegaly, or carotid bruits. Carotids were easily palpable bilaterally. There was no adenopathy. Mouth: no lip lesion, mucus membranes moist Cardiovascular: S1S2 reg, mildly tachycardic, no murmur, positive posterior tibial pulse bilateral, 1+ sukhjinder LE pitting edema, capillary refill less than 2 seconds Lungs: Bilateral wheezing w/ coarse breath sounds diffusely, no accessory muscle use and there are coarse crackles in lung bases mainly on the right lung base. Abdominal: soft, nontender to palpation, no guarding, no appreciable organomegaly, normal bowel sounds Ext: no gross muscle atrophy, muscle strength 5 out of 5 in all 4 extremities grossly, no contractures, Neuro: CN II-XI grossly intact, light touch intact all 4 extremities, finger to nose within normal limits, Psych: Alert, oriented, appropriate affect Examination of the skin revealed no evidence of significant rashes, suspicious appearing nevi or other concerning lesions. Results - Laboratory Findings CBC and BMP: 11/06/18 06:14 11/06/18 06:14 ABG ABG pH 7.38 (7.35-7.45) 11/05/18 14:05 ABG pCO2 27 mmHg (35-45) L 11/05/18 14:05 ABG pO2 113 mmHg (83-108) H 11/05/18 14:05 ABG O2 Saturation 98.3 % (94-97) H 11/05/18 14:05 PT/INR, D-dimer PT 9.9 sec (9.0-12.0) 11/05/18 01:35 INR 0.9 (<1.2) 11/05/18 01:35 Abnormal lab findings: Abnormal Labs 11/05/18 11/05/18 11/05/18 01:35 01:35 06:30 WBC Neutrophils # Lymphocytes # ABG pCO2 ABG pO2 ABG HCO3 ABG Total CO2 ABG O2 Saturation Chloride Carbon Dioxide Glucose 131 H POC Glucose (mg/dL) Hemoglobin A1c Plasma Lactic Acid Britton 2.8 H* 5.0 H* 11/05/18 11/05/18 11/05/18 06:50 11:46 11:46 WBC Neutrophils # Lymphocytes # ABG pCO2 ABG pO2 ABG HCO3 ABG Total CO2 ABG O2 Saturation Chloride Carbon Dioxide Glucose POC Glucose (mg/dL) 214 H 211 H Hemoglobin A1c Plasma Lactic Acid Britton 11.2 H* 11/05/18 11/05/18 11/05/18 11:46 11:46 14:05 WBC Neutrophils # Lymphocytes # ABG pCO2 27 L ABG pO2 113 H ABG HCO3 16 L ABG Total CO2 17 L ABG O2 Saturation 98.3 H Chloride 111 H Carbon Dioxide 15 L Glucose 228 H POC Glucose (mg/dL) Hemoglobin A1c 6.6 H Plasma Lactic Acid Britton 11/05/18 11/05/18 11/05/18 17:18 19:43 20:09 WBC Neutrophils # Lymphocytes # ABG pCO2 ABG pO2 ABG HCO3 ABG Total CO2 ABG O2 Saturation Chloride Carbon Dioxide Glucose POC Glucose (mg/dL) 210 H 207 H Hemoglobin A1c Plasma Lactic Acid Britton 5.8 H* 11/05/18 11/06/18 11/06/18 23:50 05:41 06:14 WBC 13.2 H Neutrophils # 12.1 H Lymphocytes # 0.8 L ABG pCO2 ABG pO2 ABG HCO3 ABG Total CO2 ABG O2 Saturation Chloride Carbon Dioxide Glucose POC Glucose (mg/dL) 160 H Hemoglobin A1c Plasma Lactic Acid Britton 3.8 H* 11/06/18 11/06/18 06:14 06:30 WBC Neutrophils # Lymphocytes # ABG pCO2 ABG pO2 ABG HCO3 ABG Total CO2 ABG O2 Saturation Chloride 115 H Carbon Dioxide Glucose 161 H POC Glucose (mg/dL) 175 H Hemoglobin A1c Plasma Lactic Acid Britton - Diagnostic Findings Chest x-ray: image reviewed CT scan - chest: image reviewed Assessment and Plan Plan: 1 right lower lobe pneumonia involving the posteriorsegment of the right lower lobe. The CAT scan was reviewed and there is also a questionable narrowing of the right lower lobe bronchus, consider mucous plugging/tracheal bronchomalacia. 2 mediastinal lymph node calcification with questionable bronchiolith adjacent to the right lower lobe bronchus, a marker of a previous granulomatous infection of the lung. 3 lactic acidosis, improving 4 acute hypoxic respiratory failure and shortness of breath secondary to above 5 chronic bronchial asthma with some exacerbation secondary to above 6 history paroxysmal atrial fibrillation currently in sinus rhythm 7 history of schizophrenia 8 hypertension 9 diabetes mellitus 10 hyperlipidemia 11 chronic lower extremity edema 12 previous history of left axillary abscess/cellulitis with MSSA post I&D 13 history of shingles 14 macular degeneration 15 history of coronary artery disease with 50% lesion in the LAD 16 peripheral neuropathy 17 chronic anxiety 18 chronic migraines. 19 peripheral neuropathy Plan Agree on the current antibiotic coverage with the possibility of need antibiotic coverage to Zosyn if no improvement in the right lower lobe pneumonia. It may be useful to the bronchoscopy at a later stage to evaluate the patency of the right lower lobe knowing that there is just lymph node calcification with possible bronchiolitis formation in the right lower lobe. Lactic acid level is improving. She is more stable compared to yesterday. We'll continue to follow.
[2018-11-06 11:48] LABS: Glucose,Whole Blood 171 mg/dL (75-99)
[2018-11-06 12:26] LABS: Appearance,Urine Clear (Clear); Bilirubin,Urine Negative (Negative); Blood,Urine Negative (Negative); Color,Urine Light Yellow; Glucose,Urine (UA) Negative (Negative); Ketones,Urine Negative (Negative); Leukocyte Esterase,Urine Negative (Negative); Nitrite,Urine Negative (Negative); Protein,Urine Negative (Negative); Specific Gravity,Urine 1.021 (1.001-1.035); Urobilinogen,Urine <2.0 mg/dL (<2.0)
[2018-11-06 17:13] LABS: Glucose,Whole Blood 151 mg/dL (75-99)
[2018-11-06 20:57] LABS: Glucose,Whole Blood 182 mg/dL (75-99)
[2018-11-06] MEDS: ATORVASTATIN 10 MG TAB PO SCH (21:49)
[2018-11-07] MEDS: IPRATROPIUM-ALBUTEROL 3 ML NEB INHALATION SCH ×5 (03:44→19:46)
[2018-11-07] MEDS: methylPREDNISolone SOD SUCCI 125 MG/2 ML VIAL IV SCH ×3 (06:09→17:04)
[2018-11-07] MEDS: SODIUM CHLORIDE 0.9% 1,000 ML IV SCH ×2 (06:10→19:49)
[2018-11-07 06:12] LABS: HCT 35.3 % (34.0-46.0); MCH 28.9 pg (25.0-35.0); MCHC 31.1 g/dL (31.0-37.0); Mean Platelet Volume 7.3; Platelet Count 263 k/uL (150-450); RBC 3.79 m/uL (3.80-5.40); RDW 13.4 % (11.5-15.5); WBC 13.5 k/uL (3.8-10.6)
[2018-11-07 06:21] LABS: Glucose,Whole Blood 188 mg/dL (75-99)
[2018-11-07 06:23] LABS: African American GFR (CKD) >90 (>60 ml/min/1.73 sqM); Anion Gap 6 mmol/L; Blood Urea Nitrogen 20 mg/dL (7-17); Calcium 8.8 mg/dL (8.4-10.2); Carbon Dioxide 23 mmol/L (22-30); Chloride 114 mmol/L (98-107); Glucose 174 mg/dL (74-99); Potassium 3.9 mmol/L (3.5-5.1); Sodium 143 mmol/L (137-145)
[2018-11-07] MEDS: INSULIN ASPART (NovoLOG) 100 UNIT/ML VIAL SQ SCH ×4 (06:58→21:28)
[2018-11-07] MEDS: GABAPENTIN 300 MG CAP PO SCH ×2 (08:31→17:04)
[2018-11-07] MEDS: OXYBUTYNIN XL 5 MG TAB.ER.24 PO SCH ×2 (08:31→19:47)
[2018-11-07] MEDS: guaiFENesin 600 MG TABLET.ER PO SCH ×2 (08:31→19:47)
[2018-11-07] MEDS: ISOSORBIDE MONONITRATE ER 60 MG TAB.ER.24H PO SCH (08:31)
[2018-11-07] MEDS: CITALOPRAM HYDROBROMIDE 20 MG TAB PO SCH (08:31)
[2018-11-07] MEDS: DIGOXIN 125 MCG TAB PO SCH (08:31)
[2018-11-07] MEDS: FUROSEMIDE 20 MG TAB PO SCH (08:31)
[2018-11-07] MEDS: AZITHROMYCIN 500 MG TAB PO SCH (08:32)
[2018-11-07] MEDS: cloZAPine 100 MG TAB PO SCH (08:32)
[2018-11-07] MEDS: METOPROLOL TARTRATE 25 MG TAB PO SCH ×2 (08:32→19:47)
[2018-11-07] MEDS: APIXABAN 5 MG TAB PO SCH ×2 (08:32→19:47)
--- NOTE | 2018-11-07 10:23 | XR ---
EXAMINATION TYPE: XR chest 1V DATE OF EXAM: 11/07/2018 COMPARISON: 11/05/2018 HISTORY: 63-year-old female acute respiratory failure with hypoxia TECHNIQUE: Single frontal view of the chest is obtained. FINDINGS: Heart upper limits of normal in size. Focal peripheral left basilar opacity. ACF hardware. IMPRESSION: Focal peripheral left basilar infiltrate, possible pneumonia.
[2018-11-07 11:57] LABS: Glucose,Whole Blood 174 mg/dL (75-99)
--- NOTE | 2018-11-07 13:22 | P.PN ---
Subjective Progress Note Date: 11/07/18 Patient seen and examined at bedside, reports that she's feeling a little bit better today. Patient continues on high flow nasal cannula @ 10L patient no longer tachycardicbut was overnight, afebrile overnight with a mild leukocytosis of 13.5 . nurses expressing concern that the patient might be volume overloaded, CT of the chest showing right lobe collapse and consolidation, with narrowing of the right middle lobe and right lower lobe bronchi, with possible mucus plugging. chest x-ray done today indicates focal peripheral left basilar infiltrate. Objective - Vital Signs Vital signs: Vital Signs Temp 97.8 F 11/07/18 12:17 Pulse 100 11/07/18 13:08 Resp 28 H 11/07/18 12:17 BP 122/70 11/07/18 12:17 Pulse Ox 90 L 11/07/18 12:17 Intake & Output 11/06/18 11/07/18 11/07/18 18:59 06:59 18:59 Intake Total 990 40 120 Output Total 300 Balance 690 40 120 Weight 92.6 kg Intake: IV 30 Invasive Line 1 30 Intake, IV Titration 40 Amount Sodium Chloride 0.9% 1, 40 000 ml @ 100 mls/hr IV . Q10H AMADA Rx#:[id number] Oral 960 120 Output: Urine 300 Other: Voiding Method Bedside Commode Bedside Commode Bedside Commode # Voids 1 1 - Exam Constitutional: No acute distress, conversant, pleasant Eyes: Anicteric sclerae, moist conjunctiva, no lid-lag, PERRLA ENMT: NC/AT,Oropharynx clear, no erythema, exudates Neck:Supple, FROM, no masses, or JVD, No carotid bruits; No thyromegaly Lungs: Diminished in the bases, left-sided rales and rhonchi, no crackles Cardiovascular: Heart regular in rate and rhythm, No murmurs, gallops, or rubs, +1.5 peripheral edema Abdominal: Soft Nontender, nom distended, no guarding, no rebound or rigidity, Normoactive bowel sounds No hepatomegaly, No splenomegaly, No palpable mass No abdominal wall hernia noted Skin: Normal temperature, tone, texture, turgor, No induration No subcutaneous nodules, No rash, lesions, No ulcers Extremities:No digital cyanosis No clubbing, Pedal pulses intact and symmetrical Radial pulses intact and symmetrical Normal gait and station, No calf tenderness Psychiatric: Alert and oriented to person, place and time, Appropriate affect Intact judgement Neuro: Muscles Strength 5/5 in all 4 extremities, Sensation to light touch grossly present throughout, Cranial nerves II-XII grossly intact. No focal sensory deficits - Labs CBC & Chem 7: 11/07/18 05:52 11/07/18 05:52 Labs: Abnormal Lab Results - Last 24 Hours (Table) 11/06/18 11/06/18 11/07/18 Range/Units 16:57 20:56 05:52 WBC 13.5 H (3.8-10.6) k/uL RBC 3.79 L (3.80-5.40) m/uL Hgb 11.0 L (11.4-16.0) gm/dL Chloride (98-107) mmol/L BUN (7-17) mg/dL Glucose (74-99) mg/dL POC Glucose (mg/dL) 151 H 182 H (75-99) mg/dL 11/07/18 11/07/18 11/07/18 Range/Units 05:52 06:19 11:55 WBC (3.8-10.6) k/uL RBC (3.80-5.40) m/uL Hgb (11.4-16.0) gm/dL Chloride 114 H (98-107) mmol/L BUN 20 H (7-17) mg/dL Glucose 174 H (74-99) mg/dL POC Glucose (mg/dL) 188 H 174 H (75-99) mg/dL Microbiology - Last 24 Hours (Table) 11/05/18 01:30 Blood Culture - Preliminary Blood No Growth after 48 hours Assessment and Plan (1) Severe sepsis Narrative/Plan: * The patient respiratory failure due to severe pneumonia with mucous plugging and COPD exacerbation * Remains normotensive and tachycardia has resolved, metabolic acidosis/ lactic acidosis is improving we'll discontinue any further rechecks at this time * Patient remains afebrile, mild leukocytosis (possibly secondary to steroids) * Continue empiric IV antibiotics with azithromycin and Rocephin Current Visit: Yes Status: Acute Code(s): A41.9 - SEPSIS, UNSPECIFIED ORGANISM; R65.20 - SEVERE SEPSIS WITHOUT SEPTIC SHOCK SNOMED Code(s): 31841023 (2) Acute respiratory failure with hypoxia Narrative/Plan: * Multifactorial secondary to community-acquired pneumonia in the setting of a cute COPD exacerbation with possible mucus plugging * Continue supplemental oxygen currently on high flow to maintain oxygen saturations * Continue breathing treatments * Pulmonary has been consulted to evaluate for possible bronchoscopy Current Visit: Yes Status: Acute Code(s): J96.01 - ACUTE RESPIRATORY FAILURE WITH HYPOXIA SNOMED Code(s): 86891197 (3) Community acquired pneumonia Current Visit: Yes Status: Acute Code(s): J18.9 - PNEUMONIA, UNSPECIFIED ORGANISM SNOMED Code(s): 595291838 (4) COPD with acute exacerbation Narrative/Plan: * Triggered by pneumonia and sepsis * Continue systemic steroids with Solu-Medrol 60 mg iv q 6, continue A/A Duo nebs Q 4 and PRN Current Visit: Yes Status: Acute Code(s): J44.1 - CHRONIC OBSTRUCTIVE PULMON JAMARCUS DISEASE W (ACUTE) EXACERBATION SNOMED Code(s): 182449892 (5) Essential hypertension Narrative/Plan: * Blood pressure stable controlled on current home regimen * Continue metoprolol and Lasix Current Visit: Yes Status: Acute Code(s): I10 - ESSENTIAL (PRIMARY) HYPERTENSION SNOMED Code(s): 67555088 Plan: * Disposition * Anticipated discharge 2-3 days * Follow up with consultants recommendations
--- NOTE | 2018-11-07 14:58 | P.PN ---
Subjective Progress Note Date: 11/07/18 Principal diagnosis: Right lower lobe pneumonia 63-year-old female patient was hospitalized for a right lower lobe pneumonia. The patient lives in an AFC home and she is known to have asthma chronic paroxysmal atrial fibrillation maintained on long-term medical condition with E liquis, hypertension and hyperlipidemia. She is also known to have coronary artery disease. 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 Has been expressing increased dyspnea cough venous sputum production of fever and chills. She was admitted to the hospital and she was diagnosed having a right lower lobe pneumonia pH of present with some pleuritic chest pain increased shortness of breath. She was given Rocephin and Zithromax and admitted to the medical floor. Initial lactic acid level was at 2.8. Subsequently overnight lactic acid level gradually went up. Lactic acid level peaked at 11.2 and subsequently dropped down to 3.8. During this time the patient was receiving IV antibiotics and fluids. She continued to be awake and alert and there was no lethargy or altered mentation. No further worsening in respiratory distress. A review the CAT scan of the chest that was on overnight and is clearly shows a right lower lobe pneumonia involving the posterior-superior segment which obviously raises the concern for aspiration. Nevertheless, the patient seems to be swallowing her food fine without any major difficulties. This morning, she is on 9 L of oxygen by nasal cannula with a pulse ox of 93% she is afebrile she is not tachycardic and her heart rate is sinus at the rate of 90. No nausea. No vomi ting. No abdominal pain. He is receiving also IV fluids with normal state rate of 100 mL an hour. Overnight she was given more fluids and lites fluid balance is +2.5 L. The patient is seen today 11/07/2018 in follow-up on the selective care unit. She is currently resting comfortably in bed. Awake and alert in no acute distress. She still has a loose nonproductive cough. Requiring 10 L high flow nasal cannula to maintain O2 saturations in the 90s. Somewhat tachypneic. Currently afebrile. Hemodynamically stable. His x-ray continues to show focal peripheral left basilar infiltrate. Blood culture showing no growth thus far. White count 13.5. Hemoglobin 11.0. Creatinine 0.77. ProBNP 1920. Currently on DuoNeb inhalations, ceftriaxone and azithromycin, IV Solu-Medrol. Objective - Vital Signs Vital signs: Vital Signs Temp 97.8 F 11/07/18 12:17 Pulse 100 11/07/18 13:08 Resp 28 H 11/07/18 12:17 BP 122/70 11/07/18 12:17 Pulse Ox 90 L 11/07/18 12:17 Intake & Output 11/06/18 11/07/18 11/07/18 18:59 06:59 18:59 Intake Total 990 40 120 Output Total 300 Balance 690 40 120 Weight 92.6 kg Intake: IV 30 Invasive Line 1 30 Intake, IV Titration 40 Amount Sodium Chloride 0.9% 1, 40 000 ml @ 100 mls/hr IV . Q10H AMADA Rx#:[id number] Oral 960 120 Output: Urine 300 Other: Voiding Method Bedside Commode Bedside Commode Bedside Commode # Voids 1 1 - Exam General:, Pleasant 63-year-old female patient in mild respirator distress, requiring 10 L high flow nasal cannula to maintain O2 saturations in the 90s. Derm: no unusual rashes/lesions no unusual ecchymoses, warm, dry Head: Head exam was generally normal. There was no scleral icterus or corneal arcus. Mucous membranes were moist. Eyes: Neck was supple and without jugular venous distension, thyromegaly, or carotid bruits. Carotids were easily palpable bilaterally. There was no adenopathy. Mouth: no lip lesion, mucus membranes moist Cardiovascular: S1S2 reg, mildly tachycardic, no murmur, positive posterior tibial pulse bilateral, 1+ sukhjinder LE pitting edema, capillary refill less than 2 seconds Lungs: Bilateral wheezing w/ coarse breath sounds diffusely, no accessory muscle use and there are coarse crackles in lung bases mainly on the right lung base. Abdominal: soft, nontender to palpation, no guarding, no appreciable organomegaly, normal bowel sounds Ext: no gross muscle atrophy, muscle strength 5 out of 5 in all 4 extremities grossly, no contractures, Neuro: CN II-XI grossly intact, light touch intact all 4 extremities, finger to nose within normal limits, Psych: Alert, oriented, appropriate affect Examination of the skin revealed no evidence of significant rashes, suspicious appearing nevi or other concerning lesions. - Labs CBC & Chem 7: 11/07/18 05:52 11/07/18 05:52 Labs: Abnormal Lab Results - Last 24 Hours (Table) 11/06/18 11/06/18 11/07/18 Range/Units 16:57 20:56 05:52 WBC 13.5 H (3.8-10.6) k/uL RBC 3.79 L (3.80-5.40) m/uL Hgb 11.0 L (11.4-16.0) gm/dL Chloride (98-107) mmol/L BUN (7-17) mg/dL Glucose (74-99) mg/dL POC Glucose (mg/dL) 151 H 182 H (75-99) mg/dL 11/07/18 11/07/18 11/07/18 Range/Units 05:52 06:19 11:55 WBC (3.8-10.6) k/uL RBC (3.80-5.40) m/uL Hgb (11.4-16.0) gm/dL Chloride 114 H (98-107) mmol/L BUN 20 H (7-17) mg/dL Glucose 174 H (74-99) mg/dL POC Glucose (mg/dL) 188 H 174 H (75-99) mg/dL Microbiology - Last 24 Hours (Table) 11/05/18 01:30 Blood Culture - Preliminary Blood No Growth after 48 hours Assessment and Plan Assessment: Impression: 1 right lower lobe pneumonia involving the posteriorsegment of the right lower lobe. The CAT scan was reviewed and there is also a questionable narrowing of the right lower lobe bronchus, consider mucous plugging/tracheal bronchomalacia. 2 mediastinal lymph node calcification with questionable bronchiolith adjacent to the right lower lobe bronchus, a marker of a previous granulomatous infection of the lung. 3 lactic acidosis, improving 4 acute hypoxic respiratory failure and shortness of breath secondary to above 5 chronic bronchial asthma with some exacerbation secondary to above 6 history paroxysmal atrial fibrillation currently in sinus rhythm 7 history of schizophrenia 8 hypertension 9 diabetes mellitus 10 hyperlipidemia 11 chronic lower extremity edema 12 previous history of left axillary abscess/cellulitis with MSSA post I&D 13 history of shingles 14 macular degeneration 15 history of coronary artery disease with 50% lesion in the LAD 16 peripheral neuropathy 17 chronic anxiety 18 chronic migraines. 19 peripheral neuropathy Plan: The patient was seen and evaluated by Dr. Ozuna. We'll continue with the current treatment plan for now including ceftriaxone and azithromycin, bronchodilators and IV Solu-Medrol. She may benefit from a bronchoscopy with BAL if no significant improvement. Titrate down the FiO2 as tolerated. We'll continue to follow. I, the cosigning physician, performed a history & physical examination of the patient. Lungs sounds bilateral scattered rhonchi, crackles in the right posterior base. Maintaining good O2 saturations in the 90s on 10 L high flow nasal cannula.. I discussed the assessment and plan of care with my nurse practitioner, Fernanda Mendoza. I attest to the above note as dictated by her.
[2018-11-07 17:08] LABS: Glucose,Whole Blood 199 mg/dL (75-99)
[2018-11-07] MEDS: ATORVASTATIN 10 MG TAB PO SCH (19:47)
[2018-11-07 21:03] LABS: Glucose,Whole Blood 189 mg/dL (75-99)
[2018-11-08] MEDS: IPRATROPIUM-ALBUTEROL 3 ML NEB INHALATION SCH ×7 (00:27→23:27)
[2018-11-08] MEDS: methylPREDNISolone SOD SUCCI 125 MG/2 ML VIAL IV SCH ×5 (02:36→23:53)
[2018-11-08] MEDS: SODIUM CHLORIDE 0.9% 1,000 ML IV SCH ×3 (02:39→23:51)
[2018-11-08 06:12] LABS: Glucose,Whole Blood 208 mg/dL (75-99)
[2018-11-08] MEDS: INSULIN ASPART (NovoLOG) 100 UNIT/ML VIAL SQ SCH ×4 (06:56→21:28)
[2018-11-08] MEDS: FUROSEMIDE 20 MG TAB PO SCH (07:50)
[2018-11-08] MEDS: AZITHROMYCIN 500 MG TAB PO SCH (07:50)
[2018-11-08] MEDS: ISOSORBIDE MONONITRATE ER 60 MG TAB.ER.24H PO SCH (07:50)
[2018-11-08] MEDS: OXYBUTYNIN XL 5 MG TAB.ER.24 PO SCH ×2 (07:50→21:29)
[2018-11-08] MEDS: APIXABAN 5 MG TAB PO SCH ×2 (07:50→21:28)
[2018-11-08] MEDS: GABAPENTIN 300 MG CAP PO SCH ×2 (07:50→17:46)
[2018-11-08] MEDS: DIGOXIN 125 MCG TAB PO SCH (07:51)
[2018-11-08] MEDS: guaiFENesin 600 MG TABLET.ER PO SCH ×2 (07:51→21:28)
[2018-11-08] MEDS: METOPROLOL TARTRATE 25 MG TAB PO SCH ×2 (07:51→21:28)
[2018-11-08] MEDS: cloZAPine 100 MG TAB PO SCH (07:51)
[2018-11-08] MEDS: CITALOPRAM HYDROBROMIDE 20 MG TAB PO SCH (07:51)
[2018-11-08 11:40] LABS: Glucose,Whole Blood 241 mg/dL (75-99)
--- NOTE | 2018-11-08 14:02 | P.PN ---
Subjective Progress Note Date: 11/08/18 Principal diagnosis: Patient seen and examined at bedside, reports that she's feeling a little bit better today. Patient continues on high flow nasal cannula @ 9. Serum lactate still elevated at 3.8 last night, patient no longer tachycardic, afebrile overnight with a mild leukocytosis of 13.[address] of the chest showing right lobe collapse and consolidation, with narrowing of the right middle lobe and right lower lobe bronchi, with possible mucus plugging. Patient seen and examined at bedside sitting up in chair, still short of breath but reports that she is doing fine, patient having increasing O2 requirements up to 13 L high flow cannula with borderline acceptable oxygen saturations of high 80s to low 90s. Pulmonary following Objective - Vital Signs Vital signs: Vital Signs Temp 97.5 F L 11/08/18 12:13 Pulse 79 11/08/18 12:13 Resp 24 11/08/18 12:13 BP 132/71 11/08/18 12:13 Pulse Ox 93 L 11/08/18 12:13 Intake & Output 11/07/18 11/08/18 11/08/18 18:59 06:59 18:59 Intake Total 600 0 Balance 600 0 Weight 93.2 kg Intake: Oral 600 0 Other: Voiding Method Bedside Commode Bedside Commode Bedside Commode # Voids 2 1 - Exam Constitutional: Moderate respiratory distress, conversant, pleasant Eyes: Anicteric sclerae, moist conjunctiva, no lid-lag, PERRLA ENMT: NC/AT,Oropharynx clear, no erythema, exudates Neck:Supple, FROM, no masses, or JVD, No carotid bruits; No thyromegaly Lungs: Coarse airway sounds Diminished in the bases, left-sided rales and rhonchi, no crackles on 13 L high flow nasal cannula Cardiovascular: Heart regular in rate and rhythm, No murmurs, gallops, or rubs, +1.5 peripheral edema Abdominal: Soft Nontender, nom distended, no guarding, no rebound or rigidity, Normoactive bowel sounds No hepatomegaly, No splenomegaly, No palpable mass No abdominal wall hernia noted Skin: Normal temperature, tone, texture, turgor, No induration No subcutaneous nodules, No rash, lesions, No ulcers Extremities:No digital cyanosis No clubbing, Pedal pulses intact and symmetri christina Radial pulses intact and symmetrical Normal gait and station, No calf tenderness Psychiatric: Alert and oriented to person, place and time, Appropriate affect Intact judgement Neuro: Muscles Strength 5/5 in all 4 extremities, Sensation to light touch grossly present throughout, Cranial nerves II-XII grossly intact. No focal sensory deficits - Labs CBC & Chem 7: 11/07/18 05:52 11/07/18 05:52 Labs: Abnormal Lab Results - Last 24 Hours (Table) 11/07/18 11/07/18 11/08/18 Range/Units 16:53 20:45 06:11 POC Glucose (mg/dL) 199 H 189 H 208 H (75-99) mg/dL 11/08/18 Range/Units 11:26 POC Glucose (mg/dL) 241 H (75-99) mg/dL Microbiology - Last 24 Hours (Table) 11/05/18 01:30 Blood Culture - Preliminary Blood No Growth after 72 hours Assessment and Plan (1) Severe sepsis Narrative/Plan: * The patient respiratory failure due to severe pneumonia with mucous plugging and COPD exacerbation * Remains normotensive and tachycardia has resolved, metabolic acidosis/ lactic acidosis is improving we'll discontinue any further rechecks at this time * Patient remains afebrile, mild leukocytosis (possibly secondary to steroids) * Continue empiric IV antibiotics with azithromycin and Rocephin Current Visit: Yes Status: Acute Code(s): A41.9 - SEPSIS, UNSPECIFIED ORGANISM; R65.20 - SEVERE SEPSIS WITHOUT SEPTIC SHOCK SNOMED Code(s): 43109936 (2) Acute respiratory failure with hypoxia Narrative/Plan: * Multifactorial secondary to community-acquired pneumonia in the setting of acute COPD exacerbation with possible mucus plugging (continue CPT therapy) * Continue supplemental oxygen currently on high flow with increasing O2 requirements up to 13 L now * Continue breathing treatments * Pulmonary has been consulted to evaluate for possible bronchoscopy hopefully they will proceed with that today or tomorrow Current Visit: Yes Status: Acute Code(s): J96.01 - ACUTE RESPIRATORY FAILURE WITH HYPOXIA SNOMED Code(s): 38395973 (3) Community acquired pneumonia Current Visit: Yes Status: Acute Code(s): J18.9 - PNEUMONIA, UNSPECIFIED ORGANISM SNOMED Code(s): 682148225 (4) COPD with acute exacerbation Narrative/Plan: * Triggered by pneumonia and sepsis * Continue systemic steroids with Solu-Medrol 60 mg iv q 6, continue A/A Duo nebs Q 4 and PRN Current Visit: Yes Status: Acute Code(s): J44.1 - CHRONIC OBSTRUCTIVE PULMONARY DISEASE W (ACUTE) EXACERBATION SNOMED Code(s): 463659579 (5) Essential hypertension Narrative/Plan: * Blood pressure stable controlled on current home regimen * Continue metoprolol and Lasix Current Visit: Yes Status: Acute Code(s): I10 - ESSENTIAL (PRIMARY) HYPERTENSION SNOMED Code(s): 17922483 Plan: * Disposition * Anticipated discharge to be determined by course * Follow up with consultants recommendations hopefully patient can have a bronchoscopy tomorrow
--- NOTE | 2018-11-08 15:38 | P.PN ---
Subjective Progress Note Date: 11/08/18 Principal diagnosis: Right lower lobe pneumonia 63-year-old female patient was hospitalized for a right lower lobe pneumonia. The patient lives in an AFC home and she is known to have asthma chronic paroxysmal atrial fibrillation maintained on long-term medical condition with E liquis, hypertension and hyperlipidemia. She is also known to have coronary artery disease. 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 Has been expressing increased dyspnea cough venous sputum production of fever and chills. She was admitted to the hospital and she was diagnosed having a right lower lobe pneumonia pH of present with some pleuritic chest pain increased shortness of breath. She was given Rocephin and Zithromax and admitted to the medical floor. Initial lactic acid level was at 2.8. Subsequently overnight lactic acid level gradually went up. Lactic acid level peaked at 11.2 and subsequently dropped down to 3.8. During this time the patient was receiving IV antibiotics and fluids. She continued to be awake and alert and there was no lethargy or altered mentation. No further worsening in respiratory distress. A review the CAT scan of the chest that was on overnight and is clearly shows a right lower lobe pneumonia involving the posterior-superior segment which obviously raises the concern for aspiration. Nevertheless, the patient seems to be swallowing her food fine without any major difficulties. This morning, she is on 9 L of oxygen by nasal cannula with a pulse ox of 93% she is afebrile she is not tachycardic and her heart rate is sinus at the rate of 90. No nausea. No vomi ting. No abdominal pain. He is receiving also IV fluids with normal state rate of 100 mL an hour. Overnight she was given more fluids and lites fluid balance is +2.5 L. The patient is seen today 11/07/2018 in follow-up on the selective care unit. She is currently resting comfortably in bed. Awake and alert in no acute distress. She still has a loose nonproductive cough. Requiring 10 L high flow nasal cannula to maintain O2 saturations in the 90s. Somewhat tachypneic. Currently afebrile. Hemodynamically stable. His x-ray continues to show focal peripheral left basilar infiltrate. Blood culture showing no growth thus far. White count 13.5. Hemoglobin 11.0. Creatinine 0.77. ProBNP 1920. Currently on DuoNeb inhalations, ceftriaxone and azithromycin, IV Solu-Medrol. The patient is seen today 11/08/2018 in follow-up on the selective care unit. She remains awake and alert. She continues with a loose congested cough. No able to expectorate small amounts. She remains quite hypoxic requiring 15 L high flow nasal cannula. She's been afebrile. Hemodynamically stable. She is continued on bronchodilators, IV Solu-Medrol, antibiotics in the form of ceftriaxone and azithromycin. Blood culture reveals no growth. The plan is for bronchoscopy with BAL tomorrow morning. Objective - Vital Signs Vital signs: Vital Signs Temp 97.5 F L 11/08/18 12:13 Pulse 79 11/08/18 12:13 Resp 24 11/08/18 12:13 BP 132/71 11/08/18 12:13 Pulse Ox 93 L 11/08/18 12:13 Intake & Output 11/07/18 11/08/18 11/08/18 18:59 06:59 18:59 Intake Total 600 0 Balance 600 0 Weight 93.2 kg Intake: Oral 600 0 Other: Voiding Method Bedside Commode Bedside Commode Bedside Commode # Voids 2 1 - Exam General:, Pleasant 63-year-old female patient in mild respiratory distress, requiring 15 L high flow nasal cannula to maintain O2 saturations in the 90s. Derm: no unusual rashes/lesions no unusual ecchymoses, warm, dry Head: Head exam was generally normal. There was no scleral icterus or corneal arcus. Mucous membranes were moist. Eyes: Neck was supple and without jugular venous distension, thyromegaly, or carotid bruits. Carotids were easily palpable bilaterally. There was no adenopathy. Mouth: no lip lesion, mucus membranes moist Cardiovascular: S1S2 reg, mildly tachycardic, no murmur, positive posterior tibial pulse bilateral, 1+ sukhjinder LE pitting edema, capillary refill less than 2 seconds Lungs: Bilateral wheezing w/ coarse breath sounds diffusely, no accessory muscle use and there are coarse crackles in lung bases mainly on the right lung base. Abdominal: soft, nontender to palpation, no guarding, no appreciable organomeg cari, normal bowel sounds Ext: no gross muscle atrophy, muscle strength 5 out of 5 in all 4 extremities grossly, no contractures, Neuro: CN II-XI grossly intact, light touch intact all 4 extremities, finger to nose within normal limits, Psych: Alert, oriented, appropriate affect Examination of the skin revealed no evidence of significant rashes, suspicious appearing nevi or other concerning lesions. - Labs CBC & Chem 7: 11/07/18 05:52 11/07/18 05:52 Labs: Abnormal Lab Results - Last 24 Hours (Table) 11/07/18 11/07/18 11/08/18 Range/Units 16:53 20:45 06:11 POC Glucose (mg/dL) 199 H 189 H 208 H (75-99) mg/dL 11/08/18 Range/Units 11:26 POC Glucose (mg/dL) 241 H (75-99) mg/dL Microbiology - Last 24 Hours (Table) 11/05/18 01:30 Blood Culture - Preliminary Blood No Growth after 72 hours Assessment and Plan Assessment: Impression: 1 right lower lobe pneumonia involving the posteriorsegment of the right lower lobe. The CAT scan was reviewed and there is also a questionable narrowing of the right lower lobe bronchus, consider mucous plugging/tracheal bronchomalacia. The plan is for bronchoscopy with BAL 11/09/2017. 2 mediastinal lymph node calcification with questionable bronchiolith adjacent to the right lower lobe bronchus, a marker of a previous granulomatous infection of the lung. 3 lactic acidosis, improving 4 acute hypoxic respiratory failure and shortness of breath secondary to above 5 chronic bronchial asthma with some exacerbation secondary to above 6 history paroxysmal atrial fibrillation currently in sinus rhythm 7 history of schizophrenia 8 hypertension 9 diabetes mellitus 10 hyperlipidemia 11 chronic lower extremity edema 12 previous history of left axillary abscess/cellulitis with MSSA post I&D 13 history of shingles 14 macular degeneration 15 history of coronary artery disease with 50% lesion in the LAD 16 peripheral neuropathy 17 chronic anxiety 18 chronic migraines. 19 peripheral neuropathy Plan: The patient was seen and evaluated by Dr. Ozuna. We will plan for bronchoscopy with BAL in the a.m. We'll continue with the current treatment plan for now including ceftriaxone and azithromycin, bronchodilators and IV Solu-Medrol. Titrate down the FiO2 as tolerated. We'll continue to follow and make further recommendations based on her clinical status. I, the cosigning physician, performed a history & physical examination of the patient. Lungs sounds bilateral scattered rhonchi, crackles in the right posterior base. Maintaining good O2 saturations in the 90s on 15 L high flow nasal cannula.. I discussed the assessment and plan of care with my nurse practitioner, Fernanda Mendoza. I attest to the above note as dictated by her.
[2018-11-08 17:17] LABS: Glucose,Whole Blood 165 mg/dL (75-99)
[2018-11-08 21:01] LABS: Glucose,Whole Blood 237 mg/dL (75-99)
[2018-11-08] MEDS: ATORVASTATIN 10 MG TAB PO SCH (21:28)
[2018-11-09] MEDS: IPRATROPIUM-ALBUTEROL 3 ML NEB INHALATION SCH ×6 (04:14→23:37)
[2018-11-09] MEDS: methylPREDNISolone SOD SUCCI 125 MG/2 ML VIAL IV SCH ×4 (06:35→23:42)
[2018-11-09] MEDS: INSULIN ASPART (NovoLOG) 100 UNIT/ML VIAL SQ SCH ×4 (06:39→21:59)
[2018-11-09 06:47] LABS: Glucose,Whole Blood 177 mg/dL (75-99)
[2018-11-09 06:58] LABS: Basophils % (A) 0 %; Eosinophils # (A) 0.1 k/uL (0-0.7); Eosinophils % (A) 1 %; HCT 35.7 % (34.0-46.0); HGB 11.6 gm/dL (11.4-16.0); Lymphocytes # (A) 0.9 k/uL (1.0-4.8); Lymphocytes % (A) 9 %; MCH 29.8 pg (25.0-35.0); MCHC 32.6 g/dL (31.0-37.0); MCV 91.6 fL (80.0-100.0); Mean Platelet Volume 7.4; Monocytes # (A) 0.2 k/uL (0-1.0); Monocytes % (A) 2 %; Neutrophils % (A) 88 %; Platelet Count 242 k/uL (150-450); RDW 13.4 % (11.5-15.5); WBC 10.3 k/uL (3.8-10.6)
[2018-11-09] MEDS: SODIUM CHLORIDE 0.9% 1,000 ML IV SCH ×2 (07:56→23:42)
[2018-11-09] MEDS: GABAPENTIN 300 MG CAP PO SCH ×2 (11:34→16:43)
[2018-11-09] MEDS: guaiFENesin 600 MG TABLET.ER PO SCH ×2 (11:35→21:58)
[2018-11-09 12:21] LABS: Glucose,Whole Blood 191 mg/dL (75-99)
[2018-11-09] MEDS ORDERED: LIDOCAINE 1% INJ 10MG/ML (20 ML MDV) ONE (12:33)
[2018-11-09] MEDS ORDERED: PROPOFOL 10 MG/ML 20 ML VIAL IV ONE (12:33)
[2018-11-09] MEDS ORDERED: LIDOCAINE 2% INJ 20 MG/ML INTRATRACH ONE (12:55)
[2018-11-09] MEDS ORDERED: IV FLUID CONTINUATION 1,000 ML IV ONE (12:59)
--- NOTE | 2018-11-09 13:30 | P.PN ---
Subjective Progress Note Date: 11/09/18 Principal diagnosis: Right lower lobe pneumonia 63-year-old female patient was hospitalized for a right lower lobe pneumonia. The patient lives in an AFC home and she is known to have asthma chronic paroxysmal atrial fibrillation maintained on long-term medical condition with E liquis, hypertension and hyperlipidemia. She is also known to have coronary artery disease. 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 Has been expressing increased dyspnea cough venous sputum production of fever and chills. She was admitted to the hospital and she was diagnosed having a right lower lobe pneumonia pH of present with some pleuritic chest pain increased shortness of breath. She was given Rocephin and Zithromax and admitted to the medical floor. Initial lactic acid level was at 2.8. Subsequently overnight lactic acid level gradually went up. Lactic acid level peaked at 11.2 and subsequently dropped down to 3.8. During this time the patient was receiving IV antibiotics and fluids. She continued to be awake and alert and there was no lethargy or altered mentation. No further worsening in respiratory distress. A review the CAT scan of the chest that was on overnight and is clearly shows a right lower lobe pneumonia involving the posterior-superior segment which obviously raises the concern for aspiration. Nevertheless, the patient seems to be swallowing her food fine without any major difficulties. This morning, she is on 9 L of oxygen by nasal cannula with a pulse ox of 93% she is afebrile she is not tachycardic and her heart rate is sinus at the rate of 90. No nausea. No vomi ting. No abdominal pain. He is receiving also IV fluids with normal state rate of 100 mL an hour. Overnight she was given more fluids and lites fluid balance is +2.5 L. The patient is seen today 11/07/2018 in follow-up on the selective care unit. She is currently resting comfortably in bed. Awake and alert in no acute distress. She still has a loose nonproductive cough. Requiring 10 L high flow nasal cannula to maintain O2 saturations in the 90s. Somewhat tachypneic. Currently afebrile. Hemodynamically stable. His x-ray continues to show focal peripheral left basilar infiltrate. Blood culture showing no growth thus far. White count 13.5. Hemoglobin 11.0. Creatinine 0.77. ProBNP 1920. Currently on DuoNeb inhalations, ceftriaxone and azithromycin, IV Solu-Medrol. The patient is seen today 11/08/2018 in follow-up on the selective care unit. She remains awake and alert. She continues with a loose congested cough. No able to expectorate small amounts. She remains quite hypoxic requiring 15 L high flow nasal cannula. She's been afebrile. Hemodynamically stable. She is continued on bronchodilators, IV Solu-Medrol, antibiotics in the form of ceftriaxone and azithromycin. Blood culture reveals no growth. The plan is for bronchoscopy with BAL tomorrow morning. The patient is seen today 11/09/2018 in follow-up on the selective care unit. She is awake and alert in no acute distress. Breathing a little bit easier today as compared to yesterday. Still with a loose nonproductive cough. Quite congested. She is down to 10 L high flow nasal cannula and maintaining good O2 saturations in the upper 90s. She's been afebrile. Hemodynamically stable. She remains on ceftriaxone and azithromycin. The plan is for bronchoscopy with BAL today. Objective - Vital Signs Vital signs: Vital Signs Temp 97.7 F 11/09/18 11:58 Pulse 77 11/09/18 11:58 Resp 24 11/09/18 11:58 BP 139/75 11/09/18 12:00 Pulse Ox 96 11/09/18 11:58 Intake & Output 11/08/18 11/09/18 11/09/18 18:59 06:59 18:59 Intake Total 200 100 Balance 200 100 Weight 91.5 kg Intake: IV 100 Oral 200 0 Other: Voiding Method Bedside Commode Bedside Commode Bedside Commode # Voids 3 1 - Exam General:, Pleasant 63-year-old female patient in mild respiratory distress, requiring 10 L high flow nasal cannula to maintain O2 saturations in the 90s. Derm: no unusual rashes/lesions no unusual ecchymoses, warm, dry Head: Head exam was generally normal. There was no scleral icterus or corneal arcus. Mucous membranes were moist. Eyes: Neck was supple and without jugular venous distension, thyromegaly, or carotid bruits. Carotids were easily palpable bilaterally. There was no adenopathy. Mouth: no lip lesion, mucus membranes moist Cardiovascular: S1S2 reg, mildly tachycardic, no murmur, positive posterior tibial pulse bilateral, 1+ sukhjinder LE pitting edema, capillary refill less than 2 seconds Lungs: Bilateral wheezing w/ coarse breath sounds diffusely, no accessory muscle use and there are coarse crackles in lung bases mainly on the right lung base. Abdominal: soft, nontender to palpation, no guarding, no appreciable organomeg cari, normal bowel sounds Ext: no gross muscle atrophy, muscle strength 5 out of 5 in all 4 extremities grossly, no contractures, Neuro: CN II-XI grossly intact, light touch intact all 4 extremities, finger to nose within normal limits, Psych: Alert, oriented, appropriate affect Examination of the skin revealed no evidence of significant rashes, suspicious appearing nevi or other concerning lesions. - Labs CBC & Chem 7: 11/09/18 06:39 11/07/18 05:52 Labs: Abnormal Lab Results - Last 24 Hours (Table) 11/08/18 11/08/18 11/09/18 Range/Units 17:09 21:00 06:36 Neutrophils # (1.3-7.7) k/uL Lymphocytes # (1.0-4.8) k/uL POC Glucose (mg/dL) 165 H 237 H 177 H (75-99) mg/dL 11/09/18 11/09/18 Range/Units 06:39 12:03 Neutrophils # 9.0 H (1.3-7.7) k/uL Lymphocytes # 0.9 L (1.0-4.8) k/uL POC Glucose (mg/dL) 191 H (75-99) mg/dL Microbiology - Last 24 Hours (Table) 11/05/18 01:30 Blood Culture - Preliminary Blood No Growth after 96 hours Assessment and Plan Assessment: Impression: 1 right lower lobe pneumonia involving the posterior segment of the right lower lobe. The CAT scan was reviewed and there is also a questionable narrowing of the right lower lobe bronchus, consider mucous plugging/tracheal bronchomalacia. The plan is for bronchoscopy with BAL today. 2 mediastinal lymph node calcification with questionable bronchiolith adjacent to the right lower lobe bronchus, a marker of a previous granulomatous infection of the lung. 3 lactic acidosis, improving 4 acute hypoxic respiratory failure and shortness of breath secondary to above 5 chronic bronchial asthma with some exacerbation secondary to above 6 history paroxysmal atrial fibrillation currently in sinus rhythm 7 history of schizophrenia 8 hypertension 9 diabetes mellitus 10 hyperlipidemia 11 chronic lower extremity edema 12 previous history of left axillary abscess/cellulitis with MSSA post I&D 13 history of shingles 14 macular degeneration 15 history of coronary artery disease with 50% lesion in the LAD 16 peripheral neuropathy 17 chronic anxiety 18 chronic migraines. 19 peripheral neuropathy Plan: The patient was seen and evaluated by Dr. Ozuna. We will plan for bronchoscopy with BAL today. Continue to titrate down the FiO2 as tolerated. We'll continue with the current treatment plan for now including ceftriaxone and azithromycin, bronchodilators and IV Solu-Medrol. We'll continue to follow and make further recommendations based on her clinical status. I, the cosigning physician, performed a history & physical examination of the patient. Lungs sounds bilateral scattered rhonchi, crackles in the right posterior base. Maintaining good O2 saturations in the 90s on 10 L high flow nasal cannula.. I discussed the assessment and plan of care with my nurse practitioner, Fernanda Mendoza. I attest to the above note as dictated by her.
--- NOTE | 2018-11-09 16:20 | P.PN ---
Subjective Progress Note Date: 11/09/18 Patient seen and examined at bedside sitting up in chair, still short of breath but reports that she is doing fine, patient having increasing O2 requirements up to 10 L high flow cannula with borderline acceptable oxygen saturations of high 80s to low 90s. Pulmonary following plan for bronchoscopy with BAL today Objective - Vital Signs Vital signs: Vital Signs Temp 97.7 F 11/09/18 11:58 Pulse 70 11/09/18 15:37 Resp 24 11/09/18 11:58 BP 139/75 11/09/18 12:00 Pulse Ox 94 L 11/09/18 15:23 Intake & Output 11/08/18 11/09/18 11/09/18 18:59 06:59 18:59 Intake Total 200 340 Balance 200 340 Weight 91.5 kg Intake: IV 100 Oral 200 240 Other: Voiding Method Bedside Commode Bedside Commode Bedside Commode # Voids 3 1 - Exam Constitutional: Moderate respiratory distress, conversant, pleasant Eyes: Anicteric sclerae, moist conjunctiva, no lid-lag, PERRLA ENMT: NC/AT,Oropharynx clear, no erythema, exudates Neck:Supple, FROM, no masses, or JVD, No carotid bruits; No thyromegaly Lungs: Coarse airway sounds Diminished in the bases, left-sided rales and rhonchi, no crackles on 13 L high flow nasal cannula Cardiovascular: Heart regular in rate and rhythm, No murmurs, gallops, or rubs, +1.5 peripheral edema Abdominal: Soft Nontender, nom distended, no guarding, no rebound or rigidity, Normoactive bowel sounds No hepatomegaly, No splenomegaly, No palpable mass No abdominal wall hernia noted Skin: Normal temperature, tone, texture, turgor, No induration No subcutaneous nodules, No rash, lesions, No ulcers Extremities:No digital cyanosis No clubbing, Pedal pulses intact and symmetrical Radial pulses intact and symmetrical Normal gait and station, No calf tenderness Psychiatric: Alert and oriented to person, place and time, Appropriate affect Intact judgement Neuro: Muscles Strength 5/5 in all 4 extremities, Sensation to light touch grossly present throughout, Cranial nerves II-XII grossly intact. No focal sensory deficits - Labs CBC & Chem 7: 11/09/18 06:39 11/07/18 05:52 Labs: Abnormal Lab Results - Last 24 Hours (Table) 11/08/18 11/08/18 11/09/18 Range/Units 17:09 21:00 06:36 Neutrophils # (1.3-7.7) k/uL Lymphocytes # (1.0-4.8) k/uL POC Glucose (mg/dL) 165 H 237 H 177 H (75-99) mg/dL 11/09/18 11/09/18 Range/Units 06:39 12:03 Neutrophils # 9.0 H (1.3-7.7) k/uL Lymphocytes # 0.9 L (1.0-4.8) k/uL POC Glucose (mg/dL) 191 H (75-99) mg/dL Microbiology - Last 24 Hours (Table) 11/05/18 01:30 Blood Culture - Preliminary Blood No Growth after 96 hours Assessment and Plan (1) Severe sepsis Narrative/Plan: * The patient respiratory failure due to severe pneumonia with mucous plugging and COPD exacerbation * Remains normotensive and tachycardia has resolved, metabolic acidosis/ lactic acidosis is improving we'll discontinue any further rechecks at this time * Patient remains afebrile, mild leukocytosis (possibly secondary to steroids) * Continue empiric IV antibiotics with azithromycin and Rocephin Current Visit: Yes Status: Resolved Code(s): A41.9 - SEPSIS, UNSPECIFIED ORGANISM; R65.20 - SEVERE SEPSIS WITHOUT SEPTIC SHOCK SNOMED Code(s): 90196722 (2) Acute respiratory failure with hypoxia Narrative/Plan: * Multifactorial secondary to community-acquired pneumonia in the setting of acute COPD exacerbation with possible mucus plugging (continue CPT therapy) * Continue supplemental oxygen currently on high flow with increasing O2 requirements up to 13 L now * Continue breathing treatments * Pulmonary has been consulted to evaluate for possible bronchoscopy hopefully they will proceed with that today or tomorrow Current Visit: Yes Status: Acute Code(s): J96.01 - ACUTE RESPIRATORY FAILURE WITH HYPOXIA SNOMED Code(s): 94334561 (3) Community acquired pneumonia Current Visit: Yes Status: Acute Code(s): J18.9 - PNEUMONIA, UNSPECIFIED ORGANISM SNOMED Code(s): 988026218 (4) COPD with acute exacerbation Narrative/Plan: * Triggered by pneumonia and sepsis * Continue systemic steroids with Solu-Medrol 60 mg iv q 6, continue A/A Duo nebs Q 4 and PRN Current Visit: Yes Status: Acute Code(s): J44.1 - CHRONIC OBSTRUCTIVE PULMONARY DISEASE W (ACUTE) EXACERBATION SNOMED Code(s): 423128618 (5) Essential hypertension Narrative/Plan: * Blood pressure stable controlled on current home regimen * Continue metoprolol and Lasix Current Visit: Yes Status: Acute Code(s): I10 - ESSENTIAL (PRIMARY) HYPERTENSION SNOMED Code(s): 97213060 Plan: * Disposition * Anticipated discharge to be determined by course * Follow up with consultants recommendations hopefully patient can have a bronchoscopy today
[2018-11-09] MEDS: cloZAPine 100 MG TAB PO SCH (16:42)
[2018-11-09] MEDS: AZITHROMYCIN 500 MG TAB PO SCH (16:42)
[2018-11-09] MEDS: FUROSEMIDE 20 MG TAB PO SCH (16:43)
[2018-11-09] MEDS: CITALOPRAM HYDROBROMIDE 20 MG TAB PO SCH (16:43)
[2018-11-09] MEDS: METOPROLOL TARTRATE 25 MG TAB PO SCH ×2 (16:43→22:47)
[2018-11-09] MEDS: OXYBUTYNIN XL 5 MG TAB.ER.24 PO SCH ×2 (16:43→22:48)
[2018-11-09] MEDS: ISOSORBIDE MONONITRATE ER 60 MG TAB.ER.24H PO SCH (16:43)
[2018-11-09] MEDS: DIGOXIN 125 MCG TAB PO SCH (16:43)
[2018-11-09] MEDS: APIXABAN 5 MG TAB PO SCH ×2 (16:44→21:58)
[2018-11-09 16:58] LABS: Glucose,Whole Blood 169 mg/dL (75-99)
[2018-11-09 17:08] LABS: Appearance,BF Blood Tinged; Color,BF Colorless; Nucleated Cells, Body Fluid 1860 /uL; RBC, Body Fluid 980 /uL
[2018-11-09 17:32] LABS: Mononuclear WBC,Body Fluid 7 %; Polynuclear WBC,Body Fluid 92 %
--- NOTE | 2018-11-09 20:16 | PCN ---
PROCEDURE NOTE PROCEDURE PERFORMED: Bronchoscopy and bronchoalveolar lavage of both lungs, and random bronchial washings. PREOPERATIVE DIAGNOSES: Acute hypoxic respiratory failure secondary to pneumonia and difficulty clearing secretions. POSTOPERATIVE DIAGNOSES: Acute hypoxic respiratory failure secondary to pneumonia and difficulty clearing secretions. Evidence of tracheobronchomalacia. ANESTHESIA: IV conscious sedation. DESCRIPTION OF PROCEDURE: The patient was prepared according to the bronchoscopy protocol. O2 was applied via high-flow nasal cannula. We monitored her O2 saturation continuously, blood pressure was intermittently monitored. Cardiac rhythm was continuously monitored. The patient was placed in the supine position, and after adequate IV conscious sedation, a bite block was applied, and the bronchoscope was advanced through the bite block down to the area of the vocal cords. Purulent secretions noted around the vocal cords and these were suctioned. Lidocaine applied over the vocal cords. The bronchoscope was advanced further down. Thorough examination was done of the trachea, hortensia, right upper lobe, right middle lobe, right lower lobe, left upper lobe lingula and left lower lobe. There was evidence of tracheomalacia, there was evidence of significant purulent secretions, specifically more so in the right lower lobe, right middle lobe and left lower lobe. Bronchoalveolar lavage of these lobes was done. Purulent secretions were noted to be minimal in the other lobes including the right upper lobe and right middle lobe. These were suctioned easily and also done on the left upper lobe and lingula. The lavage fluid was sent for different diagnostic studies. The procedure was well tolerated and no evidence of any immediate complication. MMODL / IJN: [id number] /
[2018-11-09 21:14] LABS: Glucose,Whole Blood 212 mg/dL (75-99)
[2018-11-09] MEDS: ATORVASTATIN 10 MG TAB PO SCH (21:58)
[2018-11-10] MEDS: IPRATROPIUM-ALBUTEROL 3 ML NEB INHALATION SCH ×6 (03:30→23:46)
[2018-11-10 06:19] LABS: Glucose,Whole Blood 187 mg/dL (75-99)
[2018-11-10] MEDS: INSULIN ASPART (NovoLOG) 100 UNIT/ML VIAL SQ SCH ×4 (06:54→21:53)
[2018-11-10] MEDS: SODIUM CHLORIDE 0.9% 1,000 ML IV SCH ×2 (06:54→12:16)
[2018-11-10] MEDS: methylPREDNISolone SOD SUCCI 125 MG/2 ML VIAL IV SCH ×3 (06:54→18:03)
[2018-11-10] MEDS: APIXABAN 5 MG TAB PO SCH ×2 (09:31→21:54)
[2018-11-10] MEDS: AZITHROMYCIN 500 MG TAB PO SCH (09:31)
[2018-11-10] MEDS: guaiFENesin 600 MG TABLET.ER PO SCH ×2 (09:31→21:54)
[2018-11-10] MEDS: CITALOPRAM HYDROBROMIDE 20 MG TAB PO SCH (09:32)
[2018-11-10] MEDS: DIGOXIN 125 MCG TAB PO SCH (09:32)
[2018-11-10] MEDS: FUROSEMIDE 20 MG TAB PO SCH (09:32)
[2018-11-10] MEDS: ISOSORBIDE MONONITRATE ER 60 MG TAB.ER.24H PO SCH (09:32)
[2018-11-10] MEDS: METOPROLOL TARTRATE 25 MG TAB PO SCH ×2 (09:32→21:54)
[2018-11-10] MEDS: GABAPENTIN 300 MG CAP PO SCH ×2 (09:32→17:39)
[2018-11-10] MEDS: cloZAPine 100 MG TAB PO SCH (09:33)
[2018-11-10] MEDS: OXYBUTYNIN XL 5 MG TAB.ER.24 PO SCH ×2 (09:33→21:54)
--- NOTE | 2018-11-10 10:14 | CDI ---
Documentation Clarification Form Date: 11/10/2018 From: Marisa Johnson RN CCDS Admit Date: 11/05/2018 5:28:00 AM Patient Name: iDana Corey Visit Number: [id number] Discharge Date: ATTENTION: The Clinical Documentation Specialists (CDI) and [facility] Coding Staff appreciate your assistance in clarifying documentation. Please respond to the clarification below the line at the bottom and electronically sign. The CDI & [facility] Coding staff will review the response and follow-up if needed. Please note: Queries are made part of the Legal Health Record. If you have any questions, please contact the author of this message via ITS. Dr. Marvin Elizabeth MD Heart Failure is documented in the ED report under past medical history. History/Risk Factors: 63 year old female presents to the ED via EMS for shortness of breath. Medical history of Bronchial Asthma /COPD, DM, Bronchial asthma ,HTN, obesity, chronic lower extremity edema Clinical Indicators: VS/Pulse OX: 137/76 91 101.3 20 90% nasal cannula Chest X Ray: 11/05/2018 Small right pleural effusion with basilar atelectasis/ infiltrate. Mildly prominent cardiomediastinal silhouette, may be related to technique or other etiology Treatment: In your professional opinion, can you please clarify the acuity and type of CHF if known? Acute Systolic Heart Failure Chronic Systolic Heart failure Acute on Chronic Systolic Heart Failure Acute Diastolic Heart Failure Chronic Diastolic Heart Failure Acute on Chronic Diastolic Heart Failure Acute Systolic & Diastolic Heart Failure Chronic Systolic & Diastolic Heart Failure Acute on Chronic Systolic & Diastolic Heart Failure Heart Failure ruled out. Unable to Determine Other, please specify (Last Revision: August 2017) NO CHF MTDD
[2018-11-10 12:03] LABS: Glucose,Whole Blood 187 mg/dL (75-99)
--- NOTE | 2018-11-10 15:51 | P.PN ---
Subjective Progress Note Date: 11/10/18 Principal diagnosis: Right lower lobe pneumonia 63-year-old female patient was hospitalized for a right lower lobe pneumonia. The patient lives in an AFC home and she is known to have asthma chronic paroxysmal atrial fibrillation maintained on long-term medical condition with E liquis, hypertension and hyperlipidemia. She is also known to have coronary artery disease. 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 Has been expressing increased dyspnea cough venous sputum production of fever and chills. She was admitted to the hospital and she was diagnosed having a right lower lobe pneumonia pH of present with some pleuritic chest pain increased shortness of breath. She was given Rocephin and Zithromax and admitted to the medical floor. Initial lactic acid level was at 2.8. Subsequently overnight lactic acid level gradually went up. Lactic acid level peaked at 11.2 and subsequently dropped down to 3.8. During this time the patient was receiving IV antibiotics and fluids. She continued to be awake and alert and there was no lethargy or altered mentation. No further worsening in respiratory distress. A review the CAT scan of the chest that was on overnight and is clearly shows a right lower lobe pneumonia involving the posterior-superior segment which obviously raises the concern for aspiration. Nevertheless, the patient seems to be swallowing her food fine without any major difficulties. This morning, she is on 9 L of oxygen by nasal cannula with a pulse ox of 93% she is afebrile she is not tachycardic and her heart rate is sinus at the rate of 90. No nausea. No vomi ting. No abdominal pain. He is receiving also IV fluids with normal state rate of 100 mL an hour. Overnight she was given more fluids and lites fluid balance is +2.5 L. The patient is seen today 11/07/2018 in follow-up on the selective care unit. She is currently resting comfortably in bed. Awake and alert in no acute distress. She still has a loose nonproductive cough. Requiring 10 L high flow nasal cannula to maintain O2 saturations in the 90s. Somewhat tachypneic. Currently afebrile. Hemodynamically stable. His x-ray continues to show focal peripheral left basilar infiltrate. Blood culture showing no growth thus far. White count 13.5. Hemoglobin 11.0. Creatinine 0.77. ProBNP 1920. Currently on DuoNeb inhalations, ceftriaxone and azithromycin, IV Solu-Medrol. The patient is seen today 11/08/2018 in follow-up on the selective care unit. She remains awake and alert. She continues with a loose congested cough. No able to expectorate small amounts. She remains quite hypoxic requiring 15 L high flow nasal cannula. She's been afebrile. Hemodynamically stable. She is continued on bronchodilators, IV Solu-Medrol, antibiotics in the form of ceftriaxone and azithromycin. Blood culture reveals no growth. The plan is for bronchoscopy with BAL tomorrow morning. The patient is seen today 11/09/2018 in follow-up on the selective care unit. She is awake and alert in no acute distress. Breathing a little bit easier today as compared to yesterday. Still with a loose nonproductive cough. Quite congested. She is down to 10 L high flow nasal cannula and maintaining good O2 saturations in the upper 90s. She's been afebrile. Hemodynamically stable. She remains on ceftriaxone and azithromycin. The plan is for bronchoscopy with BAL today. The patient is seen today 11/10/2017 in follow-up on the selective care unit. Currently sitting up in a chair at the bedside. Awake and alert in no acute distress. Breathing quite a bit better today as compared to yesterday. She did undergo bronchoscopy with BAL cultures are pending. She remains on ceftriaxone and azithromycin for now. Continued on bronchodilators and IV Solu-Medrol. Maintaining good O2 saturations and down to 2 L high flow nasal cannula. Objective - Vital Signs Vital signs: Vital Signs Temp 97.7 F 11/10/18 12:25 Pulse 65 11/10/18 12:25 Resp 16 11/10/18 13:48 BP 144/82 11/10/18 12:25 Pulse Ox 95 11/10/18 13:48 Intake & Output 11/09/18 11/10/18 11/10/18 18:59 06:59 18:59 Intake Total 390 290 480 Balance 390 290 480 Weight 90.5 kg Intake: IV 100 Intake, IV Titration 290 Amount Sodium Chloride 0.9% 1, 240 000 ml @ 100 mls/hr IV . Q10H [facility]ADA Rx#:[id number] cefTRIAXone 1 gm In 50 Sodium Chloride 0.9% 50 ml @ 100 mls/hr IVPB HS [facility]ADA Rx#:[id number] Oral 290 480 Other: Voiding Method Bedside Commode Bedside Commode # Voids 1 1 - Exam General:, Pleasant 63-year-old female patient in mild respiratory distress, requiring 2 L nasal cannula to maintain O2 saturations in the 90s. Derm: no unusual rashes/lesions no unusual ecchymoses, warm, dry Head: Head exam was generally normal. There was no scleral icterus or corneal arcus. Mucous membranes were moist. Eyes: Neck was supple and without jugular venous distension, thyromegaly, or carotid bruits. Carotids were easily palpable bilaterally. There was no adenopathy. Mouth: no lip lesion, mucus membranes moist Cardiovascular: S1S2 reg, mildly tachycardic, no murmur, positive posterior tibial pulse bilateral, 1+ sukhjinder LE pitting edema, capillary refill less than 2 seconds Lungs: Bilateral wheezing w/ coarse breath sounds diffusely, no accessory muscle use and there are coarse crackles in lung bases mainly on the right lung base. Abdominal: soft, nontender to palpation, no guarding, no appreciable organomegaly, normal bowel sounds Ext: no gross muscle atrophy, muscle strength 5 out of 5 in all 4 extremities grossly, no contractures, Neuro: CN II-XI grossly intact, light touch intact all 4 extremities, finger to nose within normal limits, Psych: Alert, oriented, appropriate affect Examination of the skin revealed no evidence of significant rashes, suspicious appearing nevi or other concerning lesions. - Labs CBC & Chem 7: 11/09/18 06:39 11/07/18 05:52 Labs: Abnormal Lab Results - Last 24 Hours (Table) 11/09/18 11/09/18 11/10/18 Range/Units 16:50 21:13 06:17 POC Glucose (mg/dL) 169 H 212 H 187 H (75-99) mg/dL 11/10/18 Range/Units 12:01 POC Glucose (mg/dL) 187 H (75-99) mg/dL Microbiology - Last 24 Hours (Table) 11/05/18 01:30 Blood Culture - Preliminary Blood No Growth after 120 hours 11/09/18 12:50 Acid Fast Bacilli Smear - Final Bronchial Washings - Random Acid Fast Bacilli Culture - Preliminary 11/09/18 12:50 Fungal Culture - Preliminary Bronchial Washings - Random 11/09/18 12:50 Bronchial Washings Culture - Preliminary Bronchial Washings - Random Assessment and Plan Assessment: Impression: 1 right lower lobe pneumonia involving the posterior segment of the right lower lobe. The CAT scan was reviewed and there is also a questionable narrowing of the right lower lobe bronchus, consider mucous plugging/tracheal bronchomalacia. She did undergo bronchoscopy with BAL. Cultures are pending. 2 mediastinal lymph node calcification with questionable bronchiolith adjacent to the right lower lobe bronchus, a marker of a previous granulomatous infection of the lung. 3 lactic acidosis, improving 4 acute hypoxic respiratory failure and shortness of breath secondary to above 5 chronic bronchial asthma with some exacerbation secondary to above 6 history paroxysmal atrial fibrillation currently in sinus rhythm 7 history of schizophrenia 8 hypertension 9 diabetes mellitus 10 hyperlipidemia 11 chronic lower extremity edema 12 previous history of left axillary abscess/cellulitis with MSSA post I&D 13 history of shingles 14 macular degeneration 15 history of coronary artery disease with 50% lesion in the LAD 16 peripheral neuropathy 17 chronic anxiety 18 chronic migraines. 19 peripheral neuropathy Plan: The patient was seen and evaluated by Dr. Ozuna. Bronchoscopy with BAL performed yesterday. Cultures are pending. Remains on ceftriaxone and azithromycin. Improved significantly. Down to 2 L/m per nasal cannula maintain good O2 saturations in the 90s. We'll continue with the current treatment plan for now including bronchodilators and IV Solu-Medrol. Repeat chest x-ray in a.m. We'll continue to follow and make further recommendations based on her clinical status. Possible discharge in the a.m. I, the cosigning physician, performed a history & physical examination of the patient. Lungs sounds bilateral crackles in the right posterior base. Maintaining good O2 saturations in the 90s on 2 L high flow nasal cannula.. I discussed the assessment and plan of care with my nurse practitioner, Fernanda Mendoza . I attest to the above note as dictated by her.
[2018-11-10 16:30] LABS: Glucose,Whole Blood 209 mg/dL (75-99)
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
[2018-11-10 20:45] LABS: Glucose,Whole Blood 210 mg/dL (75-99)
[2018-11-10] MEDS: ATORVASTATIN 10 MG TAB PO SCH (21:54)
--- NOTE | 2018-11-10 22:42 | P.PN ---
Progress Note - Text Progress Note Date: 11/10/18 Presenting complaint: Shortness Interval history: Admitted with pneumonia. Acute hypoxic respiratory failure. Status post bronchoscopy. Today-this morning I saw the patient patient is on 7 L of oxygen. Did tolerate some diet. Asking to go home. Bit of congestion. Did bring up some phlegm. Late in the afternoon I was reported that patient was a bit confused. And also was possibly hallucinating was using the large knife to cut a wire. Apparently she was seeing people in the room. When I talked to earlier today she was not having any of these symptoms. Patient wanted to know from me that when can she go back to work. She to go home. Review of systems: Was done for constitutional, cardiovascular, GI, pulmonary. relevant finding as above Current medications are reviewed and include: DuoNeb, Eliquis, Zithromax, ceftriaxone, by mouth Lasix, Neurontin, IV Solu-Medrol, IV saline On examination: VITAL SIGNS: 97.9, 74, 16, 131/83, 95% on 7 L GENERAL APPEARANCE: Average build. Sitting at the edge of bed, slightly short of breath. HEENT: Normal external appearance of nose and ear. Oral cavity normal EYES: Pupils equal. Conjunctiva normal. NECK: JVD not raised. Mass not palpable. RESPIRATORY: Respiratory effort increased, decreased breath sounds and minimal wheezing. CARDIOVASCULAR: First and second sounds normal. No edema. ABDOMEN: Soft. Liver and spleen not palpable. No tenderness. No mass palpable. PSYCHIATRY: Alert and oriented x3. Mood and affect some anxiety. Investigations: Accu-Cheks noted, 187, 187, 209 [place] culture results are pending Assessment: -Right lower lobe pneumonia suspected gram-negative organism -Acute hypoxic respiratory failure from pneumonia -Suspect underlying acute delirium probably from high flow oxygen and will try to taper down the oxygen. -Diabetes mellitus type 2 chronically on oral hypoglycemic uncontrolled with hyperglycemia -Hyperlipidemia -Essential hypertension -Obesity BMI 35.3 -Hiatal hernia -Peripheral neuropathy idiopathic -GERD -Schizoaffective disorder, bipolar type Plan: Patient possibly had acute delirium earlier today. Did tell the nurse to scale back on the oxygen. Liters oxygen requirement had come down to 2% to the pulse ox greater than 92%. There may be element of steroid psychosis also cut back on the Solu-Medrol. Psychiatry consultation was done.
[2018-11-11] MEDS: LACTATED RINGERS 1,000 ML IV SCH (01:06)
[2018-11-11] MEDS: IPRATROPIUM-ALBUTEROL 3 ML NEB INHALATION SCH ×5 (03:25→20:57)
[2018-11-11 06:04] LABS: Glucose,Whole Blood 164 mg/dL (75-99)
[2018-11-11] MEDS: INSULIN ASPART (NovoLOG) 100 UNIT/ML VIAL SQ SCH ×4 (06:47→20:59)
[2018-11-11] MEDS: cloZAPine 100 MG TAB PO SCH (08:00)
[2018-11-11] MEDS: CITALOPRAM HYDROBROMIDE 20 MG TAB PO SCH (08:01)
[2018-11-11] MEDS: guaiFENesin 600 MG TABLET.ER PO SCH ×2 (08:01→20:59)
[2018-11-11] MEDS: ISOSORBIDE MONONITRATE ER 60 MG TAB.ER.24H PO SCH (08:01)
[2018-11-11] MEDS: APIXABAN 5 MG TAB PO SCH ×2 (08:02→20:59)
[2018-11-11] MEDS: METOPROLOL TARTRATE 25 MG TAB PO SCH ×2 (08:02→20:59)
[2018-11-11] MEDS: GABAPENTIN 300 MG CAP PO SCH ×2 (08:02→17:37)
[2018-11-11] MEDS: DIGOXIN 125 MCG TAB PO SCH (08:02)
[2018-11-11] MEDS: FUROSEMIDE 20 MG TAB PO SCH (08:03)
[2018-11-11] MEDS: methylPREDNISolone SOD SUCCI 40 MG/ML 1 ML VIAL IV SCH ×2 (08:03→20:59)
--- NOTE | 2018-11-11 09:08 | XR ---
EXAMINATION TYPE: XR chest 2V DATE OF EXAM: 11/11/2018 COMPARISON: 11/07/2018 TECHNIQUE: PA and lateral views submitted. HISTORY: Shortness of breath FINDINGS: Bilateral consolidation small effusion. Heart is enlarged and there is an interstitial pattern. No pn eumothorax. IMPRESSION: 1. Stable findings compatible with bilateral infiltrate and small effusion. Superimposed interstitial pneumonitis or venous congestion in the differential diagnosis.
[2018-11-11] MEDS: OXYBUTYNIN XL 5 MG TAB.ER.24 PO SCH ×2 (09:34→20:59)
[2018-11-11 11:42] LABS: Glucose,Whole Blood 123 mg/dL (75-99)
--- NOTE | 2018-11-11 15:06 | P.PN ---
Progress Note - Text Progress Note Date: 11/11/18 Interval History: Patient is a 63-year-old female who was seen today in follow- up to a consultation. Patient was sitting up in a chair in her room and stated that she was doing much better today. She reported to me that she was no longer having visual hallucinations and patient was more alert and not confused. Patient stated that she was thinking clearer, she reported no other complaints at this time. Mental Status: Appearance/Attitude: Patient is dressed in a hospital gown, sitting in a chair in no acute distress makes eye contact and was cooperative Behavior: Patient does not display any psychomotor agitation or retardation Speech/Language: Patient's speech was spontaneous and of normal volume and rhythm and she was coherent Thought Process: Patient was goal-directed there is no evidence of loose associations or flight of ideas Thought Content: Patient denied any auditory or visual hallucinations, no delusions or paranoid ideation were elicited. Patient reports that she is feeling better today, her thinking is clear and she is not feeling as confused. Patient reports that she is eating and was getting ready to go for a walk. Suicidal/Homicidal Ideation: Patient denied any current suicidal or homicidal ideation Sensorium/Cognition: Patient is alert and oriented to person, place and time, patient could discuss her reasons for admission to the hospital Mood/Affect: Patient's mood was pleasant and her affect is appropriate Insight/Judgment: Patient insight and judgment are fair Assessment: Patient was seen today and she is much more alert, much less confused and was aware of where she was and why she was in the hospital patient reported no longer having visual hallucinations. Patient reported that she was feeling much better and had been feeling confused. Plan: Patient's delirium is resolving, would continue her current psychotropic medications at their current doses. I will sign off the case if there are any further questions or concerns please don't hesitate to contact me.
--- NOTE | 2018-11-11 15:57 | P.PN ---
Subjective Progress Note Date: 11/11/18 Principal diagnosis: Right lower lobe pneumonia 63-year-old female patient was hospitalized for a right lower lobe pneumonia. The patient lives in an AFC home and she is known to have asthma chronic paroxysmal atrial fibrillation maintained on long-term medical condition with E liquis, hypertension and hyperlipidemia. She is also known to have coronary artery disease. 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 Has been expressing increased dyspnea cough venous sputum production of fever and chills. She was admitted to the hospital and she was diagnosed having a right lower lobe pneumonia pH of present with some pleuritic chest pain increased shortness of breath. She was given Rocephin and Zithromax and admitted to the medical floor. Initial lactic acid level was at 2.8. Subsequently overnight lactic acid level gradually went up. Lactic acid level peaked at 11.2 and subsequently dropped down to 3.8. During this time the patient was receiving IV antibiotics and fluids. She continued to be awake and alert and there was no lethargy or altered mentation. No further worsening in respiratory distress. A review the CAT scan of the chest that was on overnight and is clearly shows a right lower lobe pneumonia involving the posterior-superior segment which obviously raises the concern for aspiration. Nevertheless, the patient seems to be swallowing her food fine without any major difficulties. This morning, she is on 9 L of oxygen by nasal cannula with a pulse ox of 93% she is afebrile she is not tachycardic and her heart rate is sinus at the rate of 90. No nausea. No vomi ting. No abdominal pain. He is receiving also IV fluids with normal state rate of 100 mL an hour. Overnight she was given more fluids and lites fluid balance is +2.5 L. The patient is seen today 11/07/2018 in follow-up on the selective care unit. She is currently resting comfortably in bed. Awake and alert in no acute distress. She still has a loose nonproductive cough. Requiring 10 L high flow nasal cannula to maintain O2 saturations in the 90s. Somewhat tachypneic. Currently afebrile. Hemodynamically stable. His x-ray continues to show focal peripheral left basilar infiltrate. Blood culture showing no growth thus far. White count 13.5. Hemoglobin 11.0. Creatinine 0.77. ProBNP 1920. Currently on DuoNeb inhalations, ceftriaxone and azithromycin, IV Solu-Medrol. The patient is seen today 11/08/2018 in follow-up on the selective care unit. She remains awake and alert. She continues with a loose congested cough. No able to expectorate small amounts. She remains quite hypoxic requiring 15 L high flow nasal cannula. She's been afebrile. Hemodynamically stable. She is continued on bronchodilators, IV Solu-Medrol, antibiotics in the form of ceftriaxone and azithromycin. Blood culture reveals no growth. The plan is for bronchoscopy with BAL tomorrow morning. The patient is seen today 11/09/2018 in follow-up on the selective care unit. She is awake and alert in no acute distress. Breathing a little bit easier today as compared to yesterday. Still with a loose nonproductive cough. Quite congested. She is down to 10 L high flow nasal cannula and maintaining good O2 saturations in the upper 90s. She's been afebrile. Hemodynamically stable. She remains on ceftriaxone and azithromycin. The plan is for bronchoscopy with BAL today. The patient is seen today 11/10/2017 in follow-up on the selective care unit. Currently sitting up in a chair at the bedside. Awake and alert in no acute distress. Breathing quite a bit better today as compared to yesterday. She did undergo bronchoscopy with BAL cultures are pending. She remains on ceftriaxone and azithromycin for now. Continued on bronchodilators and IV Solu-Medrol. Maintaining good O2 saturations and down to 2 L high flow nasal cannula. The patient is seen today 11/11/2018 in follow-up on the selective care unit. She is awake and alert in no acute distress. She is up in a chair at the bedside. Doing much better with an occasional dry nonproductive cough. No worsening shortness of breath. Maintaining good O2 saturations in the 90s on room air. She's been afebrile. Hemodynamically stable. Bronchial wash cultures reveal no growth. She remains on bronchodilators and ceftriaxone. Objective - Vital Signs Vital signs: Vital Signs Temp 97.7 F 11/11/18 11:43 Pulse 76 11/11/18 13:19 Resp 16 11/11/18 11:43 BP 144/82 11/11/18 11:43 Pulse Ox 94 L 11/11/18 11:43 Intake & Output 11/10/18 11/11/18 11/11/18 18:59 06:59 18:59 Intake Total 480 480 Output Total 2950 Balance 480 -2470 Weight 91.5 kg 91.5 kg Intake: Oral 480 480 Output: Urine 2950 Other: Voiding Method Bedside Commode Bedside Commode Bedside Commode # Voids 1 2 1 - Exam General:, Pleasant 63-year-old female patient in no acute distress, on room air, maintaining O2 saturations in the 90s. Derm: no unusual rashes/lesions no unusual ecchymoses, warm, dry Head: Head exam was generally normal. There was no scleral icterus or corneal arcus. Mucous membranes were moist. Eyes: Neck was supple and without jugular venous distension, thyromegaly, or carotid bruits. Carotids were easily palpable bilaterally. There was no adenopathy. Mouth: no lip lesion, mucus membranes moist Cardiovascular: S1S2 reg, mildly tachycardic, no murmur, positive posterior tibial pulse bilateral, 1+ sukhjinder LE pitting edema, capillary refill less than 2 seconds Lungs: Few scattered rhonchi, diminished Abdominal: soft, nontender to palpation, no guarding, no appreciable organomegaly, normal bowel sounds Ext: no gross muscle atrophy, muscle strength 5 out of 5 in all 4 extremities grossly, no contractures, Neuro: CN II-XI grossly intact, light touch intact all 4 extremities, finger to nose within normal limits, Psych: Alert, oriented, appropriate affect Examination of the skin revealed no evidence of significant rashes, suspicious appearing nevi or other concerning lesions. - Labs CBC & Chem 7: 11/09/18 06:39 11/07/18 05:52 Labs: Abnormal Lab Results - Last 24 Hours (Table) 11/10/18 11/10/18 11/11/18 Range/Units 16:28 20:36 06:02 POC Glucose (mg/dL) 209 H 210 H 164 H (75-99) mg/dL 11/11/18 Range/Units 11:40 POC Glucose (mg/dL) 123 H (75-99) mg/dL Microbiology - Last 24 Hours (Table) 11/09/18 12:50 Gram Stain - Final Bronchial Washings - Random Bronchial Washings Culture - Final 11/05/18 01:30 Blood Culture - Final Blood No Growth after 144 hours Assessment and Plan Assessment: Impression: 1 right lower lobe pneumonia involving the posterior segment of the right lower lobe. The CAT scan was reviewed and there is also a questionable narrowing of the right lower lobe bronchus, consider mucous plugging/tracheal bronchomalacia. She did undergo bronchoscopy with BAL. Cultures are negative. 2 mediastinal lymph node calcification with questionable bronchiolith adjacent to the right lower lobe bronchus, a marker of a previous granulomatous infection of the lung. 3 lactic acidosis, improving 4 acute hypoxic respiratory failure and shortness of breath secondary to above 5 chronic bronchial asthma with some exacerbation secondary to above 6 history paroxysmal atrial fibrillation currently in sinus rhythm 7 history of schizophrenia 8 hypertension 9 diabetes mellitus 10 hyperlipidemia 11 chronic lower extremity edema 12 previous history of left axillary abscess/cellulitis with MSSA post I&D 13 history of shingles 14 macular degeneration 15 history of coronary artery disease with 50% lesion in the LAD 16 peripheral neuropathy 17 chronic anxiety 18 chronic migraines. 19 peripheral neuropathy Plan: The patient was seen and evaluated by Dr. Ozuna. His x-ray reviewed. She is improved clinically. On room air. Continue bronchodilators and antibiotics. Increase her activity as tolerated. Sitter at the bedside. We'll continue to follow and make further recommendations based on her clinical status. Possible discharge in the a.m. I, the cosigning physician, performed a history & physical examination of the patient. Lungs sounds few scattered rhonchi, diminished. Maintaining good O2 saturations in the 90s on room air.. I discussed the assessment and plan of care with my nurse practitioner, Fernanda Mendoza. I attest to the above note as dictated by her.
[2018-11-11 16:52] LABS: Glucose,Whole Blood 187 mg/dL (75-99)
[2018-11-11 20:42] LABS: Glucose,Whole Blood 132 mg/dL (75-99)
[2018-11-11] MEDS: ATORVASTATIN 10 MG TAB PO SCH (20:59)
--- NOTE | 2018-11-11 22:38 | P.PN ---
Progress Note - Text Progress Note Date: 11/11/18 Presenting complaint: Shortness Interval history: Admitted with pneumonia. Acute hypoxic respiratory failure. Status post bronchoscopy. Today-patient oxygen was scaled down yesterday. Daily down to room air. Eating about 25-30% of her meals. Keeps insisting upon going home. Did have a bowel movement. Is currently bit of a cough. Still intermittently delirious Review of systems: Was done for constitutional, cardiovascular, GI, pulmonary. relevant finding as above Current medications are reviewed and include: DuoNeb, Eliquis, Zithromax, ceftriaxone, by mouth Lasix, Neurontin, IV Solu-Medrol, IV saline On examination: VITAL SIGNS: 97.9, 71, 16, 06/15/1967, 94% room air GENERAL APPEARANCE: Sitting up in a chair, looking better. HEENT: Normal external appearance of nose and ear. Oral cavity normal EYES: Pupils equal. Conjunctiva normal. NECK: JVD not raised. Mass not palpable. RESPIRATORY: Respiratory effort increased, decreased breath sounds and minimal wheezing. CARDIOVASCULAR: First and second sounds normal. No edema. ABDOMEN: Soft. Liver and spleen not palpable. No tenderness. No mass palpable. PSYCHIATRY: Alert and oriented x3. Mood and affect some anxiety. Investigations: Accu-Cheks noted, 164, 123, 187 [place] culture results -normal respiratory kush Assessment: -Right lower lobe pneumonia suspected gram-negative organism, but clinical improvement -Acute hypoxic respiratory failure from pneumonia, but clinical improvement -Suspect underlying acute delirium probably from high flow oxygen and will try to taper down the oxygen. -Diabetes mellitus type 2 chronically on oral hypoglycemic uncontrolled with hyperglycemia -Hyperlipidemia -Essential hypertension -Obesity BMI 35.3 -Hiatal hernia -Peripheral neuropathy idiopathic -GERD -Schizoaffective disorder, bipolar type Plan: Patient oxygen is come down nicely. We'll also cut back on Solu-Medrol. That may help with the delirium which is actually improving. Continue current medication treatment plan. Encourage the patient to ambulate. Should be able to be switched over to oral antibiotics tomorrow. Also switch to oral prednisone in the morning.
[2018-11-12] MEDS: IPRATROPIUM-ALBUTEROL 3 ML NEB INHALATION SCH ×7 (01:22→23:26)
[2018-11-12] MEDS: LACTATED RINGERS 1,000 ML IV SCH ×2 (03:39→20:55)
[2018-11-12 06:30] LABS: Glucose,Whole Blood 157 mg/dL (75-99)
[2018-11-12] MEDS: INSULIN ASPART (NovoLOG) 100 UNIT/ML VIAL SQ SCH ×4 (06:50→20:51)
[2018-11-12] MEDS: GABAPENTIN 300 MG CAP PO SCH ×2 (08:30→17:58)
[2018-11-12] MEDS: ISOSORBIDE MONONITRATE ER 60 MG TAB.ER.24H PO SCH (08:30)
[2018-11-12] MEDS: CITALOPRAM HYDROBROMIDE 20 MG TAB PO SCH (08:30)
[2018-11-12] MEDS: DIGOXIN 125 MCG TAB PO SCH (08:30)
[2018-11-12] MEDS: CEFDINIR 300 MG CAP PO SCH ×2 (08:31→20:52)
[2018-11-12] MEDS: OXYBUTYNIN XL 5 MG TAB.ER.24 PO SCH ×2 (08:31→20:52)
[2018-11-12] MEDS: APIXABAN 5 MG TAB PO SCH ×2 (08:31→20:52)
[2018-11-12] MEDS: guaiFENesin 600 MG TABLET.ER PO SCH ×2 (08:31→20:52)
[2018-11-12] MEDS: METOPROLOL TARTRATE 25 MG TAB PO SCH ×2 (08:31→20:52)
[2018-11-12] MEDS: FUROSEMIDE 20 MG TAB PO SCH (08:31)
[2018-11-12] MEDS: predniSONE 20 MG TAB PO SCH (08:31)
[2018-11-12] MEDS: cloZAPine 100 MG TAB PO SCH (08:32)
--- NOTE | 2018-11-12 11:30 | P.PN ---
Subjective Progress Note Date: 11/12/18 Principal diagnosis: Right lower lobe pneumonia 63-year-old female patient was hospitalized for a right lower lobe pneumonia. The patient lives in an AFC home and she is known to have asthma chronic paroxysmal atrial fibrillation maintained on long-term medical condition with E liquis, hypertension and hyperlipidemia. She is also known to have coronary artery disease. 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 Has been expressing increased dyspnea cough venous sputum production of fever and chills. She was admitted to the hospital and she was diagnosed having a right lower lobe pneumonia pH of present with some pleuritic chest pain increased shortness of breath. She was given Rocephin and Zithromax and admitted to the medical floor. Initial lactic acid level was at 2.8. Subsequently overnight lactic acid level gradually went up. Lactic acid level peaked at 11.2 and subsequently dropped down to 3.8. During this time the patient was receiving IV antibiotics and fluids. She continued to be awake and alert and there was no lethargy or altered mentation. No further worsening in respiratory distress. A review the CAT scan of the chest that was on overnight and is clearly shows a right lower lobe pneumonia involving the posterior-superior segment which obviously raises the concern for aspiration. Nevertheless, the patient seems to be swallowing her food fine without any major difficulties. This morning, she is on 9 L of oxygen by nasal cannula with a pulse ox of 93% she is afebrile she is not tachycardic and her heart rate is sinus at the rate of 90. No nausea. No vomi ting. No abdominal pain. He is receiving also IV fluids with normal state rate of 100 mL an hour. Overnight she was given more fluids and lites fluid balance is +2.5 L. The patient is seen today 11/07/2018 in follow-up on the selective care unit. She is currently resting comfortably in bed. Awake and alert in no acute distress. She still has a loose nonproductive cough. Requiring 10 L high flow nasal cannula to maintain O2 saturations in the 90s. Somewhat tachypneic. Currently afebrile. Hemodynamically stable. His x-ray continues to show focal peripheral left basilar infiltrate. Blood culture showing no growth thus far. White count 13.5. Hemoglobin 11.0. Creatinine 0.77. ProBNP 1920. Currently on DuoNeb inhalations, ceftriaxone and azithromycin, IV Solu-Medrol. The patient is seen today 11/08/2018 in follow-up on the selective care unit. She remains awake and alert. She continues with a loose congested cough. No able to expectorate small amounts. She remains quite hypoxic requiring 15 L high flow nasal cannula. She's been afebrile. Hemodynamically stable. She is continued on bronchodilators, IV Solu-Medrol, antibiotics in the form of ceftriaxone and azithromycin. Blood culture reveals no growth. The plan is for bronchoscopy with BAL tomorrow morning. The patient is seen today 11/09/2018 in follow-up on the selective care unit. She is awake and alert in no acute distress. Breathing a little bit easier today as compared to yesterday. Still with a loose nonproductive cough. Quite congested. She is down to 10 L high flow nasal cannula and maintaining good O2 saturations in the upper 90s. She's been afebrile. Hemodynamically stable. She remains on ceftriaxone and azithromycin. The plan is for bronchoscopy with BAL today. The patient is seen today 11/10/2017 in follow-up on the selective care unit. Currently sitting up in a chair at the bedside. Awake and alert in no acute distress. Breathing quite a bit better today as compared to yesterday. She did undergo bronchoscopy with BAL cultures are pending. She remains on ceftriaxone and azithromycin for now. Continued on bronchodilators and IV Solu-Medrol. Maintaining good O2 saturations and down to 2 L high flow nasal cannula. The patient is seen today 11/11/2018 in follow-up on the selective care unit. She is awake and alert in no acute distress. She is up in a chair at the bedside. Doing much better with an occasional dry nonproductive cough. No worsening shortness of breath. Maintaining good O2 saturations in the 90s on room air. She's been afebrile. Hemodynamically stable. Bronchial wash cultures reveal no growth. She remains on bronchodilators and ceftriaxone. The patient is seen today 11/12/2018 in follow-up on the selective care unit. She is currently sitting up at the bedside. Awake and alert in no acute distress. Currently maintaining good O2 saturations in the upper 90s on 4 L/m per nasal cannula. She's afebrile. Hemodynamically stable. Cultures from the bronchial wash reveal no growth. Negative for malignancy. Currently on Omnicef. Objective - Vital Signs Vital signs: Vital Signs Temp 97.8 F 11/12/18 08:34 Pulse 82 11/12/18 08:34 Resp 18 11/12/18 08:34 BP 133/68 11/12/18 08:34 Pulse Ox 96 11/12/18 08:34 Intake & Output 11/11/18 11/12/18 11/12/18 18:59 06:59 18:59 Intake Total 960 Output Total 3250 900 Balance -2290 -900 Weight 91.5 kg 90.9 kg Intake: Oral 960 Output: Urine 3250 900 Other: Voiding Method Bedside Commode Bedside Commode Bedside Commode # Voids 1 2 # Bowel Movements 1 - Exam General: Pleasant 63-year-old female patient in no acute distress, on 4L/min per nasal canula maintaining O2 saturations in the 90s. Derm: no unusual rashes/lesions no unusual ecchymoses, warm, dry Head: Head exam was generally normal. There was no scleral icterus or corneal arcus. Mucous membranes were moist. Eyes: Neck was supple and without jugular venous distension, thyromegaly, or carotid bruits. Carotids were easily palpable bilaterally. There was no adenopathy. Mouth: Mucus membranes moist Cardiovascular: S1 S2 reg, mildly tachycardic, no murmur, positive posterior tibial pulse bilateral, 1+ sukhjinder LE pitting edema, capillary refill less than 2 seconds Lungs: Few scattered rhonchi, diminished Abdominal: soft, nontender to palpation, no guarding, no appreciable organomegaly, normal bowel sounds Ext: no gross muscle atrophy, muscle strength 5 out of 5 in all 4 extremities grossly, no contractures, Neuro: CN II-XI grossly intact, light touch intact all 4 extremities, finger to nose within normal limits, Psych: Alert, oriented, appropriate affect Examination of the skin revealed no evidence of significant rashes, suspicious appearing nevi or other concerning lesions. - Labs CBC & Chem 7: 11/09/18 06:39 11/07/18 05:52 Labs: Abnormal Lab Results - Last 24 Hours (Table) 11/09/18 11/11/18 11/11/18 Range/Units 12:50 11:40 16:50 POC Glucose (mg/dL) 123 H 187 H (75-99) mg/dL Viral Test See Below H 11/11/18 11/12/18 Range/Units 20:40 06:29 POC Glucose (mg/dL) 132 H 157 H (75-99) mg/dL Viral Test Microbiology - Last 24 Hours (Table) 11/09/18 12:50 Gram Stain - Final Bronchial Washings - Random Bronchial Washings Culture - Final Assessment and Plan Assessment: Impression: 1 right lower lobe pneumonia involving the posterior segment of the right lower lobe. The CAT scan was reviewed and there is also a questionable narrowing of the right lower lobe bronchus, consider mucous plugging/tracheal bronchomalacia. She did undergo bronchoscopy with BAL. Cultures are negative. Pathology negative. Early on Omnicef. 2 mediastinal lymph node calcification with questionable bronchiolith adjacent to the right lower lobe bronchus, a marker of a previous granulomatous infection of the lung. 3 lactic acidosis, improving 4 acute hypoxic respiratory failure and shortness of breath secondary to above 5 chronic bronchial asthma with some exacerbation secondary to above 6 history paroxysmal atrial fibrillation currently in sinus rhythm 7 history of schizophrenia 8 hypertension 9 diabetes mellitus 10 hyperlipidemia 11 chronic lower extremity edema 12 previous history of left axillary abscess/cellulitis with MSSA post I&D 13 history of shingles 14 macular degeneration 15 history of coronary artery disease with 50% lesion in the LAD 16 peripheral neuropathy 17 chronic anxiety 18 chronic migraines. 19 peripheral neuropathy Plan: The patient was seen and evaluated by Dr. Ozuna. She is improved clinically. May need to be evaluated for home oxygen. Currently on Omnicef. Continue bronchodilators. Increase her activity as tolerated. We'll continue to follow and make further recommendations based on her clinical status. I, the cosigning physician, performed a history & physical examination of the patient. Lungs sounds few scattered rhonchi, diminished. Maintaining good O2 saturations in the 90s on 4 L/m per nasal cannula.. I discussed the assessment and plan of care with my nurse practitioner, Fernanda Mendoza. I attest to the above note as dictated by her.
[2018-11-12 12:21] LABS: Glucose,Whole Blood 138 mg/dL (75-99)
[2018-11-12 18:04] LABS: Glucose,Whole Blood 175 mg/dL (75-99)
[2018-11-12 20:21] LABS: Glucose,Whole Blood 139 mg/dL (75-99)
[2018-11-12] MEDS: ATORVASTATIN 10 MG TAB PO SCH (20:52)
--- NOTE | 2018-11-12 21:46 | P.PN ---
Progress Note - Text Progress Note Date: 11/12/18 Presenting complaint: Shortness Interval history: Admitted with pneumonia. Acute hypoxic respiratory failure. Status post bronchoscopy. Today-sitting up in a chair. On nasal cannula 4 L. Coughing and bringing up sputum. Slightly short of breath. Did tolerate her breakfast. Review of systems: Was done for constitutional, cardiovascular, GI, pulmonary. relevant finding as above Current medications are reviewed and include: DuoNeb, Eliquis, Omnicef by mouth Lasix, Neurontin, by mouth prednisone, On examination: VITAL SIGNS: 98.3, 84, 16, 121/59, 91% on 4 L GENERAL APPEARANCE: Sitting up in a chair, awake HEENT: Normal external appearance of nose and ear. Oral cavity normal EYES: Pupils equal. Conjunctiva normal. NECK: JVD not raised. Mass not palpable. RESPIRATORY: Respiratory effort increased, decreased breath sounds and minimal wheezing. CARDIOVASCULAR: First and second sounds normal. No edema. ABDOMEN: Soft. Liver and spleen not palpable. No tenderness. No mass palpable. PSYCHIATRY: Alert and oriented x3. Mood and affect some anxiety. Investigations: Accu-Cheks 157, 138, 135 [place] culture results -normal respiratory kush Assessment: -Right lower lobe pneumonia suspected gram-negative organism, but clinical improvement -Acute hypoxic respiratory failure from pneumonia, but clinical improvement -Suspect underlying acute delirium probably from high flow oxygen improving. -Diabetes mellitus type 2 chronically on oral hypoglycemic uncontrolled with hyperglycemia -Hyperlipidemia -Essential hypertension -Obesity BMI 35.3 -Hiatal hernia -Peripheral neuropathy idiopathic -GERD -Schizoaffective disorder, bipolar type Plan: Overall patient doing better. On 4 L oxygen. On oral antibiotic. Oral prednisone. The may be some fluid overload. We'll give some Lasix in the morning. Care was discussed with the patient.
[2018-11-13] MEDS: IPRATROPIUM-ALBUTEROL 3 ML NEB INHALATION SCH ×6 (02:59→23:08)
[2018-11-13 06:01] LABS: Glucose,Whole Blood 116 mg/dL (75-99)
[2018-11-13] MEDS: INSULIN ASPART (NovoLOG) 100 UNIT/ML VIAL SQ SCH ×4 (06:09→22:30)
[2018-11-13] MEDS: FUROSEMIDE 10 MG/ML 4 ML VIAL IV SCH ×2 (06:16→12:14)
[2018-11-13] MEDS: GABAPENTIN 300 MG CAP PO SCH ×2 (08:20→16:53)
[2018-11-13] MEDS: APIXABAN 5 MG TAB PO SCH ×2 (08:20→19:40)
[2018-11-13] MEDS: DIGOXIN 125 MCG TAB PO SCH (08:20)
[2018-11-13] MEDS: guaiFENesin 600 MG TABLET.ER PO SCH ×2 (08:20→19:39)
[2018-11-13] MEDS: OXYBUTYNIN XL 5 MG TAB.ER.24 PO SCH ×2 (08:20→19:39)
[2018-11-13] MEDS: predniSONE 20 MG TAB PO SCH (08:20)
[2018-11-13] MEDS: METOPROLOL TARTRATE 25 MG TAB PO SCH ×2 (08:20→19:39)
[2018-11-13] MEDS: CEFDINIR 300 MG CAP PO SCH (08:20)
[2018-11-13] MEDS: CITALOPRAM HYDROBROMIDE 20 MG TAB PO SCH (08:20)
[2018-11-13] MEDS: ISOSORBIDE MONONITRATE ER 60 MG TAB.ER.24H PO SCH (08:20)
[2018-11-13] MEDS: cloZAPine 100 MG TAB PO SCH (08:20)
[2018-11-13 12:40] LABS: Glucose,Whole Blood 203 mg/dL (75-99)
--- NOTE | 2018-11-13 13:49 | P.PN ---
Subjective Progress Note Date: 11/13/18 Principal diagnosis: acute community-acquired right lower lobe pneumonia 63-year-old female patient was hospitalized for a right lower lobe pneumonia. The patient lives in an AFC home and she is known to have asthma chronic paroxysmal atrial fibrillation maintained on long-term medical condition with Eliquis, hypertension and hyperlipidemia. She is also known to have coronary artery disease. She also has fci history of psychiatric disorder including schizophrenia and a component of tardive dyskinesia. Has been expressing increased dyspnea cough venous sputum production of fever and chills. She was admitted to the hospital and she was diagnosed having a right lower lobe pneumonia pH of present with some pleuritic chest pain increased shortness of breath. She was given Rocephin and Zithromax and admitted to the medical floor. Initial lactic acid level was at 2.8. Subsequently overnight lactic acid level gradually went up. Lactic acid level peaked at 11.2 and subsequently dropped down to 3.8. During this time the patient was receiving IV antibiotics and fluids. She continued to be awake and alert and there was no lethargy or altered mentation. No further worsening in respiratory distress. A review the CAT scan of the chest that was on overnight and is clearly shows a right lower lobe pneumonia involving the posterior-superior segment which obviously raises the concern for aspiration. Nevertheless, the patient seems to be swallowing her food fine without any major difficulties. This morning, she is on 9 L of oxygen by nasal cannula with a pulse ox of 93% she is afebrile she is not tachycardic and her heart rate is sinus at the rate of 90. No nausea. No vomiting. No abdominal pain. He is receiving also IV fluids with normal state rate of 100 mL an hour. Overnight she was given more fluids and lites fluid balance is +2.5 L. The patient is seen today 11/07/2018 in follow-up on the selective care unit. She is currently resting comfortably in bed. Awake and alert in no acute distress. She still has a loose nonproductive cough. Requiring 10 L high flow nasal cannula to maintain O2 saturations in the 90s. Somewhat tachypneic. Currently afebrile. Hemodynamically stable. His x-ray continues to show focal peripheral left basilar infiltrate. Blood culture showing no growth thus far. White count 13.5. Hemoglobin 11.0. Creatinine 0.77. ProBNP 1920. Currently on DuoNeb inhalations, ceftriaxone and azithromycin, IV Solu-Medrol. The patient is seen today 11/08/2018 in follow-up on the selective care unit. She remains awake and alert. She continues with a loose congested cough. No able to expectorate small amounts. She remains quite hypoxic requiring 15 L high flow nasal cannula. She's been afebrile. Hemodynamically stable. She is continued on bronchodilators, IV Solu-Medrol, antibiotics in the form of ceftriaxone and azithromycin. Blood culture reveals no growth. The plan is for bronchoscopy with BAL tomorrow morning. The patient is seen today 11/09/2018 in follow-up on the selective care unit. She is awake and alert in no acute distress. Breathing a little bit easier today as compared to yesterday. Still with a loose nonproductive cough. Quite congested. She is down to 10 L high flow nasal cannula and maintaining good O2 saturations in the upper 90s. She's been afebrile. Hemodynamically stable. She remains on ceftriaxone and azithromycin. The plan is for bronchoscopy with BAL today. The patient is seen today 11/10/2017 in follow-up on the selective care unit. Currently sitting up in a chair at the bedside. Awake and alert in no acute distress. Breathing quite a bit better today as compared to yesterday. She did undergo bronchoscopy with BAL cultures are pending. She remains on ceftriaxone and azithromycin for now. Continued on bronchodilators and IV Solu-Medrol. Maintaining good O2 saturations and down to 2 L high flow nasal cannula. The patient is seen today 11/11/2018 in follow-up on the selective care unit. She is awake and alert in no acute distress. She is up in a chair at the bedside. Doing much better with an occasional dry nonproductive cough. No worsening shortness of breath. Maintaining good O2 saturations in the 90s on room air. She's been afebrile. Hemodynamically stable. Bronchial wash cultures reveal no growth. She remains on bronchodilators and ceftriaxone. The patient is seen today 11/12/2018 in follow-up on the selective care unit. She is currently sitting up at the bedside. Awake and alert in no acute distress. Currently maintaining good O2 saturations in the upper 90s on 4 L/m per nasal cannula. She's afebrile. Hemodynamically stable. Cultures from the bronchial wash reveal no growth. Negative for malignancy. Currently on Omnicef. Patient was reevaluated today on 11/13/2018, patient is getting worse again, she has more cough more wheezing, and more shortness of breath, back on 4 L nasal cannula, and her physical examination is clearly consistent with worsening pulmonary findings with diffuse crackles and rhonchi and wheezes bilaterally. I have a strong feeling that the patient may have to be bronchoscoped again.she felt much better post bronchoscopy for few days, but now her pulmonary status is clearly deteriorating again. Objective - Vital Signs Vital signs: Vital Signs Temp 98.1 F 11/13/18 12:00 Pulse 92 11/13/18 12:03 Resp 22 11/13/18 12:00 BP 109/58 11/13/18 12:00 Pulse Ox 91 L 11/13/18 12:00 Intake & Output 11/12/18 11/13/18 11/13/18 18:59 06:59 18:59 Output Total 1300 Balance -1300 Weight 89.6 kg Output: Urine 1300 Other: Voiding Method Bedside Commode Bedside Commode Bedside Commode # Voids 1 2 - Exam Physical Exam: Revealed a 63-year-old female in no distress, on 4 L nasal cannula. Head: Atraumatic, normocephalic. HEENT:[Neck is supple.] [No neck masses.] [No thyromegaly.] [No JVD.]moist mucous membranes, no thrush. Chest: [diffuse crackles and rhonchi and wheezes bilaterally. Symmetrical chest expansion, no chest wall tenderness. Cardiac Exam: [Normal S1 and S2, no S3 gallop, no murmur.] Abdomen: [Soft, nontender, no megaly, no rebound, no guarding, normal bowel sounds.] Extremities: [No clubbing, no edema, no cyanosis.] Neurological Exam: [No focal neurologic deficit.]alert oriented 3. Skin: No rashes. Lymphatics: No lymphadenopathy. - Labs CBC & Chem 7: 11/09/18 06:39 11/07/18 05:52 Labs: Abnormal Lab Results - Last 24 Hours (Table) 11/12/18 11/12/18 11/13/18 Range/Units 17:52 20:19 05:59 POC Glucose (mg/dL) 175 H 139 H 116 H (75-99) mg/dL 11/13/18 Range/Units 12:19 POC Glucose (mg/dL) 203 H (75-99) mg/dL Assessment and Plan Assessment: 1 acute community-acquired pneumonia mostly involving the right lower lobe, status post bronchoscopy and lavage, but cultures were nondiagnostic. Patient is developing worsening pulmonary symptoms hence the patient may have to be bronchoscoped again. She did have significant tracheomalacia, and I believe repeat bronchoscopy will likely be appropriate. Doubt that the patient could be discharged home with her present condition. 2 mediastinal lymph node calcification with questionable bronchiolith adjacent to the right lower lobe bronchus, a marker of a previous granulomatous infection of the lung. 3 lactic acidosis, Resolved 4 acute hypoxic respiratory failure and shortness of breath secondary to above 5 chronic bronchial asthma with some exacerbation secondary to above 6 history paroxysmal atrial fibrillation currently in sinus rhythm 7 history of schizophrenia 8 hypertension 9 diabetes mellitus 10 hyperlipidemia 11 chronic lower extremity edema 12 previous history of left axillary abscess/cellulitis with MSSA post I&D 13 history of shingles 14 macular degeneration 15 history of coronary artery disease with 50% lesion in the LAD 16 peripheral neuropathy 17 chronic anxiety 18 chronic migraines. 19 peripheral neuropathy Recommendation:placed patient back on IV antibiotics, high-dose of steroids, continue bronchodilators, she will be assessed by Dr. Dr. Bunch in the morning, she may have to be considered for possible repeat bronchoscopy and lavage. Prog nosis obviously is poor and guarded. Time with Patient: Less than 30
[2018-11-13] MEDS: methylPREDNISolone SOD SUCCI 125 MG/2 ML VIAL IV SCH ×3 (16:53→23:47)
[2018-11-13] MEDS: AMOXIC-POT CLAV 875-125MG 1 EACH TAB PO SCH ×2 (16:53→19:45)
[2018-11-13 17:37] LABS: Glucose,Whole Blood 168 mg/dL (75-99)
[2018-11-13] MEDS: ATORVASTATIN 10 MG TAB PO SCH (19:40)
--- NOTE | 2018-11-13 20:59 | P.PN ---
Progress Note - Text Progress Note Date: 11/13/18 Presenting complaint: Shortness Interval history: Admitted with pneumonia. Acute hypoxic respiratory failure. Status post bronchoscopy. Today-s up in a chair.. Still has a cough. Did tolerate some meals.. On nasal cannula. Still congested Review of systems: Was done for constitutional, cardiovascular, GI, pulmonary. relevant finding as above Current medications are reviewed and include: DuoNeb every 4, Eliquis, Omnicef discontinued, started on Augmentin Lasix, Neurontin, put back on IV Solu-Medrol, On examination: VITAL SIGNS: 98.1, 72, 22, 109/58, 91% on 4 L GENERAL APPEARANCE: Sitting up in a chair, tired, but sleepy HEENT: Normal external appearance of nose and ear. Oral cavity normal EYES: Pupils equal. Conjunctiva normal. NECK: JVD not raised. Mass not palpable. RESPIRATORY: Respiratory effort increased, decreased breath sounds and minimal wheezing. Some crackles CARDIOVASCULAR: First and second sounds normal. No edema. ABDOMEN: Soft. Liver and spleen not palpable. No tenderness. No mass palpable. PSYCHIATRY: Head lethargic but answering questions Investigations: Accu-Cheks noted-116, 203, 168 ProBNP 220 Assessment: -Right lower lobe pneumonia suspected gram-negative organism, but clinical improvement -Acute hypoxic respiratory failure from pneumonia, slow to respond -Persistent bronchial asthma with some exacerbation -Suspect underlying acute delirium probably from high flow oxygen improving., That she did improve -Diabetes mellitus type 2 chronically on oral hypoglycemic uncontrolled with hyperglycemia -Hyperlipidemia -Essential hypertension -Obesity BMI 35.3 -Hiatal hernia -Peripheral neuropathy idiopathic -GERD -Schizoaffective disorder, bipolar type Plan: Seen by Dr. Busch earlier today. He is put the patient back on IV Solu- Medrol. Also switched to Augmentin. He suggested repeated bronchoscopy. Which is not a bad idea. Repeat labs in the morning
[2018-11-13] MEDS ORDERED: NITROGLYCERIN SL TABS 0.4 MG TAB SUBLINGUAL STA (21:16)
[2018-11-13 21:30] LABS: Glucose,Whole Blood 179 mg/dL (75-99)
[2018-11-13 21:52] LABS: ABG Base Excess 7.1 mmol/L; ABG HCO3 31 mmol/L (21-25); ABG Oxygen Saturation 97.7 % (94-97); ABG PCO2 43 mmHg (35-45); ABG PH 7.47 (7.35-7.45); ABG PO2 95 mmHg (83-108); ABG TCO2 32 mmol/L (19-24); Allen Test Performed? Yes
--- NOTE | 2018-11-13 22:43 | CT ---
EXAM: CT Angiography Chest With Intravenous Contrast CLINICAL HISTORY: ITS.REASON CT Reason: possible PE TECHNIQUE: Axial computed tomographic angiography images of the chest with intravenous contrast using pulmonary embolism protocol. CTDI is 12.07 mGy and DLP is 292.2 mGy-cm. This CT exam was performed using one or more of the following dose reduction techniques: automated exposure control, adjustment of the mA and/or kV according to patient size, and/or use of iterative reconstruction technique. MIP reconstructed images were created and reviewed. COMPARISON: No relevant prior studies available. FINDINGS: Pulmonary arteries: Possible eccentric filling defect in a pulmonary arterial branch to the right upper lobe (series 401, image 38). This could represent a small chronic embolus or artifact. No evidence of an acute pulmonary embolus. Aorta: No acute findings. No thoracic aortic aneurysm. Lungs: Bilateral lower lobe atelectasis/pneumonitis. More focal consolidation in the left lower lobe. Correlate for infectious symptoms. Pleural space: Unremarkable. No significant effusion. No pneumothorax. Heart: Unremarkable. No cardiomegaly. No significant pericardial effusion. No evidence of RV dysfunction. Bones/joints: No acute fracture. No dislocation. Soft tissues: Unremarkable. Lymph nodes: Calcified mediastinal lymph nodes. IMPRESSION: No acute pulmonary embolus. Possible eccentric filling defect. Pulmonary arterial branch the right upper lobe. This could represent a small chronic embolus or artifact. Bilateral lower lobe atelectasis versus pneumonitis. Consolidative opacity in the left lower lobe more worrisome for an infectious process.
[2018-11-13] MEDS: LACTATED RINGERS 1,000 ML IV SCH (23:34)
[2018-11-14] MEDS: IPRATROPIUM-ALBUTEROL 3 ML NEB INHALATION SCH ×5 (02:30→20:06)
[2018-11-14 06:26] LABS: Glucose,Whole Blood 156 mg/dL (75-99)
[2018-11-14] MEDS: methylPREDNISolone SOD SUCCI 125 MG/2 ML VIAL IV SCH ×4 (06:29→23:48)
[2018-11-14] MEDS: INSULIN ASPART (NovoLOG) 100 UNIT/ML VIAL SQ SCH ×4 (06:30→21:33)
[2018-11-14 06:31] LABS: Basophils % (A) 0 %; Eosinophils % (A) 0 %; HCT 39.1 % (34.0-46.0); HGB 12.6 gm/dL (11.4-16.0); Lymphocytes # (A) 0.7 k/uL (1.0-4.8); Lymphocytes % (A) 6 %; MCH 29.7 pg (25.0-35.0); MCHC 32.1 g/dL (31.0-37.0); MCV 92.5 fL (80.0-100.0); Mean Platelet Volume 7.1; Monocytes # (A) 0.2 k/uL (0-1.0); Monocytes % (A) 1 %; Neutrophils # (A) 12.1 k/uL (1.3-7.7); Neutrophils % (A) 92 %; Platelet Count 240 k/uL (150-450); RBC 4.23 m/uL (3.80-5.40); RDW 12.9 % (11.5-15.5); WBC 13.1 k/uL (3.8-10.6)
[2018-11-14 06:41] LABS: African American GFR (CKD) >90 (>60 ml/min/1.73 sqM); Anion Gap 7 mmol/L; Blood Urea Nitrogen 31 mg/dL (7-17); Calcium 8.7 mg/dL (8.4-10.2); Carbon Dioxide 30 mmol/L (22-30); Chloride 102 mmol/L (98-107); Glucose 168 mg/dL (74-99); Potassium 4.8 mmol/L (3.5-5.1); Sodium 139 mmol/L (137-145)
[2018-11-14] MEDS: ISOSORBIDE MONONITRATE ER 60 MG TAB.ER.24H PO SCH (08:27)
[2018-11-14] MEDS: cloZAPine 100 MG TAB PO SCH (08:27)
[2018-11-14] MEDS: guaiFENesin 600 MG TABLET.ER PO SCH ×2 (08:27→20:43)
[2018-11-14] MEDS: OXYBUTYNIN XL 5 MG TAB.ER.24 PO SCH ×2 (08:27→20:43)
[2018-11-14] MEDS: APIXABAN 5 MG TAB PO SCH ×2 (08:27→20:43)
[2018-11-14] MEDS: METOPROLOL TARTRATE 25 MG TAB PO SCH ×2 (08:27→20:43)
[2018-11-14] MEDS: DIGOXIN 125 MCG TAB PO SCH (08:27)
[2018-11-14] MEDS: AMOXIC-POT CLAV 875-125MG 1 EACH TAB PO SCH ×2 (08:27→20:43)
[2018-11-14] MEDS: GABAPENTIN 300 MG CAP PO SCH ×2 (08:27→17:14)
[2018-11-14] MEDS: CITALOPRAM HYDROBROMIDE 20 MG TAB PO SCH (08:27)
--- NOTE | 2018-11-14 09:19 | CDI ---
Documentation Clarification Form Date: 11/14/2018 8:43:22 AM From: Marisa Johnson RN CCDS Phone: [phone] Admit Date: 11/05/2018 5:28:00 AM Patient Name: Diana Corey Visit Number: [id number] Discharge Date: ATTENTION: The Clinical Documentation Specialists (CDI) and [facility] Coding Staff appreciate your assistance in clarifying documentation. Please respond to the clarification below the line at the bottom and electronically sign. The CDI & [facility] Coding staff will review the response and follow-up if needed. Please note: Queries are made part of the Legal Health Record. If you have any questions, please contact the author of this message via ITS. Dr. Marvin Elizabeth The diagnosis Sepsis was documented in the [facility] through November 09, [address] Perkins, but is not consistently noted in subsequent documentation. History/Risk Factors: 64 year old female presents to the ED with a productive cough fever and chills. Medical history COPD, DM , HTN. Clinical Indicators: Vss 137/76 91 101.3 20 90% Wbc 1.6; Hgb 13.0; Pco2 27; ABG p02 113; Hco3 15; CO2 17, ) oxygen saturation 98.3; lasctic acid 2.8; 5.0; 112; Treatment: Tylenol; Rocpehin ivpb ; Azithromax po d/cd, 5L 0.9ns ivfl; Omnicef po d/cd changed to Augmentin po Please clarify if Sepsis was: Sepsis Present/active this admission Sepsis Treated and resolved this admission Sepsis Ruled out Other, please specify Clinically unable to determine (Last Revision: February 2018-New) sepsis , POA MTDD
--- NOTE | 2018-11-14 11:02 | XR ---
EXAMINATION TYPE: XR chest 1V portable DATE OF EXAM: 11/14/2018 COMPARISON: Prior chest x-ray 11/11/[address] 11/13/2018 HISTORY: Pneumonia TECHNIQUE: Single frontal view of the chest is obtained. FINDINGS: Postop changes are noted to the cervical spine. There are overlying cardiac leads. Patchy retrocardiac density, blunting of the left costophrenic angle persists. Heart size is stable. Bandlik e area of increased attenuation at the right hilar region may represent subsegmental atelectasis. The re is no pneumothorax. IMPRESSION: Correlate for left lower lobe pneumonia, basilar atelectasis, follow-up recommended.
[2018-11-14 11:35] LABS: Glucose,Whole Blood 180 mg/dL (75-99)
--- NOTE | 2018-11-14 13:02 | P.PN ---
Progress Note - Text Progress Note Date: 11/14/18 Presenting complaint: Shortness Interval history: Admitted with pneumonia. Acute hypoxic respiratory failure. Status post bronchoscopy. Today-tired and lethargic though arousable. Back on high flow oxygen. He ate some diet. Congested. Bring up phlegm. Review of systems: Was done for constitutional, cardiovascular, GI, pulmonary. relevant finding as above Current medications are reviewed and include: DuoNeb every 4, Eliquis, Omnicef discontinued, started on Augmentin Lasix, Neurontin, put back on IV Solu-Medrol, On examination: VITAL SIGNS: 97.8, 80, 16, 110/51, 94% on 10 L GENERAL APPEARANCE: Sitting up in a chair, tired, lethargic HEENT: Normal external appearance of nose and ear. Oral cavity normal EYES: Pupils equal. Conjunctiva normal. NECK: JVD not raised. Mass not palpable. RESPIRATORY: Respiratory effort increased, decreased breath sounds and minimal wheezing. Some crackles CARDIOVASCULAR: First and second sounds normal. No edema. ABDOMEN: Soft. Liver and spleen not palpable. No tenderness. No mass palpable. PSYCHIATRY: lethargic but answering questions Investigations: White count 13.1 hemoglobin 12.6 potassium 4.8 Assessment: -Right lower lobe pneumonia suspected gram-negative organism, but clinically worsening -Acute hypoxic respiratory failure from pneumonia, worsening -Persistent bronchial asthma with worsening -Suspect underlying acute delirium probably from high flow oxygen improving., That she did improve -Diabetes mellitus type 2 chronically on oral hypoglycemic uncontrolled with hyperglycemia -Hyperlipidemia -Essential hypertension -Obesity BMI 35.3 -Hiatal hernia -Peripheral neuropathy idiopathic -GERD -Schizoaffective disorder, bipolar type Plan: Patient is clinically looking worse and also requiring more oxygen. Did communicate to Mrs. Sanchez DUBOSE from pulmonary service for possible repeat bronchoscopy with lavage. Meantime antibiotic steroids bronchodilators to continue. We'll add nebulized steroids
--- NOTE | 2018-11-14 14:39 | P.CRDCN ---
History of Present Illness Consult date: 11/14/18 Requesting physician: Marvin Elizabeth Consult reason: chest pain Chief complaint: Productive cough, fever and chills History of present illness: Is is a 63-year-old female admitted to the hospital with right lower lobe pneumonia. She resides in an adult foster retirement, history of asthma, paroxysmal atrial fibrillation, maintained on Eliquis, hypertension, hyperlipidemia. She states that she follows regularly with Dr. Villegas in the office. She has had prior cardiac catheterization several years ago which revealed a 50% lesion in her LAD. Patient also has known schizophrenia and a component of dyskinesia. She presented to the hospital with symptoms of productive cough with associated fever and chills. She is receiving treatment for pneumonia, pulmonary is following. She did have one bronchoscopy performed with lavage since she's been here. Last evening patient had some symptoms of chest discomfort which a cardiology consultation is requested. According to the patient, the pain that she had was a sharp stabbing pain in the right side of her chest, chest wall continues to be somewhat tender on palpation today. Blood pressure 110/50 with a heart rate in the 80s, 94% on 10 L of oxygen. White cell count today 13.1, hemoglobin 12.6, platelet count 240. Sodium 139, potassium 4.8, UN 31 and creatinine 0.8. Troponin 0.012 with a BNP of 220. At the time of our examination this morning, she is currently chest pain-free. Patient continues to have a significant cough, diffuse crackles and rhonchi bilaterally. Pulmonary intense to do another bronch. Past Medical History Past Medical History: COPD, Diabetes Mellitus, Hyperlipidemia, Hypertension Additional Past Medical History / Comment(s): Bronchial asthma, obesity, chronic lower extremity edema, L axillae cellulitis/abscess-cultures grew pep tostreptococcus and MSSA-had I&D . Other hx: shingles/staph, R eye macular degeneration, TIA, hiatal hernia, uterine cancer with hysterectomy, tardive dyskinesia, peripheral neuropathy cause unknown, migraines, sinus problems has coronary artery disease with 50% lesion of the LAD, paroxysmal atrial fibrillation, hypertension, acid reflux, schizophrenic disorder, anxiety, peripheral neuropathy, wound vac, PICC line (removed), retention w/ chronic Bell. History of Any Multi-Drug Resistant Organisms: None Reported Past Surgical History: Adenoidectomy, Back Surgery, Cholecystectomy, Ear Surgery, Heart Catheterization, Hysterectomy, Tonsillectomy Additional Past Surgical History / Comment(s): I & D L axillae, L eye surgery for lazy eye, bilateral cataract removal, bilateral myringotomy/tubes, colonoscopy, cardiac cath on 07/24/2016 with moderate stenosis of LAD noted - no stenting at that time recommend medical management and return for angioplasty if sx persist Past Anesthesia/Blood Transfusion Reactions: No Reported Reaction Past Psychological History: Anxiety, Depression, Schizoaffective Disorder Additional Psychological History / Comment(s): Is normally a resident of a detention. [facility] Smoking Status: Never smoker Past Alcohol Use History: None Reported Additional Past Alcohol Use History / Comment(s): Pt states she used to drink occasionally but has not had any alcohol since 2006. Denies alcoholism. Past Drug Use History: None Reported - Past Family History Mother Family Medical History: Myocardial Infarction ([place]) Additional Family Medical History / Comment(s): Mother at 72 yrs. Father Family Medical History: Cancer Additional Family Medical History / Comment(s): Throat cancer; father at 72 yrs. Brother(s) Family Medical History: Cancer Additional Family Medical History / Comment(s): Liver cancer Medications and Allergies Home Medications Medication Instructions Recorded Confirmed Type Gabapentin [Neurontin] 300 mg PO BID@0900,1700 07/21/16 11/05/18 History Atorvastatin [Lipitor] 10 mg PO HS 12/30/16 11/05/18 History Omeprazole 20 mg PO DAILY PRN 12/30/16 11/05/18 History Vit C/E/Zn/Coppr/Lutein/Zeaxan 1 cap PO DAILY 12/30/16 11/05/18 History [Preservision Areds 2 Softgel] Apixaban [Eliquis] 5 mg PO BID tab 01/15/17 11/05/18 Rx Digoxin [Lanoxin] 125 mcg PO DAILY tab 01/15/17 11/05/18 Rx Metoprolol Tartrate [Lopressor] 25 mg PO BID 02/25/17 11/05/18 History Oxybutynin Xl [Ditropan XL] 5 mg PO BID 02/25/17 11/05/18 History Isosorbide Mononitrate ER [Imdur] 60 mg PO DAILY tab 03/01/17 11/05/18 Rx Citalopram Hydrobromide [CeleXA] 40 mg PO DAILY 11/05/18 11/05/18 History Furosemide [Lasix] 20 mg PO DAILY 11/05/18 11/05/18 History cloZAPine [Clozaril] 150 mg PO DAILY 11/05/18 11/05/18 History metFORMIN HCL [Glucophage] 500 mg PO DAILY 11/05/18 11/05/18 History Allergies Allergy/AdvReac Type Severity Reaction Status Date / Time bee venom protein (honey bee) Allergy Anaphylaxis Verified 11/05/18 08:37 lorazepam [From Ativan] Allergy Unknown Verified 11/05/18 08:37 Physical Exam Vitals: Vital Signs Temp Pulse Pulse Resp BP Pulse Ox 11/14/18 12:16 84 11/14/18 12:08 80 11/14/18 12:00 97.8 F 80 16 110/51 94 L 11/14/18 09:04 76 11/14/18 08:53 74 94 L 11/14/18 08:33 98.1 F 74 21 122/57 92 L 11/14/18 03:29 65 15 11/14/18 03:25 65 15 116/65 92 L 11/14/18 02:39 68 18 11/14/18 02:30 69 18 11/13/18 23:45 69 17 11/13/18 23:44 69 17 112/71 92 L 11/13/18 23:24 66 16 11/13/18 23:09 68 16 11/13/18 20:43 95 11/13/18 20:42 93 11/13/18 20:33 94 11/13/18 20:00 98.3 F 85 20 123/56 93 L 11/13/18 16:20 86 11/13/18 16:11 82 92 L 11/13/18 16:00 98.2 F 60 16 113/59 93 L Intake and Output 11/13/18 11/14/18 11/14/18 22:59 06:59 14:59 Intake Total 400 300 Balance 400 300 Intake: Oral 400 300 Other: Voiding Method Bedside Commode Bedside Commode Bedside Commode # Voids 2 Weight 86.9 kg PHYSICAL EXAMINATION: GENERAL: She 3-year-old female in no acute distress at the time of my examination HEENT: Head is atraumatic, normocephalic. Pupils equal, round. Sclera anic teric. Conjunctiva are clear. Mucous membranes of the mouth are moist. Neck is supple. There is no elevated jugular venous pressure. No carotid bruit is heard. HEART EXAMINATION: S1 and S2 systolic murmur is heard. CHEST EXAMINATION: Lungs reveal diffuse wheezes, rhonchi and crackles bilatera lly. ABDOMEN: Soft, nontender. Bowel sounds are heard. No organomegaly noted. EXTREMITIES: 2+ peripheral pulses with no evidence of peripheral edema and no calf tenderness noted. NEUROLOGIC patient is awake, alert and oriented 3 . . Results 11/14/18 06:08 11/14/18 06:08 Cardiac Enzymes 11/13/18 Range/Units 21:43 Troponin I <0.012 (0.000-0.034) ng/mL CBC 11/14/18 Range/Units 06:08 WBC 13.1 H (3.8-10.6) k/uL RBC 4.23 (3.80-5.40) m/uL Hgb 12.6 (11.4-16.0) gm/dL Hct 39.1 (34.0-46.0) % Plt Count 240 (150-450) k/uL Comprehensive Metabolic Panel 11/14/18 Range/Units 06:08 Sodium 139 (137-145) mmol/L Potassium 4.8 (3.5-5.1) mmol/L Chloride 102 (98-107) mmol/L Carbon Dioxide 30 (22-30) mmol/L BUN 31 H (7-17) mg/dL Creatinine 0.81 (0.52-1.04) mg/dL Glucose 168 H (74-99) mg/dL Calcium 8.7 (8.4-10.2) mg/dL Current Medications Generic Name Dose Route Start Last Admin Trade Name Freq PRN Reason Stop Dose Admin Albuterol/Ipratropium 3 ml 11/05/18 05:30 11/14/18 12:05 Duoneb 0.5 Mg-3 Mg/3 Ml Soln INHALATION 3 ml Q4H AMADA Administration Albuterol/Ipratropium 3 ml 11/05/18 12:51 Duoneb 0.5 Mg-3 Mg/3 Ml Soln INHALATION Q4H PRN Shortness Of Breath Or Wheezing Amoxicillin/Clavulanate Potassium 1 each 11/13/18 14:00 11/14/18 08:27 Augmentin 875-125 PO 1 each Q12HR AMADA Administration Apixaban 5 mg 11/05/18 09:30 11/14/18 08:27 Eliquis PO 5 mg BID AMADA Administration Atorvastatin Calcium 10 mg 11/05/18 21:00 11/13/18 19:40 Lipitor PO 10 mg HS AMADA Administration Budesonide 1 mg 11/14/18 13:03 Pulmicort INHALATION RT-BID AMADA Citalopram Hydrobromide 40 mg 11/05/18 09:30 11/14/18 08:27 Celexa PO 40 mg DAILY AMADA Administration Clozapine 150 mg 11/05/18 09:30 11/14/18 08:27 Clozaril PO 11/16/18 23:00 150 mg DAILY AMADA Administration Digoxin 125 mcg 11/05/18 09:30 11/14/18 08:27 Lanoxin PO 125 mcg DAILY AMADA Administration Formoterol Fumarate 20 mcg 11/14/18 20:00 Perforomist INHALATION RT-BID AMADA Gabapentin 300 mg 11/05/18 17:00 11/14/18 08:27 Neurontin PO 300 mg BID@0900,1700 AMADA Administration Guaifenesin 1,200 mg 11/05/18 22:15 11/14/18 08:27 Mucinex PO 1,200 mg Q12HR AMADA Administration Lactated Ringer's 1,000 mls @ 10 mls/hr 11/10/18 22:45 11/13/18 23:34 Lactated Ringers IV Not Given .Q24H [facility] Insulin Aspart 0 unit 11/05/18 17:30 11/14/18 12:11 Novolog SQ 2 unit ACHS AMADA Administration Protocol Isosorbide Mononitrate 60 mg 11/05/18 09:30 11/14/18 08:27 Imdur PO 60 mg DAILY AMADA Administration Methylprednisolone Sodium Succinate 60 mg 11/13/18 14:00 11/14/18 12:10 Solu-Medrol IV 60 mg Q6HR AMADA Administration Metoprolol Tartrate 25 mg 11/05/18 09:30 11/14/18 08:27 Lopressor PO 25 mg BID AMADA Administration Oxybutynin Chloride 5 mg 11/05/18 09:30 11/14/18 08:27 Ditropan Xl PO 5 mg BID AMADA Administration Pantoprazole Sodium 40 mg 11/05/18 09:20 Protonix PO DAILY PRN Heartburn Intake and Output 11/13/18 11/14/18 11/14/18 22:59 06:59 14:59 Intake Total 400 300 Balance 400 300 Intake: Oral 400 300 Other: Voiding Method Bedside Commode Bedside Commode Bedside Commode # Voids 2 Weight 86.9 kg 11/14/18 06:08 11/14/18 06:08 EKG Interpretations (text) Initial EKG showed normal sinus rhythm with nonspecific ST-T wave changes in the anterior lateral leads. Repeat EKG performed today did not reveal any significant changes. Assessment and Plan Plan: Assessment and plan 1 acute community-acquired pneumonia mostly involving the right lower lobe, status post bronchoscopy and lavage, but cultures were nondiagnostic. Repeat bronchoscopy scheduled today. 2 mediastinal lymph node calcification with questionable bronchiolith adjacent to the right lower lobe bronchus, a marker of a previous granulomatous infection of the lung. 3 lactic acidosis, Resolved 4 acute hypoxic respiratory failure and shortness of breath secondary to above 5 chronic bronchial asthma with some exacerbation secondary to above 6 history paroxysmal atrial fibrillation currently in sinus rhythm, on Eliquis for anticoagulation 7 history of schizophrenia 8 hypertension 9 diabetes mellitus 10 hyperlipidemia 11 chronic lower extremity edema 12 previous history of left axillary abscess/cellulitis with MSSA post I&D 13 history of shingles 14 macular degeneration 15 history of coronary artery disease with 50% lesion in the LAD 16 peripheral neuropathy 17 chronic anxiety 18 chest pain, atypical in nature. Troponins negative times one. EKG shows normal sinus rhythm with ST-T wave changes in the anterior lateral leads, repeat EKG performed today does not reveal any significant changes. Plan We will obtain an echocardiogram with Doppler study. 10 you Eliquis 5 mg twice a day along with Lipitor, Lanoxin, Imdur, Metoprolol. DNP note has been reviewed, I agree with a documented findings and plan of care. Patient was seen and examined.
--- NOTE | 2018-11-14 15:20 | PN ---
PROGRESS NOTE PULMONARY/CRITICAL CARE PROGRESS NOTE: DATE OF SERVICE: 11/14/2018 This is a 63-year-old female who was admitted with a diagnosis of acute community- acquired pneumonia, mostly involving the right lower lobe. Anyway, the patient is status post bronchoscopy and lavage. This was done a couple days ago by Dr. Ozuna on 11/09, I believe. Anyway, the patient is still having significant cough and phlegm. She has a hard time coughing up any phlegm. She does suffer from tracheobronchomalacia. The patient will be scheduled for repeat bronchoscopy either Wednesday or Wednesday. In addition, she was admitted with a diagnosis of lactic acidosis, which has resolved itself, acute hypoxemic respiratory failure, chronic bronchial asthma, paroxysmal atrial fibrillation, schizophrenia, hypertension, diabetes, hyperlipidemia, chronic lower extremity edema, history of left axillary abscess/cellulitis, shingles, macular degeneration, CAD, peripheral neuropathy, chronic anxiety, chronic migraines, and peripheral neuropathy. The patient was sitting in the bed. She does have a cough reminiscent of somebody with tracheobronchomalacia. Her cough is harsh, but she does have a hard time getting things up. She is agreeable to repeat bronchoscopy. Current vital signs are reviewed. Temperature 97.8, heart rate 80, respiratory rate 16, blood pressure 110/51 mean 70, 10 L high flow saturations are 94%. She appears in no acute distress. She does not have any conversational dyspnea. She does have a very harsh cough. There is no audible wheezing or use of accessory muscles. HEENT: Examination is grossly unremarkable. Nasal O2 in place. NECK: Supple. Full range of motion. No adenopathy. Neck veins are flat. CARDIOVASCULAR: Examination reveals regular rhythm and rate. Heart rate 84. S1, S2 normal. Heart sounds are distant. LUNGS: Reveal diffuse coarse rhonchi. No expiratory wheezes. No crackles. Breath sounds diminished throughout. ABDOMEN: Soft. Bowel sounds are heard. EXTREMITIES: Intact. No cyanosis, clubbing, or edema. SKIN: Without rash. NEUROLOGIC: Examination is brief but nonfocal. Microbiologic studies are thus far negative. Labs are reviewed. White count 13.1, hemoglobin 12.6, hematocrit 39.1, platelet count is normal. She had a blood gas yesterday showing a pO2 of 95, pCO2 of 43 and pH is 7.47. This is consistent with mild metabolic alkalosis. Sodium, potassium, chloride, CO2 all normal. Anion gap is 7. BUN and creatinine were 31 and 0.81. Medications are reviewed. Problem list is reviewed. ASSESSMENT: 1. Acute community-acquired pneumonia, status post bronchoscopy and BAL, on November 09, with sampling thus far being negative. 2. Severe tracheobronchomalacia. 3. Mediastinal lymph node count occasion with possible broncholith. 4. Lactic acidosis, resolved. 5. Acute hypoxemic respiratory failure. 6. Chronic bronchial asthma. 7. History of paroxysmal atrial fibrillation. 8. History of schizophrenia. 9. Hypertension. 10.Diabetes. 11.Hyperlipidemia. 12.Chronic lower extremity edema. 13.Previous history of left axillary abscess cellulitis with methicillin sensitive Staphylococcus aureus. 14.History of shingles. 15.Macular degeneration. 16.History of coronary artery disease with 50% lesion in the left anterior descending artery. 17.Peripheral neuropathy. 18.Chronic anxiety. 19.Chronic migraines. PLAN: The patient seems to be doing a bit better. She is having a difficult time clearing secretions. Her cough is wet and congested and very heavy. The patient will be scheduled for repeat bronchoscopy. Additional recommendations and suggestions are forthcoming. Prognosis is guarded. Labs, x-rays, medications and the lytes were all reviewed. MMODL / IJN: [id number] /
[2018-11-14] MEDS: BUDESONIDE 1 MG/2 ML NEBU INHALATION SCH ×2 (16:08→20:06)
[2018-11-14 16:39] LABS: Glucose,Whole Blood 151 mg/dL (75-99)
[2018-11-14] MEDS: FORMOTEROL FUMARATE 20 MCG/2 ML NEBU INHALATION SCH (20:06)
[2018-11-14] MEDS: ATORVASTATIN 10 MG TAB PO SCH (20:43)
[2018-11-14 21:26] LABS: Glucose,Whole Blood 243 mg/dL (75-99)
[2018-11-14] MEDS: LACTATED RINGERS 1,000 ML IV SCH (23:28)
[2018-11-15] MEDS: IPRATROPIUM-ALBUTEROL 3 ML NEB INHALATION SCH ×6 (01:36→20:40)
[2018-11-15 06:47] LABS: Glucose,Whole Blood 197 mg/dL (75-99)
[2018-11-15] MEDS: methylPREDNISolone SOD SUCCI 125 MG/2 ML VIAL IV SCH ×3 (06:50→17:42)
[2018-11-15] MEDS: INSULIN ASPART (NovoLOG) 100 UNIT/ML VIAL SQ SCH ×4 (06:50→21:19)
[2018-11-15 06:52] LABS: Basophils % (A) 0 %; Eosinophils # (A) 0.1 k/uL (0-0.7); Eosinophils % (A) 1 %; HCT 37.4 % (34.0-46.0); HGB 12.2 gm/dL (11.4-16.0); Lymphocytes # (A) 0.6 k/uL (1.0-4.8); Lymphocytes % (A) 5 %; MCH 29.4 pg (25.0-35.0); MCHC 32.7 g/dL (31.0-37.0); MCV 89.7 fL (80.0-100.0); Mean Platelet Volume 8.5; Monocytes # (A) 0.3 k/uL (0-1.0); Monocytes % (A) 2 %; Neutrophils # (A) 12.3 k/uL (1.3-7.7); Neutrophils % (A) 92 %; Platelet Count 236 k/uL (150-450); RBC 4.17 m/uL (3.80-5.40); WBC 13.4 k/uL (3.8-10.6)
[2018-11-15 07:07] LABS: African American GFR (CKD) >90 (>60 ml/min/1.73 sqM); Anion Gap 11 mmol/L; Calcium 8.8 mg/dL (8.4-10.2); Carbon Dioxide 20 mmol/L (22-30); Chloride 107 mmol/L (98-107); Glucose 186 mg/dL (74-99); Sodium 138 mmol/L (137-145)
[2018-11-15 07:09] LABS: Blood Urea Nitrogen 35 mg/dL (7-17); Potassium 4.8 mmol/L (3.5-5.1)
[2018-11-15] MEDS: BUDESONIDE 1 MG/2 ML NEBU INHALATION SCH ×2 (08:41→20:40)
[2018-11-15] MEDS: FORMOTEROL FUMARATE 20 MCG/2 ML NEBU INHALATION SCH ×2 (08:42→20:40)
[2018-11-15] MEDS: guaiFENesin 600 MG TABLET.ER PO SCH ×2 (09:49→21:11)
[2018-11-15] MEDS: AMOXIC-POT CLAV 875-125MG 1 EACH TAB PO SCH ×2 (09:49→21:11)
[2018-11-15] MEDS: GABAPENTIN 300 MG CAP PO SCH ×2 (09:49→17:42)
[2018-11-15] MEDS: DIGOXIN 125 MCG TAB PO SCH (09:49)
[2018-11-15] MEDS: ISOSORBIDE MONONITRATE ER 60 MG TAB.ER.24H PO SCH (09:49)
[2018-11-15] MEDS: CITALOPRAM HYDROBROMIDE 20 MG TAB PO SCH (09:49)
[2018-11-15] MEDS: APIXABAN 5 MG TAB PO SCH ×2 (09:49→21:11)
[2018-11-15] MEDS: cloZAPine 100 MG TAB PO SCH (09:49)
[2018-11-15] MEDS: METOPROLOL TARTRATE 25 MG TAB PO SCH ×2 (09:49→21:11)
[2018-11-15] MEDS: OXYBUTYNIN XL 5 MG TAB.ER.24 PO SCH ×2 (09:49→21:11)
[2018-11-15 11:22] LABS: Glucose,Whole Blood 204 mg/dL (75-99)
--- NOTE | 2018-11-15 11:38 | P.PN ---
Subjective Progress Note Date: 11/15/18 Principal diagnosis: Right lower lobe pneumonia 63-year-old female patient was hospitalized for a right lower lobe pneumonia. The patient lives in an AFC home and she is known to have asthma chronic paroxysmal atrial fibrillation maintained on long-term medical condition with E liquis, hypertension and hyperlipidemia. She is also known to have coronary artery disease. 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 Has been expressing increased dyspnea cough venous sputum production of fever and chills. She was admitted to the hospital and she was diagnosed having a right lower lobe pneumonia pH of present with some pleuritic chest pain increased shortness of breath. She was given Rocephin and Zithromax and admitted to the medical floor. Initial lactic acid level was at 2.8. Subsequently overnight lactic acid level gradually went up. Lactic acid level peaked at 11.2 and subsequently dropped down to 3.8. During this time the patient was receiving IV antibiotics and fluids. She continued to be awake and alert and there was no lethargy or altered mentation. No further worsening in respiratory distress. A review the CAT scan of the chest that was on overnight and is clearly shows a right lower lobe pneumonia involving the posterior-superior segment which obviously raises the concern for aspiration. Nevertheless, the patient seems to be swallowing her food fine without any major difficulties. This morning, she is on 9 L of oxygen by nasal cannula with a pulse ox of 93% she is afebrile she is not tachycardic and her heart rate is sinus at the rate of 90. No nausea. No vomi ting. No abdominal pain. He is receiving also IV fluids with normal state rate of 100 mL an hour. Overnight she was given more fluids and lites fluid balance is +2.5 L. The patient is seen today 11/15/2018 in follow-up on the selective care unit. She is currently sitting up in a chair at the bedside. Awake and alert in no acute distress. She is still having ongoing loose nonproductive cough. Still unable to bring up secretions. The plan is to probably repeat her bronchoscopy with BAL tomorrow. She remains on DuoNeb inhalations, Pulmicort and Perforomist inhalations, IV Solu-Medrol, antibiotics in the form of Augmentin. She has been slow to progress. Initial bronchial wash reveals no growth. Some Ingrid only. Objective - Vital Signs Vital signs: Vital Signs Temp 98 F 11/15/18 04:00 Pulse 80 11/15/18 09:08 Resp 18 11/15/18 04:00 BP 145/69 11/15/18 04:00 Pulse Ox 91 L 11/15/18 04:00 Intake & Output 11/14/18 11/15/18 11/15/18 18:59 06:59 18:59 Intake Total 720 800 240 Output Total 300 150 Balance 420 800 90 Weight 86.3 kg Intake: Oral 720 800 240 Output: Urine 300 150 Other: Voiding Method Bedside Commode Bedside Commode # Voids 1 2 1 - Exam General: Pleasant 63-year-old female patient in no acute distress, on 10L/min per nasal canula maintaining O2 saturations in the 90s. Derm: no unusual rashes/lesions no unusual ecchymoses, warm, dry Head: Head exam was generally normal. There was no scleral icterus or corneal arcus. Mucous membranes were moist. Eyes: Neck was supple and without jugular venous distension, thyromegaly, or carotid bruits. Carotids were easily palpable bilaterally. There was no adenopathy. Mouth: Mucus membranes moist Cardiovascular: S1 S2 reg, mildly tachycardic, no murmur, positive posterior tibial pulse bilateral, 1+ sukhjinder LE pitting edema, capillary refill less than 2 seconds Lungs: Few scattered rhonchi, diminished Abdominal: soft, nontender to palpation, no guarding, no appreciable organomegaly, normal bowel sounds Ext: no gross muscle atrophy, muscle strength 5 out of 5 in all 4 extremities grossly, no contractures, Neuro: CN II-XI grossly intact, light touch intact all 4 extremities, finger to nose within normal limits, Psych: Alert, oriented, appropriate affect Examination of the skin revealed no evidence of significant rashes, suspicious appearing nevi or other concerning lesions. - Labs CBC & Chem 7: 11/15/18 06:08 11/15/18 06:08 Labs: Abnormal Lab Results - Last 24 Hours (Table) 11/14/18 11/14/18 11/14/18 Range/Units 11:33 16:35 21:24 WBC (3.8-10.6) k/uL Neutrophils # (1.3-7.7) k/uL Lymphocytes # (1.0-4.8) k/uL Carbon Dioxide (22-30) mmol/L BUN (7-17) mg/dL Glucose (74-99) mg/dL POC Glucose (mg/dL) 180 H 151 H 243 H (75-99) mg/dL 11/15/18 11/15/18 11/15/18 Range/Units 06:08 06:08 06:45 WBC 13.4 H (3.8-10.6) k/uL Neutrophils # 12.3 H (1.3-7.7) k/uL Lymphocytes # 0.6 L (1.0-4.8) k/uL Carbon Dioxide 20 L (22-30) mmol/L BUN 35 H (7-17) mg/dL Glucose 186 H (74-99) mg/dL POC Glucose (mg/dL) 197 H (75-99) mg/dL 11/15/18 Range/Units 11:20 WBC (3.8-10.6) k/uL Neutrophils # (1.3-7.7) k/uL Lymphocytes # (1.0-4.8) k/uL Carbon Dioxide (22-30) mmol/L BUN (7-17) mg/dL Glucose (74-99) mg/dL POC Glucose (mg/dL) 204 H (75-99) mg/dL Microbiology - Last 24 Hours (Table) 11/09/18 12:50 Fungal Culture - Preliminary Bronchial Washings - Random Ingrid albicans Assessment and Plan Assessment: Impression: 1 right lower lobe pneumonia involving the posterior segment of the right lower lobe. She did undergo bronchoscopy with BAL. Cultures are negative. Pathology negative. Currently on Augmentin. 2 mediastinal lymph node calcification with questionable bronchiolith adjacent to the right lower lobe bronchus, a marker of a previous granulomatous infection of the lung. 3 lactic acidosis, improving 4 acute hypoxic respiratory failure and shortness of breath secondary to above 5 chronic bronchial asthma with some exacerbation secondary to above 6 history paroxysmal atrial fibrillation currently in sinus rhythm 7 history of schizophrenia 8 hypertension 9 diabetes mellitus 10 hyperlipidemia 11 chronic lower extremity edema 12 previous history of left axillary abscess/cellulitis with MSSA post I&D 13 history of shingles 14 macular degeneration 15 history of coronary artery disease with 50% lesion in the LAD 16 peripheral neuropathy 17 chronic anxiety 18 chronic migraines. 19 peripheral neuropathy Plan: The patient was seen and evaluated by Dr. Basha. She has been slow to progress and back on 10 L high flow nasal cannula. We'll plan to perform a repeat bronchoscopy with BAL tomorrow. Continue Augmentin, bronchodilators, IV Solu- Medrol. We'll continue to follow and make further recommendations based on her clinical status. I, the cosigning physician, performed a history & physical examination of the patient. Lungs sounds few scattered rhonchi, diminished. Maintaining good O2 saturations in the 90s on 10 L/m per nasal cannula.. I discussed the assessment and plan of care with my nurse practitioner, Fernanda Mendoza. I attest to the above note as dictated by her.
--- NOTE | 2018-11-15 11:57 | ECHOF ---
Referral Reason:chest pain MEASUREMENTS -------- HEIGHT: 160.0 cm WEIGHT: 86.6 kg BP: 110/51 RVIDd: 2.9 cm (< 3.3) IVSd: 1.7 cm (0.6 - 1.1) LVIDd: 2.4 cm (3.9 - 5.3) LVPWd: 1.8 cm (0.6 - 1.1) IVSs: 2.0 cm LVIDs: 1.7 cm LVPWs: 2.0 cm Ao Diam: 2.8 cm (2.0 - 3.7) AV Cusp: 2.0 cm (1.5 - 2.6) LA Diam: 3.2 cm (2.7 - 3.8) MV EXCURSION: 17.245 mm (> 18.000) MV EF SLOPE: 101 mm/s (70 - 150) EPSS: 0.3 cm MV E Ike: 0.63 m/s MV DecT: 246 ms MV A Ike: 0.84 m/s MV E/A Ratio: 0.76 RAP: 5.00 mmHg RVSP: 19.00 mmHg FINDINGS -------- Sinus rhythm. This was a technically difficult study with suboptimal views. The left ventricular size is normal. There is severe concentric left ventricular hypertrophy. Ove rall left ventricular systolic function is normal with, an EF between 65 - 70 %. The right ventricle is normal in size. The left atrial size is normal. The right atrial size is normal. Lumason used The aortic valve is trileaflet and appears structurally normal. The mitral valve leaflets are mildly thickened. Mild mitral annular calcification present. There is trace mitral regurgitation. Mild tricuspid regurgitation present. Right ventricular systolic pressure is normal at < 35 mmHg. The right ventricular systolic pressure, as measured by Doppler, is 19.00mmHg. There is no pulmonic regurgitation present. The aortic root size is normal. IVC Not well visulized. There is no pericardial effusion. CONCLUSIONS -------- 1. Sinus rhythm. 2. This was a technically difficult study with suboptimal views. 3. The left ventricular size is normal. 4. There is severe concentric left ventricular hypertrophy. 5. Overall left ventricular systolic function is normal with, an EF between 65 - 70 %. 6. The right ventricle is normal in size. 7. The left atrial size is normal. 8. The right atrial size is normal. 9. Lumason used 10. The aortic valve is trileaflet and appears structurally normal. 11. The mitral valve leaflets are mildly thickened. 12. Mild mitral annular calcification present. 13. There is trace mitral regurgitation. 14. Mild tricuspid regurgitation present. 15. Right ventricular systolic pressure is normal at < 35 mmHg. 16. There is no pulmonic regurgitation present. 17. The aortic root size is normal. 18. IVC Not well visulized. 19. There is no pericardial effusion. ASSEMBLER MOVEMENT: Thalia Aviles RDCS
[2018-11-15 16:58] LABS: Glucose,Whole Blood 212 mg/dL (75-99)
[2018-11-15] MEDS: ATORVASTATIN 10 MG TAB PO SCH (21:11)
[2018-11-15 21:20] LABS: Glucose,Whole Blood 187 mg/dL (75-99)
--- NOTE | 2018-11-15 22:39 | P.PN ---
Progress Note - Text Progress Note Date: 11/15/18 Presenting complaint: Shortness of breath Interval history: Admitted with pneumonia. Acute hypoxic respiratory failure. Status post bronchoscopy. Patient did respond to bronchoscopy and lavage. Has progressively gotten worse. Today-short of breath. Congested. Bring up sputum. On high flow oxygen. Did tolerate some diet. Sitting up in a chair. Review of systems: Was done for constitutional, cardiovascular, GI, pulmonary. relevant finding as above Current medications are reviewed and include: DuoNeb every 4, Eliquis, Omnicef discontinued, started on Augmentin Lasix, Neurontin, put back on IV Solu-Medrol, On examination: VITAL SIGNS: 97.7, 72, 16, 1 30 x 70, 94% on 8 L GENERAL APPEARANCE: Sitting up in a chair, but more awake today HEENT: Normal external appearance of nose and ear. Oral cavity normal EYES: Pupils equal. Conjunctiva normal. NECK: JVD not raised. Mass not palpable. RESPIRATORY: Respiratory effort increased, decreased breath sounds and minimal wheezing. Some crackles CARDIOVASCULAR: First and second sounds normal. No edema. ABDOMEN: Soft. Liver and spleen not palpable. No tenderness. No mass palpable. PSYCHIATRY: lethargic but answering questions Investigations: White count 13.4, hemoglobin 12.2, potassium 4.8, BUN 35, creatinine 0.75 Assessment: -Right lower lobe pneumonia suspected gram-negative organism, but clinically worsening -Acute hypoxic respiratory failure from pneumonia, worsening -Persistent bronchial asthma with worsening -Suspect underlying acute delirium probably from high flow oxygen improving., That she did improve -Diabetes mellitus type 2 chronically on oral hypoglycemic uncontrolled with hyperglycemia -Hyperlipidemia -Essential hypertension -Obesity BMI 35.3 -Hiatal hernia -Peripheral neuropathy idiopathic -GERD -Schizoaffective disorder, bipolar type Plan: Continue current medication treatment plan including steroids. Awaiting a bronchoscopy and lavage that'll be done tomorrow. Discussed with the patient.
[2018-11-15] MEDS: methylPREDNISolone SOD SUCCI 40 MG/ML 1 ML VIAL IV SCH (22:49)
[2018-11-16] MEDS ORDERED: IPRATROPIUM-ALBUTEROL 3 ML NEB ONE ×2
[2018-11-16] MEDS: LACTATED RINGERS 1,000 ML IV SCH (06:02)
[2018-11-16 06:26] LABS: Basophils % (A) 0 %; Eosinophils % (A) 0 %; HCT 38.3 % (34.0-46.0); HGB 12.6 gm/dL (11.4-16.0); Lymphocytes # (A) 0.6 k/uL (1.0-4.8); Lymphocytes % (A) 4 %; MCH 30.1 pg (25.0-35.0); MCHC 32.9 g/dL (31.0-37.0); MCV 91.4 fL (80.0-100.0); Mean Platelet Volume 7.8; Monocytes # (A) 0.3 k/uL (0-1.0); Monocytes % (A) 2 %; Neutrophils # (A) 12.5 k/uL (1.3-7.7); Neutrophils % (A) 93 %; Platelet Count 246 k/uL (150-450); RBC 4.19 m/uL (3.80-5.40); WBC 13.5 k/uL (3.8-10.6)
[2018-11-16 06:30] LABS: Glucose,Whole Blood 176 mg/dL (75-99)
[2018-11-16] MEDS: INSULIN ASPART (NovoLOG) 100 UNIT/ML VIAL SQ SCH ×4 (06:41→20:58)
[2018-11-16 06:53] LABS: Calcium 8.8 mg/dL (8.4-10.2); Potassium 4.7 mmol/L (3.5-5.1)
[2018-11-16] MEDS: FORMOTEROL FUMARATE 20 MCG/2 ML NEBU INHALATION SCH ×2 (07:27→21:04)
[2018-11-16] MEDS: IPRATROPIUM-ALBUTEROL 3 ML NEB INHALATION SCH ×6 (07:27→23:15)
[2018-11-16] MEDS: BUDESONIDE 1 MG/2 ML NEBU INHALATION SCH ×2 (07:27→21:04)
[2018-11-16] MEDS: methylPREDNISolone SOD SUCCI 40 MG/ML 1 ML VIAL IV SCH ×3 (08:58→22:47)
[2018-11-16] MEDS: ISOSORBIDE MONONITRATE ER 60 MG TAB.ER.24H PO SCH (08:59)
[2018-11-16] MEDS: DIGOXIN 125 MCG TAB PO SCH (08:59)
[2018-11-16] MEDS: GABAPENTIN 300 MG CAP PO SCH ×2 (08:59→17:59)
[2018-11-16] MEDS: METOPROLOL TARTRATE 25 MG TAB PO SCH ×2 (08:59→20:58)
[2018-11-16] MEDS: AMOXIC-POT CLAV 875-125MG 1 EACH TAB PO SCH ×2 (09:00→20:58)
[2018-11-16] MEDS ORDERED: PROPOFOL 10 MG/ML 20 ML VIAL IV ONE (11:04)
[2018-11-16] MEDS ORDERED: LACTATED RINGERS 1,000 ML IV ONE (11:04)
[2018-11-16] MEDS ORDERED: LIDOCAINE 1% INJ 10MG/ML (20 ML MDV) ONE (11:04)
[2018-11-16] MEDS ORDERED: MIDAZOLAM 2 MG/2 ML VIAL ONE (11:04)
[2018-11-16] MEDS ORDERED: KETAMINE 10 MG/ML 20 ML VIAL ONE (11:04)
[2018-11-16] MEDS ORDERED: LIDOCAINE 2% INJ 20 MG/ML INTRATRACH ONE (11:12)
--- NOTE | 2018-11-16 11:41 | PCN ---
PROCEDURE NOTE PROCEDURE: Bronchoscopy, airway examination, therapeutic lavage, BAL. PREOPERATIVE DIAGNOSIS: Retained secretions and tracheobronchomalacia. POSTOPERATIVE DIAGNOSIS: Retained secretions, acute bronchitis and tracheobronchomalacia. OPERATORS: Dr. Bunch and Dr. Mendoza. PROCEDURE: There was informed consent and universal timeout. The patient's procedure took place in room #1 endoscopy area. Anesthesia provided general anesthesia and unconscious sedation. After the patient was adequately sedated and being fully monitored, the bronchoscope was inserted through the right nostril. It passed through the right nasopharynx into the oropharynx. The hypopharynx was identified and topicalized. The hypopharyngeal structures including anterior commissure, true cords, false cords, arytenoids, piriform sinuses, right and left vallecula and epiglottis all appeared normal. After topicalization, the bronchoscope was pushed through the glottic opening into the trachea. There was thick purulent yellow secretions noted throughout the trachea. Tracheal hortensia was sharp. The right and left mainstem were topicalized. The right upper lobe and its 3 segments, right middle lobe and its 2 segments, right lower lobe and its 5 segments the left upper lobe and its 2 segments, the lingula and its 2 segments and the left lower lobe and its 4 segments all had similar findings of diffuse airway erythema and hyperemia. There was some mild mucosal friability. There were thick secretions noted throughout. The patient had a significant amount of tracheobronchomalacia noted. The bronchoscope was wedged into the right middle lobe. The BAL took place. Once the fluid was recovered, the bronchoscope was used to cleanse the rest of the airways. A saline was used in assisting the process of removing airway secretions. The patient tolerated the procedure well. There was no immediate complication. The patient's vital signs were stable. The bronchoscope was withdrawn and the patient will be recovered. There was no immediate complication. The fluid will be sent to the laboratory for analysis. MMODL / IJN: [id number] /
[2018-11-16] MEDS: cloZAPine 100 MG TAB PO SCH (12:12)
[2018-11-16] MEDS: guaiFENesin 600 MG TABLET.ER PO SCH ×2 (12:12→20:58)
[2018-11-16] MEDS: CITALOPRAM HYDROBROMIDE 20 MG TAB PO SCH (12:12)
[2018-11-16] MEDS: APIXABAN 5 MG TAB PO SCH ×2 (12:13→20:58)
[2018-11-16] MEDS: OXYBUTYNIN XL 5 MG TAB.ER.24 PO SCH ×2 (12:13→20:58)
[2018-11-16 12:14] LABS: Glucose,Whole Blood 179 mg/dL (75-99)
--- NOTE | 2018-11-16 13:26 | P.PN ---
Subjective Progress Note Date: 11/16/18 Principal diagnosis: Right lower lobe pneumonia 63-year-old female patient was hospitalized for a right lower lobe pneumonia. The patient lives in an AFC home and she is known to have asthma chronic paroxysmal atrial fibrillation maintained on long-term medical condition with E liquis, hypertension and hyperlipidemia. She is also known to have coronary artery disease. 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 Has been expressing increased dyspnea cough venous sputum production of fever and chills. She was admitted to the hospital and she was diagnosed having a right lower lobe pneumonia pH of present with some pleuritic chest pain increased shortness of breath. She was given Rocephin and Zithromax and admitted to the medical floor. Initial lactic acid level was at 2.8. Subsequently overnight lactic acid level gradually went up. Lactic acid level peaked at 11.2 and subsequently dropped down to 3.8. During this time the patient was receiving IV antibiotics and fluids. She continued to be awake and alert and there was no lethargy or altered mentation. No further worsening in respiratory distress. A review the CAT scan of the chest that was on overnight and is clearly shows a right lower lobe pneumonia involving the posterior-superior segment which obviously raises the concern for aspiration. Nevertheless, the patient seems to be swallowing her food fine without any major difficulties. This morning, she is on 9 L of oxygen by nasal cannula with a pulse ox of 93% she is afebrile she is not tachycardic and her heart rate is sinus at the rate of 90. No nausea. No vomi ting. No abdominal pain. He is receiving also IV fluids with normal state rate of 100 mL an hour. Overnight she was given more fluids and lites fluid balance is +2.5 L. The patient is seen today 11/15/2018 in follow-up on the selective care unit. She is currently sitting up in a chair at the bedside. Awake and alert in no acute distress. She is still having ongoing loose nonproductive cough. Still unable to bring up secretions. The plan is to probably repeat her bronchoscopy with BAL tomorrow. She remains on DuoNeb inhalations, Pulmicort and Perforomist inhalations, IV Solu-Medrol, antibiotics in the form of Augmentin. She has been slow to progress. Initial bronchial wash reveals no growth. Some Ingrid only. The patient was seen today 11/16/2018 in follow-up on the selective care unit. She is awake and alert in no acute distress. She continues with a loose nonproductive cough. Cough of tracheobronchomalacia. She is still requiring 10 L high flow nasal cannula to maintain O2 saturations in the 90s. She's been afebrile. Hemodynamically stable. White count 13.5. Hemoglobin 12.6. Creatinine 0.84. The plan is for repeat bronchoscopy with BAL today. She is continued on Augmentin, steroids and bronchodilators. Objective - Vital Signs Vital signs: Vital Signs Temp 98.1 F 11/16/18 12:00 Pulse 66 11/16/18 12:00 Resp 18 11/16/18 12:00 BP 151/78 11/16/18 12:00 Pulse Ox 96 11/16/18 12:00 Intake & Output 11/15/18 11/16/18 11/16/18 18:59 06:59 18:59 Intake Total 480 100 Output Total 1050 500 200 Balance -570 -500 -100 Weight 88.5 kg Intake: IV 100 Oral 480 Output: Urine 1050 500 200 Other: Voiding Method Bedside Commode Bedside Commode Bedside Commode # Voids 1 1 - Exam General: Pleasant 63-year-old female patient in mild respiratory distress, on 10L/min per nasal canula maintaining O2 saturations in the 90s. Derm: no unusual rashes/lesions no unusual ecchymoses, warm, dry Head: Head exam was generally normal. There was no scleral icterus or corneal arcus. Mucous membranes were moist. Eyes: Neck was supple and without jugular venous distension, thyromegaly, or carotid bruits. Carotids were easily palpable bilaterally. There was no adenopathy. Mouth: Mucus membranes moist Cardiovascular: S1 S2 reg, mildly tachycardic, no murmur, positive posterior tibial pulse bilateral, 1+ sukhjinder LE pitting edema, capillary refill less than 2 seconds Lungs: Few scattered rhonchi, diminished Abdominal: soft, nontender to palpation, no guarding, no appreciable organomegaly, normal bowel sounds Ext: no gross muscle atrophy, muscle strength 5 out of 5 in all 4 extremities grossly, no contractures, Neuro: CN II-XI grossly intact, light touch intact all 4 extremities, finger to nose within normal limits, Psych: Alert, oriented, Examination of the skin revealed no evidence of significant rashes, suspicious appearing nevi or other concerning lesions. - Labs CBC & Chem 7: 11/16/18 05:45 11/16/18 05:45 Labs: Abnormal Lab Results - Last 24 Hours (Table) 11/15/18 11/15/18 11/16/18 Range/Units 16:52 21:16 05:45 WBC (3.8-10.6) k/uL Neutrophils # (1.3-7.7) k/uL Lymphocytes # (1.0-4.8) k/uL BUN 31 H (7-17) mg/dL Glucose 179 H (74-99) mg/dL POC Glucose (mg/dL) 212 H 187 H (75-99) mg/dL 11/16/18 11/16/18 11/16/18 Range/Units 05:45 06:12 12:05 WBC 13.5 H (3.8-10.6) k/uL Neutrophils # 12.5 H (1.3-7.7) k/uL Lymphocytes # 0.6 L (1.0-4.8) k/uL BUN (7-17) mg/dL Glucose (74-99) mg/dL POC Glucose (mg/dL) 176 H 179 H (75-99) mg/dL Assessment and Plan Assessment: Impression: 1 right lower lobe pneumonia involving the posterior segment of the right lower lobe. She did undergo bronchoscopy with BAL. Cultures are negative. Pathology negative. Currently on Augmentin. 2 mediastinal lymph node calcification with questionable bronchiolith adjacent to the right lower lobe bronchus, a marker of a previous granulomatous infection of the lung. 3 lactic acidosis, improving 4 acute hypoxic respiratory failure and shortness of breath secondary to above 5 chronic bronchial asthma with some exacerbation secondary to above 6 history paroxysmal atrial fibrillation currently in sinus rhythm 7 history of schizophrenia 8 hypertension 9 diabetes mellitus 10 hyperlipidemia 11 chronic lower extremity edema 12 previous history of left axillary abscess/cellulitis with MSSA post I&D 13 history of shingles 14 macular degeneration 15 history of coronary artery disease with 50% lesion in the LAD 16 peripheral neuropathy 17 chronic anxiety 18 chronic migraines. 19 peripheral neuropathy Plan: The patient was seen and evaluated by Dr. Bunch. She has been slow to progress and back on 10 L high flow nasal cannula. Bronchoscopy with BAL performed again today. Cultures pending. Continue Augmentin, bronchodilators, IV Solu-Medrol. Increase her activity as tolerated. We'll continue to follow and make further recommendations based on her clinical status. I, the cosigning physician, performed a history & physical examination of the patient. Lungs sounds few scattered rhonchi, diminished. Maintaining good O2 saturations in the 90s on 10 L/m per nasal cannula.. I discussed the assessment and plan of care with my nurse practitioner, Fernanda Mendoza. I attest to the above note as dictated by her.
[2018-11-16 14:27] LABS: Appearance,BF Cloudy; Color,BF Red; Nucleated Cells, Body Fluid 400 /uL; RBC, Body Fluid 29100 /uL
[2018-11-16 14:32] LABS: Mononuclear WBC,Body Fluid 7 %; Polynuclear WBC,Body Fluid 93 %; Total Cells Counted,Body Fluid 100
[2018-11-16 17:23] LABS: Glucose,Whole Blood 174 mg/dL (75-99)
--- NOTE | 2018-11-16 20:39 | P.PN ---
Progress Note - Text Progress Note Date: 11/16/18 Presenting complaint: Shortness of breath Interval history: Admitted with pneumonia. Acute hypoxic respiratory failure. Status post bronchoscopy. Patient did respond to bronchoscopy and lavage. Has progressively gotten worse. Today-patient's status post repeat bronchoscopy today. A lot of secretions were suctioned out. Feels a bit better.. Still some raspiness in the chest. Did tolerate some diet. Sitting up in a chair. Review of systems: Was done for constitutional, cardiovascular, GI, pulmonary. relevant finding as above Current medications are reviewed and include: DuoNeb every 4, Eliquis, Omnicef discontinued, started on Augmentin Lasix, Neurontin, put back on IV Solu-Medrol, On examination: VITAL SIGNS: 97.6, 74, 18, 107/55, 93% on 8 L GENERAL APPEARANCE: Sitting up in a chair, awake but tired HEENT: Normal external appearance of nose and ear. Oral cavity normal EYES: Pupils equal. Conjunctiva normal. NECK: JVD not raised. Mass not palpable. RESPIRATORY: Respiratory effort increased, decreased breath sounds and minimal wheezing. Scattered crackles CARDIOVASCULAR: First and second sounds normal. No edema. ABDOMEN: Soft. Liver and spleen not palpable. No tenderness. No mass palpable. PSYCHIATRY: Awake answering questions but tired Investigations: White count 13.5, hemoglobin 12.6, potassium 4.7, BUN 31, creatinine 0.84 Assessment: -Right lower lobe pneumonia suspected gram-negative organism, but clinically worsening -Acute hypoxic respiratory failure from pneumonia, worsening -Persistent bronchial asthma with worsening -Suspect underlying acute delirium probably from high flow oxygen improving., That she did improve -Diabetes mellitus type 2 chronically on oral hypoglycemic uncontrolled with hyperglycemia -Hyperlipidemia -Essential hypertension -Obesity BMI 35.3 -Hiatal hernia -Peripheral neuropathy idiopathic -GERD -Schizoaffective disorder, bipolar type Plan: Patient status post repeat bronchoscopy with lavage today. Continue with steroids. Also Mucinex. We will also add Claritin-D. Follow with pulmonary
[2018-11-16 20:45] LABS: Glucose,Whole Blood 183 mg/dL (75-99)
[2018-11-16] MEDS: ATORVASTATIN 10 MG TAB PO SCH (20:58)
[2018-11-16] MEDS: LORATADINE-PSEUDOEPH 5-120 MG 1 EACH TAB.ER.12H PO SCH (22:47)
[2018-11-17] MEDS: IPRATROPIUM-ALBUTEROL 3 ML NEB INHALATION SCH ×4 (04:20→16:17)
[2018-11-17 06:28] LABS: African American GFR (CKD) >90 (>60 ml/min/1.73 sqM); Anion Gap 5 mmol/L; Blood Urea Nitrogen 35 mg/dL (7-17); Calcium 8.4 mg/dL (8.4-10.2); Carbon Dioxide 25 mmol/L (22-30); Chloride 104 mmol/L (98-107); Glucose 173 mg/dL (74-99); Sodium 134 mmol/L (137-145)
[2018-11-17 06:39] LABS: Glucose,Whole Blood 167 mg/dL (75-99)
[2018-11-17] MEDS: INSULIN ASPART (NovoLOG) 100 UNIT/ML VIAL SQ SCH ×3 (06:58→16:51)
[2018-11-17] MEDS: LACTATED RINGERS 1,000 ML IV SCH ×2 (07:00→08:33)
[2018-11-17] MEDS: FORMOTEROL FUMARATE 20 MCG/2 ML NEBU INHALATION SCH (07:10)
[2018-11-17] MEDS: BUDESONIDE 1 MG/2 ML NEBU INHALATION SCH (07:34)
[2018-11-17] MEDS: methylPREDNISolone SOD SUCCI 40 MG/ML 1 ML VIAL IV SCH ×2 (08:28→15:37)
[2018-11-17] MEDS: METOPROLOL TARTRATE 25 MG TAB PO SCH (08:29)
[2018-11-17] MEDS: DIGOXIN 125 MCG TAB PO SCH (08:29)
[2018-11-17] MEDS: LORATADINE-PSEUDOEPH 5-120 MG 1 EACH TAB.ER.12H PO SCH (08:29)
[2018-11-17] MEDS: ISOSORBIDE MONONITRATE ER 60 MG TAB.ER.24H PO SCH (08:30)
[2018-11-17] MEDS: CITALOPRAM HYDROBROMIDE 20 MG TAB PO SCH (08:30)
[2018-11-17] MEDS: cloZAPine 100 MG TAB PO SCH (08:31)
[2018-11-17] MEDS: AMOXIC-POT CLAV 875-125MG 1 EACH TAB PO SCH (08:31)
[2018-11-17] MEDS: guaiFENesin 600 MG TABLET.ER PO SCH (08:31)
[2018-11-17] MEDS: GABAPENTIN 300 MG CAP PO SCH ×2 (08:32→16:51)
[2018-11-17] MEDS: APIXABAN 5 MG TAB PO SCH (08:32)
[2018-11-17] MEDS: OXYBUTYNIN XL 5 MG TAB.ER.24 PO SCH (08:32)
[2018-11-17 11:35] LABS: Glucose,Whole Blood 141 mg/dL (75-99)
[2018-11-17 14:20] VITALS: PULSE 65; RESP 18
[2018-11-17 14:21] VITALS: BP 109/58; TEMP 97.8
[2018-11-17 14:49] VITALS: BMI 33.5
--- NOTE | 2018-11-17 16:23 | P.PN ---
Subjective Progress Note Date: 11/17/18 Principal diagnosis: Right lower lobe pneumonia 63-year-old female patient was hospitalized for a right lower lobe pneumonia. The patient lives in an AFC home and she is known to have asthma chronic paroxysmal atrial fibrillation maintained on long-term medical condition with E liquis, hypertension and hyperlipidemia. She is also known to have coronary artery disease. 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 Has been expressing increased dyspnea cough venous sputum production of fever and chills. She was admitted to the hospital and she was diagnosed having a right lower lobe pneumonia pH of present with some pleuritic chest pain increased shortness of breath. She was given Rocephin and Zithromax and admitted to the medical floor. Initial lactic acid level was at 2.8. Subsequently overnight lactic acid level gradually went up. Lactic acid level peaked at 11.2 and subsequently dropped down to 3.8. During this time the patient was receiving IV antibiotics and fluids. She continued to be awake and alert and there was no lethargy or altered mentation. No further worsening in respiratory distress. A review the CAT scan of the chest that was on overnight and is clearly shows a right lower lobe pneumonia involving the posterior-superior segment which obviously raises the concern for aspiration. Nevertheless, the patient seems to be swallowing her food fine without any major difficulties. This morning, she is on 9 L of oxygen by nasal cannula with a pulse ox of 93% she is afebrile she is not tachycardic and her heart rate is sinus at the rate of 90. No nausea. No vomi ting. No abdominal pain. He is receiving also IV fluids with normal state rate of 100 mL an hour. Overnight she was given more fluids and lites fluid balance is +2.5 L. The patient is seen today 11/15/2018 in follow-up on the selective care unit. She is currently sitting up in a chair at the bedside. Awake and alert in no acute distress. She is still having ongoing loose nonproductive cough. Still unable to bring up secretions. The plan is to probably repeat her bronchoscopy with BAL tomorrow. She remains on DuoNeb inhalations, Pulmicort and Perforomist inhalations, IV Solu-Medrol, antibiotics in the form of Augmentin. She has been slow to progress. Initial bronchial wash reveals no growth. Some Ingrid only. The patient was seen today 11/16/2018 in follow-up on the selective care unit. She is awake and alert in no acute distress. She continues with a loose nonproductive cough. Cough of tracheobronchomalacia. She is still requiring 10 L high flow nasal cannula to maintain O2 saturations in the 90s. She's been afebrile. Hemodynamically stable. White count 13.5. Hemoglobin 12.6. Creatinine 0.84. The plan is for repeat bronchoscopy with BAL today. She is continued on Augmentin, steroids and bronchodilators. On 11/17/2018 patient seen in follow-up in selective care unit. She is awake and alert, no acute distress, she is currently on 7 L of oxygen, with a pulse ox of 94%, she is and bleeding about the room, she is breathing easier, less congested, afebrile, hemodynamically stable. Underwent repeat bronchoscopy with BAL yesterday, with removal of pulmonary secretions, cultures are still pending at this time, preliminary Gram stain showed many polymorphonuclear leukocytes, rare epithelial cells, and rare budding yeast, final cultures in progress, no fever or chills. Labs have been reviewed, CBC, BMP was done only, showing serum sodium 134, potassium is 5.0, chloride is 104, CO2 is 25, B1 is 35, creatinine 0.67. Patient is on oral Augmentin at this time, Pulmicort and Perforomist, Venessa, improving, patient can be considered for discharge home today. Objective - Vital Signs Vital signs: Vital Signs Temp 97.8 F 11/17/18 12:00 Pulse 65 11/17/18 12:00 Resp 18 11/17/18 12:00 BP 109/58 11/17/18 12:00 Pulse Ox 94 L 11/17/18 12:00 Intake & Output 11/16/18 11/17/18 11/17/18 18:59 06:59 18:59 Intake Total 442 240 Output Total 1000 750 500 Balance -558 -750 -260 Weight 85.7 kg 85.7 kg Intake: IV 100 Oral 342 240 Output: Urine 1000 750 500 Other: Voiding Method Bedside Commode Bedside Commode Bedside Commode # Voids 1 1 0 # Bowel Movements 1 - Exam GENERAL EXAM: Alert, doesn't, 63-year-old white female, 7 L of oxygen, with a pulse ox of 94%, comfortable in no apparent distress. HEAD: Normocephalic/atraumatic. EYES: Normal reaction of pupils, equal size. Conjunctiva pink, sclera white. NOSE: Clear with pink turbinates. THROAT: No erythema or exudates. NECK: No masses, no JVD, no thyroid enlargement, no adenopathy. CHEST: No chest wall deformity. Symmetrical expansion. LUNGS: Equal air entry with scattered rhonchi, good air entry noted bilaterally, no wheezing CVS: Regular rate and rhythm, normal S1 and S2, no gallops, no murmurs, no rubs ABDOMEN: Soft, nontender. No hepatosplenomegaly, normal bowel sounds, no guarding or rigidity. EXTREMITIES: No clubbing, no edema, no cyanosis, 2+ pulses and upper and lower extremities. MUSCULOSKELETAL: Muscle strength and tone normal. SPINE: No scoliosis or deformity SKIN: No rashes CENTRAL NERVOUS SYSTEM: Alert and oriented -3. No focal deficits, tone is normal in all 4 extremities. PSYCHIATRIC: Alert and oriented -3. Appropriate affect. Intact judgment and insight. - Labs CBC & Chem 7: 11/16/18 05:45 11/17/18 05:38 Labs: Abnormal Lab Results - Last 24 Hours (Table) 11/16/18 11/16/18 11/17/18 Range/Units 17:21 20:44 05:38 Sodium 134 L (137-145) mmol/L BUN 35 H (7-17) mg/dL Glucose 173 H (74-99) mg/dL POC Glucose (mg/dL) 174 H 183 H (75-99) mg/dL 11/17/18 11/17/18 Range/Units 06:36 11:32 Sodium (137-145) mmol/L BUN (7-17) mg/dL Glucose (74-99) mg/dL POC Glucose (mg/dL) 167 H 141 H (75-99) mg/dL Microbiology - Last 24 Hours (Table) 11/16/18 11:00 Gram Stain - Preliminary Bronchoalviolar Lavage - Right Bronchial Washings Culture - Preliminary 11/16/18 11:00 Acid Fast Bacilli Smear - Final Bronchoalviolar Lavage - Right Acid Fast Bacilli Culture - Preliminary 11/16/18 11:00 Fungal Culture - Preliminary Bronchoalviolar Lavage - Right Assessment and Plan Plan: Assessment: 1 right lower lobe pneumonia involving the posterior segment of the right lower lobe. She did undergo bronchoscopy with BAL. Cultures are negative. Pathology negative. Currently on Augmentin. 2 mediastinal lymph node calcification with questionable bronchiolith adjacent to the right lower lobe bronchus, a marker of a previous granulomatous infection of the lung. 3 lactic acidosis, improving 4 acute hypoxic respiratory failure and shortness of breath secondary to above 5 chronic bronchial asthma with some exacerbation secondary to above 6 history paroxysmal atrial fibrillation currently in sinus rhythm 7 history of schizophrenia 8 hypertension 9 diabetes mellitus 10 hyperlipidemia 11 chronic lower extremity edema 12 previous history of left axillary abscess/cellulitis with MSSA post I&D 13 history of shingles 14 macular degeneration 15 history of coronary artery disease with 50% lesion in the LAD 16 peripheral neuropathy 17 chronic anxiety 18 chronic migraines. 19 peripheral neuropathy Plan: We'll continue current antibiotic coverage, patient from pulmonary perspective is stable, improving, underwent repeat bronchoscopy with BAL yesterday, bronchial wash cultures are pending, no fever or chills, continue bronchodilators, Solu-Medrol, weaning FiO2, increase activity as tolerated, she can consider for discharge home from pulmonary perspective, she will need outpatient follow-up in the office with Dr. Rdz in 7-10 days I performed a history & physical examination of the patient and discussed their management with my nurse practitioner, Maryann Bradford. I reviewed the nurse practitioner's note and agree with the documented findings and plan of care. Lung sounds are positive for a few scattered rhonchi,. The findings and the impression was discussed with the patient. I attest to the documentation by the nurse practitioner. Time with Patient: Less than 30
--- NOTE | 2018-11-18 22:08 | P.DS ---
Providers Date of admission: 11/05/18 05:28 Expected date of discharge: 11/17/18 Attending physician: Marvin Elizabeth Consults: 11/05/18 21:55 Consult Physician Urgent Consulting Provider: Srinivasa Snider Consult Reason/Comments: COPD, Pneumonia Do you want consulting provider notified?: Yes 11/10/18 12:01 Consult Physician Routine Consulting Provider: Marion Trejo Consult Reason/Comments: AMS, hallucinations Do you want consulting provider notified?: Yes 11/14/18 07:00 Consult Physician Routine Consulting Provider: Brown Jade Consult Reason/Comments: chest pain Do you want consulting provider notified?: Yes, Notify in am Primary care physician: Loki Gomes Hospital Course: Discharge diagnosis: -Right lower lobe pneumonia suspected gram-negative organism, but clinically worsening -Acute hypoxic respiratory failure from pneumonia, worsening -Persistent bronchial asthma with worsening -Suspect underlying acute delirium probably from high flow oxygen improving., That she did improve -Diabetes mellitus type 2 chronically on oral hypoglycemic uncontrolled with hyperglycemia -Hyperlipidemia -Essential hypertension -Obesity BMI 35.3 -Hiatal hernia -Peripheral neuropathy idiopathic -GERD -Schizoaffective disorder, bipolar type Hospital course: Admitted with pneumonia. Acute hypoxic respiratory failure. Status post bronchoscopy. Patient did respond to bronchoscopy and lavage. Has progressively gotten worse. Patient had to repeat bronchoscopy and lavage as she again failed of secretions. By the time of discharging much better. Oxygen requirement greatly calmed down. Following a diet. Discussion discharge planning more than 35 minutes Consultation: Dr. Ozuna/Dr. Bunch from pulmonary On examination: VITAL SIGNS: 97.8, 65, 18, 100 oxygen requirement did come down to 4 L GENERAL APPEARANCE: Sitting up in a chair, awake HEENT: Normal external appearance of nose and ear. Oral cavity normal EYES: Pupils equal. Conjunctiva normal. NECK: JVD not raised. Mass not palpable. RESPIRATORY: Respiratory effort increased, decreased breath sounds and minimal wheezing. Minimum crackles CARDIOVASCULAR: First and second sounds normal. No edema. ABDOMEN: Soft. Liver and spleen not palpable. No tenderness. No mass palpable. PSYCHIATRY: Awake answering questions but tired Investigations: Potassium 5 creatinine 0.67 Bronchial washings have shown Ingrid albicans Patient Condition at Discharge: Stable Plan - Discharge Summary New Discharge Prescriptions: New Amoxic-Pot Clav 875-125Mg [Augmentin 875-125] 1 each PO Q12HR #10 tab Loratadine [Claritin] 5 mg PO BID #20 tab predniSONE 10 mg PO DAILY #30 tab Continue Gabapentin [Neurontin] 300 mg PO BID@0900,1700 Vit C/E/Zn/Coppr/Lutein/Zeaxan [Preservision Areds 2 Softgel] 1 cap PO DAILY Atorvastatin [Lipitor] 10 mg PO HS Omeprazole 20 mg PO DAILY PRN PRN Reason: Heartburn Apixaban [Eliquis] 5 mg PO BID tab Digoxin [Lanoxin] 125 mcg PO DAILY tab Metoprolol Tartrate [Lopressor] 25 mg PO BID Oxybutynin Xl [Ditropan XL] 5 mg PO BID Isosorbide Mononitrate ER [Imdur] 60 mg PO DAILY tab cloZAPine [Clozaril] 150 mg PO DAILY metFORMIN HCL [Glucophage] 500 mg PO DAILY Citalopram Hydrobromide [CeleXA] 40 mg PO DAILY Discontinued Furosemide [Lasix] 20 mg PO DAILY Discharge Medication List Gabapentin [Neurontin] 300 mg PO BID@0900,1700 07/21/16 [History] Atorvastatin [Lipitor] 10 mg PO HS 12/30/16 [History] Omeprazole 20 mg PO DAILY PRN 12/30/16 [History] Vit C/E/Zn/Coppr/Lutein/Zeaxan [Preservision Areds 2 Softgel] 1 cap PO DAILY 12/30/16 [History] Apixaban [Eliquis] 5 mg PO BID tab 01/15/17 [Rx] Digoxin [Lanoxin] 125 mcg PO DAILY tab 01/15/17 [Rx] Metoprolol Tartrate [Lopressor] 25 mg PO BID 02/25/17 [History] Oxybutynin Xl [Ditropan XL] 5 mg PO BID 02/25/17 [History] Isosorbide Mononitrate ER [Imdur] 60 mg PO DAILY tab 03/01/17 [Rx] Citalopram Hydrobromide [CeleXA] 40 mg PO DAILY 11/05/18 [History] cloZAPine [Clozaril] 150 mg PO DAILY 11/05/18 [History] metFORMIN HCL [Glucophage] 500 mg PO DAILY 11/05/18 [History] Amoxic-Pot Clav 875-125Mg [Augmentin 875-125] 1 each PO Q12HR #10 tab 11/17/18 [Rx] Loratadine [Claritin] 5 mg PO BID #20 tab 11/17/18 [Rx] predniSONE 10 mg PO DAILY #30 tab 11/17/18 [Rx] Follow up Appointment(s)/Referral(s): [facility] [NON-STAFF] - Fernanda Mendoza NPC [Nurse Practitioner] - 11/30/18 3:45 pm (Wednesday) Loki Gomes MD [Primary Care Provider] - 1-2 days ([facility] will arrange post hospital follow up. RN called and notified them of pending DC.) Patient Instructions/Handouts: Pneumonia (DC), Flexible Bronchoscopy (DC) Activity/Diet/Wound Care/Special Instructions: Rex Valerio to provide discharge transportation, They were contacted, will arrive around 17:00 [facility] [phone] Call [phone] before pt leaves hospital to have O2 concentrator delivered Discharge Disposition: TRANSFER TO SNF/ECF
== END 2018-11-17 18:11 | DRG 853 ==
LOC: EC 01:21 → 3NMEDONC 05:28 → 3SCARD 23:12
PROVIDERS: ADMIT Hospitalist; ATTEND Hospitalist
PROC: 0B9C8ZZ Drainage of Right Upper Lung Lobe, Via Natural or Artificial Opening Endoscopic (ICD-10-PCS; 2018-11-09)
PROC: 0B9G8ZZ Drainage of Left Upper Lung Lobe, Via Natural or Artificial Opening Endoscopic (ICD-10-PCS; 2018-11-09)
PROC: 0B9D8ZZ Drainage of Right Middle Lung Lobe, Via Natural or Artificial Opening Endoscopic (ICD-10-PCS; 2018-11-09)
PROC: 0B9J8ZX Drainage of Left Lower Lung Lobe, Via Natural or Artificial Opening Endoscopic, Diagnostic (ICD-10-PCS; 2018-11-09)
PROC: 0B9D8ZX Drainage of Right Middle Lung Lobe, Via Natural or Artificial Opening Endoscopic, Diagnostic (ICD-10-PCS; 2018-11-09)
PROC: 0B9F8ZX Drainage of Right Lower Lung Lobe, Via Natural or Artificial Opening Endoscopic, Diagnostic (ICD-10-PCS; 2018-11-09)
PROC: 0B9H8ZZ Drainage of Lung Lingula, Via Natural or Artificial Opening Endoscopic (ICD-10-PCS; principal; 2018-11-09 12:25)
PROC: 0B9M8ZZ Drainage of Bilateral Lungs, Via Natural or Artificial Opening Endoscopic (ICD-10-PCS; 2018-11-16)
PROC: 0B9D8ZX Drainage of Right Middle Lung Lobe, Via Natural or Artificial Opening Endoscopic, Diagnostic (ICD-10-PCS; 2018-11-16)
DX: A41.9 Sepsis, unspecified organism (principal); J18.1 Lobar pneumonia, unspecified organism; J96.01 Acute respiratory failure with hypoxia; E87.2 Acidosis; J44.0 Chronic obstructive pulmonary disease with (acute) lower respiratory infection; J44.1 Chronic obstructive pulmonary disease with (acute) exacerbation; J45.901 Unspecified asthma with (acute) exacerbation; R45.851 Suicidal ideations; E87.4 Mixed disorder of acid-base balance; F25.0 Schizoaffective disorder, bipolar type; K21.9 Gastro-esophageal reflux disease without esophagitis; I25.10 Atherosclerotic heart disease of native coronary artery without angina pectoris; I10 Essential (primary) hypertension; Z66 Do not resuscitate; Z91.5 Personal history of self-harm; E11.65 Type 2 diabetes mellitus with hyperglycemia; E78.5 Hyperlipidemia, unspecified; I48.2 Chronic atrial fibrillation; I11.0 Hypertensive heart disease with heart failure; I50.9 Heart failure, unspecified; J20.9 Acute bronchitis, unspecified; J98.09 Other diseases of bronchus, not elsewhere classified; R07.89 Other chest pain; H35.30 Unspecified macular degeneration; R45.850 Homicidal ideations; R65.20 Severe sepsis without septic shock; E66.9 Obesity, unspecified; Z68.35 Body mass index [BMI] 35.0-35.9, adult; G43.909 Migraine, unspecified, not intractable, without status migrainosus; G62.9 Polyneuropathy, unspecified; K44.9 Diaphragmatic hernia without obstruction or gangrene; F41.9 Anxiety disorder, unspecified; G24.9 Dystonia, unspecified; Z79.01 Long term (current) use of anticoagulants; Z79.84 Long term (current) use of oral hypoglycemic drugs; Z79.899 Other long term (current) drug therapy; Z85.42 Personal history of malignant neoplasm of other parts of uterus; Z86.19 Personal history of other infectious and parasitic diseases; Z86.73 Personal history of transient ischemic attack (TIA), and cerebral infarction without residual deficits; Z90.710 Acquired absence of both cervix and uterus; Z80.0 Family history of malignant neoplasm of digestive organs; Z80.8 Family history of malignant neoplasm of other organs or systems; Z82.49 Family history of ischemic heart disease and other diseases of the circulatory system
CPT/HCPCS: 31624; 36415; 36600; 71045; 71046; 71260; 71275; 80048; 80053; 81003; 82805; 83036; 83605; 83735; 83880; 84484; 85025; 85027; 85610; 85730; 87040; 87070; 87102; 87116; 87205; 87206; 87252; 87496; 87498; 87502; 87529; 87634; 87798; 88108; 88305; 89050; 93306; 94640; 94660; 94667; 94668; 94760; 96361; 96374; 96375; 99285

== ENCOUNTER 2019-05-18 19:52 | Observation (INO) | payer MEDICARE, OTHER ==
--- NOTE | 2019-05-18 20:02 | ED ---
Chest Pain HPI - General Stated Complaint: Chest Pain Time Seen by Provider: 05/18/19 19:55 Source: RN notes reviewed, old records reviewed Limitations: no limitations - History of Present Illness Initial Comments: This is a 63-year-old female here for evaluation she reports history of coronary artery disease but no prior stenting. Patient is presenting with chest pain of the chest pain and heaviness left-sided jaw pain with shortness of breath. Patient is no travel history no significant fevers. Gail persistent for a few hours today having this left-sided chest no arm radiation, no jaw radiation. MD Complaint: chest pain -: hour(s) Onset: during rest Pain Location: substernal, left chest Pain Radiation: none Severity: mild Severity scale (1-10): 3 Quality: heaviness Consistency: constant Improves With: nothing Worsens With: nothing Anginal Symptoms: dyspnea Other Symptoms: palpitations Treatments Prior to Arrival: none - Related Data Home Medications Medication Instructions Recorded Confirmed Gabapentin [Neurontin] 300 mg PO BID@0900,1700 07/21/16 11/05/18 Atorvastatin [Lipitor] 10 mg PO HS 12/30/16 11/05/18 Omeprazole 20 mg PO DAILY PRN 12/30/16 11/05/18 Vit C/E/Zn/Coppr/Lutein/Zeaxan 1 cap PO DAILY 12/30/16 11/05/18 [Preservision Areds 2 Softgel] Metoprolol Tartrate [Lopressor] 25 mg PO BID 02/25/17 11/05/18 Oxybutynin Xl [Ditropan XL] 5 mg PO BID 02/25/17 11/05/18 Citalopram Hydrobromide [CeleXA] 40 mg PO DAILY 11/05/18 11/05/18 cloZAPine [Clozaril] 150 mg PO DAILY 11/05/18 11/05/18 metFORMIN HCL [Glucophage] 500 mg PO DAILY 11/05/18 11/05/18 Previous Rx's Medication Instructions Recorded Apixaban [Eliquis] 5 mg PO BID tab 01/15/17 Digoxin [Lanoxin] 125 mcg PO DAILY tab 01/15/17 Isosorbide Mononitrate ER [Imdur] 60 mg PO DAILY tab 03/01/17 Amoxic-Pot Clav 875-125Mg 1 each PO Q12HR #10 tab 11/17/18 [Augmentin 296-125] Loratadine [Claritin] 5 mg PO BID #20 tab 11/17/18 predniSONE 10 mg PO DAILY #30 tab 11/17/18 Fluconazole [Diflucan] 100 mg PO DAILY #7 tab 11/18/18 Allergies Allergy/AdvReac Type Severity Reaction Status Date / Time bee venom protein (honey bee) Allergy Anaphylaxis Verified 05/18/19 20:31 lorazepam [From Ativan] Allergy Unknown Verified 05/18/19 20:31 Review of Systems ROS Statement: Those systems with pertinent positive or pertinent negative responses have been documented in the HPI. ROS Other: All systems not noted in ROS Statement are negative. EKG Findings - EKG Comments: EKG Findings:: EKG shows rhythm rate of 76, GA 150, QRS 72, QTc 463 Past Medical History Past Medical History: COPD, Diabetes Mellitus, Hyperlipidemia, Hypertension Additional Past Medical History / Comment(s): Bronchial asthma, obesity, chronic lower extremity edema, L axillae cellulitis/abscess-cultures grew peptostreptococcus and MSSA-had I&D . Other hx: shingles/staph, R eye macular degeneration, TIA, hiatal hernia, uterine cancer with hysterectomy, tardive dyskinesia, peripheral neuropathy cause unknown, migraines, sinus problems has coronary artery disease with 50% lesion of the LAD, paroxysmal atrial fibrillation, hypertension, acid reflux, schizophrenic disorder, anxiety, peripheral neuropathy, wound vac, PICC line (removed), retention w/ chronic Bell. History of Any Multi-Drug Resistant Organisms: None Reported Past Surgical History: Adenoidectomy, Back Surgery, Cholecystectomy, Ear Surgery, Heart Catheterization, Hysterectomy, Tonsillectomy Additional Past Surgical History / Comment(s): I & D L axillae, L eye surgery for lazy eye, bilateral cataract removal, bilateral myringotomy/tubes, colonoscopy, cardiac cath on 07/24/2016 with moderate stenosis of LAD noted - no stenting at that time recommend medical management and return for angioplasty if sx persist Past Anesthesia/Blood Transfusion Reactions: No Reported Reaction Past Psychological History: Anxiety, Depression, Schizoaffective Disorder Additional Psychological History / Comment(s): Is normally a resident of a senior care. [facility] Smoking Status: Never smoker Past Alcohol Use History: None Reported Additional Past Alcohol Use History / Comment(s): Pt states she used to drink occasionally but has not had any alcohol since 2006. Denies alcoholism. Past Drug Use History: None Reported - Past Family History Mother Family Medical History: Myocardial Infarction (HI) Additional Family Medical History / Comment(s): Mother at 72 yrs. Father Family Medical History: Cancer Additional Family Medical History / Comment(s): Throat cancer; father at 72 yrs. Brother(s) Family Medical History: Cancer Additional Family Medical History / Comment(s): Liver cancer General Exam General appearance: alert, in no apparent distress Head exam: Present: atraumatic, normocephalic, normal inspection Eye exam: Present: normal appearance, PERRL, EOMI. Absent: scleral icterus, conjunctival injection, periorbital swelling ENT exam: Present: normal exam, mucous membranes moist Neck exam: Present: normal inspection. Absent: tenderness, meningismus, lymphadenopathy Respiratory exam: Present: normal lung sounds bilaterally. Absent: respiratory distress, wheezes, rales, rhonchi, stridor Cardiovascular Exam: Present: regular rate, normal rhythm, normal heart sounds. Absent: systolic murmur, diastolic murmur, rubs, gallop, clicks GI/Abdominal exam: Present: soft, normal bowel sounds. Absent: distended, tenderness, guarding, rebound, rigid Extremities exam: Present: normal inspection, full ROM, normal capillary refill. Absent: tenderness, pedal edema, joint swelling, calf tenderness Back exam: Present: normal inspection Neurological exam: Present: alert, oriented X3, CN II-XII intact Psychiatric exam: Present: normal affect, normal mood Skin exam: Present: warm, dry, intact, normal color. Absent: rash Course Vital Signs 05/18/19 05/18/19 20:27 22:13 Temperature 97.7 F Pulse Rate 78 78 Respiratory 16 18 Rate Blood Pressure 137/69 133/78 O2 Sat by Pulse 93 L 98 Oximetry - Reevaluation(s) Reevaluation #1: 05/18/19 22:25 Medical record. Revisits as well as inpatient admission for chest pain and cardiac observation of the review Reevaluation #2: 05/18/19 22:25 Patient saw persistent chest pain in the ear - Consultations Consultation #1: spoke w DR alvaro wilson for admission under obs Chest Pain MDM - MDM 63 female to the ED for evaluation patient is a for evaluation or chest pain history of CAD, will admit for cardiac observation Critical Care Time Critical Care Time: Yes Total Critical Care Time: 31 Disposition Clinical Impression: CAD (coronary artery disease), Chest pain Disposition: ADMITTED IP TO THIS HOSP Condition: Undetermined Is patient prescribed a controlled substance at d/c from ED?: No Referrals: Loki Gomes MD [Primary Care Provider] - 1-2 days
[2019-05-18 20:43] LABS: Basophils % (A) 1 %; Eosinophils # (A) 0.3 k/uL (0-0.7); Eosinophils % (A) 5 %; HCT 35.6 % (34.0-46.0); HGB 11.7 gm/dL (11.4-16.0); Lymphocytes # (A) 2.5 k/uL (1.0-4.8); Lymphocytes % (A) 40 %; MCH 29.6 pg (25.0-35.0); MCV 89.8 fL (80.0-100.0); Mean Platelet Volume 7.5; Monocytes # (A) 0.4 k/uL (0-1.0); Monocytes % (A) 6 %; Neutrophils # (A) 2.9 k/uL (1.3-7.7); Neutrophils % (A) 46 %; Platelet Count 230 k/uL (150-450); RBC 3.96 m/uL (3.80-5.40); RDW 12.4 % (11.5-15.5); WBC 6.2 k/uL (3.8-10.6)
--- NOTE | 2019-05-18 20:47 | XR ---
EXAMINATION TYPE: XR chest 2V DATE OF EXAM: 05/18/2019 COMPARISON: 11/14/2018 HISTORY: Pneumonia TECHNIQUE: FINDINGS: There is no heart failure nor confluent pneumonic infiltrate. Costophrenic angles are clear . There are chest leads. There is cervical spine fusion surgery. Bony thorax is intact. IMPRESSION: No active cardiopulmonary disease. There is clearing of the infiltrate at the left lung b ase compared to old exam.
[2019-05-18 20:53] LABS: INR 0.9 (<1.2); Partial Thromboplastin Time 24.5 sec (22.0-30.0); Prothrombin Time 9.7 sec (9.0-12.0)
[2019-05-18 20:54] LABS: ALT 23 U/L (4-34); AST 34 U/L (14-36); African American GFR (CKD) >90 (>60 ml/min/1.73 sqM); Albumin 3.5 g/dL (3.5-5.0); Alkaline Phosphatase 103 U/L (38-126); Anion Gap 3 mmol/L; Blood Urea Nitrogen 23 mg/dL (7-17); Calcium 8.8 mg/dL (8.4-10.2); Carbon Dioxide 29 mmol/L (22-30); Chloride 106 mmol/L (98-107); Glucose 95 mg/dL (74-99); Magnesium 1.9 mg/dL (1.6-2.3); Non-African American GFR(CKD) 81 (>60 ml/min/1.73 sqM); Sodium 138 mmol/L (137-145); Total Bilirubin 0.4 mg/dL (0.2-1.3); Total Protein 5.9 g/dL (6.3-8.2)
[2019-05-18] MEDS ORDERED: HEPARIN SODIUM,PORCINE 5,000 UNIT/ML 1 ML VIAL IV ONE (21:28)
[2019-05-18] MEDS ORDERED: ASPIRIN 81 MG PO STA (21:28)
[2019-05-18] MEDS ORDERED: NITROGLYCERIN SL TABS 0.4 MG TAB SUBLINGUAL PRN (21:28)
[2019-05-18] MEDS ORDERED: HEPARIN SODIUM,PORCINE 5,000 UNIT/ML 1 ML VIAL IV PRN (21:28)
[2019-05-18] MEDS: SODIUM CHLORIDE 0.9% 1,000 ML IV SCH (22:18)
[2019-05-18] MEDS: HEPARIN SOD,PORK IN 0.45% NACL 25,000 UNIT in 0.45% NACL 1 250ML.BAG IV SCH (22:25)
--- NOTE | 2019-05-19 03:09 | P.HPIM ---
History of Present Illness H&P Date: 05/19/19 The patient is a 63 yo F with a PMH of paroxysmal Afib (on Eliquis), asthma, schizoaffective disorder, HTN, Type 2 DM, and GERD who presented to the ED with complaints of substernal chest discomfort with started earlier today at around 2 pm. She notes that she has never had pain like this before. The pain radiates to her right arm and is associated with some shrotness of breath. It is sharp in nature, occurs intermittently, lasting a few minutes at a time, with some worsening with deep breathing. She denied associated dizziness, palpitations, nausea, or diaphoresis. She also reports feelings of depression and having thoughts of hurting herself which she attributes to the birthdays of many of her family members that had recently . She reports having thoughts of possibly hurting herself but denied having a particular plan. She denied cough, fever, chills, nausea, vomiting, or leg pain. She underwent an extensive evaluation in the ED w/ EKG showing NSR @ 76 bpm with T-wave flattening in V1- V6, and TWI in lead III. CXR was unremarkable. Laboratory evaluation revealed WBC count 6.2, Hgb 11.7, Na 138, K 4, CO2 23, Cr 0.79, Troponin < 0.012, BNP 193. She is admitted to the medicine service for further management. Review of Systems Pertinent positives and negatives as discussed in HPI, a complete review of systems was performed and all other systems are negative. Past Medical History Past Medical History: COPD, Diabetes Mellitus, Hyperlipidemia, Hypertension Additional Past Medical History / Comment(s): Bronchial asthma, obesity, chronic lower extremity edema, L axillae cellulitis/abscess-cultures grew peptostreptococcus and MSSA-had I&D . Other hx: shingles/staph, R eye macular degeneration, TIA, hiatal hernia, uterine cancer with hysterectomy, tardive dyskinesia, peripheral neuropathy cause unknown, migraines, sinus problems has coronary artery disease with 50% lesion of the LAD, paroxysmal atrial fibrillation, hypertension, acid reflux, schizophrenic disorder, anxiety, peripheral neuropathy, wound vac, PICC line (removed), retention w/ chronic Bell. History of Any Multi-Drug Resistant Organisms: None Reported Past Surgical History: Adenoidectomy, Back Surgery, Cholecystectomy, Ear Surgery, Heart Catheterization, Hysterectomy, Tonsillectomy Additional Past Surgical History / Comment(s): I & D L axillae, L eye surgery for lazy eye, bilateral cataract removal, bilateral myringotomy/tubes, colonoscopy, cardiac cath on 07/24/2016 with moderate stenosis of LAD noted - no stenting at that time recommend medical management and return for angioplasty if sx persist Past Anesthesia/Blood Transfusion Reactions: No Reported Reaction Past Psychological History: Anxiety, Depression, Schizoaffective Disorder Additional Psychological History / Comment(s): Is normally a resident of a long term. [facility] Smoking Status: Never smoker Past Alcohol Use History: None Reported Additional Past Alcohol Use History / Comment(s): Pt states she used to drink occasionally but has not had any alcohol since 2006. Denies alcoholism. Past Drug Use History: None Reported - Past Family History Mother Family Medical History: Myocardial Infarction (MD) Additional Family Medical History / Comment(s): Mother at 72 yrs. Father Family Medical History: Cancer Additional Family Medical History / Comment(s): Throat cancer; father at 72 yrs. Brother(s) Family Medical History: Cancer Additional Family Medical History / Comment(s): Liver cancer Medications and Allergies Home Medications Medication Instructions Recorded Confirmed Type Gabapentin [Neurontin] 300 mg PO BID@0900,1700 07/21/16 11/05/18 History Atorvastatin [Lipitor] 10 mg PO HS 12/30/16 11/05/18 History Omeprazole 20 mg PO DAILY PRN 12/30/16 11/05/18 History Vit C/E/Zn/Coppr/Lutein/Zeaxan 1 cap PO DAILY 12/30/16 11/05/18 History [Preservision Areds 2 Softgel] Apixaban [Eliquis] 5 mg PO BID tab 01/15/17 11/05/18 Rx Digoxin [Lanoxin] 125 mcg PO DAILY tab 01/15/17 11/05/18 Rx Metoprolol Tartrate [Lopressor] 25 mg PO BID 02/25/17 11/05/18 History Oxybutynin Xl [Ditropan XL] 5 mg PO BID 02/25/17 11/05/18 History Isosorbide Mononitrate ER [Imdur] 60 mg PO DAILY tab 03/01/17 11/05/18 Rx Citalopram Hydrobromide [CeleXA] 40 mg PO DAILY 11/05/18 11/05/18 History cloZAPine [Clozaril] 150 mg PO DAILY 11/05/18 11/05/18 History metFORMIN HCL [Glucophage] 500 mg PO DAILY 11/05/18 11/05/18 History Amoxic-Pot Clav 875-125Mg 1 each PO Q12HR #10 tab 11/17/18 Rx [Augmentin 875-125] Loratadine [Claritin] 5 mg PO BID #20 tab 11/17/18 Rx predniSONE 10 mg PO DAILY #30 tab 11/17/18 Rx Fluconazole [Diflucan] 100 mg PO DAILY #7 tab 11/18/18 Rx Allergies Allergy/AdvReac Type Severity Reaction Status Date / Time bee venom protein (honey bee) Allergy Anaphylaxis Verified 05/18/19 22:29 lorazepam [From Ativan] Allergy Unknown Verified 05/18/19 22:29 acetaminophen [From Sanders] AdvReac Confusion Verified 05/18/19 22:29 hydrocodone [From Sanders] AdvReac Confusion Verified 05/18/19 22:29 Physical Exam Vitals: Vital Signs Temp Pulse Pulse Resp BP BP Pulse Ox 05/18/19 22:40 98.1 F 71 18 139/83 100 05/18/19 22:13 78 18 133/78 98 05/18/19 20:27 97.7 F 78 16 137/69 93 L Intake and Output 05/18/19 05/18/19 05/19/19 14:59 22:59 06:59 Other: Weight 82.1 kg General: non toxic, no distress, appears older than stated age, obese Derm: no unusual rashes/lesions no unusual ecchymoses, warm, dry Head: atraumatic, normocephalic, symmetric Eyes: EOMI, no lid lag, anicteric sclera, pupils equal round reactive to light ENT: Nose and ears atraumatic, no thrush, no pharyngeal erythema Neck: No thyromegaly, no cervical lymphadenopathy, trachea midline, supple Mouth: no lip lesion, mucus membranes moist Cardiovascular: S1S2 reg, no murmur, positive posterior tibial pulse bilateral, 1+ sukhjinder LE edema, capillary refill less than 2 seconds Lungs: CTA bilateral, no rhonchi, no rales , no accessory muscle use Abdominal: soft, nontender to palpation, no guarding, no appreciable organomegaly, normal bowel sounds Ext: no gross muscle atrophy, muscle strength 5 out of 5 in all 4 extremities grossly, no contractures, Neuro: CN II-XI grossly intact, light touch intact all 4 extremities, finger to nose within normal limits, Psych: Alert, oriented, depressed affect Results CBC & Chem 7: 05/18/19 20:30 05/18/19 20:30 Labs: Abnormal Lab Results - Last 24 Hours (Table) 05/18/19 Range/Units 20:30 BUN 23 H (7-17) mg/dL Total Protein 5.9 L (6.3-8.2) g/dL Thrombosis Risk Factor Assmnt - Choose All That Apply Each Factor Represents 1 point: Obesity (BMI >25) Each Risk Factor Represents 2 Points: Age 61-74 years Thrombosis Risk Factor Assessment Total Risk Factor Score: 3 Thrombosis Risk Factor Assessment Level: Moderate Risk Assessment and Plan Plan: Chest pain, r/o ACS -Trend troponin and EKG -Cardiology consult -Cardiac monitoring -C/w Heparin infusion, Aspirin, and Lopressor Suicidal ideation -Suicide precautions -Psychiatry consult Chronic conditions: Asthma, HTN, DM, Paroxysmal Afib -C/w home meds -SEAN with FS DVT prophylaxis -Heparin infusion The patient is admitted with an anticipated less than 2 midnight stay for e valuation of chest pain CODE STATUS: Full Code Discussed with: Patient Anticipated discharge date: 1-[address]: Home A total of 40 minutes was spent on the care of this complex patient more than 50% of the time was spent in counseling and care coordination.
[2019-05-19 06:10] LABS: Glucose,Whole Blood 101 mg/dL (75-99)
[2019-05-19] MEDS: INSULIN ASPART (NovoLOG) 100 UNIT/ML VIAL SQ SCH ×3 (06:12→17:00)
--- NOTE | 2019-05-19 08:16 | P.CRDCN ---
History of Present Illness Consult date: 05/19/19 Requesting physician: Elizabet Perkins Consult reason: chest pain History of present illness: This is a 63-year-old female who follows with Dr. Villegas in the office. She has a known history of diabetes, hypertension, hyperlipidemia, she is a nonsmoker, no alcohol, history also of paroxysmal atrial fibrillation, asthma, she resides in an adult foster assisted. She has had a prior cardiac catheterization several years ago which revealed a 50% lesion in her LAD. Patient also has known schizophrenia and a component of dyskinesia. Patient had a recent hospitalization to another facility with suicidal ideation and was discharged from there. She presents to the hospital here with symptoms of midsternal chest discomfort which she states started around 2:00 yesterday afternoon. According to the patient, the pain has been persistent, it does worsen with taking a deep breath and coughing. Her EKG on presentation here showed a normal sinus rhythm with nonspecific ST-T wave changes. Chest x-ray did not reveal any active cardiopulmonary disease. Let pressure 120/60 with a heart rate in the 70s, 96% on 2 L of oxygen. White blood cell count is normal, hemoglobin 11.7, platelet count 2:30. Sodium 138, potassium 4.0, BUN 23, creatinine 0.7, magnesium 1.9. Troponins have been negative 2. BNP 193. At the time of my examination this morning, patient continues to complain of the same pain she presented with, again she states that it worsens with deep breathing and has been present since her admission here. She also states she did not sleep well through the night last night. Patient continues to have suicidal ideations and for this reason has a sitter at bedside. Past Medical History Past Medical History: COPD, Diabetes Mellitus, Hyperlipidemia, Hypertension Additional Past Medical History / Comment(s): Bronchial asthma, obesity, chronic lower extremity edema, L axillae cellulitis/abscess-cultures grew peptostreptococcus and MSSA-had I&D . Other hx: shingles/staph, R eye macular degeneration, TIA, hiatal hernia, uterine cancer with hysterectomy, tardive dyskinesia, peripheral neuropathy cause unknown, migraines, sinus problems has coronary artery disease with 50% lesion of the LAD, paroxysmal atrial fibrillation, hypertension, acid reflux, schizophrenic disorder, anxiety, peripheral neuropathy, wound vac, PICC line (removed), retention w/ chronic Bell. History of Any Multi-Drug Resistant Organisms: None Reported Past Surgical History: Adenoidectomy, Back Surgery, Cholecystectomy, Ear Surgery, Heart Catheterization, Hysterectomy, Tonsillectomy Additional Past Surgical History / Comment(s): I & D L axillae, L eye surgery for lazy eye, bilateral cataract removal, bilateral myringotomy/tubes, colonoscopy, cardiac cath on 07/24/2016 with moderate stenosis of LAD noted - no stenting at that time recommend medical management and return for angioplasty if sx persist Past Anesthesia/Blood Transfusion Reactions: No Reported Reaction Past Psychological History: Anxiety, Depression, Schizoaffective Disorder Additional Psychological History / Comment(s): Is normally a resident of a long-term. [facility] Smoking Status: Never smoker Past Alcohol Use History: None Reported Additional Past Alcohol Use History / Comment(s): Pt states she used to drink occasionally but has not had any alcohol since 2006. Denies alcoholism. Past Drug Use History: None Reported - Past Family History Mother Family Medical History: Myocardial Infarction ([place]) Additional Family Medical History / Comment(s): Mother at 72 yrs. Father Family Medical History: Cancer Additional Family Medical History / Comment(s): Throat cancer; father at 72 yrs. Brother(s) Family Medical History: Cancer Additional Family Medical History / Comment(s): Liver cancer Medications and Allergies Home Medications Medication Instructions Recorded Confirmed Type Gabapentin [Neurontin] 300 mg PO BID@0900,1700 07/21/16 11/05/18 History Atorvastatin [Lipitor] 10 mg PO HS 12/30/16 11/05/18 History Omeprazole 20 mg PO DAILY PRN 12/30/16 11/05/18 History Vit C/E/Zn/Coppr/Lutein/Zeaxan 1 cap PO DAILY 12/30/16 11/05/18 History [Preservision Areds 2 Softgel] Apixaban [Eliquis] 5 mg PO BID tab 01/15/17 11/05/18 Rx Digoxin [Lanoxin] 125 mcg PO DAILY tab 01/15/17 11/05/18 Rx Metoprolol Tartrate [Lopressor] 25 mg PO BID 02/25/17 11/05/18 History Oxybutynin Xl [Ditropan XL] 5 mg PO BID 02/25/17 11/05/18 History Isosorbide Mononitrate ER [Imdur] 60 mg PO DAILY tab 03/01/17 11/05/18 Rx Citalopram Hydrobromide [CeleXA] 40 mg PO DAILY 11/05/18 11/05/18 History cloZAPine [Clozaril] 150 mg PO DAILY 11/05/18 11/05/18 History metFORMIN HCL [Glucophage] 500 mg PO DAILY 11/05/18 11/05/18 History Amoxic-Pot Clav 875-125Mg 1 each PO Q12HR #10 tab 11/17/18 Rx [Augmentin 875-125] Loratadine [Claritin] 5 mg PO BID #20 tab 11/17/18 Rx predniSONE 10 mg PO DAILY #30 tab 11/17/18 Rx Fluconazole [Diflucan] 100 mg PO DAILY #7 tab 11/18/18 Rx Allergies Allergy/AdvReac Type Severity Reaction Status Date / Time bee venom protein (honey bee) Allergy Anaphylaxis Verified 05/18/19 22:29 lorazepam [From Ativan] Allergy Unknown Verified 05/18/19 22:29 acetaminophen [From [place]] AdvReac Confusion Verified 05/18/19 22:29 hydrocodone [From [employer] [place]] AdvReac Confusion Verified 05/18/19 22:29 Physical Exam Vitals: Vital Signs Temp Pulse Pulse Resp BP BP Pulse Ox 05/19/19 04:00 97.9 F 77 18 120/65 96 05/19/19 01:48 97.7 F 77 18 119/58 97 05/18/19 22:40 98.1 F 71 18 139/83 100 05/18/19 22:13 78 18 133/78 98 05/18/19 20:27 97.7 F 78 16 137/69 93 L Intake and Output 05/18/19 05/19/19 05/19/19 22:59 06:59 14:59 Intake Total 63.053 Balance 63.053 Intake: Intake, IV Titration 63.053 Amount Heparin Sod,Pork in 0.45% 63.053 NaCl 25,000 unit In 0.45 % NaCl 1 250ml.bag @ 12 UNITS/KG/HR 9.852 mls/hr IV .Q24H [facility] Rx#: [id number] Other: Voiding Method Toilet # Voids 1 Weight 82.1 kg 86.8 kg PHYSICAL EXAMINATION: GENERAL: 63-year-old female in no acute distress at the time of my examination HEENT: Head is atraumatic, normocephalic. Pupils equal, round. Sclera anicteric. Conjunctiva are clear. Mucous membranes of the mouth are moist. Neck is supple. There is no elevated jugular venous pressure. No carotid bruit is heard. HEART EXAMINATION: Heart S1 and S2 systolic murmur is heard CHEST EXAMINATION: Lungs are clear to auscultation and precussion. No chest wall tenderness is noted on palpation or with deep breathing. ABDOMEN: Soft, nontender. Bowel sounds are heard. No organomegaly noted. EXTREMITIES: 2+ peripheral pulses with trace evidence of peripheral edema and no calf tenderness noted. NEUROLOGIC patient is awake, alert and oriented 3. . Results 05/18/19 20:30 05/18/19 20:30 Cardiac Enzymes 05/18/19 05/18/19 05/19/19 Range/Units 20:30 20:30 03:08 AST 34 (14-36) U/L Troponin I <0.012 <0.012 (0.000-0.034) ng/mL Coagulation 05/18/19 05/19/19 Range/Units 20:30 03:54 PT 9.7 (9.0-12.0) sec APTT 24.5 41.6 H (22.0-30.0) sec CBC 05/18/19 Range/Units 20:30 WBC 6.2 (3.8-10.6) k/uL RBC 3.96 (3.80-5.40) m/uL Hgb 11.7 (11.4-16.0) gm/dL Hct 35.6 (34.0-46.0) % Plt Count 230 (150-450) k/uL Comprehensive Metabolic Panel 05/18/19 Range/Units 20:30 Sodium 138 (137-145) mmol/L Potassium 4.0 (3.5-5.1) mmol/L Chloride 106 (98-107) mmol/L Carbon Dioxide 29 (22-30) mmol/L BUN 23 H (7-17) mg/dL Creatinine 0.79 (0.52-1.04) mg/dL Glucose 95 (74-99) mg/dL Calcium 8.8 (8.4-10.2) mg/dL AST 34 (14-36) U/L ALT 23 (4-34) U/L Alkaline Phosphatase 103 (38-126) U/L Total Protein 5.9 L (6.3-8.2) g/dL Albumin 3.5 (3.5-5.0) g/dL Current Medications Generic Name Dose Route Start Last Admin Trade Name Freq PRN Reason Stop Dose Admin Aspirin 325 mg 05/19/19 09:00 Aspirin PO DAILY [facility] Heparin Sodium (Porcine) 0 unit 05/18/19 21:28 Heparin IV Q6HR PRN Low PTT Protocol Sodium Chloride 1,000 mls @ 100 mls/hr 05/18/19 21:30 05/18/19 22:18 Saline 0.9% IV 100 mls/hr .Q10H [facility]ADA Administration Heparin Sodium/Sodium Chloride 250 mls @ 9.852 mls/hr 05/18/19 21:30 05/19/19 04:49 25,000 unit/ Sodium Chloride IV 14 units/kg/hr .Q24H [facility]ADA 11.494 mls/hr Titration Protocol 12 UNITS/KG/HR Insulin Aspart 0 unit 05/19/19 07:30 05/19/19 06:12 Novolog SQ Not Given AC-TID [facility] Protocol Metoprolol Tartrate 25 mg 05/19/19 09:00 Lopressor PO BID [facility] Nitroglycerin 0.4 mg 05/18/19 21:28 Nitrostat SUBLINGUAL Q5M PRN Chest Pain Intake and Output 05/18/19 05/19/19 05/19/19 22:59 06:59 14:59 Intake Total 63.053 Balance 63.053 Intake: Intake, IV Titration 63.053 Amount Heparin Sod,Pork in 0.45% 63.053 NaCl 25,000 unit In 0.45 % NaCl 1 250ml.bag @ 12 UNITS/KG/HR 9.852 mls/hr IV .Q24H [facility] Rx#: [id number] Other: Voiding Method Toilet # Voids 1 Weight 82.1 kg 86.8 kg 05/18/19 20:30 05/18/19 20:30 EKG Interpretations (text) EKG shows normal sinus rhythm with nonspecific ST-T wave changes Assessment and Plan Plan: Assessment and plan #1 atypical chest pain, pleuritic in nature, troponins negative 2. EKG shows normal sinus rhythm with nonspecific ST-T changes #2 paroxysmal atrial fibrillation #3 hypertension #4 diabetes #5 hyperlipidemia #6 chronic lower extremity edema #7 schizophrenia #8 mild coronary artery disease by cardiac catheterization performed several years ago which revealed a 50% lesion in the LAD #9 anxiety 10 peripheral neuropathy #11 suicidal ideation Plan We will obtain an echocardiogram with Doppler study. Her most recent echo was performed in October of this year and revealed a normal left ventricular systolic function. We will also recommend the patient undergo stress testing. Further recommendations will be based on these findings and the patient's clinical course. DNP note has been reviewed, I agree with a documented findings and plan of care. Patient was seen and examined.
[2019-05-19] MEDS ORDERED: DOBUTamine DRIP for NUC MED 500 MG in DEXTROSE/WATER 1 250ML.BAG IV ONE (08:17)
[2019-05-19 08:40] LABS: Mean Platelet Volume 7.4; Platelet Count 224 k/uL (150-450)
[2019-05-19] MEDS ORDERED: ASPIRIN 325 MG TAB PO SCH (09:00)
[2019-05-19 09:41] LABS: Cholesterol 148 mg/dL (<200); HDL Cholesterol 57 mg/dL (40-60); LDL Cholesterol,Calculated 69 mg/dL (0-99); Triglycerides 108 mg/dL (<150)
--- NOTE | 2019-05-19 10:15 | P.PN ---
Progress Note - Text Progress Note Date: 05/19/19 Patient's chart review, patient currently is in stress test. Patient was seen by cardiology, she will get a stress echo today, with follow-up recommendations.
[2019-05-19 12:06] LABS: Glucose,Whole Blood 129 mg/dL (75-99)
[2019-05-19] MEDS: ASPIRIN 81 MG PO SCH (12:12)
[2019-05-19] MEDS: METOPROLOL TARTRATE 25 MG TAB PO SCH ×3 (12:12→21:19)
--- NOTE | 2019-05-19 14:03 | ECHOS ---
STRESS ECHOCARDIOGRAM DATE OF SERVICE: 05/19/2019 INDICATIONS: Chest pain. MEDICATIONS: BASELINE HEART RATE: 73 BASELINE BLOOD PRESSURE: 102/61 MAXIMUM HEART RATE: 134 MAXIMUM BLOOD PRESSURE: 211/44 85% MPHR: 134 100% MPHR: 158 METS: MAXIMUM STAGE REACHED: TOTAL EXERCISE TIME: CLINICAL INFORMATION: Baseline rhythm is sinus mechanism, rate of 73, normal axis and intervals, normal electrocardiogram. Baseline blood pressure 102/61 mmHg. Patient received an infusion of dobutamine per protocol. Peak rate 134 beats per minute which is equal to 85% maximum predicted heart rate. Peak blood pressure 211/44 mmHg. Electrocardiograph monitoring revealed [address]-segment depression that resolved in recovery. Baseline echocardiogram revealed normal wall motion. At peak exercise, there was normal wall motion augmentation with no hypokinesis or dyskinesis. CONCLUSION: 1. Borderline positive electrocardiograph response to dobutamine infusion with rare PVCs. 2. Normal stress echocardiogram with no evidence of stress induced ischemia. MMODL / IJN: [id number] /
[2019-05-19] MEDS ORDERED: PANTOPRAZOLE 40 MG TABLET PO PRN (14:32)
[2019-05-19] MEDS ORDERED: BETHANECHOL 10 MG TAB PO PRN (14:32)
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
[2019-05-19] MEDS: FUROSEMIDE 20 MG TAB PO SCH (16:55)
[2019-05-19] MEDS: cloZAPine 100 MG TAB PO SCH (16:55)
[2019-05-19] MEDS: ISOSORBIDE MONONITRATE ER 60 MG TAB.ER.24H PO SCH (16:55)
[2019-05-19] MEDS: CITALOPRAM HYDROBROMIDE 20 MG TAB PO SCH (16:55)
[2019-05-19 17:03] LABS: Glucose,Whole Blood 128 mg/dL (75-99)
[2019-05-19] MEDS: SODIUM CHLORIDE 0.9% 1,000 ML IV SCH ×2 (18:04→21:20)
--- NOTE | 2019-05-19 18:48 | ECHOF ---
Referral Reason:chest pain MEASUREMENTS -------- HEIGHT: 160.0 cm WEIGHT: 86.6 kg BP: 120/65 RVIDd: 3.0 cm (< 3.3) IVSd: 1.1 cm (0.6 - 1.1) LVIDd: 3.8 cm (3.9 - 5.3) LVPWd: 1.0 cm (0.6 - 1.1) IVSs: 1.4 cm LVIDs: 2.4 cm LVPWs: 1.5 cm LA Diam: 2.5 cm (2.7 - 3.8) LAESV Index (A-L): 13.81 ml/m Ao Diam: 3.0 cm (2.0 - 3.7) AV Cusp: 2.0 cm (1.5 - 2.6) MV EXCURSION: 16.356 mm (> 18.000) MV EF SLOPE: 113 mm/s (70 - 150) EPSS: 0.2 cm MV E Ike: 0.79 m/s MV DecT: 262 ms MV A Ike: 0.80 m/s MV E/A Ratio: 0.99 RAP: 5.00 mmHg RVSP: 27.16 mmHg FINDINGS -------- Sinus rhythm. This was a technically adequate study. The left ventricular size is normal. There is borderline concentric left ventricular hypertrophy. Overall left ventricular systolic function is normal with, an EF between 55 - 60 %. The right ventricle is normal in size. Normal LA size by volume 22+/-6 ml/m2. The right atrial size is normal. Interatrial and interventricular septum intact. There is mild aortic valve sclerosis. The mitral valve is normal. There is trace to mild mitral regurgitation. Mild tricuspid regurgitation present. Right ventricular systolic pressure is normal at < 35 mmHg. There is no pulmonic regurgitation present. The aortic root size is normal. Normal inferior vena cava with normal inspiratory collapse consistent with estimated right atrial pre ssure of 5 mmHg. There is no pericardial effusion. CONCLUSIONS -------- 1. Sinus rhythm. 2. This was a technically adequate study. 3. The left ventricular size is normal. 4. There is borderline concentric left ventricular hypertrophy. 5. Overall left ventricular systolic function is normal with, an EF between 55 - 60 %. 6. Normal LA size by volume 22+/-6 ml/m2. 7. There is mild aortic valve sclerosis. 8. There is trace to mild mitral regurgitation. 9. Mild tricuspid regurgitation present. 10. Right ventricular systolic pressure is normal at < 35 mmHg. 11. There is no pulmonic regurgitation present. 12. There is no pericardial effusion. JOINT CLEANING MACHINE OPERATOR: Cindy Zaragoza RDCS
[2019-05-19] MEDS: ALBUTEROL NEBULIZED 2.5 MG/3 ML INHALATION SCH (20:13)
[2019-05-19] MEDS ORDERED: APIXABAN 5 MG TAB PO SCH (21:00)
[2019-05-19] MEDS ORDERED: ATORVASTATIN 10 MG TAB PO SCH (21:00)
[2019-05-19 21:03] LABS: Glucose,Whole Blood 105 mg/dL (75-99)
[2019-05-19] MEDS: OXYBUTYNIN XL 5 MG TAB.ER.24 PO SCH (21:18)
[2019-05-19] MEDS: GABAPENTIN 100 MG CAP PO SCH (21:18)
[2019-05-19] MEDS: HEPARIN SOD,PORK IN 0.45% NACL 25,000 UNIT in 0.45% NACL 1 250ML.BAG IV SCH (21:25)
[2019-05-20] MEDS: SODIUM CHLORIDE 0.9% 1,000 ML IV SCH ×2 (05:10→13:02)
[2019-05-20 07:17] LABS: Glucose,Whole Blood 108 mg/dL (75-99)
[2019-05-20 07:33] LABS: Mean Platelet Volume 7.2; Platelet Count 244 k/uL (150-450)
[2019-05-20 08:05] VITALS: BP 109/71; PULSE 71; RESP 12; TEMP 98.2
[2019-05-20] MEDS: INSULIN ASPART (NovoLOG) 100 UNIT/ML VIAL SQ SCH ×2 (08:18→11:47)
[2019-05-20] MEDS: CITALOPRAM HYDROBROMIDE 20 MG TAB PO SCH (08:24)
[2019-05-20] MEDS: ISOSORBIDE MONONITRATE ER 60 MG TAB.ER.24H PO SCH (08:25)
[2019-05-20] MEDS: FUROSEMIDE 20 MG TAB PO SCH (08:25)
[2019-05-20] MEDS: OXYBUTYNIN XL 5 MG TAB.ER.24 PO SCH (08:26)
[2019-05-20] MEDS: ASPIRIN 81 MG PO SCH (08:26)
[2019-05-20] MEDS: GABAPENTIN 100 MG CAP PO SCH (08:27)
[2019-05-20] MEDS: METOPROLOL TARTRATE 25 MG TAB PO SCH (08:32)
[2019-05-20] MEDS: cloZAPine 100 MG TAB PO SCH (08:35)
[2019-05-20] MEDS ORDERED: DIGOXIN 125 MCG TAB PO SCH (09:00)
[2019-05-20] MEDS ORDERED: ACETAMINOPHEN TAB 325 MG TAB PO PRN (09:50)
[2019-05-20] MEDS: ALBUTEROL NEBULIZED 2.5 MG/3 ML INHALATION SCH (09:55)
--- NOTE | 2019-05-20 10:26 | P.DS ---
Providers Date of admission: 05/18/19 21:29 Expected date of discharge: 05/20/19 Attending physician: Elizabet Perkins MD Consults: 05/18/19 21:28 Consult Physician Urgent Consulting Provider: Ninoska Oleary Consult Reason/Comments: cp Do you want consulting provider notified?: Yes 05/18/19 23:09 Consult Physician Urgent Consulting Provider: Ki Friedman Consult Reason/Comments: suicidal ideations Do you want consulting provider notified?: Already Contacted Primary care physician: [facility] Hospital Course: 63 yo F with a PMH of paroxysmal Afib (on Eliquis), asthma, schizoaffective disorder, HTN, Type 2 DM, and GERD who presented to the ED with complaints of substernal chest discomfort. She has never had pain like this before. The pain was radiating to her right arm and was associated with some shrotness of breath, sharp in nature, intermittent, lasting a few minutes at a time, with some worsening with deep breathing. No associated dizziness, palpitations, nausea, or diaphoresis. She also reported feelings of depression and having thoughts of hurting herself which she attributes to the birthdays of many of her family members that had recently . She reported having thoughts of possibly hurting herself but denied having a particular plan. She denied cough, fever, chills, nausea, vomiting, or leg pain. She underwent an extensive evaluation in the ED w/ EKG showing NSR @ 76 bpm with T-wave flattening in V1-V6, and TWI in lead III. CXR was unremarkable. Laboratory evaluation revealed WBC count 6.2, Hgb 11.7, Na 138, K 4, CO2 23, Cr 0.79, Troponin < 0.012, BNP 193. She is admitted to the medicine service for further management. Patient was admitted for further management. She was monitored on telemetry. Heparin was started for possible unstable angina. Troponins were cycled and were negative. She underwent dobutamine stress testing that was negative for reversible ischemia. Was seen by cardiology as well. Patient also was seen by psychiatry in regards to her suicidal thoughts. She was deemed stable from the psychiatric point of view as he was not actively suicidal. She did not qualify for inpatient psychiatric admission. Throughout the hospitalization she did not have recurrent chest pain. No shortness of breath. Today she will be discharged back to her assisted living facility in stable condition. Patient Condition at Discharge: Undetermined Plan - Discharge Summary New Discharge Prescriptions: Continue Vit C/E/Zn/Coppr/Lutein/Zeaxan [Preservision Areds 2 Softgel] 1 cap PO DAILY Atorvastatin [Lipitor] 10 mg PO HS Omeprazole 20 mg PO DAILY PRN PRN Reason: Heartburn Apixaban [Eliquis] 5 mg PO BID tab Digoxin [Lanoxin] 125 mcg PO DAILY tab Metoprolol Tartrate [Lopressor] 25 mg PO BID Oxybutynin Xl [Ditropan XL] 5 mg PO BID Isosorbide Mononitrate ER [Imdur] 60 mg PO DAILY tab cloZAPine [Clozaril] 150 mg PO DAILY Citalopram Hydrobromide [CeleXA] 40 mg PO DAILY Gabapentin [Neurontin] 100 mg PO BID Nystatin 100,000 Unit/gm Oint [Mycostatin Oint] 1 applic TOPICAL BID metFORMIN HCL ER [Glucophage Xr] 500 mg PO BID Acetaminophen [Tylenol] 325 - 650 mg PO Q6H PRN PRN Reason: Pain Furosemide [Lasix] 20 mg PO DAILY Albuterol Nebulized [Ventolin Nebulized] 2.5 mg INHALATION RT-TID Nitroglycerin Sl Tabs [Nitrostat] 0.4 mg SUBLINGUAL Q5M PRN PRN Reason: Chest Pain Bethanechol Chloride 5 mg PO Q6H PRN PRN Reason: Spasms Tussin 200 mg PO QID PRN PRN Reason: Cough Discharge Medication List Atorvastatin [Lipitor] 10 mg PO HS 12/30/16 [History] Omeprazole 20 mg PO DAILY PRN 12/30/16 [History] Vit C/E/Zn/Coppr/Lutein/Zeaxan [Preservision Areds 2 Softgel] 1 cap PO DAILY 12/30/16 [History] Apixaban [Eliquis] 5 mg PO BID tab 01/15/17 [Rx] Digoxin [Lanoxin] 125 mcg PO DAILY tab 01/15/17 [Rx] Metoprolol Tartrate [Lopressor] 25 mg PO BID 02/25/17 [History] Oxybutynin Xl [Ditropan XL] 5 mg PO BID 02/25/17 [History] Isosorbide Mononitrate ER [Imdur] 60 mg PO DAILY tab 03/01/17 [Rx] Citalopram Hydrobromide [CeleXA] 40 mg PO DAILY 11/05/18 [History] cloZAPine [Clozaril] 150 mg PO DAILY 11/05/18 [History] Acetaminophen [Tylenol] 325 - 650 mg PO Q6H PRN 05/19/19 [History] Albuterol Nebulized [Ventolin Nebulized] 2.5 mg INHALATION RT-TID 05/19/19 [History] Bethanechol Chloride 5 mg PO Q6H PRN 05/19/19 [History] Furosemide [Lasix] 20 mg PO DAILY 05/19/19 [History] Gabapentin [Neurontin] 100 mg PO BID 05/19/19 [History] Nitroglycerin Sl Tabs [Nitrostat] 0.4 mg SUBLINGUAL Q5M PRN 05/19/19 [History] Nystatin 100,000 Unit/gm Oint [Mycostatin Oint] 1 applic TOPICAL BID 05/19/19 [History] Tussin 200 mg PO QID PRN 05/19/19 [History] metFORMIN HCL ER [Glucophage Xr] 500 mg PO BID 05/19/19 [History] Follow up Appointment(s)/Referral(s): Loki Gomes MD [Primary Care Provider] - 1-2 days
[2019-05-20 11:34] LABS: Glucose,Whole Blood 129 mg/dL (75-99)
== END 2019-05-20 14:13 ==
LOC: EC 19:52 → 1SOBS 21:29 → 3SCARD 05-19 01:39 → 4SSUR 05-19 18:12
PROVIDERS: ADMIT Internal Medicine; ATTEND Internal Medicine
DX: R07.89 Other chest pain (principal); J44.9 Chronic obstructive pulmonary disease, unspecified; I10 Essential (primary) hypertension; E11.42 Type 2 diabetes mellitus with diabetic polyneuropathy; I48.0 Paroxysmal atrial fibrillation; F25.0 Schizoaffective disorder, bipolar type; R07.81 Pleurodynia; I49.3 Ventricular premature depolarization; I08.2 Rheumatic disorders of both aortic and tricuspid valves; I25.10 Atherosclerotic heart disease of native coronary artery without angina pectoris; E78.5 Hyperlipidemia, unspecified; R60.0 Localized edema; H35.30 Unspecified macular degeneration; K44.9 Diaphragmatic hernia without obstruction or gangrene; G24.01 Drug induced subacute dyskinesia; G43.909 Migraine, unspecified, not intractable, without status migrainosus; K21.9 Gastro-esophageal reflux disease without esophagitis; F41.9 Anxiety disorder, unspecified; F32.9 Major depressive disorder, single episode, unspecified; R33.9 Retention of urine, unspecified; E66.9 Obesity, unspecified; Z68.33 Body mass index [BMI] 33.0-33.9, adult; Z79.899 Other long term (current) drug therapy; Z79.84 Long term (current) use of oral hypoglycemic drugs; Z79.01 Long term (current) use of anticoagulants; Z91.030 Bee allergy status; Z88.8 Allergy status to other drugs, medicaments and biological substances; Z86.19 Personal history of other infectious and parasitic diseases; Z87.2 Personal history of diseases of the skin and subcutaneous tissue; Z98.890 Other specified postprocedural states; Z86.73 Personal history of transient ischemic attack (TIA), and cerebral infarction without residual deficits; Z85.42 Personal history of malignant neoplasm of other parts of uterus; Z90.710 Acquired absence of both cervix and uterus; Z87.09 Personal history of other diseases of the respiratory system; Z96.0 Presence of urogenital implants; Z90.89 Acquired absence of other organs; Z90.49 Acquired absence of other specified parts of digestive tract; Z86.69 Personal history of other diseases of the nervous system and sense organs; Z98.42 Cataract extraction status, left eye; Z98.41 Cataract extraction status, right eye; Z82.49 Family history of ischemic heart disease and other diseases of the circulatory system; Z80.8 Family history of malignant neoplasm of other organs or systems; Z80.0 Family history of malignant neoplasm of digestive organs
CPT/HCPCS: 96366 ×3; 93005 ×2; 96376; 96365; 99291; 36415; 94640; 93306; 93351; 83880; 80061; 80053; 83690; 83735; 84484 ×2; 85025; 85049 ×2; 85610; 85730 ×2; 71046; G0378 ×5; J1250; J1644 ×2; S0136 ×2

== ENCOUNTER → 2019-06-14 | Outpatient (CLI) | payer MEDICARE, OTHER ==
--- NOTE | 2019-06-14 12:17 | FL ---
EXAMINATION TYPE: FL barium swallow w video DATE OF EXAM: 06/14/2019 MODIFIED SWALLOW / DEGLUTITION STUDY CLINICAL HISTORY: Dysphagia. TECHNIQUE: Deglutition study is performed utilizing thin liquid barium, honey and nectar thick liqui d barium, barium thick applesauce, and barium coated cracker. Total of 73 seconds of fluoroscopic e. There are 0 spot images saved to PACS. COMPARISON: None. FINDINGS: The oral and pharyngeal phases show satisfactory initiation and propagation with all modali ties tested. Satisfactory mastication is seen with solid modalities tested. There is no evidence of aspiration with any modality tested. Some transient penetration with fast drinking of thin liquid bar ium which rapidly clears is present. Note is made of long segment anterior fusion hardware from C4 th rough at least C7 level. No significant pharyngeal residue was appreciated. IMPRESSION: No penetration or aspiration observed. Please refer to speech therapist notes for furthe r details if necessary.
== END | disposition home or self-care (01) ==
LOC: RADFLMAIN 11:41
PROVIDERS: ATTEND Family Medicine
DX: I13.0 Hypertensive heart and chronic kidney disease with heart failure and stage 1 through stage 4 chronic kidney disease, or unspecified chronic kidney disease (principal); I50.32 Chronic diastolic (congestive) heart failure; N18.2 Chronic kidney disease, stage 2 (mild); I25.118 Atherosclerotic heart disease of native coronary artery with other forms of angina pectoris; I48.0 Paroxysmal atrial fibrillation; E11.22 Type 2 diabetes mellitus with diabetic chronic kidney disease; E11.69 Type 2 diabetes mellitus with other specified complication; J44.9 Chronic obstructive pulmonary disease, unspecified; K21.9 Gastro-esophageal reflux disease without esophagitis; F25.9 Schizoaffective disorder, unspecified; E53.8 Deficiency of other specified B group vitamins; E66.9 Obesity, unspecified; R32 Unspecified urinary incontinence; R13.10 Dysphagia, unspecified; R45.851 Suicidal ideations; Z99.89 Dependence on other enabling machines and devices; Z68.30 Body mass index [BMI] 30.0-30.9, adult
CPT/HCPCS: 74230

== ENCOUNTER 2020-04-24 19:36 | Inpatient (IN) | payer MEDICARE, OTHER ==
[2020-04-24] MEDS ORDERED: ALBUTEROL HFA INHALER INHALATION STA (19:58)
[2020-04-24] MEDS ORDERED: methylPREDNISolone SOD SUCCI 125 MG/2 ML VIAL IV STA (19:58)
--- NOTE | 2020-04-24 20:19 | ED ---
General Adult HPI - General Stated complaint: LALO Time Seen by Provider: 04/24/20 19:38 Source: patient, RN notes reviewed, old records reviewed - History of Present Illness Initial comments: 64-year-old female history of COPD, CHF presenting with worsening cough and dyspnea. Patient states she has a productive cough with yellow sputum. She has fever, as well as some mild chest tightness. Denies lower extremity pain or swelling. Denies abdominal pain nausea or vomiting. She does have home oxygen but does not use it very frequently. - Related Data Home Medications Medication Instructions Recorded Confirmed Atorvastatin [Lipitor] 10 mg PO HS 12/30/16 04/24/20 Metoprolol Tartrate [Lopressor] 25 mg PO BID 02/25/17 04/24/20 Oxybutynin Xl [Ditropan XL] 5 mg PO BID 02/25/17 04/24/20 Citalopram Hydrobromide [CeleXA] 40 mg PO DAILY 11/05/18 04/24/20 Furosemide [Lasix] 20 mg PO DAILY 05/19/19 04/24/20 Gabapentin [Neurontin] 200 mg PO DAILY 05/19/19 04/24/20 metFORMIN HCL ER [Glucophage Xr] 500 mg PO Q48H 05/19/19 04/24/20 Cyanocobalamin (Vitamin B-12) 1,000 mcg PO DAILY 04/24/20 04/24/20 [Vitamin B-12] LORazepam [Ativan] 1 mg PO HS PRN 04/24/20 04/24/20 Vit C/E/Zn/Coppr/Lutein/Zeaxan 1 cap PO DAILY 04/24/20 04/24/20 [Preservision Areds 2 Softgel] cloZAPine [Clozaril] 50 mg PO HS 04/24/20 04/24/20 cloZAPine [Clozaril] 200 mg PO HS 04/24/20 04/24/20 Previous Rx's Medication Instructions Recorded Apixaban [Eliquis] 5 mg PO BID tab 01/15/17 Digoxin [Lanoxin] 125 mcg PO DAILY tab 01/15/17 Isosorbide Mononitrate ER [Imdur] 60 mg PO DAILY tab 03/01/17 Allergies Allergy/AdvReac Type Severity Reaction Status Date / Time bee venom protein (honey bee) Allergy Anaphylaxis Verified 04/24/20 21:40 lorazepam [From Ativan] Allergy Unknown Verified 04/24/20 21:40 acetaminophen [From [place]] AdvReac Confusion Verified 04/24/20 21:40 hydrocodone [From [place]] AdvReac Confusion Verified 04/24/20 21:40 Review of Systems ROS Statement: Those systems with pertinent positive or pertinent negative responses have been documented in the HPI. ROS Other: All systems not noted in ROS Statement are negative. Past Medical History Past Medical History: Heart Failure, COPD, Diabetes Mellitus, Hyperlipidemia, Hypertension Additional Past Medical History / Comment(s): Bronchial asthma, obesity, chronic lower extremity edema, L axillae cellulitis/abscess-cultures grew peptostreptococcus and MSSA-had I&D . Other hx: shingles/staph, R eye macular degeneration, TIA, hiatal hernia, uterine cancer with hysterectomy, tardive dyskinesia, peripheral neuropathy cause unknown, migraines, sinus problems has coronary artery disease with 50% lesion of the LAD, paroxysmal atrial fibrillation, hypertension, acid reflux, schizophrenic disorder, anxiety, peripheral neuropathy, wound vac, PICC line (removed), retention w/ chronic Bell. History of Any Multi-Drug Resistant Organisms: None Reported Past Surgical History: Adenoidectomy, Back Surgery, Cholecystectomy, Ear Surgery, Heart Catheterization, Hysterectomy, Tonsillectomy Additional Past Surgical History / Comment(s): I & D L axillae, L eye surgery for lazy eye, bilateral cataract removal, bilateral myringotomy/tubes, colonoscopy, cardiac cath on 07/24/2016 with moderate stenosis of LAD noted - no stenting at that time recommend medical management and return for angioplasty if sx persist Past Anesthesia/Blood Transfusion Reactions: No Reported Reaction Past Psychological History: Anxiety, Depression, Schizoaffective Disorder Past Alcohol Use History: None Reported Past Drug Use History: None Reported - Past Family History Mother Family Medical History: Myocardial Infarction ([place]) Additional Family Medical History / Comment(s): Mother at 72 yrs. Father Family Medical History: Cancer Additional Family Medical History / Comment(s): Throat cancer; father at 72 yrs. Brother(s) Family Medical History: Cancer Additional Family Medical History / Comment(s): Liver cancer General Exam General appearance: alert, in no apparent distress Head exam: Present: atraumatic, normocephalic Eye exam: Present: normal appearance, PERRL ENT exam: Present: normal exam Neck exam: Present: normal inspection. Absent: tenderness, meningismus Respiratory exam: Present: respiratory distress, wheezes, decreased breath sounds Cardiovascular Exam: Present: regular rate, normal rhythm GI/Abdominal exam: Present: soft. Absent: distended, tenderness, guarding Extremities exam: Present: normal inspection, normal capillary refill. Absent: pedal edema, calf tenderness Neurological exam: Present: alert, oriented X3, CN II-XII intact. Absent: motor sensory deficit Psychiatric exam: Present: normal affect, normal mood Skin exam: Present: warm, dry, intact. Absent: cyanosis, diaphoretic Course Vital Signs 04/24/20 04/24/20 04/24/20 19:40 21:07 21:30 Temperature 98.0 F Pulse Rate 83 78 80 Respiratory 24 23 22 Rate Blood Pressure 140/81 140/81 121/76 O2 Sat by Pulse 94 L 95 96 Oximetry - Reevaluation(s) Reevaluation #1: 04/24/20 22:[address] Elizabeth who will admit EKG Findings - EKG Comments: EKG Findings:: EKG: Sinus rhythm with PAC, question ST segment depression in the lateral precordial leads no ST segment elevation, rate of 84, DE interval 144, QRS duration 74, QTC 425 Medical Decision Making - Medical Decision Making 63-year-old female presenting with fever, cough, worsening dyspnea, cough productive of yellow sputum. History of COPD. X-ray showing concern for bilateral lower lobe pneumonia, worse on the left. There is no leukocytosis, normal CMP. Negative lactic. Influenza and coronavirus testing are negative. Patient is started on ceftriaxone and azithromycin. She will be admitted for COPD exacerbation and pneumonia. - Lab Data Result diagrams: 04/24/20 20:43 04/24/20 20:43 Lab Results 04/24/20 04/24/20 04/24/20 Range/Units 20:43 20:43 20:43 WBC 8.1 (3.8-10.6) k/uL RBC 4.27 (3.80-5.40) m/uL Hgb 13.4 (11.4-16.0) gm/dL Hct 39.2 (34.0-46.0) % MCV 91.8 (80.0-100.0) fL MCH 31.3 (25.0-35.0) pg MCHC 34.0 (31.0-37.0) g/dL RDW 12.0 (11.5-15.5) % Plt Count 205 (150-450) k/uL MPV 7.6 Neutrophils % 64 % Lymphocytes % 23 % Monocytes % 6 % Eosinophils % 5 % Basophils % 1 % Neutrophils # 5.1 (1.3-7.7) k/uL Lymphocytes # 1.9 (1.0-4.8) k/uL Monocytes # 0.5 (0-1.0) k/uL Eosinophils # 0.4 (0-0.7) k/uL Basophils # 0.1 (0-0.2) k/uL PT 9.9 (9.0-12.0) sec INR 0.9 (<1.2) APTT 25.7 (22.0-30.0) sec Sodium 139 (137-145) mmol/L Potassium 3.8 (3.5-5.1) mmol/L Chloride 105 (98-107) mmol/L Carbon Dioxide 30 (22-30) mmol/L Anion Gap 4 mmol/L BUN 15 (7-17) mg/dL Creatinine 0.85 (0.52-1.04) mg/dL Est GFR (CKD-EPI)AfAm 85 (>60 ml/min/1.73 sqM) Est GFR (CKD-EPI)NonAf 73 (>60 ml/min/1.73 sqM) Glucose 125 H (74-99) mg/dL Plasma Lactic Acid [place] (0.7-2.0) mmol/L Calcium 8.8 (8.4-10.2) mg/dL Magnesium 2.0 (1.6-2.3) mg/dL Total Bilirubin 0.6 (0.2-1.3) mg/dL AST 25 (14-36) U/L ALT 18 (4-34) U/L Alkaline Phosphatase 93 (38-126) U/L Troponin I (0.000-0.034) ng/mL Total Protein 6.2 L (6.3-8.2) g/dL Albumin 3.6 (3.5-5.0) g/dL Coronavirus (PCR) (Not Detectd) Influenza Type A RNA (Not Detectd) Influenza Type B (PCR) (Not Detectd) 04/24/20 04/24/20 04/24/20 Range/Units 20:43 20:43 20:43 WBC (3.8-10.6) k/uL RBC (3.80-5.40) m/uL Hgb (11.4-16.0) gm/dL Hct (34.0-46.0) % MCV (80.0-100.0) fL MCH (25.0-35.0) pg MCHC (31.0-37.0) g/dL RDW (11.5-15.5) % Plt Count (150-450) k/uL MPV Neutrophils % % Lymphocytes % % Monocytes % % Eosinophils % % Basophils % % Neutrophils # (1.3-7.7) k/uL Lymphocytes # (1.0-4.8) k/uL Monocytes # (0-1.0) k/uL Eosinophils # (0-0.7) k/uL Basophils # (0-0.2) k/uL PT (9.0-12.0) sec INR (<1.2) APTT (22.0-30.0) sec Sodium (137-145) mmol/L Potassium (3.5-5.1) mmol/L Chloride (98-107) mmol/L Carbon Dioxide (22-30) mmol/L Anion Gap mmol/L BUN (7-17) mg/dL Creatinine (0.52-1.04) mg/dL Est GFR (CKD-EPI)AfAm (>60 ml/min/1.73 sqM) Est GFR (CKD-EPI)NonAf (>60 ml/min/1.73 sqM) Glucose (74-99) mg/dL Plasma Lactic Acid Britton 1.5 (0.7-2.0) mmol/L Calcium (8.4-10.2) mg/dL Magnesium (1.6-2.3) mg/dL Total Bilirubin (0.2-1.3) mg/dL AST (14-36) U/L ALT (4-34) U/L Alkaline Phosphatase (38-126) U/L Troponin I <0.012 (0.000-0.034) ng/mL Total Protein (6.3-8.2) g/dL Albumin (3.5-5.0) g/dL Coronavirus (PCR) (Not Detectd) Influenza Type A RNA Not Detected (Not Detectd) Influenza Type B (PCR) Not Detected (Not Detectd) 04/24/20 Range/Units 20:43 WBC (3.8-10.6) k/uL RBC (3.80-5.40) m/uL Hgb (11.4-16.0) gm/dL Hct (34.0-46.0) % MCV (80.0-100.0) fL MCH (25.0-35.0) pg MCHC (31.0-37.0) g/dL RDW (11.5-15.5) % Plt Count (150-450) k/uL MPV Neutrophils % % Lymphocytes % % Monocytes % % Eosinophils % % Basophils % % Neutrophils # (1.3-7.7) k/uL Lymphocytes # (1.0-4.8) k/uL Monocytes # (0-1.0) k/uL Eosinophils # (0-0.7) k/uL Basophils # (0-0.2) k/uL PT (9.0-12.0) sec INR (<1.2) APTT (22.0-30.0) sec Sodium (137-145) mmol/L Potassium (3.5-5.1) mmol/L Chloride (98-107) mmol/L Carbon Dioxide (22-30) mmol/L Anion Gap mmol/L BUN (7-17) mg/dL Creatinine (0.52-1.04) mg/dL Est GFR (CKD-EPI)AfAm (>60 ml/min/1.73 sqM) Est GFR (CKD-EPI)NonAf (>60 ml/min/1.73 sqM) Glucose (74-99) mg/dL Plasma Lactic Acid [place] (0.7-2.0) mmol/L Calcium (8.4-10.2) mg/dL Magnesium (1.6-2.3) mg/dL Total Bilirubin (0.2-1.3) mg/dL AST (14-36) U/L ALT (4-34) U/L Alkaline Phosphatase (38-126) U/L Troponin I (0.000-0.034) ng/mL Total Protein (6.3-8.2) g/dL Albumin (3.5-5.0) g/dL Coronavirus (PCR) Not Detected (Not Detectd) Influenza Type A RNA (Not Detectd) Influenza Type B (PCR) (Not Detectd) Disposition Clinical Impression: Community acquired pneumonia, COPD with acute exacerbation Disposition: ADMITTED IP TO THIS [facility] Condition: Stable Is patient prescribed a controlled substance at d/c from ED?: No Referrals: Loki Gomes MD [Primary Care Provider] - 1-2 days Decision to Admit Reason: Admit from EC Decision Date: 04/24/20 Decision Time: 22:03
--- NOTE | 2020-04-24 20:45 | XR ---
EXAMINATION TYPE: XR chest 1V portable DATE OF EXAM: 04/24/2020 COMPARISON: 06/27/2019 HISTORY: Cough and fever There is some mild infiltrate at the left posterior lung base. The right lung is clear. There is no heart failure. There are no hilar masses. IMPRESSION: There is a mild left lower lobe pneumonia unchanged compared to old exam. No heart failur e seen.
[2020-04-24 20:56] LABS: Basophils # (A) 0.1 k/uL (0-0.2); Basophils % (A) 1 %; Eosinophils # (A) 0.4 k/uL (0-0.7); Eosinophils % (A) 5 %; HCT 39.2 % (34.0-46.0); HGB 13.4 gm/dL (11.4-16.0); Lymphocytes # (A) 1.9 k/uL (1.0-4.8); Lymphocytes % (A) 23 %; MCH 31.3 pg (25.0-35.0); MCV 91.8 fL (80.0-100.0); Mean Platelet Volume 7.6; Monocytes # (A) 0.5 k/uL (0-1.0); Monocytes % (A) 6 %; Neutrophils # (A) 5.1 k/uL (1.3-7.7); Neutrophils % (A) 64 %; Platelet Count 205 k/uL (150-450); RBC 4.27 m/uL (3.80-5.40); WBC 8.1 k/uL (3.8-10.6)
[2020-04-24 21:06] LABS: Albumin 3.6 g/dL (3.5-5.0); Calcium 8.8 mg/dL (8.4-10.2); Potassium 3.8 mmol/L (3.5-5.1); Total Bilirubin 0.6 mg/dL (0.2-1.3); Total Protein 6.2 g/dL (6.3-8.2)
[2020-04-24 21:08] LABS: INR 0.9 (<1.2); Partial Thromboplastin Time 25.7 sec (22.0-30.0); Prothrombin Time 9.9 sec (9.0-12.0)
[2020-04-24] MEDS ORDERED: IPRATROPIUM-ALBUTEROL 3 ML NEB INHALATION PRN (22:01)
[2020-04-24] MEDS ORDERED: AZITHROMYCIN 500 MG in SODIUM CHLORIDE 0.9% 250 ML IVPB STA (22:02)
[2020-04-25] MEDS: methylPREDNISolone SOD SUCCI 125 MG/2 ML VIAL IV SCH ×3 (00:29→14:43)
[2020-04-25] MEDS ORDERED: ONDANSETRON 4 MG/2 ML VIAL IVP STA (04:50)
[2020-04-25] MEDS: IPRATROPIUM-ALBUTEROL 3 ML NEB INHALATION SCH ×4 (08:17→21:12)
[2020-04-25] MEDS ORDERED: LORazepam 1 MG TAB PO PRN (10:33)
[2020-04-25] MEDS: APIXABAN 5 MG TAB PO SCH ×2 (11:13→22:07)
[2020-04-25] MEDS: METOPROLOL TARTRATE 25 MG TAB PO SCH ×2 (11:13→22:07)
[2020-04-25] MEDS: CITALOPRAM HYDROBROMIDE 20 MG TAB PO SCH (11:14)
[2020-04-25] MEDS: GABAPENTIN 100 MG CAP PO SCH (11:14)
[2020-04-25] MEDS: OXYBUTYNIN XL 5 MG TAB.ER.24 PO SCH ×2 (11:14→22:07)
[2020-04-25] MEDS: DIGOXIN 125 MCG TAB PO SCH (11:14)
[2020-04-25] MEDS: CYANOCOBALAMIN 500 MCG TAB PO SCH (11:14)
[2020-04-25 12:38] LABS: Glucose,Whole Blood 150 mg/dL (75-99)
[2020-04-25] MEDS: INSULIN ASPART (NovoLOG) 100 UNIT/ML VIAL SQ SCH ×2 (12:40→18:04)
[2020-04-25] MEDS: guaiFENesin 600 MG TABLET.ER PO SCH ×2 (13:12→22:07)
[2020-04-25] MEDS: ISOSORBIDE MONONITRATE ER 60 MG TAB.ER.24H PO SCH (13:12)
[2020-04-25 17:22] LABS: Glucose,Whole Blood 146 mg/dL (75-99)
--- NOTE | 2020-04-25 21:15 | P.HPIM ---
History of Present Illness H&P Date: 04/25/20 Chief Complaint: Short of breath History of presenting complaint: This is a pleasant 64-year-old patient who visiting physician Dr. Gomes. Resident of [facility] . Does use a walker - baseline to get about. Chronic stable medical conditions include asthma diabetes mellitus type 2, hypertension, hyperlipidemia, hiatal hernia, peripheral neuropathy, schizoaffective disorder, GERD. Patient now presents with increasing short of breath cough with yellow sputum. No fever but decreased appetite tired rundown. Some wheezing. Review of systems: GEN.: Tired EYES: None HEENT: None NECK: None RESPIRATORY: As above CARDIOVASCULAR: None GASTROINTESTINAL: None GENITOURINARY: None MUSCULOSKELETAL: Joint pains LYMPHATICS: None HEMATOLOGICAL: None PSYCHIATRY: A bit forgetful NEUROLOGICAL: Uses a walker Past medical history to include: Persistent bronchial asthma, diabetes mellitus type 2, hypertension, hyperlipidemia, obesity, hiatal hernia, idiopathic peripheral neuropathy, GERD, schizoaffective disorder bipolar type, atrial fibrillation, macular degeneration , uterine cancer with hysterectomy, tardive dyskinesia, use a walker Social history: Lives at the [facility], does use a walker. Stopped drinking alcohol in 2006. Never smoked. Physical examination: VITAL SIGNS: 98, 83, 22, 140/81, 94% on 2 L GENERAL: BMI 31.4, propped up in bed, short of breath tired EYES: Pupils equal. Conjunctiva normal. HEENT: External appearance of nose and ears normal, oral cavity grossly normal. NECK: JVD unable to assess; masses not palpable. HEART: First and second heart sounds are normal; no edema. LUNGS: Respiratory rate increased, decreased breath sounds. Right basal crackles crackles, wheezing ABDOMEN: Soft, nontender, liver spleen not palpable, no masses palpable. PSYCH: Alert and oriented x3; mood and affect anxious. NEUROLOGICAL: Cranial nerves grossly intact; no facial asymmetry, power and sensation grossly intact. LYMPHATICS: No lymph nodes palpable in the axilla and neck INVESTIGATIONS, reviewed in the clinical context: White count 8.1 hemoglobin 13.4 platelets 205 potassium 3.8 creatinine 0.85 Pro-calcitonin 0.06 troponin I less than 0.012 Coronavirus P/Cr-not detected, influenza type A type B not detected EKG tracing personally reviewed by me-no sinus rhythm some ST segment depression leads V3 to V6 and inferior leads Chest x-ray film personally reviewed by me-right lower lobe infiltrate Assessment: -Right lower lobe pneumonia suspected gram-negative organism, POA -Acute exacerbation of Moderate persistent asthma -Diabetes mellitus type 2 -Essential Hypertension -Hyperlipidemia -Diabetic peripheral neuropathy -GERD -Paroxysmal atrial fibrillation currently sinus rhythm -Schizoaffective disorder Plan: Patient started on nebulized bronchodilator, IV steroids, IV ceftriaxone, Mucinex. Sputum be sent off for Gram stain and culture. Home medications resumed. DVT prophylaxis. Care was discussed with the patient. Past Medical History Past Medical History: Heart Failure, COPD, Diabetes Mellitus, Hyperlipidemia, Hypertension Additional Past Medical History / Comment(s): Bronchial asthma, obesity, chronic lower extremity edema, L axillae cellulitis/abscess-cultures grew peptostreptococcus and MSSA-had I&D . Other hx: shingles/staph, R eye macular degeneration, TIA, hiatal hernia, uterine cancer with hysterectomy, tardive dyskinesia, peripheral neuropathy cause unknown, migraines, sinus problems has coronary artery disease with 50% lesion of the LAD, paroxysmal atrial fibrillation, hypertension, acid reflux, schizophrenic disorder, anxiety, peripheral neuropathy, wound vac, PICC line (removed), retention w/ chronic Bell. History of Any Multi-Drug Resistant Organisms: None Reported Past Surgical History: Adenoidectomy, Back Surgery, Cholecystectomy, Ear Surgery, Heart Catheterization, Hysterectomy, Tonsillectomy Additional Past Surgical History / Comment(s): I & D L axillae, L eye surgery for lazy eye, bilateral cataract removal, bilateral myringotomy/tubes, colonoscopy, cardiac cath on 07/24/2016 with moderate stenosis of LAD noted - no stenting at that time recommend medical management and return for angioplasty if sx persist Past Anesthesia/Blood Transfusion Reactions: No Reported Reaction Past Psychological History: Anxiety, Depression, Schizoaffective Disorder Past Alcohol Use History: None Reported Past Drug Use History: None Reported - Past Family History Mother Family Medical History: Myocardial Infarction ([place]) Additional Family Medical History / Comment(s): Mother at 72 yrs. Father Family Medical History: Cancer Additional Family Medical History / Comment(s): Throat cancer; father at 72 yrs. Brother(s) Family Medical History: Cancer Additional Family Medical History / Comment(s): Liver cancer Medications and Allergies Home Medications Medication Instructions Recorded Confirmed Type Atorvastatin [Lipitor] 10 mg PO HS 12/30/16 04/24/20 History Apixaban [Eliquis] 5 mg PO BID tab 01/15/17 04/24/20 Rx Digoxin [Lanoxin] 125 mcg PO DAILY tab 01/15/17 04/24/20 Rx Metoprolol Tartrate [Lopressor] 25 mg PO BID 02/25/17 04/24/20 History Oxybutynin Xl [Ditropan XL] 5 mg PO BID 02/25/17 04/24/20 History Isosorbide Mononitrate ER [Imdur] 60 mg PO DAILY tab 03/01/17 04/24/20 Rx Citalopram Hydrobromide [CeleXA] 40 mg PO DAILY 11/05/18 04/24/20 History Furosemide [Lasix] 20 mg PO DAILY 05/19/19 04/24/20 History Gabapentin [Neurontin] 200 mg PO DAILY 05/19/19 04/24/20 History metFORMIN HCL ER [Glucophage Xr] 500 mg PO Q48H 05/19/19 04/24/20 History Cyanocobalamin (Vitamin B-12) 1,000 mcg PO DAILY 04/24/20 04/24/20 History [Vitamin B-12] LORazepam [Ativan] 1 mg PO HS PRN 04/24/20 04/24/20 History Vit C/E/Zn/Coppr/Lutein/Zeaxan 1 cap PO DAILY 04/24/20 04/24/20 History [Preservision Areds 2 Softgel] cloZAPine [Clozaril] 50 mg PO HS 04/24/20 04/24/20 History cloZAPine [Clozaril] 200 mg PO HS 04/24/20 04/24/20 History Allergies Allergy/AdvReac Type Severity Reaction Status Date / Time bee venom protein (honey bee) Allergy Anaphylaxis Verified 04/24/20 21:40 lorazepam [From Ativan] Allergy Unknown Verified 04/24/20 21:40 acetaminophen [From [place]] AdvReac Confusion Verified 04/24/20 21:40 hydrocodone [From [place]] AdvReac Confusion Verified 04/24/20 21:40 Physical Exam Vitals: Vital Signs Temp Pulse Resp BP Pulse Ox 04/25/20 08:29 108 H 04/25/20 08:18 104 H 04/25/20 05:48 100 18 107/68 100 04/24/20 23:00 84 21 120/71 95 04/24/20 22:00 81 22 121/76 96 04/24/20 21:30 80 22 121/76 96 04/24/20 21:07 78 23 140/81 95 04/24/20 19:40 98.0 F 83 24 140/81 94 L Intake and Output 04/24/20 04/25/20 04/25/20 22:59 06:59 14:59 Other: Weight 80.286 kg Results CBC & Chem 7: 04/24/20 20:43 04/24/20 20:43 Labs: Abnormal Lab Results - Last 24 Hours (Table) 04/24/20 Range/Units 20:43 Glucose 125 H (74-99) mg/dL Total Protein 6.2 L (6.3-8.2) g/dL
[2020-04-25] MEDS: cloZAPine 100 MG TAB PO SCH (22:06)
[2020-04-25] MEDS: cloZAPine 25 MG TAB PO SCH (22:06)
[2020-04-25] MEDS: ATORVASTATIN 10 MG TAB PO SCH (22:07)
[2020-04-26 06:32] LABS: Glucose,Whole Blood 125 mg/dL (75-99)
[2020-04-26] MEDS: INSULIN ASPART (NovoLOG) 100 UNIT/ML VIAL SQ SCH ×3 (07:55→16:56)
[2020-04-26] MEDS: guaiFENesin 600 MG TABLET.ER PO SCH ×2 (08:06→22:01)
[2020-04-26] MEDS: ISOSORBIDE MONONITRATE ER 60 MG TAB.ER.24H PO SCH (08:06)
[2020-04-26] MEDS: CITALOPRAM HYDROBROMIDE 20 MG TAB PO SCH (08:06)
[2020-04-26] MEDS: CYANOCOBALAMIN 500 MCG TAB PO SCH (08:06)
[2020-04-26] MEDS: METOPROLOL TARTRATE 25 MG TAB PO SCH ×2 (08:07→22:04)
[2020-04-26] MEDS: OXYBUTYNIN XL 5 MG TAB.ER.24 PO SCH ×2 (08:07→22:04)
[2020-04-26] MEDS: DIGOXIN 125 MCG TAB PO SCH (08:07)
[2020-04-26] MEDS: APIXABAN 5 MG TAB PO SCH ×2 (08:10→22:00)
[2020-04-26] MEDS: IPRATROPIUM-ALBUTEROL 3 ML NEB INHALATION SCH ×5 (09:19→20:39)
[2020-04-26] MEDS: GABAPENTIN 100 MG CAP PO SCH (10:26)
[2020-04-26 11:30] LABS: Glucose,Whole Blood 110 mg/dL (75-99)
[2020-04-26] MEDS ORDERED: AZITHROMYCIN 500 MG TAB PO STA (13:45)
[2020-04-26 16:29] LABS: Glucose,Whole Blood 129 mg/dL (75-99)
[2020-04-26] MEDS: ONDANSETRON 4 MG/2 ML VIAL IVP PRN ×2 (16:52→23:03)
[2020-04-26] MEDS: BUDESONIDE 1 MG/2 ML NEBU INHALATION SCH ×2 (17:10→20:39)
[2020-04-26] MEDS ORDERED: methylPREDNISolone SOD SUCCI 125 MG/2 ML VIAL IV STA (18:34)
--- NOTE | 2020-04-26 18:35 | P.PN ---
Progress Note - Text Progress Note Date: 04/26/20 Chief Complaint: Short of breath History of presenting complaint: This is a pleasant 64-year-old patient who visiting physician Dr. Gomes. Resident of [facility] . Does use a walker - baseline to get about. Chronic stable medical conditions include asthma diabetes mellitus type 2, hypertension, hyperlipidemia, hiatal hernia, peripheral neuropathy, schizoaffective disorder, GERD. Patient now presents with increasing short of breath cough with yellow sputum. No fever but decreased appetite tired rundown. Some wheezing. Admitted with right lower lobe pneumonia, acute exacerbation of asthma. Started on steroids, nebulized bronchodilators. Today-feeling a bit better. Eating little bit better. Short of breath. Tired Review of systems: Was done for constitutional, cardiovascular, GI, pulmonary. relevant finding as above Active Medications Albuterol/Ipratropium (Ipratropium-Albuterol 3 Ml Neb) 3 ml INHALATION Q4H [facility] Last Admin: 04/26/20 17:11 Dose: 3 ml Documented by: Apixaban (Apixaban 5 Mg Tab) 5 mg PO BID [facility] Last Admin: 04/26/20 08:10 Dose: 5 mg Documented by: Atorvastatin Calcium (Atorvastatin 10 Mg Tab) 10 mg PO [facility] Last Admin: 04/25/20 22:07 Dose: 10 mg Documented by: Azithromycin (Azithromycin 500 Mg Tab) 500 mg PO DAILY [facility] Budesonide (Budesonide 1 Mg/2 Ml Nebu) 1 mg INHALATION RT-BID [facility] Last Admin: 04/26/20 17:10 Dose: Not Given Documented by: Citalopram Hydrobromide (Citalopram Hydrobromide 20 Mg Tab) 40 mg PO DAILY [facility] Last Admin: 04/26/20 08:06 Dose: 40 mg Documented by: Clozapine (Clozapine 25 Mg Tab) 50 mg PO [facility] Stop: 05/01/20 21:01 Last Admin: 04/25/20 22:06 Dose: 50 mg Documented by: Clozapine (Clozapine 100 Mg Tab) 200 mg PO [facility] Stop: 05/01/20 23:00 Last Admin: 04/25/20 22:06 Dose: 200 mg Documented by: Cyanocobalamin (Cyanocobalamin 500 Mcg Tab) 1,000 mcg PO DAILY [facility] Last Admin: 04/26/20 08:06 Dose: 1,000 mcg Documented by: Digoxin (Digoxin 125 Mcg Tab) 125 mcg PO DAILY [facility] Last Admin: 04/26/20 08:07 Dose: 125 mcg Documented by: Gabapentin (Gabapentin 100 Mg Cap) 200 mg PO DAILY [facility] Last Admin: 04/26/20 10:26 Dose: 200 mg Documented by: Guaifenesin (Guaifenesin 600 Mg Tablet.Er) 1,200 mg PO Q12HR [facility] Last Admin: 04/26/20 08:06 Dose: 1,200 mg Documented by: Ceftriaxone Sodium 1 gm/ (Sodium Chloride) 50 mls @ 100 mls/hr IVPB Q24H [facility] Last Admin: 04/26/20 16:53 Dose: 100 mls/hr Documented by: Insulin Aspart (Insulin Aspart (Novolog) 100 Unit/Ml Vial) 0 unit SQ AC-TID [facility]; Protocol Last Admin: 04/26/20 16:56 Dose: Not Given Documented by: Isosorbide Mononitrate (Isosorbide Mononitrate Er 60 Mg Tab.Er.24h) 60 mg PO DAILY [facility] Last Admin: 04/26/20 08:06 Dose: 60 mg Documented by: Lorazepam (Lorazepam 1 Mg Tab) 1 mg PO HS PRN PRN Reason: Insomnia Metoprolol Tartrate (Metoprolol Tartrate 25 Mg Tab) 25 mg PO BID [facility] Last Admin: 04/26/20 08:07 Dose: 25 mg Documented by: Ondansetron HCl (Ondansetron 4 Mg/2 Ml Vial) 4 mg IVP Q6HR PRN PRN Reason: Nausea And Vomiting Last Admin: 04/26/20 16:52 Dose: 4 mg Documented by: Oxybutynin Chloride (Oxybutynin Xl 5 Mg Tab.Er.24) 5 mg PO BID [facility] Last Admin: 04/26/20 08:07 Dose: 5 mg Documented by: Physical examination: VITAL SIGNS: 97.8, 76, 18, 130/72, 93% room air GENERAL: Propped up in bed, a bit less short of breath today EYES: Pupils equal. Conjunctiva normal. HEENT: External appearance of nose and ears normal, oral cavity grossly normal. NECK: JVD unable to assess; masses not palpable. HEART: First and second heart sounds are normal; no edema. LUNGS: Respiratory rate increased, decreased breath sounds. Decreased Right basal crackles crackles, wheezing ABDOMEN: Soft, nontender, liver spleen not palpable, no masses palpable. PSYCH: Alert and oriented x3; mood and affect anxious. INVESTIGATIONS, reviewed in the clinical context: White count 8.1 hemoglobin 13.4 platelets 205 potassium 3.8 creatinine 0.85 Pro-calcitonin 0.06 troponin I less than 0.012 Coronavirus P/Cr-not detected, influenza type A type B not detected EKG tracing personally reviewed by me-no sinus rhythm some ST segment depression leads V3 to V6 and inferior leads Chest x-ray film personally reviewed by me-right lower lobe infiltrate Assessment: -Right lower lobe pneumonia suspected gram-negative organism, POA-started to improve -Acute exacerbation of Moderate persistent asthma, slowly improving -Diabetes mellitus type 2 -Essential Hypertension -Hyperlipidemia -Diabetic peripheral neuropathy -GERD -Paroxysmal atrial fibrillation currently sinus rhythm -Schizoaffective disorder Plan: Continue nebulized bronchodilator, IV steroids, IV ceftriaxone, Mucinex. Repeat labs. Have the patient sit up in a chair. Discussed with patient
[2020-04-26 21:00] LABS: Glucose,Whole Blood 190 mg/dL (75-99)
[2020-04-26] MEDS: ATORVASTATIN 10 MG TAB PO SCH (22:01)
[2020-04-26] MEDS: cloZAPine 25 MG TAB PO SCH (22:01)
[2020-04-26] MEDS: cloZAPine 100 MG TAB PO SCH (22:01)
[2020-04-27] MEDS: IPRATROPIUM-ALBUTEROL 3 ML NEB INHALATION SCH ×6 (02:31→19:28)
[2020-04-27] MEDS: methylPREDNISolone SOD SUCCI 40 MG/ML 1 ML VIAL IV SCH ×3 (04:14→20:31)
[2020-04-27 06:31] LABS: Basophils % (A) 0 %; Eosinophils # (A) 0.1 k/uL (0-0.7); Eosinophils % (A) 1 %; HCT 40.4 % (34.0-46.0); HGB 13.3 gm/dL (11.4-16.0); Lymphocytes # (A) 0.8 k/uL (1.0-4.8); Lymphocytes % (A) 9 %; MCHC 32.9 g/dL (31.0-37.0); MCV 94.4 fL (80.0-100.0); Mean Platelet Volume 7.4; Monocytes # (A) 0.1 k/uL (0-1.0); Monocytes % (A) 1 %; Neutrophils # (A) 7.3 k/uL (1.3-7.7); Neutrophils % (A) 89 %; Platelet Count 223 k/uL (150-450); RBC 4.28 m/uL (3.80-5.40); WBC 8.2 k/uL (3.8-10.6)
[2020-04-27 07:15] LABS: Glucose,Whole Blood 190 mg/dL (75-99)
[2020-04-27] MEDS: INSULIN ASPART (NovoLOG) 100 UNIT/ML VIAL SQ SCH ×3 (07:56→17:31)
[2020-04-27] MEDS: CITALOPRAM HYDROBROMIDE 20 MG TAB PO SCH (07:57)
[2020-04-27] MEDS: METOPROLOL TARTRATE 25 MG TAB PO SCH ×2 (07:57→20:32)
[2020-04-27] MEDS: CYANOCOBALAMIN 500 MCG TAB PO SCH (07:57)
[2020-04-27] MEDS: ISOSORBIDE MONONITRATE ER 60 MG TAB.ER.24H PO SCH (07:57)
[2020-04-27] MEDS: GABAPENTIN 100 MG CAP PO SCH (07:58)
[2020-04-27] MEDS: DIGOXIN 125 MCG TAB PO SCH (07:58)
[2020-04-27] MEDS: APIXABAN 5 MG TAB PO SCH ×2 (07:58→20:32)
[2020-04-27] MEDS: guaiFENesin 600 MG TABLET.ER PO SCH ×4 (07:58→20:32)
[2020-04-27] MEDS: AZITHROMYCIN 500 MG TAB PO SCH (07:58)
[2020-04-27] MEDS: OXYBUTYNIN XL 5 MG TAB.ER.24 PO SCH ×2 (07:59→20:32)
[2020-04-27 09:12] LABS: African American GFR (CKD) 69.4 (60.0-200.0); Anion Gap 9.8 mmol/L (4.00-12.00); Calcium 8.8 mg/dL (8.7-10.3); Carbon Dioxide 25.2 mmol/L (21.6-31.8); Non-African American GFR(CKD) 59.9 (60.0-200.0); Potassium 4.6 mmol/L (3.5-5.5)
[2020-04-27 10:35] VITALS: BMI 31.3
[2020-04-27] MEDS: BUDESONIDE 1 MG/2 ML NEBU INHALATION SCH ×2 (11:28→19:28)
[2020-04-27 11:44] LABS: Glucose,Whole Blood 105 mg/dL (75-99)
[2020-04-27 17:18] LABS: Glucose,Whole Blood 215 mg/dL (75-99)
[2020-04-27 20:29] LABS: Glucose,Whole Blood 237 mg/dL (75-99)
[2020-04-27] MEDS: ATORVASTATIN 10 MG TAB PO SCH (20:32)
[2020-04-27] MEDS: cloZAPine 25 MG TAB PO SCH (20:32)
[2020-04-27] MEDS: cloZAPine 100 MG TAB PO SCH (20:32)
--- NOTE | 2020-04-27 22:36 | P.PN ---
Progress Note - Text Progress Note Date: 04/27/20 Chief Complaint: Short of breath History of presenting complaint: This is a pleasant 64-year-old patient who visiting physician Dr. Gomes. Resident of [facility] . Does use a walker - baseline to get about. Chronic stable medical conditions include asthma diabetes mellitus type 2, hypertension, hyperlipidemia, hiatal hernia, peripheral neuropathy, schizoaffective disorder, GERD. Patient now presents with increasing short of breath cough with yellow sputum. No fever but decreased appetite tired rundown. Some wheezing. Admitted with right lower lobe pneumonia, acute exacerbation of asthma. Started on steroids, nebulized bronchodilators. Today-continues to feel better. Congestive the chest. Bringing up sputum. But feels better. Less short of breath. Oral intake improving. Review of systems: Was done for constitutional, cardiovascular, GI, pulmonary. relevant finding as above Active Medications Albuterol/Ipratropium (Ipratropium-Albuterol 3 Ml Neb) 3 ml INHALATION Q4H [facility] Last Admin: 04/27/20 19:28 Dose: 3 ml Documented by: Apixaban (Apixaban 5 Mg Tab) 5 mg PO BID [facility] Last Admin: 04/27/20 20:32 Dose: 5 mg Documented by: Atorvastatin Calcium (Atorvastatin 10 Mg Tab) 10 mg PO HS [facility] Last Admin: 04/27/20 20:32 Dose: 10 mg Documented by: Azithromycin (Azithromycin 500 Mg Tab) 500 mg PO DAILY [facility] Last Admin: 04/27/20 07:58 Dose: 500 mg Documented by: Budesonide (Budesonide 1 Mg/2 Ml Nebu) 1 mg INHALATION RT-BID [facility] Last Admin: 04/27/20 19:28 Dose: 1 mg Documented by: Citalopram Hydrobromide (Citalopram Hydrobromide 20 Mg Tab) 40 mg PO DAILY [facility] Last Admin: 04/27/20 07:57 Dose: 40 mg Documented by: Clozapine (Clozapine 25 Mg Tab) 50 mg PO [facility] Stop: 05/01/20 21:01 Last Admin: 04/27/20 20:32 Dose: 50 mg Documented by: Clozapine (Clozapine 100 Mg Tab) 200 mg PO [facility] Stop: 05/01/20 23:00 Last Admin: 04/27/20 20:32 Dose: 200 mg Documented by: Cyanocobalamin (Cyanocobalamin 500 Mcg Tab) 1,000 mcg PO DAILY [facility] Last Admin: 04/27/20 07:57 Dose: 1,000 mcg Documented by: Digoxin (Digoxin 125 Mcg Tab) 125 mcg PO DAILY [facility] Last Admin: 04/27/20 07:58 Dose: 125 mcg Documented by: Gabapentin (Gabapentin 100 Mg Cap) 200 mg PO DAILY [facility] Last Admin: 04/27/20 07:58 Dose: 200 mg Documented by: Guaifenesin (Guaifenesin 600 Mg Tablet.Er) 600 mg PO QID [facility] Last Admin: 04/27/20 20:32 Dose: 600 mg Documented by: Ceftriaxone Sodium 1 gm/ (Sodium Chloride) 50 mls @ 100 mls/hr IVPB Q24H [facility] Last Admin: 04/27/20 17:31 Dose: 100 mls/hr Documented by: Insulin Aspart (Insulin Aspart (Novolog) 100 Unit/Ml Vial) 0 unit SQ AC-TID [facility]; Protocol Last Admin: 04/27/20 17:31 Dose: 3 unit Documented by: Isosorbide Mononitrate (Isosorbide Mononitrate Er 60 Mg Tab.Er.24h) 60 mg PO DAILY [facility] Last Admin: 04/27/20 07:57 Dose: 60 mg Documented by: Lorazepam (Lorazepam 1 Mg Tab) 1 mg PO HS PRN PRN Reason: Insomnia Methylprednisolone Sodium Succinate (Methylprednisolone Sod Succi 40 Mg/Ml 1 Ml Vial) 40 mg IV Q8H [facility] Last Admin: 04/27/20 20:31 Dose: 40 mg Documented by: Metoprolol Tartrate (Metoprolol Tartrate 25 Mg Tab) 25 mg PO BID [facility] Last Admin: 04/27/20 20:32 Dose: 25 mg Documented by: Ondansetron HCl (Ondansetron 4 Mg/2 Ml Vial) 4 mg IVP Q6HR PRN PRN Reason: Nausea And Vomiting Last Admin: 04/26/20 23:03 Dose: 4 mg Documented by: Oxybutynin Chloride (Oxybutynin Xl 5 Mg Tab.Er.24) 5 mg PO BID [facility] Last Admin: 04/27/20 20:32 Dose: 5 mg Documented by: Physical examination: VITAL SIGNS: 68.1, 102, 20, 1 23 x 69, 91% on 3 L GENERAL: Sitting of the edge of the bed, breathing a bit better EYES: Pupils equal. Conjunctiva normal. HEENT: External appearance of nose and ears normal, oral cavity grossly normal. NECK: JVD unable to assess; masses not palpable. HEART: First and second heart sounds are normal; no edema. LUNGS: Respiratory rate increased, decreased breath sounds. Decreased crackles ABDOMEN: Soft, nontender, liver spleen not palpable, no masses palpable. PSYCH: Alert and oriented x3; mood and affect anxious. INVESTIGATIONS, reviewed in the clinical context: April 27: White count 8.2 hemoglobin 13.3 lymphocytes 0.8 potassium 4.6 creatinine 1.0 White count 8.1 hemoglobin 13.4 platelets 205 potassium 3.8 creatinine 0.85 Pro-calcitonin 0.06 troponin I less than 0.012 Coronavirus P/Cr-not detected, influenza type A type B not detected EKG tracing personally reviewed by me-no sinus rhythm some ST segment depression leads V3 to V6 and inferior leads Chest x-ray film personally reviewed by me-right lower lobe infiltrate Assessment: -Right lower lobe pneumonia suspected gram-negative organism, improving -Acute exacerbation of Moderate persistent asthma, slowly improving -Diabetes mellitus type 2 -Essential Hypertension -Hyperlipidemia -Diabetic peripheral neuropathy -GERD -Paroxysmal atrial fibrillation currently sinus rhythm -Schizoaffective disorder Plan: Continue nebulized bronchodilator, IV steroids, IV ceftriaxone, Mucinex. Patient very keen to go home today. Did request to stay at least 24 hours. Change Mucinex to 600 mg every 6.
[2020-04-28] MEDS: IPRATROPIUM-ALBUTEROL 3 ML NEB INHALATION SCH ×6 (03:13→19:25)
[2020-04-28] MEDS: methylPREDNISolone SOD SUCCI 40 MG/ML 1 ML VIAL IV SCH ×3 (03:23→20:10)
[2020-04-28 07:01] LABS: Glucose,Whole Blood 160 mg/dL (75-99)
[2020-04-28] MEDS: APIXABAN 5 MG TAB PO SCH ×2 (07:35→20:09)
[2020-04-28] MEDS: OXYBUTYNIN XL 5 MG TAB.ER.24 PO SCH ×2 (07:35→20:10)
[2020-04-28] MEDS: ISOSORBIDE MONONITRATE ER 60 MG TAB.ER.24H PO SCH (07:35)
[2020-04-28] MEDS: DIGOXIN 125 MCG TAB PO SCH (07:36)
[2020-04-28] MEDS: AZITHROMYCIN 500 MG TAB PO SCH (07:36)
[2020-04-28] MEDS: CYANOCOBALAMIN 500 MCG TAB PO SCH (07:36)
[2020-04-28] MEDS: guaiFENesin 600 MG TABLET.ER PO SCH ×4 (07:36→20:10)
[2020-04-28] MEDS: CITALOPRAM HYDROBROMIDE 20 MG TAB PO SCH (07:37)
[2020-04-28] MEDS: GABAPENTIN 100 MG CAP PO SCH (07:37)
[2020-04-28] MEDS: INSULIN ASPART (NovoLOG) 100 UNIT/ML VIAL SQ SCH ×3 (07:37→17:16)
[2020-04-28] MEDS: METOPROLOL TARTRATE 25 MG TAB PO SCH ×2 (07:37→20:10)
[2020-04-28] MEDS: BUDESONIDE 1 MG/2 ML NEBU INHALATION SCH ×2 (07:57→19:25)
--- NOTE | 2020-04-28 09:16 | XR ---
EXAMINATION TYPE: XR chest 2V DATE OF EXAM: 04/28/2020 COMPARISON: 04/24/2020 HISTORY: 64 year-old female follow-up pneumonia TECHNIQUE: PA and lateral views FINDINGS: Heart normal size. The pulmonary vasculature is within normal limits. Some patchy retrocardiac opacit y remains. Then a atelectasis left lower lung is seen. ACDF hardware. Hyperinflation. IMPRESSION: COPD. Mild retrocardiac infiltrate remains. New band of atelectasis left lower lung.
[2020-04-28 11:33] LABS: Glucose,Whole Blood 107 mg/dL (75-99)
[2020-04-28 17:03] LABS: Glucose,Whole Blood 161 mg/dL (75-99)
[2020-04-28 20:03] LABS: Glucose,Whole Blood 161 mg/dL (75-99)
[2020-04-28] MEDS: cloZAPine 25 MG TAB PO SCH (20:09)
[2020-04-28] MEDS: ATORVASTATIN 10 MG TAB PO SCH (20:10)
[2020-04-28] MEDS: cloZAPine 100 MG TAB PO SCH (20:10)
--- NOTE | 2020-04-29 00:34 | P.PN ---
Progress Note - Text Progress Note Date: 04/28/20 Chief Complaint: Short of breath History of presenting complaint: This is a pleasant 64-year-old patient who visiting physician Dr. Gomes. Resident of [facility] . Does use a walker - baseline to get about. Chronic stable medical conditions include asthma diabetes mellitus type 2, hypertension, hyperlipidemia, hiatal hernia, peripheral neuropathy, schizoaffective disorder, GERD. Patient now presents with increasing short of breath cough with yellow sputum. No fever but decreased appetite tired rundown. Some wheezing. Admitted with right lower lobe pneumonia, acute exacerbation of asthma. Started on steroids, nebulized bronchodilators. Today-breathing better but still rather congested. Oral intake improving. Not expectorating much Review of systems: Was done for constitutional, cardiovascular, GI, pulmonary. relevant finding as above Active Medications Albuterol/Ipratropium (Ipratropium-Albuterol 3 Ml Neb) 3 ml INHALATION Q4H [facility] Last Admin: 04/28/20 19:25 Dose: 3 ml Documented by: Apixaban (Apixaban 5 Mg Tab) 5 mg PO BID [facility] Last Admin: 04/28/20 20:09 Dose: 5 mg Documented by: Atorvastatin Calcium (Atorvastatin 10 Mg Tab) 10 mg PO HS [facility] Last Admin: 04/28/20 20:10 Dose: 10 mg Documented by: Azithromycin (Azithromycin 500 Mg Tab) 500 mg PO DAILY [facility] Last Admin: 04/28/20 07:36 Dose: 500 mg Documented by: Budesonide (Budesonide 1 Mg/2 Ml Nebu) 1 mg INHALATION RT-BID [facility] Last Admin: 04/28/20 19:25 Dose: 1 mg Documented by: Citalopram Hydrobromide (Citalopram Hydrobromide 20 Mg Tab) 40 mg PO DAILY [facility] Last Admin: 04/28/20 07:37 Dose: 40 mg Documented by: Clozapine (Clozapine 25 Mg Tab) 50 mg PO [facility] Stop: 05/01/20 21:01 Last Admin: 04/28/20 20:09 Dose: 50 mg Documented by: Clozapine (Clozapine 100 Mg Tab) 200 mg PO [facility] Stop: 05/01/20 23:00 Last Admin: 04/28/20 20:10 Dose: 200 mg Documented by: Cyanocobalamin (Cyanocobalamin 500 Mcg Tab) 1,000 mcg PO DAILY [facility] Last Admin: 04/28/20 07:36 Dose: 1,000 mcg Documented by: Digoxin (Digoxin 125 Mcg Tab) 125 mcg PO DAILY [facility] Last Admin: 04/28/20 07:36 Dose: 125 mcg Documented by: Gabapentin (Gabapentin 100 Mg Cap) 200 mg PO DAILY [facility] Last Admin: 04/28/20 07:37 Dose: 200 mg Documented by: Guaifenesin (Guaifenesin 600 Mg Tablet.Er) 600 mg PO QID [facility] Last Admin: 04/28/20 20:10 Dose: 600 mg Documented by: Ceftriaxone Sodium 1 gm/ (Sodium Chloride) 50 mls @ 100 mls/hr IVPB Q24H [facility] Last Admin: 04/28/20 17:17 Dose: 100 mls/hr Documented by: Insulin Aspart (Insulin Aspart (Novolog) 100 Unit/Ml Vial) 0 unit SQ AC-TID [facility]; Protocol Last Admin: 04/28/20 17:16 Dose: 1 unit Documented by: Isosorbide Mononitrate (Isosorbide Mononitrate Er 60 Mg Tab.Er.24h) 60 mg PO DAILY [facility] Last Admin: 04/28/20 07:35 Dose: 60 mg Documented by: Lorazepam (Lorazepam 1 Mg Tab) 1 mg PO HS PRN PRN Reason: Insomnia Methylprednisolone Sodium Succinate (Methylprednisolone Sod Succi 40 Mg/Ml 1 Ml Vial) 40 mg IV Q8H [facility] Last Admin: 04/28/20 20:10 Dose: 40 mg Documented by: Metoprolol Tartrate (Metoprolol Tartrate 25 Mg Tab) 25 mg PO BID [facility] Last Admin: 04/28/20 20:10 Dose: 25 mg Documented by: Ondansetron HCl (Ondansetron 4 Mg/2 Ml Vial) 4 mg IVP Q6HR PRN PRN Reason: Nausea And Vomiting Last Admin: 04/26/20 23:03 Dose: 4 mg Documented by: Oxybutynin Chloride (Oxybutynin Xl 5 Mg Tab.Er.24) 5 mg PO BID [facility] Last Admin: 04/28/20 20:10 Dose: 5 mg Documented by: Physical examination: VITAL SIGNS: 97.5, 83, 16, 125/74, 94% on 4 L GENERAL: Sitting sitting up, breathing better EYES: Pupils equal. Conjunctiva normal. HEENT: External appearance of nose and ears normal, oral cavity grossly normal. NECK: JVD unable to assess; masses not palpable. HEART: First and second heart sounds are normal; no edema. LUNGS: Respiratory rate increased, decreased breath sounds. Few are crackles ABDOMEN: Soft, nontender, liver spleen not palpable, no masses palpable. PSYCH: Alert and oriented x3; mood and affect anxious. INVESTIGATIONS, reviewed in the clinical context: April 27: White count 8.2 hemoglobin 13.3 lymphocytes 0.8 potassium 4.6 creatinine 1.0 White count 8.1 hemoglobin 13.4 platelets 205 potassium 3.8 creatinine 0.85 Pro-calcitonin 0.06 troponin I less than 0.012 Coronavirus P/Cr-not detected, influenza type A type B not detected EKG tracing personally reviewed by me-no sinus rhythm some ST segment depression leads V3 to V6 and inferior leads Chest x-ray film personally reviewed by me-right lower lobe infiltrate Assessment: -Right lower lobe pneumonia suspected gram-negative organism, improving -Acute exacerbation of Moderate persistent asthma, slowly improving -Diabetes mellitus type 2 -Essential Hypertension -Hyperlipidemia -Diabetic peripheral neuropathy -GERD -Paroxysmal atrial fibrillation currently sinus rhythm -Schizoaffective disorder Plan: Continue nebulized bronchodilator, IV steroids, IV ceftriaxone, Mucinex. Discussed with patient. That she not back to what I would like clinically. Probably watch for another one or 2 days depending on clinical course.
[2020-04-29] MEDS: IPRATROPIUM-ALBUTEROL 3 ML NEB INHALATION SCH ×5 (02:26→18:00)
[2020-04-29] MEDS: methylPREDNISolone SOD SUCCI 40 MG/ML 1 ML VIAL IV SCH ×2 (05:15→11:48)
[2020-04-29 07:04] LABS: Glucose,Whole Blood 137 mg/dL (75-99)
[2020-04-29] MEDS: BUDESONIDE 1 MG/2 ML NEBU INHALATION SCH (07:27)
[2020-04-29] MEDS: GABAPENTIN 100 MG CAP PO SCH (07:48)
[2020-04-29] MEDS: OXYBUTYNIN XL 5 MG TAB.ER.24 PO SCH (07:49)
[2020-04-29] MEDS: CYANOCOBALAMIN 500 MCG TAB PO SCH (07:49)
[2020-04-29] MEDS: guaiFENesin 600 MG TABLET.ER PO SCH ×3 (07:49→17:06)
[2020-04-29] MEDS: INSULIN ASPART (NovoLOG) 100 UNIT/ML VIAL SQ SCH ×3 (07:49→17:06)
[2020-04-29] MEDS: METOPROLOL TARTRATE 25 MG TAB PO SCH (07:49)
[2020-04-29] MEDS: ISOSORBIDE MONONITRATE ER 60 MG TAB.ER.24H PO SCH (07:49)
[2020-04-29] MEDS: CITALOPRAM HYDROBROMIDE 20 MG TAB PO SCH (07:49)
[2020-04-29] MEDS: APIXABAN 5 MG TAB PO SCH (07:49)
[2020-04-29] MEDS: AZITHROMYCIN 500 MG TAB PO SCH (07:50)
[2020-04-29] MEDS: DIGOXIN 125 MCG TAB PO SCH (07:50)
[2020-04-29 11:23] LABS: Glucose,Whole Blood 149 mg/dL (75-99)
[2020-04-29 14:34] VITALS: BP 128/75; PULSE 78; RESP 18; TEMP 97.4
--- NOTE | 2020-04-30 19:16 | P.DS ---
Providers Date of admission: 04/24/20 22:01 Expected date of discharge: 04/29/20 Attending physician: Marvin Elizabeth Primary care physician: Loki Gomes [facility] Course: Chief Complaint: Short of breath History of presenting complaint: This is a pleasant 64-year-old patient who visiting physician Dr. Gomes. Resident of [facility] . Does use a walker - baseline to get about. Chronic stable medical conditions include asthma diabetes mellitus type 2, hypertension, hyperlipidemia, hiatal hernia, peripheral neuropathy, schizoaffective disorder, GERD. Patient now presents with increasing short of breath cough with yellow sputum. No fever but decreased appetite tired rundown. Some wheezing. Admitted with right lower lobe pneumonia, acute exacerbation of asthma. Started on steroids, nebulized bronchodilators. Today-breathing stable. Oral intake fair. Keen to go home. Pulse ox good on room air Physical examination: VITAL SIGNS: 97.5, 84, 18, 1 28 x 83, 92% room air GENERAL: Sitting up, more comfortable EYES: Pupils equal. Conjunctiva normal. HEENT: External appearance of nose and ears normal, oral cavity grossly normal. NECK: JVD unable to assess; masses not palpable. HEART: First and second heart sounds are normal; no edema. LUNGS: Respiratory rate increased, decreased breath sounds. ABDOMEN: Soft, nontender, liver spleen not palpable, no masses palpable. PSYCH: Alert and oriented x3; mood and affect anxious. INVESTIGATIONS, reviewed in the clinical context: April 27: White count 8.2 hemoglobin 13.3 lymphocytes 0.8 potassium 4.6 creatinine 1.0 White count 8.1 hemoglobin 13.4 platelets 205 potassium 3.8 creatinine 0.85 Pro-calcitonin 0.06 troponin I less than 0.012 Coronavirus P/Cr-not detected, influenza type A type B not detected EKG tracing personally reviewed by me-no sinus rhythm some ST segment depression leads V3 to V6 and inferior leads Chest x-ray film personally reviewed by me-right lower lobe infiltrate Assessment: -Right lower lobe pneumonia suspected gram-negative organism, POA -Acute exacerbation of Moderate persistent asthma, POA -Diabetes mellitus type 2 -Essential Hypertension -Hyperlipidemia -Diabetic peripheral neuropathy -GERD -Paroxysmal atrial fibrillation currently sinus rhythm -Schizoaffective disorder Disposition: Assisted living - [facility] Patient Condition at Discharge: Stable Plan - Discharge Summary Discharge Rx Participant: No New Discharge Prescriptions: New Cefuroxime Axetil [Ceftin] 500 mg PO BID #6 tab guaiFENesin [Mucinex] 600 mg PO QID #60 tablet.er predniSONE 0 mg PO DIRECTED #10 tab Albuterol Sulfate [Ventolin HFA] 1 - 2 puff INHALATION Q6H PRN #1 inhaler PRN Reason: Wheezing Continue Atorvastatin [Lipitor] 10 mg PO HS Apixaban [Eliquis] 5 mg PO BID tab Digoxin [Lanoxin] 125 mcg PO DAILY tab Metoprolol Tartrate [Lopressor] 25 mg PO BID Oxybutynin Xl [Ditropan XL] 5 mg PO BID Isosorbide Mononitrate ER [Imdur] 60 mg PO DAILY tab Citalopram Hydrobromide [CeleXA] 40 mg PO DAILY Gabapentin [Neurontin] 200 mg PO DAILY metFORMIN HCL ER [Glucophage Xr] 500 mg PO Q48H Vit C/E/Zn/Coppr/Lutein/Zeaxan [Preservision Areds 2 Softgel] 1 cap PO DAILY cloZAPine [Clozaril] 50 mg PO HS cloZAPine [Clozaril] 200 mg PO HS LORazepam [Ativan] 1 mg PO HS PRN PRN Reason: Insomnia Cyanocobalamin (Vitamin B-12) [Vitamin B-12] 1,000 mcg PO DAILY Discontinued Furosemide [Lasix] 20 mg PO DAILY Discharge Medication List Atorvastatin [Lipitor] 10 mg PO HS 12/30/16 [History] Apixaban [Eliquis] 5 mg PO BID tab 01/15/17 [Rx] Digoxin [Lanoxin] 125 mcg PO DAILY tab 01/15/17 [Rx] Metoprolol Tartrate [Lopressor] 25 mg PO BID 02/25/17 [History] Oxybutynin Xl [Ditropan XL] 5 mg PO BID 02/25/17 [History] Isosorbide Mononitrate ER [Imdur] 60 mg PO DAILY tab 03/01/17 [Rx] Citalopram Hydrobromide [CeleXA] 40 mg PO DAILY 11/05/18 [History] Gabapentin [Neurontin] 200 mg PO DAILY 05/19/19 [History] metFORMIN HCL ER [Glucophage Xr] 500 mg PO Q48H 05/19/19 [History] Cyanocobalamin (Vitamin B-12) [Vitamin B-12] 1,000 mcg PO DAILY 04/24/20 [History] LORazepam [Ativan] 1 mg PO HS PRN 04/24/20 [History] Vit C/E/Zn/Coppr/Lutein/Zeaxan [Preservision Areds 2 Softgel] 1 cap PO DAILY 04/24/20 [History] cloZAPine [Clozaril] 50 mg PO HS 04/24/20 [History] cloZAPine [Clozaril] 200 mg PO HS 04/24/20 [History] Albuterol Sulfate [Ventolin HFA] 1 - 2 puff INHALATION Q6H PRN #1 inhaler 04/29/20 [Rx] Cefuroxime Axetil [Ceftin] 500 mg PO BID #6 tab 04/29/20 [Rx] guaiFENesin [Mucinex] 600 mg PO QID #60 tablet.er 04/29/20 [Rx] predniSONE 0 mg PO DIRECTED #10 tab 04/29/20 [Rx] Follow up Appointment(s)/Referral(s): Loki Gomes MD [Primary Care Provider] - 05/01/20 (This is a video call. office will call with time ) Patient Instructions/Handouts: COPD (Chronic Obstructive Pulmonary Disease) (DC) Discharge Disposition: HOME SELF-CARE
== END 2020-04-29 18:47 | disposition home or self-care (01) | DRG 178 ==
LOC: EC 19:36 → 4SSUR 22:01
PROVIDERS: ADMIT Hospitalist; ATTEND Hospitalist
DX: J15.6 Pneumonia due to other Gram-negative bacteria (principal); J45.41 Moderate persistent asthma with (acute) exacerbation; F25.9 Schizoaffective disorder, unspecified; I50.9 Heart failure, unspecified; I11.0 Hypertensive heart disease with heart failure; E11.9 Type 2 diabetes mellitus without complications; I48.0 Paroxysmal atrial fibrillation; J44.9 Chronic obstructive pulmonary disease, unspecified; Z20.828 Contact with and (suspected) exposure to other viral communicable diseases; G60.9 Hereditary and idiopathic neuropathy, unspecified; E78.5 Hyperlipidemia, unspecified; F32.9 Major depressive disorder, single episode, unspecified; F41.9 Anxiety disorder, unspecified; I25.10 Atherosclerotic heart disease of native coronary artery without angina pectoris; K21.9 Gastro-esophageal reflux disease without esophagitis; K44.9 Diaphragmatic hernia without obstruction or gangrene; E66.9 Obesity, unspecified; G24.01 Drug induced subacute dyskinesia; G43.909 Migraine, unspecified, not intractable, without status migrainosus; R60.0 Localized edema; H35.30 Unspecified macular degeneration; R33.9 Retention of urine, unspecified; Z79.01 Long term (current) use of anticoagulants; Z79.84 Long term (current) use of oral hypoglycemic drugs; Z79.899 Other long term (current) drug therapy; Z86.73 Personal history of transient ischemic attack (TIA), and cerebral infarction without residual deficits; Z90.710 Acquired absence of both cervix and uterus; Z85.42 Personal history of malignant neoplasm of other parts of uterus; Z88.5 Allergy status to narcotic agent; Z88.8 Allergy status to other drugs, medicaments and biological substances; Z91.030 Bee allergy status; Z90.49 Acquired absence of other specified parts of digestive tract; Z87.19 Personal history of other diseases of the digestive system; Z87.898 Personal history of other specified conditions; Z90.89 Acquired absence of other organs; Z98.42 Cataract extraction status, left eye; Z98.41 Cataract extraction status, right eye; Z98.890 Other specified postprocedural states; Z80.0 Family history of malignant neoplasm of digestive organs; Z80.8 Family history of malignant neoplasm of other organs or systems; Z82.49 Family history of ischemic heart disease and other diseases of the circulatory system
CPT/HCPCS: 36415; 71045; 71046; 80048; 80053; 83605; 83735; 84145; 84484; 85025; 85610; 85730; 87040; 87070; 87205; 87502; 87635; 93005; 94640; 96365; 96366; 96367; 96375; 96376; 99285

== ENCOUNTER 2021-04-03 11:23 | Emergency (ER) | payer MEDICARE, OTHER ==
[2021-04-03] MEDS ORDERED: IBUPROFEN 600 MG TAB PO STA (12:06)
[2021-04-03] MEDS ORDERED: ACETAMINOPHEN TAB 500 MG TAB PO STA (12:06)
--- NOTE | 2021-04-03 12:06 | ED ---
General Adult HPI - General Stated complaint: LALO Time Seen by Provider: 04/03/21 11:25 Source: patient, RN notes reviewed, old records reviewed - History of Present Illness Initial comments: This is a 65-year-old female who presents emergency Department complaining of coughing and also feeling very hot. Patient states she does feel a little bit short of breath particularly when coughing. Patient denies chest pain. Patient states the symptoms started 2 days ago. Patient states he is vaccinated for COVID 19. Patient's denies any abdominal pain patient denies nausea vomiting diarrhea. Patient denies any vomiting or diarrhea. Patient denies any injury or trauma. - Related Data Home Medications Medication Instructions Recorded Confirmed Atorvastatin [Lipitor] 10 mg PO HS 12/30/16 04/03/21 Metoprolol Tartrate [Lopressor] 12.5 mg PO BID 02/25/17 04/03/21 Oxybutynin Xl [Ditropan XL] 5 mg PO BID 02/25/17 04/03/21 Citalopram Hydrobromide [CeleXA] 40 mg PO DAILY 11/05/18 04/03/21 Gabapentin [Neurontin] 200 mg PO DAILY 05/19/19 04/03/21 metFORMIN HCL ER [Glucophage XR] 500 mg PO Q48H 05/19/19 04/03/21 Cyanocobalamin (Vitamin B-12) 1,000 mcg PO DAILY 04/24/20 04/03/21 [Vitamin B-12] LORazepam [Ativan] 1 mg PO HS PRN 04/24/20 04/03/21 Vit C/E/Zn/Coppr/Lutein/Zeaxan 1 cap PO DAILY 04/24/20 04/03/21 [Preservision Areds 2 Softgel] cloZAPine [Clozaril] 300 mg PO HS 04/24/20 04/03/21 Ascorbic Acid [Vitamin C] 500 mg PO BID 04/03/21 04/03/21 Benadryl [place] 2-0.1% 1 applic TOPICAL QID PRN 04/03/21 04/03/21 Furosemide [Lasix] 20 mg PO DAILY 04/03/21 04/03/21 Previous Rx's Medication Instructions Recorded Apixaban [Eliquis] 5 mg PO BID tab 01/15/17 Digoxin [Lanoxin] 125 mcg PO DAILY tab 01/15/17 Isosorbide Mononitrate ER [Imdur] 60 mg PO DAILY tab 03/01/17 Dexamethasone [Decadron] 6 mg PO DAILY #7 tablet 04/03/21 Allergies Allergy/AdvReac Type Severity Reaction Status Date / Time bee venom protein (honey bee) Allergy Anaphylaxis Verified 04/03/21 12:50 lorazepam [From Ativan] Allergy Unknown Verified 04/03/21 12:50 acetaminophen [From [place]] AdvReac Confusion Verified 04/03/21 12:50 hydrocodone [From [place]] AdvReac Confusion Verified 04/03/21 12:50 Review of Systems ROS Statement: Those systems with pertinent positive or pertinent negative responses have been documented in the HPI. ROS Other: All systems not noted in ROS Statement are negative. Past Medical History Past Medical History: Atrial Fibrillation, Coronary Artery Disease (CAD), Cancer, Heart Failure, COPD, CVA/TIA, Diabetes Mellitus, Eye Disorder, GERD/Reflux, Hyperlipidemia, Hypertension Additional Past Medical History / Comment(s): NIDDM type II, neuropathy bilateral feet, bronchial asthma, home oxygen prn, obesity, occasional lower extremity edema, past L axillae cellulitis/abscess-lengthy heal, shingles/staph, R eye wet macular degeneration/ L eye dry macular degeneration, uterine cancer with hysterectomy, TIA, hiatal hernia, uterine cancer with hysterectomy, tardive dyskinesia r/t psych medication, migraines, sinus problems, paroxysmal atrial fibrillation, past urinary retention w/ past chronic mackenzie, UTIs. History of Any Multi-Drug Resistant Organisms: None Reported Past Surgical History: Adenoidectomy, Cholecystectomy, Ear Surgery, Heart Catheterization, Hysterectomy, Tonsillectomy Additional Past Surgical History / Comment(s): I & D L axillae, L eye surgery for lazy eye, bilateral cataract removal, bilateral myringotomy/tubes, colonoscopy, bronchoscopy, cervical surgery Past Anesthesia/Blood Transfusion Reactions: No Reported Reaction Smoking Status: Never smoker - Past Family History Mother Family Medical History: Myocardial Infarction ([place]) Additional Family Medical History / Comment(s): Mother at 72 yrs. Father Family Medical History: Cancer Additional Family Medical History / Comment(s): Throat cancer; father at 72 yrs. Brother(s) Family Medical History: Cancer Additional Family Medical History / Comment(s): Liver cancer General Exam - General Exam Comments Initial Comments: GENERAL: Patient is well-developed and well-nourished. Patient is nontoxic and well- hydrated and is in n mild o acute distress. ENT: Neck is soft and supple. No significant lymphadenopathy is noted. Oropharynx is clear. Moist mucous membranes. Neck has full range of motion without eliciting any pain. There is no thyroid enlargement and no masses were felt. EYES: The sclera were anicteric and conjunctiva were pink and moist. Extraocular movements were intact and pupils were equal round and reactive to light. Eyelids were unremarkable. PULMONARY: She has crackles bilateral lungs CARDIOVASCULAR: There is a regular rate and rhythm without any murmurs gallops or rubs. ABDOMEN: Soft and nontender with normal bowel sounds. SKIN: Skin is clear with no lesions or rashes and otherwise unremarkable. NEUROLOGIC: Patient is alert and oriented x3. Cranial nerves II through XII are grossly intact. Motor and sensory are also intact. Normal speech, volume and content. Symmetrical smile. MUSCULOSKELETAL: Normal extremities with adequate strength and full range of motion. No lower extremity swelling or edema. No calf tenderness. LYMPHATICS: No significant lymphadenopathy is noted PSYCHIATRIC: Normal psychiatric evaluation. Course Vital Signs 04/03/21 04/03/21 04/03/21 12:16 12:20 12:52 Temperature 102.4 F H Pulse Rate 75 78 Respiratory 20 20 17 Rate Blood Pressure 100/65 99/61 O2 Sat by Pulse 94 L 95 Oximetry 04/03/21 04/03/21 14:20 17:30 Temperature 98.8 F Pulse Rate 71 68 Respiratory 16 18 Rate Blood Pressure 99/68 100/66 O2 Sat by Pulse 95 95 Oximetry Medical Decision Making - Medical Decision Making Patient is positive for COVID. Chest x-ray shows possible pneumonitis. Patient qualifies for monoclonal antibodies she will receive them. Patient saturating 95% on room air and looks in no respiratory distress. - Lab Data Result diagrams: 04/03/21 12:06 04/03/21 12:06 Lab Results 04/03/21 04/03/21 04/03/21 Range/Units 12:06 12:06 12:06 WBC 6.7 (3.8-10.6) k/uL RBC 4.22 (3.80-5.40) m/uL Hgb 12.9 (11.4-16.0) gm/dL Hct 40.0 (34.0-46.0) % MCV 94.7 (80.0-100.0) fL MCH 30.5 (25.0-35.0) pg MCHC 32.3 (31.0-37.0) g/dL RDW 12.2 (11.5-15.5) % Plt Count 190 (150-450) k/uL MPV 8.3 Neutrophils % 81 % Lymphocytes % 11 % Monocytes % 6 % Eosinophils % 0 % Basophils % 0 % Neutrophils # 5.4 (1.3-7.7) k/uL Lymphocytes # 0.8 L (1.0-4.8) k/uL Monocytes # 0.4 (0-1.0) k/uL Eosinophils # 0.0 (0-0.7) k/uL Basophils # 0.0 (0-0.2) k/uL Sodium 137 (137-145) mmol/L Potassium 3.4 L (3.5-5.1) mmol/L Chloride 104 (98-107) mmol/L Carbon Dioxide 27 (22-30) mmol/L Anion Gap 6 mmol/L BUN 14 (7-17) mg/dL Creatinine 0.80 (0.52-1.04) mg/dL Est GFR (CKD-EPI)AfAm >90 (>60 ml/min/1.73 sqM) Est GFR (CKD-EPI)NonAf 78 (>60 ml/min/1.73 sqM) Glucose 136 H (74-99) mg/dL Calcium 8.3 L (8.4-10.2) mg/dL Total Bilirubin 0.5 (0.2-1.3) mg/dL AST 136 H (14-36) U/L ALT 34 (4-34) U/L Alkaline Phosphatase 80 (38-126) U/L Total Protein 5.6 L (6.3-8.2) g/dL Albumin 3.3 L (3.5-5.0) g/dL Coronavirus (PCR) Detected A (Not Detectd) Disposition Clinical Impression: COVID-19 Disposition: HOME SELF-CARE Condition: Good Additional Instructions: Patient should take Decadron as prescribed. Patient's take Motrin and Tylenol when necessary for fever. Patient should return if there is any difficulty breathing Prescriptions: Dexamethasone [Decadron] 6 mg PO DAILY #7 tablet Is patient prescribed a controlled substance at d/c from ED?: No Referrals: Loki Gomes MD [Primary Care Provider] - 1-2 days Time of Disposition: 14:44
[2021-04-03] MEDS ORDERED: IPRATROPIUM-ALBUTEROL 3 ML NEB INHALATION STA (12:11)
--- NOTE | 2021-04-03 12:49 | XR ---
EXAMINATION TYPE: XR chest 1V portable DATE OF EXAM: 04/03/2021 COMPARISON: 04/28/2020 HISTORY: Shortness of breath TECHNIQUE: Single frontal view of the chest is obtained. FINDINGS: Heart is enlarged and there is a coarsened interstitium. No pleural effusion or pneumothor ax. Postoperative change overlying the cervical spine. Diffuse osteopenia and arthropathy of the shou lders. IMPRESSION: 1. Coarsened interstitium correlate for chronic interstitial lung disease otherwise consider intersti tial pneumonitis or venous congestion.
[2021-04-03 13:17] LABS: Basophils % (A) 0 %; Eosinophils % (A) 0 %; HGB 12.9 gm/dL (11.4-16.0); Lymphocytes # (A) 0.8 k/uL (1.0-4.8); Lymphocytes % (A) 11 %; MCH 30.5 pg (25.0-35.0); MCHC 32.3 g/dL (31.0-37.0); MCV 94.7 fL (80.0-100.0); Mean Platelet Volume 8.3; Monocytes # (A) 0.4 k/uL (0-1.0); Monocytes % (A) 6 %; Neutrophils # (A) 5.4 k/uL (1.3-7.7); Neutrophils % (A) 81 %; Platelet Count 190 k/uL (150-450); RBC 4.22 m/uL (3.80-5.40); RDW 12.2 % (11.5-15.5); WBC 6.7 k/uL (3.8-10.6)
[2021-04-03 13:35] LABS: ALT 34 U/L (4-34); AST 136 U/L (14-36); African American GFR (CKD) >90 (>60 ml/min/1.73 sqM); Albumin 3.3 g/dL (3.5-5.0); Alkaline Phosphatase 80 U/L (38-126); Anion Gap 6 mmol/L; Blood Urea Nitrogen 14 mg/dL (7-17); Calcium 8.3 mg/dL (8.4-10.2); Carbon Dioxide 27 mmol/L (22-30); Chloride 104 mmol/L (98-107); Glucose 136 mg/dL (74-99); Non-African American GFR(CKD) 78 (>60 ml/min/1.73 sqM); Potassium 3.4 mmol/L (3.5-5.1); Sodium 137 mmol/L (137-145); Total Bilirubin 0.5 mg/dL (0.2-1.3); Total Protein 5.6 g/dL (6.3-8.2)
[2021-04-03] MEDS ORDERED: SODIUM CHLORIDE 0.9% 1,000 ML IV ONE (14:45)
[2021-04-03] MEDS ORDERED: SODIUM CHLORIDE 0.9% 500 ML 500 ML IV ONE (14:45)
[2021-04-03] MEDS ORDERED: CASIRIVIMAB/IMDEVIMAB (EUA) 1,200 MG in SODIUM CHLORIDE 0.9% 100 ML IVPB ONE (15:00)
[2021-04-03] MEDS ORDERED: SODIUM CHLORIDE 0.9% 50 ML IVPB ONE (15:30)
[2021-04-03 17:39] VITALS: BP 100/66; PULSE 68; RESP 18; TEMP 98.8
== END 2021-04-03 17:30 | disposition home or self-care (01) ==
LOC: EC 11:23
DX: U07.1 COVID-19 (principal); I48.91 Unspecified atrial fibrillation; I25.10 Atherosclerotic heart disease of native coronary artery without angina pectoris; I11.0 Hypertensive heart disease with heart failure; I50.9 Heart failure, unspecified; J44.9 Chronic obstructive pulmonary disease, unspecified; E11.9 Type 2 diabetes mellitus without complications; K21.9 Gastro-esophageal reflux disease without esophagitis; E78.5 Hyperlipidemia, unspecified; Z79.84 Long term (current) use of oral hypoglycemic drugs; Z79.01 Long term (current) use of anticoagulants; Z88.1 Allergy status to other antibiotic agents; Z88.5 Allergy status to narcotic agent; Z86.73 Personal history of transient ischemic attack (TIA), and cerebral infarction without residual deficits; Z90.710 Acquired absence of both cervix and uterus; Z87.440 Personal history of urinary (tract) infections; Z90.49 Acquired absence of other specified parts of digestive tract
CPT/HCPCS: 99285; 96365; 36415; 80053; 85025; 87635; 71045; Q0243

== ENCOUNTER 2021-04-05 11:57 | Inpatient (IN) | payer MEDICARE, OTHER ==
[2021-04-05] MEDS ORDERED: DEXAMETHASONE SOD PHOSPHATE 10 MG/ML 1 ML VIAL IVP STA (12:14)
[2021-04-05] MEDS ORDERED: ALBUTEROL HFA INHALER INHALATION STA (12:47)
--- NOTE | 2021-04-05 12:47 | ED ---
General Adult HPI - General Chief complaint: Shortness of Breath Stated complaint: Covid +,LALO Source: patient, EMS, RN notes reviewed, old records reviewed Mode of arrival: EMS Limitations: no limitations - History of Present Illness Initial comments: This is a 65-year-old female who was in the emergency department yesterday and discharged home after she was diagnosed with COVID. Patient states she comes in today because her difficulty breathing is worse and she feels much weaker. Patient states she is still coughing but she doesn't know she has a fever or not. Patient denies chest pain or palpitations. Patient denies abdominal pain patient denies nausea vomiting diarrhea. Patient denies any lightheadedness dizziness. Patient states her swelling in her legs his baseline. - Related Data Home Medications Medication Instructions Recorded Confirmed Atorvastatin [Lipitor] 10 mg PO HS 12/30/16 04/05/21 Metoprolol Tartrate [Lopressor] 12.5 mg PO BID 02/25/17 04/05/21 Oxybutynin Xl [Ditropan XL] 5 mg PO BID 02/25/17 04/05/21 Citalopram Hydrobromide [CeleXA] 40 mg PO DAILY 11/05/18 04/05/21 Gabapentin [Neurontin] 200 mg PO DAILY 05/19/19 04/05/21 metFORMIN HCL ER [Glucophage XR] 500 mg PO Q48H 05/19/19 04/05/21 Cyanocobalamin (Vitamin B-12) 1,000 mcg PO DAILY 04/24/20 04/05/21 [Vitamin B-12] LORazepam [Ativan] 1 mg PO HS PRN 04/24/20 04/05/21 Vit C/E/Zn/Coppr/Lutein/Zeaxan 1 cap PO DAILY 04/24/20 04/05/21 [Preservision Areds 2 Softgel] cloZAPine [Clozaril] 300 mg PO HS 04/24/20 04/05/21 Ascorbic Acid [Vitamin C] 500 mg PO BID 04/03/21 04/05/21 Benadryl [place] 2-0.1% 1 applic TOPICAL QID PRN 04/03/21 04/05/21 Furosemide [Lasix] 20 mg PO DAILY 04/03/21 04/05/21 Dexamethasone [Decadron] 6 mg PO DAILY 04/05/21 04/05/21 Hyoscyamine Sulfate [Hyoscyamine 0.125 mg SL Q8H PRN 04/05/21 04/05/21 Sulfate SL] Previous Rx's Medication Instructions Recorded Apixaban [Eliquis] 5 mg PO BID tab 01/15/17 Digoxin [Lanoxin] 125 mcg PO DAILY tab 01/15/17 Isosorbide Mononitrate ER [Imdur] 60 mg PO DAILY tab 03/01/17 Allergies Allergy/AdvReac Type Severity Reaction Status Date / Time bee venom protein (honey bee) Allergy Anaphylaxis Verified 04/05/21 13:09 lorazepam [From Ativan] Allergy Unknown Verified 04/05/21 13:09 acetaminophen [From [place]] AdvReac Confusion Verified 04/05/21 13:09 hydrocodone [From [place]] AdvReac Confusion Verified 04/05/21 13:09 Review of Systems ROS Statement: Those systems with pertinent positive or pertinent negative responses have been documented in the HPI. ROS Other: All systems not noted in ROS Statement are negative. Past Medical History Past Medical History: Atrial Fibrillation, Coronary Artery Disease (CAD), Cancer, Heart Failure, COPD, CVA/TIA, Diabetes Mellitus, Eye Disorder, GERD/Reflux, Hyperlipidemia, Hypertension Additional Past Medical History / Comment(s): NIDDM type II, neuropathy bilateral feet, bronchial asthma, home oxygen prn, obesity, occasional lower extremity edema, past L axillae cellulitis/abscess-lengthy heal, shingles/staph, R eye wet macular degeneration/ L eye dry macular degeneration, uterine cancer with hysterectomy, TIA, hiatal hernia, uterine cancer with hysterectomy, tardive dyskinesia r/t psych medication, migraines, sinus problems, paroxysmal atrial fibrillation, past urinary retention w/ past chronic mackenzie, UTIs. History of Any Multi-Drug Resistant Organisms: None Reported Past Surgical History: Adenoidectomy, Cholecystectomy, Ear Surgery, Heart Catheterization, Hysterectomy, Tonsillectomy Additional Past Surgical History / Comment(s): I & D L axillae, L eye surgery for lazy eye, bilateral cataract removal, bilateral myringotomy/tubes, colonoscopy, bronchoscopy, cervical surgery Past Anesthesia/Blood Transfusion Reactions: No Reported Reaction Past Psychological History: Anxiety, Depression, Schizoaffective Disorder Smoking Status: Never smoker Past Alcohol Use History: None Reported Past Drug Use History: None Reported - Past Family History Mother Family Medical History: Myocardial Infarction ([place]) Additional Family Medical History / Comment(s): Mother at 72 yrs. Father Family Medical History: Cancer Additional Family Medical History / Comment(s): Throat cancer; father at 72 yrs. Brother(s) Family Medical History: Cancer Additional Family Medical History / Comment(s): Liver cancer General Exam - General Exam Comments Initial Comments: GENERAL: Patient is well-developed and well-nourished. Patient is nontoxic and well- hydrated and is in mild distress. ENT: Neck is soft and supple. No significant lymphadenopathy is noted. Oropharynx is clear. Moist mucous membranes. Neck has full range of motion without eliciting any pain. EYES: The sclera were anicteric and conjunctiva were pink and moist. Extraocular movements were intact and pupils were equal round and reactive to light. Ey elids were unremarkable. PULMONARY: Patient has extra wheezing and diminished breath sounds throughout CARDIOVASCULAR: There is a regular rate and rhythm without any murmurs gallops or rubs. ABDOMEN: Soft and nontender with normal bowel sounds. SKIN: Skin is clear with no lesions or rashes and otherwise unremarkable. NEUROLOGIC: Patient is alert and oriented x3. Cranial nerves II through XII are grossly intact. Motor and sensory are also intact. Normal speech, volume and content. Symmetrical smile. MUSCULOSKELETAL: Normal extremities with adequate strength and full range of motion. No lower extremity swelling or edema. No calf tenderness. LYMPHATICS: No significant lymphadenopathy is noted PSYCHIATRIC: Normal psychiatric evaluation. Limitations: no limitations Course Vital Signs 04/05/21 04/05/21 12:05 12:11 Temperature 98.2 F Pulse Rate 83 Respiratory 18 18 Rate Blood Pressure 131/72 O2 Sat by Pulse 90 L Oximetry Medical Decision Making - Medical Decision Making EKG shows normal sinus rhythm at 79 bpm AL interval 134 QRSs 80 QT interval 384 QTC is 440. Patient's EKG shows some T-wave inversions inferiorly. Chest x-ray shows no acute abnormality. Patient continues to oxygenate 90% on room air. I spoke with Dr. Elizabeth agreed to admit the patient and the patient I wrote admitting orders. - Lab Data Result diagrams: 04/05/21 12:35 04/05/21 13:25 Lab Results 04/05/21 04/05/21 04/05/21 Range/Units 12:35 12:35 13:25 WBC 10.2 (3.8-10.6) k/uL RBC 4.41 (3.80-5.40) m/uL Hgb 13.4 (11.4-16.0) gm/dL Hct 41.1 (34.0-46.0) % MCV 93.2 (80.0-100.0) fL MCH 30.4 (25.0-35.0) pg MCHC 32.6 (31.0-37.0) g/dL RDW 12.3 (11.5-15.5) % Plt Count 185 (150-450) k/uL MPV 8.5 Neutrophils % 89 % Lymphocytes % 6 % Monocytes % 3 % Eosinophils % 1 % Basophils % 0 % Neutrophils # 9.1 H (1.3-7.7) k/uL Lymphocytes # 0.6 L (1.0-4.8) k/uL Monocytes # 0.3 (0-1.0) k/uL Eosinophils # 0.1 (0-0.7) k/uL Basophils # 0.0 (0-0.2) k/uL PT (9.0-12.0) sec INR (<1.2) APTT (22.0-30.0) sec Sodium 139 (137-145) mmol/L Potassium 3.6 (3.5-5.1) mmol/L Chloride 107 (98-107) mmol/L Carbon Dioxide 28 (22-30) mmol/L Anion Gap 4 mmol/L BUN 21 H (7-17) mg/dL Creatinine 0.72 (0.52-1.04) mg/dL Est GFR (CKD-EPI)AfAm >90 (>60 ml/min/1.73 sqM) Est GFR (CKD-EPI)NonAf 90 (>60 ml/min/1.73 sqM) Glucose 133 H (74-99) mg/dL Plasma Lactic Acid [place] (0.7-2.0) mmol/L Calcium 8.9 (8.4-10.2) mg/dL Magnesium 2.1 (1.6-2.3) mg/dL Total Bilirubin 0.4 (0.2-1.3) mg/dL AST 239 H (14-36) U/L ALT 59 H (4-34) U/L Alkaline Phosphatase 77 (38-126) U/L NT-Pro-B Natriuret Pep 314 pg/mL Total Protein 5.9 L (6.3-8.2) g/dL Albumin 3.4 L (3.5-5.0) g/dL 04/05/21 04/05/21 Range/Units 13:25 13:25 WBC (3.8-10.6) k/uL RBC (3.80-5.40) m/uL Hgb (11.4-16.0) gm/dL Hct (34.0-46.0) % MCV (80.0-100.0) fL MCH (25.0-35.0) pg MCHC (31.0-37.0) g/dL RDW (11.5-15.5) % Plt Count (150-450) k/uL MPV Neutrophils % % Lymphocytes % % Monocytes % % Eosinophils % % Basophils % % Neutrophils # (1.3-7.7) k/uL Lymphocytes # (1.0-4.8) k/uL Monocytes # (0-1.0) k/uL Eosinophils # (0-0.7) k/uL Basophils # (0-0.2) k/uL PT 10.4 (9.0-12.0) sec INR 1.0 (<1.2) APTT 26.8 (22.0-30.0) sec Sodium (137-145) mmol/L Potassium (3.5-5.1) mmol/L Chloride (98-107) mmol/L Carbon Dioxide (22-30) mmol/L Anion Gap mmol/L BUN (7-17) mg/dL Creatinine (0.52-1.04) mg/dL Est GFR (CKD-EPI)AfAm (>60 ml/min/1.73 sqM) Est GFR (CKD-EPI)NonAf (>60 ml/min/1.73 sqM) Glucose (74-99) mg/dL Plasma Lactic Acid [place] 1.2 (0.7-2.0) mmol/L Calcium (8.4-10.2) mg/dL Magnesium (1.6-2.3) mg/dL Total Bilirubin (0.2-1.3) mg/dL AST (14-36) U/L ALT (4-34) U/L Alkaline Phosphatase (38-126) U/L NT-Pro-B Natriuret Pep pg/mL Total Protein (6.3-8.2) g/dL Albumin (3.5-5.0) g/dL Disposition Clinical Impression: Acute exacerbation of chronic obstructive pulmonary disease, COVID Disposition: ADMITTED IP TO THIS HOSP Referrals: Loki Gomes MD [Primary Care Provider] - 1-2 days Time of Disposition: 14:00
[2021-04-05 12:53] LABS: Basophils % (A) 0 %; Eosinophils # (A) 0.1 k/uL (0-0.7); Eosinophils % (A) 1 %; HCT 41.1 % (34.0-46.0); HGB 13.4 gm/dL (11.4-16.0); Lymphocytes # (A) 0.6 k/uL (1.0-4.8); Lymphocytes % (A) 6 %; MCH 30.4 pg (25.0-35.0); MCHC 32.6 g/dL (31.0-37.0); MCV 93.2 fL (80.0-100.0); Mean Platelet Volume 8.5; Monocytes # (A) 0.3 k/uL (0-1.0); Monocytes % (A) 3 %; Neutrophils # (A) 9.1 k/uL (1.3-7.7); Neutrophils % (A) 89 %; Platelet Count 185 k/uL (150-450); RBC 4.41 m/uL (3.80-5.40); RDW 12.3 % (11.5-15.5); WBC 10.2 k/uL (3.8-10.6)
[2021-04-05 13:52] LABS: ALT 59 U/L (4-34); AST 239 U/L (14-36); African American GFR (CKD) >90 (>60 ml/min/1.73 sqM); Albumin 3.4 g/dL (3.5-5.0); Alkaline Phosphatase 77 U/L (38-126); Anion Gap 4 mmol/L; Blood Urea Nitrogen 21 mg/dL (7-17); Calcium 8.9 mg/dL (8.4-10.2); Carbon Dioxide 28 mmol/L (22-30); Chloride 107 mmol/L (98-107); Glucose 133 mg/dL (74-99); Magnesium 2.1 mg/dL (1.6-2.3); Non-African American GFR(CKD) 90 (>60 ml/min/1.73 sqM); Potassium 3.6 mmol/L (3.5-5.1); Sodium 139 mmol/L (137-145); Total Bilirubin 0.4 mg/dL (0.2-1.3); Total Protein 5.9 g/dL (6.3-8.2)
[2021-04-05 13:54] LABS: Partial Thromboplastin Time 26.8 sec (22.0-30.0); Prothrombin Time 10.4 sec (9.0-12.0)
[2021-04-05] MEDS ORDERED: methylPREDNISolone SOD SUCCI 125 MG/2 ML VIAL IV STA (14:01)
--- NOTE | 2021-04-05 15:27 | CT ---
EXAMINATION TYPE: CT chest angio for PE DATE OF EXAM: 04/05/2021 COMPARISON: 02/13/2019 HISTORY: Shortness of breath and cough CT DLP: 387.8 mGycm Automated exposure control for dose reduction was used. CONTRAST: CT Chest for pulmonary embolism performed with with IV Contrast, patient injected with 100 mL of Isov ue 370. FINDINGS: LUNGS: There is a small focal area of groundglass density in the left upper lobe which was not on the prior study. The infiltrate seen in the lung bases on the prior study have markedly improved in a sm all residual infiltrate persists in the left lower lobe. There is mild interstitial prominence in the right lower lobe. There is no pneumothorax or pleural effusion. The great vessels the chest are normal and there is no mediastinal, hilar or axillary adenopathy. The re are no filling defects within the pulmonary arterial circulation to suggest pulmonary embolus. The osseous structures are intact. Limited scanning through the upper abdomen reveals no gross abnormality. IMPRESSION: 1. No evidence of pulmonary embolism. 2. Small infiltrate in the left lower lobe significantly improved since the prior study dated 2018. R ight lower lobe infiltrate seen previously has resolved. 3. New small focal groundglass density in the left upper lobe. This could represent an acute inflamma tory process and clinical correlation follow-up to resolution is recommended.
--- NOTE | 2021-04-05 15:27 | XR ---
EXAMINATION TYPE: XR chest 2V DATE OF EXAM: 04/05/2021 COMPARISON: 04/03/2021 INDICATION: Difficulty breathing, Covid TECHNIQUE: Frontal and lateral views of the chest are obtained. FINDINGS: The heart size is normal. The pulmonary vasculature is normal. The lungs are clear. IMPRESSION: 1. No acute pulmonary process radiographically apparent. Follow-up can be performed as clinically ind icated..
[2021-04-05] MEDS ORDERED: ALBUTEROL HFA INHALER INHALATION SCH (16:00)
[2021-04-05] MEDS ORDERED: HYOSCYAMINE SULFATE 0.125 MG TAB PO PRN (16:44)
[2021-04-05] MEDS ORDERED: metFORMIN 500 MG TAB PO SCH (16:45)
[2021-04-05] MEDS ORDERED: MAG HYDROX/AL HYDROX/SIMETH 30 ML CUP PO PRN (16:47)
[2021-04-05] MEDS ORDERED: NALOXONE 0.4 MG/ML 1 ML VIAL IV PRN (16:47)
[2021-04-05] MEDS ORDERED: LACTULOSE 20 GM/30 ML CUP PO PRN (16:47)
[2021-04-05] MEDS ORDERED: MAGNESIUM HYDROXIDE 2,400 MG/10 ML CUP PO PRN (16:47)
[2021-04-05] MEDS: ALBUTEROL HFA INHALER INHALATION SCH ×3 (17:32→23:27)
--- NOTE | 2021-04-05 17:43 | P.HPIM ---
History of Present Illness H&P Date: 04/05/21 Chief Complaint: Congested cough fever History of presenting complaint: pleasant 65-year-old patient of visiting physician Dr. Gomes. Resident of [facility] . Does use a walker - baseline to get about. Chronic stable medical conditions include asthma diabetes mellitus type 2, hypertension, hyperlipidemia, hiatal hernia, peripheral neuropathy, schizoaffective disorder, GERD. Patient 4 days started off with cough shortness of breath. Fever chills. Headaches. Bodyaches. Poor appetite. Symptoms have been progressive. Patient given to the ER 2 days ago. Had a fever to 102.4. Pulse ox was 94% on room air. X-ray showed worse in gestation. Patient has received vaccination for COVID-19. Patient did come back positive for the same. Patient is asleep mon oclonal antibodies. Patient's symptoms progressed to get worse. Patient felt so weak she started to fall. Decided to come back in. Review of systems: GEN.: Tired, decreased appetite, fever or chills EYES: None HEENT: None NECK: None RESPIRATORY: Short of breath, wheezing CARDIOVASCULAR: None GASTROINTESTINAL: None GENITOURINARY: None MUSCULOSKELETAL: Joint pains LYMPHATICS: None HEMATOLOGICAL: None PSYCHIATRY: A bit forgetful NEUROLOGICAL: Uses a walker Past medical history to include: COVID-19 positive diagnosed on 04/03/2021. Persistent bronchial asthma, diabetes mellitus type 2, hypertension, hyperlipidemia, obesity, hiatal hernia, idiopathic peripheral neuropathy, GERD, schizoaffective disorder bipolar type, atrial fibrillation, macular degeneration, uterine cancer with hysterectomy, tardive dyskinesia, use a walker Social history: Lives at the [facility], does use a walker. Stopped drinking alcohol in 2006. Never smoked. Physical examination: VITAL SIGNS: 98.2, 83, 18, 131/72, 90% on room air upon presentation GENERAL: BMI 27.6, sitting up in bed, tired, short of breath congested cough EYES: Pupils equal. Conjunctiva normal. HEENT: External appearance of nose and ears normal, oral cavity grossly normal. NECK: JVD unable to assess; masses not palpable. HEART: First and second heart sounds are normal; no edema. LUNGS: Respiratory rate increased, decreased breath sounds. Coarse crackles, wheezing ABDOMEN: Soft, nontender, liver spleen not palpable, no masses palpable. PSYCH: Alert and oriented x3; mood and affect anxious. NEUROLOGICAL: Cranial nerves grossly intact; no facial asymmetry, power and sensation grossly intact. LYMPHATICS: No lymph nodes palpable in the axilla and neck INVESTIGATIONS, reviewed in the clinical context: White count 10.2 hemoglobin 13.4 platelets 185 sodium 139 potassium 3.6 creatinine 0.7 to AST 239 ALT 59 albumin 3.4 Troponin I: Less than 0.012 proBNP 314 EKG tracing personally reviewed by me-sinus rhythm. Rate 79. Nonspecific T- wave changes. Chest CTA: No PE. Infiltrates. Assessment and plan: -Acute COVID 19 pneumonitis, symptoms starting 4 days ago. Patient was vaccinated against COVID-19. Patient on April 03 did receive monoclonal antibody. IV steroids. Vitamin C vitamin D zinc. -Acute hypoxic respiratory failure with a pulse ox 90% on room air upon presentation 2 L of nasal cannula. -Acute exacerbation of Moderate persistent asthma, POA IV Solu-Medrol. Albuterol 4 puffs every 4. -Diabetes mellitus type 2, on oral hypoglycemic Sliding-scale insulin with coverage. -Essential Hypertension Lopressor 12.5 by mouth twice a day -Hyperlipidemia Lipitor 10 mg daily at bedtime -Diabetic peripheral neuropathy Neurontin 200 mg daily -GERD Tums when necessary -Paroxysmal atrial fibrillation currently sinus rhythm Lopressor 12.5 by mouth twice a day. Eliquis 5 mg twice a day -Schizoaffective disorder Clozaril 300 mg daily at bedtime Celexa 40 mg daily -Chronic urinary stress incontinence Ditropan XL 5 mg twice a day IV Solu-Medrol 40 every 8. Albuterol 4 puffs every 4. Mucinex. Resume home medications. Sliding scale insulin with coverage. Oxygen supplementation. Care was discussed with the patient. Questions answered. Given the complexity and severity of patient's condition expect the patient to be in the hospital at least for 2 overnights Past Medical History Past Medical History: Atrial Fibrillation, Coronary Artery Disease (CAD), Cancer, Heart Failure, COPD, CVA/TIA, Diabetes Mellitus, Eye Disorder, GERD/Ref lux, Hyperlipidemia, Hypertension Additional Past Medical History / Comment(s): NIDDM type II, neuropathy bilateral feet, bronchial asthma, home oxygen prn, obesity, occasional lower extremity edema, past L axillae cellulitis/abscess-lengthy heal, shingles/staph, R eye wet macular degeneration/ L eye dry macular degeneration, uterine cancer with hysterectomy, TIA, hiatal hernia, uterine cancer with hysterectomy, tardive dyskinesia r/t psych medication, migraines, sinus problems, paroxysmal atrial fibrillation, past urinary retention w/ past chronic mackenzie, UTIs. History of Any Multi-Drug Resistant Organisms: None Reported Past Surgical History: Adenoidectomy, Cholecystectomy, Ear Surgery, Heart Catheterization, Hysterectomy, Tonsillectomy Additional Past Surgical History / Comment(s): I & D L axillae, L eye surgery for lazy eye, bilateral cataract removal, bilateral myringotomy/tubes, co lonoscopy, bronchoscopy, cervical surgery Past Anesthesia/Blood Transfusion Reactions: No Reported Reaction Past Psychological History: Anxiety, Depression, Schizoaffective Disorder Additional Psychological History / Comment(s): Pt resides at [facility]. She uses a walker to ambulate. She gets to app by bus. She has a glucometer. She has oxygen which she wears prn. Smoking Status: Never smoker Past Alcohol Use History: None Reported Additional Past Alcohol Use History / Comment(s): Pt quit drinking in 2006. Past Drug Use History: None Reported - Past Family History Mother Family Medical History: Myocardial Infarction ([place]) Additional Family Medical History / Comment(s): Mother at 72 yrs. Father Family Medical History: Cancer Additional Family Medical History / Comment(s): Throat cancer; father at 72 yrs. Brother(s) Family Medical History: Cancer Additional Family Medical History / Comment(s): Liver cancer Medications and Allergies Home Medications Medication Instructions Recorded Confirmed Type Atorvastatin [Lipitor] 10 mg PO HS 12/30/16 04/05/21 History Apixaban [Eliquis] 5 mg PO BID tab 01/15/17 04/05/21 Rx Digoxin [Lanoxin] 125 mcg PO DAILY tab 01/15/17 04/05/21 Rx Metoprolol Tartrate [Lopressor] 12.5 mg PO BID 02/25/17 04/05/21 History Oxybutynin Xl [Ditropan XL] 5 mg PO BID 02/25/17 04/05/21 History Isosorbide Mononitrate ER [Imdur] 60 mg PO DAILY tab 03/01/17 04/05/21 Rx Citalopram Hydrobromide [CeleXA] 40 mg PO DAILY 11/05/18 04/05/21 History Gabapentin [Neurontin] 200 mg PO DAILY 05/19/19 04/05/21 History metFORMIN HCL ER [Glucophage XR] 500 mg PO Q48H 05/19/19 04/05/21 History Cyanocobalamin (Vitamin B-12) 1,000 mcg PO DAILY 04/24/20 04/05/21 History [Vitamin B-12] LORazepam [Ativan] 1 mg PO HS PRN 04/24/20 04/05/21 History Vit C/E/Zn/Coppr/Lutein/Zeaxan 1 cap PO DAILY 04/24/20 04/05/21 History [Preservision Areds 2 Softgel] cloZAPine [Clozaril] 300 mg PO HS 04/24/20 04/05/21 History Ascorbic Acid [Vitamin C] 500 mg PO BID 04/03/21 04/05/21 History Benadryl [place] 2-0.1% 1 applic TOPICAL QID PRN 04/03/21 04/05/21 History Furosemide [Lasix] 20 mg PO DAILY 04/03/21 04/05/21 History Dexamethasone [Decadron] 6 mg PO DAILY 04/05/21 04/05/21 History Hyoscyamine Sulfate [Hyoscyamine 0.125 mg SL Q8H PRN 04/05/21 04/05/21 History Sulfate SL] Allergies Allergy/AdvReac Type Severity Reaction Status Date / Time bee venom protein (honey bee) Allergy Anaphylaxis Verified 04/05/21 13:09 lorazepam [From Ativan] Allergy Unknown Verified 04/05/21 13:09 acetaminophen [From [place]] AdvReac Confusion Verified 04/05/21 13:09 hydrocodone [From [place]] AdvReac Confusion Verified 04/05/21 13:09 Physical Exam Vitals: Vital Signs Temp Pulse Pulse Resp BP BP Pulse Ox 04/05/21 15:30 98.2 F 80 16 108/69 94 L 04/05/21 14:23 84 16 129/78 94 L 04/05/21 14:19 80 18 108/69 95 04/05/21 12:11 18 04/05/21 12:05 98.2 F 83 18 131/72 90 L Intake and Output 04/05/21 04/05/21 04/05/21 06:59 14:59 22:59 Other: Weight 73.028 kg Results CBC & Chem 7: 04/05/21 12:35 04/05/21 13:25 Labs: Abnormal Lab Results - Last 24 Hours (Table) 04/05/21 04/05/21 Range/Units 12:35 13:25 Neutrophils # 9.1 H (1.3-7.7) k/uL Lymphocytes # 0.6 L (1.0-4.8) k/uL BUN 21 H (7-17) mg/dL Glucose 133 H (74-99) mg/dL AST 239 H (14-36) U/L ALT 59 H (4-34) U/L Total Protein 5.9 L (6.3-8.2) g/dL Albumin 3.4 L (3.5-5.0) g/dL Thrombosis Risk Factor Assmnt - Choose All That Apply Any of the Below Risk Factors Present?: Yes Each Factor Represents 1 point: Abnormal pulmonary function (COPD), Swollen legs (current) Other Risk Factors: Yes Each Risk Factor Represents 2 Points: Age 61-74 years Other congenital or acquired thrombophilia - If yes, enter type in comment: No Thrombosis Risk Factor Assessment Total Risk Factor Score: 4 Thrombosis Risk Factor Assessment Level: Moderate Risk
[2021-04-05] MEDS ORDERED: methylPREDNISolone SOD SUCCI 125 MG/2 ML VIAL IV SCH (18:00)
[2021-04-05] MEDS: INSULIN ASPART (NovoLOG) 100 UNIT/ML VIAL SQ SCH (21:20)
[2021-04-05] MEDS: CHOLECALCIFEROL 25 MCG (1000 IU) TABLET PO SCH (21:20)
[2021-04-05] MEDS: ZINC SULFATE 220 MG CAP PO SCH (21:21)
[2021-04-05] MEDS: methylPREDNISolone SOD SUCCI 40 MG/ML 1 ML VIAL IV SCH (21:22)
[2021-04-05] MEDS: guaiFENesin 600 MG TABLET.ER PO SCH ×2 (21:22→22:34)
[2021-04-05] MEDS: APIXABAN 5 MG TAB PO SCH (22:33)
[2021-04-05] MEDS: ACETAMINOPHEN TAB 325 MG TAB PO PRN (22:34)
[2021-04-05] MEDS: METOPROLOL TARTRATE 12.5 MG TAB PO SCH (22:34)
[2021-04-05] MEDS: ASCORBIC ACID 500 MG TAB PO SCH (22:34)
[2021-04-05] MEDS: cloZAPine 100 MG TAB PO SCH (22:35)
[2021-04-05] MEDS: OXYBUTYNIN XL 5 MG TAB.ER.24 PO SCH (22:35)
[2021-04-05] MEDS: ATORVASTATIN 10 MG TAB PO SCH (22:36)
[2021-04-05 22:54] LABS: Glucose,Whole Blood 164 mg/dL (75-99)
[2021-04-06] MEDS: methylPREDNISolone SOD SUCCI 40 MG/ML 1 ML VIAL IV SCH ×2 (00:21→08:15)
[2021-04-06] MEDS: ACETAMINOPHEN TAB 325 MG TAB PO PRN ×2 (04:34→21:32)
[2021-04-06] MEDS: ALBUTEROL HFA INHALER INHALATION SCH ×5 (05:58→20:02)
[2021-04-06 07:09] LABS: Glucose,Whole Blood 160 mg/dL (75-99)
[2021-04-06] MEDS: ISOSORBIDE MONONITRATE ER 60 MG TAB.ER.24H PO SCH (08:16)
[2021-04-06] MEDS: OXYBUTYNIN XL 5 MG TAB.ER.24 PO SCH ×2 (08:16→21:34)
[2021-04-06] MEDS: guaiFENesin 600 MG TABLET.ER PO SCH ×4 (08:16→21:32)
[2021-04-06] MEDS: INSULIN ASPART (NovoLOG) 100 UNIT/ML VIAL SQ SCH ×3 (08:16→17:10)
[2021-04-06] MEDS: VIT A,C & E-LUTEIN-MINERALS 1 EACH TAB PO SCH (08:16)
[2021-04-06] MEDS: CITALOPRAM HYDROBROMIDE 20 MG TAB PO SCH (08:16)
[2021-04-06] MEDS: ZINC SULFATE 220 MG CAP PO SCH (08:16)
[2021-04-06] MEDS: METOPROLOL TARTRATE 12.5 MG TAB PO SCH ×2 (08:16→21:33)
[2021-04-06] MEDS: metFORMIN 500 MG TAB PO SCH (08:17)
[2021-04-06] MEDS: GABAPENTIN 100 MG CAP PO SCH (08:17)
[2021-04-06] MEDS: APIXABAN 5 MG TAB PO SCH ×2 (08:17→21:34)
[2021-04-06] MEDS: ASCORBIC ACID 500 MG TAB PO SCH ×2 (08:17→21:33)
[2021-04-06] MEDS: DIGOXIN 125 MCG TAB PO SCH (08:17)
[2021-04-06] MEDS: CHOLECALCIFEROL 25 MCG (1000 IU) TABLET PO SCH (08:17)
[2021-04-06] MEDS: CYANOCOBALAMIN 500 MCG TAB PO SCH (08:17)
--- NOTE | 2021-04-06 11:52 | P.CNPUL ---
History of Present Illness Consult date: 04/06/21 Reason for consult: dyspnea, pneumonia History of present illness: 65-year-old female patient, lives in an [facility] home, already vaccinated with Mod ese 2 vaccines, has multiple medical problems and comorbidities an extensive psychiatric history and she is essentially residing at the [facility] home. The patient was in the hospital on 04/03/2021 and at that time she was diagnosed having COVID 19 related infection and based on her comorbidities, the patient was given monoclonal antibodies and the patient was discharged. She came back today hospital because of cough and shortness of breath and fever. Her CT angiogram was completed and there is no evidence of any pulmonary embolism. Limited groundglass changes bilaterally. D-dimer is at 1.4 and her CRP level is at 5.2. LFTs are mildly elevated consistent with COVID 19 with an AST of 239, A LT of 59, the electrolytes are normal, normal renal function, white cell count is at 10.2 with a hemoglobin of 13.4. She is currently on oxygen at 4 L with a pulse ox of 97% and home O2 at 2 L which is her baseline. Note that the patient has been on Eliquis on long-term basis regarding chronic atrial fibrillation. Review of Systems Constitutional: Reports fatigue, Reports lethargy, Reports poor appetite, Reports weakness Eyes: denies blurred vision, denies bulging eye, denies decreased vision Ears: deny: decreased hearing, ear discharge, earache, tinnitus Ears, nose, mouth and throat: Reports as per HPI Cardiovascular: Reports decreased exercise tolerance, Reports dyspnea on exertion Respiratory: Reports cough, Reports cough with sputum, Reports dyspnea Gastrointestinal: Denies abdominal pain, Denies diarrhea, Denies nausea, Denies vomiting Genitourinary: Reports as per HPI Musculoskeletal: Reports as per HPI Musculoskeletal: absent: ankle pain, ankle stiffness, ankle swelling Integumentary: Reports as per HPI Neurological: Reports as per HPI Psychiatric: Reports as per HPI Endocrine: Reports as per HPI Hematologic/Lymphatic: Reports as per HPI Allergic/Immunologic: Reports as per HPI Past Medical History Past Medical History: Atrial Fibrillation, Coronary Artery Disease (CAD), Cancer, Heart Failure, COPD, CVA/TIA, Diabetes Mellitus, Eye Disorder, GERD/Reflux, Hyperlipidemia, Hypertension Additional Past Medical History / Comment(s): NIDDM type II, neuropathy bila teral feet, bronchial asthma, home oxygen prn, obesity, occasional lower extremity edema, past L axillae cellulitis/abscess-lengthy heal, shingles/staph, R eye wet macular degeneration/ L eye dry macular degeneration, uterine cancer with hysterectomy, TIA, hiatal hernia, uterine cancer with hysterectomy, tardive dyskinesia r/t psych medication, migraines, sinus problems, paroxysmal atrial fibrillation, past urinary retention w/ past chronic mackenzie, UTIs. History of Any Multi-Drug Resistant Organisms: None Reported Past Surgical History: Adenoidectomy, Cholecystectomy, Ear Surgery, Heart Catheterization, Hysterectomy, Tonsillectomy Additional Past Surgical History / Comment(s): I & D L axillae, L eye surgery for lazy eye, bilateral cataract removal, bilateral myringotomy/tubes, colonoscopy, bronchoscopy, cervical surgery Past Anesthesia/Blood Transfusion Reactions: No Reported Reaction Past Psychological History: Anxiety, Depression, Schizoaffective Disorder Additional Psychological History / Comment(s): Pt resides at [facility]. She uses a walker to ambulate. She gets to [facility] by bus. She has a glucometer. She has oxygen which she wears prn. Smoking Status: Never smoker Past Alcohol Use History: None Reported Additional Past Alcohol Use History / Comment(s): Pt quit drinking in 2006. Past Drug Use History: None Reported - Past Family History Mother Family Medical History: Myocardial Infarction ([place]) Additional Family Medical History / Comment(s): Mother at 72 yrs. Father Family Medical History: Cancer Additional Family Medical History / Comment(s): Throat cancer; father at 72 yrs. Brother(s) Family Medical History: Cancer Additional Family Medical History / Comment(s): Liver cancer Medications and Allergies Home Medications Medication Instructions Recorded Confirmed Type Atorvastatin [Lipitor] 10 mg PO HS 12/30/16 04/05/21 History Apixaban [Eliquis] 5 mg PO BID tab 01/15/17 04/05/21 Rx Digoxin [Lanoxin] 125 mcg PO DAILY tab 01/15/17 04/05/21 Rx Metoprolol Tartrate [Lopressor] 12.5 mg PO BID 02/25/17 04/05/21 History Oxybutynin Xl [Ditropan XL] 5 mg PO BID 02/25/17 04/05/21 History Isosorbide Mononitrate ER [Imdur] 60 mg PO DAILY tab 03/01/17 04/05/21 Rx Citalopram Hydrobromide [CeleXA] 40 mg PO DAILY 11/05/18 04/05/21 History Gabapentin [Neurontin] 200 mg PO DAILY 05/19/19 04/05/21 History metFORMIN HCL ER [Glucophage XR] 500 mg PO Q48H 05/19/19 04/05/21 History Cyanocobalamin (Vitamin B-12) 1,000 mcg PO DAILY 04/24/20 04/05/21 History [Vitamin B-12] LORazepam [Ativan] 1 mg PO HS PRN 04/24/20 04/05/21 History Vit C/E/Zn/Coppr/Lutein/Zeaxan 1 cap PO DAILY 04/24/20 04/05/21 History [Preservision Areds 2 Softgel] cloZAPine [Clozaril] 300 mg PO HS 04/24/20 04/05/21 History Ascorbic Acid [Vitamin C] 500 mg PO BID 04/03/21 04/05/21 History Benadryl [place] 2-0.1% 1 applic TOPICAL QID PRN 04/03/21 04/05/21 History Furosemide [Lasix] 20 mg PO DAILY 04/03/21 04/05/21 History Dexamethasone [Decadron] 6 mg PO DAILY 04/05/21 04/05/21 History Hyoscyamine Sulfate [Hyoscyamine 0.125 mg SL Q8H PRN 04/05/21 04/05/21 History Sulfate SL] Allergies Allergy/AdvReac Type Severity Reaction Status Date / Time bee venom protein (honey bee) Allergy Anaphylaxis Verified 04/05/21 13:09 lorazepam [From Ativan] Allergy Unknown Verified 04/05/21 13:09 acetaminophen [From [place]] AdvReac Confusion Verified 04/05/21 13:09 hydrocodone [From [place]] AdvReac Confusion Verified 04/05/21 13:09 Physical Exam Vitals: Vital Signs Temp Pulse Pulse Resp BP BP Pulse Ox 04/06/21 10:19 97.8 F 72 18 110/73 97 04/06/21 06:42 97.7 F 80 19 116/73 93 L 04/06/21 02:33 97.8 F 68 19 119/75 96 04/05/21 22:31 97.7 F 79 18 130/81 95 04/05/21 20:44 18 04/05/21 18:39 23 04/05/21 15:30 98.2 F 80 16 108/69 94 L 04/05/21 14:23 84 16 129/78 94 L 04/05/21 14:19 80 18 108/69 95 04/05/21 12:11 18 04/05/21 12:05 98.2 F 83 18 131/72 90 L Intake and Output 04/05/21 04/06/21 04/06/21 22:59 06:59 14:59 Other: # Voids 1 # Bowel Movements 1 3 General: non toxic, in mild respirator distress, appears at stated age, obese, currently on 4 L of oxygen by nasal cannula Derm: no unusual rashes/lesions no unusual ecchymoses, warm, dry Head: Head exam was generally normal. There was no scleral icterus or corneal arcus. Mucous membranes were moist. Eyes: Neck was supple and without jugular venous distension, thyromegaly, or carotid bruits. Carotids were easily palpable bilaterally. There was no adenopathy. Mouth: no lip lesion, mucus membranes moist Cardiovascular: S1S2 reg, mildly tachycardic, no murmur, positive posterior tibial pulse bilateral, 1+ sukhjinder LE pitting edema, capillary refill less than 2 seconds Lungs: Bilateral wheezing w/ coarse breath sounds diffusely, no accessory muscle use and there are coarse crackles in lung bases mainly on the right lung base. Abdominal: soft, nontender to palpation, no guarding, no appreciable organomegaly, normal bowel sounds Ext: no gross muscle atrophy, muscle strength 5 out of 5 in all 4 extremities grossly, no contractures, Neuro: CN II-XI grossly intact, light touch intact all 4 extremities, finger to nose within normal limits, Psych: Alert, oriented, appropriate affect Examination of the skin revealed no evidence of significant rashes, suspicious appearing nevi or other concerning lesions. Results - Laboratory Findings CBC and BMP: 04/05/21 12:35 04/05/21 13:25 PT/INR, D-dimer PT 10.4 sec (9.0-12.0) 04/05/21 13:25 INR 1.0 (<1.2) 04/05/21 13:25 D-Dimer 1.40 mg/L FEU (<0.60) H 04/06/21 09:09 Abnormal lab findings: Abnormal Labs 04/05/21 04/05/21 04/05/21 12:35 13:25 22:44 Neutrophils # 9.1 H Lymphocytes # 0.6 L D-Dimer BUN 21 H Glucose 133 H POC Glucose (mg/dL) 164 H AST 239 H ALT 59 H C-Reactive Protein Total Protein 5.9 L Albumin 3.4 L 04/06/21 04/06/21 04/06/21 07:06 09:09 09:09 Neutrophils # Lymphocytes # D-Dimer 1.40 H BUN Glucose POC Glucose (mg/dL) 160 H AST ALT C-Reactive Protein 5.2 H Total Protein Albumin - Diagnostic Findings Chest x-ray: image reviewed CT scan - chest: image reviewed Assessment and Plan Plan: 1 acute COVID 19 related infection and pneumonia with Limited groundglass changes bilaterally. Note that this patient has mild disease and she has been vaccinated with COVID 19 messenger RNA and furthermore approximately 3 days ago she came into the emergency department and the patient received her monoclonal antibodies on 04/03/2021. At this point in time, she has mild elevation of the d-dimer, oxygenation is slightly worse above and beyond her baseline where the patient was on 2 L at home and currently she is on 4 L. 2 mediastinal lymph node calcification with questionable bronchiolith adjacent to the right lower lobe bronchus, a marker of a previous granulomatous infection of the lung. 3 the patient of the inflammatory markers, awaiting LDH level 4 acute on top of chronic hypoxic respiratory failure and shortness of breath secondary to above 5 chronic bronchial asthma with some exacerbation secondary to above 6 history paroxysmal atrial fibrillation currently in sinus rhythm maintained on long-term and coagulation with Eliquis 7 history of schizophrenia 8 hypertension 9 diabetes mellitus 10 hyperlipidemia 11 chronic lower extremity edema 12 previous history of left axillary abscess/cellulitis with MSSA post I&D 13 history of shingles 14 macular degeneration 15 history of coronary artery disease with 50% lesion in the LAD 16 peripheral neuropathy 17 chronic anxiety 18 chronic migraines. 19 peripheral neuropathy Plan The patient will be treated with Decadron 6 milligrams by mouth on a daily basis Multivitamin regimen for COVID 19 Continue anticoagulation with Eliquis Continue home medications We'll continue to follow
[2021-04-06 11:57] LABS: Glucose,Whole Blood 161 mg/dL (75-99)
--- NOTE | 2021-04-06 15:24 | P.PN ---
Progress Note - Text Progress Note Date: 04/06/21 Chief Complaint: Congested cough fever History of presenting complaint: pleasant 65-year-old patient of visiting physician Dr. Gomes. Resident of [facility] . Does use a walker - baseline to get about. Chronic stable medical conditions include asthma diabetes mellitus type 2, hypertension, hyperlipidemia, hiatal hernia, peripheral neuropathy, schizoaffective disorder, GERD. Patient 4 days started off with cough shortness of breath. Fever chills. Headaches. Bodyaches. Poor appetite. Symptoms have been progressive. Patient given to the ER 2 days ago. Had a fever to 102.4. Pulse ox was 94% on room air. X-ray showed worse in gestation. Patient has received vaccination for COVID-19. come back positive for the same. Received monoclonal antibodies. symptoms progressed to get worse. Patient felt so weak she started to fall. Decided to come back in. Admitted with COVID 19 pneumonitis, acute hypoxic respiratory failure, acute asthma exacerbation. Patient is already on eliquis. Placed on IV Solu-Medrol. April 06: Sitting up in a chair. Some improvement in breathing. Eating some. Cough. Tired. Review of systems: Was done for constitutional, cardiovascular, GI, pulmonary. relevant finding as above Active Medications Acetaminophen (Acetaminophen Tab 325 Mg Tab) 650 mg PO Q6HR PRN PRN Reason: Mild Pain or Fever > 100.5 Last Admin: 04/06/21 04:34 Dose: 650 mg Documented by: Al Hydroxide/Mg Hydroxide (Mag Hydrox/Al Hydrox/Simeth 30 Ml Cup) 15 ml PO Q6HR PRN PRN Reason: Indigestion Albuterol Sulfate (Albuterol Hfa Inhaler) 4 puff INHALATION RT-Q4H [facility] Last Admin: 04/06/21 12:08 Dose: 4 puff Documented by: Apixaban (Apixaban 5 Mg Tab) 5 mg PO BID [facility]; Protocol Last Admin: 04/06/21 08:17 Dose: 5 mg Documented by: Ascorbic Acid (Ascorbic Acid 500 Mg Tab) 500 mg PO BID [facility] Last Admin: 04/06/21 08:17 Dose: 500 mg Documented by: Atorvastatin Calcium (Atorvastatin 10 Mg Tab) 10 mg PO [facility] Last Admin: 04/05/21 22:36 Dose: 10 mg Documented by: Calcium Carbonate/Glycine (Calcium Carbonate 500 Mg Chewable) 1,000 mg PO Q4HR PRN PRN Reason: Dyspepsia Cholecalciferol (Cholecalciferol 25 Mcg (1000 Iu) Tablet) 100 mcg PO DAILY [facility] Last Admin: 04/06/21 08:17 Dose: 100 mcg Documented by: Citalopram Hydrobromide (Citalopram Hydrobromide 20 Mg Tab) 40 mg PO DAILY [facility] Last Admin: 04/06/21 08:16 Dose: 40 mg Documented by: Clozapine (Clozapine 100 Mg Tab) 300 mg PO HS [facility] Stop: 04/07/21 21:01 Last Admin: 04/05/21 22:35 Dose: 300 mg Documented by: Cyanocobalamin (Cyanocobalamin 500 Mcg Tab) 1,000 mcg PO DAILY [facility] Last Admin: 04/06/21 08:17 Dose: 1,000 mcg Documented by: Dexamethasone (Dexamethasone 2 Mg Tab) 6 mg PO DAILY [facility] Digoxin (Digoxin 125 Mcg Tab) 125 mcg PO DAILY [facility] Last Admin: 04/06/21 08:17 Dose: 125 mcg Documented by: Gabapentin (Gabapentin 100 Mg Cap) 200 mg PO DAILY [facility] Last Admin: 04/06/21 08:17 Dose: 200 mg Documented by: Guaifenesin (Guaifenesin 600 Mg Tablet.Er) 600 mg PO QID [facility] Last Admin: 04/06/21 12:37 Dose: 600 mg Documented by: Hyoscyamine (Hyoscyamine Sulfate 0.125 Mg Tab) 0.125 mg PO Q8H PRN PRN Reason: DROOLING Insulin Aspart (Insulin Aspart (Novolog) 100 Unit/Ml Vial) 0 unit SQ AC-TID [facility]; Protocol Last Admin: 04/06/21 12:36 Dose: 3 unit Documented by: Isosorbide Mononitrate (Isosorbide Mononitrate Er 60 Mg Tab.Er.24h) 60 mg PO DAILY [facility] Last Admin: 04/06/21 08:16 Dose: 60 mg Documented by: Lactulose (Lactulose 20 Gm/30 Ml Cup) 20 gm PO DAILY PRN PRN Reason: Constipation Lorazepam (Lorazepam 1 Mg Tab) 1 mg PO HS PRN PRN Reason: Insomnia Magnesium Hydroxide (Magnesium Hydroxide 2,400 Mg/10 Ml Cup) 2,400 mg PO DAILY PRN PRN Reason: Constipation Melatonin (Melatonin 3 Mg Tablet) 3 mg PO HS PRN PRN Reason: Insomnia Metformin HCl (Metformin 500 Mg Tab) 500 mg PO Q48H [facility] Last Admin: 04/06/21 08:17 Dose: 500 mg Documented by: Metoprolol Tartrate (Metoprolol Tartrate 12.5 Mg Tab) 12.5 mg PO BID [facility] Last Admin: 04/06/21 08:16 Dose: 12.5 mg Documented by: Multivitamins/Minerals (Vit A,C & B-Raffld-Atnmmvwa 1 Each Tab) 1 each PO DAILY [facility] Last Admin: 04/06/21 08:16 Dose: 1 each Documented by: Naloxone HCl (Naloxone 0.4 Mg/Ml 1 Ml Vial) 0.2 mg IV Q2M PRN PRN Reason: Opioid Reversal Ondansetron HCl (Ondansetron 4 Mg/2 Ml Vial) 4 mg IVP Q8HR PRN PRN Reason: Nausea And Vomiting Oxybutynin Chloride (Oxybutynin Xl 5 Mg Tab.Er.24) 5 mg PO BID [facility] Last Admin: 04/06/21 08:16 Dose: 5 mg Documented by: Zinc Sulfate (Zinc Sulfate 220 Mg Cap) 220 mg PO DAILY [facility] Last Admin: 04/06/21 08:16 Dose: 220 mg Documented by: Past medical history to include: COVID-19 positive diagnosed on 04/03/2021. Persistent bronchial asthma, diabetes mellitus type 2, hypertension, hyperlipidemia, obesity, hiatal hernia, idiopathic peripheral neuropathy, GERD, schizoaffective disorder bipolar type, atrial fibrillation, macular degeneration, uterine cancer with hysterectomy, tardive dyskinesia, use a walker Social history: Lives at the [facility], does use a walker. Stopped drinking alcohol in 2006. Never smoked. Physical examination: VITAL SIGNS: 37.9, 89, 17, 140s over 68, 90% on 4 L GENERAL: Sitting up in a chair, some shortness of breath LUNGS: Respiratory rate increased, PSYCH: Alert and oriented x3; mood and affect anxious. NEUROLOGICAL: Cranial nerves grossly intact; no facial asymmetry, moving all 4 limbs Breast exam per pulmonary nursing INVESTIGATIONS, reviewed in the clinical context: April 06: D-dimer 1.4 CRP 5.2 White count 10.2 hemoglobin 13.4 platelets 185 sodium 139 potassium 3.6 creatinine 0.7 to AST 239 ALT 59 albumin 3.4 Troponin I: Less than 0.012 proBNP 314 EKG tracing personally reviewed by me-sinus rhythm. Rate 79. Nonspecific T- wave changes. Chest CTA: No PE. Infiltrates. Assessment and plan: -Acute COVID 19 pneumonitis, symptoms starting 4 days ago. Received vaccine: COVID-19. April 03 did receive monoclonal antibody.: Slow to respond IV steroids. Vitamin C vitamin D zinc. -Acute hypoxic respiratory failure with a pulse ox 90% on room air upon presentation: Slow to respond 2 L of nasal cannula. -Acute exacerbation of Moderate persistent asthma, POA IV Solu-Medrol. Albuterol 4 puffs every 4. -Diabetes mellitus type 2, on oral hypoglycemic Sliding-scale insulin with coverage. -Essential Hypertension Lopressor 12.5 by mouth twice a day -Hyperlipidemia Lipitor 10 mg daily at bedtime -Diabetic peripheral neuropathy Neurontin 200 mg daily -GERD Tums when necessary -Paroxysmal atrial fibrillation currently sinus rhythm Lopressor 12.5 by mouth twice a day. Eliquis 5 mg twice a day -Schizoaffective disorder Clozaril 300 mg daily at bedtime Celexa 40 mg daily -Chronic urinary stress incontinence Ditropan XL 5 mg twice a day IV Solu-Medrol 40 every 8. Albuterol 4 puffs every 4. Mucinex. Oxygen supplementation. Care was discussed with the patient. Incentive spirometry.
[2021-04-06 16:23] LABS: Glucose,Whole Blood 131 mg/dL (75-99)
[2021-04-06 21:10] LABS: Glucose,Whole Blood 175 mg/dL (75-99)
[2021-04-06] MEDS: cloZAPine 100 MG TAB PO SCH (21:33)
[2021-04-06] MEDS: ATORVASTATIN 10 MG TAB PO SCH (21:34)
[2021-04-07] MEDS ORDERED: ALBUTEROL HFA INHALER INHALATION ONE
[2021-04-07] MEDS: ALBUTEROL HFA INHALER INHALATION SCH ×6 (00:58→21:27)
[2021-04-07] MEDS: LORazepam 1 MG TAB PO PRN ×2 (02:07→19:48)
[2021-04-07 06:49] LABS: Glucose,Whole Blood 161 mg/dL (75-99)
[2021-04-07] MEDS: INSULIN ASPART (NovoLOG) 100 UNIT/ML VIAL SQ SCH ×3 (07:39→18:16)
[2021-04-07] MEDS: APIXABAN 5 MG TAB PO SCH ×2 (07:40→20:07)
[2021-04-07] MEDS: CHOLECALCIFEROL 25 MCG (1000 IU) TABLET PO SCH (07:40)
[2021-04-07] MEDS: CITALOPRAM HYDROBROMIDE 20 MG TAB PO SCH (07:40)
[2021-04-07] MEDS: ASCORBIC ACID 500 MG TAB PO SCH ×2 (07:40→20:07)
[2021-04-07] MEDS: METOPROLOL TARTRATE 12.5 MG TAB PO SCH ×2 (07:40→20:07)
[2021-04-07] MEDS: CYANOCOBALAMIN 500 MCG TAB PO SCH (07:41)
[2021-04-07] MEDS: ISOSORBIDE MONONITRATE ER 60 MG TAB.ER.24H PO SCH (07:41)
[2021-04-07] MEDS: ZINC SULFATE 220 MG CAP PO SCH (07:41)
[2021-04-07] MEDS: guaiFENesin 600 MG TABLET.ER PO SCH ×4 (07:41→21:08)
[2021-04-07] MEDS: OXYBUTYNIN XL 5 MG TAB.ER.24 PO SCH ×2 (07:41→20:07)
[2021-04-07] MEDS: GABAPENTIN 100 MG CAP PO SCH (07:41)
[2021-04-07] MEDS: VIT A,C & E-LUTEIN-MINERALS 1 EACH TAB PO SCH (07:41)
[2021-04-07] MEDS: DIGOXIN 125 MCG TAB PO SCH (07:41)
[2021-04-07] MEDS ORDERED: dexAMETHasone 2 MG TAB PO SCH (09:00)
[2021-04-07 11:35] LABS: Glucose,Whole Blood 115 mg/dL (75-99)
--- NOTE | 2021-04-07 16:50 | P.PN ---
Progress Note - Text Progress Note Date: 04/07/21 Chief Complaint: Congested cough fever History of presenting complaint: pleasant 65-year-old patient of visiting physician Dr. Gomes. Resident of [facility] . Does use a walker - baseline to get about. Chronic stable medical conditions include asthma diabetes mellitus type 2, hypertension, hyperlipidemia, hiatal hernia, peripheral neuropathy, schizoaffective disorder, GERD. Patient 4 days started off with cough shortness of breath. Fever chills. Headaches. Bodyaches. Poor appetite. Symptoms have been progressive. Patient given to the ER 2 days ago. Had a fever to 102.4. Pulse ox was 94% on room air. X-ray showed worse in gestation. Patient has received vaccination for COVID-19. come back positive for the same. Received monoclonal antibodies. symptoms progressed to get worse. Patient felt so weak she started to fall. Decided to come back in. Admitted with COVID 19 pneumonitis, acute hypoxic respiratory failure, acute asthma exacerbation. Patient is already on eliquis. Placed on IV Solu-Medrol. April 06: Sitting up in a chair. Some improvement in breathing. Eating some. Cough. Tired. April 07: Sitting up in a chair. Oral intake improved. Some shortness of breath. On 4 L of nasal cannula. IV Solu-Medrol increased by pulmonary. Review of systems: Was done for constitutional, cardiovascular, GI, pulmonary. relevant finding as above Active Medications Acetaminophen (Acetaminophen Tab 325 Mg Tab) 650 mg PO Q6HR PRN PRN Reason: Mild Pain or Fever > 100.5 Last Admin: 04/06/21 21:32 Dose: 650 mg Documented by: Al Hydroxide/Mg Hydroxide (Mag Hydrox/Al Hydrox/Simeth 30 Ml Cup) 15 ml PO Q6HR PRN PRN Reason: Indigestion Albuterol Sulfate (Albuterol Hfa Inhaler) 4 puff INHALATION RT-Q4H [facility] Last Admin: 04/07/21 12:09 Dose: 4 puff Documented by: Apixaban (Apixaban 5 Mg Tab) 5 mg PO BID [facility]; Protocol Last Admin: 04/07/21 07:40 Dose: 5 mg Documented by: Ascorbic Acid (Ascorbic Acid 500 Mg Tab) 500 mg PO BID [facility] Last Admin: 04/07/21 07:40 Dose: 500 mg Documented by: Atorvastatin Calcium (Atorvastatin 10 Mg Tab) 10 mg PO [facility] Last Admin: 04/06/21 21:34 Dose: 10 mg Documented by: Budesonide/Formoterol Fumarate (Symbicort 160-4.5 Mcg Inhaler) 2 puff INH ALATION RT-BID [facility] Calcium Carbonate/Glycine (Calcium Carbonate 500 Mg Chewable) 1,000 mg PO Q4HR PRN PRN Reason: Dyspepsia Cholecalciferol (Cholecalciferol 25 Mcg (1000 Iu) Tablet) 100 mcg PO DAILY [facility] Last Admin: 04/07/21 07:40 Dose: 100 mcg Documented by: Citalopram Hydrobromide (Citalopram Hydrobromide 20 Mg Tab) 40 mg PO DAILY [facility] Last Admin: 04/07/21 07:40 Dose: 40 mg Documented by: Clozapine (Clozapine 100 Mg Tab) 300 mg PO [facility] Stop: 04/09/21 21:01 Last Admin: 04/06/21 21:33 Dose: 300 mg Documented by: Cyanocobalamin (Cyanocobalamin 500 Mcg Tab) 1,000 mcg PO DAILY [facility] Last Admin: 04/07/21 07:41 Dose: 1,000 mcg Documented by: Digoxin (Digoxin 125 Mcg Tab) 125 mcg PO DAILY [facility] Last Admin: 04/07/21 07:41 Dose: 125 mcg Documented by: Gabapentin (Gabapentin 100 Mg Cap) 200 mg PO DAILY [facility] Last Admin: 04/07/21 07:41 Dose: 200 mg Documented by: Guaifenesin (Guaifenesin 600 Mg Tablet.Er) 600 mg PO QID [facility] Last Admin: 04/07/21 12:21 Dose: 600 mg Documented by: Hyoscyamine (Hyoscyamine Sulfate 0.125 Mg Tab) 0.125 mg PO Q8H PRN PRN Reason: DROOLING Insulin Aspart (Insulin Aspart (Novolog) 100 Unit/Ml Vial) 0 unit SQ AC-TID [facility]; Protocol Last Admin: 04/07/21 12:07 Dose: Not Given Documented by: Isosorbide Mononitrate (Isosorbide Mononitrate Er 60 Mg Tab.Er.24h) 60 mg PO DAILY [facility] Last Admin: 04/07/21 07:41 Dose: 60 mg Documented by: Lactulose (Lactulose 20 Gm/30 Ml Cup) 20 gm PO DAILY PRN PRN Reason: Constipation Lorazepam (Lorazepam 1 Mg Tab) 1 mg PO HS PRN PRN Reason: Insomnia Last Admin: 04/07/21 02:07 Dose: 1 mg Documented by: Magnesium Hydroxide (Magnesium Hydroxide 2,400 Mg/10 Ml Cup) 2,400 mg PO DAILY PRN PRN Reason: Constipation Melatonin (Melatonin 3 Mg Tablet) 3 mg PO HS PRN PRN Reason: Insomnia Metformin HCl (Metformin 500 Mg Tab) 500 mg PO Q48H [facility] Last Admin: 04/06/21 08:17 Dose: 500 mg Documented by: Methylprednisolone Sodium Succinate (Methylprednisolone Sod Succi 125 Mg/2 Ml Vial) 60 mg IV Q6HR [facility] Metoprolol Tartrate (Metoprolol Tartrate 12.5 Mg Tab) 12.5 mg PO BID [facility] Last Admin: 04/07/21 07:40 Dose: 12.5 mg Documented by: Multivitamins/Minerals (Vit A,C & W-Hnxzjk-Fpqlxtvk 1 Each Tab) 1 each PO DAILY [facility] Last Admin: 04/07/21 07:41 Dose: 1 each Documented by: Naloxone HCl (Naloxone 0.4 Mg/Ml 1 Ml Vial) 0.2 mg IV Q2M PRN PRN Reason: Opioid Reversal Ondansetron HCl (Ondansetron 4 Mg/2 Ml Vial) 4 mg IVP Q8HR PRN PRN Reason: Nausea And Vomiting Oxybutynin Chloride (Oxybutynin Xl 5 Mg Tab.Er.24) 5 mg PO BID [facility] Last Admin: 04/07/21 07:41 Dose: 5 mg Documented by: Zinc Sulfate (Zinc Sulfate 220 Mg Cap) 220 mg PO DAILY [facility] Last Admin: 04/07/21 07:41 Dose: 220 mg Documented by: Past medical history to include: COVID-19 positive diagnosed on 04/03/2021. Persistent bronchial asthma, diabetes mellitus type 2, hypertension, hyperlipidemia, obesity, hiatal hernia, idiopathic peripheral neuropathy, GERD, schizoaffective disorder bipolar type, atrial fibrillation, macular degeneration, uterine cancer with hysterectomy, tardive dyskinesia, use a walker Social history: Lives at the [facility], does use a walker. Stopped drinking alcohol in 10 12. Never smoked. Physical examination: VITAL SIGNS: 98.7, 81, 17, 100 x 69, 92% on 4 L GENERAL: Sitting up in a chair, a bit tired LUNGS: Respiratory rate increased, PSYCH: Alert and oriented x3; mood and affect anxious. NEUROLOGICAL: Cranial nerves grossly intact; no facial asymmetry, moving all 4 limbs Breast exam per pulmonary nursing INVESTIGATIONS, reviewed in the clinical context: April 07: D-dimer 1.37 CRP 2.6 April 06: D-dimer 1.4 CRP 5.2 White count 10.2 hemoglobin 13.4 platelets 185 sodium 139 potassium 3.6 creatinine 0.7 to AST 239 ALT 59 albumin 3.4 Troponin I: Less than 0.012 proBNP 314 EKG tracing personally reviewed by me-sinus rhythm. Rate 79. Nonspecific T- wave changes. Chest CTA: No PE. Infiltrates. Assessment and plan: -Acute COVID 19 pneumonitis, symptoms starting 4 days ago. Received vaccine: COVID-19. April 03 did receive monoclonal antibody.: Improving IV steroids. Vitamin C vitamin D zinc. -Acute hypoxic respiratory failure with a pulse ox 90% on room air upon presentation: Slowly improving 4 L of nasal cannula. -Acute exacerbation of Moderate persistent asthma,: Slow to respond IV Solu-Medrol. Albuterol 4 puffs every 4. -Diabetes mellitus type 2, on oral hypoglycemic Sliding-scale insulin with coverage. -Essential Hypertension Lopressor 12.5 by mouth twice a day -Hyperlipidemia Lipitor 10 mg daily at bedtime -Diabetic peripheral neuropathy Neurontin 200 mg daily -GERD Tums when necessary -Paroxysmal atrial fibrillation currently sinus rhythm Lopressor 12.5 by mouth twice a day. Eliquis 5 mg twice a day -Schizoaffective disorder Clozaril 300 mg daily at bedtime Celexa 40 mg daily -Chronic urinary stress incontinence Ditropan XL 5 mg twice a day IV Solu-Medrol extensive every 6 increased today by pulmonary.. Albuterol 4 puffs every 4. Mucinex. Oxygen supplementation. Care was discussed with the patient. Incentive spirometry.
[2021-04-07 17:03] LABS: Glucose,Whole Blood 230 mg/dL (75-99)
--- NOTE | 2021-04-07 17:36 | P.PN ---
Subjective Progress Note Date: 04/07/21 Principal diagnosis: Acute exacerbation of COPD, COVID-19 pneumonia 65-year-old female patient, lives in an [facility] home, already vaccinated with Moderna 2 vaccines, has multiple medical problems and comorbidities an extensive psychiatric history and she is essentially residing at the [facility] home. The patient was in the hospital on 04/03/2021 and at that time she was diagnosed having COVID 19 related infection and based on her comorbidities, the patient was given monoclonal antibodies and the patient was discharged. She came back today hospital because of cough and shortness of breath and fever. Her CT angiogram was completed and there is no evidence of any pulmonary embolism. Limited groundglass changes bilaterally. D-dimer is at 1.4 and her CRP level is at 5.2. LFTs are mildly elevated consistent with COVID 19 with an AST of 239, ALT of 59, the electrolytes are normal, normal renal function, white cell count is at 10.2 with a hemoglobin of 13.4. She is currently on oxygen at 4 L with a pulse ox of 97% and home O2 at 2 L which is her baseline. Note that the patient has been on Eliquis on long-term basis regarding chronic atrial fibrillation. On 04/07/2021 patient seen in follow-up on medical surgical floor, she is resting comfortably in bed, she is on 4 L of oxygen pulse ox is 92%, although she still has wheezing, and congested cough. She continues on Decadron 6 mg daily, She is on home dose Eliquis, and she is on COVID-19 vitamins. CTA chest was negative for any evidence of pulmonary embolism. Today's labs have been reviewed, d-dimer is relatively stable at 1.37, CRP is 2.6. LDH is still pending on today's labs, pro-calcitonin level is 0.07 Objective - Vital Signs Vital signs: Vital Signs Temp 98.7 F 04/07/21 14:46 Pulse 81 04/07/21 14:46 Resp 17 04/07/21 14:46 BP 108/69 04/07/21 14:46 Pulse Ox 92 L 04/07/21 14:46 Intake & Output 04/06/21 04/07/21 04/07/21 18:59 06:59 18:59 Other: # Voids 4 3 # Bowel Movements 3 - Exam GENERAL EXAM: Alert, very pleasant, 65-year-old white female, on 4 L of oxygen with pulse ox 92% comfortable in no apparent distress. HEAD: Normocephalic/atraumatic. EYES: Normal reaction of pupils, equal size. Conjunctiva pink, sclera white. NOSE: Clear with pink turbinates. THROAT: No erythema or exudates. NECK: No masses, no JVD, no thyroid enlargement, no adenopathy. CHEST: No chest wall deformity. Symmetrical expansion. LUNGS: Equal air entry with basilar crackles CVS: Regular rate and rhythm, normal S1 and S2, no gallops, no murmurs, no rubs ABDOMEN: Soft, nontender. No hepatosplenomegaly, normal bowel sounds, no guarding or rigidity. EXTREMITIES: No clubbing, no edema, no cyanosis, 2+ pulses and upper and lower extremities. MUSCULOSKELETAL: Muscle strength and tone normal. SPINE: No scoliosis or deformity SKIN: No rashes CENTRAL NERVOUS SYSTEM: Alert and oriented -3. No focal deficits, tone is normal in all 4 extremities. PSYCHIATRIC: Alert and oriented -3. Appropriate affect. Intact judgment and insight. - Labs CBC & Chem 7: 04/05/21 12:35 04/05/21 13:25 Labs: Abnormal Lab Results - Last 24 Hours (Table) 04/06/21 04/07/21 04/07/21 Range/Units 21:06 06:47 08:04 D-Dimer 1.37 H (<0.60) mg/L FEU POC Glucose (mg/dL) 175 H 161 H (75-99) mg/dL C-Reactive Protein (<1.0) mg/dL 04/07/21 04/07/21 04/07/21 Range/Units 08:04 11:30 16:59 D-Dimer (<0.60) mg/L FEU POC Glucose (mg/dL) 115 H 230 H (75-99) mg/dL C-Reactive Protein 2.6 H (<1.0) mg/dL Assessment and Plan Plan: Assessment: #1. Acute COVID-19 pneumonia, with limited groundglass changes bilaterally. Patient has completed against COVID-19 with MRNA vaccine. Patient received monoclonal antibodies on 04/03/2021, currently is on 4 L of oxygen #2. Acute exacerbation of COPD #3. Mediastinal lymph node calcification with questionable bronchial with adjacent to the right lower lobe bronchus a marker of a previous granulomatous infection of the lung #4. Elevated inflammatory markers related to acute COVID-19 pneumonia #5. Acute on top of chronic hypoxic respiratory failure and shortness of breath #6. Chronic bronchial asthma with some exacerbation #7. History of paroxysmal atrial fibrillation, currently in sinus mechanism, on Eliquis #7. History of schizophrenia #8. Hypertension #9. Diabetes mellitus type 2 #10. Hyperlipidemia #11. Chronic lower extremity edema #12. Previous history of left axillary abscess/cellulitis with MSSA post I&D #13. History of shingles #14. Macular degeneration #15. History of coronary artery disease with 50% lesion in the LAD #16. Peripheral neuropathy #17. Chronic anxiety #18. Chronic migraines Plan: Continue current medical treatment We'll switch Decadron to IV Solu-Medrol 60 mg every 6 hours Continue albuterol and Symbicort Continue Eliquis Continue multivitamins We'll continue to follow her progress I performed a history & physical examination of the patient and discussed their management with my nurse practitioner, Maryann Bradford. I reviewed the nurse practitioner's note and agree with the documented findings and plan of care. Lung sounds are positive for diffuse wheezes throughout the lung doyle. The findings and the impression was discussed with the patient. I attest to the documentation by the nurse practitioner. Time with Patient: Less than 30
[2021-04-07] MEDS: methylPREDNISolone SOD SUCCI 125 MG/2 ML VIAL IV SCH (18:16)
[2021-04-07] MEDS: ACETAMINOPHEN TAB 325 MG TAB PO PRN (19:47)
[2021-04-07] MEDS: ATORVASTATIN 10 MG TAB PO SCH (20:07)
[2021-04-07] MEDS: cloZAPine 100 MG TAB PO SCH (20:07)
[2021-04-07 20:35] LABS: Glucose,Whole Blood 215 mg/dL (75-99)
[2021-04-07] MEDS: SYMBICORT 160-4.5 MCG INHALER INHALATION SCH (21:28)
[2021-04-08] MEDS: methylPREDNISolone SOD SUCCI 125 MG/2 ML VIAL IV SCH ×4 (00:50→16:25)
[2021-04-08] MEDS: ALBUTEROL HFA INHALER INHALATION SCH ×7 (01:34→23:59)
[2021-04-08 06:59] LABS: Glucose,Whole Blood 205 mg/dL (75-99)
[2021-04-08] MEDS: ZINC SULFATE 220 MG CAP PO SCH (08:22)
[2021-04-08] MEDS: VIT A,C & E-LUTEIN-MINERALS 1 EACH TAB PO SCH (08:22)
[2021-04-08] MEDS: ISOSORBIDE MONONITRATE ER 60 MG TAB.ER.24H PO SCH (08:22)
[2021-04-08] MEDS: GABAPENTIN 100 MG CAP PO SCH (08:22)
[2021-04-08] MEDS: CYANOCOBALAMIN 500 MCG TAB PO SCH (08:22)
[2021-04-08] MEDS: METOPROLOL TARTRATE 12.5 MG TAB PO SCH ×2 (08:22→20:16)
[2021-04-08] MEDS: metFORMIN 500 MG TAB PO SCH ×2 (08:22→18:03)
[2021-04-08] MEDS: INSULIN ASPART (NovoLOG) 100 UNIT/ML VIAL SQ SCH ×3 (08:22→17:33)
[2021-04-08] MEDS: APIXABAN 5 MG TAB PO SCH ×2 (08:23→20:14)
[2021-04-08] MEDS: DIGOXIN 125 MCG TAB PO SCH (08:23)
[2021-04-08] MEDS: guaiFENesin 600 MG TABLET.ER PO SCH ×4 (08:23→22:00)
[2021-04-08] MEDS: ASCORBIC ACID 500 MG TAB PO SCH ×2 (08:23→20:16)
[2021-04-08] MEDS: OXYBUTYNIN XL 5 MG TAB.ER.24 PO SCH ×2 (08:23→20:14)
[2021-04-08] MEDS: CHOLECALCIFEROL 25 MCG (1000 IU) TABLET PO SCH (08:23)
[2021-04-08] MEDS: CITALOPRAM HYDROBROMIDE 20 MG TAB PO SCH (08:23)
[2021-04-08] MEDS: SYMBICORT 160-4.5 MCG INHALER INHALATION SCH ×2 (09:07→20:08)
[2021-04-08 11:26] LABS: Glucose,Whole Blood 143 mg/dL (75-99)
--- NOTE | 2021-04-08 11:42 | P.PN ---
Subjective Progress Note Date: 04/08/21 Principal diagnosis: Acute exacerbation of COPD, COVID-19 pneumonia 65-year-old female patient, lives in an [facility] home, already vaccinated with Moderna 2 vaccines, has multiple medical problems and comorbidities an extensive psychiatric history and she is essentially residing at the [facility] home. The patient was in the hospital on 04/03/2021 and at that time she was diagnosed having COVID 19 related infection and based on her comorbidities, the patient was given monoclonal antibodies and the patient was discharged. She came back today hospital because of cough and shortness of breath and fever. Her CT angiogram was completed and there is no evidence of any pulmonary embolism. Limited groundglass changes bilaterally. D-dimer is at 1.4 and her CRP level is at 5.2. LFTs are mildly elevated consistent with COVID 19 with an AST of 239, ALT of 59, the electrolytes are normal, normal renal function, white cell count is at 10.2 with a hemoglobin of 13.4. She is currently on oxygen at 4 L with a pulse ox of 97% and home O2 at 2 L which is her baseline. Note that the patient has been on Eliquis on long-term basis regarding chronic atrial fibrillation. On 04/07/2021 patient seen in follow-up on medical surgical floor, she is resting comfortably in bed, she is on 4 L of oxygen pulse ox is 92%, although she still has wheezing, and congested cough. She continues on Decadron 6 mg daily, She is on home dose Eliquis, and she is on COVID-19 vitamins. CTA chest was negative for any evidence of pulmonary embolism. Today's labs have been reviewed, d-dimer is relatively stable at 1.37, CRP is 2.6. LDH is still pending on today's labs, pro-calcitonin level is 0.07 On 04/08/2021 patient seen in follow-up on medical surgical floor. She is on 4 L of oxygen pulse ox 96%, still very rhonchorous, congested,, though slightly better from yesterday. Yesterday we switched her from Decadron to Solu-Medrol. Patient continues on Symbicort, albuterol, she is on home dose Eliquis 5 mg twice daily, she is on COVID-19 vitamins, Mucinex. No fever or chills, no acute events overnight. Today's labs have been noted, d-dimer is 1.39 and it is slightly improved from yesterday, and CRP is improving and is down to 1.8, LDH is still pending for today. Objective - Vital Signs Vital signs: Vital Signs Temp 97.7 F 04/08/21 10:00 Pulse 81 04/08/21 10:00 Resp 20 04/08/21 10:00 BP 95/57 04/08/21 10:00 Pulse Ox 91 L 04/08/21 10:00 Intake & Output 04/07/21 04/08/21 04/08/21 18:59 06:59 18:59 Intake Total 160 Balance 160 Intake: Oral 160 Other: Voiding Method Toilet Bedside Commode # Voids 3 2 - Exam GENERAL EXAM: Alert, very pleasant, 65-year-old white female, on 4 L of oxygen with pulse ox 96% comfortable in no apparent distress. HEAD: Normocephalic/atraumatic. EYES: Normal reaction of pupils, equal size. Conjunctiva pink, sclera white. NOSE: Clear with pink turbinates. THROAT: No erythema or exudates. NECK: No masses, no JVD, no thyroid enlargement, no adenopathy. CHEST: No chest wall deformity. Symmetrical expansion. LUNGS: Equal air entry with basilar crackles, diffuse rhonchi CVS: Regular rate and rhythm, normal S1 and S2, no gallops, no murmurs, no rubs ABDOMEN: Soft, nontender. No hepatosplenomegaly, normal bowel sounds, no guarding or rigidity. EXTREMITIES: No clubbing, no edema, no cyanosis, 2+ pulses and upper and lower extremities. MUSCULOSKELETAL: Muscle strength and tone normal. SPINE: No scoliosis or deformity SKIN: No rashes CENTRAL NERVOUS SYSTEM: Alert and oriented -3. No focal deficits, tone is normal in all 4 extremities. PSYCHIATRIC: Alert and oriented -3. Appropriate affect. Intact judgment and insight. - Labs CBC & Chem 7: 04/05/21 12:35 04/05/21 13:25 Labs: Abnormal Lab Results - Last 24 Hours (Table) 04/07/21 04/07/21 04/08/21 Range/Units 16:59 20:33 06:06 D-Dimer 1.39 H (<0.60) mg/L FEU POC Glucose (mg/dL) 230 H 215 H (75-99) mg/dL C-Reactive Protein (<1.0) mg/dL 04/08/21 04/08/21 04/08/21 Range/Units 06:06 06:55 11:19 D-Dimer (<0.60) mg/L FEU POC Glucose (mg/dL) 205 H 143 H (75-99) mg/dL C-Reactive Protein 1.8 H (<1.0) mg/dL Assessment and Plan Plan: Assessment: #1. Acute COVID-19 pneumonia, with limited groundglass changes bilaterally. Patient has completed against COVID-19 with MRNA vaccine. Patient received monoclonal antibodies on 04/03/2021, currently is on 4 L of oxygen #2. Acute exacerbation of COPD #3. Mediastinal lymph node calcification with questionable bronchial with adjacent to the right lower lobe bronchus a marker of a previous granulomatous infection of the lung #4. Elevated inflammatory markers related to acute COVID-19 pneumonia #5. Acute on top of chronic hypoxic respiratory failure and shortness of breath #6. Chronic bronchial asthma with some exacerbation #7. History of paroxysmal atrial fibrillation, currently in sinus mechanism, on Eliquis #7. History of schizophrenia #8. Hypertension #9. Diabetes mellitus type 2 #10. Hyperlipidemia #11. Chronic lower extremity edema #12. Previous history of left axillary abscess/cellulitis with MSSA post I&D #13. History of shingles #14. Macular degeneration #15. History of coronary artery disease with 50% lesion in the LAD #16. Peripheral neuropathy #17. Chronic anxiety #18. Chronic migraines Plan: Continue IV Solu-Medrol Continue inhaled bronchodilators Still wheezy, congested, slightly better on today's exam Continue Eliquis Continue multivitamins Today's labs have been noted, d-dimer inflammatory markers are improving follow up chest x-ray and labs tomorrow We'll continue to follow her progress I performed a history & physical examination of the patient and discussed their management with my nurse practitioner, Maryann Bradford. I reviewed the nurse practitioner's note and agree with the documented findings and plan of care. Lung sounds are positive for diffuse wheezes throughout the lung doyle. The findings and the impression was discussed with the patient. I attest to the documentation by the nurse practitioner. Time with Patient: Less than 30
[2021-04-08 16:45] LABS: Glucose,Whole Blood 224 mg/dL (75-99)
--- NOTE | 2021-04-08 17:50 | P.PN ---
Progress Note - Text Progress Note Date: 04/08/21 Chief Complaint: Congested cough fever History of presenting complaint: pleasant 65-year-old patient of visiting physician Dr. Gomes. Resident of [facility] . Does use a walker - baseline to get about. Chronic stable medical conditions include asthma diabetes mellitus type 2, hypertension, hyperlipidemia, hiatal hernia, peripheral neuropathy, schizoaffective disorder, GERD. Patient 4 days started off with cough shortness of breath. Fever chills. Headaches. Bodyaches. Poor appetite. Symptoms have been progressive. Patient given to the ER 2 days ago. Had a fever to 102.4. Pulse ox was 94% on room air. X-ray showed worse in gestation. Patient has received vaccination for COVID-19. come back positive for the same. Received monoclonal antibodies. symptoms progressed to get worse. Patient felt so weak she started to fall. Decided to come back in. Admitted with COVID 19 pneumonitis, acute hypoxic respiratory failure, acute asthma exacerbation. Patient is already on eliquis. Placed on IV Solu-Medrol. April 06: Sitting up in a chair. Some improvement in breathing. Eating some. Cough. Tired. April 07: Sitting up in a chair. Oral intake improved. Some shortness of breath. On 4 L of nasal cannula. IV Solu-Medrol increased by pulmonary. April 08: Up in a chair. Congested chest. Shortness of breath. Eating anemia from 50-100%. On 4 L of nasal cannula. Review of systems: Was done for constitutional, cardiovascular, GI, pulmonary. relevant finding as above Active Medications Acetaminophen (Acetaminophen Tab 325 Mg Tab) 650 mg PO Q6HR PRN PRN Reason: Mild Pain or Fever > 100.5 Last Admin: 04/07/21 19:47 Dose: 650 mg Documented by: Al Hydroxide/Mg Hydroxide (Mag Hydrox/Al Hydrox/Simeth 30 Ml Cup) 15 ml PO Q6HR PRN PRN Reason: Indigestion Albuterol Sulfate (Albuterol Hfa Inhaler) 4 puff INHALATION RT-Q4H [facility] Last Admin: 04/08/21 16:24 Dose: 4 puff Documented by: Apixaban (Apixaban 5 Mg Tab) 5 mg PO BID [facility]; Protocol Last Admin: 04/08/21 08:23 Dose: 5 mg Documented by: Ascorbic Acid (Ascorbic Acid 500 Mg Tab) 500 mg PO BID [facility] Last Admin: 04/08/21 08:23 Dose: 500 mg Documented by: Atorvastatin Calcium (Atorvastatin 10 Mg Tab) 10 mg PO HS [facility] Last Admin: 04/07/21 20:07 Dose: 10 mg Documented by: Budesonide/Formoterol Fumarate (Symbicort 160-4.5 Mcg Inhaler) 2 puff INHALATION RT-BID [facility] Last Admin: 04/08/21 09:07 Dose: Not Given Documented by: Calcium Carbonate/Glycine (Calcium Carbonate 500 Mg Chewable) 1,000 mg PO Q4HR PRN PRN Reason: Dyspepsia Cholecalciferol (Cholecalciferol 25 Mcg (1000 Iu) Tablet) 100 mcg PO DAILY [facility] Last Admin: 04/08/21 08:23 Dose: 100 mcg Documented by: Citalopram Hydrobromide (Citalopram Hydrobromide 20 Mg Tab) 40 mg PO DAILY [facility] Last Admin: 04/08/21 08:23 Dose: 40 mg Documented by: Clozapine (Clozapine 100 Mg Tab) 300 mg PO [facility] Stop: 04/09/21 21:01 Last Admin: 04/07/21 20:07 Dose: 300 mg Documented by: Cyanocobalamin (Cyanocobalamin 500 Mcg Tab) 1,000 mcg PO DAILY [facility] Last Admin: 04/08/21 08:22 Dose: 1,000 mcg Documented by: Digoxin (Digoxin 125 Mcg Tab) 125 mcg PO DAILY [facility] Last Admin: 04/08/21 08:23 Dose: 125 mcg Documented by: Gabapentin (Gabapentin 100 Mg Cap) 200 mg PO DAILY [facility] Last Admin: 04/08/21 08:22 Dose: 200 mg Documented by: Guaifenesin (Guaifenesin 600 Mg Tablet.Er) 600 mg PO QID [facility] Last Admin: 04/08/21 16:25 Dose: 600 mg Documented by: Hyoscyamine (Hyoscyamine Sulfate 0.125 Mg Tab) 0.125 mg PO Q8H PRN PRN Reason: DROOLING Insulin Aspart (Insulin Aspart (Novolog) 100 Unit/Ml Vial) 0 unit SQ AC-TID [facility]; Protocol Last Admin: 04/08/21 17:33 Dose: 7 unit Documented by: Isosorbide Mononitrate (Isosorbide Mononitrate Er 60 Mg Tab.Er.24h) 60 mg PO DAILY [facility] Last Admin: 04/08/21 08:22 Dose: 60 mg Documented by: Lactulose (Lactulose 20 Gm/30 Ml Cup) 20 gm PO DAILY PRN PRN Reason: Constipation Lorazepam (Lorazepam 1 Mg Tab) 1 mg PO HS PRN PRN Reason: Insomnia Last Admin: 04/07/21 19:48 Dose: 1 mg Documented by: Magnesium Hydroxide (Magnesium Hydroxide 2,400 Mg/10 Ml Cup) 2,400 mg PO DAILY PRN PRN Reason: Constipation Melatonin (Melatonin 3 Mg Tablet) 3 mg PO HS PRN PRN Reason: Insomnia Metformin HCl (Metformin 500 Mg Tab) 500 mg PO Q48H [facility] Last Admin: 04/08/21 08:22 Dose: 500 mg Documented by: Methylprednisolone Sodium Succinate (Methylprednisolone Sod Succi 125 Mg/2 Ml Vial) 60 mg IV Q6HR [facility] Last Admin: 04/08/21 16:25 Dose: 60 mg Documented by: Metoprolol Tartrate (Metoprolol Tartrate 12.5 Mg Tab) 12.5 mg PO BID [facility] Last Admin: 04/08/21 08:22 Dose: 12.5 mg Documented by: Multivitamins/Minerals (Vit A,C & I-Ajbysr-Oefdvpbf 1 Each Tab) 1 each PO DAILY [facility] Last Admin: 04/08/21 08:22 Dose: 1 each Documented by: Naloxone HCl (Naloxone 0.4 Mg/Ml 1 Ml Vial) 0.2 mg IV Q2M PRN PRN Reason: Opioid Reversal Ondansetron HCl (Ondansetron 4 Mg/2 Ml Vial) 4 mg IVP Q8HR PRN PRN Reason: Nausea And Vomiting Oxybutynin Chloride (Oxybutynin Xl 5 Mg Tab.Er.24) 5 mg PO BID [facility] Last Admin: 04/08/21 08:23 Dose: 5 mg Documented by: Zinc Sulfate (Zinc Sulfate 220 Mg Cap) 220 mg PO DAILY [facility] Last Admin: 04/08/21 08:22 Dose: 220 mg Documented by: Past medical history to include: COVID-19 positive diagnosed on 04/03/2021. Persistent bronchial asthma, diabetes mellitus type 2, hypertension, hyperlipidemia, obesity, hiatal hernia, idiopathic peripheral neuropathy, GERD, schizoaffective disorder bipolar type, atrial fibrillation, macular degeneration, uterine cancer with hysterectomy, tardive dyskinesia, use a walker Social history: Lives at the [facility], does use a walker. Stopped drinking alcohol in 2006. Never smoked. Physical examination: VITAL SIGNS: 97.7, 81, 20, 95/57, 91% on 4 L GENERAL: Sitting up in a chair, a bit tired LUNGS: Respiratory rate increased, PSYCH: Alert and oriented x3; mood and affect anxious. NEUROLOGICAL: Cranial nerves grossly intact; no facial asymmetry, moving all 4 limbs Breast exam per pulmonary nursing INVESTIGATIONS, reviewed in the clinical context: April 08: D-dimer 1.39 CRP 1.8 April 07: D-dimer 1.37 CRP 2.6 April 06: D-dimer 1.4 CRP 5.2 White count 10.2 hemoglobin 13.4 platelets 185 sodium 139 potassium 3.6 creatinine 0.7 to AST 239 ALT 59 albumin 3.4 Troponin I: Less than 0.012 proBNP 314 EKG tracing personally reviewed by me-sinus rhythm. Rate 79. Nonspecific T- wave changes. Chest CTA: No PE. Infiltrates. Assessment and plan: -Acute COVID 19 pneumonitis, symptoms starting 4 days ago. Received vaccine: COVID-19. April 03 did receive monoclonal antibody.: Slow to respond IV steroids. Vitamin C vitamin D zinc. -Acute hypoxic respiratory failure with a pulse ox 90% on room air upon presentation: Slowly improving 4 L of nasal cannula. -Acute exacerbation of Moderate persistent asthma,: Slow to respond IV Solu-Medrol 60 mg every 6. Albuterol 4 puffs every 4. -Diabetes mellitus type 2, on oral hypoglycemic. Uncontrolled with hyperglycemia. Change metformin to 500 mg twice a day. Add 10 units of Levemir at night. -Essential Hypertension Lopressor 12.5 by mouth twice a day -Hyperlipidemia Lipitor 10 mg daily at bedtime -Diabetic peripheral neuropathy Neurontin 200 mg daily -GERD Tums when necessary -Paroxysmal atrial fibrillation currently sinus rhythm Lopressor 12.5 by mouth twice a day. Eliquis 5 mg twice a day -Schizoaffective disorder Clozaril 300 mg daily at bedtime Celexa 40 mg daily -Chronic urinary stress incontinence Ditropan XL 5 mg twice a day IV Solu-Medrol every 6 Albuterol 4 puffs every 4. Mucinex. Oxygen supplementation. Increase metformin to 5 mg twice a day. Levemir 10 units subcu at bedtime.
[2021-04-08] MEDS: ACETAMINOPHEN TAB 325 MG TAB PO PRN (19:45)
[2021-04-08] MEDS: cloZAPine 100 MG TAB PO SCH (20:14)
[2021-04-08] MEDS: LORazepam 1 MG TAB PO PRN (20:15)
[2021-04-08] MEDS: ATORVASTATIN 10 MG TAB PO SCH (20:16)
[2021-04-08] MEDS: INSULIN DETEMIR (LEVEMIR) 100 UNIT/ML SYR SQ SCH (20:38)
[2021-04-08 21:33] LABS: Glucose,Whole Blood 150 mg/dL (75-99)
[2021-04-09] MEDS: methylPREDNISolone SOD SUCCI 125 MG/2 ML VIAL IV SCH ×4 (00:41→17:08)
[2021-04-09] MEDS: ALBUTEROL HFA INHALER INHALATION SCH ×6 (04:23→23:31)
[2021-04-09 07:20] LABS: Glucose,Whole Blood 136 mg/dL (75-99)
[2021-04-09 07:42] LABS: Basophils % (A) 0 %; Eosinophils % (A) 0 %; HCT 39.6 % (34.0-46.0); Lymphocytes # (A) 1.1 k/uL (1.0-4.8); Lymphocytes % (A) 6 %; MCH 30.6 pg (25.0-35.0); MCHC 32.9 g/dL (31.0-37.0); MCV 93.2 fL (80.0-100.0); Mean Platelet Volume 7.9; Monocytes # (A) 0.7 k/uL (0-1.0); Monocytes % (A) 4 %; Neutrophils # (A) 14.9 k/uL (1.3-7.7); Neutrophils % (A) 89 %; Platelet Count 238 k/uL (150-450); RBC 4.25 m/uL (3.80-5.40); RDW 11.8 % (11.5-15.5); WBC 16.7 k/uL (3.8-10.6)
[2021-04-09 07:56] LABS: African American GFR (CKD) 84 (>60 ml/min/1.73 sqM); Anion Gap 4 mmol/L; Blood Urea Nitrogen 31 mg/dL (7-17); Calcium 9.5 mg/dL (8.4-10.2); Carbon Dioxide 27 mmol/L (22-30); Chloride 107 mmol/L (98-107); Glucose 133 mg/dL (74-99); LDH 584 U/L (313-618); Non-African American GFR(CKD) 73 (>60 ml/min/1.73 sqM); Potassium 4.6 mmol/L (3.5-5.1); Sodium 138 mmol/L (137-145)
[2021-04-09] MEDS: CITALOPRAM HYDROBROMIDE 20 MG TAB PO SCH (08:11)
[2021-04-09] MEDS: INSULIN ASPART (NovoLOG) 100 UNIT/ML VIAL SQ SCH ×3 (08:11→17:06)
[2021-04-09] MEDS: GABAPENTIN 100 MG CAP PO SCH (08:12)
[2021-04-09] MEDS: CYANOCOBALAMIN 500 MCG TAB PO SCH (08:12)
[2021-04-09] MEDS: ASCORBIC ACID 500 MG TAB PO SCH ×2 (08:13→20:59)
[2021-04-09] MEDS: CHOLECALCIFEROL 25 MCG (1000 IU) TABLET PO SCH (08:13)
[2021-04-09] MEDS: ISOSORBIDE MONONITRATE ER 60 MG TAB.ER.24H PO SCH (08:13)
[2021-04-09] MEDS: DIGOXIN 125 MCG TAB PO SCH (08:13)
[2021-04-09] MEDS: OXYBUTYNIN XL 5 MG TAB.ER.24 PO SCH ×2 (08:13→20:59)
[2021-04-09] MEDS: metFORMIN 500 MG TAB PO SCH ×2 (08:13→17:07)
[2021-04-09] MEDS: METOPROLOL TARTRATE 12.5 MG TAB PO SCH ×2 (08:13→20:59)
[2021-04-09] MEDS: APIXABAN 5 MG TAB PO SCH ×2 (08:13→20:59)
[2021-04-09] MEDS: VIT A,C & E-LUTEIN-MINERALS 1 EACH TAB PO SCH (08:14)
[2021-04-09] MEDS: SYMBICORT 160-4.5 MCG INHALER INHALATION SCH ×2 (08:43→20:07)
[2021-04-09] MEDS: ZINC SULFATE 220 MG CAP PO SCH (08:44)
[2021-04-09] MEDS: guaiFENesin 600 MG TABLET.ER PO SCH ×4 (08:44→20:59)
[2021-04-09 09:42] LABS: C Reactive Protein 1.2 mg/dL (<1.0)
--- NOTE | 2021-04-09 10:34 | XR ---
EXAMINATION TYPE: XR chest 1V portable DATE OF EXAM: 04/09/2021 COMPARISON: Chest x-ray 04/05/2021 HISTORY: Covid infection, abnormal chest x-ray TECHNIQUE: Single frontal view of the chest is obtained. FINDINGS: Some minimal patchy basilar density persists. No evident pneumothorax or pleural effusion. Cardiac and mediastinal silhouette is stable accounting for differences in technique. Surgical clips present right upper quadrant, postoperative changes noted in the cervical spine. Aorta is dense. Exa m is expiratory and rotated. IMPRESSION: Minimal patchy residual airspace disease.
[2021-04-09 11:52] LABS: Glucose,Whole Blood 214 mg/dL (75-99)
--- NOTE | 2021-04-09 13:05 | P.PN ---
Subjective Progress Note Date: 04/09/21 Principal diagnosis: Acute exacerbation of COPD, COVID-19 pneumonia 65-year-old female patient, lives in an [facility] home, already vaccinated with Moderna 2 vaccines, has multiple medical problems and comorbidities an extensive psychiatric history and she is essentially residing at the [facility] home. The patient was in the hospital on 04/03/2021 and at that time she was diagnosed having COVID 19 related infection and based on her comorbidities, the patient was given monoclonal antibodies and the patient was discharged. She came back today hospital because of cough and shortness of breath and fever. Her CT angiogram was completed and there is no evidence of any pulmonary embolism. Limited groundglass changes bilaterally. D-dimer is at 1.4 and her CRP level is at 5.2. LFTs are mildly elevated consistent with COVID 19 with an AST of 239, ALT of 59, the electrolytes are normal, normal renal function, white cell count is at 10.2 with a hemoglobin of 13.4. She is currently on oxygen at 4 L with a pulse ox of 97% and home O2 at 2 L which is her baseline. Note that the patient has been on Eliquis on long-term basis regarding chronic atrial fibrillation. On 04/07/2021 patient seen in follow-up on medical surgical floor, she is resting comfortably in bed, she is on 4 L of oxygen pulse ox is 92%, although she still has wheezing, and congested cough. She continues on Decadron 6 mg daily, She is on home dose Eliquis, and she is on COVID-19 vitamins. CTA chest was negative for any evidence of pulmonary embolism. Today's labs have been reviewed, d-dimer is relatively stable at 1.37, CRP is 2.6. LDH is still pending on today's labs, pro-calcitonin level is 0.07 On 04/08/2021 patient seen in follow-up on medical surgical floor. She is on 4 L of oxygen pulse ox 96%, still very rhonchorous, congested,, though slightly better from yesterday. Yesterday we switched her from Decadron to Solu-Medrol. Patient continues on Symbicort, albuterol, she is on home dose Eliquis 5 mg twice daily, she is on COVID-19 vitamins, Mucinex. No fever or chills, no acute events overnight. Today's labs have been noted, d-dimer is 1.39 and it is slightly improved from yesterday, and CRP is improving and is down to 1.8, LDH is still pending for today. On 04/09/2021 patient seen in follow-up on medical surgical floor. She still very congested and wheezy. She remains on 5 L of oxygen her pulse ox of 95%, she is dyspneic with exertion, she remains on IV Solu-Medrol, inhaled bronchodilators in the form of Symbicort and albuterol, she is on Eliquis for history of atrial fibrillation, she has been slow to improve, however oxygenation has remained relatively stable requiring 4-5 L of supplemental oxygen in the last few days. No fever or chills, no complaints of chest discomfort. Chest x-ray today showing minimal patchy residual airspace disease. Today's labs have been reviewed, white blood cell, 16.7, hemoglobin is 13, d- dimer is 1.19, electrolytes are within normal limits, BUN is 21 creatinine 0.85, inflammatory markers are improving. Objective - Vital Signs Vital signs: Vital Signs Temp 98.0 F 04/09/21 10:00 Pulse 73 04/09/21 10:00 Resp 18 04/09/21 10:00 BP 122/75 04/09/21 10:00 Pulse Ox 95 04/09/21 10:00 Intake & Output 04/08/21 04/09/21 04/09/21 18:59 06:59 18:59 Other: Voiding Method Toilet Bedside Commode # Voids 3 2 3 # Bowel Movements 1 - Exam GENERAL EXAM: Alert, very pleasant, 65-year-old white female, on 5 L of oxygen with pulse ox 96% comfortable in no apparent distress. HEAD: Normocephalic/atraumatic. EYES: Normal reaction of pupils, equal size. Conjunctiva pink, sclera white. NOSE: Clear with pink turbinates. THROAT: No erythema or exudates. NECK: No masses, no JVD, no thyroid enlargement, no adenopathy. CHEST: No chest wall deformity. Symmetrical expansion. LUNGS: Equal air entry with basilar crackles, diffuse rhonchi CVS: Regular rate and rhythm, normal S1 and S2, no gallops, no murmurs, no rubs ABDOMEN: Soft, nontender. No hepatosplenomegaly, normal bowel sounds, no guarding or rigidity. EXTREMITIES: No clubbing, no edema, no cyanosis, 2+ pulses and upper and lower extremities. MUSCULOSKELETAL: Muscle strength and tone normal. SPINE: No scoliosis or deformity SKIN: No rashes CENTRAL NERVOUS SYSTEM: Alert and oriented -3. No focal deficits, tone is nor mal in all 4 extremities. PSYCHIATRIC: Alert and oriented -3. Appropriate affect. Intact judgment and insight. - Labs CBC & Chem 7: 04/09/21 07:04 04/09/21 07:04 Labs: Abnormal Lab Results - Last 24 Hours (Table) 04/08/21 04/08/21 04/09/21 Range/Units 16:43 21:32 07:04 WBC 16.7 H (3.8-10.6) k/uL Neutrophils # 14.9 H (1.3-7.7) k/uL D-Dimer (<0.60) mg/L FEU BUN (7-17) mg/dL Glucose (74-99) mg/dL POC Glucose (mg/dL) 224 H 150 H (75-99) mg/dL C-Reactive Protein (<1.0) mg/dL 04/09/21 04/09/21 04/09/21 Range/Units 07:04 07:04 07:16 WBC (3.8-10.6) k/uL Neutrophils # (1.3-7.7) k/uL D-Dimer 1.19 H (<0.60) mg/L FEU BUN 31 H (7-17) mg/dL Glucose 133 H (74-99) mg/dL POC Glucose (mg/dL) 136 H (75-99) mg/dL C-Reactive Protein 1.2 H (<1.0) mg/dL 04/09/21 Range/Units 11:41 WBC (3.8-10.6) k/uL Neutrophils # (1.3-7.7) k/uL D-Dimer (<0.60) mg/L FEU BUN (7-17) mg/dL Glucose (74-99) mg/dL POC Glucose (mg/dL) 214 H (75-99) mg/dL C-Reactive Protein (<1.0) mg/dL Assessment and Plan Plan: Assessment: #1. Acute COVID-19 pneumonia, with limited groundglass changes bilaterally. Patient has completed against COVID-19 with MRNA vaccine. Patient received monoclonal antibodies on 04/03/2021, currently is on 5 L of oxygen #2. Acute exacerbation of COPD #3. Mediastinal lymph node calcification with questionable bronchial with adjacent to the right lower lobe bronchus a marker of a previous granulomatous infection of the lung #4. Elevated inflammatory markers related to acute COVID-19 pneumonia #5. Acute on top of chronic hypoxic respiratory failure and shortness of breath #6. Chronic bronchial asthma with some exacerbation #7. History of paroxysmal atrial fibrillation, currently in sinus mechanism, on Eliquis #7. History of schizophrenia #8. Hypertension #9. Diabetes mellitus type 2 #10. Hyperlipidemia #11. Chronic lower extremity edema #12. Previous history of left axillary abscess/cellulitis with MSSA post I&D #13. History of shingles #14. Macular degeneration #15. History of coronary artery disease with 50% lesion in the LAD #16. Peripheral neuropathy #17. Chronic anxiety #18. Chronic migraines Plan: Still wheezy and congested Continue IV Solu-Medrol Continue inhaled bronchodilators Continue Eliquis Continue multivitamins Follow-up chest x-ray has been reviewed Today's labs have been reviewed Inflammatory markers are improving Will continue to follow I performed a history & physical examination of the patient and discussed their management with my nurse practitioner, Maryann Bradford. I reviewed the nurse practitioner's note and agree with the documented findings and plan of care. Lung sounds are positive for diffuse wheezes throughout the lung doyle. The findings and the impression was discussed with the patient. I attest to the documentation by the nurse practitioner. Time with Patient: Less than 30
--- NOTE | 2021-04-09 13:21 | P.PN ---
Progress Note - Text Progress Note Date: 04/09/21 Chief Complaint: Congested cough fever History of presenting complaint: pleasant 65-year-old patient of visiting physician Dr. Gomes. Resident of [facility] . Does use a walker - baseline to get about. Chronic stable medical conditions include asthma diabetes mellitus type 2, hypertension, hyperlipidemia, hiatal hernia, peripheral neuropathy, schizoaffective disorder, GERD. Patient 4 days started off with cough shortness of breath. Fever chills. Headaches. Bodyaches. Poor appetite. Symptoms have been progressive. Patient given to the ER 2 days ago. Had a fever to 102.4. Pulse ox was 94% on room air. X-ray showed worse in gestation. Patient has received vaccination for COVID-19. come back positive for the same. Received monoclonal antibodies. symptoms progressed to get worse. Patient felt so weak she started to fall. Decided to come back in. Admitted with COVID 19 pneumonitis, acute hypoxic respiratory failure, acute asthma exacerbation. Patient is already on eliquis. Placed on IV Solu-Medrol. April 06: Sitting up in a chair. Some improvement in breathing. Eating some. Cough. Tired. April 07: Sitting up in a chair. Oral intake improved. Some shortness of breath. On 4 L of nasal cannula. IV Solu-Medrol increased by pulmonary. April 08: Up in a chair. Congested chest. Shortness of breath. Eating 50- 100%. On 4 L of nasal cannula. April 09: Up in a chair. Eating fair. Breathing a bit better. 4 L of nasal cannula. Some cough. Review of systems: Was done for constitutional, cardiovascular, GI, pulmonary. relevant finding as above Active Medications Acetaminophen (Acetaminophen Tab 325 Mg Tab) 650 mg PO Q6HR PRN PRN Reason: Mild Pain or Fever > 100.5 Last Admin: 04/08/21 19:45 Dose: 650 mg Documented by: Al Hydroxide/Mg Hydroxide (Mag Hydrox/Al Hydrox/Simeth 30 Ml Cup) 15 ml PO Q6HR PRN PRN Reason: Indigestion Albuterol Sulfate (Albuterol Hfa Inhaler) 4 puff INHALATION RT-Q4H [facility] Last Admin: 04/09/21 12:00 Dose: 4 puff Documented by: Apixaban (Apixaban 5 Mg Tab) 5 mg PO BID [facility]; Protocol Last Admin: 04/09/21 08:13 Dose: 5 mg Documented by: Ascorbic Acid (Ascorbic Acid 500 Mg Tab) 500 mg PO BID [facility] Last Admin: 04/09/21 08:13 Dose: 500 mg Documented by: Atorvastatin Calcium (Atorvastatin 10 Mg Tab) 10 mg PO HS [facility] Last Admin: 04/08/21 20:16 Dose: 10 mg Documented by: Budesonide/Formoterol Fumarate (Symbicort 160-4.5 Mcg Inhaler) 2 puff INHALATION RT-BID [facility] Last Admin: 04/09/21 08:43 Dose: 2 puff Documented by: Calcium Carbonate/Glycine (Calcium Carbonate 500 Mg Chewable) 1,000 mg PO Q4HR PRN PRN Reason: Dyspepsia Cholecalciferol (Cholecalciferol 25 Mcg (1000 Iu) Tablet) 100 mcg PO DAILY [facility] Last Admin: 04/09/21 08:13 Dose: 100 mcg Documented by: Citalopram Hydrobromide (Citalopram Hydrobromide 20 Mg Tab) 40 mg PO DAILY [facility] Last Admin: 04/09/21 08:11 Dose: 40 mg Documented by: Clozapine (Clozapine 100 Mg Tab) 300 mg PO [facility] Stop: 04/09/21 21:01 Last Admin: 04/08/21 20:14 Dose: 300 mg Documented by: Cyanocobalamin (Cyanocobalamin 500 Mcg Tab) 1,000 mcg PO DAILY [facility] Last Admin: 04/09/21 08:12 Dose: 1,000 mcg Documented by: Digoxin (Digoxin 125 Mcg Tab) 125 mcg PO DAILY [facility] Last Admin: 04/09/21 08:13 Dose: 125 mcg Documented by: Gabapentin (Gabapentin 100 Mg Cap) 200 mg PO DAILY [facility] Last Admin: 04/09/21 08:12 Dose: 200 mg Documented by: Guaifenesin (Guaifenesin 600 Mg Tablet.Er) 600 mg PO QID [facility] Last Admin: 04/09/21 11:51 Dose: 600 mg Documented by: Hyoscyamine (Hyoscyamine Sulfate 0.125 Mg Tab) 0.125 mg PO Q8H PRN PRN Reason: DROOLING Insulin Aspart (Insulin Aspart (Novolog) 100 Unit/Ml Vial) 0 unit SQ AC-TID [facility]; Protocol Last Admin: 04/09/21 12:32 Dose: 6 unit Documented by: Insulin Detemir (Insulin Detemir (Levemir) 100 Unit/Ml Syr) 10 unit SQ HS [facility] Last Admin: 04/08/21 20:38 Dose: 10 unit Documented by: Isosorbide Mononitrate (Isosorbide Mononitrate Er 60 Mg Tab.Er.24h) 60 mg PO DAILY [facility] Last Admin: 04/09/21 08:13 Dose: 60 mg Documented by: Lactulose (Lactulose 20 Gm/30 Ml Cup) 20 gm PO DAILY PRN PRN Reason: Constipation Lorazepam (Lorazepam 1 Mg Tab) 1 mg PO HS PRN PRN Reason: Insomnia Last Admin: 04/08/21 20:15 Dose: 1 mg Documented by: Magnesium Hydroxide (Magnesium Hydroxide 2,400 Mg/10 Ml Cup) 2,400 mg PO DAILY PRN PRN Reason: Constipation Melatonin (Melatonin 3 Mg Tablet) 3 mg PO HS PRN PRN Reason: Insomnia Metformin HCl (Metformin 500 Mg Tab) 500 mg PO AC-BID [facility] Last Admin: 04/09/21 08:13 Dose: 500 mg Documented by: Methylprednisolone Sodium Succinate (Methylprednisolone Sod Succi 125 Mg/2 Ml Vial) 60 mg IV Q6HR [facility] Last Admin: 04/09/21 11:50 Dose: 60 mg Documented by: Metoprolol Tartrate (Metoprolol Tartrate 12.5 Mg Tab) 12.5 mg PO BID [facility] Last Admin: 04/09/21 08:13 Dose: 12.5 mg Documented by: Multivitamins/Minerals (Vit A,C & L-Uqmnhd-Pbvhwkti 1 Each Tab) 1 each PO DAILY [facility] Last Admin: 04/09/21 08:14 Dose: 1 each Documented by: Naloxone HCl (Naloxone 0.4 Mg/Ml 1 Ml Vial) 0.2 mg IV Q2M PRN PRN Reason: Opioid Reversal Ondansetron HCl (Ondansetron 4 Mg/2 Ml Vial) 4 mg IVP Q8HR PRN PRN Reason: Nausea And Vomiting Oxybutynin Chloride (Oxybutynin Xl 5 Mg Tab.Er.24) 5 mg PO BID [facility] Last Admin: 04/09/21 08:13 Dose: 5 mg Documented by: Zinc Sulfate (Zinc Sulfate 220 Mg Cap) 220 mg PO DAILY [facility] Last Admin: 04/09/21 08:44 Dose: 220 mg Documented by: Past medical history to include: COVID-19 positive diagnosed on 04/03/2021. Persistent bronchial asthma, diabetes mellitus type 2, hypertension, hyperlipidemia, obesity, hiatal hernia, idiopathic peripheral neuropathy, GERD, schizoaffective disorder bipolar type, atrial fibrillation, macular degeneration, uterine cancer with hysterectomy, tardive dyskinesia, use a walker Social history: Lives at the [facility], does use a walker. Stopped drinking alcohol in 2006. Never smoked. Physical examination: VITAL SIGNS: 98, 73, 18, 122.75, 95% on 4 L GENERAL: Sitting up in a chair, awake LUNGS: Respiratory rate increased, PSYCH: Alert and oriented x3; mood and affect anxious. NEUROLOGICAL: Cranial nerves grossly intact; no facial asymmetry, moving all 4 limbs Breast exam per pulmonary nursing INVESTIGATIONS, reviewed in the clinical context: April 09: White count 16.7 hemoglobin 13 d-dimer 1.19 potassium 4.6 creatinine 0.85 CRP 1.2 April 08: D-dimer 1.39 CRP 1.8 April 07: D-dimer 1.37 CRP 2.6 April 06: D-dimer 1.4 CRP 5.2 White count 10.2 hemoglobin 13.4 platelets 185 sodium 139 potassium 3.6 creatinine 0.7 to AST 239 ALT 59 albumin 3.4 Troponin I: Less than 0.012 proBNP 314 EKG tracing personally reviewed by me-sinus rhythm. Rate 79. Nonspecific T- wave changes. Chest CTA: No PE. Infiltrates. Assessment and plan: -Acute COVID 19 pneumonitis, symptoms starting 4 days ago. Received vaccine: COVID-19. April 03 did receive monoclonal antibody.: Improving IV Solu-Medrol 60 mg every 6. Vitamin C vitamin D zinc. -Acute hypoxic respiratory failure with a pulse ox 90% on room air upon presentation: Slowly improving 4 L of nasal cannula. -Acute exacerbation of Moderate persistent asthma,: Slow to respond IV Solu-Medrol 60 mg every 6. Albuterol 4 puffs every 4. -Diabetes mellitus type 2, on oral hypoglycemic. Uncontrolled with hyperglycemia. metformin to 500 mg twice a day. 10 units of Levemir at night. -Essential Hypertension Lopressor 12.5 by mouth twice a day -Hyperlipidemia Lipitor 10 mg daily at bedtime -Diabetic peripheral neuropathy Neurontin 200 mg daily -GERD Tums when necessary -Paroxysmal atrial fibrillation currently sinus rhythm Lopressor 12.5 by mouth twice a day. Eliquis 5 mg twice a day -Schizoaffective disorder Clozaril 300 mg daily at bedtime Celexa 40 mg daily -Chronic urinary stress incontinence Ditropan XL 5 mg twice a day IV Solu-Medrol every 6 Albuterol 4 puffs every 4. Mucinex. Oxygen supplementation. Follow with pulmonary. Discussed with patient.
[2021-04-09 16:24] LABS: Glucose,Whole Blood 155 mg/dL (75-99)
[2021-04-09 20:22] LABS: Glucose,Whole Blood 151 mg/dL (75-99)
[2021-04-09] MEDS: INSULIN DETEMIR (LEVEMIR) 100 UNIT/ML SYR SQ SCH (20:58)
[2021-04-09] MEDS: ATORVASTATIN 10 MG TAB PO SCH (20:59)
[2021-04-09] MEDS: cloZAPine 100 MG TAB PO SCH (20:59)
[2021-04-10] MEDS: methylPREDNISolone SOD SUCCI 125 MG/2 ML VIAL IV SCH ×4 (00:35→21:35)
[2021-04-10] MEDS: ALBUTEROL HFA INHALER INHALATION SCH ×5 (03:28→21:13)
[2021-04-10 07:12] LABS: Glucose,Whole Blood 143 mg/dL (75-99)
[2021-04-10] MEDS: ZINC SULFATE 220 MG CAP PO SCH (07:26)
[2021-04-10] MEDS: DIGOXIN 125 MCG TAB PO SCH (07:26)
[2021-04-10] MEDS: METOPROLOL TARTRATE 12.5 MG TAB PO SCH ×2 (07:26→21:32)
[2021-04-10] MEDS: CITALOPRAM HYDROBROMIDE 20 MG TAB PO SCH (07:26)
[2021-04-10] MEDS: ASCORBIC ACID 500 MG TAB PO SCH ×2 (07:26→21:32)
[2021-04-10] MEDS: GABAPENTIN 100 MG CAP PO SCH (07:26)
[2021-04-10] MEDS: APIXABAN 5 MG TAB PO SCH ×2 (07:26→21:33)
[2021-04-10] MEDS: metFORMIN 500 MG TAB PO SCH ×2 (07:26→17:00)
[2021-04-10] MEDS: CHOLECALCIFEROL 25 MCG (1000 IU) TABLET PO SCH (07:27)
[2021-04-10] MEDS: OXYBUTYNIN XL 5 MG TAB.ER.24 PO SCH ×2 (07:27→21:32)
[2021-04-10] MEDS: VIT A,C & E-LUTEIN-MINERALS 1 EACH TAB PO SCH (07:27)
[2021-04-10] MEDS: guaiFENesin 600 MG TABLET.ER PO SCH ×4 (07:27→21:33)
[2021-04-10] MEDS: ISOSORBIDE MONONITRATE ER 60 MG TAB.ER.24H PO SCH (07:27)
[2021-04-10] MEDS: INSULIN ASPART (NovoLOG) 100 UNIT/ML VIAL SQ SCH ×3 (07:27→17:00)
[2021-04-10] MEDS: CYANOCOBALAMIN 500 MCG TAB PO SCH (07:27)
[2021-04-10] MEDS: SYMBICORT 160-4.5 MCG INHALER INHALATION SCH ×2 (09:23→21:14)
[2021-04-10] MEDS ORDERED: FUROSEMIDE 10 MG/ML 4 ML VIAL IV STA (10:26)
[2021-04-10 11:52] LABS: Glucose,Whole Blood 160 mg/dL (75-99)
--- NOTE | 2021-04-10 13:55 | P.PN ---
Subjective Progress Note Date: 04/10/21 Principal diagnosis: Acute exacerbation of COPD, COVID-19 pneumonia 65-year-old female patient, lives in an [facility] home, already vaccinated with Moderna 2 vaccines, has multiple medical problems and comorbidities an extensive psychiatric history and she is essentially residing at the [facility] home. The patient was in the hospital on 04/03/2021 and at that time she was diagnosed having COVID 19 related infection and based on her comorbidities, the patient was given monoclonal antibodies and the patient was discharged. She came back today hospital because of cough and shortness of breath and fever. Her CT angiogram was completed and there is no evidence of any pulmonary embolism. Limited groundglass changes bilaterally. D-dimer is at 1.4 and her CRP level is at 5.2. LFTs are mildly elevated consistent with COVID 19 with an AST of 239, ALT of 59, the electrolytes are normal, normal renal function, white cell count is at 10.2 with a hemoglobin of 13.4. She is currently on oxygen at 4 L with a pulse ox of 97% and home O2 at 2 L which is her baseline. Note that the patient has been on Eliquis on long-term basis regarding chronic atrial fibrillation. On 04/07/2021 patient seen in follow-up on medical surgical floor, she is resting comfortably in bed, she is on 4 L of oxygen pulse ox is 92%, although she still has wheezing, and congested cough. She continues on Decadron 6 mg daily, She is on home dose Eliquis, and she is on COVID-19 vitamins. CTA chest was negative for any evidence of pulmonary embolism. Today's labs have been reviewed, d-dimer is relatively stable at 1.37, CRP is 2.6. LDH is still pending on today's labs, pro-calcitonin level is 0.07 On 04/08/2021 patient seen in follow-up on medical surgical floor. She is on 4 L of oxygen pulse ox 96%, still very rhonchorous, congested,, though slightly better from yesterday. Yesterday we switched her from Decadron to Solu-Medrol. Patient continues on Symbicort, albuterol, she is on home dose Eliquis 5 mg twice daily, she is on COVID-19 vitamins, Mucinex. No fever or chills, no acute events overnight. Today's labs have been noted, d-dimer is 1.39 and it is slightly improved from yesterday, and CRP is improving and is down to 1.8, LDH is still pending for today. On 04/09/2021 patient seen in follow-up on medical surgical floor. She still very congested and wheezy. She remains on 5 L of oxygen her pulse ox of 95%, she is dyspneic with exertion, she remains on IV Solu-Medrol, inhaled bronchodilators in the form of Symbicort and albuterol, she is on Eliquis for history of atrial fibrillation, she has been slow to improve, however oxygenation has remained relatively stable requiring 4-5 L of supplemental oxygen in the last few days. No fever or chills, no complaints of chest discomfort. Chest x-ray today showing minimal patchy residual airspace disease. Today's labs have been reviewed, white blood cell, 16.7, hemoglobin is 13, d- dimer is 1.19, electrolytes are within normal limits, BUN is 21 creatinine 0.85, inflammatory markers are improving. On 04/10/2021 patient seen in follow-up on medical surgical floor, she still very congested with diffuse rhonchi and rales throughout, she remains on high- dose IV steroids Solu-Medrol 40 mg every 8 hours, she is on inhaled bronchodilators with Symbicort and albuterol, patient is breathing easier, but still quite congested. [place] any chest discomfort, yesterday's chest x-ray minimal patchy residual airspace disease. Patient has been on Mucinex 600 mg 4 times daily, and she is on COVID-19 vitamins and she is on oral anticoagulation the form of Eliquis for history of atrial fibrillation. Objective - Vital Signs Vital signs: Vital Signs Temp 98.1 F 04/10/21 10:00 Pulse 68 04/10/21 10:00 Resp 20 04/10/21 10:00 BP 124/81 04/10/21 10:00 Pulse Ox 95 04/10/21 05:42 Intake & Output 04/09/21 04/10/21 04/10/21 18:59 06:59 18:59 Other: Voiding Method Toilet Bedside Commode # Voids 3 4 - Exam GENERAL EXAM: Alert, very pleasant, 65-year-old white female, on 3 L of oxygen with pulse ox 96% comfortable in no apparent distress. HEAD: Normocephalic/atraumatic. EYES: Normal reaction of pupils, equal size. Conjunctiva pink, sclera white. NOSE: Clear with pink turbinates. THROAT: No erythema or exudates. NECK: No masses, no JVD, no thyroid enlargement, no adenopathy. CHEST: No chest wall deformity. Symmetrical expansion. LUNGS: Equal air entry with diffuse rhonchi and rales throughout the lung doyle CVS: Regular rate and rhythm, normal S1 and S2, no gallops, no murmurs, no rubs ABDOMEN: Soft, nontender. No hepatosplenomegaly, normal bowel sounds, no guardi ng or rigidity. EXTREMITIES: No clubbing, no edema, no cyanosis, 2+ pulses and upper and lower extremities. MUSCULOSKELETAL: Muscle strength and tone normal. SPINE: No scoliosis or deformity SKIN: No rashes CENTRAL NERVOUS SYSTEM: Alert and oriented -3. No focal deficits, tone is normal in all 4 extremities. PSYCHIATRIC: Alert and oriented -3. Appropriate affect. Intact judgment and insight. - Labs CBC & Chem 7: 04/09/21 07:04 04/09/21 07:04 Labs: Abnormal Lab Results - Last 24 Hours (Table) 04/09/21 04/09/21 04/10/21 Range/Units 16:16 20:18 07:11 POC Glucose (mg/dL) 155 H 151 H 143 H (75-99) mg/dL 04/10/21 Range/Units 11:51 POC Glucose (mg/dL) 160 H (75-99) mg/dL Assessment and Plan Plan: Assessment: #1. Acute COVID-19 pneumonia, with limited groundglass changes bilaterally. Patient has completed against COVID-19 with MRNA vaccine. Patient received monoclonal antibodies on 04/03/2021, currently is on 3 L of oxygen #2. Acute exacerbation of COPD #3. Mediastinal lymph node calcification with questionable bronchial with adjac ent to the right lower lobe bronchus a marker of a previous granulomatous infection of the lung #4. Elevated inflammatory markers related to acute COVID-19 pneumonia #5. Acute on top of chronic hypoxic respiratory failure and shortness of breath #6. Chronic bronchial asthma with some exacerbation #7. History of paroxysmal atrial fibrillation, currently in sinus mechanism, on Eliquis #7. History of schizophrenia #8. Hypertension #9. Diabetes mellitus type 2 #10. Hyperlipidemia #11. Chronic lower extremity edema #12. Previous history of left axillary abscess/cellulitis with MSSA post I&D #13. History of shingles #14. Macular degeneration #15. History of coronary artery disease with 50% lesion in the LAD #16. Peripheral neuropathy #17. Chronic anxiety #18. Chronic migraines Plan: Still wheezy and congested Continue IV Solu-Medrol Continue inhaled bronchodilators Give one-time dose of IV Lasix Continue Eliquis Continue multivitamins Follow-up chest x-ray has been reviewed Patient is improving, FiO2 is down to 3 L however still wheezy and congested Continue IV steroids will try to diurese the patient Will continue to follow I performed a history & physical examination of the patient and discussed their management with my nurse practitioner, Maryann Bradford. I reviewed the nurse practitioner's note and agree with the documented findings and plan of care. Lung sounds are positive for diffuse wheezes throughout the lung doyle. The findings and the impression was discussed with the patient. I attest to the documentation by the nurse practitioner. Time with Patient: Less than 30
[2021-04-10 15:04] VITALS: BMI 27.6
[2021-04-10] MEDS ORDERED: methylPREDNISolone SOD SUCCI 40 MG/ML 1 ML VIAL IV SCH (16:00)
[2021-04-10 16:52] LABS: Glucose,Whole Blood 161 mg/dL (75-99)
--- NOTE | 2021-04-10 17:49 | P.PN ---
Progress Note - Text Progress Note Date: 04/10/21 Chief Complaint: Congested cough fever History of presenting complaint: pleasant 65-year-old patient of visiting physician Dr. Gomes. Resident of [facility] . Does use a walker - baseline to get about. Chronic stable medical conditions include asthma diabetes mellitus type 2, hypertension, hyperlipidemia, hiatal hernia, peripheral neuropathy, schizoaffective disorder, GERD. Patient 4 days started off with cough shortness of breath. Fever chills. Headaches. Bodyaches. Poor appetite. Symptoms have been progressive. Patient given to the ER 2 days ago. Had a fever to 102.4. Pulse ox was 94% on room air. X-ray showed worse in gestation. Patient has received vaccination for COVID-19. come back positive for the same. Received monoclonal antibodies. symptoms progressed to get worse. Patient felt so weak she started to fall. Decided to come back in. Admitted with COVID 19 pneumonitis, acute hypoxic respiratory failure, acute asthma exacerbation. Patient is already on eliquis. Placed on IV Solu-Medrol. April 06: Sitting up in a chair. Some improvement in breathing. Eating some. Cough. Tired. April 07: Sitting up in a chair. Oral intake improved. Some shortness of breath. On 4 L of nasal cannula. IV Solu-Medrol increased by pulmonary. April 08: Up in a chair. Congested chest. Shortness of breath. Eating 50- 100%. On 4 L of nasal cannula. April 09: Up in a chair. Eating fair. Breathing a bit better. 4 L of nasal cannula. Some cough. April 10: Sitting up. Some shortness of breath. Variable oral intake. On 3 L nasal cannula. Solu-Medrol cutback to 40 mg every 8. Dose of IV Lasix given by pulmonary. Review of systems: Was done for constitutional, cardiovascular, GI, pulmonary. relevant finding as above Active Medications Acetaminophen (Acetaminophen Tab 325 Mg Tab) 650 mg PO Q6HR PRN PRN Reason: Mild Pain or Fever > 100.5 Last Admin: 04/08/21 19:45 Dose: 650 mg Documented by: Al Hydroxide/Mg Hydroxide (Mag Hydrox/Al Hydrox/Simeth 30 Ml Cup) 15 ml PO Q6HR PRN PRN Reason: Indigestion Albuterol Sulfate (Albuterol Hfa Inhaler) 4 puff INHALATION RT-Q4H AMADA Last Admin: 04/10/21 16:39 Dose: 4 puff Documented by: Apixaban (Apixaban 5 Mg Tab) 5 mg PO BID [facility]; Protocol Last Admin: 04/10/21 07:26 Dose: 5 mg Documented by: Ascorbic Acid (Ascorbic Acid 500 Mg Tab) 500 mg PO BID [facility] Last Admin: 04/10/21 07:26 Dose: 500 mg Documented by: Atorvastatin Calcium (Atorvastatin 10 Mg Tab) 10 mg PO HS [facility] Last Admin: 04/09/21 20:59 Dose: 10 mg Documented by: Budesonide/Formoterol Fumarate (Symbicort 160-4.5 Mcg Inhaler) 2 puff INHALATION RT-BID [facility] Last Admin: 04/10/21 09:23 Dose: 2 puff Documented by: Calcium Carbonate/Glycine (Calcium Carbonate 500 Mg Chewable) 1,000 mg PO Q4HR PRN PRN Reason: Dyspepsia Cholecalciferol (Cholecalciferol 25 Mcg (1000 Iu) Tablet) 100 mcg PO DAILY [facility] Last Admin: 04/10/21 07:27 Dose: 100 mcg Documented by: Citalopram Hydrobromide (Citalopram Hydrobromide 20 Mg Tab) 40 mg PO DAILY [facility] Last Admin: 04/10/21 07:26 Dose: 40 mg Documented by: Clozapine (Clozapine 100 Mg Tab) 300 mg PO [facility] Stop: 04/16/21 23:59 Cyanocobalamin (Cyanocobalamin 500 Mcg Tab) 1,000 mcg PO DAILY [facility] Last Admin: 04/10/21 07:27 Dose: 1,000 mcg Documented by: Digoxin (Digoxin 125 Mcg Tab) 125 mcg PO DAILY [facility] Last Admin: 04/10/21 07:26 Dose: 125 mcg Documented by: Gabapentin (Gabapentin 100 Mg Cap) 200 mg PO DAILY [facility] Last Admin: 04/10/21 07:26 Dose: 200 mg Documented by: Guaifenesin (Guaifenesin 600 Mg Tablet.Er) 600 mg PO QID [facility] Last Admin: 04/10/21 17:00 Dose: 600 mg Documented by: Hyoscyamine (Hyoscyamine Sulfate 0.125 Mg Tab) 0.125 mg PO Q8H PRN PRN Reason: DROOLING Insulin Aspart (Insulin Aspart (Novolog) 100 Unit/Ml Vial) 0 unit SQ AC-TID [facility]; Protocol Last Admin: 04/10/21 17:00 Dose: 3 unit Documented by: Insulin Detemir (Insulin Detemir (Levemir) 100 Unit/Ml Syr) 10 unit SQ HS [facility] Last Admin: 04/09/21 20:58 Dose: 10 unit Documented by: Isosorbide Mononitrate (Isosorbide Mononitrate Er 60 Mg Tab.Er.24h) 60 mg PO DAILY [facility] Last Admin: 04/10/21 07:27 Dose: 60 mg Documented by: Lactulose (Lactulose 20 Gm/30 Ml Cup) 20 gm PO DAILY PRN PRN Reason: Constipation Lorazepam (Lorazepam 1 Mg Tab) 1 mg PO HS PRN PRN Reason: Insomnia Last Admin: 04/08/21 20:15 Dose: 1 mg Documented by: Magnesium Hydroxide (Magnesium Hydroxide 2,400 Mg/10 Ml Cup) 2,400 mg PO DAILY PRN PRN Reason: Constipation Melatonin (Melatonin 3 Mg Tablet) 3 mg PO HS PRN PRN Reason: Insomnia Metformin HCl (Metformin 500 Mg Tab) 500 mg PO AC-BID [facility] Last Admin: 04/10/21 17:00 Dose: 500 mg Documented by: Methylprednisolone Sodium Succinate (Methylprednisolone Sod Succi 125 Mg/2 Ml Vial) 60 mg IV Q6HR [facility] Last Admin: 04/10/21 17:00 Dose: 60 mg Documented by: Metoprolol Tartrate (Metoprolol Tartrate 12.5 Mg Tab) 12.5 mg PO BID [facility] Last Admin: 04/10/21 07:26 Dose: 12.5 mg Documented by: Multivitamins/Minerals (Vit A,C & E-Zcyuzp-Eihnmmfn 1 Each Tab) 1 each PO DAILY [facility] Last Admin: 04/10/21 07:27 Dose: 1 each Documented by: Naloxone HCl (Naloxone 0.4 Mg/Ml 1 Ml Vial) 0.2 mg IV Q2M PRN PRN Reason: Opioid Reversal Ondansetron HCl (Ondansetron 4 Mg/2 Ml Vial) 4 mg IVP Q8HR PRN PRN Reason: Nausea And Vomiting Oxybutynin Chloride (Oxybutynin Xl 5 Mg Tab.Er.24) 5 mg PO BID [facility] Last Admin: 04/10/21 07:27 Dose: 5 mg Documented by: Zinc Sulfate (Zinc Sulfate 220 Mg Cap) 220 mg PO DAILY [facility] Last Admin: 04/10/21 07:26 Dose: 220 mg Documented by: Past medical history to include: COVID-19 positive diagnosed on 04/03/2021. Persistent bronchial asthma, diabetes mellitus type 2, hypertension, hyperlipidemia, obesity, hiatal hernia, idiopathic peripheral neuropathy, GERD, schizoaffective disorder bipolar type, atrial fibrillation, macular degeneration, uterine cancer with hysterectomy, tardive dyskinesia, use a walker Social history: Lives at the [facility], does use a walker. Stopped drinking alcohol in 2006. Never smoked. Physical examination: VITAL SIGNS: 98.1, 72, 20, 100/63, 93% on 3 L GENERAL: Sitting up in a chair, awake LUNGS: Respiratory rate increased, PSYCH: Alert and oriented x3; mood and affect anxious. NEUROLOGICAL: Cranial nerves grossly intact; no facial asymmetry, moving all 4 limbs Breast exam per pulmonary nursing INVESTIGATIONS, reviewed in the clinical context: April 09: White count 16.7 hemoglobin 13 d-dimer 1.19 potassium 4.6 creatinine 0.85 CRP 1.2 April 08: D-dimer 1.39 CRP 1.8 April 07: D-dimer 1.37 CRP 2.6 April 06: D-dimer 1.4 CRP 5.2 White count 10.2 hemoglobin 13.4 platelets 185 sodium 139 potassium 3.6 creatinine 0.7 to AST 239 ALT 59 albumin 3.4 Troponin I: Less than 0.012 proBNP 314 EKG tracing personally reviewed by me-sinus rhythm. Rate 79. Nonspecific T- wave changes. Chest CTA: No PE. Infiltrates. Assessment and plan: -Acute COVID 19 pneumonitis, symptoms starting 4 days ago. Received vaccine: COVID-19. April 03 did receive monoclonal antibody.: Improving IV Solu-Medrol 40 mg every 8. Vitamin C vitamin D zinc. -Acute hypoxic respiratory failure with a pulse ox 90% on room air upon presentation: Slowly improving 3 L of nasal cannula. -Acute exacerbation of Moderate persistent asthma,: Slow to respond IV Solu-Medrol 40 mg every 8. Albuterol 4 puffs every 4. -Diabetes mellitus type 2, on oral hypoglycemic. Uncontrolled with hyperglycemia. metformin to 500 mg twice a day. 10 units of Levemir at night. -Essential Hypertension Lopressor 12.5 by mouth twice a day -Hyperlipidemia Lipitor 10 mg daily at bedtime -Diabetic peripheral neuropathy Neurontin 200 mg daily -GERD Tums when necessary -Paroxysmal atrial fibrillation currently sinus rhythm Lopressor 12.5 by mouth twice a day. Eliquis 5 mg twice a day -Schizoaffective disorder Clozaril 300 mg daily at bedtime Celexa 40 mg daily -Chronic urinary stress incontinence Ditropan XL 5 mg twice a day IV Solu-Medrol every 8 Albuterol 4 puffs every 4. Mucinex. 3 L Oxygen supplementation. Follow with pulmonary. Discussed with patient.
[2021-04-10 20:37] LABS: Glucose,Whole Blood 189 mg/dL (75-99)
[2021-04-10] MEDS: ONDANSETRON 4 MG/2 ML VIAL IVP PRN (21:32)
[2021-04-10] MEDS: INSULIN DETEMIR (LEVEMIR) 100 UNIT/ML SYR SQ SCH (21:32)
[2021-04-10] MEDS: LORazepam 1 MG TAB PO PRN (21:32)
[2021-04-10] MEDS: ATORVASTATIN 10 MG TAB PO SCH (21:32)
[2021-04-10] MEDS: MELATONIN 3 MG TABLET PO PRN (21:33)
[2021-04-10] MEDS: cloZAPine 100 MG TAB PO SCH (21:36)
[2021-04-11] MEDS: ALBUTEROL HFA INHALER INHALATION SCH ×7 (00:40→23:40)
[2021-04-11] MEDS: methylPREDNISolone SOD SUCCI 125 MG/2 ML VIAL IV SCH ×4 (06:17→21:23)
[2021-04-11 06:48] LABS: Glucose,Whole Blood 158 mg/dL (75-99)
[2021-04-11] MEDS: SYMBICORT 160-4.5 MCG INHALER INHALATION SCH ×2 (08:06→20:26)
[2021-04-11] MEDS: ISOSORBIDE MONONITRATE ER 60 MG TAB.ER.24H PO SCH (08:15)
[2021-04-11] MEDS: ZINC SULFATE 220 MG CAP PO SCH (08:15)
[2021-04-11] MEDS: INSULIN ASPART (NovoLOG) 100 UNIT/ML VIAL SQ SCH ×3 (08:15→16:56)
[2021-04-11] MEDS: CHOLECALCIFEROL 25 MCG (1000 IU) TABLET PO SCH (08:16)
[2021-04-11] MEDS: GABAPENTIN 100 MG CAP PO SCH (08:16)
[2021-04-11] MEDS: CITALOPRAM HYDROBROMIDE 20 MG TAB PO SCH (08:17)
[2021-04-11] MEDS: METOPROLOL TARTRATE 12.5 MG TAB PO SCH ×2 (08:17→21:26)
[2021-04-11] MEDS: VIT A,C & E-LUTEIN-MINERALS 1 EACH TAB PO SCH (08:17)
[2021-04-11] MEDS: metFORMIN 500 MG TAB PO SCH ×2 (08:17→16:56)
[2021-04-11] MEDS: ASCORBIC ACID 500 MG TAB PO SCH ×2 (08:17→21:25)
[2021-04-11] MEDS: guaiFENesin 600 MG TABLET.ER PO SCH ×4 (08:18→21:25)
[2021-04-11] MEDS: DIGOXIN 125 MCG TAB PO SCH (08:18)
[2021-04-11] MEDS: CYANOCOBALAMIN 500 MCG TAB PO SCH (08:18)
[2021-04-11] MEDS: APIXABAN 5 MG TAB PO SCH ×2 (08:19→21:25)
[2021-04-11] MEDS: OXYBUTYNIN XL 5 MG TAB.ER.24 PO SCH ×2 (08:19→21:25)
--- NOTE | 2021-04-11 10:01 | XR ---
EXAMINATION TYPE: XR chest 1V portable DATE OF EXAM: 04/11/2021 COMPARISON: Chest x-ray 04/09/2021 HISTORY: Covid 19 TECHNIQUE: Single frontal view of the chest is obtained. FINDINGS: Patchy densities persist bilaterally. No evident pneumothorax or pleural effusion. Cardiac mediastinal silhouette is stable. Postoperative changes are noted in the cervical spine, right upper quadrant. IMPRESSION: Findings similar to prior exam, correlate for pneumonia
[2021-04-11 11:28] LABS: Glucose,Whole Blood 133 mg/dL (75-99)
--- NOTE | 2021-04-11 12:29 | P.PN ---
Subjective Progress Note Date: 04/11/21 Principal diagnosis: Acute exacerbation of COPD, COVID-19 pneumonia 65-year-old female patient, lives in an [facility] home, already vaccinated with Moderna 2 vaccines, has multiple medical problems and comorbidities an extensive psychiatric history and she is essentially residing at the [facility] home. The patient was in the hospital on 04/03/2021 and at that time she was diagnosed having COVID 19 related infection and based on her comorbidities, the patient was given monoclonal antibodies and the patient was discharged. She came back today hospital because of cough and shortness of breath and fever. Her CT angiogram was completed and there is no evidence of any pulmonary embolism. Limited groundglass changes bilaterally. D-dimer is at 1.4 and her CRP level is at 5.2. LFTs are mildly elevated consistent with COVID 19 with an AST of 239, ALT of 59, the electrolytes are normal, normal renal function, white cell count is at 10.2 with a hemoglobin of 13.4. She is currently on oxygen at 4 L with a pulse ox of 97% and home O2 at 2 L which is her baseline. Note that the patient has been on Eliquis on long-term basis regarding chronic atrial fibrillation. On 04/07/2021 patient seen in follow-up on medical surgical floor, she is resting comfortably in bed, she is on 4 L of oxygen pulse ox is 92%, although she still has wheezing, and congested cough. She continues on Decadron 6 mg daily, She is on home dose Eliquis, and she is on COVID-19 vitamins. CTA chest was negative for any evidence of pulmonary embolism. Today's labs have been reviewed, d-dimer is relatively stable at 1.37, CRP is 2.6. LDH is still pending on today's labs, pro-calcitonin level is 0.07 On 04/08/2021 patient seen in follow-up on medical surgical floor. She is on 4 L of oxygen pulse ox 96%, still very rhonchorous, congested,, though slightly better from yesterday. Yesterday we switched her from Decadron to Solu-Medrol. Patient continues on Symbicort, albuterol, she is on home dose Eliquis 5 mg twice daily, she is on COVID-19 vitamins, Mucinex. No fever or chills, no acute events overnight. Today's labs have been noted, d-dimer is 1.39 and it is slightly improved from yesterday, and CRP is improving and is down to 1.8, LDH is still pending for today. On 04/09/2021 patient seen in follow-up on medical surgical floor. She still very congested and wheezy. She remains on 5 L of oxygen her pulse ox of 95%, she is dyspneic with exertion, she remains on IV Solu-Medrol, inhaled bronchodilators in the form of Symbicort and albuterol, she is on Eliquis for history of atrial fibrillation, she has been slow to improve, however oxygenation has remained relatively stable requiring 4-5 L of supplemental oxygen in the last few days. No fever or chills, no complaints of chest discomfort. Chest x-ray today showing minimal patchy residual airspace disease. Today's labs have been reviewed, white blood cell, 16.7, hemoglobin is 13, d- dimer is 1.19, electrolytes are within normal limits, BUN is 21 creatinine 0.85, inflammatory markers are improving. On 04/10/2021 patient seen in follow-up on medical surgical floor, she still very congested with diffuse rhonchi and rales throughout, she remains on high- dose IV steroids Solu-Medrol 40 mg every 8 hours, she is on inhaled bronchodilators with Symbicort and albuterol, patient is breathing easier, but still quite congested. [place] any chest discomfort, yesterday's chest x-ray minimal patchy residual airspace disease. Patient has been on Mucinex 600 mg 4 times daily, and she is on COVID-19 vitamins and she is on oral anticoagulation the form of Eliquis for history of atrial fibrillation. On 04/11/2021 patient seen in follow-upon medical surgical floor. Feeling and breathing better today, although still quite rhonchorous on physical exam, sounds slightly better. Yesterday we give a dose of diuretics, she continues on Mucinex 600 mg 4 times daily, she continues on IV Solu-Medrol, inhaled bronchodilators, starting to slowly improve. Follow-up chest x-ray as been reviewed still showing patchy densities bilaterally. Overall stable exam. Patient has been ambulating with a walker, does get short of breath exertion, no acute distress. She's had no acute events overnight. Objective - Vital Signs Vital signs: Vital Signs Temp 97.6 F 04/11/21 09:04 Pulse 77 04/11/21 09:04 Resp 18 04/11/21 09:04 BP 117/75 04/11/21 09:04 Pulse Ox 93 L 04/11/21 09:04 Intake & Output 04/10/21 04/11/21 04/11/21 18:59 06:59 18:59 Intake Total 480 Output Total 1000 Balance -520 Weight 73.028 kg Intake: Oral 480 Output: Urine 1000 Other: Voiding Method Toilet Bedside Commode # Voids 4 3 - Exam GENERAL EXAM: Alert, very pleasant, 65-year-old white female, on 3 L of oxygen with pulse ox 93% comfortable in no apparent distress. HEAD: Normocephalic/atraumatic. EYES: Normal reaction of pupils, equal size. Conjunctiva pink, sclera white. NOSE: Clear with pink turbinates. THROAT: No erythema or exudates. NECK: No masses, no JVD, no thyroid enlargement, no adenopathy. CHEST: No chest wall deformity. Symmetrical expansion. LUNGS: Equal air entry with diffuse rhonchi and rales throughout the lung doyle CVS: Regular rate and rhythm, normal S1 and S2, no gallops, no murmurs, no rubs ABDOMEN: Soft, nontender. No hepatosplenomegaly, normal bowel sounds, no guarding or rigidity. EXTREMITIES: No clubbing, no edema, no cyanosis, 2+ pulses and upper and lower extremities. MUSCULOSKELETAL: Muscle strength and tone normal. SPINE: No scoliosis or deformity SKIN: No rashes CENTRAL NERVOUS SYSTEM: Alert and oriented -3. No focal deficits, tone is normal in all 4 extremities. PSYCHIATRIC: Alert and oriented -3. Appropriate affect. Intact judgment and insight. - Labs CBC & Chem 7: 04/09/21 07:04 04/09/21 07:04 Labs: Abnormal Lab Results - Last 24 Hours (Table) 04/10/21 04/10/21 04/11/21 Range/Units 16:51 20:36 06:46 POC Glucose (mg/dL) 161 H 189 H 158 H (75-99) mg/dL 04/11/21 Range/Units 11:26 POC Glucose (mg/dL) 133 H (75-99) mg/dL Assessment and Plan Plan: Assessment: #1. Acute COVID-19 pneumonia, with limited groundglass changes bilaterally. Patient has completed against COVID-19 with MRNA vaccine. Patient received monoclonal antibodies on 04/03/2021, currently is on 3 L of oxygen #2. Acute exacerbation of COPD #3. Mediastinal lymph node calcification with questionable bronchial with adjacent to the right lower lobe bronchus a marker of a previous granulomatous infection of the lung #4. Elevated inflammatory markers related to acute COVID-19 pneumonia #5. Acute on top of chronic hypoxic respiratory failure and shortness of breath #6. Chronic bronchial asthma with some exacerbation #7. History of paroxysmal atrial fibrillation, currently in sinus mechanism, on Eliquis #7. History of schizophrenia #8. Hypertension #9. Diabetes mellitus type 2 #10. Hyperlipidemia #11. Chronic lower extremity edema #12. Previous history of left axillary abscess/cellulitis with MSSA post I&D #13. History of shingles #14. Macular degeneration #15. History of coronary artery disease with 50% lesion in the LAD #16. Peripheral neuropathy #17. Chronic anxiety #18. Chronic migraines Plan: Breathing easier today, Less wheezy, still congested Today's chest x-ray has been reviewed showing stable patchy densities bilaterally No fever or chills Continue current medical treatment Continue IV steroids and inhaled bronchodilators, COVID-19 vitamins I performed a history & physical examination of the patient and discussed their management with my nurse practitioner, Maryann Bradford. I reviewed the nurse practitioner's note and agree with the documented findings and plan of care. Lung sounds are positive for diffuse wheezes throughout the lung doyle. The findings and the impression was discussed with the patient. I attest to the documentation by the nurse practitioner. Time with Patient: Less than 30
--- NOTE | 2021-04-11 12:36 | P.PN ---
Progress Note - Text Progress Note Date: 04/11/21 Chief Complaint: Congested cough fever History of presenting complaint: pleasant 65-year-old patient of visiting physician Dr. Gomes. Resident of [facility] . Does use a walker - baseline to get about. Chronic stable medical conditions include asthma diabetes mellitus type 2, hypertension, hyperlipidemia, hiatal hernia, peripheral neuropathy, schizoaffective disorder, GERD. Patient 4 days started off with cough shortness of breath. Fever chills. Headaches. Bodyaches. Poor appetite. Symptoms have been progressive. Patient given to the ER 2 days ago. Had a fever to 102.4. Pulse ox was 94% on room air. X-ray showed worse in gestation. Patient has received vaccination for COVID-19. come back positive for the same. Received monoclonal antibodies. symptoms progressed to get worse. Patient felt so weak she started to fall. Decided to come back in. Admitted with COVID 19 pneumonitis, acute hypoxic respiratory failure, acute asthma exacerbation. Patient is already on eliquis. Placed on IV Solu-Medrol. April 06: Sitting up in a chair. Some improvement in breathing. Eating some. Cough. Tired. April 07: Sitting up in a chair. Oral intake improved. Some shortness of breath. On 4 L of nasal cannula. IV Solu-Medrol increased by pulmonary. April 08: Up in a chair. Congested chest. Shortness of breath. Eating 50- 100%. On 4 L of nasal cannula. April 09: Up in a chair. Eating fair. Breathing a bit better. 4 L of nasal cannula. Some cough. April 10: Sitting up. Some shortness of breath. Variable oral intake. On 3 L nasal cannula. Solu-Medrol cutback to 40 mg every 8. Dose of IV Lasix given by pulmonary. April 11: Sitting up in a chair. Eating some. On 3 L nasal cannula. Tired. Some shortness of breath. Review of systems: Was done for constitutional, cardiovascular, GI, pulmonary. relevant finding as above Active Medications Acetaminophen (Acetaminophen Tab 325 Mg Tab) 650 mg PO Q6HR PRN PRN Reason: Mild Pain or Fever > 100.5 Last Admin: 04/08/21 19:45 Dose: 650 mg Documented by: Al Hydroxide/Mg Hydroxide (Mag Hydrox/Al Hydrox/Simeth 30 Ml Cup) 15 ml PO Q6HR PRN PRN Reason: Indigestion Albuterol Sulfate (Albuterol Hfa Inhaler) 4 puff INHALATION RT-Q4H [facility] Last Admin: 04/11/21 12:24 Dose: 4 puff Documented by: Apixaban (Apixaban 5 Mg Tab) 5 mg PO BID [facility]; Protocol Last Admin: 04/11/21 08:19 Dose: 5 mg Documented by: Ascorbic Acid (Ascorbic Acid 500 Mg Tab) 500 mg PO BID [facility] Last Admin: 04/11/21 08:17 Dose: 500 mg Documented by: Atorvastatin Calcium (Atorvastatin 10 Mg Tab) 10 mg PO HS [facility] Last Admin: 04/10/21 21:32 Dose: 10 mg Documented by: Budesonide/Formoterol Fumarate (Symbicort 160-4.5 Mcg Inhaler) 2 puff INHALATION RT-BID [facility] Last Admin: 04/11/21 08:06 Dose: 2 puff Documented by: Calcium Carbonate/Glycine (Calcium Carbonate 500 Mg Chewable) 1,000 mg PO Q4HR PRN PRN Reason: Dyspepsia Cholecalciferol (Cholecalciferol 25 Mcg (1000 Iu) Tablet) 100 mcg PO DAILY [facility] Last Admin: 04/11/21 08:16 Dose: 100 mcg Documented by: Citalopram Hydrobromide (Citalopram Hydrobromide 20 Mg Tab) 40 mg PO DAILY [facility] Last Admin: 04/11/21 08:17 Dose: 40 mg Documented by: Clozapine (Clozapine 100 Mg Tab) 300 mg PO [facility] Stop: 04/16/21 23:59 Last Admin: 04/10/21 21:36 Dose: 300 mg Documented by: Cyanocobalamin (Cyanocobalamin 500 Mcg Tab) 1,000 mcg PO DAILY [facility] Last Admin: 04/11/21 08:18 Dose: 1,000 mcg Documented by: Digoxin (Digoxin 125 Mcg Tab) 125 mcg PO DAILY [facility] Last Admin: 04/11/21 08:18 Dose: 125 mcg Documented by: Gabapentin (Gabapentin 100 Mg Cap) 200 mg PO DAILY [facility] Last Admin: 04/11/21 08:16 Dose: 200 mg Documented by: Guaifenesin (Guaifenesin 600 Mg Tablet.Er) 600 mg PO QID [facility] Last Admin: 04/11/21 11:42 Dose: 600 mg Documented by: Hyoscyamine (Hyoscyamine Sulfate 0.125 Mg Tab) 0.125 mg PO Q8H PRN PRN Reason: DROOLING Insulin Aspart (Insulin Aspart (Novolog) 100 Unit/Ml Vial) 0 unit SQ AC-TID [facility]; Protocol Last Admin: 04/11/21 11:42 Dose: 1 unit Documented by: Insulin Detemir (Insulin Detemir (Levemir) 100 Unit/Ml Syr) 10 unit SQ HS [facility] Last Admin: 04/10/21 21:32 Dose: 10 unit Documented by: Isosorbide Mononitrate (Isosorbide Mononitrate Er 60 Mg Tab.Er.24h) 60 mg PO DAILY [facility] Last Admin: 04/11/21 08:15 Dose: 60 mg Documented by: Lactulose (Lactulose 20 Gm/30 Ml Cup) 20 gm PO DAILY PRN PRN Reason: Constipation Lorazepam (Lorazepam 1 Mg Tab) 1 mg PO HS PRN PRN Reason: Insomnia Last Admin: 04/10/21 21:32 Dose: 1 mg Documented by: Magnesium Hydroxide (Magnesium Hydroxide 2,400 Mg/10 Ml Cup) 2,400 mg PO DAILY PRN PRN Reason: Constipation Melatonin (Melatonin 3 Mg Tablet) 3 mg PO HS PRN PRN Reason: Insomnia Last Admin: 04/10/21 21:33 Dose: 3 mg Documented by: Metformin HCl (Metformin 500 Mg Tab) 500 mg PO AC-BID [facility] Last Admin: 04/11/21 08:17 Dose: 500 mg Documented by: Methylprednisolone Sodium Succinate (Methylprednisolone Sod Succi 125 Mg/2 Ml Vial) 60 mg IV Q6HR [facility] Last Admin: 04/11/21 11:42 Dose: 60 mg Documented by: Metoprolol Tartrate (Metoprolol Tartrate 12.5 Mg Tab) 12.5 mg PO BID [facility] Last Admin: 04/11/21 08:17 Dose: 12.5 mg Documented by: Multivitamins/Minerals (Vit A,C & J-Lbptuj-Icxwqfld 1 Each Tab) 1 each PO DAILY [facility] Last Admin: 04/11/21 08:17 Dose: 1 each Documented by: Naloxone HCl (Naloxone 0.4 Mg/Ml 1 Ml Vial) 0.2 mg IV Q2M PRN PRN Reason: Opioid Reversal Ondansetron HCl (Ondansetron 4 Mg/2 Ml Vial) 4 mg IVP Q8HR PRN PRN Reason: Nausea And Vomiting Last Admin: 04/10/21 21:32 Dose: 4 mg Documented by: Oxybutynin Chloride (Oxybutynin Xl 5 Mg Tab.Er.24) 5 mg PO BID [facility] Last Admin: 04/11/21 08:19 Dose: 5 mg Documented by: Zinc Sulfate (Zinc Sulfate 220 Mg Cap) 220 mg PO DAILY [facility] Last Admin: 04/11/21 08:15 Dose: 220 mg Documented by: Past medical history to include: COVID-19 positive diagnosed on 04/03/2021. Persistent bronchial asthma, diabetes mellitus type 2, hypertension, hyperlipidemia, obesity, hiatal hernia, idiopathic peripheral neuropathy, GERD, schizoaffective disorder bipolar type, atrial fibrillation, macular degeneration, uterine cancer with hysterectomy, tardive dyskinesia, use a walker Social history: Lives at the [facility], does use a walker. Stopped drinking alcohol in 2006. Never smoked. Physical examination: VITAL SIGNS: 97.6, 77, 18, 11 7 x 75, 93% on 3 L GENERAL: Sitting up in a chair, awake, tired LUNGS: Respiratory rate increased, PSYCH: Alert and oriented x3; mood and affect anxious. NEUROLOGICAL: Cranial nerves grossly intact; no facial asymmetry, moving all 4 limbs Rest of the exam per pulmonary and nursing INVESTIGATIONS, reviewed in the clinical context: April 09: White count 16.7 hemoglobin 13 d-dimer 1.19 potassium 4.6 creatinine 0.85 CRP 1.2 April 08: D-dimer 1.39 CRP 1.8 April 07: D-dimer 1.37 CRP 2.6 April 06: D-dimer 1.4 CRP 5.2 White count 10.2 hemoglobin 13.4 platelets 185 sodium 139 potassium 3.6 creatinine 0.7 to AST 239 ALT 59 albumin 3.4 Troponin I: Less than 0.012 proBNP 314 EKG tracing personally reviewed by me-sinus rhythm. Rate 79. Nonspecific T- wave changes. Chest CTA: No PE. Infiltrates. Assessment and plan: -Acute COVID 19 pneumonitis, symptoms starting 4 days ago. Received vaccine: COVID-19. April 03 did receive monoclonal antibody.: Improving slowly IV Solu-Medrol 40 mg every 8. Vitamin C vitamin D zinc. -Acute hypoxic respiratory failure with a pulse ox 90% on room air upon presentation: Slowly improving 3 L of nasal cannula. -Acute exacerbation of Moderate persistent asthma,: Slow to respond IV Solu-Medrol 40 mg every 8. Albuterol 4 puffs every 4. -Diabetes mellitus type 2, on oral hypoglycemic. Uncontrolled with hyperglycemia. metformin to 500 mg twice a day. 10 units of Levemir at night. -Essential Hypertension Lopressor 12.5 by mouth twice a day -Hyperlipidemia Lipitor 10 mg daily at bedtime -Diabetic peripheral neuropathy Neurontin 200 mg daily -GERD Tums when necessary -Paroxysmal atrial fibrillation currently sinus rhythm Lopressor 12.5 by mouth twice a day. Eliquis 5 mg twice a day -Schizoaffective disorder Clozaril 300 mg daily at bedtime Celexa 40 mg daily -Chronic urinary stress incontinence Ditropan XL 5 mg twice a day IV Solu-Medrol every 8, Albuterol 4 puffs every 4. Mucinex. 3 L Oxygen supplementation. Follow with pulmonary. Discussed with patient.
[2021-04-11 16:29] LABS: Glucose,Whole Blood 195 mg/dL (75-99)
[2021-04-11] MEDS: BENZOCAINE/MENTHOL LOZENG 1 EACH LOZENGE MUCOUS MEM PRN ×2 (16:57→21:25)
[2021-04-11 20:47] LABS: Glucose,Whole Blood 195 mg/dL (75-99)
[2021-04-11] MEDS: cloZAPine 100 MG TAB PO SCH (21:25)
[2021-04-11] MEDS: MELATONIN 3 MG TABLET PO PRN (21:25)
[2021-04-11] MEDS: ATORVASTATIN 10 MG TAB PO SCH (21:25)
[2021-04-11] MEDS: LORazepam 1 MG TAB PO PRN (21:26)
[2021-04-11] MEDS: CALCIUM CARBONATE 500 MG CHEWABLE PO PRN (21:26)
[2021-04-11] MEDS: INSULIN DETEMIR (LEVEMIR) 100 UNIT/ML SYR SQ SCH (21:51)
[2021-04-12] MEDS: ALBUTEROL HFA INHALER INHALATION SCH ×5 (03:00→19:29)
[2021-04-12] MEDS: methylPREDNISolone SOD SUCCI 125 MG/2 ML VIAL IV SCH ×4 (06:05→22:45)
[2021-04-12 06:59] LABS: Glucose,Whole Blood 139 mg/dL (75-99)
[2021-04-12] MEDS: SYMBICORT 160-4.5 MCG INHALER INHALATION SCH ×2 (07:33→19:30)
[2021-04-12] MEDS: ZINC SULFATE 220 MG CAP PO SCH (07:40)
[2021-04-12] MEDS: CHOLECALCIFEROL 25 MCG (1000 IU) TABLET PO SCH (07:40)
[2021-04-12] MEDS: METOPROLOL TARTRATE 12.5 MG TAB PO SCH ×2 (07:40→22:45)
[2021-04-12] MEDS: CYANOCOBALAMIN 500 MCG TAB PO SCH (07:40)
[2021-04-12] MEDS: INSULIN ASPART (NovoLOG) 100 UNIT/ML VIAL SQ SCH ×3 (07:40→16:58)
[2021-04-12] MEDS: ISOSORBIDE MONONITRATE ER 60 MG TAB.ER.24H PO SCH (07:40)
[2021-04-12] MEDS: guaiFENesin 600 MG TABLET.ER PO SCH ×4 (07:40→22:45)
[2021-04-12] MEDS: CITALOPRAM HYDROBROMIDE 20 MG TAB PO SCH (07:40)
[2021-04-12] MEDS: APIXABAN 5 MG TAB PO SCH ×2 (07:41→22:47)
[2021-04-12] MEDS: GABAPENTIN 100 MG CAP PO SCH ×2 (07:41→11:54)
[2021-04-12] MEDS: OXYBUTYNIN XL 5 MG TAB.ER.24 PO SCH ×2 (07:41→22:47)
[2021-04-12] MEDS: metFORMIN 500 MG TAB PO SCH ×2 (07:41→16:58)
[2021-04-12] MEDS: ASCORBIC ACID 500 MG TAB PO SCH ×2 (07:41→22:45)
[2021-04-12] MEDS: VIT A,C & E-LUTEIN-MINERALS 1 EACH TAB PO SCH (07:42)
[2021-04-12] MEDS: DIGOXIN 125 MCG TAB PO SCH (07:42)
[2021-04-12 10:06] LABS: African American GFR (CKD) 81 (>60 ml/min/1.73 sqM); Anion Gap 7 mmol/L; Blood Urea Nitrogen 43 mg/dL (7-17); C Reactive Protein 0.7 mg/dL (<1.0); Calcium 9.5 mg/dL (8.4-10.2); Carbon Dioxide 26 mmol/L (22-30); Chloride 101 mmol/L (98-107); Glucose 179 mg/dL (74-99); Non-African American GFR(CKD) 70 (>60 ml/min/1.73 sqM); Potassium 4.6 mmol/L (3.5-5.1); Sodium 134 mmol/L (137-145)
[2021-04-12 11:43] LABS: Glucose,Whole Blood 125 mg/dL (75-99)
--- NOTE | 2021-04-12 13:18 | P.PN ---
Subjective Progress Note Date: 04/12/21 Principal diagnosis: COVID-19 pneumonia 65-year-old female patient, lives in an [facility] home, already vaccinated with Moderna 2 vaccines, has multiple medical problems and comorbidities an extensive psychiatric history and she is essentially residing at the [facility] home. The patient was in the hospital on 04/03/2021 and at that time she was diagnosed having COVID 19 related infection and based on her comorbidities, the patient was given monoclonal antibodies and the patient was discharged. She came back today hospital because of cough and shortness of breath and fever. Her CT angiogram was completed and there is no evidence of any pulmonary embolism. Limited groundglass changes bilaterally. D-dimer is at 1.4 and her CRP level is at 5.2. LFTs are mildly elevated consistent with COVID 19 with an AST of 239, ALT of 59, the electrolytes are normal, normal renal function, white cell count is at 10.2 with a hemoglobin of 13.4. She is currently on oxygen at 4 L with a pulse ox of 97% and home O2 at 2 L which is her baseline. Note that the patient has been on Eliquis on long-term basis regarding chronic atrial fibrillation. On 04/07/2021 patient seen in follow-up on medical surgical floor, she is resting comfortably in bed, she is on 4 L of oxygen pulse ox is 92%, although she still has wheezing, and congested cough. She continues on Decadron 6 mg daily, She is on home dose Eliquis, and she is on COVID-19 vitamins. CTA chest was negative for any evidence of pulmonary embolism. Today's labs have been reviewed, d-dimer is relatively stable at 1.37, CRP is 2.6. LDH is still pending on today's labs, pro-calcitonin level is 0.07 On 04/08/2021 patient seen in follow-up on medical surgical floor. She is on 4 L of oxygen pulse ox 96%, still very rhonchorous, congested,, though slightly better from yesterday. Yesterday we switched her from Decadron to Solu-Medrol. Patient continues on Symbicort, albuterol, she is on home dose Eliquis 5 mg twice daily, she is on COVID-19 vitamins, Mucinex. No fever or chills, no acute events overnight. Today's labs have been noted, d-dimer is 1.39 and it is slightly improved from yesterday, and CRP is improving and is down to 1.8, LDH is still pending for today. On 04/09/2021 patient seen in follow-up on medical surgical floor. She still very congested and wheezy. She remains on 5 L of oxygen her pulse ox of 95%, she is dyspneic with exertion, she remains on IV Solu-Medrol, inhaled bronchodilators in the form of Symbicort and albuterol, she is on Eliquis for history of atrial fibrillation, she has been slow to improve, however oxygenation has remained relatively stable requiring 4-5 L of supplemental oxygen in the last few days. No fever or chills, no complaints of chest discomfort. Chest x-ray today showing minimal patchy residual airspace disease. Today's labs have been reviewed, white blood cell, 16.7, hemoglobin is 13, d- dimer is 1.19, electrolytes are within normal limits, BUN is 21 creatinine 0.85, inflammatory markers are improving. On 04/10/2021 patient seen in follow-up on medical surgical floor, she still very congested with diffuse rhonchi and rales throughout, she remains on high- dose IV steroids Solu-Medrol 40 mg every 8 hours, she is on inhaled bronchodilators with Symbicort and albuterol, patient is breathing easier, but still quite congested. [place] any chest discomfort, yesterday's chest x-ray minimal patchy residual airspace disease. Patient has been on Mucinex 600 mg 4 times daily, and she is on COVID-19 vitamins and she is on oral anticoagulation the form of Eliquis for history of atrial fibrillation. On 04/11/2021 patient seen in follow-upon medical surgical floor. Feeling and breathing better today, although still quite rhonchorous on physical exam, sounds slightly better. Yesterday we give a dose of diuretics, she continues on Mucinex 600 mg 4 times daily, she continues on IV Solu-Medrol, inhaled bronchodilators, starting to slowly improve. Follow-up chest x-ray as been reviewed still showing patchy densities bilaterally. Overall stable exam. Patient has been ambulating with a walker, does get short of breath exertion, no acute distress. She's had no acute events overnight. The patient is seen today 04/12/2021 in follow-up on the regular medical floor. She is currently sitting up in a chair at the bedside. Awake and alert in no acute distress. Breathing a bit better today compared to yesterday. Still with some few scattered rhonchi. She is maintaining O2 saturations in the 90s on 3 L/m per nasal cannula. D-dimer 1.25. Sodium 134. Potassium 4.6. Creatinine 0.88. She is anticoagulated with Eliquis. Continued on vitamin supplements. Continued on IV Solu-Medrol. Objective - Vital Signs Vital signs: Vital Signs Temp 97.8 F 04/12/21 10:00 Pulse 61 04/12/21 10:00 Resp 18 04/12/21 10:00 BP 111/69 04/12/21 10:00 Pulse Ox 92 L 04/12/21 10:00 Intake & Output 04/11/21 04/12/21 04/12/21 18:59 06:59 18:59 Intake Total 480 960 Balance 480 960 Intake: Oral 480 960 Other: Voiding Method Toilet Toilet Bedside Commode Bedside Commode # Voids 2 - Exam GENERAL EXAM: Alert, very pleasant, 65-year-old female patient, on 3 L of oxygen with pulse ox 92% comfortable in no apparent distress. HEAD: Normocephalic/atraumatic. EYES: Normal reaction of pupils, equal size. Conjunctiva pink, sclera white. NOSE: Clear with pink turbinates. THROAT: No erythema or exudates. NECK: No masses, no JVD, no thyroid enlargement, no adenopathy. CHEST: No chest wall deformity. Symmetrical expansion. LUNGS: Equal air entry with diffuse rhonchi and rales throughout the lung doyle CVS: Regular rate and rhythm, normal S1 and S2, no gallops, no murmurs, no rubs ABDOMEN: Soft, nontender. No hepatosplenomegaly, normal bowel sounds, no guarding or rigidity. EXTREMITIES: No clubbing, no edema, no cyanosis, 2+ pulses and upper and lower extremities. MUSCULOSKELETAL: Muscle strength and tone normal. SPINE: No scoliosis or deformity SKIN: No rashes CENTRAL NERVOUS SYSTEM: Alert and oriented -3. No focal deficits, tone is normal in all 4 extremities. PSYCHIATRIC: Alert and oriented -3. Appropriate affect. Intact judgment and insight. - Labs CBC & Chem 7: 04/09/21 07:04 04/12/21 09:35 Labs: Abnormal Lab Results - Last 24 Hours (Table) 04/11/21 04/11/21 04/12/21 Range/Units 16:27 20:41 06:57 D-Dimer (<0.60) mg/L FEU Sodium (137-145) mmol/L BUN (7-17) mg/dL Glucose (74-99) mg/dL POC Glucose (mg/dL) 195 H 195 H 139 H (75-99) mg/dL 04/12/21 04/12/21 04/12/21 Range/Units 09:35 09:35 11:41 D-Dimer 1.25 H (<0.60) mg/L FEU Sodium 134 L (137-145) mmol/L BUN 43 H (7-17) mg/dL Glucose 179 H (74-99) mg/dL POC Glucose (mg/dL) 125 H (75-99) mg/dL Assessment and Plan Assessment: 1 Acute COVID-19 pneumonia, with limited groundglass changes bilaterally. Patient has completed against COVID-19 with MRNA vaccine. Patient received monoclonal antibodies on 04/03/2021, currently is on 3 L of oxygen 2 Acute exacerbation of COPD 3 Mediastinal lymph node calcification with questionable bronchial with adjacent to the right lower lobe bronchus a marker of a previous granulomatous infection of the lung 4 Elevated inflammatory markers related to acute COVID-19 pneumonia 5 Acute on top of chronic hypoxic respiratory failure and shortness of breath 6 Chronic bronchial asthma with some exacerbation 7 History of paroxysmal atrial fibrillation, currently in sinus mechanism, on Eliquis 8 Hypertension 9 Diabetes mellitus type 2 10 Hyperlipidemia 11 Chronic lower extremity edema 12 Previous history of left axillary abscess/cellulitis with MSSA post I&D 13 History of shingles 14 Macular degeneration 15 History of coronary artery disease with 50% lesion in the LAD 16 Peripheral neuropathy 17 Chronic anxiety 18 Chronic migraines 19. History of schizophrenia Plan: The patient was seen and evaluated by Dr. Ozuna Improving but still with some scattered rhonchi Titrate the FiO2 as tolerated Continue Eliquis Continue IV Solu-Medrol, bronchodilators Increase her activity as tolerated We will continue to follow I, the cosigning physician, performed a history & physical examination of the patient. Lungs sounds bilateral scattered rhonchi. Maintaining good O2 saturations in the 90s on 3 L/m per nasal cannula. I discussed the assessment and plan of care with my nurse practitioner, Fernanda Mendoza. I attest to the above note as dictated by her.
--- NOTE | 2021-04-12 14:46 | P.PN ---
Progress Note - Text Progress Note Date: 04/12/21 Chief Complaint: Congested cough fever History of presenting complaint: pleasant 65-year-old patient of visiting physician Dr. Gomes. Resident of [facility] . Does use a walker - baseline to get about. Chronic stable medical conditions include asthma diabetes mellitus type 2, hypertension, hyperlipidemia, hiatal hernia, peripheral neuropathy, schizoaffective disorder, GERD. Patient 4 days started off with cough shortness of breath. Fever chills. Headaches. Bodyaches. Poor appetite. Symptoms have been progressive. Patient given to the ER 2 days ago. Had a fever to 102.4. Pulse ox was 94% on room air. X-ray showed worse in gestation. Patient has received vaccination for COVID-19. come back positive for the same. Received monoclonal antibodies. symptoms progressed to get worse. Patient felt so weak she started to fall. Decided to come back in. Admitted with COVID 19 pneumonitis, acute hypoxic respiratory failure, acute asthma exacerbation. Patient is already on eliquis. Placed on IV Solu-Medrol. Nasal cannula. Oral intake slowly improving. Patient put on IV Solu-Medrol. Slowly dose cutback. April 12: Up in a chair. Eating some. On 3 L of nasal cannula. Breathing slightly better. Some cough. Review of systems: Was done for constitutional, cardiovascular, GI, pulmonary. relevant finding as above Active Medications Acetaminophen (Acetaminophen Tab 325 Mg Tab) 650 mg PO Q6HR PRN PRN Reason: Mild Pain or Fever > 100.5 Last Admin: 04/08/21 19:45 Dose: 650 mg Documented by: Al Hydroxide/Mg Hydroxide (Mag Hydrox/Al Hydrox/Simeth 30 Ml Cup) 15 ml PO Q6HR PRN PRN Reason: Indigestion Albuterol Sulfate (Albuterol Hfa Inhaler) 4 puff INHALATION RT-Q4H [facility] Last Admin: 04/12/21 11:54 Dose: 4 puff Documented by: Apixaban (Apixaban 5 Mg Tab) 5 mg PO BID [facility]; Protocol Last Admin: 04/12/21 07:41 Dose: 5 mg Documented by: Ascorbic Acid (Ascorbic Acid 500 Mg Tab) 500 mg PO BID [facility] Last Admin: 04/12/21 07:41 Dose: 500 mg Documented by: Atorvastatin Calcium (Atorvastatin 10 Mg Tab) 10 mg PO [facility] Last Admin: 04/11/21 21:25 Dose: 10 mg Documented by: Benzocaine/Menthol (Benzocaine/Menthol Lozeng 1 Each Lozenge) 1 each MUCOUS MEM Q6HR PRN PRN Reason: Sore Throat Last Admin: 04/11/21 21:25 Dose: 1 each Documented by: Budesonide/Formoterol Fumarate (Symbicort 160-4.5 Mcg Inhaler) 2 puff INHALATION RT-BID [facility] Last Admin: 04/12/21 07:33 Dose: 2 puff Documented by: Calcium Carbonate/Glycine (Calcium Carbonate 500 Mg Chewable) 1,000 mg PO Q4HR PRN PRN Reason: Dyspepsia Last Admin: 04/11/21 21:26 Dose: 1,000 mg Documented by: Cholecalciferol (Cholecalciferol 25 Mcg (1000 Iu) Tablet) 100 mcg PO DAILY [facility] Last Admin: 04/12/21 07:40 Dose: 100 mcg Documented by: Citalopram Hydrobromide (Citalopram Hydrobromide 20 Mg Tab) 40 mg PO DAILY [facility] Last Admin: 04/12/21 07:40 Dose: 40 mg Documented by: Clozapine (Clozapine 100 Mg Tab) 300 mg PO HS [facility] Stop: 04/16/21 23:59 Last Admin: 04/11/21 21:25 Dose: 300 mg Documented by: Cyanocobalamin (Cyanocobalamin 500 Mcg Tab) 1,000 mcg PO DAILY [facility] Last Admin: 04/12/21 07:40 Dose: 1,000 mcg Documented by: Digoxin (Digoxin 125 Mcg Tab) 125 mcg PO DAILY [facility] Last Admin: 04/12/21 07:42 Dose: 125 mcg Documented by: Gabapentin (Gabapentin 100 Mg Cap) 200 mg PO DAILY [facility] Last Admin: 04/12/21 11:54 Dose: Not Given Documented by: Guaifenesin (Guaifenesin 600 Mg Tablet.Er) 600 mg PO QID [facility] Last Admin: 04/12/21 11:51 Dose: 600 mg Documented by: Hyoscyamine (Hyoscyamine Sulfate 0.125 Mg Tab) 0.125 mg PO Q8H PRN PRN Reason: DROOLING Insulin Aspart (Insulin Aspart (Novolog) 100 Unit/Ml Vial) 0 unit SQ AC-TID [facility]; Protocol Last Admin: 04/12/21 11:46 Dose: Not Given Documented by: Insulin Detemir (Insulin Detemir (Levemir) 100 Unit/Ml Syr) 10 unit SQ HS [facility] Last Admin: 04/11/21 21:51 Dose: 10 unit Documented by: Isosorbide Mononitrate (Isosorbide Mononitrate Er 60 Mg Tab.Er.24h) 60 mg PO DAILY [facility] Last Admin: 04/12/21 07:40 Dose: 60 mg Documented by: Lactulose (Lactulose 20 Gm/30 Ml Cup) 20 gm PO DAILY PRN PRN Reason: Constipation Lorazepam (Lorazepam 1 Mg Tab) 1 mg PO HS PRN PRN Reason: Insomnia Last Admin: 04/11/21 21:26 Dose: 1 mg Documented by: Magnesium Hydroxide (Magnesium Hydroxide 2,400 Mg/10 Ml Cup) 2,400 mg PO DAILY PRN PRN Reason: Constipation Melatonin (Melatonin 3 Mg Tablet) 3 mg PO HS PRN PRN Reason: Insomnia Last Admin: 04/11/21 21:25 Dose: 3 mg Documented by: Metformin HCl (Metformin 500 Mg Tab) 500 mg PO AC-BID [facility] Last Admin: 04/12/21 07:41 Dose: 500 mg Documented by: Methylprednisolone Sodium Succinate (Methylprednisolone Sod Succi 125 Mg/2 Ml Vial) 60 mg IV Q6HR [facility] Last Admin: 04/12/21 11:51 Dose: 60 mg Documented by: Metoprolol Tartrate (Metoprolol Tartrate 12.5 Mg Tab) 12.5 mg PO BID [facility] Last Admin: 04/12/21 07:40 Dose: 12.5 mg Documented by: Multivitamins/Minerals (Vit A,C & W-Sbhwpg-Doobgzyj 1 Each Tab) 1 each PO DAILY [facility] Last Admin: 04/12/21 07:42 Dose: 1 each Documented by: Naloxone HCl (Naloxone 0.4 Mg/Ml 1 Ml Vial) 0.2 mg IV Q2M PRN PRN Reason: Opioid Reversal Ondansetron HCl (Ondansetron 4 Mg/2 Ml Vial) 4 mg IVP Q8HR PRN PRN Reason: Nausea And Vomiting Last Admin: 04/10/21 21:32 Dose: 4 mg Documented by: Oxybutynin Chloride (Oxybutynin Xl 5 Mg Tab.Er.24) 5 mg PO BID [facility] Last Admin: 04/12/21 07:41 Dose: 5 mg Documented by: Zinc Sulfate (Zinc Sulfate 220 Mg Cap) 220 mg PO DAILY [facility] Last Admin: 04/12/21 07:40 Dose: 220 mg Documented by: Past medical history to include: COVID-19 positive diagnosed on 04/03/2021. Persistent bronchial asthma, diabetes mellitus type 2, hypertension, hyperlipidemia, obesity, hiatal hernia, idiopathic peripheral neuropathy, GERD, schizoaffective disorder bipolar type, atrial fibrillation, macular degeneration, uterine cancer with hysterectomy, tardive dyskinesia, use a walker Social history: Lives at the [facility], does use a walker. Stopped drinking alcohol in 2006. Never smoked. Physical examination: VITAL SIGNS: 97.8, 61, 18, 111/69, 92% on 3 L GENERAL: Sitting up in a chair, awake, tired LUNGS: Respiratory rate increased, PSYCH: Alert and oriented x3; mood and affect anxious. NEUROLOGICAL: Cranial nerves grossly intact; no facial asymmetry, moving all 4 limbs Rest of the exam per pulmonary and nursing INVESTIGATIONS, reviewed in the clinical context: April 12: D-dimer 1.25 sodium 134 potassium 4.6 creatinine 0.88 sodium 125 CRP 0.7 April 06: D-dimer 1.4 CRP 5.2 White count 10.2 hemoglobin 13.4 platelets 185 sodium 139 potassium 3.6 creatinine 0.7 to AST 239 ALT 59 albumin 3.4 Troponin I: Less than 0.012 proBNP 314 EKG tracing personally reviewed by me-sinus rhythm. Rate 79. Nonspecific T- wave changes. Chest CTA: No PE. Infiltrates. Assessment and plan: -Acute COVID 19 pneumonitis, symptoms starting 4 days ago. Received vaccine: COVID-19. April 03 did receive monoclonal antibody.: Improving slowly IV Solu-Medrol 40 mg every 8. Vitamin C vitamin D zinc. -Acute hypoxic respiratory failure with a pulse ox 90% on room air upon presentation: Slowly improving 3 L of nasal cannula. -Acute exacerbation of Moderate persistent asthma,: Slow to respond IV Solu-Medrol 40 mg every 8. Albuterol 4 puffs every 4. -Diabetes mellitus type 2, on oral hypoglycemic. Uncontrolled with hyperglycemia. metformin to 500 mg twice a day. 10 units of Levemir at night. -Essential Hypertension Lopressor 12.5 by mouth twice a day -Hyperlipidemia Lipitor 10 mg daily at bedtime -Diabetic peripheral neuropathy Neurontin 200 mg daily -GERD Tums when necessary -Paroxysmal atrial fibrillation currently sinus rhythm Lopressor 12.5 by mouth twice a day. Eliquis 5 mg twice a day -Schizoaffective disorder Clozaril 300 mg daily at bedtime Celexa 40 mg daily -Chronic urinary stress incontinence Ditropan XL 5 mg twice a day Decrease IV Solu-Medrol to 40 mg every 12 tomorrow, Albuterol 4 puffs every 4. Mucinex. 3 L Oxygen supplementation. Follow with pulmonary. Discussed with patient.
[2021-04-12] MEDS: BENZOCAINE/MENTHOL LOZENG 1 EACH LOZENGE MUCOUS MEM PRN ×2 (15:27→22:46)
[2021-04-12 16:41] LABS: Glucose,Whole Blood 170 mg/dL (75-99)
[2021-04-12] MEDS: CALCIUM CARBONATE 500 MG CHEWABLE PO PRN ×2 (16:58→22:44)
[2021-04-12 20:46] LABS: Glucose,Whole Blood 251 mg/dL (75-99)
[2021-04-12] MEDS: INSULIN DETEMIR (LEVEMIR) 100 UNIT/ML SYR SQ SCH (22:44)
[2021-04-12] MEDS: cloZAPine 100 MG TAB PO SCH (22:45)
[2021-04-12] MEDS: ONDANSETRON 4 MG/2 ML VIAL IVP PRN (22:45)
[2021-04-12] MEDS: LORazepam 1 MG TAB PO PRN (22:46)
[2021-04-12] MEDS: ATORVASTATIN 10 MG TAB PO SCH (22:47)
[2021-04-13] MEDS: ALBUTEROL HFA INHALER INHALATION SCH ×7 (00:16→23:23)
[2021-04-13] MEDS: methylPREDNISolone SOD SUCCI 125 MG/2 ML VIAL IV SCH ×4 (06:20→21:42)
[2021-04-13 07:07] LABS: Glucose,Whole Blood 122 mg/dL (75-99)
[2021-04-13] MEDS: SYMBICORT 160-4.5 MCG INHALER INHALATION SCH ×2 (07:14→20:14)
[2021-04-13] MEDS: INSULIN ASPART (NovoLOG) 100 UNIT/ML VIAL SQ SCH ×3 (07:26→17:12)
[2021-04-13] MEDS: metFORMIN 500 MG TAB PO SCH ×2 (08:17→17:12)
[2021-04-13] MEDS: BENZOCAINE/MENTHOL LOZENG 1 EACH LOZENGE MUCOUS MEM PRN ×3 (08:17→21:42)
[2021-04-13] MEDS: GABAPENTIN 100 MG CAP PO SCH (09:10)
[2021-04-13] MEDS: APIXABAN 5 MG TAB PO SCH ×2 (09:10→21:43)
[2021-04-13] MEDS: OXYBUTYNIN XL 5 MG TAB.ER.24 PO SCH ×2 (09:10→21:43)
[2021-04-13] MEDS: CHOLECALCIFEROL 25 MCG (1000 IU) TABLET PO SCH (09:10)
[2021-04-13] MEDS: CYANOCOBALAMIN 500 MCG TAB PO SCH (09:10)
[2021-04-13] MEDS: CITALOPRAM HYDROBROMIDE 20 MG TAB PO SCH (09:10)
[2021-04-13] MEDS: ISOSORBIDE MONONITRATE ER 60 MG TAB.ER.24H PO SCH (09:10)
[2021-04-13] MEDS: VIT A,C & E-LUTEIN-MINERALS 1 EACH TAB PO SCH (09:11)
[2021-04-13] MEDS: ZINC SULFATE 220 MG CAP PO SCH (09:11)
[2021-04-13] MEDS: guaiFENesin 600 MG TABLET.ER PO SCH ×4 (09:11→21:43)
[2021-04-13] MEDS: DIGOXIN 125 MCG TAB PO SCH (09:11)
[2021-04-13] MEDS: ASCORBIC ACID 500 MG TAB PO SCH ×2 (09:11→21:43)
[2021-04-13] MEDS: METOPROLOL TARTRATE 12.5 MG TAB PO SCH ×2 (09:11→21:43)
[2021-04-13 11:42] LABS: Glucose,Whole Blood 147 mg/dL (75-99)
--- NOTE | 2021-04-13 11:48 | P.PN ---
Progress Note - Text Progress Note Date: 04/13/21 Chief Complaint: Congested cough fever History of presenting complaint: pleasant 65-year-old patient of visiting physician Dr. Gomes. Resident of [facility] . Does use a walker - baseline to get about. Chronic stable medical conditions include asthma diabetes mellitus type 2, hypertension, hyperlipidemia, hiatal hernia, peripheral neuropathy, schizoaffective disorder, GERD. Patient 4 days started off with cough shortness of breath. Fever chills. Headaches. Bodyaches. Poor appetite. Symptoms have been progressive. Patient given to the ER 2 days ago. Had a fever to 102.4. Pulse ox was 94% on room air. X-ray showed worse in gestation. Patient has received vaccination for COVID-19. come back positive for the same. Received monoclonal antibodies. symptoms progressed to get worse. Patient felt so weak she started to fall. Decided to come back in. Admitted with COVID 19 pneumonitis, acute hypoxic respiratory failure, acute asthma exacerbation. Patient is already on eliquis. Placed on IV Solu-Medrol. Nasal cannula. Oral intake slowly improving. Patient put on IV Solu-Medrol. Slowly dose cutback. April 12: Up in a chair. Eating some. On 3 L of nasal cannula. Breathing slightly better. Some cough. April 13: Oral intake fair. On 3-4 L of nasal cannula. Slight shortness of breath. High dose IV steroids Review of systems: Was done for constitutional, cardiovascular, GI, pulmonary. relevant finding as above Active Medications Acetaminophen (Acetaminophen Tab 325 Mg Tab) 650 mg PO Q6HR PRN PRN Reason: Mild Pain or Fever > 100.5 Last Admin: 04/08/21 19:45 Dose: 650 mg Documented by: Al Hydroxide/Mg Hydroxide (Mag Hydrox/Al Hydrox/Simeth 30 Ml Cup) 15 ml PO Q6HR PRN PRN Reason: Indigestion Albuterol Sulfate (Albuterol Hfa Inhaler) 4 puff INHALATION RT-Q4H [facility] Last Admin: 04/13/21 11:14 Dose: 4 puff Documented by: Apixaban (Apixaban 5 Mg Tab) 5 mg PO BID [facility]; Protocol Last Admin: 04/13/21 09:10 Dose: 5 mg Documented by: Ascorbic Acid (Ascorbic Acid 500 Mg Tab) 500 mg PO BID [facility] Last Admin: 04/13/21 09:11 Dose: 500 mg Documented by: Atorvastatin Calcium (Atorvastatin 10 Mg Tab) 10 mg PO HS [facility] Last Admin: 04/12/21 22:47 Dose: 10 mg Documented by: Benzocaine/Menthol (Benzocaine/Menthol Lozeng 1 Each Lozenge) 1 each MUCOUS MEM Q6HR PRN PRN Reason: Sore Throat Last Admin: 04/13/21 08:17 Dose: 1 each Documented by: Budesonide/Formoterol Fumarate (Symbicort 160-4.5 Mcg Inhaler) 2 puff INHALATION RT-BID [facility] Last Admin: 04/13/21 07:14 Dose: 2 puff Documented by: Calcium Carbonate/Glycine (Calcium Carbonate 500 Mg Chewable) 1,000 mg PO Q4HR PRN PRN Reason: Dyspepsia Last Admin: 04/12/21 22:44 Dose: 1,000 mg Documented by: Cholecalciferol (Cholecalciferol 25 Mcg (1000 Iu) Tablet) 100 mcg PO DAILY [facility] Last Admin: 04/13/21 09:10 Dose: 100 mcg Documented by: Citalopram Hydrobromide (Citalopram Hydrobromide 20 Mg Tab) 40 mg PO DAILY [facility] Last Admin: 04/13/21 09:10 Dose: 40 mg Documented by: Clozapine (Clozapine 100 Mg Tab) 300 mg PO [facility] Stop: 04/16/21 23:59 Last Admin: 04/12/21 22:45 Dose: 300 mg Documented by: Cyanocobalamin (Cyanocobalamin 500 Mcg Tab) 1,000 mcg PO DAILY [facility] Last Admin: 04/13/21 09:10 Dose: 1,000 mcg Documented by: Digoxin (Digoxin 125 Mcg Tab) 125 mcg PO DAILY [facility] Last Admin: 04/13/21 09:11 Dose: 125 mcg Documented by: Gabapentin (Gabapentin 100 Mg Cap) 200 mg PO DAILY [facility] Last Admin: 04/13/21 09:10 Dose: 200 mg Documented by: Guaifenesin (Guaifenesin 600 Mg Tablet.Er) 600 mg PO QID [facility] Last Admin: 04/13/21 09:11 Dose: 600 mg Documented by: Hyoscyamine (Hyoscyamine Sulfate 0.125 Mg Tab) 0.125 mg PO Q8H PRN PRN Reason: DROOLING Insulin Aspart (Insulin Aspart (Novolog) 100 Unit/Ml Vial) 0 unit SQ AC-TID [facility]; Protocol Last Admin: 04/13/21 07:26 Dose: Not Given Documented by: Insulin Detemir (Insulin Detemir (Levemir) 100 Unit/Ml Syr) 10 unit SQ HS [facility] Last Admin: 04/12/21 22:44 Dose: 10 unit Documented by: Isosorbide Mononitrate (Isosorbide Mononitrate Er 60 Mg Tab.Er.24h) 60 mg PO DAILY [facility] Last Admin: 04/13/21 09:10 Dose: 60 mg Documented by: Lactulose (Lactulose 20 Gm/30 Ml Cup) 20 gm PO DAILY PRN PRN Reason: Constipation Last Admin: 04/13/21 09:11 Dose: 20 gm Documented by: Lorazepam (Lorazepam 1 Mg Tab) 1 mg PO HS PRN PRN Reason: Insomnia Last Admin: 04/12/21 22:46 Dose: 1 mg Documented by: Magnesium Hydroxide (Magnesium Hydroxide 2,400 Mg/10 Ml Cup) 2,400 mg PO DAILY PRN PRN Reason: Constipation Melatonin (Melatonin 3 Mg Tablet) 3 mg PO HS PRN PRN Reason: Insomnia Last Admin: 04/11/21 21:25 Dose: 3 mg Documented by: Metformin HCl (Metformin 500 Mg Tab) 500 mg PO AC-BID [facility] Last Admin: 04/13/21 08:17 Dose: 500 mg Documented by: Methylprednisolone Sodium Succinate (Methylprednisolone Sod Succi 125 Mg/2 Ml Vial) 60 mg IV Q6HR [facility] Last Admin: 04/13/21 06:20 Dose: 60 mg Documented by: Metoprolol Tartrate (Metoprolol Tartrate 12.5 Mg Tab) 12.5 mg PO BID [facility] Last Admin: 04/13/21 09:11 Dose: 12.5 mg Documented by: Multivitamins/Minerals (Vit A,C & G-Jztjjn-Kgokzcim 1 Each Tab) 1 each PO DAILY [facility] Last Admin: 04/13/21 09:11 Dose: 1 each Documented by: Naloxone HCl (Naloxone 0.4 Mg/Ml 1 Ml Vial) 0.2 mg IV Q2M PRN PRN Reason: Opioid Reversal Ondansetron HCl (Ondansetron 4 Mg/2 Ml Vial) 4 mg IVP Q8HR PRN PRN Reason: Nausea And Vomiting Last Admin: 04/12/21 22:45 Dose: 4 mg Documented by: Oxybutynin Chloride (Oxybutynin Xl 5 Mg Tab.Er.24) 5 mg PO BID [facility] Last Admin: 04/13/21 09:10 Dose: 5 mg Documented by: Zinc Sulfate (Zinc Sulfate 220 Mg Cap) 220 mg PO DAILY [facility] Last Admin: 04/13/21 09:11 Dose: 220 mg Documented by: Past medical history to include: COVID-19 positive diagnosed on 04/03/2021. Persistent bronchial asthma, diabetes mellitus type 2, hypertension, hyperlipidemia, obesity, hiatal hernia, idiopathic peripheral neuropathy, GERD, schizoaffective disorder bipolar type, atrial fibrillation, macular degeneration, uterine cancer with hysterectomy, tardive dyskinesia, use a walker Social history: Lives at the [facility], does use a walker. Stopped drinking alcohol in 2006. Never smoked. Physical examination: VITAL SIGNS: 97.8, 75, 16, 150s@75, 92% on 3 L GENERAL: Sitting up in a chair, awake, tired LUNGS: Respiratory rate increased, PSYCH: Alert and oriented x3; mood and affect anxious. NEUROLOGICAL: Cranial nerves grossly intact; no facial asymmetry, moving all 4 limbs Rest of the exam per pulmonary and nursing INVESTIGATIONS, reviewed in the clinical context: April 12: D-dimer 1.25 sodium 134 potassium 4.6 creatinine 0.88 sodium 125 CRP 0.7 April 06: D-dimer 1.4 CRP 5.2 White count 10.2 hemoglobin 13.4 platelets 185 sodium 139 potassium 3.6 creatinine 0.7 to AST 239 ALT 59 albumin 3.4 Troponin I: Less than 0.012 proBNP 314 EKG tracing personally reviewed by me-sinus rhythm. Rate 79. Nonspecific T- wave changes. Chest CTA: No PE. Infiltrates. Assessment and plan: -Acute COVID 19 pneumonitis, symptoms starting 4 days ago. Received vaccine: COVID-19. April 03 did receive monoclonal antibody.: Improving slowly IV Solu-Medrol 60 mg every 6. Vitamin C vitamin D zinc. -Acute hypoxic respiratory failure with a pulse ox 90% on room air upon presentation: Slowly improving 3 L of nasal cannula. -Acute exacerbation of Moderate persistent asthma,: Slow to respond IV Solu-Medrol 60 mg every 6. Albuterol 4 puffs every 4. -Diabetes mellitus type 2, on oral hypoglycemic. Uncontrolled with hyperglycemia. metformin to 500 mg twice a day. 10 units of Levemir at night. -Essential Hypertension Lopressor 12.5 by mouth twice a day -Hyperlipidemia Lipitor 10 mg daily at bedtime -Diabetic peripheral neuropathy Neurontin 200 mg daily -GERD Tums when necessary -Paroxysmal atrial fibrillation currently sinus rhythm Lopressor 12.5 by mouth twice a day. Eliquis 5 mg twice a day -Schizoaffective disorder Clozaril 300 mg daily at bedtime Celexa 40 mg daily -Chronic urinary stress incontinence Ditropan XL 5 mg twice a day High-dose Solu-Medrol per pulmonary. Albuterol 4 puffs every 4. Mucinex. 3 L Oxygen supplementation. Follow with pulmonary. Discussed with patient.
--- NOTE | 2021-04-13 15:23 | P.PN ---
Subjective Progress Note Date: 04/13/21 Principal diagnosis: COVID-19 pneumonia 65-year-old female patient, lives in an [facility] home, already vaccinated with Moderna 2 vaccines, has multiple medical problems and comorbidities an extensive psychiatric history and she is essentially residing at the [facility] home. The patient was in the hospital on 04/03/2021 and at that time she was diagnosed having COVID 19 related infection and based on her comorbidities, the patient was given monoclonal antibodies and the patient was discharged. She came back today hospital because of cough and shortness of breath and fever. Her CT angiogram was completed and there is no evidence of any pulmonary embolism. Limited groundglass changes bilaterally. D-dimer is at 1.4 and her CRP level is at 5.2. LFTs are mildly elevated consistent with COVID 19 with an AST of 239, ALT of 59, the electrolytes are normal, normal renal function, white cell count is at 10.2 with a hemoglobin of 13.4. She is currently on oxygen at 4 L with a pulse ox of 97% and home O2 at 2 L which is her baseline. Note that the patient has been on Eliquis on long-term basis regarding chronic atrial fibrillation. On 04/07/2021 patient seen in follow-up on medical surgical floor, she is resting comfortably in bed, she is on 4 L of oxygen pulse ox is 92%, although she still has wheezing, and congested cough. She continues on Decadron 6 mg daily, She is on home dose Eliquis, and she is on COVID-19 vitamins. CTA chest was negative for any evidence of pulmonary embolism. Today's labs have been reviewed, d-dimer is relatively stable at 1.37, CRP is 2.6. LDH is still pending on today's labs, pro-calcitonin level is 0.07 On 04/08/2021 patient seen in follow-up on medical surgical floor. She is on 4 L of oxygen pulse ox 96%, still very rhonchorous, congested,, though slightly better from yesterday. Yesterday we switched her from Decadron to Solu-Medrol. Patient continues on Symbicort, albuterol, she is on home dose Eliquis 5 mg twice daily, she is on COVID-19 vitamins, Mucinex. No fever or chills, no acute events overnight. Today's labs have been noted, d-dimer is 1.39 and it is slightly improved from yesterday, and CRP is improving and is down to 1.8, LDH is still pending for today. On 04/09/2021 patient seen in follow-up on medical surgical floor. She still very congested and wheezy. She remains on 5 L of oxygen her pulse ox of 95%, she is dyspneic with exertion, she remains on IV Solu-Medrol, inhaled bronchodilators in the form of Symbicort and albuterol, she is on Eliquis for history of atrial fibrillation, she has been slow to improve, however oxygenation has remained relatively stable requiring 4-5 L of supplemental oxygen in the last few days. No fever or chills, no complaints of chest discomfort. Chest x-ray today showing minimal patchy residual airspace disease. Today's labs have been reviewed, white blood cell, 16.7, hemoglobin is 13, d- dimer is 1.19, electrolytes are within normal limits, BUN is 21 creatinine 0.85, inflammatory markers are improving. On 04/10/2021 patient seen in follow-up on medical surgical floor, she still very congested with diffuse rhonchi and rales throughout, she remains on high- dose IV steroids Solu-Medrol 40 mg every 8 hours, she is on inhaled bronchodilators with Symbicort and albuterol, patient is breathing easier, but still quite congested. [place] any chest discomfort, yesterday's chest x-ray minimal patchy residual airspace disease. Patient has been on Mucinex 600 mg 4 times daily, and she is on COVID-19 vitamins and she is on oral anticoagulation the form of Eliquis for history of atrial fibrillation. On 04/11/2021 patient seen in follow-upon medical surgical floor. Feeling and breathing better today, although still quite rhonchorous on physical exam, sounds slightly better. Yesterday we give a dose of diuretics, she continues on Mucinex 600 mg 4 times daily, she continues on IV Solu-Medrol, inhaled bronchodilators, starting to slowly improve. Follow-up chest x-ray as been reviewed still showing patchy densities bilaterally. Overall stable exam. Patient has been ambulating with a walker, does get short of breath exertion, no acute distress. She's had no acute events overnight. The patient is seen today 04/12/2021 in follow-up on the regular medical floor. She is currently sitting up in a chair at the bedside. Awake and alert in no acute distress. Breathing a bit better today compared to yesterday. Still with some few scattered rhonchi. She is maintaining O2 saturations in the 90s on 3 L/m per nasal cannula. D-dimer 1.25. Sodium 134. Potassium 4.6. Creatinine 0.88. She is anticoagulated with Eliquis. Continued on vitamin supplements. Continued on IV Solu-Medrol. The patient is seen today 04/12/2021 in follow-up on the regular medical floor. She is awake and alert in no acute distress. Sitting up in a chair at the bedside. Continued on 3 L/m per nasal cannula with O2 saturation of 92%. She is feeling quite a bit better. Lung sounds are improving. LDH 584. C-reactive protein 0.7. Pro-calcitonin 0.05. She remains on IV Solu-Medrol, bronchodilators, vitamin supplements. Anticoagulated with Eliquis. Objective - Vital Signs Vital signs: Vital Signs Temp 97.8 F 04/13/21 10:00 Pulse 75 04/13/21 10:00 Resp 16 04/13/21 10:00 BP 115/75 04/13/21 10:00 Pulse Ox 92 L 04/13/21 10:00 Intake & Output 04/12/21 04/13/21 04/13/21 18:59 06:59 18:59 Intake Total 840 1320 Output Total 400 Balance 840 920 Intake: Oral 840 1320 Output: Urine 400 Other: Voiding Method Toilet Toilet Toilet Bedside Commode Bedside Commode Bedside Commode # Voids 2 5 # Bowel Movements 0 - Exam GENERAL EXAM: Alert, very pleasant, 65-year-old female patient, on 3 L of oxygen with pulse ox 92% comfortable in no apparent distress. HEAD: Normocephalic/atraumatic. EYES: Normal reaction of pupils, equal size. Conjunctiva pink, sclera white. NOSE: Clear with pink turbinates. THROAT: No erythema or exudates. NECK: No masses, no JVD, no thyroid enlargement, no adenopathy. CHEST: No chest wall deformity. Symmetrical expansion. LUNGS: Equal air entry with diffuse rhonchi and rales throughout the lung doyle CVS: Regular rate and rhythm, normal S1 and S2, no gallops, no murmurs, no rubs ABDOMEN: Soft, nontender. No hepatosplenomegaly, normal bowel sounds, no guarding or rigidity. EXTREMITIES: No clubbing, no edema, no cyanosis, 2+ pulses and upper and lower extremities. MUSCULOSKELETAL: Muscle strength and tone normal. SPINE: No scoliosis or deformity SKIN: No rashes CENTRAL NERVOUS SYSTEM: Alert and oriented -3. No focal deficits, tone is normal in all 4 extremities. PSYCHIATRIC: Alert and oriented -3. Appropriate affect. Intact judgment and insight. - Labs CBC & Chem 7: 04/09/21 07:04 04/12/21 09:35 Labs: Abnormal Lab Results - Last 24 Hours (Table) 04/12/21 04/12/21 04/13/21 Range/Units 16:39 20:33 07:05 POC Glucose (mg/dL) 170 H 251 H 122 H (75-99) mg/dL 04/13/21 Range/Units 11:40 POC Glucose (mg/dL) 147 H (75-99) mg/dL Assessment and Plan Assessment: 1 Acute COVID-19 pneumonia, with limited groundglass changes bilaterally. Patient has completed vaccine against COVID-19 with MRNA vaccine. Patient received monoclonal antibodies on 04/03/2021, currently is on 3 L of oxygen 2 Acute exacerbation of COPD 3 Mediastinal lymph node calcification with questionable bronchial with adjacent to the right lower lobe bronchus a marker of a previous granulomatous infection of the lung 4 Elevated inflammatory markers related to acute COVID-19 pneumonia 5 Acute on top of chronic hypoxic respiratory failure and shortness of breath 6 Chronic bronchial asthma with some exacerbation 7 History of paroxysmal atrial fibrillation, currently in sinus mechanism, on Eliquis 8 Hypertension 9 Diabetes mellitus type 2 10 Hyperlipidemia 11 Chronic lower extremity edema 12 Previous history of left axillary abscess/cellulitis with MSSA post I&D 13 History of shingles 14 Macular degeneration 15 History of coronary artery disease with 50% lesion in the LAD 16 Peripheral neuropathy 17 Chronic anxiety 18 Chronic migraines 19. History of schizophrenia Plan: The patient was seen and evaluated by Dr. Ozuna Improving and probable discharge in the a.m. Titrate the FiO2 as tolerated Continue Eliquis Continue IV Solu-Medrol, bronchodilators Increase her activity as tolerated Follow-up chest x-ray in a.m. We will continue to follow I, the cosigning physician, performed a history & physical examination of the patient. Lungs sounds bilateral scattered rhonchi. Maintaining good O2 saturations in the 90s on 3 L/m per nasal cannula. I discussed the assessment and plan of care with my nurse practitioner, Fernanda Mendoza. I attest to the above note as dictated by her.
[2021-04-13 16:40] LABS: Glucose,Whole Blood 167 mg/dL (75-99)
[2021-04-13 20:05] LABS: Glucose,Whole Blood 200 mg/dL (75-99)
[2021-04-13] MEDS: INSULIN DETEMIR (LEVEMIR) 100 UNIT/ML SYR SQ SCH (21:42)
[2021-04-13] MEDS: cloZAPine 100 MG TAB PO SCH (21:42)
[2021-04-13] MEDS: LORazepam 1 MG TAB PO PRN (21:43)
[2021-04-13] MEDS: ATORVASTATIN 10 MG TAB PO SCH (21:43)
[2021-04-13] MEDS: MELATONIN 3 MG TABLET PO PRN (21:43)
[2021-04-14] MEDS: ALBUTEROL HFA INHALER INHALATION SCH ×3 (03:18→12:29)
[2021-04-14 03:49] VITALS: RESP 18
[2021-04-14] MEDS: methylPREDNISolone SOD SUCCI 125 MG/2 ML VIAL IV SCH ×2 (06:09→12:33)
[2021-04-14 06:27] VITALS: TEMP 97.9
[2021-04-14] MEDS: INSULIN ASPART (NovoLOG) 100 UNIT/ML VIAL SQ SCH ×2 (07:06→12:33)
[2021-04-14 07:14] LABS: Glucose,Whole Blood 121 mg/dL (75-99)
[2021-04-14] MEDS: METOPROLOL TARTRATE 12.5 MG TAB PO SCH (07:22)
[2021-04-14] MEDS: APIXABAN 5 MG TAB PO SCH (07:22)
[2021-04-14] MEDS: OXYBUTYNIN XL 5 MG TAB.ER.24 PO SCH (07:22)
[2021-04-14] MEDS: CHOLECALCIFEROL 25 MCG (1000 IU) TABLET PO SCH (07:22)
[2021-04-14] MEDS: VIT A,C & E-LUTEIN-MINERALS 1 EACH TAB PO SCH (07:23)
[2021-04-14] MEDS: guaiFENesin 600 MG TABLET.ER PO SCH ×2 (07:23→12:33)
[2021-04-14] MEDS: ISOSORBIDE MONONITRATE ER 60 MG TAB.ER.24H PO SCH (07:23)
[2021-04-14] MEDS: BENZONATATE 100 MG CAP PO SCH ×2 (07:23→16:43)
[2021-04-14] MEDS: metFORMIN 500 MG TAB PO SCH (07:23)
[2021-04-14] MEDS: ZINC SULFATE 220 MG CAP PO SCH (07:23)
[2021-04-14] MEDS: DIGOXIN 125 MCG TAB PO SCH (07:23)
[2021-04-14] MEDS: ASCORBIC ACID 500 MG TAB PO SCH (07:23)
[2021-04-14] MEDS: CITALOPRAM HYDROBROMIDE 20 MG TAB PO SCH (07:23)
[2021-04-14] MEDS: CYANOCOBALAMIN 500 MCG TAB PO SCH (07:24)
[2021-04-14] MEDS: GABAPENTIN 100 MG CAP PO SCH (07:26)
[2021-04-14] MEDS: SYMBICORT 160-4.5 MCG INHALER INHALATION SCH (08:31)
--- NOTE | 2021-04-14 09:38 | XR ---
EXAMINATION TYPE: XR chest 1V portable DATE OF EXAM: 04/14/2021 COMPARISON: Chest x-ray 04/11/2021 HISTORY: Covid pneumonia TECHNIQUE: Single frontal view of the chest is obtained. FINDINGS: Lung volumes are low and the patient is rotated. Postop changes are noted to the cervical spine. The cardiomediastinal silhouette is stable. Patchy basilar densities show similar appearance. No evident pneumothorax or pleural effusion. Surgical clips are present in the right upper quadrant. Aorta is dense. IMPRESSION: Basilar atelectasis versus pneumonia, expiratory rotated exam
[2021-04-14 10:40] VITALS: BP 120/70; PULSE 62
[2021-04-14 11:50] LABS: Glucose,Whole Blood 138 mg/dL (75-99)
--- NOTE | 2021-04-14 14:00 | P.PN ---
Subjective Progress Note Date: 04/14/21 Principal diagnosis: Acute exacerbation of COPD, COVID-19 pneumonia 65-year-old female patient, lives in an [facility] home, already vaccinated with Moderna 2 vaccines, has multiple medical problems and comorbidities an extensive psychiatric history and she is essentially residing at the [facility] home. The patient was in the hospital on 04/03/2021 and at that time she was diagnosed having COVID 19 related infection and based on her comorbidities, the patient was given monoclonal antibodies and the patient was discharged. She came back today hospital because of cough and shortness of breath and fever. Her CT angiogram was completed and there is no evidence of any pulmonary embolism. Limited groundglass changes bilaterally. D-dimer is at 1.4 and her CRP level is at 5.2. LFTs are mildly elevated consistent with COVID 19 with an AST of 239, ALT of 59, the electrolytes are normal, normal renal function, white cell count is at 10.2 with a hemoglobin of 13.4. She is currently on oxygen at 4 L with a pulse ox of 97% and home O2 at 2 L which is her baseline. Note that the patient has been on Eliquis on long-term basis regarding chronic atrial fibrillation. On 04/07/2021 patient seen in follow-up on medical surgical floor, she is resting comfortably in bed, she is on 4 L of oxygen pulse ox is 92%, although she still has wheezing, and congested cough. She continues on Decadron 6 mg daily, She is on home dose Eliquis, and she is on COVID-19 vitamins. CTA chest was negative for any evidence of pulmonary embolism. Today's labs have been reviewed, d-dimer is relatively stable at 1.37, CRP is 2.6. LDH is still pending on today's labs, pro-calcitonin level is 0.07 On 04/08/2021 patient seen in follow-up on medical surgical floor. She is on 4 L of oxygen pulse ox 96%, still very rhonchorous, congested,, though slightly better from yesterday. Yesterday we switched her from Decadron to Solu-Medrol. Patient continues on Symbicort, albuterol, she is on home dose Eliquis 5 mg twice daily, she is on COVID-19 vitamins, Mucinex. No fever or chills, no acute events overnight. Today's labs have been noted, d-dimer is 1.39 and it is slightly improved from yesterday, and CRP is improving and is down to 1.8, LDH is still pending for today. On 04/09/2021 patient seen in follow-up on medical surgical floor. She still very congested and wheezy. She remains on 5 L of oxygen her pulse ox of 95%, she is dyspneic with exertion, she remains on IV Solu-Medrol, inhaled bronchodilators in the form of Symbicort and albuterol, she is on Eliquis for history of atrial fibrillation, she has been slow to improve, however oxygenation has remained relatively stable requiring 4-5 L of supplemental oxygen in the last few days. No fever or chills, no complaints of chest discomfort. Chest x-ray today showing minimal patchy residual airspace disease. Today's labs have been reviewed, white blood cell, 16.7, hemoglobin is 13, d- dimer is 1.19, electrolytes are within normal limits, BUN is 21 creatinine 0.85, inflammatory markers are improving. On 04/10/2021 patient seen in follow-up on medical surgical floor, she still very congested with diffuse rhonchi and rales throughout, she remains on high- dose IV steroids Solu-Medrol 40 mg every 8 hours, she is on inhaled bronchodilators with Symbicort and albuterol, patient is breathing easier, but still quite congested. Nuys any chest discomfort, yesterday's chest x-ray minimal patchy residual airspace disease. Patient has been on Mucinex 600 mg 4 times daily, and she is on COVID-19 vitamins and she is on oral anticoagulation the form of Eliquis for history of atrial fibrillation. On 04/11/2021 patient seen in follow-upon medical surgical floor. Feeling and breathing better today, although still quite rhonchorous on physical exam, sounds slightly better. Yesterday we give a dose of diuretics, she continues on Mucinex 600 mg 4 times daily, she continues on IV Solu-Medrol, inhaled bronchodilators, starting to slowly improve. Follow-up chest x-ray as been reviewed still showing patchy densities bilaterally. Overall stable exam. Patient has been ambulating with a walker, does get short of breath exertion, no acute distress. She's had no acute events overnight. On 04/14/2021 she seen in follow-up in medical surgical floor, she is currently on 3 L of oxygen pulse ox is 98%, she normally wears 3 L of supplemental oxygen at home according to her, she sits up in the recliner, breathing comfortable, still has diffuse rhonchi, but overall less congested and wheezy, no fever or chills, vital signs have been stable, no chest discomfort, no hemoptysis no worsening dyspnea. She continues on IV Solu-Medrol 60 every 6 hours, inhaled bronchodilators, she is on oral anticoagulation, and multivitamins for COVID-19 pneumonia, no new labs today. Today's follow-up chest x-ray showed basilar atelectasis. No acute events overnight, she lives at the [facility] home and she is really hoping to be able to go back to the [facility] home today Objective - Vital Signs Vital signs: Vital Signs Temp 97.9 F 04/14/21 10:00 Pulse 62 04/14/21 10:00 Resp 18 04/14/21 10:00 BP 120/70 04/14/21 10:00 Pulse Ox 98 04/14/21 10:00 Intake & Output 04/13/21 04/14/21 04/14/21 18:59 06:59 18:59 Intake Total 800 1280 Output Total 400 Balance 800 880 Intake: Oral 800 1280 Output: Urine 400 Other: Voiding Method Toilet Toilet Bedside Commode Bedside Commode # Voids 3 3 - Exam GENERAL EXAM: Alert, very pleasant, 65-year-old white female, on 3 L of oxygen with pulse ox 93% comfortable in no apparent distress. HEAD: Normocephalic/atraumatic. EYES: Normal reaction of pupils, equal size. Conjunctiva pink, sclera white. NOSE: Clear with pink turbinates. THROAT: No erythema or exudates. NECK: No masses, no JVD, no thyroid enlargement, no adenopathy. CHEST: No chest wall deformity. Symmetrical expansion. LUNGS: Equal air entry with diffuse rhonchi bilateral lower lobes CVS: Regular rate and rhythm, normal S1 and S2, no gallops, no murmurs, no rubs ABDOMEN: Soft, nontender. No hepatosplenomegaly, normal bowel sounds, no guarding or rigidity. EXTREMITIES: No clubbing, no edema, no cyanosis, 2+ pulses and upper and lower extremities. MUSCULOSKELETAL: Muscle strength and tone normal. SPINE: No scoliosis or deformity SKIN: No rashes CENTRAL NERVOUS SYSTEM: Alert and oriented -3. No focal deficits, tone is normal in all 4 extremities. PSYCHIATRIC: Alert and oriented -3. Appropriate affect. Intact judgment and insight. - Labs CBC & Chem 7: 04/09/21 07:04 04/12/21 09:35 Labs: Abnormal Lab Results - Last 24 Hours (Table) 04/13/21 04/13/21 04/14/21 Range/Units 16:36 20:04 07:00 POC Glucose (mg/dL) 167 H 200 H 121 H (75-99) mg/dL 04/14/21 Range/Units 11:29 POC Glucose (mg/dL) 138 H (75-99) mg/dL Assessment and Plan Plan: Assessment: #1. Acute COVID-19 pneumonia, with limited groundglass changes bilaterally. Patient has completed against COVID-19 with MRNA vaccine. Patient received monoclonal antibodies on 04/03/2021, currently is on 3 L of oxygen #2. Acute exacerbation of COPD, improving #3. Mediastinal lymph node calcification with questionable bronchial with pramod cent to the right lower lobe bronchus a marker of a previous granulomatous infection of the lung #4. Elevated inflammatory markers related to acute COVID-19 pneumonia #5. Acute on top of chronic hypoxic respiratory failure and shortness of breath #6. Chronic bronchial asthma with some exacerbation #7. History of paroxysmal atrial fibrillation, currently in sinus mechanism, on Eliquis #7. History of schizophrenia #8. Hypertension #9. Diabetes mellitus type 2 #10. Hyperlipidemia #11. Chronic lower extremity edema #12. Previous history of left axillary abscess/cellulitis with MSSA post I&D #13. History of shingles #14. Macular degeneration #15. History of coronary artery disease with 50% lesion in the LAD #16. Peripheral neuropathy #17. Chronic anxiety #18. Chronic migraines Plan: No wheezing, still mildly congested, but significantly improved Today's chest x-ray has been reviewed showing basilar atelectasis No fever or chills Tolerating activity She is maintaining stable O2 saturations on 3 L Patient is stable for discharge back to the [facility] today And she can complete prednisone taper and continue on COVID-19 vitamins She is already on anticoagulation form of Eliquis for history of paroxysmal A. fib Outpatient follow-up with Dr. Snider in 2 weeks I performed a history & physical examination of the patient and discussed their management with my nurse practitioner, Maryann Bradford. I reviewed the nurse practitioner's note and agree with the documented findings and plan of care. Lung sounds are positive for diffuse wheezes throughout the lung doyle. The findings and the impression was discussed with the patient. I attest to the documentation by the nurse practitioner. Time with Patient: Less than 30
--- NOTE | 2021-04-14 15:27 | P.DS ---
Providers Date of admission: 04/05/21 14:01 Expected date of discharge: 04/14/21 Attending physician: Marvin Elizabeth Consults: 04/05/21 17:40 Consult Physician Routine Consulting Provider: Srinivasa Snider Consult Reason/Comments: COVID 19 Do you want consulting provider notified?: Yes [facility] Course: Chief Complaint: Congested cough fever History of presenting complaint: pleasant 65-year-old patient of visiting physician Dr. Gomes. Resident of [facility] . Does use a walker - baseline to get about. Chronic stable medical conditions include asthma diabetes mellitus type 2, hypertension, hyperlipidemia, hiatal hernia, peripheral neuropathy, schizoaffective disorder, GERD. Patient 4 days started off with cough shortness of breath. Fever chills. Headaches. Bodyaches. Poor appetite. Symptoms have been progressive. Patient given to the ER 2 days ago. Had a fever to 102.4. Pulse ox was 94% on room air. X-ray showed worse in gestation. Patient has received vaccination for COVID-19. come back positive for the same. Received monoclonal antibodies. symptoms progressed to get worse. Patient felt so weak she started to fall. Decided to come back in. Admitted with COVID 19 pneumonitis, acute hypoxic respiratory failure, acute asthma exacerbation. Patient is already on eliquis. Placed on IV Solu-Medrol. Nasal cannula. Oral intake slowly improving. Patient put on IV Solu-Medrol. Slowly dose cutback. Patient's continued to improve. Oral intake improving. April 14: Seen by pulmonary. Cleared for discharge. Discussed with the patient. Prednisone taper. Albuterol when necessary. Consultation: Dr. Ozuna in [facility] from pulmonary Past medical history to include: COVID-19 positive diagnosed on 04/03/2021. Persistent bronchial asthma, diabetes mellitus type 2, hypertension, hyperlipidemia, obesity, hiatal hernia, idiopathic peripheral neuropathy, GERD, schizoaffective disorder bipolar type, atrial fibrillation, macular degeneration, uterine cancer with hysterectomy, tardive dyskinesia, use a walker Social history: Lives at the [facility], does use a walker. Stopped drinking alcohol in 2006. Never smoked. Physical examination: VITAL SIGNS: 97.9, 62, 18, 120/70, 98% on 4 L GENERAL: Sitting up in a chair, awake, more comfortable LUNGS: Respiratory rate increased, PSYCH: Alert and oriented x3; mood and affect anxious. NEUROLOGICAL: Cranial nerves grossly intact; no facial asymmetry, moving all 4 limbs Rest of the exam per pulmonary and nursing INVESTIGATIONS, reviewed in the clinical context: April 12: D-dimer 1.25 sodium 134 potassium 4.6 creatinine 0.88 sodium 125 CRP 0.7 April 06: D-dimer 1.4 CRP 5.2 White count 10.2 hemoglobin 13.4 platelets 185 sodium 139 potassium 3.6 creatinine 0.7 to AST 239 ALT 59 albumin 3.4 Troponin I: Less than 0.012 proBNP 314 EKG tracing personally reviewed by me-sinus rhythm. Rate 79. Nonspecific T- wave changes. Chest CTA: No PE. Infiltrates. Assessment and plan: -Acute COVID 19 pneumonitis, symptoms starting 4 days ago. Received vaccine: COVID-19. April 03 did receive monoclonal antibody.: Improving IV Solu-Medrol 60 mg every 6. Vitamin C vitamin D zinc. Discharged home on prednisone taper. -Acute hypoxic respiratory failure with a pulse ox 90% on room air upon prese ntation: Slowly improving 3 L of nasal cannula. -Chronic hypoxic respiratory failure from asthma uses 3 L nasal cannula at home -Acute exacerbation of Moderate persistent asthma,: Slow to respond IV Solu-Medrol 60 mg every 6. Albuterol 4 puffs every 4. Discharged home on prednisone taper. Albuterol. -Diabetes mellitus type 2, on oral hypoglycemic. Uncontrolled with hyperglycemia. metformin -Essential Hypertension Lopressor 12.5 by mouth twice a day -Hyperlipidemia Lipitor 10 mg daily at bedtime -Diabetic peripheral neuropathy Neurontin 200 mg daily -GERD Tums when necessary -Paroxysmal atrial fibrillation currently sinus rhythm Lopressor 12.5 by mouth twice a day. Eliquis 5 mg twice a day -Schizoaffective disorder Clozaril 300 mg daily at bedtime Celexa 40 mg daily -Chronic urinary stress incontinence Ditropan XL 5 mg twice a day Disposition: [facility] Plan - Discharge Summary Discharge Rx Participant: No New Discharge Prescriptions: New guaiFENesin [Mucinex] 600 mg PO QID #30 tablet predniSONE 10 mg PO DAILY #30 tab Cholecalciferol [Vitamin D3 (25 Mcg = 1000 Iu)] 100 mcg PO DAILY #120 tablet Zinc Sulfate [Orazinc] 220 mg PO DAILY #30 cap Albuterol Inhaler [Ventolin Hfa Inhaler] 2 puff INHALATION QID #1 gm Continue Atorvastatin [Lipitor] 10 mg PO HS Apixaban [Eliquis] 5 mg PO BID tab Digoxin [Lanoxin] 125 mcg PO DAILY tab Metoprolol Tartrate [Lopressor] 12.5 mg PO BID Oxybutynin Xl [Ditropan XL] 5 mg PO BID Isosorbide Mononitrate ER [Imdur] 60 mg PO DAILY tab Citalopram Hydrobromide [CeleXA] 40 mg PO DAILY Gabapentin [Neurontin] 200 mg PO DAILY metFORMIN HCL ER [Glucophage XR] 500 mg PO Q48H Vit C/E/Zn/Coppr/Lutein/Zeaxan [Preservision Areds 2 Softgel] 1 cap PO DAILY cloZAPine [Clozaril] 300 mg PO HS LORazepam [Ativan] 1 mg PO HS PRN PRN Reason: Insomnia Cyanocobalamin (Vitamin B-12) [Vitamin B-12] 1,000 mcg PO DAILY Hyoscyamine Sulfate [Hyoscyamine Sulfate SL] 0.125 mg SL Q8H PRN PRN Reason: DROOLING Ascorbic Acid [Vitamin C] 500 mg PO BID Benadryl Lima 2-0.1% 1 applic TOPICAL QID PRN PRN Reason: Skin Irritation Discontinued Dexamethasone [Decadron] 6 mg PO DAILY No Action Furosemide [Lasix] 20 mg PO DAILY Discharge Medication List Atorvastatin [Lipitor] 10 mg PO HS 12/30/16 [History] Apixaban [Eliquis] 5 mg PO BID tab 01/15/17 [Rx] Digoxin [Lanoxin] 125 mcg PO DAILY tab 01/15/17 [Rx] Metoprolol Tartrate [Lopressor] 12.5 mg PO BID 02/25/17 [History] Oxybutynin Xl [Ditropan XL] 5 mg PO BID 02/25/17 [History] Isosorbide Mononitrate ER [Imdur] 60 mg PO DAILY tab 03/01/17 [Rx] Citalopram Hydrobromide [CeleXA] 40 mg PO DAILY 11/05/18 [History] Gabapentin [Neurontin] 200 mg PO DAILY 05/19/19 [History] metFORMIN HCL ER [Glucophage XR] 500 mg PO Q48H 05/19/19 [History] Cyanocobalamin (Vitamin B-12) [Vitamin B-12] 1,000 mcg PO DAILY 04/24/20 [History] LORazepam [Ativan] 1 mg PO HS PRN 04/24/20 [History] Vit C/E/Zn/Coppr/Lutein/Zeaxan [Preservision Areds 2 Softgel] 1 cap PO DAILY 04/24/20 [History] cloZAPine [Clozaril] 300 mg PO HS 04/24/20 [History] Ascorbic Acid [Vitamin C] 500 mg PO BID 04/03/21 [History] Benadryl Lima 2-0.1% 1 applic TOPICAL QID PRN 04/03/21 [History] Furosemide [Lasix] 20 mg PO DAILY 04/03/21 [History] Hyoscyamine Sulfate [Hyoscyamine Sulfate SL] 0.125 mg SL Q8H PRN 04/05/21 [History] Albuterol Inhaler [Ventolin Hfa Inhaler] 2 puff INHALATION QID #1 gm 04/14/21 [Rx] Cholecalciferol [Vitamin D3 (25 Mcg = 1000 Iu)] 100 mcg PO DAILY #120 tablet 04/14/21 [Rx] Zinc Sulfate [Orazinc] 220 mg PO DAILY #30 cap 04/14/21 [Rx] guaiFENesin [Mucinex] 600 mg PO QID #30 tablet 04/14/21 [Rx] predniSONE 10 mg PO DAILY #30 tab 04/14/21 [Rx] Follow up Appointment(s)/Referral(s): Loki Gomes MD [Primary Care Provider] - 1-2 days Srinivasa Snider MD [STAFF PHYSICIAN] - 05/06/21 2:00 pm Patient Instructions/Handouts: Coronavirus Disease 2019 (COVID-19), COPD (Chronic Obstructive Pulmonary Disease) (DC) Activity/Diet/Wound Care/Special Instructions: Pt will return to [facility] on discharge. Will need w/c van transport: #[phone].
== END 2021-04-14 16:49 | disposition home or self-care (01) | DRG 177 ==
LOC: EC 11:57 → 4SSUR 14:01
PROVIDERS: ADMIT Hospitalist; ATTEND Hospitalist
PROC: 3E0333Z Introduction of Anti-inflammatory into Peripheral Vein, Percutaneous Approach (ICD-10-PCS; principal; 2021-04-05)
DX: U07.1 COVID-19 (principal); J12.82 Pneumonia due to coronavirus disease 2019; J96.21 Acute and chronic respiratory failure with hypoxia; J45.41 Moderate persistent asthma with (acute) exacerbation; J44.1 Chronic obstructive pulmonary disease with (acute) exacerbation; J44.0 Chronic obstructive pulmonary disease with (acute) lower respiratory infection; J98.11 Atelectasis; D64.9 Anemia, unspecified; E11.42 Type 2 diabetes mellitus with diabetic polyneuropathy; E11.65 Type 2 diabetes mellitus with hyperglycemia; E78.5 Hyperlipidemia, unspecified; G24.01 Drug induced subacute dyskinesia; F32.A Depression, unspecified; F41.9 Anxiety disorder, unspecified; G43.909 Migraine, unspecified, not intractable, without status migrainosus; H35.30 Unspecified macular degeneration; I25.10 Atherosclerotic heart disease of native coronary artery without angina pectoris; I48.0 Paroxysmal atrial fibrillation; I50.9 Heart failure, unspecified; I11.0 Hypertensive heart disease with heart failure; K21.9 Gastro-esophageal reflux disease without esophagitis; K44.9 Diaphragmatic hernia without obstruction or gangrene; N39.3 Stress incontinence (female) (male); Z79.01 Long term (current) use of anticoagulants; Z79.4 Long term (current) use of insulin; F25.0 Schizoaffective disorder, bipolar type; Z79.899 Other long term (current) drug therapy; Z80.0 Family history of malignant neoplasm of digestive organs; Z80.8 Family history of malignant neoplasm of other organs or systems; Z82.49 Family history of ischemic heart disease and other diseases of the circulatory system; Z85.42 Personal history of malignant neoplasm of other parts of uterus; Z86.19 Personal history of other infectious and parasitic diseases; Z86.73 Personal history of transient ischemic attack (TIA), and cerebral infarction without residual deficits; Z90.710 Acquired absence of both cervix and uterus
CPT/HCPCS: 36415; 71045; 71046; 71275; 80048; 80053; 83605; 83615; 83735; 83880; 84145; 84484; 85025; 85379; 85610; 85730; 86140; 87635; 93005; 94640; 94760; 96374; 99285

== ENCOUNTER 2021-05-07 13:09 | Inpatient (IN) | payer MEDICARE, OTHER ==
[~2021-05-07 13:09] MED LIST changes: -ALPRAZolam 0.25 MG TAB PO PRN; -ALPRAZolam 0.5 MG TAB PO PRN; +APIXABAN 5 MG TAB PO SCH; -ASPIRIN 325 MG TAB PO STA; -ATORVASTATIN 80 MG TAB PO STA; -NITROGLYCERIN SL TABS 0.4 MG TAB SUBLINGUAL PRN; -SODIUM CHLORIDE 0.9% 1,000 ML in EMPTY BAG 1 BAG IV ONE
[2021-05-07] MEDS ORDERED: MORPHINE SULFATE 4 MG/ML SYRINGE IVP STA (13:38)
[2021-05-07 14:15] LABS: Basophils % (A) 0 %; Eosinophils # (A) 0.1 k/uL (0-0.7); Eosinophils % (A) 2 %; HCT 42.1 % (34.0-46.0); HGB 13.8 gm/dL (11.4-16.0); Lymphocytes % (A) 17 %; MCH 31.5 pg (25.0-35.0); MCHC 32.9 g/dL (31.0-37.0); MCV 95.6 fL (80.0-100.0); Mean Platelet Volume 7.4; Monocytes # (A) 0.3 k/uL (0-1.0); Monocytes % (A) 5 %; Neutrophils # (A) 4.3 k/uL (1.3-7.7); Neutrophils % (A) 75 %; Platelet Count 252 k/uL (150-450); RDW 13.2 % (11.5-15.5); WBC 5.8 k/uL (3.8-10.6)
[2021-05-07 14:42] LABS: Partial Thromboplastin Time 23.3 sec (22.0-30.0); Prothrombin Time 10.4 sec (9.0-12.0)
--- NOTE | 2021-05-07 14:45 | CT ---
EXAMINATION TYPE: CT facial bones wo con DATE OF EXAM: 05/07/2021 COMPARISON: None HISTORY: Fall, pain CT DLP: 1087.1 mGycm Automated exposure control for dose reduction was used. TECHNIQUE: CT scan of the sinuses is performed without contrast, axial images are obtained, coronal r eformatted images are also reviewed. FINDINGS: Postsurgical change involving the cervical spine. Parotid glands have a normal appearance. Nasopharynx and oropharynx symmetric. Orbits are symmetric. Degenerative change seen intracranially. Hyperostosis of the calvarium. Arthropathy of the TMJs noted. IMPRESSION: 1. No acute fractures.
--- NOTE | 2021-05-07 15:00 | CT ---
EXAMINATION TYPE: CT brain vanessa bear con DATE OF EXAM: 05/07/2021 COMPARISON: 03/03/2017 HISTORY: Pain CT DLP: 1087.1 mGycm Automated exposure control for dose reduction was used. TECHNIQUE: CT scan of the head and cervical spine are performed without contrast. FINDINGS: Hyperostosis of the calvarium. There is mild to moderate generalized degenerative change. Nonspecific low attenuation in the white matter bilaterally with the greatest involvement involving the occipital parietal junction. Similar prior exam compatible with remote ischemia. No acute hemorrhage. Orbits are symmetric. No significant changes of sinusitis. Assessment spinal canal is limited due to artifact and resolution. There is reversal of the normal ce rvical lordosis with postoperative changes involving levels C4-C7. Artifact limits assessment at this level from the postsurgical hardware. Multilevel foraminal encroachment and facet arthropathy presen t. Degenerative disc disease C3-C4 with anterior large hypertrophic spurs. Groundglass changes involv ing the lung apices could be on the basis of atelectasis or pneumonitis. IMPRESSION: 1. Degenerative and remote ischemic change with no acute hemorrhage or mass effect. 2. Postsurgical change with reversal of the normal cervical lordosis. See above. No acute fracture. M ultilevel foraminal encroachment suspected
--- NOTE | 2021-05-07 15:42 | XR ---
Bilateral knees HISTORY: Trauma and pain 3 views of each knee submitted on a total 6 images comparison to prior exam August 07, 2015 Patient is status post left knee arthroplasty, heterotopic new bone formation is present in the soft tissues. Alignment is maintained. Bone mineralization is reduced. Patient is post open reduction inte rnal fixation for distal right femoral fracture. Osteoarthritic changes present with tricompartmental joint space loss in the right knee. Suprapatellar increased density may be indicative of joint effus ion on the right. Crescentic bone density is present along the joint seen on the oblique view in the frontal view thought likely present in the infrapatellar region. Impression: Postop changes, osteoarthritic change present in the right knee. There may be loose body on the right.
[2021-05-07 15:54] LABS: ALT 17 U/L (4-34); AST 23 U/L (14-36); African American GFR (CKD) >90 (>60 ml/min/1.73 sqM); Albumin 2.8 g/dL (3.5-5.0); Alkaline Phosphatase 83 U/L (38-126); Anion Gap 2 mmol/L; Blood Urea Nitrogen 14 mg/dL (7-17); Calcium 8.2 mg/dL (8.4-10.2); Carbon Dioxide 33 mmol/L (22-30); Chloride 105 mmol/L (98-107); Glucose 111 mg/dL (74-99); Non-African American GFR(CKD) >90 (>60 ml/min/1.73 sqM); Potassium 3.7 mmol/L (3.5-5.1); Sodium 140 mmol/L (137-145); Total Bilirubin 0.3 mg/dL (0.2-1.3); Total Protein 5.1 g/dL (6.3-8.2)
[2021-05-07 16:03] LABS: Creatine Kinase MB 1.9 ng/mL (0.0-2.4)
--- NOTE | 2021-05-07 16:34 | ED ---
General Adult HPI - General Source: patient, EMS, RN notes reviewed Mode of arrival: EMS Limitations: no limitations <Jacob Tatum - Last Filed: 05/07/21 16:14> <Radha Romero - Last Filed: 05/15/21 00:53> - General Chief complaint: Fall Stated complaint: Fall Time Seen by Provider: 05/07/21 13:27 - History of Present Illness Initial comments: Patient is a 65-year-old female that presents to the emergency department complaining of 5 day history of weakness and several falls. She notes she does take blood thinners and fell today hitting her face and scraping her knees. She notes that she does not feel well. Patient was otherwise well-appearing. She denied any chest pain or numbness of breath headache nausea vomiting diarrhea constipation fever fatigue chills. (Jacob Tatum) - Related Data Home Medications Medication Instructions Recorded Confirmed Atorvastatin [Lipitor] 10 mg PO HS@199912/30/16 05/07/21 Metoprolol Tartrate [Lopressor] 12.5 mg PO BID@07,199902/25/17 05/07/21 Oxybutynin Xl [Ditropan XL] 5 mg PO BID@07,199902/25/17 05/07/21 Citalopram Hydrobromide [CeleXA] 40 mg PO DAILY@0700 11/05/18 05/07/21 Gabapentin [Neurontin] 200 mg PO DAILY@0700 05/19/19 05/07/21 metFORMIN HCL ER [Glucophage XR] 500 mg PO Q48H 05/19/19 05/07/21 Cyanocobalamin (Vitamin B-12) 1,000 mcg PO DAILY@0700 04/24/20 05/07/21 [Vitamin B-12] LORazepam [Ativan] 1 mg PO DAILY PRN 04/24/20 05/07/21 Vit C/E/Zn/Coppr/Lutein/Zeaxan 1 cap PO DAILY@0700 04/24/20 05/07/21 [Preservision Areds 2 Softgel] cloZAPine [Clozaril] 300 mg PO HS@199904/24/20 05/07/21 Benadryl Chappell 2-0.1% 1 applic TOPICAL QID PRN 04/03/21 05/07/21 Hyoscyamine Sulfate [Hyoscyamine 0.125 mg SL Q8H PRN 04/05/21 05/07/21 Sulfate SL] Apixaban [Eliquis] 5 mg PO BID@07,199905/07/21 05/07/21 Digoxin [Lanoxin] 125 mcg PO HS@199905/07/21 05/07/21 Isosorbide Mononitrate ER [Imdur] 60 mg PO DAILY@0700 05/07/21 05/07/21 guaiFENesin [guaiFENesin Oral 200 mg PO QID PRN 05/07/21 05/07/21 Solution] Previous Rx's Medication Instructions Recorded Ipratropium/Albuterol Sulfate 1 puff INHALATION TID #1 each 05/10/21 [Combivent Respimat Inhaler] predniSONE 0 mg PO DIRECTED #10 tab 05/10/21 Allergies Allergy/AdvReac Type Severity Reaction Status Date / Time lorazepam [From Ativan] Allergy Unknown Unknown Verified 05/07/21 14:34 bee venom protein (honey bee) Allergy Anaphylaxis Verified 05/07/21 14:34 acetaminophen [From Climax] AdvReac Confusion Verified 05/07/21 14:34 hydrocodone [From Climax] AdvReac Confusion Verified 05/07/21 14:34 Review of Systems ROS Other: All systems not noted in ROS Statement are negative. <Jacob Tatum - Last Filed: 05/07/21 16:14> ROS Other: All systems not noted in ROS Statement are negative. <Radha Romero - Last Filed: 05/15/21 00:53> ROS Statement: Those systems with pertinent positive or pertinent negative responses have been documented in the HPI. Past Medical History Past Medical History: Atrial Fibrillation, Coronary Artery Disease (CAD), Cancer, Heart Failure, COPD, CVA/TIA, Diabetes Mellitus, Eye Disorder, GERD/Reflux, Hyperlipidemia, Hypertension Additional Past Medical History / Comment(s): NIDDM type II, neuropathy bilateral feet, bronchial asthma, home oxygen prn, obesity, occasional lower extremity edema, past L axillae cellulitis/abscess-lengthy heal, shingles/staph, R eye wet macular degeneration/ L eye dry macular degeneration, uterine cancer with hysterectomy, TIA, hiatal hernia, uterine cancer with hysterectomy, tardive dyskinesia r/t psych medication, migraines, sinus problems, paroxysmal atrial fibrillation, past urinary retention w/ past chronic mackenzie, UTIs. History of Any Multi-Drug Resistant Organisms: None Reported Past Surgical History: Adenoidectomy, Cholecystectomy, Ear Surgery, Heart Catheterization, Hysterectomy, Tonsillectomy Additional Past Surgical History / Comment(s): I & D L axillae, L eye surgery for lazy eye, bilateral cataract removal, bilateral myringotomy/tubes, colonoscopy, bronchoscopy, cervical surgery Past Anesthesia/Blood Transfusion Reactions: No Reported Reaction Past Psychological History: Anxiety, Depression, Schizoaffective Disorder Smoking Status: Never smoker Past Alcohol Use History: None Reported Past Drug Use History: None Reported - Past Family History Mother Family Medical History: Myocardial Infarction (SD) Additional Family Medical History / Comment(s): Mother at 72 yrs. Father Family Medical History: Cancer Additional Family Medical History / Comment(s): Throat cancer; father at 72 yrs. Brother(s) Family Medical History: Cancer Additional Family Medical History / Comment(s): Liver cancer <Jacob Tatum - Last Filed: 05/07/21 16:14> General Exam Limitations: no limitations General appearance: alert, in no apparent distress Head exam: Present: normocephalic, normal inspection. Absent: atraumatic (Small abrasions to the forehead) Eye exam: Present: normal appearance, PERRL, EOMI. Absent: scleral icterus, conjunctival injection, periorbital swelling ENT exam: Present: normal exam, mucous membranes moist Neck exam: Present: normal inspection Respiratory exam: Present: normal lung sounds bilaterally. Absent: respiratory distress, wheezes, rales, rhonchi, stridor Cardiovascular Exam: Present: regular rate, normal rhythm, normal heart sounds. Absent: systolic murmur, diastolic murmur, rubs, gallop, clicks GI/Abdominal exam: Present: soft, normal bowel sounds. Absent: distended, tenderness, guarding, rebound, rigid Extremities exam: Present: normal inspection, full ROM, normal capillary refill. Absent: tenderness, pedal edema, joint swelling, calf tenderness Neurological exam: Present: alert, oriented X3 Psychiatric exam: Present: normal affect, normal mood Skin exam: Present: warm, dry, intact, normal color, abrasion (Bilateral knees). Absent: rash <Jacob Tatum - Last Filed: 05/07/21 16:14> Course Vital Signs 05/07/21 05/07/21 05/07/21 13:11 14:31 17:00 Temperature 97.3 F L Pulse Rate 89 86 90 Pulse Rate [ Sitting [employer]] Pulse Rate [ Standing [employer] ] Pulse Rate [ Supine [employer]] Respiratory 16 16 18 Rate Blood Pressure 126/78 120/66 121/72 Blood Pressure [Sitting] Blood Pressure [Standing] Blood Pressure [Supine] O2 Sat by Pulse 95 97 95 Oximetry 05/07/21 17:15 Temperature Pulse Rate Pulse Rate [ 95 [employer]itting [employer]] Pulse Rate [ 98 [employer] ] Pulse Rate [ 90 Supine [employer]] Respiratory Rate Blood Pressure Blood Pressure 131/77 [Sitting] Blood Pressure 138/83 [Standing] Blood Pressure 120/70 [Supine] O2 Sat by Pulse Oximetry EKG Findings - EKG Comments: EKG Findings:: Ventricular rate 89 bpm, MI interval 126 ms, QRS duration 82 ms, QTC 450 ms, PRT axes 45/-1/-20. Normal sinus rhythm, minimal voltage criteria for LVH. Inferior infarct age undetermined, abnormal ECG. <Jacob Tatum - Last Filed: 05/07/21 16:14> Medical Decision Making - Lab Data Result diagrams: 05/07/21 13:31 05/07/21 15:32 - EKG Data -: EKG Interpreted by Sd EKG shows normal: sinus rhythm Rate: normal - Radiology Data Radiology results: report reviewed, image reviewed <Jacob Tatum - Last Filed: 05/07/21 16:14> - Lab Data Result diagrams: 05/07/21 13:31 05/07/21 15:32 <Radha Romero - Last Filed: 05/15/21 00:53> - Medical Decision Making 65-year-old female complaining of weakness and several falls with blood thinner s. Labs, 4 monos morphine, x-rays of bilateral knees, EKG, CT of the brain and C- spine, CT of the facial bones ordered. Labs: CBC and coagulation studies unremarkable, CMP unremarkable, X-ray of the bilateral knees: Postop changes osteoarthritic change present right knee. They may be blue spotty on the right. CT of the brain and C-spine: Degenerative and remote ischemic changes with no acute hemorrhage or mass effect. Postsurgical changes with reversal of the normal cervical lordosis. No acute fracture. Multilevel foraminal encroachment suspected. CT of the facial bones: No acute fractures. Case discussed with Dr. Romero, patient will be admitted for observation for ongoing weakness and several falls on blood thinners. Dr. Elizabeth was consulted and will accept the admit. (Jacob Tatum) I was available for consultation in the emergency department. The history and physical exam were done by the midlevel provider. I was consulted for this patients care. I reviewed the case with the midlevel provider and based on their presentation of the patient, I agree with the assessment, medical decision making and plan of care as documented. Chart was dictated using [employer] dictation software. Attempts were made to correct any dictation errors however some typographical errors may persist. Patient was seen during a national state of emergency due to the Covid-19 pandemic. (Radha Romero) - Lab Data Lab Results 05/07/21 05/07/21 05/07/21 Range/Units 13:31 13:31 15:32 WBC 5.8 (3.8-10.6) k/uL RBC 4.40 (3.80-5.40) m/uL Hgb 13.8 (11.4-16.0) gm/dL Hct 42.1 (34.0-46.0) % MCV 95.6 (80.0-100.0) fL MCH 31.5 (25.0-35.0) pg MCHC 32.9 (31.0-37.0) g/dL RDW 13.2 (11.5-15.5) % Plt Count 252 (150-450) k/uL MPV 7.4 Neutrophils % 75 % Lymphocytes % 17 % Monocytes % 5 % Eosinophils % 2 % Basophils % 0 % Neutrophils # 4.3 (1.3-7.7) k/uL Lymphocytes # 1.0 (1.0-4.8) k/uL Monocytes # 0.3 (0-1.0) k/uL Eosinophils # 0.1 (0-0.7) k/uL Basophils # 0.0 (0-0.2) k/uL PT 10.4 (9.0-12.0) sec INR 1.0 (<1.2) APTT 23.3 (22.0-30.0) sec Sodium 140 (137-145) mmol/L Potassium 3.7 (3.5-5.1) mmol/L Chloride 105 (98-107) mmol/L Carbon Dioxide 33 H (22-30) mmol/L Anion Gap 2 mmol/L BUN 14 (7-17) mg/dL Creatinine 0.68 (0.52-1.04) mg/dL Est GFR (CKD-EPI)AfAm >90 (>60 ml/min/1.73 sqM) Est GFR (CKD-EPI)NonAf >90 (>60 ml/min/1.73 sqM) Glucose 111 H (74-99) mg/dL POC Glucose (mg/dL) (75-99) mg/dL POC Glu Survey Instrument Operator ID Calcium 8.2 L (8.4-10.2) mg/dL Total Bilirubin 0.3 (0.2-1.3) mg/dL AST 23 (14-36) U/L ALT 17 (4-34) U/L Alkaline Phosphatase 83 (38-126) U/L Total Creatine Kinase (30-135) U/L CK-MB (CK-2) (0.0-2.4) ng/mL CK-MB (CK-2) Rel Index Total Protein 5.1 L (6.3-8.2) g/dL Albumin 2.8 L (3.5-5.0) g/dL Urine Color Urine Appearance (Clear) Urine pH (5.0-8.0) Ur Specific [place] (1.001-1.035) Urine Protein (Negative) Urine Glucose (UA) (Negative) Urine Ketones (Negative) Urine Blood (Negative) Urine Nitrite (Negative) Urine Bilirubin (Negative) Urine Urobilinogen (<2.0) mg/dL Ur Leukocyte Esterase (Negative) Urine RBC (0-5) /hpf Urine WBC (0-5) /hpf Ur Squamous Epith Cells (0-4) /hpf Urine Mucus (None) /hpf Coronavirus (PCR) (Not Detectd) 05/07/21 05/07/21 05/08/21 Range/Units 15:32 17:02 07:41 WBC (3.8-10.6) k/uL RBC (3.80-5.40) m/uL Hgb (11.4-16.0) gm/dL Hct (34.0-46.0) % MCV (80.0-100.0) fL MCH (25.0-35.0) pg MCHC (31.0-37.0) g/dL RDW (11.5-15.5) % Plt Count (150-450) k/uL MPV Neutrophils % % Lymphocytes % % Monocytes % % Eosinophils % % Basophils % % Neutrophils # (1.3-7.7) k/uL Lymphocytes # (1.0-4.8) k/uL Monocytes # (0-1.0) k/uL Eosinophils # (0-0.7) k/uL Basophils # (0-0.2) k/uL PT (9.0-12.0) sec INR (<1.2) APTT (22.0-30.0) sec Sodium (137-145) mmol/L Potassium (3.5-5.1) mmol/L Chloride (98-107) mmol/L Carbon Dioxide (22-30) mmol/L Anion Gap mmol/L BUN (7-17) mg/dL Creatinine (0.52-1.04) mg/dL Est GFR (CKD-EPI)AfAm (>60 ml/min/1.73 sqM) Est GFR (CKD-EPI)NonAf (>60 ml/min/1.73 sqM) Glucose (74-99) mg/dL POC Glucose (mg/dL) 169 H (75-99) mg/dL POC Glu Survey Instrument Operator ID Kacie Estrella Calcium (8.4-10.2) mg/dL Total Bilirubin (0.2-1.3) mg/dL AST (14-36) U/L ALT (4-34) U/L Alkaline Phosphatase (38-126) U/L Total Creatine Kinase 67 (30-135) U/L CK-MB (CK-2) 1.9 (0.0-2.4) ng/mL CK-MB (CK-2) Rel Index 2.8 Total Protein (6.3-8.2) g/dL Albumin (3.5-5.0) g/dL Urine Color Urine Appearance (Clear) Urine pH (5.0-8.0) Ur Specific [place] (1.001-1.035) Urine Protein (Negative) Urine Glucose (UA) (Negative) Urine Ketones (Negative) Urine Blood (Negative) Urine Nitrite (Negative) Urine Bilirubin (Negative) Urine Urobilinogen (<2.0) mg/dL Ur Leukocyte Esterase (Negative) Urine RBC (0-5) /hpf Urine WBC (0-5) /hpf Ur Squamous Epith Cells (0-4) /hpf Urine Mucus (None) /hpf Coronavirus (PCR) Not Detected (Not Detectd) 05/08/21 05/08/21 05/08/21 Range/Units 10:15 12:07 17:31 WBC (3.8-10.6) k/uL RBC (3.80-5.40) m/uL Hgb (11.4-16.0) gm/dL Hct (34.0-46.0) % MCV (80.0-100.0) fL MCH (25.0-35.0) pg MCHC (31.0-37.0) g/dL RDW (11.5-15.5) % Plt Count (150-450) k/uL MPV Neutrophils % % Lymphocytes % % Monocytes % % Eosinophils % % Basophils % % Neutrophils # (1.3-7.7) k/uL Lymphocytes # (1.0-4.8) k/uL Monocytes # (0-1.0) k/uL Eosinophils # (0-0.7) k/uL Basophils # (0-0.2) k/uL PT (9.0-12.0) sec INR (<1.2) APTT (22.0-30.0) sec Sodium (137-145) mmol/L Potassium (3.5-5.1) mmol/L Chloride (98-107) mmol/L Carbon Dioxide (22-30) mmol/L Anion Gap mmol/L BUN (7-17) mg/dL Creatinine (0.52-1.04) mg/dL Est GFR (CKD-EPI)AfAm (>60 ml/min/1.73 sqM) Est GFR (CKD-EPI)NonAf (>60 ml/min/1.73 sqM) Glucose (74-99) mg/dL POC Glucose (mg/dL) 195 H 194 H (75-99) mg/dL POC Glu Survey Instrument Operator ID Sameer, Kacie Sameer, Kacie Calcium (8.4-10.2) mg/dL Total Bilirubin (0.2-1.3) mg/dL AST (14-36) U/L ALT (4-34) U/L Alkaline Phosphatase (38-126) U/L Total Creatine Kinase (30-135) U/L CK-MB (CK-2) (0.0-2.4) ng/mL CK-MB (CK-2) Rel Index Total Protein (6.3-8.2) g/dL Albumin (3.5-5.0) g/dL Urine Color Yellow Urine Appearance Clear (Clear) Urine pH 6.0 (5.0-8.0) Ur Specific [place] 1.019 (1.001-1.035) Urine Protein 1+ H (Negative) Urine Glucose (UA) Negative (Negative) Urine Ketones 1+ H (Negative) Urine Blood Negative (Negative) Urine Nitrite Negative (Negative) Urine Bilirubin Negative (Negative) Urine Urobilinogen <2.0 (<2.0) mg/dL Ur Leukocyte Esterase Trace H (Negative) Urine RBC 17 H (0-5) /hpf Urine WBC 4 (0-5) /hpf Ur Squamous Epith Cells 3 (0-4) /hpf Urine Mucus Few H (None) /hpf Coronavirus (PCR) (Not Detectd) 05/08/21 05/09/21 Range/Units 22:53 07:33 WBC (3.8-10.6) k/uL RBC (3.80-5.40) m/uL Hgb (11.4-16.0) gm/dL Hct (34.0-46.0) % MCV (80.0-100.0) fL MCH (25.0-35.0) pg MCHC (31.0-37.0) g/dL RDW (11.5-15.5) % Plt Count (150-450) k/uL MPV Neutrophils % % Lymphocytes % % Monocytes % % Eosinophils % % Basophils % % Neutrophils # (1.3-7.7) k/uL Lymphocytes # (1.0-4.8) k/uL Monocytes # (0-1.0) k/uL Eosinophils # (0-0.7) k/uL Basophils # (0-0.2) k/uL PT (9.0-12.0) sec INR (<1.2) APTT (22.0-30.0) sec Sodium (137-145) mmol/L Potassium (3.5-5.1) mmol/L Chloride (98-107) mmol/L Carbon Dioxide (22-30) mmol/L Anion Gap mmol/L BUN (7-17) mg/dL Creatinine (0.52-1.04) mg/dL Est GFR (CKD-EPI)AfAm (>60 ml/min/1.73 sqM) Est GFR (CKD-EPI)NonAf (>60 ml/min/1.73 sqM) Glucose (74-99) mg/dL POC Glucose (mg/dL) 210 H 146 H (75-99) mg/dL POC Glu Survey Instrument Operator Aditya Olsen Jennifer Calcium (8.4-10.2) mg/dL Total Bilirubin (0.2-1.3) mg/dL AST (14-36) U/L ALT (4-34) U/L Alkaline Phosphatase (38-126) U/L Total Creatine Kinase (30-135) U/L CK-MB (CK-2) (0.0-2.4) ng/mL CK-MB (CK-2) Rel Index Total Protein (6.3-8.2) g/dL Albumin (3.5-5.0) g/dL Urine Color Urine Appearance (Clear) Urine pH (5.0-8.0) Ur Specific [place] (1.001-1.035) Urine Protein (Negative) Urine Glucose (UA) (Negative) Urine Ketones (Negative) Urine Blood (Negative) Urine Nitrite (Negative) Urine Bilirubin (Negative) Urine Urobilinogen (<2.0) mg/dL Ur Leukocyte Esterase (Negative) Urine RBC (0-5) /hpf Urine WBC (0-5) /hpf Ur Squamous Epith Cells (0-4) /hpf Urine Mucus (None) /hpf Coronavirus (PCR) (Not Detectd) - EKG Data EKG Comments: Ventricular rate 89 bpm, MI interval 126 ms, QRS duration 82 ms, QTC 450 ms, PRT axes 45/-1/-20. Normal sinus rhythm, minimal voltage criteria for LVH. Inferior infarct age undetermined, abnormal ECG. (Jacob Tatum) - Radiology Data X-ray of the bilateral knees: Postop changes osteoarthritic change present right knee. They may be blue spotty on the right. CT of the brain and C-spine: Degenerative and remote ischemic changes with no acute hemorrhage or mass effect. Postsurgical changes with reversal of the normal cervical lordosis. No acute fracture. Multilevel foraminal encroachment suspected. CT of the facial bones: No acute fractures. (Jacob Tatum) Disposition Is patient prescribed a controlled substance at d/c from ED?: No Time of Disposition: 17:02 <Jacob Tatum - Last Filed: 05/07/21 16:14> <Radha Romero - Last Filed: 05/15/21 00:53> Clinical Impression: Fall, Knee abrasion, Facial abrasion Disposition: ADMITTED IP TO THIS HOSP Condition: Stable
[2021-05-07] MEDS ORDERED: NALOXONE 0.4 MG/ML 1 ML VIAL IV PRN (16:50)
[2021-05-07] MEDS ORDERED: MORPHINE SULFATE 4 MG/ML SYRINGE IV PRN (16:50)
[2021-05-07] MEDS ORDERED: SODIUM CHLORIDE 0.9% 1,000 ML IV SCH ×2 (17:00→22:15)
[2021-05-07] MEDS ORDERED: HYOSCYAMINE SULFATE 0.125 MG TAB PO PRN (18:05)
[2021-05-07] MEDS ORDERED: LORazepam 1 MG TAB PO PRN (18:05)
[2021-05-07] MEDS ORDERED: guaiFENesin SYRUP 100MG/5ML 200 MG/10 ML CUP PO PRN (18:05)
[2021-05-07] MEDS ORDERED: MELATONIN 3 MG TABLET PO PRN (18:07)
[2021-05-07] MEDS ORDERED: LORazepam 0.5 MG TAB PO PRN (18:07)
[2021-05-07] MEDS ORDERED: PROCHLORPERAZINE 5 MG TAB PO PRN (18:07)
[2021-05-07] MEDS: cloZAPine 100 MG TAB PO SCH (20:50)
[2021-05-07] MEDS: ATORVASTATIN 10 MG TAB PO SCH (20:50)
[2021-05-07] MEDS: ASCORBIC ACID 500 MG TAB PO SCH (20:50)
[2021-05-07] MEDS: METOPROLOL TARTRATE 12.5 MG TAB PO SCH (20:50)
[2021-05-07] MEDS: OXYBUTYNIN XL 5 MG TAB.ER.24 PO SCH (20:50)
[2021-05-07] MEDS: METFORMIN HCL 500 MG PO SCH (20:51)
[2021-05-07] MEDS: DIGOXIN 125 MCG TAB PO SCH (21:58)
--- NOTE | 2021-05-07 22:07 | P.HPIM ---
History of Present Illness H&P Date: 05/07/21 Chief Complaint: Weaknesses falls History of presenting complaint: pleasant 65-year-old patient of visiting physician Dr. Gomes. Resident of [facility] . Does use a walker . Chronic stable medical conditions include asthma diabetes mellitus type 2, hypertension, hyperlipidemia, hiatal hernia, peripheral neuropathy, schizoaffective disorder, GERD. Patient admitted from April 05 through April 14 [2020]. with COVID 19 pneumonitis, acute hypoxic respiratory failure, acute asthma exacerbation. Patient now presents with feeling weak. The last 5 days she's been following about once a day. Appetite is slightly decreased. Feels dizzy. Has a congested cough. Bringing up little sputum. Denies any fever and chills. Does not pass out. She has a forehead abrasion secondary to fall. Legs feels weak. Review of systems: GEN.: Tired, decreased appetite, EYES: None HEENT: None NECK: None RESPIRATORY: Short of breath, wheezing, congested cough CARDIOVASCULAR: None GASTROINTESTINAL: None GENITOURINARY: None MUSCULOSKELETAL: Joint pains LYMPHATICS: None HEMATOLOGICAL: None PSYCHIATRY: A bit forgetful NEUROLOGICAL: Uses a walker Past medical history to include: COVID-19 positive diagnosed on 04/03/2021. Persistent bronchial asthma, diabetes mellitus type 2, hypertension, hyperlipidemia, obesity, hiatal hernia, idiopathic peripheral neuropathy, GERD, schizoaffective disorder bipolar type, atrial fibrillation, macular degeneration, uterine cancer with hysterectomy, tardive dyskinesia, use a walker Social history: Lives at the [facility], does use a walker. Stopped drinking alcohol in 2006. Never smoked. Physical examination: VITAL SIGNS: 97.3, 89, 16, 126/78, 95% on room air GENERAL: BMI 28, laying in bed, awake, tired, congested cough EYES: Pupils equal. Conjunctiva normal. HEENT: External appearance of nose and ears normal, oral cavity grossly normal. Abrasion on the forehead NECK: JVD unable to assess; masses not palpable. HEART: First and second heart sounds are normal; no edema. LUNGS: Respiratory rate increased, decreased breath sounds. Coarse crackles, wheezing ABDOMEN: Soft, nontender, liver spleen not palpable, no masses palpable. PSYCH: Alert and oriented x3; mood and affect anxious. NEUROLOGICAL: Cranial nerves grossly intact; no facial asymmetry, power and sensation grossly intact. LYMPHATICS: No lymph nodes palpable in the axilla and neck INVESTIGATIONS, reviewed in the clinical context: White count 5.8 hemoglobin 13.8 platelets 252 potassium 3.7 BUN 14 creatinine 0.68 Coronavirus [PCR]: Not detected EKG tracing personally reviewed by me-normal sinus rhythm. Bilateral knees: osteoarthritis changes. No fracture Computed tomography scan brain spine without contrast: EGD changes. No acute changes. No fracture. Face CT: No fracture Assessment and plan: --Acute exacerbation of Moderate persistent asthma, IV Solu-Medrol 40 mg every 8.. DuoNeb 4 times a day. Pulmicort 10 long-acting beta agonist nebulizer -Diabetes mellitus type 2, on oral hypoglycemic. metformin . Follow Accu-Cheks -Essential Hypertension Lopressor 12.5 by mouth twice a day -Hyperlipidemia Lipitor 10 mg daily at bedtime -Diabetic peripheral neuropathy Neurontin 200 mg daily -GERD Tums when necessary -Paroxysmal atrial fibrillation currently sinus rhythm Lopressor 12.5 by mouth twice a day. Eliquis 5 mg twice a day -Schizoaffective disorder Clozaril 300 mg daily at bedtime Celexa 40 mg daily -Chronic urinary stress incontinence Ditropan XL 5 mg twice a day -Full code DuoNeb. Nebulized Pulmicort and long-acting beta agonist. IV Solu-Medrol. Resume home medications. Basic dressing and put on forehead. Past Medical History Past Medical History: Atrial Fibrillation, Coronary Artery Disease (CAD), Cancer, Heart Failure, COPD, CVA/TIA, Diabetes Mellitus, Eye Disorder, GERD/Reflux, Hyperlipidemia, Hypertension Additional Past Medical History / Comment(s): NIDDM type II, neuropathy bilateral feet, bronchial asthma, home oxygen prn, obesity, occasional lower extremity edema, past L axillae cellulitis/abscess-lengthy heal, shingles/staph, R eye wet macular degeneration/ L eye dry macular degeneration, uterine cancer with hysterectomy, TIA, hiatal hernia, uterine cancer with hysterectomy, tardive dyskinesia r/t psych medication, migraines, sinus problems, paroxysmal atrial fibrillation, past urinary retention w/ past chronic mackenzie, UTIs. History of Any Multi-Drug Resistant Organisms: None Reported Past Surgical History: Adenoidectomy, Cholecystectomy, Ear Surgery, Heart Catheterization, Hysterectomy, Tonsillectomy Additional Past Surgical History / Comment(s): I & D L axillae, L eye surgery for lazy eye, bilateral cataract removal, bilateral myringotomy/tubes, colonoscopy, bronchoscopy, cervical surgery Past Anesthesia/Blood Transfusion Reactions: No Reported Reaction Past Psychological History: Anxiety, Depression, Schizoaffective Disorder Additional Psychological History / Comment(s): Pt resides at [facility]. She uses a walker to ambulate. She gets to [facility] by bus. She has a glucometer. She has oxygen which she wears prn. Smoking Status: Never smoker Past Alcohol Use History: None Reported Additional Past Alcohol Use History / Comment(s): Pt quit drinking in 2006. Past Drug Use History: None Reported - Past Family History Mother Family Medical History: Myocardial Infarction ([place]) Additional Family Medical History / Comment(s): Mother at 72 yrs. Father Family Medical History: Cancer Additional Family Medical History / Comment(s): Throat cancer; father at 72 yrs. Brother(s) Family Medical History: Cancer Additional Family Medical History / Comment(s): Liver cancer Medications and Allergies Home Medications Medication Instructions Recorded Confirmed Type Atorvastatin [Lipitor] 10 mg PO HS@199912/30/16 05/07/21 History Metoprolol Tartrate [Lopressor] 12.5 mg PO BID@07,199902/25/17 05/07/21 History Oxybutynin Xl [Ditropan XL] 5 mg PO BID@07,199902/25/17 05/07/21 History Citalopram Hydrobromide [CeleXA] 40 mg PO DAILY@0711/05/18 05/07/21 History Gabapentin [Neurontin] 200 mg PO DAILY@0705/19/19 05/07/21 History metFORMIN HCL ER [Glucophage XR] 500 mg PO Q48H 05/19/19 05/07/21 History Cyanocobalamin (Vitamin B-12) 1,000 mcg PO DAILY@0700 04/24/20 05/07/21 History [Vitamin B-12] LORazepam [Ativan] 1 mg PO DAILY PRN 04/24/20 05/07/21 History Vit C/E/Zn/Coppr/Lutein/Zeaxan 1 cap PO DAILY@0700 04/24/20 05/07/21 History [Preservision Areds 2 Softgel] cloZAPine [Clozaril] 300 mg PO HS@199904/24/20 05/07/21 History Ascorbic Acid [Vitamin C] 500 mg PO BID@07,199904/03/21 05/07/21 History Benadryl Mclean 2-0.1% 1 applic TOPICAL QID PRN 04/03/21 05/07/21 History Furosemide [Lasix] 20 mg PO DAILY@0700 04/03/21 05/07/21 History Hyoscyamine Sulfate [Hyoscyamine 0.125 mg SL Q8H PRN 04/05/21 05/07/21 History Sulfate SL] Apixaban [Eliquis] 5 mg PO BID@07,199905/07/21 05/07/21 History Digoxin [Lanoxin] 125 mcg PO HS@199905/07/21 05/07/21 History Isosorbide Mononitrate ER [Imdur] 60 mg PO DAILY@0700 05/07/21 05/07/21 History Zinc Sulfate [Orazinc] 220 mg PO DAILY@0700 05/07/21 05/07/21 History guaiFENesin [guaiFENesin Oral 200 mg PO QID PRN 05/07/21 05/07/21 History Solution] Allergies Allergy/AdvReac Type Severity Reaction Status Date / Time lorazepam [From Ativan] Allergy Unknown Unknown Verified 05/07/21 14:34 bee venom protein (honey bee) Allergy Anaphylaxis Verified 05/07/21 14:34 acetaminophen [From [facility]] AdvReac Confusion Verified 05/07/21 14:34 hydrocodone [From [facility]] AdvReac Confusion Verified 05/07/21 14:34 Physical Exam Vitals: Vital Signs Temp Pulse Pulse Pulse Pulse Pulse Resp 05/07/21 20:00 97.8 F 104 H 19 05/07/21 17:15 95 98 90 05/07/21 17:00 90 18 05/07/21 14:31 86 16 05/07/21 13:11 97.3 F L 89 16 BP BP BP BP BP Pulse Ox 05/07/21 20:00 116/68 92 L 05/07/21 17:15 131/77 138/83 120/70 05/07/21 17:00 121/72 95 05/07/21 14:31 120/66 97 05/07/21 13:11 126/78 95 Intake and Output 05/07/21 05/07/21 05/07/21 06:59 14:59 22:59 Other: Weight 73.936 kg 73.936 kg Results CBC & Chem 7: 05/07/21 13:31 05/07/21 15:32 Labs: Abnormal Lab Results - Last 24 Hours (Table) 05/07/21 Range/Units 15:32 Carbon Dioxide 33 H (22-30) mmol/L Glucose 111 H (74-99) mg/dL Calcium 8.2 L (8.4-10.2) mg/dL Total Protein 5.1 L (6.3-8.2) g/dL Albumin 2.8 L (3.5-5.0) g/dL Thrombosis Risk Factor Assmnt - Choose All That Apply Each Risk Factor Represents 2 Points: Age 61-74 years Thrombosis Risk Factor Assessment Total Risk Factor Score: 2 Thrombosis Risk Factor Assessment Level: Low Risk
[2021-05-07] MEDS: IPRATROPIUM-ALBUTEROL 3 ML NEB INHALATION SCH (22:15)
[2021-05-07] MEDS: BUDESONIDE 1 MG/2 ML NEBU INHALATION SCH (22:16)
[2021-05-07] MEDS: FORMOTEROL FUMARATE 20 MCG/2 ML NEBU INHALATION SCH (22:16)
[2021-05-07] MEDS: BACITRACIN OINT 1 EACH PACKET TOPICAL SCH (23:49)
[2021-05-07] MEDS: ACETAMINOPHEN TAB 325 MG TAB PO PRN (23:49)
[2021-05-07] MEDS: APIXABAN 5 MG TAB PO SCH (23:49)
[2021-05-07] MEDS: methylPREDNISolone SOD SUCCI 40 MG/ML 1 ML VIAL IV SCH (23:50)
[2021-05-08] MEDS: methylPREDNISolone SOD SUCCI 40 MG/ML 1 ML VIAL IV SCH ×3 (05:49→23:57)
[2021-05-08 07:43] LABS: Glucose,Whole Blood 169 mg/dL (75-99)
[2021-05-08] MEDS: CYANOCOBALAMIN 500 MCG TAB PO SCH (08:12)
[2021-05-08] MEDS: ASCORBIC ACID 500 MG TAB PO SCH ×2 (08:12→19:46)
[2021-05-08] MEDS: CITALOPRAM HYDROBROMIDE 20 MG TAB PO SCH (08:12)
[2021-05-08] MEDS: OXYBUTYNIN XL 5 MG TAB.ER.24 PO SCH ×2 (08:13→19:46)
[2021-05-08] MEDS: ISOSORBIDE MONONITRATE ER 60 MG TAB.ER.24H PO SCH (08:13)
[2021-05-08] MEDS: GABAPENTIN 100 MG CAP PO SCH (08:13)
[2021-05-08] MEDS: VIT A,C & E-LUTEIN-MINERALS 1 EACH TAB PO SCH (08:13)
[2021-05-08] MEDS: METOPROLOL TARTRATE 12.5 MG TAB PO SCH ×2 (08:13→19:46)
[2021-05-08] MEDS: ZINC SULFATE 220 MG CAP PO SCH (08:13)
[2021-05-08] MEDS: APIXABAN 5 MG TAB PO SCH ×2 (08:14→19:45)
[2021-05-08] MEDS: BACITRACIN OINT 1 EACH PACKET TOPICAL SCH ×3 (08:15→19:46)
[2021-05-08] MEDS: BUDESONIDE 1 MG/2 ML NEBU INHALATION SCH ×2 (08:16→21:18)
[2021-05-08] MEDS: IPRATROPIUM-ALBUTEROL 3 ML NEB INHALATION SCH ×4 (08:16→21:18)
[2021-05-08] MEDS: FORMOTEROL FUMARATE 20 MCG/2 ML NEBU INHALATION SCH ×2 (08:16→21:18)
--- NOTE | 2021-05-08 09:51 | XR ---
EXAMINATION TYPE: XR chest 2V DATE OF EXAM: 05/08/2021 COMPARISON: 04/14/2021 TECHNIQUE: PA and lateral views submitted. HISTORY: Cough and congestion FINDINGS: The lungs are clear and there is no pneumothorax, pleural effusion, or focal pneumonia. Interstitia l pattern seen. Subsegmental changes lung bases. Surgical clips in the abdomen. IMPRESSION: 1. Correlate for interstitial venous congestion or interstitial pneumonitis with basilar atelectasis or early infiltrate..
[2021-05-08 10:38] LABS: Appearance,Urine Clear (Clear); Bilirubin,Urine Negative (Negative); Blood,Urine Negative (Negative); Color,Urine Yellow; Glucose,Urine (UA) Negative (Negative); Ketones,Urine 1+ (Negative); Leukocyte Esterase,Urine Trace (Negative); Mucus,Urine Few /hpf; Nitrite,Urine Negative (Negative); Protein,Urine 1+ (Negative); RBC,Urine 17 /hpf (0-5); Specific Gravity,Urine 1.019 (1.001-1.035); Squamous Epithelial Cell,Urine 3 /hpf (0-4); Urobilinogen,Urine <2.0 mg/dL (<2.0); WBC,Urine 4 /hpf (0-5)
[2021-05-08 12:09] LABS: Glucose,Whole Blood 195 mg/dL (75-99)
--- NOTE | 2021-05-08 17:00 | P.PN ---
Progress Note - Text Progress Note Date: 05/08/21 Chief Complaint: Weaknesses falls History of presenting complaint: pleasant 65-year-old patient of visiting physician Dr. Gomes. Resident of [facility] . Does use a walker . Chronic stable medical conditions include asthma diabetes mellitus type 2, hypertension, hyperlipidemia, hiatal hernia, peripheral neuropathy, schizoaffective disorder, GERD. Patient admitted from April 05 through April 14 [2020]. with COVID 19 pneumonitis, acute hypoxic respiratory failure, acute asthma exacerbation. Patient now presents with feeling weak. The last 5 days she's been following about once a day. Appetite is slightly decreased. Feels dizzy. Has a congeste d cough. Bringing up little sputum. Denies any fever and chills. Does not pass out. She has a forehead abrasion secondary to fall. Legs feels weak. Admitted with acute asthma exacerbation and acute medical debility from the same. Started on IV fluids, steroids, bronchodilators. May 08: Feeling better. Improving this very symptoms. Had about 50% of breakfast/lunch. Have the patient sit up in a chair. Review of systems: Was done for constitutional, cardiovascular, GI, pulmonary. relevant finding as above Active Medications Acetaminophen (Acetaminophen Tab 325 Mg Tab) 650 mg PO Q6HR PRN PRN Reason: Fever and/ or Pain Last Admin: 05/07/21 23:49 Dose: 650 mg Documented by: Albuterol/Ipratropium (Ipratropium-Albuterol 3 Ml Neb) 3 ml INHALATION RT-QID [facility] Last Admin: 05/08/21 15:46 Dose: 3 ml Documented by: Apixaban (Apixaban 5 Mg Tab) 5 mg PO BID [facility]; Protocol Last Admin: 05/08/21 08:14 Dose: 5 mg Documented by: Ascorbic Acid (Ascorbic Acid 500 Mg Tab) 500 mg PO BID@0700,1999 [facility] Last Admin: 05/08/21 08:12 Dose: 500 mg Documented by: Atorvastatin Calcium (Atorvastatin 10 Mg Tab) 10 mg PO HS@1999 [facility] Last Admin: 05/07/21 20:50 Dose: 10 mg Documented by: Bacitracin (Bacitracin Oint 1 Each Packet) 1 each TOPICAL TID [facility]; Protocol Last Admin: 05/08/21 15:41 Dose: 1 each Documented by: Budesonide (Budesonide 1 Mg/2 Ml Nebu) 1 mg INHALATION RT-BID [facility] Last Admin: 05/08/21 08:16 Dose: 1 mg Documented by: Citalopram Hydrobromide (Citalopram Hydrobromide 20 Mg Tab) 40 mg PO DAILY@699 [facility] Last Admin: 05/08/21 08:12 Dose: 40 mg Documented by: Clozapine (Clozapine 100 Mg Tab) 300 mg PO HS@1999 [facility] Stop: 05/14/21 23:00 Last Admin: 05/07/21 20:50 Dose: 300 mg Documented by: Cyanocobalamin (Cyanocobalamin 500 Mcg Tab) 1,000 mcg PO DAILY@699 [facility] Last Admin: 05/08/21 08:12 Dose: 1,000 mcg Documented by: Digoxin (Digoxin 125 Mcg Tab) 125 mcg PO HS@1999 [facility] Last Admin: 05/07/21 21:58 Dose: 125 mcg Documented by: Formoterol Fumarate (Formoterol Fumarate 20 Mcg/2 Ml Nebu) 20 mcg INHALATION RT-BID [facility] Last Admin: 05/08/21 08:16 Dose: 20 mcg Documented by: Gabapentin (Gabapentin 100 Mg Cap) 200 mg PO DAILY@699 [facility] Last Admin: 05/08/21 08:13 Dose: 200 mg Documented by: Guaifenesin (Guaifenesin Syrup 100mg/5ml 200 Mg/10 Ml Cup) 200 mg PO QID PRN PRN Reason: Cough Hyoscyamine (Hyoscyamine Sulfate 0.125 Mg Tab) 0.125 mg PO Q8H PRN PRN Reason: DROOLING Isosorbide Mononitrate (Isosorbide Mononitrate Er 60 Mg Tab.Er.24h) 60 mg PO DAILY@699 [facility] Last Admin: 05/08/21 08:13 Dose: 60 mg Documented by: Lorazepam (Lorazepam 1 Mg Tab) 1 mg PO DAILY PRN PRN Reason: Anxiety Melatonin (Melatonin 3 Mg Tablet) 3 mg PO HS PRN PRN Reason: Insomnia Methylprednisolone Sodium Succinate (Methylprednisolone Sod Succi 40 Mg/Ml 1 Ml Vial) 40 mg IV Q8H [facility] Last Admin: 05/08/21 15:35 Dose: 40 mg Documented by: Metoprolol Tartrate (Metoprolol Tartrate 12.5 Mg Tab) 12.5 mg PO BID@ [facility] Last Admin: 05/08/21 08:13 Dose: 12.5 mg Documented by: Multivitamins/Minerals (Vit A,C & O-Qkrneh-Zomvburz 1 Each Tab) 1 each PO DAILY@0700 [facility] Last Admin: 05/08/21 08:13 Dose: 1 each Documented by: Naloxone HCl (Naloxone 0.4 Mg/Ml 1 Ml Vial) 0.2 mg IV Q2M PRN PRN Reason: Opioid Reversal Patient's Own ( Metformin Hcl Er 500 Mg Tab.Er.24h) 500 mg PO Q48H [facility] Last Admin: 05/07/21 20:51 Dose: Not Given Documented by: Oxybutynin Chloride (Oxybutynin Xl 5 Mg Tab.Er.24) 5 mg PO BID@0700,1999 [facility] Last Admin: 05/08/21 08:13 Dose: 5 mg Documented by: Prochlorperazine Maleate (Prochlorperazine 5 Mg Tab) 5 mg PO Q8HR PRN PRN Reason: Nausea And Vomiting Zinc Sulfate (Zinc Sulfate 220 Mg Cap) 220 mg PO DAILY@0700 [facility] Last Admin: 05/08/21 08:13 Dose: 220 mg Documented by: Past medical history to include: COVID-19 positive diagnosed on 04/03/2021. Persistent bronchial asthma, diabetes mellitus type 2, hypertension, hyperlipidemia, obesity, hiatal hernia, idiopathic peripheral neuropathy, GERD, schizoaffective disorder bipolar type, atrial fibrillation, macular degeneration, uterine cancer with hysterectomy, tardive dyskinesia, use a walker Social history: Lives at the [facility], does use a walker. Stopped drinking alcohol in 2006. Never smoked. Physical examination: VITAL SIGNS: 97.4, 96, 16, and is to 65, 97% on 2 L GENERAL: Laying in bed, awake, looking better EYES: Pupils equal. Conjunctiva normal. HEENT: External appearance of nose and ears normal, oral cavity grossly normal. Abrasion on the forehead NECK: JVD unable to assess; masses not palpable. HEART: First and second heart sounds are normal; no edema. LUNGS: Respiratory rate increased, moving breath sounds, decreased wheezing ABDOMEN: Soft, nontender, liver spleen not palpable, no masses palpable. PSYCH: Alert and oriented x3; mood and affect better INVESTIGATIONS, reviewed in the clinical context: White count 5.8 hemoglobin 13.8 platelets 252 potassium 3.7 BUN 14 creatinine 0.68 Coronavirus [PCR]: Not detected EKG tracing personally reviewed by me-normal sinus rhythm. Bilateral knees: osteoarthritis changes. No fracture Computed tomography scan brain spine without contrast: EGD changes. No acute changes. No fracture. Face CT: No fracture Assessment and plan: --Acute exacerbation of Moderate persistent asthma, IV Solu-Medrol 40 mg every 8.. DuoNeb 4 times a day. Pulmicort 10 long-acting beta agonist nebulizer -Acute medical debility due to asthma exacerbation Fall precautions -Diabetes mellitus type 2, on oral hypoglycemic. metformin . Follow Accu-Cheks -Essential Hypertension Lopressor 12.5 by mouth twice a day -Hyperlipidemia Lipitor 10 mg daily at bedtime -Diabetic peripheral neuropathy Neurontin 200 mg daily -GERD Tums when necessary -Paroxysmal atrial fibrillation currently sinus rhythm Lopressor 12.5 by mouth twice a day. Eliquis 5 mg twice a day -Schizoaffective disorder Clozaril 300 mg daily at bedtime Celexa 40 mg daily -Chronic urinary stress incontinence Ditropan XL 5 mg twice a day -Full code Continue current medications. Has a patient sit up in a chair. Appetite is improving. Hopefully discharge by tomorrow.
[2021-05-08 17:33] LABS: Glucose,Whole Blood 194 mg/dL (75-99)
[2021-05-08] MEDS: ACETAMINOPHEN TAB 325 MG TAB PO PRN (19:44)
[2021-05-08] MEDS: DIGOXIN 125 MCG TAB PO SCH (19:45)
[2021-05-08] MEDS: cloZAPine 100 MG TAB PO SCH (19:45)
[2021-05-08] MEDS: metFORMIN 500 MG TAB PO SCH (19:45)
[2021-05-08] MEDS: ATORVASTATIN 10 MG TAB PO SCH (19:46)
[2021-05-08 22:55] LABS: Glucose,Whole Blood 210 mg/dL (75-99)
[2021-05-09 07:34] LABS: Glucose,Whole Blood 146 mg/dL (75-99)
[2021-05-09] MEDS: GABAPENTIN 100 MG CAP PO SCH (07:40)
[2021-05-09] MEDS: predniSONE 20 MG TAB PO SCH (07:40)
[2021-05-09] MEDS: VIT A,C & E-LUTEIN-MINERALS 1 EACH TAB PO SCH (07:40)
[2021-05-09] MEDS: CYANOCOBALAMIN 500 MCG TAB PO SCH (07:40)
[2021-05-09] MEDS: METOPROLOL TARTRATE 12.5 MG TAB PO SCH ×2 (07:40→21:18)
[2021-05-09] MEDS: APIXABAN 5 MG TAB PO SCH ×2 (07:40→21:18)
[2021-05-09] MEDS: OXYBUTYNIN XL 5 MG TAB.ER.24 PO SCH ×2 (07:41→21:24)
[2021-05-09] MEDS: CITALOPRAM HYDROBROMIDE 20 MG TAB PO SCH (07:41)
[2021-05-09] MEDS: ZINC SULFATE 220 MG CAP PO SCH (07:41)
[2021-05-09] MEDS: ISOSORBIDE MONONITRATE ER 60 MG TAB.ER.24H PO SCH (07:41)
[2021-05-09] MEDS: ASCORBIC ACID 500 MG TAB PO SCH ×2 (07:41→21:18)
[2021-05-09] MEDS: BACITRACIN OINT 1 EACH PACKET TOPICAL SCH ×3 (07:42→21:19)
[2021-05-09] MEDS: metFORMIN 500 MG TAB PO SCH ×2 (07:42→18:11)
[2021-05-09] MEDS: IPRATROPIUM-ALBUTEROL 3 ML NEB INHALATION SCH ×4 (07:50→20:36)
[2021-05-09] MEDS: FORMOTEROL FUMARATE 20 MCG/2 ML NEBU INHALATION SCH ×2 (07:50→20:36)
[2021-05-09] MEDS: BUDESONIDE 1 MG/2 ML NEBU INHALATION SCH ×2 (07:50→20:35)
[2021-05-09 12:09] LABS: Glucose,Whole Blood 161 mg/dL (75-99)
--- NOTE | 2021-05-09 16:22 | P.PN ---
Progress Note - Text Progress Note Date: 05/09/21 Chief Complaint: Weaknesses falls History of presenting complaint: pleasant 65-year-old patient of visiting physician Dr. Gomes. Resident of [facility] . Does use a walker . Chronic stable medical conditions include asthma diabetes mellitus type 2, hypertension, hyperlipidemia, hiatal hernia, peripheral neuropathy, schizoaffective disorder, GERD. Patient admitted from April 05 through April 14 [2020]. with COVID 19 pneumonitis, acute hypoxic respiratory failure, acute asthma exacerbation. Patient now presents with feeling weak. The last 5 days she's been following about once a day. Appetite is slightly decreased. Feels dizzy. Has a congeste d cough. Bringing up little sputum. Denies any fever and chills. Does not pass out. She has a forehead abrasion secondary to fall. Legs feels weak. Admitted with acute asthma exacerbation and acute medical debility from the same. Started on IV fluids, steroids, bronchodilators. May 08: Feeling better. Improving this very symptoms. Had about 50% of breakfast/lunch. Have the patient sit up in a chair. May 09: Breathing better. Changed to by mouth steroids. Oral intake better. Patient requests to stay 1 more day doesn't feel ready to go home. Review of systems: Was done for constitutional, cardiovascular, GI, pulmonary. relevant finding as above Active Medications Acetaminophen (Acetaminophen Tab 325 Mg Tab) 650 mg PO Q6HR PRN PRN Reason: Fever and/ or Pain Last Admin: 05/08/21 19:44 Dose: 650 mg Documented by: Albuterol/Ipratropium (Ipratropium-Albuterol 3 Ml Neb) 3 ml INHALATION RT-QID [facility] Last Admin: 05/09/21 15:10 Dose: 3 ml Documented by: Apixaban (Apixaban 5 Mg Tab) 5 mg PO BID [facility]; Protocol Last Admin: 05/09/21 07:40 Dose: 5 mg Documented by: Ascorbic Acid (Ascorbic Acid 500 Mg Tab) 500 mg PO BID@699,1999 [facility] Last Admin: 05/09/21 07:41 Dose: 500 mg Documented by: Atorvastatin Calcium (Atorvastatin 10 Mg Tab) 10 mg PO HS@1999 [facility] Last Admin: 05/08/21 19:46 Dose: 10 mg Documented by: Bacitracin (Bacitracin Oint 1 Each Packet) 1 each TOPICAL TID [facility]; Protocol Last Admin: 05/09/21 15:19 Dose: 1 each Documented by: Budesonide (Budesonide 1 Mg/2 Ml Nebu) 1 mg INHALATION RT-BID [facility] Last Admin: 05/09/21 07:50 Dose: 1 mg Documented by: Citalopram Hydrobromide (Citalopram Hydrobromide 20 Mg Tab) 40 mg PO DAILY@07 [facility] Last Admin: 05/09/21 07:41 Dose: 40 mg Documented by: Clozapine (Clozapine 100 Mg Tab) 300 mg PO HS@1999 [facility] Stop: 05/14/21 23:00 Last Admin: 05/08/21 19:45 Dose: 300 mg Documented by: Cyanocobalamin (Cyanocobalamin 500 Mcg Tab) 1,000 mcg PO DAILY@699 [facility] Last Admin: 05/09/21 07:40 Dose: 1,000 mcg Documented by: Digoxin (Digoxin 125 Mcg Tab) 125 mcg PO HS@1999 [facility] Last Admin: 05/08/21 19:45 Dose: 125 mcg Documented by: Formoterol Fumarate (Formoterol Fumarate 20 Mcg/2 Ml Nebu) 20 mcg INHALATION RT-BID [facility] Last Admin: 05/09/21 07:50 Dose: 20 mcg Documented by: Gabapentin (Gabapentin 100 Mg Cap) 200 mg PO DAILY@699 [facility] Last Admin: 05/09/21 07:40 Dose: 200 mg Documented by: Guaifenesin (Guaifenesin Syrup 100mg/5ml 200 Mg/10 Ml Cup) 200 mg PO QID PRN PRN Reason: Cough Hyoscyamine (Hyoscyamine Sulfate 0.125 Mg Tab) 0.125 mg PO Q8H PRN PRN Reason: DROOLING Isosorbide Mononitrate (Isosorbide Mononitrate Er 60 Mg Tab.Er.24h) 60 mg PO DAILY@699 [facility] Last Admin: 05/09/21 07:41 Dose: 60 mg Documented by: Lorazepam (Lorazepam 1 Mg Tab) 1 mg PO DAILY PRN PRN Reason: Anxiety Melatonin (Melatonin 3 Mg Tablet) 3 mg PO HS PRN PRN Reason: Insomnia Metformin HCl (Metformin 500 Mg Tab) 500 mg PO BID-W/MEALS [facility] Last Admin: 05/09/21 07:42 Dose: 500 mg Documented by: Metoprolol Tartrate (Metoprolol Tartrate 12.5 Mg Tab) 12.5 mg PO BID@ [facility] Last Admin: 05/09/21 07:40 Dose: 12.5 mg Documented by: Multivitamins/Minerals (Vit A,C & O-Oljpfz-Zzjnucoi 1 Each Tab) 1 each PO DAILY@0700 [facility] Last Admin: 05/09/21 07:40 Dose: 1 each Documented by: Naloxone HCl (Naloxone 0.4 Mg/Ml 1 Ml Vial) 0.2 mg IV Q2M PRN PRN Reason: Opioid Reversal Patient's Own ( Metformin Hcl Er 500 Mg Tab.Er.24h) 500 mg PO Q48H [facility] Last Admin: 05/07/21 20:51 Dose: Not Given Documented by: Oxybutynin Chloride (Oxybutynin Xl 5 Mg Tab.Er.24) 5 mg PO BID@ [facility] Last Admin: 05/09/21 07:41 Dose: 5 mg Documented by: Prednisone (Prednisone 20 Mg Tab) 40 mg PO DAILY [facility] Last Admin: 05/09/21 07:40 Dose: 40 mg Documented by: Prochlorperazine Maleate (Prochlorperazine 5 Mg Tab) 5 mg PO Q8HR PRN PRN Reason: Nausea And Vomiting Zinc Sulfate (Zinc Sulfate 220 Mg Cap) 220 mg PO DAILY@07 [facility] Last Admin: 05/09/21 07:41 Dose: 220 mg Documented by: Past medical history to include: COVID-19 positive diagnosed on 04/03/2021. Persistent bronchial asthma, diabetes mellitus type 2, hypertension, hyperlipidemia, obesity, hiatal hernia, idiopathic peripheral neuropathy, GERD, schizoaffective disorder bipolar type, atrial fibrillation, macular degeneration, uterine cancer with hysterectomy, tardive dyskinesia, use a walker Social history: Lives at the [facility], does use a walker. Stopped drinking alcohol in 2006. Never smoked. Physical examination: VITAL SIGNS: 97.9, 91, 18, 1 29 x 6 9, 96% on 2 L GENERAL: Sitting up in a recliner. Awake. EYES: Pupils equal. Conjunctiva normal. HEENT: External appearance of nose and ears normal, oral cavity grossly normal. Abrasion on the forehead NECK: JVD unable to assess; masses not palpable. HEART: First and second heart sounds are normal; no edema. LUNGS: Respiratory rate increased, improving air entry ABDOMEN: Soft, nontender, liver spleen not palpable, no masses palpable. PSYCH: Alert and oriented x3; mood and affect better INVESTIGATIONS, reviewed in the clinical context: White count 5.8 hemoglobin 13.8 platelets 252 potassium 3.7 BUN 14 creatinine 0.68 Coronavirus [PCR]: Not detected EKG tracing personally reviewed by me-normal sinus rhythm. Bilateral knees: osteoarthritis changes. No fracture Computed tomography scan brain spine without contrast: EGD changes. No acute changes. No fracture. Face CT: No fracture Assessment and plan: --Acute exacerbation of Moderate persistent asthma,: Improving IV Solu-Medrol 40 mg every 8-changed to by mouth prednisone.. DuoNeb 4 times a day. Pulmicort 10 long-acting beta agonist nebulizer -Acute medical debility due to asthma exacerbation Fall precautions -Diabetes mellitus type 2, on oral hypoglycemic. metformin . Follow Accu-Cheks -Essential Hypertension Lopressor 12.5 by mouth twice a day -Hyperlipidemia Lipitor 10 mg daily at bedtime -Diabetic peripheral neuropathy Neurontin 200 mg daily -GERD Tums when necessary -Paroxysmal atrial fibrillation currently sinus rhythm Lopressor 12.5 by mouth twice a day. Eliquis 5 mg twice a day -Schizoaffective disorder Clozaril 300 mg daily at bedtime Celexa 40 mg daily -Chronic urinary stress incontinence Ditropan XL 5 mg twice a day -Full code Doing better. Continue current medications. Changed to by mouth prednisone. Patient requested to stay 1 more day. For discharge tomorrow.
[2021-05-09 17:29] LABS: Glucose,Whole Blood 170 mg/dL (75-99)
[2021-05-09] MEDS: METFORMIN HCL 500 MG PO SCH (18:04)
[2021-05-09 20:15] LABS: Glucose,Whole Blood 183 mg/dL (75-99)
[2021-05-09] MEDS: cloZAPine 100 MG TAB PO SCH (21:18)
[2021-05-09] MEDS: ATORVASTATIN 10 MG TAB PO SCH (21:18)
[2021-05-09] MEDS: DIGOXIN 125 MCG TAB PO SCH (21:19)
[2021-05-10] MEDS: IPRATROPIUM-ALBUTEROL 3 ML NEB INHALATION SCH ×2 (07:47→11:50)
[2021-05-10] MEDS: BUDESONIDE 1 MG/2 ML NEBU INHALATION SCH (07:47)
[2021-05-10] MEDS: FORMOTEROL FUMARATE 20 MCG/2 ML NEBU INHALATION SCH (07:47)
[2021-05-10 07:54] LABS: Glucose,Whole Blood 119 mg/dL (75-99)
[2021-05-10 08:02] VITALS: BP 111/72; RESP 16; TEMP 98.3
[2021-05-10] MEDS: BACITRACIN OINT 1 EACH PACKET TOPICAL SCH (08:46)
[2021-05-10] MEDS: ZINC SULFATE 220 MG CAP PO SCH (08:47)
[2021-05-10] MEDS: CYANOCOBALAMIN 500 MCG TAB PO SCH (08:47)
[2021-05-10] MEDS: VIT A,C & E-LUTEIN-MINERALS 1 EACH TAB PO SCH (08:47)
[2021-05-10] MEDS: METOPROLOL TARTRATE 12.5 MG TAB PO SCH (08:47)
[2021-05-10] MEDS: GABAPENTIN 100 MG CAP PO SCH (08:47)
[2021-05-10] MEDS: APIXABAN 5 MG TAB PO SCH (08:47)
[2021-05-10] MEDS: metFORMIN 500 MG TAB PO SCH (08:47)
[2021-05-10] MEDS: ISOSORBIDE MONONITRATE ER 60 MG TAB.ER.24H PO SCH (08:47)
[2021-05-10] MEDS: ASCORBIC ACID 500 MG TAB PO SCH (08:48)
[2021-05-10] MEDS: CITALOPRAM HYDROBROMIDE 20 MG TAB PO SCH (08:48)
[2021-05-10] MEDS: OXYBUTYNIN XL 5 MG TAB.ER.24 PO SCH (08:48)
[2021-05-10] MEDS: predniSONE 20 MG TAB PO SCH (08:49)
[2021-05-10 11:59] VITALS: PULSE 96
[2021-05-10 13:10] LABS: Glucose,Whole Blood 168 mg/dL (75-99)
--- NOTE | 2021-05-10 17:18 | P.DS ---
Providers Date of admission: 05/09/21 10:14 Expected date of discharge: 05/10/21 Attending physician: Marvin Elizabeth Primary care physician: Loki Gomes [facility] Course: Chief Complaint: Weaknesses falls History of presenting complaint: pleasant 65-year-old patient of visiting physician Dr. Gomes. Resident of [facility] . Does use a walker . Chronic stable medical conditions include asthma diabetes mellitus type 2, hypertension, hyperlipidemia, hiatal hernia, peripheral neuropathy, schizoaffective disorder, GERD. Patient admitted from April 05 through April 14 [2020]. with COVID 19 pneumonitis, acute hypoxic respiratory failure, acute asthma exacerbation. Patient now presents with feeling weak. The last 5 days she's been following about once a day. Appetite is slightly decreased. Feels dizzy. Has a congested cough. Bringing up little sputum. Denies any fever and chills. Does not pass out. She has a forehead abrasion secondary to fall. Legs feels weak. Admitted with acute asthma exacerbation and acute medical debility from the same. Started on IV fluids, steroids, bronchodilators. Patient responded well. Oral intake improved. Respiratory symptoms improved.. Past medical history to include: COVID-19 positive diagnosed on 04/03/2021. Persistent bronchial asthma, diabetes mellitus type 2, hypertension, hyperlipidemia, obesity, hiatal hernia, idiopathic peripheral neuropathy, GERD, schizoaffective disorder bipolar type, atrial fibrillation, macular degeneration, uterine cancer with hysterectomy, tardive dyskinesia, use a walker Social history: Lives at the [facility], does use a walker. Stopped drinking alcohol in 2006. Never smoked. Physical examination: VITAL SIGNS: 98.3, 84, 16, 111/72, 95% room air GENERAL: Sitting up in a recliner. Awake. EYES: Pupils equal. Conjunctiva normal. HEENT: External appearance of nose and ears normal, oral cavity grossly normal. Abrasion on the forehead NECK: JVD unable to assess; masses not palpable. HEART: First and second heart sounds are normal; no edema. LUNGS: Respiratory rate normal, better air entry ABDOMEN: Soft, nontender, liver spleen not palpable, no masses palpable. PSYCH: Alert and oriented x3; mood and affect better INVESTIGATIONS, reviewed in the clinical context: White count 5.8 hemoglobin 13.8 platelets 252 potassium 3.7 BUN 14 creatinine 0.68 Coronavirus [PCR]: Not detected EKG tracing personally reviewed by me-normal sinus rhythm. Bilateral knees: osteoarthritis changes. No fracture Computed tomography scan brain spine without contrast: EGD changes. No acute ch anges. No fracture. Face CT: No fracture Assessment and plan: --Acute exacerbation of Moderate persistent asthma,: Better Prednisone taper.. Combivent 2 puffs P 80 -Acute medical debility due to asthma exacerbation Fall precautions -Diabetes mellitus type 2, on oral hypoglycemic. metformin . Follow Accu-Cheks -Essential Hypertension Lopressor 12.5 by mouth twice a day -Hyperlipidemia Lipitor 10 mg daily at bedtime -Diabetic peripheral neuropathy Neurontin 200 mg daily -GERD Tums when necessary -Paroxysmal atrial fibrillation currently sinus rhythm Lopressor 12.5 by mouth twice a day. Eliquis 5 mg twice a day -Schizoaffective disorder Clozaril 300 mg daily at bedtime Celexa 40 mg daily -Chronic urinary stress incontinence Ditropan XL 5 mg twice a day -Full code Disposition: Assisted-living Patient Condition at Discharge: Stable Plan - Discharge Summary Discharge Rx Participant: No New Discharge Prescriptions: New Ipratropium/Albuterol Sulfate [Combivent Respimat Inhaler] 1 puff INHALATION TID #1 each predniSONE 0 mg PO DIRECTED #10 tab Continue Atorvastatin [Lipitor] 10 mg PO HS@1999 Metoprolol Tartrate [Lopressor] 12.5 mg PO BID@0700,1999 Oxybutynin Xl [Ditropan XL] 5 mg PO BID@0700,2000 Citalopram Hydrobromide [CeleXA] 40 mg PO DAILY@0700 Gabapentin [Neurontin] 200 mg PO DAILY@0700 metFORMIN HCL ER [Glucophage XR] 500 mg PO Q48H Vit C/E/Zn/Coppr/Lutein/Zeaxan [Preservision Areds 2 Softgel] 1 cap PO DAILY@0700 cloZAPine [Clozaril] 300 mg PO HS@2000 LORazepam [Ativan] 1 mg PO DAILY PRN PRN Reason: Anxiety Cyanocobalamin (Vitamin B-12) [Vitamin B-12] 1,000 mcg PO DAILY@0700 Hyoscyamine Sulfate [Hyoscyamine Sulfate SL] 0.125 mg SL Q8H PRN PRN Reason: DROOLING guaiFENesin [guaiFENesin Oral Solution] 200 mg PO QID PRN PRN Reason: Cough Apixaban [Eliquis] 5 mg PO BID@699,1999 Benadryl [place] 2-0.1% 1 applic TOPICAL QID PRN PRN Reason: Skin Irritation Isosorbide Mononitrate ER [Imdur] 60 mg PO DAILY@0700 Digoxin [Lanoxin] 125 mcg PO HS@1999 Discontinued Furosemide [Lasix] 20 mg PO DAILY@07 Zinc Sulfate [Orazinc] 220 mg PO DAILY@07 Ascorbic Acid [Vitamin C] 500 mg PO BID@699,1999 Discharge Medication List Atorvastatin [Lipitor] 10 mg PO HS@199912/30/16 [History] Metoprolol Tartrate [Lopressor] 12.5 mg PO BID@699,199902/25/17 [History] Oxybutynin Xl [Ditropan XL] 5 mg PO BID@699,199902/25/17 [History] Citalopram Hydrobromide [CeleXA] 40 mg PO DAILY@0711/05/18 [History] Gabapentin [Neurontin] 200 mg PO DAILY@0705/19/19 [History] metFORMIN HCL ER [Glucophage XR] 500 mg PO Q48H 05/19/19 [History] Cyanocobalamin (Vitamin B-12) [Vitamin B-12] 1,000 mcg PO DAILY@0704/24/20 [History] LORazepam [Ativan] 1 mg PO DAILY PRN 04/24/20 [History] Vit C/E/Zn/Coppr/Lutein/Zeaxan [Preservision Areds 2 Softgel] 1 cap PO DAILY@69904/24/20 [History] cloZAPine [Clozaril] 300 mg PO HS@199904/24/20 [History] Benadryl [place] 2-0.1% 1 applic TOPICAL QID PRN 04/03/21 [History] Hyoscyamine Sulfate [Hyoscyamine Sulfate SL] 0.125 mg SL Q8H PRN 04/05/21 [History] Apixaban [Eliquis] 5 mg PO BID@0700,199905/07/21 [History] Digoxin [Lanoxin] 125 mcg PO HS@199905/07/21 [History] Isosorbide Mononitrate ER [Imdur] 60 mg PO DAILY@0700 05/07/21 [History] guaiFENesin [guaiFENesin Oral Solution] 200 mg PO QID PRN 05/07/21 [History] Ipratropium/Albuterol Sulfate [Combivent Respimat Inhaler] 1 puff INHALATION TID #1 each 05/10/21 [Rx] predniSONE 0 mg PO DIRECTED #10 tab 05/10/21 [Rx] Follow up Appointment(s)/Referral(s): Loki Gomes MD [Primary Care Provider] - 1-2 days Activity/Diet/Wound Care/Special Instructions: activity as tolerated regular diet Discharge Disposition: HOME SELF-CARE
== END 2021-05-10 14:05 | disposition home or self-care (01) | DRG 203 ==
LOC: EC 13:09 → EEVIPCON 16:53 → 6NMEDSUR 16:53 → OBSVTOIN 05-09 10:14
PROVIDERS: ADMIT Hospitalist; ATTEND Hospitalist
DX: J45.41 Moderate persistent asthma with (acute) exacerbation (principal); F25.0 Schizoaffective disorder, bipolar type; E11.42 Type 2 diabetes mellitus with diabetic polyneuropathy; I11.0 Hypertensive heart disease with heart failure; I50.9 Heart failure, unspecified; I48.0 Paroxysmal atrial fibrillation; G24.01 Drug induced subacute dyskinesia; E66.9 Obesity, unspecified; J44.9 Chronic obstructive pulmonary disease, unspecified; Z20.822 Contact with and (suspected) exposure to COVID-19; I25.10 Atherosclerotic heart disease of native coronary artery without angina pectoris; G60.9 Hereditary and idiopathic neuropathy, unspecified; S00.81XA Abrasion of other part of head, initial encounter; S80.212A Abrasion, left knee, initial encounter; S80.211A Abrasion, right knee, initial encounter; E78.5 Hyperlipidemia, unspecified; H35.30 Unspecified macular degeneration; K21.9 Gastro-esophageal reflux disease without esophagitis; K44.9 Diaphragmatic hernia without obstruction or gangrene; N39.3 Stress incontinence (female) (male); H35.3210 Exudative age-related macular degeneration, right eye, stage unspecified; H35.3120 Nonexudative age-related macular degeneration, left eye, stage unspecified; F41.9 Anxiety disorder, unspecified; M19.90 Unspecified osteoarthritis, unspecified site; Z68.28 Body mass index [BMI] 28.0-28.9, adult; Z79.01 Long term (current) use of anticoagulants; Z79.84 Long term (current) use of oral hypoglycemic drugs; Z79.899 Other long term (current) drug therapy; Z86.16 Personal history of COVID-19; Z86.73 Personal history of transient ischemic attack (TIA), and cerebral infarction without residual deficits; Z90.710 Acquired absence of both cervix and uterus; Z85.42 Personal history of malignant neoplasm of other parts of uterus; Z86.19 Personal history of other infectious and parasitic diseases; Z87.440 Personal history of urinary (tract) infections; Z90.89 Acquired absence of other organs; Z90.49 Acquired absence of other specified parts of digestive tract; Z98.42 Cataract extraction status, left eye; Z98.41 Cataract extraction status, right eye; Z86.69 Personal history of other diseases of the nervous system and sense organs; Z98.890 Other specified postprocedural states; W19.XXXA Unspecified fall, initial encounter; Z88.5 Allergy status to narcotic agent; Z88.8 Allergy status to other drugs, medicaments and biological substances; Z88.6 Allergy status to analgesic agent; Z91.030 Bee allergy status; Z82.49 Family history of ischemic heart disease and other diseases of the circulatory system; Z80.8 Family history of malignant neoplasm of other organs or systems; Z80.0 Family history of malignant neoplasm of digestive organs
CPT/HCPCS: 36415; 70450; 70486; 71046; 72125; 80053; 81001; 82550; 82553; 85025; 85610; 85730; 87635; 93005; 94640; 94760; 96374; 99285

== ENCOUNTER 2021-08-18 21:28 | Observation (INO) | payer MEDICARE, OTHER ==
[2021-08-18] MEDS ORDERED: IPRATROPIUM-ALBUTEROL 3 ML NEB INHALATION STA (21:35)
--- NOTE | 2021-08-18 21:38 | ED ---
General Adult HPI - General Stated complaint: LALO Time Seen by Provider: 08/18/21 21:31 Source: patient, EMS, RN notes reviewed Mode of arrival: EMS Limitations: no limitations - History of Present Illness Initial comments: Patient is a pleasant 66-year-old female presenting to the emergency department with hemoptysis. Patient has had cough for the past several days. Patient does have history of COPD, bronchitis, and CHF. Patient is on L Cand[place] with history of atrial fibrillation. Patient does have occasional green or yellow sputum. Patient has had some blood-tinged sputum recently. Patient has been feeling somewhat short of breath. No leg pain or leg swelling. No fevers. - Related Data Home Medications Medication Instructions Recorded Confirmed Atorvastatin [Lipitor] 10 mg PO HS@199912/30/16 05/07/21 Metoprolol Tartrate [Lopressor] 12.5 mg PO BID@07,199902/25/17 05/07/21 Oxybutynin Xl [Ditropan XL] 5 mg PO BID@07,199902/25/17 05/07/21 Citalopram Hydrobromide [CeleXA] 40 mg PO DAILY@0700 11/05/18 05/07/21 Gabapentin [Neurontin] 200 mg PO DAILY@0700 05/19/19 05/07/21 metFORMIN HCL ER [Glucophage XR] 500 mg PO Q48H 05/19/19 05/07/21 Cyanocobalamin (Vitamin B-12) 1,000 mcg PO DAILY@0700 04/24/20 05/07/21 [Vitamin B-12] LORazepam [Ativan] 1 mg PO DAILY PRN 04/24/20 05/07/21 Vit C/E/Zn/Coppr/Lutein/Zeaxan 1 cap PO DAILY@0700 04/24/20 05/07/21 [Preservision Areds 2 Softgel] cloZAPine [Clozaril] 300 mg PO HS@199904/24/20 05/07/21 Benadryl [place] 2-0.1% 1 applic TOPICAL QID PRN 04/03/21 05/07/21 Hyoscyamine Sulfate [Hyoscyamine 0.125 mg SL Q8H PRN 04/05/21 05/07/21 Sulfate SL] Apixaban [Eliquis] 5 mg PO BID@0700,199905/07/21 05/07/21 Digoxin [Lanoxin] 125 mcg PO HS@199905/07/21 05/07/21 Isosorbide Mononitrate ER [Imdur] 60 mg PO DAILY@0700 05/07/21 05/07/21 guaiFENesin [guaiFENesin Oral 200 mg PO QID PRN 05/07/21 05/07/21 Solution] Previous Rx's Medication Instructions Recorded Ipratropium/Albuterol Sulfate 1 puff INHALATION TID #1 each 05/10/21 [Combivent Respimat Inhaler] predniSONE 0 mg PO DIRECTED #10 tab 05/10/21 Allergies Allergy/AdvReac Type Severity Reaction Status Date / Time lorazepam [From Ativan] Allergy Unknown Unknown Verified 08/18/21 21:41 bee venom protein (honey bee) Allergy Anaphylaxis Verified 08/18/21 21:41 acetaminophen [From [place]] AdvReac Confusion Verified 08/18/21 21:41 hydrocodone [From [place]] AdvReac Confusion Verified 08/18/21 21:41 Review of Systems ROS Statement: Those systems with pertinent positive or pertinent negative responses have been documented in the HPI. ROS Other: All systems not noted in ROS Statement are negative. Constitutional: Denies: fever Eyes: Denies: eye pain ENT: Denies: ear pain Respiratory: Reports: as per HPI, cough, dyspnea, hemoptysis Cardiovascular: Denies: chest pain Endocrine: Denies: fatigue Gastrointestinal: Denies: abdominal pain Genitourinary: Denies: dysuria Musculoskeletal: Denies: back pain Skin: Denies: rash Neurological: Denies: weakness Past Medical History Past Medical History: Atrial Fibrillation, Coronary Artery Disease (CAD), Cancer, Heart Failure, COPD, CVA/TIA, Diabetes Mellitus, Eye Disorder, GERD/Reflux, Hyperlipidemia, Hypertension Additional Past Medical History / Comment(s): NIDDM type II, neuropathy bilateral feet, bronchial asthma, home oxygen prn, obesity, occasional lower extremity edema, past L axillae cellulitis/abscess-lengthy heal, shingles/staph, R eye wet macular degeneration/ L eye dry macular degeneration, uterine cancer with hysterectomy, TIA, hiatal hernia, uterine cancer with hysterectomy, tardive dyskinesia r/t psych medication, migraines, sinus problems, paroxysmal atrial fibrillation, past urinary retention w/ past chronic mackenzie, UTIs. History of Any Multi-Drug Resistant Organisms: None Reported Past Surgical History: Adenoidectomy, Cholecystectomy, Ear Surgery, Heart Cathet erization, Hysterectomy, Tonsillectomy Additional Past Surgical History / Comment(s): I & D L axillae, L eye surgery for lazy eye, bilateral cataract removal, bilateral myringotomy/tubes, colonoscopy, bronchoscopy, cervical surgery Past Anesthesia/Blood Transfusion Reactions: No Reported Reaction Past Psychological History: Anxiety, Depression, Schizoaffective Disorder Additional Psychological History / Comment(s): Pt resides at [facility]. She uses a walker to ambulate. [place]. She has a glucometer. She has oxygen which she wears prn. Smoking Status: Never smoker Past Alcohol Use History: None Reported Additional Past Alcohol Use History / Comment(s): Pt quit drinking in 2006. Past Drug Use History: None Reported - Past Family History Mother Family Medical History: Myocardial Infarction ([place]) Additional Family Medical History / Comment(s): Mother at 72 yrs. Father Family Medical History: Cancer Additional Family Medical History / Comment(s): Throat cancer; father at 72 yrs. Brother(s) Family Medical History: Cancer Additional Family Medical History / Comment(s): Liver cancer General Exam Limitations: no limitations General appearance: alert, in no apparent distress Head exam: Present: normocephalic Eye exam: Present: normal appearance Neck exam: Present: normal inspection Respiratory exam: Present: wheezes, rhonchi Cardiovascular Exam: Present: regular rate, normal rhythm GI/Abdominal exam: Present: soft. Absent: tenderness Extremities exam: Present: normal inspection Neurological exam: Present: alert Psychiatric exam: Present: normal affect, normal mood Skin exam: Present: normal color Course Vital Signs 08/18/21 08/18/21 08/18/21 21:37 21:53 22:05 Temperature 98.8 F Pulse Rate 80 78 85 Respiratory 22 Rate Blood Pressure 105/71 O2 Sat by Pulse 97 Oximetry EKG Findings - EKG Comments: EKG Findings:: Sinus rhythm at 79. OR 140. QRS 74. QT 356. QTc 390. Normal axis. Normal QRS. No acute ST change. Medical Decision Making - Medical Decision Making Patient reevaluated and resting comfortably in bed. Patient has continued wheezing. Pulse ox 92% on room air. History of discharge states patient is observation criteria. Case discussed with Dr. jesus, who will cover for observation call. - Lab Data Result diagrams: 08/18/21 21:53 08/18/21 21:53 Lab Results 08/18/21 08/18/21 08/18/21 Range/Units 21:53 21:53 21:53 WBC 14.0 H (3.8-10.6) k/uL RBC 4.50 (3.80-5.40) m/uL Hgb 13.5 (11.4-16.0) gm/dL Hct 43.0 (34.0-46.0) % MCV 95.4 (80.0-100.0) fL MCH 30.0 (25.0-35.0) pg MCHC 31.4 (31.0-37.0) g/dL RDW 12.3 (11.5-15.5) % Plt Count 270 (150-450) k/uL MPV 7.5 Neutrophils % 74 % Lymphocytes % 19 % Monocytes % 4 % Eosinophils % 2 % Basophils % 0 % Neutrophils # 10.4 H (1.3-7.7) k/uL Lymphocytes # 2.7 (1.0-4.8) k/uL Monocytes # 0.5 (0-1.0) k/uL Eosinophils # 0.3 (0-0.7) k/uL Basophils # 0.1 (0-0.2) k/uL PT 9.9 (9.0-12.0) sec INR 0.9 (<1.2) APTT 23.1 (22.0-30.0) sec D-Dimer <0.17 (<0.60) mg/L FEU Sodium 137 (137-145) mmol/L Potassium 3.7 (3.5-5.1) mmol/L Chloride 99 (98-107) mmol/L Carbon Dioxide 29 (22-30) mmol/L Anion Gap 9 mmol/L BUN 17 (7-17) mg/dL Creatinine 0.87 (0.52-1.04) mg/dL Est GFR (CKD-EPI)AfAm 81 (>60 ml/min/1.73 sqM) Est GFR (CKD-EPI)NonAf 70 (>60 ml/min/1.73 sqM) Glucose 81 (74-99) mg/dL Plasma Lactic Acid Britton (0.7-2.0) mmol/L Calcium 8.9 (8.4-10.2) mg/dL Total Bilirubin 0.5 (0.2-1.3) mg/dL AST 23 (14-36) U/L ALT 25 (4-34) U/L Alkaline Phosphatase 110 (38-126) U/L NT-Pro-B Natriuret Pep pg/mL Total Protein 6.6 (6.3-8.2) g/dL Albumin 3.9 (3.5-5.0) g/dL Digoxin 0.9 ng/mL 08/18/21 08/18/21 Range/Units 21:53 21:53 WBC (3.8-10.6) k/uL RBC (3.80-5.40) m/uL Hgb (11.4-16.0) gm/dL Hct (34.0-46.0) % MCV (80.0-100.0) fL MCH (25.0-35.0) pg MCHC (31.0-37.0) g/dL RDW (11.5-15.5) % Plt Count (150-450) k/uL MPV Neutrophils % % Lymphocytes % % Monocytes % % Eosinophils % % Basophils % % Neutrophils # (1.3-7.7) k/uL Lymphocytes # (1.0-4.8) k/uL Monocytes # (0-1.0) k/uL Eosinophils # (0-0.7) k/uL Basophils # (0-0.2) k/uL PT (9.0-12.0) sec INR (<1.2) APTT (22.0-30.0) sec D-Dimer (<0.60) mg/L FEU Sodium (137-145) mmol/L Potassium (3.5-5.1) mmol/L Chloride (98-107) mmol/L Carbon Dioxide (22-30) mmol/L Anion Gap mmol/L BUN (7-17) mg/dL Creatinine (0.52-1.04) mg/dL Est GFR (CKD-EPI)AfAm (>60 ml/min/1.73 sqM) Est GFR (CKD-EPI)NonAf (>60 ml/min/1.73 sqM) Glucose (74-99) mg/dL Plasma Lactic Acid Britton 1.1 (0.7-2.0) mmol/L Calcium (8.4-10.2) mg/dL Total Bilirubin (0.2-1.3) mg/dL AST (14-36) U/L ALT (4-34) U/L Alkaline Phosphatase (38-126) U/L NT-Pro-B Natriuret Pep 93 pg/mL Total Protein (6.3-8.2) g/dL Albumin (3.5-5.0) g/dL Digoxin ng/mL - Radiology Data Radiology results: image reviewed (Chest x-ray shows fibrosis) Disposition Clinical Impression: COPD with acute exacerbation Disposition: ADMITTED IP TO THIS HOSP Is patient prescribed a controlled substance at d/c from ED?: No Referrals: Loki Gomes MD [Primary Care Provider] - 1-2 days Decision Time: 22:44
[2021-08-18 22:07] LABS: Basophils # (A) 0.1 k/uL (0-0.2); Basophils % (A) 0 %; Eosinophils # (A) 0.3 k/uL (0-0.7); Eosinophils % (A) 2 %; HGB 13.5 gm/dL (11.4-16.0); Lymphocytes # (A) 2.7 k/uL (1.0-4.8); Lymphocytes % (A) 19 %; MCHC 31.4 g/dL (31.0-37.0); MCV 95.4 fL (80.0-100.0); Mean Platelet Volume 7.5; Monocytes # (A) 0.5 k/uL (0-1.0); Monocytes % (A) 4 %; Neutrophils # (A) 10.4 k/uL (1.3-7.7); Neutrophils % (A) 74 %; Platelet Count 270 k/uL (150-450); RDW 12.3 % (11.5-15.5)
[2021-08-18 22:18] LABS: Albumin 3.9 g/dL (3.5-5.0); Calcium 8.9 mg/dL (8.4-10.2); Digoxin 0.9 ng/mL; Potassium 3.7 mmol/L (3.5-5.1); Total Bilirubin 0.5 mg/dL (0.2-1.3); Total Protein 6.6 g/dL (6.3-8.2)
[2021-08-18 22:20] LABS: INR 0.9 (<1.2)
[2021-08-18 22:21] LABS: Partial Thromboplastin Time 23.1 sec (22.0-30.0); Prothrombin Time 9.9 sec (9.0-12.0)
--- NOTE | 2021-08-18 22:35 | XR ---
EXAMINATION TYPE: XR chest 2V DATE OF EXAM: 08/18/2021 COMPARISON: 05/08/2021 HISTORY: Difficulty breathing TECHNIQUE: 2 views FINDINGS: There is coarsening of interstitial markings. Heart size is normal. There no hilar masses. There are chest leads. Costophrenic angles are clear. There is cervical spine fusion surgery. IMPRESSION: Coarse interstitial density consistent with some mild fibrosis. No change compared to old exam. No pleural fluid seen to suggest heart failure.
[2021-08-18] MEDS ORDERED: IPRATROPIUM-ALBUTEROL 3 ML NEB INHALATION PRN (22:44)
[2021-08-18] MEDS ORDERED: methylPREDNISolone SOD SUCCI 125 MG/2 ML VIAL IV STA (22:44)
[2021-08-19] MEDS: methylPREDNISolone SOD SUCCI 125 MG/2 ML VIAL IV SCH ×4 (01:31→18:15)
--- NOTE | 2021-08-19 02:56 | P.HPIM ---
History of Present Illness H&P Date: 08/19/21 Patient is a 66-year-old female with a PMH of COPD, chronic hypoxic respiratory failure on 2 L nasal cannula oxygen continuously, type II DM, hypertension, hyperlipidemia, A. fib on Eliquis presents to the emergency room with complaints of shortness of breath and cough. She reports gradually worsening shortness of breath over the past few days along with cough productive of white and yellow phlegm. She also reports an episode of small amount of hemoptysis, a teaspoonful. She denied experiencing chest discomfort, lower extremity pain, fever, chills. Denied abdominal pain, nausea, vomiting, diarrhea. Chest x-ray in the emergency room revealed findings consistent with fibrosis with EKG oliver wing sinus rhythm at 79 bpm. Laboratory evaluation was remarkable for WBC count of 14.0. Review of systems: Pertinent positives and negatives as discussed in HPI, a complete review of systems was performed and all other systems are negative. Physical examination: General: non toxic, no distress, appears older than stated age, overweight Derm: no unusual rashes/lesions no unusual ecchymoses, warm, dry Head: atraumatic, normocephalic, symmetric Eyes: EOMI, no lid lag, anicteric sclera, pupils equal round reactive to light ENT: Nose and ears atraumatic, no thrush, no pharyngeal erythema Neck: No thyromegaly, no cervical lymphadenopathy, trachea midline, supple Mouth: no lip lesion, mucus membranes moist Cardiovascular: S1S2 reg, no murmur, positive posterior tibial pulse bilateral, no edema, capillary refill less than 2 seconds Lungs: Diffuse coarse breath sounds with expiratory wheezing, no rales, no accessory muscle use Abdominal: soft, nontender to palpation, no guarding, no appreciable organomegaly, normal bowel sounds Ext: no gross muscle atrophy, muscle strength 5 out of 5 in all 4 extremities grossly, no contractures, Neuro: CN II-XI grossly intact, light touch intact all 4 extremities, finger to nose within normal limits, Psych: Alert, oriented, appropriate affect Assessment/plan Acute COPD exacerbation with acute on chronic hypoxic respiratory failure -Continue with Solu-Medrol and DuoNeb's -Supplemental oxygen Hemoptysis -Likely secondary to excessive coughing Leukocytosis -Obtain pro-calcitonin levels -Hold off on antibiotics at this time Chronic conditions: Type II DM, hypertension, hyperlipidemia, A. fib -Insulin sliding scale and blood glucose monitoring -Continue with remaining home medications DVT prophylaxis -Eliquis The patient is admitted with an anticipated less than 2 midnight stay for evaluation of COPD exacerbation CODE STATUS: Full Code Discussed with: Patient Anticipated discharge date: in am Anticipated discharge place: Home Past Medical History Past Medical History: Atrial Fibrillation, Coronary Artery Disease (CAD), Cancer, Heart Failure, COPD, CVA/TIA, Diabetes Mellitus, Eye Disorder, GERD/Reflux, Hyperlipidemia, Hypertension Additional Past Medical History / Comment(s): NIDDM type II, neuropathy bilateral feet, bronchial asthma, home oxygen prn, obesity, occasional lower extremity edema, past L axillae cellulitis/abscess-lengthy heal, shingles/staph, R eye wet macular degeneration/ L eye dry macular degeneration, uterine cancer with hysterectomy, TIA, hiatal hernia, uterine cancer with hysterectomy, tardive dyskinesia r/t psych medication, migraines, sinus problems, paroxysmal atrial fibrillation, past urinary retention w/ past chronic mackenzie, UTIs. History of Any Multi-Drug Resistant Organisms: None Reported Past Surgical History: Adenoidectomy, Cholecystectomy, Ear Surgery, Heart Catheterization, Hysterectomy, Tonsillectomy Additional Past Surgical History / Comment(s): I & D L axillae, L eye surgery for lazy eye, bilateral cataract removal, bilateral myringotomy/tubes, colonoscopy, bronchoscopy, cervical surgery Past Anesthesia/Blood Transfusion Reactions: No Reported Reaction Past Psychological History: Anxiety, Depression, Schizoaffective Disorder Additional Psychological History / Comment(s): Pt resides at [facility]. She uses a walker to ambulate. She gets to [facility] by bus. She has a glucometer. She has oxygen which she wears prn. Smoking Status: Never smoker Past Alcohol Use History: None Reported Additional Past Alcohol Use History / Comment(s): Pt quit drinking in 2006. Past Drug Use History: None Reported - Past Family History Mother Family Medical History: Myocardial Infarction ([place]) Additional Family Medical History / Comment(s): Mother at 72 yrs. Father Family Medical History: Cancer Additional Family Medical History / Comment(s): Throat cancer; father at 72 yrs. Brother(s) Family Medical History: Cancer Additional Family Medical History / Comment(s): Liver cancer Medications and Allergies Home Medications Medication Instructions Recorded Confirmed Type Atorvastatin [Lipitor] 10 mg PO HS 12/30/16 08/18/21 History Metoprolol Tartrate [Lopressor] 12.5 mg PO BID 02/25/17 08/18/21 History Oxybutynin Xl [Ditropan XL] 5 mg PO BID 02/25/17 08/18/21 History Citalopram Hydrobromide [CeleXA] 40 mg PO DAILY 11/05/18 08/18/21 History Gabapentin [Neurontin] 200 mg PO DAILY 05/19/19 08/18/21 History metFORMIN HCL ER [Glucophage XR] 500 mg PO Q48H 05/19/19 08/18/21 History Cyanocobalamin (Vitamin B-12) 1,000 mcg PO DAILY 04/24/20 08/18/21 History [Vitamin B-12] LORazepam [Ativan] 1 mg PO DAILY PRN 04/24/20 08/18/21 History Vit C/E/Zn/Coppr/Lutein/Zeaxan 1 cap PO DAILY 04/24/20 08/18/21 History [Preservision Areds 2 Softgel] Apixaban [Eliquis] 5 mg PO BID 05/07/21 08/18/21 History Digoxin [Lanoxin] 125 mcg PO DAILY 05/07/21 08/18/21 History Isosorbide Mononitrate ER [Imdur] 60 mg PO DAILY 05/07/21 08/18/21 History Ascorbic Acid [Vitamin C] 500 mg PO BID 08/18/21 08/18/21 History Chlorhexidine Gluconate [Peridex] 15 ml PO BID 08/18/21 08/18/21 History Cholecalciferol [Vitamin D3 (25 50 mcg PO DAILY 08/18/21 08/18/21 History Mcg = 1000 Iu)] Deutetrabenazine [Austedo] 9 mg PO BID 08/18/21 08/18/21 History Fluticasone Propionate [Flovent 1 puff INHALATION RT-BID PRN 08/18/21 08/18/21 History Hfa 44 mcg] Furosemide [Lasix] 20 mg PO DAILY 08/18/21 08/18/21 History Nitroglycerin Sl Tabs [Nitrostat] 0.4 mg SUBLINGUAL Q5M PRN 08/18/21 08/18/21 History Tiotropium 2.5 Mcg/Puff [Spiriva 1 puff INHALATION RT-DAILY 08/18/21 08/18/21 History Respimat 2.5 Mcg] Zinc Sulfate [Orazinc] 220 mg PO DAILY 08/18/21 08/18/21 History cloZAPine [Clozaril] 250 mg PO HS 08/18/21 08/18/21 History Allergies Allergy/AdvReac Type Severity Reaction Status Date / Time lorazepam [From Ativan] Allergy Unknown Unknown Verified 08/18/21 22:49 bee venom protein (honey bee) Allergy Anaphylaxis Verified 08/18/21 22:49 hydrocodone [From [place]] AdvReac Confusion Verified 08/18/21 22:49 Physical Exam Vitals: Vital Signs Temp Pulse Resp BP Pulse Ox 08/18/21 23:44 87 24 112/66 97 08/18/21 22:05 85 08/18/21 21:53 78 08/18/21 21:37 98.8 F 80 22 105/71 97 Intake and Output 08/18/21 08/18/21 08/19/21 14:59 22:59 06:59 Other: Weight 71.214 kg Results CBC & Chem 7: 08/18/21 21:53 08/18/21 21:53 Labs: Abnormal Lab Results - Last 24 Hours (Table) 08/18/21 Range/Units 21:53 WBC 14.0 H (3.8-10.6) k/uL Neutrophils # 10.4 H (1.3-7.7) k/uL
[2021-08-19 07:00] LABS: Glucose,Whole Blood 233 mg/dL (75-99)
[2021-08-19] MEDS ORDERED: FLUTICASONE 44 MCG INHALER INHALATION PRN (08:00)
[2021-08-19] MEDS ORDERED: NON FORMULARY DRUG (Tiotropium 2.5 Mcg/Puff 10 PUFF Each) INHALATION SCH (08:00)
[2021-08-19] MEDS: INSULIN ASPART (NovoLOG) 100 UNIT/ML VIAL SQ SCH ×4 (08:33→22:39)
[2021-08-19] MEDS: FUROSEMIDE 20 MG TAB PO SCH (08:35)
[2021-08-19] MEDS: OXYBUTYNIN XL 5 MG TAB.ER.24 PO SCH ×2 (08:35→21:53)
[2021-08-19] MEDS: GABAPENTIN 100 MG CAP PO SCH (08:35)
[2021-08-19] MEDS: ASCORBIC ACID 500 MG TAB PO SCH ×2 (08:35→21:53)
[2021-08-19] MEDS: METOPROLOL TARTRATE 12.5 MG TAB PO SCH ×2 (08:35→21:53)
[2021-08-19] MEDS: DIGOXIN 125 MCG TAB PO SCH (08:35)
[2021-08-19] MEDS: ISOSORBIDE MONONITRATE ER 60 MG TAB.ER.24H PO SCH (08:35)
[2021-08-19] MEDS: APIXABAN 5 MG TAB PO SCH ×2 (08:35→21:53)
[2021-08-19] MEDS: CITALOPRAM HYDROBROMIDE 20 MG TAB PO SCH (08:35)
[2021-08-19] MEDS: IPRATROPIUM-ALBUTEROL 3 ML NEB INHALATION SCH ×4 (08:44→20:12)
[2021-08-19 09:16] LABS: HCT 41.2 % (37.2-46.3); HGB 12.7 g/dL (12.0-15.0); MCH 29.7 pg (27.0-32.0); MCHC 30.8 g/dL (32.0-37.0); MCV 96.3 fL (80.0-97.0); Mean Platelet Volume 10.4 fL (9.5-12.2); NRBC Per 100 WBC 0 /100 WBCS (0.0-0.0); Platelet Count 252 X 10*3/uL (140-440); RBC 4.28 X 10*6/uL (4.10-5.20); RDW 12.1 % (11.5-14.5); WBC 9.85 X 10*3/uL (4.50-10.00)
[2021-08-19 10:05] LABS: African American GFR (CKD) 68.5 (60.0-200.0); Anion Gap 16.6 mmol/L (10.00-18.00); BUN/Creat Ratio 18.3 Ratio (12.00-20.00); Blood Urea Nitrogen 18.3 mg/dL (9.0-27.0); Calcium 9.3 mg/dL (8.7-10.3); Carbon Dioxide 23.4 mmol/L (20.0-27.5); Non-African American GFR(CKD) 59.1 (60.0-200.0); Potassium 4.2 mmol/L (3.5-5.5)
--- NOTE | 2021-08-19 10:50 | P.PN ---
Subjective Progress Note Date: 08/19/21 Hospital course: Patient is a 66-year-old female with a past medical history of schizoaffective disorder, COPD home oxygen dependent on 2 L at all times, atrial fibrillation on oral anticoagulation with Eliquis, hypertension, hyperlipidemia, and [id number] diabetes mellitus. Patient presented to the emergency department on 08/19/21 with a chief complaint of increased shortness of breath and cough. Patient reports increased shortness of breath and productive cough over the past 3 days with episodes of blood-tinged sputum, patient denies bright red phlegm production but does report after excessive coughing sputum has been streaked with blood. Patient denies any chest pain, palpitations, fevers, chills, nausea, vomiting, dizziness, lightheadedness, or experiencing any numbness/tingling/weakness in her extremities. She was admitted under our services for acute COPD exacerbation and overnight, pt began having auditory hallucinations and stated that the voices in her head were telling her to kill herself. Pt was placed in suicide precautions and consult was placed to psychiatry. Physical exam: Patient seen and fully evaluated at bedside this morning. Sitter was at bedside maintaining her safety. Patient continues to report having auditory hallucinations stating that she hears voices in her head that are telling her to kill herself. When asked what these voices are saying patient simply laughed out loud. Patient denies having visual or tactile hallucinations and denies having a suicidal plan. Psychiatry has been consulted and awaiting their evaluation. Patient reports continued coarse cough but improvement in shortness of breath. Patient continues to deny having any headache, lightheadedness, dizziness, chest pain, or palpitations. Patient remains on baseline home oxygen of 2 L and maintaining SpO2 well at 95%. Vital signs reviewed and stable. General: Nontoxic, no distress and appears stated age. Derm: Skin warm and dry, normal coloration for ethnicity. Head: Atraumatic, normocephalic and symmetric. Eyes: EOMs intact, no lid lag, and anicteric sclera Mouth: no lip lesions, mucus membranes moist Cardiovascular: regular rate and rhythm with normal S1S2, no murmur, positive posterior tibial pulses bilaterally, and cap refill < 2 seconds. Lungs: Respirations even, regular, and unlabored on 2L O2 via NC. Lungs CTA bilaterally, no rhonchi, no rales, no wheezing, and no accessory muscle usage. Abdominal: soft, nontender to palpation, no guarding, no appreciable organomegaly Ext: ROM intact. No gross muscle atrophy, no edema, no contractures Neuro: Speech clear, face symmetrical and CN II-XII grossly intact with no noted focal neuro deficits Psych: Alert and oriented to person, place, time, and situation. Appropriate and pleasant affect. Assessment and Plan of Care: COPD with acute exacerbation -Oxygenation to be administered and titrated as needed to maintain SPO2 equal to or greater than 92% -Telemetry monitoring. -Monitor Pulse-oximetry -Duonebs as needed for SOB and/or wheezing -Incentive Spirometry -Steroids: Solumedrol Schizoaffective disorder Visual hallucinations -Psychiatry consulted for evaluation as patient reports visual hallucinations stating the voices are telling her to kill herself. -Patient was placed and suicide precautions and sitter is at bedside to maintain her safety. -Continue daily medication regimen with Celexa, clozapine, Ativan and Austedo. Atrial fibrillation Continue digoxin, metoprolol, and oral anticoagulation with Eliquis. Digoxin level therapeutic at 0.9. Hypertension Monitor vital signs and continue daily medication regimen with metoprolol and isosorbide mononitrate. Hyperlipidemia Continue daily medication regimen with atorvastatin 10 mg nightly. [id number] diabetes mellitus type II -Hold oral hypoglycemic Glucophage and place patient on glycemic protocol with NovoLog sliding scale. CODE STATUS: Full Code DVT prophylaxis: Eliquis Discussed with: Pt and RN Anticipated discharge date: Tomorrow morning Anticipated discharge place: Home versus inpatient psychiatric facility A total of 39 minutes was spent on the care of this complex patient more than 50% of the time was spent in counseling and care coordination. I reviewed the documentation as provided by the LETITIA above, who is the original author of this note. I agree with the documented assessment and plan, with the following changes: None Objective - Vital Signs Vital signs: Vital Signs Temp 97.8 F 08/19/21 03:30 Pulse 90 08/19/21 08:55 Resp 22 08/19/21 03:30 BP 117/68 08/19/21 03:30 Pulse Ox 94 L 08/19/21 03:30 Intake & Output 08/18/21 08/19/21 08/19/21 18:59 06:59 18:59 Intake Total 100 Balance 100 Weight 71.214 kg Intake: Oral 100 - Labs CBC & Chem 7: 08/19/21 06:53 08/19/21 06:53 Labs: Abnormal Lab Results - Last 24 Hours (Table) 08/18/21 08/19/21 08/19/21 Range/Units 21:53 06:53 06:53 WBC 14.0 H (3.8-10.6) k/uL MCHC 30.8 L (32.0-37.0) g/dL Neutrophils # 10.4 H (1.3-7.7) k/uL Est GFR (CKD-EPI)NonAf 59.1 L (60.0-200.0) Glucose 251 H (70-110) mg/dL POC Glucose (mg/dL) (75-99) mg/dL Hemoglobin A1c (0.0-6.0) % 08/19/21 08/19/21 Range/Units 06:53 06:59 WBC (3.8-10.6) k/uL MCHC (32.0-37.0) g/dL Neutrophils # (1.3-7.7) k/uL Est GFR (CKD-EPI)NonAf (60.0-200.0) Glucose (70-110) mg/dL POC Glucose (mg/dL) 233 H (75-99) mg/dL Hemoglobin A1c 6.4 H (0.0-6.0) %
[2021-08-19 11:30] LABS: Glucose,Whole Blood 187 mg/dL (75-99)
[2021-08-19] MEDS ORDERED: LORazepam 1 MG TAB PO PRN (14:16)
--- NOTE | 2021-08-19 14:46 | P.CN ---
Psychiatric Consult - . Consult date: 08/19/21 Consult:: 08/19/21 13:25 IDENTIFYING DATA: This patient is a 66-year-old female who currently lives in an [facility] home has 2 kids. REASON FOR REFERRAL: Psychiatry was consulted for suicide precautions HISTORY OF PRESENT ILLNESS: The patient presented to the hospital on 08/18 with hemoptysis. Patient was also displaying a cough for several days. Patient was found to have a COPD exacerbation was admitted medically. Patient has a history of schizoaffective disorder and claims that she has been hearing voices telling her to kill herself. She states that these are distressing to her. She states that she usually takes Clozaril and has been recently discharged from [facility] recently from their psychiatric unit. She states that she has taken Seroquel in the past and also Geodon. She states that she has been depressed and having some anxiety. She states that her sleep has been poor. At this time patient denies any current suicidal or homical ideations, intent or plan. Patient denies any visual hallucinations and denies any paranoia or delusions. Patients admits to using no recreational drugs or cigarettes PAST PSYCHIATRIC HISTORY: Patient has a a history of schizoaffective disorder. Patient is currently on Clozaril Celexa and Ativan when necessary she claims that she has been hospitalized in the past. She claims that she currently follows up at the [facility] with Dr. Toscano. She does report a history of several suicide attempts in the past. Past Medical History: Atrial Fibrillation, Coronary Artery Disease (CAD), Cancer, Heart Failure, COPD, CVA/TIA, Diabetes Mellitus, Eye Disorder, GERD/Reflux, Hyperlipidemia, Hypertension Additional Past Medical History / Comment(s): NIDDM type II, neuropathy bilateral feet, bronchial asthma, home oxygen prn, obesity, occasional lower extremity edema, past L axillae cellulitis/abscess-lengthy heal, shingles/staph, R eye wet macular degeneration/ L eye dry macular degeneration, uterine cancer with hysterectomy, TIA, hiatal hernia, uterine cancer with hysterectomy, tardive dyskinesia r/t psych medication, migraines, sinus problems, paroxysmal atrial fibrillation, past urinary retention w/ past chronic mackenzie, UTIs. ALLERGIES: as per EMR. CHEMICAL DEPENDENCY HISTORY: as per HPI. FAMILY PSYCHIATRIC/SUBSTANCE USE HISTORY: denies SOCIAL HISTORY: Patient was born and raised in [place]. She states that she completed 1 year of college. She is currently unemployed. She lives at an [facility] home. She has 2 kids.. MENTAL STATUS EXAM: General Appearance: Patient appears to be older than stated age is alert, concrete. Attempts to cooperate. Patient appears to have fair hygiene and grooming wearing hospital gown with poor eye contact. Behavior: Patient is calmly lying in bed without any agitated behavior. Speech: Patient's speech is fluent and nonpressured. Soft tone Mood/Affect: Patient reports their mood is "depressed and anxious", affect is congruent and constricted Suicidality/Homicidality: Patient denies having any homicidal ideation intent or plan. admits to SI, no intent Perceptions: Patient denies any visual hallucinations and denies any auditory hallucinations Though content/process: concrete, vbague, preoccupied with sx. Memory and concentration: AOX3, grossly intact for the purposes of this session. Can spell "WORLD" backwards Judgment and insight: poor IMPRESSIONS: Schizoaffective disorder, depressive type PLAN: -At this time psych will continue to follow along to see if patient requires inpt myles psych placement or not -Delirium precautions recommended with patient including - avoiding use of narcotics and DIRECTOR OF ROOMS sedatives, limit anticholinergic medications when possible, frequent re-orientation, minimize use of restraints, open window shades during the day and close them at night -Would recommend the following medication changes/additions: Increase Clozaril to 300 mg daily at bedtime for mood stabilization/psychosis/insomnia. Continue with Celexa 40 mg daily for mood sessions ID. Added lithium 150 mg twice a day for mood adjunct/suicidal thoughts. Added melatonin 5 mg daily at bedtime for insomnia. -Continue 1:1 sitter for safety and due to suicidal thoughts. -Cannot leave AMA at this time. Patient will need a petition and certification if attempting to leave AMA. -Communicated plan to patient's nurse -Will continue to follow along -she currently follows up at [facility] for psych care -Please contact with any questions.
[2021-08-19 16:26] LABS: Glucose,Whole Blood 203 mg/dL (75-99)
[2021-08-19 20:51] LABS: Glucose,Whole Blood 173 mg/dL (75-99)
[2021-08-19] MEDS ORDERED: ATORVASTATIN 10 MG TAB PO SCH (21:00)
[2021-08-19] MEDS ORDERED: cloZAPine 100 MG TAB PO SCH ×2 (21:00)
[2021-08-19] MEDS ORDERED: MELATONIN 5 MG TABLET PO SCH (21:00)
[2021-08-19] MEDS: LITHIUM CARBONATE 150 MG CAP PO SCH (21:53)
[2021-08-19] MEDS: DEUTETRABENAZINE 9 MG PO SCH (21:53)
[2021-08-20] MEDS: methylPREDNISolone SOD SUCCI 125 MG/2 ML VIAL IV SCH ×3 (00:50→11:33)
[2021-08-20 06:48] LABS: Glucose,Whole Blood 176 mg/dL (75-99)
[2021-08-20 07:26] VITALS: RESP 19
[2021-08-20] MEDS: LITHIUM CARBONATE 150 MG CAP PO SCH (07:55)
[2021-08-20] MEDS: GABAPENTIN 100 MG CAP PO SCH (07:55)
[2021-08-20] MEDS: DIGOXIN 125 MCG TAB PO SCH (07:55)
[2021-08-20] MEDS: CITALOPRAM HYDROBROMIDE 20 MG TAB PO SCH (07:55)
[2021-08-20] MEDS: ASCORBIC ACID 500 MG TAB PO SCH (07:55)
[2021-08-20] MEDS: OXYBUTYNIN XL 5 MG TAB.ER.24 PO SCH (07:56)
[2021-08-20] MEDS: FUROSEMIDE 20 MG TAB PO SCH (07:56)
[2021-08-20] MEDS: DEUTETRABENAZINE 9 MG PO SCH (07:56)
[2021-08-20] MEDS: METOPROLOL TARTRATE 12.5 MG TAB PO SCH (07:56)
[2021-08-20] MEDS: ISOSORBIDE MONONITRATE ER 60 MG TAB.ER.24H PO SCH (07:56)
[2021-08-20] MEDS: APIXABAN 5 MG TAB PO SCH (07:56)
[2021-08-20] MEDS: INSULIN ASPART (NovoLOG) 100 UNIT/ML VIAL SQ SCH ×2 (07:57→11:33)
[2021-08-20] MEDS: IPRATROPIUM-ALBUTEROL 3 ML NEB INHALATION SCH ×2 (09:21→12:43)
[2021-08-20 11:24] LABS: Glucose,Whole Blood 199 mg/dL (75-99)
--- NOTE | 2021-08-20 11:53 | P.PN ---
Progress Note - Text Progress Note Date: 08/20/21 Interval History: Patient was seen today for psych follow up. Patients nurse claimed the patient has been fairly appropriate and has been taking her medications and denied any complaints. Patient was seen at the bedside with her sitter and was coloring some pictures. She was also watching television. She appeared to be fairly directable and cooperative with insurance underwriter sales. She states that she is feeling better since yesterday. She asked more questions about her medications and states that she feels the Clozaril does help her. She claims that the dose was increased to 300 mg yesterday which is okay with. She also states that she is taking lithium which has been helping her and she is denying any suicidal thoughts at this time. 2. We fairly future oriented. She states that she wants to eventually be involved in more groups and enjoys the company. She is denying any depression or anxiety today. She states that she slept on and off last night. Has a fair appetite. At this time patient denies any suicidal or homical ideations, intent or plan. Patient denies any visual hallucinations and denies any paranoia or delusions. She does admit to chronic auditory hallucinations have been improving mildly since yesterday. They are not distressing for her. Patient denies any side effects from the medications and has been compliant with meds. Mental Status Exam: General Appearance: Patient appears to be older than stated age is alert, concrete. More cooperate. Patient appears to have fair hygiene and grooming wearing hospital gown with improved eye contact. Behavior: Patient is calmly lying in bed without any agitated behavior. More cooperative. Speech: Patient's speech is fluent and nonpressured. Mood/Affect: Patient reports their mood is "better", affect is congruent Suicidality/Homicidality: Patient denies having any homicidal ideation intent or plan. Denies any suicidal thoughts, no intent or plan. Perceptions: Patient denies any visual hallucinations and admits to chronic auditory hallucinations which have improved and are non-distressing. Though content/process: concrete, more future oriented. Logical. Memory and concentration: AOX3, grossly intact for the purposes of this session. Can spell "WORLD" backwards Judgment and insight: Improved IMPRESSIONS: Schizoaffective disorder, depressive type PLAN: -At this time psych will will sign off as patient has been improving significantly and is stable for outpatient psychiatric follow-up. She is okay to return back to her [facility] once medically cleared. She follows up with [facility] for her mental health treatment. At this time she does not meet criteria for inpatient psychiatric care. -Delirium precautions recommended with patient including - avoiding use of narcotics and COMMUNITY LIVING COACH sedatives, limit anticholinergic medications when possible, frequent re-orientation, minimize use of restraints, open window shades during the day and close them at night -Would recommend the following medication changes/additions: Clozaril 300 mg daily at bedtime for mood stabilization/psychosis/insomnia. Changed Celexa 40 mg daily at bedtime for mood/anxiety. lithium 150 mg twice a day for mood adjunct/suicidal thoughts. Increased melatonin 10 mg daily at bedtime for insomnia. -Communicated plan to patient's nurse -At this time psychiatry will sign off. -Please contact with any questions.
--- NOTE | 2021-08-20 12:18 | P.DS ---
Providers Date of admission: 08/18/21 22:44 Expected date of discharge: 08/20/21 Attending physician: Elizabet Perkins MD Primary care physician: Loki Gomes [facility] Course: Discharge Diagnosis: COPD with acute exacerbation, being discharged home on prednisone 50 mg daily 4 more days, DuoNeb nebs as needed for wheezing/shortness of breath, and to follow up outpatient with her processing clerk. Schizoaffective disorder with auditory hallucinations, psychiatry evaluated patient and in addition to patient's medication regimen with Celexa, Ativan, and prostate oh medication changes were made. Patient's Clozaril was increased to 300 mg and changed from each morning and 2 at bedtime for mood stabilization/psychosis/insomnia, Celexa was changed to 40 mg at bedtime for mood/anxiety and lithium was added 150 mg twice a day for mood adjunct/suicidal thoughts prescriptions were sent as recommended by psychiatrist and it is imperative that patient follow up with her psychiatrist with [facility] for continued mental health treatment and medication management. Atrial fibrillation, Continue digoxin, metoprolol, and oral anticoagulation with Eliquis. Digoxin level was therapeutic at 0.9. Hypertension, Monitor vital signs and continue daily medication regimen with metoprolol and isosorbide mononitrate. Hyperlipidemia, Continue daily medication regimen with atorvastatin 10 mg nightly. [id number] diabetes mellitus type II, continue daily medication management with metformin Hospital Course: Patient is a 66-year-old female with a past medical history of schizoaffective disorder, COPD home oxygen dependent on 2 L at all times, atrial fibrillation on oral anticoagulation with Eliquis, hypertension, hyperlipidemia, and iol-[id number]-nondtrgmu diabetes mellitus. Patient presented to the emergency department on 08/19/21 with a chief complaint of increased shortness of breath and cough. Patient reports increased shortness of breath and productive cough over the past 3 days with episodes of blood-tinged sputum, patient denies bright red phlegm production but does report after excessive coughing sputum has been streaked with blood. Patient denies any chest pain, palpitations, fevers, chills, nausea, vomiting, dizziness, lightheadedness, or experiencing any numbness/tingling/weakness in her extremities. She was admitted under our s ervices for acute COPD exacerbation and overnight, pt began having auditory hallucinations and stated that the voices in her head were telling her to kill herself. Pt was placed in suicide precautions and consult was placed to psychiatry. Patient received treatment with nebulizers and steroids for her COPD exacerbation. Psychiatry evaluated patient and in addition to patient's medication regimen with Celexa, Ativan, and prostate oh medication changes were made. Patient's Clozaril was increased to 300 mg and changed from each morning and 2 at bedtime for mood stabilization/psychosis/insomnia, Celexa was changed to 40 mg at bedtime for mood/anxiety and lithium was added 150 mg twice a day for mood adjunct/suicidal thoughts prescriptions were sent as recommended by psychiatrist and it is imperative that patient follow up with her psychiatrist with [facility] for continued mental health treatment and medication management. Patient is medically stable for discharge back to [facility] home. She is being discharged home on prednisone 50 mg daily 4 more days, DuoNeb nebs as needed for wheezing/shortness of breath, and to follow up outpatient with her processing clerk, PCP, and psychiatrist with [facility]. Physical exam: Patient seen and fully evaluated at bedside this morning. She is doing well. She reports that she is not hearing voices in her head as often as she used to and currently denies having suicidal ideations or plan. Patient was ambulatory up and down the halls and is doing well. Patient chronically on 2 L home oxygen. Patient ambulating up and down the halls without difficulty and currently 96% on room air. Patient reports improvement in shortness of breath and denies having any chest pain, palpitations, or experiencing any dizzines s/lightheadedness. Patient has been cleared by psychiatry for discharge back to AF home, medication changes were made and recommend following up outpatient with psychiatrist from [facility]. Vital signs reviewed and stable. General: Nontoxic, no distress and appears stated age. Derm: Skin warm and dry, normal coloration for ethnicity. Head: Atraumatic, normocephalic and symmetric. Eyes: EOMs intact, no lid lag, and anicteric sclera Mouth: no lip lesions, mucus membranes moist Cardiovascular: regular rate and rhythm with normal S1S2, no murmur, positive posterior tibial pulses bilaterally, and cap refill < 2 seconds. Lungs: Respirations even, regular, and unlabored on 2L O2 via NC. Lungs CTA bilaterally, no rhonchi, no rales, no wheezing, and no accessory muscle usage. Abdominal: soft, nontender to palpation, no guarding, no appreciable organomegaly Ext: ROM intact. No gross muscle atrophy, no edema, no contractures Neuro: Speech clear, face symmetrical and CN II-XII grossly intact with no noted focal neuro deficits Psych: Alert and oriented to person, place, time, and situation. Appropriate and pleasant affect. A total of 39 minutes of time were spent preparing this complex discharge summary. I reviewed the documentation as provided by the LETITIA above, who is the original author of this note. I agree with the documented assessment and plan, with the following changes: None Patient Condition at Discharge: Stable Plan - Discharge Summary New Discharge Prescriptions: New cloZAPine [Clozaril] 300 mg PO HS 30 Days #90 tab Melatonin 10 mg PO HS 30 Days #60 tablet predniSONE 50 mg PO DAILY 4 Days #4 tab Ipratropium-Albuterol Nebulize [Duoneb 0.5 mg-3 mg/3 ml Soln] 3 ml INHALATION RT-QID PRN #240 ml PRN Reason: Shortness Of Breath Or Wheezing [place] Carbonate 150 mg PO BID 30 Days #60 cap Continue Atorvastatin [Lipitor] 10 mg PO HS Metoprolol Tartrate [Lopressor] 12.5 mg PO BID Oxybutynin Xl [Ditropan XL] 5 mg PO BID Gabapentin [Neurontin] 200 mg PO DAILY metFORMIN HCL ER [Glucophage XR] 500 mg PO Q48H Vit C/E/Zn/Coppr/Lutein/Zeaxan [Preservision Areds 2 Softgel] 1 cap PO DAILY LORazepam [Ativan] 1 mg PO DAILY PRN PRN Reason: Anxiety Cyanocobalamin (Vitamin B-12) [Vitamin B-12] 1,000 mcg PO DAILY Apixaban [Eliquis] 5 mg PO BID Zinc Sulfate [Orazinc] 220 mg PO DAILY Tiotropium 2.5 Mcg/Puff [Spiriva Respimat 2.5 Mcg] 1 puff INHALATION RT-DAILY Fluticasone Propionate [Flovent Hfa 44 mcg] 1 puff INHALATION RT-BID PRN PRN Reason: Shortness Of Breath Cholecalciferol [Vitamin D3 (25 Mcg = 1000 Iu)] 50 mcg PO DAILY Isosorbide Mononitrate ER [Imdur] 60 mg PO DAILY Digoxin [Lanoxin] 125 mcg PO DAILY Chlorhexidine Gluconate [Peridex] 15 ml PO BID Nitroglycerin Sl Tabs [Nitrostat] 0.4 mg SUBLINGUAL Q5M PRN PRN Reason: Chest Pain Ascorbic Acid [Vitamin C] 500 mg PO BID Furosemide [Lasix] 20 mg PO DAILY Deutetrabenazine [Austedo] 9 mg PO BID Changed Citalopram Hydrobromide [CeleXA] 40 mg PO HS #0 Discontinued cloZAPine [Clozaril] 250 mg PO HS Discharge Medication List Atorvastatin [Lipitor] 10 mg PO HS 12/30/16 [History] Metoprolol Tartrate [Lopressor] 12.5 mg PO BID 02/25/17 [History] Oxybutynin Xl [Ditropan XL] 5 mg PO BID 02/25/17 [History] Gabapentin [Neurontin] 200 mg PO DAILY 05/19/19 [History] metFORMIN HCL ER [Glucophage XR] 500 mg PO Q48H 05/19/19 [History] Cyanocobalamin (Vitamin B-12) [Vitamin B-12] 1,000 mcg PO DAILY 04/24/20 [History] LORazepam [Ativan] 1 mg PO DAILY PRN 04/24/20 [History] Vit C/E/Zn/Coppr/Lutein/Zeaxan [Preservision Areds 2 Softgel] 1 cap PO DAILY 04/24/20 [History] Apixaban [Eliquis] 5 mg PO BID 05/07/21 [History] Digoxin [Lanoxin] 125 mcg PO DAILY 05/07/21 [History] Isosorbide Mononitrate ER [Imdur] 60 mg PO DAILY 05/07/21 [History] Ascorbic Acid [Vitamin C] 500 mg PO BID 08/18/21 [History] Chlorhexidine Gluconate [Peridex] 15 ml PO BID 08/18/21 [History] Cholecalciferol [Vitamin D3 (25 Mcg = 1000 Iu)] 50 mcg PO DAILY 08/18/21 [History] Deutetrabenazine [Austedo] 9 mg PO BID 08/18/21 [History] Fluticasone Propionate [Flovent Hfa 44 mcg] 1 puff INHALATION RT-BID PRN 08/18/21 [History] Furosemide [Lasix] 20 mg PO DAILY 08/18/21 [History] Nitroglycerin Sl Tabs [Nitrostat] 0.4 mg SUBLINGUAL Q5M PRN 08/18/21 [History] Tiotropium 2.5 Mcg/Puff [Spiriva Respimat 2.5 Mcg] 1 puff INHALATION RT-DAILY 08/18/21 [History] Zinc Sulfate [Orazinc] 220 mg PO DAILY 08/18/21 [History] Citalopram Hydrobromide [CeleXA] 40 mg PO HS #0 08/20/21 [Rx] Ipratropium-Albuterol Nebulize [Duoneb 0.5 mg-3 mg/3 ml Soln] 3 ml INHALATION RT-QID PRN #240 ml 08/20/21 [Rx] [place] Carbonate 150 mg PO BID 30 Days #60 cap 08/20/21 [Rx] Melatonin 10 mg PO HS 30 Days #60 tablet 08/20/21 [Rx] cloZAPine [Clozaril] 300 mg PO HS 30 Days #90 tab 08/20/21 [Rx] predniSONE 50 mg PO DAILY 4 Days #4 tab 08/20/21 [Rx] Follow up Appointment(s)/Referral(s): Basim Bunch DO [Doctor of Osteopathic Medicine] - 1 Week Loki Gomes MD [Primary Care Provider] - 1-2 days Ambulatory/Diagnostic Orders: Miscellaneous Lab Order [LAB.AMB] Time Frame: 1 Week, Location: None Selected Patient Instructions/Handouts: COPD (Chronic Obstructive Pulmonary Disease) (DC) Activity/Diet/Wound Care/Special Instructions: Activity: As tolerated. Take breaks as needed. Diet: Heart healthy and carb consistent diet. Avoid salts, or foods with hidden salts such as canned or boxed foods and frozen dinners. Extra salt makes your heart work harder and traps the fluid in your body for longer. Special Instructions: Take all of your medications as directed and remember to keep all of your doctor's appointments and follow-up as needed. Patient has had multiple medication changes for treatment of her schizoaffective disorder and has been cleared by psychiatry for return back to her AF home. Patient is medically stable at this time. It is imperative that patient follow up with her psychiatrist with [facility] for continued treatment of her mental health. Patient was started on lithium and to have follow-up lab work done in 1 week to monitor lithium levels. Results to be sent to PCP, Dr. Gomes for follow up. Thank you for allowing us to participate in your care, it was truly a pleasure having you for our patient!!! Discharge Disposition: HOME WITH HOME HEALTH SERVICES
[2021-08-20 13:35] VITALS: BP 111/70; PULSE 86; TEMP 97.3
[2021-08-20] MEDS ORDERED: MELATONIN 5 MG TABLET PO SCH (21:00)
[2021-08-20] MEDS ORDERED: CITALOPRAM HYDROBROMIDE 20 MG TAB PO SCH (21:00)
== END 2021-08-20 13:07 | disposition home health service (06) ==
LOC: EC 21:28 → EEVIPCON 22:44 → 6NMEDSUR 22:44 → 4SSUR 08-19 02:03
PROVIDERS: ADMIT Internal Medicine; ATTEND Internal Medicine
DX: J44.1 Chronic obstructive pulmonary disease with (acute) exacerbation (principal); J96.21 Acute and chronic respiratory failure with hypoxia; F25.1 Schizoaffective disorder, depressive type; R45.851 Suicidal ideations; J84.10 Pulmonary fibrosis, unspecified; I11.0 Hypertensive heart disease with heart failure; I50.9 Heart failure, unspecified; D72.829 Elevated white blood cell count, unspecified; I48.0 Paroxysmal atrial fibrillation; E78.5 Hyperlipidemia, unspecified; G47.00 Insomnia, unspecified; E11.9 Type 2 diabetes mellitus without complications; H35.3120 Nonexudative age-related macular degeneration, left eye, stage unspecified; H35.3210 Exudative age-related macular degeneration, right eye, stage unspecified; F41.9 Anxiety disorder, unspecified; I25.10 Atherosclerotic heart disease of native coronary artery without angina pectoris; K21.9 Gastro-esophageal reflux disease without esophagitis; E11.42 Type 2 diabetes mellitus with diabetic polyneuropathy; E66.9 Obesity, unspecified; Z68.26 Body mass index [BMI] 26.0-26.9, adult; G24.01 Drug induced subacute dyskinesia; G43.909 Migraine, unspecified, not intractable, without status migrainosus; Z79.84 Long term (current) use of oral hypoglycemic drugs; Z79.01 Long term (current) use of anticoagulants; Z79.899 Other long term (current) drug therapy; Z88.5 Allergy status to narcotic agent; Z88.6 Allergy status to analgesic agent; Z88.8 Allergy status to other drugs, medicaments and biological substances; Z91.030 Bee allergy status; Z90.710 Acquired absence of both cervix and uterus; Z90.49 Acquired absence of other specified parts of digestive tract; Z98.42 Cataract extraction status, left eye; Z98.41 Cataract extraction status, right eye; Z86.73 Personal history of transient ischemic attack (TIA), and cerebral infarction without residual deficits; Z99.81 Dependence on supplemental oxygen; Z91.51 Personal history of suicidal behavior; Z85.42 Personal history of malignant neoplasm of other parts of uterus; Z87.440 Personal history of urinary (tract) infections; Z56.0 Unemployment, unspecified; Z98.890 Other specified postprocedural states; Z82.49 Family history of ischemic heart disease and other diseases of the circulatory system; Z80.8 Family history of malignant neoplasm of other organs or systems; Z80.0 Family history of malignant neoplasm of digestive organs
CPT/HCPCS: 96376 ×3; 96374; 99285; 36415; 94640 ×5; 94760 ×2; 93005; 85379; 83880; 80053; 80048; 80162; 83605; 85025; 85027; 85610; 85730; 87040; 83036; 84145; 71046; G0378 ×4; J2930 ×3; S0136

== ENCOUNTER 2021-09-03 14:10 | Emergency (ER) | payer MEDICARE, OTHER ==
[2021-09-03] MEDS ORDERED: SODIUM CHLORIDE 0.9% 1,000 ML IV STA (14:30)
[2021-09-03 15:03] LABS: Basophils % (A) 0 %; Eosinophils # (A) 0.1 k/uL (0-0.7); Eosinophils % (A) 1 %; HCT 41.8 % (34.0-46.0); HGB 13.6 gm/dL (11.4-16.0); Lymphocytes # (A) 1.5 k/uL (1.0-4.8); Lymphocytes % (A) 19 %; MCH 30.7 pg (25.0-35.0); MCHC 32.4 g/dL (31.0-37.0); MCV 94.7 fL (80.0-100.0); Mean Platelet Volume 7.6; Monocytes # (A) 0.4 k/uL (0-1.0); Monocytes % (A) 5 %; Neutrophils # (A) 5.7 k/uL (1.3-7.7); Neutrophils % (A) 73 %; Platelet Count 230 k/uL (150-450); RBC 4.42 m/uL (3.80-5.40); RDW 12.8 % (11.5-15.5); WBC 7.8 k/uL (3.8-10.6)
[2021-09-03 15:17] LABS: Appearance,Urine Clear (Clear); Bilirubin,Urine Negative (Negative); Blood,Urine Negative (Negative); Color,Urine Yellow; Glucose,Urine (UA) Negative (Negative); Hyaline Casts,Urine 15 /lpf (0-2); Ketones,Urine Negative (Negative); Leukocyte Esterase,Urine Small (Negative); Mucus,Urine Rare /hpf; Nitrite,Urine Negative (Negative); Protein,Urine Negative (Negative); RBC,Urine 1 /hpf (0-5); Specific Gravity,Urine 1.011 (1.001-1.035); Squamous Epithelial Cell,Urine 2 /hpf (0-4); Urobilinogen,Urine <2.0 mg/dL (<2.0); WBC,Urine 8 /hpf (0-5)
[2021-09-03 15:24] LABS: Albumin 3.2 g/dL (3.5-5.0); Calcium 8.4 mg/dL (8.4-10.2); Lithium 0.6 mmol/L; Magnesium 1.7 mg/dL (1.6-2.3); Potassium 3.3 mmol/L (3.5-5.1); Total Bilirubin 0.5 mg/dL (0.2-1.3); Total Protein 5.6 g/dL (6.3-8.2)
--- NOTE | 2021-09-03 15:38 | ED ---
General Adult HPI - General Chief complaint: Weakness Stated complaint: weakness Time Seen by Provider: 09/03/21 14:30 Source: patient, EMS, RN notes reviewed, old records reviewed Mode of arrival: EMS - History of Present Illness Initial comments: This is a 66-year-old female presents emergency Department complaining of generalized weakness per patient states she woke up this morning and felt extremely weak and she was having difficulty standing up and walking across the room. Patient states she attempted this for about 3 hours before she called EMS. Patient states she recently started lithium and she thinks that somebody without potentially. Patient denies any pain per patient denies any chest pain or abdominal pain. Patient denies any headache patient denies numbness weakness. Patient denies any lightheadedness or dizziness. Patient denies any recent fever chills or cough per patient denies any nausea or vomiting. - Related Data Home Medications Medication Instructions Recorded Confirmed Atorvastatin [Lipitor] 10 mg PO HS 12/30/16 09/03/21 Metoprolol Tartrate [Lopressor] 12.5 mg PO BID 02/25/17 09/03/21 Oxybutynin Xl [Ditropan XL] 5 mg PO BID 02/25/17 09/03/21 Gabapentin [Neurontin] 200 mg PO DAILY 05/19/19 09/03/21 metFORMIN HCL ER [Glucophage XR] 500 mg PO Q48H 05/19/19 09/03/21 Cyanocobalamin (Vitamin B-12) 1,000 mcg PO DAILY 04/24/20 09/03/21 [Vitamin B-12] LORazepam [Ativan] 1 mg PO DAILY PRN 04/24/20 09/03/21 Vit C/E/Zn/Coppr/Lutein/Zeaxan 1 cap PO DAILY 04/24/20 09/03/21 [Preservision Areds 2 Softgel] Apixaban [Eliquis] 5 mg PO BID 05/07/21 09/03/21 Digoxin [Lanoxin] 125 mcg PO DAILY 05/07/21 09/03/21 Isosorbide Mononitrate ER [Imdur] 60 mg PO DAILY 05/07/21 09/03/21 Ascorbic Acid [Vitamin C] 500 mg PO BID 08/18/21 09/03/21 Chlorhexidine Gluconate [Peridex] 15 ml PO BID 08/18/21 09/03/21 Cholecalciferol [Vitamin D3 (25 50 mcg PO DAILY 08/18/21 09/03/21 Mcg = 1000 Iu)] Deutetrabenazine [Austedo] 9 mg PO BID 08/18/21 09/03/21 Fluticasone Propionate [Flovent 1 puff INHALATION RT-BID PRN 08/18/21 09/03/21 Hfa 44 mcg] Furosemide [Lasix] 20 mg PO DAILY 08/18/21 09/03/21 Nitroglycerin Sl Tabs [Nitrostat] 0.4 mg SUBLINGUAL Q5M PRN 08/18/21 09/03/21 Tiotropium 2.5 Mcg/Puff [Spiriva 1 puff INHALATION RT-DAILY 08/18/21 09/03/21 Respimat 2.5 Mcg] Zinc Sulfate [Orazinc] 220 mg PO DAILY 08/18/21 09/03/21 cloZAPine [Clozaril] 250 mg PO HS 09/03/21 09/03/21 Previous Rx's Medication Instructions Recorded Citalopram Hydrobromide [CeleXA] 40 mg PO HS #0 08/20/21 [place] Carbonate 150 mg PO BID 30 Days #60 cap 08/20/21 Melatonin 10 mg PO HS 30 Days #60 tablet 08/20/21 Allergies Allergy/AdvReac Type Severity Reaction Status Date / Time lorazepam [From Ativan] Allergy Unknown Unknown Verified 09/03/21 15:03 bee venom protein (honey bee) Allergy Anaphylaxis Verified 09/03/21 15:03 hydrocodone [From [place]] AdvReac Confusion Verified 09/03/21 15:03 Review of Systems ROS Statement: Those systems with pertinent positive or pertinent negative responses have been documented in the HPI. ROS Other: All systems not noted in ROS Statement are negative. Past Medical History Past Medical History: Atrial Fibrillation, Coronary Artery Disease (CAD), Cancer, Heart Failure, COPD, CVA/TIA, Diabetes Mellitus, Eye Disorder, GERD/Reflux, Hyperlipidemia, Hypertension Additional Past Medical History / Comment(s): NIDDM type II, neuropathy bilateral feet, bronchial asthma, home oxygen prn, obesity, occasional lower extremity edema, past L axillae cellulitis/abscess-lengthy heal, shingles/staph, R eye wet macular degeneration/ L eye dry macular degeneration, uterine cancer with hysterectomy, TIA, hiatal hernia, uterine cancer with hysterectomy, tardive dyskinesia r/t psych medication, migraines, sinus problems, paroxysmal atrial f ibrillation, past urinary retention w/ past chronic mackenzie, UTIs. History of Any Multi-Drug Resistant Organisms: None Reported Past Surgical History: Adenoidectomy, Cholecystectomy, Ear Surgery, Heart Catheterization, Hysterectomy, Tonsillectomy Additional Past Surgical History / Comment(s): I & D L axillae, L eye surgery f or lazy eye, bilateral cataract removal, bilateral myringotomy/tubes, colonoscopy, bronchoscopy, cervical surgery Past Anesthesia/Blood Transfusion Reactions: No Reported Reaction Past Psychological History: Anxiety, Depression, Schizoaffective Disorder Smoking Status: Never smoker Past Alcohol Use History: None Reported Past Drug Use History: None Reported - Past Family History Mother Family Medical History: Myocardial Infarction (SD) Additional Family Medical History / Comment(s): Mother at 72 yrs. Father Family Medical History: Cancer Additional Family Medical History / Comment(s): Throat cancer; father at 72 yrs. Brother(s) Family Medical History: Cancer Additional Family Medical History / Comment(s): Liver cancer General Exam - General Exam Comments Initial Comments: GENERAL: Patient is well-developed and well-nourished. Patient is nontoxic and well- hydrated and is in mild distress. ENT: Neck is soft and supple. No significant lymphadenopathy is noted. Oropharynx is clear. Moist mucous membranes. Neck has full range of motion without eliciting any pain. EYES: The sclera were anicteric and conjunctiva were pink and moist. Extraocular movements were intact and pupils were equal round and reactive to light. Eyelids were unremarkable. PULMONARY: Unlabored respirations. Good breath sounds bilaterally. No audible rales rhonchi or wheezing was noted. CARDIOVASCULAR: There is a regular rate and rhythm without any murmurs gallops or rubs. ABDOMEN: Soft and nontender with normal bowel sounds. SKIN: Skin is clear with no lesions or rashes and otherwise unremarkable. NEUROLOGIC: Patient is alert and oriented x3. Cranial nerves II through XII are grossly intact. Motor and sensory are also intact. Normal speech, volume and content. Symmetrical smile. MUSCULOSKELETAL: Normal extremities with adequate strength and full range of motion. Patient was able to get up and stand but was very unsteady on her feet. LYMPHATICS: No significant lymphadenopathy is noted PSYCHIATRIC: Normal psychiatric evaluation. Course Vital Signs 09/03/21 09/03/21 09/03/21 14:28 16:08 18:17 Temperature 98.0 F 98.1 F Pulse Rate 14 L 70 80 Respiratory 72 H 14 14 Rate Blood Pressure 109/62 111/68 134/91 O2 Sat by Pulse 97 100 97 Oximetry Medical Decision Making - Medical Decision Making EKG shows sinus rhythm at 60 bpm MI interval is 142 QRS is 81 Q-T intervals 412 QTC is 419. Patient's EKG shows no ST segment elevation. Chest x-ray shows no acute abnormality Computed tomography scan of the patient showed no acute abnormality. After the patient was here for a few hours she was able to get up and walk down the hallway and she stated to me that she felt much improved. Patient states she can go home and use her walker and be fine. Patient stated that if she felt worse she would come back in. - Lab Data Result diagrams: 09/03/21 14:41 09/03/21 14:41 Lab Results 09/03/21 09/03/21 09/03/21 Range/Units 14:41 14:41 14:41 WBC 7.8 (3.8-10.6) k/uL RBC 4.42 (3.80-5.40) m/uL Hgb 13.6 (11.4-16.0) gm/dL Hct 41.8 (34.0-46.0) % MCV 94.7 (80.0-100.0) fL MCH 30.7 (25.0-35.0) pg MCHC 32.4 (31.0-37.0) g/dL RDW 12.8 (11.5-15.5) % Plt Count 230 (150-450) k/uL MPV 7.6 Neutrophils % 73 % Lymphocytes % 19 % Monocytes % 5 % Eosinophils % 1 % Basophils % 0 % Neutrophils # 5.7 (1.3-7.7) k/uL Lymphocytes # 1.5 (1.0-4.8) k/uL Monocytes # 0.4 (0-1.0) k/uL Eosinophils # 0.1 (0-0.7) k/uL Basophils # 0.0 (0-0.2) k/uL PT 11.0 (9.0-12.0) sec INR 1.0 (<1.2) Sodium (137-145) mmol/L Potassium (3.5-5.1) mmol/L Chloride (98-107) mmol/L Carbon Dioxide (22-30) mmol/L Anion Gap mmol/L BUN (7-17) mg/dL Creatinine (0.52-1.04) mg/dL Est GFR (CKD-EPI)AfAm (>60 ml/min/1.73 sqM) Est GFR (CKD-EPI)NonAf (>60 ml/min/1.73 sqM) Glucose (74-99) mg/dL Calcium (8.4-10.2) mg/dL Magnesium (1.6-2.3) mg/dL Total Bilirubin (0.2-1.3) mg/dL AST (14-36) U/L ALT (4-34) U/L Alkaline Phosphatase (38-126) U/L Troponin I (0.000-0.034) ng/mL Total Protein (6.3-8.2) g/dL Albumin (3.5-5.0) g/dL Urine Color Yellow Urine Appearance Clear (Clear) Urine pH 7.0 (5.0-8.0) Ur Specific [place] 1.011 (1.001-1.035) Urine Protein Negative (Negative) Urine Glucose (UA) Negative (Negative) Urine Ketones Negative (Negative) Urine Blood Negative (Negative) Urine Nitrite Negative (Negative) Urine Bilirubin Negative (Negative) Urine Urobilinogen <2.0 (<2.0) mg/dL Ur Leukocyte Esterase Small H (Negative) Urine RBC 1 (0-5) /hpf Urine WBC 8 H (0-5) /hpf Ur Squamous Epith Cells 2 (0-4) /hpf Hyaline Casts 15 H (0-2) /lpf Urine Mucus Rare H (None) /hpf [place] mmol/L 09/03/21 09/03/21 Range/Units 14:41 14:41 WBC (3.8-10.6) k/uL RBC (3.80-5.40) m/uL Hgb (11.4-16.0) gm/dL Hct (34.0-46.0) % MCV (80.0-100.0) fL MCH (25.0-35.0) pg MCHC (31.0-37.0) g/dL RDW (11.5-15.5) % Plt Count (150-450) k/uL MPV Neutrophils % % Lymphocytes % % Monocytes % % Eosinophils % % Basophils % % Neutrophils # (1.3-7.7) k/uL Lymphocytes # (1.0-4.8) k/uL Monocytes # (0-1.0) k/uL Eosinophils # (0-0.7) k/uL Basophils # (0-0.2) k/uL PT (9.0-12.0) sec INR (<1.2) Sodium 143 (137-145) mmol/L Potassium 3.3 L (3.5-5.1) mmol/L Chloride 105 (98-107) mmol/L Carbon Dioxide 34 H (22-30) mmol/L Anion Gap 4 mmol/L BUN 14 (7-17) mg/dL Creatinine 0.85 (0.52-1.04) mg/dL Est GFR (CKD-EPI)AfAm 84 (>60 ml/min/1.73 sqM) Est GFR (CKD-EPI)NonAf 72 (>60 ml/min/1.73 sqM) Glucose 121 H (74-99) mg/dL Calcium 8.4 (8.4-10.2) mg/dL Magnesium 1.7 (1.6-2.3) mg/dL Total Bilirubin 0.5 (0.2-1.3) mg/dL AST 23 (14-36) U/L ALT 22 (4-34) U/L Alkaline Phosphatase 80 (38-126) U/L Troponin I <0.012 (0.000-0.034) ng/mL Total Protein 5.6 L (6.3-8.2) g/dL Albumin 3.2 L (3.5-5.0) g/dL Urine Color Urine Appearance (Clear) Urine pH (5.0-8.0) Ur Specific [place] (1.001-1.035) Urine Protein (Negative) Urine Glucose (UA) (Negative) Urine Ketones (Negative) Urine Blood (Negative) Urine Nitrite (Negative) Urine Bilirubin (Negative) Urine Urobilinogen (<2.0) mg/dL Ur Leukocyte Esterase (Negative) Urine RBC (0-5) /hpf Urine WBC (0-5) /hpf Ur Squamous Epith Cells (0-4) /hpf Hyaline Casts (0-2) /lpf Urine Mucus (None) /hpf [place] 0.6 mmol/L Disposition Clinical Impression: Weakness Disposition: HOME SELF-CARE Condition: Good Instructions (If sedation given, give patient instructions): Weakness (ED) Is patient prescribed a controlled substance at d/c from ED?: No Referrals: Loki Gomes MD [Primary Care Provider] - 1-2 days Time of Disposition: 18:25
--- NOTE | 2021-09-03 16:01 | XR ---
EXAMINATION TYPE: XR chest 2V DATE OF EXAM: 09/03/2021 COMPARISON: 08/18/2021 TECHNIQUE: PA and lateral views submitted. HISTORY: Weakness FINDINGS: The heart is enlarged is atherosclerotic changes aorta. Coarsening of the interstitium is noted. No p leural effusion or pneumothorax. Postsurgical change overlying the cervical spine. Subsegmental valentin es involving the left lung most typical scar or atelectasis. Similar finding noted in left upper lobe . There is prominence the right hilum which is stable. May reflect underlying pulmonary arterial hype rtension. IMPRESSION: 1. Cardiomegaly with linear areas of scarring or discoid atelectasis favored over infiltrate. 2. Correlate for pulmonary arterial hypertension.
[2021-09-03 16:25] VITALS: RESP 14; TEMP 98.1
--- NOTE | 2021-09-03 17:11 | CT ---
EXAMINATION TYPE: CT brain wo con DATE OF EXAM: 09/03/2021 COMPARISON: 05/07/2021 HISTORY: Ataxia. CT DLP: 1094.4 mGycm Automated exposure control for dose reduction was used. There is mild cerebral atrophy. There is no mass effect or midline shift. There is no sign of intracr anial hemorrhage. Calvarium is intact. There is hyperostosis frontalis. Skull base is intact. IMPRESSION: Mild atrophy. No acute intracranial abnormality.
[2021-09-03 18:18] VITALS: BP 134/91; PULSE 80
== END 2021-09-03 20:00 | disposition home or self-care (01) ==
LOC: EC 14:10
DX: R53.1 Weakness (principal); I48.91 Unspecified atrial fibrillation; I25.10 Atherosclerotic heart disease of native coronary artery without angina pectoris; I11.0 Hypertensive heart disease with heart failure; I50.9 Heart failure, unspecified; J44.9 Chronic obstructive pulmonary disease, unspecified; E11.9 Type 2 diabetes mellitus without complications; K21.9 Gastro-esophageal reflux disease without esophagitis; E78.5 Hyperlipidemia, unspecified; F41.9 Anxiety disorder, unspecified; F32.A Depression, unspecified; Z79.84 Long term (current) use of oral hypoglycemic drugs; Z79.01 Long term (current) use of anticoagulants; Z88.5 Allergy status to narcotic agent; Z86.73 Personal history of transient ischemic attack (TIA), and cerebral infarction without residual deficits; Z87.440 Personal history of urinary (tract) infections; Z90.49 Acquired absence of other specified parts of digestive tract; Z90.710 Acquired absence of both cervix and uterus
CPT/HCPCS: 36415; 70450; 71046; 80053; 80178; 81001; 83735; 84484; 85025; 85610; 93005; 96360; 96361; 99285

== ENCOUNTER 2021-10-07 12:33 | Observation (INO) | payer MEDICARE, OTHER ==
[2021-10-07] MEDS ORDERED: methylPREDNISolone SOD SUCCI 125 MG/2 ML VIAL IV STA (12:46)
[2021-10-07] MEDS ORDERED: IPRATROPIUM-ALBUTEROL 3 ML NEB INHALATION STA (12:46)
--- NOTE | 2021-10-07 12:50 | ED ---
General Adult HPI - General Chief complaint: Upper Respiratory Infection Stated complaint: Cough Time Seen by Provider: 10/07/21 12:35 Source: patient, EMS, RN notes reviewed Mode of arrival: EMS Limitations: no limitations - History of Present Illness Initial comments: Patient is a pleasant 7 he 6-year-old female presenting to the emergency Department with cough and dyspnea. Onset of symptoms was a couple of days ago. Cough is dry nonproductive. Patient feels fatigued. No fevers. No leg pain or leg swelling. Symptoms are similar to previous COPD. - Related Data Home Medications Medication Instructions Recorded Confirmed Atorvastatin [Lipitor] 10 mg PO HS 12/30/16 09/03/21 Metoprolol Tartrate [Lopressor] 12.5 mg PO BID 02/25/17 09/03/21 Oxybutynin Xl [Ditropan XL] 5 mg PO BID 02/25/17 09/03/21 Gabapentin [Neurontin] 200 mg PO DAILY 05/19/19 09/03/21 metFORMIN HCL ER [Glucophage XR] 500 mg PO Q48H 05/19/19 09/03/21 Cyanocobalamin (Vitamin B-12) 1,000 mcg PO DAILY 04/24/20 09/03/21 [Vitamin B-12] LORazepam [Ativan] 1 mg PO DAILY PRN 04/24/20 09/03/21 Vit C/E/Zn/Coppr/Lutein/Zeaxan 1 cap PO DAILY 04/24/20 09/03/21 [Preservision Areds 2 Softgel] Apixaban [Eliquis] 5 mg PO BID 05/07/21 09/03/21 Digoxin [Lanoxin] 125 mcg PO DAILY 05/07/21 09/03/21 Isosorbide Mononitrate ER [Imdur] 60 mg PO DAILY 05/07/21 09/03/21 Ascorbic Acid [Vitamin C] 500 mg PO BID 08/18/21 09/03/21 Chlorhexidine Gluconate [Peridex] 15 ml PO BID 08/18/21 09/03/21 Cholecalciferol [Vitamin D3 (25 50 mcg PO DAILY 08/18/21 09/03/21 Mcg = 1000 Iu)] Deutetrabenazine [Austedo] 9 mg PO BID 08/18/21 09/03/21 Fluticasone Propionate [Flovent 1 puff INHALATION RT-BID PRN 08/18/21 09/03/21 Hfa 44 mcg] Furosemide [Lasix] 20 mg PO DAILY 08/18/21 09/03/21 Nitroglycerin Sl Tabs [Nitrostat] 0.4 mg SUBLINGUAL Q5M PRN 08/18/21 09/03/21 Tiotropium 2.5 Mcg/Puff [Spiriva 1 puff INHALATION RT-DAILY 08/18/21 09/03/21 Respimat 2.5 Mcg] Zinc Sulfate [Orazinc] 220 mg PO DAILY 08/18/21 09/03/21 cloZAPine [Clozaril] 250 mg PO HS 09/03/21 09/03/21 Previous Rx's Medication Instructions Recorded Citalopram Hydrobromide [CeleXA] 40 mg PO HS #0 08/20/21 [place] Carbonate 150 mg PO BID 30 Days #60 cap 08/20/21 Melatonin 10 mg PO HS 30 Days #60 tablet 08/20/21 Allergies Allergy/AdvReac Type Severity Reaction Status Date / Time lorazepam [From Ativan] Allergy Unknown Unknown Verified 09/03/21 15:03 bee venom protein (honey bee) Allergy Anaphylaxis Verified 09/03/21 15:03 hydrocodone [From [place]] AdvReac Confusion Verified 09/03/21 15:03 Review of Systems ROS Statement: Those systems with pertinent positive or pertinent negative responses have been documented in the HPI. ROS Other: All systems not noted in ROS Statement are negative. Constitutional: Denies: fever, chills Eyes: Denies: eye pain ENT: Denies: ear pain Respiratory: Reports: cough, dyspnea Cardiovascular: Denies: chest pain Endocrine: Reports: fatigue Gastrointestinal: Denies: abdominal pain Genitourinary: Denies: dysuria Musculoskeletal: Denies: back pain Skin: Denies: rash Neurological: Denies: headache Past Medical History Past Medical History: Atrial Fibrillation, Coronary Artery Disease (CAD), Cancer, Heart Failure, COPD, CVA/TIA, Diabetes Mellitus, Eye Disorder, GERD/Reflux, Hyperlipidemia, Hypertension Additional Past Medical History / Comment(s): NIDDM type II, neuropathy bilateral feet, bronchial asthma, home oxygen prn, obesity, occasional lower extremity edema, past L axillae cellulitis/abscess-lengthy heal, shingles/staph, R eye wet macular degeneration/ L eye dry macular degeneration, uterine cancer with hysterectomy, TIA, hiatal hernia, uterine cancer with hysterectomy, tardive dyskinesia r/t psych medication, migraines, sinus problems, paroxysmal atrial fibrillation, past urinary retention w/ past chronic mackenzie, UTIs. History of Any Multi-Drug Resistant Organisms: None Reported Past Surgical History: Adenoidectomy, Cholecystectomy, Ear Surgery, Heart Catheterization, Hysterectomy, Tonsillectomy Additional Past Surgical History / Comment(s): I & D L axillae, L eye surgery for lazy eye, bilateral cataract removal, bilateral myringotomy/tubes, colonoscopy, bronchoscopy, cervical surgery Past Anesthesia/Blood Transfusion Reactions: No Reported Reaction Past Psychological History: Anxiety, Depression, Schizoaffective Disorder Smoking Status: Never smoker Past Alcohol Use History: None Reported Past Drug Use History: None Reported - Past Family History Mother Family Medical History: Myocardial Infarction ([place]) Additional Family Medical History / Comment(s): Mother at 72 yrs. Father Family Medical History: Cancer Additional Family Medical History / Comment(s): Throat cancer; father at 72 yrs. Brother(s) Family Medical History: Cancer Additional Family Medical History / Comment(s): Liver cancer General Exam Limitations: no limitations General appearance: alert, in no apparent distress Head exam: Present: normocephalic Eye exam: Present: normal appearance Neck exam: Present: normal inspection Respiratory exam: Present: wheezes Cardiovascular Exam: Present: regular rate, normal rhythm GI/Abdominal exam: Present: soft. Absent: tenderness Extremities exam: Present: normal inspection. Absent: pedal edema, calf tenderness Neurological exam: Present: alert Psychiatric exam: Present: normal affect, normal mood Skin exam: Present: normal color Course Vital Signs 10/07/21 10/07/21 10/07/21 12:49 14:16 14:23 Temperature 99.2 F Pulse Rate 89 80 80 Respiratory 20 18 18 Rate Blood Pressure 106/52 O2 Sat by Pulse 93 L Oximetry EKG Findings - EKG Comments: EKG Findings:: Sinus rhythm with rate of 89. Additional P waves related to possible atrial fibrillation or artifact. MO 140. QRS 78. QT 358. QTC 45. Normal axis. Low QRS voltage. Nonspecific ST-T. Medical Decision Making - Medical Decision Making Patient reevaluated without significant improvement. [facility] has been paged for admission covering for hospital observation call. - Lab Data Result diagrams: 10/07/21 13:59 10/07/21 13:59 Lab Results 10/07/21 10/07/21 10/07/21 Range/Units 13:59 13:59 13:59 WBC 12.0 H (3.8-10.6) k/uL RBC 3.99 (3.80-5.40) m/uL Hgb 11.9 (11.4-16.0) gm/dL Hct 38.0 (34.0-46.0) % MCV 95.2 (80.0-100.0) fL MCH 29.9 (25.0-35.0) pg MCHC 31.4 (31.0-37.0) g/dL RDW 13.2 (11.5-15.5) % Plt Count 199 (150-450) k/uL MPV 7.8 Neutrophils % 87 % Lymphocytes % 7 % Monocytes % 4 % Eosinophils % 1 % Basophils % 0 % Neutrophils # 10.5 H (1.3-7.7) k/uL Lymphocytes # 0.9 L (1.0-4.8) k/uL Monocytes # 0.5 (0-1.0) k/uL Eosinophils # 0.1 (0-0.7) k/uL Basophils # 0.0 (0-0.2) k/uL PT 11.1 (9.0-12.0) sec INR 1.0 (<1.2) APTT 26.6 (22.0-30.0) sec Sodium 137 (137-145) mmol/L Potassium 3.5 (3.5-5.1) mmol/L Chloride 105 (98-107) mmol/L Carbon Dioxide 28 (22-30) mmol/L Anion Gap 4 mmol/L BUN 10 (7-17) mg/dL Creatinine 0.70 (0.52-1.04) mg/dL Est GFR (CKD-EPI)AfAm >90 (>60 ml/min/1.73 sqM) Est GFR (CKD-EPI)NonAf >90 (>60 ml/min/1.73 sqM) Glucose 115 H (74-99) mg/dL Plasma Lactic Acid [place] (0.7-2.0) mmol/L Calcium 8.0 L (8.4-10.2) mg/dL Total Bilirubin 0.5 (0.2-1.3) mg/dL AST 30 (14-36) U/L ALT 20 (4-34) U/L Alkaline Phosphatase 91 (38-126) U/L Troponin I (0.000-0.034) ng/mL NT-Pro-B Natriuret Pep pg/mL Total Protein 5.2 L (6.3-8.2) g/dL Albumin 3.1 L (3.5-5.0) g/dL Coronavirus (PCR) (Not Detectd) Influenza Type A RNA (Not Detectd) Influenza Type B (PCR) (Not Detectd) 10/07/21 10/07/21 10/07/21 Range/Units 13:59 13:59 13:59 WBC (3.8-10.6) k/uL RBC (3.80-5.40) m/uL Hgb (11.4-16.0) gm/dL Hct (34.0-46.0) % MCV (80.0-100.0) fL MCH (25.0-35.0) pg MCHC (31.0-37.0) g/dL RDW (11.5-15.5) % Plt Count (150-450) k/uL MPV Neutrophils % % Lymphocytes % % Monocytes % % Eosinophils % % Basophils % % Neutrophils # (1.3-7.7) k/uL Lymphocytes # (1.0-4.8) k/uL Monocytes # (0-1.0) k/uL Eosinophils # (0-0.7) k/uL Basophils # (0-0.2) k/uL PT (9.0-12.0) sec INR (<1.2) APTT (22.0-30.0) sec Sodium (137-145) mmol/L Potassium (3.5-5.1) mmol/L Chloride (98-107) mmol/L Carbon Dioxide (22-30) mmol/L Anion Gap mmol/L BUN (7-17) mg/dL Creatinine (0.52-1.04) mg/dL Est GFR (CKD-EPI)AfAm (>60 ml/min/1.73 sqM) Est GFR (CKD-EPI)NonAf (>60 ml/min/1.73 sqM) Glucose (74-99) mg/dL Plasma Lactic Acid Britton 1.9 (0.7-2.0) mmol/L Calcium (8.4-10.2) mg/dL Total Bilirubin (0.2-1.3) mg/dL AST (14-36) U/L ALT (4-34) U/L Alkaline Phosphatase (38-126) U/L Troponin I <0.012 (0.000-0.034) ng/mL NT-Pro-B Natriuret Pep 1440 pg/mL Total Protein (6.3-8.2) g/dL Albumin (3.5-5.0) g/dL Coronavirus (PCR) (Not Detectd) Influenza Type A RNA (Not Detectd) Influenza Type B (PCR) (Not Detectd) 10/07/21 10/07/21 Range/Units 13:59 13:59 WBC (3.8-10.6) k/uL RBC (3.80-5.40) m/uL Hgb (11.4-16.0) gm/dL Hct (34.0-46.0) % MCV (80.0-100.0) fL MCH (25.0-35.0) pg MCHC (31.0-37.0) g/dL RDW (11.5-15.5) % Plt Count (150-450) k/uL MPV Neutrophils % % Lymphocytes % % Monocytes % % Eosinophils % % Basophils % % Neutrophils # (1.3-7.7) k/uL Lymphocytes # (1.0-4.8) k/uL Monocytes # (0-1.0) k/uL Eosinophils # (0-0.7) k/uL Basophils # (0-0.2) k/uL PT (9.0-12.0) sec INR (<1.2) APTT (22.0-30.0) sec Sodium (137-145) mmol/L Potassium (3.5-5.1) mmol/L Chloride (98-107) mmol/L Carbon Dioxide (22-30) mmol/L Anion Gap mmol/L BUN (7-17) mg/dL Creatinine (0.52-1.04) mg/dL Est GFR (CKD-EPI)AfAm (>60 ml/min/1.73 sqM) Est GFR (CKD-EPI)NonAf (>60 ml/min/1.73 sqM) Glucose (74-99) mg/dL Plasma Lactic Acid [place] (0.7-2.0) mmol/L Calcium (8.4-10.2) mg/dL Total Bilirubin (0.2-1.3) mg/dL AST (14-36) U/L ALT (4-34) U/L Alkaline Phosphatase (38-126) U/L Troponin I (0.000-0.034) ng/mL NT-Pro-B Natriuret Pep pg/mL Total Protein (6.3-8.2) g/dL Albumin (3.5-5.0) g/dL Coronavirus (PCR) Not Detected (Not Detectd) Influenza Type A RNA Not Detected (Not Detectd) Influenza Type B (PCR) Not Detected (Not Detectd) - Radiology Data Radiology results: image reviewed (Chest x-ray shows no acute process. COPD.) Disposition Clinical Impression: COPD with acute exacerbation Disposition: ADMITTED IP TO THIS HOSP Is patient prescribed a controlled substance at d/c from ED?: No Referrals: Loki Gomes MD [Primary Care Provider] - 1-2 days Time of Disposition: 15:28
[2021-10-07 14:14] LABS: Basophils % (A) 0 %; Eosinophils # (A) 0.1 k/uL (0-0.7); Eosinophils % (A) 1 %; HGB 11.9 gm/dL (11.4-16.0); Lymphocytes # (A) 0.9 k/uL (1.0-4.8); Lymphocytes % (A) 7 %; MCH 29.9 pg (25.0-35.0); MCHC 31.4 g/dL (31.0-37.0); MCV 95.2 fL (80.0-100.0); Mean Platelet Volume 7.8; Monocytes # (A) 0.5 k/uL (0-1.0); Monocytes % (A) 4 %; Neutrophils # (A) 10.5 k/uL (1.3-7.7); Neutrophils % (A) 87 %; Platelet Count 199 k/uL (150-450); RBC 3.99 m/uL (3.80-5.40); RDW 13.2 % (11.5-15.5)
[2021-10-07 14:24] LABS: Partial Thromboplastin Time 26.6 sec (22.0-30.0); Prothrombin Time 11.1 sec (9.0-12.0)
[2021-10-07 14:27] LABS: ALT 20 U/L (4-34); AST 30 U/L (14-36); African American GFR (CKD) >90 (>60 ml/min/1.73 sqM); Albumin 3.1 g/dL (3.5-5.0); Alkaline Phosphatase 91 U/L (38-126); Anion Gap 4 mmol/L; Blood Urea Nitrogen 10 mg/dL (7-17); Carbon Dioxide 28 mmol/L (22-30); Chloride 105 mmol/L (98-107); Glucose 115 mg/dL (74-99); Non-African American GFR(CKD) >90 (>60 ml/min/1.73 sqM); Potassium 3.5 mmol/L (3.5-5.1); Sodium 137 mmol/L (137-145); Total Bilirubin 0.5 mg/dL (0.2-1.3); Total Protein 5.2 g/dL (6.3-8.2)
--- NOTE | 2021-10-07 14:50 | XR ---
EXAMINATION TYPE: XR chest 2V DATE OF EXAM: 10/07/2021 COMPARISON: 09/03/2021 TECHNIQUE: PA and lateral views submitted. HISTORY: Difficulty breathing FINDINGS: The lungs are clear and there is no pneumothorax, pleural effusion, or focal pneumonia. Postsurgical change overlying the cervical spine. Heart size normal. Arthropathy of the AC joints. Hypertrophic a nd degenerative change spine. Mild hyperinflation correlate for COPD. Surgical clips in the abdomen. IMPRESSION: 1. No definite acute process correlate for COPD.
[2021-10-07] MEDS ORDERED: IPRATROPIUM-ALBUTEROL 3 ML NEB INHALATION PRN (15:47)
[2021-10-07 15:51] LABS: Appearance,Urine Clear (Clear); Bilirubin,Urine Negative (Negative); Blood,Urine Negative (Negative); Color,Urine Yellow; Glucose,Urine (UA) Negative (Negative); Ketones,Urine Negative (Negative); Leukocyte Esterase,Urine Negative (Negative); Nitrite,Urine Negative (Negative); Protein,Urine Trace (Negative); Specific Gravity,Urine 1.015 (1.001-1.035); Urobilinogen,Urine <2.0 mg/dL (<2.0)
[2021-10-07] MEDS: IPRATROPIUM-ALBUTEROL 3 ML NEB INHALATION SCH ×2 (16:22→20:07)
[2021-10-07] MEDS ORDERED: polyethylene glycoL 3350 17 GM POWD.PACK PO PRN (17:44)
[2021-10-07] MEDS ORDERED: NITROGLYCERIN SL TABS 0.4 MG TAB SUBLINGUAL PRN (17:44)
[2021-10-07] MEDS ORDERED: methylPREDNISolone SOD SUCCI 125 MG/2 ML VIAL IV SCH (18:00)
[2021-10-07] MEDS ORDERED: LACTULOSE 20 GM/30 ML CUP PO PRN (20:12)
[2021-10-07] MEDS ORDERED: CALCIUM CARBONATE 500 MG CHEWABLE PO PRN (20:12)
[2021-10-07] MEDS ORDERED: ONDANSETRON 4 MG/2 ML VIAL IVP PRN (20:12)
[2021-10-07] MEDS ORDERED: NALOXONE 0.4 MG/ML 1 ML VIAL IV PRN (20:12)
--- NOTE | 2021-10-07 20:15 | P.HPIM ---
History of Present Illness H&P Date: 10/07/21 Chief Complaint: Short of breath This is a pleasant 66-year-old patient of visiting physician Dr. Gomes. Resident of [facility] . Does use a walker . Chronic stable medical conditions include asthma diabetes mellitus type 2, hypertension, hyperlipidemia, hiatal hernia, peripheral neuropathy, schizoaffective disorder, GERD. Patient now presents with progressive shortness of breath. Cough. No sputum. No fever or chills. Appetite is okay. Tired rundown. Being admitted for acute asthma exacerbation. Review of systems: GEN.: Tired EYES: None HEENT: None NECK: None RESPIRATORY: As above CARDIOVASCULAR: None GASTROINTESTINAL: None GENITOURINARY: None MUSCULOSKELETAL: Joint pains LYMPHATICS: None HEMATOLOGICAL: None PSYCHIATRY: None NEUROLOGICAL: Use a walker Past medical history to include: COVID-19 positive diagnosed on 04/03/2021. Persistent bronchial asthma, diabetes mellitus type 2, hypertension, hyperlipidemia, obesity, hiatal hernia, idiopathic peripheral neuropathy, GERD, schizoaffective disorder bipolar type, atrial fibrillation, macular degeneration, uterine cancer with hysterectomy, tardive dyskinesia, use a walker Social history: Lives at the [facility], does use a walker. Stopped drinking alcohol in 2006. Never smoked. Physical examination: VITAL SIGNS: 98.7, 20, 99, 107/55, 91% on 2 L GENERAL: BMI 26.6, laying in bed, awake short of breath. EYES: Pupils equal. Conjunctiva normal. HEENT: External appearance of nose and ears normal, oral cavity grossly normal. NECK: JVD not raised; masses not palpable. HEART: First and second heart sounds are normal; no edema. LUNGS: Respiratory rate increased diminished breath sound, prolonged expiration and some crackles. ABDOMEN: Soft, nontender, liver spleen not palpable, no masses palpable. PSYCH: Alert and oriented x3; mood and affect anxiousl. MUSCULOSKELETAL:No Clubbing/cyanosis;muscles-grossly intact NEUROLOGICAL: Cranial nerves grossly intact; no facial asymmetry, power and sensation grossly intact. LYMPHATICS: No lymph nodes palpable in the axilla and neck INVESTIGATIONS, reviewed in the clinical context: White count 12 hemoglobin 11.9 platelets 199 potassium 3.5 creatinine 0.7 UA: Unremarkable COVID-19/influenza type A/influenza type B: Not detected EKG tracing personally reviewed by me-normal sinus rhythm. 89/m. Nonspecific ST T wave depression. Chest x-ray film personally reviewed by me-some scattered infiltrates Assessment and plan: --Acute exacerbation of Moderate persistent asthma, DuoNeb 4 times a day, IV Solu-Medrol. Inhaled steroids. -Acute medical debility due to asthma exacerbation Fall precautions -Diabetes mellitus type 2, on oral hypoglycemic. metformin . Follow Accu-Cheks -Essential Hypertension Lopressor 12.5 by mouth twice a day -Hyperlipidemia Lipitor 10 mg daily at bedtime -Diabetic peripheral neuropathy Neurontin 200 mg daily -GERD Tums when necessary -Paroxysmal atrial fibrillation currently sinus rhythm Lopressor 12.5 by mouth twice a day. Eliquis 5 mg twice a day -Schizoaffective disorder Clozaril 300 mg daily at bedtime Celexa 40 mg daily -Chronic urinary stress incontinence Ditropan XL 5 mg twice a day -Tardive dyskinesia due to medications -Chronic gait dysfunction, uses a walker at baseline Fall precautions -Full code DuoNeb. IV steroids. No breast Pulmicort. Resume home medications. Discussed with the patient. Follow Accu-Cheks. Past Medical History Past Medical History: Atrial Fibrillation, Coronary Artery Disease (CAD), Cancer, Heart Failure, COPD, CVA/TIA, Diabetes Mellitus, Eye Disorder, GERD/Reflux, Hyperlipidemia, Hypertension Additional Past Medical History / Comment(s): NIDDM type II, neuropathy bilateral feet, bronchial asthma, home oxygen prn, obesity, occasional lower extremity edema, past L axillae cellulitis/abscess-lengthy heal, shingles/staph, R eye wet macular degeneration/ L eye dry macular degeneration, uterine cancer with hysterectomy, TIA, hiatal hernia, uterine cancer with hysterectomy, tardive dyskinesia r/t psych medication, migraines, sinus problems, paroxysmal atrial fibrillation, past urinary retention w/ past chronic mackenzie, UTIs. History of Any Multi-Drug Resistant Organisms: None Reported Past Surgical History: Adenoidectomy, Cholecystectomy, Ear Surgery, Heart Catheterization, Hysterectomy, Tonsillectomy Additional Past Surgical History / Comment(s): I & D L axillae, L eye surgery for lazy eye, bilateral cataract removal, bilateral myringotomy/tubes, colonoscopy, bronchoscopy, cervical surgery Past Anesthesia/Blood Transfusion Reactions: No Reported Reaction Past Psychological History: Anxiety, Depression, Schizoaffective Disorder Smoking Status: Never smoker Past Alcohol Use History: None Reported Past Drug Use History: None Reported - Past Family History Mother Family Medical History: Myocardial Infarction ([place]) Additional Family Medical History / Comment(s): Mother at 72 yrs. Father Family Medical History: Cancer Additional Family Medical History / Comment(s): Throat cancer; father at 72 yrs. Brother(s) Family Medical History: Cancer Additional Family Medical History / Comment(s): Liver cancer Medications and Allergies Home Medications Medication Instructions Recorded Confirmed Type Atorvastatin [Lipitor] 10 mg PO HS 12/30/16 10/07/21 History Metoprolol Tartrate [Lopressor] 12.5 mg PO BID 02/25/17 10/07/21 History Oxybutynin Xl [Ditropan XL] 5 mg PO BID 02/25/17 10/07/21 History Gabapentin [Neurontin] 200 mg PO DAILY 05/19/19 10/07/21 History metFORMIN HCL ER [Glucophage XR] 500 mg PO Q48H 05/19/19 10/07/21 History Cyanocobalamin (Vitamin B-12) 1,000 mcg PO DAILY 04/24/20 10/07/21 History [Vitamin B-12] Vit C/E/Zn/Coppr/Lutein/Zeaxan 1 cap PO BID 04/24/20 10/07/21 History [Preservision Areds 2 Softgel] Apixaban [Eliquis] 5 mg PO BID 05/07/21 10/07/21 History Digoxin [Lanoxin] 125 mcg PO DAILY 05/07/21 10/07/21 History Isosorbide Mononitrate ER [Imdur] 60 mg PO DAILY 05/07/21 10/07/21 History Ascorbic Acid [Vitamin C] 500 mg PO DAILY 08/18/21 10/07/21 History Chlorhexidine Gluconate [Peridex] 15 ml PO BID 08/18/21 10/07/21 History Cholecalciferol [Vitamin D3 (25 50 mcg PO DAILY 08/18/21 10/07/21 History Mcg = 1000 Iu)] Deutetrabenazine [Austedo] 9 mg PO BID 08/18/21 10/07/21 History Fluticasone Propionate [Flovent 1 puff INHALATION RT-BID PRN 08/18/21 10/07/21 History Hfa 44 mcg] Furosemide [Lasix] 20 mg PO DAILY 08/18/21 10/07/21 History Nitroglycerin Sl Tabs [Nitrostat] 0.4 mg SUBLINGUAL Q5M PRN 08/18/21 10/07/21 History Tiotropium 2.5 Mcg/Puff [Spiriva 2 puff INHALATION RT-DAILY 08/18/21 10/07/21 History Respimat 2.5 Mcg] [place] Carbonate 150 mg PO BID 30 Days #60 cap 08/20/21 10/07/21 Rx cloZAPine [Clozaril] 250 mg PO HS 09/03/21 10/07/21 History Albuterol Sulfate [Ventolin HFA] 2 puff INHALATION RT-Q4H PRN 10/07/21 10/07/21 History Citalopram Hydrobromide [CeleXA] 40 mg PO DAILY 10/07/21 10/07/21 History Ipratropium/Albuterol Sulfate 1 puff INHALATION RT-TID 10/07/21 10/07/21 History [Combivent Respimat Inhaler] polyethylene glycoL 3350 [Miralax] 17 gm PO DAILY PRN 10/07/21 10/07/21 History Allergies Allergy/AdvReac Type Severity Reaction Status Date / Time bee venom protein (honey bee) Allergy Anaphylaxis Verified 10/07/21 16:18 hydrocodone [From [place]] AdvReac Confusion Verified 10/07/21 16:18 Physical Exam Vitals: Vital Signs Temp Pulse Resp BP Pulse Ox 10/07/21 18:48 98.7 F 99 20 107/55 92 L 10/07/21 18:07 98.6 F 89 20 105/55 91 L 10/07/21 14:23 80 18 10/07/21 14:16 80 18 10/07/21 12:49 99.2 F 89 20 106/52 93 L Intake and Output 10/07/21 10/07/21 10/07/21 06:59 14:59 22:59 Other: Weight 72.575 kg Results CBC & Chem 7: 10/07/21 13:59 10/07/21 13:59 Labs: Abnormal Lab Results - Last 24 Hours (Table) 10/07/21 10/07/21 10/07/21 Range/Units 13:53 13:59 13:59 WBC 12.0 H (3.8-10.6) k/uL Neutrophils # 10.5 H (1.3-7.7) k/uL Lymphocytes # 0.9 L (1.0-4.8) k/uL Glucose 115 H (74-99) mg/dL Calcium 8.0 L (8.4-10.2) mg/dL Total Protein 5.2 L (6.3-8.2) g/dL Albumin 3.1 L (3.5-5.0) g/dL Urine Protein Trace H (Negative)
[2021-10-07] MEDS: DEUTETRABENAZINE PO SCH (20:37)
[2021-10-07] MEDS: METOPROLOL TARTRATE 12.5 MG TAB PO SCH (21:26)
[2021-10-07] MEDS: LITHIUM CARBONATE 150 MG CAP PO SCH (21:26)
[2021-10-07] MEDS: cloZAPine 100 MG TAB PO SCH (21:26)
[2021-10-07] MEDS: CHLORHEXIDINE GLUCONATE 15 ML CUP MUCOUS MEM SCH (21:26)
[2021-10-07] MEDS: OXYBUTYNIN XL 5 MG TAB.ER.24 PO SCH (21:27)
[2021-10-07] MEDS: ATORVASTATIN 10 MG TAB PO SCH (21:27)
[2021-10-07] MEDS: APIXABAN 5 MG TAB PO SCH (21:27)
[2021-10-07] MEDS: methylPREDNISolone SOD SUCCI 40 MG/ML 1 ML VIAL IV SCH (23:40)
[2021-10-08] MEDS: ACETAMINOPHEN TAB 325 MG TAB PO PRN (00:24)
[2021-10-08 07:29] LABS: Glucose,Whole Blood 194 mg/dL (75-99)
[2021-10-08] MEDS: INSULIN ASPART (NovoLOG) 100 UNIT/ML VIAL SQ SCH ×3 (07:40→17:25)
[2021-10-08] MEDS: metFORMIN 500 MG TAB PO SCH (07:40)
[2021-10-08] MEDS: LORazepam 0.5 MG TAB PO PRN (07:40)
[2021-10-08] MEDS: BUDESONIDE 1 MG/2 ML NEBU INHALATION SCH ×2 (08:16→21:15)
[2021-10-08] MEDS: IPRATROPIUM-ALBUTEROL 3 ML NEB INHALATION SCH ×4 (08:16→21:14)
[2021-10-08] MEDS: DEUTETRABENAZINE PO SCH ×2 (09:02→20:36)
[2021-10-08] MEDS: CYANOCOBALAMIN 500 MCG TAB PO SCH (09:35)
[2021-10-08] MEDS: CHOLECALCIFEROL 25 MCG (1000 IU) TABLET PO SCH (09:35)
[2021-10-08] MEDS: ASCORBIC ACID 500 MG TAB PO SCH (09:35)
[2021-10-08] MEDS: CHLORHEXIDINE GLUCONATE 15 ML CUP MUCOUS MEM SCH ×2 (09:35→20:35)
[2021-10-08] MEDS: CITALOPRAM HYDROBROMIDE 20 MG TAB PO SCH (09:35)
[2021-10-08] MEDS: APIXABAN 5 MG TAB PO SCH ×2 (09:35→20:35)
[2021-10-08] MEDS: methylPREDNISolone SOD SUCCI 40 MG/ML 1 ML VIAL IV SCH ×2 (09:35→17:25)
[2021-10-08] MEDS: VIT A,C & E-LUTEIN-MINERALS 1 EACH TAB PO SCH (09:36)
[2021-10-08] MEDS: METOPROLOL TARTRATE 12.5 MG TAB PO SCH ×2 (09:36→20:35)
[2021-10-08] MEDS: ISOSORBIDE MONONITRATE ER 60 MG TAB.ER.24H PO SCH (09:36)
[2021-10-08] MEDS: LITHIUM CARBONATE 150 MG CAP PO SCH ×2 (09:36→20:34)
[2021-10-08] MEDS: GABAPENTIN 100 MG CAP PO SCH (09:36)
[2021-10-08] MEDS: OXYBUTYNIN XL 5 MG TAB.ER.24 PO SCH ×2 (09:36→20:34)
[2021-10-08] MEDS: DIGOXIN 125 MCG TAB PO SCH (09:36)
[2021-10-08 11:55] LABS: Glucose,Whole Blood 137 mg/dL (75-99)
[2021-10-08 17:23] LABS: Glucose,Whole Blood 173 mg/dL (75-99)
--- NOTE | 2021-10-08 18:28 | P.PN ---
Progress Note - Text Progress Note Date: 10/08/21 Chief Complaint: Short of breath This is a pleasant 66-year-old patient of visiting physician Dr. Gomes. Resident of [facility] . Does use a walker . Chronic stable medical conditions include asthma diabetes mellitus type 2, hypertension, hyperlipidemia, hiatal hernia, peripheral neuropathy, schizoaffective disorder, GERD. Patient now presents with progressive shortness of breath. Cough. No sputum. No fever or chills. Appetite is okay. Tired rundown. Being admitted for acute asthma exacerbation. October 08: Up in a chair. Short of breath wheezing. Oral intake better. Tired. Active Medications Acetaminophen (Acetaminophen Tab 325 Mg Tab) 650 mg PO Q6HR PRN PRN Reason: Mild Pain or Fever > 100.5 Last Admin: 10/08/21 00:24 Dose: 650 mg Documented by: Albuterol/Ipratropium (Ipratropium-Albuterol 3 Ml Neb) 3 ml INHALATION RT-QID [facility] Last Admin: 10/08/21 15:07 Dose: 3 ml Documented by: Albuterol/Ipratropium (Ipratropium-Albuterol 3 Ml Neb) 3 ml INHALATION RT-Q4H PRN PRN Reason: Shortness Of Breath Or Wheezing Apixaban (Apixaban 5 Mg Tab) 5 mg PO BID [facility]; Protocol Last Admin: 10/08/21 09:35 Dose: 5 mg Documented by: Ascorbic Acid (Ascorbic Acid 500 Mg Tab) 500 mg PO DAILY [facility] Last Admin: 10/08/21 09:35 Dose: 500 mg Documented by: Atorvastatin Calcium (Atorvastatin 10 Mg Tab) 10 mg PO HS [facility] Last Admin: 10/07/21 21:27 Dose: 10 mg Documented by: Budesonide (Budesonide 1 Mg/2 Ml Nebu) 1 mg INHALATION RT-BID [facility] Last Admin: 10/08/21 08:16 Dose: 1 mg Documented by: Calcium Carbonate/Glycine (Calcium Carbonate 500 Mg Chewable) 1,000 mg PO Q4HR PRN PRN Reason: Dyspepsia Chlorhexidine Gluconate (Chlorhexidine Gluconate 15 Ml Cup) 15 ml MUCOUS MEM BID [facility] Last Admin: 10/08/21 09:35 Dose: 15 ml Documented by: Cholecalciferol (Cholecalciferol 25 Mcg (1000 Iu) Tablet) 50 mcg PO DAILY [facility] Last Admin: 10/08/21 09:35 Dose: 50 mcg Documented by: Citalopram Hydrobromide (Citalopram Hydrobromide 20 Mg Tab) 40 mg PO DAILY [facility] Last Admin: 10/08/21 09:35 Dose: 40 mg Documented by: Clozapine (Clozapine 100 Mg Tab) 250 mg PO [facility] Stop: 10/15/21 23:00 Last Admin: 10/07/21 21:26 Dose: 250 mg Documented by: Cyanocobalamin (Cyanocobalamin 500 Mcg Tab) 1,000 mcg PO DAILY [facility] Last Admin: 10/08/21 09:35 Dose: 1,000 mcg Documented by: Digoxin (Digoxin 125 Mcg Tab) 125 mcg PO DAILY [facility] Last Admin: 10/08/21 09:36 Dose: 125 mcg Documented by: Gabapentin (Gabapentin 100 Mg Cap) 200 mg PO DAILY [facility] Last Admin: 10/08/21 09:36 Dose: 200 mg Documented by: Insulin Aspart (Insulin Aspart (Novolog) 100 Unit/Ml Vial) 0 unit SQ AC-TID [facility]; Protocol Last Admin: 10/08/21 17:25 Dose: 4 unit Documented by: Isosorbide Mononitrate (Isosorbide Mononitrate Er 60 Mg Tab.Er.24h) 60 mg PO DAILY [facility] Last Admin: 10/08/21 09:36 Dose: 60 mg Documented by: Lactulose (Lactulose 20 Gm/30 Ml Cup) 20 gm PO DAILY PRN PRN Reason: Constipation [place] Carbonate ([place] Carbonate 150 Mg Cap) 150 mg PO BID [facility] Last Admin: 10/08/21 09:36 Dose: 150 mg Documented by: Lorazepam (Lorazepam 0.5 Mg Tab) 0.5 mg PO Q6HR PRN PRN Reason: Anxiety Last Admin: 10/08/21 07:40 Dose: 0.5 mg Documented by: Metformin HCl (Metformin 500 Mg Tab) 500 mg PO AC-BRKFST [facility] Last Admin: 10/08/21 07:40 Dose: 500 mg Documented by: Methylprednisolone Sodium Succinate (Methylprednisolone Sod Succi 40 Mg/Ml 1 Ml Vial) 40 mg IV Q8HR [facility] Last Admin: 10/08/21 17:25 Dose: 40 mg Documented by: Metoprolol Tartrate (Metoprolol Tartrate 12.5 Mg Tab) 12.5 mg PO BID [facility] Last Admin: 10/08/21 09:36 Dose: 12.5 mg Documented by: Multivitamins/Minerals (Vit A,C & B-Pttrwd-Zkhsghvw 1 Each Tab) 1 each PO DAILY [facility] Last Admin: 10/08/21 09:36 Dose: 1 each Documented by: Naloxone HCl (Naloxone 0.4 Mg/Ml 1 Ml Vial) 0.2 mg IV Q2M PRN PRN Reason: Opioid Reversal Nitroglycerin (Nitroglycerin Sl Tabs 0.4 Mg Tab) 0.4 mg SUBLINGUAL Q5M PRN PRN Reason: Chest Pain Deutetrabenazine [ (Austedo]) 9 mg PO BID [facility] Last Admin: 10/08/21 09:02 Dose: Not Given Documented by: Ondansetron HCl (Ondansetron 4 Mg/2 Ml Vial) 4 mg IVP Q8HR PRN PRN Reason: Nausea And Vomiting Oxybutynin Chloride (Oxybutynin Xl 5 Mg Tab.Er.24) 5 mg PO BID [facility] Last Admin: 10/08/21 09:36 Dose: 5 mg Documented by: Polyethylene Glycol (Polyethylene Glycol 3350 17 Gm Powd.Pack) 17 gm PO DAILY PRN PRN Reason: hold for loose stool Past medical history to include: COVID-19 positive diagnosed on 04/03/2021. Persistent bronchial asthma, diabetes mellitus type 2, hypertension, hyperlipidemia, obesity, hiatal hernia, idiopathic peripheral neuropathy, GERD, schizoaffective disorder bipolar type, atrial fibrillation, macular degeneration, uterine cancer with hysterectomy, tardive dyskinesia, use a walker Social history: Lives at the [facility], does use a walker. Stopped drinking alcohol in 2006. Never smoked. Physical examination: VITAL SIGNS: 97.3, 90, 20, 1 26 x 64, 92% room air GENERAL: A recliner, short of breath EYES: Pupils equal. Conjunctiva normal. HEENT: External appearance of nose and ears normal, oral cavity grossly normal. NECK: JVD not raised; masses not palpable. HEART: First and second heart sounds are normal; no edema. LUNGS: Respiratory rate increased diminished breath sound, prolonged expiration, wheezing. ABDOMEN: Soft, nontender, liver spleen not palpable, no masses palpable. PSYCH: Alert and oriented x3; mood and affect anxiousl. INVESTIGATIONS, reviewed in the clinical context: White count 12 hemoglobin 11.9 platelets 199 potassium 3.5 creatinine 0.7 UA: Unremarkable COVID-19/influenza type A/influenza type B: Not detected EKG tracing personally reviewed by me-normal sinus rhythm. 89/m. Nonspecific ST T wave depression. Chest x-ray film personally reviewed by me-some scattered infiltrates Assessment and plan: --Acute exacerbation of Moderate persistent asthma, colon slow to respond DuoNeb 4 times a day, IV Solu-Medrol. Inhaled steroids. add Perforomist -Acute medical debility due to asthma exacerbation Fall precautions -Diabetes mellitus type 2, on oral hypoglycemic. metformin . Follow Accu-Cheks -Essential Hypertension Lopressor 12.5 by mouth twice a day -Hyperlipidemia Lipitor 10 mg daily at bedtime -Diabetic peripheral neuropathy Neurontin 200 mg daily -GERD Tums when necessary -Paroxysmal atrial fibrillation currently sinus rhythm Lopressor 12.5 by mouth twice a day. Eliquis 5 mg twice a day -Schizoaffective disorder Clozaril 300 mg daily at bedtime Celexa 40 mg daily -Chronic urinary stress incontinence Ditropan XL 5 mg twice a day -Tardive dyskinesia due to medications -Chronic gait dysfunction, uses a walker at baseline Fall precautions -Full code DuoNeb. IV steroids. Nebulized Pulmicort. Discussed with the patient. Follow Accu-Cheks. Add Perforomist
[2021-10-08] MEDS: ATORVASTATIN 10 MG TAB PO SCH (20:35)
[2021-10-08] MEDS: cloZAPine 100 MG TAB PO SCH (20:35)
[2021-10-08 20:51] LABS: Glucose,Whole Blood 256 mg/dL (75-99)
[2021-10-08] MEDS: FORMOTEROL FUMARATE 20 MCG/2 ML NEBU INHALATION SCH (21:14)
[2021-10-09] MEDS: methylPREDNISolone SOD SUCCI 40 MG/ML 1 ML VIAL IV SCH ×3 (01:31→20:16)
[2021-10-09 07:52] LABS: Glucose,Whole Blood 184 mg/dL (75-99)
[2021-10-09] MEDS: BUDESONIDE 1 MG/2 ML NEBU INHALATION SCH ×2 (08:12→19:48)
[2021-10-09] MEDS: FORMOTEROL FUMARATE 20 MCG/2 ML NEBU INHALATION SCH ×2 (08:12→19:47)
[2021-10-09] MEDS: IPRATROPIUM-ALBUTEROL 3 ML NEB INHALATION SCH ×4 (08:12→19:47)
[2021-10-09] MEDS: INSULIN ASPART (NovoLOG) 100 UNIT/ML VIAL SQ SCH ×3 (08:45→17:57)
[2021-10-09] MEDS: metFORMIN 500 MG TAB PO SCH (08:46)
[2021-10-09] MEDS: GABAPENTIN 100 MG CAP PO SCH (08:46)
[2021-10-09] MEDS: APIXABAN 5 MG TAB PO SCH ×2 (08:46→20:16)
[2021-10-09] MEDS: ASCORBIC ACID 500 MG TAB PO SCH (08:46)
[2021-10-09] MEDS: CHOLECALCIFEROL 25 MCG (1000 IU) TABLET PO SCH (08:46)
[2021-10-09] MEDS: CYANOCOBALAMIN 500 MCG TAB PO SCH (08:46)
[2021-10-09] MEDS: CITALOPRAM HYDROBROMIDE 20 MG TAB PO SCH (08:46)
[2021-10-09] MEDS: METOPROLOL TARTRATE 12.5 MG TAB PO SCH ×2 (08:46→20:15)
[2021-10-09] MEDS: LITHIUM CARBONATE 150 MG CAP PO SCH ×2 (08:47→20:15)
[2021-10-09] MEDS: ISOSORBIDE MONONITRATE ER 60 MG TAB.ER.24H PO SCH (08:47)
[2021-10-09] MEDS: VIT A,C & E-LUTEIN-MINERALS 1 EACH TAB PO SCH (08:47)
[2021-10-09] MEDS: OXYBUTYNIN XL 5 MG TAB.ER.24 PO SCH ×2 (08:47→20:15)
[2021-10-09] MEDS: DIGOXIN 125 MCG TAB PO SCH (08:47)
[2021-10-09] MEDS: DEUTETRABENAZINE PO SCH ×2 (08:48→20:18)
[2021-10-09] MEDS: CHLORHEXIDINE GLUCONATE 15 ML CUP MUCOUS MEM SCH ×2 (08:48→20:14)
[2021-10-09] MEDS: ACETAMINOPHEN TAB 325 MG TAB PO PRN (09:10)
[2021-10-09] MEDS: LORazepam 0.5 MG TAB PO PRN ×2 (09:12→20:30)
[2021-10-09 12:03] LABS: Glucose,Whole Blood 111 mg/dL (75-99)
--- NOTE | 2021-10-09 12:07 | P.PN ---
Progress Note - Text Progress Note Date: 10/09/21 Chief Complaint: Short of breath This is a pleasant 66-year-old patient of visiting physician Dr. Gomes. Resident of [facility] . Does use a walker . Chronic stable medical conditions include asthma diabetes mellitus type 2, hypertension, hyperlipidemia, hiatal hernia, peripheral neuropathy, schizoaffective disorder, GERD. Patient now presents with progressive shortness of breath. Cough. No sputum. No fever or chills. Appetite is okay. Tired rundown. Being admitted for acute asthma exacerbation. October 08: Up in a chair. Short of breath wheezing. Oral intake better. Tired. October 09: Up in a chair. Breathing a bit better. Oral intake fair. Patient been going to rehab. Active Medications Acetaminophen (Acetaminophen Tab 325 Mg Tab) 650 mg PO Q6HR PRN PRN Reason: Mild Pain or Fever > 100.5 Last Admin: 10/09/21 09:10 Dose: 650 mg Documented by: Albuterol/Ipratropium (Ipratropium-Albuterol 3 Ml Neb) 3 ml INHALATION RT-QID [facility] Last Admin: 10/09/21 11:07 Dose: 3 ml Documented by: Albuterol/Ipratropium (Ipratropium-Albuterol 3 Ml Neb) 3 ml INHALATION RT-Q4H PRN PRN Reason: Shortness Of Breath Or Wheezing Apixaban (Apixaban 5 Mg Tab) 5 mg PO BID [facility]; Protocol Last Admin: 10/09/21 08:46 Dose: 5 mg Documented by: Ascorbic Acid (Ascorbic Acid 500 Mg Tab) 500 mg PO DAILY [facility] Last Admin: 10/09/21 08:46 Dose: 500 mg Documented by: Atorvastatin Calcium (Atorvastatin 10 Mg Tab) 10 mg PO HS [facility] Last Admin: 10/08/21 20:35 Dose: 10 mg Documented by: Budesonide (Budesonide 1 Mg/2 Ml Nebu) 1 mg INHALATION RT-BID [facility] Last Admin: 10/09/21 08:12 Dose: 1 mg Documented by: Calcium Carbonate/Glycine (Calcium Carbonate 500 Mg Chewable) 1,000 mg PO Q4HR PRN PRN Reason: Dyspepsia Chlorhexidine Gluconate (Chlorhexidine Gluconate 15 Ml Cup) 15 ml MUCOUS MEM BID [facility] Last Admin: 10/09/21 08:48 Dose: 15 ml Documented by: Cholecalciferol (Cholecalciferol 25 Mcg (1000 Iu) Tablet) 50 mcg PO DAILY [facility] Last Admin: 10/09/21 08:46 Dose: 50 mcg Documented by: Citalopram Hydrobromide (Citalopram Hydrobromide 20 Mg Tab) 40 mg PO DAILY [facility] Last Admin: 10/09/21 08:46 Dose: 40 mg Documented by: Clozapine (Clozapine 100 Mg Tab) 250 mg PO [facility] Stop: 10/15/21 23:00 Last Admin: 10/08/21 20:35 Dose: 250 mg Documented by: Cyanocobalamin (Cyanocobalamin 500 Mcg Tab) 1,000 mcg PO DAILY [facility] Last Admin: 10/09/21 08:46 Dose: 1,000 mcg Documented by: Digoxin (Digoxin 125 Mcg Tab) 125 mcg PO DAILY [facility] Last Admin: 10/09/21 08:47 Dose: 125 mcg Documented by: Formoterol Fumarate (Formoterol Fumarate 20 Mcg/2 Ml Nebu) 20 mcg INHALATION RT-BID [facility] Last Admin: 10/09/21 08:12 Dose: 20 mcg Documented by: Gabapentin (Gabapentin 100 Mg Cap) 200 mg PO DAILY [facility] Last Admin: 10/09/21 08:46 Dose: 200 mg Documented by: Insulin Aspart (Insulin Aspart (Novolog) 100 Unit/Ml Vial) 0 unit SQ AC-TID [facility]; Protocol Last Admin: 10/09/21 08:45 Dose: 4 unit Documented by: Isosorbide Mononitrate (Isosorbide Mononitrate Er 60 Mg Tab.Er.24h) 60 mg PO DAILY [facility] Last Admin: 10/09/21 08:47 Dose: 60 mg Documented by: Lactulose (Lactulose 20 Gm/30 Ml Cup) 20 gm PO DAILY PRN PRN Reason: Constipation [place] Carbonate ([place] Carbonate 150 Mg Cap) 150 mg PO BID [facility] Last Admin: 10/09/21 08:47 Dose: 150 mg Documented by: Lorazepam (Lorazepam 0.5 Mg Tab) 0.5 mg PO Q6HR PRN PRN Reason: Anxiety Last Admin: 10/09/21 09:12 Dose: 0.5 mg Documented by: Metformin HCl (Metformin 500 Mg Tab) 500 mg PO AC-BRKFST [facility] Last Admin: 10/09/21 08:46 Dose: 500 mg Documented by: Methylprednisolone Sodium Succinate (Methylprednisolone Sod Succi 40 Mg/Ml 1 Ml Vial) 40 mg IV Q8HR [facility] Last Admin: 10/09/21 08:47 Dose: 40 mg Documented by: Metoprolol Tartrate (Metoprolol Tartrate 12.5 Mg Tab) 12.5 mg PO BID [facility] Last Admin: 10/09/21 08:46 Dose: 12.5 mg Documented by: Multivitamins/Minerals (Vit A,C & F-Czwkvj-Tqqwgqft 1 Each Tab) 1 each PO DAILY [facility] Last Admin: 10/09/21 08:47 Dose: 1 each Documented by: Naloxone HCl (Naloxone 0.4 Mg/Ml 1 Ml Vial) 0.2 mg IV Q2M PRN PRN Reason: Opioid Reversal Nitroglycerin (Nitroglycerin Sl Tabs 0.4 Mg Tab) 0.4 mg SUBLINGUAL Q5M PRN PRN Reason: Chest Pain Deutetrabenazine [ (Austedo]) 9 mg PO BID [facility] Last Admin: 10/09/21 08:48 Dose: Not Given Documented by: Ondansetron HCl (Ondansetron 4 Mg/2 Ml Vial) 4 mg IVP Q8HR PRN PRN Reason: Nausea And Vomiting Oxybutynin Chloride (Oxybutynin Xl 5 Mg Tab.Er.24) 5 mg PO BID [facility] Last Admin: 10/09/21 08:47 Dose: 5 mg Documented by: Polyethylene Glycol (Polyethylene Glycol 3350 17 Gm Powd.Pack) 17 gm PO DAILY PRN PRN Reason: hold for loose stool Past medical history to include: COVID-19 positive diagnosed on 04/03/2021. Persistent bronchial asthma, diabetes mellitus type 2, hypertension, hyperlipidemia, obesity, hiatal hernia, idiopathic peripheral neuropathy, GERD, schizoaffective disorder bipolar type, atrial fibrillation, macular degeneration, uterine cancer with hysterectomy, tardive dyskinesia, use a walker Social history: Lives at the [facility], does use a walker. Stopped drinking alcohol in 2006. Never smoked. Physical examination: VITAL SIGNS: 97.7, 90, 16, 117/71, 94% on 3 L GENERAL: Up in chair, breathing better EYES: Pupils equal. Conjunctiva normal. HEENT: External appearance of nose and ears normal, oral cavity grossly normal. NECK: JVD not raised; masses not palpable. HEART: First and second heart sounds are normal; no edema. LUNGS: Respiratory rate increased diminished breath sound, significant, wheezing. ABDOMEN: Soft, nontender, liver spleen not palpable, no masses palpable. PSYCH: Alert and oriented x3; mood and affect less anxious INVESTIGATIONS, reviewed in the clinical context: White count 12 hemoglobin 11.9 platelets 199 potassium 3.5 creatinine 0.7 UA: Unremarkable COVID-19/influenza type A/influenza type B: Not detected EKG tracing personally reviewed by me-normal sinus rhythm. 89/m. Nonspecific ST T wave depression. Chest x-ray film personally reviewed by me-some scattered infiltrates Assessment and plan: --Acute exacerbation of Moderate persistent asthma, DuoNeb 4 times a day, IV Solu-Medrol. Inhaled steroids. Perforomist -Acute medical debility due to asthma exacerbation Fall precautions -Diabetes mellitus type 2, on oral hypoglycemic. metformin . Follow Accu-Cheks -Essential Hypertension Lopressor 12.5 by mouth twice a day -Hyperlipidemia Lipitor 10 mg daily at bedtime -Diabetic peripheral neuropathy Neurontin 200 mg daily -GERD Tums when necessary -Paroxysmal atrial fibrillation currently sinus rhythm Lopressor 12.5 by mouth twice a day. Eliquis 5 mg twice a day -Schizoaffective disorder Clozaril 300 mg daily at bedtime Celexa 40 mg daily -Chronic urinary stress incontinence Ditropan XL 5 mg twice a day -Tardive dyskinesia due to medications -Chronic gait dysfunction, uses a walker at baseline Fall precautions -Full code DuoNeb. IV steroids cutback to every 12. Nebulized Pulmicort. Discussed with the patient. Perforomist he did DC to rehab tomorrow.
[2021-10-09 16:42] LABS: Glucose,Whole Blood 134 mg/dL (75-99)
[2021-10-09] MEDS: FUROSEMIDE 20 MG TAB PO SCH (18:06)
[2021-10-09] MEDS: cloZAPine 100 MG TAB PO SCH (20:15)
[2021-10-09] MEDS: ATORVASTATIN 10 MG TAB PO SCH (20:27)
[2021-10-09 20:50] LABS: Glucose,Whole Blood 173 mg/dL (75-99)
[2021-10-09 20:52] LABS: Appearance,Urine Clear (Clear); Bacteria,Urine Rare /hpf; Bilirubin,Urine Negative (Negative); Blood,Urine Negative (Negative); Color,Urine Colorless; Glucose,Urine (UA) Negative (Negative); Ketones,Urine Negative (Negative); Leukocyte Esterase,Urine Trace (Negative); Nitrite,Urine Negative (Negative); Protein,Urine Negative (Negative); Specific Gravity,Urine 1.002 (1.001-1.035); Squamous Epithelial Cell,Urine 1 /hpf (0-4); Urobilinogen,Urine <2.0 mg/dL (<2.0); WBC,Urine 1 /hpf (0-5)
[2021-10-10 06:57] LABS: Glucose,Whole Blood 177 mg/dL (75-99)
[2021-10-10 07:18] VITALS: BP 123/70; RESP 16; TEMP 98.6
[2021-10-10] MEDS: FORMOTEROL FUMARATE 20 MCG/2 ML NEBU INHALATION SCH (08:36)
[2021-10-10] MEDS: IPRATROPIUM-ALBUTEROL 3 ML NEB INHALATION SCH ×2 (08:36→11:18)
[2021-10-10] MEDS: BUDESONIDE 1 MG/2 ML NEBU INHALATION SCH (08:36)
[2021-10-10] MEDS: metFORMIN 500 MG TAB PO SCH (08:45)
[2021-10-10] MEDS: LITHIUM CARBONATE 150 MG CAP PO SCH (08:45)
[2021-10-10] MEDS: FUROSEMIDE 20 MG TAB PO SCH (08:45)
[2021-10-10] MEDS: DIGOXIN 125 MCG TAB PO SCH (08:45)
[2021-10-10] MEDS: CHLORHEXIDINE GLUCONATE 15 ML CUP MUCOUS MEM SCH (08:45)
[2021-10-10] MEDS: ISOSORBIDE MONONITRATE ER 60 MG TAB.ER.24H PO SCH (08:46)
[2021-10-10] MEDS: VIT A,C & E-LUTEIN-MINERALS 1 EACH TAB PO SCH (08:46)
[2021-10-10] MEDS: GABAPENTIN 100 MG CAP PO SCH (08:46)
[2021-10-10] MEDS: APIXABAN 5 MG TAB PO SCH (08:46)
[2021-10-10] MEDS: CITALOPRAM HYDROBROMIDE 20 MG TAB PO SCH (08:46)
[2021-10-10] MEDS: ASCORBIC ACID 500 MG TAB PO SCH (08:46)
[2021-10-10] MEDS: METOPROLOL TARTRATE 12.5 MG TAB PO SCH (08:46)
[2021-10-10] MEDS: INSULIN ASPART (NovoLOG) 100 UNIT/ML VIAL SQ SCH (08:46)
[2021-10-10] MEDS: OXYBUTYNIN XL 5 MG TAB.ER.24 PO SCH (08:46)
[2021-10-10] MEDS: CYANOCOBALAMIN 500 MCG TAB PO SCH (08:46)
[2021-10-10] MEDS: CHOLECALCIFEROL 25 MCG (1000 IU) TABLET PO SCH (08:46)
[2021-10-10] MEDS: methylPREDNISolone SOD SUCCI 40 MG/ML 1 ML VIAL IV SCH (08:47)
[2021-10-10] MEDS: DEUTETRABENAZINE PO SCH (09:11)
[2021-10-10 11:21] VITALS: PULSE 85
--- NOTE | 2021-10-10 15:08 | P.DS ---
Providers Date of admission: 10/07/21 15:48 Expected date of discharge: 10/10/21 Attending physician: Marvin Elizabeth Primary care physician: Loki Gomes [facility] Course: Chief Complaint: Short of breath This is a pleasant 66-year-old patient of visiting physician Dr. Gomes. Resident of [facility] . Does use a walker . Chronic stable medical conditions include asthma diabetes mellitus type 2, hypertension, hyperlipidemia, hiatal hernia, peripheral neuropathy, schizoaffective disorder, GERD. Patient now presents with progressive shortness of breath. Cough. No sputum. No fever or chills. Appetite is okay. Tired rundown. Being admitted for acute asthma exacerbation. October 08: Up in a chair. Short of breath wheezing. Oral intake better. Tired. October 09: Up in a chair. Breathing a bit better. Oral intake fair. Patient been going to rehab. October 10: Patient doing well. Using a walker well. Discussed with Hira from physical therapy. Patient will do well at a group of. Which is supervised. Discussed with patient. Communicating to rn case manager. Prednisone taper. Discussion and discharge planning more than 35 minutes Past medical history to include: COVID-19 positive diagnosed on 04/03/2021. Persistent bronchial asthma, diabetes mellitus type 2, hypertension, hyperlipidemia, obesity, hiatal hernia, idiopathic peripheral neuropathy, GERD, schizoaffective disorder bipolar type, atrial fibrillation, macular degeneration, uterine cancer with hysterectomy, tardive dyskinesia, use a walker Social history: Lives at the [facility], does use a walker. Stopped drinking alcohol in 2006. Never smoked. Physical examination: VITAL SIGNS: 98.6, 85, 16, 123 with 70, 94% on 3 L GENERAL: Up in chair, comfortable, coloring pictures EYES: Pupils equal. Conjunctiva normal. HEENT: External appearance of nose and ears normal, oral cavity grossly normal. NECK: JVD not raised; masses not palpable. HEART: First and second heart sounds are normal; no edema. LUNGS: Respiratory rate normal diminished breath sound, mild, wheezing. ABDOMEN: Soft, nontender, liver spleen not palpable, no masses palpable. PSYCH: Alert and oriented x3; mood and affect normal INVESTIGATIONS, reviewed in the clinical context: White count 12 hemoglobin 11.9 platelets 199 potassium 3.5 creatinine 0.7 UA: Unremarkable COVID-19/influenza type A/influenza type B: Not detected EKG tracing personally reviewed by me-normal sinus rhythm. 89/m. Nonspecific ST T wave depression. Chest x-ray film personally reviewed by me-some scattered infiltrates Assessment and plan: --Acute exacerbation of Moderate persistent asthma, colon better DuoNeb 4 times a day, IV Solu-Medrol. Inhaled steroids. Perforomist. Discharged on DuoNeb 3 times a day. Prednisone taper. Mucinex. -Acute medical debility due to asthma exacerbation: Better Fall precautions -Diabetes mellitus type 2, on oral hypoglycemic. metformin . Follow Accu-Cheks -Essential Hypertension Lopressor 12.5 by mouth twice a day -Hyperlipidemia Lipitor 10 mg daily at bedtime -Diabetic peripheral neuropathy Neurontin 200 mg daily -GERD Tums when necessary -Paroxysmal atrial fibrillation currently sinus rhythm Lopressor 12.5 by mouth twice a day. Eliquis 5 mg twice a day -Schizoaffective disorder Clozaril 300 mg daily at bedtime Celexa 40 mg daily -Chronic urinary stress incontinence Ditropan XL 5 mg twice a day -Tardive dyskinesia due to medications -Chronic gait dysfunction, uses a walker at baseline Fall precautions -Full code Disposition: [facility] Plan - Discharge Summary Discharge Rx Participant: Yes New Discharge Prescriptions: New predniSONE 10 mg PO DAILY #30 tab guaiFENesin [Mucinex] 600 mg PO TID #60 tab Ipratropium-Albuterol Nebulize [Duoneb 0.5 mg-3 mg/3 ml Soln] 3 ml INHALATION TID #90 ml Continue Atorvastatin [Lipitor] 10 mg PO HS Metoprolol Tartrate [Lopressor] 12.5 mg PO BID Oxybutynin Xl [Ditropan XL] 5 mg PO BID Gabapentin [Neurontin] 200 mg PO DAILY metFORMIN HCL ER [Glucophage XR] 500 mg PO Q48H Vit C/E/Zn/Coppr/Lutein/Zeaxan [Preservision Areds 2 Softgel] 1 cap PO BID Cyanocobalamin (Vitamin B-12) [Vitamin B-12] 1,000 mcg PO DAILY Apixaban [Eliquis] 5 mg PO BID Fluticasone Propionate [Flovent Hfa 44 mcg] 1 puff INHALATION RT-BID PRN PRN Reason: Shortness Of Breath Cholecalciferol [Vitamin D3 (25 Mcg = 1000 Iu)] 50 mcg PO DAILY cloZAPine [Clozaril] 250 mg PO HS polyethylene glycoL 3350 [Miralax] 17 gm PO DAILY PRN PRN Reason: hold for loose stool Isosorbide Mononitrate ER [Imdur] 60 mg PO DAILY Digoxin [Lanoxin] 125 mcg PO DAILY Chlorhexidine Gluconate [Peridex] 15 ml PO BID Nitroglycerin Sl Tabs [Nitrostat] 0.4 mg SUBLINGUAL Q5M PRN PRN Reason: Chest Pain Ascorbic Acid [Vitamin C] 500 mg PO DAILY Furosemide [Lasix] 20 mg PO DAILY Deutetrabenazine [Austedo] 9 mg PO BID [place] Carbonate 150 mg PO BID 30 Days #60 cap Albuterol Sulfate [Ventolin HFA] 2 puff INHALATION RT-Q4H PRN PRN Reason: Shortness Of Breath Ipratropium/Albuterol Sulfate [Combivent Respimat Inhaler] 1 puff INHALATION RT-TID Citalopram Hydrobromide [CeleXA] 40 mg PO DAILY Discontinued Tiotropium 2.5 Mcg/Puff [Spiriva Respimat 2.5 Mcg] 2 puff INHALATION RT-DAILY Discharge Medication List Atorvastatin [Lipitor] 10 mg PO HS 12/30/16 [History] Metoprolol Tartrate [Lopressor] 12.5 mg PO BID 02/25/17 [History] Oxybutynin Xl [Ditropan XL] 5 mg PO BID 02/25/17 [History] Gabapentin [Neurontin] 200 mg PO DAILY 05/19/19 [History] metFORMIN HCL ER [Glucophage XR] 500 mg PO Q48H 05/19/19 [History] Cyanocobalamin (Vitamin B-12) [Vitamin B-12] 1,000 mcg PO DAILY 04/24/20 [History] Vit C/E/Zn/Coppr/Lutein/Zeaxan [Preservision Areds 2 Softgel] 1 cap PO BID 04/24/20 [History] Apixaban [Eliquis] 5 mg PO BID 05/07/21 [History] Digoxin [Lanoxin] 125 mcg PO DAILY 05/07/21 [History] Isosorbide Mononitrate ER [Imdur] 60 mg PO DAILY 05/07/21 [History] Ascorbic Acid [Vitamin C] 500 mg PO DAILY 08/18/21 [History] Chlorhexidine Gluconate [Peridex] 15 ml PO BID 08/18/21 [History] Cholecalciferol [Vitamin D3 (25 Mcg = 1000 Iu)] 50 mcg PO DAILY 08/18/21 [History] Deutetrabenazine [Austedo] 9 mg PO BID 08/18/21 [History] Fluticasone Propionate [Flovent Hfa 44 mcg] 1 puff INHALATION RT-BID PRN 08/18/21 [History] Furosemide [Lasix] 20 mg PO DAILY 08/18/21 [History] Nitroglycerin Sl Tabs [Nitrostat] 0.4 mg SUBLINGUAL Q5M PRN 08/18/21 [History] [place] Carbonate 150 mg PO BID 30 Days #60 cap 08/20/21 [Rx] cloZAPine [Clozaril] 250 mg PO HS 09/03/21 [History] Albuterol Sulfate [Ventolin HFA] 2 puff INHALATION RT-Q4H PRN 10/07/21 [History] Citalopram Hydrobromide [CeleXA] 40 mg PO DAILY 10/07/21 [History] Ipratropium/Albuterol Sulfate [Combivent Respimat Inhaler] 1 puff INHALATION RT- TID 10/07/21 [History] polyethylene glycoL 3350 [Miralax] 17 gm PO DAILY PRN 10/07/21 [History] Ipratropium-Albuterol Nebulize [Duoneb 0.5 mg-3 mg/3 ml Soln] 3 ml INHALATION TID #90 ml 10/10/21 [Rx] guaiFENesin [Mucinex] 600 mg PO TID #60 tab 10/10/21 [Rx] predniSONE 10 mg PO DAILY #30 tab 10/10/21 [Rx] Follow up Appointment(s)/Referral(s): [facility] [NON-STAFF] - 1-2 Days Loki Gomes MD [Primary Care Provider] - 1-2 days Patient Instructions/Handouts: COPD (Chronic Obstructive Pulmonary Disease) (DC) Discharge Disposition: HOME SELF-CARE
== END 2021-10-10 12:00 | disposition home or self-care (01) ==
LOC: EC 12:33 → EEVIPCON 15:48 → 6NMEDSUR 15:48
PROVIDERS: ADMIT Hospitalist; ATTEND Hospitalist
DX: J45.41 Moderate persistent asthma with (acute) exacerbation (principal); J44.1 Chronic obstructive pulmonary disease with (acute) exacerbation; I11.0 Hypertensive heart disease with heart failure; I50.9 Heart failure, unspecified; E78.5 Hyperlipidemia, unspecified; E11.42 Type 2 diabetes mellitus with diabetic polyneuropathy; K21.9 Gastro-esophageal reflux disease without esophagitis; Z20.822 Contact with and (suspected) exposure to COVID-19; I48.0 Paroxysmal atrial fibrillation; N39.3 Stress incontinence (female) (male); K59.00 Constipation, unspecified; G24.01 Drug induced subacute dyskinesia; R26.9 Unspecified abnormalities of gait and mobility; I25.10 Atherosclerotic heart disease of native coronary artery without angina pectoris; G62.9 Polyneuropathy, unspecified; K44.9 Diaphragmatic hernia without obstruction or gangrene; H35.30 Unspecified macular degeneration; H35.3210 Exudative age-related macular degeneration, right eye, stage unspecified; G60.9 Hereditary and idiopathic neuropathy, unspecified; F41.9 Anxiety disorder, unspecified; F25.0 Schizoaffective disorder, bipolar type; E66.9 Obesity, unspecified; Z68.26 Body mass index [BMI] 26.0-26.9, adult; Z79.899 Other long term (current) drug therapy; Z79.84 Long term (current) use of oral hypoglycemic drugs; Z79.51 Long term (current) use of inhaled steroids; Z79.01 Long term (current) use of anticoagulants; Z91.030 Bee allergy status; Z88.5 Allergy status to narcotic agent; Z88.8 Allergy status to other drugs, medicaments and biological substances; Z86.16 Personal history of COVID-19; Z87.440 Personal history of urinary (tract) infections; Z86.19 Personal history of other infectious and parasitic diseases; Z85.42 Personal history of malignant neoplasm of other parts of uterus; Z86.69 Personal history of other diseases of the nervous system and sense organs; Z86.73 Personal history of transient ischemic attack (TIA), and cerebral infarction without residual deficits; Z90.710 Acquired absence of both cervix and uterus; Z80.0 Family history of malignant neoplasm of digestive organs; Z80.8 Family history of malignant neoplasm of other organs or systems; Z82.49 Family history of ischemic heart disease and other diseases of the circulatory system
CPT/HCPCS: 99285; 96376 ×4; 96374; 36415; 94640 ×8; 94760 ×2; 93005; 97116; 97530 ×3; 97162; 97166; 83880; 80053; 83605; 84484; 85025; 85610; 85730; 81003; 81001; 87502; 87635; 71046; G0378 ×4; J2920 ×4; J2930; S0136 ×3

== ENCOUNTER 2022-09-23 22:35 | Emergency (ER) | payer MEDICARE, OTHER ==
[2022-09-23 23:03] VITALS: PULSE 68; RESP 18; TEMP 99.8
--- NOTE | 2022-09-23 23:15 | ED ---
Fall HPI - General Chief Complaint: Fall Stated Complaint: Fall, Head Injury Time Seen by Provider: 09/23/22 22:48 Source: patient Mode of arrival: EMS - History of Present Illness Initial Comments: Patient is a 67-year-old female presenting for evaluation post fall that occ urred 2 days ago. Patient states that she fell out of bed 2 days ago. She denies any loss of consciousness, she is on eliquis. She is complaining of neck pain as well as right shoulder and elbow pain and left hip pain. She has an abrasion to the right side of the head. Patient currently resides at [facility] home. Patient states that "I thought the pain was going to get better but it has gotten worse. No chest pain, difficulty breathing, palpitations, abdominal pain, vomiting. - Related Data Home Medications Medication Instructions Recorded Confirmed Atorvastatin [Lipitor] 10 mg PO HS 12/30/16 10/07/21 Metoprolol Tartrate [Lopressor] 12.5 mg PO BID 02/25/17 10/07/21 Oxybutynin Xl [Ditropan XL] 5 mg PO BID 02/25/17 10/07/21 Gabapentin [Neurontin] 200 mg PO DAILY 05/19/19 10/07/21 metFORMIN HCL ER [Glucophage XR] 500 mg PO Q48H 05/19/19 10/07/21 Cyanocobalamin (Vitamin B-12) 1,000 mcg PO DAILY 04/24/20 10/07/21 [Vitamin B-12] Vit C/E/Zn/Coppr/Lutein/Zeaxan 1 cap PO BID 04/24/20 10/07/21 [Preservision Areds 2 Softgel] Apixaban [Eliquis] 5 mg PO BID 05/07/21 10/07/21 Digoxin [Lanoxin] 125 mcg PO DAILY 05/07/21 10/07/21 Isosorbide Mononitrate ER [Imdur] 60 mg PO DAILY 05/07/21 10/07/21 Ascorbic Acid [Vitamin C] 500 mg PO DAILY 08/18/21 10/07/21 Chlorhexidine Gluconate [Peridex] 15 ml PO BID 08/18/21 10/07/21 Cholecalciferol [Vitamin D3 (25 50 mcg PO DAILY 08/18/21 10/07/21 Mcg = 1000 Iu)] Deutetrabenazine [Austedo] 9 mg PO BID 08/18/21 10/07/21 Fluticasone Propionate [Flovent 1 puff INHALATION RT-BID PRN 08/18/21 10/07/21 Hfa 44 mcg] Furosemide [Lasix] 20 mg PO DAILY 08/18/21 10/07/21 Nitroglycerin Sl Tabs [Nitrostat] 0.4 mg SUBLINGUAL Q5M PRN 08/18/21 10/07/21 cloZAPine [Clozaril] 250 mg PO HS 09/03/21 10/07/21 Albuterol Sulfate [Ventolin HFA] 2 puff INHALATION RT-Q4H PRN 10/07/21 10/07/21 Citalopram Hydrobromide [CeleXA] 40 mg PO DAILY 10/07/21 10/07/21 Ipratropium/Albuterol Sulfate 1 puff INHALATION RT-TID 10/07/21 10/07/21 [Combivent Respimat Inhaler] polyethylene glycoL 3350 [Miralax] 17 gm PO DAILY PRN 10/07/21 10/07/21 Previous Rx's Medication Instructions Recorded [place] Carbonate 150 mg PO BID 30 Days #60 cap 08/20/21 Ipratropium-Albuterol Nebulize 3 ml INHALATION TID #90 ml 10/10/21 [Duoneb 0.5 mg-3 mg/3 ml Soln] guaiFENesin [Mucinex] 600 mg PO TID #60 tab 10/10/21 predniSONE 10 mg PO DAILY #30 tab 10/10/21 Nitrofurantoin Monohyd/M-Cryst 100 mg PO Q12HR 5 Days #10 cap 09/24/22 [Macrobid] Allergies Allergy/AdvReac Type Severity Reaction Status Date / Time bee venom protein (honey bee) Allergy Anaphylaxis Verified 10/07/21 16:18 hydrocodone [From [facility]] AdvReac Confusion Verified 10/07/21 16:18 Review of Systems ROS Statement: Those systems with pertinent positive or pertinent negative responses have been documented in the HPI. ROS Other: All systems not noted in ROS Statement are negative. Past Medical History Past Medical History: Atrial Fibrillation, Coronary Artery Disease (CAD), Cancer, Heart Failure, COPD, CVA/TIA, Diabetes Mellitus, Eye Disorder, GERD/Reflux, Hyperlipidemia, Hypertension Additional Past Medical History / Comment(s): NIDDM type II, neuropathy bilateral feet, bronchial asthma, home oxygen prn, obesity, occasional lower extremity edema, past L axillae cellulitis/abscess-lengthy heal, shingles/staph, R eye wet macular degeneration/ L eye dry macular degeneration, uterine cancer with hysterectomy, TIA, hiatal hernia, uterine cancer with hysterectomy, tardive dyskinesia r/t psych medication, migraines, sinus problems, paroxysmal atrial fibrillation, past urinary retention w/ past chronic mackenzie, UTIs. History of Any Multi-Drug Resistant Organisms: None Reported Past Surgical History: Adenoidectomy, Cholecystectomy, Ear Surgery, Heart Catheterization, Hysterectomy, Tonsillectomy Additional Past Surgical History / Comment(s): I & D L axillae, L eye surgery for lazy eye, bilateral cataract removal, bilateral myringotomy/tubes, colonoscopy, bronchoscopy, cervical surgery Past Anesthesia/Blood Transfusion Reactions: No Reported Reaction Past Psychological History: Anxiety, Depression, Schizoaffective Disorder Smoking Status: Never smoker Past Alcohol Use History: None Reported Past Drug Use History: None Reported - Past Family History Mother Family Medical History: Myocardial Infarction ([place]) Additional Family Medical History / Comment(s): Mother at 72 yrs. Father Family Medical History: Cancer Additional Family Medical History / Comment(s): Throat cancer; father at 72 yrs. Brother(s) Family Medical History: Cancer Additional Family Medical History / Comment(s): Liver cancer General Exam General appearance: alert, in no apparent distress Head exam: Present: normocephalic Expanded Head exam: Present: abrasion Eye exam: Present: normal appearance, PERRL, EOMI. Absent: scleral icterus, periorbital swelling Neck exam: Present: normal inspection Respiratory exam: Present: normal lung sounds bilaterally. Absent: respiratory distress, wheezes, rales, rhonchi, stridor Cardiovascular Exam: Present: regular rate, normal rhythm, normal heart sounds. Absent: systolic murmur, diastolic murmur, rubs, gallop, clicks Neurological exam: Present: alert, oriented X3 (Intermittent episodes of confusion) Expanded Eye Response: (4) open spontaneously Motor Response: (6) obeys commands Verbal Response: (5) oriented [place] Total: 15 Psychiatric exam: Present: normal affect, normal mood Skin exam: Present: warm, dry, intact, normal color. Absent: rash Course Vital Signs 09/23/22 22:58 Temperature 99.8 F H Pulse Rate 68 Respiratory 18 Rate Blood Pressure 120/70 O2 Sat by Pulse 96 Oximetry Medical Decision Making - Medical Decision Making Was pt. sent in by a medical professional or institution (, PA, ALUMINUM SIDING INSTALLER, urgent care, hospital, or assisted...) When possible be specific @ -No Did you speak to anyone other than the patient for history (EMS, parent, family, police, friend...)? What history was obtained from this source @ -No Did you review nursing and triage notes (agree or disagree)? Why? @ -I reviewed and agree with nursing and triage notes Were old charts reviewed (outside hosp., previous admission, EMS record, old EKG, old radiological studies, urgent care reports/EKG's, assisted records)? Report findings @ -Previous EKG reviewed Differential Diagnosis (chest pain, altered mental status, abdominal pain women, abdominal pain men, vaginal bleeding, weakness, fever, dyspnea, syncope, headache, dizziness, GI bleed, back pain, seizure, CVA, palpatations, mental health, musculoskeletal)? @ -Differential Musculoskeletal Muscular strain, contusion, ligament sprain, fracture, arthritis, septic arthritis, bursitis, cellulitis, muscle spasm, nerve compression, DVT, arterial occlusion, herpes zoster, electrolyte abnormality, tumor.... This is not meant to be in all inclusive list EKG interpreted by me (3pts min.). @ -Sinus rhythm ventricular rate 68. NJ interval 141. QRS 80. QT 405. QTc 422. No acute changes compared to previous EKG X-rays interpreted by me (1pt min.). @ -X-rays of the chest, right elbow, right shoulder, and left hip show no acute process CT interpreted by me (1pt min.). @ -CT of the brain and cervical spine shows no acute intracranial process or fracture of the cervical spine U/S interpreted by me (1pt. min.). @ -None done What testing was considered but not performed or refused? (CT, X-rays, U/S, labs)? Why? @ -None What meds were considered but not given or refused? Why? @ -None Did you discuss the management of the patient with other professionals (professionals i.e. , PA, ALUMINUM SIDING INSTALLER, lab, RT, psych nurse, social economist, analytical lab technician, teacher, forward air controller/air officer, welfare case worker)? Give summary @ -No Was smoking cessation discussed for >3mins.? @ -No Was critical care preformed (if so, how long)? @ -No Were there social determinants of health that impacted care today? How? (H omelessness, low income, unemployed, alcoholism, drug addiction, transportation, low edu. Level, literacy, decrease access to med. care, care home, rehab)? @ -No Was there de-escalation of care discussed even if they declined (Discuss DNR or withdrawal of care, Hospice)? DNR status @ -No What co-morbidities impacted this encounter? (DM, HTN, Smoking, COPD, CAD, Cancer, CVA, ARF, Chemo, Hep., AIDS, mental health diagnosis, sleep apnea, morbid obesity)? @ -None Was patient admitted / discharged? Hospital course, mention meds given and route, prescriptions, significant lab abnormalities, going to OR and other pertinent info. @ -Patient is a 67-year-old female presenting for evaluation after a fall out of bed 2 days ago. Patient did hit her head, no loss of consciousness or blood thinners. She is complaining of right shoulder and elbow pain as well as left hip pain. Patient has no focal neurological deficits, she is a and O 3 with mild intermittent confusion, she was given 100 mcg of fentanyl by EMS which may contribute to the confusion. Lab work shows no leukocytosis or anemia. Some transaminitis is noted. Urine shows moderate leukocytes, will cover for UTI with Macrobid. X-rays and CT of the brain and cervical spine are all negative. EKG shows no acute changes when compared to most recent EKG. Patient is resting comfortably. She is educated on today's findings on supportive management at home. Follow-up with PCP. Report back to ER with any new or worsening symptoms. Discussed return parameters and answered all questions. Patient conveyed verbal understanding and agreed to the plan. I discussed this case in detail with my attending Dr. Ventura Undiagnosed new problem with uncertain prognosis? @ -No Drug Therapy requiring intensive monitoring for toxicity (Heparin, Nitro, Insulin, Cardizem)? @ -No Were any procedures done? @ -No Diagnosis/symptom? @ -UTI Acute, or Chronic, or Acute on Chronic? @ -Acute Uncomplicated (without systemic symptoms) or Complicated (systemic symptoms)? @ -uncomplicated Side effects of treatment? @ -No Exacerbation, Progression, or Severe Exacerbation? @ -No Poses a threat to life or bodily function? How? (Chest pain, [place], [place], pneumonia, PE, COPD, DKA, ARF, appy, cholecystitis, CVA, Diverticulitis, Homicidal, Suicidal, threat to staff... and all critical care pts) @ -Unlikely at this time - Lab Data Result diagrams: 09/23/22 23:07 09/23/22 23:07 Lab Results 09/23/22 09/23/22 09/23/22 Range/Units 23:07 23: 23:07 WBC 6.5 (3.8-10.6) k/uL RBC 3.91 (3.80-5.40) m/uL Hgb 11.8 (11.4-16.0) gm/dL Hct 36.2 (34.0-46.0) % MCV 92.8 (80.0-100.0) fL MCH 30.2 (25.0-35.0) pg MCHC 32.5 (31.0-37.0) g/dL RDW 12.6 (11.5-15.5) % Plt Count 183 (150-450) k/uL MPV 8.7 Neutrophils % 61 % Lymphocytes % 30 % Monocytes % 4 % Eosinophils % 2 % Basophils % 0 % Neutrophils # 4.0 (1.3-7.7) k/uL Lymphocytes # 1.9 (1.0-4.8) k/uL Monocytes # 0.3 (0-1.0) k/uL Eosinophils # 0.2 (0-0.7) k/uL Basophils # 0.0 (0-0.2) k/uL PT 10.3 (9.0-12.0) sec INR 1.0 (<1.2) APTT 27.9 (22.0-30.0) sec Sodium 137 (137-145) mmol/L Potassium 4.0 (3.5-5.1) mmol/L Chloride 106 (98-107) mmol/L Carbon Dioxide 24 (22-30) mmol/L Anion Gap 7 mmol/L BUN 17 (7-17) mg/dL Creatinine 0.74 (0.52-1.04) mg/dL Est GFR (CKD-EPI)AfAm >90 (>60 ml/min/1.73 sqM) Est GFR (CKD-EPI)NonAf 85 (>60 ml/min/1.73 sqM) Glucose 104 H (74-99) mg/dL Calcium 8.0 L (8.4-10.2) mg/dL Total Bilirubin 0.3 (0.2-1.3) mg/dL AST 132 H (14-36) U/L ALT 54 H (4-34) U/L Alkaline Phosphatase 113 (38-126) U/L Total Protein 5.3 L (6.3-8.2) g/dL Albumin 3.1 L (3.5-5.0) g/dL Urine Color Urine Appearance (Clear) Urine pH (5.0-8.0) Ur Specific [place] (1.001-1.035) Urine Protein (Negative) Urine Glucose (UA) (Negative) Urine Ketones (Negative) Urine Blood (Negative) Urine Nitrite (Negative) Urine Bilirubin (Negative) Urine Urobilinogen (<2.0) mg/dL Ur Leukocyte Esterase (Negative) Urine RBC (0-5) /hpf Urine WBC (0-5) /hpf Ur Squamous Epith Cells (0-4) /hpf Hyaline Casts (0-2) /lpf Urine Mucus (None) /hpf 09/24/22 Range/Units 00:51 WBC (3.8-10.6) k/uL RBC (3.80-5.40) m/uL Hgb (11.4-16.0) gm/dL Hct (34.0-46.0) % MCV (80.0-100.0) fL MCH (25.0-35.0) pg MCHC (31.0-37.0) g/dL RDW (11.5-15.5) % Plt Count (150-450) k/uL MPV Neutrophils % % Lymphocytes % % Monocytes % % Eosinophils % % Basophils % % Neutrophils # (1.3-7.7) k/uL Lymphocytes # (1.0-4.8) k/uL Monocytes # (0-1.0) k/uL Eosinophils # (0-0.7) k/uL Basophils # (0-0.2) k/uL PT (9.0-12.0) sec INR (<1.2) APTT (22.0-30.0) sec Sodium (137-145) mmol/L Potassium (3.5-5.1) mmol/L Chloride (98-107) mmol/L Carbon Dioxide (22-30) mmol/L Anion Gap mmol/L BUN (7-17) mg/dL Creatinine (0.52-1.04) mg/dL Est GFR (CKD-EPI)AfAm (>60 ml/min/1.73 sqM) Est GFR (CKD-EPI)NonAf (>60 ml/min/1.73 sqM) Glucose (74-99) mg/dL Calcium (8.4-10.2) mg/dL Total Bilirubin (0.2-1.3) mg/dL AST (14-36) U/L ALT (4-34) U/L Alkaline Phosphatase (38-126) U/L Total Protein (6.3-8.2) g/dL Albumin (3.5-5.0) g/dL Urine Color Yellow Urine Appearance Clear (Clear) Urine pH 6.5 (5.0-8.0) Ur Specific [place] 1.010 (1.001-1.035) Urine Protein Trace H (Negative) Urine Glucose (UA) Negative (Negative) Urine Ketones Negative (Negative) Urine Blood Negative (Negative) Urine Nitrite Negative (Negative) Urine Bilirubin Negative (Negative) Urine Urobilinogen <2.0 (<2.0) mg/dL Ur Leukocyte Esterase Moderate H (Negative) Urine RBC 1 (0-5) /hpf Urine WBC 25 H (0-5) /hpf Ur Squamous Epith Cells 1 (0-4) /hpf Hyaline Casts 5 H (0-2) /lpf Urine Mucus Rare H (None) /hpf Disposition Clinical Impression: Fall, UTI (urinary tract infection) Disposition: HOME SELF-CARE Condition: Good Instructions (If sedation given, give patient instructions): Urinary Tract Infection in Women (ED), Fall Prevention for Older Adults (ED), Head Injury (ED) Additional Instructions: Follow-up with PCP. Report back to ER with any new or worsening symptoms. Take medication as prescribed. Prescriptions: Nitrofurantoin Monohyd/M-Cryst [Macrobid] 100 mg PO Q12HR 5 Days #10 cap Is patient prescribed a controlled substance at d/c from ED?: No Referrals: Loki Gomes MD [Primary Care Provider] - 1-2 days Time of Disposition: 01:19
[2022-09-23 23:33] LABS: Basophils % (A) 0 %; Eosinophils # (A) 0.2 k/uL (0-0.7); Eosinophils % (A) 2 %; HCT 36.2 % (34.0-46.0); HGB 11.8 gm/dL (11.4-16.0); Lymphocytes # (A) 1.9 k/uL (1.0-4.8); Lymphocytes % (A) 30 %; MCH 30.2 pg (25.0-35.0); MCHC 32.5 g/dL (31.0-37.0); MCV 92.8 fL (80.0-100.0); Mean Platelet Volume 8.7; Monocytes # (A) 0.3 k/uL (0-1.0); Monocytes % (A) 4 %; Neutrophils % (A) 61 %; Platelet Count 183 k/uL (150-450); RBC 3.91 m/uL (3.80-5.40); RDW 12.6 % (11.5-15.5); WBC 6.5 k/uL (3.8-10.6)
[2022-09-23 23:41] LABS: Prothrombin Time 10.3 sec (9.0-12.0)
[2022-09-23 23:42] LABS: Partial Thromboplastin Time 27.9 sec (22.0-30.0)
[2022-09-23 23:45] LABS: ALT 54 U/L (4-34); AST 132 U/L (14-36); African American GFR (CKD) >90 (>60 ml/min/1.73 sqM); Albumin 3.1 g/dL (3.5-5.0); Alkaline Phosphatase 113 U/L (38-126); Anion Gap 7 mmol/L; Blood Urea Nitrogen 17 mg/dL (7-17); Carbon Dioxide 24 mmol/L (22-30); Chloride 106 mmol/L (98-107); Glucose 104 mg/dL (74-99); Non-African American GFR(CKD) 85 (>60 ml/min/1.73 sqM); Sodium 137 mmol/L (137-145); Total Bilirubin 0.3 mg/dL (0.2-1.3); Total Protein 5.3 g/dL (6.3-8.2)
--- NOTE | 2022-09-24 00:02 | CT ---
EXAM: CT Head Without Intravenous Contrast CLINICAL HISTORY: ITS.REASON CT Reason: fall TECHNIQUE: Axial computed tomography images of the head/brain without intravenous contrast. CTDI is 45.2 mGy and DLP is 1139 mGy-cm. This CT exam was performed using one or more of the following dose reduction techniques: automated exposure control, adjustment of the mA and/or kV according to patien2 size, and/or use of iterative reconstruction technique. COMPARISON: 09/04/2019 FINDINGS: Brain: Unremarkable. No hemorrhage. No significant white matter disease. No edema. Ventricles: Unremarkable. No ventriculomegaly. Bones/joints: Unremarkable. No acute fracture. Soft tissues: Unremarkable. Sinuses: Mild mucosal thickening of the left maxillary sinus. Mastoid air cells: Unremarkable as visualized. No mastoid effusion. IMPRESSION: No acute findings in the head/brain. EXAM: CT Cervical Spine Without Intravenous Contrast CLINICAL HISTORY: ITS.REASON CT Reason: fall TECHNIQUE: Axial computed tomography images of the cervical spine without intravenous contrast. CTDI is 10.9 mGy and DLP is 328.1 mGy-cm. This CT exam was performed using one or more of the following dose reduction techniques: automated exposure control, adjustment of the mA and/or kV according to patient size, and/or use of iterative reconstruction technique. COMPARISON: No relevant prior studies available. FINDINGS: Vertebrae: Reversal of normal lordosis with mild kyphosis of the cervical spine. Otherwise, alignment is maintained. No acute fracture. Discs/spinal canal/neural foramina: Prior C4-5, C5-6, and C6-7 discectomy and anterior fusion from C4-C7 with plate and screws in position. No bony spinal canal stenosis. Soft tissues: Unremarkable. IMPRESSION: No acute findings in the cervical spine.
--- NOTE | 2022-09-24 00:14 | XR ---
EXAM: XR Chest, 1 View CLINICAL HISTORY: ITS.REASON XR Reason: altered mental status TECHNIQUE: Frontal view of the chest. COMPARISON: No relevant prior studies available. FINDINGS: Lungs: Vascular congestion. Pleural space: Unremarkable. No pneumothorax. No pleural effusions. Heart: Unremarkable. No cardiomegaly. Mediastinum: Unremarkable. Bones/joints: No acute osseous abnormalities. IMPRESSION: Vascular congestion.
--- NOTE | 2022-09-24 00:18 | XR ---
EXAM: XR Right Elbow Complete, 3 or More Views CLINICAL HISTORY: ITS.REASON XR Reason: fall TECHNIQUE: Frontal, lateral and oblique views of the right elbow. COMPARISON: No relevant prior studies available. 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 Irregularity of the radial head on the lateral view is favored to be secondary to osteophyte formation. Soft tissues: Unremarkable. IMPRESSION: No acute findings in the right elbow.
--- NOTE | 2022-09-24 00:20 | XR ---
EXAM: XR Right Shoulder Complete, 2 or More Views CLINICAL HISTORY: ITS.REASON XR Reason: fall TECHNIQUE: Two or more views of the right shoulder. COMPARISON: No relevant prior studies available. FINDINGS: Bones/joints: Mild AC joint degeneration. Soft tissues: Unremarkable. IMPRESSION: No acute findings in the right shoulder.
--- NOTE | 2022-09-24 00:23 | XR ---
EXAM: XR Left Hip With Pelvis When Performed, 2 or 3 Views CLINICAL HISTORY: ITS.REASON XR Reason: fall TECHNIQUE: Two or three views of the left hip with pelvis when performed. COMPARISON: No relevant prior studies available. FINDINGS: Bones/joints: No acute osseous abnormalities. Soft tissues: Unremarkable. IMPRESSION: Unremarkable left hip.
[2022-09-24 01:13] LABS: Appearance,Urine Clear (Clear); Bilirubin,Urine Negative (Negative); Blood,Urine Negative (Negative); Color,Urine Yellow; Glucose,Urine (UA) Negative (Negative); Hyaline Casts,Urine 5 /lpf (0-2); Ketones,Urine Negative (Negative); Leukocyte Esterase,Urine Moderate (Negative); Mucus,Urine Rare /hpf; Nitrite,Urine Negative (Negative); PH, Urine 6.5 (5.0-8.0); Protein,Urine Trace (Negative); RBC,Urine 1 /hpf (0-5); Squamous Epithelial Cell,Urine 1 /hpf (0-4); Urobilinogen,Urine <2.0 mg/dL (<2.0); WBC,Urine 25 /hpf (0-5)
[2022-09-24 02:36] VITALS: BP 113/70
== END 2022-09-24 02:38 | disposition home or self-care (01) ==
LOC: EC 22:35 → EEVIPCON 22:35 → EC 09-24 02:38
DX: N39.0 Urinary tract infection, site not specified (principal); I48.91 Unspecified atrial fibrillation; I25.10 Atherosclerotic heart disease of native coronary artery without angina pectoris; I11.0 Hypertensive heart disease with heart failure; I50.9 Heart failure, unspecified; E11.9 Type 2 diabetes mellitus without complications; J44.9 Chronic obstructive pulmonary disease, unspecified; E78.5 Hyperlipidemia, unspecified; F41.9 Anxiety disorder, unspecified; F32.A Depression, unspecified; Z86.73 Personal history of transient ischemic attack (TIA), and cerebral infarction without residual deficits; Z79.84 Long term (current) use of oral hypoglycemic drugs; Z79.01 Long term (current) use of anticoagulants; Z79.51 Long term (current) use of inhaled steroids; Z79.899 Other long term (current) drug therapy; Z91.030 Bee allergy status; Z88.8 Allergy status to other drugs, medicaments and biological substances; W06.XXXA Fall from bed, initial encounter
CPT/HCPCS: 36415; 70450; 71045; 72125; 73502; 80053; 81001; 85025; 85610; 85730; 87086; 93005; 99284

== ENCOUNTER 2022-12-21 00:58 | Observation (INO) | payer MEDICARE, OTHER ==
--- NOTE | 2022-12-21 02:46 | XR ---
EXAM: XR Chest, 2 Views CLINICAL HISTORY: ITS.REASON XR Reason: Chest Pain TECHNIQUE: Frontal and lateral views of the chest. COMPARISON: No relevant prior studies available. FINDINGS: Lungs: No consolidation or mass. Slightly prominent interstitial markings. Pleural space: No effusion. Heart: cardiomegaly. Bones/joints: No acute findings. IMPRESSION: Slightly prominent interstitial markings.
[2022-12-21 03:46] LABS: Basophils % (A) 0 %; Eosinophils # (A) 0.2 k/uL (0-0.7); Eosinophils % (A) 2 %; HCT 38.8 % (34.0-46.0); HGB 12.9 gm/dL (11.4-16.0); Lymphocytes # (A) 2.6 k/uL (1.0-4.8); Lymphocytes % (A) 31 %; MCH 31.5 pg (25.0-35.0); MCHC 33.2 g/dL (31.0-37.0); Mean Platelet Volume 8.4; Monocytes # (A) 0.4 k/uL (0-1.0); Monocytes % (A) 5 %; Neutrophils % (A) 59 %; Platelet Count 199 k/uL (150-450); RBC 4.08 m/uL (3.80-5.40); RDW 12.9 % (11.5-15.5); WBC 8.3 k/uL (3.8-10.6)
[2022-12-21 03:50] LABS: Partial Thromboplastin Time 25.9 sec (22.0-30.0); Prothrombin Time 10.3 sec (9.0-12.0)
--- NOTE | 2022-12-21 03:51 | ED ---
Chest Pain HPI - General Chief Complaint: Chest Pain Stated Complaint: Chest Pain Time Seen by Provider: 12/21/22 02:58 Source: patient, RN notes reviewed, old records reviewed Mode of arrival: EMS Limitations: physical limitation - History of Present Illness Initial Comments: This is a 67-year-old female to the ER today of chest pain. She states chest pains been going on for a few days 3-4 with no symptomatic proven relief. Patient is lightheadedness dizziness but mainly concerned for chest pain. Patient was given nitro by EMS no help. Patient does have significant history of coronary artery disease as well as multiple medical comorbidities. Patient does have current chest pain MD Complaint: chest pain -: days(s) (3) Onset: during rest, during exertion Pain Location: substernal Pain Radiation: none Severity: moderate Severity scale (1-10): 4 Quality: tightness, aching Consistency: constant Improves With: nothing Worsens With: exertion Anginal Symptoms: dyspnea Other Symptoms: palpitations Treatments Prior to Arrival: none - Related Data Home Medications Medication Instructions Recorded Confirmed Atorvastatin [Lipitor] 10 mg PO HS 12/30/16 10/07/21 Metoprolol Tartrate [Lopressor] 12.5 mg PO BID 02/25/17 10/07/21 Oxybutynin Xl [Ditropan XL] 5 mg PO BID 02/25/17 10/07/21 Gabapentin [Neurontin] 200 mg PO DAILY 05/19/19 10/07/21 metFORMIN HCL ER [Glucophage XR] 500 mg PO Q48H 05/19/19 10/07/21 Cyanocobalamin (Vitamin B-12) 1,000 mcg PO DAILY 04/24/20 10/07/21 [Vitamin B-12] Vit C/E/Zn/Coppr/Lutein/Zeaxan 1 cap PO BID 04/24/20 10/07/21 [Preservision Areds 2 Softgel] Apixaban [Eliquis] 5 mg PO BID 05/07/21 10/07/21 Digoxin [Lanoxin] 125 mcg PO DAILY 05/07/21 10/07/21 Isosorbide Mononitrate ER [Imdur] 60 mg PO DAILY 05/07/21 10/07/21 Ascorbic Acid [Vitamin C] 500 mg PO DAILY 08/18/21 10/07/21 Chlorhexidine Gluconate [Peridex] 15 ml PO BID 08/18/21 10/07/21 Cholecalciferol [Vitamin D3 (25 50 mcg PO DAILY 08/18/21 10/07/21 Mcg = 1000 Iu)] Deutetrabenazine [Austedo] 9 mg PO BID 08/18/21 10/07/21 Fluticasone Propionate [Flovent 1 puff INHALATION RT-BID PRN 08/18/21 10/07/21 Hfa 44 mcg] Furosemide [Lasix] 20 mg PO DAILY 08/18/21 10/07/21 Nitroglycerin Sl Tabs [Nitrostat] 0.4 mg SUBLINGUAL Q5M PRN 08/18/21 10/07/21 cloZAPine [Clozaril] 250 mg PO HS 09/03/21 10/07/21 Albuterol Sulfate [Ventolin HFA] 2 puff INHALATION RT-Q4H PRN 10/07/21 10/07/21 Citalopram Hydrobromide [CeleXA] 40 mg PO DAILY 10/07/21 10/07/21 Ipratropium/Albuterol Sulfate 1 puff INHALATION RT-TID 10/07/21 10/07/21 [Combivent Respimat Inhaler] polyethylene glycoL 3350 [Miralax] 17 gm PO DAILY PRN 10/07/21 10/07/21 Previous Rx's Medication Instructions Recorded [place] Carbonate 150 mg PO BID 30 Days #60 cap 08/20/21 Ipratropium-Albuterol Nebulize 3 ml INHALATION TID #90 ml 10/10/21 [Duoneb 0.5 mg-3 mg/3 ml Soln] guaiFENesin [Mucinex] 600 mg PO TID #60 tab 10/10/21 predniSONE 10 mg PO DAILY #30 tab 10/10/21 Nitrofurantoin Monohyd/M-Cryst 100 mg PO Q12HR 5 Days #10 cap 09/24/22 [Macrobid] Allergies Allergy/AdvReac Type Severity Reaction Status Date / Time bee venom protein (honey bee) Allergy Anaphylaxis Verified 12/21/22 01:01 hydrocodone [From [place]] AdvReac Confusion Verified 12/21/22 01:01 Review of Systems ROS Statement: Those systems with pertinent positive or pertinent negative responses have been documented in the HPI. ROS Other: All systems not noted in ROS Statement are negative. EKG Findings - EKG Comments: EKG Findings:: EKG is sinus 70 TX 143 QRS 96 QTc 420 - EKG Results: EKG: interpreted by CATARINO Past Medical History Past Medical History: Atrial Fibrillation, Coronary Artery Disease (CAD), Cancer, Heart Failure, COPD, CVA/TIA, Diabetes Mellitus, Eye Disorder, GERD/Reflux, Hyperlipidemia, Hypertension Additional Past Medical History / Comment(s): NIDDM type II, neuropathy bilateral feet, bronchial asthma, home oxygen prn, obesity, occasional lower extremity edema, past L axillae cellulitis/abscess-lengthy heal, shingles/staph, R eye wet macular degeneration/ L eye dry macular degeneration, uterine cancer with hysterectomy, TIA, hiatal hernia, uterine cancer with hysterectomy, tardive dyskinesia r/t psych medication, migraines, sinus problems, paroxysmal atrial fibrillation, past urinary retention w/ past chronic mackenzie, UTIs. History of Any Multi-Drug Resistant Organisms: None Reported Past Surgical History: Adenoidectomy, Cholecystectomy, Ear Surgery, Heart Catheterization, Hysterectomy, Tonsillectomy Additional Past Surgical History / Comment(s): I & D L axillae, L eye surgery for lazy eye, bilateral cataract removal, bilateral myringotomy/tubes, colonoscopy, bronchoscopy, cervical surgery Past Anesthesia/Blood Transfusion Reactions: No Reported Reaction Past Psychological History: Anxiety, Depression, Schizoaffective Disorder Smoking Status: Never smoker Past Alcohol Use History: None Reported Past Drug Use History: None Reported - Past Family History Mother Family Medical History: Myocardial Infarction ([place]) Additional Family Medical History / Comment(s): Mother at 72 yrs. Father Family Medical History: Cancer Additional Family Medical History / Comment(s): Throat cancer; father at 72 yrs. Brother(s) Family Medical History: Cancer Additional Family Medical History / Comment(s): Liver cancer General Exam Limitations: physical limitation General appearance: alert, in no apparent distress Head exam: Present: atraumatic, normocephalic, normal inspection Eye exam: Present: normal appearance, PERRL, EOMI. Absent: scleral icterus, conjunctival injection, periorbital swelling ENT exam: Present: normal exam, mucous membranes moist Neck exam: Present: normal inspection. Absent: tenderness, meningismus, lymphadenopathy Respiratory exam: Present: normal lung sounds bilaterally. Absent: respiratory distress, wheezes, rales, rhonchi, stridor Cardiovascular Exam: Present: regular rate, normal rhythm, normal heart sounds. Absent: systolic murmur, diastolic murmur, rubs, gallop, clicks GI/Abdominal exam: Present: soft, normal bowel sounds. Absent: distended, tenderness, guarding, rebound, rigid Extremities exam: Present: normal inspection, full ROM, normal capillary refill. Absent: tenderness, pedal edema, joint swelling, calf tenderness Back exam: Present: normal inspection Neurological exam: Present: alert, oriented X3, CN II-XII intact Psychiatric exam: Present: normal affect, normal mood Skin exam: Present: warm, dry, intact, normal color. Absent: rash Course Vital Signs 12/21/22 12/21/22 12/21/22 00:59 03:01 03:11 Temperature 98.4 F Pulse Rate 73 64 Pulse Rate [ 65 Web Design Specialist ] Respiratory 18 18 Rate Blood Pressure 120/77 135/72 O2 Sat by Pulse 98 99 Oximetry - Reevaluation(s) Reevaluation #1: 12/21/22 03:51 Medical records reviewed Reevaluation #2: 12/21/22 05:04 Patient still with chest pain here in the ER Reevaluation #3: 12/21/22 05:05 Patient informed of results and questions answered Reevaluation #4: 12/21/22 03:50 Was pt. sent in by a medical professional or institution (, PA, STONE RIGGER, urgent care, hospital, or half-way...) When possible be specific @ -no Did you speak to anyone other than the patient for history (EMS, parent, family, police, friend...)? What history was obtained from this source @ -no Did you review nursing and triage notes (agree or disagree)? Why? @ -agree Are old charts reviewed (outside hosp., previous admission, EMS record, old EKG, old radiological studies, urgent care reports/EKG's, half-way records)? Report findings @ -yes Differential Diagnosis (chest pain, altered mental status, abdominal pain women, abdominal pain men, vaginal bleeding, weakness, fever, dyspnea, syncope, headache, dizziness, GI bleed, back pain, seizure, CVA, palpatations, mental health, musculoskeletal)? @ -prior EKG interpreted by me (3pts min.). @ -yes X-rays interpreted by me (1pt min.). @ -yes CT interpreted by me (1pt min.). @ -no U/S interpreted by me (1pt. min.). @ -no What testing was considered but not performed or refused? (CT, X-rays, U/S, labs)? Why? @ -none What meds were considered but not given or refused? Why? @ -none Did you discuss the management of the patient with other professionals (professionals i.e. DrJameson, PA, STONE RIGGER, lab, RT, psych nurse, social work manager, master of ceremonies, teacher, inshore undersea warfare officer, mattress spring encaser)? Give summary @ -no Was smoking cessation discussed for >3mins.? @ -no Was critical care preformed (if so, how long)? @ -no Were there social determinants of health that impacted care today? How? (Homelessness, low income, unemployed, alcoholism, drug addiction, transportation, low edu. Level, literacy, decrease access to med. care, correction, rehab)? @ -none Was there de-escalation of care discussed even if they declined (Discuss DNR or withdrawal of care, Hospice)? DNR status @ -no What co-morbidities impacted this encounter? (DM, HTN, Smoking, COPD, CAD, Cancer, CVA, ARF, Chemo, Hep., AIDS, mental health diagnosis, sleep apnea, morbid obesity)? @ -none Was patient admitted / discharged? Hospital course, mention meds given and route, prescriptions, significant lab abnormalities, going to OR and other pertinent info. @ - Undiagnosed new problem with uncertain prognosis? @ -no Drug Therapy requiring intensive monitoring for toxicity (Heparin, Nitro, Insulin, Cardizem)? @ -no Were any procedures done? @ -no Diagnosis/symptom? @ - Acute, or Chronic, or Acute on Chronic? @ -Acute Uncomplicated (without systemic symptoms) or Complicated (systemic symptoms)? @ -Complicated Side effects of treatment? @ -no Exacerbation, Progression, or Severe Exacerbation? @ -exacerbation Poses a threat to life or bodily function? How? (Chest pain, [place], [place], pneumonia, PE, COPD, DKA, ARF, appy, cholecystitis, CVA, Diverticulitis, Homicidal, Suicidal, threat to staff... and all critical care pts) @ -yes Reevaluation #5: 12/21/22 05:05 Differential Chest Pain: Stable Angina, Unstable Angina, STEMI, NSTEMI Aortic Dissection, Pneumothorax, Musculoskeletal, Esophageal Spasm GERD, Cholecystitis, Pancreatitis, Zoster, this is not meant to be an all-inclusive list. - Consultations Consultation #1: Spoke with Dr. Elizabeth who agrees to admit this patient Chest Pain MDM - MDM 67 female to be admitted for cardiac evaluation, history of CAD with current chest pain. Disposition Referrals: Loki Gomes MD [Primary Care Provider] - 1-2 days
[2022-12-21 04:28] LABS: ALT 30 U/L (4-34); AST 31 U/L (14-36); African American GFR (CKD) 71 (>60 ml/min/1.73 sqM); Albumin 3.8 g/dL (3.5-5.0); Alkaline Phosphatase 105 U/L (38-126); Anion Gap 5 mmol/L; Blood Urea Nitrogen 14 mg/dL (7-17); Calcium 9.1 mg/dL (8.4-10.2); Carbon Dioxide 25 mmol/L (22-30); Chloride 108 mmol/L (98-107); Glucose 101 mg/dL (74-99); Magnesium 1.9 mg/dL (1.6-2.3); Non-African American GFR(CKD) 62 (>60 ml/min/1.73 sqM); Potassium 4.4 mmol/L (3.5-5.1); Sodium 138 mmol/L (137-145); Total Bilirubin 0.5 mg/dL (0.2-1.3); Total Protein 6.4 g/dL (6.3-8.2)
[2022-12-21] MEDS ORDERED: ONDANSETRON 4 MG/2 ML VIAL IVP PRN (04:59)
[2022-12-21] MEDS ORDERED: MORPHINE SULFATE 4 MG/ML SYRINGE IV PRN (04:59)
[2022-12-21] MEDS ORDERED: NALOXONE 0.4 MG/ML 1 ML VIAL IV PRN (04:59)
[2022-12-21] MEDS: SODIUM CHLORIDE 0.9% 1,000 ML IV SCH ×2 (05:06→23:15)
[2022-12-21] MEDS: METOPROLOL TARTRATE 12.5 MG TAB PO SCH ×2 (08:50→20:14)
[2022-12-21] MEDS: NITROGLYCERIN OINT 1 INCH/GM PACKET TOPICAL SCH ×2 (08:50→17:13)
[2022-12-21] MEDS ORDERED: polyethylene glycoL 3350 17 GM POWD.PACK PO PRN (09:29)
[2022-12-21] MEDS ORDERED: ZINC SULFATE 220 MG CAP PO PRN (09:29)
[2022-12-21] MEDS ORDERED: ISOSORBIDE MONONITRATE ER 60 MG TAB.ER.24H PO SCH (09:30)
[2022-12-21 09:31] LABS: Glucose,Whole Blood 95 mg/dL (70-110)
[2022-12-21] MEDS ORDERED: DEXTROSE 50% SYRINGE 50 ML IVP PRN ×2 (09:31)
[2022-12-21] MEDS ORDERED: INSULIN ASPART (NovoLOG) 100 UNIT/ML VIAL SQ SCH (09:45)
--- NOTE | 2022-12-21 09:47 | P.CRDCN ---
History of Present Illness History of present illness: HISTORY OF PRESENT ILLNESS: This is a 67-year-old female with a past medical history significant for coronary artery disease, paroxysmal atrial fibrillation, hypertension, hyperlipidemia, and COPD on home oxygen use. Patient used to follow in the office with Dr. Villegas but has not been seen since 2019. We have been asked to see the patient in consultation for chest pain. Patient examined at the bedside. Patient states that she currently resides at an [facility] home. She states last Wednesday she began having chest pain in the middle of her chest that radiates down her arm. She states the pain has been intermittent since last Wednesday. She states the pain is worse with deep inspiration. She states the pain is not increased with chest wall palpation. She does report the pain is worse with exertion. She states that she took Tylenol yesterday which made the pain b kevin. At the time of examination this morning, the patient is complaining of pain and rating it a 9/10. * EKG reveals sinus mechanism with T-wave inversions inferiorly, similar to previous EKG * Chest xray slightly prominent interstitial markings * Laboratory data: WBC 8.3. Hemoglobin 12.9. Platelet count 199. Sodium 138. Potassium 4.4. BUN 14. Creatinine 0.96. Troponin negative 1. * Current home cardiac medications include Eliquis 5 mg twice a day, digoxin 125 g daily, Lipitor 10 mg at night, Imdur 60 mg daily * Most recent echocardiogram obtained in April 2019 revealed ejection fra ction 55-60%, trace to mild mitral regurgitation, mild tricuspid regurgitation * Cardiac catheterization history: July 2016 revealing moderate stenosis involving mid LAD at the origin of the diagonal branch. Medical management was recommended. * Patient underwent dobutamine stress test in April 2019 which was negative for ischemia REVIEW OF SYSTEMS: At the time of my exam: CONSTITUTIONAL: Denies fever or chills. HEENT: Denies blurred vision, vision changes, or eye pain. Denies hemoptysis CARDIOVASCULAR: Denies chest pain. Denies orthopnea. Denies PND. Denies palpitations RESPIRATORY: Denies shortness of breath. GASTROINTESTINAL: Denies abdominal pain. Denies nausea or vomiting. HEMATOLOGIC: Denies bleeding disorders. GENITOURINARY: Denies any blood in urine. SKIN: Denies pruitis. Denies rash. PHYSICAL EXAM: VITAL SIGNS: Reviewed. GENERAL: Well-developed in no acute distress. HEENT: Head is normocephalic. Pupils are equal, round. Sclerae anicteric. Mucous membranes of the mouth are moist. Neck supple. No JVD or thyromegaly LUNGS: Respirations even and unlabored. Lungs essentially clear to auscultation bilaterally. HEART: Regular rate and rhythm. S1 and S2 heard. ABDOMEN: Soft. Nondistended. Nontender. EXTREMITIES: Normal range of motion. No clubbing or cyanosis. Peripheral pulses intact. No lower extremity edema NEUROLOGIC: Awake and alert. Oriented x 3. ASSESSMENT: Chest pain, troponins negative 1 Coronary artery disease with known moderate stenosis of LAD Paroxysmal atrial fibrillation Hypertension Hyperlipidemia Diabetes COPD Chronic hypoxic respiratory failure with home oxygen use Anxiety Depression Schizoaffective disorder Tardive dyskinesia secondary to psychiatric medications PLAN: Trend troponins Resume home cardiac medications Increase atorvastatin to 40 mg at night Begin Nitropaste 0.5 inches every 8 hours Hold Eliquis Obtain 2-D echo to assess cardiac structure and function Pending second troponin value, we will decide between stress testing or cardiac catheterization Further recommendations pending evaluation by Dr. Santoro Nurse practitioner note has been reviewed by physician. Signing provider agrees with the documented findings, assessment, and plan of care. Past Medical History Past Medical History: Atrial Fibrillation, Coronary Artery Disease (CAD), Cancer, Heart Failure, COPD, CVA/TIA, Diabetes Mellitus, Eye Disorder, GERD/Reflux, Hyperlipidemia, Hypertension Additional Past Medical History / Comment(s): NIDDM type II, neuropathy bilateral feet, bronchial asthma, home oxygen prn, obesity, occasional lower extremity edema, past L axillae cellulitis/abscess-lengthy heal, shingles/staph, R eye wet macular degeneration/ L eye dry macular degeneration, uterine cancer with hysterectomy, TIA, hiatal hernia, uterine cancer with hysterectomy, tardive dyskinesia r/t psych medication, migraines, sinus problems, paroxysmal atrial f ibrillation, past urinary retention w/ past chronic mackenzie, UTIs. History of Any Multi-Drug Resistant Organisms: None Reported Past Surgical History: Adenoidectomy, Cholecystectomy, Ear Surgery, Heart Catheterization, Hysterectomy, Tonsillectomy Additional Past Surgical History / Comment(s): I & D L axillae, L eye surgery f or lazy eye, bilateral cataract removal, bilateral myringotomy/tubes, colonoscopy, bronchoscopy, cervical surgery Past Anesthesia/Blood Transfusion Reactions: No Reported Reaction Past Psychological History: Anxiety, Depression, Schizoaffective Disorder Smoking Status: Never smoker Past Alcohol Use History: None Reported Past Drug Use History: None Reported - Past Family History Mother Family Medical History: Myocardial Infarction ([place]) Additional Family Medical History / Comment(s): Mother at 72 yrs. Father Family Medical History: Cancer Additional Family Medical History / Comment(s): Throat cancer; father at 72 yrs. Brother(s) Family Medical History: Cancer Additional Family Medical History / Comment(s): Liver cancer Medications and Allergies Home Medications Medication Instructions Recorded Confirmed Type Atorvastatin [Lipitor] 10 mg PO HS 12/30/16 12/21/22 History Oxybutynin Xl [Ditropan XL] 5 mg PO BID 02/25/17 12/21/22 History Gabapentin [Neurontin] 200 mg PO DAILY 05/19/19 12/21/22 History metFORMIN HCL ER [Glucophage XR] 500 mg PO Q2D@1600 05/19/19 12/21/22 History Cyanocobalamin (Vitamin B-12) 1,000 mcg PO DAILY 04/24/20 12/21/22 History [Vitamin B-12] Vit C/E/Zn/Coppr/Lutein/Zeaxan 1 cap PO DAILY 04/24/20 12/21/22 History [Preservision Areds 2 Softgel] Apixaban [Eliquis] 5 mg PO BID 05/07/21 12/21/22 History Digoxin [Lanoxin] 125 mcg PO DAILY 05/07/21 12/21/22 History Isosorbide Mononitrate ER [Imdur] 60 mg PO DAILY 05/07/21 12/21/22 History Cholecalciferol [Vitamin D3 (25 50 mcg PO DAILY 08/18/21 12/21/22 History Mcg = 1000 Iu)] Deutetrabenazine [Austedo] 9 mg PO BID 08/18/21 12/21/22 History [place] Carbonate 150 mg PO BID 30 Days #60 cap 08/20/21 12/21/22 Rx cloZAPine [Clozaril] 150 mg PO HS 09/03/21 12/21/22 History Citalopram Hydrobromide [CeleXA] 40 mg PO DAILY 10/07/21 12/21/22 History polyethylene glycoL 3350 [Miralax] 17 gm PO DAILY PRN 10/07/21 12/21/22 History Melatonin 10 mg PO HS 12/21/22 12/21/22 History Metoprolol Succinate (ER) [Toprol 12.5 mg PO DAILY 12/21/22 12/21/22 History Xl] Potassium Chloride [Potassium 10 meq PO DAILY 12/21/22 12/21/22 History Chloride ER (K-Dur GEQ)] Zinc Sulfate 50 mg PO DAILY PRN 12/21/22 12/21/22 History Allergies Allergy/AdvReac Type Severity Reaction Status Date / Time bee venom protein (honey bee) Allergy Anaphylaxis Verified 12/21/22 08:45 hydrocodone [From [place]] AdvReac Confusion Verified 12/21/22 08:45 Physical Exam Vitals: Vital Signs Temp Pulse Pulse Resp BP Pulse Ox 12/21/22 07:32 98.4 F 65 18 130/72 97 12/21/22 06:00 65 18 130/72 97 12/21/22 03:11 65 12/21/22 03:01 64 18 135/72 99 12/21/22 00:59 98.4 F 73 18 120/77 98 Intake and Output 12/20/22 12/21/22 12/21/22 22:59 06:59 14:59 Other: Weight 68.039 kg Results 12/21/22 03:07 12/21/22 03:07 Cardiac Enzymes 12/21/22 12/21/22 Range/Units 03:07 03:07 AST 31 (14-36) U/L Troponin I <0.012 (0.000-0.034) ng/mL Coagulation 12/21/22 Range/Units 03:07 PT 10.3 (9.0-12.0) sec APTT 25.9 (22.0-30.0) sec CBC 12/21/22 Range/Units 03:07 WBC 8.3 (3.8-10.6) k/uL RBC 4.08 (3.80-5.40) m/uL Hgb 12.9 (11.4-16.0) gm/dL Hct 38.8 (34.0-46.0) % Plt Count 199 (150-450) k/uL Comprehensive Metabolic Panel 12/21/22 Range/Units 03:07 Sodium 138 (137-145) mmol/L Potassium 4.4 (3.5-5.1) mmol/L Chloride 108 H (98-107) mmol/L Carbon Dioxide 25 (22-30) mmol/L BUN 14 (7-17) mg/dL Creatinine 0.96 (0.52-1.04) mg/dL Glucose 101 H (74-99) mg/dL Calcium 9.1 (8.4-10.2) mg/dL AST 31 (14-36) U/L ALT 30 (4-34) U/L Alkaline Phosphatase 105 (38-126) U/L Total Protein 6.4 (6.3-8.2) g/dL Albumin 3.8 (3.5-5.0) g/dL Current Medications Generic Name Dose Route Start Last Admin Trade Name Freq PRN Reason Stop Dose Admin Sodium Chloride 1,000 mls @ 75 mls/hr 12/21/22 05:00 12/21/22 05:06 Saline 0.9% IV 75 mls/hr .[id number] AMADA Administration Morphine Sulfate 4 mg 12/21/22 04:59 12/21/22 06:07 Morphine Sulfate 4 Mg/Ml Syringe IV 4 mg Q4HR PRN Administration Severe Pain (Scale 7 to 10) Naloxone HCl 0.2 mg 12/21/22 04:59 Naloxone 0.4 Mg/Ml 1 Ml Vial IV Q2M PRN Opioid Reversal Ondansetron HCl 4 mg 12/21/22 04:59 Ondansetron 4 Mg/2 Ml Vial IVP Q8HR PRN Nausea And Vomiting Intake and Output 12/20/22 12/21/22 12/21/22 22:59 06:59 14:59 Other: Weight 68.039 kg 12/21/22 03:07 12/21/22 03:07
[2022-12-21] MEDS ORDERED: LORazepam 0.5 MG TAB PO PRN (10:12)
[2022-12-21] MEDS ORDERED: ACETAMINOPHEN TAB 325 MG TAB PO PRN (10:12)
[2022-12-21] MEDS ORDERED: CALCIUM CARBONATE 500 MG CHEWABLE PO PRN (10:12)
[2022-12-21] MEDS ORDERED: LACTULOSE 20 GM/30 ML CUP PO PRN (10:12)
[2022-12-21] MEDS ORDERED: REGADENOSON 0.4 MG/5 ML SYRINGE IV PRN (10:29)
[2022-12-21] MEDS ORDERED: AMINOPHYLLINE 500 MG/20 ML VIAL IV PRN (10:29)
[2022-12-21] MEDS ORDERED: CAFFEINE CITRATE 60 MG/3 ML VIAL IV PRN (10:29)
[2022-12-21] MEDS ORDERED: APIXABAN 5 MG TAB PO SCH (10:30)
[2022-12-21] MEDS: DEUTETRABENAZINE 9 MG PO SCH ×2 (10:52→20:16)
[2022-12-21] MEDS: OXYBUTYNIN XL 5 MG TAB.ER.24 PO SCH ×2 (10:53→20:15)
[2022-12-21] MEDS: GABAPENTIN 100 MG CAP PO SCH (10:53)
[2022-12-21] MEDS: LITHIUM CARBONATE 150 MG CAP PO SCH ×2 (10:53→20:15)
[2022-12-21] MEDS: CITALOPRAM HYDROBROMIDE 20 MG TAB PO SCH (10:53)
[2022-12-21] MEDS: DIGOXIN 125 MCG TAB PO SCH (10:54)
[2022-12-21 12:44] LABS: Glucose,Whole Blood 109 mg/dL (70-110)
[2022-12-21] MEDS: INSULIN ASPART (NovoLOG) 100 UNIT/ML VIAL SQ SCH ×2 (12:47→17:49)
--- NOTE | 2022-12-21 13:15 | NM ---
"EXAMINATION TYPE: NM stress lexiscan cardiolite DATE OF EXAM: 12/21/2022 COMPARISON: NONE CLINICAL INDICATION: Female, 67 years old with history of CP; TECHNIQUE: After the intravenous administration of 9.7 mCi Tc 99m Sestamibi - Cardiolite resting SPE CT images acquired 55 minutes post injection. The patient received 0.4mg Lexiscan, 25.2 mCi Tc 99m Sestamibi - Stress images obtained [address] injection FINDINGS: Review of stress and rest SPECT images demonstrates small predominantly fixed perfusion defect involv ing the myocardium and septum. Tiny area of reversible change not excluded.. Gated analysis shows no rmal wall motion with an estimated left ventricular ejection fraction of 70 %. IMPRESSION: 1. Cannot exclude some small area of stress-induced reversible ischemia involving the myocardial sept um. Correlate with EKG and clinical findings. A Francis level critical message alert has been initiated for Marvin Elizabeth MD via the [employer] 36 0 | Critical Results System on 12/21/2022 1:13 PM. This message alert has been sent to Marvin Elizabeth MD via the preferences provided by the clinician for the receipt of Radiology Critical Findings. [facility] ID [id number]."
[2022-12-21] MEDS ORDERED: NITROGLYCERIN SL TABS 0.4 MG TAB SUBLINGUAL PRN (14:36)
[2022-12-21] MEDS ORDERED: ALPRAZolam 0.25 MG TAB PO PRN (14:36)
[2022-12-21] MEDS ORDERED: ALPRAZolam 0.5 MG TAB PO PRN (14:36)
[2022-12-21] MEDS: metFORMIN 500 MG TAB PO SCH (16:49)
--- NOTE | 2022-12-21 17:00 | P.HPIM ---
History of Present Illness H&P Date: 12/21/22 Chief Complaint: Chest pain This is a pleasant 67-year-old patient of visiting physician Dr. Gomes. Resident of [facility] . Does use a walker . Chronic stable medical conditions include asthma diabetes mellitus type 2, hypertension, hyperlipidemia, hiatal hernia, peripheral neuropathy, schizoaffective disorder, GERD. Patient's presents with feeling of heavy weight on the chest for about one week. Somewhat constant. No obvious exacerbating or relieving factor. Has been drinking down the left arm. Does get episodes of shortness of breath. Does feel tired. No perspiration. Review of systems: GEN.: Tired EYES: None HEENT: None NECK: None RESPIRATORY: As above CARDIOVASCULAR: As above GASTROINTESTINAL: None GENITOURINARY: None MUSCULOSKELETAL: Joint pains LYMPHATICS: None HEMATOLOGICAL: None PSYCHIATRY: None NEUROLOGICAL: Use a walker Past medical history to include: COVID-19 positive diagnosed on 04/03/2021. Persistent bronchial asthma, daniela betes mellitus type 2, hypertension, hyperlipidemia, obesity, hiatal hernia, idiopathic peripheral neuropathy, GERD, schizoaffective disorder bipolar type, atrial fibrillation, macular degeneration, uterine cancer with hysterectomy, tardive dyskinesia, use a walker Social history: Lives at the [facility], does use a walker. Stopped drinking alcohol in 2006. Never smoked. Physical examination: VITAL SIGNS: 98.1, 66, 16, 135/80, 96% room air GENERAL: BMI 26.6, laying in bed, awake EYES: Pupils equal. Conjunctiva normal. HEENT: External appearance of nose and ears normal, oral cavity grossly normal. Missing several teeth NECK: JVD not raised; masses not palpable. HEART: First and second heart sounds are normal; no edema. LUNGS: Respiratory rate normal. Lungs fair entry ABDOMEN: Soft, nontender, liver spleen not palpable, no masses palpable. PSYCH: Alert and oriented x3; mood and affect anxious. MUSCULOSKELETAL:No Clubbing/cyanosis;muscles-grossly intact NEUROLOGICAL: Cranial nerves grossly intact; no facial asymmetry, power and sensation grossly intact. LYMPHATICS: No lymph nodes palpable in the axilla and neck INVESTIGATIONS, reviewed in the clinical context: White count 8.3 hemoglobin 12.9 platelets 199 sodium 138 potassium 4.4 BUN 14 creatinine 0.96 Troponin I 3 negative Chest x-ray film: Some interstitial prominence EKG tracing personally reviewed by me-no sinus rhythm. Some flipped T waves in inferior leads. Assessment and plan: -Probable unstable angina with multiple risk factors Patient's an EKG changes. Seen by cardiology. Nuclear stress test ordered -Moderate persistent asthma: Stable. -Diabetes mellitus type 2, on oral hypoglycemic. metformin . Follow Accu-Cheks -Essential Hypertension Lopressor 12.5 by mouth twice a day -Hyperlipidemia Lipitor 10 mg daily at bedtime -Diabetic peripheral neuropathy Neurontin 200 mg daily -GERD Tums when necessary -Paroxysmal atrial fibrillation currently sinus rhythm Lopressor 12.5 by mouth twice a day. Eliquis 5 mg twice a day-currently on hold -Schizoaffective disorder Clozaril 150 mg daily at bedtime Celexa 40 mg daily. [place] -Chronic urinary stress incontinence Ditropan XL 5 mg twice a day -Tardive dyskinesia due to medications austedo -Chronic gait dysfunction, uses a walker at baseline Fall precautions -Full code Home medications continued. Await stress test results. Proceed accordingly. Past Medical History Past Medical History: Atrial Fibrillation, Coronary Artery Disease (CAD), Cancer, Heart Failure, COPD, CVA/TIA, Diabetes Mellitus, Eye Disorder, GERD/Reflux, Hyperlipidemia, Hypertension Additional Past Medical History / Comment(s): NIDDM type II, neuropathy bilateral feet, bronchial asthma, home oxygen prn, obesity, occasional lower extremity edema, past L axillae cellulitis/abscess-lengthy heal, shingles/staph, R eye wet macular degeneration/ L eye dry macular degeneration, uterine cancer with hysterectomy, TIA, hiatal hernia, uterine cancer with hysterectomy, tardive dyskinesia r/t psych medication, migraines, sinus problems, paroxysmal atrial fibrillation, past urinary retention w/ past chronic mackenzie, UTIs. History of Any Multi-Drug Resistant Organisms: None Reported Past Surgical History: Adenoidectomy, Cholecystectomy, Ear Surgery, Heart Catheterization, Hysterectomy, Tonsillectomy Additional Past Surgical History / Comment(s): I & D L axillae, L eye surgery for lazy eye, bilateral cataract removal, bilateral myringotomy/tubes, colonoscopy, bronchoscopy, cervical surgery Past Anesthesia/Blood Transfusion Reactions: No Reported Reaction Past Psychological History: Anxiety, Depression, Schizoaffective Disorder Smoking Status: Never smoker Past Alcohol Use History: None Reported Past Drug Use History: None Reported - Past Family History Mother Family Medical History: Myocardial Infarction (MT) Additional Family Medical History / Comment(s): Mother at 72 yrs. Father Family Medical History: Cancer Additional Family Medical History / Comment(s): Throat cancer; father at 72 yrs. Brother(s) Family Medical History: Cancer Additional Family Medical History / Comment(s): Liver cancer Medications and Allergies Home Medications Medication Instructions Recorded Confirmed Type Atorvastatin [Lipitor] 10 mg PO HS 12/30/16 12/21/22 History Oxybutynin Xl [Ditropan XL] 5 mg PO BID 02/25/17 12/21/22 History Gabapentin [Neurontin] 200 mg PO DAILY 05/19/19 12/21/22 History metFORMIN HCL ER [Glucophage XR] 500 mg PO Q2D@1600 05/19/19 12/21/22 History Cyanocobalamin (Vitamin B-12) 1,000 mcg PO DAILY 04/24/20 12/21/22 History [Vitamin B-12] Vit C/E/Zn/Coppr/Lutein/Zeaxan 1 cap PO DAILY 04/24/20 12/21/22 History [Preservision Areds 2 Softgel] Apixaban [Eliquis] 5 mg PO BID 05/07/21 12/21/22 History Digoxin [Lanoxin] 125 mcg PO DAILY 05/07/21 12/21/22 History Isosorbide Mononitrate ER [Imdur] 60 mg PO DAILY 05/07/21 12/21/22 History Cholecalciferol [Vitamin D3 (25 50 mcg PO DAILY 08/18/21 12/21/22 History Mcg = 1000 Iu)] Deutetrabenazine [Austedo] 9 mg PO BID 08/18/21 12/21/22 History [place] Carbonate 150 mg PO BID 30 Days #60 cap 08/20/21 12/21/22 Rx cloZAPine [Clozaril] 150 mg PO HS 09/03/21 12/21/22 History Citalopram Hydrobromide [CeleXA] 40 mg PO DAILY 10/07/21 12/21/22 History polyethylene glycoL 3350 [Miralax] 17 gm PO DAILY PRN 10/07/21 12/21/22 History Melatonin 10 mg PO HS 12/21/22 12/21/22 History Metoprolol Succinate (ER) [Toprol 12.5 mg PO DAILY 12/21/22 12/21/22 History Xl] Potassium Chloride [Potassium 10 meq PO DAILY 12/21/22 12/21/22 History Chloride ER (K-Dur GEQ)] Zinc Sulfate 50 mg PO DAILY PRN 12/21/22 12/21/22 History Allergies Allergy/AdvReac Type Severity Reaction Status Date / Time bee venom protein (honey bee) Allergy Anaphylaxis Verified 12/21/22 08:45 hydrocodone [From Silva] AdvReac Confusion Verified 12/21/22 08:45 Physical Exam Vitals: Vital Signs Temp Pulse Pulse Resp BP Pulse Ox 12/21/22 07:32 98.4 F 65 18 130/72 97 12/21/22 06:00 65 18 130/72 97 12/21/22 03:11 65 12/21/22 03:01 64 18 135/72 99 12/21/22 00:59 98.4 F 73 18 120/77 98 Intake and Output 12/20/22 12/21/22 12/21/22 22:59 06:59 14:59 Other: Weight 68.039 kg Results CBC & Chem 7: 12/21/22 03:07 12/21/22 03:07 Labs: Abnormal Lab Results - Last 24 Hours (Table) 12/21/22 Range/Units 03:07 Chloride 108 H (98-107) mmol/L Glucose 101 H (74-99) mg/dL
--- NOTE | 2022-12-21 17:20 | CA ---
Transthoracic Echo Report Name: Diana Corey Age: 67 Gender: F : 1955 Exam Date: 12/21/2022 10:32 Exam Location: [place] Echo Ht (in): 63 Wt (lb): 150 Ordering Physician: Yas Meng Attending/Referring Phys: [id number], [employer] Supervisor Ana Beckham RDCS Procedure CPT: Indications: LV function Cardiac Hx: Technical Quality: Fair Contrast 1: Total Dose (mL): Contrast 2: Total Dose (mL): MEASUREMENTS (Male / Female) Normal Values 2D ECHO LV Diastolic Diameter PLAX 4.0 cm 4.2 - 5.9 / 3.9 - 5.3 cm LV Systolic Diameter PLAX 2.5 cm IVS Diastolic Thickness 1.1 cm 0.6 - 1.0 / 0.6 - 0.9 cm LVPW Diastolic Thickness 1.2 cm 0.6 - 1.0 / 0.6 - 0.9 cm LV Relative Wall Thickness 0.6 RV Internal Dim ED PLAX 2.7 cm LA Volume 58.2 cm??? 18 - 58 / 22 - 52 cm??? M-MODE Aortic Root Diameter MM 2.8 cm LA Systolic Diameter MM 3.7 cm LA Ao Ratio MM 1.3 AV Cusp Separation MM 2.1 cm DOPPLER AV Peak Velocity 145.4 cm/s AV Peak Gradient 8.5 mmHg AV Mean Velocity 97.0 cm/s AV Mean Gradient 4.2 mmHg AV Velocity Time Integral 32.5 cm LVOT Peak Velocity 104.8 cm/s LVOT Peak Gradient 4.4 mmHg LVOT Velocity Time Integral 20.0 cm MV Area PHT 2.2 cm??? Mitral E Point Velocity 52.7 cm/s Mitral A Point Velocity 73.3 cm/s Mitral E to A Ratio 0.7 MV Deceleration Time 345.2 ms MV E' Velocity 9.6 cm/s Mitral E to MV E' Ratio 5.5 TR Peak Velocity 236.8 cm/s TR Peak Gradient 22.4 mmHg Right Ventricular Systolic Press 26.9 mmHg FINDINGS Left Ventricle Mildly increased left ventricular wall thickness. Left ventricular cavity size normal. Normal left ventricular systolic function with no obvious regional wall motion abnormalities. Left ventricular ejection fraction is estimated at 55-60 %. Right Ventricle Normal right ventricular size and function. Right ventricular systolic pressure within normal limits. Right Atrium Normal right atrial size. Left Atrium Mildly increased left atrial volume. Mitral Valve Structurally normal mitral valve. Mitral valve thickened. Mild mitral annular calcification. Trace mitral regurgitation. Aortic Valve Trileaflet aortic valve. No aortic valve stenosis or regurgitation. Tricuspid Valve Structurally normal tricuspid valve. Mild tricuspid regurgitation. Pulmonic Valve Structurally normal pulmonic valve. Pericardium No pericardial effusion. Aorta Normal size aortic root and proximal ascending aorta. CONCLUSIONS Mild increased left ventricular wall thickness Left ventricular ejection fraction 55-60% Mild mitral annular calcification Mild tricuspid regurgitation Previewed by: Dr. Aydin Santoro DO (Electronically Signed) Final Date: 21 December 2022 17:18
[2022-12-21 17:34] LABS: Glucose,Whole Blood 123 mg/dL (70-110)
[2022-12-21] MEDS ORDERED: MELATONIN 5 MG TABLET PO SCH (21:00)
[2022-12-21] MEDS ORDERED: ATORVASTATIN 40 MG TAB PO SCH (21:00)
[2022-12-21] MEDS ORDERED: cloZAPine 100 MG TAB PO SCH (21:00)
[2022-12-21 22:19] LABS: Glucose,Whole Blood 121 mg/dL (70-110)
[2022-12-21] MEDS: SODIUM CHLORIDE 0.9% 1,000 ML in EMPTY BAG 1 BAG IV SCH (23:16)
[2022-12-22] MEDS: NITROGLYCERIN OINT 1 INCH/GM PACKET TOPICAL SCH ×3 (00:18→16:22)
[2022-12-22] MEDS ORDERED: ATORVASTATIN 80 MG TAB PO ONE (05:00)
[2022-12-22] MEDS ORDERED: ASPIRIN 325 MG TAB PO ONE (05:00)
[2022-12-22 06:15] LABS: Glucose,Whole Blood 118 mg/dL (70-110)
[2022-12-22] MEDS: INSULIN ASPART (NovoLOG) 100 UNIT/ML VIAL SQ SCH ×2 (06:20→12:27)
[2022-12-22] MEDS ORDERED: HEPARIN SODIUM,PORCINE 10,000 UNIT in SODIUM CHLORIDE 0.9% 1,000 ML IRRIGATION PRN (07:00)
[2022-12-22] MEDS ORDERED: HEPARIN SODIUM,PORCINE (1 ML) 2,500 UNIT in SODIUM CHLORIDE 0.9% 250 ML IRRIGATION PRN (07:00)
--- NOTE | 2022-12-22 07:12 | CA ---
Lexiscan Nuclear Stress Test Report Name: Diana Corey Exam Date: 12/21/2022 11:50 Exam Location: [place] Stress Ht (in): 63 Wt (lb): 150 BSA: 1.71 Ordering Phys: Yas Meng Referring Phys: DENISE, Technologist: YAZMIN,, Age: 67 Gender: F : 1955 Procedure CPT: Indications: Reflex order-Stress test ICD-10 Codes: Patient History: Chest pain and shortness of breath Medications: Meds past 24 hrs: Pretest Chest Pain: STRESS TEST Lexiscan Protocol Exercise Duration (min:sec): 01:[address] Depressions (mm): Angina Score: Fields Score: Resting HR (bpm): 58 Peak HR (bpm): 69 Resting BP (mmHg): 135 / 71 Peak BP (mmHg): / 64 MPHR: 154 Target HR: 131 % MPHR: 45 METS: 1.0 Total Dose: Peak Dose: Atropine: Double Product: BP Response: Stress Termination: INFUSION COMPLETE Stress Symptoms: CHEST TIGHTNESS Stress Summary: ECG ANALYSIS Resting ECG: Stress ECG: CONCLUSIONS At baseline EKG showed normal sinus rhythm, normal axis, nonspecific 0.[address] depressions in the inferior and lateral leads. Patient recieved IV infusion of Lexiscan 0.4mg and at peak infusion EKG showed no significant change from baseline. Conclusions: 1. Nonspecific stress EKG portion second baseline EKG abnormalities. 2. Nuclear imaging to be reported separately. Dr. Aydin Santoro DO (Electronically Signed) Final Date: 22 December 2022 07:10
[2022-12-22] MEDS: CITALOPRAM HYDROBROMIDE 20 MG TAB PO SCH (08:42)
[2022-12-22] MEDS: DIGOXIN 125 MCG TAB PO SCH (08:42)
[2022-12-22] MEDS: OXYBUTYNIN XL 5 MG TAB.ER.24 PO SCH (08:42)
[2022-12-22] MEDS: GABAPENTIN 100 MG CAP PO SCH (08:42)
[2022-12-22] MEDS: METOPROLOL TARTRATE 12.5 MG TAB PO SCH (08:45)
[2022-12-22] MEDS: LITHIUM CARBONATE 150 MG CAP PO SCH (08:45)
[2022-12-22] MEDS ORDERED: CYANOCOBALAMIN 500 MCG TAB PO SCH (09:00)
[2022-12-22] MEDS ORDERED: VIT A,C & E-LUTEIN-MINERALS 1 EACH TAB PO SCH (09:00)
[2022-12-22] MEDS ORDERED: CHOLECALCIFEROL 25 MCG (1000 IU) TABLET PO SCH (09:00)
[2022-12-22 09:13] LABS: Basophils # (A) 0.03 X 10*3/uL (0.00-0.10); Basophils % (A) 0.3 %; Eosinophils % (A) 2.2 %; HCT 43.3 % (37.2-50.0); HGB 13.9 d/dL (12.0-17.0); Lymphocytes # (A) 3.31 X 10*3/uL (0.90-5.00); Lymphocytes % (A) 36.9 %; MCH 30.5 pg (27.0-32.0); MCHC 32.1 d/dL (32.0-37.0); MCV 95.2 FL (80.0-97.0); Mean Platelet Volume 10.6 FL (9.5-12.2); Monocytes # (A) 0.47 X 10*3/uL (0.20-1.00); Monocytes % (A) 5.2 %; NRBC Per 100 WBC 0 X 10*3/uL (0.00-0.01); Neutrophils # (A) 4.93 X 10*3/uL (1.80-7.70); Neutrophils % (A) 55.1 %; Platelet Count 257 X 10*3/uL (140-440); RBC 4.55 X 10*6/uL (4.10-5.60); RDW 12.9 % (11.5-14.5); WBC 8.97 X 10*3/uL (4.50-10.00)
[2022-12-22 09:16] LABS: ALT 30 U/L (8-49); AST 30 U/L (13-35); Albumin 4.1 d/dL (3.8-4.9); Albumin/Globulin Ratio 2.05 Ratio (1.60-3.17); Alkaline Phosphatase 107 U/L (41-126); BUN/Creat Ratio 13.67 Ratio (12.00-20.00); Blood Urea Nitrogen 12.3 mg/dL (9.0-27.0); Calcium 9.3 mg/dL (8.7-10.3); Carbon Dioxide 23.2 mmol/L (21.6-31.8); Chloride 106 mmol/L (96-109); Glucose 124 mg/dL (70-110); Phosphorus 3.9 mg/dL (2.4-5.1); Potassium 4.5 mmol/L (3.5-5.5); Sodium 139 mmol/L (135-145); Total Bilirubin 0.6 mg/dL (0.3-1.2); Total Protein 6.1 d/dL (6.2-8.2)
[2022-12-22] MEDS: DEUTETRABENAZINE 9 MG PO SCH (09:18)
[2022-12-22] MEDS ORDERED: fentaNYL (PF) 50 MCG/ML 2 ML AMP ONE (11:00)
[2022-12-22] MEDS ORDERED: VERAPAMIL 2.5 MG/ML 2 ML AMP ONE (11:00)
[2022-12-22] MEDS ORDERED: LIDOCAINE 1% INJ 10MG/ML (5 ML VIAL-PF) SQ ONE (11:02)
[2022-12-22] MEDS ORDERED: fentaNYL (PF) 50 MCG/ML 2 ML AMP IVP ONE (11:03)
[2022-12-22] MEDS ORDERED: VERAPAMIL SYRINGE (5 MG/10 ML) INTRAARTER ONE (11:03)
[2022-12-22] MEDS ORDERED: MIDAZOLAM 2 MG/2 ML VIAL IVP ONE (11:03)
[2022-12-22] MEDS ORDERED: IV FLUID CONTINUATION 1,000 ML IV ONE (11:04)
[2022-12-22] MEDS ORDERED: HEPARIN SODIUM 1,000 UN/ML (10ML VL) IV ONE (11:10)
[2022-12-22] MEDS ORDERED: IOPAMIDOL-370 100ML BTL INJ ONE (11:15)
[2022-12-22 11:36] VITALS: TEMP 97.7
--- NOTE | 2022-12-22 11:43 | P.CARDCATH ---
Description of Procedure: PROCEDURES PERFORMED: Left heart catheterization, bilateral coronary angiography, ultrasound guided arterial access INDICATION: Abnormal stress test CONSENT:I have discussed the risks, benefits and alternative therapies for the above-mentioned procedure and for both sedation/analgesia as well as necessary blood product administration, if indicated, as they pertain to this patient. The patient has indicated understanding and acceptance of the risks and procedures discussed. PROCEDURE: After the risks, benefits and alternatives of the above mentioned procedure explained in detail with the patient, informed consent was obtained. Patient was taken to the catheterization lab and prepped and draped in usual fashion. Ultrasound guidance was used to assess for arterial access. 1% lidocaine was used to anesthetize the right radial artery. A 6-Slovak sheath was placed in the right radial artery using modified Seldinger technique and ultrasound guidance. Left coronary angiography was performed with a 5-[place]ov[place] JL 3.5 catheter and right coronary angiography was performed with a 5-[place]ov[place] JR5 catheter in various views. A 5-[place]ov[place] FR5 catheter was inserted into the left ventricle and pressure measurements were obtained. The right radial sheath was removed and a TR band was placed with hemostasis achieved. The patient to lerated the procedure well. Patient was transported back to the post catheterization holding area in stable condition. Conscious Sedation: Patient was monitored under the direct supervision of myself for conscious sedation using Versed and fentanyl for a total duration of 13 minutes HEMODYNAMICS: Aorta: 131/78 LV: 1:30/5, LVDP 13 SELECTIVE CORONARY ARTERIOGRAPHY: LEFT MAIN: The left main is a large caliber vessel which bifurcates into the LAD and circumflex. There is no significant stenosis. LEFT ANTERIOR DESCENDING CORONARY ARTERY: LAD is a large caliber vessel which wraps around to the apex. There is a mild 10- 20% mid LAD stenosis and otherwise normal. LEFT CIRCUMFLEX CORONARY ARTERY: Left circumflex is a moderate caliber vessel without significant stenosis. RIGHT CORONARY ARTERY: The right coronary artery is a large caliber vessel which gives off a PDA and PLV branch and is the dominant vessel. There is mild 10-20% mid RCA stenosis. FINAL IMPRESSION: 1. Mild CAD with 10-20% mid LAD and 10-20% mid RCA stenosis but otherwise normal coronary arteries. 2. Normal left sided filling pressures PLAN: 1. Aggressive risk factor modification per most recent ACC/AHA guidelines. 2. Follow-up in the office in 1-2 weeks.
[2022-12-22 12:14] LABS: Glucose,Whole Blood 114 mg/dL (70-110)
[2022-12-22 14:10] VITALS: RESP 16
[2022-12-22] MEDS: SODIUM CHLORIDE 0.9% 1,000 ML in EMPTY BAG 1 BAG IV SCH (15:07)
[2022-12-22 15:28] VITALS: BP 102/67; PULSE 53
[2022-12-22] MEDS: metFORMIN 500 MG TAB PO SCH (16:22)
--- NOTE | 2022-12-22 17:16 | P.DS ---
Providers Date of admission: 12/21/22 05:00 Expected date of discharge: 12/22/22 Attending physician: Marvin Elizabeth Consults: 12/21/22 04:59 Consult Physician Routine Consulting Provider: Ninoska Oleary Consult Reason/Comments: cp Do you want consulting provider notified?: Yes Primary care physician: [facility] [place] Hospital Course: Chief Complaint: Chest pain This is a pleasant 67-year-old patient of visiting physician Dr. Gomes. Resident of [facility] . Does use a walker . Chronic stable medical conditions include asthma diabetes mellitus type 2, hypertension, hyperlipidemia, hiatal hernia, peripheral neuropathy, schizoaffective disorder, GERD. Patient's presents with feeling of heavy weight on the chest for about one week. Somewhat constant. No obvious exacerbating or relieving factor. Has been drinking down the left arm. Does get episodes of shortness of breath. Does feel tired. No perspiration. 12/22/2022: Patient had abnormal nuclear stress test. Underwent cardiac catheterization today. Found to have mild disease. Beta kathy Lipitor added. We will follow-up with cartilage outpatient. Discussed with patient. Past medical history to include: COVID-19 positive diagnosed on 04/03/2021. Persistent bronchial asthma, diabetes mellitus type 2, hypertension, hyperlipidemia, obesity, hiatal hernia, idiopathic peripheral neuropathy, GERD, schizoaffective disorder bipolar type, atrial fibrillation, macular degeneration, uterine cancer with hysterectomy, tardive dyskinesia, use a walker Social history: Lives at the [facility], does use a walker. Stopped drinking alcohol in 2006. Never smoked. Physical examination: VITAL SIGNS: 97.7, 54, 16, 112.73, 97% room air GENERAL: BMI 26.6, comfortable EYES: Pupils equal. Conjunctiva normal. HEENT: External appearance of nose and ears normal, oral cavity grossly normal. Missing several teeth NECK: JVD not raised; masses not palpable. HEART: First and second heart sounds are normal; no edema. LUNGS: Respiratory rate normal. Lungs fair entry ABDOMEN: Soft, nontender, liver spleen not palpable, no masses palpable. PSYCH: Alert and oriented x3; mood and affect anxious. MUSCULOSKELETAL:No Clubbing/cyanosis;muscles-grossly intact INVESTIGATIONS, reviewed in the clinical context: Cardiac catheterization: Mild CAD with 10-20% mid LAD, 10-20% mid RCA stenosis. 2-D echocardiogram: EF 55-60%. Lexiscan Cardiolite: Cannot exclude small area of stress-induced reversible ischemia in the myocardial septum. December 22: White count 8.9 hemoglobin 13.9 platelets 257 potassium 4.5 creatinine 0.9 White count 8.3 hemoglobin 12.9 platelets 199 sodium 138 potassium 4.4 BUN 14 creatinine 0.96 Troponin I 3 negative Chest x-ray film: Some interstitial prominence EKG tracing personally reviewed by me-no sinus rhythm. Some flipped T waves in inferior leads. Assessment and plan: -Probable unstable angina with multiple risk factors Beta kathy added -Mild CAD with 10-20% mid LAD, 10-20% mid RCA stenosis.-Per cardiac catheterization Aspirin. Lopressor. -Moderate persistent asthma: Stable. -Diabetes mellitus type 2, on oral hypoglycemic. metformin . Follow Accu-Cheks -Essential Hypertension Lopressor 12.5 by mouth twice a day -Hyperlipidemia Lipitor 10 mg daily at bedtime -Diabetic peripheral neuropathy Neurontin 200 mg daily -GERD Tums when necessary -Paroxysmal atrial fibrillation currently sinus rhythm Lopressor 12.5 by mouth twice a day. Eliquis 5 mg twice a day-currently on hold -Schizoaffective disorder Clozaril 150 mg daily at bedtime Celexa 40 mg daily. [place] -Chronic urinary stress incontinence Ditropan XL 5 mg twice a day -Tardive dyskinesia due to medications austedo -Chronic gait dysfunction, uses a walker at baseline Fall precautions -Full code Disposition: Assisted-living. Rex Mijares Plan - Discharge Summary Discharge Rx Participant: No New Discharge Prescriptions: New Metoprolol Tartrate [Lopressor] 12.5 mg PO BID #60 tab Nitroglycerin Sl Tabs [Nitrostat] 0.4 mg SUBLINGUAL Q5M PRN #30 tab PRN Reason: Chest Pain Atorvastatin [Lipitor] 40 mg PO HS #30 tab Continue Oxybutynin Xl [Ditropan XL] 5 mg PO BID Gabapentin [Neurontin] 200 mg PO DAILY metFORMIN HCL ER [Glucophage XR] 500 mg PO Q2D@1600 Vit C/E/Zn/Coppr/Lutein/Zeaxan [Preservision Areds 2 Softgel] 1 cap PO DAILY Cyanocobalamin (Vitamin B-12) [Vitamin B-12] 1,000 mcg PO DAILY Apixaban [Eliquis] 5 mg PO BID Cholecalciferol [Vitamin D3 (25 Mcg = 1000 Iu)] 50 mcg PO DAILY cloZAPine [Clozaril] 150 mg PO HS polyethylene glycoL 3350 [Miralax] 17 gm PO DAILY PRN PRN Reason: hold for loose stool Metoprolol Succinate (ER) [Toprol XL] 12.5 mg PO DAILY Isosorbide Mononitrate ER [Imdur] 60 mg PO DAILY Digoxin [Lanoxin] 125 mcg PO DAILY Deutetrabenazine [Austedo] 9 mg PO BID [place] Carbonate 150 mg PO BID 30 Days #60 cap Citalopram Hydrobromide [CeleXA] 40 mg PO DAILY Potassium Chloride [Potassium Chloride ER (K-Dur GEQ)] 10 meq PO DAILY Melatonin 10 mg PO HS Zinc Sulfate 50 mg PO DAILY PRN PRN Reason: SUPPLEMENT Discontinued Atorvastatin [Lipitor] 10 mg PO HS Discharge Medication List Oxybutynin Xl [Ditropan XL] 5 mg PO BID 02/25/17 [History] Gabapentin [Neurontin] 200 mg PO DAILY 05/19/19 [History] metFORMIN HCL ER [Glucophage XR] 500 mg PO Q2D@1600 05/19/19 [History] Cyanocobalamin (Vitamin B-12) [Vitamin B-12] 1,000 mcg PO DAILY 04/24/20 [History] Vit C/E/Zn/Coppr/Lutein/Zeaxan [Preservision Areds 2 Softgel] 1 cap PO DAILY 04/24/20 [History] Apixaban [Eliquis] 5 mg PO BID 05/07/21 [History] Digoxin [Lanoxin] 125 mcg PO DAILY 05/07/21 [History] Isosorbide Mononitrate ER [Imdur] 60 mg PO DAILY 05/07/21 [History] Cholecalciferol [Vitamin D3 (25 Mcg = 1000 Iu)] 50 mcg PO DAILY 08/18/21 [History] Deutetrabenazine [Austedo] 9 mg PO BID 08/18/21 [History] [place] Carbonate 150 mg PO BID 30 Days #60 cap 08/20/21 [Rx] cloZAPine [Clozaril] 150 mg PO HS 09/03/21 [History] Citalopram Hydrobromide [CeleXA] 40 mg PO DAILY 10/07/21 [History] polyethylene glycoL 3350 [Miralax] 17 gm PO DAILY PRN 10/07/21 [History] Melatonin 10 mg PO HS 12/21/22 [History] Metoprolol Succinate (ER) [Toprol XL] 12.5 mg PO DAILY 12/21/22 [History] Potassium Chloride [Potassium Chloride ER (K-Dur GEQ)] 10 meq PO DAILY 12/21/22 [History] Zinc Sulfate 50 mg PO DAILY PRN 12/21/22 [History] Atorvastatin [Lipitor] 40 mg PO HS #30 tab 12/22/22 [Rx] Metoprolol Tartrate [Lopressor] 12.5 mg PO BID #60 tab 12/22/22 [Rx] Nitroglycerin Sl Tabs [Nitrostat] 0.4 mg SUBLINGUAL Q5M PRN #30 tab 12/22/22 [Rx] Follow up Appointment(s)/Referral(s): Aydin Santoro DO [STAFF PHYSICIAN] - 01/20/23 3:15 pm Loki Gomes MD [Primary Care Provider] - 1-2 days Patient Instructions/Handouts: Heart Catheterization (DC) Activity/Diet/Wound Care/Special Instructions: Set up wheelchair van at discharge: [phone] - billed to patient. Discharge Disposition: TRANSFER TO SNF/ECF
== END 2022-12-22 16:33 ==
LOC: EC 00:58 → 6NMEDSUR 05:00
PROVIDERS: ADMIT Hospitalist; ATTEND Hospitalist
DX: R07.9 Chest pain, unspecified (principal); I25.10 Atherosclerotic heart disease of native coronary artery without angina pectoris; I48.0 Paroxysmal atrial fibrillation; I11.0 Hypertensive heart disease with heart failure; I50.9 Heart failure, unspecified; E11.42 Type 2 diabetes mellitus with diabetic polyneuropathy; J45.40 Moderate persistent asthma, uncomplicated; N39.3 Stress incontinence (female) (male); R26.9 Unspecified abnormalities of gait and mobility; J44.9 Chronic obstructive pulmonary disease, unspecified; K21.9 Gastro-esophageal reflux disease without esophagitis; E78.5 Hyperlipidemia, unspecified; G43.909 Migraine, unspecified, not intractable, without status migrainosus; F25.0 Schizoaffective disorder, bipolar type; F41.9 Anxiety disorder, unspecified; J96.11 Chronic respiratory failure with hypoxia; G24.01 Drug induced subacute dyskinesia; E66.9 Obesity, unspecified; Z68.26 Body mass index [BMI] 26.0-26.9, adult; Z85.42 Personal history of malignant neoplasm of other parts of uterus; Z86.16 Personal history of COVID-19; Z86.73 Personal history of transient ischemic attack (TIA), and cerebral infarction without residual deficits; Z87.440 Personal history of urinary (tract) infections; Z99.81 Dependence on supplemental oxygen; Z79.899 Other long term (current) drug therapy; Z79.84 Long term (current) use of oral hypoglycemic drugs; Z79.01 Long term (current) use of anticoagulants; Z79.51 Long term (current) use of inhaled steroids; Z88.5 Allergy status to narcotic agent
CPT/HCPCS: 96374; 99285; 36415; 93005; 93017; 93306; 93458; 76937; 80053 ×2; 83735 ×2; 84100; 84484; 85025 ×2; 85610; 85730; 71046; 78452; G0378 ×2; C1769; C1894; A9500; J2250; J2270; J2001; J3010; S0136; J1644; J2785; Q9967

== ENCOUNTER 2024-11-28 10:44 | Observation (INO) | payer MEDICARE, OTHER ==
--- NOTE | 2024-11-28 11:20 | ED ---
General Adult HPI - General Chief complaint: Chest Pain Stated complaint: Chest pain Time Seen by Provider: 11/28/24 11:00 Source: patient, EMS, RN notes reviewed Mode of arrival: EMS Limitations: no limitations - History of Present Illness Initial comments: Patient is a 69-year-old female present to the emergency department with concerns with chest discomfort. Onset of symptoms was around 2 AM. Discomfort feels like pressure and has been waxing and waning. Discomfort is 7/10. Associated dyspnea. No nausea or diaphoresis. Patient has had a similar symptoms previously however unclear why. Patient is on Eliquis, digoxin and lithium. As well as other medications. - Related Data Home Medications Medication Instructions Recorded Confirmed Gabapentin [Neurontin] 200 mg PO DAILY 05/19/19 11/28/24 metFORMIN HCL ER [Glucophage XR] 500 mg PO Q2D@1600 05/19/19 11/28/24 Vit C/E/Zn/Coppr/Lutein/Zeaxan 1 cap PO DAILY 04/24/20 11/28/24 [Preservision Areds 2 Softgel] Apixaban [Eliquis] 5 mg PO BID 05/07/21 11/28/24 Digoxin [Lanoxin] 125 mcg PO DAILY 05/07/21 11/28/24 Isosorbide Mononitrate ER [Imdur] 60 mg PO DAILY 05/07/21 11/28/24 cloZAPine [Clozaril] 100 mg PO HS 09/03/21 11/28/24 Citalopram Hydrobromide [CeleXA] 40 mg PO DAILY 10/07/21 11/28/24 Metoprolol Succinate (ER) [Toprol 12.5 mg PO DAILY 12/21/22 11/28/24 XL] Potassium Chloride [Potassium 10 meq PO DAILY 12/21/22 11/28/24 Chloride ER (K-Dur GEQ)] Albuterol Nebulized [Ventolin 2.5 mg INHALATION RT-TID PRN 11/28/24 11/28/24 Nebulized] Deutetrabenazine [Austedo Xr] 24 mg PO DAILY 11/28/24 11/28/24 Furosemide [Lasix] 20 mg PO DAILY 11/28/24 11/28/24 Hyoscyamine Sulfate [Hyoscyamine 0.125 mg SUBLINGUAL TID PRN 11/28/24 11/28/24 Sulfate SL] Magnesium Hydroxide [Milk of 2,400 mg PO DAILY PRN 11/28/24 11/28/24 Magnesia] Sennosides/Docusate Sodium [Senna 2 tab PO HS 11/28/24 11/28/24 Plus 8.6-50 mg Tablet] cloZAPine [Clozaril] 25 mg PO HS 11/28/24 11/28/24 guaiFENesin-DM 600/30MG [Mucinex 1 tab PO BID PRN 11/28/24 11/28/24 Dm] Previous Rx's Medication Instructions Recorded [place] Carbonate 150 mg PO BID 30 Days #60 cap 08/20/21 Atorvastatin [Lipitor] 40 mg PO HS #30 tab 12/22/22 Allergies Allergy/AdvReac Type Severity Reaction Status Date / Time bee venom protein (honey bee) Allergy Anaphylaxis Verified 11/28/24 12:08 hydrocodone [From [place]] AdvReac Confusion Verified 11/28/24 12:08 Review of Systems ROS Statement: Those systems with pertinent positive or pertinent negative responses have been documented in the HPI. ROS Other: All systems not noted in ROS Statement are negative. Constitutional: Denies: fever Eyes: Denies: eye pain ENT: Denies: ear pain Respiratory: Reports: as per HPI Cardiovascular: Reports: as per HPI, chest pain Gastrointestinal: Denies: abdominal pain Musculoskeletal: Denies: back pain Past Medical History Past Medical History: Atrial Fibrillation, Coronary Artery Disease (CAD), Cancer, Heart Failure, COPD, CVA/TIA, Diabetes Mellitus, Eye Disorder, GERD/Reflux, Hyperlipidemia, Hypertension Additional Past Medical History / Comment(s): NIDDM type II, neuropathy bilateral feet, bronchial asthma, home oxygen prn, obesity, occasional lower extremity edema, past L axillae cellulitis/abscess-lengthy heal, shingles/staph, R eye wet macular degeneration/ L eye dry macular degeneration, uterine cancer with hysterectomy, TIA, hiatal hernia, uterine cancer with hysterectomy, tardive dyskinesia r/t psych medication, migraines, sinus problems, paroxysmal atrial fibrillation, past urinary retention w/ past chronic mackenzie, UTIs. History of Any Multi-Drug Resistant Organisms: None Reported Past Surgical History: Adenoidectomy, Cholecystectomy, Ear Surgery, Heart Catheterization, Hysterectomy, Tonsillectomy Additional Past Surgical History / Comment(s): I & D L axillae, L eye surgery for lazy eye, bilateral cataract removal, bilateral myringotomy/tubes, colonoscopy, bronchoscopy, cervical surgery Past Anesthesia/Blood Transfusion Reactions: No Reported Reaction Past Psychological History: Anxiety, Depression, Schizoaffective Disorder Smoking Status: Never smoker Past Alcohol Use History: None Reported Past Drug Use History: None Reported - Past Family History Mother Family Medical History: Myocardial Infarction ([place]) Additional Family Medical History / Comment(s): Mother at 72 yrs. Father Family Medical History: Cancer Additional Family Medical History / Comment(s): Throat cancer; father at 72 yrs. Brother(s) Family Medical History: Cancer Additional Family Medical History / Comment(s): Liver cancer General Exam Limitations: no limitations General appearance: alert, in no apparent distress Head exam: Present: normocephalic Eye exam: Present: normal appearance Neck exam: Present: normal inspection Respiratory exam: Present: normal lung sounds bilaterally Cardiovascular Exam: Present: regular rate, normal rhythm Expanded Peripheral pulses: 2+: Radial (R), Radial (L), Dorsalis Pedis (R), Dorsalis Pedis (L) GI/Abdominal exam: Present: soft. Absent: tenderness, pulsatile mass Extremities exam: Present: pedal edema. Absent: calf tenderness Neurological exam: Present: alert Psychiatric exam: Present: normal affect, normal mood Skin exam: Present: normal color Course Vital Signs 11/28/24 11/28/24 11/28/24 10:51 11:10 11:26 Temperature 98.5 F Pulse Rate 55 L 55 L 53 L Respiratory 17 19 17 Rate Blood Pressure 114/68 114/68 94/60 O2 Sat by Pulse 99 96 95 Oximetry EKG Findings - EKG Results: EKG: interpreted by ERMD (Nonspecific T waves.), sinus rhythm, normal axis, normal QRS EKG shows: bradycardia Medical Decision Making - Medical Decision Making Was pt. sent in by a medical professional or institution (, PA, TREE SAPPER, urgent care, hospital, or correction...) When possible be specific @ -No Did you speak to anyone other than the patient for history (EMS, parent, family, police, friend...)? What history was obtained from this source @ -No Did you review nursing and triage notes (agree or disagree)? Why? @ -I reviewed and agree with nursing and triage notes Were old charts reviewed (outside hosp., previous admission, EMS record, old EKG, old radiological studies, urgent care reports/EKG's, correction records)? Report findings @ -No old charts were reviewed Differential Diagnosis (chest pain, altered mental status, abdominal pain women, abdominal pain men, vaginal bleeding, weakness, fever, dyspnea, syncope, headache, dizziness, GI bleed, back pain, seizure, CVA, palpatations, mental health, musculoskeletal)? @ -Differential Chest Pain: Stable Angina, Unstable Angina, STEMI, NSTEMI Aortic Dissection, Pneumothorax, Musculoskeletal, Esophageal Spasm GERD, Cholecystitis, Pancreatitis, Zoster, this is not meant to be an all-inclusive list. EKG interpreted by me (3pts min.). @ -As above X-rays interpreted by me (1pt min.). @ -Chest x-ray with nonspecific findings CT interpreted by me (1pt min.). @ -None done U/S interpreted by me (1pt. min.). @ -None done What testing was considered but not performed or refused? (CT, X-rays, U/S, labs)? Why? @ -None What meds were considered but not given or refused? Why? @ -None Did you discuss the management of the patient with other professionals (professionals i.e. , PA, TREE SAPPER, lab, RT, psych nurse, home health care social worker, chemical dependency counselor, teacher, certified juvenile probation officer, skilled nursing case manager)? Give summary @ -Dr. Elizabeth will admit covering Dr. Tidwell Was smoking cessation discussed for >3mins.? @ -No Was critical care preformed (if so, how long)? @ -No Were there social determinants of health that impacted care today? How? (Homelessness, low income, unemployed, alcoholism, drug addiction, transportati on, low edu. Level, literacy, decrease access to med. care, ch[facility], rehab)? @ -No Was there de-escalation of care discussed even if they declined (Discuss DNR or withdrawal of care, Hospice)? DNR status @ -No What co-morbidities impacted this encounter? (DM, HTN, Smoking, COPD, CAD, Cancer, CVA, ARF, Chemo, Hep., AIDS, mental health diagnosis, sleep apnea, morbid obesity)? @ -None Was patient admitted / discharged? Hospital course, mention meds given and route, prescriptions, significant lab abnormalities, going to OR and other pertinent info. @ -Patient presents with chest discomfort. Initial evaluation unremarkable. Patient reevaluated and updated. Patient will be admitted with cardiac consult. Admission orders written. Undiagnosed new problem with uncertain prognosis? @ -No Drug Therapy requiring intensive monitoring for toxicity (Heparin, Nitro, Insulin, Cardizem)? @ -No Were any procedures done? @ -No Diagnosis/symptom? @ -Chest pain Acute, or Chronic, or Acute on Chronic? @ -Acute Uncomplicated (without systemic symptoms) or Complicated (systemic symptoms)? @ -Default Side effects of treatment? @ -No Exacerbation, Progression, or Severe Exacerbation? @ -No Poses a threat to life or bodily function? How? (Chest pain, [place], [place], pneumonia, PE, COPD, DKA, ARF, appy, cholecystitis, CVA, Diverticulitis, Homicidal, Suicidal, threat to staff... and all critical care pts) @ -Threat to cardiac function - Lab Data Result diagrams: 11/28/24 10:59 11/28/24 10:59 Lab Results 11/28/24 11/28/24 11/28/24 Range/Units 10:59 10:59 10:59 WBC 6.30 (4.50-10.00) 10*3/uL RBC 3.98 L (4.10-5.20) 10*6/uL Hgb 12.4 (12.0-15.0) g/dL Hct 37.6 (37.2-46.3) % MCV 94.5 (80.0-97.0) fL MCH 31.2 (27.0-32.0) pg MCHC 33.0 (32.0-37.0) g/dL Plt Count 222 (140-440) 10*3/uL MPV 10.7 (9.5-12.2) fL Immature Gran % (Auto) 0.3 % Neutrophils % 63.5 % Lymphocytes % 28.9 % Monocytes % 5.4 % Eosinophils % 1.6 % Basophils % 0.3 % Immature Gran # 0.02 (0.00-0.04) 10*3/uL Neutrophils # 4.00 (1.80-7.70) 10*3/uL Lymphocytes # 1.82 (0.90-5.00) 10*3/uL Monocytes # 0.34 (0.20-1.00) 10*3/uL Eosinophils # 0.10 (0.04-0.35) 10*3/uL Basophils # 0.02 (0.00-0.10) 10*3/uL PT 11.1 (10.0-12.5) sec INR 1.0 (<1.2) APTT 24.9 (22.0-30.0) sec Sodium 139 (137-145) mmol/L Potassium 3.7 (3.5-5.1) mmol/L Chloride 106 (98-107) mmol/L Carbon Dioxide 27 (22-30) mmol/L Anion Gap 6 mmol/L BUN 15 (7-17) mg/dL Creatinine 0.65 (0.52-1.04) mg/dL Est GFR (CKD-EPI)AfAm >90 (>60 ml/min/1.73 sqM) Est GFR (CKD-EPI)NonAf >90 (>60 ml/min/1.73 sqM) Glucose 113 H (74-99) mg/dL Calcium 9.3 (8.4-10.2) mg/dL Magnesium 1.9 (1.6-2.3) mg/dL Total Bilirubin 0.7 (0.2-1.3) mg/dL AST 48 H (14-36) U/L ALT 36 H (4-34) U/L Alkaline Phosphatase 71 (38-126) U/L Troponin I (0.000-0.034) ng/mL NT-Pro-B Natriuret Pep 176 pg/mL Total Protein 5.9 L (6.3-8.2) g/dL Albumin 3.6 (3.5-5.0) g/dL Digoxin 0.7 ng/mL [place] 0.7 mmol/L 11/28/24 Range/Units 10:59 WBC (4.50-10.00) 10*3/uL RBC (4.10-5.20) 10*6/uL Hgb (12.0-15.0) g/dL Hct (37.2-46.3) % MCV (80.0-97.0) fL MCH (27.0-32.0) pg MCHC (32.0-37.0) g/dL Plt Count (140-440) 10*3/uL MPV (9.5-12.2) fL Immature Gran % (Auto) % Neutrophils % % Lymphocytes % % Monocytes % % Eosinophils % % Basophils % % Immature Gran # (0.00-0.04) 10*3/uL Neutrophils # (1.80-7.70) 10*3/uL Lymphocytes # (0.90-5.00) 10*3/uL Monocytes # (0.20-1.00) 10*3/uL Eosinophils # (0.04-0.35) 10*3/uL Basophils # (0.00-0.10) 10*3/uL PT (10.0-12.5) sec INR (<1.2) APTT (22.0-30.0) sec Sodium (137-145) mmol/L Potassium (3.5-5.1) mmol/L Chloride (98-107) mmol/L Carbon Dioxide (22-30) mmol/L Anion Gap mmol/L BUN (7-17) mg/dL Creatinine (0.52-1.04) mg/dL Est GFR (CKD-EPI)AfAm (>60 ml/min/1.73 sqM) Est GFR (CKD-EPI)NonAf (>60 ml/min/1.73 sqM) Glucose (74-99) mg/dL Calcium (8.4-10.2) mg/dL Magnesium (1.6-2.3) mg/dL Total Bilirubin (0.2-1.3) mg/dL AST (14-36) U/L ALT (4-34) U/L Alkaline Phosphatase (38-126) U/L Troponin I <0.012 (0.000-0.034) ng/mL NT-Pro-B Natriuret Pep pg/mL Total Protein (6.3-8.2) g/dL Albumin (3.5-5.0) g/dL Digoxin ng/mL [place] mmol/L Disposition Clinical Impression: Chest pain Disposition: ADMITTED IP TO THIS [facility] Is patient prescribed a controlled substance at d/c from ED?: No Referrals: Ced Mackenzie MD [Primary Care Provider] - 1-2 days Time of Disposition: 14:17
[2024-11-28] MEDS: ASPIRIN 81 MG PO STA (11:22)
[2024-11-28 11:34] LABS: Basophils # (A) 0.02 10*3/uL (0.00-0.10); Basophils % (A) 0.3 %; Eosinophils # (A) 0.10 10*3/uL (0.04-0.35); Eosinophils % (A) 1.6 %; HCT 37.6 % (37.2-46.3); HGB 12.4 g/dL (12.0-15.0); Lymphocytes # (A) 1.82 10*3/uL (0.90-5.00); Lymphocytes % (A) 28.9 %; MCH 31.2 pg (27.0-32.0); MCHC 33.0 g/dL (32.0-37.0); MCV 94.5 fL (80.0-97.0); Monocytes # (A) 0.34 10*3/uL (0.20-1.00); Monocytes % (A) 5.4 %; Neutrophils # (A) 4.00 10*3/uL (1.80-7.70); Neutrophils % (A) 63.5 %; Platelet Count 222 10*3/uL (140-440); RBC 3.98 10*6/uL (4.10-5.20); RDW 12.0 % (11.5-14.5); WBC 6.30 10*3/uL (4.50-10.00)
[2024-11-28] MEDS: NITROGLYCERIN SL TABS 0.4 MG TAB SUBLINGUAL STA (11:35)
[2024-11-28 11:53] LABS: ALT 36 U/L (4-34); African American GFR (CKD) >90 (>60 ml/min/1.73 sqM); Albumin 3.6 g/dL (3.5-5.0); Anion Gap 6 mmol/L; Blood Urea Nitrogen 15 mg/dL (7-17); Calcium 9.3 mg/dL (8.4-10.2); Carbon Dioxide 27 mmol/L (22-30); Chloride 106 mmol/L (98-107); Digoxin 0.7 ng/mL; Glucose 113 mg/dL (74-99); Lithium 0.7 mmol/L; Non-African American GFR(CKD) >90 (>60 ml/min/1.73 sqM); Sodium 139 mmol/L (137-145); Total Protein 5.9 g/dL (6.3-8.2)
[2024-11-28 11:55] LABS: AST 48 U/L (14-36); Alkaline Phosphatase 71 U/L (38-126); INR 1.0 (<1.2); Magnesium 1.9 mg/dL (1.6-2.3); Partial Thromboplastin Time 24.9 sec (22.0-30.0); Potassium 3.7 mmol/L (3.5-5.1); Prothrombin Time 11.1 sec (10.0-12.5)
[2024-11-28 11:57] LABS: NT-Pro-B-Type Natriuretic Pept 176 pg/mL
--- NOTE | 2024-11-28 11:59 | XR ---
EXAMINATION TYPE: XR chest 2V DATE OF EXAM: 11/28/2024 11:51 AM COMPARISON: Chest radiographs from 12/21/2022 TECHNIQUE: XR chest 2V Frontal and lateral views of the chest. CLINICAL INDICATION:Female, 69 years old with history of Chest Pain; FINDINGS: Lungs/Pleura: There is no evidence of pleural effusion, focal consolidation, or pneumothorax. Pulmonary vascularity: Central pulmonary vascular congestion. Heart/mediastinum: Cardiomediastinal silhouette is enlarged and stable. Atherosclerotic calcificatio ns are seen in the aorta. Musculoskeletal: No acute osseous pathology. Cervical fusion hardware. IMPRESSION: Cardiomegaly and central pulmonary vascular congestion. Correlate with BNP for congestive heart failu re. [facility], , 11/28/2024 11:57 AM
[2024-11-28 16:29] LABS: Glucose,Whole Blood 104 mg/dL (70-110)
[2024-11-28] MEDS: metFORMIN 500 MG TAB PO SCH (16:35)
[2024-11-28] MEDS ORDERED: DEXTROSE 50% SYRINGE 50 ML IVP PRN ×2 (21:04)
--- NOTE | 2024-11-28 21:07 | P.HPIM ---
History of Present Illness H&P Date: 11/28/24 Chief Complaint: Chest pain This is a pleasant 69-year-old patient of visiting physician Dr. Mackenzie. Resident of [facility] Rex Valerio . Does use a walker last wheelchair. Chronic medical conditions include asthma diabetes mellitus type 2, hypertension, hyperlipidemia, hiatal hernia, peripheral neuropathy, schizoaffective disorder, GERD. Tardive dyskinesia Patient woken up from sleep around 2 AM with central chest pressure. Going down the left arm. Lasted for 1 to 2 hours. Denied any dizziness lightheadedness. No perspiration. Some shortness of breath. Patient has had some mild edema. Patient had tremors of the body off and off for years. In 2022 patient had a cardiac catheterization showed mild disease. Troponins negative Review of systems: GEN.: Tired EYES: None HEENT: None NECK: None RESPIRATORY: As above CARDIOVASCULAR: As above GASTROINTESTINAL: None GENITOURINARY: None MUSCULOSKELETAL: Joint pains LYMPHATICS: None HEMATOLOGICAL: None PSYCHIATRY: None NEUROLOGICAL: Tremors. Does use a walker or wheelchair Past medical history to include: COVID-19 positive diagnosed on 04/03/2021. Persistent bronchial asthma, diabetes mellitus type 2, hypertension, hyperlipidemia, obesity, hiatal hernia, idiopathic peripheral neuropathy, GERD, schizoaffective disorder bipolar type, atrial fibrillation, macular degeneration, uterine cancer with hysterectomy, tardive dyskinesia, use a walker Social history: Lives at [facility]: Rex Mijares, does use a walker. Stopped drinking alcohol in 2006. Never smoked. Physical examination: VITAL SIGNS: 97.6, 53, 16, 99 x 62, 95% room air GENERAL: BMI 27.6, sitting up in bed, EYES: Pupils equal. Conjunctiva normal. HEENT: External appearance of nose and ears normal, oral cavity grossly normal. Missing several teeth NECK: JVD not raised; masses not palpable. HEART: First and second heart sounds are normal; no edema. LUNGS: Respiratory rate normal. Lungs fair entry ABDOMEN: Soft, nontender, liver spleen not palpable, no masses palpable. PSYCH: Alert and oriented x3; mood and affect anxious. MUSCULOSKELETAL:No Clubbing/cyanosis;muscles-grossly intact Neurological: Tremors. Some thick speech INVESTIGATIONS, reviewed in the clinical context: November 28, 2024: White count 6.3 hemoglobin 12.4 platelets 222 sodium 139 potassium 3.7 creatinine 0.65 Troponin I less than 0.012 proBNP 176 Digoxin 0.7 lithium 0.7 EKG tracing personally reviewed by me-abnormal inverted T waves Chest x-ray film personally reviewed by me-cardiomegaly Assessment and plan: -Probable unstable angina with multiple risk factors. Patient had a cardiac catheterization in 2022 showing mild disease. Some EKG changes. Negative troponin. Aspirin. Eliquis-hold for now. -Moderate persistent asthma: Stable. -Diabetes mellitus type 2, on oral hypoglycemic. metformin . Follow Accu-Cheks -Essential Hypertension Lopressor 12.5 by mouth twice a day -Hyperlipidemia Lipitor 10 mg daily at bedtime -Diabetic peripheral neuropathy Neurontin 200 mg daily -GERD Tums when necessary -Paroxysmal atrial fibrillation currently sinus rhythm Toprol-XL 12.5 mg a day. Eliquis 5 mg twice a day- on hold -Schizoaffective disorder Clozaril 125 mg at bedtime Celexa 40 mg daily. [place] -Chronic urinary stress incontinence Ditropan XL 5 mg twice a day -Tardive dyskinesia due to medications -Chronic gait dysfunction, uses a walker/wheelchair at baseline Fall precautions -Full code Discussed. Cardiology consulted Past Medical History Past Medical History: Atrial Fibrillation, Coronary Artery Disease (CAD), Cancer, Heart Failure, COPD, CVA/TIA, Diabetes Mellitus, Eye Disorder, GERD/Reflux, Hyperlipidemia, Hypertension Additional Past Medical History / Comment(s): NIDDM type II, neuropathy bilateral feet, bronchial asthma, home oxygen prn, obesity, occasional lower extremity edema, past L axillae cellulitis/abscess-lengthy heal, shingles/staph, R eye wet macular degeneration/ L eye dry macular degeneration, uterine cancer with hysterectomy, TIA, hiatal hernia, uterine cancer with hysterectomy, tardive dyskinesia r/t psych medication, migraines, sinus problems, paroxysmal atrial fibrillation, past urinary retention w/ past chronic mackenzie, UTIs. History of Any Multi-Drug Resistant Organisms: None Reported Past Surgical History: Adenoidectomy, Cholecystectomy, Ear Surgery, Heart Catheterization, Hysterectomy, Tonsillectomy Additional Past Surgical History / Comment(s): I & D L axillae, L eye surgery for lazy eye, bilateral cataract removal, bilateral myringotomy/tubes, colonoscopy, bronchoscopy, cervical surgery Past Anesthesia/Blood Transfusion Reactions: No Reported Reaction Past Psychological History: Anxiety, Depression, Schizoaffective Disorder Additional Psychological History / Comment(s): Pt resides at [facility]. She uses a walker to ambulate. She gets to [facility] by bus. She has a glucometer. She has oxygen which she wears prn. Smoking Status: Never smoker Past Alcohol Use History: None Reported Additional Past Alcohol Use History / Comment(s): Pt quit drinking in 2006. Past Drug Use History: None Reported - Past Family History Mother Family Medical History: COPD, Myocardial Infarction ([place]) Additional Family Medical History / Comment(s): Mother at 72 yrs. Father Family Medical History: Cancer, Diabetes Mellitus Additional Family Medical History / Comment(s): Throat cancer; father at 72 yrs. Brother(s) Family Medical History: Cancer Additional Family Medical History / Comment(s): Liver cancer Medications and Allergies Home Medications Medication Instructions Recorded Confirmed Type Gabapentin [Neurontin] 200 mg PO DAILY 05/19/19 11/28/24 History metFORMIN HCL ER [Glucophage XR] 500 mg PO Q2D@1600 05/19/19 11/28/24 History Vit C/E/Zn/Coppr/Lutein/Zeaxan 1 cap PO DAILY 04/24/20 11/28/24 History [Preservision Areds 2 Softgel] Apixaban [Eliquis] 5 mg PO BID 05/07/21 11/28/24 History Digoxin [Lanoxin] 125 mcg PO DAILY 05/07/21 11/28/24 History Isosorbide Mononitrate ER [Imdur] 60 mg PO DAILY 05/07/21 11/28/24 History [place] Carbonate 150 mg PO BID 30 Days #60 cap 08/20/21 11/28/24 Rx cloZAPine [Clozaril] 100 mg PO HS 09/03/21 11/28/24 History Citalopram Hydrobromide [CeleXA] 40 mg PO DAILY 10/07/21 11/28/24 History Metoprolol Succinate (ER) [Toprol 12.5 mg PO DAILY 12/21/22 11/28/24 History XL] Potassium Chloride [Potassium 10 meq PO DAILY 12/21/22 11/28/24 History Chloride ER (K-Dur GEQ)] Atorvastatin [Lipitor] 40 mg PO HS #30 tab 12/22/22 11/28/24 Rx Albuterol Nebulized [Ventolin 2.5 mg INHALATION RT-TID PRN 11/28/24 11/28/24 History Nebulized] Deutetrabenazine [Austedo Xr] 24 mg PO DAILY 11/28/24 11/28/24 History Furosemide [Lasix] 20 mg PO DAILY 11/28/24 11/28/24 History Hyoscyamine Sulfate [Hyoscyamine 0.125 mg SUBLINGUAL TID PRN 11/28/24 11/28/24 History Sulfate SL] Magnesium Hydroxide [Milk of 2,400 mg PO DAILY PRN 11/28/24 11/28/24 History Magnesia] Sennosides/Docusate Sodium [Senna 2 tab PO HS 11/28/24 11/28/24 History Plus 8.6-50 mg Tablet] cloZAPine [Clozaril] 25 mg PO HS 11/28/24 11/28/24 History guaiFENesin-DM 600/30MG [Mucinex 1 tab PO BID PRN 11/28/24 11/28/24 History Dm] Allergies Allergy/AdvReac Type Severity Reaction Status Date / Time bee venom protein (honey bee) Allergy Anaphylaxis Verified 11/28/24 12:08 hydrocodone [From [place]] AdvReac Confusion Verified 11/28/24 12:08 Physical Exam Vitals: Vital Signs Temp Pulse Pulse Resp BP BP Pulse Ox 11/28/24 15:56 53 L 18 11/28/24 15:21 95 11/28/24 15:10 97.6 F 53 L 16 99/62 95 11/28/24 14:58 97.8 F 68 18 97/64 98 11/28/24 11:26 53 L 17 94/60 95 11/28/24 11:10 55 L 19 114/68 96 11/28/24 10:51 98.5 F 55 L 17 114/68 99 Intake and Output 11/28/24 11/28/24 11/28/24 06:59 14:59 22:59 Other: Weight 70.76 kg 70.76 kg Results CBC & Chem 7: 11/28/24 10:59 11/28/24 10:59 Labs: Abnormal Lab Results - Last 24 Hours (Table) 11/28/24 11/28/24 Range/Units 10:59 10:59 RBC 3.98 L (4.10-5.20) 10*6/uL Glucose 113 H (74-99) mg/dL AST 48 H (14-36) U/L ALT 36 H (4-34) U/L Total Protein 5.9 L (6.3-8.2) g/dL Thrombosis Risk Factor Assmnt - Choose All That Apply Each Factor Represents 1 point: Abnormal pulmonary function (COPD), Acute [place], Heart failure (<1month), Swollen legs (current) Other Risk Factors: Yes Each Risk Factor Represents 2 Points: Age 61-74 years Each Risk Factor Represents 3 Points: History of DVT/PE Thrombosis Risk Factor Assessment Total Risk Factor Score: 9 Thrombosis Risk Factor Assessment Level: High Risk
[2024-11-28 22:37] LABS: Glucose,Whole Blood 97 mg/dL (70-110)
[2024-11-28] MEDS: LITHIUM CARBONATE 150 MG CAP PO SCH (22:39)
[2024-11-28] MEDS: ATORVASTATIN 40 MG TAB PO SCH (22:39)
[2024-11-28] MEDS: SENNOSIDES-DOCUSATE SODIUM 1 EACH TAB PO SCH (22:39)
[2024-11-28] MEDS: INSULIN LISPRO (HumaLOG) 100 UNIT/ML 10 mL VL SQ SCH (22:39)
[2024-11-28] MEDS: NITROGLYCERIN SL TABS 0.4 MG TAB SUBLINGUAL PRN (22:40)
[2024-11-29] MEDS: MAGNESIUM HYDROXIDE 2,400 MG/30 ML CUP PO PRN (00:50)
[2024-11-29] MEDS: guaiFENesin-DM 600/30MG 1 EACH TAB.ER.12H PO PRN (03:01)
[2024-11-29] MEDS: APIXABAN 5 MG TAB PO SCH ×2 (04:27→13:25)
[2024-11-29 06:22] LABS: Glucose,Whole Blood 99 mg/dL (70-110)
[2024-11-29] MEDS: HYOSCYAMINE SULFATE 0.125 MG TAB SL PRN (06:35)
[2024-11-29] MEDS ORDERED: DOBUTamine DRIP for NUC MED 500 MG in DEXTROSE/WATER 1 250ML.BAG IV PRN (07:45)
[2024-11-29] MEDS ORDERED: DOBUTamine DRIP for NUC MED 500 MG/250 ML BAG IV ONE (08:00)
[2024-11-29 08:13] LABS: Cholesterol 101.00 mg/dL (0.00-200.00); HDL Cholesterol 45.50 mg/dL (40.00-60.00); LDL Cholesterol,Calculated 27.3 mg/dL (0.0-131.0); Triglycerides 141.00 mg/dL (0.00-149.00); VLDL Calculation 28.20 mg/dL (5.00-40.00)
[2024-11-29] MEDS: GABAPENTIN 100 MG CAP PO SCH (08:19)
[2024-11-29] MEDS: POTASSIUM CHLORIDE ER 10 MEQ TAB.ER.PRT PO SCH (08:19)
[2024-11-29] MEDS: CITALOPRAM HYDROBROMIDE 20 MG TAB PO SCH (08:20)
[2024-11-29] MEDS: LOSARTAN 25 MG TAB PO SCH (08:20)
[2024-11-29] MEDS: ASPIRIN 81 MG PO SCH (08:20)
[2024-11-29] MEDS ORDERED: ISOSORBIDE MONONITRATE ER 60 MG TAB.ER.24H PO SCH (09:00)
[2024-11-29] MEDS ORDERED: ASPIRIN 325 MG TAB PO SCH (09:00)
--- NOTE | 2024-11-29 09:51 | P.CRDCN ---
History of Present Illness Consult date: 11/29/24 Consult reason: chest pain History of present illness: This is 69-year-old female patient of Dr. Sammy Jade with past medical history of paroxysmal atrial fibrillation, dyslipidemia, mild nonobstructive coronary artery disease, diabetes mellitus type 2, schizoaffective disorder. Patient has a safety spec at the bedside. Patient gives history that she woke up at 2 AM from a deep sleep with pressure in her chest. She was also shaking. She states this happens about 3 times per month when it wakes her up. She denies any racing heartbeat or palpitations. Pressure 112/63, heart rate 58, pulse ox 94% on room air. -EKG: Sinus rhythm with T wave inversions in the lateral precordial leads. -Chest x-ray: Cardiomegaly and central pulmonary vascular congestion. -Laboratory studies: CBC unremarkable. Electrolytes and renal function normal. AST 48, ALT 36, troponin negative x 3. Triglycerides 141, cholesterol 101, LDL 27. Digoxin level 0.7, lithium level 0.7. -Home cardiac medications: Eliquis 5 mg twice daily, Lipitor 40 mg at bedtime, digoxin 125 mcg daily, Lasix 20 mg daily, Imdur 60 mg daily, Toprol XL 12.5 mg daily. -Cardiac catheterization performed 12/21/2022 revealed mild CAD with 10 to 20% mid LAD and 10 to 20% mid RCA stenosis but otherwise normal coronary arteries. Normal left-sided filling pressures. - Echocardiogram performed 12/21/2022 revealed EF 55 to 60%, mild mitral annular calcification, mild tricuspid regurgitation. Review Of Systems: At the time of my exam: CONSTITUTIONAL: Denies fever or chills. HEENT: Denies blurred vision, vision changes, or eye pain. Denies hemoptysis CARDIOVASCULAR: Denies chest pain. Denies orthopnea. Denies PND. Denies palpitations RESPIRATORY: Denies shortness of breath. GASTROINTESTINAL: Denies abdominal pain. Denies nausea or vomiting. HEMATOLOGIC: Denies bleeding disorders. GENITOURINARY: Denies any blood in urine. SKIN: Denies puritis. Denies rash. Physical examination: Gen: This is 69-year-old female VS: reviewed HEENT: Head is atraumatic, normocephalic. Pupils equal, round. Sclerae is anicteric. NECK: Supple. No JVD. LUNGS: Clear to auscultation. No wheezes or rhonchi. No intercostal retractions. HEART: Regular rate and rhythm. No murmur. ABDOMEN: Soft No tenderness. EXTREMITIES: No pedal edema. No calf tenderness. NEUROLOGICAL: Patient is awake, alert and oriented. Assessment: Atypical chest pain, acute coronary syndrome ruled out Paroxysmal atrial fibrillation Dyslipidemia Mild nonobstructive coronary artery disease Diabetes mellitus type 2 Schizoaffective disorder Plan: Resume patient's home cardiac medications with the following changes: Discontinue Imdur as patient has no obstructive coronary artery disease--do not continue at discharge Change aspirin to 81 mg Add losartan 12.5 mg daily Obtain dobutamine stress echocardiogram today Obtain 2-D echocardiogram and Doppler study to assess cardiac structure and function If above testing is unremarkable, patient is cleared for discharge from cardiology. Thank you kindly for this consultation. Nurse practitioner note has been reviewed, I agree with documented findings and plan of care. Patient was seen and examined. Past Medical History Past Medical History: Atrial Fibrillation, Coronary Artery Disease (CAD), Cancer, Heart Failure, COPD, CVA/TIA, Diabetes Mellitus, Eye Disorder, GERD/Reflux, Hyperlipidemia, Hypertension Additional Past Medical History / Comment(s): NIDDM type II, neuropathy bilateral feet, bronchial asthma, home oxygen prn, obesity, occasional lower extremity edema, past L axillae cellulitis/abscess-lengthy heal, shingles/staph, R eye wet macular degeneration/ L eye dry macular degeneration, uterine cancer with hysterectomy, TIA, hiatal hernia, uterine cancer with hysterectomy, tardive dyskinesia r/t psych medication, migraines, sinus problems, paroxysmal atrial fibrillation, past urinary retention w/ past chronic mackenzie, UTIs. History of Any Multi-Drug Resistant Organisms: None Reported Past Surgical History: Adenoidectomy, Cholecystectomy, Ear Surgery, Heart Catheterization, Hysterectomy, Tonsillectomy Additional Past Surgical History / Comment(s): I & D L axillae, L eye surgery for lazy eye, bilateral cataract removal, bilateral myringotomy/tubes, colonoscopy, bronchoscopy, cervical surgery Past Anesthesia/Blood Transfusion Reactions: No Reported Reaction Past Psychological History: Anxiety, Depression, Schizoaffective Disorder Additional Psychological History / Comment(s): Pt resides at [facility]. She uses a walker to ambulate. She gets to [facility] by bus. She has a glucometer. She has oxygen which she wears prn. Smoking Status: Never smoker Past Alcohol Use History: None Reported Additional Past Alcohol Use History / Comment(s): Pt quit drinking in 2006. Past Drug Use History: None Reported - Past Family History Mother Family Medical History: COPD, Myocardial Infarction ([place]) Additional Family Medical History / Comment(s): Mother at 72 yrs. Father Family Medical History: Cancer, Diabetes Mellitus Additional Family Medical History / Comment(s): Throat cancer; father at 72 yrs. Brother(s) Family Medical History: Cancer Additional Family Medical History / Comment(s): Liver cancer Medications and Allergies Home Medications Medication Instructions Recorded Confirmed Type Gabapentin [Neurontin] 200 mg PO DAILY 05/19/19 11/28/24 History metFORMIN HCL ER [Glucophage XR] 500 mg PO Q2D@1600 05/19/19 11/28/24 History Vit C/E/Zn/Coppr/Lutein/Zeaxan 1 cap PO DAILY 04/24/20 11/28/24 History [Preservision Areds 2 Softgel] Apixaban [Eliquis] 5 mg PO BID 05/07/21 11/28/24 History Digoxin [Lanoxin] 125 mcg PO DAILY 05/07/21 11/28/24 History Isosorbide Mononitrate ER [Imdur] 60 mg PO DAILY 05/07/21 11/28/24 History [place] Carbonate 150 mg PO BID 30 Days #60 cap 08/20/21 11/28/24 Rx cloZAPine [Clozaril] 100 mg PO HS 09/03/21 11/28/24 History Citalopram Hydrobromide [CeleXA] 40 mg PO DAILY 10/07/21 11/28/24 History Metoprolol Succinate (ER) [Toprol 12.5 mg PO DAILY 12/21/22 11/28/24 History XL] Potassium Chloride [Potassium 10 meq PO DAILY 12/21/22 11/28/24 History Chloride ER (K-Dur GEQ)] Atorvastatin [Lipitor] 40 mg PO HS #30 tab 12/22/22 11/28/24 Rx Albuterol Nebulized [Ventolin 2.5 mg INHALATION RT-TID PRN 11/28/24 11/28/24 History Nebulized] Deutetrabenazine [Austedo Xr] 24 mg PO DAILY 11/28/24 11/28/24 History Furosemide [Lasix] 20 mg PO DAILY 11/28/24 11/28/24 History Hyoscyamine Sulfate [Hyoscyamine 0.125 mg SUBLINGUAL TID PRN 11/28/24 11/28/24 History Sulfate SL] Magnesium Hydroxide [Milk of 2,400 mg PO DAILY PRN 11/28/24 11/28/24 History Magnesia] Sennosides/Docusate Sodium [Senna 2 tab PO HS 11/28/24 11/28/24 History Plus 8.6-50 mg Tablet] cloZAPine [Clozaril] 25 mg PO HS 11/28/24 11/28/24 History guaiFENesin-DM 600/30MG [Mucinex 1 tab PO BID PRN 11/28/24 11/28/24 History Dm] Allergies Allergy/AdvReac Type Severity Reaction Status Date / Time bee venom protein (honey bee) Allergy Anaphylaxis Verified 11/28/24 12:08 hydrocodone [From [place]] AdvReac Confusion Verified 11/28/24 12:08 Physical Exam Vitals: Vital Signs Temp Pulse Pulse Resp BP BP Pulse Ox 11/29/24 02:00 98.4 F 66 16 117/62 97 11/28/24 22:40 98.1 F 56 L 16 118/80 98 11/28/24 22:37 97.4 F L 57 L 16 117/69 95 11/28/24 21:30 16 11/28/24 15:56 53 L 18 11/28/24 15:21 95 11/28/24 15:10 97.6 F 53 L 16 99/62 95 11/28/24 14:58 97.8 F 68 18 97/64 98 11/28/24 11:26 53 L 17 94/60 95 11/28/24 11:10 55 L 19 114/68 96 11/28/24 10:51 98.5 F 55 L 17 114/68 99 Intake and Output 11/28/24 11/29/24 11/29/24 22:59 06:59 14:59 Other: # Voids 2 6 Weight 70.76 kg Results 11/28/24 10:59 11/28/24 10:59 Cardiac Enzymes 11/28/24 11/28/2411/28/25 Range/Units 10:59 10:59 14:35 AST 48 H (14-36) U/L Troponin I <0.012 <0.012 (0.000-0.034) ng/mL 11/28/24 Range/Units 17:29 AST (14-36) U/L Troponin I <0.012 (0.000-0.034) ng/mL Coagulation 11/28/24 Range/Units 10:59 PT 11.1 (10.0-12.5) sec APTT 24.9 (22.0-30.0) sec CBC 11/28/24 Range/Units 10:59 WBC 6.30 (4.50-10.00) 10*3/uL RBC 3.98 L (4.10-5.20) 10*6/uL Hgb 12.4 (12.0-15.0) g/dL Hct 37.6 (37.2-46.3) % Plt Count 222 (140-440) 10*3/uL Comprehensive Metabolic Panel 11/28/24 Range/Units 10:59 Sodium 139 (137-145) mmol/L Potassium 3.7 (3.5-5.1) mmol/L Chloride 106 (98-107) mmol/L Carbon Dioxide 27 (22-30) mmol/L BUN 15 (7-17) mg/dL Creatinine 0.65 (0.52-1.04) mg/dL Glucose 113 H (74-99) mg/dL Calcium 9.3 (8.4-10.2) mg/dL AST 48 H (14-36) U/L ALT 36 H (4-34) U/L Alkaline Phosphatase 71 (38-126) U/L Total Protein 5.9 L (6.3-8.2) g/dL Albumin 3.6 (3.5-5.0) g/dL Current Medications Generic Name Dose Route Start Last Admin Trade Name Freq PRN Reason Stop Dose Admin Albuterol Sulfate 2.5 mg 11/28/24 14:27 Albuterol Nebulized 2.5 Mg/3 Ml INHALATION RT-TID PRN Shortness Of Breath Aspirin 325 mg 11/29/24 09:00 Aspirin 325 Mg Tab PO DAILY AMADA Atorvastatin Calcium 40 mg 11/28/24 21:00 11/28/24 22:39 Atorvastatin 40 Mg Tab PO 40 mg HS AMADA Administration Citalopram Hydrobromide 40 mg 11/29/24 09:00 Citalopram Hydrobromide 20 Mg Tab PO DAILY [facility] Clozapine 100 mg 11/28/24 21:00 11/28/24 22:39 Clozapine 100 Mg Tab PO 12/06/24 23:59 100 mg HS AMADA Administration Clozapine 25 mg 11/28/24 21:00 11/28/24 22:39 Clozapine 25 Mg Tab PO 12/06/24 23:59 25 mg HS AMADA Administration Dextrose/Water 25 ml 11/28/24 21:04 Dextrose 50% Syringe 50 Ml IVP PER PROTOCOL PRN Hypoglycemia Protocol Dextrose/Water 50 ml 11/28/24 21:04 Dextrose 50% Syringe 50 Ml IVP PER PROTOCOL PRN Hypoglycemia Protocol Digoxin 125 mcg 11/29/24 09:00 Digoxin 125 Mcg Tab PO DAILY [facility] Furosemide 20 mg 11/29/24 09:00 Furosemide 20 Mg Tab PO DAILY [facility] Gabapentin 200 mg 11/29/24 09:00 Gabapentin 100 Mg Cap PO DAILY [facility] Guaifenesin/Dextromethorphan 1 each 11/28/24 14:27 11/29/24 03:01 Guaifenesin-Dm 600/30mg 1 Each Tab.Er.12h PO 1 each BID PRN Administration cough & congestion Hyoscyamine 0.125 mg 11/28/24 14:27 11/29/24 06:35 Hyoscyamine Sulfate 0.125 Mg Tab SL 0.125 mg TID PRN Administration drooling Insulin Human Lispro 0 unit 11/28/24 21:15 11/29/24 06:34 Insulin Lispro (Humalog) 100 Unit/Ml 10 Ml Vl SQ Not Given ACHS [facility] Protocol Isosorbide Mononitrate 60 mg 11/29/24 09:00 Isosorbide Mononitrate Er 60 Mg Tab.Er.24h PO DAILY [facility] [place] Carbonate 150 mg 11/28/24 21:00 11/28/24 22:39 [place] Carbonate 150 Mg Cap PO 150 mg BID AMADA Administration Magnesium Hydroxide 2,400 mg 11/28/24 14:27 11/29/24 00:50 Magnesium Hydroxide 2,400 Mg/30 Ml Cup PO 2,400 mg DAILY PRN Administration Constipation Metformin HCl 250 mg 11/28/24 16:00 11/28/24 16:35 Metformin 500 Mg Tab PO 250 mg DAILY@1600 AMADA Administration Metoprolol Succinate 12.5 mg 11/29/24 09:00 Metoprolol Succinate (Er) 25 Mg Tab.Er.24h PO DAILY AMADA Multivitamins/Minerals 1 each 11/29/24 09:00 Vit A,C & F-Kgutzz-Qifrsqvh 1 Each Tab PO DAILY AMADA Nitroglycerin 0.4 mg 11/28/24 14:25 11/28/24 22:40 Nitroglycerin Sl Tabs 0.4 Mg Tab SUBLINGUAL 0.4 mg Q5M PRN Administration Chest Pain Non-Formulary Medication 24 mg 11/29/24 09:00 Deutetrabenazine [Austedo Xr] PO DAILY AMADA Potassium Chloride 10 meq 11/29/24 09:00 Potassium Chloride Er 10 Meq Tab.Er.Prt PO DAILY MAADA Senna/Docusate Sodium 2 each 11/28/24 21:00 11/28/24 22:39 Sennosides-Docusate Sodium 1 Each Tab PO 2 each HS AMADA Administration Intake and Output 11/28/24 11/29/24 11/29/24 22:59 06:59 14:59 Other: # Voids 2 6 Weight 70.76 kg 11/28/24 10:59 11/28/24 10:59
[2024-11-29] MEDS: DEUTETRABENAZINE 24 MG PO SCH (12:14)
--- NOTE | 2024-11-29 12:25 | CA ---
Dobutamine Stress Echocardiogram Report Diana Corey Age: 69 Gender: F : 1955 Exam Date: 11/29/2024 11:17 Exam Location: [facility] Ordering Physician: Corine Light Referring Physician: Nadege SUN Data Operations Manager: [place],, Technologist: Ht (in): 63 Wt (lb): 156 Procedure CPT: Indication: Chest Pain ICD-9 Codes: Rhythm: Patient History: Chest pain, hypertension Cardiac Medications: Medications in past 24 hours: Contrast: Definity Total Dose (mL): 2 Stress Results Protocol: Dobutamine Peak Dose (???g/kg/min): 30 Duration (min:sec): Atropine:(mg) Target HR: 129 Double Product: [id number] Resting HR: 62 Resting BP: 113 / 59 Peak HR: 111 Peak BP: 229 / 65 Max Predicted HR: 152 73 % Max Predicted HR Stress Summary: BP Response: Reason for Termination: Max medication Cardiac Symptoms: Chest pain #7 ECG Analysis Resting EKG: Stress EKG: Arrhythmia: Echo Analysis Base Echo Analysis: Low Echo Anaylsis: Peak Echo Analysis: Recovery Echo: MEASUREMENTS (Male/Female) Normal Values CONCLUSIONS Diagnosis recurrent chest discomfort Minimal ST segment abnormalities with dobutamine infusion Excellent augmentation of overall LV contractility without development of any wall motion normalities in a stepwise manner, during dobutamine infusion No arrhythmias No echocardiographic evidence for ischemia Dr. Jc Hoff MD (Electronically Signed) Final Date: 29 November 2024 12:24
--- NOTE | 2024-11-29 12:40 | CA ---
Transthoracic Echo Report Name: Diana Corey Age: 69 Gender: F : 1955 Exam Date: 11/29/2024 11:43 Exam Location: [facility] Ht (in): 63 Wt (lb): 156 Ordering Physician: Corine Light Attending/Referring Phys: [id number], Nadege Regulatory Compliance Engineer An Menendez RDCS Procedure CPT: Indications: Chest Pain Cardiac Hx: Technical Quality: Fair Contrast 1: Definity Total Dose (mL): 2 Contrast 2: Total Dose (mL): MEASUREMENTS (Male / Female) Normal Values 2D ECHO LV Diastolic Diameter PLAX 4.8 cm 4.2 - 5.9 / 3.9 - 5.3 cm LV Systolic Diameter PLAX 3.5 cm IVS Diastolic Thickness 0.6 cm 0.6 - 1.0 / 0.6 - 0.9 cm LVPW Diastolic Thickness 0.7 cm 0.6 - 1.0 / 0.6 - 0.9 cm LV Relative Wall Thickness 0.3 RV Internal Dim ED PLAX 2.9 cm LVOT Diameter 1.8 cm LA Systolic Diameter LX 3.1 cm 3.0 - 4.0 / 2.7 - 3.8 cm LV Diastolic Volume MOD BP 77.1 cm??? 67 - 155 / 56 - 104 cm??? LV Systolic Volume MOD BP 24.0 cm??? 22 - 58 / 19 - 49 cm??? LV Ejection Fraction MOD BP 68.9 % >= 55 % LV Cardiac Index MOD BP 2162.6 cm???/min???m??? LV Diastolic Volume MOD 4C 85.4 cm??? LV Systolic Volume MOD 4C 26.6 cm??? LV Ejection Fraction MOD 4C 68.9 % LV Cardiac Index MOD 4C 2393.7 cm???/min???m??? LV Diastolic Length 4C 7.5 cm LV Systolic Length 4C 5.8 cm LV Diastolic Volume MOD 2C 63.5 cm??? LV Systolic Volume MOD 2C 21.5 cm??? LV Ejection Fraction MOD 2C 66.2 % LV Cardiac Index MOD 2C 1712.3 cm???/min???m??? LV Diastolic Length 2C 6.8 cm LV Systolic Length 2C 5.7 cm LA Volume 35.6 cm??? 18 - 58 / 22 - 52 cm??? LA Volume Index 19.9 cm???/m??? 16 - 28 cm???/m??? DOPPLER MV Area PHT 3.3 cm??? Mitral E Point Velocity 67.5 cm/s Mitral A Point Velocity 84.8 cm/s Mitral E to A Ratio 0.8 MV Deceleration Time 232.0 ms TR Peak Velocity 234.8 cm/s TR Peak Gradient 22.1 mmHg FINDINGS Left Ventricle Left ventricular ejection fraction is estimated at 55-60 %. Normal Left ventricular size, wall thickness, systolic function with no obvious regional wall motion abnormalities. Right Ventricle Normal right ventricular size and function. Right ventricular systolic pressure within normal limits. Right Atrium Normal right atrial size. Left Atrium Normal left atrial size. Mitral Valve Structurally normal mitral valve. No mitral stenosis. Trace mitral regurgitation. Aortic Valve Trileaflet aortic valve. No aortic valve stenosis or regurgitation. Tricuspid Valve Structurally normal tricuspid valve. No tricuspid stenosis. Trace tricuspid regurgitation. Pulmonic Valve Structurally normal pulmonic valve. No pulmonic stenosis. Trace pulmonic regurgitation. Pericardium No pericardial effusion. Aorta Normal size aortic root and proximal ascending aorta. CONCLUSIONS Reason: Chest pain LVH with preserved systolic function No pericardial effusion Previewed by: Dr. Jc Hoff MD (Electronically Signed) Final Date: 29 November 2024 12:39
[2024-11-29 13:08] LABS: Glucose,Whole Blood 94 mg/dL (70-110)
[2024-11-29] MEDS: DIGOXIN 125 MCG TAB PO SCH (13:25)
[2024-11-29] MEDS: METOPROLOL SUCCINATE (ER) 25 MG TAB.ER.24H PO SCH (13:26)
[2024-11-29] MEDS: FUROSEMIDE 20 MG TAB PO SCH (13:26)
[2024-11-29] MEDS: VIT A,C & E-LUTEIN-MINERALS 1 EACH TAB PO SCH (14:41)
--- NOTE | 2024-11-29 14:47 | P.CN ---
Psychiatric Consult - . Consult date: 11/29/24 Consult:: 11/29/24 14:35 IDENTIFYING DATA: This patient is a 69-year-old female currently living in a adult foster home collecting disability. REASON FOR REFERRAL: Psychiatry was consulted for suicidal statements HISTORY OF PRESENT ILLNESS: The patient presented to the hospital due to chest pains that started roughly 3:00 in the morning. While in the hospital the patient had expressed suicidal thoughts and was placed on a one-to-one. Upon meeting the patient she notes that "I am suicidal". When asking her how she would do this she notes walked out into traffic. I said you will walk out in the traffic with your walker she started laughing. The patient had mentioned possible overdose and then reframed saying that she was not suicidal. She notes that she only gets suicidal when she is manic and notes that the last time that happened was over a month ago. She notes the reason that she said she was suicidal was because of the chest pain. The patient has a diagnosis of schizoaffective disorder currently being treated by Dr. Toscano. She notes low depression as well as anxiety. She notes no problems with sleep. She denies any problems with energy, appetite. She notes that her concentration is fair. She feels hopeless. She denies any crying or guilt or shame. She denies any auditory or visual hallucinations. She denies any paranoia. She denies any homicidal ideations or access to guns. PAST PSYCHIATRIC HISTORY: The patient has a a history of Schizoaffective disorder. Clozaril 125 mg at night 25 mg in the morning, [place] 300 mg twice daily, Celexa 40 mg daily. Past trials of Seroquel, Zyprexa and Geodon PAST MEDICAL HISTORY: as per EMR ALLERGIES: as per EMR. CHEMICAL DEPENDENCY HISTORY: as per HPI. FAMILY PSYCHIATRIC/SUBSTANCE USE HISTORY: Denied SOCIAL HISTORY: The patient was born and raised in [place] and notes that her childhood was "happy". She notes that she attended 1 year of college. She notes that she has been 4 times and has 2 adult children. 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 She is currently collecting disability and and in adult foster care. She denies any service. MENTAL STATUS EXAM: General Appearance: The patient presented older than her stated age. She was pleasant. It is noted that she had constant tongue sticking out and movements of the legs. She was in a hospital gown. Behavior: Patient is calmly lying in bed without any agitated behavior. Speech: Patient's speech is fluent and nonpressured. Mood/Affect: Patient reports their mood is "depressed", affect is congruent Suicidality/Homicidality: Patient denies having any suicidal or homicidal ideation intent or plan. Perceptions: Patient denies any visual hallucinations and denies any auditory hallucinations Though content/process: There is no evidence of any delusional thought content and thought process is linear and goal-directed. Memory and concentration: AOX3, grossly intact for the purposes of this session. Can spell "WORLD" backwards Judgment and insight: Fair/Fair Diagnosis Schizoaffective disorder bipolar type Tardive dyskinesia Assessment: 69-year-old female presenting to the hospital with chest pain per EKG inverted T waves was noted as well as cardiomegaly on other test. The patient has schizoaffective disorder. Per interviewing the patient she initially stated that she was suicidal but after further interview she recanted those statements. Additionally, she is only suicidal or homicidal when she is manic which the last episode was over a month ago. It is currently felt that the patient is not suicidal at this time but will be reevaluated tomorrow. Concerns over medication management include the Clozaril which can cause inverted T waves as well as endocarditis further consultation with the cardiology team is recommended to see if we need to make medication changes. It would be worthy to bring up that the patient is also on lithium and Celexa which are known to cause expansion in the QTc interval. If you need further recommendations on medications if you decide to discontinue these which she is stable on please reach out to this service and talk to the consulting psychiatrist. PLAN: -At this time patient DOES NOT meet criteria for inpatient psychiatric admission. -Would recommend the following medication changes/additions: Recommendations are to review the psychiatric medications with the Bedspread Inspector Clozaril 125 mg at night and 25 mg in the morning for schizoaffective disorder [place] 300 mg twice daily for mood Celexa 40 mg take 1 tablet daily for depression/anxiety -Can discontinue 1:1 sitter at this time as patient is not currently an imminent threat to themselves -grease worker to provide patient with outpatient mental health/psychiatry resources for appropriate follow up upon discharge -Communicated plan to patient's nurse -Will continue to follow along -Please contact with any questions.
--- NOTE | 2024-11-29 16:34 | P.PN ---
Progress Note - Text Progress Note Date: 11/29/24 Chief Complaint: Chest pain This is a pleasant 69-year-old patient of visiting physician Dr. Mackenzie. Resident of [facility] . Does use a walker last wheelchair. Chronic medical conditions include asthma diabetes mellitus type 2, hypertension, hyperlipidemia, hiatal hernia, peripheral neuropathy, schizoaffective disorder, GERD. Tardive dyskinesia Patient woken up from sleep around 2 AM with central chest pressure. Going down the left arm. Lasted for 1 to 2 hours. Denied any dizziness lightheadedness. No perspiration. Some shortness of breath. Patient has had some mild edema. Patient had tremors of the body off and off for years. In 2022 patient had a cardiac catheterization showed mild disease. Troponins negative November 29: Patient seen this morning. No further chest pain. Still feels suicidal. Sitter at the bedside after underwent dobutamine echocardiogram. That was negative for ischemia. Active Medications Albuterol Sulfate (Albuterol Nebulized 2.5 Mg/3 Ml) 2.5 mg INHALATION RT-TID PRN PRN Reason: Shortness Of Breath Apixaban (Apixaban 5 Mg Tab) 5 mg PO BID [facility]; Protocol Last Admin: 11/29/24 13:25 Dose: 5 mg Aspirin (Aspirin 81 Mg) 81 mg PO DAILY [facility] Last Admin: 11/29/24 08:20 Dose: 81 mg Atorvastatin Calcium (Atorvastatin 40 Mg Tab) 40 mg [address] [facility] Last Admin: 11/28/24 22:39 Dose: 40 mg Citalopram Hydrobromide (Citalopram Hydrobromide 20 Mg Tab) 40 mg PO DAILY [facility] Last Admin: 11/29/24 08:20 Dose: 40 mg Clozapine (Clozapine 100 Mg Tab) 100 mg PO [facility] Stop: 12/06/24 23:59 Last Admin: 11/28/24 22:39 Dose: 100 mg Clozapine (Clozapine 25 Mg Tab) 25 mg PO [facility] Stop: 12/06/24 23:59 Last Admin: 11/28/24 22:39 Dose: 25 mg Dextrose/Water (Dextrose 50% Syringe 50 Ml) 25 ml IVP PER PROTOCOL PRN; Protocol PRN Reason: Hypoglycemia Dextrose/Water (Dextrose 50% Syringe 50 Ml) 50 ml IVP PER PROTOCOL PRN; Protocol PRN Reason: Hypoglycemia Digoxin (Digoxin 125 Mcg Tab) 125 mcg PO DAILY [facility] Last Admin: 11/29/24 13:25 Dose: 125 mcg Furosemide (Furosemide 20 Mg Tab) 20 mg PO DAILY [facility] Last Admin: 11/29/24 13:26 Dose: Not Given Gabapentin (Gabapentin 100 Mg Cap) 200 mg PO DAILY [facility] Last Admin: 11/29/24 08:19 Dose: 200 mg Guaifenesin/Dextromethorphan (Guaifenesin-Dm 600/30mg 1 Each Tab.Er.12h) 1 each PO BID PRN PRN Reason: cough & congestion Last Admin: 11/29/24 03:01 Dose: 1 each Hyoscyamine (Hyoscyamine Sulfate 0.125 Mg Tab) 0.125 mg SL TID PRN PRN Reason: drooling Last Admin: 11/29/24 06:35 Dose: 0.125 mg Insulin Human Lispro (Insulin Lispro (Humalog) 100 Unit/Ml 10 Ml Vl) 0 unit SQ ACHS [facility]; Protocol Last Admin: 11/29/24 13:26 Dose: Not Given [place] Carbonate ([place] Carbonate 150 Mg Cap) 150 mg PO BID [facility] Last Admin: 11/29/24 08:19 Dose: 150 mg Losartan Potassium (Losartan 25 Mg Tab) 12.5 mg PO DAILY [facility] Last Admin: 11/29/24 08:20 Dose: 12.5 mg Magnesium Hydroxide (Magnesium Hydroxide 2,400 Mg/30 Ml Cup) 2,400 mg PO DAILY PRN PRN Reason: Constipation Last Admin: 11/29/24 00:50 Dose: 2,400 mg Metformin HCl (Metformin 500 Mg Tab) 250 mg PO DAILY@1600 [facility] Last Admin: 11/28/24 16:35 Dose: 250 mg Metoprolol Succinate (Metoprolol Succinate (Er) 25 Mg Tab.Er.24h) 12.5 mg PO DAILY [facility] Last Admin: 11/29/24 13:26 Dose: Not Given Multivitamins/Minerals (Vit A,C & R-Zdcxuw-Jcmjhubw 1 Each Tab) 1 each PO DAILY [facility] Last Admin: 11/29/24 14:41 Dose: 1 each Nitroglycerin (Nitroglycerin Sl Tabs 0.4 Mg Tab) 0.4 mg SUBLINGUAL Q5M PRN PRN Reason: Chest Pain Last Admin: 11/28/24 22:40 Dose: 0.4 mg Non-Formulary Medication (Deutetrabenazine [Austedo Xr]) 24 mg PO DAILY [facility] Last Admin: 11/29/24 12:14 Dose: Not Given Potassium Chloride (Potassium Chloride Er 10 Meq Tab.Er.Prt) 10 meq PO DAILY [facility] Last Admin: 11/29/24 08:19 Dose: 10 meq Senna/Docusate Sodium (Sennosides-Docusate Sodium 1 Each Tab) 2 each PO HS [facility] Last Admin: 11/28/24 22:39 Dose: 2 each Past medical history to include: COVID-19 positive diagnosed on 04/03/2021. Persistent bronchial asthma, diabe crystal mellitus type 2, hypertension, hyperlipidemia, obesity, hiatal hernia, idiopathic peripheral neuropathy, GERD, schizoaffective disorder bipolar type, atrial fibrillation, macular degeneration, uterine cancer with hysterectomy, tardive dyskinesia, use a walker Social history: Lives at [facility]: [facility] Mijares, does use a walker. Stopped drinking alcohol in 2006. Never smoked. Physical examination: VITAL SIGNS: 98.3, 58, 17, 112 x 73, 94% room air GENERAL: BMI 27.6, sitting up in bed, EYES: Pupils equal. Conjunctiva normal. HEENT: External appearance of nose and ears normal, oral cavity grossly normal. Missing several teeth NECK: JVD not raised; masses not palpable. HEART: First and second heart sounds are normal; no edema. LUNGS: Respiratory rate normal. Lungs fair entry ABDOMEN: Soft, nontender, liver spleen not palpable, no masses palpable. PSYCH: Alert and oriented x3; mood and affect anxious. MUSCULOSKELETAL:No Clubbing/cyanosis;muscles-grossly intact Neurological: Dyskinetic movements. Some thick speech INVESTIGATIONS, reviewed in the clinical context: 2D echocardiogram: EF 55 to 60%. Dobutamine stress echocardiogram: Negative November 28, 2024: White count 6.3 hemoglobin 12.4 platelets 222 sodium 139 potassium 3.7 creatinine 0.65 Troponin I less than 0.012 proBNP 176 Digoxin 0.7 lithium 0.7 EKG tracing personally reviewed by me-abnormal inverted T waves Chest x-ray film personally reviewed by me-cardiomegaly Assessment and plan: -Chest pain with multiple risk factors. Patient had a cardiac catheterization in 2022 showing mild disease. Some EKG changes. Negative troponin. Aspirin. Eliquis-hold for now. Dobutamine stress echocardiogram: Negative for ischemia Cardiology following -Moderate persistent asthma: Stable. -Diabetes mellitus type 2, on oral hypoglycemic. metformin . Follow Accu-Cheks -Essential Hypertension Lopressor 12.5 by mouth twice a day -Hyperlipidemia Lipitor 10 mg daily at bedtime -Diabetic peripheral neuropathy Neurontin 200 mg daily -GERD Tums when necessary -Paroxysmal atrial fibrillation currently sinus rhythm Toprol-XL 12.5 mg a day. Eliquis 5 mg twice a day- on hold -Schizoaffective disorder Clozaril 125 mg at bedtime Celexa 40 mg daily. [place] -Chronic urinary stress incontinence Ditropan XL 5 mg twice a day -Tardive dyskinesia due to medications - Suicidal ideations. Sitter in place. Psychiatry consulted -Chronic gait dysfunction, uses a walker/wheelchair at baseline Fall precautions -Full code Negative stress test. Psychiatry consulted. Discussed with patient. Past Medical History Past Medical History: Atrial Fibrillation, Coronary Artery Disease (CAD), Cancer, Heart Failure, COPD, CVA/TIA, Diabetes Mellitus, Eye Disorder, GERD/Reflux, Hyperlipidemia, Hypertension Additional Past Medical History / Comment(s): NIDDM type II, neuropathy bilateral feet, bronchial asthma, home oxygen prn, obesity, occasional lower extremity edema, past L axillae cellulitis/abscess-lengthy heal, shingles/staph, R eye wet macular degeneration/ L eye dry macular degeneration, uterine cancer with hysterectomy, TIA, hiatal hernia, uterine cancer with hysterectomy, tardive dyskinesia r/t psych medication, migraines, sinus problems, paroxysmal atrial fibrillation, past urinary retention w/ past chronic mackenzie, UTIs. History of Any Multi-Drug Resistant Organisms: None Reported Past Surgical History: Adenoidectomy, Cholecystectomy, Ear Surgery, Heart Catheterization, Hysterectomy, Tonsillectomy Additional Past Surgical History / Comment(s): I & D L axillae, L eye surgery for lazy eye, bilateral cataract removal, bilateral myringotomy/tubes, colonoscopy, bronchoscopy, cervical surgery Past Anesthesia/Blood Transfusion Reactions: No Reported Reaction Past Psychological History: Anxiety, Depression, Schizoaffective Disorder Additional Psychological History / Comment(s): Pt resides at [facility]. She uses a walker to ambulate. She gets to [facility] by bus. She has a glucometer. She has oxygen which she wears prn. Smoking Status: Never smoker Past Alcohol Use History: None Reported Additional Past Alcohol Use History / Comment(s): Pt quit drinking in 2006. Past Drug Use History: None Reported
[2024-11-29 17:32] LABS: Glucose,Whole Blood 116 mg/dL (70-110)
[2024-11-29] MEDS: ALBUTEROL NEBULIZED 2.5 MG/3 ML INHALATION PRN (20:03)
[2024-11-29 20:22] LABS: Glucose,Whole Blood 159 mg/dL (70-110)
[2024-11-30 06:25] LABS: Glucose,Whole Blood 124 mg/dL (70-110)
--- NOTE | 2024-11-30 11:12 | P.PN ---
Progress Note - Text Progress Note Date: 11/30/24 Yesterday, patient underwent dobutamine stress echocardiogram which was negative and patient was cleared for discharge from cardiology. She was seen by psychiatry and psychiatry is requesting that patient's psychiatric medications be reviewed. Patient was seen and examined yesterday and her medications were reviewed at that time. Dr. Hoff is very well aware of the effects that the patient's psychiatric medications can cause on EKG. Cardiology does not plan to make any changes to the patient's psychiatric medications. If psychiatrist feels that this is necessary, please make appropriate adjustments.
[2024-11-30 12:11] LABS: Glucose,Whole Blood 103 mg/dL (70-110)
--- NOTE | 2024-11-30 15:26 | P.CN ---
Psychiatric Consult - . Consult date: 11/30/24 Consult:: 11/30/24 15:19 Interval follow-up consult: 11/29/24 14:35 IDENTIFYING DATA: This patient is a 69-year-old female currently living in a adult foster home collecting disability. REASON FOR REFERRAL: Psychiatry was consulted for suicidal statements HISTORY OF PRESENT ILLNESS: Nursing staff had contacted the unit noting that the patient started stating suicidal thoughts again. Upon going up interviewing the patient she notes a plan of overdosing. Yesterday when asking about suicide she had stated that she would walk out from the bus with her walker however recanted that. Today she notes that "all overdose because I do not want to live anymore". She notes that her intent on acting on her 12/31 with 10 actually going through with the suicide attempt. She currently rates her depression and anxiety 10 with 10 being worst. The patient notes that she slept. Initially patient notes that her energy was nonexistent but after further prompting noted that it was okay". She states that she has no appetite but it is noted that she asked for peanut butter and crackers when I was present and ate her lunch. She notes that she has good concentration. Prior to meeting the patient discussed with nursing staff and cardiology had discussed that they were concerned with the Clozaril but gave leave to make adjustments by psychiatry if they needed to. MENTAL STATUS EXAM: General Appearance: The patient presented older than her stated age. She was pleasant. It is noted that she had constant tongue sticking out and movements of the legs. She was in a hospital gown. Behavior: Patient is calmly lying in bed without any agitated behavior. Speech: Patient's speech is fluent and nonpressured. Mood/Affect: Patient reports their mood is "depressed", affect is congruent Suicidality/Homicidality: Patient denies having any suicidal or homicidal ideation intent or plan. Perceptions: Patient denies any visual hallucinations and denies any auditory hallucinations Though content/process: There is no evidence of any delusional thought content and thought process is linear and goal-directed. Memory and concentration: AOX3, grossly intact for the purposes of this session. Can spell "WORLD" backwards Judgment and insight: Fair/Fair Diagnosis Schizoaffective disorder bipolar type Tardive dyskinesia Assessment: At this point it is felt that the patient is expressing suicidal thoughts with a deadly plan and 4 prior suicide attempts that she requires inpatient geriatric psychiatric treatment. The patient will not be able to be transferred down to [address] due to her complicated medical presentation. Additionally it is felt that the patient should be CERTed by the hospitalist for transportation needs to the psychiatric hospital. Finally the patient's been stable on this regimen of medications for over 2 years if cardiology does not find it a problem no recommendations for changing medications at this time. PLAN: -At this time patient Does meet criteria for inpatient psychiatric admission. -Would recommend the following medication changes/additions: Continue Clozaril 125 mg at night and 25 mg in the morning for schizoaffective disorder [place] 300 mg twice daily for mood Celexa 40 mg take 1 tablet daily for depression/anxiety - Restart 1:1 sitter at this time as patient is not currently an imminent threat to themselves -Communicated plan to patient's nurse -Social work should start working on placing the patient in a geriatric psychiatric facility once medically stable. -Will continue to follow along -Please contact with any questions.
[2024-11-30 17:34] LABS: Glucose,Whole Blood 151 mg/dL (70-110)
--- NOTE | 2024-11-30 19:57 | P.PN ---
Progress Note - Text Progress Note Date: 11/30/24 Chief Complaint: Chest pain This is a pleasant 69-year-old patient of visiting physician Dr. Mackenzie. Resident of [facility] . Does use a walker last wheelchair. Chronic medical conditions include asthma diabetes mellitus type 2, hypertension, hyperlipidemia, hiatal hernia, peripheral neuropathy, schizoaffective disorder, GERD. Tardive dyskinesia Patient woken up from sleep around 2 AM with central chest pressure. Going down the left arm. Lasted for 1 to 2 hours. Denied any dizziness lightheadedness. No perspiration. Some shortness of breath. Patient has had some mild edema. Patient had tremors of the body off and off for years. In 2022 patient had a cardiac catheterization showed mild disease. Troponins negative November 29: Patient seen this morning. No further chest pain. Still feels suicidal. Sitter at the bedside after underwent dobutamine echocardiogram. That was negative for ischemia. November 30: Patient seen this morning. Sleepy. Did feel suicidal. Told the nurse to inform psychiatry. Patient seen by the [facility] psychiatrist. Suggested the patient to go to [facility]. Patient eating 100% of her meals. Active Medications Albuterol Sulfate (Albuterol Nebulized 2.5 Mg/3 Ml) 2.5 mg INHALATION RT-TID PRN PRN Reason: Shortness Of Breath Last Admin: 11/30/24 18:09 Dose: 2.5 mg Apixaban (Apixaban 5 Mg Tab) 5 mg PO BID [facility]; Protocol Last Admin: 11/30/24 09:50 Dose: 5 mg Aspirin (Aspirin 81 Mg) 81 mg PO DAILY [facility] Last Admin: 11/30/24 09:49 Dose: 81 mg Atorvastatin Calcium (Atorvastatin 40 Mg Tab) 40 mg PO [facility] Last Admin: 11/29/24 21:10 Dose: 40 mg Citalopram Hydrobromide (Citalopram Hydrobromide 20 Mg Tab) 40 mg PO DAILY [facility] Last Admin: 11/30/24 09:49 Dose: 40 mg Clozapine (Clozapine 100 Mg Tab) 100 mg PO [facility] Stop: 12/06/24 23:59 Last Admin: 11/29/24 21:10 Dose: 100 mg Clozapine (Clozapine 25 Mg Tab) 25 mg PO [facility] Stop: 12/06/24 23:59 Last Admin: 11/29/24 21:10 Dose: 25 mg Dextrose/Water (Dextrose 50% Syringe 50 Ml) 25 ml IVP PER PROTOCOL PRN; Protocol PRN Reason: Hypoglycemia Dextrose/Water (Dextrose 50% Syringe 50 Ml) 50 ml IVP PER PROTOCOL PRN; Protocol PRN Reason: Hypoglycemia Digoxin (Digoxin 125 Mcg Tab) 125 mcg PO DAILY [facility] Last Admin: 11/30/24 09:49 Dose: 125 mcg Furosemide (Furosemide 20 Mg Tab) 20 mg PO DAILY [facility] Last Admin: 11/30/24 09:50 Dose: 20 mg Gabapentin (Gabapentin 100 Mg Cap) 200 mg PO DAILY [facility] Last Admin: 11/30/24 09:49 Dose: 200 mg Guaifenesin/Dextromethorphan (Guaifenesin-Dm 600/30mg 1 Each Tab.Er.12h) 1 each PO BID PRN PRN Reason: cough & congestion Last Admin: 11/29/24 03:01 Dose: 1 each Hyoscyamine (Hyoscyamine Sulfate 0.125 Mg Tab) 0.125 mg SL TID PRN PRN Reason: drooling Last Admin: 11/29/24 06:35 Dose: 0.125 mg Insulin Human Lispro (Insulin Lispro (Humalog) 100 Unit/Ml 10 Ml Vl) 0 unit SQ ACHS [facility]; Protocol Last Admin: 11/30/24 17:43 Dose: 1 unit [place] Carbonate ([place] Carbonate 150 Mg Cap) 150 mg PO BID [facility] Last Admin: 11/30/24 09:49 Dose: 150 mg Losartan Potassium (Losartan 25 Mg Tab) 12.5 mg PO DAILY [facility] Last Admin: 11/30/24 09:50 Dose: 12.5 mg Magnesium Hydroxide (Magnesium Hydroxide 2,400 Mg/30 Ml Cup) 2,400 mg PO DAILY PRN PRN Reason: Constipation Last Admin: 11/29/24 00:50 Dose: 2,400 mg Metformin HCl (Metformin 500 Mg Tab) 250 mg PO DAILY@1600 [facility] Last Admin: 11/30/24 15:08 Dose: 250 mg Metoprolol Succinate (Metoprolol Succinate (Er) 25 Mg Tab.Er.24h) 12.5 mg PO DAILY [facility] Last Admin: 11/30/24 09:51 Dose: 12.5 mg Multivitamins/Minerals (Vit A,C & D-Dhyxtz-Lmpackmb 1 Each Tab) 1 each PO DAILY [facility] Last Admin: 11/30/24 09:49 Dose: 1 each Nitroglycerin (Nitroglycerin Sl Tabs 0.4 Mg Tab) 0.4 mg SUBLINGUAL Q5M PRN PRN Reason: Chest Pain Last Admin: 11/28/24 22:40 Dose: 0.4 mg Non-Formulary Medication (Deutetrabenazine [Austedo Xr]) 24 mg PO DAILY [facility] Last Admin: 11/30/24 09:56 Dose: Not Given Potassium Chloride (Potassium Chloride Er 10 Meq Tab.Er.Prt) 10 meq PO DAILY [facility] Last Admin: 11/30/24 09:50 Dose: 10 meq Senna/Docusate Sodium (Sennosides-Docusate Sodium 1 Each Tab) 2 each PO HS [facility] Last Admin: 11/29/24 21:10 Dose: 2 each Past medical history to include: COVID-19 positive diagnosed on 04/03/2021. Persistent bronchial asthma, diabetes mellitus type 2, hypertension, hyperlipidemia, obesity, hiatal hernia, idiopathic peripheral neuropathy, GERD, schizoaffective disorder bipolar type, atrial fibrillation, macular degeneration, uterine cancer with hysterectomy, tardive dyskinesia, use a walker Social history: Lives at [facility]: Rex Mijares, does use a walker. Stopped drinking alcohol in 2006. Never smoked. Physical examination: VITAL SIGNS: 97.4, 68, 17, 94 x 58, 96% room air GENERAL: BMI 27.6, resting in bed EYES: Pupils equal. Conjunctiva normal. HEENT: External appearance of nose and ears normal, oral cavity grossly normal. Missing several teeth NECK: JVD not raised; masses not palpable. HEART: First and second heart sounds are normal; no edema. LUNGS: Respiratory rate normal. Lungs fair entry ABDOMEN: Soft, nontender, liver spleen not palpable, no masses palpable. PSYCH: Answering questions. Appropriately. Bit depressed MUSCULOSKELETAL:No Clubbing/cyanosis;muscles-grossly intact Neurological: Dyskinetic movements. Some thick speech INVESTIGATIONS, reviewed in the clinical context: 2D echocardiogram: EF 55 to 60%. Dobutamine stress echocardiogram: Negative November 28, 2024: White count 6.3 hemoglobin 12.4 platelets 222 sodium 139 potassium 3.7 creatinine 0.65 Troponin I less than 0.012 proBNP 176 Digoxin 0.7 lithium 0.7 EKG tracing personally reviewed by me-abnormal inverted T waves Chest x-ray film personally reviewed by me-cardiomegaly Assessment and plan: -Chest pain with multiple risk factors. Patient had a cardiac catheterization in 2022 showing mild disease. Some EKG changes. Negative troponin. Aspirin. Eliquis-hold for now. Dobutamine stress echocardiogram: Negative for ischemia Cardiology following -Moderate persistent asthma: Stable. -Diabetes mellitus type 2, on oral hypoglycemic. metformin . Follow Accu-Cheks -Essential Hypertension Lopressor 12.5 by mouth twice a day -Hyperlipidemia Lipitor 10 mg daily at bedtime -Diabetic peripheral neuropathy Neurontin 200 mg daily -GERD Tums when necessary -Paroxysmal atrial fibrillation currently sinus rhythm Toprol-XL 12.5 mg a day. Eliquis 5 mg twice a day- on hold -Schizoaffective disorder, bipolar type [suicidal ideations persist] Clozaril 125 mg at bedtime Celexa 40 mg daily. [place] Being followed by psychiatry. For [place] psychiatry unit per psychiatry -Chronic urinary stress incontinence Ditropan XL 5 mg twice a day -Tardive dyskinesia due to medications -Chronic gait dysfunction, uses a walker/wheelchair at baseline Fall precautions -Full code Per psychiatry patient to be transferred to [place] psychiatric unit. Patient is medically stable for same. Past Medical History Past Medical History: Atrial Fibrillation, Coronary Artery Disease (CAD), Cancer, Heart Failure, COPD, CVA/TIA, Diabetes Mellitus, Eye Disorder, GERD/Reflux, Hyperlipidemia, Hypertension Additional Past Medical History / Comment(s): NIDDM type II, neuropathy bilateral feet, bronchial asthma, home oxygen prn, obesity, occasional lower extremity edema, past L axillae cellulitis/abscess-lengthy heal, shingles/staph, R eye wet macular degeneration/ L eye dry macular degeneration, uterine cancer with hysterectomy, TIA, hiatal hernia, uterine cancer with hysterectomy, tardive dyskinesia r/t psych medication, migraines, sinus problems, paroxysmal atrial fibrillation, past urinary retention w/ past chronic mackenzie, UTIs. History of Any Multi-Drug Resistant Organisms: None Reported Past Surgical History: Adenoidectomy, Cholecystectomy, Ear Surgery, Heart Catheterization, Hysterectomy, Tonsillectomy Additional Past Surgical History / Comment(s): I & D L axillae, L eye surgery for lazy eye, bilateral cataract removal, bilateral myringotomy/tubes, colonoscopy, bronchoscopy, cervical surgery Past Anesthesia/Blood Transfusion Reactions: No Reported Reaction Past Psychological History: Anxiety, Depression, Schizoaffective Disorder Additional Psychological History / Comment(s): Pt resides at [facility]. She uses a walker to ambulate. She gets to [facility] by bus. She has a glucometer. She has oxygen which she wears prn. Smoking Status: Never smoker Past Alcohol Use History: None Reported Additional Past Alcohol Use History / Comment(s): Pt quit drinking in 2006. Past Drug Use History: None Reported
[2024-11-30 20:21] LABS: Glucose,Whole Blood 136 mg/dL (70-110)
[2024-11-30] MEDS: ONDANSETRON ODT 4 MG TAB PO PRN (22:19)
[2024-12-01 06:40] LABS: Glucose,Whole Blood 123 mg/dL (70-110)
[2024-12-01 12:14] LABS: Glucose,Whole Blood 112 mg/dL (70-110)
--- NOTE | 2024-12-01 15:55 | P.DS ---
Providers Date of admission: 11/28/24 14:28 Expected date of discharge: 12/01/24 Attending physician: Marvin Elizabeth Consults: 11/28/24 14:25 Consult Physician Urgent Consulting Provider: Jasper López Consult Reason/Comments: cp Do you want consulting provider notified?: Yes 11/28/24 16:42 Consult Physician Routine Consulting Provider: Psychiatry - [facility] Psychiatry Consult Reason/Comments: Suicidal Do you want consulting provider notified?: Yes Primary care physician: Ced Mackenzie MD Hospital Course: Chief Complaint: Chest pain This is a pleasant 69-year-old patient of visiting physician Dr. Mackenzie. Resident of [facility] . Does use a walker last wheelchair. Chronic medical conditions include asthma diabetes mellitus type 2, hypertension, hyperlipidemia, hiatal hernia, peripheral neuropathy, schizoaffective disorder, GERD. Tardive dyskinesia Patient woken up from sleep around 2 AM with central chest pressure. Going down the left arm. Lasted for 1 to 2 hours. Denied any dizziness lightheadedness. No perspiration. Some shortness of breath. Patient has had some mild edema. Patient had tremors of the body off and off for years. In 2022 patient had a cardiac catheterization showed mild disease. Troponins negative November 29: Patient seen this morning. No further chest pain. Still feels suicidal. Sitter at the bedside after underwent dobutamine echocardiogram. That was negative for ischemia. November 30: Patient seen this morning. Sleepy. Did feel suicidal. Told the nurse to inform psychiatry. Patient seen by the [facility] psychiatrist. Suggested the patient to go to [facility]. Patient eating 100% of her meals. December 01: Saw the patient this morning. Still feels suicidal. Spoke to the nurse outreach case manager.cert was filled out. Patient eating fair. Getting transferred to [facility] psychiatry unit Discussion and discharge planning more than 35 minutes Past medical history to include: COVID-19 positive diagnosed on 04/03/2021. Persistent bronchial asthma, diabetes mellitus type 2, hypertension, hyperlipidemia, obesity, hiatal hernia, idiopathic peripheral neuropathy, GERD, schizoaffective disorder bipolar type, atrial fibrillation, macular degeneration, uterine cancer with hysterectomy, tardive dyskinesia, use a walker Social history: Lives at [facility]: Rex Mijares, does use a walker. Stopped drinking alcohol in 2006. Never smoked. Physical examination: VITAL SIGNS: 100, 77, 16, 100/57, 94% room air GENERAL: BMI 27.6, resting in bed EYES: Pupils equal. Conjunctiva normal. HEENT: External appearance of nose and ears normal, oral cavity grossly normal. Missing several teeth NECK: JVD not raised; masses not palpable. HEART: First and second heart sounds are normal; no edema. LUNGS: Respiratory rate normal. Lungs fair entry ABDOMEN: Soft, nontender, liver spleen not palpable, no masses palpable. PSYCH: Answering questions. Appropriately. States she is suicidal MUSCULOSKELETAL:No Clubbing/cyanosis;muscles-grossly intact Neurological: Dyskinetic movements. S thick speech INVESTIGATIONS, reviewed in the clinical context: 2D echocardiogram: EF 55 to 60%. Dobutamine stress echocardiogram: Negative November 28, 2024: White count 6.3 hemoglobin 12.4 platelets 222 sodium 139 potassium 3.7 creatinine 0.65 Troponin I less than 0.012 proBNP 176 Digoxin 0.7 lithium 0.7 EKG tracing personally reviewed by me-abnormal inverted T waves Chest x-ray film personally reviewed by me-cardiomegaly Assessment and plan: -Chest pain with multiple risk factors. Patient had a cardiac catheterization in 2022 showing mild disease. Some EKG changes. Negative troponin. Aspirin. Eliquis-. Dobutamine stress echocardiogram: Negative for ischemia Cardiology saw the patient -Moderate persistent asthma: Stable. -Diabetes mellitus type 2, on oral hypoglycemic. metformin . Follow Accu-Cheks -Essential Hypertension Lopressor 12.5 by mouth twice a day. Losartan -Hyperlipidemia Lipitor 10 mg daily at bedtime -Diabetic peripheral neuropathy Neurontin 200 mg daily -GERD Tums when necessary -Paroxysmal atrial fibrillation currently sinus rhythm Toprol-XL 12.5 mg a day. Eliquis 5 mg twice a day -Schizoaffective disorder, bipolar type [suicidal ideations persist] Clozaril 125 mg at bedtime Celexa 40 mg daily. [place] Being followed by psychiatry. For [facility] unit per psychiatry -Chronic urinary stress incontinence Ditropan XL 5 mg twice a day -Tardive dyskinesia due to medications -Chronic gait dysfunction, uses a walker/wheelchair at baseline Fall precautions -Full code Disposition: [facility] Past Medical History Past Medical History: Atrial Fibrillation, Coronary Artery Disease (CAD), Cancer, Heart Failure, COPD, CVA/TIA, Diabetes Mellitus, Eye Disorder, GERD/Reflux, Hyperlipidemia, Hypertension Additional Past Medical History / Comment(s): NIDDM type II, neuropathy bilateral feet, bronchial asthma, home oxygen prn, obesity, occasional lower extremity edema, past L axillae cellulitis/abscess-lengthy heal, shingles/staph, R eye wet macular degeneration/ L eye dry macular degeneration, uterine cancer with hysterectomy, TIA, hiatal hernia, uterine cancer with hysterectomy, tardive dyskinesia r/t psych medication, migraines, sinus problems, paroxysmal atrial fibrillation, past urinary retention w/ past chronic mackenzie, UTIs. History of Any Multi-Drug Resistant Organisms: None Reported Past Surgical History: Adenoidectomy, Cholecystectomy, Ear Surgery, Heart Catheterization, Hysterectomy, Tonsillectomy Additional Past Surgical History / Comment(s): I & D L axillae, L eye surgery for lazy eye, bilateral cataract removal, bilateral myringotomy/tubes, colonoscopy, bronchoscopy, cervical surgery Past Anesthesia/Blood Transfusion Reactions: No Reported Reaction Past Psychological History: Anxiety, Depression, Schizoaffective Disorder Additional Psychological History / Comment(s): Pt resides at [facility]. She uses a walker to ambulate. She gets to [facility] by bus. She has a glucometer. She has oxygen which she wears prn. Smoking Status: Never smoker Past Alcohol Use History: None Reported Additional Past Alcohol Use History / Comment(s): Pt quit drinking in 2006. Past Drug Use History: None Reported Plan - Discharge Summary New Discharge Prescriptions: Discontinued Isosorbide Mononitrate ER [Imdur] 60 mg PO DAILY No Action Gabapentin [Neurontin] 200 mg PO DAILY metFORMIN HCL ER [Glucophage XR] 500 mg PO Q2D@1600 Vit C/E/Zn/Coppr/Lutein/Zeaxan [Preservision Areds 2 Softgel] 1 cap PO DAILY Apixaban [Eliquis] 5 mg PO BID cloZAPine [Clozaril] 100 mg PO HS Metoprolol Succinate (ER) [Toprol XL] 12.5 mg PO DAILY Albuterol Nebulized [Ventolin Nebulized] 2.5 mg INHALATION RT-TID PRN PRN Reason: Shortness Of Breath Furosemide [Lasix] 20 mg PO DAILY guaiFENesin-DM 600/30MG [Mucinex Dm] 1 tab PO BID PRN PRN Reason: cough & congestion Sennosides/Docusate Sodium [Senna Plus 8.6-50 mg Tablet] 2 tab PO HS Digoxin [Lanoxin] 125 mcg PO DAILY [place] Carbonate 150 mg PO BID 30 Days #60 cap Citalopram Hydrobromide [CeleXA] 40 mg PO DAILY Potassium Chloride [Potassium Chloride ER (K-Dur GEQ)] 10 meq PO DAILY Atorvastatin [Lipitor] 40 mg PO HS #30 tab cloZAPine [Clozaril] 25 mg PO HS Deutetrabenazine [Austedo Xr] 24 mg PO DAILY Hyoscyamine Sulfate [Hyoscyamine Sulfate SL] 0.125 mg SUBLINGUAL TID PRN PRN Reason: drooling Magnesium Hydroxide [Milk of Magnesia] 2,400 mg PO DAILY PRN PRN Reason: Constipation Discharge Medication List Gabapentin [Neurontin] 200 mg PO DAILY 05/19/19 [History] metFORMIN HCL ER [Glucophage XR] 500 mg PO Q2D@1600 05/19/19 [History] Vit C/E/Zn/Coppr/Lutein/Zeaxan [Preservision Areds 2 Softgel] 1 cap PO DAILY 04/24/20 [History] Apixaban [Eliquis] 5 mg PO BID 05/07/21 [History] Digoxin [Lanoxin] 125 mcg PO DAILY 05/07/21 [History] [place] Carbonate 150 mg PO BID 30 Days #60 cap 08/20/21 [Rx] cloZAPine [Clozaril] 100 mg PO HS 09/03/21 [History] Citalopram Hydrobromide [CeleXA] 40 mg PO DAILY 10/07/21 [History] Metoprolol Succinate (ER) [Toprol XL] 12.5 mg PO DAILY 12/21/22 [History] Potassium Chloride [Potassium Chloride ER (K-Dur GEQ)] 10 meq PO DAILY 12/21/22 [History] Atorvastatin [Lipitor] 40 mg PO HS #30 tab 12/22/22 [Rx] Albuterol Nebulized [Ventolin Nebulized] 2.5 mg INHALATION RT-TID PRN 11/28/24 [History] Deutetrabenazine [Austedo Xr] 24 mg PO DAILY 11/28/24 [History] Furosemide [Lasix] 20 mg PO DAILY 11/28/24 [History] Hyoscyamine Sulfate [Hyoscyamine Sulfate SL] 0.125 mg SUBLINGUAL TID PRN 11/28/24 [History] Magnesium Hydroxide [Milk of Magnesia] 2,400 mg PO DAILY PRN 11/28/24 [History] Sennosides/Docusate Sodium [Senna Plus 8.6-50 mg Tablet] 2 tab PO HS 11/28/24 [History] cloZAPine [Clozaril] 25 mg PO HS 11/28/24 [History] guaiFENesin-DM 600/30MG [Mucinex Dm] 1 tab PO BID PRN 11/28/24 [History] Follow up Appointment(s)/Referral(s): Ced Mackenzie MD [Primary Care Provider] - 1-2 days
[2024-12-01 17:33] LABS: Glucose,Whole Blood 142 mg/dL (70-110)
[2024-12-01 19:34] LABS: Glucose,Whole Blood 132 mg/dL (70-110)
[2024-12-01 20:08] VITALS: BP 102/68; PULSE 68; RESP 18; TEMP 99.5
== END 2024-12-01 22:00 ==
LOC: EC 10:44 → 1SOBS 14:27 → OBSVTOIN 14:28 → INTOOBSV 14:28 → 1SOBS 14:44 → 6NMEDSUR 20:55
PROVIDERS: ADMIT Hospitalist; ATTEND Hospitalist
DX: R07.89 Other chest pain (principal); F25.0 Schizoaffective disorder, bipolar type; G24.01 Drug induced subacute dyskinesia; R45.851 Suicidal ideations; I25.10 Atherosclerotic heart disease of native coronary artery without angina pectoris; K21.9 Gastro-esophageal reflux disease without esophagitis; E78.5 Hyperlipidemia, unspecified; I11.0 Hypertensive heart disease with heart failure; I50.9 Heart failure, unspecified; E11.42 Type 2 diabetes mellitus with diabetic polyneuropathy; I48.0 Paroxysmal atrial fibrillation; F41.9 Anxiety disorder, unspecified; J44.89 Other specified chronic obstructive pulmonary disease; J45.40 Moderate persistent asthma, uncomplicated; N39.3 Stress incontinence (female) (male); R26.9 Unspecified abnormalities of gait and mobility; E66.9 Obesity, unspecified; Z68.27 Body mass index [BMI] 27.0-27.9, adult; Z85.42 Personal history of malignant neoplasm of other parts of uterus; Z86.16 Personal history of COVID-19; Z86.73 Personal history of transient ischemic attack (TIA), and cerebral infarction without residual deficits; Z91.51 Personal history of suicidal behavior; Z79.01 Long term (current) use of anticoagulants; Z79.84 Long term (current) use of oral hypoglycemic drugs; Z79.899 Other long term (current) drug therapy; Z88.5 Allergy status to narcotic agent; Z82.49 Family history of ischemic heart disease and other diseases of the circulatory system
CPT/HCPCS: 99285; 36415; 94640 ×3; 93005; 83880; 80061; 80053; 80162; 80178; 83735; 84484; 85025; 85610; 85730; 71046; G0378 ×4; C8929; C8930; J1250; S0136 ×8; Q9957; 93306; 93351